=== PATIENT | male | born 1945 | race Caucasian/White ===

== ENCOUNTER → 2016-09-28 | Outpatient (CLI) | payer MEDICARE, BC ==
[2016-09-28 13:25] LABS: INR 2.1 (<1.1); Prothrombin Time 20.5 sec (9.0-12.0)
[2016-09-28 14:56] LABS: Hepatitis C Virus IgG Index 0.06
[2016-09-28 15:35] LABS: Hepatitis C Virus IgG Ab Negative (Negative)
== END | disposition home or self-care (01) ==
LOC: LABWHC1 12:52
PROVIDERS: ATTEND Family Medicine
DX: E29.1 Testicular hypofunction (principal); Z79.01 Long term (current) use of anticoagulants; Z72.9 Problem related to lifestyle, unspecified
CPT/HCPCS: 36415; 84403; 85610; 86803

== ENCOUNTER → 2016-11-17 | Outpatient (CLI) | payer MEDICARE, BC ==
--- NOTE | 2016-11-17 08:35 | US ---
EXAMINATION TYPE: US duplex aorta DATE OF EXAM: 11/17/2016 7:28 AM COMPARISON: NONE CLINICAL HISTORY: Z13.16 encounter for screening for cardiovascular. EXAM MEASUREMENTS: Abdominal Aorta: Proximal: 2.4 x 2.4cm Mid: 1.7 x 1.9cm Distal: obscured by overlying bowel Bifurcation: obscured by overlying bowel Technical limitations, limited examination. No evidence of AAA at this time, as visualized. Distal/bi furcation obscured by overlying bowel content IMPRESSION: WITHIN THE LIMITS OF THIS EXAMINATION, NO AORTIC ANEURYSM IS IDENTIFIED.
== END | disposition home or self-care (01) ==
LOC: RADUSWWP 07:01
PROVIDERS: ATTEND Family Medicine
DX: Z13.6 Encounter for screening for cardiovascular disorders (principal)
CPT/HCPCS: 93979

== ENCOUNTER → 2016-11-23 | Outpatient (CLI) | payer MEDICARE, BC ==
[2016-11-23 12:44] LABS: INR 2.1 (<1.1)
[2016-11-23 22:04] LABS: Hemoglobin A1C 7.5 % (4.2-6.1)
== END ==
LOC: LABWHC1 12:20
PROVIDERS: ATTEND Family Medicine
DX: E11.9 Type 2 diabetes mellitus without complications (principal); E03.9 Hypothyroidism, unspecified; E29.1 Testicular hypofunction; Z51.81 Encounter for therapeutic drug level monitoring; Z79.01 Long term (current) use of anticoagulants
CPT/HCPCS: 36415; 83036; 84403; 84439; 84443; 85610

== ENCOUNTER → 2017-02-19 | Outpatient (CLI) | payer MEDICARE, BC ==
[2017-02-19 14:34] LABS: INR 3.6 (<1.1); Prothrombin Time 34.6 sec (9.0-12.0)
== END | disposition home or self-care (01) ==
LOC: LABWHC1 13:52
PROVIDERS: ATTEND Family Medicine
DX: E78.00 Pure hypercholesterolemia, unspecified (principal); E03.9 Hypothyroidism, unspecified; J45.40 Moderate persistent asthma, uncomplicated; Z79.01 Long term (current) use of anticoagulants
CPT/HCPCS: 36415; 80061; 84439; 84443; 84450; 84460; 85610

== ENCOUNTER → 2017-03-12 | Outpatient (CLI) | payer MEDICARE, BC ==
[2017-03-12 15:26] LABS: INR 1.7 (<1.2); Prothrombin Time 16.1 sec (9.0-12.0)
[2017-03-12 22:05] LABS: Hemoglobin A1C 7.8 % (4.2-6.1)
== END | disposition home or self-care (01) ==
LOC: LABWHC1 14:46
PROVIDERS: ATTEND Family Medicine
DX: E03.9 Hypothyroidism, unspecified (principal); E11.9 Type 2 diabetes mellitus without complications; Z79.01 Long term (current) use of anticoagulants
CPT/HCPCS: 36415; 83036; 84439; 84443; 85610

== ENCOUNTER → 2017-03-21 | Outpatient (CLI) | payer MEDICARE, BC ==
[2017-03-21 13:41] LABS: Non-African American GFR(MDRD) >60 (>60 ml/min/1.73 sqM)
== END ==
LOC: LABWHC1 13:09
PROVIDERS: ATTEND Family Medicine
DX: M54.5 Low back pain (principal)
CPT/HCPCS: 36415; 82565

== ENCOUNTER → 2017-03-22 | Outpatient (CLI) | payer MEDICARE, BC | LOC: RADMRIMAIN 11:30 | PROVIDERS: ATTEND Family Medicine | DX: Z53.9 Procedure and treatment not carried out, unspecified reason (principal) ==

== ENCOUNTER → 2017-04-09 | Outpatient (CLI) | payer MEDICARE, BC ==
[2017-04-09 15:30] LABS: INR 2.1 (<1.2); Prothrombin Time 20.1 sec (9.0-12.0)
== END | disposition home or self-care (01) ==
LOC: LABWHC1 15:05
PROVIDERS: ATTEND Family Medicine
DX: E29.1 Testicular hypofunction (principal)
CPT/HCPCS: 36415; 84153; 84403; 85610

== ENCOUNTER 2017-06-07 16:13 | Inpatient (IN) | payer MEDICARE, BC ==
--- NOTE | 2017-06-07 17:43 | ED ---
Extremity Problem HPI - General Chief complaint: Extremity Problem,Nontraumatic Stated complaint: Cellulitis Time Seen by Provider: 06/07/17 16:52 Source: patient, RN notes reviewed Mode of arrival: wheelchair Limitations: no limitations - History of Present Illness Initial comments: This a 72-year-old male present emergency Department chief complaint right leg cellulitis. Patient states she's had extensive issues with his lower legs and goes a wound center regular basis over the last 7-8 years. Patient states that he was to Look somewhat states symptoms are worsening. Patient states that he has redness from his toes always to his thigh. Patient states it is felt warm no actual fever no chills. Patient states that he always has seen wounds as leg. Patient states that he has wrapped. 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 Patient states that he also has a Meet filter. Patient denies any chest pain or shortness breath. - Related Data Home Medications Medication Instructions Recorded Confirmed Acetaminophen Tab [Tylenol] 650 mg PO Q6H PRN 12/29/13 06/07/17 Albuterol Inhaler [Ventolin 2 puff INHALATION Q4HR PRN 12/29/13 06/07/17 Inhaler] Budesonide/Formoterol Fumarate 2 puff INHALATION BID 12/29/13 06/07/17 [Symbicort 160-4.5 Mcg Inhaler] Diltiazem Cd [Cardizem CD] 180 mg PO DAILY 12/29/13 06/07/17 Furosemide [Lasix] 80 mg PO DAILY 12/29/13 06/07/17 Hydrochlorothiazide [Hydrodiuril] 25 mg PO DAILY 12/29/13 06/07/17 Hydrocodone/Acetaminophen [Vicodin 1 tab PO Q6HR PRN 12/29/13 06/07/17 5-300 mg Tablet] Levothyroxine Sodium [Synthroid] 150 mcg PO DAILY 12/29/13 06/07/17 Loratadine [Claritin] 10 mg PO DAILY PRN 12/29/13 06/07/17 Metolazone [Zaroxolyn] 2.5 mg PO MOFR 12/29/13 06/07/17 Omeprazole [PriLOSEC] 20 mg PO AC-BRKFST 12/29/13 06/07/17 Potassium Chloride [Klor-Con 10] 20 meq PO BID 12/29/13 06/07/17 Spironolactone [Aldactone] 25 mg PO DAILY 12/29/13 06/07/17 Warfarin [Coumadin] 7.5 mg PO DAILY 12/29/13 06/07/17 metFORMIN HCL [Glucophage] 1,000 mg PO BID 12/29/13 06/07/17 Montelukast [Singulair] 10 mg PO HS 12/06/15 06/07/17 Cephalexin [Keflex] 500 mg PO Q6HR 06/04/17 06/07/17 Baclofen 10 mg PO TID PRN 06/07/17 06/07/17 Testosterone Unknown 1 injection IM Q14D 06/07/17 06/07/17 Allergies Allergy/AdvReac Type Severity Reaction Status Date / Time codeine Allergy Unknown Verified 06/07/17 17:36 iodine Allergy Anaphylaxis Verified 06/07/17 17:36 latex Allergy Unknown Verified 06/07/17 17:36 shellfish derived Allergy Anaphylaxis Verified 06/07/17 17:36 Review of Systems ROS Statement: Those systems with pertinent positive or pertinent negative responses have been documented in the HPI. ROS Other: All systems not noted in ROS Statement are negative. Past Medical History Past Medical History: Asthma, Cancer, Diabetes Mellitus, Deep Vein Thrombosis ( DVT), GERD/Reflux, Hyperlipidemia, Hypertension, Osteoarthritis (OA), Pulmonary Embolus (PE), Skin Disorder, Thyroid Disorder Additional Past Medical History / Comment(s): migraines, seasonal allergies, SOB with activity, sinus, hx cellulitis, neuropathy, blood clots, clotting disorder-Factor V- Liden History of Any Multi-Drug Resistant Organisms: MRSA Date of last positivie culture/infection: 2012 MDRO Source:: bilateral legs Past Surgical History: Cholecystectomy, Hernia Repair Additional Past Surgical History / Comment(s): colonoscopy, basal cell carcinoma from scalp, nasal/sinus, meet filter Past Anesthesia/Blood Transfusion Reactions: No Reported Reaction Past Psychological History: No Psychological Hx Reported Smoking Status: Former smoker Past Alcohol Use History: Rare Past Drug Use History: None Reported - Past Family History Mother Family Medical History: Coronary Artery Disease (CAD), Rheumatoid Arthritis (RA) Additional Family Medical History / Comment(s): age 70 heart problems Father Additional Family Medical History / Comment(s): age 72 General Exam Limitations: no limitations General appearance: alert, in no apparent distress Head exam: Present: atraumatic, normocephalic, normal inspection Respiratory exam: Present: normal lung sounds bilaterally. Absent: respiratory distress, wheezes, rales, rhonchi, stridor Cardiovascular Exam: Present: regular rate, normal rhythm, normal heart sounds. Absent: systolic murmur, diastolic murmur, rubs, gallop, clicks Extremities exam: Present: other (There is erythema from just proximal to the knee to the toes pulses are palpable there. 1+, there is moderate swelling of the entire leg on the right the left there is small open wound to the right lower leg anterior surface) Skin exam: Present: warm, dry, intact, normal color. Absent: rash Course Vital Signs 06/07/17 16:35 Temperature 98.3 F Pulse Rate 79 Respiratory 18 Rate Blood Pressure 136/79 O2 Sat by Pulse 97 Oximetry Medical Decision Making - Lab Data Result diagrams: 06/07/17 18:15 06/07/17 18:15 Lab Results 06/07/17 06/07/17 06/07/17 Range/Units 18:15 18:15 18:15 WBC 10.8 H (3.8-10.6) k/uL RBC 5.10 (4.30-5.90) m/uL Hgb 13.6 (13.0-17.5) gm/dL Hct 43.9 (39.0-53.0) % MCV 86.1 (80.0-100.0) fL MCH 26.7 (25.0-35.0) pg MCHC 31.0 (31.0-37.0) g/dL RDW 18.4 H (11.5-15.5) % Plt Count 347 (150-450) k/uL Neutrophils % 82 % Lymphocytes % 8 % Monocytes % 4 % Eosinophils % 3 % Basophils % 1 % Neutrophils # 8.8 H (1.3-7.7) k/uL Lymphocytes # 0.9 L (1.0-4.8) k/uL Monocytes # 0.4 (0-1.0) k/uL Eosinophils # 0.3 (0-0.7) k/uL Basophils # 0.1 (0-0.2) k/uL Anisocytosis Slight Sodium 137 (137-145) mmol/L Potassium 5.1 (3.5-5.1) mmol/L Chloride 99 (98-107) mmol/L Carbon Dioxide 25 (22-30) mmol/L Anion Gap 13 mmol/L BUN 14 (9-20) mg/dL Creatinine 0.90 (0.66-1.25) mg/dL Est GFR (MDRD) Af Amer >60 (>60 ml/min/1.73 sqM) Est GFR (MDRD) Non-Af >60 (>60 ml/min/1.73 sqM) Glucose 137 H (74-99) mg/dL Plasma Lactic Acid Christopher 2.3 H* (0.7-2.0) mmol/L Calcium 9.2 (8.4-10.2) mg/dL Total Bilirubin 0.5 (0.2-1.3) mg/dL AST 19 (17-59) U/L ALT 32 (21-72) U/L Alkaline Phosphatase 106 (38-126) U/L Total Protein 6.9 (6.3-8.2) g/dL Albumin 3.4 L (3.5-5.0) g/dL Disposition Clinical Impression: Cellulitis, Failure of outpatient treatment Disposition: ADMITTED IP TO THIS HOSP Condition: Fair Referrals: Tatyana Mora MD [Primary Care Provider] - 1-2 days
--- NOTE | 2017-06-07 18:18 | US ---
EXAMINATION TYPE: US venous doppler duplex LE RT DATE OF EXAM: 06/07/2017 5:59 PM COMPARISON: 03/16/2014 CLINICAL HISTORY: Pain. Right leg edema SIDE PERFORMED: Right TECHNIQUE: The lower extremity deep venous system is examined utilizing real time linear array sonog luisa with graded compression, doppler sonography and color-flow sonography. VESSELS IMAGED: External Iliac Vein (EIV) Common Femoral Vein Deep Femoral Vein Greater Saphenous Vein * Femoral Vein Popliteal Vein Small Saphenous Vein * Proximal Calf Veins (* superficial vessels) Right leg edema hx of blood clots has green field filter in right leg on blood thinners Factor 5 diso rder Right Leg: Appearance of Chronic DVT vs acute IMPRESSION: Femoral and popliteal veins are irregular with variable wall filling defects consistent w ith chronic deep venous thrombosis. I do not see acute deep venous thrombosis. This appears similar t o old exam.
[2017-06-07 18:25] LABS: Anisocytosis Slight; Basophils # (A) 0.1 k/uL (0-0.2); Basophils % (A) 1 %; CH 28.1; CHCM 32.8; Eosinophils # (A) 0.3 k/uL (0-0.7); Eosinophils % (A) 3 %; HCT 43.9 % (39.0-53.0); HDW 3.03; HGB 13.6 gm/dL (13.0-17.5); Luc # (Auto) 0.24; Luc % (Auto) 2; Lymphocytes # (A) 0.9 k/uL (1.0-4.8); Lymphocytes % (A) 8 %; MCH 26.7 pg (25.0-35.0); MCV 86.1 fL (80.0-100.0); Mean Platelet Volume 7.8; Monocytes # (A) 0.4 k/uL (0-1.0); Monocytes % (A) 4 %; Neutrophils # (A) 8.8 k/uL (1.3-7.7); Neutrophils % (A) 82 %; RDW 18.4 % (11.5-15.5); WBC 10.8 k/uL (3.8-10.6); WBC (Perox) 10.98
[2017-06-07 18:38] LABS: Anion Gap 13 mmol/L; Blood Urea Nitrogen 14 mg/dL (9-20); Carbon Dioxide 25 mmol/L (22-30); Chloride 99 mmol/L (98-107); Glucose 137 mg/dL (74-99); Potassium 5.1 mmol/L (3.5-5.1); Sodium 137 mmol/L (137-145)
[2017-06-07 18:39] LABS: ALT 32 U/L (21-72); AST 19 U/L (17-59); Alkaline Phosphatase 106 U/L (38-126); Calcium 9.2 mg/dL (8.4-10.2); Non-African American GFR(MDRD) >60 (>60 ml/min/1.73 sqM); Total Bilirubin 0.5 mg/dL (0.2-1.3); Total Protein 6.9 g/dL (6.3-8.2)
[2017-06-07] MEDS ORDERED: VANCOMYCIN IV PER PHARMACY 1 EACH MISC MISCELLANE PRN (18:40)
[2017-06-07] MEDS ORDERED: AMPICILLIN-SULBACTAM 3 GM in SODIUM CHLORIDE 0.9% 100 ML IVPB STA (18:40)
[2017-06-07] MEDS ORDERED: VANCOMYCIN 2,000 MG in SODIUM CHLORIDE 0.9% 500 ML IVPB STA (18:48)
[2017-06-07] MEDS ORDERED: HYDROcodone/APAP 5-325MG 1 EACH TAB PO PRN (18:55)
[2017-06-07] MEDS ORDERED: NALOXONE 0.4 MG/ML 1 ML VIAL IV PRN (18:55)
[2017-06-07] MEDS ORDERED: ONDANSETRON 4 MG/2 ML VIAL IVP PRN (18:55)
[2017-06-07 18:57] LABS: INR 1.3 (<1.2); Prothrombin Time 12.9 sec (9.0-12.0)
[2017-06-07 19:06] LABS: Partial Thromboplastin Time 19.6 sec (22.0-30.0)
[2017-06-07 19:54] LABS: Glucose,Whole Blood 117 mg/dL (75-99)
[2017-06-07] MEDS ORDERED: LORATADINE 10 MG TAB PO PRN (19:57)
[2017-06-07] MEDS ORDERED: BACLOFEN 10 MG TAB PO PRN (19:57)
[2017-06-07] MEDS: MONTELUKAST 10 MG TAB PO SCH (20:41)
[2017-06-07] MEDS ORDERED: HYDROCODONE PO PRN (20:57)
[2017-06-07] MEDS ORDERED: ACETAMINOPHEN PO PRN (20:57)
--- NOTE | 2017-06-07 22:04 | HP ---
HISTORY AND PHYSICAL CHIEF COMPLAINTS: Pain and swelling of the right leg and cellulitis. HISTORY OF PRESENT ILLNESS: This 72-year-old gentleman with a past medical history of asthma, history of DVT , history of GERD, hypertension, hyperlipidemia, chronic cellulitis, pulmonary embolism being followed by Dr. Tatyana Mora in the outpatient setting is complaining of significant pain and swelling of the right leg. The patient had wraps around it from wound care by Dr. Ratliff, but apparently the patient is having worsening irritation and burning and the patient has to take wrapping off on the right side and some patient also noting increasing erythema and redness of the right leg and the patient came to [facility] and admitted for further evaluation and treatment. Patient also has a factor V deficiency, apparently. There is no history of any fever, rigors. No headache, loss of consciousness or seizures. PAST MEDICAL: Asthma, DVT, history of hypertension, hyperlipidemia, history of DJD, history of MRSA. MEDICATIONS PRIOR TO ADMISSION: Include home medications are: 1. Testosterone. 2. Hydrocodone 1 tablet every 6 hours p.r.n. 3. Baclofen 10 mg t.i.d. p.r.n. 4. Glucophage 1000 mg p.o. b.i.d. 5. Coumadin 7.5 mg p.o. daily. 6. Aldactone 25 mg p.o. daily. 7. Klor-Con 20 mg p.o. b.i.d. 8. Prilosec 20 mg a.c. breakfast. 9. Singulair 10 mg p.o. q.h.s. 10.Zaroxolyn 2.5 mg Sunday and Sunday. 11.Claritin 10 mg daily p.r.n. 12.Synthroid 150 mcg p.o. daily. 13.HydroDIURIL 25 mcg p.o. daily. 14.Lasix 80 mg p.o. daily. 15.Cardizem CD 180 mg daily. 16.Keflex 500 mg every 6 hours. 17.Symbicort 160/4.5, 2 puffs b.i.d. 18.Albuterol inhaler 2 puffs q.4 p.r.n. 19.Tylenol 650 every 6 hours p.r.n. ALLERGIES: CODEINE, IODINE, LATEX AND SHELLFISH. FAMILY HISTORY: History of coronary artery disease and rheumatoid arthritis in the family. SOCIAL HISTORY: Previous history of smoking. No history of smoking or alcohol intake. REVIEW OF SYSTEMS: ENT: No diminished hearing, diminished vision. CARDIOVASCULAR: No angina, palpitations. RESPIRATORY: No cough, hemoptysis. GI: No nausea. : No dysuria. NERVOUS: No numbness or weakness. ALLERGY/IMMUNOLOGY: No asthma or hay fever. MUSCULOSKELETAL: As mentioned earlier. HEMATOLOGY/ONCOLOGY: No history of anemia. ENDOCRINE: Hypothyroidism and diabetes mellitus. CONSTITUTIONAL: As mentioned earlier. DERMATOLOGY: Negative. RHEUMATOLOGY: Negative. PSYCHIATRY: As mentioned earlier. PHYSICAL EXAM: The patient is alert and oriented x3. Pulse 54, blood pressure 120/96, respiration 18, temperature 98.2, pulse ox 98% room air. HEENT: Conjunctivae normal. Oral mucosa moist. NECK: No jugular venous distention. No lymph node enlargement. CARDIOVASCULAR: S1, S2 muffled. No S3. No S4. RESPIRATORY: Breath sounds diminished in the bases. No rhonchi. No crackles. ABDOMEN: Soft, obese, nontender. No mass palpable. LEGS: Bilateral leg edema and right leg has typical erythema which is radiating up to the thigh, tender and also some discharge in open area in the mid lower leg, also. NERVOUS SYSTEM: Higher functions as mentioned. Moves all 4 limbs. No focal motor deficits. LYMPHATICS: No lymphadenopathy in neck or axillae. SKIN: As mentioned earlier. LABS: WBC 10.8, hemoglobin is 13.6, INR 1.3. Lactic acid 2.3. ASSESSMENT: 1. Acute right leg cellulitis with failure of outpatient treatment. 2. Diabetes type 2. 3. Obesity. 4. Chronic cellulitis of the legs. 5. History of deep venous thrombosis. 6. Coumadin monitoring. 7. Hypertension. 8. Hyperlipidemia. 9. History of pulmonary embolism. 10.History of asthma. RECOMMENDATION AND DISCUSSION: In this 72-year-old gentleman who presented with multiple complex medical issues , will monitor the patient closely. Continue the current management, symptomatic treatment. I would recommend broad-spectrum IV antibiotics, local treatment. Also recommend to obtain the cultures. Resume the home medications. Monitor creatinine closely. The patient also received Keflex in the outpatient setting, so the current presentation might indicate the failure of outpatient treatment and vancomycin because of the past medical history of MRSA. Will consult Vascular Surgery, Infectious Disease and continue to monitor. Continue the rest of the medications. Will also recommend Accu- Cheks a.c. and at bedtime and scale also. Otherwise, prognosis guarded. Discussed with the patient, who understands and agrees. Further recommendations to follow. Discussed with the staff. DVT prophylaxis. A copy of this dictation will be forwarded to Dr. Tatyana Mora, who is the primary physician. Will hold the Aldactone and potassium supplements because of the high normal potassium. They are just repeating labs, also. MMODL / IJN: [id number] / MTDD
[2017-06-07] MEDS: INSULIN LISPRO (humaLOG) 300 UNIT/3 ML VIAL SQ SCH (22:26)
[2017-06-07 23:05] LABS: Hemoglobin A1C 7.2 % (4.2-6.1)
[2017-06-08] MEDS: AMPICILLIN-SULBACTAM 3 GM in SODIUM CHLORIDE 0.9% 100 ML IVPB SCH ×2 (00:11→10:30)
[2017-06-08 05:42] VITALS: BMI 42.2
[2017-06-08] MEDS: LEVOTHYROXINE 75 MCG TAB PO SCH (05:56)
[2017-06-08] MEDS ORDERED: VANCOMYCIN 2,000 MG in SODIUM CHLORIDE 0.9% 500 ML IVPB SCH ×2 (06:00→22:00)
[2017-06-08] MEDS: metFORMIN 500 MG TAB PO SCH ×2 (07:29→17:32)
[2017-06-08] MEDS: METOLAZONE 2.5 MG TAB PO SCH (07:29)
[2017-06-08] MEDS: PANTOPRAZOLE 40 MG TABLET PO SCH (07:29)
[2017-06-08] MEDS: HYDROCHLOROTHIAZIDE 25 MG TAB PO SCH (07:29)
[2017-06-08] MEDS: FUROSEMIDE 80 MG TAB PO SCH (07:29)
[2017-06-08] MEDS: DILTIAZEM CD 180 MG CAP.ER.24H PO SCH (07:30)
[2017-06-08 07:53] LABS: Appearance,Urine Clear (Clear); Bilirubin,Urine Negative (Negative); Glucose,Urine (UA) Negative (Negative); Ketones,Urine Negative (Negative); Leukocyte Esterase,Urine Negative (Negative); Nitrite,Urine Negative (Negative); Protein,Urine Negative (Negative); UA Billing (MACRO vs. MICRO) CHEM; Urobilinogen,Urine <2.0 mg/dL (<2.0)
[2017-06-08 08:12] LABS: INR 1.6 (<1.2); Prothrombin Time 15.1 sec (9.0-12.0)
[2017-06-08 08:15] LABS: Anisocytosis Slight; Basophils # (A) 0.1 k/uL (0-0.2); Basophils % (A) 1 %; CH 27.5; CHCM 31.9; Eosinophils # (A) 0.3 k/uL (0-0.7); Eosinophils % (A) 3 %; HCT 42.2 % (39.0-53.0); HDW 2.99; HGB 12.9 gm/dL (13.0-17.5); Hypochromasia Slight; Luc # (Auto) 0.23; Luc % (Auto) 2; Lymphocytes # (A) 0.9 k/uL (1.0-4.8); Lymphocytes % (A) 9 %; MCH 26.6 pg (25.0-35.0); MCHC 30.7 g/dL (31.0-37.0); MCV 86.9 fL (80.0-100.0); Mean Platelet Volume 7.3; Monocytes # (A) 0.6 k/uL (0-1.0); Monocytes % (A) 6 %; Neutrophils % (A) 79 %; RBC 4.85 m/uL (4.30-5.90); RDW 18.3 % (11.5-15.5); WBC 10.1 k/uL (3.8-10.6); WBC (Perox) 10.17
[2017-06-08 08:30] LABS: Anion Gap 9 mmol/L; Blood Urea Nitrogen 13 mg/dL (9-20); Calcium 8.9 mg/dL (8.4-10.2); Carbon Dioxide 30 mmol/L (22-30); Chloride 101 mmol/L (98-107); Glucose 123 mg/dL (74-99); Non-African American GFR(MDRD) >60 (>60 ml/min/1.73 sqM); Potassium 5.3 mmol/L (3.5-5.1); Sodium 140 mmol/L (137-145)
[2017-06-08] MEDS: INSULIN LISPRO (humaLOG) 300 UNIT/3 ML VIAL SQ SCH ×4 (08:43→22:17)
[2017-06-08] MEDS: ALBUTEROL NEBULIZED 2.5 MG/3 ML INHALATION PRN ×2 (11:50→19:28)
[2017-06-08] MEDS: SYMBICORT 160-4.5 MCG INHALER INHALATION SCH ×2 (11:51→19:28)
[2017-06-08 11:56] LABS: Glucose,Whole Blood 144 mg/dL (75-99)
--- NOTE | 2017-06-08 15:02 | PN ---
PROGRESS NOTE DATE OF SERVICE: 06/08/2017 INTERIM HISTORY: This 72-year-old gentleman who was admitted with pain and swelling of the right leg and cellulitis was started on broad-spectrum IV antibiotics. No chest pain. No palpitations. No fever. The culture has been negative so far. EXAM: Alert, oriented x3. Pulse 77, blood pressure 120/74, respiration 18, temperature 97.9, pulse ox 90% on room air. HEENT: Conjunctivae normal NECK: No jugular venous distention. CARDIOVASCULAR: S1, S2. RESPIRATORY: Breath sounds diminished in the bases. No rhonchi, no crackles. ABDOMEN: Soft. LEGS: Bilateral leg edema. Right leg cellulitis also. NERVOUS SYSTEM: No focal deficits. LABS: WBC 10.2, hemoglobin 12.8, INR 1.6, sodium 140, potassium 5.3. ASSESSMENT: 1. Acute right leg cellulitis with failure of outpatient treatment. 2. Diabetes mellitus type 2. 3. Obesity. 4. Chronic cellulitis of the leg. 5. History of deep venous thrombosis. 6. Coumadin monitoring. 7. Hypertension. 8. Hyperlipidemia. 9. History of pulmonary embolus. 10.History of asthma. RECOMMENDATIONS AND DISCUSSION: In this 72-year-old gentleman who presented with multiple complex medical issues. Will monitor the patient closely. Continue IV antibiotics. Follow the cultures. We will follow the patient closely with Infectious Disease. Guarded prognosis. Further recommendations to follow. MMODL / MEERAN: [id number] /
[2017-06-08] MEDS: ceFAZolin 2 GM in SODIUM CHLORIDE 0.9% 100 ML IVPB SCH ×2 (17:32→23:41)
[2017-06-08 17:57] LABS: Glucose,Whole Blood 123 mg/dL (75-99)
[2017-06-08] MEDS: WARFARIN 7.5 MG TAB PO SCH (18:43)
[2017-06-08 20:22] LABS: Glucose,Whole Blood 138 mg/dL (75-99)
[2017-06-08] MEDS: ACETAMINOPHEN TAB 325 MG TAB PO PRN (22:17)
[2017-06-08] MEDS: MONTELUKAST 10 MG TAB PO SCH (22:17)
[2017-06-09] MEDS: LEVOTHYROXINE 75 MCG TAB PO SCH (05:56)
[2017-06-09] MEDS: SYMBICORT 160-4.5 MCG INHALER INHALATION SCH ×2 (07:21→18:47)
[2017-06-09 07:41] LABS: INR 1.5 (<1.2); Prothrombin Time 14.7 sec (9.0-12.0)
--- NOTE | 2017-06-09 07:42 | CONS ---
CONSULTATION DATE OF SERVICE: 06/08/2017. REASON FOR CONSULTATION: Right lower extremity cellulitis. HISTORY OF PRESENT ILLNESS: The patient is a 72-year-old male with a past medical history significant for chronic venous stasis ulcer to the lower extremity for which the patient is under the care of Dr. Ratliff in the [facility] wound Care Center. The patient did have swelling and redness to the right leg that apparently started last week and then the patient was seen on the Wound Care Center on Sunday where the patient was advised admission to hospital for IV antibiotic therapy. The patient refused. He was started on some oral Keflex. However in the next few days, he continued to have some swelling and more redness of the right leg. The patient did have some dull aching pain 2 to 3/10 no radiation. The patient did have some superficial ulcerations, but no drainage from it. The patient denies any high-grade fever, rigors or chills. Subsequently the patient was evaluated by the ER physician. The patient did have a lower extremity Doppler which did show femoral and popliteal veins compatible with chronic deep venous thrombosis, with no evidence of any acute DVT. Patient did not have any elevated white count. However he did have no fever. The patient was started on vancomycin and Unasyn and admitted to the hospital. infectious disease was consulted for further recommendation regarding antibiotic therapy. REVIEW OF SYSTEMS: Constitutional positive for weakness. No chills. Eyes no complaint. ENT no complaint. Respiratory no complaint., Cardiovascular no complaint. Genitourinary no complaint. Respiratory no complaint. Musculoskeletal no complaint. Integumentary: As per HPI. PSYCHOLOGICAL: No complaint. Endocrine: No complaint. Neurological. No complaint. PAST MEDICAL HISTORY: Significant for chronic venous disease, especially to both lower legs, history of DVT, diabetes mellitus, Gastroesophageal reflux disease, hypertension, hyperlipidemia , osteoarthritis, pulmonary embolism, hypothyroidism, factor 5 Leiden deficiency. History of wound infection. PAST SURGICAL HISTORY: Colonoscopy, cholecystectomy, hernia repair and basal cell carcinoma resection from scalp, [place] filter placement. SOCIAL HISTORY: Remote history of smoking. No drinking or drug use. FAMILY HISTORY: Mother with history of rheumatoid arthritis, coronary disease. ALLERGIES: TO CODEINE, IODINE AND LATEX. MEDICATIONS: The patient is currently on: 1. Tylenol. 2. [place]. 3. Ventolin. 4. Baclofen. 5. Symbicort. 6. Unasyn. 7. Vancomycin. 8. Cardizem. 9. Lasix. 10.Hydrochlorothiazide. 11.Humalog. 12.Synthroid. 13.Claritin. 14.Glucophage. 15.Zaroxolyn. 16.Singulair. 17.Narcan. 18.Zofran. 19.Protonix. 20.Coumadin. EXAMINATION: Blood pressure is 152/67 with a pulse of 85, temperature 99.2. He is 93% on room air. General description is an elderly male lying in bed in no distress. No tachypnea or aspiration muscle for respiration use. HEENT: Shows no pallor or scleral icterus. Oral mucosa membranes dry. Neck trachea central. No thyromegaly. LUNGS: Unlabored breathing. Clear to auscultation anteriorly. No wheeze or crackles. Heart S1, S2 regular rate and rhythm. Abdomen soft, no tenderness. Right leg with swelling and redness which is mostly diffuse. No evidence of any fluctuation, induration or drainage. Some superficial purulent drainage. Neurological patient is awake, alert, oriented times three. Mood and affect normal. LABS: Hemoglobin is 12.8, white count of 10.1, BUN of 13, creatinine 1.05. UA has been negative. Blood culture obtained currently pending. DIAGNOSTIC IMPRESSION AND PLAN: The patient with acute right lower extremity cellulitis. The patient did have diffuse swelling redness and did have some superficial venous stasis ulcer, likely a streptococcal cellulitis failing outpatient oral Keflex therapy. PLAN: 1. Discontinue Unasyn and vancomycin. 2. Cefazolin 2 g q.8 hours. 3. Aquacel Silver to the open area followed by an Zeus wrap from just above to below the knee and monitor the redness. 4. We will follow up on his clinical condition as well as cultures to further adjust medication if needed. Thank you for this consultation. Will follow this patient along with you. MMODL / IJN: [id number] / MARY JO
[2017-06-09 07:51] LABS: Anisocytosis Slight; Basophils # (A) 0.1 k/uL (0-0.2); Basophils % (A) 1 %; CH 26.8; CHCM 31.5; Eosinophils # (A) 0.3 k/uL (0-0.7); Eosinophils % (A) 4 %; HCT 42.8 % (39.0-53.0); HDW 2.93; HGB 13.2 gm/dL (13.0-17.5); Hypochromasia Slight; Luc # (Auto) 0.29; Luc % (Auto) 3; Lymphocytes # (A) 0.9 k/uL (1.0-4.8); Lymphocytes % (A) 9 %; MCH 26.5 pg (25.0-35.0); MCHC 30.9 g/dL (31.0-37.0); MCV 85.7 fL (80.0-100.0); Mean Platelet Volume 6.7; Monocytes # (A) 0.5 k/uL (0-1.0); Monocytes % (A) 5 %; Neutrophils # (A) 7.8 k/uL (1.3-7.7); Neutrophils % (A) 79 %; RBC 4.99 m/uL (4.30-5.90); RDW 16.9 % (11.5-15.5); WBC 9.8 k/uL (3.8-10.6); WBC (Perox) 9.91
[2017-06-09 07:55] LABS: Anion Gap 10 mmol/L; Blood Urea Nitrogen 16 mg/dL (9-20); Carbon Dioxide 31 mmol/L (22-30); Chloride 95 mmol/L (98-107); Glucose 139 mg/dL (74-99); Non-African American GFR(MDRD) >60 (>60 ml/min/1.73 sqM); Potassium 4.2 mmol/L (3.5-5.1); Sodium 136 mmol/L (137-145)
[2017-06-09 08:06] LABS: Glucose,Whole Blood 162 mg/dL (75-99)
[2017-06-09] MEDS: PANTOPRAZOLE 40 MG TABLET PO SCH (09:22)
[2017-06-09] MEDS: FUROSEMIDE 80 MG TAB PO SCH (09:22)
[2017-06-09] MEDS: DILTIAZEM CD 180 MG CAP.ER.24H PO SCH (09:22)
[2017-06-09] MEDS: metFORMIN 500 MG TAB PO SCH ×2 (09:22→17:34)
[2017-06-09] MEDS: ceFAZolin 2 GM in SODIUM CHLORIDE 0.9% 100 ML IVPB SCH ×3 (09:22→23:14)
[2017-06-09] MEDS: HYDROCHLOROTHIAZIDE 25 MG TAB PO SCH (09:23)
[2017-06-09] MEDS: INSULIN LISPRO (humaLOG) 300 UNIT/3 ML VIAL SQ SCH ×4 (09:33→20:54)
[2017-06-09 12:02] LABS: Glucose,Whole Blood 152 mg/dL (75-99)
--- NOTE | 2017-06-09 17:33 | PN ---
PROGRESS NOTE DATE OF SERVICE: 06/09/17 INTERVAL HISTORY: This 72-year-old gentleman admitted with acute cellulitis. The patient is on Kefzol at this time. Cultures are negative so far. No chest pain. No palpitations. No fever. No shortness of breath. PHYSICAL EXAM: Alert and oriented times three. Pulse is 108, blood pressure 159/90, respiration 18, temperature 97.9, pulse ox 92% on room air. HEENT: Conjunctivae normal. Oral mucosa moist. Neck is no jugular venous distention. No carotid bruit. No lymph node enlargement. Cardiovascular systems: S1, S2 muffled. Respiration breath sounds diminished in the bases. No rhonchi, no crackles. ABDOMEN: Soft, nontender. Legs cellulitis present. Central nervous system: No focal deficits. LABS: WBC 9.8, hemoglobin 13.2, INR 1.5. ASSESSMENT: 1. Acute right leg cellulitis with failure of outpatient treatment. 2. Diabetes type 2. 3. Obesity. 4. Chronic cellulitis of the legs. 5. History of deep vein thrombosis. 6. Coumadin monitoring. RECOMMENDATIONS AND DISCUSSION: Recommend to continue current medications. Management and symptomatic treatment. Otherwise, continue with antibiotics. Guarded prognosis. Further recommendations to follow. MMODL / IJN: [id number] /
[2017-06-09] MEDS: WARFARIN 7.5 MG TAB PO SCH (17:34)
[2017-06-09 17:37] LABS: Glucose,Whole Blood 142 mg/dL (75-99)
[2017-06-09 20:33] LABS: Glucose,Whole Blood 125 mg/dL (75-99)
[2017-06-09] MEDS: MONTELUKAST 10 MG TAB PO SCH (21:09)
[2017-06-09] MEDS: ACETAMINOPHEN TAB 325 MG TAB PO PRN (21:23)
--- NOTE | 2017-06-09 22:54 | PN ---
PROGRESS NOTE DATE OF SERVICE: 06/09/2017 REASON FOR FOLLOWUP: Right lower extremity cellulitis. INTERVAL HISTORY: The patient is afebrile. He has been breathing comfortably. The right leg swelling and redness is improved. Denies any chest pain, shortness of breath, cough or abdominal pain or any diarrhea. PHYSICAL EXAMINATION: Blood pressure 159/90 with a pulse of 108, temperature 97.9. He is 92% on room air. GENERAL DESCRIPTION: An elderly male lying in bed in no distress. RESPIRATORY SYSTEM: Unlabored breathing. Clear to auscultation anteriorly. HEART: S1, S2. Regular rate and rhythm. ABDOMEN: Soft. No tenderness. RIGHT LEG: Swelling and redness has improved. LABS: Hemoglobin is 13.2, white count of 9.8. BUN of 16, creatinine 1.10. Blood culture has been negative so far. DIAGNOSTIC IMPRESSION AND PLAN: Patient with right lower extremity cellulitis with diffuse swelling and redness, likely streptococcal disease. The patient will continue on cefazolin 2 g q.8 hours. Recommend an Zeus wrap to keep some of the swelling down and will re-evaluate the patient tomorrow. MMODL / IJN: [id number] /
[2017-06-10] MEDS: LEVOTHYROXINE 75 MCG TAB PO SCH (05:41)
[2017-06-10 07:04] LABS: INR 1.5 (<1.2); Prothrombin Time 14.7 sec (9.0-12.0)
[2017-06-10 07:06] LABS: Anisocytosis Slight; Basophils # (A) 0.1 k/uL (0-0.2); Basophils % (A) 1 %; CH 26.7; CHCM 31.1; Eosinophils # (A) 0.3 k/uL (0-0.7); Eosinophils % (A) 3 %; HCT 45.4 % (39.0-53.0); HDW 2.87; Hypochromasia Moderate; Luc # (Auto) 0.23; Luc % (Auto) 3; Lymphocytes % (A) 11 %; MCH 26.6 pg (25.0-35.0); MCHC 30.8 g/dL (31.0-37.0); MCV 86.3 fL (80.0-100.0); Mean Platelet Volume 6.7; Monocytes # (A) 0.4 k/uL (0-1.0); Monocytes % (A) 5 %; Neutrophils # (A) 7.2 k/uL (1.3-7.7); Neutrophils % (A) 78 %; RBC 5.27 m/uL (4.30-5.90); RDW 16.8 % (11.5-15.5); WBC 9.3 k/uL (3.8-10.6); WBC (Perox) 8.74
[2017-06-10 07:08] LABS: Anion Gap 15 mmol/L; Blood Urea Nitrogen 20 mg/dL (9-20); Calcium 9.2 mg/dL (8.4-10.2); Carbon Dioxide 27 mmol/L (22-30); Chloride 95 mmol/L (98-107); Glucose 149 mg/dL (74-99); Non-African American GFR(MDRD) 60 (>60 ml/min/1.73 sqM); Potassium 4.1 mmol/L (3.5-5.1); Sodium 137 mmol/L (137-145)
[2017-06-10] MEDS: SYMBICORT 160-4.5 MCG INHALER INHALATION SCH ×2 (07:21→20:05)
[2017-06-10] MEDS: INSULIN LISPRO (humaLOG) 300 UNIT/3 ML VIAL SQ SCH ×4 (08:02→21:21)
[2017-06-10 08:03] LABS: Glucose,Whole Blood 144 mg/dL (75-99)
[2017-06-10] MEDS: FUROSEMIDE 80 MG TAB PO SCH (08:03)
[2017-06-10] MEDS: metFORMIN 500 MG TAB PO SCH ×2 (08:03→17:37)
[2017-06-10] MEDS: HYDROCHLOROTHIAZIDE 25 MG TAB PO SCH (08:03)
[2017-06-10] MEDS: DILTIAZEM CD 180 MG CAP.ER.24H PO SCH (08:03)
[2017-06-10] MEDS: PANTOPRAZOLE 40 MG TABLET PO SCH (08:03)
[2017-06-10] MEDS: ceFAZolin 2 GM in SODIUM CHLORIDE 0.9% 100 ML IVPB SCH ×2 (08:10→17:39)
[2017-06-10] MEDS: ACETAMINOPHEN TAB 325 MG TAB PO PRN (10:58)
[2017-06-10] MEDS: ALBUTEROL NEBULIZED 2.5 MG/3 ML INHALATION PRN ×3 (11:33→20:05)
[2017-06-10 12:05] LABS: Glucose,Whole Blood 166 mg/dL (75-99)
[2017-06-10] MEDS: WARFARIN 7.5 MG TAB PO SCH (17:37)
[2017-06-10 17:49] LABS: Glucose,Whole Blood 119 mg/dL (75-99)
--- NOTE | 2017-06-10 17:52 | PN ---
PROGRESS NOTE DATE OF SERVICE: 06/10/2017 This 72-year-old gentleman admitted with acute cellulitis of the right leg is on IV antibiotics. No chest pain. No palpitations. No fever. Patient improved significantly. PHYSICAL EXAM: Alert, oriented, pulse 82, blood pressure 126/72, respiration 18, temperature 98.1, pulse ox 97% on room air. HEENT: Conjunctivae normal. NECK: No jugular venous distention. CARDIOVASCULAR: S1, S2. RESPIRATORY: Breath sounds diminished in the bases. A few scattered rhonchi. No crackles. ABDOMEN: Soft. LEGS: Bilateral leg swelling, right leg cellulitis also present which is improving, slightly tender. No discharge. NERVOUS SYSTEM: No focal deficits. LABS: CBC within normal. INR 1.5. Other labs are noted. ASSESSMENT: 1. Acute right leg cellulitis with failure of outpatient treatment. 2. Diabetes mellitus type 2. 3. Obesity. 4. Chronic cellulitis of the leg. 5. History of deep vein thrombosis. 6. Coumadin monitoring. RECOMMENDATIONS AND DISCUSSION: I recommend to continue current management and symptomatic treatment. Continue with IV antibiotics. Follow the cultures. Guarded prognosis. Further recommendations to follow. MMODL / IJN: [id number] /
[2017-06-10 20:14] LABS: Glucose,Whole Blood 143 mg/dL (75-99)
[2017-06-10] MEDS: MONTELUKAST 10 MG TAB PO SCH (21:20)
--- NOTE | 2017-06-10 22:04 | PN ---
PROGRESS NOTE DATE OF SERVICE: 06/10/2017 REASON FOR FOLLOWUP: Right lower extremity cellulitis. INTERVAL HISTORY: The patient is afebrile, has been breathing comfortably. Denies significant chest pain or shortness of breath. No cough. No abdominal pain. Right leg swelling and redness has improved. EXAMINATION: Blood pressure is 126/72 with a pulse of 82, temperature of 98.7, he is 93% on room air. General description is an elderly male lying in bed in no distress. Respiratory system unlabored breathing. Clear to auscultation, heart S1, S2. Regular rate and rhythm. Abdomen: Soft, no tenderness. The right leg swelling has improved. LABS: Hemoglobin 14, white count 9.3 with a BUN of 20, creatinine 1.20. DIAGNOSTIC IMPRESSION AND PLAN: Patient with acute right lower extremity cellulitis with diffuse swelling and redness likely streptococcal disease responding to cefazolin. PLAN: Plan to continue to finish therapy with p.o. Keflex along with Zeus wrap to keep the swelling down. MMODL / IJN: [id number] /
[2017-06-11] MEDS: ceFAZolin 2 GM in SODIUM CHLORIDE 0.9% 100 ML IVPB SCH ×2 (00:20→08:28)
[2017-06-11] MEDS: ACETAMINOPHEN TAB 325 MG TAB PO PRN (02:20)
[2017-06-11] MEDS: LEVOTHYROXINE 75 MCG TAB PO SCH (05:48)
[2017-06-11 07:38] LABS: Glucose,Whole Blood 132 mg/dL (75-99)
[2017-06-11 08:00] VITALS: BP 138/77; RESP 18; TEMP 97.5
[2017-06-11] MEDS: SYMBICORT 160-4.5 MCG INHALER INHALATION SCH (08:01)
[2017-06-11] MEDS: ALBUTEROL NEBULIZED 2.5 MG/3 ML INHALATION PRN ×2 (08:01→11:33)
[2017-06-11] MEDS: HYDROCHLOROTHIAZIDE 25 MG TAB PO SCH (08:13)
[2017-06-11] MEDS: METOLAZONE 2.5 MG TAB PO SCH (08:13)
[2017-06-11] MEDS: DILTIAZEM CD 180 MG CAP.ER.24H PO SCH (08:13)
[2017-06-11] MEDS: FUROSEMIDE 80 MG TAB PO SCH (08:14)
[2017-06-11] MEDS: metFORMIN 500 MG TAB PO SCH (08:14)
[2017-06-11] MEDS: PANTOPRAZOLE 40 MG TABLET PO SCH (08:14)
[2017-06-11] MEDS: INSULIN LISPRO (humaLOG) 300 UNIT/3 ML VIAL SQ SCH ×2 (08:14→11:41)
[2017-06-11 09:11] LABS: Anisocytosis Slight; Basophils # (A) 0.1 k/uL (0-0.2); Basophils % (A) 1 %; CH 26.7; CHCM 31.2; Eosinophils # (A) 0.3 k/uL (0-0.7); Eosinophils % (A) 3 %; HCT 46.4 % (39.0-53.0); HDW 2.86; HGB 14.5 gm/dL (13.0-17.5); Hypochromasia Slight; Luc # (Auto) 0.29; Luc % (Auto) 3; Lymphocytes # (A) 1.2 k/uL (1.0-4.8); Lymphocytes % (A) 12 %; MCH 26.8 pg (25.0-35.0); MCHC 31.1 g/dL (31.0-37.0); Monocytes # (A) 0.4 k/uL (0-1.0); Monocytes % (A) 5 %; Neutrophils # (A) 7.5 k/uL (1.3-7.7); Neutrophils % (A) 77 %; RDW 16.6 % (11.5-15.5); WBC 9.9 k/uL (3.8-10.6)
[2017-06-11 09:12] LABS: INR 1.7 (<1.2); Prothrombin Time 16.4 sec (9.0-12.0)
[2017-06-11 09:17] LABS: Anion Gap 15 mmol/L; Blood Urea Nitrogen 22 mg/dL (9-20); Calcium 9.4 mg/dL (8.4-10.2); Carbon Dioxide 31 mmol/L (22-30); Chloride 93 mmol/L (98-107); Glucose 151 mg/dL (74-99); Non-African American GFR(MDRD) >60 (>60 ml/min/1.73 sqM); Potassium 4.2 mmol/L (3.5-5.1); Sodium 139 mmol/L (137-145)
--- NOTE | 2017-06-11 10:41 | PN ---
PROGRESS NOTE DATE OF SERVICE: 06/11/2017 REASON FOR FOLLOWUP: Right lower extremity cellulitis. INTERVAL HISTORY: The patient is afebrile, has been breathing comfortably. Denies any chest pain, shortness of breath or cough. No abdominal pain. Right leg swelling and redness has improved. PHYSICAL EXAMINATION: Blood pressure 138/77 with a pulse of 92, temperature 97.5. he is 92% on room air. General description is an elderly male lying in bed, in no distress. RESPIRATORY SYSTEM: Unlabored breathing, clear to auscultation anteriorly. HEART: S1, S2. Regular rate and rhythm. ABDOMEN: Soft, no tenderness. Right leg swelling and redness has improved. LABS: Hemoglobin is 14.5, white count of 9.9 with a BUN of 22, creatinine 1.16. DIAGNOSTIC IMPRESSION AND PLAN: Patient with right lower extremity cellulitis with diffuse swelling, redness likely streptococcal disease. Patient did show overall improvement on cefazolin. He will be switched over to Keflex 500 mg q.6 hours for 10 days. Script has been sent to the pharmacy along with Aquacel Silver dressing. MMODL / IJN: [id number] /
[2017-06-11 11:46] LABS: Glucose,Whole Blood 124 mg/dL (75-99)
[2017-06-11 12:25] VITALS: PULSE 88
--- NOTE | 2017-06-11 14:34 | P.DS ---
Providers Date of admission: 06/07/17 19:07 Expected date of discharge: 06/11/17 Attending physician: Johnny Herndon Consults: 06/07/17 20:51 Consult Physician Routine Consulting Provider: Charisma Silva Consult Reason/Comments: cellulitis Do you want consulting provider notified?: Yes Primary care physician: Tatyana Mora [facility] Course: Final Diagnoses: 1. Right lower extremity cellulitis with suspected streptococcal disease, failed outpatient treatment 2. Diabetes mellitus type 2 3. Obesity. 4.Chronic cellulitis of leg Hospital course this a 72-year-old gentleman admitted with acute cellulitis of the right leg, failed outpatient treatment. Evaluated by infectious disease. Treated with IV antibiotics with significant clinical improvement. Cleared by infectious disease for discharge. Patient is being discharged home in a stable condition with guarded prognosis. The impression and plan of care has been dictated as directed. : I performed a history and examination of this patient, discussed the same with the dictator. I agree with the dictator's note ,documented as a scribe. Any additional findings or plans will be noted. Patient Condition at Discharge: Stable Plan - Discharge Summary New Discharge Prescriptions: New Cephalexin [Keflex] 500 mg PO Q6HR #40 cap Continue Diltiazem Cd [Cardizem CD] 180 mg PO DAILY Warfarin [Coumadin] 7.5 mg PO DAILY Potassium Chloride [Klor-Con 10] 20 meq PO BID Levothyroxine Sodium [Synthroid] 150 mcg PO DAILY Furosemide [Lasix] 80 mg PO DAILY metFORMIN HCL [Glucophage] 1,000 mg PO BID Budesonide/Formoterol Fumarate [Symbicort 160-4.5 Mcg Inhaler] 2 puff INHALATION BID Spironolactone [Aldactone] 25 mg PO DAILY Omeprazole [PriLOSEC] 20 mg PO AC-BRKFST Metolazone [Zaroxolyn] 2.5 mg PO MOFR Albuterol Inhaler [Ventolin Hfa Inhaler] 2 puff INHALATION Q4HR PRN PRN Reason: Shortness Of Breath Loratadine [Claritin] 10 mg PO DAILY PRN PRN Reason: Sinus Symptoms Acetaminophen Tab [Tylenol] 650 mg PO Q6H PRN PRN Reason: Pain Hydrocodone/Acetaminophen [Vicodin 5-300 mg Tablet] 1 tab PO Q6HR PRN PRN Reason: Pain Montelukast [Singulair] 10 mg PO HS Baclofen 10 mg PO TID PRN PRN Reason: Muscle Spasm Testosterone Cypionate [Depo-Testosterone] 100 mg IM Q14D Discontinued Hydrochlorothiazide [Hydrodiuril] 25 mg PO DAILY Cephalexin [Keflex] 500 mg PO Q6HR Discharge Medication List Acetaminophen Tab [Tylenol] 650 mg PO Q6H PRN 12/29/13 [History] Albuterol Inhaler [Ventolin Hfa Inhaler] 2 puff INHALATION Q4HR PRN 12/29/13 [ History] Budesonide/Formoterol Fumarate [Symbicort 160-4.5 Mcg Inhaler] 2 puff INHALATION BID 12/29/13 [History] Diltiazem Cd [Cardizem CD] 180 mg PO DAILY 12/29/13 [History] Furosemide [Lasix] 80 mg PO DAILY 12/29/13 [History] Hydrocodone/Acetaminophen [Vicodin 5-300 mg Tablet] 1 tab PO Q6HR PRN 12/29/13 [ History] Levothyroxine Sodium [Synthroid] 150 mcg PO DAILY 12/29/13 [History] Loratadine [Claritin] 10 mg PO DAILY PRN 12/29/13 [History] Metolazone [Zaroxolyn] 2.5 mg PO MOFR 12/29/13 [History] Omeprazole [PriLOSEC] 20 mg PO AC-BRKFST 12/29/13 [History] Potassium Chloride [Klor-Con 10] 20 meq PO BID 12/29/13 [History] Spironolactone [Aldactone] 25 mg PO DAILY 12/29/13 [History] Warfarin [Coumadin] 7.5 mg PO DAILY 12/29/13 [History] metFORMIN HCL [Glucophage] 1,000 mg PO BID 12/29/13 [History] Montelukast [Singulair] 10 mg PO HS 12/06/15 [History] Baclofen 10 mg PO TID PRN 06/07/17 [History] Testosterone Cypionate [Depo-Testosterone] 100 mg IM Q14D 06/08/17 [History] Cephalexin [Keflex] 500 mg PO Q6HR #40 cap 06/11/17 [Rx] Follow up Appointment(s)/Referral(s): Tatyana Mora MD [Primary Care Provider] - 06/14/17 10:45 am Charisma Silva MD [STAFF PHYSICIAN] - 06/21/17 11:15 am Ambulatory/Diagnostic Orders: Prothrombin Time INR [LAB.AMB] Time Frame: 3 Days, Location: Determined By Patient Patient Instructions/Handouts: Cephalexin (By mouth) Activity/Diet/Wound Care/Special Instructions: wound care & Antibx. as per ID continue with wound care center as prior to admission DIet: consit. Carb, accu cheks achs, maintain log and take to F/u with PCP
== END 2017-06-11 15:16 | disposition home or self-care (01) | DRG 603 ==
LOC: EC 16:13 → 5MS5E 19:07
PROVIDERS: ADMIT Hospitalist; ATTEND Hospitalist
DX: L03.115 Cellulitis of right lower limb (principal); D68.51 Activated protein C resistance; E11.622 Type 2 diabetes mellitus with other skin ulcer; Z68.41 Body mass index [BMI] 40.0-44.9, adult; L97.819 Non-pressure chronic ulcer of other part of right lower leg with unspecified severity; I87.2 Venous insufficiency (chronic) (peripheral); E03.9 Hypothyroidism, unspecified; E66.9 Obesity, unspecified; E78.5 Hyperlipidemia, unspecified; I10 Essential (primary) hypertension; J45.909 Unspecified asthma, uncomplicated; K21.9 Gastro-esophageal reflux disease without esophagitis; Z79.01 Long term (current) use of anticoagulants; Z79.51 Long term (current) use of inhaled steroids; Z79.84 Long term (current) use of oral hypoglycemic drugs; Z79.899 Other long term (current) drug therapy; Z85.828 Personal history of other malignant neoplasm of skin; Z86.14 Personal history of Methicillin resistant Staphylococcus aureus infection; Z86.711 Personal history of pulmonary embolism; Z86.718 Personal history of other venous thrombosis and embolism; Z87.891 Personal history of nicotine dependence; Z88.5 Allergy status to narcotic agent; Z88.8 Allergy status to other drugs, medicaments and biological substances; Z91.040 Latex allergy status; B95.5 Unspecified streptococcus as the cause of diseases classified elsewhere
CPT/HCPCS: 36415; 80048; 80053; 81003; 83036; 83605; 85025; 85610; 85730; 87040; 94640; 99212; 99284

== ENCOUNTER → 2017-06-14 | Outpatient (CLI) | payer MEDICARE, BC ==
[2017-06-14 14:53] LABS: Anisocytosis Slight; CH 27.4; CHCM 31.4; HCT 45.2 % (39.0-53.0); HDW 2.85; HGB 13.9 gm/dL (13.0-17.5); Hypochromasia Slight; MCHC 30.8 g/dL (31.0-37.0); MCV 87.8 fL (80.0-100.0); Mean Platelet Volume 7.3; RBC 5.15 m/uL (4.30-5.90); RDW 17.6 % (11.5-15.5); WBC 11.1 k/uL (3.8-10.6)
[2017-06-14 15:03] LABS: Anion Gap 14 mmol/L; Blood Urea Nitrogen 23 mg/dL (9-20); Calcium 9.8 mg/dL (8.4-10.2); Carbon Dioxide 30 mmol/L (22-30); Chloride 97 mmol/L (98-107); Glucose 193 mg/dL (74-99); Non-African American GFR(MDRD) 60 (>60 ml/min/1.73 sqM); Potassium 4.6 mmol/L (3.5-5.1); Sodium 141 mmol/L (137-145)
== END | disposition home or self-care (01) ==
LOC: LAB 14:14
PROVIDERS: ATTEND Family Medicine
DX: L03.90 Cellulitis, unspecified (principal); Z79.01 Long term (current) use of anticoagulants
CPT/HCPCS: 80048; 84439; 84443; 85027

== ENCOUNTER → 2017-08-13 | Outpatient (CLI) | payer MEDICARE, BC | END | disposition home or self-care (01) | LOC: LABWHC1 14:56 | PROVIDERS: ATTEND Family Medicine | DX: J45.40 Moderate persistent asthma, uncomplicated (principal); E03.9 Hypothyroidism, unspecified; E29.1 Testicular hypofunction | CPT/HCPCS: 84439; 84443; 84403; 36415; G0103 ==

== ENCOUNTER → 2017-09-20 | Outpatient (CLI) | payer MEDICARE, BC ==
[2017-09-20 13:06] LABS: INR 2.3 (<1.2); Prothrombin Time 20.9 sec (9.0-12.0)
[2017-09-20 20:13] LABS: Hemoglobin A1C 7.5 % (4.0-6.0)
--- NOTE | 2017-09-21 15:07 | XR ---
Bilateral feet HISTORY: Feet pain 3 views of the left and right foot are submitted on a total of 6 images and correlated to prior right foot dated 02/09/2014 There are vascular calcifications, correlate for possible history of diabetes. Bone mineralization is reduced. Degenerative change present at the metatarsophalangeal joints of the first digits. There is soft tissue swelling present. No fracture or dislocation. Spurring present at the intertarsal joints . There are plantar calcaneal spurs. IMPRESSION: Correlate for cellulitis and diabetes, cannot exclude abscess.
== END | disposition home or self-care (01) ==
LOC: RADXRMAIN 12:01
PROVIDERS: ATTEND Family Medicine
DX: M79.672 Pain in left foot (principal); M79.671 Pain in right foot; E11.9 Type 2 diabetes mellitus without complications; Z79.01 Long term (current) use of anticoagulants
CPT/HCPCS: 36415; 83036; 85610

== ENCOUNTER 2017-10-04 11:59 | Inpatient (IN) | payer MEDICARE, BC ==
[2017-10-04] MEDS ORDERED: IPRATROPIUM-ALBUTEROL 3 ML NEB INHALATION STA (12:37)
--- NOTE | 2017-10-04 12:39 | ED ---
General Adult HPI - General Chief complaint: Extremity Problem,Nontraumatic Stated complaint: Cellulitis Time Seen by Provider: 10/04/17 12:12 Source: patient Mode of arrival: wheelchair Limitations: physical limitation - History of Present Illness Initial comments: This is a 72-year-old male who presents with a chief complaint of lower extremity cellulitis and a cough which has been worsening over the last 6 days. The patient has failed outpatient treatment for lower extremity cellulitis, and has developed a wound on the right lateral lower leg. He has a history of wounds on his lower extremity which required treatment at a wound care clinic. He was evaluated by his primary care provider earlier today and stated his oxygen saturation was low. He was treated approximately 30 minutes prior to his arrival in the ED with a nebulizer treatment which improved his breathing. He admits to fevers over the last week in addition to his cough. He denies nausea, vomiting, diarrhea, abdominal pain. He does not have a history of congestive heart failure, but has a history of DVT/PE and a Factor V Leiden mutation. The patient is concerned because the right lower leg cellulitis is now extending proximal to the knee and much more edematous than the left leg. - Related Data Home Medications Medication Instructions Recorded Confirmed Acetaminophen Tab [Tylenol] 325 mg PO Q6H PRN 12/29/13 10/04/17 Albuterol Inhaler [Ventolin Hfa 2 puff INHALATION RT-Q4H PRN 12/29/13 10/04/17 Inhaler] Budesonide/Formoterol Fumarate 2 puff INHALATION RT-BID 12/29/13 10/04/17 [Symbicort 160-4.5 Mcg Inhaler] Metolazone [Zaroxolyn] 2.5 mg PO MOFR 12/29/13 10/04/17 Omeprazole [PriLOSEC] 20 mg PO AC-BRKFST 12/29/13 10/04/17 Spironolactone [Aldactone] 25 mg PO DAILY 12/29/13 10/04/17 Montelukast [Singulair] 10 mg PO HS 12/06/15 10/04/17 Baclofen 10 mg PO DAILY PRN 06/07/17 10/04/17 Atorvastatin [Lipitor] 10 mg PO HS 10/04/17 10/04/17 Clotrimazole/Betameth Cream 1 applic TOPICAL BID 10/04/17 10/04/17 [Lotrisone] Cyclobenzaprine [Flexeril] 5 mg PO TID PRN 10/04/17 10/04/17 Diltiazem Cd [Cardizem Cd] 480 mg PO HS 10/04/17 10/04/17 Fluticasone Nasal Magness [Flonase 1 spray EA NOSTRIL DAILY 10/04/17 10/04/17 Nasal Magness] Furosemide [Lasix] 40 mg PO DAILY 10/04/17 10/04/17 HYDROcodone/APAP 5-325MG [[place] 1 tab PO Q6HR PRN 10/04/17 10/04/17 5-325] Hydrochlorothiazide [Hydrodiuril] 25 mg PO DAILY 10/04/17 10/04/17 Hydrocortisone Valerate 1 applic TOPICAL BID 10/04/17 10/04/17 Levothyroxine Sodium 150 mcg PO DAILY 10/04/17 10/04/17 Linagliptin [Tradjenta] 5 mg PO DAILY 10/04/17 10/04/17 Potassium Chloride [Klor-Con 20] 40 meq PO BID 10/04/17 10/04/17 Sulfamethox-Tmp 800-160Mg [Bactrim 1 tab PO BID 10/04/17 10/04/17 DS 800-160 mg] Terbinafine [LamISIL] 250 mg PO DAILY 10/04/17 10/04/17 Warfarin [Coumadin] 2.5 mg PO HS 10/04/17 10/04/17 Warfarin [Coumadin] 5 mg PO HS 10/04/17 10/04/17 metFORMIN HCL 1,000 mg PO AC-BID 10/04/17 10/04/17 Allergies Allergy/AdvReac Type Severity Reaction Status Date / Time iodine Allergy Anaphylaxis Verified 10/04/17 12:29 latex Allergy Unknown Verified 10/04/17 12:29 lisinopril Allergy Unknown Verified 10/04/17 12:29 shellfish derived Allergy Anaphylaxis Verified 10/04/17 12:29 codeine AdvReac Rapid Verified 10/04/17 12:29 Heart Rate Review of Systems ROS Statement: Those systems with pertinent positive or pertinent negative responses have been documented in the HPI. ROS Other: All systems not noted in ROS Statement are negative. Past Medical History Past Medical History: Blood Disorder Additional Past Medical History / Comment(s): migraines, seasonal allergies, SOB with activity, hx cellulitis, neuropathy, clotting disorder-Factor V- Liden History of Any Multi-Drug Resistant Organisms: MRSA Date of last positivie culture/infection: 2012 MDRO Source:: bilateral legs Past Surgical History: Cholecystectomy, Hernia Repair Additional Past Surgical History / Comment(s): colonoscopy, basal cell carcinoma from scalp, nasal/sinus, meet filter Past Anesthesia/Blood Transfusion Reactions: No Reported Reaction Past Psychological History: No Psychological Hx Reported Smoking Status: Former smoker Past Alcohol Use History: Rare Past Drug Use History: None Reported - Past Family History Mother Family Medical History: Coronary Artery Disease (CAD), Rheumatoid Arthritis (RA) Additional Family Medical History / Comment(s): age 70 heart problems Father Family Medical History: No Reported History Additional Family Medical History / Comment(s): age 72 General Exam Limitations: physical limitation General appearance: alert, in no apparent distress Head exam: Present: atraumatic, normocephalic, normal inspection Neck exam: Present: normal inspection. Absent: tenderness, meningismus, lymphadenopathy Respiratory exam: Present: wheezes, rhonchi, other (breathing appears labored) Cardiovascular Exam: Present: regular rate, normal rhythm, normal heart sounds. Absent: systolic murmur, diastolic murmur, rubs, gallop, clicks GI/Abdominal exam: Present: distended Extremities exam: Present: full ROM, tenderness (significant edema with venous stasis changes noted in bilateral lower extremities. Erythema on the right lower extremity extends proxmially above the knee and distally to the toes. There is a circular, yellow-crusted lesion on the lateral right lower extremity that is approximately 10cm in diameter.), pedal edema, calf tenderness, other ( pedal pulses were confimed with doppler. ) Back exam: Present: normal inspection Neurological exam: Present: alert, oriented X3, CN II-XII intact Psychiatric exam: Present: normal affect, normal mood Skin exam: Present: warm, dry, intact, normal color. Absent: rash Course Vital Signs 10/04/17 10/04/17 10/04/17 12:01 13:20 13:28 Temperature 99.4 F Pulse Rate 81 88 76 Respiratory 22 Rate Blood Pressure 134/64 O2 Sat by Pulse 96 Oximetry Medical Decision Making - Lab Data Result diagrams: 10/04/17 13:00 10/04/17 13:00 Lab Results 10/04/17 10/04/17 10/04/17 Range/Units 13:00 13:00 13:00 WBC 12.3 H (3.8-10.6) k/uL RBC 4.97 (4.30-5.90) m/uL Hgb 13.0 (13.0-17.5) gm/dL Hct 41.9 (39.0-53.0) % MCV 84.3 (80.0-100.0) fL MCH 26.2 (25.0-35.0) pg MCHC 31.1 (31.0-37.0) g/dL RDW 17.7 H (11.5-15.5) % Plt Count 314 (150-450) k/uL Neutrophils % 86 % Lymphocytes % 5 % Monocytes % 5 % Eosinophils % 2 % Basophils % 0 % Neutrophils # 10.5 H (1.3-7.7) k/uL Lymphocytes # 0.6 L (1.0-4.8) k/uL Monocytes # 0.6 (0-1.0) k/uL Eosinophils # 0.2 (0-0.7) k/uL Basophils # 0.1 (0-0.2) k/uL Hypochromasia Slight Anisocytosis Slight PT (9.0-12.0) sec INR (<1.2) APTT (22.0-30.0) sec Sodium 137 (137-145) mmol/L Potassium 4.9 (3.5-5.1) mmol/L Chloride 95 L (98-107) mmol/L Carbon Dioxide 28 (22-30) mmol/L Anion Gap 14 mmol/L BUN 17 (9-20) mg/dL Creatinine 1.10 (0.66-1.25) mg/dL Est GFR (MDRD) Af Amer >60 (>60 ml/min/1.73 sqM) Est GFR (MDRD) Non-Af >60 (>60 ml/min/1.73 sqM) Glucose 221 H (74-99) mg/dL Plasma Lactic Acid Christopher 3.5 H* (0.7-2.0) mmol/L Calcium 9.3 (8.4-10.2) mg/dL Total Bilirubin 0.5 (0.2-1.3) mg/dL AST 24 (17-59) U/L ALT 34 (21-72) U/L Alkaline Phosphatase 108 (38-126) U/L Troponin I (0.000-0.034) ng/mL NT-Pro-B Natriuret Pep pg/mL Total Protein 7.0 (6.3-8.2) g/dL Albumin 3.7 (3.5-5.0) g/dL 10/04/17 10/04/17 10/04/17 Range/Units 13:00 13:00 13:00 WBC (3.8-10.6) k/uL RBC (4.30-5.90) m/uL Hgb (13.0-17.5) gm/dL Hct (39.0-53.0) % MCV (80.0-100.0) fL MCH (25.0-35.0) pg MCHC (31.0-37.0) g/dL RDW (11.5-15.5) % Plt Count (150-450) k/uL Neutrophils % % Lymphocytes % % Monocytes % % Eosinophils % % Basophils % % Neutrophils # (1.3-7.7) k/uL Lymphocytes # (1.0-4.8) k/uL Monocytes # (0-1.0) k/uL Eosinophils # (0-0.7) k/uL Basophils # (0-0.2) k/uL Hypochromasia Anisocytosis PT 14.7 H (9.0-12.0) sec INR 1.6 H (<1.2) APTT 29.2 (22.0-30.0) sec Sodium (137-145) mmol/L Potassium (3.5-5.1) mmol/L Chloride (98-107) mmol/L Carbon Dioxide (22-30) mmol/L Anion Gap mmol/L BUN (9-20) mg/dL Creatinine (0.66-1.25) mg/dL Est GFR (MDRD) Af Amer (>60 ml/min/1.73 sqM) Est GFR (MDRD) Non-Af (>60 ml/min/1.73 sqM) Glucose (74-99) mg/dL Plasma Lactic Acid Christopher (0.7-2.0) mmol/L Calcium (8.4-10.2) mg/dL Total Bilirubin (0.2-1.3) mg/dL AST (17-59) U/L ALT (21-72) U/L Alkaline Phosphatase (38-126) U/L Troponin I <0.012 (0.000-0.034) ng/mL NT-Pro-B Natriuret Pep 775 pg/mL Total Protein (6.3-8.2) g/dL Albumin (3.5-5.0) g/dL Disposition Clinical Impression: Cellulitis of right leg, Failure of outpatient treatment, Venous (peripheral) insufficiency, Asthma, URI (upper respiratory infection) Disposition: ADMITTED IP TO THIS HOSP Condition: Fair Referrals: Tatyana Mora MD [Primary Care Provider] - 1-2 days
[2017-10-04 13:28] LABS: Anisocytosis Slight; Basophils # (A) 0.1 k/uL (0-0.2); Basophils % (A) 0 %; Eosinophils # (A) 0.2 k/uL (0-0.7); Eosinophils % (A) 2 %; HCT 41.9 % (39.0-53.0); Hypochromasia Slight; Lymphocytes # (A) 0.6 k/uL (1.0-4.8); Lymphocytes % (A) 5 %; MCH 26.2 pg (25.0-35.0); MCHC 31.1 g/dL (31.0-37.0); MCV 84.3 fL (80.0-100.0); Mean Platelet Volume 6.8; Monocytes # (A) 0.6 k/uL (0-1.0); Monocytes % (A) 5 %; Neutrophils # (A) 10.5 k/uL (1.3-7.7); Neutrophils % (A) 86 %; Platelet Count 314 k/uL (150-450); RBC 4.97 m/uL (4.30-5.90); RDW 17.7 % (11.5-15.5); WBC 12.3 k/uL (3.8-10.6)
[2017-10-04 13:38] LABS: INR 1.6 (<1.2); Partial Thromboplastin Time 29.2 sec (22.0-30.0); Prothrombin Time 14.7 sec (9.0-12.0)
[2017-10-04 13:39] LABS: ALT 34 U/L (21-72); AST 24 U/L (17-59); Albumin 3.7 g/dL (3.5-5.0); Alkaline Phosphatase 108 U/L (38-126); Anion Gap 14 mmol/L; Blood Urea Nitrogen 17 mg/dL (9-20); Calcium 9.3 mg/dL (8.4-10.2); Carbon Dioxide 28 mmol/L (22-30); Chloride 95 mmol/L (98-107); Glucose 221 mg/dL (74-99); Potassium 4.9 mmol/L (3.5-5.1); Sodium 137 mmol/L (137-145); Total Bilirubin 0.5 mg/dL (0.2-1.3)
[2017-10-04] MEDS ORDERED: VANCOMYCIN IV PER PHARMACY 1 EACH MISC MISCELLANE PRN (13:43)
[2017-10-04] MEDS ORDERED: cefTRIAXone IN SWFI 1,000 MG/10 ML SYRINGE IVP STA (13:47)
--- NOTE | 2017-10-04 14:04 | XR ---
EXAMINATION TYPE: XR chest 2V DATE OF EXAM: 10/04/2017 COMPARISON: Chest x-ray June 20, 2016 HISTORY: Productive cough for a few weeks. TECHNIQUE: Frontal and lateral views of the chest are obtained. FINDINGS: Frontal view was repeated due to lower artifact related to shielding. There is chronic par enchymal change with persistent small right pleural effusion or pleural thickening inferolaterally on frontal view less well seen on lateral view. There is persistent patchy bibasilar opacity favoring scarring and/or atelectasis as is not significantly changed from prior. The cardiac silhouette size i s enlarged with atherosclerotic aorta. The osseous structures are demineralized. There is multileve l spurring in the spine. IMPRESSION: Chronic parenchymal changes with chronic basilar opacities favoring scarring and/or atel ectasis. No definitive new suspicious focal infiltrate.
[2017-10-04] MEDS ORDERED: SODIUM CHLORIDE 0.9% 1,000 ML IV ONE ×2 (14:09→14:15)
[2017-10-04] MEDS ORDERED: NALOXONE 0.4 MG/ML 1 ML VIAL IV PRN (14:17)
[2017-10-04] MEDS ORDERED: BACLOFEN 10 MG TAB PO PRN (14:18)
[2017-10-04] MEDS ORDERED: HYDROcodone/APAP 5-325MG 1 EACH TAB PO PRN (14:18)
[2017-10-04] MEDS ORDERED: CYCLOBENZAPRINE 5 MG TAB PO PRN (14:18)
[2017-10-04] MEDS ORDERED: IPRATROPIUM-ALBUTEROL 3 ML NEB INHALATION PRN (14:20)
[2017-10-04] MEDS ORDERED: VANCOMYCIN 2,500 MG in SODIUM CHLORIDE 0.9% 500 ML IVPB ONE (14:30)
[2017-10-04 17:06] LABS: Glucose,Whole Blood 179 mg/dL (75-99)
[2017-10-04] MEDS: metFORMIN 500 MG TAB PO SCH (17:28)
[2017-10-04] MEDS: INSULIN ASPART 100 UNIT/ML 1 ML 10 ML VIAL SQ SCH ×2 (17:29→22:24)
[2017-10-04 19:13] LABS: Appearance,Urine Clear (Clear); Bilirubin,Urine Negative (Negative); Blood,Urine Negative (Negative); Color,Urine Yellow; Glucose,Urine (UA) Negative (Negative); Ketones,Urine Negative (Negative); Leukocyte Esterase,Urine Negative (Negative); Nitrite,Urine Negative (Negative); PH, Urine 5.5 (5.0-8.0); Protein,Urine Trace (Negative); Specific Gravity,Urine 1.011 (1.001-1.035); Urobilinogen,Urine <2.0 mg/dL (<2.0)
--- NOTE | 2017-10-04 19:30 | HP ---
HISTORY AND PHYSICAL CHIEF COMPLAINT: Pain and swelling of the right leg. HISTORY OF PRESENT ILLNESS: This 72-year-old gentleman with a past medical history of hypothyroidism, history ocular migraines, history of history of Factor V Leiden, asthma, cholecystectomy being followed by Dr. Tatyana Mora in the outpatient setting previously had right leg cellulitis with failure of outpatient treatment. The patient was treated with IV antibiotics and patient improved significantly last year. Staph aureus was grown from the culture, which was MSSA. The currently for the last 2 days, the patient is complaining of significant pain and swelling and discharge of the right leg which has increased significantly and minimal discomfort on the left leg, also. The patient came to [facility], where he was admitted for further evaluation and treatment. There is no history of any fever, rigors. No history of headache, loss consciousness or seizures at this time. PAST MEDICAL HISTORY: History of pneumonia, hypothyroidism, ocular migraines, neuropathy, history of factor V Leiden deficiency. MEDICATIONS: Home medications are: 1. Metformin 1000 mg p.o. b.i.d. 2. Coumadin 5 mg q.h.s., 2.5 mg q.h.s. 3. Lamisil 250 mg p.o. daily. 4. Bactrim DS 1 p.o. b.i.d. 5. Aldactone 25 mg p.o. daily. 6. Klor-Con 40 mg p.o. b.i.d. 7. Prilosec 20 mg a.c. breakfast. 8. Singular 10 mg q.h.s. 9. Zaroxolyn 2.5 mg p.o. Sunday, Sunday. 10.Tradjenta 5 mg p.o. daily. 11.Levothyroxine 150 mcg p.o. daily. 12.Hydrocortisone 1 application topically b.i.d. 13.HydroDIURIL 25 mg p.o. daily. 14.[place] 5 mg every 6 hours p.r.n. 15.Lasix 40 mg p.o. daily. 16.Flonase 1 spray daily. 17.Cardizem CD 480 mg p.o. q.h.s. 18.Flexeril 5 mg p.o. t.i.d. p.r.n. 19.Lotrisone 1 application topically b.i.d. 20.Symbicort 160/4.5, 2 puffs b.i.d. 21.Baclofen 10 mg daily p.r.n. 22.Lipitor 10 mg q.h.s. 23.Ventolin HFA 1-2 puffs q.4h p.r.n. 24.Tylenol 325 mg every 6 hours p.r.n. Allergies are IODINE, LATEX, LASIX, LISINOPRIL, SHELLFISH, CODEINE. Family history of CAD, rheumatoid arthritis in the family. SOCIAL HISTORY: Previous history of smoking. No current occasional alcohol intake. REVIEW OF SYSTEMS: ENT: No diminished hearing, diminished vision. CARDIOVASCULAR: No angina, palpitations. RESPIRATORY: As mentioned earlier. GI: No nausea or vomiting. : No dysuria. NERVOUS: No numbness or weakness. ALLERGY/IMMUNOLOGY: No asthma or hay fever. MUSCULOSKELETAL: As mentioned earlier. HEMATOLOGY/ONCOLOGY: No history of anemia. ENDOCRINE: Diabetes mellitus. CONSTITUTIONAL: As mentioned earlier. DERMATOLOGY: As mentioned earlier. RHEUMATOLOGY: Negative. PSYCHIATRY: As mentioned earlier. PHYSICAL EXAMINATION: Alert and oriented x4. Pulse is 89, blood pressure 184/72, respirations 20, temperature 99.1, pulse ox 92% on room air. HEENT: Conjunctivae normal. Oral mucosa moist. NECK: No jugular venous distention. No carotid bruits. No lymph node enlargement. CARDIOVASCULAR: S1, S2 muffled. No S3, S4. RESPIRATORY: Breath sounds diminished in the bases. ABDOMEN: Soft, obese, nontender. No mass palpable. LEGS: Bilateral leg swelling, significantly more on the right side with hyperpigmentation present. Discharge in areas, also. Pulses diminished bilaterally, also. NERVOUS SYSTEM: Higher functions as mentioned earlier. Moves all 4 limbs. No focal motor or sensory deficits. LYMPHATIC: No lymphadenopathy in neck or axillae. SKIN: No ulcer, rash or bleeding. LABS: WBC 12.3, hemoglobin 13. INR is 1.7. Plasma lactic acid 3.5. ASSESSMENT: 1. Bilateral leg cellulitis, right more than the left. 2. Chronic venous stasis and skin hypertrophy. 3. Increased lactic acid, possible sepsis present on admission. 4. Diabetes mellitus type 2. 5. Hypothyroidism. 6. Ocular migraines. 7. Cellulitis. 8. Peripheral neuropathy. 9. Factor V Leiden deficiency. 10.Coumadin monitoring. 12.History of cholecystectomy. 13.Obesity with a body mass index of 42.2. 14.History of deep venous thrombosis. 15.History of pulmonary embolism. 16.History of asthma. 17.Hyperlipidemia. RECOMMENDATION AND DISCUSSION: In this 72-year-old gentleman who presented with multiple complex medical issues , will monitor the patient closely, continue with the current medical management and symptomatic treatment. Otherwise I would recommend broad-spectrum IV antibiotics, infectious disease evaluation. Continue the rest of the medications. Monitor blood sugars closely. Otherwise obtain cultures. The patient is initially on vancomycin. Monitor the PT/INR closely. A dose of ceftriaxone also been given. Continue the rest of medications. A chest x-ray was done in the ER which showed chronic parenchymal changes with chronic bibasilar opacity. We will monitor the patient closely and see orders for further details. Prognosis guarded. Further recommendations. MMODL / IJN: [id number] / MTDD
[2017-10-04] MEDS: POTASSIUM CHLORIDE ER 20 MEQ TAB.ER PO SCH (20:04)
[2017-10-04] MEDS: ATORVASTATIN 10 MG TAB PO SCH (20:05)
[2017-10-04] MEDS: WARFARIN 7.5 MG TAB PO SCH (20:06)
[2017-10-04] MEDS: MONTELUKAST 10 MG TAB PO SCH (20:07)
[2017-10-04] MEDS: DILTIAZEM CD 240 MG CAP.ER.24H PO SCH (20:08)
[2017-10-04] MEDS: SYMBICORT 160-4.5 MCG INHALER INHALATION SCH (20:22)
[2017-10-04] MEDS: ALBUTEROL NEBULIZED 2.5 MG/3 ML INHALATION PRN (20:34)
[2017-10-04] MEDS ORDERED: WARFARIN 5 MG TAB PO SCH (21:00)
[2017-10-04 21:04] LABS: Glucose,Whole Blood 188 mg/dL (75-99)
[2017-10-05 00:58] LABS: Hemoglobin A1C 7.4 % (4.0-6.0)
[2017-10-05] MEDS: ALPRAZolam 0.25 MG TAB PO PRN (03:43)
[2017-10-05 05:41] LABS: Anisocytosis Slight; Basophils # (A) 0.1 k/uL (0-0.2); Basophils % (A) 1 %; Eosinophils # (A) 0.5 k/uL (0-0.7); Eosinophils % (A) 5 %; HCT 39.4 % (39.0-53.0); HGB 12.1 gm/dL (13.0-17.5); Hypochromasia Slight; Lymphocytes # (A) 0.9 k/uL (1.0-4.8); Lymphocytes % (A) 8 %; MCH 26.4 pg (25.0-35.0); MCHC 30.8 g/dL (31.0-37.0); MCV 85.6 fL (80.0-100.0); Mean Platelet Volume 6.9; Monocytes # (A) 0.5 k/uL (0-1.0); Monocytes % (A) 5 %; Neutrophils # (A) 8.8 k/uL (1.3-7.7); Neutrophils % (A) 79 %; Platelet Count 320 k/uL (150-450); RDW 17.5 % (11.5-15.5); WBC 11.2 k/uL (3.8-10.6)
[2017-10-05] MEDS: LEVOTHYROXINE 75 MCG TAB PO SCH (05:49)
[2017-10-05 05:53] LABS: Anion Gap 10 mmol/L; Blood Urea Nitrogen 16 mg/dL (9-20); Calcium 8.8 mg/dL (8.4-10.2); Carbon Dioxide 28 mmol/L (22-30); Chloride 99 mmol/L (98-107); Glucose 142 mg/dL (74-99); Potassium 4.6 mmol/L (3.5-5.1); Sodium 137 mmol/L (137-145)
[2017-10-05] MEDS ORDERED: VANCOMYCIN 2,250 MG in SODIUM CHLORIDE 0.9% 500 ML IVPB SCH (06:00)
[2017-10-05] MEDS: SYMBICORT 160-4.5 MCG INHALER INHALATION SCH ×2 (07:06→19:46)
[2017-10-05 07:44] LABS: Glucose,Whole Blood 134 mg/dL (75-99)
[2017-10-05] MEDS: metFORMIN 500 MG TAB PO SCH ×2 (08:09→18:05)
[2017-10-05] MEDS: SPIRONOLACTONE 25 MG TAB PO SCH (08:09)
[2017-10-05] MEDS: INSULIN ASPART 100 UNIT/ML 1 ML 10 ML VIAL SQ SCH ×4 (08:09→21:37)
[2017-10-05] MEDS: FUROSEMIDE 40 MG TAB PO SCH (08:09)
[2017-10-05] MEDS: TERBINAFINE 250 MG TAB PO SCH (08:09)
[2017-10-05] MEDS: LINAGLIPTIN 5 MG TABLET PO SCH (08:09)
[2017-10-05] MEDS: METOLAZONE 2.5 MG TAB PO SCH (08:09)
[2017-10-05] MEDS: HYDROCHLOROTHIAZIDE 25 MG TAB PO SCH (08:10)
[2017-10-05] MEDS: FLUTICASONE 50MCG/SPRAY NASAL 16GM EA NOSTRIL SCH (08:10)
[2017-10-05] MEDS: POTASSIUM CHLORIDE ER 20 MEQ TAB.ER PO SCH ×2 (08:10→21:20)
[2017-10-05] MEDS: PANTOPRAZOLE 40 MG TABLET PO SCH (08:10)
[2017-10-05] MEDS: ALBUTEROL NEBULIZED 2.5 MG/3 ML INHALATION PRN (11:02)
[2017-10-05 12:41] LABS: Glucose,Whole Blood 202 mg/dL (75-99)
[2017-10-05 14:02] VITALS: BMI 42.2
[2017-10-05] MEDS: IPRATROPIUM-ALBUTEROL 3 ML NEB INHALATION SCH ×2 (16:21→19:46)
[2017-10-05] MEDS: ceFAZolin IN SWFI 2 GM/20 ML SYRINGE IVP SCH ×2 (16:25→23:04)
[2017-10-05 17:01] LABS: Glucose,Whole Blood 155 mg/dL (75-99)
[2017-10-05] MEDS: methylPREDNISolone SOD SUCCI 40 MG/ML 1 ML VIAL IV SCH ×2 (18:05→23:04)
--- NOTE | 2017-10-05 19:25 | CONS ---
CONSULTATION DATE OF SERVICE: 10/05/2017. REASON FOR CONSULTATION: Right leg wound and cellulitis. HISTORY OF PRESENT ILLNESS: The patient is a 72-year-old male with a past medical history significant for venous stasis ulcer for which the patient follows with Dr. Larios in the [facility] at [facility]. The patient did mention that his wound was all healed up and he was discharged from the Wound Care Center. However, over the last 6 days he noticed to have increased swelling in the right leg. There was some open area on the right anterior fabian area that has been draining some clear fluid. No foul smelling though. The patient also complaining of pain in both legs for the same duration of 6 days, more of a dull aching pain 4-5 out of 10 and no radiation. The patient denies any high-grade fever or chills. He did have a low-grade fever on arrival to the ER. The patient did have elevated white count of 12.3. The patient was evaluated by the ER physician. He did have a culture obtained from the right leg, drainage and blood culture has been obtained. The patient was started on vancomycin in the hospital and ID was consulted for further recommendation regarding antibiotic therapy. REVIEW OF SYSTEMS: Constitutionally positive for weakness. Eyes no complaint. ENT no complaint. Respiratory severe shortness of breath. Cardiovascular no complaint. Genitourinary: No complaint. Gastrointestinal: No complaint. Musculoskeletal no complaint. ENT as per HPI. PSYCHOLOGICAL: No complaint. Endocrine no complaint. Neurological no complaint. MEDICAL HISTORY: Significant for chronic venostasis ulcer, previous history of DVT, diabetes mellitus, gastroesophageal reflux disease, hypertension, hyperlipidemia, osteoarthritis, pulmonary embolism, factor 5 Leiden deficiency, recurrent right lower extremity cellulitis, and hypothyroidism. PAST SURGICAL HISTORY: Cholecystectomy, hernia repair with resection , Gordon filter placement and colonoscopy. SOCIAL HISTORY: Remote history of smoking. No drinking or drug use. FAMILY HISTORY: Mother history of coronary artery disease, and rheumatoid arthritis. ALLERGIES: TO CODEINE, IODINE AND LATEX. MEDICATIONS: Include the patient is currently on: Vancomycin pharmacy to dose. He is on Tylenol, [place], DuoNeb, Xanax, Lipitor, baclofen, Symbicort, Flexeril, Cardizem, Flonase , Lasix, hydrochlorothiazide, Synthroid, Tradjenta, Glucophage, Solu-Medrol, Zaroxolyn, Singulair, Narcan, Protonix, K-Dur, Aldactone, Coumadin. EXAMINATION: Blood pressure is 150/70 with a pulse of 76, temperature 97.1. He is 92% on room air. General description is an elderly male up in the bed, up in no distress. No tachypnea or accessory muscles of respiration use. HEENT: Shows no pallor or scleral icterus. Oral mucosa membranes are dry. Neck trachea central. No thyromegaly. Lungs unlabored breathing with clear to auscultation anteriorly. No wheeze or crackles. Heart S1, S2. Regular rate and rhythm. ABDOMEN: Soft, no tenderness. No guarding. Extremities right leg with some superficial ulceration. Did have swelling and redness in both legs, slightly marked in the right leg, slightly warm to touch and some drainage on the dressing, but no purulence was noticed. He did have evidence of athlete's foot. Neurologically, patient is awake, alert, oriented times three. Mood and affect normal. LABS: Hemoglobin is 12.1, white count of 11.2 with a BUN of 16, creatinine 1.20, lactic acid 2.2. Blood culture and wound culture currently pending. DIAGNOSTIC IMPRESSION AND PLAN: Patient with bilateral lower extremity cellulitis, most marked on the right leg with some superficial ulceration, likely venous stasis ulcer. The patient did have a history of a previous DVT and venous stasis ulcers and recurrent cellulitis. The patient also has a component of athlete's foot that may be contributing to the cellulitis, recurrent cellulitis likely streptococcal disease. Clinically doubt MRSA infection. PLAN: 1. Discontinue the vancomycin to decrease risk of nephrotoxicity. 2. We will start the patient on cefazolin 2 g q.8 hours. 3. Nystatin cream in between the toes 2 twice a day. 4. Aquacel dressing to the right leg wound followed by rosa m wrap from just above to just below the knee. 5. We will follow up on the clinical condition and culture to further adjust medication if needed. Thank you for this consultation. We will follow this patient along with you. MMODL / IJN: [id number] / MARY JO
--- NOTE | 2017-10-05 19:40 | P.PN ---
Subjective Progress Note Date: 10/05/17 Progress note being dictated for Dr. Lieberman. Interval history: This a 72-year-old gentleman admitted with bilateral lower extremity cellulitis greater on the right with ulceration and multiple other medical issues. Evaluated by infectious disease, antibiotics adjusted and currently on cefazolin. Wound care as per infectious disease. Cultures pending. Pain improving. Denies chest pain, palpitations or increasing shortness of breath. Afebrile. Creatinine 1.2. Objective - Vital Signs Vital signs: Vital Signs Temp 97.1 F L 10/05/17 15:00 Pulse 80 10/05/17 16:39 Resp 18 10/05/17 15:00 BP 150/70 10/05/17 15:00 Pulse Ox 92 L 10/05/17 15:00 Intake & Output 10/05/17 10/05/17 10/06/17 06:59 18:59 06:59 Intake Total 240 Balance 240 Weight 145.15 kg Intake: Oral 240 Other: # Voids 2 3 # Bowel Movements 0 - Exam PHYSICAL EXAM: VITAL SIGNS: As above GENERAL: Sitting up in bed, no acute distress HEENT: Conjunctivae normal. eyes normal. NECK: No JVD. No thyroid enlargement. No LNs CARDIOVASCULAR: S1, S2 muffled. No murmur RESPIRATION: Breath sounds diminished in the bases. No rhonchi or crackles. No bronchial breathing. ABDOMEN: Soft, nontender . No guarding. no masses palpable. Bowel sounds heard. LEGS: Bilateral lower extremity dressings clean dry and intact PSYCHIATRY: Alert and oriented -3, mood and affect normal. NERVOUS SYSTEM: Cranial N 2-12 grossly normal. Moves all 4 limbs. Diffuse weakness No focal deficits. Lymphatic system. No LN neck axilla or groin. - Labs CBC & Chem 7: 10/05/17 05:17 10/05/17 05:17 Labs: Abnormal Lab Results - Last 24 Hours (Table) 10/04/17 10/04/17 10/04/17 Range/Units 13:00 21:02 22:36 WBC (3.8-10.6) k/uL Hgb (13.0-17.5) gm/dL MCHC (31.0-37.0) g/dL RDW (11.5-15.5) % Neutrophils # (1.3-7.7) k/uL Lymphocytes # (1.0-4.8) k/uL Glucose (74-99) mg/dL POC Glucose (mg/dL) 188 H (75-99) mg/dL Hemoglobin A1c 7.4 H (4.0-6.0) % Plasma Lactic Acid Christopher 3.1 H* (0.7-2.0) mmol/L 10/05/17 10/05/17 10/05/17 Range/Units 05:17 05:17 05:17 WBC 11.2 H (3.8-10.6) k/uL Hgb 12.1 L (13.0-17.5) gm/dL MCHC 30.8 L (31.0-37.0) g/dL RDW 17.5 H (11.5-15.5) % Neutrophils # 8.8 H (1.3-7.7) k/uL Lymphocytes # 0.9 L (1.0-4.8) k/uL Glucose 142 H (74-99) mg/dL POC Glucose (mg/dL) (75-99) mg/dL Hemoglobin A1c (4.0-6.0) % Plasma Lactic Acid Christopher 2.2 H* (0.7-2.0) mmol/L 10/05/17 10/05/17 10/05/17 Range/Units 07:22 12:13 16:59 WBC (3.8-10.6) k/uL Hgb (13.0-17.5) gm/dL MCHC (31.0-37.0) g/dL RDW (11.5-15.5) % Neutrophils # (1.3-7.7) k/uL Lymphocytes # (1.0-4.8) k/uL Glucose (74-99) mg/dL POC Glucose (mg/dL) 134 H 202 H 155 H (75-99) mg/dL Hemoglobin A1c (4.0-6.0) % Plasma Lactic Acid Christopher (0.7-2.0) mmol/L Microbiology - Last 24 Hours (Table) 10/04/17 13:00 Blood Culture - Preliminary Blood No Growth after 24 hours 10/04/17 17:15 Gram Stain - Preliminary Leg - Right Wound Culture - Preliminary 10/04/17 19:08 Urine Culture - Preliminary Urine,Voided Assessment and Plan Assessment: 1. Bilateral leg cellulitis, right greater than left 2. Chronic venous stasis and skin hypertrophy 3. Increased lactic acid, possible sepsis present on admission 4. Diabetes mellitus type 2 5. Hypothyroidism 6. Factor V Leiden deficiency 7. Coumadin monitoring Plan: Continue current medication regime ,monitoring and symptomatic treatment. Antibiotics and wound care as per infectious disease. Follow cultures closely. Close monitoring of renal function with repeat labs ordered for a.m. Further recommendations to follow. The impression and plan of care has been dictated as directed. : I performed a history and examination of this patient, discussed the same with the dictator. I agree with the dictator's note ,documented as a scribe. Any additional findings or plans will be noted.
[2017-10-05 20:57] LABS: Glucose,Whole Blood 213 mg/dL (75-99)
[2017-10-05] MEDS: DILTIAZEM CD 240 MG CAP.ER.24H PO SCH (21:21)
[2017-10-05] MEDS: MONTELUKAST 10 MG TAB PO SCH (21:28)
[2017-10-05] MEDS: ATORVASTATIN 10 MG TAB PO SCH (21:28)
[2017-10-05] MEDS: WARFARIN 7.5 MG TAB PO SCH (21:31)
[2017-10-06] MEDS: methylPREDNISolone SOD SUCCI 40 MG/ML 1 ML VIAL IV SCH ×2 (05:52→12:53)
[2017-10-06] MEDS: LEVOTHYROXINE 75 MCG TAB PO SCH (05:53)
[2017-10-06 07:41] LABS: Glucose,Whole Blood 275 mg/dL (75-99)
[2017-10-06] MEDS: ceFAZolin IN SWFI 2 GM/20 ML SYRINGE IVP SCH ×2 (08:12→16:50)
[2017-10-06] MEDS: INSULIN ASPART 100 UNIT/ML 1 ML 10 ML VIAL SQ SCH ×4 (08:12→21:52)
[2017-10-06] MEDS: TERBINAFINE 250 MG TAB PO SCH (08:13)
[2017-10-06] MEDS: FUROSEMIDE 40 MG TAB PO SCH (08:13)
[2017-10-06] MEDS: FLUTICASONE 50MCG/SPRAY NASAL 16GM EA NOSTRIL SCH (08:13)
[2017-10-06] MEDS: LINAGLIPTIN 5 MG TABLET PO SCH (08:13)
[2017-10-06] MEDS: HYDROCHLOROTHIAZIDE 25 MG TAB PO SCH (08:13)
[2017-10-06] MEDS: metFORMIN 500 MG TAB PO SCH ×2 (08:13→16:50)
[2017-10-06] MEDS: PANTOPRAZOLE 40 MG TABLET PO SCH (08:14)
[2017-10-06] MEDS: SPIRONOLACTONE 25 MG TAB PO SCH (08:14)
[2017-10-06] MEDS: POTASSIUM CHLORIDE ER 20 MEQ TAB.ER PO SCH (08:14)
[2017-10-06] MEDS: SYMBICORT 160-4.5 MCG INHALER INHALATION SCH ×2 (08:27→20:22)
[2017-10-06] MEDS: IPRATROPIUM-ALBUTEROL 3 ML NEB INHALATION SCH ×4 (08:27→20:22)
[2017-10-06 08:52] LABS: Anisocytosis Slight; Basophils % (A) 0 %; Eosinophils % (A) 0 %; HCT 42.8 % (39.0-53.0); Hypochromasia Slight; Lymphocytes # (A) 0.5 k/uL (1.0-4.8); Lymphocytes % (A) 4 %; MCH 25.8 pg (25.0-35.0); MCHC 30.4 g/dL (31.0-37.0); MCV 84.8 fL (80.0-100.0); Mean Platelet Volume 7.2; Monocytes # (A) 0.1 k/uL (0-1.0); Monocytes % (A) 1 %; Neutrophils # (A) 11.8 k/uL (1.3-7.7); Neutrophils % (A) 94 %; Platelet Count 394 k/uL (150-450); RBC 5.05 m/uL (4.30-5.90); RDW 17.5 % (11.5-15.5); WBC 12.5 k/uL (3.8-10.6)
[2017-10-06 09:06] LABS: Anion Gap 15 mmol/L; Blood Urea Nitrogen 18 mg/dL (9-20); Calcium 9.9 mg/dL (8.4-10.2); Carbon Dioxide 27 mmol/L (22-30); Chloride 97 mmol/L (98-107); Glucose 261 mg/dL (74-99); Sodium 139 mmol/L (137-145)
--- NOTE | 2017-10-06 11:11 | CONS ---
DATE OF CONSULTATION: 10/06/2017 This is a 72-year-old gentleman well known to me from the [facility]. History of obesity, history of chronic venous hypertension, history of DVT in the past. Patient has been treated for local wound care in the [facility]. He was healed. Now he has come up with respiratory issues. I was consulted for further evaluation. Patient was seen by the Infectious Disease. PHYSICAL EXAMINATION: His neck is supple. Chest has a few rhonchi in the lung bases. Abdomen is soft. Femorals are 1+. Patient has cellulitis and venostasis of both lower extremities. PLAN: Is continue local wound care. At this point, does not need any surgical intervention. Will follow in the [facility]ound Clinic next Sunday. MMODL / IJN: [id number] / MARY JO
[2017-10-06 12:34] LABS: Glucose,Whole Blood 244 mg/dL (75-99)
[2017-10-06 17:19] LABS: Glucose,Whole Blood 269 mg/dL (75-99)
[2017-10-06 17:44] LABS: INR 1.8 (<1.2); Prothrombin Time 16.4 sec (9.0-12.0)
--- NOTE | 2017-10-06 19:17 | PN ---
PROGRESS NOTE DATE OF SERVICE: 10/06/2017 This 72-year-old gentleman admitted with bilateral leg cellulitis, right more than left is being closely monitored. Patient on broad IV antibiotics. The blood culture showed strep agalactiae group B. EXAM: Alert and oriented times three. Pulse 89, blood pressure 140/75, respiration 22, temperature 97.2, pulse ox 98% on room air. HEENT conjunctivae normal. Neck: No jugular venous distention. Cardiovascular: S1, S2 muffled. Respiratory: Breath sounds diminished in the bases. A few scattered rhonchi. No crackles. Abdomen is soft, nontender. Legs bilateral leg swelling. Right more than the left. Central nervous system: No focal deficits. LAB STUDIES: WBC 12.5. Accu-Cheks noted. ASSESSMENT: 1. Bilateral leg cellulitis, right greater than left. 2. Chronic venous stasis. 3. Skin hypertrophy. 4. Increased lactic acid, possible sepsis present on admission. 5. Diabetes type 2. 6. Hypothyroidism. 7. Factor V Leiden deficiency. 8. Coumadin monitoring. RECOMMENDATIONS AND DISCUSSION: Recommend to continue current medications, symptomatic treatment, management. Continue the antibiotics. Otherwise the patient is on Tradjenta. Hemoglobin A1c 7.4. I will metformin. I would add a small dose of Lantus and continue to monitor. Further recommendations to follow. MMODL / IJN: [id number] / MTDD
[2017-10-06] MEDS: ATORVASTATIN 10 MG TAB PO SCH (20:07)
[2017-10-06] MEDS: DILTIAZEM CD 240 MG CAP.ER.24H PO SCH (20:07)
[2017-10-06] MEDS: MONTELUKAST 10 MG TAB PO SCH (20:07)
[2017-10-06] MEDS: WARFARIN 7.5 MG TAB PO SCH (20:11)
[2017-10-06 21:58] LABS: Glucose,Whole Blood 192 mg/dL (75-99)
[2017-10-06] MEDS: INSULIN DETEMIR 100 UNIT/ML 10 ML VIAL SQ SCH (22:31)
[2017-10-07] MEDS: ceFAZolin IN SWFI 2 GM/20 ML SYRINGE IVP SCH ×3 (00:29→15:51)
[2017-10-07] MEDS: ACETAMINOPHEN TAB 325 MG TAB PO PRN ×2 (04:04→16:03)
[2017-10-07] MEDS: ALPRAZolam 0.25 MG TAB PO PRN ×2 (04:07→16:04)
[2017-10-07] MEDS ORDERED: VANCOMYCIN TROUGH DUE 1 EACH MISC MISCELLANE ONE (05:00)
[2017-10-07] MEDS: LEVOTHYROXINE 75 MCG TAB PO SCH (05:51)
[2017-10-07] MEDS: SYMBICORT 160-4.5 MCG INHALER INHALATION SCH ×2 (07:27→20:27)
[2017-10-07] MEDS: IPRATROPIUM-ALBUTEROL 3 ML NEB INHALATION SCH ×4 (07:27→20:27)
[2017-10-07 07:33] LABS: Glucose,Whole Blood 223 mg/dL (75-99)
[2017-10-07] MEDS: HYDROCHLOROTHIAZIDE 25 MG TAB PO SCH (07:55)
[2017-10-07] MEDS: FUROSEMIDE 40 MG TAB PO SCH (07:55)
[2017-10-07] MEDS: INSULIN ASPART 100 UNIT/ML 1 ML 10 ML VIAL SQ SCH ×4 (07:55→21:37)
[2017-10-07] MEDS: FLUTICASONE 50MCG/SPRAY NASAL 16GM EA NOSTRIL SCH (07:55)
[2017-10-07] MEDS: SPIRONOLACTONE 25 MG TAB PO SCH (07:55)
[2017-10-07] MEDS: PANTOPRAZOLE 40 MG TABLET PO SCH (07:56)
[2017-10-07] MEDS: TERBINAFINE 250 MG TAB PO SCH (07:56)
[2017-10-07] MEDS: LINAGLIPTIN 5 MG TABLET PO SCH (07:56)
[2017-10-07] MEDS: metFORMIN 500 MG TAB PO SCH ×2 (07:56→17:31)
[2017-10-07 09:08] LABS: Prothrombin Time 18.5 sec (9.0-12.0)
[2017-10-07 09:09] LABS: Anisocytosis Slight; Basophils # (A) 0.1 k/uL (0-0.2); Basophils % (A) 0 %; Eosinophils # (A) 0.1 k/uL (0-0.7); Eosinophils % (A) 0 %; HCT 41.5 % (39.0-53.0); HGB 12.4 gm/dL (13.0-17.5); Hypochromasia Slight; Lymphocytes # (A) 0.6 k/uL (1.0-4.8); Lymphocytes % (A) 3 %; MCH 25.1 pg (25.0-35.0); MCHC 29.9 g/dL (31.0-37.0); Monocytes # (A) 0.6 k/uL (0-1.0); Monocytes % (A) 3 %; Neutrophils # (A) 18.6 k/uL (1.3-7.7); Neutrophils % (A) 93 %; Platelet Count 452 k/uL (150-450); RBC 4.94 m/uL (4.30-5.90); RDW 17.4 % (11.5-15.5)
[2017-10-07 09:25] LABS: Anion Gap 14 mmol/L; Blood Urea Nitrogen 29 mg/dL (9-20); Calcium 9.7 mg/dL (8.4-10.2); Carbon Dioxide 26 mmol/L (22-30); Chloride 97 mmol/L (98-107); Glucose 254 mg/dL (74-99); Potassium 5.1 mmol/L (3.5-5.1); Sodium 137 mmol/L (137-145)
[2017-10-07 12:28] LABS: Glucose,Whole Blood 170 mg/dL (75-99)
[2017-10-07 17:06] LABS: Glucose,Whole Blood 176 mg/dL (75-99)
[2017-10-07] MEDS: WARFARIN 7.5 MG TAB PO SCH (20:12)
[2017-10-07] MEDS: DILTIAZEM CD 240 MG CAP.ER.24H PO SCH (20:12)
[2017-10-07] MEDS: ATORVASTATIN 10 MG TAB PO SCH (20:12)
[2017-10-07] MEDS: MONTELUKAST 10 MG TAB PO SCH (20:12)
--- NOTE | 2017-10-07 20:36 | PN ---
PROGRESS NOTE DATE OF SERVICE: 10/07/2017. INTERIM HISTORY: 72-year-old gentleman admitted with bilateral leg cellulitis also had venous stasis. No chest pain. No palpitations. No fever. The culture showed strep agalactiae. No fever. No cough. PHYSICAL EXAM: Alert and oriented times three. Pulse is 80, blood pressure 141/70, respiration 18, temperature 98.6, pulse ox 94% room air. HEENT is conjunctivae normal. Oral mucosa moist. Neck is no jugular venous distention. No carotid bruit. No lymph node enlargement. Cardiovascular System: S1, S2 muffled. Respiration: Breath sounds diminished in the bases. No rhonchi and no crackles. Abdomen: Soft. Legs: Cellulitis and edema. Nervous system: No focal deficits. LABS: WBC 11, hemoglobin is 12.4, and INR is 2. ASSESSMENT: 1. Bilateral leg cellulitis, right greater than left. 2. Increased WBC. 3. Chronic venous status. 4. Skin hypertrophy. 5. Increased lactic acid, possible sepsis present on admission. 6. Diabetes type 2. 7. Hypothyroidism. 8. Factor V Leiden deficiency. 9. Coumadin monitoring. RECOMMENDATIONS AND DISCUSSION: Recommend to continue current medications, management and symptomatic treatment. Otherwise, at this time, recommend to continue antibiotics. Monitor blood sugars closely. Further recommendations to follow. MMODL / IJN: [id number] /
[2017-10-07 21:13] LABS: Glucose,Whole Blood 160 mg/dL (75-99)
[2017-10-07] MEDS: INSULIN DETEMIR 100 UNIT/ML 10 ML VIAL SQ SCH (21:38)
[2017-10-08] MEDS: ceFAZolin IN SWFI 2 GM/20 ML SYRINGE IVP SCH ×4 (00:20→22:56)
[2017-10-08] MEDS: LEVOTHYROXINE 75 MCG TAB PO SCH (06:12)
[2017-10-08] MEDS: ACETAMINOPHEN TAB 325 MG TAB PO PRN (06:15)
[2017-10-08 07:26] LABS: Glucose,Whole Blood 132 mg/dL (75-99)
[2017-10-08] MEDS: INSULIN ASPART 100 UNIT/ML 1 ML 10 ML VIAL SQ SCH ×4 (08:22→21:09)
[2017-10-08] MEDS: PANTOPRAZOLE 40 MG TABLET PO SCH (08:23)
[2017-10-08] MEDS: FLUTICASONE 50MCG/SPRAY NASAL 16GM EA NOSTRIL SCH (08:23)
[2017-10-08] MEDS: METOLAZONE 2.5 MG TAB PO SCH (08:23)
[2017-10-08] MEDS: metFORMIN 500 MG TAB PO SCH ×2 (08:23→16:55)
[2017-10-08] MEDS: SPIRONOLACTONE 25 MG TAB PO SCH (08:24)
[2017-10-08] MEDS: FUROSEMIDE 40 MG TAB PO SCH (08:24)
[2017-10-08] MEDS: HYDROCHLOROTHIAZIDE 25 MG TAB PO SCH (08:24)
[2017-10-08] MEDS: TERBINAFINE 250 MG TAB PO SCH (08:24)
[2017-10-08] MEDS: LINAGLIPTIN 5 MG TABLET PO SCH (08:24)
[2017-10-08 08:25] LABS: Anisocytosis Slight; Basophils # (A) 0.1 k/uL (0-0.2); Basophils % (A) 0 %; Eosinophils # (A) 0.1 k/uL (0-0.7); Eosinophils % (A) 1 %; HCT 40.1 % (39.0-53.0); HGB 12.2 gm/dL (13.0-17.5); Hypochromasia Slight; Lymphocytes # (A) 1.4 k/uL (1.0-4.8); Lymphocytes % (A) 10 %; MCH 25.4 pg (25.0-35.0); MCHC 30.4 g/dL (31.0-37.0); MCV 83.6 fL (80.0-100.0); Mean Platelet Volume 6.7; Monocytes # (A) 0.5 k/uL (0-1.0); Monocytes % (A) 4 %; Neutrophils # (A) 12.2 k/uL (1.3-7.7); Neutrophils % (A) 84 %; Platelet Count 461 k/uL (150-450); RBC 4.79 m/uL (4.30-5.90); RDW 17.3 % (11.5-15.5); WBC 14.5 k/uL (3.8-10.6)
[2017-10-08 08:33] LABS: Anion Gap 11 mmol/L; Blood Urea Nitrogen 35 mg/dL (9-20); Calcium 9.9 mg/dL (8.4-10.2); Carbon Dioxide 33 mmol/L (22-30); Chloride 96 mmol/L (98-107); Glucose 130 mg/dL (74-99); Potassium 5.5 mmol/L (3.5-5.1); Sodium 140 mmol/L (137-145)
[2017-10-08] MEDS: IPRATROPIUM-ALBUTEROL 3 ML NEB INHALATION SCH ×4 (08:36→21:24)
[2017-10-08] MEDS: SYMBICORT 160-4.5 MCG INHALER INHALATION SCH ×2 (08:36→21:24)
[2017-10-08 08:41] LABS: INR 2.3 (<1.2); Prothrombin Time 20.9 sec (9.0-12.0)
[2017-10-08 12:00] LABS: Glucose,Whole Blood 114 mg/dL (75-99)
[2017-10-08 17:31] LABS: Glucose,Whole Blood 149 mg/dL (75-99)
[2017-10-08 20:57] LABS: Glucose,Whole Blood 161 mg/dL (75-99)
[2017-10-08] MEDS: ATORVASTATIN 10 MG TAB PO SCH (21:09)
[2017-10-08] MEDS: INSULIN DETEMIR 100 UNIT/ML 10 ML VIAL SQ SCH (21:09)
[2017-10-08] MEDS: DILTIAZEM CD 240 MG CAP.ER.24H PO SCH (21:09)
[2017-10-08] MEDS: MONTELUKAST 10 MG TAB PO SCH (21:10)
[2017-10-08] MEDS: WARFARIN 7.5 MG TAB PO SCH (21:10)
--- NOTE | 2017-10-08 23:43 | P.PN ---
Subjective Progress Note Date: 10/08/17 Principal diagnosis: Cellulitis 72-year-old male who has a long-standing history of peripheral vascular disease and difficulties with lesions lower extremities. Has been admitted with evidence of Joel lower extremities right greater than left. Feeling somewhat better today. Denies fevers chills or rigors or sweats. Objective - Vital Signs Vital signs: Vital Signs Temp 97.3 F L 10/08/17 23:00 Pulse 90 10/08/17 23:00 Resp 20 10/08/17 23:00 BP 141/80 10/08/17 23:00 Pulse Ox 93 L 10/08/17 23:00 Intake & Output 10/08/17 10/08/17 10/09/17 06:59 18:59 06:59 Other: Voiding Method Toilet Urinal # Voids 1 3 2 - Exam HEENT: Anicteric conjunctiva are pink and moist nasal mucosa grossly intact without significant lesions, there is no thrush. Neck: The neck is supple without significant lymphadenopathy or thyromegaly. Lungs: Good bilateral air entry without significant crackles or wheezing. There is no significant bronchial sounds. There is no egophony or dullness. Heart: Regular rate and rhythm with an audible S1-S2, no S3 no S4. There is no significant murmur click or rub, PMI was nondisplaced. Abdomen: Positive bowel sounds soft and nontender without palpable masses or organomegaly. There was no guarding or rebound. Extremities: The upper extremities have excellent pulses they are symmetric, no significant petechiae or telangiectasia. No splinter hemorrhages were noted. The right lower extremity has evidence of ongoing chronic edema. The erythema and tenderness to the coronary improved. Her leg is still more swollen and erythematous than the left. - Labs CBC & Chem 7: 10/08/17 07:49 10/08/17 07:49 Labs: Abnormal Lab Results - Last 24 Hours (Table) 10/08/17 10/08/17 10/08/17 Range/Units 07:24 07:49 07:49 WBC 14.5 H (3.8-10.6) k/uL Hgb 12.2 L (13.0-17.5) gm/dL MCHC 30.4 L (31.0-37.0) g/dL RDW 17.3 H (11.5-15.5) % Plt Count 461 H (150-450) k/uL Neutrophils # 12.2 H (1.3-7.7) k/uL PT (9.0-12.0) sec INR (<1.2) Potassium 5.5 H (3.5-5.1) mmol/L Chloride 96 L (98-107) mmol/L Carbon Dioxide 33 H (22-30) mmol/L BUN 35 H (9-20) mg/dL Glucose 130 H (74-99) mg/dL POC Glucose (mg/dL) 132 H (75-99) mg/dL 10/08/17 10/08/17 10/08/17 Range/Units 07:49 11:59 17:24 WBC (3.8-10.6) k/uL Hgb (13.0-17.5) gm/dL MCHC (31.0-37.0) g/dL RDW (11.5-15.5) % Plt Count (150-450) k/uL Neutrophils # (1.3-7.7) k/uL PT 20.9 H (9.0-12.0) sec INR 2.3 H (<1.2) Potassium (3.5-5.1) mmol/L Chloride (98-107) mmol/L Carbon Dioxide (22-30) mmol/L BUN (9-20) mg/dL Glucose (74-99) mg/dL POC Glucose (mg/dL) 114 H 149 H (75-99) mg/dL 10/08/17 Range/Units 20:56 WBC (3.8-10.6) k/uL Hgb (13.0-17.5) gm/dL MCHC (31.0-37.0) g/dL RDW (11.5-15.5) % Plt Count (150-450) k/uL Neutrophils # (1.3-7.7) k/uL PT (9.0-12.0) sec INR (<1.2) Potassium (3.5-5.1) mmol/L Chloride (98-107) mmol/L Carbon Dioxide (22-30) mmol/L BUN (9-20) mg/dL Glucose (74-99) mg/dL POC Glucose (mg/dL) 161 H (75-99) mg/dL Microbiology - Last 24 Hours (Table) 10/04/17 13:00 Blood Culture - Preliminary Blood No Growth after 96 hours 10/04/17 17:15 Gram Stain - Final Leg - Right Wound Culture - Final Strep agalactiae - (group b) Laboratory Results WBC 14.5 k/uL (3.8-10.6) H 10/08/17 07:49 RBC 4.79 m/uL (4.30-5.90) 10/08/17 07:49 Hgb 12.2 gm/dL (13.0-17.5) L 10/08/17 07:49 Hct 40.1 % (39.0-53.0) 10/08/17 07:49 MCV 83.6 fL (80.0-100.0) 10/08/17 07:49 MCH 25.4 pg (25.0-35.0) 10/08/17 07:49 MCHC 30.4 g/dL (31.0-37.0) L 10/08/17 07:49 RDW 17.3 % (11.5-15.5) H 10/08/17 07:49 Plt Count 461 k/uL (150-450) H 10/08/17 07:49 Neutrophils % 84 % 10/08/17 07:49 Lymphocytes % 10 % 10/08/17 07:49 Monocytes % 4 % 10/08/17 07:49 Eosinophils % 1 % 10/08/17 07:49 Basophils % 0 % 10/08/17 07:49 Neutrophils # 12.2 k/uL (1.3-7.7) H 10/08/17 07:49 Lymphocytes # 1.4 k/uL (1.0-4.8) 10/08/17 07:49 Monocytes # 0.5 k/uL (0-1.0) 10/08/17 07:49 Eosinophils # 0.1 k/uL (0-0.7) 10/08/17 07:49 Basophils # 0.1 k/uL (0-0.2) 10/08/17 07:49 Hypochromasia Slight 10/08/17 07:49 Anisocytosis Slight 10/08/17 07:49 PT 20.9 sec (9.0-12.0) H 10/08/17 07:49 INR 2.3 (<1.2) H 10/08/17 07:49 APTT 29.2 sec (22.0-30.0) 10/04/17 13:00 Sodium 140 mmol/L (137-145) 10/08/17 07:49 Potassium 5.5 mmol/L (3.5-5.1) H 10/08/17 07:49 Chloride 96 mmol/L (98-107) L 10/08/17 07:49 Carbon Dioxide 33 mmol/L (22-30) H 10/08/17 07:49 Anion Gap 11 mmol/L 10/08/17 07:49 BUN 35 mg/dL (9-20) H 10/08/17 07:49 Creatinine 1.17 mg/dL (0.66-1.25) 10/08/17 07:49 Est GFR (MDRD) Af Amer >60 (>60 ml/min/1.73 sqM) 10/08/17 07:49 Est GFR (MDRD) Non-Af >60 (>60 ml/min/1.73 sqM) 10/08/17 07:49 Glucose 130 mg/dL (74-99) H 10/08/17 07:49 POC Glucose (mg/dL) 161 mg/dL (75-99) H 10/08/17 20:56 POC Glu Job Placement Specialist ID Radha Calderón 10/08/17 20:[address] Glu mg/dL 166 10/04/17 13:00 Hemoglobin A1c 7.4 % (4.0-6.0) H 10/04/17 13:00 Lactic Ac Sepsis Rflx Y 10/05/17 05:54 Plasma Lactic Acid Christopher 1.3 mmol/L (0.7-2.0) 10/05/17 09:33 Calcium 9.9 mg/dL (8.4-10.2) 10/08/17 07:49 Total Bilirubin 0.5 mg/dL (0.2-1.3) 10/04/17 13:00 AST 24 U/L (17-59) 10/04/17 13:00 ALT 34 U/L (21-72) 10/04/17 13:00 Alkaline Phosphatase 108 U/L (38-126) 10/04/17 13:00 Troponin I <0.012 ng/mL (0.000-0.034) 10/04/17 13:00 NT-Pro-B Natriuret Pep 775 pg/mL 10/04/17 13:00 Total Protein 7.0 g/dL (6.3-8.2) 10/04/17 13:00 Albumin 3.7 g/dL (3.5-5.0) 10/04/17 13:00 Urine Color Yellow 10/04/17 19:08 Urine Appearance Clear (Clear) 10/04/17 19:08 Urine pH 5.5 (5.0-8.0) 10/04/17 19:08 Ur Specific [place] 1.011 (1.001-1.035) 10/04/17 19:08 Urine Protein Trace (Negative) H 10/04/17 19:08 Urine Glucose (UA) Negative (Negative) 10/04/17 19:08 Urine Ketones Negative (Negative) 10/04/17 19:08 Urine Blood Negative (Negative) 10/04/17 19:08 Urine Nitrite Negative (Negative) 10/04/17 19:08 Urine Bilirubin Negative (Negative) 10/04/17 19:08 Urine Urobilinogen <2.0 mg/dL (<2.0) 10/04/17 19:08 Ur Leukocyte Esterase Negative (Negative) 10/04/17 19:08 Microbiology 10/04/17 13:00 Blood Blood Culture - Preliminary No Growth after 96 hours 10/04/17 17:15 Leg - Right Gram Stain - Final 10/04/17 17:15 Leg - Right Wound Culture - Final Strep agalactiae - (group b) 10/04/17 19:08 Urine,Voided Urine Culture - Final Assessment and Plan (1) Cellulitis of right leg Current Visit: Yes Status: Acute Code(s): L03.115 - CELLULITIS OF RIGHT LOWER LIMB SNOMED Code(s): 788972572 (2) Failure of outpatient treatment Narrative/Plan: 72-year-old male presents to hospital with worsening cellulitis of the lower extremities. Is now receiving Ancef with some improvement for the isolated group B strep. Is an adequate choice and will continue. Elevation local care continues pain control is not problematic at this time. Needs ongoing enhance glucose control. Current Visit: Yes Status: Acute Code(s): Z78.9 - OTHER SPECIFIED HEALTH STATUS SNOMED Code(s): 323340214
[2017-10-09] MEDS: LEVOTHYROXINE 75 MCG TAB PO SCH (05:57)
--- NOTE | 2017-10-09 06:10 | PN ---
PROGRESS NOTE DATE OF SERVICE: 10/08/2017 REASON FOR FOLLOWUP: Right leg venous stasis ulcer and cellulitis. INTERVAL HISTORY: The patient is afebrile. Has been breathing comfortably. Does complain of significant swelling in the leg. The overall drainage has decreased, no drainage. Denies having any chest pain. Minimal shortness of breath. Did have a cough but not bringing up any sputum and no diarrhea. PHYSICAL EXAMINATION: Blood pressure is 142/83 with a pulse of 93, temperature 97.4. He is 96% on room air. General description is an elderly male up in the bed, in no distress. RESPIRATORY SYSTEM: Unlabored breathing, clear to auscultation. No wheeze. HEART: S1, S2. Regular rate and rhythm. ABDOMEN: Soft, no tenderness. Legs with minimal redness, no drainage on the dressing. LABS: White count down to 14.5 from yesterday of 20,000. BUN of 35, creatinine is 1.17. DIAGNOSTIC IMPRESSION AND PLAN: Patient with bilateral lower extremity venous stasis ulcer with cellulitis. Right leg culture positive with group B strep. The patient's current cefazolin will be continued. Aquacel silver dressing to the leg and Zeus wrap to keep the swelling down with plan to finish therapy with oral antibiotics. Continue supportive care. MMODL / IJN: [id number] /
[2017-10-09 07:30] LABS: Glucose,Whole Blood 141 mg/dL (75-99)
[2017-10-09] MEDS: SYMBICORT 160-4.5 MCG INHALER INHALATION SCH ×2 (07:41→19:57)
[2017-10-09] MEDS: IPRATROPIUM-ALBUTEROL 3 ML NEB INHALATION SCH ×4 (07:41→19:57)
[2017-10-09] MEDS: SPIRONOLACTONE 25 MG TAB PO SCH (08:02)
[2017-10-09] MEDS: INSULIN ASPART 100 UNIT/ML 1 ML 10 ML VIAL SQ SCH ×4 (08:02→22:22)
[2017-10-09] MEDS: metFORMIN 500 MG TAB PO SCH ×2 (08:02→18:14)
[2017-10-09] MEDS: HYDROCHLOROTHIAZIDE 25 MG TAB PO SCH (08:03)
[2017-10-09] MEDS: FLUTICASONE 50MCG/SPRAY NASAL 16GM EA NOSTRIL SCH (08:03)
[2017-10-09] MEDS: PANTOPRAZOLE 40 MG TABLET PO SCH (08:03)
[2017-10-09] MEDS: FUROSEMIDE 40 MG TAB PO SCH (08:03)
[2017-10-09] MEDS: TERBINAFINE 250 MG TAB PO SCH (08:03)
[2017-10-09] MEDS: LINAGLIPTIN 5 MG TABLET PO SCH (08:04)
[2017-10-09] MEDS: ceFAZolin IN SWFI 2 GM/20 ML SYRINGE IVP SCH ×2 (08:37→16:16)
[2017-10-09 09:33] LABS: Anisocytosis Slight; Basophils # (A) 0.1 k/uL (0-0.2); Basophils % (A) 1 %; Eosinophils # (A) 0.3 k/uL (0-0.7); Eosinophils % (A) 3 %; HCT 45.1 % (39.0-53.0); HGB 13.3 gm/dL (13.0-17.5); Hypochromasia Slight; Lymphocytes # (A) 1.1 k/uL (1.0-4.8); Lymphocytes % (A) 9 %; MCH 25.3 pg (25.0-35.0); MCHC 29.6 g/dL (31.0-37.0); MCV 85.4 fL (80.0-100.0); Mean Platelet Volume 6.7; Monocytes # (A) 0.5 k/uL (0-1.0); Monocytes % (A) 4 %; Neutrophils # (A) 9.9 k/uL (1.3-7.7); Neutrophils % (A) 82 %; Platelet Count 449 k/uL (150-450); RBC 5.28 m/uL (4.30-5.90); RDW 17.5 % (11.5-15.5); WBC 12.1 k/uL (3.8-10.6)
[2017-10-09 09:46] LABS: INR 2.5 (<1.2); Prothrombin Time 22.1 sec (9.0-12.0)
[2017-10-09 10:05] LABS: Anion Gap 15 mmol/L; Blood Urea Nitrogen 32 mg/dL (9-20); Calcium 10.1 mg/dL (8.4-10.2); Carbon Dioxide 32 mmol/L (22-30); Chloride 92 mmol/L (98-107); Glucose 187 mg/dL (74-99); Potassium 4.5 mmol/L (3.5-5.1); Sodium 139 mmol/L (137-145)
[2017-10-09 12:16] LABS: Glucose,Whole Blood 146 mg/dL (75-99)
[2017-10-09 17:25] LABS: Glucose,Whole Blood 152 mg/dL (75-99)
--- NOTE | 2017-10-09 18:52 | P.PN ---
Subjective Progress Note Date: 10/08/17 Progress note being dictated for Dr. Lieberman. Interval history: This a 72-year-old gentleman admitted with bilateral lower extremity cellulitis greater on the right with ulceration and multiple other medical issues. Evaluated by infectious disease, antibiotics adjusted and currently on cefazolin. Wound care as per infectious disease. Cultures pending. Pain improving. Denies chest pain, palpitations or increasing shortness of breath. Afebrile. Creatinine 1.2. 10/08/17 maintained on IV antibiotics/wound care as per infectious disease. Ambulating without difficulty. significant improvement, afebrile, improvement in leukocytosis, no drainage from wound. Right leg culture positive for group B strep. Renal function improving. Consuming 100% of breakfast and lunch. Denies nausea vomiting or diarrhea. INR 2.3, potassium 5.5. Denies chest pain , palpitations or increasing shortness of breath. Maintaining O2 sats in the high 90s on room air, currently 96%. Occasional nonproductive cough. Objective - Vital Signs Vital signs: Vital Signs Temp 97.4 F L 10/08/17 15:00 Pulse 93 10/08/17 16:53 Resp 18 10/08/17 16:43 BP 148/83 10/08/17 15:00 Pulse Ox 96 10/08/17 15:00 Intake & Output 10/08/17 10/08/17 10/09/17 06:59 18:59 06:59 Other: Voiding Method Toilet Urinal # Voids 1 3 - Exam PHYSICAL EXAM: VITAL SIGNS: As above GENERAL: Sitting up in chair no acute distress HEENT: Conjunctivae normal. eyes normal. Oral mucosa moist NECK: No JVD. No thyroid enlargement. No LNs CARDIOVASCULAR: S1, S2 muffled. No murmur RESPIRATION: Breath sounds diminished in the bases. No rhonchi or crackles. No wheezing ABDOMEN: Soft, nontender . No guarding. no masses palpable. Bowel sounds heard. LEGS: Bilateral lower extremity Zeus wraps dressings clean dry and intact. Significantly improved with no drainage. PSYCHIATRY: Alert and oriented -3, mood and affect normal. NERVOUS SYSTEM: Cranial N 2-12 grossly normal. Moves all 4 limbs. Diffuse weakness, No focal deficits. Microbiology 10/04/17 13:00 Blood Blood Culture - Preliminary No Growth after 120 hours 10/04/17 17:15 Leg - Right Gram Stain - Final 10/04/17 17:15 Leg - Right Wound Culture - Final Strep agalactiae - (group b) 10/04/17 19:08 Urine,Voided Urine Culture - Final - Labs CBC & Chem 7: 10/09/17 09:05 10/09/17 09:05 Labs: Abnormal Lab Results - Last 24 Hours (Table) 10/07/17 10/08/17 10/08/17 Range/Units 21:03 07:24 07:49 WBC 14.5 H (3.8-10.6) k/uL Hgb 12.2 L (13.0-17.5) gm/dL MCHC 30.4 L (31.0-37.0) g/dL RDW 17.3 H (11.5-15.5) % Plt Count 461 H (150-450) k/uL Neutrophils # 12.2 H (1.3-7.7) k/uL PT (9.0-12.0) sec INR (<1.2) Potassium (3.5-5.1) mmol/L Chloride (98-107) mmol/L Carbon Dioxide (22-30) mmol/L BUN (9-20) mg/dL Glucose (74-99) mg/dL POC Glucose (mg/dL) 160 H 132 H (75-99) mg/dL 10/08/17 10/08/17 10/08/17 Range/Units 07:49 07:49 11:59 WBC (3.8-10.6) k/uL Hgb (13.0-17.5) gm/dL MCHC (31.0-37.0) g/dL RDW (11.5-15.5) % Plt Count (150-450) k/uL Neutrophils # (1.3-7.7) k/uL PT 20.9 H (9.0-12.0) sec INR 2.3 H (<1.2) Potassium 5.5 H (3.5-5.1) mmol/L Chloride 96 L (98-107) mmol/L Carbon Dioxide 33 H (22-30) mmol/L BUN 35 H (9-20) mg/dL Glucose 130 H (74-99) mg/dL POC Glucose (mg/dL) 114 H (75-99) mg/dL 10/08/17 Range/Units 17:24 WBC (3.8-10.6) k/uL Hgb (13.0-17.5) gm/dL MCHC (31.0-37.0) g/dL RDW (11.5-15.5) % Plt Count (150-450) k/uL Neutrophils # (1.3-7.7) k/uL PT (9.0-12.0) sec INR (<1.2) Potassium (3.5-5.1) mmol/L Chloride (98-107) mmol/L Carbon Dioxide (22-30) mmol/L BUN (9-20) mg/dL Glucose (74-99) mg/dL POC Glucose (mg/dL) 149 H (75-99) mg/dL Microbiology - Last 24 Hours (Table) 10/04/17 13:00 Blood Culture - Preliminary Blood No Growth after 96 hours 10/04/17 17:15 Gram Stain - Final Leg - Right Wound Culture - Final Strep agalactiae - (group b) Assessment and Plan Assessment: 1. Bilateral leg cellulitis, right greater than left 2. Chronic venous stasis and skin hypertrophy 3. Increased lactic acid, possible sepsis present on admission 4. Diabetes mellitus type 2 5. Hypothyroidism 6. Factor V Leiden deficiency 7. Coumadin monitoring Plan: Continue current medication regime ,monitoring and symptomatic treatment. Cleared by infectious disease for discharge on oral Keflex. Patient states he is not ready for discharge and appealing his discharge. Low potassium diet, close monitoring of electrolytes with repeat labs ordered for a.m. Maintain IV antibiotics/Wound Care as per ID. Maintain supportive care. The impression and plan of care has been dictated as directed. : I performed a history and examination of this patient, discussed the same with the dictator. I agree with the dictator's note ,documented as a scribe. Any additional findings or plans will be noted.
--- NOTE | 2017-10-09 18:59 | P.PN ---
Subjective Progress Note Date: 10/09/17 Progress note being dictated for Dr. Cates Interval history: This a 72-year-old gentleman admitted with bilateral lower extremity cellulitis greater on the right with ulceration and multiple other medical issues. Evaluated by infectious disease, antibiotics adjusted and currently on cefazolin. Wound care as per infectious disease. Cultures pending. Pain improving. Denies chest pain, palpitations or increasing shortness of breath. Afebrile. Creatinine 1.2. 10/08/17 maintained on IV antibiotics/wound care as per infectious disease. Ambulating without difficulty. significant improvement, afebrile, improvement in leukocytosis, no drainage from wound. Right leg culture positive for group B strep. Renal function improving. Consuming 100% of breakfast and lunch. Denies nausea vomiting or diarrhea. INR 2.3, potassium 5.5. Denies chest pain , palpitations or increasing shortness of breath. Maintaining O2 sats in the high 90s on room air, currently 96%. Occasional nonproductive cough. 10/09/2017 no overnight events. Afebrile. Maintained on antibiotics as per infectious disease. Ambulating, tolerating exertion well. Continues maintaining O2 sats in the 90s on room air. Minimal nonproductive cough. INR 2.5. Potassium within normal limits. Good diet intake, consuming 75-100%. Blood sugars controlled. Objective - Vital Signs Vital signs: Vital Signs Temp 97.9 F 10/09/17 15:00 Pulse 86 10/09/17 15:40 Resp 18 10/09/17 15:00 BP 154/64 10/09/17 15:00 Pulse Ox 94 L 10/09/17 15:00 Intake & Output 10/08/17 10/09/17 10/09/17 18:59 06:59 18:59 Other: Voiding Method Toilet Urinal # Voids 3 2 3 # Bowel Movements 1 - Exam PHYSICAL EXAM: VITAL SIGNS: As above GENERAL: Sitting up in chair, no acute distress, watching TV HEENT: Conjunctivae normal. eyes normal. Oral mucosa moist NECK: No JVD. No thyroid enlargement. No LNs CARDIOVASCULAR: S1, S2 muffled. No murmur RESPIRATION: Breath sounds diminished in the bases. No wheezing, no rhonchi, no crackles ABDOMEN: Soft, nontender . No guarding. no masses palpable. Bowel sounds heard. LEGS: Bilateral lower extremity Zeus wraps dressings clean dry and intact. PSYCHIATRY: Alert and oriented -3, mood and affect normal. NERVOUS SYSTEM: Cranial N 2-12 grossly normal. Moves all 4 limbs. Diffuse weakness, No focal deficits. Microbiology 10/04/17 13:00 Blood Blood Culture - Preliminary No Growth after 120 hours 10/04/17 17:15 Leg - Right Gram Stain - Final 10/04/17 17:15 Leg - Right Wound Culture - Final Strep agalactiae - (group b) 10/04/17 19:08 Urine,Voided Urine Culture - Final - Labs CBC & Chem 7: 10/09/17 09:05 10/09/17 09:05 Labs: Abnormal Lab Results - Last 24 Hours (Table) 10/08/17 10/09/17 10/09/17 Range/Units 20:56 07:19 09:05 WBC 12.1 H (3.8-10.6) k/uL MCHC 29.6 L (31.0-37.0) g/dL RDW 17.5 H (11.5-15.5) % Neutrophils # 9.9 H (1.3-7.7) k/uL PT (9.0-12.0) sec INR (<1.2) Chloride (98-107) mmol/L Carbon Dioxide (22-30) mmol/L BUN (9-20) mg/dL Glucose (74-99) mg/dL POC Glucose (mg/dL) 161 H 141 H (75-99) mg/dL 10/09/17 10/09/17 10/09/17 Range/Units 09:05 09:05 12:15 WBC (3.8-10.6) k/uL MCHC (31.0-37.0) g/dL RDW (11.5-15.5) % Neutrophils # (1.3-7.7) k/uL PT 22.1 H (9.0-12.0) sec INR 2.5 H (<1.2) Chloride 92 L (98-107) mmol/L Carbon Dioxide 32 H (22-30) mmol/L BUN 32 H (9-20) mg/dL Glucose 187 H (74-99) mg/dL POC Glucose (mg/dL) 146 H (75-99) mg/dL 10/09/17 Range/Units 17:21 WBC (3.8-10.6) k/uL MCHC (31.0-37.0) g/dL RDW (11.5-15.5) % Neutrophils # (1.3-7.7) k/uL PT (9.0-12.0) sec INR (<1.2) Chloride (98-107) mmol/L Carbon Dioxide (22-30) mmol/L BUN (9-20) mg/dL Glucose (74-99) mg/dL POC Glucose (mg/dL) 152 H (75-99) mg/dL Microbiology - Last 24 Hours (Table) 10/04/17 13:00 Blood Culture - Preliminary Blood No Growth after 120 hours Assessment and Plan Assessment: 1. Bilateral leg cellulitis, right greater than left with right leg culture positive with group B strep 2. Chronic venous stasis and skin hypertrophy 4. Diabetes mellitus type 2 5. Hypothyroidism 6. Factor V Leiden deficiency 7. Coumadin monitoring Plan: Continue current medication regime ,monitoring and symptomatic treatment. Cleared by infectious disease for discharge on oral Keflex. Increase ambulation as tolerated. Ambulating in hallway every shift. Maintain IV antibiotics/Wound Care as per ID. Maintain supportive care. Discharge planning in progress. The impression and plan of care has been dictated as directed. : I performed a history and examination of this patient, discussed the same with the dictator. I agree with the dictator's note ,documented as a scribe. Any additional findings or plans will be noted.
[2017-10-09 20:57] LABS: Glucose,Whole Blood 195 mg/dL (75-99)
[2017-10-09] MEDS ORDERED: WARFARIN 5 MG TAB PO SCH (21:00)
[2017-10-09] MEDS: INSULIN DETEMIR 100 UNIT/ML 10 ML VIAL SQ SCH (22:22)
[2017-10-09] MEDS: ATORVASTATIN 10 MG TAB PO SCH (22:23)
[2017-10-09] MEDS: MONTELUKAST 10 MG TAB PO SCH (22:23)
[2017-10-09] MEDS: DILTIAZEM CD 240 MG CAP.ER.24H PO SCH (22:23)
[2017-10-09] MEDS: ALPRAZolam 0.25 MG TAB PO PRN (22:26)
[2017-10-10] MEDS: ceFAZolin IN SWFI 2 GM/20 ML SYRINGE IVP SCH ×3 (00:18→16:40)
[2017-10-10] MEDS: LEVOTHYROXINE 75 MCG TAB PO SCH (06:30)
[2017-10-10 07:12] LABS: Glucose,Whole Blood 129 mg/dL (75-99)
[2017-10-10] MEDS: INSULIN ASPART 100 UNIT/ML 1 ML 10 ML VIAL SQ SCH ×3 (07:27→17:57)
[2017-10-10] MEDS: FLUTICASONE 50MCG/SPRAY NASAL 16GM EA NOSTRIL SCH (08:19)
[2017-10-10] MEDS: HYDROCHLOROTHIAZIDE 25 MG TAB PO SCH (08:19)
[2017-10-10] MEDS: TERBINAFINE 250 MG TAB PO SCH (08:19)
[2017-10-10] MEDS: LINAGLIPTIN 5 MG TABLET PO SCH (08:19)
[2017-10-10] MEDS: metFORMIN 500 MG TAB PO SCH ×2 (08:19→17:57)
[2017-10-10] MEDS: FUROSEMIDE 40 MG TAB PO SCH (08:20)
[2017-10-10] MEDS: PANTOPRAZOLE 40 MG TABLET PO SCH (08:20)
[2017-10-10] MEDS: SPIRONOLACTONE 25 MG TAB PO SCH (09:00)
[2017-10-10] MEDS: IPRATROPIUM-ALBUTEROL 3 ML NEB INHALATION SCH ×3 (09:04→17:40)
[2017-10-10] MEDS: SYMBICORT 160-4.5 MCG INHALER INHALATION SCH (09:04)
[2017-10-10 11:46] LABS: Glucose,Whole Blood 144 mg/dL (75-99)
[2017-10-10 16:17] VITALS: BP 161/80; RESP 18; TEMP 96.4
[2017-10-10 16:53] LABS: Glucose,Whole Blood 176 mg/dL (75-99)
[2017-10-10 17:47] LABS: INR 2.2 (<1.2)
[2017-10-10 17:52] VITALS: PULSE 84
--- NOTE | 2017-10-10 19:47 | P.DS ---
Providers Date of admission: 10/04/17 13:48 Expected date of discharge: 10/10/17 Attending physician: Johnny Cates Consults: 10/04/17 17:08 Consult Physician Routine Consulting Provider: Charisma Silva Consult Reason/Comments: cellulitis Do you want consulting provider notified?: Yes 10/05/17 12:37 Consult Physician Routine Consulting Provider: Ishan Ratliff Consult Reason/Comments: right leg wound and cellulitis Do you want consulting provider notified?: Yes Primary care physician: Tatyana Mora [facility] Course: Final Diagnoses: 1. Bilateral leg cellulitis, right greater than left with right leg culture positive with group B strep 2. Chronic venous stasis and skin hypertrophy 4. Diabetes mellitus type 2 5. Hypothyroidism 6. Factor V Leiden deficiency 7. Coumadin monitoring Hospital course:This is a 72-year-old gentleman admitted with bilateral lower extremity cellulitis greater on the right with ulceration and multiple other medical issues. Evaluated by vascular surgery and infectious disease. Maintained on IV antibiotics with wound care as per infectious disease. Right leg culture positive with group B strep. Significant clinical improvement. Patient cleared by all consults for discharge. Patient is being discharged home in a stable condition with guarded prognosis. Microbiology 10/04/17 13:00 Blood Blood Culture - Final No Growth after 144 hours 10/04/17 17:15 Leg - Right Gram Stain - Final 10/04/17 17:15 Leg - Right Wound Culture - Final Strep agalactiae - (group b) 10/04/17 19:08 Urine,Voided Urine Culture - Final PHYSICAL EXAM: VITAL SIGNS: As above GENERAL: A & O X 3, no acute distress.CARDIOVASCULAR: S1, S2 muffled.RESPIRATION: Breath sounds diminished in the bases.ABDOMEN: Soft, nontender . No guarding.Positive Bowel sounds.LEGS: Bilateral lower extremity Zeus wraps dressings clean dry and intact. NERVOUS SYSTEM: No focal deficits. The impression and plan of care has been dictated as directed. : I performed a history and examination of this patient, discussed the same with the dictator. I agree with the dictator's note ,documented as a scribe. Any additional findings or plans will be noted. Time taken: 35 minutes Patient Condition at Discharge: Stable Plan - Discharge Summary Discharge Rx Participant: Yes New Discharge Prescriptions: New Insulin Detemir [Levemir] 20 unit SQ HS #1 syr Cephalexin [Keflex] 500 mg PO TID #30 cap Continue Budesonide/Formoterol Fumarate [Symbicort 160-4.5 Mcg Inhaler] 2 puff INHALATION RT-BID Spironolactone [Aldactone] 25 mg PO DAILY Omeprazole [PriLOSEC] 20 mg PO AC-BRKFST Metolazone [Zaroxolyn] 2.5 mg PO MOFR Albuterol Inhaler [Ventolin Hfa Inhaler] 2 puff INHALATION RT-Q4H PRN PRN Reason: Shortness Of Breath Acetaminophen Tab [Tylenol] 325 mg PO Q6H PRN PRN Reason: Pain Montelukast [Singulair] 10 mg PO HS Baclofen 10 mg PO DAILY PRN PRN Reason: Muscle Spasm Atorvastatin [Lipitor] 10 mg PO HS Cyclobenzaprine [Flexeril] 5 mg PO TID PRN PRN Reason: Muscle Spasm Diltiazem Cd [Cardizem CD] 480 mg PO HS Fluticasone Nasal [place] [Flonase Nasal [place]] 1 spray EA NOSTRIL DAILY Furosemide [Lasix] 40 mg PO DAILY Hydrochlorothiazide [Hydrodiuril] 25 mg PO DAILY HYDROcodone/APAP 5-325MG [[place] 5-325] 1 tab PO Q6HR PRN PRN Reason: Pain Hydrocortisone Valerate 1 applic TOPICAL BID Levothyroxine Sodium 150 mcg PO DAILY Linagliptin [Tradjenta] 5 mg PO DAILY metFORMIN HCL 1,000 mg PO AC-BID Terbinafine [LamISIL] 250 mg PO DAILY Warfarin [Coumadin] 5 mg PO HS Warfarin [Coumadin] 2.5 mg PO HS Discontinued Clotrimazole/Betameth Cream [Lotrisone] 1 applic TOPICAL BID Sulfamethox-Tmp 800-160Mg [Bactrim DS 800-160 mg] 1 tab PO BID Discharge Medication List Acetaminophen Tab [Tylenol] 325 mg PO Q6H PRN 12/29/13 [History] Albuterol Inhaler [Ventolin Hfa Inhaler] 2 puff INHALATION RT-Q4H PRN 12/29/13 [ History] Budesonide/Formoterol Fumarate [Symbicort 160-4.5 Mcg Inhaler] 2 puff INHALATION RT-BID 12/29/13 [History] Metolazone [Zaroxolyn] 2.5 mg PO MOFR 12/29/13 [History] Omeprazole [PriLOSEC] 20 mg PO AC-BRKFST 12/29/13 [History] Spironolactone [Aldactone] 25 mg PO DAILY 12/29/13 [History] Montelukast [Singulair] 10 mg PO HS 12/06/15 [History] Baclofen 10 mg PO DAILY PRN 06/07/17 [History] Atorvastatin [Lipitor] 10 mg PO HS 10/04/17 [History] Cyclobenzaprine [Flexeril] 5 mg PO TID PRN 10/04/17 [History] Diltiazem Cd [Cardizem CD] 480 mg PO HS 10/04/17 [History] Fluticasone Nasal [place] [Flonase Nasal [place]] 1 spray EA NOSTRIL DAILY 10/04/17 [History] Furosemide [Lasix] 40 mg PO DAILY 10/04/17 [History] HYDROcodone/APAP 5-325MG [[place] 5-325] 1 tab PO Q6HR PRN 10/04/17 [History] Hydrochlorothiazide [Hydrodiuril] 25 mg PO DAILY 10/04/17 [History] Hydrocortisone Valerate 1 applic TOPICAL BID 10/04/17 [History] Levothyroxine Sodium 150 mcg PO DAILY 10/04/17 [History] Linagliptin [Tradjenta] 5 mg PO DAILY 10/04/17 [History] Terbinafine [LamISIL] 250 mg PO DAILY 10/04/17 [History] Warfarin [Coumadin] 2.5 mg PO HS 10/04/17 [History] Warfarin [Coumadin] 5 mg PO HS 10/04/17 [History] metFORMIN HCL 1,000 mg PO AC-BID 10/04/17 [History] Insulin Detemir [Levemir] 20 unit SQ HS #1 syr 10/08/17 [Rx] Cephalexin [Keflex] 500 mg PO TID #30 cap 10/09/17 [Rx] Follow up Appointment(s)/Referral(s): Tatyana Mora MD [Primary Care Provider] - 10/16/17 2:15 pm [facility] [NON-STAFF] - 10/15/17 (Wound healing center closed today , please call for appointment.) Ambulatory/Diagnostic Orders: Prothrombin Time INR [LAB.AMB] Time Frame: 10/11/17, Location: Determined By Patient Patient Instructions/Handouts: Cellulitis (DC), Peripheral Vascular Disease (DC ) Activity/Diet/Wound Care/Special Instructions: Cardiac, diabetic diet. Activity as tolerated. Wound care to be done SUN-SUN-SUN
--- NOTE | 2017-10-15 09:25 | CDI ---
Last Revision, July 2017 Documentation Clarification Form Date: 10/15/2017 9:05:00 AM From: FELISHA Richards; Marilyn Erazo, [employer] Admit Date: 10/04/2017 1:48:00 PM Patient Name: Antony De La Cruz Visit Number: [id number] Discharge Date: 10/10/2017 ATTENTION: The Clinical Documentation Specialists (CDI) and [facility] Coding Staff appreciate your assistance in clarifying documentation. Please respond to the clarification below the line at the bottom and electronically sign. The CDI & [facility] Coding staff will review the response and follow-up if needed. Please note: Queries are made part of the Legal Health Record. If you have any questions, please contact the author of this message via ITS. Dr. Johnny Lieberman The patient presented with cellulitis and ulceration of the legs. Wound culture grew group B strep. Vitals on admission BP 184/72, pulse 89, resp 20, temp 99.1, WBC 12.3 and lactic acid 3.5 Sepsis is questioned on admission but this diagnosis is not carried to the DS. In your professional opinion, can you please clarify? Sepsis ruled in Sepsis ruled out Other, please specify Unable to determine If you have a question about this query, please contact Marilyn Erazo [employer] at [phone] between 8am and 5pm. Possible sepsis MTDD
== END 2017-10-10 20:20 | disposition home or self-care (01) | DRG 872 ==
LOC: EC 11:59 → 4MS4W 13:48
PROVIDERS: ADMIT Hospitalist; ATTEND Hospitalist
DX: A41.9 Sepsis, unspecified organism (principal); D68.51 Activated protein C resistance; E11.51 Type 2 diabetes mellitus with diabetic peripheral angiopathy without gangrene; E11.622 Type 2 diabetes mellitus with other skin ulcer; L97.919 Non-pressure chronic ulcer of unspecified part of right lower leg with unspecified severity; L03.115 Cellulitis of right lower limb; L03.116 Cellulitis of left lower limb; L97.929 Non-pressure chronic ulcer of unspecified part of left lower leg with unspecified severity; B35.3 Tinea pedis; E03.9 Hypothyroidism, unspecified; E66.9 Obesity, unspecified; E78.5 Hyperlipidemia, unspecified; G43.109 Migraine with aura, not intractable, without status migrainosus; I10 Essential (primary) hypertension; I87.2 Venous insufficiency (chronic) (peripheral); I87.309 Chronic venous hypertension (idiopathic) without complications of unspecified lower extremity; I87.8 Other specified disorders of veins; J45.909 Unspecified asthma, uncomplicated; K21.9 Gastro-esophageal reflux disease without esophagitis; Z79.01 Long term (current) use of anticoagulants; Z79.51 Long term (current) use of inhaled steroids; Z79.84 Long term (current) use of oral hypoglycemic drugs; Z79.899 Other long term (current) drug therapy; Z82.49 Family history of ischemic heart disease and other diseases of the circulatory system; Z85.828 Personal history of other malignant neoplasm of skin; Z86.711 Personal history of pulmonary embolism; Z86.718 Personal history of other venous thrombosis and embolism; Z87.01 Personal history of pneumonia (recurrent); Z87.891 Personal history of nicotine dependence; Z90.49 Acquired absence of other specified parts of digestive tract; Z91.040 Latex allergy status; B95.1 Streptococcus, group B, as the cause of diseases classified elsewhere
CPT/HCPCS: 36415; 71046; 80048; 80051; 80053; 81003; 83036; 83605; 83880; 84484; 85025; 85610; 85730; 87040; 87070; 87086; 87205; 93005; 94640; 96365; 96366; 96375; 99284

== ENCOUNTER → 2017-10-22 | Outpatient (CLI) | payer MEDICARE, BC ==
[2017-10-22 15:30] LABS: INR 2.1 (<1.2); Prothrombin Time 18.6 sec (9.0-12.0)
== END | disposition home or self-care (01) ==
LOC: LABWHC1 15:02
PROVIDERS: ATTEND Family Medicine
DX: I82.593 Chronic embolism and thrombosis of other specified deep vein of lower extremity, bilateral (principal)
CPT/HCPCS: 36415; 85610

== ENCOUNTER → 2017-12-10 | Outpatient (CLI) | payer MEDICARE, BC ==
[2017-12-10 15:57] LABS: INR 1.7 (<1.2); Prothrombin Time 15.7 sec (9.0-12.0)
== END | disposition home or self-care (01) ==
LOC: LABWHC1 15:20
PROVIDERS: ATTEND Family Medicine
DX: E29.1 Testicular hypofunction (principal); Z51.81 Encounter for therapeutic drug level monitoring; Z79.01 Long term (current) use of anticoagulants
CPT/HCPCS: 36415; 84403; 85610

== ENCOUNTER → 2017-12-25 | Outpatient (CLI) | payer MEDICARE, BC ==
[2017-12-25 17:31] LABS: INR 1.6 (<1.2); Prothrombin Time 14.9 sec (9.0-12.0)
== END | disposition home or self-care (01) ==
LOC: LABWHC1 16:29
PROVIDERS: ATTEND Family Medicine
DX: E29.1 Testicular hypofunction (principal); Z79.01 Long term (current) use of anticoagulants
CPT/HCPCS: 36415; 84403; 85610

== ENCOUNTER → 2018-02-04 | Outpatient (CLI) | payer MEDICARE, BC ==
[2018-02-04 15:37] LABS: INR 2.5 (<1.2); Prothrombin Time 22.7 sec (9.0-12.0)
== END | disposition home or self-care (01) ==
LOC: LABWHC1 15:02
PROVIDERS: ATTEND Family Medicine
DX: E78.00 Pure hypercholesterolemia, unspecified (principal); E11.9 Type 2 diabetes mellitus without complications; E03.9 Hypothyroidism, unspecified; I82.593 Chronic embolism and thrombosis of other specified deep vein of lower extremity, bilateral
CPT/HCPCS: 36415; 80061; 83036; 84443; 85610

== ENCOUNTER → 2018-03-29 | Outpatient (CLI) | payer MEDICARE, BC ==
--- NOTE | 2018-03-29 13:08 | CT ---
EXAMINATION TYPE: CT brain wo con DATE OF EXAM: 03/29/2018 COMPARISON: None HISTORY: Increased frequency of migraines CT DLP: 1162.8 mGycm Automated exposure control for dose reduction was used. TECHNIQUE: CT scan of the head is performed without contrast. FINDINGS: There is no acute intracranial hemorrhage or midline shift identified. No suspicious extr a-axial fluid collection. Atherosclerosis is seen of the intracranial vasculature There is diffuse ve ntricular and sulcal prominence consistent with diffuse age-related cerebral atrophy. There is low-a ttenuation in the periventricular white matter consistent with chronic small vessel ischemic change. The globes are intact and the visualized sinuses are clear other than mild mucosal thickening within the right lateral maxillary sinus. IMPRESSION: 1. No acute intracranial process. 2. Mild burden nonspecific white matter change (most commonly on the basis of chronic microangiopathy although this can be seen in chronic migraines and other etiologies) and age-related cerebral atroph y. MRI could be performed if there is further clinical concern.
== END | disposition home or self-care (01) ==
LOC: RADCTMAIN 12:17
PROVIDERS: ATTEND Family Medicine
DX: G31.9 Degenerative disease of nervous system, unspecified (principal); R90.82 White matter disease, unspecified; G43.109 Migraine with aura, not intractable, without status migrainosus
CPT/HCPCS: 70450

== ENCOUNTER → 2018-04-12 | Outpatient (CLI) | payer MEDICARE, BC ==
[2018-04-12 16:42] LABS: Anisocytosis Slight; Basophils # (A) 0.1 k/uL (0-0.2); Basophils % (A) 1 %; Eosinophils # (A) 0.3 k/uL (0-0.7); Eosinophils % (A) 3 %; HCT 42.8 % (39.0-53.0); HGB 13.4 gm/dL (13.0-17.5); Hypochromasia Slight; Lymphocytes % (A) 10 %; MCH 26.5 pg (25.0-35.0); MCHC 31.2 g/dL (31.0-37.0); MCV 84.8 fL (80.0-100.0); Mean Platelet Volume 6.7; Monocytes # (A) 0.6 k/uL (0-1.0); Monocytes % (A) 6 %; Neutrophils % (A) 78 %; Platelet Count 242 k/uL (150-450); RBC 5.05 m/uL (4.30-5.90); RDW 17.6 % (11.5-15.5); WBC 10.1 k/uL (3.8-10.6)
[2018-04-12 16:57] LABS: INR 2.1 (<1.2); Prothrombin Time 18.8 sec (9.0-12.0)
== END | disposition home or self-care (01) ==
LOC: LABWHC1 15:34
PROVIDERS: ATTEND Family Medicine
DX: E29.1 Testicular hypofunction (principal); Z79.01 Long term (current) use of anticoagulants; R53.83 Other fatigue
CPT/HCPCS: 85025; 85610; 84403; 36415; G0103

== ENCOUNTER → 2018-05-13 | Outpatient (CLI) | payer MEDICARE, BC ==
[2018-05-14 04:24] LABS: Hemoglobin A1C 7.6 % (4.0-6.0)
== END | disposition home or self-care (01) ==
LOC: LABWHC1 15:15
PROVIDERS: ATTEND Family Medicine
DX: E11.9 Type 2 diabetes mellitus without complications (principal)
CPT/HCPCS: 36415; 83036

== ENCOUNTER → 2018-05-30 | Outpatient (CLI) | payer MEDICARE, BC ==
[2018-05-30 13:26] LABS: Anisocytosis Slight; HCT 45.4 % (39.0-53.0); Hypochromasia Moderate; MCH 25.8 pg (25.0-35.0); MCHC 30.8 g/dL (31.0-37.0); MCV 83.6 fL (80.0-100.0); Mean Platelet Volume 7.2; Platelet Count 312 k/uL (150-450); RBC 5.43 m/uL (4.30-5.90); RDW 16.9 % (11.5-15.5); WBC 9.5 k/uL (3.8-10.6)
[2018-05-30 13:43] LABS: Albumin 3.9 g/dL (3.5-5.0); Calcium 9.4 mg/dL (8.4-10.2); Potassium 4.6 mmol/L (3.5-5.1); Total Bilirubin 0.4 mg/dL (0.2-1.3); Total Protein 7.4 g/dL (6.3-8.2)
--- NOTE | 2018-05-30 14:43 | XR ---
EXAMINATION TYPE: XR cervical spine comp DATE OF EXAM: 05/30/2018 COMPARISON: NONE HISTORY: Pain TECHNIQUE: Four views are submitted. FINDINGS: The odontoid is intact. There are no compression deformities. The prevertebral soft tissue structur es are within normal limits. There is multilevel degenerative disc disease and facet arthropathy. Th ere is bilateral foraminal encroachment. Calcification the soft tissue the right neck likely is vascu lar. Alignment documented to the level of C7. IMPRESSION: 1. Multilevel degenerative and hypertrophic changes with multilevel facet arthropathy and foraminal e ncroachment. Follow-up MRI recommended.
== END | disposition home or self-care (01) ==
LOC: LABWHC1 13:07
PROVIDERS: ATTEND Surgery Vascular Surgery
DX: M47.812 Spondylosis without myelopathy or radiculopathy, cervical region (principal); M46.92 Unspecified inflammatory spondylopathy, cervical region; E63.8 Other specified nutritional deficiencies
CPT/HCPCS: 36415; 72050; 80053; 84134; 85027

== ENCOUNTER → 2018-06-24 | Outpatient (CLI) | payer MEDICARE, BC ==
[2018-06-24 15:54] LABS: INR 2.1 (<1.2); Prothrombin Time 19.1 sec (9.0-12.0)
== END | disposition home or self-care (01) ==
LOC: LABWHC1 14:54
PROVIDERS: ATTEND Family Medicine
DX: E29.1 Testicular hypofunction (principal); Z79.01 Long term (current) use of anticoagulants
CPT/HCPCS: 36415; 84403; 85610

== ENCOUNTER → 2018-08-16 | Outpatient (CLI) | payer MEDICARE, BC ==
[2018-08-17 02:53] LABS: Hemoglobin A1C 7.8 % (4.0-6.0)
== END | disposition home or self-care (01) ==
LOC: LABWHC1 13:49
PROVIDERS: ATTEND Family Medicine
DX: E78.00 Pure hypercholesterolemia, unspecified (principal); I10 Essential (primary) hypertension; E11.9 Type 2 diabetes mellitus without complications; Z86.711 Personal history of pulmonary embolism
CPT/HCPCS: 36415; 80061; 83036; 84450; 84460; 85610

== ENCOUNTER → 2018-10-15 | Outpatient (CLI) | payer MEDICARE, BC ==
--- NOTE | 2018-10-16 11:28 | ECHOF ---
Referral Reason:R01.1 Murmur MEASUREMENTS -------- HEIGHT: 182.9 cm WEIGHT: 145.1 kg BP: 169/79 RVIDd: 4.1 cm (< 3.3) IVSd: 1.6 cm (0.6 - 1.1) LVIDd: 5.4 cm (3.9 - 5.3) LVPWd: 1.5 cm (0.6 - 1.1) IVSs: 2.4 cm LVIDs: 3.5 cm LVPWs: 1.9 cm LA Diam: 3.8 cm (2.7 - 3.8) LAESV Index (A-L): 30.26 ml/m Ao Diam: 4.0 cm (2.0 - 3.7) AV Cusp: 1.6 cm (1.5 - 2.6) MV EXCURSION: 13.275 mm (> 18.000) MV EF SLOPE: 66 mm/s (70 - 150) EPSS: 1.8 cm MV E Ronnie: 0.93 m/s MV DecT: 312 ms MV A Ronnie: 1.10 m/s MV E/A Ratio: 0.85 AV maxP.77 mmHg AV meanP.28 mmHg RAP: 5.00 mmHg RVSP: 30.88 mmHg FINDINGS -------- Sinus rhythm. This was a technically adequate study. The left ventricular size is normal. There is moderate concentric left ventricular hypertrophy. O verall left ventricular systolic function is normal with, an EF between 60 - 65 %. The right ventricle is severely enlarged. LA is midly dilated 29-33ml/m2. The right atrium is normal in size. Aortic valve is trileaflet and is moderately thickened. There is moderate aortic stenosis present. Peak/mean gradient across the Aortic Valve is 38.77mmHg / 21.28mmHg. Mild mitral annular calcification present. Mild tricuspid regurgitation present. Right ventricular systolic pressure is normal at < 35 mmHg. The pulmonic valve was not well visualized. The aortic root is dilated measuring 4.0cm. IVC Not well visulized. There is no pericardial effusion. CONCLUSIONS -------- 1. Sinus rhythm. 2. This was a technically adequate study. 3. The left ventricular size is normal. 4. There is moderate concentric left ventricular hypertrophy. 5. Overall left ventricular systolic function is normal with, an EF between 60 - 65 %. 6. The right ventricle is severely enlarged. 7. LA is midly dilated 29-33ml/m2. 8. The right atrium is normal in size. 9. Aortic valve is trileaflet and is moderately thickened. 10. There is moderate aortic stenosis present. 11. Peak/mean gradient across the Aortic Valve is 38.77mmHg / 21.28mmHg. 12. Mild mitral annular calcification present. 13. Mild tricuspid regurgitation present. 14. Right ventricular systolic pressure is normal at < 35 mmHg. 15. The pulmonic valve was not well visualized. 16. The aortic root is dilated measuring 4.0cm. 17. IVC Not well visulized. 18. There is no pericardial effusion. BOX SORTER: Patrica Rodriguez RDCS
== END | disposition home or self-care (01) ==
LOC: RADECHMAIN 16:21
PROVIDERS: ATTEND Family Medicine
DX: I35.0 Nonrheumatic aortic (valve) stenosis (principal); I07.1 Rheumatic tricuspid insufficiency; I05.8 Other rheumatic mitral valve diseases
CPT/HCPCS: 93306

== ENCOUNTER → 2018-11-11 | Outpatient (CLI) | payer MEDICARE, BC ==
[2018-11-11 16:19] LABS: INR 1.3 (<1.2); Prothrombin Time 13.2 sec (9.0-12.0)
[2018-11-12 00:55] LABS: Hemoglobin A1C 8.1 % (4.0-6.0)
== END ==
LOC: LABWHC1 14:47
PROVIDERS: ATTEND Family Medicine
DX: E29.1 Testicular hypofunction (principal); E11.9 Type 2 diabetes mellitus without complications; Z79.01 Long term (current) use of anticoagulants
CPT/HCPCS: 36415; 83036; 84403; 85610

== ENCOUNTER 2018-11-20 16:03 | Inpatient (IN) | payer MEDICARE, BC ==
--- NOTE | 2018-11-20 16:48 | ED ---
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 Patient states that this past Sunday he felt as though he had influenza A states he had a fever and sore throat. Patient states that Sunday he noticed blotching and increased erythema and swelling of the right lower extremity. Patient states he began taking Bactrim every 12 hours for 3 days. He states he has taken a total of 6 pills. He states this seemed to help the fever subsided however the erythema continued to persist. Patient states he has had a previous history of MRSA. Patient denies any chest pain, shortness of breath, dyspnea on exertion. Patient states he has not noted increased drainage from his chronic right leg wound. Patient states his last INR was subtherapeutic due to decreased dosing for recent colonoscopy. Remaining review of systems negative, patient denies any recent back pain, abdominal pain, nausea or vomiting, numbness or tingling, dysuria or hematuria, constipation or diarrhea, headaches or visual changes, or any other complaints. Upon arrival patient appears well, nontoxic. Afebrile without tachycardia. - Related Data Home Medications Medication Instructions Recorded Confirmed Acetaminophen Tab [Tylenol] 325 mg PO Q6H PRN 12/29/13 11/11/18 Albuterol Inhaler [Ventolin Hfa 2 puff INHALATION RT-Q4H PRN 12/29/13 11/11/18 Inhaler] Budesonide/Formoterol Fumarate 2 puff INHALATION RT-BID 12/29/13 11/11/18 [Symbicort 160-4.5 Mcg Inhaler] Metolazone [Zaroxolyn] 2.5 mg PO MOFR 12/29/13 11/11/18 Omeprazole [PriLOSEC] 20 mg PO AC-BRKFST 12/29/13 11/11/18 Spironolactone [Aldactone] 50 mg PO DAILY 12/29/13 11/11/18 Montelukast [Singulair] 10 mg PO HS 12/06/15 11/11/18 Baclofen 10 mg PO DAILY PRN 06/07/17 11/11/18 Atorvastatin [Lipitor] 10 mg PO HS 10/04/17 11/11/18 Cyclobenzaprine [Flexeril] 5 mg PO TID PRN 10/04/17 11/11/18 Diltiazem Cd [Cardizem CD] 480 mg PO HS 10/04/17 11/11/18 Fluticasone Nasal [place] [Flonase 1 spray EA NOSTRIL DAILY 10/04/17 11/11/18 Nasal [place]] Furosemide [Lasix] 40 mg PO DAILY 10/04/17 11/11/18 HYDROcodone/APAP 5-325MG [[place] 1 tab PO Q6HR PRN 10/04/17 11/11/18 5-325] Hydrochlorothiazide [Hydrodiuril] 25 mg PO DAILY 10/04/17 11/11/18 Hydrocortisone Valerate 1 applic TOPICAL BID 10/04/17 11/11/18 Levothyroxine Sodium 150 mcg PO DAILY 10/04/17 11/11/18 Linagliptin [Tradjenta] 5 mg PO DAILY 10/04/17 11/11/18 Warfarin [Coumadin] 2.5 mg PO HS 10/04/17 11/11/18 Warfarin [Coumadin] 5 mg PO HS 10/04/17 11/11/18 metFORMIN HCL 1,000 mg PO AC-BID 10/04/17 11/11/18 Losartan-Hctz 50-12.5 mg [Hyzaar 50 mg PO DAILY 07/01/18 11/11/18 50-12.5] Allergies Allergy/AdvReac Type Severity Reaction Status Date / Time iodine Allergy Anaphylaxis Verified 11/20/18 17:02 latex Allergy Unknown Verified 11/20/18 17:02 lisinopril Allergy Cough Verified 11/20/18 17:02 shellfish derived Allergy Anaphylaxis Verified 11/20/18 17:02 codeine AdvReac Rapid Verified 11/20/18 17:02 Heart Rate Review of Systems ROS Statement: Those systems with pertinent positive or pertinent negative responses have been documented in the HPI. ROS Other: All systems not noted in ROS Statement are negative. Past Medical History Past Medical History: Blood Disorder, Cancer, Pneumonia, Thyroid Disorder Additional Past Medical History / Comment(s): occular migraines, seasonal allergies, SOB with activity, hx cellulitis, neuropathy, clotting disorder- Factor V- Leiden, basal cell skin ca, rfeceived shingles vaccine and hepatits a vaccine. History of Any Multi-Drug Resistant Organisms: MRSA Date of last positivie culture/infection: 2012 MDRO Source:: bilateral legs Past Surgical History: Cholecystectomy, Hernia Repair, Tonsillectomy Additional Past Surgical History / Comment(s): colonoscopy, basal cell carcinoma from scalp, nasal/sinus, meet filter.pilonsial cyst removed, rt index finger sx- removed calcium deposit Past Anesthesia/Blood Transfusion Reactions: No Reported Reaction Past Psychological History: No Psychological Hx Reported Smoking Status: Former smoker Past Alcohol Use History: Rare Past Drug Use History: None Reported - Past Family History Mother Family Medical History: Coronary Artery Disease (CAD), Rheumatoid Arthritis (RA) Additional Family Medical History / Comment(s): age 70 heart problems Father Family Medical History: No Reported History Additional Family Medical History / Comment(s): age 72 General Exam - General Exam Comments Initial Comments: General: The patient is awake and alert, in no distress. Eye: +3 mm pupils are equal, round and reactive to light, extra-ocular movements are intact. No nystagmus. There is normal conjunctiva bilaterally. No signs of icterus. Ears, nose, mouth and throat: There are moist mucous membranes and no oral lesions. Neck: The neck is supple, there is no tenderness or JVD. Cardiovascular: There is a regular rate and rhythm. No murmur, rub or gallop is appreciated. Respiratory: Lungs are clear to auscultation, respirations are non-labored, breath sounds are equal. No wheezes, stridor, rales, or rhonchi. Gastrointestinal: Soft, non-distended, non-tender abdomen without masses or organomegaly noted. There is no rebound or guarding present. No CVA tenderness. Bowel sounds are unremarkable. Musculoskeletal: Normal ROM, no tenderness. Strength 5/5. Sensation intact. DP pulses equal bilaterally 2+. Neurological: A&O x 3. CN II-XII intact, There are no obvious motor or sensory deficits. Coordination appears grossly intact. Speech is normal. Skin: Skin is warm and dry and no rashes or lesions are noted. Right sided lower extremity edema, with erythema extending from foot to mid upper thigh. Warm to palpation. Chronic leg wounds bilaterally, serosanginous drainage. Psychiatric: Cooperative, appropriate mood & affect, normal judgment. Limitations: no limitations Course Vital Signs 11/20/18 11/20/18 16:14 18:48 Temperature 98.7 F Pulse Rate 84 85 Respiratory 16 18 Rate Blood Pressure 129/63 142/87 O2 Sat by Pulse 93 L 95 Oximetry Medical Decision Making - Medical Decision Making 73-year-old male presents today for chief complaint of right lower extremity swelling. Patient states it feels identical to when he had cellulitis in the past. Patient has significant cellulitis greater than 50% of the right lower extremity circumferential. Patient has chronic wound of the right lower extremity lateral aspect. Patient has leukocytosis on laboratory studies as well as elevated lactic acid. Patient's been afebrile with heart rate within normal limits. Does not appear overtly toxic. Patient does have history of MRSA. Patient be started on broad-spectrum antibiotic as well as vancomycin. Given patient's history of deep venous thrombosis with possible subtherapeutic anticoagulation therapy and ultrasound of the right lower external ear was obtained, it was inconclusive for deep venous thrombosis given patient morbid obesity. At this time for swelling most likely due to infection. Patient neurovascularly intact. Denies chest pain shortness of breath. Hyperkalemia noted upon laboratory studies, we will repeat after IV hydration. Increase of c reatinine from baseline concern for risk of acute kidney injury however no acute kidney injury apparent at this time. Patient is agreeable to admission. Denies questions at this time. I discussed the case with him provider Dr. Lake who spoke with Dr Lieberman admitting provider. No further instruction at this time. Patient appears well throughout duration in emergency department upon multiple reevaluations. Transferred to the floor appearing well - Lab Data Result diagrams: 11/20/18 17:22 11/20/18 17:22 Lab Results 11/20/18 11/20/18 11/20/18 Range/Units 17:22 17:22 17:22 WBC 13.8 H (3.8-10.6) k/uL RBC 5.20 (4.30-5.90) m/uL Hgb 13.4 (13.0-17.5) gm/dL Hct 41.8 (39.0-53.0) % MCV 80.5 (80.0-100.0) fL MCH 25.8 (25.0-35.0) pg MCHC 32.1 (31.0-37.0) g/dL RDW 18.8 H (11.5-15.5) % Plt Count 262 (150-450) k/uL Neutrophils % 90 % Lymphocytes % 4 % Monocytes % 3 % Eosinophils % 2 % Basophils % 0 % Neutrophils # 12.5 H (1.3-7.7) k/uL Lymphocytes # 0.5 L (1.0-4.8) k/uL Monocytes # 0.4 (0-1.0) k/uL Eosinophils # 0.2 (0-0.7) k/uL Basophils # 0.0 (0-0.2) k/uL Anisocytosis Slight Microcytosis Slight Sodium 132 L (137-145) mmol/L Potassium 5.7 H (3.5-5.1) mmol/L Chloride 97 L (98-107) mmol/L Carbon Dioxide 23 (22-30) mmol/L Anion Gap 12 mmol/L BUN 41 H (9-20) mg/dL Creatinine 1.82 H (0.66-1.25) mg/dL Est GFR (CKD-EPI)AfAm 42 (>60 ml/min/1.73 sqM) Est GFR (CKD-EPI)NonAf 37 (>60 ml/min/1.73 sqM) Glucose 156 H (74-99) mg/dL Plasma Lactic Acid Christopher 2.8 H* (0.7-2.0) mmol/L Calcium 9.9 (8.4-10.2) mg/dL Total Bilirubin 0.5 (0.2-1.3) mg/dL AST 23 (17-59) U/L ALT 27 (21-72) U/L Alkaline Phosphatase 92 (38-126) U/L Total Protein 7.0 (6.3-8.2) g/dL Albumin 3.6 (3.5-5.0) g/dL Influenza Type A RNA (Not Detectd) Influenza Type B (PCR) (Not Detectd) 11/20/18 Range/Units 17:45 WBC (3.8-10.6) k/uL RBC (4.30-5.90) m/uL Hgb (13.0-17.5) gm/dL Hct (39.0-53.0) % MCV (80.0-100.0) fL MCH (25.0-35.0) pg MCHC (31.0-37.0) g/dL RDW (11.5-15.5) % Plt Count (150-450) k/uL Neutrophils % % Lymphocytes % % Monocytes % % Eosinophils % % Basophils % % Neutrophils # (1.3-7.7) k/uL Lymphocytes # (1.0-4.8) k/uL Monocytes # (0-1.0) k/uL Eosinophils # (0-0.7) k/uL Basophils # (0-0.2) k/uL Anisocytosis Microcytosis Sodium (137-145) mmol/L Potassium (3.5-5.1) mmol/L Chloride (98-107) mmol/L Carbon Dioxide (22-30) mmol/L Anion Gap mmol/L BUN (9-20) mg/dL Creatinine (0.66-1.25) mg/dL Est GFR (CKD-EPI)AfAm (>60 ml/min/1.73 sqM) Est GFR (CKD-EPI)NonAf (>60 ml/min/1.73 sqM) Glucose (74-99) mg/dL Plasma Lactic Acid Christopher (0.7-2.0) mmol/L Calcium (8.4-10.2) mg/dL Total Bilirubin (0.2-1.3) mg/dL AST (17-59) U/L ALT (21-72) U/L Alkaline Phosphatase (38-126) U/L Total Protein (6.3-8.2) g/dL Albumin (3.5-5.0) g/dL Influenza Type A RNA Not Detected (Not Detectd) Influenza Type B (PCR) Not Detected (Not Detectd) Disposition Clinical Impression: Cellulitis of right lower extremity, Hyperkalemia, Elevated lactic acid level, Leukocytosis Disposition: ADMITTED IP TO [facility] Condition: Stable Is patient prescribed a controlled substance at d/c from ED?: No Time of Disposition: 18:13 Decision to Admit Reason: Admit from EC Decision Date: 11/20/18 Decision Time: 18:13
[2018-11-20 17:37] LABS: Anisocytosis Slight; Basophils % (A) 0 %; Eosinophils # (A) 0.2 k/uL (0-0.7); Eosinophils % (A) 2 %; HCT 41.8 % (39.0-53.0); HGB 13.4 gm/dL (13.0-17.5); Lymphocytes # (A) 0.5 k/uL (1.0-4.8); Lymphocytes % (A) 4 %; MCH 25.8 pg (25.0-35.0); MCHC 32.1 g/dL (31.0-37.0); MCV 80.5 fL (80.0-100.0); Mean Platelet Volume 7.4; Microcytosis Slight; Monocytes # (A) 0.4 k/uL (0-1.0); Monocytes % (A) 3 %; Neutrophils # (A) 12.5 k/uL (1.3-7.7); Neutrophils % (A) 90 %; Platelet Count 262 k/uL (150-450); RDW 18.8 % (11.5-15.5); WBC 13.8 k/uL (3.8-10.6)
[2018-11-20 17:43] LABS: Albumin 3.6 g/dL (3.5-5.0); Calcium 9.9 mg/dL (8.4-10.2); Potassium 5.7 mmol/L (3.5-5.1); Total Bilirubin 0.5 mg/dL (0.2-1.3)
[2018-11-20] MEDS ORDERED: SODIUM CHLORIDE 0.9% 1,000 ML IV ONE (17:47)
--- NOTE | 2018-11-20 17:57 | US ---
EXAMINATION TYPE: US venous doppler duplex LE RT DATE OF EXAM: 11/20/2018 5:20 PM COMPARISON: NONE CLINICAL HISTORY: Pain. SIDE PERFORMED: TECHNIQUE: The lower extremity deep venous system is examined utilizing real time linear array sonog luisa with graded compression, doppler sonography and color-flow sonography. VESSELS IMAGED: External Iliac Vein (EIV) Common Femoral Vein Deep Femoral Vein Greater Saphenous Vein * Femoral Vein Popliteal Vein Small Saphenous Vein * Proximal Calf Veins (* superficial vessels) Morbidly obese patient with SEVERE leg swelling and edema. History of venous insufficiency, and DVT. Unable to visualize groin due to large panus. Right Leg: There appears to be some chronic dvt at level of femoral vein, believed to be chronic due to thready flow in vessel and anterior collateral. Unable to visualized groin, unable to see popliteal in compression views see above, unable to visuali ze distal popliteal vein or proximal calf veins. Severely limited study. IMPRESSION: There is evidence of at least chronic deep venous thrombosis in the right leg. We cannot evaluate very well the possibility of acute deep venous thrombosis.
[2018-11-20] MEDS ORDERED: VANCOMYCIN IV PER PHARMACY 1 EACH MISC MISCELLANE PRN (18:03)
[2018-11-20] MEDS ORDERED: NALOXONE 0.4 MG/ML 1 ML VIAL IV PRN (18:09)
[2018-11-20] MEDS ORDERED: VANCOMYCIN 2,000 MG in SODIUM CHLORIDE 0.9% 500 ML 500 ML IVPB ONE (18:30)
[2018-11-20] MEDS: HYDROcodone/APAP 7.5-325MG 1 EACH TAB PO PRN (18:45)
[2018-11-20] MEDS: SODIUM CHLORIDE 0.9% 1,000 ML IV SCH (18:47)
[2018-11-20 18:55] LABS: INR 1.3 (<1.2); Prothrombin Time 13.3 sec (9.0-12.0)
[2018-11-20 18:56] LABS: Partial Thromboplastin Time 29.9 sec (22.0-30.0)
[2018-11-20 18:57] LABS: Appearance,Urine Clear (Clear); Bilirubin,Urine Negative (Negative); Blood,Urine Negative (Negative); Color,Urine Yellow; Glucose,Urine (UA) Negative (Negative); Ketones,Urine Negative (Negative); Leukocyte Esterase,Urine Negative (Negative); Nitrite,Urine Negative (Negative); Protein,Urine Negative (Negative); Specific Gravity,Urine 1.017 (1.001-1.035); Urobilinogen,Urine <2.0 mg/dL (<2.0)
[2018-11-20 20:39] LABS: Glucose,Whole Blood 143 mg/dL (75-99)
[2018-11-20] MEDS ORDERED: CYCLOBENZAPRINE 5 MG TAB PO PRN (21:14)
[2018-11-20] MEDS ORDERED: WARFARIN 5 MG TAB PO SCH (21:30)
[2018-11-20] MEDS: ATORVASTATIN 10 MG TAB PO SCH (22:54)
[2018-11-20] MEDS: MONTELUKAST 10 MG TAB PO SCH (22:54)
[2018-11-20] MEDS: WARFARIN 7.5 MG TAB PO SCH (22:54)
[2018-11-20] MEDS: metFORMIN 500 MG TAB PO SCH (22:54)
[2018-11-20] MEDS: DILTIAZEM CD 240 MG CAP.ER.24H PO SCH (22:54)
[2018-11-21] MEDS: HYDROcodone/APAP 7.5-325MG 1 EACH TAB PO PRN ×3 (03:27→21:36)
[2018-11-21] MEDS: LEVOTHYROXINE 75 MCG TAB PO SCH (05:47)
[2018-11-21 07:00] LABS: Glucose,Whole Blood 147 mg/dL (75-99)
[2018-11-21] MEDS: INSULIN ASPART (NovoLOG) 100 UNIT/ML VIAL SQ SCH ×4 (07:40→21:36)
[2018-11-21] MEDS: metFORMIN 500 MG TAB PO SCH ×2 (07:41→17:05)
[2018-11-21] MEDS: ALBUTEROL NEBULIZED 2.5 MG/3 ML INHALATION PRN ×4 (08:42→21:50)
[2018-11-21] MEDS: SYMBICORT 160-4.5 MCG INHALER INHALATION SCH ×3 (08:43→21:51)
[2018-11-21 09:13] LABS: INR 1.4 (<1.2); Prothrombin Time 13.9 sec (9.0-12.0)
[2018-11-21 11:17] LABS: Glucose,Whole Blood 163 mg/dL (75-99)
[2018-11-21 11:55] VITALS: BMI 42.2
[2018-11-21] MEDS: SODIUM CHLORIDE 0.9% 1,000 ML IV SCH ×2 (12:05→21:37)
[2018-11-21 17:04] LABS: Glucose,Whole Blood 177 mg/dL (75-99)
[2018-11-21] MEDS: WARFARIN 7.5 MG TAB PO SCH (17:07)
[2018-11-21] MEDS ORDERED: VANCOMYCIN 2,000 MG in SODIUM CHLORIDE 0.9% 500 ML 500 ML IVPB SCH (18:00)
[2018-11-21 21:05] LABS: Glucose,Whole Blood 142 mg/dL (75-99)
[2018-11-21] MEDS ORDERED: BACLOFEN 10 MG TAB PO PRN (21:31)
[2018-11-21] MEDS: MONTELUKAST 10 MG TAB PO SCH (21:38)
[2018-11-21] MEDS: ATORVASTATIN 10 MG TAB PO SCH (21:42)
[2018-11-21] MEDS: DILTIAZEM CD 240 MG CAP.ER.24H PO SCH ×2 (21:42→21:59)
[2018-11-21] MEDS: DILTIAZEM ORAL 60 MG TAB PO SCH (21:51)
--- NOTE | 2018-11-21 23:39 | HP ---
HISTORY AND PHYSICAL DATE OF SERVICE: 11/21/2018. CHIEF COMPLAINT: Right leg swelling and erythema. HISTORY OF PRESENT ILLNESS: This 73-year-old gentleman with a past medical history of multiple medical problems including history of pneumonia, history of seasonal allergies, history of cellulitis, history of MRSA, history of cholecystectomy, being followed by Dr. Tatyana Mora in the outpatient is noted to have right leg swelling and erythema. The patient also has some pain also. The patient came to [facility] and was found to have hyperkalemia, hyponatremia, and renal failure. The patient was admitted for evaluation and treatment. There is no history of any fever or rigors. No history of headache, loss of consciousness, or seizures at this time. PAST MEDICAL HISTORY: History of pneumonia, history of ocular malignancy, history of cellulitis, neuropathy, history of factor 5 Leiden deficiency, cholecystectomy. HOME MEDICATIONS: 1. Zaroxolyn 2.5 mg Sunday, Sunday. 2. Metformin 1000 mg p.o. b.i.d. 3. Glucotrol 5 mg daily. 4. Coumadin 5 mg at bedtime. 5. Triamterene 37.5, 25 p.o. daily. 6. Aldactone 50 mg p.o. 7. K-Dur 40 mg p.o. b.i.d. 8. Prilosec 20 mg with breakfast. 9. Singular 10 mg at bedtime. 10.Losartan 50 mg p.o. daily. 11.Tradjenta 5 mg p.o. daily. 12.Levothyroxine 150 mcg p.o. daily. 13.Hydrocortisone 1 application b.i.d. 14.HydroDIURIL 25 mg p.o. daily. 15.[place] 5 mg every 6 hours p.r.n. 16.Lasix 40 mg p.o. daily. 17.Flonase 1 spray daily. 18.Diltiazem 120 mg p.o. t.i.d. 19.Flexeril 5 mg p.o. t.i.d. 20.Lotrimin 1 application b.i.d. 21.Symbicort 4.5 two puffs b.i.d. 22.Baclofen 10 mg daily p.r.n. 23.Lipitor 10 mg p.o. at bedtime. 24.Ventolin 2 puffs every 4 hours p.r.n. 25.Tylenol 325 mg every 6 hours p.r.n. ALLERGIES: IODINE, LATEX, SHELLFISH, CODEINE. FAMILY HISTORY: History of CAD, rheumatoid arthritis. SOCIAL HISTORY: Previous history of smoking. No history of alcohol intake. REVIEW OF SYSTEMS: ENT: No diminished vision or hearing. CARDIOVASCULAR: No angina. RESPIRATORY: No cough. GI: No nausea. : No dysuria. NEUROLOGY: No numbness or weakness. ALLERGY: None. MUSCULOSKELETAL: As mentioned. ENDOCRINE: Diabetes mellitus. CONSTITUTIONAL: As mentioned earlier. PHYSICAL EXAMINATION: Alert and oriented x3. Pulse is 71, blood pressure 123/62, respirations 16, temperature 97 degrees, pulse ox 97% on room air. HEENT: Conjunctivae normal. NECK: No jugular venous distention. No lymph node enlargement. CARDIOVASCULAR: S1 and S2. Breath sounds diminished at the bases. Bilateral scattered rhonchi. No crackles. ABDOMEN: Soft, obese, nontender. LEGS: Right leg swelling and erythema. Cellulitis present. Ulcer also present. NERVOUS SYSTEM: Peripheral neuropathy, otherwise mild diffuse weakness. LYMPHATICS: No lymph node enlargements. JOINTS: No active deformities or arthropathy. SKIN: As mentioned. LAB STUDIES: WBC 13.8, INR 1.3. Sodium 132, potassium 5.5, creatinine 1.8. ASSESSMENT: 1. Acute right leg cellulitis. 2. Increased WBC. 3. Hyponatremia. 4. Hyperkalemia, mild. 5. Possible acute renal failure with acute prerenal renal failure. 6. History of pneumonia. 7. History of seasonal allergies. 8. History of cellulitis. 9. History of peripheral neuropathy. 10.History of factor V Leiden deficiency. 11.History of basal cell carcinoma. 12.History of hypothyroidism. 13.Diabetes mellitus type 2. 14.History of MRSA. 15.History of cholecystectomy. 16.Obesity with body mass index of 42.2. RECOMMENDATIONS: This 73-year-old gentleman presented with multiple complex medical issues. We will monitor the patient closely. Continue the current management. Will initiate broad- spectrum IV antibiotics. Patient started on vancomycin. I would also recommend vancomycin. Will obtain cultures. I would also recommend an infectious disease evaluation. Otherwise, we will resume the home medications and continue to monitor. The patient was also seen by Dr. Ratliff in the Wound Care. We will also consult Dr. Ratliff for continued followup and evaluation. Overall prognosis guarded. See orders for details. Further recommendations to follow. Discussed with the patient who understands. Also obtain Infectious Disease evaluation also. MMODL / IJN: [id number] / MARY JO
[2018-11-22] MEDS: LEVOTHYROXINE 75 MCG TAB PO SCH (06:09)
[2018-11-22 06:53] LABS: Glucose,Whole Blood 195 mg/dL (75-99)
[2018-11-22] MEDS: SYMBICORT 160-4.5 MCG INHALER INHALATION SCH ×2 (08:06→19:47)
[2018-11-22] MEDS: INSULIN ASPART (NovoLOG) 100 UNIT/ML VIAL SQ SCH ×4 (08:10→20:29)
[2018-11-22] MEDS: metFORMIN 500 MG TAB PO SCH ×2 (08:10→17:51)
[2018-11-22] MEDS: PANTOPRAZOLE 40 MG TABLET PO SCH (08:11)
[2018-11-22 08:27] LABS: INR 1.5 (<1.2); Prothrombin Time 15.2 sec (9.0-12.0)
[2018-11-22 08:34] LABS: Calcium 9.3 mg/dL (8.4-10.2); Potassium 5.3 mmol/L (3.5-5.1)
[2018-11-22 08:39] LABS: Anisocytosis Slight; HGB 13.4 gm/dL (13.0-17.5); Hypochromasia Slight; MCH 25.8 pg (25.0-35.0); MCHC 31.2 g/dL (31.0-37.0); MCV 82.7 fL (80.0-100.0); Mean Platelet Volume 7.5; Microcytosis Slight; Platelet Count 277 k/uL (150-450); RDW 18.9 % (11.5-15.5); WBC 11.6 k/uL (3.8-10.6)
[2018-11-22] MEDS ORDERED: TRIAMCINOLONE ACET 0.5% CREAM 15 GM TUBE TOPICAL SCH (09:00)
[2018-11-22 09:09] LABS: Band Neutrophils % 1 %; Lymphocytes # (M) 1.04 k/uL (1.0-4.8); Metamyelocytes # (M) 0.12 k/uL (0); Metamyelocytes % 1 %; Monocytes # (M) 0.58 k/uL (0-1.0); Myelocytes # (M) 0.35 k/uL (0); Myelocytes % 3 %; Neutrophils % (M) 77 %; Nucleated Red Blood Cells 0 /100 WBC (0-0); Total Cells Counted 200
[2018-11-22] MEDS: FLUTICASONE 50MCG/SPRAY NASAL 16GM EA NOSTRIL SCH (09:10)
[2018-11-22] MEDS: DILTIAZEM ORAL 60 MG TAB PO SCH ×3 (09:10→20:28)
[2018-11-22] MEDS: CLOTRIMAZOLE 1% CREAM 15 GM TUBE TOPICAL SCH ×2 (09:51→20:28)
--- NOTE | 2018-11-22 10:53 | CONS ---
CONSULTATION This is a 73-year-old gentleman who is well known to me from the [facility]. He has been coming to see me for chronic venous hypertension and recurrent venostasis ulcer of both lower extremity. The patient had a history of DVT in the past. Patient has history of obesity. The patient came also with history of hyperkalemia, hyponatremia and renal failure. The patient has noticed marked swelling and cellulitis of the right lower extremity with venostasis ulcer of the right lower extremity. PERSONAL HISTORY: Patient is allergic to SILVER PRODUCTS, IODINE, LATEX, SHELLFISH and CODEINE. SOCIAL HISTORY: History of smoking in the past. No history of alcohol use. PHYSICAL EXAMINATION: Patient was seen in his room. NECK: Supple, trachea central. CHEST: Clear to auscultation. ABDOMEN: Soft. Brachial, radial and femoral pulses are present. The patient has marked swelling of the right lower extremity. There is venous stasis ulcer right lower extremity and some cellulitis of the thigh area. The patient had a venous ultrasound which showed there is chronic clot found to the femoral vein. Unable to visualize the femoral vein. IMPRESSION: History of chronic deep venous thrombosis of the right leg. The cardiology teacher could not identify the deep popliteal vein, but patient has a marked cellulitis of the extremity. PLAN: Patient will be getting IV antibiotic using vancomycin and wound culture and we will use steroid cream for the cellulitis. We cannot give the patient Silvadene cream because of his allergy and will use compression wrap. Will follow with you. MMODL / IJN: [id number] /
[2018-11-22] MEDS ORDERED: TRIAMCINOLONE ACET 0.1% OINTMENT 80 GM TUBE TOPICAL SCH (11:00)
[2018-11-22 11:03] LABS: Glucose,Whole Blood 86 mg/dL (75-99)
[2018-11-22] MEDS: SODIUM CHLORIDE 0.9% 1,000 ML IV SCH (11:04)
[2018-11-22] MEDS: TRIAMCINOLONE 0.1% CREAM 80 GM TUBE TOPICAL SCH ×2 (11:23→20:29)
[2018-11-22] MEDS: VANCOMYCIN 2,000 MG in SODIUM CHLORIDE 0.9% 500 ML 500 ML IVPB SCH (11:54)
[2018-11-22] MEDS: HYDROcodone/APAP 7.5-325MG 1 EACH TAB PO PRN ×3 (12:00→23:56)
[2018-11-22 16:57] LABS: Glucose,Whole Blood 152 mg/dL (75-99)
[2018-11-22] MEDS: WARFARIN 7.5 MG TAB PO SCH (17:56)
[2018-11-22 20:09] LABS: Glucose,Whole Blood 134 mg/dL (75-99)
[2018-11-22] MEDS: ATORVASTATIN 10 MG TAB PO SCH (20:28)
[2018-11-22] MEDS: MONTELUKAST 10 MG TAB PO SCH (20:28)
--- NOTE | 2018-11-22 20:29 | PN ---
PROGRESS NOTE DATE OF SERVICE: 11/22/2018 This 73-year-old gentleman who was admitted with acute right leg cellulitis, is on IV antibiotics. Vascular surgery is also following the patient closely. The patient also had chronic nonhealing wound on the right-fabian area. Compression wrap was used because of Silvadene allergy. No chest pain. No palpitations. No fever. EXAM: Alert and oriented x3. Pulse is 79. Blood pressure 150/76, respirations 16, temperature 97.2, pulse ox 94% on room air. HEENT: Conjunctivae normal. NECK: No jugular venous distention. Cardiovascular systems: S1, S2. RESPIRATORY: Breath sounds diminished in the bases. A few scattered rhonchi and crackles. Abdomen is soft, obese, nontender. Legs: Right leg cellulitis. NERVOUS SYSTEM: No focal deficits. LABS: INR 1.5. WBC 11.2, sodium 136, potassium 5.3. ASSESSMENT: 1. Acute right leg cellulitis with ulceration, chronic. 2. Increased WBC. 3. Hyponatremia. 4. Hyperkalemia, mild. 5. Acute renal failure with possible acute prerenal renal failure. Improved. 6. History of pneumonia. 7. History of seasonal allergies. 8. History of cellulitis. 9. History of peripheral neuropathy. 10.Factor V Leiden deficiency. 11.History of basal cell carcinoma. 12.History of hypothyroidism. 13.Diabetes type 2. 14.History of MRSA. 15.History of cholecystectomy. 16.Obesity with body mass index of 42.2. RECOMMENDATIONS AND DISCUSSION: Recommend to continue current medications, monitor and symptomatic treatment. Otherwise, at this time, I recommend closely follow with Infectious Disease and as well as vascular surgery. Guarded prognosis because of multiple complex medical issues. Further recommendations to follow. MMODL / IJN: [id number] /
--- NOTE | 2018-11-22 22:11 | CONS ---
CONSULTATION DATE OF SERVICE: 11/22/2018. REASON FOR CONSULTATION: Right lower extremity cellulitis. HISTORY OF PRESENT ILLNESS: The patient is a 73 -year-old male with a past medical history significant for recurrent right lower extremity DVT with a history of bilateral leg wounds. The patient presenting to the ER at [facility] on 11/20/2018 with chief complaints of right leg swelling and redness and pain that apparently has been going on since Sunday11/18/2018. The patient denies a history of any trauma. The patient has been complaining of dull aching pain to the right leg and intensity of 3 to 4 out of 10 and no radiation. Slight skin breakdown. No significant foul smelling drainage. The patient took Bactrim DS twice a day for 3-4 days. However, the patient did not have any improvement, but did mention that his fever seems to have improve. did have previous history of MRSA infection. The patient was evaluated by the ER physician. On arrival to the ER, the patient was noticed to be afebrile. The patient did have elevated white count of 13.8, creatinine was 1.22. Lower extremity Doppler suggestive of chronic DVT. The patient has been started on vancomycin. Infectious disease was consulted for further recommendation regarding antibiotic therapy. REVIEW OF SYSTEMS: CONSTITUTIONAL: Positive for weakness along with fever. EYES: No complaint. ENT no complaint. Respiratory: Shortness of breath. Cardiovascular: No chest pain. GENITOURINARY: No complaint. Gastrointestinal: No complaint. Musculoskeletal: No complaint. Integumentary: No complaint. Integumentary: As per HPI. Psychological: No complaint. Endocrine no complaint. Neurologic no complaint. PAST MEDICAL HISTORY: Hypothyroidism, pneumonia, DVT, Factor V Leiden deficiency, basal cell carcinoma of the skin, neuropathy, MRSA, infection, . PAST SURGICAL HISTORY: Cholecystectomy, hernia repair, tonsillectomy, colonoscopy, and basal cell carcinoma removed from the scalp. SOCIAL HISTORY: Remote history of smoking. No drinking or drug use. FAMILY HISTORY: Mother with history of coronary artery disease and . ALLERGIES: TO LISINOPRIL, SHELLFISH, CODEINE, IODINE AND LATEX. MEDICATION: Medications include the patient is currently on Tylenol, [place], Lipitor, baclofen, Symbicort, Flexeril, Glucotrol, NovoLog, Synthroid, Glucophage, Narcan, Protonix, vancomycin 2 g every 24 hours. EXAMINATION: Blood pressure is 135/75 with a pulse of 76, temperature 98.3. He is 94% on room air. General description is an elderly male lying in bed in no distress. No tachypnea or accessory muscles of respiration use. HEENT: Shows no pallor or scleral icterus. Oral mucosa membranes are dry. No pharyngeal erythema or thrush. Neck trachea central. No thyromegaly. Lungs unlabored breathing. Clear to auscultation anteriorly. No wheeze or crackles. Heart S1, S2. Regular rate. Abdomen soft, no tenderness. Right leg wound still dressed up by the RN as mentioned. No fluctuation. He did have erythema that is extending all the way to the medial thigh area. SKIN examination: No rashes or mass palpable. Neurological: Patient is awake, alert, oriented times three. Mood and affect normal. LABS: Hemoglobin is 13.4, admission white count was 13.8 with a BUN of 26, creatinine 1.2, potassium 5.3. Urine has been negative. Influenza serology was negative. Doppler was chronic DVT to the right leg. DIAGNOSTIC IMPRESSION AND PLAN: Patient admitted to the hospital with acute right lower extremity cellulitis in this patient who did have diffuse swelling and no redness, seemed to have some responded to the outpatient Bactrim DS therapy with concern for possible MRSA infection in this patient who did have a previous history of MRSA skin with cellulitis. PLAN: 1. Josh the area of redness. 2. Vancomycin pharmacy to dose target of 15 while watching Vanco trough and kidney function closely. 3. Compression dressing. Local wound care . 4. We will follow up on clinical condition and culture to further adjust medication if needed. Thank you for this consultation. We will follow the patient along with you. MMODL / IJN: [id number] /
[2018-11-23] MEDS: SODIUM CHLORIDE 0.9% 1,000 ML IV SCH ×2 (01:28→03:40)
[2018-11-23] MEDS: LEVOTHYROXINE 75 MCG TAB PO SCH (06:13)
[2018-11-23] MEDS: HYDROcodone/APAP 7.5-325MG 1 EACH TAB PO PRN (06:13)
[2018-11-23 06:56] LABS: Glucose,Whole Blood 163 mg/dL (75-99)
[2018-11-23] MEDS: SYMBICORT 160-4.5 MCG INHALER INHALATION SCH ×2 (08:22→20:56)
[2018-11-23] MEDS: metFORMIN 500 MG TAB PO SCH ×2 (08:35→16:57)
[2018-11-23] MEDS: PANTOPRAZOLE 40 MG TABLET PO SCH (08:35)
[2018-11-23] MEDS: INSULIN ASPART (NovoLOG) 100 UNIT/ML VIAL SQ SCH ×4 (08:36→21:59)
[2018-11-23] MEDS: DILTIAZEM ORAL 60 MG TAB PO SCH ×3 (08:36→22:00)
[2018-11-23 10:11] LABS: Anisocytosis Slight; HCT 42.3 % (39.0-53.0); HGB 13.1 gm/dL (13.0-17.5); Hypochromasia Moderate; MCV 83.7 fL (80.0-100.0); Mean Platelet Volume 7.4; Platelet Count 273 k/uL (150-450); RBC 5.06 m/uL (4.30-5.90); RDW 18.7 % (11.5-15.5)
[2018-11-23 10:12] LABS: INR 1.4 (<1.2); Prothrombin Time 13.9 sec (9.0-12.0)
[2018-11-23 10:38] LABS: Band Neutrophils % 3 %; Eosinophils # (M) 0.59 k/uL (0-0.7); Lymphocytes # (M) 0.82 k/uL (1.0-4.8); Metamyelocytes # (M) 0.47 k/uL (0); Metamyelocytes % 4 %; Myelocytes # (M) 0.35 k/uL (0); Myelocytes % 3 %; Neutrophils % (M) 73 %; Nucleated Red Blood Cells 1 /100 WBC (0-0); Total Cells Counted 200; WBC 11.7 k/uL (3.8-10.6)
[2018-11-23 11:10] LABS: Glucose,Whole Blood 131 mg/dL (75-99)
--- NOTE | 2018-11-23 13:00 | PN ---
PROGRESS NOTE Mr. De La Cruz is known to me from the wound clinic. He has been coming to the Wound Clinic on a regular basis. He has been admitted with cellulitis of the right lower extremity with no evidence of DVT. 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 The patient is on IV antibiotic and local wound care. We will continue the present treatment. At this point, no surgical intervention needed. When the patient discharged, I will follow in the wound clinic. MMODL / IJN: [id number] /
[2018-11-23] MEDS: CLOTRIMAZOLE 1% CREAM 15 GM TUBE TOPICAL SCH ×2 (14:11→22:00)
[2018-11-23] MEDS: TRIAMCINOLONE 0.1% CREAM 80 GM TUBE TOPICAL SCH ×2 (14:11→22:00)
[2018-11-23] MEDS: FLUTICASONE 50MCG/SPRAY NASAL 16GM EA NOSTRIL SCH (14:12)
[2018-11-23] MEDS: VANCOMYCIN 2,000 MG in SODIUM CHLORIDE 0.9% 500 ML 500 ML IVPB SCH (15:30)
[2018-11-23] MEDS: WARFARIN 7.5 MG TAB PO SCH (16:58)
[2018-11-23 17:04] LABS: Glucose,Whole Blood 187 mg/dL (75-99)
[2018-11-23 20:07] LABS: Glucose,Whole Blood 200 mg/dL (75-99)
[2018-11-23 21:21] LABS: Calcium 9.6 mg/dL (8.4-10.2); Potassium 5.4 mmol/L (3.5-5.1)
[2018-11-23] MEDS: ATORVASTATIN 10 MG TAB PO SCH (21:59)
[2018-11-23] MEDS: MONTELUKAST 10 MG TAB PO SCH (22:00)
--- NOTE | 2018-11-23 23:27 | PN ---
PROGRESS NOTE DATE OF SERVICE: 11/23/2018 This 73-year-old gentleman who was admitted with acute right leg cellulitis with ulceration which is rather acute on chronic, is being closely monitored. Dr. Ratliff is following the patient closely. The cultures are negative so far. Patient on broad IV antibiotics. Infectious disease is also following the patient closely. EXAM: Alert and oriented times three. Pulse 70. Blood pressure 130/70, respiration 17, temperature 98.9, pulse ox 98% on room air. HEENT: Conjunctivae normal. NECK: No jugular venous distention. CARDIOVASCULAR: S1, S2 muffled. RESPIRATORY: Breath sounds diminished in the bases. No rhonchi. No crackles. Abdomen is soft, nontender. Right leg cellulitis and ulceration present. Nervous system: No focal deficits. On exam, right leg cellulitis, erythema, slightly better. LABORATORY DATA: WBC 11.7. Accu-Cheks noted. Sodium 141, potassium 5.3. ASSESSMENT: 1. Acute right leg cellulitis and ulceration, acute on chronic. 2. Increased WBC. 3. Hypernatremia. 4. Hyperkalemia, mild. 5. Acute renal failure possibly acute prerenal renal failure improved. 6. History of pneumonia. 7. History of seasonal allergies. 8. History of cellulitis. 9. History of peripheral neuropathy. 10.History of factor V Leiden deficiency. 11.History of basal cell carcinoma. 12.History of hypothyroidism. 13.Diabetes mellitus type 2. 14.History of MRSA. 15.History of cholecystectomy. 16.Obesity with body mass index of 42.2. RECOMMENDATIONS AND DISCUSSION: Recommend to continue current medications, continue with monitoring, symptomatic treatment. Otherwise, at this time, I would recommend to continue with current medications. Continue with continued antibiotics. Cultures are pending at this time. The patient is on vancomycin. Guarded prognosis because of multiple complex medical issues. Further recommendations to follow. MMODL / IJN: [id number] /
[2018-11-24] MEDS: LEVOTHYROXINE 75 MCG TAB PO SCH (05:51)
[2018-11-24] MEDS: VANCOMYCIN 2,000 MG in SODIUM CHLORIDE 0.9% 500 ML 500 ML IVPB SCH (05:51)
[2018-11-24] MEDS: SODIUM CHLORIDE 0.9% 1,000 ML IV SCH ×2 (05:52→17:23)
[2018-11-24 07:04] LABS: Glucose,Whole Blood 150 mg/dL (75-99)
[2018-11-24 07:52] LABS: INR 1.5 (<1.2)
[2018-11-24] MEDS: SYMBICORT 160-4.5 MCG INHALER INHALATION SCH ×2 (08:00→19:55)
[2018-11-24 08:15] LABS: Calcium 9.4 mg/dL (8.4-10.2); Potassium 4.4 mmol/L (3.5-5.1)
[2018-11-24 08:27] LABS: Anisocytosis Slight; HGB 13.3 gm/dL (13.0-17.5); Hypochromasia Slight; MCH 25.9 pg (25.0-35.0); MCHC 31.7 g/dL (31.0-37.0); MCV 81.9 fL (80.0-100.0); Mean Platelet Volume 7.7; Microcytosis Slight; Platelet Count 337 k/uL (150-450); RBC 5.13 m/uL (4.30-5.90); RDW 18.9 % (11.5-15.5); WBC 13.7 k/uL (3.8-10.6)
[2018-11-24] MEDS: INSULIN ASPART (NovoLOG) 100 UNIT/ML VIAL SQ SCH ×4 (08:40→22:34)
[2018-11-24 09:07] LABS: Band Neutrophils % 1 %; Eosinophils # (M) 0.82 k/uL (0-0.7); Lymphocytes # (M) 2.06 k/uL (1.0-4.8); Metamyelocytes # (M) 0.55 k/uL (0); Metamyelocytes % 4 %; Monocytes # (M) 0.82 k/uL (0-1.0); Myelocytes # (M) 0.82 k/uL (0); Myelocytes % 6 %; Neutrophils % (M) 63 %; Nucleated Red Blood Cells 0 /100 WBC (0-0); Promyelocytes # (M) 0.14 k/uL (0); Promyelocytes % 1 %; Total Cells Counted 200
[2018-11-24 09:08] LABS: Poikilocytosis (M) Present; Polychromasia Present
[2018-11-24] MEDS: metFORMIN 500 MG TAB PO SCH ×2 (09:33→17:23)
[2018-11-24] MEDS: DILTIAZEM ORAL 60 MG TAB PO SCH ×3 (09:34→22:32)
[2018-11-24] MEDS: PANTOPRAZOLE 40 MG TABLET PO SCH (09:34)
[2018-11-24] MEDS: FLUTICASONE 50MCG/SPRAY NASAL 16GM EA NOSTRIL SCH (09:53)
[2018-11-24] MEDS: CLOTRIMAZOLE 1% CREAM 15 GM TUBE TOPICAL SCH ×2 (09:53→22:18)
[2018-11-24] MEDS: TRIAMCINOLONE 0.1% CREAM 80 GM TUBE TOPICAL SCH ×2 (09:53→22:18)
[2018-11-24 11:25] LABS: Glucose,Whole Blood 150 mg/dL (75-99)
[2018-11-24] MEDS: ceFAZolin IN SWFI 2 GM/20 ML SYRINGE IVP SCH ×2 (12:16→17:20)
[2018-11-24 17:16] LABS: Glucose,Whole Blood 121 mg/dL (75-99)
[2018-11-24] MEDS: WARFARIN 7.5 MG TAB PO SCH (17:23)
[2018-11-24 20:11] LABS: Glucose,Whole Blood 171 mg/dL (75-99)
--- NOTE | 2018-11-24 21:10 | PN ---
PROGRESS NOTE DATE OF SERVICE: 11/24/2018 This 73-year-old gentleman with a past medical history of multiple medical problems, including dizziness and cellulitis. The patient is being closely monitored. Patient on IV antibiotics. Patient also has chronic nonhealing ulcer on the right fabian area also. No chest pain. No palpitations. No fever. EXAM: Alert and oriented x3. The pulse is 78. Blood pressure 141/70, respiration 17, temperature 97.6, pulse ox 94% on room air. HEENT: Conjunctivae normal. NECK: No jugular venous distention. CARDIOVASCULAR: S1, S2 muffled. Respiratory: Breath sounds diminished in the bases. A few scattered rhonchi and cackles. Abdomen is soft, obese, nontender. Legs are no edema, no swelling. CENTRAL NERVOUS SYSTEM: No focal deficits. LABS: WBC 13.2, hemoglobin 7.3. Other labs are noted. ASSESSMENT: 1. Acute right leg cellulitis with ulceration, acute on chronic. 2. Increased WBC. 3. Hypernatremia. 4. Hyperkalemia, mild. 5. Acute renal failure possible acute prerenal renal failure, improved. 6. History of pneumonia. 7. History of seasonal allergies. 8. History of cellulitis. 9. History of peripheral neuropathy. 10.Factor 5 Leiden deficiency. 11.History of basal cell carcinoma. 12.History of hypothyroidism. 13.Diabetes type 2. 14.History of MRSA. 15.History of cholecystectomy. 16.Obesity with body mass index of 42.2. RECOMMENDATIONS AND DISCUSSION: Recommend to continue current medications, management and symptomatic treatment. Continue with broad-spectrum IV antibiotics. Follow the cultures. Closely follow with Infectious Disease and Vascular Surgery. Guarded prognosis. Further recommendations to follow. MMODL / IJN: [id number] /
[2018-11-24] MEDS: ATORVASTATIN 10 MG TAB PO SCH (22:32)
[2018-11-24] MEDS: MONTELUKAST 10 MG TAB PO SCH (22:33)
[2018-11-24] MEDS: ACETAMINOPHEN TAB 325 MG TAB PO PRN (22:33)
[2018-11-24] MEDS ORDERED: VANCOMYCIN TROUGH DUE 1 EACH MISC MISCELLANE ONE (23:00)
[2018-11-25] MEDS: ceFAZolin IN SWFI 2 GM/20 ML SYRINGE IVP SCH ×3 (00:24→17:42)
[2018-11-25] MEDS: VANCOMYCIN 2,000 MG in SODIUM CHLORIDE 0.9% 500 ML 500 ML IVPB SCH ×2 (00:24→17:43)
[2018-11-25] MEDS: SODIUM CHLORIDE 0.9% 1,000 ML IV SCH ×2 (03:33→17:43)
[2018-11-25] MEDS: LEVOTHYROXINE 75 MCG TAB PO SCH (05:52)
[2018-11-25 07:05] LABS: Glucose,Whole Blood 139 mg/dL (75-99)
[2018-11-25] MEDS: metFORMIN 500 MG TAB PO SCH ×2 (08:09→17:42)
[2018-11-25] MEDS: DILTIAZEM ORAL 60 MG TAB PO SCH ×3 (08:09→21:45)
[2018-11-25] MEDS: INSULIN ASPART (NovoLOG) 100 UNIT/ML VIAL SQ SCH ×4 (08:09→21:45)
[2018-11-25] MEDS: CLOTRIMAZOLE 1% CREAM 15 GM TUBE TOPICAL SCH ×2 (08:09→21:41)
[2018-11-25] MEDS: FLUTICASONE 50MCG/SPRAY NASAL 16GM EA NOSTRIL SCH (08:09)
[2018-11-25] MEDS: PANTOPRAZOLE 40 MG TABLET PO SCH (08:09)
[2018-11-25] MEDS: ACETAMINOPHEN TAB 325 MG TAB PO PRN (08:43)
[2018-11-25] MEDS: TRIAMCINOLONE 0.1% CREAM 80 GM TUBE TOPICAL SCH ×2 (08:43→21:41)
--- NOTE | 2018-11-25 09:56 | P.PN ---
Progress Note - Text Progress Note Date: 11/23/18 PROGRESS NOTE DATE OF SERVICE: 11/23/2018. REASON FOR FOLLOW UP: Right lower extremity cellulitis INTERVAL HISTORY: The patient is afebrile. The patient is breathing comfortably. Denies any chest pain. No nausea or vomiting no diarrhea. Right leg swelling redness has slightly decreased from the line that was placed history PHYSICAL EXAMINATION: Blood pressure is 150/90 with a pulse of 65, temperature 98.6, he is 96% on room air GENERAL DESCRIPTION: A elderly male up in the chair in no distress. RESPIRATORY SYSTEM: Unlabored breathing. Decreased breath sounds at the bases. HEART: S1, S2. Regular rate and rhythm. ABDOMEN: Soft, no tenderness. Bilateral leg still has significant swelling right leg redness decreased LABS: Reviewed blood culture so far negative. DIAGNOSTIC IMPRESSION AND PLAN: Patient with right lower extremity cellulitis this patient who did have diffuse swelling and redness And slow clinical response to vancomycin and we will add cefazolin 2 g every 8 and see response continue local wound care per vascular surgery and reevaluate the wound tomorrow
[2018-11-25 10:19] LABS: INR 1.4 (<1.2); Prothrombin Time 14.6 sec (9.0-12.0)
[2018-11-25 10:23] LABS: Anisocytosis Slight; HCT 43.8 % (39.0-53.0); HGB 13.3 gm/dL (13.0-17.5); Hypochromasia Slight; MCH 25.1 pg (25.0-35.0); MCHC 30.3 g/dL (31.0-37.0); MCV 82.8 fL (80.0-100.0); Mean Platelet Volume 6.8; Microcytosis Slight; Platelet Count 434 k/uL (150-450); RBC 5.29 m/uL (4.30-5.90); WBC 12.7 k/uL (3.8-10.6)
[2018-11-25 10:38] LABS: Calcium 9.7 mg/dL (8.4-10.2); Potassium 5.6 mmol/L (3.5-5.1)
[2018-11-25 11:02] LABS: Band Neutrophils % 3 %; Eosinophils # (M) 0.64 k/uL (0-0.7); Metamyelocytes # (M) 0.13 k/uL (0); Metamyelocytes % 1 %; Monocytes # (M) 0.51 k/uL (0-1.0); Myelocytes # (M) 0.76 k/uL (0); Myelocytes % 6 %; Neutrophils % (M) 73 %; Nucleated Red Blood Cells 0 /100 WBC (0-0); Total Cells Counted 200
[2018-11-25 11:03] LABS: Polychromasia Present
[2018-11-25 11:07] LABS: Glucose,Whole Blood 95 mg/dL (75-99)
[2018-11-25] MEDS: SYMBICORT 160-4.5 MCG INHALER INHALATION SCH ×2 (11:48→19:45)
--- NOTE | 2018-11-25 16:51 | PN ---
PROGRESS NOTE DATE OF SERVICE: 11/25/2018 REASON FOR FOLLOWUP: Right lower extremity cellulitis and venostasis ulcer. INTERVAL HISTORY: The patient is currently afebrile, has been breathing comfortably. He has been complaining of some pain to the right posterior knee area and more swelling. the patient denies having any chest pain or shortness of breath or cough. PHYSICAL EXAMINATION: Blood pressure 144/70 with a pulse of 79, temperature 96.8. General description is an elderly male lying in bed in no distress. RESPIRATORY SYSTEM: Unlabored breathing. Clear to auscultation anteriorly. HEART: S1, S2. Regular rate and rhythm. ABDOMEN: Soft. No tenderness. Right leg swelling and redness slightly decreased. Patient did have slough tissue on the wound. No drainage. LABS: BUN of 21, creatinine 1.14, white count of 12.2. DIAGNOSTIC IMPRESSION AND PLAN: Patient with right lower extremity venostasis ulcer with secondary cellulitis. The patient's wound did show more slough tissue; hence would recommend switching over local wound care to the [facility] followed by moist dressing, changing daily, and Zeus wrap to keep the swelling down. Continue with cefazolin and vancomycin, adjusting antibiotic further with clinical response, all on the PICC line at this point. Continue with supportive care. MMODL / IJN: [id number] /
[2018-11-25 17:31] LABS: Glucose,Whole Blood 169 mg/dL (75-99)
[2018-11-25] MEDS: WARFARIN 7.5 MG TAB PO SCH (17:43)
--- NOTE | 2018-11-25 20:48 | PN ---
PROGRESS NOTE DATE OF SERVICE: 11/25/2018 This 73-year-old gentleman who was admitted with acute cellulitis, is being closely monitored. Cultures are negative so far. Infectious Disease following the patient. No chest pain. No palpitations. No fever. EXAM: Alert and oriented times three. Pulse is 79. Blood pressure 144/70, respirations 16, temperature 98.8, pulse ox 94% on room air. HEENT: Conjunctivae normal. NECK: No jugular venous distention. CARDIOVASCULAR: S1, S2 muffled. RESPIRATORY: Breath sounds diminished in the bases. Bilateral scattered rhonchi and crackles. Abdomen is soft, nontender. Legs: Right leg cellulitis. No edema, no swelling. CENTRAL NERVOUS SYSTEM: No focal deficits. LAB STUDIES: WBC 12.7. INR is 1.2. Sodium 140, potassium 5.6. ASSESSMENT: 1. Acute right leg cellulitis with ulceration, acute on chronic. 2. Increased WBC. 3. Hypernatremia. 4. Hyperkalemia, mild. 5. Acute renal failure possibly acute prerenal acute renal failure, improved. 6. History of pneumonia. 7. History of seasonal allergies. 8. History of cellulitis. 9. History of peripheral neuropathy. 10.Factor 5 Leiden deficiency. 11.History of basal cell carcinoma. 12.History of hypothyroidism. 13.History of diabetes type 2. 14.History of MRSA. 15.History of cholecystectomy. 16.Obesity with body mass of 42.2. RECOMMENDATIONS AND DISCUSSION: Recommend to continue current medications, continue to monitor. Symptomatic treatment. Otherwise at this time I would recommend closely monitor. Otherwise continue the antibiotics. Prognosis guarded because of multiple complex medical issues. Further recommendations to follow. MMODL / IJN: [id number] /
[2018-11-25] MEDS: MONTELUKAST 10 MG TAB PO SCH (21:45)
[2018-11-25] MEDS: CEPHALEXIN 500 MG CAP PO SCH (21:45)
[2018-11-25] MEDS: ATORVASTATIN 10 MG TAB PO SCH (21:45)
[2018-11-25 23:10] LABS: Glucose,Whole Blood 128 mg/dL (75-99)
[2018-11-26] MEDS: LEVOTHYROXINE 75 MCG TAB PO SCH (05:41)
[2018-11-26 07:19] LABS: Glucose,Whole Blood 151 mg/dL (75-99)
[2018-11-26] MEDS: SYMBICORT 160-4.5 MCG INHALER INHALATION SCH ×2 (08:00→20:09)
[2018-11-26] MEDS: DILTIAZEM ORAL 60 MG TAB PO SCH ×3 (08:02→22:20)
[2018-11-26] MEDS: metFORMIN 500 MG TAB PO SCH ×2 (08:02→17:41)
[2018-11-26] MEDS: INSULIN ASPART (NovoLOG) 100 UNIT/ML VIAL SQ SCH ×4 (08:02→20:56)
[2018-11-26] MEDS: PANTOPRAZOLE 40 MG TABLET PO SCH (08:02)
[2018-11-26] MEDS: CEPHALEXIN 500 MG CAP PO SCH ×3 (08:02→22:20)
[2018-11-26] MEDS: FLUTICASONE 50MCG/SPRAY NASAL 16GM EA NOSTRIL SCH (08:03)
[2018-11-26] MEDS: TRIAMCINOLONE 0.1% CREAM 80 GM TUBE TOPICAL SCH ×2 (08:03→20:56)
[2018-11-26] MEDS: SODIUM CHLORIDE 0.9% 1,000 ML IV SCH (08:03)
[2018-11-26 11:15] LABS: Glucose,Whole Blood 129 mg/dL (75-99)
[2018-11-26 11:42] LABS: Anion Gap 9 mmol/L; Blood Urea Nitrogen 20 mg/dL (9-20); Calcium 9.5 mg/dL (8.4-10.2); Carbon Dioxide 28 mmol/L (22-30); Chloride 103 mmol/L (98-107); Glucose 117 mg/dL (74-99); Potassium 4.7 mmol/L (3.5-5.1); Sodium 140 mmol/L (137-145)
[2018-11-26 11:55] LABS: INR 1.6 (<1.2); Prothrombin Time 15.9 sec (9.0-12.0)
[2018-11-26] MEDS: CLOTRIMAZOLE 1% CREAM 15 GM TUBE TOPICAL SCH ×2 (11:59→20:55)
[2018-11-26 12:11] LABS: Anisocytosis Slight; Basophils # (A) 0.1 k/uL (0-0.2); Basophils % (A) 1 %; Eosinophils # (A) 0.4 k/uL (0-0.7); Eosinophils % (A) 3 %; HCT 40.1 % (39.0-53.0); HGB 12.5 gm/dL (13.0-17.5); Hypochromasia Slight; Lymphocytes % (A) 8 %; MCH 25.7 pg (25.0-35.0); MCHC 31.2 g/dL (31.0-37.0); MCV 82.2 fL (80.0-100.0); Mean Platelet Volume 6.8; Microcytosis Slight; Monocytes # (A) 0.5 k/uL (0-1.0); Monocytes % (A) 4 %; Neutrophils % (A) 82 %; Platelet Count 414 k/uL (150-450); RBC 4.88 m/uL (4.30-5.90); RDW 19.1 % (11.5-15.5); WBC 12.2 k/uL (3.8-10.6)
[2018-11-26] MEDS: VANCOMYCIN 2,000 MG in SODIUM CHLORIDE 0.9% 500 ML 500 ML IVPB SCH (14:34)
[2018-11-26 17:11] LABS: Glucose,Whole Blood 139 mg/dL (75-99)
--- NOTE | 2018-11-26 17:40 | PN ---
PROGRESS NOTE DATE OF SERVICE: 11/26/2018 REASON FOR FOLLOWUP: Right lower extremity cellulitis. INTERVAL HISTORY: The patient is currently afebrile. He is breathing comfortably. Denies having any chest pain or any cough. The right leg swelling and redness has decreased. The patient has lost his IV and is currently with no IV access. PHYSICAL EXAMINATION: Blood pressure 154/100 with a pulse of 81, temperature 96.9. He is 94% on room air. General description is an elderly male up in the bed in no distress. RESPIRATORY SYSTEM: Unlabored breathing. Clear to auscultation anteriorly. HEART: S1, S2. Regular rate and rhythm. ABDOMEN: Soft. No tenderness. Right leg swelling and redness has decreased. LABS: White count is down to 12,000. Blood culture has been negative. DIAGNOSTIC IMPRESSION AND PLAN: Patient with acute right lower extremity cellulitis, did have venostasis ulcer. The patient seems to have shown overall improvement on cefazolin, currently with no IV access. Antibiotic will be switched over to Keflex 500 mg p.o. q.6 hours for 10 days. Prescription has been sent to the pharmacy. Follow up in the office in one week. All his questions and concerns were answered. MMODL / IJN: [id number] /
[2018-11-26] MEDS: WARFARIN 7.5 MG TAB PO SCH (17:41)
[2018-11-26 20:45] LABS: Glucose,Whole Blood 130 mg/dL (75-99)
[2018-11-26] MEDS: MONTELUKAST 10 MG TAB PO SCH (20:49)
[2018-11-26] MEDS: ATORVASTATIN 10 MG TAB PO SCH (20:49)
--- NOTE | 2018-11-26 22:31 | PN ---
PROGRESS NOTE DATE OF SERVICE: 11/26/2018 This 73-year-old gentleman admitted with right leg cellulitis is improving significantly. Patient still has some erythema of the right leg. The patient had chronic ulceration of the foot also. Dr. Silva has seen the patient and recommended p.o. antibiotic at this time. No chest pain. No palpitations. No fever. On examination, alert and oriented x3. Pulse is 81, blood pressure 150/101, respiration 17, temperature 96.9, pulse ox 94% on room air. HEENT: Conjunctivae normal. NECK: No jugular venous distention. CARDIOVASCULAR SYSTEM: S1, S2 muffled. RESPIRATORY SYSTEM: Breath sounds diminished at the bases. A few scattered rhonchi. No crackles. ABDOMEN: Soft. LEGS: Right leg cellulitis. NERVOUS SYSTEM: No focal deficit. LABS: WBC 12.2, hemoglobin 12.5, sodium 140, potassium 4.7. ASSESSMENT: 1. Acute right leg cellulitis with ulceration, acute on chronic. 2. Increased white count. 3. Hyponatremia. 4. Hyperkalemia, mild. 5. Acute renal failure with possible acute prerenal renal failure, improved. 6. History of pneumonia. 7. History of seasonal allergies. 8. History of cellulitis. 9. History of peripheral neuropathy. 10.History of factor V Leiden deficiency. 11.History of basal cell carcinoma. 12.History of hypothyroidism. 13.History of diabetes mellitus, type 2. 14.History of methicillin-resistant Staphylococcus aeruginosa. 15.History of cholecystectomy. 16.Obesity with body mass index of 42.2. RECOMMENDATIONS AND DISCUSSION: I recommend to continue current management, continue with the monitoring, symptomatic treatment. Otherwise at this time I recommend continuing with the antibiotics. Closely follow with Infectious Disease. Guarded prognosis. Further recommendations to follow. MMODL / IJN: [id number] /
[2018-11-27] MEDS: ACETAMINOPHEN TAB 325 MG TAB PO PRN (03:19)
[2018-11-27] MEDS ORDERED: VANCOMYCIN TROUGH DUE 1 EACH MISC MISCELLANE ONE (05:00)
[2018-11-27] MEDS: LEVOTHYROXINE 75 MCG TAB PO SCH (05:10)
[2018-11-27 05:17] VITALS: BP 131/68; PULSE 78; RESP 20; TEMP 98
[2018-11-27 06:21] LABS: INR 1.8 (<1.2); Prothrombin Time 17.8 sec (9.0-12.0)
[2018-11-27 06:34] LABS: Potassium 5.1 mmol/L (3.5-5.1)
[2018-11-27 06:35] LABS: Calcium 9.5 mg/dL (8.4-10.2)
[2018-11-27 06:47] LABS: Glucose,Whole Blood 136 mg/dL (75-99)
[2018-11-27] MEDS: SYMBICORT 160-4.5 MCG INHALER INHALATION SCH (07:33)
[2018-11-27] MEDS: metFORMIN 500 MG TAB PO SCH (07:55)
[2018-11-27] MEDS: DILTIAZEM ORAL 60 MG TAB PO SCH (07:55)
[2018-11-27] MEDS: INSULIN ASPART (NovoLOG) 100 UNIT/ML VIAL SQ SCH ×2 (07:55→13:07)
[2018-11-27] MEDS: PANTOPRAZOLE 40 MG TABLET PO SCH (07:55)
[2018-11-27] MEDS: CEPHALEXIN 500 MG CAP PO SCH (07:55)
[2018-11-27] MEDS: CLOTRIMAZOLE 1% CREAM 15 GM TUBE TOPICAL SCH (07:56)
[2018-11-27] MEDS: TRIAMCINOLONE 0.1% CREAM 80 GM TUBE TOPICAL SCH (07:56)
[2018-11-27] MEDS: FLUTICASONE 50MCG/SPRAY NASAL 16GM EA NOSTRIL SCH (07:57)
[2018-11-27 11:07] LABS: Glucose,Whole Blood 153 mg/dL (75-99)
--- NOTE | 2018-11-27 14:05 | PN ---
PROGRESS NOTE DATE OF SERVICE: 11/27/2018 REASON FOR FOLLOWUP: Right lower extremity cellulitis. INTERVAL HISTORY: The patient is currently afebrile. Patient has been breathing comfortably. Right leg swelling has much improved. Denies having any chest pain, shortness of breath or cough. No abdominal pain, no diarrhea. PHYSICAL EXAMINATION: Blood pressure 131/68 with a pulse of 78, temperature 98, he is 94% on room air. General description is an elderly male, lying in bed in no distress. RESPIRATORY SYSTEM: Unlabored breathing, clear to auscultation anteriorly. HEART: S1, S2. Regular rate and rhythm. EXTREMITIES: Right leg swelling and redness has improved. LABS: BUN of 20, creatinine 1.6. DIAGNOSTIC IMPRESSION AND PLAN: The patient has acute right lower extremity cellulitis. The patient has shown overall improvement on the cefazolin. Currently on oral Keflex as the patient with no IV access. Recommend to continue the patient on oral Keflex 500 mg p.o. for another 10 days. Careful monitoring of his INR. Continue with Medihoney to the right leg wound followed by an Zeus wrap to keep the swelling down MMODL / IJN: [id number] /
--- NOTE | 2018-11-27 22:31 | DS ---
DISCHARGE SUMMARY DATE OF SERVICE: 11/27/2018. FINAL DIAGNOSES: 1. Acute right leg cellulitis with ulceration, acute on chronic. 2. Increased WBC. 3. Hyponatremia. 4. Hyperkalemia, mild. 5. Acute renal failure possibly acute renal failure, improved. 6. History of pneumonia. 7. History of seasonal allergies. 8. History of cellulitis. 9. History of neuropathy. 10.History of Factor V Leiden deficiency. 12.History of hypothyroidism. 13.History of diabetes type 2. 14.History of MRSA. 15.History of cholecystectomy. 16.Obesity with body mass index of 42.2. DISCHARGE DISPOSITION: The patient is being discharged in stable condition with guarded prognosis: Total time taken 35 minutes. HISTORY OF PRESENT ILLNESS: This 73-year-old gentleman with past medical history of multiple medical problems admitted with acute right leg cellulitis with ulceration, acute on chronic and history of broad-spectrum IV antibiotics. Cultures are negative so far. Dr. Silva saw the patient. Dr. Ratliff also saw the patient. Local treatment was recommended. On exam, vital signs stable. Right leg: Chronic ulcer with some surrounding erythema, cellulitis, much improved. DISCHARGE ADVICE AND MEDICATIONS: 1. Discharge diet is cardiac diet. 2. Activity limited until followup. 3. Follow up with Dr. Tatyana Mora in 2-3 days. 4. Follow up with Dr. Silva as recommended. MEDICATIONS ARE: As follows: 1. Aldactone 50 mg p.o. daily. 2. Baclofen 10 mg daily p.r.n. 3. Coumadin 2.5 mg q.h.s. and 5 mg p.o. q.h.s. 4. Diltiazem 120 mg p.o. t.i.d. 5. Flexeril 5 mg t.i.d. p.r.n. 6. Flonase 1 spray daily. 7. Glucotrol 5 mg p.o. daily. 8. Hydrocortisone b.i.d. 9. HydroDIURIL 25 mg p.o. daily. 10.K-Dur 40 mEq p.o. b.i.d. 11.Lasix 40 mg p.o. daily. 12.Levothyroxine 150 mcg p.o. daily. 13.Lipitor 10 mg p.o. q.h.s. 14.Losartan 50 mg p.o. daily. 15.Lotrimin 1 application b.i.d. 16.Metformin 1000 mg b.i.d. 17.[place] 5 mg q.6h p.r.n. 18.Prilosec 20 mg a.c. breakfast. 19.Singular 10 mg q.h.s. 20.Symbicort 160/4.5 two puffs b.i.d. 21.Tradjenta 5 mg p.o. daily. 22.Triamterene hydrochlorothiazide 1 p.o. daily. 23.Tylenol p.r.n. 24.Ventolin 1-2 puffs q.4h p.r.n. 25.Zaroxolyn 2.5 mg Sunday, Sunday. 26.Keflex 500 mg q.6h for 10 days. Once again, the patient is being discharged in stable condition with guarded prognosis. MMODL / IJN: [id number] / MTDD
== END 2018-11-27 15:01 | disposition home or self-care (01) | DRG 603 ==
LOC: EC 16:03 → 3NMEDONC 18:08
PROVIDERS: ADMIT Hospitalist; ATTEND Hospitalist
DX: L03.115 Cellulitis of right lower limb (principal); L97.819 Non-pressure chronic ulcer of other part of right lower leg with unspecified severity; D68.51 Activated protein C resistance; E87.1 Hypo-osmolality and hyponatremia; I87.333 Chronic venous hypertension (idiopathic) with ulcer and inflammation of bilateral lower extremity; N17.9 Acute kidney failure, unspecified; Z68.41 Body mass index [BMI] 40.0-44.9, adult; L97.519 Non-pressure chronic ulcer of other part of right foot with unspecified severity; Z86.718 Personal history of other venous thrombosis and embolism; Z79.01 Long term (current) use of anticoagulants; E03.9 Hypothyroidism, unspecified; E11.40 Type 2 diabetes mellitus with diabetic neuropathy, unspecified; Z79.84 Long term (current) use of oral hypoglycemic drugs; E66.9 Obesity, unspecified; E87.5 Hyperkalemia; I87.8 Other specified disorders of veins; Z79.51 Long term (current) use of inhaled steroids; Z79.890 Hormone replacement therapy; Z79.899 Other long term (current) drug therapy; Z82.49 Family history of ischemic heart disease and other diseases of the circulatory system; Z85.828 Personal history of other malignant neoplasm of skin; Z86.14 Personal history of Methicillin resistant Staphylococcus aureus infection; Z87.01 Personal history of pneumonia (recurrent); Z87.891 Personal history of nicotine dependence; Z90.49 Acquired absence of other specified parts of digestive tract; Z91.040 Latex allergy status; Z88.8 Allergy status to other drugs, medicaments and biological substances; Z88.5 Allergy status to narcotic agent; Z91.013 Allergy to seafood; Z82.61 Family history of arthritis; Z85.840 Personal history of malignant neoplasm of eye
CPT/HCPCS: 36415; 80048; 80053; 80202; 81003; 83605; 84132; 85025; 85610; 85730; 87040; 87070; 87086; 87502; 94640; 96365; 96366; 96367; 99284

== ENCOUNTER → 2018-12-02 | Outpatient (CLI) | payer MEDICARE, BC ==
[2018-12-02 16:19] LABS: Anisocytosis Slight; Basophils # (A) 0.1 k/uL (0-0.2); Basophils % (A) 1 %; Eosinophils # (A) 0.3 k/uL (0-0.7); Eosinophils % (A) 3 %; HCT 40.6 % (39.0-53.0); HGB 12.8 gm/dL (13.0-17.5); Hypochromasia Slight; Lymphocytes # (A) 0.8 k/uL (1.0-4.8); Lymphocytes % (A) 9 %; MCHC 31.6 g/dL (31.0-37.0); MCV 82.2 fL (80.0-100.0); Mean Platelet Volume 7.2; Microcytosis Slight; Monocytes # (A) 0.5 k/uL (0-1.0); Monocytes % (A) 5 %; Neutrophils # (A) 7.3 k/uL (1.3-7.7); Neutrophils % (A) 81 %; Platelet Count 375 k/uL (150-450); RBC 4.94 m/uL (4.30-5.90)
[2018-12-02 16:32] LABS: INR 1.6 (<1.2); Prothrombin Time 16.1 sec (9.0-12.0)
[2018-12-02 23:14] LABS: Anion Gap 9.3 mmol/L (4.00-12.00); Calcium 9.4 mg/dL (8.7-10.3); Carbon Dioxide 27.7 mmol/L (21.6-31.8)
== END | disposition home or self-care (01) ==
LOC: LABWHC1 14:51
PROVIDERS: ATTEND Hospitalist
DX: L03.90 Cellulitis, unspecified (principal)
CPT/HCPCS: 36415; 80048; 85025; 85610

== ENCOUNTER 2019-01-06 16:26 | Inpatient (IN) | payer MEDICARE, BC ==
[2019-01-06] MEDS ORDERED: HYDROcodone/APAP 5-325MG 1 EACH TAB PO STA (16:50)
[2019-01-06] MEDS ORDERED: VANCOMYCIN IV PER PHARMACY 1 EACH MISC MISCELLANE PRN (16:50)
--- NOTE | 2019-01-06 16:53 | ED ---
General Adult HPI - General Chief complaint: Skin/Abscess/Foreign Body Stated complaint: Leg pain Time Seen by Provider: 01/06/19 16:41 Source: patient Mode of arrival: wheelchair Limitations: no limitations - History of Present Illness Initial comments: 73-year-old male presenting with left lower extremity swelling and erythema that began on Sunday. Patient states he has a history of venous stasis cellulitis and ulcerations. He started taking Bactrim on Sunday but states the swelling and redness has progressed. He admits to a elevated temperature of 100F on Sunday but states she's been afebrile since. He admits to decreased appetite and feeling more tired. Patient states he has a long history of lower extremity cellulitis with wounds. He sees a wound clinic who told him to come to the emergency department today. He admits to a chronic wound on his right lower extremity,which is improved and has not had any purulent drainage. He doesn't a history of factor V [place], and is currently on Coumadin for which he has been compliant. He denies any recent history of DVTs. - Related Data Home Medications Medication Instructions Recorded Confirmed Albuterol Inhaler [Ventolin Hfa 2 puff INHALATION RT-Q4H PRN 12/29/13 01/06/19 Inhaler] Budesonide/Formoterol Fumarate 2 puff INHALATION RT-BID 12/29/13 01/06/19 [Symbicort 160-4.5 Mcg Inhaler] Omeprazole [PriLOSEC] 20 mg PO AC-BRKFST 12/29/13 01/06/19 Atorvastatin [Lipitor] 10 mg PO HS 10/04/17 01/06/19 Warfarin [Coumadin] 2.5 mg PO HS 10/04/17 01/06/19 Warfarin [Coumadin] 5 mg PO HS 10/04/17 01/06/19 metFORMIN HCL 1,000 mg PO AC-BID 10/04/17 01/06/19 Diltiazem HCl 120 mg PO TID 11/21/18 01/06/19 Losartan Potassium 50 mg PO DAILY 11/21/18 01/06/19 Triamterene/Hydrochlorothiazid 1 tab PO DAILY 11/21/18 01/06/19 [Triamterene-Hctz 37.5-25 mg Tb] glipiZIDE XL [Glucotrol XL] 5 mg PO DAILY 11/21/18 01/06/19 Sulfamethox-Tmp 800-160Mg [Bactrim 1 tab PO BID 01/06/19 01/06/19 DS 800-160 mg] tiZANidine [Zanaflex] 4 mg PO TID 01/06/19 01/06/19 Allergies Allergy/AdvReac Type Severity Reaction Status Date / Time iodine Allergy Anaphylaxis Verified 01/06/19 16:48 latex Allergy Unknown Verified 01/06/19 16:48 lisinopril Allergy Cough Verified 01/06/19 16:48 shellfish derived Allergy Anaphylaxis Verified 01/06/19 16:48 codeine AdvReac Rapid Verified 01/06/19 16:48 Heart Rate Review of Systems ROS Statement: Those systems with pertinent positive or pertinent negative responses have been documented in the HPI. Review of Systems Constitutional: Positive fever, chills Eyes: Denies change in vision, Denies pain Ears, nose, mouth, throat: Denies headaches, Denies sore throat Cardiovascular: Denies chest pain. Denies palpitations Respiratory: Denies shortness of breath, Denies cough Gastrointestinal: Denies abdominal pain. Denies nausea, vomiting, diarrhea. Genitourinary: Denies hematuria, Denies infections Musculoskeletal: Denies pain, Denies swelling Integumentary: Positive redness Neurological: Denies headache, focal weakness, focal numbness Psychiatric: Denies anxiety, Denies depression Hematologic/Lymphatic: Denies easy bleeding or bruising ROS Other: All systems not noted in ROS Statement are negative. Past Medical History Past Medical History: Blood Disorder, Cancer, Pneumonia, Thyroid Disorder Additional Past Medical History / Comment(s): occular migraines, seasonal allergies, SOB with activity, hx cellulitis, neuropathy, clotting disorder- Factor V- Leiden, basal cell skin ca(folicular) , received shingles vaccine and hepatits a vaccine, hypothyrodism, Type 2 diabetes, medication controlled History of Any Multi-Drug Resistant Organisms: MRSA Date of last positivie culture/infection: 2012 MDRO Source:: bilateral legs Past Surgical History: Cholecystectomy, Hernia Repair, Tonsillectomy Additional Past Surgical History / Comment(s): colonoscopy, basal cell carcinoma from scalp, nasal/sinus, meet filter.pilonsial cyst removed, rt index finger sx- removed calcium deposit, umbilical hernia Past Anesthesia/Blood Transfusion Reactions: No Reported Reaction Past Psychological History: No Psychological Hx Reported Smoking Status: Former smoker Past Alcohol Use History: Rare Past Drug Use History: None Reported - Past Family History Mother Family Medical History: Coronary Artery Disease (CAD), Rheumatoid Arthritis (RA) Additional Family Medical History / Comment(s): age 70 heart problems- RA. Father Family Medical History: No Reported History Additional Family Medical History / Comment(s): age 72 General Exam - General Exam Comments Initial Comments: General: Awake, alert, No acute Distress HENT: Normocephalic. Atraumatic Eyes: PERRL. EOMI. No scleral icterus. No injected conjunctiva Neck: Full ROM Chest/Lungs: Clear to auscultation bilaterally. No wheezing, rhonchi, or rales Cardiac: Regular rate, rhythm. No murmurs or rubs Abdomen/GI: Soft, nontender, nondistended. No rebound, guarding, or rigidity. Ventral hernia. Soft and reducible Musculoskeletal: Full ROM. BLE edema : No swelling or redness of groin. No crepitus Skin: Warm, dry. Chronic RLE wound with granulation tissue and no purulent drainage or erythema. Erythema and swelling of LLE from midfoot to inferior to knee. No crepitus of either extremity. Neurologic: A/Ox3, no weakness, no sensory deficit, no abnormal gait, no coordination deficit Limitations: no limitations Course Vital Signs 01/06/19 01/06/19 01/06/19 16:33 18:25 20:05 Temperature 98.6 F 98.4 F Pulse Rate 73 75 70 Respiratory 20 16 16 Rate Blood Pressure 130/73 131/75 120/78 O2 Sat by Pulse 97 96 92 L Oximetry 01/06/19 21:08 Temperature 98.4 F Pulse Rate 63 Respiratory 16 Rate Blood Pressure 121/69 O2 Sat by Pulse 95 Oximetry Medical Decision Making - Medical Decision Making 73-year-old male presenting with cellulitis of his left lower extremity. Initi al exam the patient is awake, alert, no acute distress. VSS. Patient does have erythema and swelling on 50% of the left lower extremity. His right lower extremity wound is clean and dry and does not appear infected at this time. Patient's laboratory workup did not show an elevated leukocytosis or an elevated lactate the patient's CRP was 148 and his ESR was 86. His INR was subtherapeutic. His lower extremity doppler was limited secondary to body habitus but was otherwise negative. I spoke with Dr. Cates who is agreeable to admission. Patient was given Vancomycin in the department. - Lab Data Result diagrams: 01/06/19 17:05 01/06/19 17:05 Lab Results 01/06/19 01/06/19 01/06/19 Range/Units 17:05 17:05 17:05 WBC 8.7 (3.8-10.6) k/uL RBC 4.70 (4.30-5.90) m/uL Hgb 12.6 L (13.0-17.5) gm/dL Hct 39.3 (39.0-53.0) % MCV 83.5 (80.0-100.0) fL MCH 26.9 (25.0-35.0) pg MCHC 32.2 (31.0-37.0) g/dL RDW 17.7 H (11.5-15.5) % Plt Count 296 (150-450) k/uL Neutrophils % 81 % Lymphocytes % 6 % Monocytes % 5 % Eosinophils % 5 % Basophils % 1 % Neutrophils # 7.1 (1.3-7.7) k/uL Lymphocytes # 0.5 L (1.0-4.8) k/uL Monocytes # 0.4 (0-1.0) k/uL Eosinophils # 0.4 (0-0.7) k/uL Basophils # 0.1 (0-0.2) k/uL Anisocytosis Slight ESR 86 H (0-15) mm/hr PT (9.0-12.0) sec INR (<1.2) Sodium 136 L (137-145) mmol/L Potassium 4.7 (3.5-5.1) mmol/L Chloride 102 (98-107) mmol/L Carbon Dioxide 26 (22-30) mmol/L Anion Gap 8 mmol/L BUN 20 (9-20) mg/dL Creatinine 1.19 (0.66-1.25) mg/dL Est GFR (CKD-EPI)AfAm 71 (>60 ml/min/1.73 sqM) Est GFR (CKD-EPI)NonAf 61 (>60 ml/min/1.73 sqM) Glucose 103 H (74-99) mg/dL Plasma Lactic Acid Christopher 1.4 (0.7-2.0) mmol/L Calcium 9.2 (8.4-10.2) mg/dL C-Reactive Protein 148.6 H (<10.0) mg/L 01/06/19 Range/Units 17:05 WBC (3.8-10.6) k/uL RBC (4.30-5.90) m/uL Hgb (13.0-17.5) gm/dL Hct (39.0-53.0) % MCV (80.0-100.0) fL MCH (25.0-35.0) pg MCHC (31.0-37.0) g/dL RDW (11.5-15.5) % Plt Count (150-450) k/uL Neutrophils % % Lymphocytes % % Monocytes % % Eosinophils % % Basophils % % Neutrophils # (1.3-7.7) k/uL Lymphocytes # (1.0-4.8) k/uL Monocytes # (0-1.0) k/uL Eosinophils # (0-0.7) k/uL Basophils # (0-0.2) k/uL Anisocytosis ESR (0-15) mm/hr PT 16.3 H (9.0-12.0) sec INR 1.6 H (<1.2) Sodium (137-145) mmol/L Potassium (3.5-5.1) mmol/L Chloride (98-107) mmol/L Carbon Dioxide (22-30) mmol/L Anion Gap mmol/L BUN (9-20) mg/dL Creatinine (0.66-1.25) mg/dL Est GFR (CKD-EPI)AfAm (>60 ml/min/1.73 sqM) Est GFR (CKD-EPI)NonAf (>60 ml/min/1.73 sqM) Glucose (74-99) mg/dL Plasma Lactic Acid Christopher (0.7-2.0) mmol/L Calcium (8.4-10.2) mg/dL C-Reactive Protein (<10.0) mg/L Disposition Clinical Impression: Cellulitis of left lower extremity, Subtherapeutic international normalized ratio (INR), Chronic cutaneous venous stasis ulcer Disposition: ADMITTED IP TO THIS HOSP Condition: Good Decision to Admit Reason: Admit from EC Decision Date: 01/06/19 Decision Time: 19:16
[2019-01-06] MEDS ORDERED: VANCOMYCIN 2,000 MG in SODIUM CHLORIDE 0.9% 500 ML 500 ML IVPB STA (16:54)
[2019-01-06 17:14] LABS: Anisocytosis Slight; Basophils # (A) 0.1 k/uL (0-0.2); Basophils % (A) 1 %; Eosinophils # (A) 0.4 k/uL (0-0.7); Eosinophils % (A) 5 %; HCT 39.3 % (39.0-53.0); HGB 12.6 gm/dL (13.0-17.5); Lymphocytes # (A) 0.5 k/uL (1.0-4.8); Lymphocytes % (A) 6 %; MCH 26.9 pg (25.0-35.0); MCHC 32.2 g/dL (31.0-37.0); MCV 83.5 fL (80.0-100.0); Mean Platelet Volume 6.9; Monocytes # (A) 0.4 k/uL (0-1.0); Monocytes % (A) 5 %; Neutrophils # (A) 7.1 k/uL (1.3-7.7); Neutrophils % (A) 81 %; Platelet Count 296 k/uL (150-450); RDW 17.7 % (11.5-15.5); WBC 8.7 k/uL (3.8-10.6)
[2019-01-06 17:19] LABS: INR 1.6 (<1.2); Prothrombin Time 16.3 sec (9.0-12.0)
[2019-01-06 17:29] LABS: Calcium 9.2 mg/dL (8.4-10.2); Potassium 4.7 mmol/L (3.5-5.1)
[2019-01-06 17:48] LABS: C Reactive Protein 148.6 mg/L (<10.0)
[2019-01-06 17:56] LABS: Erythrocyte Sedimentation Rate 86 mm/hr (0-15)
--- NOTE | 2019-01-06 18:40 | US ---
EXAMINATION TYPE: US venous doppler duplex LE LT DATE OF EXAM: 01/06/2019 6:28 PM COMPARISON: NONE CLINICAL HISTORY: Pain. Left leg pain and swelling x 4 days. Hx DVT bilateral extremities. Pt on coum terri. SIDE PERFORMED: Left TECHNIQUE: The lower extremity deep venous system is examined utilizing real time linear array sonog luisa with graded compression, doppler sonography and color-flow sonography. VESSELS IMAGED: External Iliac Vein (EIV) Common Femoral Vein Deep Femoral Vein Greater Saphenous Vein * Femoral Vein Popliteal Vein Small Saphenous Vein * Proximal Calf Veins (* superficial vessels) *large body habitus. Left Leg: No evidence of DVT in the left lower extremity, although study is limited. Patient unable to tolerate compression in the distal femoral vein. Limited visibility distal femoral vein and poplit eal vein due to body habitus. Color flow visualized in all vessels. Thready flow noted in right commo n femoral vein. IMPRESSION: No evidence of deep venous thrombosis in the left leg.
[2019-01-06] MEDS ORDERED: ACETAMINOPHEN TAB 325 MG TAB PO PRN (19:16)
[2019-01-06] MEDS ORDERED: NALOXONE 0.4 MG/ML 1 ML VIAL IV PRN (19:16)
[2019-01-06] MEDS ORDERED: ONDANSETRON 4 MG/2 ML VIAL IVP PRN (19:16)
[2019-01-06] MEDS ORDERED: ALBUTEROL NEBULIZED 2.5 MG/3 ML INHALATION PRN (19:18)
[2019-01-06] MEDS ORDERED: WARFARIN 2.5 MG TAB PO SCH (21:00)
[2019-01-06] MEDS ORDERED: WARFARIN 5 MG TAB PO SCH (21:00)
[2019-01-06] MEDS ORDERED: WARFARIN 10 MG TAB PO ONE (21:00)
[2019-01-06] MEDS ORDERED: HYDROmorphone 0.5 MG/0.5 ML SYRINGE IVP PRN (21:35)
[2019-01-06 21:45] LABS: Glucose,Whole Blood 107 mg/dL (75-99)
[2019-01-06] MEDS: SYMBICORT 160-4.5 MCG INHALER INHALATION SCH (21:53)
[2019-01-06] MEDS: ATORVASTATIN 10 MG TAB PO SCH (22:13)
[2019-01-06] MEDS: DILTIAZEM ORAL 60 MG TAB PO SCH (22:13)
[2019-01-06] MEDS: tiZANidine 4 MG TAB PO SCH (22:13)
--- NOTE | 2019-01-06 22:43 | HP ---
HISTORY AND PHYSICAL CHIEF COMPLAINTS: Pain and swelling of the left leg. HISTORY OF PRESENT ILLNESS: This 73-year-old gentleman with a past medical history of multiple medical problems including history of chronic cellulitis of bilateral legs, history of pneumonia, history of hypothyroidism, history of ocular migraines, seasonal allergies, cholecystectomy, being followed by Dr. Tatyana Mora in the outpatient setting, was also being at the wound care clinic. The patient also had an ulcer on the right lower leg area which is still draining but apparently for Dr. Ratliff. Currently the patient noted severe pain and swelling and fever, rigors and chills with the redness and swelling of the left leg and the patient given outpatient antibiotics. Because of lack of improvement, the patient came to [facility] and was admitted for further evaluation and treatment. There is no history of headache, loss of consciousness or seizures at this time time. CRP is 148. the AISR is 86. PAST MEDICAL HISTORY: History of pneumonia, history of recurrent cellulitis, history of shortness of breath, history of neuropathy, factor 5 Leiden deficiency, history of MRSA, history of cholecystectomy, history of hernia repair. MEDICATIONS: Prior to admission include home medications are: 1. Zanaflex 4 mg p.o. t.i.d. 2. Metformin 1000 mg p.o. b.i.d. 3. Glucotrol XL 5 mg p.o. 4. Coumadin 5 mg q.h.s., 2.5 mg q.h.s. at bedtime. 5. Triamterene/hydrochlorothiazide 37.5 mg/25 mg p.o. daily. 6. Bactrim DS 1 p.o. b.i.d. 7. Prilosec 20 mg p.o. b.i.d. 8. Losartan 50 mg p.o. daily. 9. Diltiazem 120 mg p.o. 10.Symbicort 160/4.5 two puffs b.i.d. 11.Lipitor 10 mg q.h.s. 12.Ventolin HFA 2 puffs q.4h p.r.n. ALLERGIES: IODINE, LATEX, LISINOPRIL, SHELLFISH AND CODEINE. FAMILY HISTORY: History of CAD, rheumatoid arthritis. SOCIAL HISTORY: Previous history of smoking. No history of current smoking, alcohol intake. REVIEW OF SYSTEMS: ENT: Diminished hearing and diminished vision. CARDIOVASCULAR: No angina or palpitations. RESPIRATORY: As mentioned earlier. GI no nausea or vomiting. no dysuria. NERVOUS SYSTEM: No numbness or weakness. ALLERGY/IMMUNOLOGY: No asthma or hayfever. MUSCULOSKELETAL as mentioned earlier. HEMATOLOGY/ENDOCRINE: No history of anemia. ENDOCRINE: As mentioned earlier. CONSTITUTIONAL: As mentioned earlier. Dermatology: Negative. Rheumatology: Negative. Psychiatry: As mentioned earlier. PHYSICAL EXAM: The patient is alert and oriented times three. Pulse 78, blood pressure 130/77, respirations 20, temperature 98 degrees, pulse ox 94% on room air. HEENT: Conjunctivae normal. Oral mucosa moist. NECK: No jugular venous distention. No carotid bruit. No lymph nodes enlargement. CARDIOVASCULAR: S1-S2 muffled. No S3, no S4. RESPIRATORY: Breath sounds diminished in the bases. A few scattered rhonchi. No crackles. ABDOMEN: Soft, obese, nontender. LEGS: Bilateral leg swelling and erythema and tenderness present, left more than the right. On the right leg, there is an ulcer which is grade 2-3, which is draining which appears to be healing at this time but some tenderness in the toes also present. NERVOUS SYSTEM: Higher functions as mentioned earlier. No focal motor or sensory deficit. LYMPHATICS: No lymph nodes palpable in the neck, axillae or groin. JOINTS: No active deforming arthropathy. LABS: WBC 8.3, hemoglobin 12.6, and other labs are reviewed. Sodium 136 and C- reactive 148.6. ASSESSMENT: 1. Acute cellulitis of the left lower extremity. 2. Right leg ulcer, chronic and nonhealing. 3. Hyponatremia. 4. History of pneumonia. 5. History of hypothyroidism. 6. History of ocular migraine. 7. History of cellulitis. 8. History of peripheral neuropathy. 9. History of factor 5 Leiden deficiency. 10.History of hypothyroidism. 11.Diabetes mellitus type 2. 12.History of Methicillin-resistant Staphylococcus aureus. 13.Obesity with body mass of 41.2. 14.Remote history of nicotine dependence. RECOMMENDATIONS AND DISCUSSION: In this 73-year-old gentleman who presented with multiple complex medical issues, we will monitor the patient closely, continue the current medications, management and symptomatic treatment. I will initiate broad-spectrum IV antibiotics also on Vanco, obtain cultures. Infectious disease evaluation was requested. Continue to monitor PT and INR. Continue the home medications. Guarded prognosis because of multiple complex medical issues. Further recommendations to follow. MMODL / IJN: [id number] / MARY JO
[2019-01-07] MEDS: PIPERACILLIN-TAZOBACTAM 3.375 GM in SODIUM CHLORIDE 0.9% 100 ML IVPB SCH ×3 (00:02→16:13)
[2019-01-07] MEDS: HYDROcodone/APAP 5-325MG 1 EACH TAB PO PRN ×2 (02:20→07:36)
[2019-01-07] MEDS: VANCOMYCIN 2,000 MG in SODIUM CHLORIDE 0.9% 500 ML 500 ML IVPB SCH ×2 (06:18→21:47)
[2019-01-07 07:03] LABS: Glucose,Whole Blood 112 mg/dL (75-99)
[2019-01-07] MEDS: INSULIN ASPART (NovoLOG) 100 UNIT/ML VIAL SQ SCH ×4 (07:07→21:23)
[2019-01-07] MEDS: metFORMIN 500 MG TAB PO SCH ×2 (07:31→16:59)
[2019-01-07] MEDS: PANTOPRAZOLE 40 MG TABLET PO SCH (07:32)
[2019-01-07] MEDS: LOSARTAN 50 MG TAB PO SCH (07:32)
[2019-01-07] MEDS: TRIAMTERENE-HCTZ 37.5-25MG 1 EACH TAB PO SCH (07:33)
[2019-01-07] MEDS: tiZANidine 4 MG TAB PO SCH ×3 (07:33→21:47)
[2019-01-07] MEDS: SYMBICORT 160-4.5 MCG INHALER INHALATION SCH ×2 (07:43→19:10)
[2019-01-07] MEDS: DILTIAZEM ORAL 60 MG TAB PO SCH ×3 (09:36→21:47)
[2019-01-07 10:26] VITALS: BMI 41.1
[2019-01-07 10:27] LABS: INR 1.7 (<1.2); Prothrombin Time 16.9 sec (9.0-12.0)
[2019-01-07 10:29] LABS: Anisocytosis Slight; Basophils # (A) 0.1 k/uL (0-0.2); Basophils % (A) 1 %; Eosinophils # (A) 0.6 k/uL (0-0.7); Eosinophils % (A) 8 %; HCT 41.9 % (39.0-53.0); HGB 12.9 gm/dL (13.0-17.5); Lymphocytes # (A) 0.6 k/uL (1.0-4.8); Lymphocytes % (A) 8 %; MCHC 30.9 g/dL (31.0-37.0); MCV 84.3 fL (80.0-100.0); Mean Platelet Volume 7.1; Monocytes # (A) 0.3 k/uL (0-1.0); Monocytes % (A) 4 %; Neutrophils # (A) 6.2 k/uL (1.3-7.7); Neutrophils % (A) 78 %; Platelet Count 289 k/uL (150-450); RBC 4.97 m/uL (4.30-5.90); RDW 17.9 % (11.5-15.5)
[2019-01-07 10:35] LABS: Calcium 9.2 mg/dL (8.4-10.2)
[2019-01-07 11:38] LABS: Glucose,Whole Blood 106 mg/dL (75-99)
[2019-01-07 16:59] LABS: Glucose,Whole Blood 156 mg/dL (75-99)
[2019-01-07] MEDS ORDERED: WARFARIN 10 MG TAB PO ONE (18:00)
[2019-01-07 20:47] LABS: Glucose,Whole Blood 76 mg/dL (75-99)
[2019-01-07] MEDS: ATORVASTATIN 10 MG TAB PO SCH (21:47)
[2019-01-07 22:37] LABS: Glucose,Whole Blood 130 mg/dL (75-99)
[2019-01-07] MEDS: ceFAZolin IN SWFI 2 GM/20 ML SYRINGE IVP SCH (22:45)
[2019-01-08] MEDS ORDERED: HYDROcodone/APAP 5-325MG 1 EACH TAB ONE (02:25)
[2019-01-08] MEDS: SYMBICORT 160-4.5 MCG INHALER INHALATION SCH ×2 (06:53→21:07)
[2019-01-08 07:03] LABS: Glucose,Whole Blood 129 mg/dL (75-99)
[2019-01-08] MEDS: INSULIN ASPART (NovoLOG) 100 UNIT/ML VIAL SQ SCH ×4 (07:14→21:04)
[2019-01-08] MEDS: LOSARTAN 50 MG TAB PO SCH (07:36)
[2019-01-08] MEDS: PANTOPRAZOLE 40 MG TABLET PO SCH (07:36)
[2019-01-08] MEDS: metFORMIN 500 MG TAB PO SCH ×2 (07:36→17:21)
[2019-01-08] MEDS: tiZANidine 4 MG TAB PO SCH ×3 (07:37→21:04)
[2019-01-08] MEDS: TRIAMTERENE-HCTZ 37.5-25MG 1 EACH TAB PO SCH (07:37)
[2019-01-08] MEDS: DILTIAZEM ORAL 60 MG TAB PO SCH ×3 (07:37→21:04)
--- NOTE | 2019-01-08 08:31 | CONS ---
DATE OF CONSULTATION: 01/07/2019 This is a 73-year-old gentleman who is well known to me from the wound clinic. He came yesterday to wound clinic with cellulitis of the left lower extremity with redness and pain. The patient came to the ER has been admitted. The patient has history of chronic DVT in the right lower extremity and has a chronic venous stasis ulcer right lower extremity. We have been treating with local wound care and compression wrap. MEDICAL HISTORY: The patient's medical history includes history of diabetes, obesity, chronic venous hypertension. PHYSICAL EXAMINATION: On examination, patient was seen in his room. NECK: Supple. Trachea central. CHEST: Clear to auscultation. ABDOMEN: Soft. Femorals are 1+ bilateral. Patient has some cellulitis of the left lower extremity and the patient has venous stasis ulcer right lower extremity. PLAN: We will continue with local wound care using Medihoney gel. The patient has an IV antibiotic, leg elevation. At this point, no role of surgical intervention. The patient needs IV antibiotic. We will follow in the wound clinic next Sunday. MMODL / MEERAN: [id number] / MARY JO
[2019-01-08] MEDS: ceFAZolin IN SWFI 2 GM/20 ML SYRINGE IVP SCH ×3 (08:39→23:37)
[2019-01-08 09:47] LABS: INR 2.1 (<1.2); Prothrombin Time 20.4 sec (9.0-12.0)
[2019-01-08 09:49] LABS: Anisocytosis Slight; Basophils # (A) 0.1 k/uL (0-0.2); Basophils % (A) 1 %; Eosinophils # (A) 0.6 k/uL (0-0.7); Eosinophils % (A) 7 %; HCT 42.4 % (39.0-53.0); HGB 12.7 gm/dL (13.0-17.5); Hypochromasia Slight; Lymphocytes # (A) 0.8 k/uL (1.0-4.8); Lymphocytes % (A) 9 %; MCH 25.4 pg (25.0-35.0); MCHC 29.9 g/dL (31.0-37.0); MCV 85.1 fL (80.0-100.0); Mean Platelet Volume 6.9; Monocytes # (A) 0.4 k/uL (0-1.0); Monocytes % (A) 4 %; Neutrophils # (A) 6.5 k/uL (1.3-7.7); Neutrophils % (A) 77 %; Platelet Count 315 k/uL (150-450); RBC 4.98 m/uL (4.30-5.90); RDW 17.8 % (11.5-15.5); WBC 8.4 k/uL (3.8-10.6)
[2019-01-08 09:58] LABS: Calcium 9.1 mg/dL (8.4-10.2)
[2019-01-08 12:16] LABS: Glucose,Whole Blood 107 mg/dL (75-99)
--- NOTE | 2019-01-08 14:46 | P.CONS ---
History of Present Illness - Reason for Consult Consult date: 01/07/19 Right leg wound and left lower extremity cellulitis Requesting physician: Johnny Lieberman - Chief Complaint Left leg pain swelling and redness 3 days - History of Present Illness Patient is a 73 year old male with a past medical history significant for chronic nonhealing wound to the right anterior leg area with the patient for a couple of months now, patient is not presenting to the [facility] ER with chief complains of left leg pain swelling and redness that apparently started on the weekend and has been there for about 3 days before he presented to the hospital, patient described the pain to be severe almost another grandmother he presented to the hospital increased with hanging it down with associated swelling and redness, patient on presentation to the hospital was evaluated by the ER physician patient did not have any fever or elevated white count patient did have left lower extremity Doppler, that was negative for DVT the patient has been started on vancomycin and Zosyn and infectious disease was consulted for further recommendation regarding antibiotic therapy. Patient currently with no open wounds on the left leg did have more of a diffuse swelling and redness denies having any history of any trauma Review of Systems CONSTITUTIONAL: Positive for weakness. Chills but denies high-grade Fever EYES: No complaint. ENT:No complaint. RESPIRATORY: No complaint. CARDIOVASCULAR: No complaint. GENITOURINARY: No complaint. GASTROINTESTINAL: No complaint. MUSCULOSKELETAL: No complaint. INTEGUMENTARY: As per history of present PSYCHOLOGICAL: No complaint. ENDOCRINE: No complaint. NEUROLOGIC: No complaint. Past Medical History Past Medical History: Blood Disorder, Cancer, Pneumonia, Thyroid Disorder Additional Past Medical History / Comment(s): occular migraines, seasonal allergies, SOB with activity, hx cellulitis, neuropathy, clotting disorder- Factor V- Leiden, basal cell skin ca(folicular) , received shingles vaccine and hepatits a vaccine, hypothyrodism, Type 2 diabetes, medication controlled History of Any Multi-Drug Resistant Organisms: MRSA Year Discovered:: 2012 MDRO Source:: bilateral legs Past Surgical History: Cholecystectomy, Hernia Repair, Tonsillectomy Additional Past Surgical History / Comment(s): colonoscopy, basal cell carcinoma from scalp, nasal/sinus, meet filter.pilonsial cyst removed, rt index finger sx- removed calcium deposit, umbilical hernia Past Anesthesia/Blood Transfusion Reactions: No Reported Reaction Past Psychological History: No Psychological Hx Reported Smoking Status: Former smoker Past Alcohol Use History: Rare Past Drug Use History: None Reported - Past Family History Mother Family Medical History: Coronary Artery Disease (CAD), Rheumatoid Arthritis (RA) Additional Family Medical History / Comment(s): age 70 heart problems- RA. Father Family Medical History: No Reported History Additional Family Medical History / Comment(s): age 72 Medications and Allergies Home Medications Medication Instructions Recorded Confirmed Type Albuterol Inhaler [Ventolin Hfa 2 puff INHALATION RT-Q4H PRN 12/29/13 01/06/19 H istory Inhaler] Budesonide/Formoterol Fumarate 2 puff INHALATION RT-BID 12/29/13 01/06/19 His tory [Symbicort 160-4.5 Mcg Inhaler] Omeprazole [PriLOSEC] 20 mg PO AC-BRKFST 12/29/13 01/06/19 History Atorvastatin [Lipitor] 10 mg PO HS 10/04/17 01/06/19 History Warfarin [Coumadin] 2.5 mg PO HS 10/04/17 01/06/19 History Warfarin [Coumadin] 5 mg PO HS 10/04/17 01/06/19 History metFORMIN HCL 1,000 mg PO AC-BID 10/04/17 01/06/19 History Diltiazem HCl 120 mg PO TID 11/21/18 01/06/19 History Losartan Potassium 50 mg PO DAILY 11/21/18 01/06/19 History Triamterene/Hydrochlorothiazid 1 tab PO DAILY 11/21/18 01/06/19 History [Triamterene-Hctz 37.5-25 mg Tb] glipiZIDE XL [Glucotrol XL] 5 mg PO DAILY 11/21/18 01/06/19 History Sulfamethox-Tmp 800-160Mg [Bactrim 1 tab PO BID 01/06/19 01/06/19 History DS 800-160 mg] tiZANidine [Zanaflex] 4 mg PO TID 01/06/19 01/06/19 History Allergies Allergy/AdvReac Type Severity Reaction Status Date / Time iodine Allergy Anaphylaxis Verified 01/06/19 16:48 latex Allergy Unknown Verified 01/06/19 16:48 lisinopril Allergy Cough Verified 01/06/19 16:48 shellfish derived Allergy Anaphylaxis Verified 01/06/19 16:48 codeine AdvReac Rapid Verified 01/06/19 16:48 Heart Rate Physical Exam Vitals: Vital Signs Temp Pulse Pulse Resp BP BP Pulse Ox 01/07/19 05:00 98.5 F 67 20 107/66 92 L 01/06/19 23:05 20 01/06/19 21:36 98 F 78 20 132/79 95 01/06/19 21:08 98.4 F 63 16 121/69 95 01/06/19 20:05 70 16 120/78 92 L 01/06/19 18:25 98.4 F 75 16 131/75 96 01/06/19 16:33 98.6 F 73 20 130/73 97 Intake and Output 01/06/19 01/07/19 01/07/19 22:59 06:59 14:59 Intake Total 400 100 Balance 400 100 Intake: Oral 400 100 Other: Voiding Method Urinal # Voids 1 1 Weight 141.521 kg 141.521 kg GENERAL DESCRIPTION: Elderly male up in bed, no distress. No tachypnea or accessory muscle of respiration use. HEENT: Shows Pallor , no scleral icterus. Oral mucous membrane is dry. No pharyngeal erythema or thrush NECK: Trachea central, no thyromegaly. LUNGS: Unlabored breathing. Clear to auscultation anteriorly. No wheeze or crackle. HEART: S1, S2, regular rate and rhythm. No loud murmur ABDOMEN: Soft, no tenderness , guarding or rigidity, no organomegaly EXTREMITIES: Right lower extremity with wound with minimal slough tissue no sniffing surrounding swelling or redness Left leg did have diffuse swelling and redness slightly warm to touch no blister no open wound. SKIN: No rash, no masses palpable. NEUROLOGICAL: The patient is awake, alert, oriented x3, mood and affect normal. Results CBC & Chem 7: 01/08/19 09:03 01/08/19 09:03 Labs: Abnormal Lab Results - Last 24 Hours (Table) 01/06/19 01/06/19 01/06/19 Range/Units 17:05 17:05 17:05 Hgb 12.6 L (13.0-17.5) gm/dL MCHC (31.0-37.0) g/dL RDW 17.7 H (11.5-15.5) % Lymphocytes # 0.5 L (1.0-4.8) k/uL ESR 86 H (0-15) mm/hr PT 16.3 H (9.0-12.0) sec INR 1.6 H (<1.2) Sodium 136 L (137-145) mmol/L Glucose 103 H (74-99) mg/dL POC Glucose (mg/dL) (75-99) mg/dL C-Reactive Protein 148.6 H (<10.0) mg/L 01/06/19 01/07/19 01/07/19 Range/Units 21:31 07:00 10:00 Hgb (13.0-17.5) gm/dL MCHC (31.0-37.0) g/dL RDW (11.5-15.5) % Lymphocytes # (1.0-4.8) k/uL ESR (0-15) mm/hr PT 16.9 H (9.0-12.0) sec INR 1.7 H (<1.2) Sodium (137-145) mmol/L Glucose (74-99) mg/dL POC Glucose (mg/dL) 107 H 112 H (75-99) mg/dL C-Reactive Protein (<10.0) mg/L 01/07/19 01/07/19 01/07/19 Range/Units 10:00 10:00 11:37 Hgb 12.9 L (13.0-17.5) gm/dL MCHC 30.9 L (31.0-37.0) g/dL RDW 17.9 H (11.5-15.5) % Lymphocytes # 0.6 L (1.0-4.8) k/uL ESR (0-15) mm/hr PT (9.0-12.0) sec INR (<1.2) Sodium (137-145) mmol/L Glucose 113 H (74-99) mg/dL POC Glucose (mg/dL) 106 H (75-99) mg/dL C-Reactive Protein (<10.0) mg/L Microbiology - Last 24 Hours (Table) 01/06/19 23:35 Urine Culture - Preliminary Urine,Clean Catch 01/06/19 22:40 Gram Stain - Preliminary Leg - Right Wound Culture - Preliminary Assessment and Plan Assessment: 1-patient is a 73 year old male presented to the ER with left leg pain swelling and redness that is been going on for about 3 days, and this patient who did have diffuse swelling and redness and no poor wound on the left leg like ly streptococcal disease in this patient has previously grown MSSA and strep and culture from his right leg which currently does not look infected 2-chronic nonhealing wound to the right leg with some slough tissue but no cellulitis recommend local wound care (1) Cellulitis of left lower extremity Current Visit: Yes Status: Acute Code(s): L03.116 - CELLULITIS OF LEFT LOWER LIMB SNOMED Code(s): 271313270 (2) Chronic cutaneous venous stasis ulcer Current Visit: Yes Status: Acute Code(s): I83.009 - VARICOSE VEINS OF UNSP LOWER EXTREMITY W ULCER OF UNSP SITE; L97.909 - NON-PRS CHRONIC ULC UNSP PRT OF UNSP LOW LEG W UNSP SEVERITY SNOMED Code(s): 88037450 Plan: 1-discontinue the vancomycin and Zosyn 2-start the patient cefazolin 2 g every 8 hours 3-therahoney to the right leg wound to be changed daily. 4-Zeus wrap to the right leg from just above the toe to below the knee We will follow on clinical condition and cultures to further adjust medication if needed Thank you for this consultation will follow this patient along with you Time with Patient: Greater than 30
[2019-01-08 17:16] LABS: Glucose,Whole Blood 136 mg/dL (75-99)
[2019-01-08] MEDS: HYDROcodone/APAP 5-325MG 1 EACH TAB PO PRN (17:44)
[2019-01-08] MEDS ORDERED: WARFARIN 7.5 MG TAB PO ONE (18:00)
[2019-01-08] MEDS: ATORVASTATIN 10 MG TAB PO SCH (21:04)
[2019-01-08 22:03] LABS: Glucose,Whole Blood 131 mg/dL (75-99)
--- NOTE | 2019-01-08 22:23 | PN ---
PROGRESS NOTE DATE OF SERVICE: 01/07/2019 This 73-year-old gentleman was admitted with pain and swelling of the left leg. He is being closely monitored. Patient was started on IV antibiotics. Cultures are pending. No chest pain. No palpitations. No fever. On exam, alert and oriented x3. The pulse is 72, blood pressure 126/68, respirations 16, temperature 97.4, pulse ox 98% on room air. HEENT: Conjunctivae normal. NECK: No jugular venous distention. CARDIOVASCULAR SYSTEM: S1, S2 muffled. RESPIRATORY SYSTEM: Breath sounds diminished at the bases. No rhonchi. No crackles. ABDOMEN: Soft. LEGS: Bilateral left cellulitis, left more than the right. Right ulcer is also present, with some bleeding noted. NERVOUS SYSTEM: No focal deficit. Labs at this time show WBC 8, hemoglobin 12.9. INR is 1.7. Sodium 137, potassium 5. Glucose is 130 at this time. ASSESSMENT: 1. Acute cellulitis of the left lower extremity. 2. Right leg ulcer, chronic and non-healing. 3. Hyponatremia. 4. History of pneumonia. 5. History of hypothyroidism. 6. History of migraines. 7. History of cellulitis. 8. History of peripheral neuropathy. 9. History of factor V Leiden deficiency. 10.Diabetes mellitus, type 2. 11.History of methicillin-resistant Staphylococcus aeruginosa. 12.Obesity with body mass index of 41.2. 13.Remote history of nicotine dependence. RECOMMENDATIONS AND DISCUSSION: I recommend to continue current medications, continue with the monitoring, symptomatic treatment. Otherwise at this time I recommend continuing the current management, continue with symptomatic treatment. Otherwise at this time I would recommend continuing the antibiotics. Guarded prognosis. Further recommendations to follow. MMODL / IJN: [id number] /
--- NOTE | 2019-01-08 22:29 | PN ---
PROGRESS NOTE DATE OF SERVICE: 01/08/2019 This 73-year-old gentleman who was admitted with acute cellulitis, is on IV antibiotics. The patient is slightly better. No chest pain. No palpitations. No fever. EXAM: Alert and oriented times three. Pulse 72. The blood pressure is 109/68, respiration 18, temperature 97.2, pulse ox 94 percent on room air. HEENT: Conjunctivae normal. NECK: No jugular venous distention. CARDIOVASCULAR: S1, S2 muffled. RESPIRATORY: Breath sounds diminished in the bases. A few scattered rhonchi and crackles. ABDOMEN is soft, nontender. LEGS: Bilateral leg cellulitis, left more than the right. CENTRAL NERVOUS SYSTEM: No focal deficits. LABS: WBC 8.2, hemoglobin 12.7, and sodium 136, potassium 5. ASSESSMENT: 1. Acute cellulitis of the left lower extremity. 2. Right leg chronic ulcer, nonhealing. 3. Hyponatremia. 4. History of pneumonia. 5. History of hypothyroidism. 6. History of ocular migraine. 7. History of cellulitis. 8. History of peripheral neuropathy. 9. History of factor 5 Leiden deficiency. 10.History of hypothyroidism. 11.Diabetes type 2. 12.History of MRSA. 13.Obesity with body mass index of 41.2. 14.Remote history of nicotine dependence. RECOMMENDATIONS AND DISCUSSION: Recommend to continue current medications, management and symptomatic treatment. Otherwise, at this time, I recommend continue with broad-spectrum IV antibiotics. DVT prophylaxis. Monitor blood sugars closely. Symptomatic treatment. Guarded prognosis because of multiple complex medical issues. Further recommendations to follow. MMODL / IJN: [id number] /
--- NOTE | 2019-01-08 23:29 | PN ---
PROGRESS NOTE DATE OF SERVICE: 01/08/2019. REASON FOR FOLLOWUP: Left lower extremity cellulitis and right leg wound. INTERVAL HISTORY: The patient is currently afebrile. Patient has been breathing comfortably. The left leg pain and swelling and redness has slightly decreased. Denies any chest pain, shortness of breath, cough, no abdominal pain. No diarrhea. PHYSICAL EXAMINATION: Blood pressure 109/69 with a pulse of 72, temperature 97.4. He is 94% on room air. General description is a elderly male lying in bed in no distress. Respiratory system: Unlabored breathing. Clear to auscultation anteriorly. HEART S1, S2. Regular rate and rhythm. ABDOMEN: Soft, no tenderness. LEGS: Left leg with some swelling, minimal redness, slightly warm to touch. Right leg wounds currently dressed up. LABS: Hemoglobin 12.4, white count of 8.4, BUN of 22, creatinine 1.25. DIAGNOSTIC IMPRESSION AND PLAN: 1. Patient with acute left lower extremity cellulitis to continue with cefazolin. Local care with an Zeus wrap to the leg, . 2. Right leg wound. Continue with Medihoney to be changed daily. MMODL / IJN: [id number] /
[2019-01-09] MEDS: SYMBICORT 160-4.5 MCG INHALER INHALATION SCH ×2 (06:53→19:57)
[2019-01-09 07:07] LABS: Glucose,Whole Blood 113 mg/dL (75-99)
[2019-01-09] MEDS: INSULIN ASPART (NovoLOG) 100 UNIT/ML VIAL SQ SCH ×4 (07:17→20:58)
[2019-01-09] MEDS: LOSARTAN 50 MG TAB PO SCH (07:24)
[2019-01-09] MEDS: PANTOPRAZOLE 40 MG TABLET PO SCH (07:24)
[2019-01-09] MEDS: metFORMIN 500 MG TAB PO SCH ×2 (07:24→17:38)
[2019-01-09] MEDS: TRIAMTERENE-HCTZ 37.5-25MG 1 EACH TAB PO SCH (07:25)
[2019-01-09] MEDS: tiZANidine 4 MG TAB PO SCH ×3 (07:25→21:02)
[2019-01-09] MEDS: DILTIAZEM ORAL 60 MG TAB PO SCH ×3 (07:25→21:02)
[2019-01-09] MEDS: ceFAZolin IN SWFI 2 GM/20 ML SYRINGE IVP SCH ×3 (07:29→23:16)
[2019-01-09 08:30] LABS: INR 2.5 (<1.2); Prothrombin Time 24.3 sec (9.0-12.0)
[2019-01-09 08:38] LABS: Anisocytosis Slight; Basophils # (A) 0.1 k/uL (0-0.2); Basophils % (A) 1 %; Eosinophils # (A) 0.5 k/uL (0-0.7); Eosinophils % (A) 6 %; HCT 43.9 % (39.0-53.0); HGB 13.6 gm/dL (13.0-17.5); Lymphocytes # (A) 0.8 k/uL (1.0-4.8); Lymphocytes % (A) 9 %; MCH 26.2 pg (25.0-35.0); MCHC 30.9 g/dL (31.0-37.0); MCV 84.8 fL (80.0-100.0); Mean Platelet Volume 6.7; Monocytes # (A) 0.4 k/uL (0-1.0); Monocytes % (A) 5 %; Neutrophils # (A) 6.2 k/uL (1.3-7.7); Neutrophils % (A) 76 %; Platelet Count 334 k/uL (150-450); RBC 5.17 m/uL (4.30-5.90); RDW 17.7 % (11.5-15.5); WBC 8.2 k/uL (3.8-10.6)
[2019-01-09 08:44] LABS: Calcium 9.5 mg/dL (8.4-10.2); Potassium 4.5 mmol/L (3.5-5.1)
[2019-01-09 11:27] LABS: Glucose,Whole Blood 87 mg/dL (75-99)
--- NOTE | 2019-01-09 13:43 | PN ---
PROGRESS NOTE DATE OF SERVICE: 01/09/2019 REASON FOR FOLLOWUP: 1. Left lower extremity cellulitis. 2. Right leg wound. INTERVAL HISTORY: The patient is currently afebrile, has been breathing comfortably. Did have some cough. No chest pain. No abdominal pain. Left leg swelling and redness has improved. PHYSICAL EXAMINATION: On examination, blood pressure 115/67 with a pulse of 62, temperature 97.7. He is 95% on room air. General description is an elderly male lying in bed in no distress. RESPIRATORY SYSTEM: Unlabored breathing, clear to auscultation anteriorly. HEART: S1, S2. Regular rate and rhythm. ABDOMEN: Soft. Left leg swelling and redness has decreased. LABS: Hemoglobin is 13.6, white count 8.2, BUN of 21, creatinine 1.05. DIAGNOSTIC IMPRESSION AND PLAN: 1. Patient with acute left lower extremity cellulitis with diffuse swelling, redness likely streptococcal disease. The patient seemed to have shown clinical improvement on IV cefazolin and will transition to Keflex 500 mg for another week along with Zeus wrap compression. Follow up in the office in one week. 2. Right leg wound. Local wound care with Medihoney to be changed daily. MMODL / IJN: [id number] /
--- NOTE | 2019-01-09 14:01 | P.DS ---
Providers Date of admission: 01/08/19 14:40 Attending physician: Yi Cates Consults: 01/06/19 19:53 Consult Physician Routine Consulting Provider: Charisma Silva Consult Reason/Comments: cellulitis Do you want consulting provider notified?: Yes 01/06/19 21:42 Consult Physician Routine Consulting Provider: Ishan Ratliff Consult Reason/Comments: leg ulcer Do you want consulting provider notified?: Yes Primary care physician: Tatyana Mora [place] [facility] Course: 73-year-old male was admitted for cellulitis of the left lower extremity along with nonhealing ulcer in the right lower extremity. Patient had significant improvement in cellulitis with ceftezolin,, patient will be discharged on 9 Keflex for a week as recommended by infectious disease they cleared him for discharge. PHYSICAL EXAMINATION: GENERAL: The patient is alert and oriented x3, not in any acute distress. Obese HEENT: Pupils are round and equally reacting to light. EOMI. No scleral icterus. No conjunctival pallor. Normocephalic, atraumatic. No pharyngeal erythema. No thyromegaly. CARDIOVASCULAR: S1 and S2 present. No murmurs, rubs, or gallops. PULMONARY: Chest is clear to auscultation, no wheezing or crackles. ABDOMEN: Soft, nontender, nondistended, normoactive bowel sounds. No palpable organomegaly. MUSCULOSKELETAL: No joint swelling or deformity. EXTREMITIES: No cyanosis, clubbing, bilateral pedal edema if history chronic and right leg ulcer doesn't appear to be infected left axilla that is improved NEUROLOGICAL: Gross neurological examination did not reveal any focal deficits. SKIN: No rashes. For the chronic medical problems hospitalization course please refer to dictation from Dr. Lieberman from yesterday Patient Condition at Discharge: Good Plan - Discharge Summary New Discharge Prescriptions: New Cephalexin [Keflex] 500 mg PO Q6HR #30 cap Continue Budesonide/Formoterol Fumarate [Symbicort 160-4.5 Mcg Inhaler] 2 puff INHALATION RT-BID Omeprazole [PriLOSEC] 20 mg PO AC-BRKFST Albuterol Inhaler [Ventolin Hfa Inhaler] 2 puff INHALATION RT-Q4H PRN PRN Reason: Shortness Of Breath Atorvastatin [Lipitor] 10 mg PO HS metFORMIN HCL 1,000 mg PO AC-BID Warfarin [Coumadin] 5 mg PO HS Warfarin [Coumadin] 2.5 mg PO HS glipiZIDE XL [Glucotrol XL] 5 mg PO DAILY Triamterene/Hydrochlorothiazid [Triamterene-Hctz 37.5-25 mg Tb] 1 tab PO DAILY Losartan Potassium 50 mg PO DAILY Diltiazem HCl 120 mg PO TID tiZANidine [Zanaflex] 4 mg PO TID Discontinued Sulfamethox-Tmp 800-160Mg [Bactrim DS 800-160 mg] 1 tab PO BID Discharge Medication List Albuterol Inhaler [Ventolin Hfa Inhaler] 2 puff INHALATION RT-Q4H PRN 12/29/13 [History] Budesonide/Formoterol Fumarate [Symbicort 160-4.5 Mcg Inhaler] 2 puff INHALATION RT-BID 12/29/13 [History] Omeprazole [PriLOSEC] 20 mg PO AC-BRKFST 12/29/13 [History] Atorvastatin [Lipitor] 10 mg PO HS 10/04/17 [History] Warfarin [Coumadin] 2.5 mg PO HS 10/04/17 [History] Warfarin [Coumadin] 5 mg PO HS 10/04/17 [History] metFORMIN HCL 1,000 mg PO AC-BID 10/04/17 [History] Diltiazem HCl 120 mg PO TID 11/21/18 [History] Losartan Potassium 50 mg PO DAILY 11/21/18 [History] Triamterene/Hydrochlorothiazid [Triamterene-Hctz 37.5-25 mg Tb] 1 tab PO DAILY 11/21/18 [History] glipiZIDE XL [Glucotrol XL] 5 mg PO DAILY 11/21/18 [History] tiZANidine [Zanaflex] 4 mg PO TID 01/06/19 [History] Cephalexin [Keflex] 500 mg PO Q6HR #30 cap 01/09/19 [Rx] Follow up Appointment(s)/Referral(s): Tatyana Mora MD [Primary Care Provider] - 3 Days Charisma Silva MD [STAFF PHYSICIAN] - 1 Week Discharge Disposition: HOME SELF-CARE
[2019-01-09 17:33] LABS: Glucose,Whole Blood 152 mg/dL (75-99)
[2019-01-09] MEDS ORDERED: WARFARIN 7.5 MG TAB PO ONE (18:00)
[2019-01-09 20:38] LABS: Glucose,Whole Blood 97 mg/dL (75-99)
[2019-01-09] MEDS: ATORVASTATIN 10 MG TAB PO SCH (21:02)
[2019-01-10] MEDS: HYDROcodone/APAP 5-325MG 1 EACH TAB PO PRN (01:20)
[2019-01-10 06:54] LABS: Glucose,Whole Blood 103 mg/dL (75-99)
[2019-01-10] MEDS: PANTOPRAZOLE 40 MG TABLET PO SCH (08:29)
[2019-01-10] MEDS: LOSARTAN 50 MG TAB PO SCH (08:29)
[2019-01-10] MEDS: metFORMIN 500 MG TAB PO SCH ×2 (08:29→17:37)
[2019-01-10] MEDS: INSULIN ASPART (NovoLOG) 100 UNIT/ML VIAL SQ SCH ×4 (08:30→21:56)
[2019-01-10] MEDS: DILTIAZEM ORAL 60 MG TAB PO SCH ×3 (08:30→22:32)
[2019-01-10] MEDS: tiZANidine 4 MG TAB PO SCH ×3 (08:30→22:33)
[2019-01-10] MEDS: TRIAMTERENE-HCTZ 37.5-25MG 1 EACH TAB PO SCH (08:31)
[2019-01-10] MEDS: SYMBICORT 160-4.5 MCG INHALER INHALATION SCH ×2 (08:39→21:04)
[2019-01-10] MEDS: ceFAZolin IN SWFI 2 GM/20 ML SYRINGE IVP SCH (09:07)
[2019-01-10 09:50] LABS: Anisocytosis Slight; Basophils # (A) 0.1 k/uL (0-0.2); Basophils % (A) 1 %; Eosinophils # (A) 0.5 k/uL (0-0.7); Eosinophils % (A) 5 %; HCT 44.6 % (39.0-53.0); HGB 13.7 gm/dL (13.0-17.5); Hypochromasia Slight; Lymphocytes # (A) 0.7 k/uL (1.0-4.8); Lymphocytes % (A) 8 %; MCH 25.9 pg (25.0-35.0); MCHC 30.8 g/dL (31.0-37.0); MCV 84.3 fL (80.0-100.0); Monocytes # (A) 0.4 k/uL (0-1.0); Monocytes % (A) 4 %; Neutrophils # (A) 7.7 k/uL (1.3-7.7); Neutrophils % (A) 80 %; Platelet Count 353 k/uL (150-450); RBC 5.29 m/uL (4.30-5.90); RDW 17.8 % (11.5-15.5); WBC 9.6 k/uL (3.8-10.6)
[2019-01-10 09:57] LABS: Calcium 9.6 mg/dL (8.4-10.2)
[2019-01-10 10:32] LABS: INR 2.5 (<1.2); Prothrombin Time 24.5 sec (9.0-12.0)
--- NOTE | 2019-01-10 10:56 | P.DS ---
Providers Date of admission: 01/08/19 14:40 Attending physician: Yi Cates Consults: 01/06/19 19:53 Consult Physician Routine Consulting Provider: Charisma Silva Consult Reason/Comments: cellulitis Do you want consulting provider notified?: Yes 01/06/19 21:42 Consult Physician Routine Consulting Provider: Ishan Ratliff Consult Reason/Comments: leg ulcer Do you want consulting provider notified?: Yes Primary care physician: Tatyana Mora [facility] Course: patient was admitted for cellulitis and he discharged from yesterday but the he challenges of discharge where he'll get 24 hours as per Medicare regulations. Because he ended up staying in the hospital a half to see and evaluate the patient as outpatient no significant overnight events no significant change compared to yesterday patient will be discharged on Keflex later today. PHYSICAL EXAMINATION: GENERAL: The patient is alert and oriented x3, not in any acute distress. Obese HEENT: Pupils are round and equally reacting to light. EOMI. No scleral icterus. No conjunctival pallor. Normocephalic, atraumatic. No pharyngeal erythema. No thyromegaly. CARDIOVASCULAR: S1 and S2 present. No murmurs, rubs, or gallops. PULMONARY: Chest is clear to auscultation, no wheezing or crackles. ABDOMEN: Soft, nontender, nondistended, normoactive bowel sounds. No palpable organomegaly. MUSCULOSKELETAL: No joint swelling or deformity. EXTREMITIES: No cyanosis, clubbing, bilateral pedal edema if history chronic and right leg ulcer doesn't appear to be infected left axilla that is improved NEUROLOGICAL: Gross neurological examination did not reveal any focal deficits. SKIN: No rashes. please refer to my discharge summary from yesterday for further details Patient Condition at Discharge: Good Plan - Discharge Summary New Discharge Prescriptions: New Cephalexin [Keflex] 500 mg PO Q6HR #30 cap Continue Budesonide/Formoterol Fumarate [Symbicort 160-4.5 Mcg Inhaler] 2 puff INHALATION RT-BID Omeprazole [PriLOSEC] 20 mg PO AC-BRKFST Albuterol Inhaler [Ventolin Hfa Inhaler] 2 puff INHALATION RT-Q4H PRN PRN Reason: Shortness Of Breath Atorvastatin [Lipitor] 10 mg PO HS metFORMIN HCL 1,000 mg PO AC-BID Warfarin [Coumadin] 5 mg PO HS Warfarin [Coumadin] 2.5 mg PO HS glipiZIDE XL [Glucotrol XL] 5 mg PO DAILY Triamterene/Hydrochlorothiazid [Triamterene-Hctz 37.5-25 mg Tb] 1 tab PO DAILY Losartan Potassium 50 mg PO DAILY Diltiazem HCl 120 mg PO TID tiZANidine [Zanaflex] 4 mg PO TID Discontinued Sulfamethox-Tmp 800-160Mg [Bactrim DS 800-160 mg] 1 tab PO BID Discharge Medication List Albuterol Inhaler [Ventolin Hfa Inhaler] 2 puff INHALATION RT-Q4H PRN 12/29/13 [History] Budesonide/Formoterol Fumarate [Symbicort 160-4.5 Mcg Inhaler] 2 puff INHALATION RT-BID 12/29/13 [History] Omeprazole [PriLOSEC] 20 mg PO AC-BRKFST 12/29/13 [History] Atorvastatin [Lipitor] 10 mg PO HS 10/04/17 [History] Warfarin [Coumadin] 2.5 mg PO HS 10/04/17 [History] Warfarin [Coumadin] 5 mg PO HS 10/04/17 [History] metFORMIN HCL 1,000 mg PO AC-BID 10/04/17 [History] Diltiazem HCl 120 mg PO TID 11/21/18 [History] Losartan Potassium 50 mg PO DAILY 11/21/18 [History] Triamterene/Hydrochlorothiazid [Triamterene-Hctz 37.5-25 mg Tb] 1 tab PO DAILY 11/21/18 [History] glipiZIDE XL [Glucotrol XL] 5 mg PO DAILY 11/21/18 [History] tiZANidine [Zanaflex] 4 mg PO TID 01/06/19 [History] Cephalexin [Keflex] 500 mg PO Q6HR #30 cap 01/09/19 [Rx] Follow up Appointment(s)/Referral(s): Tatyana Mora MD [Primary Care Provider] - 3 Days Charisma Silva MD [STAFF PHYSICIAN] - 1 Week Discharge Disposition: HOME SELF-CARE
[2019-01-10 11:25] LABS: Glucose,Whole Blood 97 mg/dL (75-99)
--- NOTE | 2019-01-10 16:12 | PN ---
PROGRESS NOTE DATE OF SERVICE: 01/10/2019 REASON FOR FOLLOWUP: Left lower extremity cellulitis and right leg venostasis ulcer. INTERVAL HISTORY: The patient is currently afebrile. The patient has been breathing comfortably. Overall denies having any chest pain. No shortness of breath or cough. Left leg swelling and pain have improved of the right leg wound area. PHYSICAL EXAMINATION: Blood pressure is 134/72 with a pulse of 70, temperature 97.9. He is 94% on room air. General description is an elderly male up in the bed in no distress. RESPIRATORY SYSTEM: Unlabored breathing. Clear to auscultation anteriorly. HEART: S1, S2. Regular rate and rhythm. ABDOMEN: Soft. No tenderness. Right leg is currently dressed up. No obvious drainage on the dressing. Left leg swelling and redness have slightly decreased. LABS: Hemoglobin is 13.7, white count 9.6 with a BUN of 22, creatinine 1.14. DIAGNOSTIC IMPRESSION AND PLAN: Patient with left lower extremity cellulitis in this patient who has been previously colonized and basic MSSA and strep with a right leg wound. Culture revealed MSSA. Patient with oral improvement on Cefazolin. To finish therapy with a short course of oral Keflex 500 mg t.i.d. for about a week with close outpatient followup. Continue with supportive care. MMODL / IJN: [id number] /
[2019-01-10] MEDS: CEPHALEXIN 500 MG CAP PO SCH ×2 (16:27→22:33)
[2019-01-10 17:05] LABS: Glucose,Whole Blood 123 mg/dL (75-99)
[2019-01-10] MEDS ORDERED: WARFARIN 7.5 MG TAB PO ONE (18:00)
[2019-01-10 20:51] LABS: Glucose,Whole Blood 95 mg/dL (75-99)
[2019-01-10] MEDS: ATORVASTATIN 10 MG TAB PO SCH (22:33)
[2019-01-11 07:07] LABS: Glucose,Whole Blood 135 mg/dL (75-99)
[2019-01-11] MEDS: INSULIN ASPART (NovoLOG) 100 UNIT/ML VIAL SQ SCH ×2 (07:45→12:01)
[2019-01-11] MEDS: metFORMIN 500 MG TAB PO SCH (07:45)
[2019-01-11] MEDS: PANTOPRAZOLE 40 MG TABLET PO SCH (07:45)
[2019-01-11 07:53] VITALS: BP 139/79; PULSE 63; RESP 15; TEMP 98.5
[2019-01-11] MEDS: SYMBICORT 160-4.5 MCG INHALER INHALATION SCH (08:02)
[2019-01-11] MEDS: tiZANidine 4 MG TAB PO SCH (08:31)
[2019-01-11] MEDS: CEPHALEXIN 500 MG CAP PO SCH (08:31)
[2019-01-11] MEDS: TRIAMTERENE-HCTZ 37.5-25MG 1 EACH TAB PO SCH (08:31)
[2019-01-11] MEDS: LOSARTAN 50 MG TAB PO SCH (08:31)
[2019-01-11] MEDS: DILTIAZEM ORAL 60 MG TAB PO SCH (08:32)
[2019-01-11 08:59] LABS: INR 2.4 (<1.2)
[2019-01-11 09:04] LABS: Anisocytosis Slight; Basophils # (A) 0.1 k/uL (0-0.2); Basophils % (A) 1 %; Eosinophils # (A) 0.5 k/uL (0-0.7); Eosinophils % (A) 5 %; HCT 45.3 % (39.0-53.0); HGB 13.9 gm/dL (13.0-17.5); Lymphocytes # (A) 0.8 k/uL (1.0-4.8); Lymphocytes % (A) 8 %; MCH 26.1 pg (25.0-35.0); MCHC 30.7 g/dL (31.0-37.0); Mean Platelet Volume 7.1; Monocytes # (A) 0.4 k/uL (0-1.0); Monocytes % (A) 4 %; Neutrophils # (A) 8.1 k/uL (1.3-7.7); Neutrophils % (A) 82 %; Platelet Count 400 k/uL (150-450); RBC 5.33 m/uL (4.30-5.90); RDW 17.7 % (11.5-15.5); WBC 9.9 k/uL (3.8-10.6)
[2019-01-11 09:21] LABS: Calcium 9.9 mg/dL (8.4-10.2)
[2019-01-11 11:58] LABS: Glucose,Whole Blood 99 mg/dL (75-99)
[2019-01-11] MEDS ORDERED: WARFARIN 7.5 MG TAB PO SCH (18:00)
--- NOTE | 2019-01-11 22:54 | P.DS ---
Providers Date of admission: 01/08/19 14:40 Expected date of discharge: 01/11/19 Attending physician: Yi Cates Consults: 01/06/19 19:53 Consult Physician Routine Consulting Provider: Charisma Silva Consult Reason/Comments: cellulitis Do you want consulting provider notified?: Yes 01/06/19 21:42 Consult Physician Routine Consulting Provider: Ishan Ratliff Consult Reason/Comments: leg ulcer Do you want consulting provider notified?: Yes [facility] Course: Mr. De La Cruz is a 73-year-old male with a past medical history of morbid obesity, thyroid disorder, ocular migraines, basal cell skin cancer, type 2 diabetes mellitus admitted to the hospital for cellulitis of his left lower extremity along with nonhealing ulcer in the right lower extremity. Patient was started on cefazolin, he showed significant improvement and he has been discharged couple of days back on Keflex. But the patient appeared for his discharge and has been staying in the hospital for the last couple of days. Now the patient is sitting comfortably in the bed and states that he is ready to go home today. On examination patient's vital signs temperature 98.5, heart rate 63, respiratory rate 15, blood pressure 1 39 x 79, saturating at 95% on room air. PHYSICAL EXAMINATION: GENERAL: The patient is alert and oriented x3, not in any acute distress. Obese CARDIOVASCULAR: S1 and S2 present. No murmurs, rubs, or gallops. PULMONARY: Chest is clear to auscultation, no wheezing or crackles. ABDOMEN: Soft, nontender, nondistended, normoactive bowel sounds. MUSCULOSKELETAL: No joint swelling or deformity. EXTREMITIES: No cyanosis, clubbing, bilateral pedal edema with chronic right leg ulcer doesn't appear to be infected. Patient states that his redness has improved. NEUROLOGICAL: Gross neurological examination did not reveal any focal deficits. ASSESSMENT Acute cellulitis of the left lower extremity Chronic right leg ulcer nonhealing Hyponatremia resolved Hypothyroidism Ocular migraine Type 2 diabetes mellitus Factor V Leyden deficiency History of MRSA Morbid obesity with BMI of 41.2 PLAN: Patient was discharged from the hospital yesterday. As he appealed his discharge he is still in the hospital. But today he states that he's ready to go home. Patient is advised to complete his antibiotic course and follow-up with his primary care physician in 2-3 days. Patient Condition at Discharge: Good Plan - Discharge Summary New Discharge Prescriptions: New Cephalexin [Keflex] 500 mg PO Q6HR #30 cap Continue Budesonide/Formoterol Fumarate [Symbicort 160-4.5 Mcg Inhaler] 2 puff INHALATION RT-BID Omeprazole [PriLOSEC] 20 mg PO AC-BRKFST Albuterol Inhaler [Ventolin Hfa Inhaler] 2 puff INHALATION RT-Q4H PRN PRN Reason: Shortness Of Breath Atorvastatin [Lipitor] 10 mg PO HS metFORMIN HCL 1,000 mg PO AC-BID Warfarin [Coumadin] 5 mg PO HS Warfarin [Coumadin] 2.5 mg PO HS glipiZIDE XL [Glucotrol XL] 5 mg PO DAILY Triamterene/Hydrochlorothiazid [Triamterene-Hctz 37.5-25 mg Tb] 1 tab PO DAILY Losartan Potassium 50 mg PO DAILY Diltiazem HCl 120 mg PO TID tiZANidine [Zanaflex] 4 mg PO TID Discontinued Sulfamethox-Tmp 800-160Mg [Bactrim DS 800-160 mg] 1 tab PO BID Discharge Medication List Albuterol Inhaler [Ventolin Hfa Inhaler] 2 puff INHALATION RT-Q4H PRN 12/29/13 [History] Budesonide/Formoterol Fumarate [Symbicort 160-4.5 Mcg Inhaler] 2 puff INHALATION RT-BID 12/29/13 [History] Omeprazole [PriLOSEC] 20 mg PO AC-BRKFST 12/29/13 [History] Atorvastatin [Lipitor] 10 mg PO HS 10/04/17 [History] Warfarin [Coumadin] 2.5 mg PO HS 10/04/17 [History] Warfarin [Coumadin] 5 mg PO HS 10/04/17 [History] metFORMIN HCL 1,000 mg PO AC-BID 10/04/17 [History] Diltiazem HCl 120 mg PO TID 11/21/18 [History] Losartan Potassium 50 mg PO DAILY 11/21/18 [History] Triamterene/Hydrochlorothiazid [Triamterene-Hctz 37.5-25 mg Tb] 1 tab PO DAILY 11/21/18 [History] glipiZIDE XL [Glucotrol XL] 5 mg PO DAILY 11/21/18 [History] tiZANidine [Zanaflex] 4 mg PO TID 01/06/19 [History] Cephalexin [Keflex] 500 mg PO Q6HR #30 cap 01/09/19 [Rx] Follow up Appointment(s)/Referral(s): Tatyana Mora MD [Primary Care Provider] - 3 Days Charisma Silva MD [STAFF PHYSICIAN] - 1 Week Patient Instructions/Handouts: Cellulitis (DC) Discharge Disposition: HOME SELF-CARE
--- NOTE | 2019-01-13 14:15 | CDI ---
Documentation Clarification Form Date: 01/13/2019 2:00:12 PM From: FELISHA Richards; Marilyn Erazo Aerob[employer] Teacher Phone: If you have a question about this query, please contact Marilyn rEazo Aerobics Teacher at [phone] between 8am and 5pm. Admit Date: 01/08/2019 2:40:00 PM Patient Name: Antony De La Cruz Visit Number: [id number] Discharge Date: 01/11/2019 1:34:00 PM ATTENTION: The Clinical Documentation Specialists (CDI) and [facility] Coding Staff appreciate your assistance in clarifying documentation. Please respond to the clarification below the line at the bottom and electronically sign. The CDI & [facility] Coding staff will review the response and follow-up if needed. Please note: Queries are made part of the Legal Health Record. If you have any questions, please contact the author of this message via ITS. Dr. Jaqui Herndon The patient presented with bilateral lower leg cellulitis. 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 Clinical Indicators: Leg pain, swelling, redness x 3 days. Lab findings: WBC 8.3. Vital Signs: Temp 98.6, pulse 73, resp 20, BP 130/73 Treatment: Broad-spectrum IV antibiotics. In your professional opinion, can you please clarify? Cellulitis associated with or due to DM. Cellulitis not associated with DM Unable to determine ___ Cellulitis not associated with DM MTDD
== END 2019-01-11 13:34 | disposition home or self-care (01) | DRG 603 ==
LOC: EC 16:26 → 4MS4W 19:16 → OBSVTOIN 01-08 14:40 → 4SSUR 01-09 16:16
PROVIDERS: ADMIT Internal Medicine; ATTEND Internal Medicine
DX: L03.116 Cellulitis of left lower limb (principal); D68.51 Activated protein C resistance; E87.1 Hypo-osmolality and hyponatremia; I82.501 Chronic embolism and thrombosis of unspecified deep veins of right lower extremity; L97.919 Non-pressure chronic ulcer of unspecified part of right lower leg with unspecified severity; Z68.41 Body mass index [BMI] 40.0-44.9, adult; L03.115 Cellulitis of right lower limb; E03.9 Hypothyroidism, unspecified; E66.01 Morbid (severe) obesity due to excess calories; G43.109 Migraine with aura, not intractable, without status migrainosus; I10 Essential (primary) hypertension; I83.019 Varicose veins of right lower extremity with ulcer of unspecified site; Z79.01 Long term (current) use of anticoagulants; Z79.51 Long term (current) use of inhaled steroids; Z79.84 Long term (current) use of oral hypoglycemic drugs; Z79.899 Other long term (current) drug therapy; Z82.49 Family history of ischemic heart disease and other diseases of the circulatory system; Z85.828 Personal history of other malignant neoplasm of skin; Z86.14 Personal history of Methicillin resistant Staphylococcus aureus infection; Z87.01 Personal history of pneumonia (recurrent); Z87.891 Personal history of nicotine dependence; Z90.49 Acquired absence of other specified parts of digestive tract; E11.42 Type 2 diabetes mellitus with diabetic polyneuropathy
CPT/HCPCS: 36415; 80048; 83605; 85025; 85610; 85652; 86140; 87040; 87070; 87077; 87086; 87186; 87205; 94640; 96365; 96366; 99284

== ENCOUNTER → 2019-02-10 | Outpatient (CLI) | payer MEDICARE, BC ==
[2019-02-10 18:14] LABS: Anisocytosis Slight; Basophils # (A) 0.1 k/uL (0-0.2); Basophils % (A) 1 %; Eosinophils # (A) 0.4 k/uL (0-0.7); Eosinophils % (A) 5 %; HCT 43.5 % (39.0-53.0); HGB 13.4 gm/dL (13.0-17.5); Hypochromasia Slight; Lymphocytes # (A) 0.8 k/uL (1.0-4.8); Lymphocytes % (A) 8 %; MCH 26.2 pg (25.0-35.0); MCHC 30.7 g/dL (31.0-37.0); MCV 85.2 fL (80.0-100.0); Mean Platelet Volume 7.1; Monocytes # (A) 0.5 k/uL (0-1.0); Monocytes % (A) 5 %; Neutrophils # (A) 7.6 k/uL (1.3-7.7); Neutrophils % (A) 79 %; Platelet Count 315 k/uL (150-450); RBC 5.11 m/uL (4.30-5.90); WBC 9.6 k/uL (3.8-10.6)
[2019-02-11 00:22] LABS: African American GFR (CKD) 70.1 (60.0-200.0); Albumin 3.9 g/dL (3.80-4.90); Albumin/Globulin Ratio 1.18 (1.60-3.17); Anion Gap 11.2 mmol/L (4.00-12.00); BUN/Creat Ratio 15.83 Ratio (12.00-20.00); Calcium 9.3 mg/dL (8.7-10.3); Carbon Dioxide 24.8 mmol/L (21.6-31.8); Globulin 3.3 g/dL (1.6-3.3); Potassium 4.4 mmol/L (3.5-5.5); Total Bilirubin 0.5 mg/dL (0.3-1.2); Total Protein 7.2 g/dL (6.2-8.2)
== END | disposition home or self-care (01) ==
LOC: LABWHC1 16:49
PROVIDERS: ATTEND Family Medicine
DX: Z12.5 Encounter for screening for malignant neoplasm of prostate (principal); I10 Essential (primary) hypertension; E78.00 Pure hypercholesterolemia, unspecified; E03.9 Hypothyroidism, unspecified; E29.1 Testicular hypofunction; E11.9 Type 2 diabetes mellitus without complications
CPT/HCPCS: 36415; 80053; 83036; 84153; 84403; 84439; 84443; 85025

== ENCOUNTER → 2019-02-25 | Outpatient (CLI) | payer MEDICARE, BC ==
[2019-02-25 19:21] LABS: LDL Cholesterol,Calculated 61.4 mg/dL (0.0-131.0); VLDL Calculation 25.6 mg/dL (5.00-40.00)
== END | disposition home or self-care (01) ==
LOC: LABWHC1 14:58
PROVIDERS: ATTEND Family Medicine
DX: I10 Essential (primary) hypertension (principal); E78.00 Pure hypercholesterolemia, unspecified; E03.9 Hypothyroidism, unspecified; E11.9 Type 2 diabetes mellitus without complications
CPT/HCPCS: 36415; 80061

== ENCOUNTER → 2019-05-05 | Outpatient (CLI) | payer MEDICARE, BC ==
[2019-05-05 16:46] LABS: INR 2.7 (<1.2); Prothrombin Time 26.2 sec (9.0-12.0)
[2019-05-06 00:23] LABS: Hemoglobin A1C 7.1 % (4.0-6.0)
== END | disposition home or self-care (01) ==
LOC: LABWHC1 14:47
PROVIDERS: ATTEND Family Medicine
DX: E11.9 Type 2 diabetes mellitus without complications (principal); Z79.01 Long term (current) use of anticoagulants
CPT/HCPCS: 36415; 83036; 85610

== ENCOUNTER → 2019-06-30 | Outpatient (CLI) | payer MEDICARE, BC ==
[2019-06-30 16:24] LABS: Prothrombin Time 28.7 sec (9.0-12.0)
== END | disposition home or self-care (01) ==
LOC: LABWHC1 15:06
PROVIDERS: ATTEND Family Medicine
DX: M54.5 Low back pain (principal); E03.9 Hypothyroidism, unspecified; Z79.01 Long term (current) use of anticoagulants
CPT/HCPCS: 36415; 84439; 84443; 85610

== ENCOUNTER → 2019-08-12 | Outpatient (CLI) | payer MEDICARE, BC ==
[2019-08-12 14:31] VITALS: BP 146/90; PULSE 78; RESP 20
--- NOTE | 2019-08-13 11:05 | P.PAINCN ---
History of Present Illness - Reason for Consult Consult date: 08/12/19 - History of Present Illness this is 74 years old male 4 years history of severe low back pain with deviation to the right lower extremity, he denies any initiating event and he reported that the pain intensity increases over the last few months, the pain is constant interfering with the quality of life and aggravated with any activity,, had some numbness and tingling sensation in the right lower extremity, he was able to ambulate, and he uses a wheelchair sometime, and he feels some weakness in his lower extremity bilaterally, he denies any fever or night sweats. He denies any change in the bowel movements or urination Past Medical History Past Medical History: Blood Disorder, Cancer, Pneumonia, Thyroid Disorder Additional Past Medical History / Comment(s): occular migraines, seasonal allergies, SOB with activity, hx cellulitis, neuropathy, clotting disorder- Factor V- Leiden, basal cell skin ca(folicular) , received shingles vaccine and hepatits a vaccine, hypothyrodism, Type 2 diabetes, medication controlled History of Any Multi-Drug Resistant Organisms: MRSA Year Discovered:: 2012 MDRO Source:: bilateral legs Past Surgical History: Cholecystectomy, Hernia Repair, Tonsillectomy Additional Past Surgical History / Comment(s): colonoscopy, basal cell carcinoma from scalp, nasal/sinus, meet filter.pilonsial cyst removed, rt index finger sx- removed calcium deposit, umbilical hernia Past Anesthesia/Blood Transfusion Reactions: No Reported Reaction Past Psychological History: No Psychological Hx Reported Additional Psychological History / Comment(s): Patient lives with his , in house. Patietn has stairs at home: 13. Patient has canes, walkers, ect at home for when needed. Doesn't utilize any currently. Smoking Status: Former smoker Past Alcohol Use History: Rare Additional Past Alcohol Use History / Comment(s): Started smoking at age 17(1962) and quit age 30(1974). Couple of bottles of beer a week per patient. Past Drug Use History: None Reported - Past Family History Mother Family Medical History: Coronary Artery Disease (CAD), Rheumatoid Arthritis (RA) Additional Family Medical History / Comment(s): age 70 heart problems- RA. Father Family Medical History: No Reported History Additional Family Medical History / Comment(s): age 72 Medications and Allergies Home Medications Medication Instructions Recorded Confirmed Type Albuterol Inhaler [Ventolin Hfa 2 puff INHALATION RT-Q4H PRN 12/29/13 08/12/19 History Inhaler] Budesonide/Formoterol Fumarate 2 puff INHALATION RT-BID 12/29/13 08/12/19 History [Symbicort 160-4.5 Mcg Inhaler] Omeprazole [PriLOSEC] 20 mg PO AC-BRKFST 12/29/13 08/12/19 History Atorvastatin [Lipitor] 10 mg PO HS 10/04/17 08/12/19 History Warfarin [Coumadin] 2.5 mg PO HS 10/04/17 08/12/19 History Warfarin [Coumadin] 5 mg PO HS 10/04/17 08/12/19 History metFORMIN HCL 1,000 mg PO AC-BID 10/04/17 08/12/19 History Diltiazem HCl 120 mg PO TID 11/21/18 08/12/19 History Losartan Potassium 50 mg PO DAILY 11/21/18 08/12/19 History Triamterene/Hydrochlorothiazid 1 tab PO DAILY 11/21/18 08/12/19 History [Triamterene-Hctz 37.5-25 mg Tb] glipiZIDE XL [Glucotrol XL] 5 mg PO DAILY 11/21/18 08/12/19 History tiZANidine [Zanaflex] 4 mg PO TID 01/06/19 08/12/19 History Cephalexin [Keflex] 500 mg PO Q6HR #30 cap 01/09/19 08/12/19 Rx Allergies Allergy/AdvReac Type Severity Reaction Status Date / Time iodine Allergy Anaphylaxis Verified 08/12/19 14:20 latex Allergy Unknown Verified 08/12/19 14:20 lisinopril Allergy Cough Verified 08/12/19 14:20 shellfish derived Allergy Anaphylaxis Verified 08/12/19 14:20 codeine AdvReac Rapid Verified 08/12/19 14:20 Heart Rate Physical Exam Vitals: Vital Signs Pulse Resp BP Pulse Ox 08/12/19 14:23 78 20 146/90 94 L REVIEW OF ORGAN SYSTEMS: CONSTITUTIONAL: No fevers or chills. No recent weight loss. EYES: denies troubles with vision. HEENT: No difficulties with hearing. No nosebleeds. No difficulty swallowing. RESPIRATORY: Denies any troubles with breathing or dyspnea on exertion. seasonal ALLERGY CARDIOVASCULAR: Denies any chest pain, palpitations, or recent heart attacks. GASTROINTESTINAL: Denies fatty food intolerance. Has change in bowel habits and gas bloat. GENITOURINARY: Denies any blood in urine. Has increased urinary frequency. NEUROLOGICAL: + numbness and tingling along the distal right lower extremitie. No seizure disorders or headaches. MUSCULOSKELETAL: Has back pain.on the right lower extremity pain SKIN:no skin cancer. No rash. PSYCHIATRIC: Denies current depression or suicidal thoughts. ENDOCRINE: diabetes,hypothyroidism HEME/LYMPHATIC: deep venous thrombosis.,factor V Leiden deficiency ALLERGY/IMMUNOLOGY: seasonal ALLERGY BREAST: Denies current breast lumps, pain or nipple discharge. Physical Examinations : Constitutiona : Cooperative , not in acute distress . HEENT : nech : supple , no Lymphadenopathy , normal thyroid size . : eyes no ptosis , no icterus, no photophobia . : ENT normal of hearing , normal oropharynx , no Thrush . Respiratory : Chest clear to auscultations Bilaterally , no wheezing , no Rhonchi . Cardiovascula : regular rate and rhythem , S1 , S2 , no S3 , no S4. Gastrointestina : abdomen soft no tenderness , bowel sounds , no organomegally ,morbidly obese. Genitourinary : Defferred . neurologic : Cranial nerve II to XII intact , no focal neurological deffecit . psychatric : alert , oriented X 3 , appropriate affect , intact judgment and insight . Lymphatic : no Lymphadenopathy . musculoskeltal : Lumber spine moter stegnth lower extremities ,thigh and legs 5/5 Right side , 5/5 Left side deep tendon reflexes : normal Knee Jerk , normal ankle Jerk lumber facet Loading Test= positive Right , negative Left Range of motion of the lumbar spine Flexion 30 degrees, extension 10 degrees strait leg raising test=negative bilaterally Fabere test= negative bilaterally. Results Comments: MRI of the lumbar spine= done at the open MRI= multilevel lumbar degenerative disc disease and multilevel lumbar facet arthropathy Assessment and Plan Plan: assessment and plan=1-lumbar radiculopathy. 2-lumbar spondylosis and lumbar facet arthropathy without myelopathy. 3-history of DVT, and factor V Leiden deficiency, and chronic use of Coumadin. patient will be good candidate to have right-sided diagnostic medial branch block at L2, L3 , L4 ,L5 to target the facet joint at the Right side L3- 4 and L4- 5 and L5-S1 Time with Patient: Greater than 30 PQRS Measure Charge Sheet Measure #130: Documentation of Current Meds in Medical Chart: Patient's medications documented in chart Measure #226: Tobacco Use: Screen & Cessation Intervention: Pt screened for tobacco use AND intervention given Measure #111: Pneumonia Vaccination: Pneumococcal vaccine administered or previously received Measure #47: Advance Care Plan: Advance care planning discussed & documented, pt chose/unable to give Measure #412: Opioid Treatment Agreement: No documentation of signed opioid treatment agreement Measure #408: Opioid Therapy Follow-up Evaluation: Patient had NO f/u eval minimum every 3 months during opioid therapy Measure #317: Preventitive Care & Scrn High Bld Press & F/U: Pre-hypertensive or hypertensive BP documented, pt will f/u with PCP Measure #128: Body Mass Index (BMI) Screening & Follow-up: BMI documented ABOVE normal parameters - f/u documented Measure #131: Pain Assessment & Follow-up: Pain positive & plan documented, Follow-up scheduled Measure #431: Unhealthy Alcohol Use Preventative Care & Scrn: Patient not identified as an unhealthy alcohol user PQRS Narrative: Smoking Status Former smoker Blood Pressure 146/90 Pain Intensity [Lower Back] 5 Scale Used Numeric (1 - 10) Hx Alcohol Use (MH) No Home Medications: Ambulatory Orders Albuterol Inhaler [Ventolin Hfa Inhaler] 2 puff INHALATION RT-Q4H PRN 12/29/13 Budesonide/Formoterol Fumarate [Symbicort 160-4.5 Mcg Inhaler] 2 puff INHALATION RT-BID 12/29/13 Omeprazole [PriLOSEC] 20 mg PO AC-BRKFST 12/29/13 Atorvastatin [Lipitor] 10 mg PO HS 10/04/17 Warfarin [Coumadin] 2.5 mg PO HS 10/04/17 Warfarin [Coumadin] 5 mg PO HS 10/04/17 metFORMIN HCL 1,000 mg PO AC-BID 10/04/17 Diltiazem HCl 120 mg PO TID 11/21/18 Losartan Potassium 50 mg PO DAILY 11/21/18 Triamterene/Hydrochlorothiazid [Triamterene-Hctz 37.5-25 mg Tb] 1 tab PO DAILY 11/21/18 glipiZIDE XL [Glucotrol XL] 5 mg PO DAILY 11/21/18 tiZANidine [Zanaflex] 4 mg PO TID 01/06/19 Cephalexin [Keflex] 500 mg PO Q6HR #30 cap 01/09/19
== END | disposition home or self-care (01) ==
LOC: PNWHC3 13:32
PROVIDERS: ATTEND Specialist
DX: G89.29 Other chronic pain (principal); M51.16 Intervertebral disc disorders with radiculopathy, lumbar region; M47.26 Other spondylosis with radiculopathy, lumbar region; M46.96 Unspecified inflammatory spondylopathy, lumbar region; Z86.718 Personal history of other venous thrombosis and embolism; D68.51 Activated protein C resistance; Z87.891 Personal history of nicotine dependence; Z79.84 Long term (current) use of oral hypoglycemic drugs; Z79.2 Long term (current) use of antibiotics; Z79.01 Long term (current) use of anticoagulants; Z79.899 Other long term (current) drug therapy; Z91.040 Latex allergy status; Z91.013 Allergy to seafood; Z88.5 Allergy status to narcotic agent; Z88.8 Allergy status to other drugs, medicaments and biological substances; Z91.041 Radiographic dye allergy status
CPT/HCPCS: 99211

== ENCOUNTER → 2019-09-15 | Outpatient (CLI) | payer MEDICARE, BC ==
[2019-09-15 18:25] LABS: INR 4.6 (<1.2); Prothrombin Time 45.8 sec (9.0-12.0)
[2019-09-16 01:28] LABS: Chol/HDL Ratio 3.69; LDL Cholesterol,Calculated 71.6 mg/dL (0.0-131.0); VLDL Calculation 33.4 mg/dL (5.00-40.00)
[2019-09-16 02:25] LABS: Hemoglobin A1C 8.7 % (4.0-6.0)
== END | disposition home or self-care (01) ==
LOC: LABWHC1 17:22
PROVIDERS: ATTEND Family Medicine
DX: E11.9 Type 2 diabetes mellitus without complications (principal); E78.00 Pure hypercholesterolemia, unspecified; E03.9 Hypothyroidism, unspecified; Z79.01 Long term (current) use of anticoagulants
CPT/HCPCS: 36415; 80061; 83036; 84439; 84443; 85610

== ENCOUNTER 2019-10-20 17:32 | Inpatient (IN) | payer MEDICARE, BC ==
[2019-10-20] MEDS ORDERED: PIPERACILLIN-TAZOBACTAM 3.375 GM in SODIUM CHLORIDE 0.9% 100 ML IVPB STA (18:07)
[2019-10-20] MEDS ORDERED: VANCOMYCIN IV PER PHARMACY 1 EACH MISC MISCELLANE PRN (18:07)
[2019-10-20] MEDS ORDERED: MORPHINE SULFATE 4 MG/ML SYRINGE IVP STA (18:09)
--- NOTE | 2019-10-20 18:13 | ED ---
General Adult HPI - General Chief complaint: Skin/Abscess/Foreign Body Stated complaint: diabetic wounds Time Seen by Provider: 10/20/19 17:45 Source: patient, RN notes reviewed, old records reviewed Mode of arrival: wheelchair Limitations: no limitations - History of Present Illness Initial comments: Antony is a 74-year-old male with a history of diabetes and multiple morbidities. He presents today for diabetic wounds and bilateral lower extremities. He is sent here after evaluation by Dr. Ratliff. Patient reports no recent antibiotics at this time. Patient states that he does have a history of DVT, on coumadin and The past and has [place] filter. Patient reports is noticed some worsening lower extremity swelling bilaterally for the past few weeks. He denies any recent fever at this time. Patient states that he has been following with his Dr. Ratliff in the wound care clinic for many years regards to lower extremity wounds. - Related Data Home Medications Medication Instructions Recorded Confirmed Albuterol Inhaler [Ventolin Hfa 2 puff INHALATION RT-Q4H PRN 12/29/13 08/12/19 Inhaler] Budesonide/Formoterol Fumarate 2 puff INHALATION RT-BID 12/29/13 08/12/19 [Symbicort 160-4.5 Mcg Inhaler] Omeprazole [PriLOSEC] 20 mg PO AC-BRKFST 12/29/13 08/12/19 Atorvastatin [Lipitor] 10 mg PO HS 10/04/17 08/12/19 Warfarin [Coumadin] 2.5 mg PO HS 10/04/17 08/12/19 Warfarin [Coumadin] 5 mg PO HS 10/04/17 08/12/19 metFORMIN HCL 1,000 mg PO AC-BID 10/04/17 08/12/19 Diltiazem HCl 120 mg PO TID 11/21/18 08/12/19 Losartan Potassium 50 mg PO DAILY 11/21/18 08/12/19 Triamterene/Hydrochlorothiazid 1 tab PO DAILY 11/21/18 08/12/19 [Triamterene-Hctz 37.5-25 mg Tb] glipiZIDE XL [Glucotrol XL] 5 mg PO DAILY 11/21/18 08/12/19 tiZANidine [Zanaflex] 4 mg PO TID 01/06/19 08/12/19 Previous Rx's Medication Instructions Recorded Cephalexin [Keflex] 500 mg PO Q6HR #30 cap 01/09/19 Allergies Allergy/AdvReac Type Severity Reaction Status Date / Time iodine Allergy Anaphylaxis Verified 10/20/19 17:38 latex Allergy Unknown Verified 10/20/19 17:38 lisinopril Allergy Cough Verified 10/20/19 17:38 shellfish derived Allergy Anaphylaxis Verified 10/20/19 17:38 codeine AdvReac Rapid Verified 10/20/19 17:38 Heart Rate Review of Systems ROS Statement: Those systems with pertinent positive or pertinent negative responses have been documented in the HPI. ROS Other: All systems not noted in ROS Statement are negative. Past Medical History Past Medical History: Blood Disorder, Cancer, Pneumonia, Thyroid Disorder Additional Past Medical History / Comment(s): occular migraines, seasonal allergies, SOB with activity, hx cellulitis, neuropathy, clotting disorder- Factor V- Leiden, basal cell skin ca(folicular) , received shingles vaccine and hepatits a vaccine, hypothyrodism, Type 2 diabetes, medication controlled History of Any Multi-Drug Resistant Organisms: MRSA Date of last positivie culture/infection: 2012 MDRO Source:: bilateral legs Past Surgical History: Cholecystectomy, Hernia Repair, Tonsillectomy Additional Past Surgical History / Comment(s): colonoscopy, basal cell carcinoma from scalp, nasal/sinus, meet filter.pilonsial cyst removed, rt index finger sx- removed calcium deposit, umbilical hernia Past Anesthesia/Blood Transfusion Reactions: No Reported Reaction Past Psychological History: No Psychological Hx Reported Smoking Status: Former smoker Past Alcohol Use History: Rare Past Drug Use History: None Reported - Past Family History Mother Family Medical History: Coronary Artery Disease (CAD), Rheumatoid Arthritis (RA) Additional Family Medical History / Comment(s): age 70 heart problems- RA. Father Family Medical History: No Reported History Additional Family Medical History / Comment(s): age 72 General Exam - General Exam Comments Initial Comments: Alert and oriented pleasant 74-year-old male. No significant distress. Limitations: no limitations Head exam: Present: atraumatic, normocephalic, normal inspection Eye exam: Present: normal appearance, PERRL, EOMI. Absent: scleral icterus, conjunctival injection, periorbital swelling ENT exam: Present: normal exam, mucous membranes moist Neck exam: Present: normal inspection. Absent: tenderness, meningismus, lymphadenopathy Respiratory exam: Present: normal lung sounds bilaterally. Absent: respiratory distress, wheezes, rales, rhonchi, stridor Cardiovascular Exam: Present: regular rate, normal rhythm, normal heart sounds, systolic murmur, other (Is a systolic murmur). Absent: diastolic murmur, rubs, gallop, clicks GI/Abdominal exam: Present: soft, normal bowel sounds. Absent: distended, t enderness, guarding, rebound, rigid Extremities exam: Present: normal inspection, full ROM, normal capillary refill, other (Patient has significant bilateral lower extremity swelling and erythema. Multiple open wounds on bilateral ankles and calf.). Absent: tenderness, pedal edema, joint swelling Back exam: Present: normal inspection Neurological exam: Present: alert Psychiatric exam: Present: normal affect, normal mood Skin exam: Present: warm, dry, intact, normal color. Absent: rash Course Vital Signs 10/20/19 17:38 Temperature 98.4 F Pulse Rate 96 Respiratory 18 Rate Blood Pressure 135/80 O2 Sat by Pulse 97 Oximetry Medical Decision Making - Medical Decision Making 74-year-old male sent by Dr. Ratliff for evaluation sign of cellulitis and nonhealing wounds over bilateral lower extremities worsening for a few weeks. Patient is on Coumadin. Patient's INR is 5.4. Patient will be given a dose of vitamin K. Labs are reviewed. Patient's white blood cell count was reviewed and unremarkable. Troponin was negative. Does have a mildly elevated lactic acid of 2.4. She was started on Zosyn, and vancomycin. This initially admitted to the service of hospitalist with consult Dr. Ratliff. - Lab Data Result diagrams: 10/20/19 18:35 10/20/19 18:35 Lab Results 10/20/19 10/20/19 10/20/19 Range/Units 18:35 18:35 18:35 WBC 10.5 (3.8-10.6) k/uL RBC 5.32 (4.30-5.90) m/uL Hgb 13.9 (13.0-17.5) gm/dL Hct 44.1 (39.0-53.0) % MCV 82.9 (80.0-100.0) fL MCH 26.2 (25.0-35.0) pg MCHC 31.6 (31.0-37.0) g/dL RDW 17.4 H (11.5-15.5) % Plt Count 318 (150-450) k/uL Neutrophils % 82 % Lymphocytes % 7 % Monocytes % 5 % Eosinophils % 4 % Basophils % 1 % Neutrophils # 8.5 H (1.3-7.7) k/uL Lymphocytes # 0.8 L (1.0-4.8) k/uL Monocytes # 0.5 (0-1.0) k/uL Eosinophils # 0.4 (0-0.7) k/uL Basophils # 0.1 (0-0.2) k/uL Anisocytosis Slight PT (9.0-12.0) sec INR (<1.2) APTT (22.0-30.0) sec Sodium 139 (137-145) mmol/L Potassium 4.7 (3.5-5.1) mmol/L Chloride 101 (98-107) mmol/L Carbon Dioxide 25 (22-30) mmol/L Anion Gap 13 mmol/L BUN 18 (9-20) mg/dL Creatinine 0.88 (0.66-1.25) mg/dL Est GFR (CKD-EPI)AfAm >90 (>60 ml/min/1.73 sqM) Est GFR (CKD-EPI)NonAf 86 (>60 ml/min/1.73 sqM) Glucose 159 H (74-99) mg/dL Plasma Lactic Acid Christopher 2.2 H* (0.7-2.0) mmol/L Calcium 9.1 (8.4-10.2) mg/dL Total Bilirubin 0.5 (0.2-1.3) mg/dL AST 25 (17-59) U/L ALT 21 (4-49) U/L Alkaline Phosphatase 113 (38-126) U/L Troponin I (0.000-0.034) ng/mL NT-Pro-B Natriuret Pep pg/mL Total Protein 7.7 (6.3-8.2) g/dL Albumin 3.9 (3.5-5.0) g/dL Urine Color Urine Appearance (Clear) Urine pH (5.0-8.0) Ur Specific [place] (1.001-1.035) Urine Protein (Negative) Urine Glucose (UA) (Negative) Urine Ketones (Negative) Urine Blood (Negative) Urine Nitrite (Negative) Urine Bilirubin (Negative) Urine Urobilinogen (<2.0) mg/dL Ur Leukocyte Esterase (Negative) 10/20/19 10/20/19 10/20/19 Range/Units 18:35 18:35 18:35 WBC (3.8-10.6) k/uL RBC (4.30-5.90) m/uL Hgb (13.0-17.5) gm/dL Hct (39.0-53.0) % MCV (80.0-100.0) fL MCH (25.0-35.0) pg MCHC (31.0-37.0) g/dL RDW (11.5-15.5) % Plt Count (150-450) k/uL Neutrophils % % Lymphocytes % % Monocytes % % Eosinophils % % Basophils % % Neutrophils # (1.3-7.7) k/uL Lymphocytes # (1.0-4.8) k/uL Monocytes # (0-1.0) k/uL Eosinophils # (0-0.7) k/uL Basophils # (0-0.2) k/uL Anisocytosis PT 54.7 H (9.0-12.0) sec INR 5.4 H* (<1.2) APTT 40.3 H (22.0-30.0) sec Sodium (137-145) mmol/L Potassium (3.5-5.1) mmol/L Chloride (98-107) mmol/L Carbon Dioxide (22-30) mmol/L Anion Gap mmol/L BUN (9-20) mg/dL Creatinine (0.66-1.25) mg/dL Est GFR (CKD-EPI)AfAm (>60 ml/min/1.73 sqM) Est GFR (CKD-EPI)NonAf (>60 ml/min/1.73 sqM) Glucose (74-99) mg/dL Plasma Lactic Acid Christopher (0.7-2.0) mmol/L Calcium (8.4-10.2) mg/dL Total Bilirubin (0.2-1.3) mg/dL AST (17-59) U/L ALT (4-49) U/L Alkaline Phosphatase (38-126) U/L Troponin I (0.000-0.034) ng/mL NT-Pro-B Natriuret Pep 138 pg/mL Total Protein (6.3-8.2) g/dL Albumin (3.5-5.0) g/dL Urine Color Yellow Urine Appearance Clear (Clear) Urine pH 5.0 (5.0-8.0) Ur Specific [place] 1.024 (1.001-1.035) Urine Protein Negative (Negative) Urine Glucose (UA) Negative (Negative) Urine Ketones Negative (Negative) Urine Blood Negative (Negative) Urine Nitrite Negative (Negative) Urine Bilirubin Negative (Negative) Urine Urobilinogen <2.0 (<2.0) mg/dL Ur Leukocyte Esterase Negative (Negative) 10/20/19 Range/Units 18:35 WBC (3.8-10.6) k/uL RBC (4.30-5.90) m/uL Hgb (13.0-17.5) gm/dL Hct (39.0-53.0) % MCV (80.0-100.0) fL MCH (25.0-35.0) pg MCHC (31.0-37.0) g/dL RDW (11.5-15.5) % Plt Count (150-450) k/uL Neutrophils % % Lymphocytes % % Monocytes % % Eosinophils % % Basophils % % Neutrophils # (1.3-7.7) k/uL Lymphocytes # (1.0-4.8) k/uL Monocytes # (0-1.0) k/uL Eosinophils # (0-0.7) k/uL Basophils # (0-0.2) k/uL Anisocytosis PT (9.0-12.0) sec INR (<1.2) APTT (22.0-30.0) sec Sodium (137-145) mmol/L Potassium (3.5-5.1) mmol/L Chloride (98-107) mmol/L Carbon Dioxide (22-30) mmol/L Anion Gap mmol/L BUN (9-20) mg/dL Creatinine (0.66-1.25) mg/dL Est GFR (CKD-EPI)AfAm (>60 ml/min/1.73 sqM) Est GFR (CKD-EPI)NonAf (>60 ml/min/1.73 sqM) Glucose (74-99) mg/dL Plasma Lactic Acid Christopher (0.7-2.0) mmol/L Calcium (8.4-10.2) mg/dL Total Bilirubin (0.2-1.3) mg/dL AST (17-59) U/L ALT (4-49) U/L Alkaline Phosphatase (38-126) U/L Troponin I <0.012 (0.000-0.034) ng/mL NT-Pro-B Natriuret Pep pg/mL Total Protein (6.3-8.2) g/dL Albumin (3.5-5.0) g/dL Urine Color Urine Appearance (Clear) Urine pH (5.0-8.0) Ur Specific [place] (1.001-1.035) Urine Protein (Negative) Urine Glucose (UA) (Negative) Urine Ketones (Negative) Urine Blood (Negative) Urine Nitrite (Negative) Urine Bilirubin (Negative) Urine Urobilinogen (<2.0) mg/dL Ur Leukocyte Esterase (Negative) 10/20/19 19:46 EKG shows sinus rhythm with first-degree AV block. Nonspecific ST-T wave abnormality. Abnormal EKG. Ventricular rate of 97 bpm. As well as 262 ms. QRS duration is 82 ms. QT QTc is 370/445 ms. - Radiology Data Radiology results: report reviewed Pleural reaction and mild atelectasis of lung base is unchanged compared to last exam. No heart failure seen. X-ray shows extensive vascular calcification. Large ulcerated defect in the right anterior lower tibia with calcification. No fracture seen. No sign of osteomyelitis. Disposition Clinical Impression: Elevated lactic acid level, Chronic cutaneous venous stasis ulcer, Cellulitis of left lower extremity, Supratherapeutic INR Disposition: ADMITTED IP TO THIS HOSP Condition: Stable Additional Instructions: Please use medication as discussed. Please follow up with family doctor if symptoms have not improved over the next two days. Please return to the emergency room if your symptoms increase or worsen or for any other concerns. Is patient prescribed a controlled substance at d/c from ED?: No Referrals: Tatyana Mora MD [Primary Care Provider] - 1-2 days Time of Disposition: 20:26
[2019-10-20] MEDS ORDERED: VANCOMYCIN 2,000 MG in SODIUM CHLORIDE 0.9% 500 ML 500 ML IVPB ONE (18:30)
[2019-10-20 18:54] LABS: Anisocytosis Slight; Basophils # (A) 0.1 k/uL (0-0.2); Basophils % (A) 1 %; Eosinophils # (A) 0.4 k/uL (0-0.7); Eosinophils % (A) 4 %; HCT 44.1 % (39.0-53.0); HGB 13.9 gm/dL (13.0-17.5); Lymphocytes # (A) 0.8 k/uL (1.0-4.8); Lymphocytes % (A) 7 %; MCH 26.2 pg (25.0-35.0); MCHC 31.6 g/dL (31.0-37.0); MCV 82.9 fL (80.0-100.0); Mean Platelet Volume 7.5; Monocytes # (A) 0.5 k/uL (0-1.0); Monocytes % (A) 5 %; Neutrophils # (A) 8.5 k/uL (1.3-7.7); Neutrophils % (A) 82 %; Platelet Count 318 k/uL (150-450); RBC 5.32 m/uL (4.30-5.90); RDW 17.4 % (11.5-15.5); WBC 10.5 k/uL (3.8-10.6)
[2019-10-20 18:59] LABS: Appearance,Urine Clear (Clear); Bilirubin,Urine Negative (Negative); Blood,Urine Negative (Negative); Color,Urine Yellow; Glucose,Urine (UA) Negative (Negative); Ketones,Urine Negative (Negative); Leukocyte Esterase,Urine Negative (Negative); Nitrite,Urine Negative (Negative); Protein,Urine Negative (Negative); Specific Gravity,Urine 1.024 (1.001-1.035); Urobilinogen,Urine <2.0 mg/dL (<2.0)
[2019-10-20 19:02] LABS: ALT 21 U/L (4-49); AST 25 U/L (17-59); African American GFR (CKD) >90 (>60 ml/min/1.73 sqM); Albumin 3.9 g/dL (3.5-5.0); Alkaline Phosphatase 113 U/L (38-126); Anion Gap 13 mmol/L; Blood Urea Nitrogen 18 mg/dL (9-20); Calcium 9.1 mg/dL (8.4-10.2); Carbon Dioxide 25 mmol/L (22-30); Chloride 101 mmol/L (98-107); Glucose 159 mg/dL (74-99); Non-African American GFR(CKD) 86 (>60 ml/min/1.73 sqM); Partial Thromboplastin Time 40.3 sec (22.0-30.0); Potassium 4.7 mmol/L (3.5-5.1); Prothrombin Time 54.7 sec (9.0-12.0); Sodium 139 mmol/L (137-145); Total Bilirubin 0.5 mg/dL (0.2-1.3); Total Protein 7.7 g/dL (6.3-8.2)
[2019-10-20 19:10] LABS: INR 5.4 (<1.2)
[2019-10-20] MEDS ORDERED: SODIUM CHLORIDE 0.9% 1,000 ML IV ONE (19:15)
--- NOTE | 2019-10-20 19:59 | XR ---
EXAMINATION TYPE: XR tibia fibula bilateral DATE OF EXAM: 10/20/2019 COMPARISON: Right tibia and fibula 07/31/2012 HISTORY: Nonhealing wound right tibia TECHNIQUE: 4 views each leg. FINDINGS: There is vascular calcification. I see no fracture nor dislocation. I see no evidence of fo robert bone destruction. There is soft tissue calcification and ulceration defect over the anterior righ t mid and lower tibia. Knee joint spaces are fairly normal. Ankle joint spaces are normal. IMPRESSION: Extensive vascular calcification. Large ulcerated defect over the anterior right lower ti calin with calcification. No fracture seen. No sign of osteomyelitis.
--- NOTE | 2019-10-20 20:04 | XR ---
EXAMINATION TYPE: XR chest 2V DATE OF EXAM: 10/20/2019 COMPARISON: October 04, 2017 HISTORY: Bronchitis TECHNIQUE: 3 views FINDINGS: There is some coarse density at the lung bases with pleural reaction and atelectasis. There is no heart failure. Heart size is normal. IMPRESSION: Pleural reaction and mild atelectasis at the lung bases unchanged compared to last exam. No heart failure seen.
[2019-10-20] MEDS ORDERED: PHYTONADIONE ORAL 5 MG/5 ML ORAL.SYRG PO STA (20:26)
[2019-10-20] MEDS ORDERED: NALOXONE 0.4 MG/ML 1 ML VIAL IV PRN (20:28)
[2019-10-20] MEDS ORDERED: LORazepam 2 MG/ML INJ IV PRN (20:28)
[2019-10-20] MEDS ORDERED: ONDANSETRON 4 MG/2 ML VIAL IVP PRN (20:28)
[2019-10-20] MEDS ORDERED: IBUPROFEN 400 MG TAB PO PRN (20:28)
[2019-10-20] MEDS ORDERED: ACETAMINOPHEN TAB 325 MG TAB PO PRN (20:28)
[2019-10-20] MEDS: SODIUM CHLORIDE 0.9% 1,000 ML IV SCH (20:51)
[2019-10-20] MEDS: DILTIAZEM ORAL 60 MG TAB PO SCH (23:44)
[2019-10-20] MEDS: MONTELUKAST 10 MG TAB PO SCH (23:44)
[2019-10-21] MEDS: MORPHINE SULFATE 4 MG/ML SYRINGE IV PRN ×2 (03:23→21:43)
[2019-10-21] MEDS: PIPERACILLIN-TAZOBACTAM 3.375 GM in SODIUM CHLORIDE 0.9% 100 ML IVPB SCH ×2 (03:26→11:06)
[2019-10-21] MEDS: SODIUM CHLORIDE 0.9% 1,000 ML IV SCH ×3 (05:46→21:47)
[2019-10-21] MEDS: LEVOTHYROXINE 50 MCG TAB PO SCH (06:20)
[2019-10-21 07:11] LABS: Glucose,Whole Blood 118 mg/dL (75-99)
[2019-10-21 07:39] LABS: INR 3.1 (<1.2); Prothrombin Time 29.8 sec (9.0-12.0)
[2019-10-21] MEDS: INSULIN ASPART (NovoLOG) 100 UNIT/ML VIAL SQ SCH ×4 (07:41→21:21)
[2019-10-21] MEDS: DILTIAZEM ORAL 60 MG TAB PO SCH ×3 (08:45→21:21)
[2019-10-21] MEDS: TRIAMTERENE-HCTZ 37.5-25MG 1 EACH TAB PO SCH (08:45)
[2019-10-21] MEDS: LOSARTAN 25 MG TAB PO SCH (08:45)
[2019-10-21] MEDS: SPIRONOLACTONE 25 MG TAB PO SCH (08:46)
[2019-10-21] MEDS: ATORVASTATIN 10 MG TAB PO SCH (08:46)
[2019-10-21] MEDS: glipiZIDE 5 MG TAB PO SCH ×2 (08:46→21:21)
[2019-10-21] MEDS ORDERED: NON FORMULARY DRUG (Omeprazole [Prilosec] 20 MG) PO SCH (09:00)
[2019-10-21] MEDS ORDERED: PANTOPRAZOLE 40 MG/10 ML VIAL IV SCH (09:00)
[2019-10-21] MEDS: ALBUTEROL NEBULIZED 2.5 MG/3 ML INHALATION PRN ×4 (09:00→19:25)
[2019-10-21] MEDS: VANCOMYCIN 2,000 MG in SODIUM CHLORIDE 0.9% 500 ML 500 ML IVPB SCH ×2 (09:24→21:20)
[2019-10-21] MEDS: HYDROmorphone 0.5 MG/0.5 ML SYRINGE IVP PRN (11:08)
[2019-10-21 11:44] VITALS: BMI 43.4
[2019-10-21 11:49] LABS: Glucose,Whole Blood 147 mg/dL (75-99)
--- NOTE | 2019-10-21 11:53 | P.HPIM ---
History of Present Illness 74-year-old pleasant male with morbidly obese with chronic venous stasis and bilateral venous stasis ulcers came in for possible colitis patient is complaining of chills at home although he doesn't have any fever patient is on Coumadin so further brick on Coumadin INR of 45 Coumadin is being held patient is on Coumadin for atrial fibrillation. Patient had history of DVT as well and has a Meet filter along with Coumadin. Wound cultures and blood cultures were obtained patient was started on vancomycin and Zosyn. We'll consult infectious disease. Review of Systems REVIEW OF SYSTEMS: CONSTITUTIONAL: No fever, no malaise, no fatigue. HEENT: No recent visual problems or hearing problems. Denied any sore throat. CARDIOVASCULAR: No chest pain, orthopnea, PND, no palpitations, no syncope. PULMONARY: No shortness of breath, no cough, no hemoptysis. GASTROINTESTINAL: No diarrhea, no nausea, no vomiting, no abdominal pain. NEUROLOGICAL: No headaches, no weakness, no numbness. HEMATOLOGICAL: Denies any bleeding or petechiae. GENITOURINARY: Denies any burning micturition, frequency, or urgency. MUSCULOSKELETAL/RHEUMATOLOGICAL: Denies any joint pain, swelling, or any muscle pain. ENDOCRINE: Denies any polyuria or polydipsia. The rest of the 14-point review of systems is negative. Past Medical History Past Medical History: Asthma, Blood Disorder, Cancer, Diabetes Mellitus, Deep Vein Thrombosis (DVT), Hypertension, Pneumonia, Thyroid Disorder Additional Past Medical History / Comment(s): occular migraines, seasonal allergies, SOB with activity, hx cellulitis, neuropathy, clotting disorder- Factor V- Leiden, basal cell skin ca(folicular) , received shingles vaccine and hepatits a vaccine, hypothyrodism, Type 2 diabetes, medication controlled History of Any Multi-Drug Resistant Organisms: MRSA Date of last positivie culture/infection: 2012 MDRO Source:: bilateral legs Past Surgical History: Cholecystectomy, Hernia Repair, Tonsillectomy Additional Past Surgical History / Comment(s): colonoscopy, basal cell carcinoma from scalp, nasal/sinus, meet filter.pilonsial cyst removed, rt index finger sx- removed calcium deposit, umbilical hernia Past Anesthesia/Blood Transfusion Reactions: No Reported Reaction Past Psychological History: No Psychological Hx Reported Additional Psychological History / Comment(s): Patient lives with his , in house. Patietn has stairs at home: 13. Patient has canes, walkers, ect at home for when needed. Doesn't utilize any currently. Smoking Status: Former smoker Past Alcohol Use History: Rare Additional Past Alcohol Use History / Comment(s): Started smoking at age 17(1962) and quit age 30(1974). Couple of bottles of beer a week per patient. Past Drug Use History: None Reported - Past Family History Mother Family Medical History: Coronary Artery Disease (CAD), Rheumatoid Arthritis (RA) Additional Family Medical History / Comment(s): age 70 heart problems- RA. Father Family Medical History: No Reported History Additional Family Medical History / Comment(s): age 72 Medications and Allergies Home Medications Medication Instructions Recorded Confirmed Type Albuterol Inhaler [Ventolin Hfa 2 puff INHALATION RT-Q4H PRN 12/29/13 10/20/19 History Inhaler] Omeprazole [PriLOSEC] 20 mg PO DAILY 12/29/13 10/20/19 History Atorvastatin [Lipitor] 10 mg PO DAILY 10/04/17 10/20/19 History Diltiazem HCl 120 mg PO TID 11/21/18 10/20/19 History Triamterene/Hydrochlorothiazid 1 tab PO DAILY 11/21/18 10/20/19 History [Triamterene-Hctz 37.5-25 mg Tb] HYDROcodone/APAP 5-325MG [[place] 1 tab PO BID PRN 10/20/19 10/20/19 History 5-325] Levothyroxine Sodium [Synthroid] 200 mcg PO DAILY 10/20/19 10/20/19 History Losartan [Cozaar] 50 mg PO DAILY 10/20/19 10/20/19 History Montelukast Sodium [Singulair] 10 mg PO HS 10/20/19 10/20/19 History Spironolactone 50 mg PO DAILY 10/20/19 10/20/19 History Warfarin Sodium [Coumadin] 7.5 mg PO HS 10/20/19 10/20/19 History glipiZIDE XL [Glucotrol Xl] 10 mg PO DAILY 10/20/19 10/20/19 History Allergies Allergy/AdvReac Type Severity Reaction Status Date / Time iodine Allergy Anaphylaxis Verified 10/20/19 22:02 latex Allergy Unknown Verified 10/20/19 22:02 lisinopril Allergy Cough Verified 10/20/19 22:02 shellfish derived Allergy Anaphylaxis Verified 10/20/19 22:02 codeine AdvReac Rapid Verified 10/20/19 22:02 Heart Rate Physical Exam Vitals: Vital Signs Temp Pulse Pulse Resp BP BP Pulse Ox 10/21/19 10:06 95 18 10/21/19 09:20 98.8 F 95 18 127/82 92 L 10/21/19 09:13 90 10/21/19 09:02 86 93 L 10/21/19 01:15 98.4 F 88 15 134/71 95 10/20/19 22:32 98.9 F 94 15 139/77 95 10/20/19 22:25 88 16 139/82 95 10/20/19 20:34 98.5 F 90 18 146/90 96 10/20/19 17:38 98.4 F 96 18 135/80 97 Intake and Output 10/20/19 10/21/19 10/21/19 22:59 06:59 14:59 Intake Total 450 Output Total 400 300 Balance -400 150 Intake: Intake, IV Titration 300 Amount Sodium Chloride 0.9% 1, 300 000 ml @ 100 mls/hr IV . Q10H [facility] Rx#:[id number] Oral 150 Output: Urine 400 300 Other: Voiding Method Urinal Weight 145.15 kg 145.15 kg PHYSICAL EXAMINATION: GENERAL: The patient is alert and oriented x3, not in any acute distress. Obese HEENT: Pupils are round and equally reacting to light. EOMI. No scleral icterus. No conjunctival pallor. Normocephalic, atraumatic. No pharyngeal erythema. No thyromegaly. CARDIOVASCULAR: S1 and S2 present. No murmurs, rubs, or gallops. PULMONARY: Chest is clear to auscultation, no wheezing or crackles. ABDOMEN: Soft, nontender, nondistended, normoactive bowel sounds. No palpable organomegaly. MUSCULOSKELETAL: No joint swelling or deformity. EXTREMITIES: No cyanosis, clubbing, bilateral pedal edema NEUROLOGICAL: Gross neurological examination did not reveal any focal deficits. SKIN: Bilateral pedal edema at extensive redness and multiple ulcers chronic venous stasis possible cellulitis of both extremities Results CBC & Chem 7: 10/20/19 18:35 10/20/19 18:35 Labs: Abnormal Lab Results - Last 24 Hours (Table) 10/20/19 10/20/19 10/20/19 Range/Units 18:35 18:35 18:35 RDW 17.4 H (11.5-15.5) % Neutrophils # 8.5 H (1.3-7.7) k/uL Lymphocytes # 0.8 L (1.0-4.8) k/uL PT (9.0-12.0) sec INR (<1.2) APTT (22.0-30.0) sec Glucose 159 H (74-99) mg/dL POC Glucose (mg/dL) (75-99) mg/dL Plasma Lactic Acid Christopher 2.2 H* (0.7-2.0) mmol/L 10/20/19 10/21/19 10/21/19 Range/Units 18:35 06:24 07:09 RDW (11.5-15.5) % Neutrophils # (1.3-7.7) k/uL Lymphocytes # (1.0-4.8) k/uL PT 54.7 H 29.8 H (9.0-12.0) sec INR 5.4 H* 3.1 H (<1.2) APTT 40.3 H (22.0-30.0) sec Glucose (74-99) mg/dL POC Glucose (mg/dL) 118 H (75-99) mg/dL Plasma Lactic Acid Christopher (0.7-2.0) mmol/L Microbiology - Last 24 Hours (Table) 10/20/19 18:35 Gram Stain - Preliminary Leg - Right Wound Culture - Preliminary 10/20/19 18:35 Gram Stain - Preliminary Leg - Left Wound Culture - Preliminary Thrombosis Risk Factor Assmnt - Choose All That Apply Any of the Below Risk Factors Present?: Yes Each Factor Represents 1 point: Obesity (BMI >25), Swollen legs (current) Other Risk Factors: Yes Each Risk Factor Represents 2 Points: Age 61-74 years Other congenital or acquired thrombophilia - If yes, enter type in comment: No Thrombosis Risk Factor Assessment Total Risk Factor Score: 4 Thrombosis Risk Factor Assessment Level: Moderate Risk Assessment and Plan Plan: -Possible infected ulcers both extremities patient will be continued on the hospital from antibiotics and infectious disease will evaluate the patient will Continue local wound care and the wound cultures and blood cultures were o btained -Suppository cannot patient received vitamin K. We'll hold off on Coumadin now and the patient is to be in a low-dose of Coumadin takes about 7.5 mg patient will be resumed on probably on 5 mg of Coumadin from tomorrow -Atrial fibrillation presently rate controlled continue with the rate control medications that is still has him. -Hypertension patient was resumed on his home medications including diuretics -Hyperlipidemia -DVT in the past with the IVC filter -Gastric esophageal reflux disease -Type 2 diabetes mellitus patient was resumed on home regimen along with sliding scale will continue to monitor blood sugars
[2019-10-21 16:51] LABS: Glucose,Whole Blood 174 mg/dL (75-99)
[2019-10-21 20:32] LABS: Glucose,Whole Blood 144 mg/dL (75-99)
[2019-10-21] MEDS: CEFEPIME 2 GM in SODIUM CHLORIDE 0.9% 100 ML IVPB SCH (21:20)
[2019-10-21] MEDS: MONTELUKAST 10 MG TAB PO SCH (21:21)
[2019-10-22] MEDS: LEVOTHYROXINE 50 MCG TAB PO SCH (05:37)
[2019-10-22] MEDS: SODIUM CHLORIDE 0.9% 1,000 ML IV SCH ×2 (05:38→22:43)
[2019-10-22 07:19] LABS: Glucose,Whole Blood 105 mg/dL (75-99)
[2019-10-22] MEDS: INSULIN ASPART (NovoLOG) 100 UNIT/ML VIAL SQ SCH ×4 (07:28→20:47)
[2019-10-22] MEDS: ALBUTEROL NEBULIZED 2.5 MG/3 ML INHALATION PRN ×4 (08:27→20:42)
[2019-10-22 08:28] LABS: African American GFR (CKD) >90 (>60 ml/min/1.73 sqM); Anion Gap 8 mmol/L; Blood Urea Nitrogen 17 mg/dL (9-20); Calcium 8.7 mg/dL (8.4-10.2); Carbon Dioxide 26 mmol/L (22-30); Chloride 101 mmol/L (98-107); Glucose 111 mg/dL (74-99); Non-African American GFR(CKD) 80 (>60 ml/min/1.73 sqM); Potassium 4.6 mmol/L (3.5-5.1); Sodium 135 mmol/L (137-145)
[2019-10-22 08:33] LABS: Anisocytosis Slight; HCT 40.6 % (39.0-53.0); HGB 12.8 gm/dL (13.0-17.5); Hypochromasia Slight; MCH 26.6 pg (25.0-35.0); MCHC 31.4 g/dL (31.0-37.0); MCV 84.9 fL (80.0-100.0); Mean Platelet Volume 7.4; Platelet Count 299 k/uL (150-450); RBC 4.79 m/uL (4.30-5.90); RDW 17.2 % (11.5-15.5); WBC 9.1 k/uL (3.8-10.6)
[2019-10-22] MEDS: ATORVASTATIN 10 MG TAB PO SCH (08:46)
[2019-10-22] MEDS: TRIAMTERENE-HCTZ 37.5-25MG 1 EACH TAB PO SCH (08:46)
[2019-10-22] MEDS: DILTIAZEM ORAL 60 MG TAB PO SCH ×3 (08:46→20:29)
[2019-10-22] MEDS: SPIRONOLACTONE 25 MG TAB PO SCH (08:46)
[2019-10-22] MEDS: LOSARTAN 25 MG TAB PO SCH (08:46)
[2019-10-22] MEDS: PANTOPRAZOLE 40 MG TABLET PO SCH (08:46)
[2019-10-22] MEDS: glipiZIDE 5 MG TAB PO SCH ×2 (08:46→20:29)
[2019-10-22 08:48] LABS: INR 1.4 (<1.2)
[2019-10-22] MEDS: VANCOMYCIN 2,000 MG in SODIUM CHLORIDE 0.9% 500 ML 500 ML IVPB SCH ×2 (09:25→20:29)
[2019-10-22] MEDS: CEFEPIME 2 GM in SODIUM CHLORIDE 0.9% 100 ML IVPB SCH ×2 (09:25→20:30)
--- NOTE | 2019-10-22 10:38 | P.CONS ---
History of Present Illness - Reason for Consult Consult date: 10/21/19 bilateral leg wound and cellulitis Requesting physician: Jaqui Herndon - Chief Complaint non healing leg wound and more redness x days - History of Present Illness Patient is a 74-year-old male with a past medical history difficult for chronic nonhealing wound to bilateral lower extremity for which the patient follows with Dr. Ratliff in the wound care center, patient was evaluated in the wound care center yesterday where he was noticed to have worsening cellulitis and the patient has been sent to the ER for admission IV antibiotic therapy patient apparently having more swelling to the leg for last few days and slight more redness to the left leg he did have mild dull aching pain 2-3 out of 10 and no radiation for the last few days , the patient denies high-grade fever however did have some chills on arrival to the ER the patient was afebrile patient white count normal at 10.5 creatinine 0.95 patient was started on vancomycin and Zosyn admitted to hospital infectious was consulted for further recommendation about antibiotic therapy. Review of Systems Positive point has been mentioned HPI rest of the systems are negative Past Medical History Past Medical History: Asthma, Blood Disorder, Cancer, Diabetes Mellitus, Deep Vein Thrombosis (DVT), Hypertension, Pneumonia, Thyroid Disorder Additional Past Medical History / Comment(s): occular migraines, seasonal allergies, SOB with activity, hx cellulitis, neuropathy, clotting disorder- Factor V- Leiden, basal cell skin ca(folicular) , received shingles vaccine and hepatits a vaccine, hypothyrodism, Type 2 diabetes, medication controlled History of Any Multi-Drug Resistant Organisms: MRSA Year Discovered:: 2012 MDRO Source:: bilateral legs Past Surgical History: Cholecystectomy, Hernia Repair, Tonsillectomy Additional Past Surgical History / Comment(s): colonoscopy, basal cell carcinoma from scalp, nasal/sinus, meet filter.pilonsial cyst removed, rt index fing er sx- removed calcium deposit, umbilical hernia Past Anesthesia/Blood Transfusion Reactions: No Reported Reaction Past Psychological History: No Psychological Hx Reported Additional Psychological History / Comment(s): Patient lives with his , in house. Patietn has stairs at home: 13. Patient has canes, walkers, ect at home for when needed. Doesn't utilize any currently. Smoking Status: Former smoker Past Alcohol Use History: Rare Additional Past Alcohol Use History / Comment(s): Started smoking at age 17(1962) and quit age 30(1974). Couple of bottles of beer a week per patient. Past Drug Use History: None Reported - Past Family History Mother Family Medical History: Coronary Artery Disease (CAD), Rheumatoid Arthritis (RA) Additional Family Medical History / Comment(s): age 70 heart problems- RA. Father Family Medical History: No Reported History Additional Family Medical History / Comment(s): age 72 Medications and Allergies Home Medications Medication Instructions Recorded Confirmed Type Albuterol Inhaler [Ventolin Hfa 2 puff INHALATION RT-Q4H PRN 12/29/13 10/20/19 History Inhaler] Omeprazole [PriLOSEC] 20 mg PO DAILY 12/29/13 10/20/19 History Atorvastatin [Lipitor] 10 mg PO DAILY 10/04/17 10/20/19 History Diltiazem HCl 120 mg PO TID 11/21/18 10/20/19 History Triamterene/Hydrochlorothiazid 1 tab PO DAILY 11/21/18 10/20/19 History [Triamterene-Hctz 37.5-25 mg Tb] HYDROcodone/APAP 5-325MG [Hyampom 1 tab PO BID PRN 10/20/19 10/20/19 History 5-325] Levothyroxine Sodium [Synthroid] 200 mcg PO DAILY 10/20/19 10/20/19 History Losartan [Cozaar] 50 mg PO DAILY 10/20/19 10/20/19 History Montelukast Sodium [Singulair] 10 mg PO HS 10/20/19 10/20/19 History Spironolactone 50 mg PO DAILY 10/20/19 10/20/19 History Warfarin Sodium [Coumadin] 7.5 mg PO HS 10/20/19 10/20/19 History glipiZIDE XL [Glucotrol Xl] 10 mg PO DAILY 10/20/19 10/20/19 History Allergies Allergy/AdvReac Type Severity Reaction Status Date / Time iodine Allergy Anaphylaxis Verified 10/20/19 22:02 latex Allergy Unknown Verified 10/20/19 22:02 lisinopril Allergy Cough Verified 10/20/19 22:02 shellfish derived Allergy Anaphylaxis Verified 10/20/19 22:02 codeine AdvReac Rapid Verified 10/20/19 22:02 Heart Rate Physical Exam Vitals: Vital Signs Temp Pulse Pulse Resp BP BP Pulse Ox 10/21/19 10:06 95 18 10/21/19 09:20 98.8 F 95 18 127/82 92 L 10/21/19 09:13 90 10/21/19 09:02 86 93 L 10/21/19 01:15 98.4 F 88 15 134/71 95 10/20/19 22:32 98.9 F 94 15 139/77 95 10/20/19 22:25 88 16 139/82 95 10/20/19 20:34 98.5 F 90 18 146/90 96 10/20/19 17:38 98.4 F 96 18 135/80 97 Intake and Output 10/20/19 10/21/19 10/21/19 22:59 06:59 14:59 Intake Total 450 Output Total 400 300 Balance -400 150 Intake: Intake, IV Titration 300 Amount Sodium Chloride 0.9% 1, 300 000 ml @ 100 mls/hr IV . Q10H [facility] Rx#:[id number] Oral 150 Output: Urine 400 300 Other: Voiding Method Urinal Weight 145.15 kg 145.15 kg GENERAL DESCRIPTION: Elderly male up in the chair, no distress. No tachypnea or accessory muscle of respiration use. HEENT: Shows Pallor , no scleral icterus. Oral mucous membrane is dry. No pharyngeal erythema or thrush NECK: Trachea central, no thyromegaly. LUNGS: Unlabored breathing. Clear to auscultation anteriorly. No wheeze or crackle. HEART: S1, S2, regular rate and rhythm. No loud murmur ABDOMEN: Soft, no tenderness , guarding or rigidity, no organomegaly EXTREMITIES: Chronic swelling both lower extremity and this patient did have a ulceration both leg on the lateral side those looks clean with no slough tissue wound on the right medial leg did have some slough tissue patient did have more swelling and redness to the left leg which is warm to touch. SKIN: No rash, no masses palpable. NEUROLOGICAL: The patient is awake, alert, oriented x3, mood and affect normal. Results CBC & Chem 7: 10/22/19 07:27 10/22/19 07:27 Labs: Abnormal Lab Results - Last 24 Hours (Table) 10/20/19 10/20/1910/20/20 Range/Units 18:35 18:35 18:35 RDW 17.4 H (11.5-15.5) % Neutrophils # 8.5 H (1.3-7.7) k/uL Lymphocytes # 0.8 L (1.0-4.8) k/uL PT (9.0-12.0) sec INR (<1.2) APTT (22.0-30.0) sec Glucose 159 H (74-99) mg/dL POC Glucose (mg/dL) (75-99) mg/dL Plasma Lactic Acid Christopher 2.2 H* (0.7-2.0) mmol/L 10/20/19 10/21/19 10/21/19 Range/Units 18:35 06:24 07:09 RDW (11.5-15.5) % Neutrophils # (1.3-7.7) k/uL Lymphocytes # (1.0-4.8) k/uL PT 54.7 H 29.8 H (9.0-12.0) sec INR 5.4 H* 3.1 H (<1.2) APTT 40.3 H (22.0-30.0) sec Glucose (74-99) mg/dL POC Glucose (mg/dL) 118 H (75-99) mg/dL Plasma Lactic Acid Christopher (0.7-2.0) mmol/L 10/21/19 Range/Units 11:47 RDW (11.5-15.5) % Neutrophils # (1.3-7.7) k/uL Lymphocytes # (1.0-4.8) k/uL PT (9.0-12.0) sec INR (<1.2) APTT (22.0-30.0) sec Glucose (74-99) mg/dL POC Glucose (mg/dL) 147 H (75-99) mg/dL Plasma Lactic Acid Christopher (0.7-2.0) mmol/L Microbiology - Last 24 Hours (Table) 10/20/19 18:35 Gram Stain - Preliminary Leg - Right Wound Culture - Preliminary 10/20/19 18:35 Gram Stain - Preliminary Leg - Left Wound Culture - Preliminary Assessment and Plan Assessment: 1-patient with bilateral lower extremity venous stasis ulcer in this patient currently being admitted to hospital with cellulitis predominantly in the left leg compared to the right leg will need to cover for both gram-positive as well as gram-negative pathogen in view of chronicity of this wounds (1) Cellulitis of left lower extremity Current Visit: Yes Status: Acute Code(s): L03.116 - CELLULITIS OF LEFT LOWER LIMB SNOMED Code(s): 139606289 (2) Chronic cutaneous venous stasis ulcer Current Visit: Yes Status: Acute Code(s): I83.009 - VARICOSE VEINS OF UNSP LOWER EXTREMITY W ULCER OF UNSP SITE; L97.909 - NON-PRS CHRONIC ULC UNSP PRT OF UNSP LOW LEG W UNSP SEVERITY SNOMED Code(s): 41767664 Plan: 1-vancomycin pharmacy to dose target trough of 15 while watching his kidney function and vancomycin trough closely 2-discontinue Zosyn to decrease risk of nephrotoxicity and add cefepime 2 g every 12 to cover for the gram-negative 3-dry Aquacel dressing to the wound with no slough, medahoney to the right medial leg wound with slough tissue dressing to be changed daily We will follow on clinical condition and cultures to further adjust medication if needed Thank you for this consultation will follow this patient along with you Time with Patient: Greater than 30
[2019-10-22 11:44] LABS: Glucose,Whole Blood 116 mg/dL (75-99)
--- NOTE | 2019-10-22 11:54 | P.PN ---
Subjective Patient is admitted for bilateral lower extremity venous stasis ulcers which are probably infected wound cultures are showing gram-negative bacilli and patient is on cefepime and vancomycin infectious disease following the patient. Constitutional: Denied any fatigue denied any fever. Cardio vascular: denied any chest pain, palpitations Gastrointestinal denied any nausea vomiting Pulmonary: Denied any shortness of breath cough Neurologic denied any new focal deficits All inpatient medications were reviewed and appropriate changes in these me dications as dictated in the interval history and assessment and plan. Objective - Vital Signs Vital signs: Vital Signs Temp 98.2 F 10/22/19 08:28 Pulse 79 10/22/19 08:40 Resp 19 10/22/19 08:28 BP 110/61 10/22/19 08:28 Pulse Ox 92 L 10/22/19 08:28 Intake & Output 10/21/19 10/22/19 10/22/19 18:59 06:59 18:59 Intake Total 1000 Output Total 375 450 Balance 625 -450 Weight 145.15 kg Intake: Intake, IV Titration 1000 Amount Piperacillin-Tazobactam 3 100 .375 gm In Sodium Chloride 0.9% 100 ml @ 25 mls/hr IVPB Q8H [facility] Rx#: [id number] Sodium Chloride 0.9% 1, 400 000 ml @ 100 mls/hr IV . Q10H [facility] Rx#:[id number] Vancomycin 2,000 mg In 500 Sodium Chloride 0.9% 500 ml 500 ml @ 167 mls/hr IVPB Q12HR [facility] Rx#: [id number] Output: Urine 375 450 Other: Voiding Method Urinal Urinal # Voids 1 - Exam PHYSICAL EXAMINATION: GENERAL: The patient is alert and oriented x3, not in any acute distress. Obese HEENT: Pupils are round and equally reacting to light. EOMI. No scleral icterus. No conjunctival pallor. Normocephalic, atraumatic. No pharyngeal erythema. No thyromegaly. CARDIOVASCULAR: S1 and S2 present. No murmurs, rubs, or gallops. PULMONARY: Chest is clear to auscultation, no wheezing or crackles. ABDOMEN: Soft, nontender, nondistended, normoactive bowel sounds. No palpable organomegaly. MUSCULOSKELETAL: No joint swelling or deformity. EXTREMITIES: No cyanosis, clubbing, bilateral pedal edema NEUROLOGICAL: Gross neurological examination did not reveal any focal deficits. SKIN: Bilateral pedal edema at extensive redness and multiple ulcers chronic venous stasis possible cellulitis of both extremities - Labs CBC & Chem 7: 10/22/19 07:27 10/22/19 07:27 Labs: Abnormal Lab Results - Last 24 Hours (Table) 10/21/19 10/21/19 10/22/19 Range/Units 16:49 20:30 07:17 Hgb (13.0-17.5) gm/dL RDW (11.5-15.5) % PT (9.0-12.0) sec INR (<1.2) Sodium (137-145) mmol/L Glucose (74-99) mg/dL POC Glucose (mg/dL) 174 H 144 H 105 H (75-99) mg/dL 10/22/19 10/22/19 10/22/19 Range/Units 07:27 07:27 07:27 Hgb 12.8 L (13.0-17.5) gm/dL RDW 17.2 H (11.5-15.5) % PT 14.0 H (9.0-12.0) sec INR 1.4 H (<1.2) Sodium 135 L (137-145) mmol/L Glucose 111 H (74-99) mg/dL POC Glucose (mg/dL) (75-99) mg/dL 10/22/19 Range/Units 11:33 Hgb (13.0-17.5) gm/dL RDW (11.5-15.5) % PT (9.0-12.0) sec INR (<1.2) Sodium (137-145) mmol/L Glucose (74-99) mg/dL POC Glucose (mg/dL) 116 H (75-99) mg/dL Microbiology - Last 24 Hours (Table) 10/20/19 18:35 Blood Culture - Preliminary Blood No Growth after 24 hours 10/20/19 18:35 Gram Stain - Preliminary Leg - Right Wound Culture - Preliminary Gram Neg Bacilli Assessment and Plan Plan: -Possible infected ulcers both extremities patient will be continued on the ho spital from antibiotics and infectious disease will evaluate the patient will Continue local wound care and the wound cultures and blood cultures were obtained which is showing gram-negative bacilli -Supratherapeutic patient received vitamin K. His INR is 1.5 today patient will be started on 5 mg of Coumadin repeat INR tomorrow patient takes on 0.5 mg of Coumadin -Atrial fibrillation presently rate controlled continue with the rate control medications that is still has him. -Hypertension patient was resumed on his home medications including diuretics -Hyperlipidemia -DVT in the past with the IVC filter -Gastric esophageal reflux disease -Type 2 diabetes mellitus patient was resumed on home regimen along with sliding scale will continue to monitor blood sugars
[2019-10-22] MEDS: MORPHINE SULFATE 4 MG/ML SYRINGE IV PRN (13:43)
[2019-10-22 17:04] LABS: Glucose,Whole Blood 135 mg/dL (75-99)
[2019-10-22] MEDS: WARFARIN 5 MG TAB PO SCH (17:40)
[2019-10-22 20:22] LABS: Glucose,Whole Blood 184 mg/dL (75-99)
[2019-10-22] MEDS: MONTELUKAST 10 MG TAB PO SCH (20:29)
--- NOTE | 2019-10-22 21:52 | PN ---
PROGRESS NOTE DATE OF SERVICE: 10/22/2019 REASON FOR FOLLOWUP: Bilateral lower extremity venostasis ulcers and cellulitis. INTERVAL HISTORY: The patient is currently afebrile. The patient has been breathing comfortably. Denies having any chest pain or cough. No nausea, vomiting or any worsening pain to the leg wounds. PHYSICAL EXAMINATION: Blood pressure 110/65 with a pulse of 81, temperature 98.1. He is 92% on room air. General description is an elderly male lying in bed in no distress. RESPIRATORY SYSTEM: Unlabored breathing. Clear to auscultation anteriorly. HEART: S1, S2. Regular rate and rhythm. ABDOMEN: Soft. No tenderness. BILATERAL LEG WOUNDS: Redness slightly decreased. No drainage. LABS: Hemoglobin is 12.3, white count of 9.1. BUN of 17, creatinine 0.95. Wound culture has been Proteus and Staph aureus. DIAGNOSTIC IMPRESSION AND PLAN: Patient with bilateral lower extremity venostasis ulcers and cellulitis, especially left leg. Culture has been Staphylococcus aureus and Proteus. Patient is covered with cefepime and vancomycin; to continue and monitor his clinical course closely. Continue with supportive care. MMODL / IJN: [id number] /
[2019-10-23] MEDS: MORPHINE SULFATE 4 MG/ML SYRINGE IV PRN ×3 (01:09→16:43)
[2019-10-23] MEDS: LEVOTHYROXINE 50 MCG TAB PO SCH (05:28)
[2019-10-23 06:32] LABS: INR 1.4 (<1.2)
[2019-10-23 07:18] LABS: African American GFR (CKD) >90 (>60 ml/min/1.73 sqM); Anion Gap 10 mmol/L; Blood Urea Nitrogen 21 mg/dL (9-20); Calcium 8.9 mg/dL (8.4-10.2); Carbon Dioxide 20 mmol/L (22-30); Chloride 104 mmol/L (98-107); Glucose 168 mg/dL (74-99); Non-African American GFR(CKD) 86 (>60 ml/min/1.73 sqM); Potassium 4.8 mmol/L (3.5-5.1); Sodium 134 mmol/L (137-145)
[2019-10-23 07:20] LABS: Glucose,Whole Blood 130 mg/dL (75-99)
[2019-10-23] MEDS: ALBUTEROL NEBULIZED 2.5 MG/3 ML INHALATION PRN ×3 (07:31→15:53)
[2019-10-23] MEDS: INSULIN ASPART (NovoLOG) 100 UNIT/ML VIAL SQ SCH ×4 (07:40→21:26)
[2019-10-23] MEDS: CEFEPIME 2 GM in SODIUM CHLORIDE 0.9% 100 ML IVPB SCH ×2 (07:55→21:26)
[2019-10-23] MEDS: SPIRONOLACTONE 25 MG TAB PO SCH (07:56)
[2019-10-23] MEDS: LOSARTAN 25 MG TAB PO SCH (07:56)
[2019-10-23] MEDS: ATORVASTATIN 10 MG TAB PO SCH (07:56)
[2019-10-23] MEDS: PANTOPRAZOLE 40 MG TABLET PO SCH (07:56)
[2019-10-23] MEDS: glipiZIDE 5 MG TAB PO SCH ×2 (07:56→21:27)
[2019-10-23] MEDS: TRIAMTERENE-HCTZ 37.5-25MG 1 EACH TAB PO SCH (07:57)
[2019-10-23] MEDS: DILTIAZEM ORAL 60 MG TAB PO SCH ×3 (07:57→21:27)
[2019-10-23] MEDS: SODIUM CHLORIDE 0.9% 1,000 ML IV SCH ×2 (07:57→17:46)
[2019-10-23] MEDS ORDERED: VANCOMYCIN TROUGH DUE 1 EACH MISC MISCELLANE ONE (08:00)
[2019-10-23] MEDS: VANCOMYCIN 2,000 MG in SODIUM CHLORIDE 0.9% 500 ML 500 ML IVPB SCH ×2 (09:22→21:27)
[2019-10-23 11:50] LABS: Glucose,Whole Blood 135 mg/dL (75-99)
--- NOTE | 2019-10-23 12:02 | CDI ---
Documentation Clarification Form Date: 10/23/2019 11:33:23 AM From: Lissa Dudley RN, CCDS Admit Date: 10/22/2019 08:00:00 AM Patient Name: Antony De La Cruz Visit Number: [id number] Discharge Date: ATTENTION: The Clinical Documentation Specialists (CDI) and [facility] Coding Staff appreciate your assistance in clarifying documentation. Please respond to the clarification below the line at the bottom and electronically sign. The CDI & [facility] Coding staff will review the response and follow-up if needed. Please note: Queries are made part of the Legal Health Record. If you have any questions, please contact the author of this message via ITS. Dr. Jaqui Herndon Atrial Fibrillation is documented in the HK&P and progress note on current progress notes and further specificity is needed. History/Risk Factors: DVT, Factor V-Leiden, Cellulitis, Clinical Indicators: 74-year-old male who present on 10/20 for evaluation signs of cellulites and nonhealing wounds of bilateral lower extremities. ED reports history of DVT, on Coumadin and has [place] filter. 10/21 H&P "Atrial fibrillation presently rate controlled continue with the control medication that is still has him". EKG/telemetry: Sinus rhythm with 1st degree AV block, Nonspecific ST abnormality. Rate 87 bpm. Treatment: Coumadin 5 mg PO Daily (Pharmacy dose protocol active) PT/INR 10/22-10/24 In your professional opinion, can you please clarify the type of Atrial Fibrillation, if known? Chronic/Permanent Paroxysmal Persistent Other, please specify Unable to determine (Last Revision: November 2017) Unable to determine MTDD
--- NOTE | 2019-10-23 13:51 | PN ---
PROGRESS NOTE DATE OF SERVICE: 10/23/2019 REASON FOR FOLLOWUP: Bilateral lower extremity wound and cellulitis. INTERVAL HISTORY: The patient is currently afebrile. The patient has been breathing comfortably. The patient denies having any chest pain or cough. No abdominal pain,or any worsening pain to the leg area. PHYSICAL EXAMINATION: Blood pressure 146/73 with a pulse of 78, temperature 98.2. He is 95% on room air. General description is an elderly male lying in bed in no distress. RESPIRATORY SYSTEM: Unlabored breathing, clear to auscultation anteriorly. HEART: S1, S2. Regular rate and rhythm. ABDOMEN: Soft, no tenderness. Bilateral legs are currently wrapped up. There is no drainage on the dressing. LABS: BUN of 21, creatinine 0.87. Wound culture with Proteus sensitivity and Staph aureus is currently pending. DIAGNOSTIC IMPRESSION AND PLAN: Patient with bilateral lower extremity venous stasis ulcer with secondary cellulitis left greater than right. Cultures are not currently completely finalized. The patient to continue with cefepime and vancomycin with discharge antibiotic depending on the clinical response and culture. Local wound care to continue with dry Aquacel silver dressing and Zeus wrap, and monitor his clinical course closely. MMODL / IJN: [id number] /
[2019-10-23] MEDS ORDERED: FUROSEMIDE 10 MG/ML 4 ML VIAL IV STA (14:04)
--- NOTE | 2019-10-23 14:27 | P.PN ---
Subjective Progress Note Date: 10/23/19 Principal diagnosis: Patient is admitted for bilateral lower extremity venous stasis ulcers which are probably infected wound cultures are showing gram-negative bacilli and patient is on cefepime and vancomycin infectious disease following the patient. Constitutional: Denied any fatigue denied any fever. Cardio vascular: denied any chest pain, palpitations Gastrointestinal denied any nausea vomiting Pulmonary: Denied any shortness of breath cough Neurologic denied any new focal deficits All inpatient medications were reviewed and appropriate changes in these medications as dictated in the interval history and assessment and plan. 10/23/2019 Patient is seen and evaluated today in follow-up and currently remains on cefepime and vancomycin as well as wound cultures are showing presumptive staph, proteus penneri, and gram-negative bacilli and awaiting to finalize. Infectious disease is following. Patient has bilateral lower extremity swelling and edema and a dose of IV Lasix will be given today and will start on 40 mg oral Lasix daily tomorrow. To continue with Zeus wraps to bilateral lower extremities to aid in swelling. Patient states that he follows with Dr. Ratliff at the wound clinic and has for almost 12 years. Currently no reports of chest pain or p alpitations. No reports of shortness of breath. Patient is afebrile. Patient denies any nausea or vomiting and has been tolerating diet. Objective - Vital Signs Vital signs: Vital Signs Temp 98.2 F 10/23/19 07:00 Pulse 63 10/23/19 11:41 Resp 16 10/23/19 07:00 BP 146/73 10/23/19 07:00 Pulse Ox 93 L 10/23/19 07:31 Intake & Output 10/22/19 10/23/19 10/23/19 18:59 06:59 18:59 Intake Total 300 Output Total 1000 Balance -1000 300 Intake: Oral 300 Output: Urine 1000 Other: Voiding Method Urinal # Voids 1 - Exam GENERAL: The patient is alert and oriented x3, not in any acute distress. Obese HEENT: Pupils are round and equally reacting to light. EOMI. No scleral icterus. No conjunctival pallor. Normocephalic, atraumatic. No pharyngeal erythema. No thyromegaly. CARDIOVASCULAR: S1 and S2 present. No murmurs, rubs, or gallops. PULMONARY: Chest is clear to auscultation, no wheezing or crackles. ABDOMEN: Soft, obese, nontender, nondistended, normoactive bowel sounds. No palpable organomegaly. MUSCULOSKELETAL: No joint swelling or deformity. EXTREMITIES: No cyanosis, clubbing, bilateral pedal edema, bilateral lower extremity swelling with mild erythema noted. Zeus wraps applied NEUROLOGICAL: Gross neurological examination did not reveal any focal deficits. SKIN: Bilateral pedal edema with extensive redness and multiple ulcers, chronic venous stasis, possible cellulitis of both extremities - Labs CBC & Chem 7: 10/22/19 07:27 10/23/19 05:30 Labs: Abnormal Lab Results - Last 24 Hours (Table) 10/22/19 10/22/19 10/23/19 Range/Units 17:02 20:21 05:30 PT 14.0 H (9.0-12.0) sec INR 1.4 H (<1.2) Sodium (137-145) mmol/L Carbon Dioxide (22-30) mmol/L BUN (9-20) mg/dL Glucose (74-99) mg/dL POC Glucose (mg/dL) 135 H 184 H (75-99) mg/dL 10/23/19 10/23/19 10/23/19 Range/Units 05:30 07:07 11:47 PT (9.0-12.0) sec INR (<1.2) Sodium 134 L (137-145) mmol/L Carbon Dioxide 20 L (22-30) mmol/L BUN 21 H (9-20) mg/dL Glucose 168 H (74-99) mg/dL POC Glucose (mg/dL) 130 H 135 H (75-99) mg/dL Microbiology - Last 24 Hours (Table) 10/20/19 18:35 Blood Culture - Preliminary Blood No Growth after 48 hours 10/20/19 18:35 Gram Stain - Preliminary Leg - Right Wound Culture - Preliminary Proteus penneri Presumptive Staph aureus Gram Neg Bacilli Assessment and Plan Assessment: -Possible infected ulcers of bilateral lower extremities. patient will be continued on IV antibiotics in the form of cefepime and vancomycin. infectious disease following. To continue local wound care. Blood cultures remain negative and wound cultures of the right leg showing proteus penneri, presumptive staph aureus, and gram negative bacilli and awaiting for culture finalization. -Supratherapeutic patient received vitamin K. Current INR is 1.4. Patient will receive 5 mg today will repeat INR in the morning -Atrial fibrillation presently rate controlled. Continue with Cardizem and Coumadin -Hypertension patient was resumed on his home medications including diuretics -Hyperlipidemia -DVT in the past with the IVC filter -Gastroesophageal reflux disease -Type 2 diabetes mellitus patient was resumed on home regimen along with sliding scale will continue to monitor blood sugars
[2019-10-23 16:54] LABS: Glucose,Whole Blood 144 mg/dL (75-99)
[2019-10-23] MEDS: WARFARIN 5 MG TAB PO SCH (17:45)
[2019-10-23 20:35] LABS: Glucose,Whole Blood 167 mg/dL (75-99)
[2019-10-23] MEDS: MONTELUKAST 10 MG TAB PO SCH (21:27)
[2019-10-24] MEDS: LEVOTHYROXINE 50 MCG TAB PO SCH (05:40)
[2019-10-24] MEDS: SODIUM CHLORIDE 0.9% 1,000 ML IV SCH ×2 (05:41→14:29)
[2019-10-24] MEDS: INSULIN ASPART (NovoLOG) 100 UNIT/ML VIAL SQ SCH ×4 (06:53→20:59)
[2019-10-24 06:55] LABS: Glucose,Whole Blood 106 mg/dL (75-99)
[2019-10-24] MEDS: ALBUTEROL NEBULIZED 2.5 MG/3 ML INHALATION PRN ×4 (07:08→20:06)
[2019-10-24 07:25] LABS: Calcium 9.1 mg/dL (8.4-10.2); Potassium 4.7 mmol/L (3.5-5.1)
[2019-10-24 07:28] LABS: INR 1.3 (<1.2); Prothrombin Time 12.6 sec (9.0-12.0)
[2019-10-24] MEDS: CEFEPIME 2 GM in SODIUM CHLORIDE 0.9% 100 ML IVPB SCH ×2 (09:09→20:59)
[2019-10-24] MEDS: VANCOMYCIN 2,000 MG in SODIUM CHLORIDE 0.9% 500 ML 500 ML IVPB SCH (09:10)
[2019-10-24] MEDS: ATORVASTATIN 10 MG TAB PO SCH (09:36)
[2019-10-24] MEDS: PANTOPRAZOLE 40 MG TABLET PO SCH (09:36)
[2019-10-24] MEDS: glipiZIDE 5 MG TAB PO SCH ×2 (09:36→20:58)
[2019-10-24] MEDS: LOSARTAN 25 MG TAB PO SCH (09:36)
[2019-10-24] MEDS: SPIRONOLACTONE 25 MG TAB PO SCH (09:36)
[2019-10-24] MEDS: FUROSEMIDE 40 MG TAB PO SCH (09:36)
[2019-10-24] MEDS: DILTIAZEM ORAL 60 MG TAB PO SCH ×3 (09:36→20:58)
[2019-10-24] MEDS: MORPHINE SULFATE 4 MG/ML SYRINGE IV PRN ×2 (10:21→21:33)
[2019-10-24 11:50] LABS: Glucose,Whole Blood 112 mg/dL (75-99)
--- NOTE | 2019-10-24 13:57 | P.PN ---
Subjective Progress Note Date: 10/24/19 Principal diagnosis: Patient is admitted for bilateral lower extremity venous stasis ulcers which are probably infected wound cultures are showing gram-negative bacilli and patient is on cefepime and vancomycin infectious disease following the patient. Constitutional: Denied any fatigue denied any fever. Cardio vascular: denied any chest pain, palpitations Gastrointestinal denied any nausea vomiting Pulmonary: Denied any shortness of breath cough Neurologic denied any new focal deficits All inpatient medications were reviewed and appropriate changes in these medications as dictated in the interval history and assessment and plan. 10/23/2019 Patient is seen and evaluated today in follow-up and currently remains on cefepime and vancomycin as well as wound cultures are showing presumptive staph, proteus penneri, and gram-negative bacilli and awaiting to finalize. Infectious disease is following. Patient has bilateral lower extremity swelling and edema and a dose of IV Lasix will be given today and will start on 40 mg oral Lasix daily tomorrow. To continue with Zeus wraps to bilateral lower extremities to aid in swelling. Patient states that he follows with Dr. Ratliff at the wound clinic and has for almost 12 years. Currently no reports of chest pain or p alpitations. No reports of shortness of breath. Patient is afebrile. Patient denies any nausea or vomiting and has been tolerating diet. 10/24/2019 Patient is seen in follow-up today and continues to wait for culture finalization. Patient remains on cefepime and vancomycin. Infectious disease is following. No acute overnight issues. Patient continues to have lower extremity bilateral extensive swelling with some redness noted. Swelling slightly improved from yesterday. Patient was placed on Lasix and will continue at this time. Current creatinine is 0.98. Will continue to monitor vital signs and labs closely. Patient is subtherapeutic on his INR at 1.3 as patient takes Coumadin. Patient states he has been up and out of the bed a little today. Encouraged to increase activity as tolerated and not lay in the bed all day. Patient also instructed to elevate lower extremities while at rest and continue with Zeus wraps to help minimize the swelling. Objective - Vital Signs Vital signs: Vital Signs Temp 97.5 F L 10/24/19 07:15 Pulse 74 10/24/19 11:00 Resp 18 10/24/19 07:15 BP 151/84 10/24/19 07:15 Pulse Ox 95 10/24/19 07:15 Intake & Output 10/23/19 10/24/19 10/24/19 18:59 06:59 18:59 Intake Total 300 600 150 Output Total 1000 1200 450 Balance -700 -600 -300 Intake: Intake, IV Titration 600 Amount Cefepime 2 gm In Sodium 100 Chloride 0.9% 100 ml @ 200 mls/hr IVPB Q12HR [facility] Rx#:[id number] Vancomycin 2,000 mg In 500 Sodium Chloride 0.9% 500 ml 500 ml @ 167 mls/hr IVPB Q12HR [facility] Rx#: [id number] Oral 300 150 Output: Urine 1000 1200 450 Other: Voiding Method Urinal # Voids 3 - Exam GENERAL: The patient is alert and oriented x3, not in any acute distress. Obese HEENT: Pupils are round and equally reacting to light. EOMI. No scleral icterus. No conjunctival pallor. Normocephalic, atraumatic. No pharyngeal erythema. No thyromegaly. CARDIOVASCULAR: S1 and S2 present. No murmurs, rubs, or gallops. PULMONARY: Chest is clear to auscultation, no wheezing or crackles. ABDOMEN: Soft, obese, nontender, nondistended, normoactive bowel sounds. No palpable organomegaly. MUSCULOSKELETAL: No joint swelling or deformity. EXTREMITIES: No cyanosis, clubbing, bilateral pedal edema, bilateral lower extremity swelling with mild erythema noted. Zeus wraps applied, swelling has decreased slightly bilateral lower extremities NEUROLOGICAL: Gross neurological examination did not reveal any focal deficits. SKIN: Bilateral pedal edema with extensive redness and multiple ulcers, chronic venous stasis, possible cellulitis of both extremities - Labs CBC & Chem 7: 10/22/19 07:27 10/24/19 06:10 Labs: Abnormal Lab Results - Last 24 Hours (Table) 10/23/19 10/23/19 10/23/19 Range/Units 11:47 16:53 20:34 PT (9.0-12.0) sec INR (<1.2) Sodium (137-145) mmol/L BUN (9-20) mg/dL Glucose (74-99) mg/dL POC Glucose (mg/dL) 135 H 144 H 167 H (75-99) mg/dL 02/28/20 02/28/20 02/28/20 Range/Units 06:10 06:10 06:53 PT 12.6 H (9.0-12.0) sec INR 1.3 H (<1.2) Sodium 135 L (137-145) mmol/L BUN 23 H (9-20) mg/dL Glucose 106 H (74-99) mg/dL POC Glucose (mg/dL) 106 H (75-99) mg/dL Microbiology - Last 24 Hours (Table) 10/20/19 18:35 Blood Culture - Preliminary Blood No Growth after 72 hours 10/20/19 18:35 Gram Stain - Preliminary Leg - Left Wound Culture - Preliminary Presumptive Staph aureus 10/20/19 18:35 Gram Stain - Preliminary Leg - Right Wound Culture - Preliminary Proteus penneri Staphylococcus aureus Gram Neg Bacilli Assessment and Plan Assessment: -Possible infected ulcers of bilateral lower extremities. patient will be continued on IV antibiotics in the form of cefepime and vancomycin. infectious disease following. To continue local wound care. Blood cultures remain negative and wound cultures of the right leg showing proteus penneri, presumptive staph aureus, and gram negative bacilli and awaiting for culture finalization. -Supratherapeutic patient received vitamin K. Current INR is 1.4. Patient will receive 5 mg today will repeat INR in the morning. Patient continues to be subtherapeutic with an INR of 1.3 today. -Atrial fibrillation presently rate controlled. Continue with Cardizem and Coumadin -Hypertension patient was resumed on his home medications including diuretics -Hyperlipidemia -DVT in the past with the IVC filter -Gastroesophageal reflux disease -Type 2 diabetes mellitus patient was resumed on home regimen along with sliding scale will continue to monitor blood sugars
--- NOTE | 2019-10-24 16:00 | PN ---
PROGRESS NOTE DATE OF SERVICE: 10/24/2019 REASON FOR FOLLOWUP: Bilateral lower extremity wounds and cellulitis. INTERVAL HISTORY: The patient is currently afebrile, has been breathing comfortably. Denies having any chest pain or cough. No pain to the legs. No nausea, no vomiting, no abdominal pain or diarrhea. PHYSICAL EXAMINATION: Blood pressure is 119/64 with a pulse of 77, temperature 98.1. He is 95% on room air. General description is an elderly male lying in bed in no distress. RESPIRATORY SYSTEM: Unlabored breathing. Clear to auscultation anteriorly. HEART: S1, S2. Regular rate and rhythm. ABDOMEN: Soft. No tenderness. Left leg redness has improved. The wounds still have some slough tissue, though. LAB: INR is 1.3, BUN of 23, creatinine 0.98. DIAGNOSTIC IMPRESSION AND PLAN: Patient with bilateral lower extremity venostasis ulcers with secondary cellulitis in this patient whose wound culture has been a proteus, methicillin-resistant Staphylococcus aeruginosa. Patient is currently covered with cefepime. We are planning to finish therapy with oral Keflex and Cipro. Local wound care to the left leg wound with Medihoney followed by moist dressing; cover with Zeus wrap to keep the swelling down. Continue with supportive care. MMODL / IJN: [id number] /
[2019-10-24 17:12] LABS: Glucose,Whole Blood 148 mg/dL (75-99)
--- NOTE | 2019-10-24 17:33 | CONS ---
DATE OF CONSULTATION: 10/24/2019 Patient is well known to me from the wound center. We have been following this gentleman for conservative management in the wound center. The patient has a long- standing history of venous hypertension and chronic DVT of both lower extremities. We have been treating this with compression wraps. The patient was seen in the wound clinic and found to have marked swelling of both extremities with some cellulitis noted. We have admitted the patient for local wound care, and the patient has been seen by Infectious Disease for antibiotic. MEDICAL HISTORY: History of COPD, history of diabetes mellitus, history of deep vein thrombosis of both lower extremities, history of hypertension. PHYSICAL EXAMINATION: NECK: Supple. CHEST: Clear. ABDOMEN: Soft. Femorals are 1+. The patient has bilateral venostasis of the lower extremities with cellulitis with some swelling. The patient is on IV antibiotic and local wound care. We will follow with you. If the patient is discharged, we will follow him in the wound clinic. GILBERTL / MEERAN: [id number] / MARY JO
[2019-10-24] MEDS ORDERED: WARFARIN 7.5 MG TAB PO ONE (18:00)
[2019-10-24 20:46] LABS: Glucose,Whole Blood 135 mg/dL (75-99)
[2019-10-24] MEDS: MONTELUKAST 10 MG TAB PO SCH (20:58)
[2019-10-25] MEDS: LEVOTHYROXINE 50 MCG TAB PO SCH (05:25)
[2019-10-25 06:33] LABS: INR 1.3 (<1.2); Prothrombin Time 12.6 sec (9.0-12.0)
[2019-10-25 06:42] LABS: Calcium 9.6 mg/dL (8.4-10.2); Potassium 4.6 mmol/L (3.5-5.1)
[2019-10-25 06:58] LABS: Glucose,Whole Blood 141 mg/dL (75-99)
[2019-10-25] MEDS: INSULIN ASPART (NovoLOG) 100 UNIT/ML VIAL SQ SCH ×4 (07:18→20:30)
[2019-10-25] MEDS: MORPHINE SULFATE 4 MG/ML SYRINGE IV PRN ×3 (07:23→23:31)
[2019-10-25] MEDS: ALBUTEROL NEBULIZED 2.5 MG/3 ML INHALATION PRN ×4 (08:49→19:46)
[2019-10-25] MEDS: SPIRONOLACTONE 25 MG TAB PO SCH (09:08)
[2019-10-25] MEDS: LOSARTAN 25 MG TAB PO SCH (09:08)
[2019-10-25] MEDS: PANTOPRAZOLE 40 MG TABLET PO SCH (09:08)
[2019-10-25] MEDS: FUROSEMIDE 40 MG TAB PO SCH (09:09)
[2019-10-25] MEDS: glipiZIDE 5 MG TAB PO SCH ×2 (09:09→20:30)
[2019-10-25] MEDS: ATORVASTATIN 10 MG TAB PO SCH (09:09)
[2019-10-25] MEDS: DILTIAZEM ORAL 60 MG TAB PO SCH ×3 (09:10→20:30)
[2019-10-25] MEDS: CEFEPIME 2 GM in SODIUM CHLORIDE 0.9% 100 ML IVPB SCH ×2 (09:10→20:29)
[2019-10-25 11:31] LABS: Glucose,Whole Blood 137 mg/dL (75-99)
--- NOTE | 2019-10-25 11:54 | P.DS ---
Providers Date of admission: 10/22/19 08:00 Attending physician: Johnny Lieberman Consults: 10/20/19 20:28 Consult Physician Stat Consulting Provider: Ishan Ratliff Consult Reason/Comments: non healing wound Do you want consulting provider notified?: Yes 10/21/19 11:15 Consult Physician Stat Consulting Provider: Charisma Silva Consult Reason/Comments: BLE Cellulitis Do you want consulting provider notified?: Yes Primary care physician: Tatyana Mora [facility] Course: Patient is admitted for bilateral lower extremity venous stasis ulcers which are probably infected wound cultures are showing gram-negative bacilli and patient is on cefepime and vancomycin infectious disease following the patient. All inpatient medications were reviewed and appropriate changes in these medications as dictated in the interval history and assessment and plan. 10/23/2019 Patient is seen and evaluated today in follow-up and currently remains on cefepime and vancomycin as well as wound cultures are showing presumptive staph, proteus penneri, and gram-negative bacilli and awaiting to finalize. Infectious disease is following. Patient has bilateral lower extremity swelling and edema and a dose of IV Lasix will be given today and will start on 40 mg oral Lasix daily tomorrow. To continue with Zeus wraps to bilateral lower extremities to aid in swelling. Patient states that he follows with Dr. Ratliff at the wound clinic and has for almost 12 years. Currently no reports of chest pain or palpitations. No reports of shortness of breath. Patient is afebrile. Patient denies any nausea or vomiting and has been tolerating diet. 10/24/2019 Patient is seen in follow-up today and continues to wait for culture finalization. Patient remains on cefepime and vancomycin. Infectious disease is following. No acute overnight issues. Patient continues to have lower extremity bilateral extensive swelling with some redness noted. Swelling slightly improved from yesterday. Patient was placed on Lasix and will continue at this time. Current creatinine is 0.98. Will continue to monitor vital signs and labs closely. Patient is subtherapeutic on his INR at 1.3 as patient takes Coumadin. Patient states he has been up and out of the bed a little today. Encouraged to increase activity as tolerated and not lay in the bed all day. Patient also instructed to elevate lower extremities while at rest and continue with Zeus wraps to help minimize the swelling. 10/25/2019 Patient's wound cultures are polymicrobial including gram-negative bacilli, Proteus, staph aureus MSSA patient will be discharged on Keflex and Cipro as recommended by infectious disease patient will need local wound care patient will follow with infectious disease and PCP as an outpatient. Exam GENERAL: The patient is alert and oriented x3, not in any acute distress. Obese HEENT: Pupils are round and equally reacting to light. EOMI. No scleral icterus. No conjunctival pallor. Normocephalic, atraumatic. No pharyngeal erythema. No thyromegaly. CARDIOVASCULAR: S1 and S2 present. No murmurs, rubs, or gallops. PULMONARY: Chest is clear to auscultation, no wheezing or crackles. ABDOMEN: Soft, obese, nontender, nondistended, normoactive bowel sounds. No palpable organomegaly. MUSCULOSKELETAL: No joint swelling or deformity. EXTREMITIES: No cyanosis, clubbing, bilateral pedal edema, bilateral lower extremity swelling with mild erythema noted. Zeus wraps applied, swelling has decreased slightly bilateral lower extremities NEUROLOGICAL: Gross neurological examination did not reveal any focal deficits. SKIN: Bilateral pedal edema with extensive redness and multiple ulcers, chronic venous stasis, possible cellulitis of both extremities Assessment and Plan Assessment: -Possible infected ulcers of bilateral lower extremities. . Blood cultures remain negative and wound cultures of the right leg showing proteus penneri, presumptive staph aureus,patient will be discharged on Cipro and Keflex -Supratherapeutic patient received vitamin K. Current INR is 1.4. patient is still subtherapeutic but expected toimproved patient came in her symptoms that he cannot of around 5 and now patient is going on antibiotics which also include ciprofloxacin because of which I'm cutting down the Coumadin to 5 mg daily. Patient will get his INR checked in 3 days -Atrial fibrillation presently rate controlled. Continue with Cardizem and Coumadin -Hypertension patient was resumed on his home medications including diuretics -Hyperlipidemia -DVT in the past with the IVC filter -Gastroesophageal reflux disease -Type 2 diabetes mellitus patient was resumed on home regimen along with sliding scale will continue to monitor blood sugars Patient Condition at Discharge: Stable Plan - Discharge Summary Discharge Rx Participant: Yes New Discharge Prescriptions: New Furosemide [Lasix] 40 mg PO DAILY #30 tab Ciprofloxacin HCl [Cipro] 500 mg PO Q12H 10 Days #20 tab Cephalexin [Keflex] 500 mg PO Q6HR 3 Days #40 cap Continue Omeprazole [PriLOSEC] 20 mg PO DAILY Albuterol Inhaler [Ventolin Hfa Inhaler] 2 puff INHALATION RT-Q4H PRN PRN Reason: Shortness Of Breath Atorvastatin [Lipitor] 10 mg PO DAILY Diltiazem HCl 120 mg PO TID glipiZIDE XL [Glucotrol XL] 10 mg PO DAILY Spironolactone 50 mg PO DAILY Levothyroxine Sodium [Synthroid] 200 mcg PO DAILY HYDROcodone/APAP 5-325MG [[place] 5-325] 1 tab PO BID PRN PRN Reason: Pain Montelukast Sodium [Singulair] 10 mg PO HS Losartan [Cozaar] 50 mg PO DAILY Warfarin Sodium [Coumadin] 7.5 mg PO HS Discontinued Triamterene/Hydrochlorothiazid [Triamterene-Hctz 37.5-25 mg Tb] 1 tab PO DAILY Discharge Medication List Albuterol Inhaler [Ventolin Hfa Inhaler] 2 puff INHALATION RT-Q4H PRN 12/29/13 [History] Omeprazole [PriLOSEC] 20 mg PO DAILY 12/29/13 [History] Atorvastatin [Lipitor] 10 mg PO DAILY 10/04/17 [History] Diltiazem HCl 120 mg PO TID 11/21/18 [History] HYDROcodone/APAP 5-325MG [[place] 5-325] 1 tab PO BID PRN 10/20/19 [History] Levothyroxine Sodium [Synthroid] 200 mcg PO DAILY 10/20/19 [History] Losartan [Cozaar] 50 mg PO DAILY 10/20/19 [History] Montelukast Sodium [Singulair] 10 mg PO HS 10/20/19 [History] Spironolactone 50 mg PO DAILY 10/20/19 [History] Warfarin Sodium [Coumadin] 7.5 mg PO HS 10/20/19 [History] glipiZIDE XL [Glucotrol XL] 10 mg PO DAILY 10/20/19 [History] Cephalexin [Keflex] 500 mg PO Q6HR 3 Days #40 cap 10/25/19 [Rx] Ciprofloxacin HCl [Cipro] 500 mg PO Q12H 10 Days #20 tab 10/25/19 [Rx] Furosemide [Lasix] 40 mg PO DAILY #30 tab 10/25/19 [Rx] Follow up Appointment(s)/Referral(s): Tatyana Mora MD [Primary Care Provider] - 3 Days Charisma Silva MD [STAFF PHYSICIAN] - 1 Week Activity/Diet/Wound Care/Special Instructions: Please use medication as discussed. Please follow up with family doctor if symptoms have not improved over the next two days. Please return to the emergency room if your symptoms increase or worsen or for any other concerns.
--- NOTE | 2019-10-25 15:40 | PN ---
PROGRESS NOTE DATE OF SERVICE: 10/25/2019 REASON FOR FOLLOWUP: Bilateral lower extremity venous stasis ulcer and cellulitis. INTERVAL HISTORY: The patient is currently afebrile, has been breathing comfortably. Denies having any chest pain or any cough. No nausea, no vomiting. No abdominal pain. Still has significant swelling in the legs, though the redness has improved. PHYSICAL EXAMINATION: Blood pressure 144/60 with a pulse of 66, temperature 98.2. He is 94% on room air. General description is an elderly male up in the chair in no distress. RESPIRATORY SYSTEM: Unlabored breathing, clear to auscultation anteriorly. HEART: S1, S2. Regular rate and rhythm. ABDOMEN: Soft, no tenderness. Legs are current wrapped up. No drainage on the dressing. LABS: Creatinine 0.98. DIAGNOSTIC IMPRESSION AND PLAN: Patient with bilateral lower extremity venous stasis ulcer with secondary cellulitis. Culture with MSSA and Proteus. Patient currently on cefepime with plan for finishing therapy with oral Cipro and Keflex for 10 days. Local care to continue as ordered. Will monitor clinical course closely. MMODL / IJN: [id number] /
[2019-10-25 17:26] LABS: Glucose,Whole Blood 144 mg/dL (75-99)
[2019-10-25] MEDS ORDERED: WARFARIN 7.5 MG TAB PO ONE (18:00)
[2019-10-25 20:11] LABS: Glucose,Whole Blood 186 mg/dL (75-99)
[2019-10-25] MEDS: MONTELUKAST 10 MG TAB PO SCH (20:30)
[2019-10-26 01:48] VITALS: TEMP 98.1
[2019-10-26] MEDS: HYDROmorphone 0.5 MG/0.5 ML SYRINGE IVP PRN (03:45)
[2019-10-26] MEDS: LEVOTHYROXINE 50 MCG TAB PO SCH (05:59)
[2019-10-26 06:17] LABS: INR 1.4 (<1.2); Prothrombin Time 13.6 sec (9.0-12.0)
[2019-10-26 06:30] LABS: Calcium 9.8 mg/dL (8.4-10.2); Potassium 4.6 mmol/L (3.5-5.1)
[2019-10-26] MEDS: ALBUTEROL NEBULIZED 2.5 MG/3 ML INHALATION PRN ×2 (07:09→11:13)
[2019-10-26 07:23] LABS: Glucose,Whole Blood 154 mg/dL (75-99)
[2019-10-26] MEDS: INSULIN ASPART (NovoLOG) 100 UNIT/ML VIAL SQ SCH ×2 (07:38→11:35)
[2019-10-26] MEDS: FUROSEMIDE 40 MG TAB PO SCH (07:53)
[2019-10-26] MEDS: glipiZIDE 5 MG TAB PO SCH (07:53)
[2019-10-26] MEDS: ATORVASTATIN 10 MG TAB PO SCH (07:53)
[2019-10-26] MEDS: LOSARTAN 25 MG TAB PO SCH (07:53)
[2019-10-26] MEDS: SPIRONOLACTONE 25 MG TAB PO SCH (07:53)
[2019-10-26] MEDS: PANTOPRAZOLE 40 MG TABLET PO SCH (07:53)
[2019-10-26 07:54] VITALS: BP 134/62; RESP 17
[2019-10-26] MEDS: DILTIAZEM ORAL 60 MG TAB PO SCH ×2 (07:54→15:15)
[2019-10-26] MEDS: CEFEPIME 2 GM in SODIUM CHLORIDE 0.9% 100 ML IVPB SCH (08:00)
[2019-10-26] MEDS ORDERED: KETOROLAC 30 MG/ML 1 ML VIAL IM STA (09:22)
--- NOTE | 2019-10-26 10:30 | P.DS ---
Providers Date of admission: 10/22/19 08:00 Attending physician: Johnny Lieberman Consults: 10/20/19 20:28 Consult Physician Stat Consulting Provider: Ishan Ratliff Consult Reason/Comments: non healing wound Do you want consulting provider notified?: Yes 10/21/19 11:15 Consult Physician Stat Consulting Provider: Charisma Silva Consult Reason/Comments: BLE Cellulitis Do you want consulting provider notified?: Yes [facility] Course: Patient is admitted for bilateral lower extremity venous stasis ulcers which are probably infected wound cultures are showing gram-negative bacilli and patient is on cefepime and vancomycin infectious disease following the patient. 10/23/2019 Patient is seen and evaluated today in follow-up and currently remains on cefepime and vancomycin as well as wound cultures are showing presumptive staph, proteus penneri, and gram-negative bacilli and awaiting to finalize. Infectious disease is following. Patient has bilateral lower extremity swelling and edema and a dose of IV Lasix will be given today and will start on 40 mg oral Lasix daily tomorrow. To continue with Zeus wraps to bilateral lower extremities to aid in swelling. Patient states that he follows with Dr. Ratliff at the wound clinic and has for almost 12 years. Currently no reports of chest pain or palpitations. No reports of shortness of breath. Patient is afebrile. Patient denies any nausea or vomiting and has been tolerating diet. 10/24/2019 Patient is seen in follow-up today and continues to wait for culture finalization. Patient remains on cefepime and vancomycin. Infectious disease is following. No acute overnight issues. Patient continues to have lower extremity bilateral extensive swelling with some redness noted. Swelling slightly improved from yesterday. Patient was placed on Lasix and will continue at this time. Current creatinine is 0.98. Will continue to monitor vital signs and labs closely. Patient is subtherapeutic on his INR at 1.3 as patient takes Coumadin. Patient states he has been up and out of the bed a little today. Encouraged to increase activity as tolerated and not lay in the bed all day. Patient also instructed to elevate lower extremities while at rest and continue with Zeus wraps to help minimize the swelling. 10/25/2019 Patient's wound cultures are polymicrobial including gram-negative bacilli, P roteus, staph aureus MSSA patient will be discharged on Keflex and Cipro as recommended by infectious disease patient will need local wound care patient will follow with infectious disease and PCP as an outpatient. 10/26/2019 Patient is feeling much better stronger to go home today patient will be discharged today only change in his medications will be Lasix 20 mg as opposed to 40 mg as his creatinine started going up patient related be basic metabolic profile in 3 days Exam GENERAL: The patient is alert and oriented x3, not in any acute distress. Obese HEENT: Pupils are round and equally reacting to light. EOMI. No scleral icterus. No conjunctival pallor. Normocephalic, atraumatic. No pharyngeal erythema. No thyromegaly. CARDIOVASCULAR: S1 and S2 present. No murmurs, rubs, or gallops. PULMONARY: Chest is clear to auscultation, no wheezing or crackles. ABDOMEN: Soft, obese, nontender, nondistended, normoactive bowel sounds. No palpable organomegaly. MUSCULOSKELETAL: No joint swelling or deformity. EXTREMITIES: No cyanosis, clubbing, bilateral pedal edema, bilateral lower extremity swelling with mild erythema noted. Zeus wraps applied, swelling has d ecreased slightly bilateral lower extremities NEUROLOGICAL: Gross neurological examination did not reveal any focal deficits. SKIN: Bilateral pedal edema with extensive redness and multiple ulcers, chronic venous stasis, possible cellulitis of both extremities Assessment and Plan Assessment: -Possible infected ulcers of bilateral lower extremities. . Blood cultures remain negative and wound cultures of the right leg showing proteus penneri, presumptive staph aureus,patient will be discharged on Cipro and Keflex -Supratherapeutic patient received vitamin K. Current INR is 1.4. patient is still subtherapeutic but expected toimproved patient came in her symptoms that he cannot of around 5 and now patient is going on antibiotics which also include ciprofloxacin because of which I'm cutting down the Coumadin to 5 mg daily. Patient will get his INR checked in 3 days -Atrial fibrillation presently rate controlled. Continue with Cardizem and Coum terri -Hypertension patient was resumed on his home medications including diuretics -Hyperlipidemia -DVT in the past with the IVC filter -Gastroesophageal reflux disease -Type 2 diabetes mellitus patient was resumed on home regimen along with sliding scale will continue to monitor blood sugars Patient Condition at Discharge: Stable Plan - Discharge Summary Discharge Rx Participant: Yes New Discharge Prescriptions: New Ciprofloxacin HCl [Cipro] 500 mg PO Q12H 10 Days #20 tab Cephalexin [Keflex] 500 mg PO Q6HR 3 Days #40 cap Warfarin [Coumadin] 5 mg PO ONCE@1800 #30 tab Furosemide [Lasix] 20 mg PO DAILY #30 tab Continue Omeprazole [PriLOSEC] 20 mg PO DAILY Albuterol Inhaler [Ventolin Hfa Inhaler] 2 puff INHALATION RT-Q4H PRN PRN Reason: Shortness Of Breath Atorvastatin [Lipitor] 10 mg PO DAILY Diltiazem HCl 120 mg PO TID glipiZIDE XL [Glucotrol XL] 10 mg PO DAILY Spironolactone 50 mg PO DAILY Levothyroxine Sodium [Synthroid] 200 mcg PO DAILY HYDROcodone/APAP 5-325MG [[place] 5-325] 1 tab PO BID PRN PRN Reason: Pain Montelukast Sodium [Singulair] 10 mg PO HS Losartan [Cozaar] 50 mg PO DAILY Discontinued Triamterene/Hydrochlorothiazid [Triamterene-Hctz 37.5-25 mg Tb] 1 tab PO DAILY Warfarin Sodium [Coumadin] 7.5 mg PO HS Discharge Medication List Albuterol Inhaler [Ventolin Hfa Inhaler] 2 puff INHALATION RT-Q4H PRN 12/29/13 [History] Omeprazole [PriLOSEC] 20 mg PO DAILY 12/29/13 [History] Atorvastatin [Lipitor] 10 mg PO DAILY 10/04/17 [History] Diltiazem HCl 120 mg PO TID 11/21/18 [History] HYDROcodone/APAP 5-325MG [[place] 5-325] 1 tab PO BID PRN 10/20/19 [History] Levothyroxine Sodium [Synthroid] 200 mcg PO DAILY 10/20/19 [History] Losartan [Cozaar] 50 mg PO DAILY 10/20/19 [History] Montelukast Sodium [Singulair] 10 mg PO HS 10/20/19 [History] Spironolactone 50 mg PO DAILY 10/20/19 [History] glipiZIDE XL [Glucotrol XL] 10 mg PO DAILY 10/20/19 [History] Cephalexin [Keflex] 500 mg PO Q6HR 3 Days #40 cap 10/25/19 [Rx] Ciprofloxacin HCl [Cipro] 500 mg PO Q12H 10 Days #20 tab 10/25/19 [Rx] Warfarin [Coumadin] 5 mg PO ONCE@1800 #30 tab 10/25/19 [Rx] Furosemide [Lasix] 20 mg PO DAILY #30 tab 10/26/19 [Rx] Follow up Appointment(s)/Referral(s): Tatyana Mora MD [Primary Care Provider] - 3 Days (Office closed at time of discharge please call SundayOctober 26 to set up a follow up appointment) Charisma Silva MD [STAFF PHYSICIAN] - 1 Week (Office closed at time of discharge please call SundayOctober 26 to set up a follow up appointment) Ambulatory/Diagnostic Orders: Prothrombin Time INR [LAB.AMB] Time Frame: 3 Days, Location: None Selected Activity/Diet/Wound Care/Special Instructions: Please use medication as discussed. Please follow up with family doctor if sympt oms have not improved over the next two days. Please return to the emergency room if your symptoms increase or worsen or for any other concerns. Discharge Disposition: HOME WITH HOME HEALTH SERVICES
[2019-10-26 11:12] LABS: Glucose,Whole Blood 165 mg/dL (75-99)
[2019-10-26 11:23] VITALS: PULSE 70
[2019-10-26] MEDS ORDERED: KETOROLAC 30 MG/ML 1 ML VIAL IVP ONE (14:30)
--- NOTE | 2019-10-26 16:43 | PN ---
PROGRESS NOTE DATE OF SERVICE: 10/26/2019. REASON FOR FOLLOWUP: Bilateral lower extremity venous stasis ulcer and cellulitis. INTERVAL HISTORY: The patient is currently afebrile, has been breathing comfortably, denies any chest pain, or any cough. No nausea, vomiting or abdominal pain, or any worsening pain to the leg wound. PHYSICAL EXAMINATION: Blood pressure 134/62 with a pulse of 82, temperature 98.1. He is 95% on room air. General description is an elderly male up in the chair in no distress. Respiratory system: Unlabored breathing. Clear to auscultation anteriorly. Heart S1, S2 regular rate and rhythm. ABDOMEN: Soft, no tenderness. Legs are currently wrapped up. No obvious drainage on the dressing. LABS: Creatinine is 1.16. INR 1.4. DIAGNOSTIC IMPRESSION AND PLAN: Patient with bilateral lower extremity venous stasis ulcer with cellulitis, left lower extremity. The patient is currently covered with cefepime with plan to finish therapy with oral Cipro and Keflex, careful monitoring of his INR while on antibiotics. Local care to continue as ordered. To [facility] with next week and continue supportive care. MMODL / IJN: [id number] /
[2019-10-26] MEDS ORDERED: WARFARIN 7.5 MG TAB PO ONE (18:00)
--- NOTE | 2019-10-29 09:16 | CDI ---
Documentation Clarification Form Date: 10/29/2019 09:00:12 AM From: Chrystal Daigle Phone: If you have a question about this query, please contact Marilyn Erazo, Revenue Coordinator at [phone] between 8am and 5pm. Admit Date: 10/22/2019 08:00:00 AM Patient Name: Antony De La Cruz Visit Number: [id number] Discharge Date: 10/26/2019 03:53:00 PM ATTENTION: The Clinical Documentation Specialists (CDI) and [facility] Coding Staff appreciate your assistance in clarifying documentation. Please respond to the clarification below the line at the bottom and electronically sign. The CDI & [facility] Coding staff will review the response and follow-up if needed. Please note: Queries are made part of the Legal Health Record. If you have any questions, please contact the author of this message via ITS. Dr. Jaqui Herndon Per ER notes your patient has the documented diagnosis of diabetic wounds bilateral lower extremity. This cause and effect relationship is not carried through the chart. Please clarify if patient's bilateral infected skin ulcers and cellulitis has underlying cause of diabetes. A relationship between diagnoses cannot be assumed unless documented as such by the attending physician. In order to capture the severity of condition; please document the relationship, if any, between these diagnoses. History/Risk Factors: non healing stasis skin ulcers isai legs and cellulitis. Patient with DM type II neuropathy Treatment: Cefepime, Cipro, Keflex Patient on sliding insulin scale for type II DM Please clarify: DM Type II is Underlying cause of bilateral non healing stasis ulcers DM Type II not an underlying cause of non stasis healing ulcers Other explanation of clinical findings (please specify) Unable to determine (no explanation for clinical findings) Unable to determine MTDD
== END 2019-10-26 15:53 | disposition home or self-care (01) | DRG 300 ==
LOC: EC 17:32 → 4SSUR 20:51 → OBSVTOIN 10-22 08:00
PROVIDERS: ADMIT Hospitalist; ATTEND Hospitalist
DX: I83.012 Varicose veins of right lower extremity with ulcer of calf (principal); Z68.41 Body mass index [BMI] 40.0-44.9, adult; L03.115 Cellulitis of right lower limb; L03.116 Cellulitis of left lower limb; L97.811 Non-pressure chronic ulcer of other part of right lower leg limited to breakdown of skin; L97.812 Non-pressure chronic ulcer of other part of right lower leg with fat layer exposed; I87.8 Other specified disorders of veins; E66.01 Morbid (severe) obesity due to excess calories; E78.5 Hyperlipidemia, unspecified; I10 Essential (primary) hypertension; I48.91 Unspecified atrial fibrillation; J44.9 Chronic obstructive pulmonary disease, unspecified; K21.9 Gastro-esophageal reflux disease without esophagitis; B95.61 Methicillin susceptible Staphylococcus aureus infection as the cause of diseases classified elsewhere; B96.4 Proteus (mirabilis) (morganii) as the cause of diseases classified elsewhere; T45.515A Adverse effect of anticoagulants, initial encounter; Z79.01 Long term (current) use of anticoagulants; Z79.51 Long term (current) use of inhaled steroids; Z79.84 Long term (current) use of oral hypoglycemic drugs; Z79.890 Hormone replacement therapy; E03.9 Hypothyroidism, unspecified; Z79.899 Other long term (current) drug therapy; Z82.49 Family history of ischemic heart disease and other diseases of the circulatory system; Z85.828 Personal history of other malignant neoplasm of skin; Z86.718 Personal history of other venous thrombosis and embolism; Z87.891 Personal history of nicotine dependence; Z95.828 Presence of other vascular implants and grafts; Z82.61 Family history of arthritis; Z88.5 Allergy status to narcotic agent; Z88.8 Allergy status to other drugs, medicaments and biological substances; Z91.040 Latex allergy status; Z91.013 Allergy to seafood; E11.40 Type 2 diabetes mellitus with diabetic neuropathy, unspecified; Z87.01 Personal history of pneumonia (recurrent); Z90.49 Acquired absence of other specified parts of digestive tract; R79.1 Abnormal coagulation profile; I83.022 Varicose veins of left lower extremity with ulcer of calf
CPT/HCPCS: 36415; 71046; 80048; 80053; 80202; 81003; 83605; 83880; 84484; 85025; 85027; 85610; 85730; 87040; 87070; 87077; 87186; 87205; 93005; 94640; 94760; 96365; 96366; 96367; 96375; 99285

== ENCOUNTER → 2019-12-15 | Outpatient (CLI) | payer MEDICARE, BC ==
[2019-12-15 15:42] LABS: African American GFR (CKD) 77.3 (60.0-200.0); Albumin 3.7 g/dL (3.80-4.90); Albumin/Globulin Ratio 1.32 (1.60-3.17); Anion Gap 11.5 mmol/L (4.00-12.00); BUN/Creat Ratio 21.82 Ratio (12.00-20.00); Calcium 8.9 mg/dL (8.7-10.3); Carbon Dioxide 27.5 mmol/L (21.6-31.8); Globulin 2.8 g/dL (1.6-3.3); Magnesium 1.6 mg/dL (1.5-2.4); Non-African American GFR(CKD) 66.7 (60.0-200.0); Potassium 4.6 mmol/L (3.5-5.5); Total Bilirubin 0.3 mg/dL (0.2-1.2); Total Protein 6.5 g/dL (6.2-8.2)
== END | disposition home or self-care (01) ==
LOC: LABWHC1 11:40
PROVIDERS: ATTEND Family Medicine
DX: R25.2 Cramp and spasm (principal); R60.9 Edema, unspecified
CPT/HCPCS: 36415; 80053; 83735

== ENCOUNTER 2020-01-06 16:45 | Inpatient (IN) | payer MEDICARE, BC ==
[2020-01-06] MEDS ORDERED: HYDROmorphone 0.5 MG/0.5 ML SYRINGE IVP STA (17:20)
[2020-01-06] MEDS ORDERED: ONDANSETRON 4 MG/2 ML VIAL IVP STA (17:20)
--- NOTE | 2020-01-06 17:36 | ED ---
Skin/Abscess/FB HPI - General Source: patient, RN notes reviewed Mode of arrival: wheelchair Limitations: no limitations <Pernell Cosby - Last Filed: 01/06/20 18:17> <Kamlesh Milner - Last Filed: 01/06/20 19:00> - General Chief complaint: Skin/Abscess/Foreign Body Stated complaint: Cellulitis Time Seen by Provider: 01/06/20 17:09 - History of Present Illness Initial comments: 74-year-old male presents emergency Department chief complaint of worsening right leg cellulitis. Patient states is chronic wound of his lower extremity and sees wound center weekly. Patient states that he was advised by Dr. Ratliff to go to emergency room yesterday for admission. Patient states he felt that he could wait and came today. He states that he's had worsening drainage to the point where he is using diapers on his legs. Patient states that increased redness and discomfort. Patient denies any trauma. Patient had no recent fevers or chills. (Pernell Cosby) - Related Data Home Medications Medication Instructions Recorded Confirmed Albuterol Inhaler (Mhu) [Ventolin 2 puff INHALATION RT-Q4H PRN 12/29/13 10/20/19 Hfa Inhaler (Mhu)] Omeprazole [PriLOSEC] 20 mg PO DAILY 12/29/13 10/20/19 Atorvastatin [Lipitor] 10 mg PO DAILY 10/04/17 10/20/19 Diltiazem HCl 120 mg PO TID 11/21/18 10/20/19 HYDROcodone/APAP 5-325MG [[place] 1 tab PO BID PRN 10/20/19 10/20/19 5-325] Levothyroxine Sodium [Synthroid] 200 mcg PO DAILY 10/20/19 10/20/19 Losartan [Cozaar] 50 mg PO DAILY 10/20/19 10/20/19 Montelukast Sodium [Singulair] 10 mg PO HS 10/20/19 10/20/19 Spironolactone 50 mg PO DAILY 10/20/19 10/20/19 glipiZIDE XL [Glucotrol XL] 10 mg PO DAILY 10/20/19 10/20/19 Previous Rx's Medication Instructions Recorded Cephalexin [Keflex] 500 mg PO Q6HR 3 Days #40 cap 10/25/19 Ciprofloxacin HCl [Cipro] 500 mg PO Q12H 10 Days #20 tab 10/25/19 Warfarin [Coumadin] 5 mg PO ONCE@1800 #30 tab 10/25/19 Furosemide [Lasix] 20 mg PO DAILY #30 tab 10/26/19 Allergies Allergy/AdvReac Type Severity Reaction Status Date / Time iodine Allergy Anaphylaxis Verified 01/06/20 17:02 latex Allergy Unknown Verified 01/06/20 17:02 lisinopril Allergy Cough Verified 01/06/20 17:02 shellfish derived Allergy Anaphylaxis Verified 01/06/20 17:02 codeine AdvReac Rapid Verified 01/06/20 17:02 Heart Rate Review of Systems ROS Other: All systems not noted in ROS Statement are negative. <Pernell Cosby - Last Filed: 01/06/20 18:17> ROS Other: All systems not noted in ROS Statement are negative. <Kamlesh Milner - Last Filed: 01/06/20 19:00> ROS Statement: Those systems with pertinent positive or pertinent negative responses have been documented in the HPI. Past Medical History Past Medical History: Asthma, Blood Disorder, Cancer, Diabetes Mellitus, Deep Vein Thrombosis (DVT), Hypertension, Pneumonia, Thyroid Disorder Additional Past Medical History / Comment(s): occular migraines, seasonal allergies, SOB with activity, hx cellulitis, neuropathy, clotting disorder- Factor V- Leiden, basal cell skin ca(folicular) , received shingles vaccine and hepatits a vaccine, hypothyrodism, Type 2 diabetes, medication controlled History of Any Multi-Drug Resistant Organisms: MRSA Date of last positivie culture/infection: 2012 MDRO Source:: bilateral legs Past Surgical History: Cholecystectomy, Hernia Repair, Tonsillectomy Additional Past Surgical History / Comment(s): colonoscopy, basal cell carcinoma from scalp, nasal/sinus, meet filter.pilonsial cyst removed, rt index finger sx- removed calcium deposit, umbilical hernia Past Anesthesia/Blood Transfusion Reactions: No Reported Reaction Past Psychological History: No Psychological Hx Reported Smoking Status: Former smoker Past Alcohol Use History: Rare Past Drug Use History: None Reported - Past Family History Mother Family Medical History: Coronary Artery Disease (CAD), Rheumatoid Arthritis (RA) Additional Family Medical History / Comment(s): age 70 heart problems- RA. Father Family Medical History: No Reported History Additional Family Medical History / Comment(s): age 72 <Pernell Cosby - Last Filed: 01/06/20 18:17> General Exam Limitations: no limitations General appearance: alert, in no apparent distress Head exam: Present: atraumatic, normocephalic, normal inspection Eye exam: Present: normal appearance, PERRL, EOMI. Absent: scleral icterus, conjunctival injection, periorbital swelling Respiratory exam: Present: normal lung sounds bilaterally. Absent: respiratory distress, wheezes, rales, rhonchi, stridor Cardiovascular Exam: Present: regular rate, normal rhythm, normal heart sounds. Absent: systolic murmur, diastolic murmur, rubs, gallop, clicks Extremities exam: Present: other (Bilateral lower extremity multiple wounds, right leg worse, there are multiple open wounds,, increasing erythema, purulent drainage noted) Neurological exam: Present: alert, oriented X3, CN II-XII intact, reflexes normal. Absent: motor sensory deficit Skin exam: Present: warm, dry, intact, normal color. Absent: rash <Pernell Cosby - Last Filed: 01/06/20 18:17> Course Vital Signs 01/06/20 01/06/20 16:59 18:33 Temperature 98.6 F Pulse Rate 84 82 Respiratory 18 17 Rate Blood Pressure 143/72 139/76 O2 Sat by Pulse 96 97 Oximetry Medical Decision Making - Lab Data Result diagrams: 01/06/20 17:34 01/06/20 17:34 <Pernell Cosby - Last Filed: 01/06/20 18:17> - Lab Data Result diagrams: 01/06/20 17:34 01/06/20 17:34 <Kamlesh Milner - Last Filed: 01/06/20 19:00> - Medical Decision Making 72-year-old male presented for right leg cellulitis. His been worse and outpatient given the fact that he started receiving treatment she was advised to be admitted by his vascular surgeon. Patient's labs, x-rays reviewed no evidence of osteal. (Pernell Cosby) Patient reevaluated and reexamined by myself, Dr. Milner. I do agree with the findings. This includes diagnostic interpretation a treatment plan. Patient has bilateral right greater than left leg cellulitis. Right leg wound with mild odor. Results of reports reviewed. Case discussed with practitioner John, covering for Dr. Porter, who will admit covering for Dr. Tatyana Tavera. (Kamlseh Milner) - Lab Data Lab Results 01/06/20 01/06/20 Range/Units 17:34 17:34 WBC 8.5 (3.8-10.6) k/uL RBC 4.83 (4.30-5.90) m/uL Hgb 13.5 (13.0-17.5) gm/dL Hct 42.4 (39.0-53.0) % MCV 87.7 (80.0-100.0) fL MCH 27.9 (25.0-35.0) pg MCHC 31.8 (31.0-37.0) g/dL RDW 17.0 H (11.5-15.5) % Plt Count 250 (150-450) k/uL Neutrophils % 77 % Lymphocytes % 9 % Monocytes % 5 % Eosinophils % 6 % Basophils % 1 % Neutrophils # 6.6 (1.3-7.7) k/uL Lymphocytes # 0.8 L (1.0-4.8) k/uL Monocytes # 0.4 (0-1.0) k/uL Eosinophils # 0.5 (0-0.7) k/uL Basophils # 0.1 (0-0.2) k/uL Anisocytosis Slight Sodium 135 L (137-145) mmol/L Potassium 4.5 (3.5-5.1) mmol/L Chloride 99 (98-107) mmol/L Carbon Dioxide 30 (22-30) mmol/L Anion Gap 6 mmol/L BUN 17 (9-20) mg/dL Creatinine 0.90 (0.66-1.25) mg/dL Est GFR (CKD-EPI)AfAm >90 (>60 ml/min/1.73 sqM) Est GFR (CKD-EPI)NonAf 85 (>60 ml/min/1.73 sqM) Glucose 228 H (74-99) mg/dL Calcium 8.9 (8.4-10.2) mg/dL Total Bilirubin 0.4 (0.2-1.3) mg/dL AST 19 (17-59) U/L ALT 16 (4-49) U/L Alkaline Phosphatase 89 (38-126) U/L Total Protein 7.0 (6.3-8.2) g/dL Albumin 3.6 (3.5-5.0) g/dL Disposition Time of Disposition: 18:18 <Pernell Cosby - Last Filed: 01/06/20 18:17> <Kamlesh Milner - Last Filed: 01/06/20 19:00> Clinical Impression: Cellulitis of right lower extremity, Diabetic leg ulcer, Failure of outpatient treatment Disposition: ADMITTED IP TO THIS HOSP Condition: Fair Referrals: Tatyana Mora MD [Primary Care Provider] - 1-2 days
[2020-01-06] MEDS ORDERED: VANCOMYCIN IV PER PHARMACY 1 EACH MISC MISCELLANE PRN (17:39)
[2020-01-06] MEDS ORDERED: CEFEPIME 2 GM in SODIUM CHLORIDE 0.9% 100 ML IVPB STA (17:41)
[2020-01-06 18:00] LABS: ALT 16 U/L (4-49); AST 19 U/L (17-59); African American GFR (CKD) >90 (>60 ml/min/1.73 sqM); Albumin 3.6 g/dL (3.5-5.0); Alkaline Phosphatase 89 U/L (38-126); Anion Gap 6 mmol/L; Blood Urea Nitrogen 17 mg/dL (9-20); Calcium 8.9 mg/dL (8.4-10.2); Carbon Dioxide 30 mmol/L (22-30); Chloride 99 mmol/L (98-107); Glucose 228 mg/dL (74-99); Non-African American GFR(CKD) 85 (>60 ml/min/1.73 sqM); Potassium 4.5 mmol/L (3.5-5.1); Sodium 135 mmol/L (137-145); Total Bilirubin 0.4 mg/dL (0.2-1.3)
[2020-01-06] MEDS ORDERED: VANCOMYCIN 2,000 MG in SODIUM CHLORIDE 0.9% 500 ML 500 ML IVPB ONE (18:00)
[2020-01-06 18:02] LABS: Anisocytosis Slight; Basophils # (A) 0.1 k/uL (0-0.2); Basophils % (A) 1 %; Eosinophils # (A) 0.5 k/uL (0-0.7); Eosinophils % (A) 6 %; HCT 42.4 % (39.0-53.0); HGB 13.5 gm/dL (13.0-17.5); Lymphocytes # (A) 0.8 k/uL (1.0-4.8); Lymphocytes % (A) 9 %; MCH 27.9 pg (25.0-35.0); MCHC 31.8 g/dL (31.0-37.0); MCV 87.7 fL (80.0-100.0); Mean Platelet Volume 7.8; Monocytes # (A) 0.4 k/uL (0-1.0); Monocytes % (A) 5 %; Neutrophils # (A) 6.6 k/uL (1.3-7.7); Neutrophils % (A) 77 %; Platelet Count 250 k/uL (150-450); RBC 4.83 m/uL (4.30-5.90); WBC 8.5 k/uL (3.8-10.6)
[2020-01-06] MEDS ORDERED: ACETAMINOPHEN TAB 325 MG TAB PO PRN (18:18)
[2020-01-06] MEDS ORDERED: NALOXONE 0.4 MG/ML 1 ML VIAL IV PRN (18:18)
[2020-01-06] MEDS ORDERED: HYDROcodone/APAP 5-325MG 1 EACH TAB PO PRN (18:18)
[2020-01-06] MEDS ORDERED: ONDANSETRON 4 MG/2 ML VIAL IVP PRN (18:18)
--- NOTE | 2020-01-06 18:26 | XR ---
EXAMINATION TYPE: XR tibia fibula RT DATE OF EXAM: 01/06/2020 CLINICAL HISTORY: pain, non healing wound right lower leg TECHNIQUE: AP and lateral images of the right tibia and fibula are obtained. COMPARISON: None. FINDINGS: There is no acute fracture/dislocation evident. The joint spaces appear within normal bob its. Soft tissue wound lower fabian region. No definite bony destructive process seen however if there is clinical concern for osteomyelitis consider WBC scan. IMPRESSION: Soft tissue wound lower fabian region. No definite bony destructive process seen however if there is cl inical concern for osteomyelitis consider WBC scan ICD 10 NO FRACTURE, INITIAL EVALUATION
[2020-01-06] MEDS ORDERED: WARFARIN 7.5 MG TAB PO SCH (20:15)
[2020-01-06 20:50] LABS: INR 3.1 (<1.2); Prothrombin Time 30.8 sec (9.0-12.0)
[2020-01-06 20:57] LABS: Glucose,Whole Blood 162 mg/dL (75-99)
[2020-01-06] MEDS ORDERED: WARFARIN 1 MG TAB PO ONE (21:15)
[2020-01-06] MEDS: INSULIN ASPART (NovoLOG) 100 UNIT/ML VIAL SQ SCH (22:04)
[2020-01-06] MEDS: DILTIAZEM ORAL 60 MG TAB PO SCH (22:04)
[2020-01-06] MEDS: HYDROmorphone 0.5 MG/0.5 ML SYRINGE IVP PRN (23:34)
[2020-01-07] MEDS: LEVOTHYROXINE 100 MCG TAB PO SCH (05:52)
[2020-01-07] MEDS ORDERED: VANCOMYCIN 2,000 MG in SODIUM CHLORIDE 0.9% 500 ML 500 ML IVPB SCH (06:00)
[2020-01-07 07:01] LABS: Glucose,Whole Blood 171 mg/dL (75-99)
[2020-01-07 07:43] LABS: INR 2.9 (<1.2)
[2020-01-07] MEDS: INSULIN ASPART (NovoLOG) 100 UNIT/ML VIAL SQ SCH ×4 (08:00→22:01)
[2020-01-07] MEDS: HYDROmorphone 0.5 MG/0.5 ML SYRINGE IVP PRN ×3 (08:02→22:02)
[2020-01-07] MEDS: glipiZIDE 5 MG TAB PO SCH ×2 (08:06→22:01)
[2020-01-07] MEDS: DILTIAZEM ORAL 60 MG TAB PO SCH ×3 (08:06→22:01)
[2020-01-07] MEDS: ATORVASTATIN 10 MG TAB PO SCH (08:06)
[2020-01-07] MEDS: FUROSEMIDE 20 MG TAB PO SCH (08:06)
[2020-01-07] MEDS: SPIRONOLACTONE 25 MG TAB PO SCH (08:06)
[2020-01-07] MEDS: LOSARTAN 50 MG TAB PO SCH (08:06)
[2020-01-07] MEDS ORDERED: diphenhydrAMINE 25 MG CAP PO PRN (09:43)
--- NOTE | 2020-01-07 09:44 | P.HPIM ---
History of Present Illness this is a pleasant 74 years old male with past medical history of diabetes mellitus, asthma, hypertension, DVT and pulmonary embolism,on warfarin,hypothyroidism, migraine, clotting disorder with factor V- leiden.patient has chronic stasis dermatitis of the lower extremity and chronic ulcers for years, he states that he gets infected from time to time, for the last week he has yellowish drainage from right lower leg ulcer on the lateral side and left lower leg ulcer on the medial side. No fever. No other complaints. He was to see Dr. Ratliff referred him to the emergency room. No chest pain or dyspnea his right leg is bigger than his left leg, patient states this is a chronic situation that is been 4 years vital signs stable and patient is afebrile.no leukocytosis with WBC 8.5K, INR is 2.9,BMP and liver enzymes were unremarkable. Right leg x-ray showing soft tissue wound with no definitive destructive process by radiologist on admission patient was started on vancomycin Dr. Ratliff has been consulted, Review of Systems CONSTITUTIONAL: No fever, no malaise, no fatigue. HEENT: No recent visual problems or hearing problems. Denied any sore throat. CARDIOVASCULAR: No orthopnea, PND, no palpitations, no syncope. PULMONARY: No shortness of breath, no cough, no hemoptysis. GASTROINTESTINAL: No diarrhea, no nausea, no vomiting, no abdominal pain. Normoactive bowel sounds. NEUROLOGICAL: No headaches, no weakness, no numbness. HEMATOLOGICAL: Denies any bleeding or petechiae. GENITOURINARY: Denies any burning micturition, frequency, or urgency. MUSCULOSKELETAL/RHEUMATOLOGICAL: Denies any joint pain, swelling, or any muscle pain. ENDOCRINE: Denies any polyuria or polydipsia. Past Medical History Past Medical History: Asthma, Blood Disorder, Cancer, Diabetes Mellitus, Deep Vein Thrombosis (DVT), GERD/Reflux, GI Bleed, Hypertension, Osteoarthritis (OA), Pneumonia, Pulmonary Embolus (PE), Thyroid Disorder, Vascular Disorder Additional Past Medical History / Comment(s): occular migraines, seasonal allergies, SOB with activity, hx cellulitis, clotting disorder-Factor V- Leiden, basal cell skin ca(folicular) , received shingles vaccine and hepatits a vaccine, hypothyrodism, Type 2 diabetes, medication controlled, heart murmur, kidney stones, YSABEL History of Any Multi-Drug Resistant Organisms: MRSA Date of last positivie culture/infection: 2012 MDRO Source:: bilateral legs Past Surgical History: Cholecystectomy, Hernia Repair, Tonsillectomy Additional Past Surgical History / Comment(s): colonoscopy, basal cell carcinoma from scalp, nasal/sinus, meet filter.pilonsial cyst removed, rt index finger sx- removed calcium deposit, umbilical hernia x 2 Past Anesthesia/Blood Transfusion Reactions: No Reported Reaction Past Psychological History: No Psychological Hx Reported Additional Psychological History / Comment(s): Patient lives with his , in house. Jacobn has stairs at home: 13. Patient has canes, walkers, ect at home for when needed. Doesn't utilize any currently. Smoking Status: Former smoker Past Alcohol Use History: Rare Additional Past Alcohol Use History / Comment(s): Started smoking at age 17(1962 ) and quit age 30(1974). Couple of bottles of beer a week per patient. Past Drug Use History: None Reported - Past Family History Mother Family Medical History: Coronary Artery Disease (CAD), Rheumatoid Arthritis (RA) Additional Family Medical History / Comment(s): age 70 heart problems- RA. Father Family Medical History: No Reported History Additional Family Medical History / Comment(s): age 72 Medications and Allergies Home Medications Medication Instructions Recorded Confirmed Type Omeprazole [PriLOSEC] 20 mg PO DAILY 12/29/13 01/06/20 History Atorvastatin [Lipitor] 10 mg PO DAILY 10/04/17 01/06/20 History Diltiazem HCl 120 mg PO TID 11/21/18 01/06/20 History HYDROcodone/APAP 5-325MG [[place] 1 tab PO BID PRN 10/20/19 01/06/20 History 5-325] Levothyroxine Sodium [Synthroid] 200 mcg PO DAILY 10/20/19 01/06/20 History Losartan [Cozaar] 50 mg PO DAILY 10/20/19 01/06/20 History Montelukast Sodium [Singulair] 10 mg PO HS 10/20/19 01/06/20 History Spironolactone 50 mg PO DAILY 10/20/19 01/06/20 History glipiZIDE XL [Glucotrol XL] 10 mg PO DAILY 10/20/19 01/06/20 History Furosemide [Lasix] 20 mg PO DAILY #30 tab 10/26/19 01/06/20 Rx Albuterol Sulfate [Ventolin HFA] 2 puff INHALATION RT-Q4H PRN 01/06/20 01/06/20 History Amoxicillin 875 mg PO Q12H 01/06/20 01/06/20 History Cephalexin [Keflex] 500 mg PO Q6H 01/06/20 01/06/20 History Warfarin Sodium [Coumadin] 7.5 mg PO HS 01/06/20 01/06/20 History Allergies Allergy/AdvReac Type Severity Reaction Status Date / Time iodine Allergy Anaphylaxis Verified 01/06/20 21:53 latex Allergy Unknown Verified 01/06/20 21:53 lisinopril Allergy Cough Verified 01/06/20 21:53 shellfish derived Allergy Anaphylaxis Verified 01/06/20 21:53 codeine AdvReac Rapid Verified 01/06/20 21:53 Heart Rate Physical Exam Vitals: Vital Signs Temp Pulse Pulse Resp BP BP Pulse Ox 01/07/20 07:00 98.0 F 73 19 150/78 90 L 01/07/20 03:43 15 01/07/20 01:08 98.1 F 72 15 101/63 93 L 01/06/20 23:34 15 01/06/20 20:30 17 01/06/20 20:29 97.7 F 80 17 162/78 97 01/06/20 18:33 82 17 139/76 97 01/06/20 16:59 98.6 F 84 18 143/72 96 Intake and Output 01/06/20 01/07/20 01/07/20 22:59 06:59 14:59 Output Total 400 400 300 Balance -400 -400 -300 Output: Urine 400 400 300 Other: Voiding Method Urinal Urinal # Voids 1 Weight 145.15 kg GENERAL: The patient is alert and oriented x3, not in any acute distress.obese HEENT: Pupils are round and equally reacting to light. EOMI. No scleral icterus. No conjunctival pallor. Normocephalic, atraumatic. No pharyngeal erythema. No thyromegaly. CARDIOVASCULAR: S1 and S2 present. No murmurs, rubs, or gallops. PULMONARY: Chest is clear to auscultation, no wheezing or crackles. ABDOMEN: Soft, nontender, nondistended, normoactive bowel sounds. No palpable organomegaly. MUSCULOSKELETAL: No joint swelling or deformity. -EXTREMITIES: No cyanosis, clubbing, or pedal edema. right lower leg ulcer on the lateral side and left lower leg ulcer on the medial sideMollie surrounding cellulitis NEUROLOGICAL: Gross neurological examination did not reveal any focal deficits. SKIN: No rashes. No petechiae Results CBC & Chem 7: 01/06/20 17:34 01/06/20 17:34 Labs: Abnormal Lab Results - Last 24 Hours (Table) 01/06/20 01/06/20 01/06/20 Range/Units 17:34 17:34 17:34 RDW 17.0 H (11.5-15.5) % Lymphocytes # 0.8 L (1.0-4.8) k/uL PT 30.8 H (9.0-12.0) sec INR 3.1 H (<1.2) Sodium 135 L (137-145) mmol/L Glucose 228 H (74-99) mg/dL POC Glucose (mg/dL) (75-99) mg/dL 01/06/20 01/07/20 01/07/20 Range/Units 20:49 06:52 06:59 RDW (11.5-15.5) % Lymphocytes # (1.0-4.8) k/uL PT 28.0 H (9.0-12.0) sec INR 2.9 H (<1.2) Sodium (137-145) mmol/L Glucose (74-99) mg/dL POC Glucose (mg/dL) 162 H 171 H (75-99) mg/dL Thrombosis Risk Factor Assmnt - Choose All That Apply Each Factor Represents 1 point: Obesity (BMI >25), Swollen legs (current) Each Risk Factor Represents 2 Points: Age 61-74 years Each Risk Factor Represents 3 Points: Positive Factor V Leiden, History of DVT/PE Thrombosis Risk Factor Assessment Total Risk Factor Score: 10 Thrombosis Risk Factor Assessment Level: High Risk Assessment and Plan Assessment: bilateral leg cellulitis, failed outpatient treatment. Associated with yellow drainage from right lower leg ulcer on the lateral side and left lower leg ulcer on the medial side DVT and pulmonary embolism,on warfarin,clotting disorder with factor V-leiden migraine Hypothyroidism Hypertension Diabetes mellitus asthma previous infection with MRSA obesity with BMI of 43 Plan: this is a pleasant 74 years old male who presents with a right leg cellulitis and leg wound, continue with antibiotic vancomycin monitor renal function closely.follow-up with Dr. Ratliff from surgery.consult infectious disease Labs and medication were reviewed.. Continue same treatment. Continue with s ymptomatic treatment. Resume home medication. Monitor lytes and vitals. DVT and GI prophylaxis. Further recommendations of the clinical course of the patient DVT prophylaxis: on warfarin GI Prophylaxis: Pepcid PT/OT: Pending Prognosis is guarded
[2020-01-07 11:05] LABS: Glucose,Whole Blood 204 mg/dL (75-99)
--- NOTE | 2020-01-07 15:52 | CONS ---
CONSULTATION This is a 74-year-old gentleman who is well known to me from the [facility]. He has a longstanding history of chronic DVT and PE. The patient is on anticoagulation. The patient has been developing recurrent cellulitis and venostasis ulcer right and left lower extremity, more on the right than on the left. The patient was seen last Sunday in the [facility]. There was some redness noted and also some mild drainage from the venostasis ulcer right lower extremity. The patient came in, admitted for IV antibiotic and local wound care. PAST HISTORY: Patient had history of obesity, history of blood disorder, history of pulmonary embolism and DVT. Patient on anticoagulation. PERSONAL HISTORY: Former smoker. PHYSICAL EXAMINATION: Patient was seen in his room. NECK: Supple, trachea central. CHEST: Clear. ABDOMEN: Soft. Femorals are present. Patient has swelling of the right lower extremity with cellulitis, comparing to the left leg. Patient has a venostasis ulcer on the right lower extremity and ulcer on his left lower extremity. We have been treating with compression wrap, leg elevation. Patient is on IV antibiotics. Recommend to have a two pillow elevation and who will be using Silver to the venous stasis ulcer right lower extremity and left lower extremity, which will be continued. Follow with you. MMODL / IJN: [id number] /
[2020-01-07 16:25] LABS: Glucose,Whole Blood 148 mg/dL (75-99)
[2020-01-07] MEDS ORDERED: WARFARIN 7.5 MG TAB PO ONE (18:00)
[2020-01-07 20:36] LABS: Glucose,Whole Blood 182 mg/dL (75-99)
[2020-01-07] MEDS: FAMOTIDINE 20 MG/2 ML VIAL IV SCH (22:01)
[2020-01-07] MEDS: CEFEPIME 2 GM in SODIUM CHLORIDE 0.9% 100 ML IVPB SCH (22:02)
--- NOTE | 2020-01-07 23:57 | P.CONS ---
History of Present Illness - Reason for Consult Consult date: 01/07/20 Bilateral leg cellulitis Requesting physician: Bayron E Sheet - Chief Complaint bilateral leg redness x few days - History of Present Illness Patient is a 74-year-old male with a past medical he significant for chronic venous stasis ulcers to both lower extremity with a previous episode of cellulitis patient to follow with Dr. Brown in the wound care center he was evaluated on Sunday for his lower extremity wound noticed to have significant cellulitis of the lower extremity and worsening of his wound the patient was advised admission the hospital patient did not came for admission that day however presented last evening for admission patient be complaining of increasing swelling and redness of the lower extremity for the last few days please describe the pain to the like to be more of a throbbing to dull aching about 7-8 out of 10 and no radiation patient denies high-grade fever however did have some chills with the symptom the patient was evaluated by the physician on arrival to the ER the patient has been afebrile patient did have a normal white count hester PCR was negative blood culture has been obtained and the patient was started on vancomycin pharmacy dose infectious was consulted for further management of lower extremity cellulitis and antibiotics. Review of Systems Positive point has been mentioned in HPI rest of the systems are negative Past Medical History Past Medical History: Asthma, Blood Disorder, Cancer, Diabetes Mellitus, Deep Vein Thrombosis (DVT), GERD/Reflux, GI Bleed, Hypertension, Osteoarthritis (OA), Pneumonia, Pulmonary Embolus (PE), Thyroid Disorder, Vascular Disorder Additional Past Medical History / Comment(s): occular migraines, seasonal allergies, SOB with activity, hx cellulitis, clotting disorder-Factor V- Leiden, basal cell skin ca(folicular) , received shingles vaccine and hepatits a vaccine, hypothyrodism, Type 2 diabetes, medication controlled, heart murmur, kidney stones, YSABEL History of Any Multi-Drug Resistant Organisms: MRSA Year Discovered:: 2012 MDRO Source:: bilateral legs Past Surgical History: Cholecystectomy, Hernia Repair, Tonsillectomy Additional Past Surgical History / Comment(s): colonoscopy, basal cell carcinoma from scalp, nasal/sinus, meet filter.pilonsial cyst removed, rt index finger sx- removed calcium deposit, umbilical hernia x 2 Past Anesthesia/Blood Transfusion Reactions: No Reported Reaction Past Psychological History: No Psychological Hx Reported Additional Psychological History / Comment(s): Patient lives with his , in house. Ivis has stairs at home: 13. Patient has canes, walkers, ect at home for when needed. Doesn't utilize any currently. Smoking Status: Former smoker Past Alcohol Use History: Rare Additional Past Alcohol Use History / Comment(s): Started smoking at age 17(1962) and quit age 30(1974). Couple of bottles of beer a week per patient. Past Drug Use History: None Reported - Past Family History Mother Family Medical History: Coronary Artery Disease (CAD), Rheumatoid Arthritis (RA) Additional Family Medical History / Comment(s): age 70 heart problems- RA. Father Family Medical History: No Reported History Additional Family Medical History / Comment(s): age 72 Medications and Allergies Home Medications Medication Instructions Recorded Confirmed Type Omeprazole [PriLOSEC] 20 mg PO DAILY 12/29/13 01/06/20 History Atorvastatin [Lipitor] 10 mg PO DAILY 10/04/17 01/06/20 History Diltiazem HCl 120 mg PO TID 11/21/18 01/06/20 History HYDROcodone/APAP 5-325MG [[place] 1 tab PO BID PRN 10/20/19 01/06/20 History 5-325] Levothyroxine Sodium [Synthroid] 200 mcg PO DAILY 10/20/19 01/06/20 History Losartan [Cozaar] 50 mg PO DAILY 10/20/19 01/06/20 History Montelukast Sodium [Singulair] 10 mg PO HS 10/20/19 01/06/20 History Spironolactone 50 mg PO DAILY 10/20/19 01/06/20 History glipiZIDE XL [Glucotrol XL] 10 mg PO DAILY 10/20/19 01/06/20 History Furosemide [Lasix] 20 mg PO DAILY #30 tab 10/26/19 01/06/20 Rx Albuterol Sulfate [Ventolin HFA] 2 puff INHALATION RT-Q4H PRN 01/06/20 01/06/20 History Amoxicillin 875 mg PO Q12H 01/06/20 01/06/20 History Cephalexin [Keflex] 500 mg PO Q6H 01/06/20 01/06/20 History Warfarin Sodium [Coumadin] 7.5 mg PO HS 01/06/20 01/06/20 History Allergies Allergy/AdvReac Type Severity Reaction Status Date / Time iodine Allergy Anaphylaxis Verified 01/06/20 21:53 latex Allergy Unknown Verified 01/06/20 21:53 lisinopril Allergy Cough Verified 01/06/20 21:53 shellfish derived Allergy Anaphylaxis Verified 01/06/20 21:53 codeine AdvReac Rapid Verified 01/06/20 21:53 Heart Rate Physical Exam Vitals: Vital Signs Temp Pulse Pulse Resp BP BP Pulse Ox 01/07/20 15:00 97.8 F 69 19 149/72 93 L 01/07/20 07:00 98.0 F 73 19 150/78 90 L 01/07/20 03:43 15 01/07/20 01:08 98.1 F 72 15 101/63 93 L 01/06/20 23:34 15 01/06/20 20:30 17 01/06/20 20:29 97.7 F 80 17 162/78 97 01/06/20 18:33 82 17 139/76 97 01/06/20 16:59 98.6 F 84 18 143/72 96 Intake and Output 01/07/20 01/07/20 01/07/20 06:59 14:59 22:59 Output Total 400 550 300 Balance -400 -550 -300 Output: Urine 400 550 300 Other: Voiding Method Urinal Urinal # Voids 1 1 GENERAL DESCRIPTION: Elderly male lying in bed, no distress. No tachypnea or accessory muscle of respiration use. HEENT: Shows Pallor , no scleral icterus. Oral mucous membrane is dry. NECK: Trachea central, no thyromegaly. LUNGS: Unlabored breathing. Clear to auscultation anteriorly. No wheeze or crackle. HEART: S1, S2, regular rate and rhythm. ABDOMEN: Soft, no tenderness , guarding or rigidity EXTREMITIES: Bilateral lower extremity with significant venous stasis ulcers no significant slough tissue swelling and redness and some foul-smelling drainage. SKIN: No rash, no masses palpable. NEUROLOGICAL: The patient is awake, alert, oriented x3, mood and affect normal. Results CBC & Chem 7: 01/06/20 17:34 01/06/20 17:34 Labs: Abnormal Lab Results - Last 24 Hours (Table) 01/06/20 01/06/20 01/06/20 Range/Units 17:34 17:34 17:34 RDW 17.0 H (11.5-15.5) % Lymphocytes # 0.8 L (1.0-4.8) k/uL PT 30.8 H (9.0-12.0) sec INR 3.1 H (<1.2) Sodium 135 L (137-145) mmol/L Glucose 228 H (74-99) mg/dL POC Glucose (mg/dL) (75-99) mg/dL 01/06/20 01/07/20 01/07/20 Range/Units 20:49 06:52 06:59 RDW (11.5-15.5) % Lymphocytes # (1.0-4.8) k/uL PT 28.0 H (9.0-12.0) sec INR 2.9 H (<1.2) Sodium (137-145) mmol/L Glucose (74-99) mg/dL POC Glucose (mg/dL) 162 H 171 H (75-99) mg/dL 01/07/20 Range/Units 11:04 RDW (11.5-15.5) % Lymphocytes # (1.0-4.8) k/uL PT (9.0-12.0) sec INR (<1.2) Sodium (137-145) mmol/L Glucose (74-99) mg/dL POC Glucose (mg/dL) 204 H (75-99) mg/dL Assessment and Plan Assessment: patient with bilateral lower extremity venous stasis ulcers with second cellulitis likely from gram-positive skin noe from leg infection not likely but not entirely excluded patient has previously grown Proteus and MSSA and no h istory of MRSA infection (1) Cellulitis of right leg Current Visit: Yes Status: Acute Code(s): L03.115 - CELLULITIS OF RIGHT LOWER LIMB SNOMED Code(s): 213683348 (2) Cellulitis of left lower extremity Current Visit: No Status: Acute Code(s): L03.116 - CELLULITIS OF LEFT LOWER LIMB SNOMED Code(s): 677179007 Plan: 1-discontinue vancomycin 2-we will start with cefepime 2 g every 12 hours 3-local wound care with a dry Aquacel silver Aquacel silver dressing followed by Zeus wrap from just above the toe to below knee to be changed daily We will follow on clinical condition and cultures to further adjust medication if neededThank you for this consultation we will follow the patient along with you Time with Patient: Greater than 30
[2020-01-08] MEDS: LEVOTHYROXINE 100 MCG TAB PO SCH (05:35)
[2020-01-08 06:58] LABS: Glucose,Whole Blood 184 mg/dL (75-99)
[2020-01-08] MEDS: CEFEPIME 2 GM in SODIUM CHLORIDE 0.9% 100 ML IVPB SCH ×2 (08:13→20:45)
[2020-01-08] MEDS: glipiZIDE 5 MG TAB PO SCH ×2 (08:14→20:45)
[2020-01-08] MEDS: LOSARTAN 50 MG TAB PO SCH (08:14)
[2020-01-08] MEDS: FUROSEMIDE 20 MG TAB PO SCH (08:14)
[2020-01-08] MEDS: SPIRONOLACTONE 25 MG TAB PO SCH (08:14)
[2020-01-08] MEDS: FAMOTIDINE 20 MG/2 ML VIAL IV SCH (08:14)
[2020-01-08] MEDS: INSULIN ASPART (NovoLOG) 100 UNIT/ML VIAL SQ SCH ×4 (08:14→20:46)
[2020-01-08] MEDS: ATORVASTATIN 10 MG TAB PO SCH (08:14)
[2020-01-08] MEDS: DILTIAZEM ORAL 60 MG TAB PO SCH ×3 (08:25→20:45)
[2020-01-08 08:32] LABS: Anisocytosis Slight; Basophils # (A) 0.1 k/uL (0-0.2); Basophils % (A) 1 %; Eosinophils # (A) 0.5 k/uL (0-0.7); Eosinophils % (A) 7 %; HCT 45.1 % (39.0-53.0); HGB 13.7 gm/dL (13.0-17.5); Lymphocytes # (A) 0.6 k/uL (1.0-4.8); Lymphocytes % (A) 7 %; MCH 27.3 pg (25.0-35.0); MCHC 30.5 g/dL (31.0-37.0); MCV 89.5 fL (80.0-100.0); Mean Platelet Volume 7.3; Monocytes # (A) 0.4 k/uL (0-1.0); Monocytes % (A) 5 %; Neutrophils # (A) 6.3 k/uL (1.3-7.7); Neutrophils % (A) 78 %; Platelet Count 237 k/uL (150-450); RBC 5.04 m/uL (4.30-5.90); RDW 17.1 % (11.5-15.5); WBC 8.1 k/uL (3.8-10.6)
[2020-01-08 08:38] LABS: INR 2.5 (<1.2); Prothrombin Time 23.9 sec (9.0-12.0)
[2020-01-08 08:50] LABS: African American GFR (CKD) >90 (>60 ml/min/1.73 sqM); Anion Gap 9 mmol/L; Blood Urea Nitrogen 19 mg/dL (9-20); Calcium 9.2 mg/dL (8.4-10.2); Carbon Dioxide 28 mmol/L (22-30); Chloride 99 mmol/L (98-107); Glucose 171 mg/dL (74-99); Non-African American GFR(CKD) 79 (>60 ml/min/1.73 sqM); Potassium 4.5 mmol/L (3.5-5.1); Sodium 136 mmol/L (137-145)
[2020-01-08] MEDS: HYDROmorphone 0.5 MG/0.5 ML SYRINGE IVP PRN ×2 (11:20→17:37)
[2020-01-08 11:31] LABS: Glucose,Whole Blood 171 mg/dL (75-99)
--- NOTE | 2020-01-08 12:41 | P.PN ---
Subjective this is a pleasant 74 years old male with past medical history of diabetes mellitus, asthma, hypertension, DVT and pulmonary embolism,on warfarin,h ypothyroidism, migraine, clotting disorder with factor V-leiden.patient has chronic stasis dermatitis of the lower extremity and chronic ulcers for years, he states that he gets infected from time to time, for the last week he has yellowish drainage from right lower leg ulcer on the lateral side and left lower leg ulcer on the medial side. No fever. No other complaints. He was to see Dr. Ratliff referred him to the emergency room. No chest pain or dyspnea his right leg is bigger than his left leg, patient states this is a chronic situation that is been 4 years vital signs stable and patient is afebrile.no leukocytosis with WBC 8.5K, INR is 2.9,BMP and liver enzymes were unremarkable. Right leg x-ray showing soft tissue wound with no definitive destructive process by radiologist on admission patient was started on vancomycin Dr. Ratliff has been consulted, 01/08/2020 Patient cellulitis of the lower extremity is significantly improving with less discharge. vitals are stable.INR 2.5 which is therapeutic at sodium 135, creatinine normal, sugar is controlled. Infectious disease input is appreciated. Continue with cefepime Possible discharge in 24-48 hours the patient continued to improve Review of Systems CONSTITUTIONAL: No fever, no malaise, no fatigue. HEENT: No recent visual problems or hearing problems. Denied any sore throat. CARDIOVASCULAR: No orthopnea, PND, no palpitations, no syncope. PULMONARY: No shortness of breath, no cough, no hemoptysis. GASTROINTESTINAL: No diarrhea, no nausea, no vomiting, no abdominal pain. Normoactive bowel sounds. NEUROLOGICAL: No headaches, no weakness, no numbness. HEMATOLOGICAL: Denies any bleeding or petechiae. GENITOURINARY: Denies any burning micturition, frequency, or urgency. MUSCULOSKELETAL/RHEUMATOLOGICAL: Denies any joint pain, swelling, or any muscle pain. ENDOCRINE: Denies any polyuria or polydipsia. Active Medications Generic Name Dose Route Start Last Admin Trade Name Freq PRN Reason Stop Dose Admin Acetaminophen 650 mg 01/06/20 18:18 Tylenol Tab PO Q6HR PRN Mild Pain or Fever > 100.5 Hydrocodone Bitart/Acetaminophen 1 each 01/06/20 18:18 [place] 5-325 PO Q4HR PRN Moderate Pain Atorvastatin Calcium 10 mg 01/07/20 09:00 01/08/20 08:14 Lipitor PO 10 mg DAILY NUBIA Administration Diltiazem HCl 120 mg 01/06/20 22:00 01/08/20 08:25 Cardizem Oral PO 120 mg TID NUBIA Administration Diphenhydramine HCl 25 mg 01/07/20 09:43 01/07/20 13:32 Benadryl PO 25 mg TID PRN Administration Itching Famotidine 20 mg 01/08/20 21:00 Pepcid PO Q12HR NUBIA Furosemide 20 mg 01/07/20 09:00 01/08/20 08:14 Lasix PO 20 mg DAILY NUBIA Administration Glipizide 5 mg 01/07/20 09:00 01/08/20 08:14 Glucotrol PO 5 mg BID NUBIA Administration Hydromorphone HCl 0.5 mg 01/06/20 18:18 01/08/20 11:20 Dilaudid IVP 0.5 mg Q3HR PRN Administration Moderate Pain Cefepime HCl 2 gm/ Sodium 100 mls @ 200 mls/hr 01/07/20 21:00 01/08/20 08:13 Chloride IVPB 200 mls/hr Q12HR NUBIA Administration Insulin Aspart 0 unit 01/06/20 21:00 01/08/20 11:35 Novolog SQ 2 unit ACHS NUBIA Administration Protocol Levothyroxine Sodium 200 mcg 01/07/20 06:30 01/08/20 05:35 Synthroid PO 200 mcg DAILY@0630 NUBIA Administration Losartan Potassium 50 mg 01/07/20 09:00 01/08/20 08:14 Cozaar PO 50 mg DAILY NUBIA Administration Miscellaneous Information 0 each 01/06/20 20:25 Coumadin Per Pharmacy MISCELLANE DIRECTED PRN PHARMACY DOSING POLICY Naloxone HCl 0.2 mg 01/06/20 18:18 Narcan IV Q2M PRN Opioid Reversal Ondansetron HCl 4 mg 01/06/20 18:18 Zofran IVP Q8HR PRN Nausea And Vomiting Spironolactone 50 mg 01/07/20 09:00 01/08/20 08:14 Aldactone PO 50 mg DAILY NUBIA Administration Warfarin Sodium 7.5 mg 01/08/20 18:00 Coumadin PO 01/08/20 18:01 ONCE@1800 ONE Objective - Vital Signs Vital signs: Vital Signs Temp 97.9 F 01/08/20 07:00 Pulse 69 01/08/20 07:00 Resp 18 01/08/20 08:33 BP 125/58 01/08/20 07:00 Pulse Ox 94 L 01/08/20 07:00 Intake & Output 01/07/20 01/08/20 01/08/20 18:59 06:59 18:59 Output Total 1100 1850 Balance -1100 -1850 Output: Urine 1100 1850 Other: Voiding Method Urinal Urinal # Voids 1 - Exam GENERAL: The patient is alert and oriented x3, not in any acute distress.obese HEENT: Pupils are round and equally reacting to light. EOMI. No scleral icterus. No conjunctival pallor. Normocephalic, atraumatic. No pharyngeal erythema. No thyromegaly. CARDIOVASCULAR: S1 and S2 present. No murmurs, rubs, or gallops. PULMONARY: Chest is clear to auscultation, no wheezing or crackles. ABDOMEN: Soft, nontender, nondistended, normoactive bowel sounds. No palpable organomegaly. MUSCULOSKELETAL: No joint swelling or deformity. -EXTREMITIES: No cyanosis, clubbing, or pedal edema. right lower leg ulcer on the lateral side and left lower leg ulcer on the medial sideMollie surrounding cellulitis, improving significantly NEUROLOGICAL: Gross neurological examination did not reveal any focal deficits. SKIN: No rashes. No petechiae - Labs CBC & Chem 7: 01/08/20 08:08 01/08/20 08:08 Labs: Abnormal Lab Results - Last 24 Hours (Table) 01/07/20 01/07/20 01/08/20 Range/Units 16:24 20:35 06:56 MCHC (31.0-37.0) g/dL RDW (11.5-15.5) % Lymphocytes # (1.0-4.8) k/uL PT (9.0-12.0) sec INR (<1.2) Sodium (137-145) mmol/L Glucose (74-99) mg/dL POC Glucose (mg/dL) 148 H 182 H 184 H (75-99) mg/dL 01/08/20 01/08/20 01/08/20 Range/Units 08:08 08:08 08:08 MCHC 30.5 L (31.0-37.0) g/dL RDW 17.1 H (11.5-15.5) % Lymphocytes # 0.6 L (1.0-4.8) k/uL PT 23.9 H (9.0-12.0) sec INR 2.5 H (<1.2) Sodium 136 L (137-145) mmol/L Glucose 171 H (74-99) mg/dL POC Glucose (mg/dL) (75-99) mg/dL 01/08/20 Range/Units 11:30 MCHC (31.0-37.0) g/dL RDW (11.5-15.5) % Lymphocytes # (1.0-4.8) k/uL PT (9.0-12.0) sec INR (<1.2) Sodium (137-145) mmol/L Glucose (74-99) mg/dL POC Glucose (mg/dL) 171 H (75-99) mg/dL Microbiology - Last 24 Hours (Table) 01/06/20 17:45 Blood Culture - Preliminary Blood No Growth after 24 hours Assessment and Plan Assessment: bilateral leg cellulitis, failed outpatient treatment. Associated with yellow drainage from right lower leg ulcer on the lateral side and left lower leg ulcer on the medial side DVT and pulmonary embolism,on warfarin,clotting disorder with factor V-leiden migraine Hypothyroidism Hypertension Diabetes mellitus asthma previous infection with MRSA obesity with BMI of 43 Plan: this is a pleasant 74 years old male who presents with a right leg cellulitis and leg wound, continue with antibiotic vancomycin monitor renal function closely.follow-up with Dr. Ratliff from surgery.consult infectious disease Labs and medication were reviewed.. Continue same treatment. Continue with symptomatic treatment. Resume home medication. Monitor lytes and vitals. DVT and GI prophylaxis. Further recommendations of the clinical course of the patient DVT prophylaxis: on warfarin GI Prophylaxis: Pepcid PT/OT: Pending Prognosis is guarded
--- NOTE | 2020-01-08 14:37 | PN ---
PROGRESS NOTE This is a 74-year-old gentleman, well known to me from the wound clinic. The patient has a chronic history of DVT and venous hypertension. The patient has some venous ulcer right lower extremity. He came with swelling and some cellulitis of the right lower extremity. The patient had history of diabetes, obesity, hypertension. On examination, patient has a venous stasis ulcer right lower extremity at the ankle area. We have been treating with Aquacel silver, leg elevation and IV antibiotic. We will continue the same treatment. If discharged from the wound clinic, we will follow up in the wound clinic. MMODL / IJN: [id number] /
[2020-01-08 16:33] LABS: Glucose,Whole Blood 160 mg/dL (75-99)
--- NOTE | 2020-01-08 17:31 | PN ---
PROGRESS NOTE DATE OF SERVICE: 01/08/2020 REASON FOR FOLLOWUP: Bilateral lower extremity venostasis ulcers and cellulitis. INTERVAL HISTORY: The patient is currently afebrile, has been breathing comfortably. Still complaining of pain to the lower extremities, but no worsening. No chest pain, shortness of breath or cough. No abdominal pain or diarrhea. PHYSICAL EXAMINATION: Blood pressure 130/65 with a pulse of 65, temperature 97.4. He is 97% on room air. General description is an elderly male lying in bed in no distress. RESPIRATORY SYSTEM: Unlabored breathing. Clear to auscultation anteriorly. HEART: S1, S2. Regular rate and rhythm. ABDOMEN: Soft. No tenderness. Right leg overall swelling and redness has improved as well as drainage. LABS: Hemoglobin 13.7, white count 8.1, creatinine 0.96. DIAGNOSTIC IMPRESSION AND PLAN: Patient with bilateral lower extremity wounds with secondary cellulitis. The patient seems to have shown clinical response to the cefepime; to continue. Local care to continue with dry Aquacel Silver dressing and monitor clinical course closely. MMODL / IJN: [id number] /
[2020-01-08] MEDS ORDERED: WARFARIN 7.5 MG TAB PO ONE (18:00)
[2020-01-08 20:38] LABS: Glucose,Whole Blood 184 mg/dL (75-99)
[2020-01-08] MEDS: FAMOTIDINE 20 MG TAB PO SCH (20:45)
[2020-01-09] MEDS: HYDROmorphone 0.5 MG/0.5 ML SYRINGE IVP PRN ×2 (01:14→07:52)
[2020-01-09] MEDS ORDERED: VANCOMYCIN TROUGH DUE 1 EACH MISC MISCELLANE ONE (05:00)
[2020-01-09] MEDS: LEVOTHYROXINE 100 MCG TAB PO SCH (05:43)
[2020-01-09 07:02] LABS: Glucose,Whole Blood 172 mg/dL (75-99)
[2020-01-09] MEDS: SPIRONOLACTONE 25 MG TAB PO SCH (07:53)
[2020-01-09] MEDS: CEFEPIME 2 GM in SODIUM CHLORIDE 0.9% 100 ML IVPB SCH ×2 (07:53→20:55)
[2020-01-09] MEDS: INSULIN ASPART (NovoLOG) 100 UNIT/ML VIAL SQ SCH ×4 (07:53→20:56)
[2020-01-09] MEDS: glipiZIDE 5 MG TAB PO SCH ×2 (07:54→20:55)
[2020-01-09] MEDS: FAMOTIDINE 20 MG TAB PO SCH ×2 (07:54→20:55)
[2020-01-09] MEDS: DILTIAZEM ORAL 60 MG TAB PO SCH ×3 (07:54→20:58)
[2020-01-09] MEDS: FUROSEMIDE 20 MG TAB PO SCH (07:54)
[2020-01-09] MEDS: LOSARTAN 50 MG TAB PO SCH (07:54)
[2020-01-09] MEDS: ATORVASTATIN 10 MG TAB PO SCH (07:54)
[2020-01-09 08:28] LABS: INR 2.5 (<1.2); Prothrombin Time 23.9 sec (9.0-12.0)
--- NOTE | 2020-01-09 10:03 | P.PN ---
Subjective this is a pleasant 74 years old male with past medical history of diabetes mellitus, asthma, hypertension, DVT and pulmonary embolism,on warfarin,h ypothyroidism, migraine, clotting disorder with factor V-leiden.patient has chronic stasis dermatitis of the lower extremity and chronic ulcers for years, he states that he gets infected from time to time, for the last week he has yellowish drainage from right lower leg ulcer on the lateral side and left lower leg ulcer on the medial side. No fever. No other complaints. He was to see Dr. Ratliff referred him to the emergency room. No chest pain or dyspnea his right leg is bigger than his left leg, patient states this is a chronic situation that is been 4 years vital signs stable and patient is afebrile.no leukocytosis with WBC 8.5K, INR is 2.9,BMP and liver enzymes were unremarkable. Right leg x-ray showing soft tissue wound with no definitive destructive process by radiologist on admission patient was started on vancomycin Dr. Ratliff has been consulted, 01/08/2020 Patient cellulitis of the lower extremity is significantly improving with less discharge. vitals are stable.INR 2.5 which is therapeutic at sodium 135, creatinine normal, sugar is controlled. Infectious disease input is appreciated. Continue with cefepime Possible discharge in 24-48 hours the patient continued to improve 01/09/2020 Patient still treated for bilateral lower symphysis cellulitis and wounds with gradual improvement. While he is on cefepime. No fever. INR several at 2.5 Discussed the case with physical therapy for possible need for subacute rehab as he is on blood thinner, obese with neck cellulitis Objective - Vital Signs Vital signs: Vital Signs Temp 98.2 F 01/09/20 07:00 Pulse 64 01/09/20 07:58 Resp 17 01/09/20 07:58 BP 132/72 01/09/20 07:00 Pulse Ox 95 01/09/20 07:00 Intake & Output 01/08/20 01/09/20 01/09/20 18:59 06:59 18:59 Intake Total 200 Output Total 200 Balance 200 -200 Intake: Oral 200 Output: Urine 200 Other: Voiding Method Urinal # Voids 1 1 - Exam GENERAL: The patient is alert and oriented x3, not in any acute distress.obese HEENT: Pupils are round and equally reacting to light. EOMI. No scleral icterus. No conjunctival pallor. Normocephalic, atraumatic. No pharyngeal erythema. No thyromegaly. CARDIOVASCULAR: S1 and S2 present. No murmurs, rubs, or gallops. PULMONARY: Chest is clear to auscultation, no wheezing or crackles. ABDOMEN: Soft, nontender, nondistended, normoactive bowel sounds. No palpable organomegaly. MUSCULOSKELETAL: No joint swelling or deformity. -EXTREMITIES: No cyanosis, clubbing, or pedal edema. right lower leg ulcer on the lateral side and left lower leg ulcer on the medial sideMollie surrounding cellulitis, improving significantly NEUROLOGICAL: Gross neurological examination did not reveal any focal deficits. SKIN: No rashes. No petechiae - Labs CBC & Chem 7: 01/08/20 08:08 01/08/20 08:08 Labs: Abnormal Lab Results - Last 24 Hours (Table) 01/08/20 01/08/20 01/08/20 Range/Units 11:30 16:31 20:36 PT (9.0-12.0) sec INR (<1.2) POC Glucose (mg/dL) 171 H 160 H 184 H (75-99) mg/dL 01/09/20 01/09/20 Range/Units 07:00 07:56 PT 23.9 H (9.0-12.0) sec INR 2.5 H (<1.2) POC Glucose (mg/dL) 172 H (75-99) mg/dL Microbiology - Last 24 Hours (Table) 01/06/20 17:45 Blood Culture - Preliminary Blood No Growth after 48 hours Assessment and Plan Assessment: bilateral leg cellulitis, failed outpatient treatment. Associated with yellow drainage from right lower leg ulcer on the lateral side and left lower leg ulcer on the medial side DVT and pulmonary embolism,on warfarin,clotting disorder with factor V-leiden migraine Hypothyroidism Hypertension Diabetes mellitus asthma previous infection with MRSA obesity with BMI of 43 Plan: this is a pleasant 74 years old male who presents with a right leg cellulitis and leg wound, continue with antibiotic vancomycin monitor renal function closely.follow-up with Dr. Ratliff from surgery.consult infectious disease Labs and medication were reviewed.. Continue same treatment. Continue with symptomatic treatment. Resume home medication. Monitor lytes and vitals. DVT and GI prophylaxis. Further recommendations of the clinical course of the patient DVT prophylaxis: on warfarin GI Prophylaxis: Pepcid PT/OT: Pending Prognosis is guarded
[2020-01-09 12:02] LABS: Glucose,Whole Blood 194 mg/dL (75-99)
[2020-01-09 17:13] LABS: Glucose,Whole Blood 154 mg/dL (75-99)
[2020-01-09] MEDS ORDERED: WARFARIN 7.5 MG TAB PO ONE (18:00)
[2020-01-09 20:23] LABS: Glucose,Whole Blood 168 mg/dL (75-99)
--- NOTE | 2020-01-09 22:56 | PN ---
PROGRESS NOTE DATE OF SERVICE: 01/09/2020 REASON FOR FOLLOWUP: Bilateral lower extremity wounds and cellulitis. INTERVAL HISTORY: The patient is currently afebrile. The patient is breathing comfortably. Pain to the leg has slightly decreased in intensity. No chest pain, shortness of breath or cough. No abdominal pain or diarrhea. PHYSICAL EXAMINATION: Blood pressure 112/65 with a pulse of 70, temperature 98.1. He is 95% on room air. General description is an elderly male lying in bed in no distress. RESPIRATORY SYSTEM: Unlabored breathing. Clear to auscultation anteriorly. HEART: S1, S2. Regular rate and rhythm. ABDOMEN: Soft. No tenderness. Legs are currently wrapped up. Swelling persists. Redness slightly decreased. LABS: Blood culture negative. DIAGNOSTIC IMPRESSION AND PLAN: Patient with bilateral lower extremity venostasis ulcers with secondary cellulitis. Patient to continue with cefepime. Local care with dry Aquacel Silver dressing and Zeus wrap. Continue with supportive care. MMODL / IJN: [id number] /
[2020-01-10] MEDS: HYDROmorphone 0.5 MG/0.5 ML SYRINGE IVP PRN ×3 (00:58→09:35)
[2020-01-10] MEDS: LEVOTHYROXINE 100 MCG TAB PO SCH (05:37)
[2020-01-10 06:54] LABS: Glucose,Whole Blood 139 mg/dL (75-99)
[2020-01-10] MEDS: DILTIAZEM ORAL 60 MG TAB PO SCH ×3 (08:00→21:15)
[2020-01-10 08:06] LABS: INR 2.6 (<1.2); Prothrombin Time 25.1 sec (9.0-12.0)
[2020-01-10] MEDS: FAMOTIDINE 20 MG TAB PO SCH ×2 (08:38→21:16)
[2020-01-10] MEDS: SPIRONOLACTONE 25 MG TAB PO SCH (08:38)
[2020-01-10] MEDS: glipiZIDE 5 MG TAB PO SCH ×2 (08:38→21:16)
[2020-01-10] MEDS: INSULIN ASPART (NovoLOG) 100 UNIT/ML VIAL SQ SCH ×4 (08:38→21:16)
[2020-01-10] MEDS: FUROSEMIDE 20 MG TAB PO SCH (08:38)
[2020-01-10] MEDS: LOSARTAN 50 MG TAB PO SCH (08:38)
[2020-01-10] MEDS: ATORVASTATIN 10 MG TAB PO SCH (08:38)
[2020-01-10] MEDS: CEFEPIME 2 GM in SODIUM CHLORIDE 0.9% 100 ML IVPB SCH ×2 (08:39→21:16)
[2020-01-10 11:38] LABS: Glucose,Whole Blood 169 mg/dL (75-99)
--- NOTE | 2020-01-10 11:45 | P.PN ---
Subjective this is a pleasant 74 years old male with past medical history of diabetes mellitus, asthma, hypertension, DVT and pulmonary embolism,on warfarin,h ypothyroidism, migraine, clotting disorder with factor V-leiden.patient has chronic stasis dermatitis of the lower extremity and chronic ulcers for years, he states that he gets infected from time to time, for the last week he has yellowish drainage from right lower leg ulcer on the lateral side and left lower leg ulcer on the medial side. No fever. No other complaints. He was to see Dr. Ratliff referred him to the emergency room. No chest pain or dyspnea his right leg is bigger than his left leg, patient states this is a chronic situation that is been 4 years vital signs stable and patient is afebrile.no leukocytosis with WBC 8.5K, INR is 2.9,BMP and liver enzymes were unremarkable. Right leg x-ray showing soft tissue wound with no definitive destructive process by radiologist on admission patient was started on vancomycin Dr. Ratliff has been consulted, 01/08/2020 Patient cellulitis of the lower extremity is significantly improving with less discharge. vitals are stable.INR 2.5 which is therapeutic at sodium 135, creatinine normal, sugar is controlled. Infectious disease input is appreciated. Continue with cefepime Possible discharge in 24-48 hours the patient continued to improve 01/09/2020 Patient still treated for bilateral lower extremity cellulitis and wounds with gradual improvement. While he is on cefepime. No fever. INR several at 2.5 Discussed the case with physical therapy for possible need for subacute rehab as he is on blood thinner, obese with neck cellulitis 01/10/2020 Patient continued to improve gradually regarding his bilateral leg to celluliti s. Continue with cefepime INR is 2.6 Patient is refusing rehab if needed, also his refusing home health care, patient is counseled Objective - Vital Signs Vital signs: Vital Signs Temp 97.6 F 01/10/20 08:10 Pulse 72 01/10/20 08:10 Resp 16 01/10/20 08:10 BP 128/70 01/10/20 08:10 Pulse Ox 94 L 01/10/20 08:10 Intake & Output 01/09/20 01/10/20 01/10/20 18:59 06:59 18:59 Intake Total 500 Output Total 400 Balance 100 Intake: Intake, IV Titration 100 Amount Cefepime 2 gm In Sodium 100 Chloride 0.9% 100 ml @ 200 mls/hr IVPB Q12HR [facility] Rx#:[id number] Oral 400 Output: Urine 400 Other: Voiding Method Urinal Urinal # Voids 3 1 - Exam GENERAL: The patient is alert and oriented x3, not in any acute distress.obese HEENT: Pupils are round and equally reacting to light. EOMI. No scleral icterus. No conjunctival pallor. Normocephalic, atraumatic. No pharyngeal erythema. No thyromegaly. CARDIOVASCULAR: S1 and S2 present. No murmurs, rubs, or gallops. PULMONARY: Chest is clear to auscultation, no wheezing or crackles. ABDOMEN: Soft, nontender, nondistended, normoactive bowel sounds. No palpable organomegaly. MUSCULOSKELETAL: No joint swelling or deformity. -EXTREMITIES: No cyanosis, clubbing, or pedal edema. right lower leg ulcer on the lateral side and left lower leg ulcer on the medial sideMollie surrounding cellulitis, improving significantly NEUROLOGICAL: Gross neurological examination did not reveal any focal deficits. SKIN: No rashes. No petechiae - Labs CBC & Chem 7: 01/08/20 08:08 01/08/20 08:08 Labs: Abnormal Lab Results - Last 24 Hours (Table) 01/09/20 01/09/20 01/09/20 Range/Units 12:01 17:09 20:21 PT (9.0-12.0) sec INR (<1.2) POC Glucose (mg/dL) 194 H 154 H 168 H (75-99) mg/dL 01/10/20 01/10/20 01/10/20 Range/Units 06:37 06:53 11:36 PT 25.1 H (9.0-12.0) sec INR 2.6 H (<1.2) POC Glucose (mg/dL) 139 H 169 H (75-99) mg/dL Microbiology - Last 24 Hours (Table) 01/06/20 17:45 Blood Culture - Preliminary Blood No Growth after 72 hours Assessment and Plan Assessment: bilateral leg cellulitis, failed outpatient treatment. Associated with yellow drainage from right lower leg ulcer on the lateral side and left lower leg ulcer on the medial side DVT and pulmonary embolism,on warfarin,clotting disorder with factor V-leiden migraine Hypothyroidism Hypertension Diabetes mellitus asthma previous infection with MRSA obesity with BMI of 43 Plan: this is a pleasant 74 years old male who presents with a right leg cellulitis and leg wound, continue with antibiotic vancomycin monitor renal function closely.follow-up with Dr. Ratliff from surgery.consult infectious disease Labs and medication were reviewed.. Continue same treatment. Continue with symptomatic treatment. Resume home medication. Monitor lytes and vitals. DVT and GI prophylaxis. Further recommendations of the clinical course of the patient DVT prophylaxis: on warfarin GI Prophylaxis: Pepcid PT/OT: Pending Prognosis is guarded
--- NOTE | 2020-01-10 16:37 | PN ---
PROGRESS NOTE DATE OF SERVICE: 01/10/2020 REASON FOR FOLLOWUP: Bilateral lower extremity venous stasis ulcer and cellulitis. INTERVAL HISTORY: The patient is currently afebrile. Patient has been breathing comfortably. Denies having any chest pain or shortness of breath or cough. No nausea, vomiting or pain to the lower extremity. PHYSICAL EXAMINATION: Blood pressure 128/78 with a pulse of 72, temp 97.6. He is 94% on room air. General description is an elderly male up in the bed in no distress. Respiratory system: Unlabored breathing, clear to auscultation anteriorly. Heart S1, S2. Regular rate and rhythm. Abdomen soft, no tenderness. Legs are currently wrapped up. Swelling persists. Redness improved. No drainage. DIAGNOSTIC IMPRESSION AND PLAN: Patient with bilateral lower extremity wound with secondary cellulitis. The patient responding cefepime. To continue local care with dry Aquacel dressing and monitor clinical course closely. Continue supportive care. MMODL / IJN: [id number] /
[2020-01-10 17:00] LABS: Glucose,Whole Blood 123 mg/dL (75-99)
[2020-01-10] MEDS ORDERED: WARFARIN 7.5 MG TAB PO ONE (18:00)
[2020-01-10 20:16] LABS: Glucose,Whole Blood 201 mg/dL (75-99)
[2020-01-11] MEDS: HYDROmorphone 0.5 MG/0.5 ML SYRINGE IVP PRN ×3 (01:56→17:12)
[2020-01-11] MEDS: LEVOTHYROXINE 100 MCG TAB PO SCH (05:33)
[2020-01-11 06:53] LABS: Glucose,Whole Blood 117 mg/dL (75-99)
[2020-01-11] MEDS: INSULIN ASPART (NovoLOG) 100 UNIT/ML VIAL SQ SCH ×4 (08:18→20:35)
[2020-01-11] MEDS: SPIRONOLACTONE 25 MG TAB PO SCH (08:33)
[2020-01-11] MEDS: FAMOTIDINE 20 MG TAB PO SCH ×2 (08:33→20:34)
[2020-01-11] MEDS: LOSARTAN 50 MG TAB PO SCH (08:33)
[2020-01-11] MEDS: ATORVASTATIN 10 MG TAB PO SCH (08:33)
[2020-01-11] MEDS: glipiZIDE 5 MG TAB PO SCH ×2 (08:34→20:34)
[2020-01-11] MEDS: FUROSEMIDE 20 MG TAB PO SCH (08:34)
[2020-01-11] MEDS: DILTIAZEM ORAL 60 MG TAB PO SCH ×3 (08:34→20:34)
[2020-01-11] MEDS: CEFEPIME 2 GM in SODIUM CHLORIDE 0.9% 100 ML IVPB SCH ×2 (08:34→20:34)
[2020-01-11 08:39] LABS: INR 2.6 (<1.2); Prothrombin Time 25.5 sec (9.0-12.0)
--- NOTE | 2020-01-11 10:36 | P.PN ---
Subjective this is a pleasant 74 years old male with past medical history of diabetes mellitus, asthma, hypertension, DVT and pulmonary embolism,on warfarin,h ypothyroidism, migraine, clotting disorder with factor V-leiden.patient has chronic stasis dermatitis of the lower extremity and chronic ulcers for years, he states that he gets infected from time to time, for the last week he has yellowish drainage from right lower leg ulcer on the lateral side and left lower leg ulcer on the medial side. No fever. No other complaints. He was to see Dr. Ratliff referred him to the emergency room. No chest pain or dyspnea his right leg is bigger than his left leg, patient states this is a chronic situation that is been 4 years vital signs stable and patient is afebrile.no leukocytosis with WBC 8.5K, INR is 2.9,BMP and liver enzymes were unremarkable. Right leg x-ray showing soft tissue wound with no definitive destructive process by radiologist on admission patient was started on vancomycin Dr. Ratliff has been consulted, 01/08/2020 Patient cellulitis of the lower extremity is significantly improving with less discharge. vitals are stable.INR 2.5 which is therapeutic at sodium 135, creatinine normal, sugar is controlled. Infectious disease input is appreciated. Continue with cefepime Possible discharge in 24-48 hours the patient continued to improve 01/09/2020 Patient still treated for bilateral lower extremity cellulitis and wounds with gradual improvement. While he is on cefepime. No fever. INR several at 2.5 Discussed the case with physical therapy for possible need for subacute rehab as he is on blood thinner, obese with neck cellulitis 01/10/2020 Patient continued to improve gradually regarding his bilateral leg to celluliti s. Continue with cefepime INR is 2.6 Patient is refusing rehab if needed, also his refusing home health care, patient is counseled 01/11/2020 No new complaint, patient is improving while on cefepime INR today is 2.6 Objective - Vital Signs Vital signs: Vital Signs Temp 97.6 F 01/11/20 07:00 Pulse 69 01/11/20 07:00 Resp 18 01/11/20 07:00 BP 129/77 01/11/20 07:00 Pulse Ox 95 01/11/20 07:00 Intake & Output 05/16/20 05/17/20 05/17/20 18:59 06:59 18:59 Output Total 550 1600 Balance -550 -1600 Output: Urine 550 1600 Other: Voiding Method Urinal # Voids 4 - Exam GENERAL: The patient is alert and oriented x3, not in any acute distress.obese HEENT: Pupils are round and equally reacting to light. EOMI. No scleral icterus. No conjunctival pallor. Normocephalic, atraumatic. No pharyngeal erythema. No thyromegaly. CARDIOVASCULAR: S1 and S2 present. No murmurs, rubs, or gallops. PULMONARY: Chest is clear to auscultation, no wheezing or crackles. ABDOMEN: Soft, nontender, nondistended, normoactive bowel sounds. No palpable organomegaly. MUSCULOSKELETAL: No joint swelling or deformity. -EXTREMITIES: No cyanosis, clubbing, or pedal edema. right lower leg ulcer on the lateral side and left lower leg ulcer on the medial sideMollie surrounding cellulitis, improving significantly NEUROLOGICAL: Gross neurological examination did not reveal any focal deficits. SKIN: No rashes. No petechiae - Labs CBC & Chem 7: 01/08/20 08:08 01/08/20 08:08 Labs: Abnormal Lab Results - Last 24 Hours (Table) 01/10/20 01/10/20 01/10/20 Range/Units 11:36 16:57 20:15 PT (9.0-12.0) sec INR (<1.2) POC Glucose (mg/dL) 169 H 123 H 201 H (75-99) mg/dL 01/11/20 01/11/20 Range/Units 06:51 07:27 PT 25.5 H (9.0-12.0) sec INR 2.6 H (<1.2) POC Glucose (mg/dL) 117 H (75-99) mg/dL Microbiology - Last 24 Hours (Table) 01/06/20 17:45 Blood Culture - Preliminary Blood No Growth after 96 hours Assessment and Plan Assessment: bilateral leg cellulitis, failed outpatient treatment. Associated with yellow drainage from right lower leg ulcer on the lateral side and left lower leg ulcer on the medial side DVT and pulmonary embolism,on warfarin,clotting disorder with factor V-leiden migraine Hypothyroidism Hypertension Diabetes mellitus asthma previous infection with MRSA obesity with BMI of 43 Plan: this is a pleasant 74 years old male who presents with a right leg cellulitis and leg wound, continue with antibiotic vancomycin monitor renal function closely.follow-up with Dr. Ratliff from surgery.consult infectious disease Labs and medication were reviewed.. Continue same treatment. Continue with symptomatic treatment. Resume home medication. Monitor lytes and vitals. DVT and GI prophylaxis. Further recommendations of the clinical course of the patient DVT prophylaxis: on warfarin GI Prophylaxis: Pepcid PT/OT: Pending Prognosis is guarded
[2020-01-11 11:47] LABS: Glucose,Whole Blood 156 mg/dL (75-99)
[2020-01-11] MEDS: WARFARIN 7.5 MG TAB PO SCH (17:09)
[2020-01-11 17:16] LABS: Glucose,Whole Blood 129 mg/dL (75-99)
[2020-01-11 20:24] LABS: Glucose,Whole Blood 202 mg/dL (75-99)
[2020-01-12] MEDS: HYDROmorphone 0.5 MG/0.5 ML SYRINGE IVP PRN (00:03)
--- NOTE | 2020-01-12 00:41 | PN ---
PROGRESS NOTE DATE OF SERVICE: 01/11/2020 REASON FOR FOLLOWUP: Bilateral lower extremity venous stasis ulcer and cellulitis. INTERVAL HISTORY: The patient is currently afebrile. Patient is breathing comfortably. Patient denies having any chest pain or cough. No nausea. No vomiting. No abdominal pain. Overall pain and discomfort to the left leg has improved. PHYSICAL EXAMINATION: Blood pressure 134/78 with a pulse of 72, temperature 97.7. He is 94% on room air. General description is an elderly male lying in bed in no distress. RESPIRATORY SYSTEM: Unlabored breathing, clear to auscultation anteriorly. HEART: S1, S2. Regular rate and rhythm. ABDOMEN: Soft, no tenderness. Leg swelling persists, but redness has much improved. healing up. LABS: No new labs have been obtained today. DIAGNOSTIC IMPRESSION AND PLAN: Patient has bilateral lower extremity venous stasis ulcer with secondary cellulitis. Overall clinical improvement on cefepime. Local wound care with dry Aquacel Silver dressing. Finish therapy with oral Keflex and local wound care as ordered. Continue with supportive care. MMODL / IJN: [id number] /
[2020-01-12] MEDS: LEVOTHYROXINE 100 MCG TAB PO SCH (05:38)
[2020-01-12 07:21] LABS: Glucose,Whole Blood 127 mg/dL (75-99)
[2020-01-12] MEDS: INSULIN ASPART (NovoLOG) 100 UNIT/ML VIAL SQ SCH ×4 (07:33→21:43)
[2020-01-12] MEDS: glipiZIDE 5 MG TAB PO SCH ×2 (08:24→21:43)
[2020-01-12] MEDS: FUROSEMIDE 20 MG TAB PO SCH (08:24)
[2020-01-12] MEDS: SPIRONOLACTONE 25 MG TAB PO SCH (08:24)
[2020-01-12] MEDS: FAMOTIDINE 20 MG TAB PO SCH ×2 (08:24→21:42)
[2020-01-12] MEDS: LOSARTAN 50 MG TAB PO SCH (08:24)
[2020-01-12] MEDS: ATORVASTATIN 10 MG TAB PO SCH (08:24)
[2020-01-12] MEDS: DILTIAZEM ORAL 60 MG TAB PO SCH ×3 (08:24→21:43)
[2020-01-12] MEDS: CEFEPIME 2 GM in SODIUM CHLORIDE 0.9% 100 ML IVPB SCH ×2 (08:26→12:26)
[2020-01-12 08:35] LABS: INR 2.6 (<1.2); Prothrombin Time 25.4 sec (9.0-12.0)
[2020-01-12 11:51] LABS: Glucose,Whole Blood 147 mg/dL (75-99)
--- NOTE | 2020-01-12 15:03 | P.PN ---
Subjective this is a pleasant 74 years old male with past medical history of diabetes mellitus, asthma, hypertension, DVT and pulmonary embolism,on warfarin,h ypothyroidism, migraine, clotting disorder with factor V-leiden.patient has chronic stasis dermatitis of the lower extremity and chronic ulcers for years, he states that he gets infected from time to time, for the last week he has yellowish drainage from right lower leg ulcer on the lateral side and left lower leg ulcer on the medial side. No fever. No other complaints. He was to see Dr. Ratliff referred him to the emergency room. No chest pain or dyspnea his right leg is bigger than his left leg, patient states this is a chronic situation that is been 4 years vital signs stable and patient is afebrile.no leukocytosis with WBC 8.5K, INR is 2.9,BMP and liver enzymes were unremarkable. Right leg x-ray showing soft tissue wound with no definitive destructive process by radiologist on admission patient was started on vancomycin Dr. Ratliff has been consulted, 01/08/2020 Patient cellulitis of the lower extremity is significantly improving with less discharge. vitals are stable.INR 2.5 which is therapeutic at sodium 135, creatinine normal, sugar is controlled. Infectious disease input is appreciated. Continue with cefepime Possible discharge in 24-48 hours the patient continued to improve 01/09/2020 Patient still treated for bilateral lower extremity cellulitis and wounds with gradual improvement. While he is on cefepime. No fever. INR several at 2.5 Discussed the case with physical therapy for possible need for subacute rehab as he is on blood thinner, obese with neck cellulitis 01/10/2020 Patient continued to improve gradually regarding his bilateral leg to celluliti s. Continue with cefepime INR is 2.6 Patient is refusing rehab if needed, also his refusing home health care, patient is counseled 01/11/2020 No new complaint, patient is improving while on cefepime INR today is 2.6 01/12/2020 Patient bilateral lower extremity cellulitis is improving on cefepime, Dr. Dennison placed him on Keflex oral antibiotic and we going to monitor him tomorrow INR is 2.6 Patient is refusing to leave the hospital even though he was switched to oral antibiotics Objective - Vital Signs Vital signs: Vital Signs Temp 97.3 F L 01/12/20 14:08 Pulse 70 01/12/20 14:08 Resp 20 01/12/20 14:08 BP 169/75 01/12/20 14:08 Pulse Ox 93 L 01/12/20 14:08 Intake & Output 01/11/20 01/12/20 01/12/20 18:59 06:59 18:59 Intake Total 1080 560 Output Total 600 400 600 Balance 480 -400 -40 Intake: Oral 1080 560 Output: Urine 600 400 600 Other: Voiding Method Urinal Urinal # Voids 1 1 - Exam GENERAL: The patient is alert and oriented x3, not in any acute distress.obese HEENT: Pupils are round and equally reacting to light. EOMI. No scleral icterus. No conjunctival pallor. Normocephalic, atraumatic. No pharyngeal erythema. No thyromegaly. CARDIOVASCULAR: S1 and S2 present. No murmurs, rubs, or gallops. PULMONARY: Chest is clear to auscultation, no wheezing or crackles. ABDOMEN: Soft, nontender, nondistended, normoactive bowel sounds. No palpable organomegaly. MUSCULOSKELETAL: No joint swelling or deformity. -EXTREMITIES: No cyanosis, clubbing, or pedal edema. right lower leg ulcer on the lateral side and left lower leg ulcer on the medial sideMollie surrounding cellulitis, improving significantly NEUROLOGICAL: Gross neurological examination did not reveal any focal deficits. SKIN: No rashes. No petechiae - Labs CBC & Chem 7: 01/08/20 08:08 01/08/20 08:08 Labs: Abnormal Lab Results - Last 24 Hours (Table) 01/11/20 01/11/20 01/12/20 Range/Units 17:13 20:22 07:19 PT (9.0-12.0) sec INR (<1.2) POC Glucose (mg/dL) 129 H 202 H 127 H (75-99) mg/dL 01/12/20 01/12/20 Range/Units 07:58 11:40 PT 25.4 H (9.0-12.0) sec INR 2.6 H (<1.2) POC Glucose (mg/dL) 147 H (75-99) mg/dL Microbiology - Last 24 Hours (Table) 01/06/20 17:45 Blood Culture - Preliminary Blood No Growth after 120 hours Assessment and Plan Assessment: bilateral leg cellulitis, failed outpatient treatment. Associated with yellow drainage from right lower leg ulcer on the lateral side and left lower leg ulcer on the medial side DVT and pulmonary embolism,on warfarin,clotting disorder with factor V-leiden migraine Hypothyroidism Hypertension Diabetes mellitus asthma previous infection with MRSA obesity with BMI of 43 Plan: this is a pleasant 74 years old male who presents with a right leg cellulitis and leg wound, continue with antibiotic vancomycin monitor renal function closely.follow-up with Dr. Ratliff from surgery.consult infectious disease Labs and medication were reviewed.. Continue same treatment. Continue with symptomatic treatment. Resume home medication. Monitor lytes and vitals. DVT and GI prophylaxis. Further recommendations of the clinical course of the p atient DVT prophylaxis: on warfarin GI Prophylaxis: Pepcid PT/OT: Pending Prognosis is guarded
[2020-01-12] MEDS: CEPHALEXIN 500 MG CAP PO SCH ×2 (16:49→21:43)
[2020-01-12 17:02] LABS: Glucose,Whole Blood 134 mg/dL (75-99)
[2020-01-12] MEDS: WARFARIN 7.5 MG TAB PO SCH (17:14)
--- NOTE | 2020-01-12 19:30 | PN ---
PROGRESS NOTE DATE OF SERVICE: 01/12/2020 REASON FOR FOLLOWUP: Bilateral lower extremity venostasis ulcers and cellulitis. INTERVAL HISTORY: The patient is currently afebrile. The patient has been breathing comfortably. Denies having any chest pain or cough. Still has significant swelling in the legs. Overall pain and discomfort have decreased. PHYSICAL EXAMINATION: Blood pressure 169/75 with a pulse of 70, temperature 97.3. He is 93% on room air. General description is an elderly male lying in bed in no distress. RESPIRATORY SYSTEM: Unlabored breathing. Clear to auscultation anteriorly. HEART: S1, S2. Regular rate and rhythm. ABDOMEN: Soft. No tenderness. Legs are currently wrapped up. No obvious drainage on the dressing. DIAGNOSTIC IMPRESSION AND PLAN: Patient with bilateral lower extremity venostasis ulcers with secondary cellulitis in this patient who has no IV access. Antibiotic was switched over to oral Keflex, and if the patient continues to improve, he will finish therapy with oral Keflex along with a dry Aquacel Silver dressing and Zeus wrap to the leg. Continue with supportive care. MMODL / IJN: [id number] /
[2020-01-12 20:45] LABS: Glucose,Whole Blood 146 mg/dL (75-99)
[2020-01-13] MEDS: LEVOTHYROXINE 100 MCG TAB PO SCH (05:45)
[2020-01-13 07:45] LABS: INR 2.6 (<1.2)
[2020-01-13 07:46] LABS: Prothrombin Time 25.7 sec (9.0-12.0)
[2020-01-13 07:59] LABS: Glucose,Whole Blood 131 mg/dL (75-99)
[2020-01-13] MEDS: INSULIN ASPART (NovoLOG) 100 UNIT/ML VIAL SQ SCH ×2 (08:00→12:59)
[2020-01-13] MEDS: FAMOTIDINE 20 MG TAB PO SCH (08:06)
[2020-01-13] MEDS: SPIRONOLACTONE 25 MG TAB PO SCH (08:06)
[2020-01-13] MEDS: LOSARTAN 50 MG TAB PO SCH (08:06)
[2020-01-13] MEDS: FUROSEMIDE 20 MG TAB PO SCH (08:06)
[2020-01-13] MEDS: glipiZIDE 5 MG TAB PO SCH (08:06)
[2020-01-13] MEDS: DILTIAZEM ORAL 60 MG TAB PO SCH (08:06)
[2020-01-13] MEDS: CEPHALEXIN 500 MG CAP PO SCH (08:06)
[2020-01-13] MEDS: ATORVASTATIN 10 MG TAB PO SCH (08:06)
[2020-01-13 08:16] VITALS: BP 163/73; PULSE 88; RESP 20; TEMP 98.1
[2020-01-13 08:22] VITALS: BMI 43.4
[2020-01-13 11:47] LABS: Glucose,Whole Blood 137 mg/dL (75-99)
--- NOTE | 2020-01-13 12:41 | P.DS ---
Providers Date of admission: 01/06/20 18:58 Attending physician: Yi Cates Consults: 01/06/20 18:19 Consult Physician Urgent Consulting Provider: Ishan Ratliff Consult Reason/Comments: chronic wounds Do you want consulting provider notified?: Yes 01/07/20 09:41 Consult Physician Urgent Consulting Provider: Charisma Silva Consult Reason/Comments: bilateral leg cellulitis Do you want consulting provider notified?: Yes Primary care physician: Tatyana Mora [facility] Course: Diagnoses: bilateral leg cellulitis, failed outpatient treatment. Associated with yellow drainage from right lower leg ulcer on the lateral side and left lower leg ulcer on the medial side DVT and pulmonary embolism,on warfarin,clotting disorder with factor V-leiden migraine Hypothyroidism Hypertension Diabetes mellitus asthma previous infection with MRSA obesity with BMI of 43 Hospital course: this is a pleasant 74 years old male with past medical history of diabetes mellitus, asthma, hypertension, DVT and pulmonary embolism on warfarin,hypothyroidism, migraine, clotting disorder with factor V- leiden.patient has chronic stasis dermatitis of the lower extremity and chronic ulcers for years, for the primary or week he has yellowish drainage from right lower leg ulcer on the lateral side and left lower leg ulcer on the medial side. Right leg x-ray showing soft tissue wound with no definitive destructive process by radiologist. Infectious disease service evaluated the patient, patient was started on cefepime and he showed significant interval improvement in his cellulitis and drainage. No other new symptoms Patient was cleared for discharge by infectious disease service. Patient will be discharge on antibiotics as per ID team and patient will be discharged on Keflex for 7 days Problems and management plan were discussed with the patient and he verbalized understanding and acceptance Patient was found stable and can be discharged home however he needs follow-up as an outpatient. Patient was instructed to follow up with PCP within one week Dr. Tatyana mcneal and patient agrees Gen: patient is a AAOx3, no distress CVS: S1-S2, RRR, no murmur Lungs: B/L CTA, no wheezing Abdomen: soft, no distention, no tenderness, positive bowel sounds -EXTREMITIES: No cyanosis, clubbing, or pedal edema. Several ulcers on the anterior lateral surface of the right leg, with surrounding cellulitis, and smal ler ulcers and cellulitis of the left leg. Significantly improved Time spent more than 35 minutes Patient Condition at Discharge: Fair Plan - Discharge Summary Discharge Rx Participant: No New Discharge Prescriptions: New Cephalexin [Keflex] 500 mg PO TID 7 Days #21 cap Continue Omeprazole [PriLOSEC] 20 mg PO DAILY Atorvastatin [Lipitor] 10 mg PO DAILY Diltiazem HCl 120 mg PO TID glipiZIDE XL [Glucotrol XL] 10 mg PO DAILY Spironolactone 50 mg PO DAILY Levothyroxine Sodium [Synthroid] 200 mcg PO DAILY HYDROcodone/APAP 5-325MG [[place] 5-325] 1 tab PO BID PRN PRN Reason: Pain Montelukast Sodium [Singulair] 10 mg PO HS Losartan [Cozaar] 50 mg PO DAILY Furosemide [Lasix] 20 mg PO DAILY #30 tab Warfarin Sodium [Coumadin] 7.5 mg PO HS Cephalexin [Keflex] 500 mg PO Q6H Albuterol Sulfate [Ventolin HFA] 2 puff INHALATION RT-Q4H PRN PRN Reason: Shortness Of Breath Discontinued Amoxicillin 875 mg PO Q12H Discharge Medication List Omeprazole [PriLOSEC] 20 mg PO DAILY 12/29/13 [History] Atorvastatin [Lipitor] 10 mg PO DAILY 10/04/17 [History] Diltiazem HCl 120 mg PO TID 11/21/18 [History] HYDROcodone/APAP 5-325MG [[place] 5-325] 1 tab PO BID PRN 10/20/19 [History] Levothyroxine Sodium [Synthroid] 200 mcg PO DAILY 10/20/19 [History] Losartan [Cozaar] 50 mg PO DAILY 10/20/19 [History] Montelukast Sodium [Singulair] 10 mg PO HS 10/20/19 [History] Spironolactone 50 mg PO DAILY 10/20/19 [History] glipiZIDE XL [Glucotrol XL] 10 mg PO DAILY 10/20/19 [History] Furosemide [Lasix] 20 mg PO DAILY #30 tab 10/26/19 [Rx] Albuterol Sulfate [Ventolin HFA] 2 puff INHALATION RT-Q4H PRN 01/06/20 [History] Cephalexin [Keflex] 500 mg PO Q6H 01/06/20 [History] Warfarin Sodium [Coumadin] 7.5 mg PO HS 05/12/20 [History] Cephalexin [Keflex] 500 mg PO TID 7 Days #21 cap 01/13/20 [Rx] Follow up Appointment(s)/Referral(s): Tatyana Mora MD [Primary Care Provider] - 1-2 days [facility] [NON-STAFF] - 1 Week Activity/Diet/Wound Care/Special Instructions: Heart healthy diet Activities Limited till you see your doctor
--- NOTE | 2020-01-13 14:07 | PN ---
PROGRESS NOTE DATE OF SERVICE: 01/13/2020 REASON FOR FOLLOWUP: Bilateral extremity venostasis ulcer and cellulitis. INTERVAL HISTORY: The patient is currently afebrile. Patient is breathing comfortably. No chest pain, shortness of breath or cough. No abdominal pain or any worsening in the lower leg. Swelling persists. The redness has resolved. No drainage. PHYSICAL EXAMINATION: Blood pressure 133/73 with a pulse of 88, temperature 98.1, he is 92% on room. General description is an elderly male, lying in bed in no distress. RESPIRATORY SYSTEM: Unlabored breathing, clear to auscultation anteriorly. HEART: S1, S2. Regular rate and rhythm. ABDOMEN: Soft, no tenderness. Leg swelling persists, redness resolved. The wounds are drying out. LABS: INR is 2.6. DIAGNOSTIC IMPRESSION AND PLAN: Patient with bilateral lower extremity venostasis ulcer and cellulitis, overall clinical improvement. The patient to finish therapy with oral Keflex. Local care with dry Aquacel Silver dressing and Zeus wrap to keep the swelling down. Continue supportive care. MMODL / IJN: [id number] /
== END 2020-01-13 14:25 | disposition home or self-care (01) | DRG 603 ==
LOC: EC 16:45 → 4SSUR 18:58
PROVIDERS: ADMIT Internal Medicine; ATTEND Internal Medicine
DX: L03.115 Cellulitis of right lower limb (principal); D68.2 Hereditary deficiency of other clotting factors; L97.829 Non-pressure chronic ulcer of other part of left lower leg with unspecified severity; L97.819 Non-pressure chronic ulcer of other part of right lower leg with unspecified severity; Z68.41 Body mass index [BMI] 40.0-44.9, adult; L03.116 Cellulitis of left lower limb; I87.2 Venous insufficiency (chronic) (peripheral); E03.9 Hypothyroidism, unspecified; E66.9 Obesity, unspecified; G43.909 Migraine, unspecified, not intractable, without status migrainosus; I10 Essential (primary) hypertension; J45.909 Unspecified asthma, uncomplicated; K21.9 Gastro-esophageal reflux disease without esophagitis; M19.90 Unspecified osteoarthritis, unspecified site; E11.9 Type 2 diabetes mellitus without complications; Z11.59 Encounter for screening for other viral diseases; Z87.442 Personal history of urinary calculi; Z87.891 Personal history of nicotine dependence; Z86.718 Personal history of other venous thrombosis and embolism; Z86.711 Personal history of pulmonary embolism; Z86.14 Personal history of Methicillin resistant Staphylococcus aureus infection; Z85.828 Personal history of other malignant neoplasm of skin; Z87.01 Personal history of pneumonia (recurrent); Z79.01 Long term (current) use of anticoagulants; Z79.84 Long term (current) use of oral hypoglycemic drugs; Z79.890 Hormone replacement therapy; Z79.899 Other long term (current) drug therapy; Z88.8 Allergy status to other drugs, medicaments and biological substances; Z91.041 Radiographic dye allergy status; Z91.040 Latex allergy status; Z88.5 Allergy status to narcotic agent; Z91.013 Allergy to seafood; Z90.49 Acquired absence of other specified parts of digestive tract; Z82.49 Family history of ischemic heart disease and other diseases of the circulatory system; Z82.61 Family history of arthritis
CPT/HCPCS: 36415; 80048; 80053; 85025; 85610; 87040; 87635; 96365; 96366; 96367; 96375; 99284

== ENCOUNTER → 2020-02-19 | Outpatient (CLI) | payer MEDICARE, BC ==
--- NOTE | 2020-02-19 14:49 | MM ---
Reason for exam: clinical finding. History: Patient history of other cancer. Taking other hormone beginning at age 73. Physical Findings: Nurse Summary: 1.5cm nodule in the right breast at the nipple and a 3cm nodule in the left breast at the nipple (nurse dw). MG 3D Diag Mammo W/Cad ANYI Bilateral CC and MLO view(s) were taken. The breast tissue is heterogeneously dense. This may lower the sensitivity of mammography. There is no discrete abnormality. These results were verbally communicated with the patient and result sheet given to the patient on 02/19/20. ASSESSMENT: Benign, BI-RAD 2 RECOMMENDATION: Clinical management of both breasts. Manage patient on a clinical basis.
--- NOTE | 2020-02-19 14:51 | USB ---
Reason for exam: clinical finding. History: Patient history of other cancer. Taking other hormone beginning at age 73. US Breast Limited BILAT Left limited breast ultrasound including focal area of concern, retroareolar and axilla demonstrates a 2.5cm hypoechoic lesion at the posterior nipple. Right limited breast ultrasound including focal area of concern, retroareolar and axilla demonstrates a 1.4cm hypoechoic lesion at the posterior nipple. These results were verbally communicated with the patient and result sheet given to the patient on 02/19/20. ASSESSMENT: Benign, BI-RAD 2 RECOMMENDATION: Clinical management of both breasts. Manage patient on a clinical basis.
== END | disposition home or self-care (01) ==
LOC: RADMAMWWP 12:50
PROVIDERS: ATTEND Family Medicine
DX: N63.42 Unspecified lump in left breast, subareolar (principal); N64.4 Mastodynia
CPT/HCPCS: 77066; 76642; G0279; 77062

== ENCOUNTER → 2020-03-08 | Outpatient (CLI) | payer MEDICARE, BC ==
[2020-03-08 19:30] LABS: INR 3.03 (0.90-1.11); Prothrombin Time 31.1 sec (9.9-11.9)
== END | disposition home or self-care (01) ==
LOC: LABWHC1 14:18
PROVIDERS: ATTEND Family Medicine
DX: E03.9 Hypothyroidism, unspecified (principal); Z86.711 Personal history of pulmonary embolism
CPT/HCPCS: 36415; 84443; 85610

== ENCOUNTER → 2020-03-10 | Outpatient (CLI) | payer MEDICARE, BC ==
--- NOTE | 2020-03-10 10:34 | CT ---
EXAMINATION TYPE: CT hip RT wo con DATE OF EXAM: 03/10/2020 COMPARISON: None HISTORY: swelling, pain posterior thigh just above knee CT DLP: 1328.1 mGycm Automated exposure control for dose reduction was used. Helical acquisition through the right thigh FINDINGS: There is subcutaneous edema change present within the right lower extremity. Dense vascular calcifica tions present. Femur shows no periosteal reaction to suggest osteomyelitis. There is some calcificati on within the musculature of the proximal right lower extremity which may represent heterotopic bone or dystrophic indication. No focal fluid collection to suggest abscess. Varicosities are present within the subcutaneous fat. F atty replacement of the musculature within the right lower extremity. IMPRESSION: CORRELATE FOR CELLULITIS.
== END | disposition home or self-care (01) ==
LOC: RADCTMAIN 07:44
PROVIDERS: ATTEND Surgery Vascular Surgery
DX: I87.2 Venous insufficiency (chronic) (peripheral) (principal); I87.333 Chronic venous hypertension (idiopathic) with ulcer and inflammation of bilateral lower extremity; E66.01 Morbid (severe) obesity due to excess calories; E13.621 Other specified diabetes mellitus with foot ulcer; L02.415 Cutaneous abscess of right lower limb

== ENCOUNTER 2020-03-16 09:45 | Day surgery (SDC) | payer MEDICARE, BC ==
[2020-03-12 16:27] VITALS: BMI 43.4
[~2020-03-16 09:45] MED LIST: LACTATED RINGERS 1,000 ML IV SCH
[2020-03-16 10:13] VITALS: TEMP 97.5
[2020-03-16 10:14] LABS: Glucose,Whole Blood 152 mg/dL (75-99)
[2020-03-16 10:41] LABS: INR 3.8 (<1.2); Partial Thromboplastin Time 39.9 sec (22.0-30.0); Prothrombin Time 36.9 sec (9.0-12.0)
[2020-03-16] MEDS ORDERED: LIDOCAINE 4% (PF) 5 ML AMP ONE (10:52)
[2020-03-16] MEDS ORDERED: MIDAZOLAM 2 MG/2 ML VIAL ONE (10:52)
[2020-03-16] MEDS ORDERED: IV FLUID CONTINUATION 1,000 ML IV ONE (11:16)
[2020-03-16 11:19] VITALS: BP 122/75; PULSE 72; RESP 16
--- NOTE | 2020-03-16 11:42 | P.PCN ---
Date of Procedure: 03/16/20 Procedure(s) Performed: PREOPERATIVE DIAGNOSIS : Lumbar spondylosis with Facet Arthropathy without myelopathy POSTOPERATIVE DIAGNOSIS: same PROCEDURE: First Diagnostic lumbar medial branch block with fluoroscopy at L2, L3, L4, L5 right side which covers facets L3-4, L4-5 and L5-S1 ANESTHESIA: Local anesthetic; moderate IV sedation with Versed, sedation time 9 minutes Fluoroscopy was used for the procedure and images were saved in the radiology portion of the chart. Surgeon: Zoie Leong MD PROCEDURE INDICATION: Lumbar back pain without radiculopathy, not responsive to conservative management. PROCEDURE DESCRIPTION: the patient was seen and identified in the preop holding area , risks and benefits and possible complications of the procedure and alternatives were discussed with the patient, and the patient agreed to proceed with the procedure and signed the consent . IV was started , vital signs were monitored during the procedure and fluoroscopy was used to maximize the benefit and accuracy of the needle placement, and sedation was given to decrease patient anxiety. Patient was taken to the procedure room and placed in prone position. The lumbar region was prepped using chlorhexidineX-2. Under strict sterile technique using AP fluoroscopy the bilateral sacral ala were identified and using ipsilateral oblique fluoroscopy ,the junction of the transverse process and the superior articulating process of the L3, L4, L5 vertebra which corresponds to the fluoroscopy image of the eye of the Manjit dog for the medial branches were identified. Subsequently, after local infiltration of skin with lidocaine 1% 0.2 mL at each level , a 22-gauge 5 inch Quincke-type needle was placed at the junction of the base of the transverse process and the superior articular process at the appropriate level as well as the sacral ala, and the needle was advanced until the periosteum contacted, needle placement confirmed with AP and oblique fluoroscopy,and after negative aspiration, 0.5 mL of lidocaine 4% was injected at each level and the needle subsequently removed . At the end of the procedure and the needles were removed and a bandage applied after the skin was cleaned. The patient was taken to recovery room in stable condition and monitors in the recovery room for 20-30 minutes and discharged home in stable condition after discharge criteria met and patient will follow up in for repeat procedure in 2 weeks EBL: Minimal COMPLICATION: None. Of note, contrast was not used for the procedure as the patient is ALLERGIC to iodine
--- NOTE | 2020-03-16 16:50 | FL ---
EXAMINATION TYPE: FL guided pain mgmt statistic DATE OF EXAM: 03/16/2020 COMPARISON: NONE HISTORY: Lumbar facet injections TECHNIQUE: Fluoroscopy. FINDINGS: Fluoroscopic guidance was provided during procedure for performing physician in the operat ing room. A total of 6 seconds of fluoroscopic time was utilized during the procedure and 2 spot christine ges was acquired. Please see operative report by performing physician for additional details. IMPRESSION: As Above.
== END 2020-03-16 11:42 | disposition home or self-care (01) ==
LOC: ORPAIN 09:45
PROVIDERS: ATTEND Anesthesiology
DX: M47.816 Spondylosis without myelopathy or radiculopathy, lumbar region (principal); E11.9 Type 2 diabetes mellitus without complications; Z91.040 Latex allergy status; Z88.5 Allergy status to narcotic agent; Z88.8 Allergy status to other drugs, medicaments and biological substances; Z91.041 Radiographic dye allergy status; Z79.01 Long term (current) use of anticoagulants
CPT/HCPCS: 85610; 85730; 64493; 64494; 64495; J2001; J2250

== ENCOUNTER → 2020-04-05 | Outpatient (CLI) | payer MEDICARE, BC ==
[2020-04-05 23:58] LABS: INR 2.36 (0.90-1.11); Prothrombin Time 24.4 sec (9.9-11.9)
[2020-04-06 02:44] LABS: Hemoglobin A1C 8.3 % (4.0-6.0)
== END | disposition home or self-care (01) ==
LOC: LABWHC1 14:33
PROVIDERS: ATTEND Family Medicine
DX: E11.9 Type 2 diabetes mellitus without complications (principal); Z86.711 Personal history of pulmonary embolism
CPT/HCPCS: 36415; 83036; 85610

== ENCOUNTER 2020-04-06 08:56 | Day surgery (SDC) | payer MEDICARE, BC ==
[2020-03-31 15:39] VITALS: BMI 41.9
[2020-04-06 09:12] VITALS: TEMP 97.2
[2020-04-06 09:42] LABS: Glucose,Whole Blood 153 mg/dL (75-99)
[2020-04-06] MEDS ORDERED: fentaNYL (PF) 50 MCG/ML 2 ML AMP ONE (09:44)
[2020-04-06] MEDS ORDERED: MIDAZOLAM 2 MG/2 ML VIAL ONE (09:44)
[2020-04-06] MEDS ORDERED: ROPIVACAINE 5MG/ML 20ML VIAL ONE (09:44)
--- NOTE | 2020-04-06 10:07 | P.PCN ---
Date of Procedure: 04/06/20 Procedure(s) Performed: PREOPERATIVE DIAGNOSIS : 1- Lumbar spondylosis with Facet Arthropathy without myelopathy . 2- Lumber degenerative disc disease POSTOPERATIVE DIAGNOSIS: 1- Lumbar spondylosis with Facet Arthropathy without myelopathy . 2- Lumber degenerative disc disease PROCEDURE: Diagnostic Right L2 ,L3 , L4 , and L5 medial branch block under fluoroscopy guidance(fluoroscopy images available in the radiology Department ) # 2nd ( To target the facet joint between Right L3-4 , L4-5 , and L5-S1 ) ANESTHESIA:, moderate sedation with intravenous Versed 2 mg and Fentanyl 100 mcg. EBL: Minimal COMPLICATION: None. IV FLUIDS: 100 mL of normal saline. PROCEDURE INDICATION: Chronic low back pain secondary to Facet arthropathy unresponsive to conservative treatment. PROCEDURE DESCRIPTION: the patient was seen and identified in the preop holding area , risks and benefits and possible complications of the procedure and alternative were discussed with the patient, and the patient agreed to proceed with the procedure and signed the consent IV was started and vital signs monitored during the procedure and fluoroscopy was used to maximize the benefit and accuracy of the needle placement, and sedation was given to decrease patient anxiety, patient was taken to the procedure room and placed in prone position vital signs monitored in the back prepped with chlorhexidine X3 then under strict sterile technique using a right oblique fluoroscopy ,the junction of the transverse process and the superior articulating process of the right L2 ,L3 , L4 , and L5 vertebra which corresponding to the fluoroscopy image of the eye of the Manjit dog on the block side for the medial branches and subsequently , after local infiltration of skin and subcu tissuies with Ropivacaine 0.5 % , one mL at each level ,then 22-gauge 5 inches long Quincke-type needles , 4 needle was used , each one of them placed at the junction of the base of the transverse process and the superior articular process at the appropriate level, and the needle was advanced until the periosteum contacted, needle placement confirmed with AP oblique and lateral view and after appropriate needle placement confirmed, and after negative aspiration for heme and CSF and there was no paresthesia 2 mL of Ropivacaine 0.5% ,then half mL injected at each level after negative aspiration the needle subsequently removed . At the end of the procedure and the needles removed and a bandage applied after the skin was cleaned the cleaning solution patient taken to recovery room in stable condition and monitors in the recovery room for 20-30 minutes and discharged home in stable condition after discharge criteria met and patient will follow up with the pain clinic in 2-4 weeks
[2020-04-06 10:25] VITALS: BP 106/70; PULSE 79; RESP 20
--- NOTE | 2020-04-06 10:25 | FL ---
Fluoroscopy HISTORY: Pain 42 seconds fluoroscopy time supplied to the referring clinician. 2 intraoperative C-arm images docum ent the procedure. See dictated report from anesthesia.
== END 2020-04-06 10:42 | disposition home or self-care (01) ==
LOC: ORPAIN 08:56
PROVIDERS: ATTEND Specialist
DX: G89.29 Other chronic pain (principal); M47.816 Spondylosis without myelopathy or radiculopathy, lumbar region; M51.36 Other intervertebral disc degeneration, lumbar region; Z91.040 Latex allergy status; Z88.8 Allergy status to other drugs, medicaments and biological substances; Z91.048 Other nonmedicinal substance allergy status
CPT/HCPCS: 64493; 64494; 64495; J2250; J3010; J2795; 99152

== ENCOUNTER → 2020-04-21 | Outpatient (CLI) | payer MEDICARE, BC ==
--- NOTE | 2020-04-21 14:45 | P.PN ---
Subjective Progress Note Date: 04/21/20 This is 74 years old male, with a history of severe and chronic low back pain is diagnosed with lumbar spondylosis and lumbar facet arthropathy, and lumbar radiculopathy, recently we have done diagnostic medial branch block lumbar area the first block was done in 03/16/2020 and his pain before the block was 6/10 dropped to 0/10 after the block and he got pain relief for a few days, and the second diagnostic block done in 04/06/2020 he reported that his pain before the block was 5/10 dropped to 0/10 after the block and he got relief for a few days, the pain is constant and increases with any activity Objective - Exam Physical Examinations : -Constitutiona : Cooperative , not in acute distress . -HEENT : nech : supple , no Lymphadenopathy , normal thyroid size . : eyes : no ptosis , no icterus, no photophobia . - neurologic : Cranial nerve II to XII intact , no focal neurological deffecit . -psychatric : alert , oriented X 3 , appropriate affect , intact judgment and insight . -Lymphatic : no Lymphadenopathy . - musculoskeltal : Lumber spine moter stegnth lower extremities ,thigh and legs 5/5 Right side , 5/5 Left side deep tendon reflexes : normal Knee Jerk , normal ankle Jerk lumber facet Loading Test =positive Right , negative Left Range of motion of the lumbar spine Flexion 30 degrees, extension 10 degrees strait leg raising test = negative bilaterally Fabere test= negative Assessment and Plan Plan: Lumbar spondylosis with lumbar facet arthropathy without myelopathy. Lumbar radiculopathy. Patient had a positive result after diagnostic medial branch block 2 , he had significant improvement of his pain after the block, patient will be good candidate to have RFA of the right-sided medial branch L2, L3 ,L4 ,L5 patella. The facet joint at right-sided L3 4 and L4 5 and L5-S1 Patient has to hold Coumadin for 4 days before the procedure Time with Patient: Less than 30
--- NOTE | 2020-04-21 21:16 | US ---
EXAMINATION TYPE: US scrotum with doppler. Grayscale and color Doppler Duplex imaging performed of t he scrotum. DATE OF EXAM: 04/21/2020 COMPARISON: NONE CLINICAL HISTORY: N50.812 Left testicular pain. shotting left sided pain, no swelling or injury EXAM MEASUREMENTS: TESTICLES: Right Testicle: 3.1 x 2.3 x 2.4 cm Left Testicle: 2.9 x 2.3 x 2.4 cm EPIDIDYMIS HEAD: Right Epididymis: 1.0 cm Left Epididymis: 0.7 cm Doppler performed to assess for testicular vascularity; good bilateral color flow and waveforms are s een. There is no evidence of testicular torsion. Presence of hydroceles: mild inferiorly on the left Presence of varicoceles: no IMPRESSION: 1. Minimal left hydrocele
== END | disposition home or self-care (01) ==
LOC: RADUSWWP 14:48
PROVIDERS: ATTEND Family Medicine
DX: N43.3 Hydrocele, unspecified (principal)
CPT/HCPCS: 76870; 93975; 99211

== ENCOUNTER → 2020-04-21 | Outpatient (CLI) | payer MEDICARE, BC ==
[2020-04-21 14:18] VITALS: BP 128/74; PULSE 75; RESP 16
== END | disposition home or self-care (01) ==
LOC: PNWHC3 13:10
PROVIDERS: ATTEND Specialist
DX: M47.26 Other spondylosis with radiculopathy, lumbar region (principal); M46.96 Unspecified inflammatory spondylopathy, lumbar region
CPT/HCPCS: 99211

== ENCOUNTER → 2020-05-11 | Outpatient (CLI) | payer MEDICARE, BC ==
[2020-05-11 20:03] LABS: Chol/HDL Ratio 3.74; LDL Cholesterol,Calculated 90.2 mg/dL (0.0-131.0); VLDL Calculation 13.8 mg/dL (5.00-40.00)
== END | disposition home or self-care (01) ==
LOC: LABWHC1 13:14
PROVIDERS: ATTEND Family Medicine
DX: E78.00 Pure hypercholesterolemia, unspecified (principal)
CPT/HCPCS: 36415; 80061; 84403

== ENCOUNTER 2020-05-24 15:21 | Inpatient (IN) | payer MEDICARE, BC ==
--- NOTE | 2020-05-24 17:02 | US ---
EXAMINATION TYPE: US venous doppler duplex LE RT DATE OF EXAM: 05/24/2020 4:46 PM COMPARISON: NONE CLINICAL HISTORY: swelling. Redness. On coumadin. Swelling. Hx cellulitis. SIDE PERFORMED: Right TECHNIQUE: The lower extremity deep venous system is examined utilizing real time linear array sonog luisa with graded compression, doppler sonography and color-flow sonography. VESSELS IMAGED: External Iliac Vein (EIV)- limited visualization Common Femoral Vein Deep Femoral Vein Greater Saphenous Vein * Femoral Vein Popliteal Vein Small Saphenous Vein *- not seen Proximal Calf Veins (* superficial vessels) Limited visualization due to patient body habitus and swelling Right Leg: Positive for DVT in proximal femoral vein with internal echoes seen and noncompressible . Duplicate venous system seen. IMPRESSION: There is evidence of acute deep vein thrombosis in the right femoral vein.
--- NOTE | 2020-05-24 18:47 | ED ---
General Adult HPI - General Chief complaint: Extremity Problem,Nontraumatic Stated complaint: cellulitis Time Seen by Provider: 05/24/20 15:28 Source: patient, RN notes reviewed Mode of arrival: wheelchair Limitations: no limitations - History of Present Illness Initial comments: Patient is a pleasant 75-year-old male presenting to the emergency department with Right leg pain. Patient does have history of previous cellulitis several times. Patient did see Dr. Ratliff today who recommended he come to the hospital and have ultrasound done as well as antibiotics for cellulitis. Patient states he is on Coumadin secondary to history of factor V Leiden. No chest pain or dyspnea. No fevers. - Related Data Home Medications Medication Instructions Recorded Confirmed Omeprazole [PriLOSEC] 20 mg PO DAILY 12/29/13 05/24/20 Atorvastatin [Lipitor] 10 mg PO DAILY 10/04/17 05/24/20 Diltiazem HCl 120 mg PO TID 11/21/18 05/24/20 HYDROcodone/APAP 5-325MG [[place] 1 tab PO BID PRN 10/20/19 05/24/20 5-325] Levothyroxine Sodium [Synthroid] 200 mcg PO DAILY 10/20/19 05/24/20 Losartan [Cozaar] 50 mg PO DAILY 10/20/19 05/24/20 Montelukast Sodium [Singulair] 10 mg PO HS 10/20/19 05/24/20 Spironolactone 50 mg PO DAILY 10/20/19 05/24/20 glipiZIDE XL [Glucotrol XL] 20 mg PO DAILY 10/20/19 05/24/20 Albuterol Sulfate [Ventolin HFA] 2 puff INHALATION RT-Q4H PRN 01/06/20 05/24/20 Warfarin Sodium [Coumadin] 7.5 mg PO HS 01/06/20 05/24/20 Budesonide-Formot 160-4.5 Mcg 2 puff INHALATION RT-BID 03/31/20 05/24/20 [Symbicort 160-4.5 Mcg Inhaler] Clotrimazole/Betamethasone Dip 1 applic TOPICAL DIRECTED PRN 03/31/20 05/24/20 [Lotrisone Cream] Testosterone Cypionate 1 ml IM Q30D 03/31/20 05/24/20 [Depo-Testosterone] tiZANidine HCL [Zanaflex] 4 mg PO TID 03/31/20 05/24/20 Furosemide [Lasix] 40 mg PO DAILY 05/24/20 05/24/20 Triamterene-Hctz 37.5-25Mg 1 cap PO DAILY 05/24/20 05/24/20 [Dyazide 37.5-25 Capsule] Allergies Allergy/AdvReac Type Severity Reaction Status Date / Time Iodinated Contrast Media Allergy Anaphylaxis Verified 05/24/20 19:31 iodine Allergy Anaphylaxis Verified 05/24/20 19:31 latex Allergy Unknown Verified 05/24/20 19:31 lisinopril Allergy Cough Verified 05/24/20 19:31 shellfish derived Allergy Anaphylaxis Verified 05/24/20 19:31 codeine AdvReac Rapid Verified 05/24/20 19:31 Heart Rate Review of Systems ROS Statement: Those systems with pertinent positive or pertinent negative responses have been documented in the HPI. ROS Other: All systems not noted in ROS Statement are negative. Constitutional: Denies: fever Eyes: Denies: eye pain ENT: Denies: ear pain Respiratory: Denies: cough, dyspnea Cardiovascular: Denies: chest pain Endocrine: Reports: fatigue Gastrointestinal: Denies: abdominal pain Genitourinary: Denies: dysuria Musculoskeletal: Denies: back pain Skin: Reports: as per HPI, rash Past Medical History Past Medical History: Asthma, Blood Disorder, Cancer, Diabetes Mellitus, Deep Vein Thrombosis (DVT), GERD/Reflux, GI Bleed, Hypertension, Osteoarthritis (OA), Pneumonia, Pulmonary Embolus (PE), Thyroid Disorder, Vascular Disorder Additional Past Medical History / Comment(s): occular migraines, seasonal allergies, SOB with activity, hx cellulitis, clotting disorder-Factor V- Leiden, basal cell skin ca(folicular) , received shingles vaccine and hepatits a vaccine, hypothyrodism, Type 2 diabetes, medication controlled, heart murmur, kidney stones, YSABEL History of Any Multi-Drug Resistant Organisms: MRSA Date of last positivie culture/infection: 2012 MDRO Source:: bilateral legs Past Surgical History: Cholecystectomy, Hernia Repair, Tonsillectomy Additional Past Surgical History / Comment(s): colonoscopy, basal cell carcinoma from scalp, nasal/sinus, meet filter.pilonsial cyst removed, rt index finger sx- removed calcium deposit, umbilical hernia x 2 Past Anesthesia/Blood Transfusion Reactions: No Reported Reaction Past Psychological History: No Psychological Hx Reported Smoking Status: Former smoker - Past Family History Mother Family Medical History: Coronary Artery Disease (CAD), Rheumatoid Arthritis (RA) Additional Family Medical History / Comment(s): age 70 heart problems- RA. Father Family Medical History: No Reported History Additional Family Medical History / Comment(s): age 72 General Exam Limitations: no limitations General appearance: alert, in no apparent distress, obese Head exam: Present: normocephalic Eye exam: Present: normal appearance Neck exam: Present: normal inspection Respiratory exam: Present: normal lung sounds bilaterally Cardiovascular Exam: Present: regular rate, normal rhythm GI/Abdominal exam: Present: soft. Absent: tenderness Extremities exam: Present: other (Bilateral lymphedema. Large patch of erythema right inner thigh as well as erythema of bilateral lower legs, more so on the right.) Neurological exam: Present: alert Psychiatric exam: Present: normal affect, normal mood Skin exam: Present: erythema Course Vital Signs 05/24/20 15:39 Temperature 98.0 F Pulse Rate 67 Respiratory 20 Rate Blood Pressure 144/83 O2 Sat by Pulse 97 Oximetry Medical Decision Making - Medical Decision Making Patient reevaluated and updated. Case was discussed in detail with Dr. Lieberman, who will admit covering for Dr. Tatyana Tavera. He agrees with heparin and also requests hematology consult.Dr. Ratliff will be placed on consult. - Lab Data Result diagrams: 05/24/20 17:59 05/24/20 17:59 Lab Results 05/24/20 05/24/20 05/24/20 Range/Units 17:59 17:59 17:59 WBC 12.7 H (3.8-10.6) k/uL RBC 5.45 (4.30-5.90) m/uL Hgb 14.8 (13.0-17.5) gm/dL Hct 46.6 (39.0-53.0) % MCV 85.5 (80.0-100.0) fL MCH 27.2 (25.0-35.0) pg MCHC 31.8 (31.0-37.0) g/dL RDW 16.7 H (11.5-15.5) % Plt Count 256 (150-450) k/uL Neutrophils % 86 % Lymphocytes % 6 % Monocytes % 4 % Eosinophils % 2 % Basophils % 1 % Neutrophils # 10.9 H (1.3-7.7) k/uL Lymphocytes # 0.8 L (1.0-4.8) k/uL Monocytes # 0.5 (0-1.0) k/uL Eosinophils # 0.3 (0-0.7) k/uL Basophils # 0.1 (0-0.2) k/uL Anisocytosis Slight PT 41.1 H (9.0-12.0) sec INR 4.2 H (<1.2) APTT 39.7 H (22.0-30.0) sec Sodium 134 L (137-145) mmol/L Potassium 4.7 (3.5-5.1) mmol/L Chloride 99 (98-107) mmol/L Carbon Dioxide 28 (22-30) mmol/L Anion Gap 7 mmol/L BUN 23 H (9-20) mg/dL Creatinine 1.02 (0.66-1.25) mg/dL Est GFR (CKD-EPI)AfAm 84 (>60 ml/min/1.73 sqM) Est GFR (CKD-EPI)NonAf 73 (>60 ml/min/1.73 sqM) Glucose 182 H (74-99) mg/dL Plasma Lactic Acid Christopher (0.7-2.0) mmol/L Calcium 9.2 (8.4-10.2) mg/dL Total Bilirubin 0.6 (0.2-1.3) mg/dL AST 24 (17-59) U/L ALT 21 (4-49) U/L Alkaline Phosphatase 114 (38-126) U/L Total Protein 8.1 (6.3-8.2) g/dL Albumin 4.0 (3.5-5.0) g/dL 05/24/20 Range/Units 17:59 WBC (3.8-10.6) k/uL RBC (4.30-5.90) m/uL Hgb (13.0-17.5) gm/dL Hct (39.0-53.0) % MCV (80.0-100.0) fL MCH (25.0-35.0) pg MCHC (31.0-37.0) g/dL RDW (11.5-15.5) % Plt Count (150-450) k/uL Neutrophils % % Lymphocytes % % Monocytes % % Eosinophils % % Basophils % % Neutrophils # (1.3-7.7) k/uL Lymphocytes # (1.0-4.8) k/uL Monocytes # (0-1.0) k/uL Eosinophils # (0-0.7) k/uL Basophils # (0-0.2) k/uL Anisocytosis PT (9.0-12.0) sec INR (<1.2) APTT (22.0-30.0) sec Sodium (137-145) mmol/L Potassium (3.5-5.1) mmol/L Chloride (98-107) mmol/L Carbon Dioxide (22-30) mmol/L Anion Gap mmol/L BUN (9-20) mg/dL Creatinine (0.66-1.25) mg/dL Est GFR (CKD-EPI)AfAm (>60 ml/min/1.73 sqM) Est GFR (CKD-EPI)NonAf (>60 ml/min/1.73 sqM) Glucose (74-99) mg/dL Plasma Lactic Acid Christopher 1.4 (0.7-2.0) mmol/L Calcium (8.4-10.2) mg/dL Total Bilirubin (0.2-1.3) mg/dL AST (17-59) U/L ALT (4-49) U/L Alkaline Phosphatase (38-126) U/L Total Protein (6.3-8.2) g/dL Albumin (3.5-5.0) g/dL - Radiology Data Radiology results: report reviewed (Ultrasound right leg positive for femoral DVT) Disposition Clinical Impression: Cellulitis, Femoral vein, deep venous thrombosis Disposition: ADMITTED IP TO THIS HOSP Is patient prescribed a controlled substance at d/c from ED?: No Referrals: Tatyana Mora MD [Primary Care Provider] - 1-2 days Decision Time: 21:06
[2020-05-24 19:17] LABS: Anisocytosis Slight; Basophils # (A) 0.1 k/uL (0-0.2); Basophils % (A) 1 %; Eosinophils # (A) 0.3 k/uL (0-0.7); Eosinophils % (A) 2 %; HCT 46.6 % (39.0-53.0); HGB 14.8 gm/dL (13.0-17.5); Lymphocytes # (A) 0.8 k/uL (1.0-4.8); Lymphocytes % (A) 6 %; MCH 27.2 pg (25.0-35.0); MCHC 31.8 g/dL (31.0-37.0); MCV 85.5 fL (80.0-100.0); Mean Platelet Volume 7.5; Monocytes # (A) 0.5 k/uL (0-1.0); Monocytes % (A) 4 %; Neutrophils # (A) 10.9 k/uL (1.3-7.7); Neutrophils % (A) 86 %; Platelet Count 256 k/uL (150-450); RBC 5.45 m/uL (4.30-5.90); RDW 16.7 % (11.5-15.5); WBC 12.7 k/uL (3.8-10.6)
[2020-05-24 19:26] LABS: Calcium 9.2 mg/dL (8.4-10.2); Potassium 4.7 mmol/L (3.5-5.1); Total Bilirubin 0.6 mg/dL (0.2-1.3); Total Protein 8.1 g/dL (6.3-8.2)
[2020-05-24 19:30] LABS: INR 4.2 (<1.2); Partial Thromboplastin Time 39.7 sec (22.0-30.0); Prothrombin Time 41.1 sec (9.0-12.0)
[2020-05-24] MEDS ORDERED: NALOXONE 0.4 MG/ML 1 ML VIAL IV PRN (21:08)
--- NOTE | 2020-05-24 22:00 | CONS ---
DATE OF CONSULTATION: 05/24/2020 Antony came to the [facility] today. He has long-standing history of chronic venous stasis ulcer right lower extremity due to deep vein thrombosis in the past. The patient came in today with marked swelling and redness on the medial aspect of the right thigh and also right lower extremity. The patient has some chronic venous ulcer right lower extremity. The patient has been admitted for IV antibiotics and local wound care. MEDICAL HISTORY: History of obesity, diabetes, hypertension, chronic venous hypertension. PHYSICAL EXAMINATION: NECK: Supple. Trachea central. CHEST: Clear. ABDOMEN: Soft. Femoral pulses are present. Patient has marked tenderness and redness of the upper aspect of the thigh on the right side and also patient has a large venous stasis ulcer right lower extremity with mild swelling. PLAN: Patient will be admitted. The patient will have the IV antibiotic and we will do the venous ultrasound, rule out thrombophlebitis. The patient will need Silvadene cream with a Zeus wrap and compression wrap, 2 pillow elevation. We will follow with you. Thank you for this consultation. MMARNOLDOL / MEERAN: [id number] / MTDD
[2020-05-24] MEDS: PANTOPRAZOLE 40 MG/10 ML VIAL IV SCH (22:48)
[2020-05-24] MEDS: HEPARIN SODIUM,PORCINE 5,000 UNIT/ML 1 ML VIAL IV PRN (22:51)
[2020-05-24] MEDS: HEPARIN SOD,PORK IN 0.45% NACL 25,000 UNIT in 0.45% NACL 1 250ML.BAG IV SCH (22:52)
[2020-05-24] MEDS: SODIUM CHLORIDE 0.9% 1,000 ML IV SCH (22:53)
[2020-05-24] MEDS: tiZANidine 4 MG TAB PO SCH (22:53)
[2020-05-24] MEDS: DILTIAZEM ORAL 60 MG TAB PO SCH (22:53)
--- NOTE | 2020-05-25 00:19 | HP ---
HISTORY AND PHYSICAL DATE OF SERVICE: 05/24/2020 CHIEF COMPLAINTS: Right leg pain and infection. HISTORY OF PRESENT ILLNESS: This 75-year-old gentleman with a past history of asthma, history of diabetes, history of DVT, GERD, hypertension, history of DJD, history of pulmonary embolism, hypothyroidism, history of ocular migraines, history of cholecystectomy history of hernia repair, being followed by Dr. Prince and Dr. Ratliff in the outpatient setting, also had significant ulcerations, cellulitis of the both legs also. Dr. Ratliff today saw the patient and there was some erythema of the posterior right leg up to thigh and posterior part also. Ultrasound of the leg was also done which showed evidence of possible DVT in the with the internal echoes seen and noncompressible. The patient's INR is also elevated, probably indicating Coumadin failure and the patient was being admitted for further evaluation and treatment. There is no history of fever, rigors or chills. No history of headache, loss of consciousness, seizures. PAST MEDICAL HISTORY: History of asthma, history of diabetes type 2, history of DVT, GERD, history of hypertension, history of DJD, pulmonary embolism, history of pneumonia. MEDICATIONS: Home medications are reviewed and include: Zanaflex 4 mg p.o. daily. Glucotrol XL 20 mg, Coumadin 7.5 mg, triamterene 1 capsule daily. 1 mL q 30 days. Aldactone 50 mg p.o. daily. Prilosec 20 mg daily, Singulair. Cozaar, Synthroid. Edwards, Lasix, diltiazem, Lotrisone, Symbicort, Lipitor, albuterol and Ventolin. Doses reviewed. ALLERGIES: IODINATED CONTRAST DYE, IODINE, LATEX, LISINOPRIL, SHELLFISH CODEINE. FAMILY HISTORY: History of coronary artery disease and rheumatoid arthritis. SOCIAL HISTORY: History of occasional alcohol. Previous history of smoking. REVIEW OF SYSTEMS: ENT diminished vision. Diminished hearing. CARDIOVASCULAR: No angina or palpitations. RESPIRATORY: As mentioned earlier. GI: As mentioned earlier. no dysuria. NERVOUS SYSTEM: No numbness, weakness. ALLERGY/IMMUNOLOGY: No asthma or hayfever. MUSCULOSKELETAL as mentioned earlier. HEMATOLOGY/ONCOLOGY: No history of anemia. ENDOCRINE: As mentioned earlier. CONSTITUTIONAL: As mentioned earlier. DERMATOLOGY: As mentioned earlier. RHEUMATOLOGY: Negative. PSYCHIATRY: As mentioned earlier. PHYSICAL EXAM: Patient is alert, oriented x3. Pulse is 67, blood pressure 140/83, respiration 20, temperature 98 degrees, pulse ox 97% on room air. HEENT: Conjunctivae normal. NECK: No JVD. CARDIOVASCULAR: S1, S2 muffled. RESPIRATIONS: Breath sounds diminished in the bases. A few scattered rhonchi and crackles. ABDOMEN: Soft, obese, nontender. LEGS: Significant pain and swelling of the right leg with erythema also present. NERVOUS SYSTEM: Higher functions as mentioned. Moves all 4 limbs. No focal motor or sensory deficits. LYMPHATICS: No lymph nodes palpable in the neck, axillae or groin. SKIN: As mentioned earlier. JOINTS: No active deforming arthropathy. LAB STUDIES: WBC 12.7, hemoglobin 14.8. INR is 4.2. Sodium 135. ASSESSMENT: 1. Right leg pain and swelling, possible acute cellulitis. 2. Possible acute right leg deep vein thrombosis with possible Coumadin failure. 3. Elevated PT/INR. 4. Hyponatremia. 5. Increased WBC. 6. History of asthma. 7. History of factor 5 Leiden deficiency. 8. Diabetes type 2. 9. History of deep vein thrombosis. 10.History of gastroesophageal reflux disease. 11.History of gastrointestinal bleed. 12.Hypertension. 13.History of degenerative joint disease. 14.History of pneumonia. 15.History of pulmonary embolus. 16.History of hypothyroidism. 17.History of ocular migraines. 18.History of cellulitis. 19.History of hypothyroidism. 20.Diabetes type 2. 21.History of MRSA. 22.History of cholecystectomy. 23.History of nonhealing ulcer on the right foot. 24.History of basal cell carcinoma of the scalp. 25.Obesity with body mass of 43.8. 26.FULL CODE. RECOMMENDATIONS AND DISCUSSION: In this 75-year-old female who presented with multiple complex medical issues, we will monitor the patient closely. Continue the current medications, management and symptomatic treatment. We will initiate broad-spectrum IV antibiotics. Otherwise, resume the home medications. Consult Dr. Hagan and Dr. Ratliff and as well as Dr. Silva. Resume the home medications. Prognosis extremely guarded because of multiple complex medical conditions. A copy of dictation forwarded to Dr. Prince, who is the primary care physician. MMODL / IJN: [id number] / MARY JO
[2020-05-25] MEDS ORDERED: TEMAZEPAM 15 MG CAP PO PRN (01:00)
[2020-05-25 05:03] LABS: Anisocytosis Slight; Basophils # (A) 0.1 k/uL (0-0.2); Basophils % (A) 1 %; Eosinophils # (A) 0.3 k/uL (0-0.7); Eosinophils % (A) 2 %; HCT 43.8 % (39.0-53.0); HGB 13.9 gm/dL (13.0-17.5); Hypochromasia Slight; Lymphocytes # (A) 0.9 k/uL (1.0-4.8); Lymphocytes % (A) 8 %; MCH 27.3 pg (25.0-35.0); MCHC 31.6 g/dL (31.0-37.0); MCV 86.4 fL (80.0-100.0); Mean Platelet Volume 7.1; Monocytes # (A) 0.5 k/uL (0-1.0); Monocytes % (A) 5 %; Neutrophils # (A) 9.9 k/uL (1.3-7.7); Neutrophils % (A) 84 %; Platelet Count 224 k/uL (150-450); RBC 5.07 m/uL (4.30-5.90); RDW 16.9 % (11.5-15.5); WBC 11.8 k/uL (3.8-10.6)
[2020-05-25 05:26] LABS: INR 4.2 (<1.2); Prothrombin Time 41.4 sec (9.0-12.0)
[2020-05-25 05:31] LABS: Partial Thromboplastin Time >200.0 sec (22.0-30.0)
[2020-05-25] MEDS: SYMBICORT 160-4.5 MCG INHALER INHALATION SCH ×2 (07:56→20:49)
[2020-05-25] MEDS: ALBUTEROL NEBULIZED 2.5 MG/3 ML INHALATION PRN ×2 (07:58→12:00)
[2020-05-25] MEDS ORDERED: CLOTRIMAZOLE/BETAMETH 1-0.05% CREAM 45 GM TUBE TOPICAL PRN (09:00)
[2020-05-25] MEDS: PANTOPRAZOLE 40 MG TABLET PO SCH (10:49)
[2020-05-25] MEDS: DILTIAZEM ORAL 60 MG TAB PO SCH ×3 (10:49→22:17)
[2020-05-25] MEDS: tiZANidine 4 MG TAB PO SCH ×3 (10:50→22:17)
[2020-05-25] MEDS: SPIRONOLACTONE 25 MG TAB PO SCH (10:50)
[2020-05-25] MEDS: TRIAMTERENE-HCTZ 37.5-25MG 1 EACH CAP PO SCH (10:50)
[2020-05-25] MEDS: HYDROcodone/APAP 5-325MG 1 EACH TAB PO PRN (10:52)
[2020-05-25] MEDS: FUROSEMIDE 40 MG TAB PO SCH (10:52)
[2020-05-25] MEDS: ATORVASTATIN 10 MG TAB PO SCH (10:52)
[2020-05-25] MEDS: HEPARIN SOD,PORK IN 0.45% NACL 25,000 UNIT in 0.45% NACL 1 250ML.BAG IV SCH (10:53)
[2020-05-25] MEDS: ALPRAZolam 0.25 MG TAB PO PRN (10:53)
[2020-05-25] MEDS: PANTOPRAZOLE 40 MG/10 ML VIAL IV SCH (10:59)
[2020-05-25] MEDS: LEVOTHYROXINE 100 MCG TAB PO SCH ×2 (11:00→11:17)
[2020-05-25] MEDS: glipiZIDE 5 MG TAB PO SCH ×2 (11:17→22:17)
[2020-05-25] MEDS: LOSARTAN 25 MG TAB PO SCH (11:18)
--- NOTE | 2020-05-25 13:07 | P.CONS ---
History of Present Illness - Reason for Consult Consult date: 05/25/20 Wound care - History of Present Illness This is a 75-year-old patient known to the wound care center who was seen yesterday and was instructed to go to the ER for cellulitis of the right lower extremity. Patient has had multiple wraps to his right lower extremity at this time we are utilizing Silvadene cream. Review of Systems Review Of Systems: Constitutional: No fever, no chills, no night sweats. No weight change. No weakness, fatigue or lethargy. No daytime sleepiness. Integumentary:reports wounds, no lesions. No rash or pruritus. No unusual bruising. No change in hair or nails. Past Medical History Past Medical History: Asthma, Blood Disorder, Cancer, Diabetes Mellitus, Deep Vein Thrombosis (DVT), GERD/Reflux, GI Bleed, Hypertension, Osteoarthritis (OA), Pneumonia, Pulmonary Embolus (PE), Thyroid Disorder, Vascular Disorder Additional Past Medical History / Comment(s): occular migraines, seasonal allergies, SOB with activity, hx cellulitis, clotting disorder-Factor V- Leiden, basal cell skin ca(folicular) , received shingles vaccine and hepatits a vaccine, hypothyrodism, Type 2 diabetes, medication controlled, heart murmur, kidney stones, YSABEL History of Any Multi-Drug Resistant Organisms: MRSA Year Discovered:: 2012 MDRO Source:: bilateral legs Past Surgical History: Cholecystectomy, Hernia Repair, Tonsillectomy Additional Past Surgical History / Comment(s): colonoscopy, basal cell carcinoma from scalp, nasal/sinus, meet filter.pilonsial cyst removed, rt index finger sx- removed calcium deposit, umbilical hernia x 2 Past Anesthesia/Blood Transfusion Reactions: No Reported Reaction Past Psychological History: No Psychological Hx Reported Additional Psychological History / Comment(s): Patient lives with his , in house. Jacobn has stairs at home: 13. Patient has canes, walkers, ect at home for when needed. Doesn't utilize any currently. Smoking Status: Former smoker Past Alcohol Use History: Rare Additional Past Alcohol Use History / Comment(s): Started smoking at age 17(1962) and quit age 30(1974). Couple of bottles of beer a week per patient. Past Drug Use History: None Reported - Past Family History Mother Family Medical History: Coronary Artery Disease (CAD), Rheumatoid Arthritis (RA) Additional Family Medical History / Comment(s): age 70 heart problems- RA. Father Family Medical History: No Reported History Additional Family Medical History / Comment(s): age 72 Medications and Allergies Home Medications Medication Instructions Recorded Confirmed Type Omeprazole [PriLOSEC] 20 mg PO DAILY 12/29/13 05/24/20 History Atorvastatin [Lipitor] 10 mg PO DAILY 10/04/17 05/24/20 History Diltiazem HCl 120 mg PO TID 11/21/18 05/24/20 History HYDROcodone/APAP 5-325MG [[place] 1 tab PO BID PRN 10/20/19 05/24/20 History 5-325] Levothyroxine Sodium [Synthroid] 200 mcg PO DAILY 10/20/19 05/24/20 History Losartan [Cozaar] 50 mg PO DAILY 10/20/19 05/24/20 History Montelukast Sodium [Singulair] 10 mg PO HS 10/20/19 05/24/20 History Spironolactone 50 mg PO DAILY 10/20/19 05/24/20 History glipiZIDE XL [Glucotrol XL] 20 mg PO DAILY 10/20/19 05/24/20 History Albuterol Sulfate [Ventolin HFA] 2 puff INHALATION RT-Q4H PRN 01/06/20 05/24/20 History Warfarin Sodium [Coumadin] 7.5 mg PO HS 01/06/20 05/24/20 History Budesonide-Formot 160-4.5 Mcg 2 puff INHALATION RT-BID 03/31/20 05/24/20 History [Symbicort 160-4.5 Mcg Inhaler] Clotrimazole/Betamethasone Dip 1 applic TOPICAL DIRECTED PRN 03/31/20 05/24/20 History [Lotrisone Cream] Testosterone Cypionate 1 ml IM Q30D 03/31/20 05/24/20 History [Depo-Testosterone] tiZANidine HCL [Zanaflex] 4 mg PO TID 03/31/20 05/24/20 History Furosemide [Lasix] 40 mg PO DAILY 05/24/20 05/24/20 History Triamterene-Hctz 37.5-25Mg 1 cap PO DAILY 05/24/20 05/24/20 History [Dyazide 37.5-25 Capsule] Allergies Allergy/AdvReac Type Severity Reaction Status Date / Time Iodinated Contrast Media Allergy Anaphylaxis Verified 05/24/20 19:31 iodine Allergy Anaphylaxis Verified 05/24/20 19:31 latex Allergy Unknown Verified 05/24/20 19:31 lisinopril Allergy Cough Verified 05/24/20 19:31 shellfish derived Allergy Anaphylaxis Verified 05/24/20 19:31 codeine AdvReac Rapid Verified 05/24/20 19:31 Heart Rate Physical Exam Vitals: Vital Signs Temp Pulse Pulse Resp BP BP Pulse Ox 05/25/20 12:10 76 05/25/20 12:01 72 05/25/20 08:11 73 05/25/20 07:59 69 05/25/20 07:00 98 F 69 72 18 158/85 137/82 96 05/25/20 00:14 98.8 F 82 18 129/83 96 05/24/20 22:57 98.0 F 86 18 133/99 97 05/24/20 15:39 98.0 F 67 20 144/83 97 Intake and Output 05/24/20 05/25/20 05/25/20 22:59 06:59 14:59 Intake Total 025.923 7858.063 Output Total 725 Balance 242.095 9606.063 Intake: Intake, IV Titration 160.178 182.063 Amount Heparin Sod,Pork in 0.45% 160.178 72.063 NaCl 25,000 unit In 0.45 % NaCl 1 250ml.bag @ 15. 84 UNITS/KG/HR 22.992 mls /hr IV .[id number] [facility] Rx#: [id number] Sodium Chloride 0.9% 1, 60 000 ml @ 20 mls/hr IV . Q24H [facility] Rx#:[id number] ceFAZolin 2 gm In Sodium 50 Chloride 0.9% 50 ml @ 100 mls/hr IVPB Q8HR [facility] Rx# :[id number] Oral 1632 Output: Urine 725 Other: Voiding Method Urinal # Voids 1 Weight 145.15 kg 145.15 kg Original cause of wound was Gradually Appeared. The wound is currently classif ied as a Grade 2 wound with etiologies of Diabetic Wound/Ulcer of the Lower Extremity and Venous Leg Ulcer and is located on the Right Lower Leg. The wound measures 6.4cm length x 2.4cm width; 12.064cm^2 area and 3.619cm^3 volume. There is fascia exposed. There is no tunneling or undermining noted. There is a large amount of serous drainage noted. The wound margin is distinct with the outline attached to the wound base. There is medium (34-66%) red granulation within the wound bed. There is a medium (34-66%) amount of necrotic tissue within the wound bed including Adherent Slough. The periwound skin appearance exhibited: Scarring, Dry/Scaly, Maceration, Hemosiderin Staining, Erythema. The periwound skin appearance did not exhibit: Callus, Crepitus, Excoriation, Induration, Rash, Atrophie [place], Cyanosis, Ecchymosis, Mottled, Pallor, Rubor. The surrounding wound skin color is noted with erythema which is circumferential. Periwound temperature was noted as No Abnormality. The periwound has tenderness on palpation. Results CBC & Chem 7: 05/25/20 04:29 05/24/20 17:59 Labs: Abnormal Lab Results - Last 24 Hours (Table) 05/24/20 05/24/20 05/24/20 Range/Units 17:59 17:59 17:59 WBC 12.7 H (3.8-10.6) k/uL RDW 16.7 H (11.5-15.5) % Neutrophils # 10.9 H (1.3-7.7) k/uL Lymphocytes # 0.8 L (1.0-4.8) k/uL PT 41.1 H (9.0-12.0) sec INR 4.2 H (<1.2) APTT 39.7 H (22.0-30.0) sec Sodium 134 L (137-145) mmol/L BUN 23 H (9-20) mg/dL Glucose 182 H (74-99) mg/dL 05/25/20 05/25/20 Range/Units 04:29 04:29 WBC 11.8 H (3.8-10.6) k/uL RDW 16.9 H (11.5-15.5) % Neutrophils # 9.9 H (1.3-7.7) k/uL Lymphocytes # 0.9 L (1.0-4.8) k/uL PT 41.4 H (9.0-12.0) sec INR 4.2 H (<1.2) APTT >200.0 H* (22.0-30.0) sec Sodium (137-145) mmol/L BUN (9-20) mg/dL Glucose (74-99) mg/dL Assessment and Plan Plan: Assessment: 1. Chronic venous hypertension with ulcer and inflammation of bilateral lower extremities 2. Venous insufficiency chronic peripheral 3 morbid obesity 4 diabetes mellitus with skin ulcer 5 cellulitis of the right lower extremity Plan: Apply Silvadene cream dry gauze and rolled gauze and secured paper tape change daily. Patient will continue with his wound care appointments as next appointment is May 31 at 145 Thank you, for the consultation any questions please contact the wound care center DNP note has been reviewed and discussed with Dr. Esquivel and the impression and plan of care has been directed as dictated.
--- NOTE | 2020-05-25 16:02 | P.CONS ---
History of Present Illness - Reason for Consult Consult date: 05/25/20 right lower extremity DVT, suspect acute on chronic Requesting physician: Johnny Lieberman - Chief Complaint cellulitis and pain in the right lower extremity - History of Present Illness Mr. Ponce is a very pleasant 75-year-old male patient we have been asked to see who has a history of bilateral lower extremity DVT as well as PE. He first had blood clot was in his 20s. Patient states he has factor V Leiden deficiency. He claims 5 clots in his right leg. He is been on Coumadin for the same. Over the last 1 week he has had increase in pain, swelling and redness on the back of the right thigh just superior to the popliteal area. On admit Doppler was done showing noncompressible femoral vein. On chart review ultrasound of the right thigh back in 2015 not show a blood clot. there is no other documentation in this medical record regarding DVT. Patient states persistent, progressive symptoms pain and redness over the last week, he denies any history of liver disease he is currently on a heparin drip, no bleeding to report. He denies any bleeding while on anticoagulation for many years. Review of Systems 14 point review of systems is negative except as stated in HPI Past Medical History Past Medical History: Asthma, Blood Disorder, Cancer, Diabetes Mellitus, Deep Vein Thrombosis (DVT), GERD/Reflux, GI Bleed, Hypertension, Osteoarthritis (OA), Pneumonia, Pulmonary Embolus (PE), Thyroid Disorder, Vascular Disorder Additional Past Medical History / Comment(s): occular migraines, seasonal allergies, SOB with activity, hx cellulitis, clotting disorder-Factor V- Leiden, basal cell skin ca(folicular) , received shingles vaccine and hepatits a vaccine, hypothyrodism, Type 2 diabetes, medication controlled, heart murmur, kidney stones, YSABEL History of Any Multi-Drug Resistant Organisms: MRSA Year Discovered:: 2012 MDRO Source:: bilateral legs Past Surgical History: Cholecystectomy, Hernia Repair, Tonsillectomy Additional Past Surgical History / Comment(s): colonoscopy, basal cell carcinoma from scalp, nasal/sinus, meet filter.pilonsial cyst removed, rt index finger sx- removed calcium deposit, umbilical hernia x 2 Past Anesthesia/Blood Transfusion Reactions: No Reported Reaction Past Psychological History: No Psychological Hx Reported Smoking Status: Former smoker - Past Family History Mother Family Medical History: Coronary Artery Disease (CAD), Rheumatoid Arthritis (RA) Additional Family Medical History / Comment(s): age 70 heart problems- RA. Father Family Medical History: No Reported History Additional Family Medical History / Comment(s): age 72 Medications and Allergies Home Medications Medication Instructions Recorded Confirmed Type Omeprazole [PriLOSEC] 20 mg PO DAILY 12/29/13 05/24/20 History Atorvastatin [Lipitor] 10 mg PO DAILY 10/04/17 05/24/20 History Diltiazem HCl 120 mg PO TID 11/21/18 05/24/20 History HYDROcodone/APAP 5-325MG [[place] 1 tab PO BID PRN 10/20/19 05/24/20 History 5-325] Levothyroxine Sodium [Synthroid] 200 mcg PO DAILY 10/20/19 05/24/20 History Losartan [Cozaar] 50 mg PO DAILY 10/20/19 05/24/20 History Montelukast Sodium [Singulair] 10 mg PO HS 10/20/19 05/24/20 History Spironolactone 50 mg PO DAILY 10/20/19 05/24/20 History glipiZIDE XL [Glucotrol XL] 20 mg PO DAILY 10/20/19 05/24/20 History Albuterol Sulfate [Ventolin HFA] 2 puff INHALATION RT-Q4H PRN 01/06/20 05/24/20 History Warfarin Sodium [Coumadin] 7.5 mg PO HS 01/06/20 05/24/20 History Budesonide-Formot 160-4.5 Mcg 2 puff INHALATION RT-BID 03/31/20 05/24/20 History [Symbicort 160-4.5 Mcg Inhaler] Clotrimazole/Betamethasone Dip 1 applic TOPICAL DIRECTED PRN 03/31/20 05/24/20 History [Lotrisone Cream] Testosterone Cypionate 1 ml IM Q30D 03/31/20 05/24/20 History [Depo-Testosterone] tiZANidine HCL [Zanaflex] 4 mg PO TID 03/31/20 05/24/20 History Furosemide [Lasix] 40 mg PO DAILY 05/24/20 05/24/20 History Triamterene-Hctz 37.5-25Mg 1 cap PO DAILY 05/24/20 05/24/20 History [Dyazide 37.5-25 Capsule] Allergies Allergy/AdvReac Type Severity Reaction Status Date / Time Iodinated Contrast Media Allergy Anaphylaxis Verified 05/24/20 19:31 iodine Allergy Anaphylaxis Verified 05/24/20 19:31 latex Allergy Unknown Verified 05/24/20 19:31 lisinopril Allergy Cough Verified 05/24/20 19:31 shellfish derived Allergy Anaphylaxis Verified 05/24/20 19:31 codeine AdvReac Rapid Verified 05/24/20 19:31 Heart Rate Physical Exam Vitals: Vital Signs Temp Pulse Pulse Resp BP BP Pulse Ox 05/25/20 08:11 73 05/25/20 07:59 69 05/25/20 07:00 98 F 69 72 18 158/85 137/82 96 05/25/20 00:14 98.8 F 82 18 129/83 96 05/24/20 22:57 98.0 F 86 18 133/99 97 05/24/20 15:39 98.0 F 67 20 144/83 97 Intake and Output 05/24/20 05/25/20 05/25/20 22:59 06:59 14:59 Intake Total 160.178 308.063 Balance 160.178 308.063 Intake: Intake, IV Titration 160.178 72.063 Amount Heparin Sod,Pork in 0.45% 160.178 72.063 NaCl 25,000 unit In 0.45 % NaCl 1 250ml.bag @ 15. 84 UNITS/KG/HR 22.992 mls /hr IV .[id number] [facility] Rx#: [id number] Oral 236 Other: Weight 145.15 kg - Constitutional General appearance: cooperative, no acute distress, obese - EENT Eyes: anicteric sclerae, EOMI ENT: hearing grossly normal - Neck Neck: no lymphadenopathy - Respiratory Respiratory: bilateral: CTA - Cardiovascular Rhythm: regular Heart sounds: normal: S1, S2 Abnormal Heart Sounds: no systolic murmur, no diastolic murmur, no rub, no S3 Gallop, no S4 Gallop, no click, no other leg Peripheral Edema: right: 2+, left: None - Gastrointestinal General gastrointestinal: no absent bowel sounds, no decreased bowel sounds, no distended, no hepatomegaly, no hyperactive bowel sounds, normal bowel sounds, no organomegaly, no rigid, no scaphoid, soft, no splenomegaly, no tenderness, no umbilical hernia, no ventral hernia - Integumentary posterior aspect of the right thigh is swollen, reddened, indurated skin, no open lesions or drainage - Neurologic Neurologic: CNII-XII intact - Musculoskeletal Musculoskeletal: strength equal bilaterally - Psychiatric Psychiatric: A&O x's 3, appropriate affect, intact judgment & insight Results CBC & Chem 7: 05/25/20 04:29 05/24/20 17:59 Labs: Abnormal Lab Results - Last 24 Hours (Table) 05/24/20 05/24/20 05/24/20 Range/Units 17:59 17:59 17:59 WBC 12.7 H (3.8-10.6) k/uL RDW 16.7 H (11.5-15.5) % Neutrophils # 10.9 H (1.3-7.7) k/uL Lymphocytes # 0.8 L (1.0-4.8) k/uL PT 41.1 H (9.0-12.0) sec INR 4.2 H (<1.2) APTT 39.7 H (22.0-30.0) sec Sodium 134 L (137-145) mmol/L BUN 23 H (9-20) mg/dL Glucose 182 H (74-99) mg/dL 05/25/20 05/25/20 Range/Units 04:29 04:29 WBC 11.8 H (3.8-10.6) k/uL RDW 16.9 H (11.5-15.5) % Neutrophils # 9.9 H (1.3-7.7) k/uL Lymphocytes # 0.9 L (1.0-4.8) k/uL PT 41.4 H (9.0-12.0) sec INR 4.2 H (<1.2) APTT >200.0 H* (22.0-30.0) sec Sodium (137-145) mmol/L BUN (9-20) mg/dL Glucose (74-99) mg/dL Venous US: report reviewed Assessment and Plan (1) Femoral vein, deep venous thrombosis Narrative/Plan: Without any other doppler reports other then in 2014, it cannot be said for certain if current right lower extremity, proximal thigh, represents chronic, acute or an acute on chronic DVT. With all of the uncertainty, recommendation from a Hematology standpoint is for discontinuation of Coumadin due to suspected failure of anticoagulation and for patient to be changed to Eliquis dosing twice a day. Patient denies ever following up with a [employer] in regards to his factor V Leiden deficiency. Recommendation would be for the same. Contact information placed in the chart for patient at his discretion. Current Visit: Yes Status: Chronic Priority: Medium Code(s): I82.419 - ACUTE EMBOLISM AND THROMBOSIS OF UNSPECIFIED FEMORAL VEIN SNOMED Code(s): 253329455 (2) Cellulitis Current Visit: Yes Status: Acute Code(s): L03.90 - CELLULITIS, UNSPECIFIED SNOMED Code(s): 865777934 Plan: Doctor attests: I performed a history and physical examination of this patient, developed impression and plan of care. Discussed with dictator. I agree with dictators note, documented as a scribe.
--- NOTE | 2020-05-25 16:10 | P.GSCN ---
History of Present Illness History of present illness: 75-year-old gentleman, patient came to see me yesterday in the wound clinic with history of cellulitis of the right upper thigh patient has a chronic venous stasis ulcer right lower extremity we've been treating with the compression wrap and Unna boot. 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 I discussed with the ER physician to do the venous ultrasound to check if there is any thrombophlebitis of the great saphenous vein grade and patient will be on Silvadene cream come with compression wrap and IV antibiotic and local wound care. On examination right leg has marked swelling and there is a marked cellulitis involving the medial aspect of the thigh. And also patient has a venous stasis ulcer right lower extremity with swelling of the right lower extremity. Plan is patient is an IV antibiotic, we will use Silvadene cream with compression wrap one pillow elevation if patient is discharged on the weekend we will follow in the wound clinic Past Medical History Past Medical History: Asthma, Blood Disorder, Cancer, Diabetes Mellitus, Deep Vein Thrombosis (DVT), GERD/Reflux, GI Bleed, Hypertension, Osteoarthritis (OA), Pneumonia, Pulmonary Embolus (PE), Thyroid Disorder, Vascular Disorder Additional Past Medical History / Comment(s): occular migraines, seasonal allergies, SOB with activity, hx cellulitis, clotting disorder-Factor V- Leiden, basal cell skin ca(folicular) , received shingles vaccine and hepatits a vaccine, hypothyrodism, Type 2 diabetes, medication controlled, heart murmur, kidney stones, YSABEL History of Any Multi-Drug Resistant Organisms: MRSA Year Discovered:: 2012 MDRO Source:: bilateral legs Past Surgical History: Cholecystectomy, Hernia Repair, Tonsillectomy Additional Past Surgical History / Comment(s): colonoscopy, basal cell carcinoma from scalp, nasal/sinus, meet filter.pilonsial cyst removed, rt index finger sx- removed calcium deposit, umbilical hernia x 2 Past Anesthesia/Blood Transfusion Reactions: No Reported Reaction Past Psychological History: No Psychological Hx Reported Smoking Status: Former smoker - Past Family History Mother Family Medical History: Coronary Artery Disease (CAD), Rheumatoid Arthritis (RA) Additional Family Medical History / Comment(s): age 70 heart problems- RA. Father Family Medical History: No Reported History Additional Family Medical History / Comment(s): age 72 Medications and Allergies Home Medications Medication Instructions Recorded Confirmed Type Omeprazole [PriLOSEC] 20 mg PO DAILY 12/29/13 05/24/20 History Atorvastatin [Lipitor] 10 mg PO DAILY 10/04/17 05/24/20 History Diltiazem HCl 120 mg PO TID 11/21/18 05/24/20 History HYDROcodone/APAP 5-325MG [[place] 1 tab PO BID PRN 10/20/19 05/24/20 History 5-325] Levothyroxine Sodium [Synthroid] 200 mcg PO DAILY 10/20/19 05/24/20 History Losartan [Cozaar] 50 mg PO DAILY 10/20/19 05/24/20 History Montelukast Sodium [Singulair] 10 mg PO HS 10/20/19 05/24/20 History Spironolactone 50 mg PO DAILY 10/20/19 05/24/20 History glipiZIDE XL [Glucotrol XL] 20 mg PO DAILY 10/20/19 05/24/20 History Albuterol Sulfate [Ventolin HFA] 2 puff INHALATION RT-Q4H PRN 01/06/20 05/24/20 History Warfarin Sodium [Coumadin] 7.5 mg PO HS 01/06/20 05/24/20 History Budesonide-Formot 160-4.5 Mcg 2 puff INHALATION RT-BID 03/31/20 05/24/20 History [Symbicort 160-4.5 Mcg Inhaler] Clotrimazole/Betamethasone Dip 1 applic TOPICAL DIRECTED PRN 03/31/20 05/24/20 History [Lotrisone Cream] Testosterone Cypionate 1 ml IM Q30D 03/31/20 05/24/20 History [Depo-Testosterone] tiZANidine HCL [Zanaflex] 4 mg PO TID 03/31/20 05/24/20 History Furosemide [Lasix] 40 mg PO DAILY 05/24/20 05/24/20 History Triamterene-Hctz 37.5-25Mg 1 cap PO DAILY 05/24/20 05/24/20 History [Dyazide 37.5-25 Capsule] Allergies Allergy/AdvReac Type Severity Reaction Status Date / Time Iodinated Contrast Media Allergy Anaphylaxis Verified 05/24/20 19:31 iodine Allergy Anaphylaxis Verified 05/24/20 19:31 latex Allergy Unknown Verified 05/24/20 19:31 lisinopril Allergy Cough Verified 05/24/20 19:31 shellfish derived Allergy Anaphylaxis Verified 05/24/20 19:31 codeine AdvReac Rapid Verified 05/24/20 19:31 Heart Rate Surgical - Exam Vital Signs Temp Pulse Resp BP Pulse Ox 98.0 F 67 20 144/83 97 05/24/20 15:39 05/24/20 15:39 05/24/20 15:39 05/24/20 15:39 05/24/20 15:39 Results - Labs 05/25/20 04:29 05/24/20 17:59 Abnormal Lab Results - Last 24 Hours (Table) 05/24/20 05/24/20 05/24/20 Range/Units 17:59 17:59 17:59 WBC 12.7 H (3.8-10.6) k/uL RDW 16.7 H (11.5-15.5) % Neutrophils # 10.9 H (1.3-7.7) k/uL Lymphocytes # 0.8 L (1.0-4.8) k/uL PT 41.1 H (9.0-12.0) sec INR 4.2 H (<1.2) APTT 39.7 H (22.0-30.0) sec Sodium 134 L (137-145) mmol/L BUN 23 H (9-20) mg/dL Glucose 182 H (74-99) mg/dL 05/25/20 05/25/20 05/25/20 Range/Units 04:29 04:29 12:52 WBC 11.8 H (3.8-10.6) k/uL RDW 16.9 H (11.5-15.5) % Neutrophils # 9.9 H (1.3-7.7) k/uL Lymphocytes # 0.9 L (1.0-4.8) k/uL PT 41.4 H (9.0-12.0) sec INR 4.2 H (<1.2) APTT >200.0 H* 118.0 H* (22.0-30.0) sec Sodium (137-145) mmol/L BUN (9-20) mg/dL Glucose (74-99) mg/dL Diabetes panel 05/24/20 Range/Units 17:59 Sodium 134 L (137-145) mmol/L Potassium 4.7 (3.5-5.1) mmol/L Chloride 99 (98-107) mmol/L Carbon Dioxide 28 (22-30) mmol/L BUN 23 H (9-20) mg/dL Creatinine 1.02 (0.66-1.25) mg/dL Glucose 182 H (74-99) mg/dL Calcium 9.2 (8.4-10.2) mg/dL AST 24 (17-59) U/L ALT 21 (4-49) U/L Alkaline Phosphatase 114 (38-126) U/L Total Protein 8.1 (6.3-8.2) g/dL Albumin 4.0 (3.5-5.0) g/dL Calcium panel 05/24/20 Range/Units 17:59 Calcium 9.2 (8.4-10.2) mg/dL Albumin 4.0 (3.5-5.0) g/dL Pituitary panel 05/24/20 Range/Units 17:59 Sodium 134 L (137-145) mmol/L Potassium 4.7 (3.5-5.1) mmol/L Chloride 99 (98-107) mmol/L Carbon Dioxide 28 (22-30) mmol/L BUN 23 H (9-20) mg/dL Creatinine 1.02 (0.66-1.25) mg/dL Glucose 182 H (74-99) mg/dL Calcium 9.2 (8.4-10.2) mg/dL Adrenal panel 05/24/20 Range/Units 17:59 Sodium 134 L (137-145) mmol/L Potassium 4.7 (3.5-5.1) mmol/L Chloride 99 (98-107) mmol/L Carbon Dioxide 28 (22-30) mmol/L BUN 23 H (9-20) mg/dL Creatinine 1.02 (0.66-1.25) mg/dL Glucose 182 H (74-99) mg/dL Calcium 9.2 (8.4-10.2) mg/dL Total Bilirubin 0.6 (0.2-1.3) mg/dL AST 24 (17-59) U/L ALT 21 (4-49) U/L Alkaline Phosphatase 114 (38-126) U/L Total Protein 8.1 (6.3-8.2) g/dL Albumin 4.0 (3.5-5.0) g/dL
--- NOTE | 2020-05-25 17:02 | PN ---
PROGRESS NOTE DATE OF SERVICE: 05/25/2020 This 75-year-old gentleman was admitted with right leg pain and swelling, DVT, possible acute cellulitis. The patient was anticoagulated with Coumadin. The patient also had an IVC filter placed. Hematology/Oncology has seen the patient and recommended discontinuing Coumadin with suspected failure and changing to Eliquis twice a day. The patient is being closely monitored at this time. Patient was started on heparin, but the PT/INR is prolonged. Dr. Ratliff also saw the patient as well as Wound Care. The cultures are pending at this time. Patient is also on empiric antibiotics. Past medical history reviewed. REVIEW OF SYSTEMS: CARDIOVASCULAR SYSTEM: No angina, palpitations. RESPIRATORY SYSTEM: As mentioned earlier. GI: No nausea, vomiting. : No dysuria or retention. NERVOUS SYSTEM: No numbness, weakness. ALLERGY/IMMUNOLOGY: Asthma. CURRENT MEDICATIONS: Reviewed. They include: [place] 5 mg, Ventolin, Xanax, Lipitor, Lotrisone, Cardizem, Lasix, Glucotrol, heparin, Cozaar, Singulair, Narcan, Protonix, aldactone, Restoril, Zanaflex, Dyazide. Doses are reviewed. PHYSICAL EXAMINATION: Patient is alert, oriented x3. Pulse is 83, blood pressure 130/78, respiration 18, temperature 97.7, pulse ox 94% on room air. HEENT: Conjunctivae normal. NECK: No jugular venous distention. CARDIOVASCULAR SYSTEM: S1, S2 muffled. RESPIRATORY SYSTEM: Breath sounds diminished at the bases. No rhonchi. No crackles. ABDOMEN: Soft, non-tender. LEGS: Significant ulceration, chronic ulceration of the right leg and cellulitis. NERVOUS SYSTEM: No focal deficit. LABS: WBC 11.8, INR is 4.2. ASSESSMENT: 1. Right leg pain and swelling, possible acute cellulitis. 2. Possible acute right leg deep venous thrombosis with possible Coumadin failure. 3. Elevated PT/INR. 4. Hyponatremia. 5. Increased white count. 6. History of asthma. 7. History of factor V Leiden deficiency. 8. Diabetes mellitus, type 2. 9. History of deep vein thrombosis. 10.History of gastroesophageal reflux disease. 11.History of gastrointestinal bleed. 12.Hypertension. 13.History of degenerative joint disease. 14.History of pneumonia. 15.History of pulmonary embolism. 16.History of hypothyroidism. 17.History of ocular migraines. 18.History of cellulitis. 19.History of hypothyroidism. 20.History of diabetes mellitus, type 2. 21.History of methicillin-resistant Staphylococcus aeruginosa. 22.History of cholecystectomy. 23.History of nonhealing ulcer on the right foot. 24.History of basal cell carcinoma of the scalp. 25.Obesity with body mass index of 43.8. 26.FULL CODE. RECOMMENDATIONS AND DISCUSSION: I recommend to continue current medications, continue with the monitoring, symptomatic treatment. Otherwise, Eliqusavanah b.i.d. Consider once the PT/INR is improving. Other than that, we will continue the current medications. IV heparin has been initiated currently. Continue with Kefzol. Hematology/oncology evaluation. Guarded prognosis because of multiple complex medical issues. Further recommendations to follow. MMODL / IJN: [id number] / MTDD
[2020-05-25 20:15] LABS: Glucose,Whole Blood 234 mg/dL (75-99)
[2020-05-25] MEDS: INSULIN ASPART (NovoLOG) 100 UNIT/ML VIAL SQ SCH (22:11)
[2020-05-25] MEDS: MONTELUKAST 10 MG TAB PO SCH (22:12)
[2020-05-25] MEDS: SODIUM CHLORIDE 0.9% 1,000 ML IV SCH (22:13)
--- NOTE | 2020-05-25 23:29 | P.CONS ---
History of Present Illness - Reason for Consult Consult date: 05/25/20 Right lower extremity cellulitis Requesting physician: Johnny Lieberman - Chief Complaint Right leg swelling and redness x few days - History of Present Illness Patient is 75 year male with a past medical history significant for chronic venous stasis ulcer to the lower extremity and secondary cellulitis with multiple admission to the hospital patient did follow up with Dr. Ratliff in the wound care center with the patient was seen yesterday she was noticed to have a marked swelling and redness on the medial aspect of his right thigh and right lower extremity with concern for extensive cellulitis patient was advised admission to the hospital for IV antibiotic therapy, patient mentioning increasing swelling and redness to the right leg on the last few days. Denies having any history of any trauma patient described the pain to the legs with more of a burning and sharp intensity 6-7 out of 10 and no radiation and no drainage, on the Route to the ER the patient was afebrile he did have elevated to 12,000 patient has been started on cefazolin 2 g every 8 hours infectious disease was consulted for further management of antibiotic therapy Review of Systems Positive point has been mentioned in the HPI rest of the systems are negative Past Medical History Past Medical History: Asthma, Blood Disorder, Cancer, Diabetes Mellitus, Deep Vein Thrombosis (DVT), GERD/Reflux, GI Bleed, Hypertension, Osteoarthritis (OA), Pneumonia, Pulmonary Embolus (PE), Thyroid Disorder, Vascular Disorder Additional Past Medical History / Comment(s): occular migraines, seasonal al lergies, SOB with activity, hx cellulitis, clotting disorder-Factor V- Leiden, basal cell skin ca(folicular) , received shingles vaccine and hepatits a vaccine, hypothyrodism, Type 2 diabetes, medication controlled, heart murmur, kidney stones, YSABEL History of Any Multi-Drug Resistant Organisms: MRSA Year Discovered:: 2012 MDRO Source:: bilateral legs Past Surgical History: Cholecystectomy, Hernia Repair, Tonsillectomy Additional Past Surgical History / Comment(s): colonoscopy, basal cell carcinoma from scalp, nasal/sinus, meet filter.pilonsial cyst removed, rt index finger sx- removed calcium deposit, umbilical hernia x 2 Past Anesthesia/Blood Transfusion Reactions: No Reported Reaction Past Psychological History: No Psychological Hx Reported Smoking Status: Former smoker - Past Family History Mother Family Medical History: Coronary Artery Disease (CAD), Rheumatoid Arthritis (RA) Additional Family Medical History / Comment(s): age 70 heart problems- RA. Father Family Medical History: No Reported History Additional Family Medical History / Comment(s): age 72 Medications and Allergies Home Medications Medication Instructions Recorded Confirmed Type Omeprazole [PriLOSEC] 20 mg PO DAILY 12/29/13 05/24/20 History Atorvastatin [Lipitor] 10 mg PO DAILY 10/04/17 05/24/20 History Diltiazem HCl 120 mg PO TID 11/21/18 05/24/20 History HYDROcodone/APAP 5-325MG [[place] 1 tab PO BID PRN 10/20/19 05/24/20 History 5-325] Levothyroxine Sodium [Synthroid] 200 mcg PO DAILY 10/20/19 05/24/20 History Losartan [Cozaar] 50 mg PO DAILY 10/20/19 05/24/20 History Montelukast Sodium [Singulair] 10 mg PO HS 10/20/19 05/24/20 History Spironolactone 50 mg PO DAILY 10/20/19 05/24/20 History glipiZIDE XL [Glucotrol XL] 20 mg PO DAILY 10/20/19 05/24/20 History Albuterol Sulfate [Ventolin HFA] 2 puff INHALATION RT-Q4H PRN 01/06/20 05/24/20 History Warfarin Sodium [Coumadin] 7.5 mg PO HS 01/06/20 05/24/20 History Budesonide-Formot 160-4.5 Mcg 2 puff INHALATION RT-BID 03/31/20 05/24/20 History [Symbicort 160-4.5 Mcg Inhaler] Clotrimazole/Betamethasone Dip 1 applic TOPICAL DIRECTED PRN 03/31/20 05/24/20 History [Lotrisone Cream] Testosterone Cypionate 1 ml IM Q30D 03/31/20 05/24/20 History [Depo-Testosterone] tiZANidine HCL [Zanaflex] 4 mg PO TID 03/31/20 05/24/20 History Furosemide [Lasix] 40 mg PO DAILY 05/24/20 05/24/20 History Triamterene-Hctz 37.5-25Mg 1 cap PO DAILY 05/24/20 05/24/20 History [Dyazide 37.5-25 Capsule] Allergies Allergy/AdvReac Type Severity Reaction Status Date / Time Iodinated Contrast Media Allergy Anaphylaxis Verified 05/24/20 19:31 iodine Allergy Anaphylaxis Verified 05/24/20 19:31 latex Allergy Unknown Verified 05/24/20 19:31 lisinopril Allergy Cough Verified 05/24/20 19:31 shellfish derived Allergy Anaphylaxis Verified 05/24/20 19:31 codeine AdvReac Rapid Verified 05/24/20 19:31 Heart Rate Physical Exam Vitals: Vital Signs Temp Pulse Pulse Resp BP BP Pulse Ox 05/25/20 20:45 97.6 F 59 L 16 161/70 94 L 05/25/20 18:46 97.7 F 67 18 127/82 05/25/20 14:43 97.7 F 83 18 130/78 95 05/25/20 12:10 76 05/25/20 12:01 72 05/25/20 08:11 73 05/25/20 07:59 69 05/25/20 07:00 98 F 69 72 18 158/85 137/82 96 05/25/20 00:14 98.8 F 82 18 129/83 96 Intake and Output 05/25/20 05/25/20 05/26/20 14:59 22:59 06:59 Intake Total 1883.952 76.414 Output Total 725 1050 Balance 1158.952 -973.586 Intake: Intake, IV Titration 251.952 76.414 Amount Heparin Sod,Pork in 0.45% 141.952 76.414 NaCl 25,000 unit In 0.45 % NaCl 1 250ml.bag @ 15. 84 UNITS/KG/HR 22.992 mls /hr IV .[id number] [facility] Rx#: [id number] Sodium Chloride 0.9% 1, 60 000 ml @ 20 mls/hr IV . Q24H [facility] Rx#:[id number] ceFAZolin 2 gm In Sodium 50 Chloride 0.9% 50 ml @ 100 mls/hr IVPB Q8HR [facility] Rx# :[id number] Oral 1632 Output: Urine 725 1050 Other: Voiding Method Urinal Urinal # Voids 1 1 Weight 145.15 kg GENERAL DESCRIPTION: An elderly male lying in bed, no distress. No tachypnea or accessory muscle of respiration use. HEENT: Shows Pallor , no scleral icterus. Oral mucous membrane is dry. No pharyngeal erythema or thrush NECK: Trachea central, no thyromegaly. LUNGS: Unlabored breathing. Clear to auscultation anteriorly. No wheeze or crackle. HEART: S1, S2, regular rate and rhythm. No loud murmur ABDOMEN: Soft, no tenderness , guarding or rigidity, no organomegaly EXTREMITIES: Bilateral lower extremity swelling more marked on the right leg swelling and redness of the right medial thigh. SKIN: No rash, no masses palpable. NEUROLOGICAL: The patient is awake, alert, oriented x3, mood and affect normal. Results CBC & Chem 7: 05/25/20 04:29 05/24/20 17:59 Labs: Abnormal Lab Results - Last 24 Hours (Table) 05/25/20 05/25/20 05/25/20 Range/Units 04:29 04:29 12:52 WBC 11.8 H (3.8-10.6) k/uL RDW 16.9 H (11.5-15.5) % Neutrophils # 9.9 H (1.3-7.7) k/uL Lymphocytes # 0.9 L (1.0-4.8) k/uL PT 41.4 H (9.0-12.0) sec INR 4.2 H (<1.2) APTT >200.0 H* 118.0 H* (22.0-30.0) sec POC Glucose (mg/dL) (75-99) mg/dL 05/25/20 05/25/20 Range/Units 20:14 20:26 WBC (3.8-10.6) k/uL RDW (11.5-15.5) % Neutrophils # (1.3-7.7) k/uL Lymphocytes # (1.0-4.8) k/uL PT (9.0-12.0) sec INR (<1.2) APTT 91.5 H (22.0-30.0) sec POC Glucose (mg/dL) 234 H (75-99) mg/dL Microbiology - Last 24 Hours (Table) 05/24/20 17:59 Blood Culture - Preliminary Blood No Growth after 24 hours Assessment and Plan Assessment: 1- patient with acute right lower extremity cellulitis in this patient who did have diffuse swelling redness of the right lower extremity with a history of venous stasis ulcer previous cellulitis likely streptococcal disease (1) Cellulitis of right leg Current Visit: No Status: Acute Code(s): L03.115 - CELLULITIS OF RIGHT LOWER LIMB SNOMED Code(s): 785667098 Plan: 1- cefazolin 2 g every 8 hours We will follow on clinical condition and cultures to further adjust medication if needed Thank you for this consultation will follow this patient with you Time with Patient: Greater than 30
[2020-05-26 05:38] LABS: Anisocytosis Slight; Basophils # (A) 0.1 k/uL (0-0.2); Basophils % (A) 1 %; Eosinophils # (A) 0.4 k/uL (0-0.7); Eosinophils % (A) 3 %; HGB 13.8 gm/dL (13.0-17.5); Lymphocytes # (A) 0.9 k/uL (1.0-4.8); Lymphocytes % (A) 8 %; MCH 27.7 pg (25.0-35.0); MCHC 32.1 g/dL (31.0-37.0); MCV 86.3 fL (80.0-100.0); Mean Platelet Volume 8.3; Monocytes # (A) 0.6 k/uL (0-1.0); Monocytes % (A) 5 %; Neutrophils # (A) 9.5 k/uL (1.3-7.7); Neutrophils % (A) 82 %; RBC 4.99 m/uL (4.30-5.90); RDW 16.7 % (11.5-15.5); WBC 11.6 k/uL (3.8-10.6)
[2020-05-26 05:47] LABS: Platelet Count 760 k/uL (150-450)
[2020-05-26 05:48] LABS: INR 2.9 (<1.2); Partial Thromboplastin Time 38.4 sec (22.0-30.0); Prothrombin Time 28.1 sec (9.0-12.0)
[2020-05-26] MEDS: HEPARIN SODIUM,PORCINE 5,000 UNIT/ML 1 ML VIAL IV PRN ×2 (06:01→15:41)
[2020-05-26] MEDS: LEVOTHYROXINE 100 MCG TAB PO SCH (06:01)
[2020-05-26] MEDS: HEPARIN SOD,PORK IN 0.45% NACL 25,000 UNIT in 0.45% NACL 1 250ML.BAG IV SCH ×3 (07:17→18:06)
[2020-05-26 07:19] LABS: Glucose,Whole Blood 196 mg/dL (75-99)
[2020-05-26] MEDS: SYMBICORT 160-4.5 MCG INHALER INHALATION SCH ×2 (07:23→21:11)
[2020-05-26] MEDS: INSULIN ASPART (NovoLOG) 100 UNIT/ML VIAL SQ SCH ×4 (08:30→21:00)
[2020-05-26] MEDS: PANTOPRAZOLE 40 MG TABLET PO SCH (08:32)
[2020-05-26] MEDS: SPIRONOLACTONE 25 MG TAB PO SCH (08:32)
[2020-05-26] MEDS: FUROSEMIDE 40 MG TAB PO SCH (08:32)
[2020-05-26] MEDS: LOSARTAN 25 MG TAB PO SCH (08:33)
[2020-05-26] MEDS: DILTIAZEM ORAL 60 MG TAB PO SCH ×3 (08:33→20:48)
[2020-05-26] MEDS: glipiZIDE 5 MG TAB PO SCH ×2 (08:33→20:48)
[2020-05-26] MEDS: ATORVASTATIN 10 MG TAB PO SCH (08:33)
[2020-05-26] MEDS: TRIAMTERENE-HCTZ 37.5-25MG 1 EACH CAP PO SCH (08:35)
[2020-05-26] MEDS: tiZANidine 4 MG TAB PO SCH ×3 (08:35→20:48)
[2020-05-26] MEDS ORDERED: PHYTONADIONE 5 MG in SODIUM CHLORIDE 0.9% 50 ML IVPB STA (09:23)
[2020-05-26] MEDS: HYDROcodone/APAP 5-325MG 1 EACH TAB PO PRN (11:24)
[2020-05-26 11:45] LABS: Glucose,Whole Blood 209 mg/dL (75-99)
[2020-05-26 15:45] LABS: Hemoglobin A1C 8.9 % (4.0-6.0)
--- NOTE | 2020-05-26 17:27 | PN ---
PROGRESS NOTE DATE OF SERVICE: 05/26/2020 This 75-year-old gentleman admitted with acute DVT of the right leg as well as cellulitis is on antibiotics. The patient also is on IV heparin. Transition to Eliquis is being planned at this time. Patient is also given vitamin K because the PT/INR is elevated. No chest pain. No palpitations. No fever. PHYSICAL EXAMINATION: Alert and oriented x3. Pulse 60, blood pressure 129/70, respiration 20, temperature 97.6, pulse ox 95% on room air. HEENT: Conjunctivae normal. NECK: No jugular venous distention. CARDIOVASCULAR SYSTEM: S1, S2 muffled. RESPIRATORY SYSTEM: Breath sounds diminished at the bases. A few scattered rhonchi. ABDOMEN: Soft, non-tender. LEGS: Right leg cellulitis and edema and swelling present. NERVOUS SYSTEM: No focal deficit. LABS: Labs at this time show WBC 11.6, hemoglobin 13.8. Accu-Cheks noted. INR 2.9. ASSESSMENT: 1. Right leg pain and swelling with possible acute cellulitis. 2. Acute right leg deep venous thrombosis; possibly Coumadin failure. 3. Elevated PT/INR. 4. On heparin drip. 5. Hyponatremia. 6. Increased white count. 7. History of asthma. 8. History of factor V Leiden deficiency. 9. History of IVC filter. 10.Diabetes mellitus, type 2. 11.History of deep vein thrombosis. 12.History of gastroesophageal reflux disease. 13.History of gastrointestinal bleed. 14.Hypertension. 15.History of degenerative joint disease. 16.History of pneumonia. 17.History of pulmonary embolism. 18.History of hypothyroidism. 19.History of ocular migraine. 20.History of cellulitis. 21.History of hypothyroidism. 22.History of diabetes mellitus, type 2. 23.History of methicillin-resistant Staphylococcus aeruginosa. 24.History of cholecystectomy. 25.History of nonhealing ulcer on the right foot. 26.History of basal cell carcinoma of the scalp. 27.Obesity with body mass index of 43.8. 28.FULL CODE. RECOMMENDATIONS AND DISCUSSION: I recommend to continue current medications, continue with the monitoring, symptomatic treatment. Continue with vitamin K. Continue the antibiotics. Repeat labs. Closely monitor. Guarded prognosis because of multiple complex medical issues. Further recommendations to follow. MMODL / IJN: [id number] /
[2020-05-26 17:33] LABS: Glucose,Whole Blood 231 mg/dL (75-99)
[2020-05-26 20:33] LABS: Glucose,Whole Blood 128 mg/dL (75-99)
[2020-05-26] MEDS: MONTELUKAST 10 MG TAB PO SCH (20:48)
[2020-05-26] MEDS ORDERED: HEPARIN SODIUM,PORCINE 5,000 UNIT/ML 1 ML VIAL IV PRN (23:28)
[2020-05-27] MEDS: SODIUM CHLORIDE 0.9% 1,000 ML IV SCH ×2 (00:47→20:05)
--- NOTE | 2020-05-27 03:31 | PN ---
PROGRESS NOTE DATE OF SERVICE: 05/26/2020 REASON FOR FOLLOWUP: Right lower extremity cellulitis. INTERVAL HISTORY: The patient is currently afebrile. The patient is breathing comfortably. Right medial thigh swelling has slightly decreased. The patient denies having any chest pain or shortness of breath or cough. No diarrhea. PHYSICAL EXAMINATION: Blood pressure 130/72 with a pulse of 61, temperature is 97.7. He is 95% on room air. General description is an elderly male up in the chair in no distress. RESPIRATORY SYSTEM: Unlabored breathing, decreased intense breath sounds. No wheeze. HEART: S1, S2. Regular rate and rhythm. ABDOMEN: Soft. No tenderness. Right mid thigh swelling has decreased. LABS: Blood culture negative so far. DIAGNOSTIC IMPRESSION AND PLAN: Patient with right medial thigh cellulitis in this patient who did have a history of chronic venous stasis ulcer with secondary cellulitis. Patient responded to cefazolin, to continue and will monitor clinical course closely. MMODL / IJN: [id number] /
[2020-05-27] MEDS: HEPARIN SOD,PORK IN 0.45% NACL 25,000 UNIT in 0.45% NACL 1 250ML.BAG IV SCH ×2 (05:19→16:31)
[2020-05-27] MEDS: LEVOTHYROXINE 100 MCG TAB PO SCH (06:02)
[2020-05-27 06:17] LABS: Anisocytosis Slight; Basophils # (A) 0.1 k/uL (0-0.2); Basophils % (A) 1 %; Eosinophils # (A) 0.4 k/uL (0-0.7); Eosinophils % (A) 4 %; HCT 46.4 % (39.0-53.0); HGB 14.3 gm/dL (13.0-17.5); Lymphocytes % (A) 9 %; MCH 26.7 pg (25.0-35.0); MCHC 30.8 g/dL (31.0-37.0); MCV 86.6 fL (80.0-100.0); Mean Platelet Volume 7.7; Monocytes # (A) 0.6 k/uL (0-1.0); Monocytes % (A) 5 %; Neutrophils # (A) 9.4 k/uL (1.3-7.7); Neutrophils % (A) 81 %; Platelet Count 261 k/uL (150-450); RBC 5.36 m/uL (4.30-5.90); RDW 16.6 % (11.5-15.5); WBC 11.7 k/uL (3.8-10.6)
[2020-05-27 06:31] LABS: INR 1.3 (<1.2); Partial Thromboplastin Time 65.1 sec (22.0-30.0); Prothrombin Time 12.9 sec (9.0-12.0)
[2020-05-27 07:04] LABS: Glucose,Whole Blood 185 mg/dL (75-99)
[2020-05-27] MEDS: SYMBICORT 160-4.5 MCG INHALER INHALATION SCH ×2 (07:38→20:14)
[2020-05-27] MEDS: INSULIN ASPART (NovoLOG) 100 UNIT/ML VIAL SQ SCH ×4 (10:02→20:49)
[2020-05-27] MEDS: DILTIAZEM ORAL 60 MG TAB PO SCH ×3 (10:03→20:04)
[2020-05-27] MEDS: TRIAMTERENE-HCTZ 37.5-25MG 1 EACH CAP PO SCH (10:05)
[2020-05-27] MEDS: tiZANidine 4 MG TAB PO SCH ×3 (10:05→20:04)
[2020-05-27] MEDS: glipiZIDE 5 MG TAB PO SCH ×2 (10:05→20:06)
[2020-05-27] MEDS: SPIRONOLACTONE 25 MG TAB PO SCH (10:06)
[2020-05-27] MEDS: FUROSEMIDE 40 MG TAB PO SCH (10:08)
[2020-05-27] MEDS: LOSARTAN 25 MG TAB PO SCH (10:08)
[2020-05-27] MEDS: ATORVASTATIN 10 MG TAB PO SCH (10:08)
[2020-05-27] MEDS: PANTOPRAZOLE 40 MG TABLET PO SCH (10:09)
[2020-05-27] MEDS: HYDROcodone/APAP 5-325MG 1 EACH TAB PO PRN (10:09)
[2020-05-27 11:31] LABS: Glucose,Whole Blood 140 mg/dL (75-99)
[2020-05-27] MEDS: APIXABAN 5 MG TAB PO SCH (15:45)
[2020-05-27 16:53] LABS: Glucose,Whole Blood 206 mg/dL (75-99)
--- NOTE | 2020-05-27 19:24 | PN ---
PROGRESS NOTE DATE OF SERVICE: 05/27/2020 This 75-year-old gentleman admitted with DVT of the right leg as well as cellulitis, was on antibiotics. Coumadin failure suspected. Patient has IVC filter. Patient is on IV heparin. PT/INR is elevated. Patient given vitamin K. INR is 1.3 at this time. No chest pain. No palpitations. Hematology/Oncology is recommending Eliquis. PHYSICAL EXAMINATION: Alert and oriented x3 pulse 74, blood pressure 124/71, respiratory rate 16. Temperature 98.2, pulse ox 94% on room air. HEENT: Conjunctivae normal. NECK: No JVD. CARDIOVASCULAR: S1, S2 muffled. RESPIRATIONS: Breath sounds diminished in the bases. A few scattered rhonchi and crackles. ABDOMEN: Soft, obese. LEGS: Left leg cellulitis. NERVOUS SYSTEM: No focal deficits. LABS: WBC 11.2, hemoglobin 14.3. ASSESSMENT: 1. Right leg pain as well as cellulitis with possible acute cellulitis and swelling. 2. Acute right leg deep vein thrombosis, possibly Coumadin failure. 3. Elevated PT and INR, improved. 4. On heparin drip. 5. Planning on Eliquis. 6. Hyponatremia. 7. Increased WBC. 8. History of asthma. 9. History of factor 5 Leiden deficiency. 10.History of IVC filter. 11.Diabetes mellitus type 2. 12.History of deep vein thrombosis. 13.History of gastroesophageal reflux disease. 14.History of gastrointestinal bleed. 15.Hypertension. 16.History of degenerative joint disease. 17.History of pneumonia. 18.History of pulmonary embolism. 19.History of hypothyroidism. 20.History of ocular migraines. 21.History of cellulitis. 22.History of hypothyroidism. 23.History of diabetes type 2. 24.History of MRSA. 25.History of cholecystectomy. 26.Nonhealing ulcer on the right foot. 27.History of basal cell carcinoma of the scalp. 28.Obesity with body mass index 43.6. 29.FULL CODE. RECOMMENDATIONS AND DISCUSSION: I recommend to continue current medications, management and symptomatic treatment. Recommend to stop the IV heparin. Initiate Eliquis 10 mg p.o. b.i.d. followed by 5 mg p.o. b.i.d. as recommended by Hematology/Oncology. INR 1.3. Otherwise continue the antibiotics and the rest of medications. Guarded prognosis because of multiple complex medical issues. Further recommendations to follow. MMODL / IJN: [id number] /
[2020-05-27] MEDS: MONTELUKAST 10 MG TAB PO SCH (20:05)
[2020-05-27 20:06] LABS: Glucose,Whole Blood 138 mg/dL (75-99)
[2020-05-28] MEDS: HYDROcodone/APAP 5-325MG 1 EACH TAB PO PRN (03:50)
--- NOTE | 2020-05-28 05:01 | PN ---
PROGRESS NOTE DATE OF SERVICE: 05/27/2020 REASON FOR FOLLOWUP: Right lower extremity cellulitis. INTERVAL HISTORY: The patient is currently afebrile. Patient is breathing comfortably. The patient denies having any chest pain or shortness of breath or cough. No nausea, no vomiting. No abdominal pain. Overall swelling and redness of right leg has decreased. PHYSICAL EXAMINATION: Blood pressure 134/65, pulse of 56, temperature 98.1. He is 93% on room air. General description is an elderly male up in the bed in no distress. RESPIRATORY SYSTEM: Unlabored breathing, decreased intense breath sounds. No wheeze. HEART: S1, S2. Regular rate and rhythm. ABDOMEN: Soft, no tenderness. Right leg swelling has improved. LABS: Hemoglobin 14.3, white count 11.7. DIAGNOSTIC IMPRESSION AND PLAN: Patient with acute right lower extremity cellulitis. The patient seemed to have shown clinical response to the cefazolin 2 grams q.8 to continue while inpatient. Finish therapy with oral antibiotic on discharge. Continue with supportive care. MMODL / IJN: [id number] /
[2020-05-28] MEDS: LEVOTHYROXINE 100 MCG TAB PO SCH (06:22)
[2020-05-28 07:18] LABS: Glucose,Whole Blood 180 mg/dL (75-99)
[2020-05-28] MEDS: SYMBICORT 160-4.5 MCG INHALER INHALATION SCH ×2 (07:34→19:29)
[2020-05-28] MEDS: INSULIN ASPART (NovoLOG) 100 UNIT/ML VIAL SQ SCH ×4 (08:24→21:29)
[2020-05-28] MEDS: APIXABAN 5 MG TAB PO SCH ×2 (08:25→21:28)
[2020-05-28] MEDS: DILTIAZEM ORAL 60 MG TAB PO SCH ×3 (08:25→21:51)
[2020-05-28] MEDS: SPIRONOLACTONE 25 MG TAB PO SCH (08:25)
[2020-05-28] MEDS: LOSARTAN 25 MG TAB PO SCH (08:25)
[2020-05-28] MEDS: FUROSEMIDE 40 MG TAB PO SCH (08:26)
[2020-05-28] MEDS: ATORVASTATIN 10 MG TAB PO SCH (08:26)
[2020-05-28] MEDS: glipiZIDE 5 MG TAB PO SCH ×2 (08:26→21:28)
[2020-05-28] MEDS: PANTOPRAZOLE 40 MG TABLET PO SCH (08:26)
[2020-05-28] MEDS: tiZANidine 4 MG TAB PO SCH ×3 (08:26→21:52)
[2020-05-28] MEDS: TRIAMTERENE-HCTZ 37.5-25MG 1 EACH CAP PO SCH (08:30)
[2020-05-28 11:20] LABS: Glucose,Whole Blood 190 mg/dL (75-99)
[2020-05-28 16:48] LABS: Glucose,Whole Blood 183 mg/dL (75-99)
--- NOTE | 2020-05-28 18:08 | PN ---
PROGRESS NOTE DATE OF SERVICE: 05/28/2020 This 75-year-old gentleman who was admitted with right leg venous cellulitis is being closely monitored. The patient has right leg DVT. The antibiotics switched out Eliquis at this time. The patient is ready for discharge today but apparently patient is protesting. No chest pain. No palpitations. No fever. PHYSICAL EXAMINATION: Alert and oriented x2. Pulse is 75, blood pressure 150/70, respiration 20, temperature 98 degrees, pulse ox 94% on room air. HEENT: Conjunctivae normal. NECK: No JVD. RESPIRATORY SYSTEM: Breath sounds diminished at the bases. No rhonchi. No crackles. ABDOMEN: Soft, obese, nontender. LEGS: Right leg cellulitis. NERVOUS SYSTEM: No focal deficits. LAB STUDIES: WBC 11.7, INR 1.3. Other labs are noted. ASSESSMENT: 1. Right leg pain as well as acute cellulitis and swelling on the right leg. 2. Acute right leg deep vein thrombosis, possible Coumadin failure. 3. Elevated PT, INR, improved. 4. On heparin drip. 5. Planning on Eliquis on discharge. 6. Hyponatremia. 7. Increased WBC. 8. History of asthma. 9. History of factor 5 Leiden deficiency. 10.History IVC filter. 11.Diabetes type 2. 12.History of deep vein thrombosis. 13.History of gastroesophageal reflux disease. 14.History of gastrointestinal bleed. 15.Hypertension. 16.History of degenerative joint disease. 17.History of pneumonia. 18.History of pulmonary embolism. 19.History of hypothyroidism. 20.History of ocular migraine. 21.History of cellulitis. 22.History of hypothyroidism. 23.History of diabetes type 2. 24.History of MRSA. 25.History of cholecystectomy. 26.Nonhealing ulcer of the right foot. 27.History of basal cell carcinoma of the scalp. 28.Obesity with body mass index of 43.6. 29.FULL CODE. RECOMMENDATIONS AND DISCUSSION: Recommend to continue current medications, monitor and symptomatic treatment. Otherwise, at this time, I would recommend continue antibiotics, initiate Eliquis 10 mg p.o. b.i.d. Closely follow with multiple consultants. Further recommendations to follow. Follow with Case Management. MMODL / IJN: [id number] / MARY JO
--- NOTE | 2020-05-28 19:06 | P.PN ---
Subjective Progress Note Date: 05/28/20 Principal diagnosis: DVT/Cellulitis No acute complaints today Objective - Vital Signs Vital signs: Vital Signs Temp 98 F 05/28/20 12:09 Pulse 75 05/28/20 12:09 Resp 20 05/28/20 12:09 BP 151/76 05/28/20 12:09 Pulse Ox 94 L 05/28/20 12:09 Intake & Output 05/27/20 05/28/20 05/28/20 18:59 06:59 18:59 Intake Total 50 230 Output Total 1000 Balance 50 -770 Weight 141.5 kg Intake: Intake, IV Titration 50 230 Amount Sodium Chloride 0.9% 1, 180 000 ml @ 20 mls/hr IV . Q24H [facility] Rx#:[id number] ceFAZolin 2 gm In Sodium 50 50 Chloride 0.9% 50 ml @ 100 mls/hr IVPB Q8HR [facility] Rx# :[id number] Output: Urine 1000 Other: Voiding Method Urinal Urinal Urinal # Voids 2 1 # Bowel Movements 1 0 - Exam - Constitutional General appearance: cooperative, no acute distress, obese - EENT Eyes: anicteric sclerae, EOMI ENT: hearing grossly normal - Neck Neck: no lymphadenopathy - Respiratory Respiratory: bilateral: CTA - Cardiovascular Rhythm: regular Heart sounds: normal: S1, S2 Abnormal Heart Sounds: no systolic murmur, no diastolic murmur, no rub, no S3 Gallop, no S4 Gallop, no click, no other leg Peripheral Edema: right: 2+, left: None - Gastrointestinal General gastrointestinal: no absent bowel sounds, no decreased bowel sounds, no distended, no hepatomegaly, no hyperactive bowel sounds, normal bowel sounds, no organomegaly, no rigid, no scaphoid, soft, no splenomegaly, no tenderness, no umbilical hernia, no ventral hernia - Integumentary posterior aspect of the right thigh is swollen, reddened, indurated skin, no open lesions or drainage - Neurologic Neurologic: CNII-XII intact - Musculoskeletal Musculoskeletal: strength equal bilaterally - Psychiatric Psychiatric: A&O x's 3, appropriate affect, intact judgment & insight - Labs CBC & Chem 7: 05/27/20 05:18 05/24/20 17:59 Labs: Abnormal Lab Results - Last 24 Hours (Table) 05/27/20 05/27/20 05/28/20 Range/Units 16:51 20:05 07:17 POC Glucose (mg/dL) 206 H 138 H 180 H (75-99) mg/dL 05/28/20 Range/Units 11:18 POC Glucose (mg/dL) 190 H (75-99) mg/dL Microbiology - Last 24 Hours (Table) 05/24/20 17:59 Blood Culture - Preliminary Blood No Growth after 72 hours Assessment and Plan Plan: Assessment and Plan: Femoral vein, deep venous thrombosis Without any other doppler reports other then in 2014, it cannot be said for certain if current right lower extremity, proximal thigh, represents chronic, acute or an acute on chronic DVT. With all of the uncertainty, recommendation f rom a Hematology standpoint is for discontinuation of Coumadin due to suspected failure of anticoagulation and for patient to be changed to - Continue on Eliquis dosing twice a day at discharge Cellulitis - Per ID Current Visit: Yes Status: Acute Code(s): L03.90 - CELLULITIS, UNSPECIFIED SNOMED Code(s): 765545230 Doctor attests: I performed a history and physical examination of this patient, developed impression and plan of care. Discussed with dictator. I agree with dictators note, documented as a scribe.
[2020-05-28] MEDS: ALBUTEROL NEBULIZED 2.5 MG/3 ML INHALATION PRN (19:31)
[2020-05-28 19:46] LABS: Glucose,Whole Blood 176 mg/dL (75-99)
[2020-05-28] MEDS: MONTELUKAST 10 MG TAB PO SCH (21:28)
[2020-05-28] MEDS: ALPRAZolam 0.25 MG TAB PO PRN (21:29)
--- NOTE | 2020-05-28 21:35 | PN ---
PROGRESS NOTE DATE OF SERVICE: 05/28/2020 REASON FOR FOLLOWUP: Right lower extremity cellulitis. INTERVAL HISTORY: The patient is currently afebrile. He is breathing comfortably. Denies having any chest pain or shortness of breath or cough. No nausea. No abdominal pain. Overall swelling and redness to the right medial neck has decreased. PHYSICAL EXAMINATION: Blood pressure 151/76, pulse 95, temperature of 98. He is 94% on room air. General description: The patient is an elderly male lying in bed in no distress. Respiratory system: Unlabored breathing, clear to auscultation anteriorly. Heart S1, S2. Regular rate and rhythm. Abdomen soft, no tenderness. Right has improved. LABS: No new labs have been obtained today. DIAGNOSTIC IMPRESSION AND PLAN: Patient with acute right medial thigh leg cellulitis. The patient seemed to have shown overall clinical improvement on IV cefazolin to continue to finish therapy with oral Keflex and continue supportive care. MMODL / IJN: [id number] /
[2020-05-28] MEDS: SODIUM CHLORIDE 0.9% 1,000 ML IV SCH (23:15)
[2020-05-29] MEDS: LEVOTHYROXINE 100 MCG TAB PO SCH (05:20)
[2020-05-29 07:23] LABS: Glucose,Whole Blood 163 mg/dL (75-99)
[2020-05-29] MEDS: ALBUTEROL NEBULIZED 2.5 MG/3 ML INHALATION PRN ×3 (07:31→19:56)
[2020-05-29] MEDS: SYMBICORT 160-4.5 MCG INHALER INHALATION SCH ×2 (07:32→19:58)
[2020-05-29] MEDS: tiZANidine 4 MG TAB PO SCH ×3 (08:05→20:36)
[2020-05-29] MEDS: DILTIAZEM ORAL 60 MG TAB PO SCH ×3 (08:05→20:36)
[2020-05-29] MEDS: APIXABAN 5 MG TAB PO SCH ×2 (08:05→20:36)
[2020-05-29] MEDS: INSULIN ASPART (NovoLOG) 100 UNIT/ML VIAL SQ SCH ×4 (08:05→20:37)
[2020-05-29] MEDS: ATORVASTATIN 10 MG TAB PO SCH (08:05)
[2020-05-29] MEDS: TRIAMTERENE-HCTZ 37.5-25MG 1 EACH CAP PO SCH (08:06)
[2020-05-29] MEDS: glipiZIDE 5 MG TAB PO SCH ×2 (08:06→20:36)
[2020-05-29] MEDS: FUROSEMIDE 40 MG TAB PO SCH (08:06)
[2020-05-29] MEDS: LOSARTAN 25 MG TAB PO SCH (08:06)
[2020-05-29] MEDS: PANTOPRAZOLE 40 MG TABLET PO SCH (08:06)
[2020-05-29] MEDS: SPIRONOLACTONE 25 MG TAB PO SCH (08:06)
[2020-05-29 12:01] LABS: Glucose,Whole Blood 213 mg/dL (75-99)
[2020-05-29 17:16] LABS: Glucose,Whole Blood 146 mg/dL (75-99)
--- NOTE | 2020-05-29 17:37 | PN ---
PROGRESS NOTE DATE OF SERVICE: 05/29/2020 This 75-year-old gentleman with acute cellulitis and multiple medical problems, being closely monitored. No chest pain. No palpitations. No fever. PHYSICAL EXAMINATION: Alert and oriented x3. Pulse is 68, blood pressure 147/80, respiration 18, temperature 97.2, pulse ox 94% on room air. HEENT: Conjunctivae normal. NECK: No JVD. CARDIOVASCULAR: S1, S2 muffled. LUNGS: Diminished breath sounds at the bases. No rhonchi, no crackles. ABDOMEN: Soft, nontender. LEGS: No swelling. NERVOUS SYSTEM: No focal deficits. LABS: WBC 11.5, glucose 138. ASSESSMENT: 1. Right leg pain as well as acute cellulitis with swelling of the right leg. 2. Acute right leg deep vein thrombosis, possibly Coumadin failure. 3. Elevated PT/INR, improved. 4. On heparin drip. 5. Eliquis on discharge. 6. Hyponatremia. 7. Increased WBC. 8. History of asthma. 9. History of factor 5 Leiden deficiency. 10.History of IVC filter. 11.History of deep vein thrombosis. 12.History of gastroesophageal reflux disease. 13.History of gastrointestinal bleed. 14.Hypertension. 15.Degenerative joint disease. 16.History of pneumonia. 17.History of pulmonary embolism. 18.History of hypothyroidism. 19.History of ocular migraine. 20.History of cellulitis. 21.History of hypothyroidism. 22.History of diabetes type 2. 23.History of MRSA. 24.History of cholecystectomy. 25.Nonhealing ulcer on the right foot. 26.History of basal cell carcinoma of the scalp. 27.Obesity with body mass index of 43.6. 28.FULL CODE. RECOMMENDATIONS AND DISCUSSION: I recommend to continue current medications, continue to monitor, symptomatic treatment. Continue antibiotics. Continue with Eliquis. Guarded prognosis because of multiple complex medical issues. Further recommendations to follow. MMODL / IJN: [id number] /
[2020-05-29 19:56] LABS: Glucose,Whole Blood 201 mg/dL (75-99)
[2020-05-29] MEDS: MONTELUKAST 10 MG TAB PO SCH (20:36)
[2020-05-29] MEDS: SODIUM CHLORIDE 0.9% 1,000 ML IV SCH (20:38)
--- NOTE | 2020-05-29 23:43 | PN ---
PROGRESS NOTE DATE OF SERVICE: 05/29/2020 REASON FOR FOLLOWUP: Right lower extremity cellulitis. INTERVAL HISTORY: Patient is currently afebrile. The patient is breathing comfortably. The patient denies having any chest pain. Some shortness of breath. No nausea. No vomiting. No abdominal pain. Right leg swelling and redness has improved. PHYSICAL EXAMINATION: Blood pressure 116/66, pulse of 74. Temperature is 97.6. He is 96% on room air. General description is an elderly male lying in bed in no distress. Respiratory system: Unlabored breathing, clear to auscultation anteriorly. Heart S1, S2. Regular rate and rhythm. Right leg swelling has decreased. LABS: No new labs have been obtained today. DIAGNOSTIC IMPRESSION AND PLAN: Patient with acute right lower extremity cellulitis in this patient who did have diffuse swelling and redness. Patient clinically responded to Zosyn to continue with oral Keflex. Continue supportive care. MMODL / IJN: [id number] /
[2020-05-30] MEDS: LEVOTHYROXINE 100 MCG TAB PO SCH (06:05)
[2020-05-30 07:12] LABS: Glucose,Whole Blood 171 mg/dL (75-99)
[2020-05-30] MEDS: SYMBICORT 160-4.5 MCG INHALER INHALATION SCH ×2 (07:33→20:09)
[2020-05-30] MEDS: ALBUTEROL NEBULIZED 2.5 MG/3 ML INHALATION PRN ×3 (07:33→20:10)
[2020-05-30] MEDS: INSULIN ASPART (NovoLOG) 100 UNIT/ML VIAL SQ SCH ×4 (08:20→21:42)
[2020-05-30] MEDS: ATORVASTATIN 10 MG TAB PO SCH (08:20)
[2020-05-30] MEDS: APIXABAN 5 MG TAB PO SCH ×2 (08:20→21:42)
[2020-05-30] MEDS: DILTIAZEM ORAL 60 MG TAB PO SCH ×3 (08:21→21:42)
[2020-05-30] MEDS: FUROSEMIDE 40 MG TAB PO SCH (08:21)
[2020-05-30] MEDS: glipiZIDE 5 MG TAB PO SCH ×2 (08:21→21:42)
[2020-05-30] MEDS: SPIRONOLACTONE 25 MG TAB PO SCH (08:22)
[2020-05-30] MEDS: tiZANidine 4 MG TAB PO SCH ×2 (08:22→16:09)
[2020-05-30] MEDS: PANTOPRAZOLE 40 MG TABLET PO SCH (08:22)
[2020-05-30] MEDS: LOSARTAN 25 MG TAB PO SCH (08:22)
[2020-05-30] MEDS: TRIAMTERENE-HCTZ 37.5-25MG 1 EACH CAP PO SCH (08:22)
[2020-05-30 11:33] LABS: Glucose,Whole Blood 170 mg/dL (75-99)
--- NOTE | 2020-05-30 15:54 | PN ---
PROGRESS NOTE DATE OF SERVICE: 05/30/2020 This 75-year-old gentleman who was admitted with right leg pain and cellulitis and also DVT. The patient has been transitioned to Eliquis from Coumadin. No chest pain. No palpitations. No fever. PHYSICAL EXAMINATION: GENERAL: Patient is alert and oriented times three. VITAL SIGNS: Pulse 75, blood pressure 130/72, respirations 15, temperature 98 degrees, pulse ox 94% on room air HEENT: Conjunctivae normal. NECK: No jugular venous distention. RESPIRATORY: Breath sounds diminished at the bases. A few scattered rhonchi and crackles. HEART: S1 and S2, muffled. ABDOMEN: Soft, no tenderness. EXTREMITIES: No edema, no swelling. NERVOUS: No focal deficits. LABS: Glucose 170. WBC 11.7. ASSESSMENT: 1. Right leg pain as well as acute cellulitis with swelling of the right leg. 2. Acute right leg deep venous thrombosis, possibly Coumadin failure. Switched over to Eliquis at this time. 3. Elevated PT, INR, improved. 4. Status post IV heparin drip and monitor. 5. Hyponatremia. 6. Increased WBC. 7. History of asthma. 8. History of factor 5 Leiden deficiency. 9. History of IVC filter. 10.History of deep vein thrombosis. 11.Gastroesophageal reflux disease. 12.History of gastrointestinal bleed. 13.Hypertension. 14.Degenerative joint disease. 15.History of pneumonia. 16.History of pulmonary embolism. 17.History of hypothyroidism. 18.History of focal migraine. 19.History of cellulitis. 20.History of hypothyroidism. 21.History of diabetes mellitus type 2. 22.History of Methicillin resistant Staphylococcus aureus. 23.History of cholecystectomy. 24.Nonhealing ulcer on the right foot. 25.History of basal cell carcinoma of the scalp. 26.Obesity with body mass index of 43.6. 27.FULL CODE. RECOMMENDATIONS AND DISCUSSION: Recommend to continue current medications, continue symptomatic treatment. Otherwise at this time continue the cellulitis. I would also recommend repeat labs in the morning. Further recommendations to follow. MMODL / IJN: [id number] /
[2020-05-30 15:56] LABS: ALT 18 U/L (4-49); AST 34 U/L (17-59); African American GFR (CKD) 67 (>60 ml/min/1.73 sqM); Albumin 3.8 g/dL (3.5-5.0); Albumin/Globulin Ratio 1.1; Alkaline Phosphatase 92 U/L (38-126); Anion Gap 10 mmol/L; Blood Urea Nitrogen 31 mg/dL (9-20); Calcium 9.1 mg/dL (8.4-10.2); Carbon Dioxide 25 mmol/L (22-30); Chloride 100 mmol/L (98-107); Globulin 3.6 g/dL; Glucose 125 mg/dL (74-99); Non-African American GFR(CKD) 58 (>60 ml/min/1.73 sqM); Potassium 4.7 mmol/L (3.5-5.1); Sodium 135 mmol/L (137-145); Total Bilirubin 0.5 mg/dL (0.2-1.3); Total Protein 7.4 g/dL (6.3-8.2)
[2020-05-30] MEDS ORDERED: tiZANidine 4 MG TAB PO PRN (16:13)
[2020-05-30 17:29] LABS: Glucose,Whole Blood 230 mg/dL (75-99)
[2020-05-30 20:02] LABS: Glucose,Whole Blood 145 mg/dL (75-99)
[2020-05-30 21:22] VITALS: RESP 16
[2020-05-30] MEDS: MONTELUKAST 10 MG TAB PO SCH (21:42)
[2020-05-30] MEDS: SODIUM CHLORIDE 0.9% 1,000 ML IV SCH (21:43)
[2020-05-31 04:49] VITALS: BP 150/80; TEMP 98.1
[2020-05-31 05:04] LABS: Anisocytosis Slight; Basophils # (A) 0.1 k/uL (0-0.2); Basophils % (A) 1 %; Eosinophils # (A) 0.4 k/uL (0-0.7); Eosinophils % (A) 3 %; HCT 46.8 % (39.0-53.0); HGB 14.9 gm/dL (13.0-17.5); Hypochromasia Slight; Lymphocytes # (A) 0.9 k/uL (1.0-4.8); Lymphocytes % (A) 8 %; MCH 27.6 pg (25.0-35.0); MCHC 31.8 g/dL (31.0-37.0); MCV 86.9 fL (80.0-100.0); Mean Platelet Volume 7.2; Monocytes # (A) 0.4 k/uL (0-1.0); Monocytes % (A) 3 %; Neutrophils # (A) 9.8 k/uL (1.3-7.7); Neutrophils % (A) 84 %; Platelet Count 289 k/uL (150-450); RBC 5.38 m/uL (4.30-5.90); RDW 16.7 % (11.5-15.5); WBC 11.7 k/uL (3.8-10.6)
[2020-05-31] MEDS: LEVOTHYROXINE 100 MCG TAB PO SCH (05:28)
--- NOTE | 2020-05-31 06:57 | PN ---
PROGRESS NOTE DATE OF SERVICE: 05/30/2020 REASON FOR FOLLOWUP: Right lower extremity cellulitis. INTERVAL HISTORY: The patient is currently afebrile. The patient is breathing comfortably. The patient denies having any chest pain or shortness of breath or cough. Overall right leg swelling and redness has decreased. PHYSICAL EXAMINATION: Blood pressure is 137/77, pulse of 63, temperature is 97.7. General description is an elderly male up in the bed in no distress. RESPIRATORY SYSTEM: Unlabored breathing, clear to auscultation. HEART: S1, S2. Regular rate and rhythm. ABDOMEN: Soft, no tenderness. LABS: BUN of 21, creatinine 1.23. Liver enzymes are normal. Blood culture negative. DIAGNOSTIC IMPRESSION AND PLAN: Patient with acute right lower extremity cellulitis in this patient who did show overall clinical improvement on IV cefazolin. Finish therapy with oral Keflex. Continue with supportive care. MMODL / IJN: [id number] /
[2020-05-31 07:17] LABS: Glucose,Whole Blood 139 mg/dL (75-99)
[2020-05-31] MEDS: APIXABAN 5 MG TAB PO SCH (08:27)
[2020-05-31] MEDS: ATORVASTATIN 10 MG TAB PO SCH (08:27)
[2020-05-31] MEDS: DILTIAZEM ORAL 60 MG TAB PO SCH (08:27)
[2020-05-31] MEDS: LOSARTAN 25 MG TAB PO SCH (08:28)
[2020-05-31] MEDS: FUROSEMIDE 40 MG TAB PO SCH (08:28)
[2020-05-31] MEDS: glipiZIDE 5 MG TAB PO SCH (08:28)
[2020-05-31] MEDS: TRIAMTERENE-HCTZ 37.5-25MG 1 EACH CAP PO SCH (08:28)
[2020-05-31] MEDS: SPIRONOLACTONE 25 MG TAB PO SCH (08:28)
[2020-05-31] MEDS: PANTOPRAZOLE 40 MG TABLET PO SCH (08:28)
[2020-05-31] MEDS: INSULIN ASPART (NovoLOG) 100 UNIT/ML VIAL SQ SCH (08:29)
[2020-05-31] MEDS: ALBUTEROL NEBULIZED 2.5 MG/3 ML INHALATION PRN ×2 (09:02→12:20)
[2020-05-31] MEDS: SYMBICORT 160-4.5 MCG INHALER INHALATION SCH (09:02)
[2020-05-31 12:23] VITALS: PULSE 72
[2020-05-31 13:34] VITALS: BMI 42.2
--- NOTE | 2020-05-31 15:17 | P.PN ---
Progress Note - Text 75-year-old gentleman patient is from wound clinic he came with cellulitis and DVT of the leg patient is on anticoagulation cellulitis is improving patient is going home today we'll follow in the wound clinic on Sunday
--- NOTE | 2020-05-31 16:51 | PN ---
PROGRESS NOTE DATE OF SERVICE: 05/31/2020 REASON FOR FOLLOWUP: Right lower extremity cellulitis. INTERVAL HISTORY: The patient is currently afebrile. The patient is breathing comfortably. Denies having any chest pain or shortness of breath or cough. No nausea, no vomiting, no abdominal pain or worsening pain to the right lower extremity. PHYSICAL EXAMINATION: Blood pressure is 150/80 with a pulse of 57, temperature 98.1. He is 94% on room air. General description is an elderly male up in the bed in no distress. RESPIRATORY SYSTEM: Unlabored breathing. Clear to auscultation anteriorly. HEART: S1, S2. Regular rate and rhythm. ABDOMEN: Soft. No tenderness. Right medial thigh area swelling and redness have almost resolved. DIAGNOSTIC IMPRESSION AND PLAN: Patient with right lower extremity cellulitis right mid thigh area with overall improvement on cefazolin. Finish therapy with a short course of oral Keflex. Continue supportive care. Prescription sent to the pharmacy. MMODL / IJN: [id number] /
--- NOTE | 2020-06-01 02:45 | DS ---
DISCHARGE SUMMARY DATE OF SERVICE: 05/31/2020 FINAL DIAGNOSES: 1. Right leg pain as well as acute cellulitis and swelling of the right leg. 2. Acute right leg deep venous thrombosis with possible Coumadin failure, switched over to Eliquis at this time. 3. Elevated PT, INR, improved. 4. Status post IV heparin drip and monitor. 5. Hyponatremia. 6. Increased WBC. 7. History of asthma. 8. History of Factor V Leiden deficiency. 9. History of IVC filter. 10.History of deep vein thrombosis. 11.History of gastroesophageal reflux disease. 12.History of gastrointestinal bleed. 13.Hypertension. 14.History of degenerative joint disease. 15.History of pneumonia. 16.History of pulmonary embolism. 17.History of hypothyroidism. 18.History of ocular migraine. 19.History of cellulitis. 20.History of hypothyroidism. 21.History of diabetes mellitus type 2. 22.History of MRSA. 23.History of cholecystectomy. 24.Nonhealing ulcer on the right foot. 25.History of basal cell carcinoma of the scalp. 26.Obesity with body mass index of 43.6. 27.FULL CODE. DISCHARGE DISPOSITION: The patient will be discharged in stable condition with guarded prognosis. Total time taken 35 minutes. HISTORY OF PRESENT ILLNESS: This 75-year-old gentleman with a past medical history of multiple medical problems admitted with features of right leg cellulitis as well as possible DVT. The patient was treated symptomatically. Coumadin failure considered and Eliquis was initiated by Hematology/Oncology. Antibiotics were recommended by Dr. Silva. The patient improved significantly. Patient is followed by Dr. Tatyana Mora in the out patient setting. On exam, vitals are stable. CARDIOVASCULAR: S1, S2 muffled. ABDOMEN: Soft. NERVOUS SYSTEM: No focal deficits. Patient will be discharged in stable condition with guarded prognosis. Further plans to follow up with Dr. Ratliff in the outpatient setting as well as primary physician. DISCHARGE ADVICE AND MEDICATIONS: 1. Diet is cardiac. 2. Activity limited until followup. 3. Follow up with Dr. Tatyana Mora in 2-3 days. 4. Follow up with Dr. Hagan as recommended. 5. Follow up with Dr. Ratliff as recommended. Medications will be as follows: 1. Cozaar 50 mg p.o. daily. 2. Testosterone q.30 days. 3. Cardizem 120 mg t.i.d. 4. Dyazide 1 p.o. daily. 5. Glucotrol XL 20 mg daily. 6. Lasix 40 mg daily. 7. Lipitor 10 mg daily. 8. Clotrimazole as before. 9. [place] 5 mg b.i.d. p.r.n. 10.Prilosec 20 mg p.o. daily. 11.Singulair 10 mg at bedtime. 12.Aldactone 50 mg daily. 13.Symbicort 160/4.5 two puffs b.i.d. 14.Synthroid 200 mcg p.o. daily. 15.Ventolin p.r.n. 16.Zanaflex 4 mg p.o. t.i.d. 17.Eliquis 10 mg p.o. b.i.d. followed by 5 mg p.o. b.i.d. per Hematology/Oncology. 18.Keflex 500 mg q.8 for 7 days. 19.Silver sulfadiazine topical application. Follow up with Dr. Ratliff and Dr. Silva as recommended. MMODL / IJN: [id number] /
[2020-06-03] MEDS ORDERED: APIXABAN 5 MG TAB PO SCH (21:00)
== END 2020-05-31 15:40 | disposition home or self-care (01) | DRG 300 ==
LOC: EC 15:21 → 5NMEDONC 21:11 → 4SSUR 21:42 → 6NMEDSUR 05-25 17:49
PROVIDERS: ADMIT Hospitalist; ATTEND Hospitalist
DX: I82.411 Acute embolism and thrombosis of right femoral vein (principal); E87.1 Hypo-osmolality and hyponatremia; Z68.41 Body mass index [BMI] 40.0-44.9, adult; D68.51 Activated protein C resistance; L03.115 Cellulitis of right lower limb; I87.333 Chronic venous hypertension (idiopathic) with ulcer and inflammation of bilateral lower extremity; E03.9 Hypothyroidism, unspecified; E66.01 Morbid (severe) obesity due to excess calories; I10 Essential (primary) hypertension; M19.90 Unspecified osteoarthritis, unspecified site; K21.9 Gastro-esophageal reflux disease without esophagitis; J45.909 Unspecified asthma, uncomplicated; G43.109 Migraine with aura, not intractable, without status migrainosus; E11.51 Type 2 diabetes mellitus with diabetic peripheral angiopathy without gangrene; L97.519 Non-pressure chronic ulcer of other part of right foot with unspecified severity; E11.621 Type 2 diabetes mellitus with foot ulcer; Z79.899 Other long term (current) drug therapy; Z87.19 Personal history of other diseases of the digestive system; Z79.890 Hormone replacement therapy; Z79.84 Long term (current) use of oral hypoglycemic drugs; Z79.51 Long term (current) use of inhaled steroids; Z79.01 Long term (current) use of anticoagulants; Z88.8 Allergy status to other drugs, medicaments and biological substances; Z91.041 Radiographic dye allergy status; Z88.5 Allergy status to narcotic agent; Z91.013 Allergy to seafood; Z86.14 Personal history of Methicillin resistant Staphylococcus aureus infection; Z86.711 Personal history of pulmonary embolism; Z87.442 Personal history of urinary calculi; Z87.891 Personal history of nicotine dependence; Z90.49 Acquired absence of other specified parts of digestive tract; Z90.89 Acquired absence of other organs; Z98.890 Other specified postprocedural states; Z95.828 Presence of other vascular implants and grafts; Z87.01 Personal history of pneumonia (recurrent); Z82.49 Family history of ischemic heart disease and other diseases of the circulatory system; Z82.61 Family history of arthritis; Z91.040 Latex allergy status; Z86.718 Personal history of other venous thrombosis and embolism; Z85.828 Personal history of other malignant neoplasm of skin
CPT/HCPCS: 36415; 80053; 83036; 83605; 85025; 85610; 85730; 87040; 94640; 96361; 96365; 96366; 96375; 99285

== ENCOUNTER → 2020-06-29 | Outpatient (CLI) | payer MEDICARE, BC ==
--- NOTE | 2020-06-29 15:57 | US ---
LOWER EXTREMITY VENOUS INSUFFICIENCY DATE: 06/29/2020 CLINICAL HISTORY: I87.333 CHR VENOUS HYPERTENSION. SIDE PERFORMED: Right FINDINGS: 1) Color flow is present and patency is documented in the following vessels. EIV Common Femoral Vein Deep Femoral Vein Femoral Vein Popliteal Vein Proximal Calf Veins Greater Saph Vein 2) There is venous reflux noted at the following venous levels: Right EIV,CFV, FV and popliteal vein. Pathology Laboratory Aides Teacher notes: Morbidly obese patient. Technically difficult, limited study. There does appear to be thready flow in noncompressible portions of the femoral vein indicative of ch ronic DVT. There could be a duplicate system vs tributary branches. Nonspecific subcutaneous edema within the popliteal fossa. IMPRESSION: 1. Thready flow and incomplete compressibility within portions of the right femoral vein suggesting c hronic DVT. No occlusive/acute DVT identified from the groin to the upper calf. 2. Right lower extremity venous reflux within the external iliac vein, common femoral vein, femoral v ein, and popliteal vein. 3. Some subcutaneous edematous change within the popliteal fossa. This may be arising from a Fitzgerald's cyst.
== END | disposition home or self-care (01) ==
LOC: RADUSWWP 13:58
PROVIDERS: ATTEND Surgery Vascular Surgery
DX: I87.1 Compression of vein (principal); I87.2 Venous insufficiency (chronic) (peripheral); R60.0 Localized edema

== ENCOUNTER → 2020-08-30 | Outpatient (CLI) | payer MEDICARE, BC ==
[2020-08-31 04:06] LABS: African American GFR (CKD) 69.1 (60.0-200.0); Albumin 4.1 g/dL (3.80-4.90); Albumin/Globulin Ratio 1.58 (1.60-3.17); BUN/Creat Ratio 20.83 Ratio (12.00-20.00); Calcium 9.1 mg/dL (8.7-10.3); Globulin 2.6 g/dL (1.6-3.3); Non-African American GFR(CKD) 59.6 (60.0-200.0); Potassium 5.1 mmol/L (3.5-5.5); Total Bilirubin 0.3 mg/dL (0.3-1.2); Total Protein 6.7 g/dL (6.2-8.2)
== END | disposition home or self-care (01) ==
LOC: LABWHC1 16:04
PROVIDERS: ATTEND Family Medicine
DX: E11.9 Type 2 diabetes mellitus without complications (principal); E29.1 Testicular hypofunction; I35.0 Nonrheumatic aortic (valve) stenosis; M54.5 Low back pain
CPT/HCPCS: 36415; 80053; 83036

== ENCOUNTER → 2020-11-08 | Outpatient (CLI) | payer MEDICARE, BC ==
[2020-11-09 02:15] LABS: Chol/HDL Ratio 4.21
== END | disposition home or self-care (01) ==
LOC: LABWHC1 14:44
PROVIDERS: ATTEND Family Medicine
DX: E29.1 Testicular hypofunction (principal)
CPT/HCPCS: 36415; 80061; 84403

== ENCOUNTER → 2020-12-20 | Outpatient (CLI) | payer MEDICARE, BC ==
[2020-12-21 01:32] LABS: Hemoglobin A1C 7.9 % (4.0-6.0)
== END | disposition home or self-care (01) ==
LOC: LABWHC1 15:27
PROVIDERS: ATTEND Family Medicine
DX: E11.9 Type 2 diabetes mellitus without complications (principal)
CPT/HCPCS: 36415; 83036

== ENCOUNTER → 2020-12-29 | Outpatient (CLI) | payer MEDICARE, BC ==
--- NOTE | 2020-12-29 13:44 | P.PAINPG ---
Subjective Progress Note Date: 12/29/20 This is 74 years old male, with a history of severe and chronic low back pain is diagnosed with lumbar spondylosis and lumbar facet arthropathy, and lumbar radiculopathy, recently we have done diagnostic medial branch block lumbar area the first block was done in 03/16/2020 and his pain before the block was 6/10 dropped to 0/10 after the block and he got pain relief for a few days, and the second diagnostic block done in 04/06/2020 he reported that his pain before the block was 5/10 dropped to 0/10 after the block and he got relief for a few days, the pain is constant and increases with any activity. Plan was to schedule him for R L3-4, 4-5, and 5-1 RFA. We have not seen him since his last follow up visit. Do not schedule radiofrequency ablation given the tendon. He did receive 80% relief from the medial branch blocks and would like to proceed with the ablation. He also endorses left-sided back pain but would like to proceed with the right-sided first before we consider the left. Objective - Exam Physical Examinations : -Constitutiona : Cooperative , not in acute distress . -HEENT : nech : supple , no Lymphadenopathy , normal thyroid size . : eyes : no ptosis , no icterus, no photophobia . - neurologic : Cranial nerve II to XII intact , no focal neurological deffecit . -psychatric : alert , oriented X 3 , appropriate affect , intact judgment and insight . -Lymphatic : no Lymphadenopathy . - musculoskeltal : Lumber spine moter stegnth lower extremities ,thigh and legs 5/5 Right side , 5/5 Left side deep tendon reflexes : normal Knee Jerk , normal ankle Jerk lumber facet Loading Test =positive Right , negative Left Range of motion of the lumbar spine Flexion 30 degrees, extension 10 degrees strait leg raising test = negative bilaterally Fabere test= negative Assessment and Plan Plan: Lumbar spondylosis with lumbar facet arthropathy without myelopathy. Lumbar radiculopathy. Patient had a positive result after diagnostic medial branch block 2 , he had significant improvement of his pain after the block, patient will be good candidate to have RFA of the right-sided medial branch L2, L3 ,L4 ,L5 The facet joint at right-sided L3 4 and L4 5 and L5-S1 Patient has to hold Coumadin for 3 days before the procedure I have spent 25 minutes on patient care today. The time was used to review the medical records including relevant urine studies and prescription history, review of the available imaging, evaluation and examination of the patient, coordination of care with medical staff and if applicable referring physicians, as well as creation of the medical record. PQRS Measure Charge Sheet PQRS Narrative: Smoking Status Former smoker Hx Alcohol Use (MH) No Home Medications: Ambulatory Orders Omeprazole [PriLOSEC] 20 mg PO DAILY 12/29/13 Atorvastatin [Lipitor] 10 mg PO DAILY 10/04/17 Diltiazem HCl 120 mg PO TID 11/21/18 HYDROcodone/APAP 5-325MG [[place]udd 5-325] 1 tab PO BID PRN 10/20/19 Levothyroxine Sodium [Synthroid] 200 mcg PO DAILY 10/20/19 Losartan [Cozaar] 50 mg PO DAILY 10/20/19 Montelukast Sodium [Singulair] 10 mg PO HS 10/20/19 Spironolactone 50 mg PO DAILY 10/20/19 glipiZIDE XL [Glucotrol XL] 20 mg PO DAILY 10/20/19 Albuterol Sulfate [Ventolin HFA] 2 puff INHALATION RT-Q4H PRN 01/06/20 Budesonide-Formot 160-4.5 Mcg [Symbicort 160-4.5 Mcg Inhaler] 2 puff INHALATION RT-BID 03/31/20 Clotrimazole/Betamethasone Dip [Lotrisone Cream] 1 applic TOPICAL DIRECTED PRN 03/31/20 Testosterone Cypionate [Depo-Testosterone] 1 ml IM DIRECTED 03/31/20 tiZANidine HCL [Zanaflex] 4 mg PO TID 03/31/20 Furosemide [Lasix] 40 mg PO DAILY 05/24/20 Triamterene-Hctz 37.5-25Mg [Dyazide 37.5-25 Capsule] 1 cap PO DAILY 05/24/20 Apixaban [Eliquis] 5 mg PO BID tab 05/28/20 SILVER sulfADIAZINE CREAM [Silvadene Cream] 1 applic TOPICAL DAILY PRN 12/28/20 Controlled Substance Measures - Controlled Substance Measures Is patient prescribed a controlled substance at discharge?: No
[2020-12-29 14:05] VITALS: BP 146/81; PULSE 87; RESP 16; TEMP 97.9
== END ==
LOC: PNWHC3 13:24
PROVIDERS: ATTEND Anesthesiology
DX: M47.816 Spondylosis without myelopathy or radiculopathy, lumbar region (principal); M54.16 Radiculopathy, lumbar region; Z87.891 Personal history of nicotine dependence
CPT/HCPCS: 99211

== ENCOUNTER → 2021-01-25 | Outpatient (CLI) | payer MEDICARE, BC ==
[2021-01-25 21:40] LABS: Basophils # (A) 0.09 X 10*3/uL (0.00-0.10); Eosinophils # (A) 0.28 X 10*3/uL (0.04-0.35); HCT 41.6 % (39.6-50.0); HGB 12.9 g/dL (13.0-17.0); Lymphocytes # (A) 0.88 X 10*3/uL (0.90-5.00); Lymphocytes % (A) 9.4 %; MCH 27.7 pg (27.0-32.0); MCV 89.3 fL (80.0-97.0); Mean Platelet Volume 10.1 fL (9.5-12.2); Monocytes # (A) 0.69 X 10*3/uL (0.20-1.00); Monocytes % (A) 7.4 %; Neutrophils # (A) 7.23 X 10*3/uL (1.80-7.70); Neutrophils % (A) 77.1 %; Platelet Count 295 X 10*3/uL (140-440); RBC 4.66 X 10*6/uL (4.40-5.60); WBC 9.37 X 10*3/uL (4.50-10.00)
== END | disposition home or self-care (01) ==
LOC: LABWHC1 15:16
PROVIDERS: ATTEND Nurse Practitioner Family
DX: I87.2 Venous insufficiency (chronic) (peripheral) (principal); I87.333 Chronic venous hypertension (idiopathic) with ulcer and inflammation of bilateral lower extremity; E13.621 Other specified diabetes mellitus with foot ulcer; L03.115 Cellulitis of right lower limb; E66.01 Morbid (severe) obesity due to excess calories
CPT/HCPCS: 36415; 85025

== ENCOUNTER → 2021-02-11 | Day surgery (SDC) | payer MEDICARE, BC ==
[2021-02-10 09:25] VITALS: BMI 43.4
[~2021-02-11] MED LIST changes: +IV FLUID CONTINUATION 1,000 ML IV ONE; +LIDOCAINE 1% (10MG/ML) FOR IV START INTRADERMA ONE; +MIDAZOLAM 2 MG/2 ML VIAL ONE; +ROPIVACAINE 5MG/ML 20ML VIAL ONE; +fentaNYL (PF) 50 MCG/ML 2 ML AMP ONE; +methylPREDNISolone ACETATE 40 MG/ML 1 ML VIAL ONE
[2021-02-11 10:25] LABS: Glucose,Whole Blood 117 mg/dL (75-99)
[2021-02-11 10:27] VITALS: TEMP 97
--- NOTE | 2021-02-11 11:02 | P.PCN ---
Date of Procedure: 02/11/21 Procedure(s) Performed: PREOPERATIVE DIAGNOSIS: 1-Lumbar Spondylosis with Facet Arthropathy without myelopathy. 2- Lumber degenerative disc disease. POSTOPERATIVE DIAGNOSIS: 1- Lumbar Spondylosis with Facet Arthropathy without myelopathy. 2- Lumber degenerative disc disease. PROCEDURES : Right Radiofrequency thermocoagulation, L2 ,L3 , L4 , and L5 medial branch, with fluoroscopic guidance (fluoroscopy images available in the radiology department) ( to denervate the facet joint at Right L3-4 , L4-5 ,and L5-S1 levels ). ANESTHESIA: monitored anesthesia care as per anesthesia department . EBL: Minimal PROCEDURE INDICATION: The patient with low back pain secondary to lumbar facet arthropathy who had more than 50% relief of her pain with previous diagnostic lumbar medial branch block with bupivacaine. PROCEDURE DESCRIPTION / TECHNIQUE: The patient was seen and identified in the preoperative area. Risks, benefits, complications, including but not limited to risk of infection ,bleeding , allergic reactions to the medications and no complete pain releife , and alternatives were discussed with the patient, the patient agreed to proceed with the procedure and signed the consent. IV was started. Vital signs remained stable throughout the procedure. Patient was taken to the OR and time out was completed. The patient was placed in the prone position on the procedure table. The lumber area was prepped and draped in the usual sterile fashion. . Vital signs were closely monitored during the procedure .IV sedation was used during the procedure to decrease patients anxiety. Using AP and then oblique fluoroscopy, the ``eye of the Manjit dog corresponding to the connection between the superior and transverse articular processes of right L2 ,L3, L4, and L5 were identified, marked, and localized with 1% lidocaine. Subsequently, a 18 [id number] radiofrequency cannula with a 10-mm active tip was advanced guided by fluoroscopy to each of the``eyes of the Manjit dog at right L2 ,L3, L4, and L5. Each site then underwent sensory testing at 50 Hz and 0 to 1 volt and motor testing at 2.5 Hz and 0 to 3 volt with local stimulation, but no radicular symptoms down the legs. Thereafter each sites underwent radiofrequency thermocoagulation at 80 degrees celsius for 90 seconds after injecting 0.5 ml of PF Ropivacaine 1ml, then after the thermocoagulation done , 1 ml of the block solution containing Depo-Medrol 40 mg and 4 ml of Ropivacaine 0.5% was injected at the right L2 ,L3 , L4 , and L5 , levels after negative aspiration of CSF and blood and with no paresthesias. Cannulas were retracted while injecting lidocaine 1% until the needle is out. At the end of the procedure, the skin was cleansed and bandages were applied. COMPLICATIONS: No acute complications. DISPOSITION / PLANS: The patient was placed in a supine position and transferred to the recovery area in a stable condition for observation and was discharged from the recovery room after meeting discharge criteria. Home discharge instructions given to the patient by the staff. The patient was reexamined prior to discharge. The patient will schedule a follow up in the clinic in 2-4 weeks.
--- NOTE | 2021-02-11 11:12 | FL ---
EXAMINATION TYPE: FL guided pain mgmt statistic DATE OF EXAM: 02/11/2021 HISTORY: Fluoroscopy time 22 seconds of fluoroscopy provided. IMPRESSION: 1. Fluoroscopy time.
[2021-02-11 11:53] VITALS: RESP 18
[2021-02-11 12:03] VITALS: BP 138/75
[2021-02-11 13:20] VITALS: PULSE 89
== END ==
LOC: ORPAIN 09:58
PROVIDERS: ATTEND Specialist
DX: M47.816 Spondylosis without myelopathy or radiculopathy, lumbar region (principal); M51.36 Other intervertebral disc degeneration, lumbar region; I25.10 Atherosclerotic heart disease of native coronary artery without angina pectoris; I10 Essential (primary) hypertension; E78.5 Hyperlipidemia, unspecified; E07.9 Disorder of thyroid, unspecified; E11.9 Type 2 diabetes mellitus without complications; J44.9 Chronic obstructive pulmonary disease, unspecified; K21.9 Gastro-esophageal reflux disease without esophagitis; Z86.718 Personal history of other venous thrombosis and embolism; Z86.711 Personal history of pulmonary embolism; Z79.84 Long term (current) use of oral hypoglycemic drugs; Z79.890 Hormone replacement therapy; Z79.891 Long term (current) use of opiate analgesic; Z79.51 Long term (current) use of inhaled steroids; Z79.899 Other long term (current) drug therapy; Z88.8 Allergy status to other drugs, medicaments and biological substances; Z91.041 Radiographic dye allergy status; Z91.040 Latex allergy status; Z79.01 Long term (current) use of anticoagulants
CPT/HCPCS: 64635; 64636 ×2; J2250; J1030; J3010; J2795

== ENCOUNTER → 2021-03-07 | Outpatient (CLI) | payer MEDICARE, BC ==
[2021-03-07 13:41] VITALS: BP 139/80; PULSE 95; RESP 16; TEMP 97.6
--- NOTE | 2021-03-07 13:52 | P.PN ---
Subjective Progress Note Date: 03/07/21 This is follow up visit for this 75 years old male, with a history of severe and chronic low back pain is diagnosed with lumbar spondylosis and lumbar facet arthropathy, and lumbar radiculopathy, recently we have done RFA RIGHT medial branch block lumbar area he reported that the pain on the right side improved significantly, and he is complaining of low back pain only on the left side which he never had before, the pain is constant and increases with any activity, denies any motor or sensory deficits, he denies any change in bowel movements or urination Physical Examinations : -Constitutiona : Cooperative , not in acute distress . -HEENT : nech : supple , no Lymphadenopathy , normal thyroid size . : eyes : no ptosis , no icterus, no photophobia . - neurologic : Cranial nerve II to XII intact , no focal neurological deffecit . -psychatric : alert , oriented X 3 , appropriate affect , intact judgment and insight . -Lymphatic : no Lymphadenopathy . - musculoskeltal : Lumber spine moter stegnth lower extremities ,thigh and legs 5/5 Right side , 5/5 Left side deep tendon reflexes : normal Knee Jerk , normal ankle Jerk lumber facet Loading Test =negative Right , positive Left Range of motion of the lumbar spine Flexion 30 degrees, extension 10 degrees strait leg raising test = negative bilaterally Fabere test= negative MRI of the lumbar spine= multilevel lumbar degenerative disc disease multilevel lumbar facet arthropathy Assessment and Plan Lumbar spondylosis with lumbar facet arthropathy without myelopathy. Lumbar radiculopathy. Status post RFA of the medial branch right side, currently patient complaining of severe low back pain on the left side , for this reason patient will be good candidate to half diagnostic medial branch block left side at L3, L4, L5 x2 possible RFA Patient can continue use ELEQUIS for the diagnostic medial branch block with small gauge needle but he has to hold ELEQUIS foe 3 day before and the RFA - PQRS measures = - Patient's medications are documented in the chart. -Tobacco use is negative and counseling.Given. -Patient's has not received pneumococcal vaccine. -Advanced care planning discussed, patient not eligible. -Opiate contract not signed. -Pain positive and follow-up visit/procedure is scheduled. -Patient's blood pressure measured [ 139/80 ] , and documented in the record ,and patient will follow up with the primary care. -Patient's weight was measured and body mass index [ ] above the,normal limits and counseling was done. and patient instructed to follow-up with the primary care physician. -Patient was not identified as an unhealthy alcohol user Objective - Vital Signs Vital signs: Vital Signs Temp 97.6 F 03/07/21 13:39 Pulse 95 03/07/21 13:39 Resp 16 03/07/21 13:39 BP 139/80 03/07/21 13:39 Pulse Ox 99 03/07/21 13:39 Intake & Output 03/06/21 03/07/21 03/07/21 18:59 06:59 18:59 Weight 145.15 kg
== END ==
LOC: PNWHC3 13:26
PROVIDERS: ATTEND Specialist
DX: M47.26 Other spondylosis with radiculopathy, lumbar region (principal); Z98.890 Other specified postprocedural states; Z91.041 Radiographic dye allergy status; Z91.040 Latex allergy status; Z88.5 Allergy status to narcotic agent; Z88.8 Allergy status to other drugs, medicaments and biological substances; Z91.013 Allergy to seafood; Z87.891 Personal history of nicotine dependence
CPT/HCPCS: 99211

== ENCOUNTER → 2021-03-22 | Outpatient (CLI) | payer MEDICARE, BC ==
--- NOTE | 2021-03-23 09:02 | CT ---
Daily. There is EXAMINATION TYPE: CT lower extremity RT w con DATE OF EXAM: 03/22/2021 COMPARISON: 03/10/2020 HISTORY: right upper anterior leg mass CT DLP: 1610 mGycm Automated exposure control for dose reduction was used. CONTRAST: Performed with IV Contrast, patient injected with 100 mL of Isovue 300. Contrast enhanced CT of the r ight lower extremity was performed from the right hip through the right knee. Bone and soft tissue wi ndow settings are submitted. FINDINGS: There are multiple enlarged lymph nodes right inguinal region extending to the right anterior thigh m easuring up to 3.1 cm in greatest dimension. Total number of enlarged lymph nodes is estimated at milo roximately 8. No additional soft tissue masses seen. No intramuscular mass is noted. Degenerative jose nges right hip joint space. There is subcutaneous edema of the mid thigh extending caudally through t he region of the knee which may reflect underlying cellulitis versus fluid retention. There is no len dence for fracture or dislocation. No intraosseous lesion seen. IMPRESSION: 1. Adenopathy about the right inguinal region extending to the anterior right thigh the site of clini robert concern. 2. Subcutaneous stranding may reflect edema and/or cellulitis.
== END | disposition home or self-care (01) ==
LOC: RADCTMAIN 16:17
PROVIDERS: ATTEND Family Medicine
DX: R22.41 Localized swelling, mass and lump, right lower limb (principal)
CPT/HCPCS: 82565; 84520; 73701; 36415; Q9967

== ENCOUNTER → 2021-03-28 | Outpatient (CLI) | payer MEDICARE, BC ==
[2021-03-28 23:52] LABS: Basophils # (A) 0.08 X 10*3/uL (0.00-0.10); Basophils % (A) 0.7 %; Eosinophils # (A) 0.41 X 10*3/uL (0.04-0.35); Eosinophils % (A) 3.8 %; HGB 13.9 g/dL (13.0-17.0); Lymphocytes # (A) 0.91 X 10*3/uL (0.90-5.00); Lymphocytes % (A) 8.4 %; MCH 27.6 pg (27.0-32.0); MCHC 30.9 g/dL (32.0-37.0); MCV 89.3 fL (80.0-97.0); Mean Platelet Volume 10.5 fL (9.5-12.2); Monocytes # (A) 0.71 X 10*3/uL (0.20-1.00); Monocytes % (A) 6.6 %; Neutrophils # (A) 8.39 X 10*3/uL (1.80-7.70); Neutrophils % (A) 77.9 %; Platelet Count 231 X 10*3/uL (140-440); RBC 5.04 X 10*6/uL (4.40-5.60); RDW 17.1 % (11.5-14.5); WBC 10.78 X 10*3/uL (4.50-10.00)
[2021-03-29 00:52] LABS: Hemoglobin A1C 7.8 % (4.0-6.0)
[2021-03-29 04:35] LABS: African American GFR (CKD) 69.1 (60.0-200.0); Albumin 3.8 g/dL (3.80-4.90); Albumin/Globulin Ratio 1.23 (1.60-3.17); Anion Gap 12.8 mmol/L (4.00-12.00); Carbon Dioxide 24.2 mmol/L (21.6-31.8); Globulin 3.1 g/dL (1.6-3.3); Non-African American GFR(CKD) 59.6 (60.0-200.0); Potassium 4.5 mmol/L (3.5-5.5); Total Bilirubin 0.4 mg/dL (0.2-1.2); Total Protein 6.9 g/dL (6.2-8.2)
== END | disposition home or self-care (01) ==
LOC: LABWHC1 15:08
PROVIDERS: ATTEND Family Medicine
DX: E03.9 Hypothyroidism, unspecified (principal); E11.9 Type 2 diabetes mellitus without complications; E29.1 Testicular hypofunction; I10 Essential (primary) hypertension; J45.40 Moderate persistent asthma, uncomplicated; Z86.711 Personal history of pulmonary embolism
CPT/HCPCS: 36415; 80053; 83036; 84403; 84439; 84443; 85025

== ENCOUNTER 2021-05-06 09:29 | Day surgery (SDC) | payer MEDICARE, BC ==
[2021-05-03 15:02] VITALS: BMI 44.7
[~2021-05-06 09:29] MED LIST changes: -IV FLUID CONTINUATION 1,000 ML IV ONE; -LIDOCAINE 1% (10MG/ML) FOR IV START INTRADERMA ONE; -MIDAZOLAM 2 MG/2 ML VIAL ONE; -ROPIVACAINE 5MG/ML 20ML VIAL ONE; -fentaNYL (PF) 50 MCG/ML 2 ML AMP ONE; -methylPREDNISolone ACETATE 40 MG/ML 1 ML VIAL ONE
[2021-05-06 10:05] VITALS: TEMP 97.9
[2021-05-06 10:05] LABS: Glucose,Whole Blood 160 mg/dL (75-99)
[2021-05-06] MEDS ORDERED: methylPREDNISolone ACETATE 40 MG/ML 1 ML VIAL ONE (10:07)
[2021-05-06] MEDS ORDERED: fentaNYL (PF) 50 MCG/ML 2 ML AMP ONE (10:07)
[2021-05-06] MEDS ORDERED: MIDAZOLAM 2 MG/2 ML VIAL ONE (10:07)
[2021-05-06] MEDS ORDERED: ROPIVACAINE 5MG/ML 20ML VIAL ONE (10:07)
--- NOTE | 2021-05-06 10:25 | P.PCN ---
Date of Procedure: 05/06/21 Procedure(s) Performed: PREOPERATIVE DIAGNOSIS : 1- Lumbar spondylosis with Facet Arthropathy without myelopathy . 2- Lumber degenerative disc disease POSTOPERATIVE DIAGNOSIS: 1- Lumbar spondylosis with Facet Arthropathy without myelopathy . 2- Lumber degenerative disc disease PROCEDURE: Diagnostic left ,L3 , L4 , and L5 medial branch block under fluoroscopy guidance(fluoroscopy images available in the radiology Department ) # 2nd ( To target the facet joint between left L4-5 , and L5-S1 )# 1st . ANESTHESIA: Monitored anesthesia care ,as per anesthesia department. EBL: Minimal COMPLICATION: None. IV FLUIDS: 100 mL of normal saline. PROCEDURE INDICATION: Chronic low back pain secondary to Facet arthropathy unresponsive to conservative treatment. PROCEDURE DESCRIPTION: the patient was seen and identified in the preop holding area , risks and benefits and possible complications of the procedure and alternative were discussed with the patient, and the patient agreed to proceed with the procedure and signed the consent IV was started and vital signs monitored during the procedure and fluoroscopy was used to maximize the benefit and accuracy of the needle placement, and sedation was given to decrease patient anxiety, patient was taken to the procedure room and placed in prone position vital signs monitored in the back prepped with chlorhexidine X3 then under strict sterile technique using a right oblique fluoroscopy ,the junction of the transverse process and the superior articulating process of the left ,L3 , L4 , and L5 vertebra which corresponding to the fluoroscopy image of the eye of the Manjit dog on the block side for the medial branches and subsequently , after local infiltration of skin and subcu tissuies with Ropivacaine 0.5 % , one mL at each level ,then 22-gauge 5 inches long Quincke-type needles , 3 needle was used , each one of them placed at the junction of the base of the transverse process and the superior articular process at the appropriate level, and the needle was advanced until the periosteum contacted, needle placement confirmed with AP oblique and lateral view and after appropriate needle placement confirmed, and after negative aspiration for heme and CSF and there was no paresthesia 1.5 mL of Ropivacaine 0.5% mixed with depo-medrol 40 mg , ,then half mL injected at each level after negative aspiration the needle subsequently removed . At the end of the procedure and the needles removed and a bandage applied after the skin was cleaned the cleaning solution patient taken to recovery room in stable condition and monitors in the recovery room for 20-30 minutes and discharged home in stable condition after discharge criteria met and patient will follow up with the pain clinic in 2-4 weeks
[2021-05-06] MEDS ORDERED: IV FLUID CONTINUATION 900 ML IV ONE (10:26)
[2021-05-06 10:29] VITALS: RESP 16
--- NOTE | 2021-05-06 10:32 | FL ---
EXAMINATION TYPE: FL guided pain mgmt statistic DATE OF EXAM: 05/06/2021 HISTORY: Fluoroscopy time 16 seconds of fluoroscopy provided. IMPRESSION: 1. Fluoroscopy time.
[2021-05-06 10:41] VITALS: BP 129/76; PULSE 78
== END 2021-05-06 11:11 ==
LOC: ORPAIN 09:29
PROVIDERS: ATTEND Specialist
DX: M47.816 Spondylosis without myelopathy or radiculopathy, lumbar region (principal); M51.36 Other intervertebral disc degeneration, lumbar region
CPT/HCPCS: 64493; 64494; J2250; J1030; J3010; J2795

== ENCOUNTER → 2021-05-17 | Outpatient (CLI) | payer MEDICARE, BC ==
[2021-05-17 21:33] LABS: Chol/HDL Ratio 3.34; LDL Cholesterol,Calculated 63.2 mg/dL (0.0-131.0); VLDL Calculation 18.8 mg/dL (5.00-40.00)
== END | disposition home or self-care (01) ==
LOC: LABWHC1 14:11
PROVIDERS: ATTEND Family Medicine
DX: E03.9 Hypothyroidism, unspecified (principal); E78.00 Pure hypercholesterolemia, unspecified
CPT/HCPCS: 36415; 80061; 84443

== ENCOUNTER 2021-06-09 10:39 | Day surgery (SDC) | payer MEDICARE, BC ==
[2021-06-08 08:58] VITALS: BMI 43.4
[~2021-06-09 10:39] MED LIST changes: +ALPRAZolam 0.25 MG TAB PO PRN; +ALPRAZolam 0.5 MG TAB PO PRN; +ASPIRIN 325 MG TAB PO STA; +ATORVASTATIN 80 MG TAB PO STA; +HEPARIN SODIUM,PORCINE 10,000 UNIT in SODIUM CHLORIDE 0.9% 1,000 ML IRRIGATION PRN; +HEPARIN SODIUM,PORCINE 2,500 UNIT in SODIUM CHLORIDE 0.9% 250 ML IRRIGATION PRN; -LACTATED RINGERS 1,000 ML IV SCH; +NITROGLYCERIN SL TABS 0.4 MG TAB SUBLINGUAL PRN
[2021-06-09 11:15] LABS: Glucose,Whole Blood 335 mg/dL (75-99)
[2021-06-09] MEDS: SODIUM CHLORIDE 0.9% 1,000 ML in EMPTY BAG 1 BAG IV SCH ×3 (11:16→20:28)
[2021-06-09] MEDS: INSULIN ASPART (NovoLOG) 100 UNIT/ML VIAL SQ SCH ×3 (11:21→20:28)
[2021-06-09] MEDS ORDERED: fentaNYL (PF) 50 MCG/ML 2 ML AMP ONE (11:40)
[2021-06-09 11:50] LABS: Basophils % (A) 0 %; Eosinophils % (A) 1 %; HCT 45.7 % (39.0-53.0); HGB 14.8 gm/dL (13.0-17.5); Lymphocytes # (A) 0.7 k/uL (1.0-4.8); Lymphocytes % (A) 4 %; MCH 28.9 pg (25.0-35.0); MCHC 32.4 g/dL (31.0-37.0); Monocytes # (A) 0.4 k/uL (0-1.0); Monocytes % (A) 2 %; Neutrophils # (A) 17.3 k/uL (1.3-7.7); Neutrophils % (A) 93 %; Platelet Count 290 k/uL (150-450); RBC 5.14 m/uL (4.30-5.90); RDW 15.6 % (11.5-15.5); WBC 18.6 k/uL (3.8-10.6)
[2021-06-09] MEDS: BENZOCAINE SPRAY 1 CAN MUCOUS MEM ONE ×2 (11:50→12:00)
[2021-06-09 11:51] LABS: Eosinophils # (A) 0.1 k/uL (0-0.7)
[2021-06-09] MEDS ORDERED: MIDAZOLAM 2 MG/2 ML VIAL IVP ONE (12:00)
[2021-06-09] MEDS ORDERED: IV FLUID CONTINUATION 1,000 ML IV ONE (12:00)
[2021-06-09] MEDS: MIDAZOLAM 2 MG/2 ML VIAL IVP ONE ×2 (12:02→12:32)
[2021-06-09 12:09] LABS: Calcium 9.6 mg/dL (8.4-10.2)
[2021-06-09 12:19] LABS: Potassium 5.2 mmol/L (3.5-5.1)
[2021-06-09] MEDS ORDERED: LIDOCAINE 1% INJ 10MG/ML (20 ML MDV) SQ ONE (12:32)
[2021-06-09] MEDS ORDERED: fentaNYL (PF) 50 MCG/ML 2 ML AMP IVP ONE (12:32)
--- NOTE | 2021-06-09 12:41 | ECHOT ---
TRANSESOPHAGEAL ECHOCARDIOGRAM DATE OF SERVICE: June 09, 2021. PERFORMING PHYSICIAN: Benjamin Goldberg MD. PROCEDURE PERFORMED: Transesophageal echocardiogram. INDICATION: Aortic stenosis. COMPLICATION: None. LEVEL OF SEDATION: Moderate with sedation length of 15 minutes. PROCEDURE DESCRIPTION: After obtaining an informed consent, the patient was brought to the transesophageal echocardiogram suite. A pulse oximetry and heart rate monitors were attached the patient. Subsequently, the transesophageal echocardiogram probe was advanced through the bite guard to the mid esophageal where 2D echocardiogram images as well as color Doppler, pulse Doppler, continuous-wave Doppler performed. The procedure was completed without any complication. FINDINGS: The left ventricular dimension and systolic function appeared to be within normal limits. The ejection fraction appeared to be in the range of 55-60 percent. There was concentric LVH. Right ventricle appeared to be of normal size and function. The left atrium appeared to be dilated. The aortic valve appeared to be mildly thickened with mitral annular calcifications. There was mild to moderate MR seen. Evidence of a trileaflet aortic valve with restriction of the right coronary cusp and evidence of moderate aortic stenosis with a mean gradient of 25 and peak of 50 mmHg. The pulmonic valve and tricuspid valve appeared to be within normal limits. CONCLUSION: 1. Normal left ventricular dimension and systolic function. 2. Normal right ventricular dimension and systolic function. 3. Moderate biatrial enlargement. 4. Trileaflet aortic valve with evidence of moderate aortic stenosis with a mean gradient of 25 mm and peak of 50 mmHg. 5. Thickened mitral valve leaflets with mild to moderate MR. 6. Mild to moderate tricuspid regurgitation. 7. No evidence of pericardial effusion. MMODL / IJN: [id number] /
[2021-06-09] MEDS ORDERED: IOPAMIDOL-370 125ML BTL INJ ONE (12:45)
[2021-06-09] MEDS ORDERED: RX INFO: IV CONTRAST WAS GIVEN 1 EACH MISC MISCELLANE PRN (12:49)
[2021-06-09] MEDS ORDERED: SODIUM CHLORIDE 0.9% 1,000 ML IV SCH (13:00)
[2021-06-09 15:08] VITALS: PULSE 86; TEMP 98
--- NOTE | 2021-06-09 16:11 | CC ---
CARDIAC CATHETERIZATION REPORT DATE OF SERVICE: 06/09/2021 PERFORMING PHYSICIAN: Benjamin Goldberg M.D. PROCEDURE PERFORMED: 1. Selective right and left coronary angiogram. 2. Right common femoral artery angiogram. INDICATION: Aortic stenosis. COMPLICATIONS: None. LEVEL OF SEDATION: Moderate, with sedation length of 14 minutes. APPROACH: Right common femoral artery. PROCEDURE DESCRIPTION: After obtaining informed consent, the patient was brought to the cardiac manager labor delivery. The right common femoral artery was cannulated using micropuncture technique under ultrasound guidance. The micropuncture wire passed easily. Then I placed a 6-Maltese sheath at the right common femoral artery. Selective right and left coronary angiogram was performed using JR4 and JL4 catheters. The procedure was completed without any complication. SELECTIVE CORONARY ANGIOGRAM: 1. The RCA is a large-caliber vessel. It is a nondominant vessel and appeared to be angiographically normal. 2. The left main is angiographically normal. It bifurcates into LCX and LAD. 3. The LCX is a large-caliber vessel. It is a nondominant vessel and appeared to be angiographically normal. It gives rise to first and second obtuse marginal branches. Both appeared to be angiographically normal. 4. The LAD is a large-caliber vessel. The LAD proximally appeared to be normal. It gives rise to a large diagonal branch which seems to be angiographically normal. The mid LAD has a lesion that appeared to be in the range of 20% to 30% by the bifurcation of second diagonal branch, which had an ostial lesion that appeared to be in the range of 50%. The LAD distally appeared to be angiographically normal. 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 POSTPROCEDURE MANAGEMENT: Medical treatment and follow up with the patient. MMODL / IJN: [id number] /
[2021-06-09 17:24] VITALS: BP 158/78; RESP 16
[2021-06-09 17:34] LABS: Glucose,Whole Blood 309 mg/dL (75-99)
[2021-06-09 20:10] LABS: Glucose,Whole Blood 205 mg/dL (75-99)
== END 2021-06-09 20:45 | disposition home or self-care (01) ==
LOC: CATHCVL 10:39 → 6NMEDSUR 12:44 → CATHCVL 20:45
PROVIDERS: ATTEND Internal Medicine Interventional Cardiology
DX: I35.0 Nonrheumatic aortic (valve) stenosis (principal); Z20.822 Contact with and (suspected) exposure to COVID-19
CPT/HCPCS: 93312; 93320; 93325; 93454; 76937; 80048; 85025; 87635; C1894; C1769 ×2; J2250; J2001; J3010; Q9967

== ENCOUNTER 2021-06-17 09:58 | Day surgery (SDC) | payer MEDICARE, BC ==
[2021-06-17] MEDS ORDERED: LACTATED RINGERS 1,000 ML IV SCH (10:11)
[2021-06-17 10:29] VITALS: RESP 16; TEMP 97.5
[2021-06-17 10:51] LABS: Glucose,Whole Blood 157 mg/dL (75-99)
[2021-06-17] MEDS ORDERED: MIDAZOLAM 2 MG/2 ML VIAL ONE (10:53)
[2021-06-17] MEDS ORDERED: fentaNYL (PF) 50 MCG/ML 2 ML AMP ONE (10:53)
[2021-06-17] MEDS ORDERED: ROPIVACAINE 5MG/ML 20ML VIAL ONE (10:55)
[2021-06-17] MEDS ORDERED: TRIAMCINOLONE ACETONIDE 40 MG/ML 1 ML VIAL ONE (10:55)
--- NOTE | 2021-06-17 11:08 | P.PCN ---
Date of Procedure: 06/17/21 Procedure(s) Performed: PREOPERATIVE DIAGNOSIS : 1- Lumbar spondylosis with Facet Arthropathy without myelopathy . 2- Lumber degenerative disc disease POSTOPERATIVE DIAGNOSIS: 1- Lumbar spondylosis with Facet Arthropathy without myelopathy . 2- Lumber degenerative disc disease PROCEDURE: Diagnostic left ,L3 , L4 , and L5 medial branch block under fluoroscopy guidance(fluoroscopy images available in the radiology Department ) # 2nd ( To target the facet joint between left L4-5 , and L5-S1 )# 2nd . ANESTHESIA: Monitored anesthesia care ,as per anesthesia department. EBL: Minimal COMPLICATION: None. IV FLUIDS: 100 mL of normal saline. PROCEDURE INDICATION: Chronic low back pain secondary to Facet arthropathy unresponsive to conservative treatment. PROCEDURE DESCRIPTION: the patient was seen and identified in the preop holding area , risks and benefits and possible complications of the procedure and alternative were discussed with the patient, and the patient agreed to proceed with the procedure and signed the consent IV was started and vital signs monitored during the procedure and fluoroscopy was used to maximize the benefit and accuracy of the needle placement, and sedation was given to decrease patient anxiety, patient was taken to the procedure room and placed in prone position vital signs monitored in the back prepped with chlorhexidine X3 then under strict sterile technique using a right oblique fluoroscopy ,the junction of the transverse process and the superior articulating process of the left ,L3 , L4 , and L5 vertebra which corresponding to the fluoroscopy image of the eye of the Manjit dog on the block side for the medial branches and subsequently , after local infiltration of skin and subcu tissuies with Ropivacaine 0.5 % , one mL at each level ,then 22-gauge 5 inches long Quincke-type needles , 3 needle was used , each one of them placed at the junction of the base of the transverse process and the superior articular process at the appropriate level, and the needle was advanced until the periosteum contacted, needle placement confirmed with AP oblique and lateral view and after appropriate needle placement confirmed, and after negative aspiration for heme and CSF and there was no paresthesia 1.5 mL of Ropivacaine 0.5% mixed with Kenalog 40 mg , ,then half mL injected at each level after negative aspiration the needle subsequently removed . At the end of the procedure and the needles removed and a bandage applied after the skin was cleaned the cleaning solution patient taken to recovery room in stable condition and monitors in the recovery room for 20-30 minutes and discharged home in stable condition after discharge criteria met and patient will follow up with the pain clinic in 2-4 weeks
[2021-06-17] MEDS ORDERED: IV FLUID CONTINUATION 800 ML IV ONE (11:20)
[2021-06-17 11:28] VITALS: BP 107/65; PULSE 62
--- NOTE | 2021-06-17 11:30 | FL ---
EXAMINATION TYPE: FL guided pain mgmt statistic DATE OF EXAM: 06/17/2021 HISTORY: Fluoroscopy time 8 seconds of fluoroscopy provided. IMPRESSION: 1. Fluoroscopy time.
== END 2021-06-17 11:48 | disposition home or self-care (01) ==
LOC: ORPAIN 09:58
PROVIDERS: ATTEND Specialist
DX: M47.816 Spondylosis without myelopathy or radiculopathy, lumbar region (principal); M51.36 Other intervertebral disc degeneration, lumbar region; I25.10 Atherosclerotic heart disease of native coronary artery without angina pectoris; Z79.01 Long term (current) use of anticoagulants; Z91.041 Radiographic dye allergy status; Z88.8 Allergy status to other drugs, medicaments and biological substances; Z91.040 Latex allergy status; Z88.5 Allergy status to narcotic agent; Z91.013 Allergy to seafood; E07.9 Disorder of thyroid, unspecified; E11.9 Type 2 diabetes mellitus without complications; G43.B0 Ophthalmoplegic migraine, not intractable; K21.9 Gastro-esophageal reflux disease without esophagitis; Z79.899 Other long term (current) drug therapy; Z79.84 Long term (current) use of oral hypoglycemic drugs
CPT/HCPCS: 64493; 64494; J2250; J3301; J3010; J2795

== ENCOUNTER → 2021-07-06 | Outpatient (CLI) | payer MEDICARE, BC ==
--- NOTE | 2021-07-06 14:41 | P.PN ---
Subjective Progress Note Date: 07/06/21 Antony is a 76-year-old male presented to clinic today for follow-up evaluation. Confirmatory left lumbar medial branch block at L4 5 and L5-S1. Reports greater than 90% relief for 2 weeks after the confirmatory procedure. We'll complete his daily activities without interference from pain. Over his low back pain has returned. It's worse with excessive standing and walking. Better with rest and [id number] Tylenol. He denies any bowel or bladder dysfunction, saddle anesthesia, and any other red flag symptoms. He had no other questions or concerns at this time. Objective - Exam Physical Examinations : -Constitutiona : Cooperative , not in acute distress . -HEENT : nech : supple , no Lymphadenopathy , normal thyroid size . : eyes : no ptosis , no icterus, no photophobia . - neurologic : Cranial nerve II to XII intact , no focal neurological deffecit . -psychatric : alert , oriented X 3 , appropriate affect , intact judgment and insight . -Lymphatic : no Lymphadenopathy . - musculoskeltal : Lumber spine moter stegnth lower extremities ,thigh and legs 5/5 Right side , 5/5 Left side deep tendon reflexes : normal Knee Jerk , normal ankle Jerk lumber facet Loading Test =positive Right , positive Left Range of motion of the lumbar spine Flexion 30 degrees, extension 10 degrees strait leg raising test = positive at 20 degree Assessment and Plan Assessment: Assessment and plan Assessment: Lumbar spondylosis with lumbar facet arthropathy without myelopathy. Lumbar radiculopathy. Status post RFA of the medial branch right side Plan: Patient had greater than 90% relief with his diagnostic and confirmatory medial branch block of the left side at L4 5 and L5-S1. Schedule for left-sided lumbar radiofrequency ablation at L4 5 and L5-S1. has to hold [employer] for 3 day before the RFA Dr. Shaver was available by phone for consultation during his visit. I have spent 24 minutes on patient care today. The time was used to review the medical records including relevant urine studies and Prescription history (MAPs), review of the available imaging, evaluation and examination of the patient, coordination of care with the medical staff and if applicable referring physicians, as well as creation of the medical record. - PQRS measures = - Patient's medications are documented in the chart. -Tobacco use is negative -Patient's has received pneumococcal vaccine. -Advanced care planning discussed, patient not eligible. -Opiate contract signed. -Pain positive and follow-up visit/procedure is scheduled. -Patient's blood pressure measured 116/78 , and documented in the record ,and patient will follow up with the primary care. -Patient was not identified as an unhealthy alcohol user Time with Patient: Less than 30
[2021-07-06 14:42] VITALS: BP 116/78; PULSE 86; RESP 18; TEMP 98.5
== END ==
LOC: PNWHC3 14:06
PROVIDERS: ATTEND Student in an Organized Health Care Education/Training Program
DX: M47.26 Other spondylosis with radiculopathy, lumbar region (principal); Z91.040 Latex allergy status; Z88.8 Allergy status to other drugs, medicaments and biological substances; Z88.5 Allergy status to narcotic agent; Z91.041 Radiographic dye allergy status; Z91.013 Allergy to seafood; Z87.891 Personal history of nicotine dependence
CPT/HCPCS: 99211

== ENCOUNTER → 2021-09-26 | Outpatient (CLI) | payer MEDICARE, BC ==
[2021-09-26 22:40] LABS: Basophils # (A) 0.08 X 10*3/uL (0.00-0.10); Basophils % (A) 0.6 %; Eosinophils # (A) 0.34 X 10*3/uL (0.04-0.35); Eosinophils % (A) 2.7 %; HCT 41.2 % (39.6-50.0); HGB 12.5 g/dL (13.0-17.0); Lymphocytes % (A) 3.9 %; MCH 27.6 pg (27.0-32.0); MCHC 30.3 g/dL (32.0-37.0); MCV 90.9 fL (80.0-97.0); Mean Platelet Volume 9.7 fL (9.5-12.2); Monocytes # (A) 0.54 X 10*3/uL (0.20-1.00); Monocytes % (A) 4.3 %; Neutrophils # (A) 11.02 X 10*3/uL (1.80-7.70); Neutrophils % (A) 86.8 %; Platelet Count 327 X 10*3/uL (140-440); RBC 4.53 X 10*6/uL (4.40-5.60); RDW 16.3 % (11.5-14.5); WBC 12.69 X 10*3/uL (4.50-10.00)
[2021-09-26 23:15] LABS: African American GFR (CKD) 54.1 (60.0-200.0); Albumin 3.5 g/dL (3.8-4.9); Albumin/Globulin Ratio 0.9 (1.60-3.17); Anion Gap 11.6 mmol/L (10.00-18.00); BUN/Creat Ratio 11.64 Ratio (12.00-20.00); Calcium 9.1 mg/dL (8.7-10.3); Carbon Dioxide 23.2 mmol/L (20.0-27.5); Globulin 3.9 g/dL (1.6-3.3); Non-African American GFR(CKD) 46.7 (60.0-200.0); Potassium 4.9 mmol/L (3.5-5.5); Total Bilirubin 0.2 mg/dL (0.30-1.20); Total Protein 7.3 g/dL (6.2-8.2)
== END | disposition home or self-care (01) ==
LOC: LABWHC1 15:49
PROVIDERS: ATTEND Family Medicine
DX: E11.9 Type 2 diabetes mellitus without complications (principal); E29.1 Testicular hypofunction
CPT/HCPCS: 36415; 80053; 83036; 84403; 85025

== ENCOUNTER 2021-11-04 09:59 | Day surgery (SDC) | payer MEDICARE, BC ==
[2021-11-04] MEDS ORDERED: LACTATED RINGERS 1,000 ML IV SCH (10:17)
[2021-11-04] MEDS ORDERED: LIDOCAINE 1% (10MG/ML) FOR IV START INTRADERMA PRN (10:17)
[2021-11-04 10:27] LABS: Glucose,Whole Blood 110 mg/dL (75-99)
[2021-11-04] MEDS ORDERED: LACTATED RINGERS 1,000 ML IV ONE (10:35)
[2021-11-04 10:39] VITALS: RESP 16; TEMP 98.2
[2021-11-04] MEDS ORDERED: MIDAZOLAM 2 MG/2 ML VIAL ONE (10:55)
[2021-11-04] MEDS ORDERED: fentaNYL (PF) 50 MCG/ML 2 ML AMP ONE (10:55)
[2021-11-04] MEDS ORDERED: ROPIVACAINE 5MG/ML 20ML VIAL ONE (10:55)
[2021-11-04] MEDS ORDERED: methylPREDNISolone ACETATE 40 MG/ML 1 ML VIAL ONE (10:55)
--- NOTE | 2021-11-04 11:30 | P.PCN ---
Date of Procedure: 11/04/21 Procedure(s) Performed: PREOPERATIVE DIAGNOSIS: 1-Lumbar Spondylosis with Facet Arthropathy without myelopathy. 2- Lumber degenerative disc disease. POSTOPERATIVE DIAGNOSIS: 1- Lumbar Spondylosis with Facet Arthropathy without myelopathy. 2- Lumber degenerative disc disease. PROCEDURES : Bilateral Radiofrequency thermocoagulation, L3 , L4 , and L5 medial branch, with fluoroscopic guidance (fluoroscopy images available in the radiology department) ( to denervate the facet joint at Bilateral L4-5 ,and L5-S1 levels ). ANESTHESIA: Monitored anesthesia care as per anesthesia department. EBL: Minimal PROCEDURE INDICATION: The patient with low back pain secondary to lumbar facet arthropathy who had more than 50% relief of her pain with previous diagnostic lumbar medial branch block with bupivacaine. PROCEDURE DESCRIPTION / TECHNIQUE: The patient was seen and identified in the preoperative area. Risks, benefits, complications, including but not limited to risk of infection ,bleeding , allergic reactions to the medications and no complete pain releife , and alternatives were discussed with the patient, the patient agreed to proceed with the procedure and signed the consent. IV was started. Vital signs remained stable throughout the procedure. Patient was taken to the OR and time out was completed. The patient was placed in the prone position on the procedure table. The lumber area was prepped and draped in the usual sterile fashion. . Vital signs were closely monitored during the procedure .IV sedation was used during the procedure to decrease patients anxiety. Using AP and then oblique fluoroscopy, the ``eye of the Manjit dog med esponding to the connection between the superior and transverse articular processes of right L3, L4, and L5 were identified, marked, and localized with 1% lidocaine. Subsequently, a 18 guage 150-mm radiofrequency cannula with a 10-mm active tip was advanced guided by fluoroscopy to each of the``eyes of the Manjit dog at right L3, L4, and L5. Each site then underwent sensory testing at 50 Hz and 0 to 1 volt and motor testing at 2.5 Hz and 0 to 3 volt with local stimulation, but no radicular symptoms down the legs. Thereafter each sites underwent radiofrequency thermocoagulation at 80 degrees celsius for 90 seconds after injecting 0.5 ml of PF Ropivacaine 1ml, then after the thermocoagulation done , 1 ml of the block solution containing Depo-Medrol 20 mg and 3 ml of Ropivacaine 0.5% was injected at the right L3 , L4 , and L5 , levels after negative aspiration of CSF and blood and with no paresthesias. Cannulas were retracted while injecting lidocaine 1% until the needle is out. The same procedure was repeated at the level of Left L3, L4, and L5 levels. At the end of the procedure, the skin was cleansed and bandages were applied. COMPLICATIONS: No acute complications. DISPOSITION / PLANS: The patient was placed in a supine position and transferred to the recovery area in a stable condition for observation and was discharged from the recovery room after meeting discharge criteria. Home discharge instructions given to the patient by the staff. The patient was reexamined prior to discharge. The patient will schedule a follow up in the clinic in 2-4 weeks.
[2021-11-04] MEDS ORDERED: IV FLUID CONTINUATION 1,000 ML IV ONE (11:33)
[2021-11-04 12:17] VITALS: BP 148/89; PULSE 85
--- NOTE | 2021-11-04 13:50 | FL ---
Fluoroscopy HISTORY: Pain 38 seconds fluoroscopy time supplied to the referring clinician. 7 intraoperative C-arm images docum ent the procedure. See dictated report from anesthesia.
== END 2021-11-04 12:21 | disposition home or self-care (01) ==
LOC: ORPAIN 09:59
PROVIDERS: ATTEND Specialist
DX: M47.816 Spondylosis without myelopathy or radiculopathy, lumbar region (principal); M51.36 Other intervertebral disc degeneration, lumbar region; Z79.01 Long term (current) use of anticoagulants; I25.10 Atherosclerotic heart disease of native coronary artery without angina pectoris; I10 Essential (primary) hypertension; E78.5 Hyperlipidemia, unspecified; E07.9 Disorder of thyroid, unspecified; E11.9 Type 2 diabetes mellitus without complications; Z79.84 Long term (current) use of oral hypoglycemic drugs; Z79.890 Hormone replacement therapy; Z79.899 Other long term (current) drug therapy; Z91.040 Latex allergy status; Z91.013 Allergy to seafood; Z88.8 Allergy status to other drugs, medicaments and biological substances; Z91.048 Other nonmedicinal substance allergy status
CPT/HCPCS: 64635; 64636; J2250; J1030; J3010; J2795

== ENCOUNTER → 2021-11-07 | Outpatient (CLI) | payer MEDICARE, BC ==
[2021-11-08 01:20] LABS: Chol/HDL Ratio 3.04 Ratio; LDL Cholesterol,Calculated 59.3 mg/dL (0.0-131.0)
[2021-11-08 01:58] LABS: Eosinophils # (A) 0.25 X 10*3/uL (0.04-0.35); Eosinophils % (A) 2.4 %; HCT 46.8 % (39.6-50.0); HGB 14.2 g/dL (13.0-17.0); Immature Grans, Automated 1.1 %; Lymphocytes # (A) 0.89 X 10*3/uL (0.90-5.00); Lymphocytes % (A) 8.5 %; MCH 27.4 pg (27.0-32.0); MCHC 30.3 g/dL (32.0-37.0); MCV 90.3 fL (80.0-97.0); Monocytes # (A) 0.76 X 10*3/uL (0.20-1.00); Monocytes % (A) 7.3 %; NRBC Per 100 WBC 0 /100 WBCS (0.0-0.0); Neutrophils # (A) 8.34 X 10*3/uL (1.80-7.70); Neutrophils % (A) 79.7 %; Platelet Count 261 X 10*3/uL (140-440); RBC 5.18 X 10*6/uL (4.40-5.60); RDW 17.2 % (11.5-14.5); WBC 10.46 X 10*3/uL (4.50-10.00)
== END | disposition home or self-care (01) ==
LOC: LABWHC1 14:42
PROVIDERS: ATTEND Family Medicine
DX: E03.9 Hypothyroidism, unspecified (principal); E78.00 Pure hypercholesterolemia, unspecified; D72.829 Elevated white blood cell count, unspecified
CPT/HCPCS: 36415; 80061; 84443; 85025

== ENCOUNTER → 2021-12-08 | Outpatient (CLI) | payer MEDICARE, BC ==
[2021-12-08 14:05] VITALS: BP 119/66; PULSE 79; RESP 18; TEMP 98.7
--- NOTE | 2021-12-08 14:08 | P.PN ---
Subjective Progress Note Date: 12/08/21 Principal diagnosis: A 76 yr old wheelchair bound male with a history of severe and chronic low back pain secondary to lumbar degenerative disc diseases and lumbar spondylosis with facet arthropathy presents today for evaluation status post bilateral RFA L3-5. Patient states he experienced 60% pain relief status post procedure. Pain level is currently at 4 out of 10 in intensity, dull, achy in the lower aspects of his lumbar spine were at least the tailbone but escalates as high as 6 out of 10 in intensity when standing for 10 minutes or walking 10 feet. Denies radiation of pain. Pain is alleviated with medications, physical therapy and chiropractic treatments which were ordered but cannot attend as there unaffordable per his insurance, sitting, laying supine and rest. Interventional pain procedures completed include a lateral RFA L3-5 Patient is currently on [place], Flexeril, Tylenol. Patient denies any side effects of the medication(s), denies excessive drowsiness or sleepiness, denies suicidal ideation and reports that the current pain medication is helping to control the pain and improve activities of daily living. Patient denies any motor or sensory deficits. Patient denies any fever or night sweats, denies any change in the bowel movements or urination. Physical Examination: -Constitutional: Cooperative. Not in acute distress . -HEENT: Neck is supple. No lymphadenopathy. No thyromegaly. Normal thyroid size. Eyes: No ptosis , no icterus, no photophobia. ENT: No auditory deficits. Normal oropharynx. No Thrush. - Respiratory: Chest clear to auscultations bilaterally. No wheezing. No rhonchi. - Cardiovascular: Regular rate and rhythm. S1 / S2 , no S3 , no S4. - Gastrointestinal: Abdomen soft no tenderness. Bowel sounds positive in all four quadrants. No organomegaly. - Genitourinary: Deferred. - Neurologic: Cranial nerve II to XII intact. No focal neurological deficits. - Psychatric: Alert & oriented x 3. Matching mood & appropriate affect. Judgment and insight intact. - Lymphatic: No Lymphadenopathy. - Musculoskeletal: Cervical spine: Muscle bulk/ tone/ strength in the bilateral upper extremities normal. Facet loading test cervical area positive. Lumbar spine: Motor bulk/ tone/ strength lower extremities , thigh and legs : 5/5 Deep tendon reflexes : Normal Knee Jerk. Normal Ankle Jerk . Vertebral body tenderness to palpation over L3, L4, L5 Lumbar Facet Loading Test positive Straight Leg Raise: positive at 30 degrees right side/ left side Gaenslen's Test positive Sacral spine : Severe tenderness over the Sacroiliac joint: right side / left side Range of motion: Flexion of the lumbar spine <60 degrees Range of motion: Extension of the lumbar spine <20 degrees Gaenslen's Test positive Sasha test: positive right side / left side Assessment and plan: Chronic low back pain secondary to lumbar degenerative disc disease , lumbar spondylosis with facet arthropathy without myelopathy Pt obtained sufficient pain relief s/p procedure. Discussed prognoses. Will follow up with his orthopedic surgeon if pain is not manageable or if develops weakness, stiffness or limited ROM. Will return to our office on an as- needed basis. All patient questions answered MAPS reviewed and it was appropriate. I have spent 31 minutes on patient care today. Dr Shaver was available by phone for the evaluation of this patient. The time was used to review the medical records including relevant urine studies and Prescription history (MAPs), review of the available imaging, evaluation and examination of the patient, coordination of care with the medical staff and if applicable referring physicians, as well as creation of the medical record Objective - Vital Signs Vital signs: Vital Signs Temp 98.7 F 12/08/21 13:54 Pulse 79 12/08/21 13:54 Resp 18 12/08/21 13:54 BP 119/66 12/08/21 13:54 Pulse Ox 95 12/08/21 13:54 PQRS Measure Charge Sheet Mode of Arrival: Wheelchair - Pain Location Back Non-Pharmacological Interventions: Heat, Home Exercise, Ice, Physical Therapy, Sitting, Stretching Pharmacological Interventions: Block, PRN Medication PQRS Narrative: Smoking Status Former smoker Blood Pressure 119/66 Pain Intensity [Back] 4 Scale Used Numeric (1 - 10) Hx Alcohol Use (MH) No Home Medications: Ambulatory Orders Omeprazole [PriLOSEC] 20 mg PO HS 12/29/13 Atorvastatin [Lipitor] 10 mg PO PC-LUNCH 10/04/17 Diltiazem HCl 120 mg PO BID 11/21/18 HYDROcodone/APAP 5-325MG [[place] 5-325] 1 tab PO BID PRN 10/20/19 Levothyroxine Sodium [Synthroid] 200 mcg PO DAILY 10/20/19 Losartan [Cozaar] 50 mg PO HS 10/20/19 Montelukast Sodium [Singulair] 10 mg PO HS 10/20/19 Spironolactone 50 mg PO DAILY 10/20/19 glipiZIDE XL [Glucotrol XL] 20 mg PO HS 10/20/19 Albuterol Sulfate [Ventolin HFA] 2 puff INHALATION RT-Q4H PRN 01/06/20 Budesonide-Formot 160-4.5 Mcg [Symbicort 160-4.5 Mcg Inhaler] 2 puff INHALATION BID 03/31/20 Clotrimazole/Betamethasone Dip [Lotrisone Cream] 1 applic TOPICAL DIRECTED PRN 03/31/20 Testosterone Cypionate [Depo-Testosterone] 1 ml IM Q14D 03/31/20 tiZANidine HCL [Zanaflex] 4 mg PO DAILY PRN 03/31/20 Furosemide [Lasix] 40 mg PO DAILY 05/24/20 Triamterene-Hctz 37.5-25Mg [Dyazide 37.5-25 Capsule] 1 cap PO DAILY 05/24/20 SILVER sulfADIAZINE CREAM [Silvadene Cream] 1 applic TOPICAL DAILY PRN 12/28/20 Rivaroxaban [Xarelto] 15 mg PO 1600 05/03/21 metFORMIN HCL [Glucophage] 500 mg PO BID 07/04/21
== END ==
LOC: PNWHC3 13:22
PROVIDERS: ATTEND Specialist
DX: M51.36 Other intervertebral disc degeneration, lumbar region (principal); M47.816 Spondylosis without myelopathy or radiculopathy, lumbar region; G89.29 Other chronic pain; Z99.3 Dependence on wheelchair; Z87.891 Personal history of nicotine dependence; Z91.041 Radiographic dye allergy status; Z91.040 Latex allergy status; Z88.8 Allergy status to other drugs, medicaments and biological substances; Z91.013 Allergy to seafood; Z88.5 Allergy status to narcotic agent
CPT/HCPCS: 99211

== ENCOUNTER → 2022-01-02 | Outpatient (CLI) | payer MEDICARE, BC | END | disposition home or self-care (01) | LOC: LABWHC1 14:36 | PROVIDERS: ATTEND Family Medicine | DX: E11.9 Type 2 diabetes mellitus without complications (principal) | CPT/HCPCS: 36415; 83036 ==

== ENCOUNTER → 2022-01-16 | Outpatient (CLI) | payer MEDICARE, BC ==
--- NOTE | 2022-01-16 16:58 | XR ---
Right foot HISTORY: Right foot pain 2 views of the right foot Correlation prior exam September 20, 2017 Bone mineralization, joint spaces and alignment show similar appearance. There are dense vascular robert cifications noted in the soft tissues as on prior. Soft tissue swelling is similar to prior. There is a plantar calcaneal spur present. IMPRESSION: Correlate for cellulitis, soft tissue infection diabetes but difficult to exclude abscess .
== END | disposition home or self-care (01) ==
LOC: RADXRMAIN 16:09
PROVIDERS: ATTEND Family Medicine
DX: M79.89 Other specified soft tissue disorders (principal); E11.9 Type 2 diabetes mellitus without complications

== ENCOUNTER 2022-05-11 17:55 | Inpatient (IN) | payer MEDICARE, BC ==
--- NOTE | 2022-05-12 00:36 | ED ---
General Adult HPI - General Chief complaint: Nausea/Vomiting/Diarrhea Stated complaint: Diarrhea,loss of appetite Time Seen by Provider: 05/11/22 21:40 Source: patient, RN notes reviewed, old records reviewed Mode of arrival: ambulatory Limitations: no limitations - History of Present Illness Initial comments: 76-year-old male presenting with weakness, diarrhea and poor appetite. No vomiting. No fever. No chest pain. No abdominal pain. Patient's symptoms have been present for the past 3 weeks. He has been trying Imodium and Pepto- Bismol without improvement in the diarrhea. He has at least one episode daily. - Related Data Home Medications Medication Instructions Recorded Confirmed Omeprazole [PriLOSEC] 20 mg PO HS 12/29/13 11/04/21 Atorvastatin [Lipitor] 10 mg PO PC-LUNCH 10/04/17 11/04/21 dilTIAZem HCL [Diltiazem HCl] 120 mg PO BID 11/21/18 11/04/21 HYDROcodone/APAP 5-325MG [[employer] 1 tab PO BID PRN 10/20/19 11/04/21 5-325] Levothyroxine Sodium [Synthroid] 200 mcg PO DAILY 10/20/19 11/04/21 Losartan [Cozaar] 50 mg PO HS 10/20/19 11/04/21 Montelukast Sodium [Singulair] 10 mg PO HS 10/20/19 11/04/21 Spironolactone 50 mg PO DAILY 10/20/19 11/04/21 glipiZIDE XL [Glucotrol XL] 20 mg PO HS 10/20/19 11/04/21 Albuterol Sulfate [Ventolin HFA] 2 puff INHALATION RT-Q4H PRN 01/06/20 11/04/21 Budesonide-Formot 160-4.5 Mcg 2 puff INHALATION BID 03/31/20 11/04/21 [Symbicort 160-4.5 Mcg Inhaler] Clotrimazole/Betamethasone Dip 1 applic TOPICAL DIRECTED PRN 03/31/20 2 [Lotrisone Cream] Testosterone Cypionate 1 ml IM Q14D 03/31/20 11/04/21 [Depo-Testosterone] tiZANidine HCL [Zanaflex] 4 mg PO DAILY PRN 03/31/20 11/04/21 Furosemide [Lasix] 40 mg PO DAILY 05/24/20 11/04/21 Triamterene-Hctz 37.5-25Mg 1 cap PO DAILY 05/24/20 11/04/21 [Dyazide 37.5-25 Capsule] SILVER sulfADIAZINE CREAM 1 applic TOPICAL DAILY PRN 12/28/20 11/04/21 [Silvadene Cream] Rivaroxaban [Xarelto] 15 mg PO 1600 05/03/21 11/04/21 metFORMIN HCL [Glucophage] 500 mg PO BID 07/04/21 11/04/21 Allergies Allergy/AdvReac Type Severity Reaction Status Date / Time Iodinated Contrast Media Allergy Anaphylaxis Verified 05/11/22 18:51 iodine Allergy Anaphylaxis Verified 05/11/22 18:51 latex Allergy Unknown Verified 05/11/22 18:51 lisinopril Allergy Cough Verified 05/11/22 18:51 shellfish derived Allergy Anaphylaxis Verified 05/11/22 18:51 shrimp Allergy Anaphylaxis Verified 05/11/22 18:51 codeine AdvReac Rapid Verified 05/11/22 18:51 Heart Rate Review of Systems ROS Statement: Those systems with pertinent positive or pertinent negative responses have been documented in the HPI. ROS Other: All systems not noted in ROS Statement are negative. Past Medical History Past Medical History: Asthma, Blood Disorder, Cancer, Diabetes Mellitus, Deep Vein Thrombosis (DVT), GERD/Reflux, GI Bleed, Hyperlipidemia, Hypertension, Osteoarthritis (OA), Pneumonia, Pulmonary Embolus (PE), Thyroid Disorder Additional Past Medical History / Comment(s): occular migraines, SOB with acti vity, hx cellulitis x 5, clotting disorder-Factor V- Leiden, basal cell skin ca(folicular), heart murmur, kidney stones, edema rt leg, History of Any Multi-Drug Resistant Organisms: None Reported, MRSA Date of last positivie culture/infection: 2012 MDRO Source:: bilateral legs Past Surgical History: Cholecystectomy, Hernia Repair, Tonsillectomy Additional Past Surgical History / Comment(s): 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 Father Family Medical History: No Reported History Additional Family Medical History / Comment(s): age 72. General Exam Limitations: no limitations General appearance: alert, in no apparent distress Head exam: Present: atraumatic, normocephalic Eye exam: Present: normal appearance, PERRL ENT exam: Present: mucous membranes moist Neck exam: Present: normal inspection. Absent: tenderness, meningismus Respiratory exam: Present: normal lung sounds bilaterally. Absent: respiratory distress, wheezes Cardiovascular Exam: Present: regular rate, normal rhythm GI/Abdominal exam: Present: soft, distended. Absent: tenderness, guarding, rebound Extremities exam: Present: normal capillary refill, pedal edema Neurological exam: Present: alert, oriented X3, CN II-XII intact. Absent: motor sensory deficit Psychiatric exam: Present: normal affect, normal mood Skin exam: Present: warm, dry, intact. Absent: cyanosis, diaphoretic Course Vital Signs 05/11/22 05/12/22 18:46 02:13 Temperature 97.8 F Pulse Rate 104 H 101 H Respiratory 22 18 Rate Blood Pressure 114/64 121/76 O2 Sat by Pulse 95 Oximetry EKG Findings - EKG Comments: EKG Findings:: sinus tachycardia with prolonged KS interval, first-degree AV block rate of 103 QRS duration 89, QTC 372, no ST segment elevation. Medical Decision Making - Medical Decision Making 76-year-old male withDiarrhea for the past 3 weeks. Stool sample pending. Pt has YSABEL, hyperk and dehydration. Pt admiited for IV hydration. - Lab Data Result diagrams: 05/12/22 00:55 05/12/22 00:55 Lab Results 05/12/22 05/12/22 Range/Units 00:55 00:55 WBC 15.6 H (3.8-10.6) k/uL RBC 4.92 (4.30-5.90) m/uL Hgb 13.9 (13.0-17.5) gm/dL Hct 45.0 (39.0-53.0) % MCV 91.4 (80.0-100.0) fL MCH 28.3 (25.0-35.0) pg MCHC 31.0 (31.0-37.0) g/dL RDW 16.9 H (11.5-15.5) % Plt Count 266 (150-450) k/uL MPV 7.5 Neutrophils % 88 % Lymphocytes % 4 % Monocytes % 4 % Eosinophils % 2 % Basophils % 1 % Neutrophils # 13.6 H (1.3-7.7) k/uL Lymphocytes # 0.7 L (1.0-4.8) k/uL Monocytes # 0.7 (0-1.0) k/uL Eosinophils # 0.3 (0-0.7) k/uL Basophils # 0.1 (0-0.2) k/uL Anisocytosis Slight Sodium 136 L (137-145) mmol/L Potassium 6.3 H* (3.5-5.1) mmol/L Chloride 107 (98-107) mmol/L Carbon Dioxide 14 L (22-30) mmol/L Anion Gap 15 mmol/L BUN 82 H (9-20) mg/dL Creatinine 2.27 H (0.66-1.25) mg/dL Est GFR (CKD-EPI)AfAm 32 (>60 ml/min/1.73 sqM) Est GFR (CKD-EPI)NonAf 27 (>60 ml/min/1.73 sqM) Glucose 107 H (74-99) mg/dL Calcium 9.3 (8.4-10.2) mg/dL Total Bilirubin 0.6 (0.2-1.3) mg/dL AST 17 (17-59) U/L ALT 14 (4-49) U/L Alkaline Phosphatase 148 H (38-126) U/L Total Protein 7.5 (6.3-8.2) g/dL Albumin 3.8 (3.5-5.0) g/dL Disposition Clinical Impression: Dehydration, YSABEL (acute kidney injury), Hyperkalemia Disposition: ADMITTED IP TO THIS HOSP Condition: Stable Is patient prescribed a controlled substance at d/c from ED?: No Referrals: Tatyana Mora MD [Primary Care Provider] - 1-2 days Time of Disposition: 03:05
[2022-05-12 01:13] LABS: Anisocytosis Slight; Basophils # (A) 0.1 k/uL (0-0.2); Basophils % (A) 1 %; Eosinophils # (A) 0.3 k/uL (0-0.7); Eosinophils % (A) 2 %; HGB 13.9 gm/dL (13.0-17.5); Lymphocytes # (A) 0.7 k/uL (1.0-4.8); Lymphocytes % (A) 4 %; MCH 28.3 pg (25.0-35.0); MCV 91.4 fL (80.0-100.0); Mean Platelet Volume 7.5; Monocytes # (A) 0.7 k/uL (0-1.0); Monocytes % (A) 4 %; Neutrophils # (A) 13.6 k/uL (1.3-7.7); Neutrophils % (A) 88 %; Platelet Count 266 k/uL (150-450); RBC 4.92 m/uL (4.30-5.90); RDW 16.9 % (11.5-15.5); WBC 15.6 k/uL (3.8-10.6)
[2022-05-12 01:31] LABS: Albumin 3.8 g/dL (3.5-5.0); Calcium 9.3 mg/dL (8.4-10.2); Total Bilirubin 0.6 mg/dL (0.2-1.3); Total Protein 7.5 g/dL (6.3-8.2)
[2022-05-12 01:42] LABS: Potassium 6.3 mmol/L (3.5-5.1)
[2022-05-12] MEDS ORDERED: SODIUM CHLORIDE 0.9% 500 ML 500 ML IV ONE (01:48)
[2022-05-12] MEDS ORDERED: CALCIUM GLUCONATE IN NACL 1 GM in SALINE 1 100ML.BAG IVPB ONE ×2 (02:00→15:41)
[2022-05-12] MEDS: SODIUM CHLORIDE 0.9% 1,000 ML IV SCH ×2 (02:09→16:06)
[2022-05-12] MEDS ORDERED: NALOXONE 0.4 MG/ML 1 ML VIAL IV PRN (03:00)
[2022-05-12 08:08] LABS: Appearance,Urine Clear (Clear); Bilirubin,Urine Negative (Negative); Blood,Urine Negative (Negative); Color,Urine Yellow; Glucose,Urine (UA) Negative (Negative); Ketones,Urine Negative (Negative); Leukocyte Esterase,Urine Negative (Negative); Nitrite,Urine Negative (Negative); Protein,Urine Trace (Negative); Specific Gravity,Urine 1.015 (1.001-1.035); Urobilinogen,Urine <2.0 mg/dL (<2.0)
[2022-05-12 14:28] LABS: Potassium 5.9 mmol/L (3.5-5.1)
[2022-05-12] MEDS: ATORVASTATIN 10 MG TAB PO SCH (15:00)
[2022-05-12] MEDS ORDERED: DEXTROSE 50% SYRINGE 50 ML IVP ONE (15:41)
[2022-05-12] MEDS ORDERED: SODIUM POLYSTYRENE SULFONATE 15 GM/60 ML BOTTLE PO ONE (15:41)
[2022-05-12] MEDS ORDERED: ALBUTEROL NEB (CONC) 2.5 MG/0.5 ML INHALATION ONE (15:41)
[2022-05-12] MEDS ORDERED: INSULIN REGULAR 100 UNIT/ML VIAL (IV) IV ONE (15:41)
[2022-05-12] MEDS: RIVAROXABAN 20 MG TAB PO SCH (16:03)
[2022-05-12] MEDS ORDERED: DEXTROSE 50% SYRINGE 50 ML IVP PRN ×2 (16:25)
[2022-05-12 17:19] LABS: Glucose,Whole Blood 51 mg/dL (70-110)
[2022-05-12] MEDS: ACETAMINOPHEN TAB 325 MG TAB PO PRN (17:38)
[2022-05-12 17:41] LABS: Glucose,Whole Blood 94 mg/dL (70-110)
[2022-05-12 18:05] LABS: African American GFR (CKD) 43 (>60 ml/min/1.73 sqM); Anion Gap 13 mmol/L; Blood Urea Nitrogen 71 mg/dL (9-20); Calcium 9.3 mg/dL (8.4-10.2); Carbon Dioxide 14 mmol/L (22-30); Chloride 110 mmol/L (98-107); Glucose 92 mg/dL (74-99); Magnesium 1.7 mg/dL (1.6-2.3); Non-African American GFR(CKD) 37 (>60 ml/min/1.73 sqM); Potassium 5.4 mmol/L (3.5-5.1); Sodium 137 mmol/L (137-145)
[2022-05-12] MEDS: INSULIN ASPART (NovoLOG) 100 UNIT/ML VIAL SQ SCH ×2 (18:20→21:31)
[2022-05-12] MEDS ORDERED: SODIUM ZIRCONIUM CYCLOSILICATE 10 GM PACKET PO ONE (18:25)
[2022-05-12] MEDS: DEXTROSE 5% IN WATER 1,000 ML with SODIUM BICARB (1 MEQ/ML) 150 ML IV SCH (18:35)
--- NOTE | 2022-05-12 20:21 | US ---
EXAMINATION TYPE: US kidneys/renal and bladder DATE OF EXAM: 05/12/2022 COMPARISON: NONE CLINICAL HISTORY: mau. EXAM MEASUREMENTS: Right Kidney: 11.3 x 4.9 x 5.9 cm Left Kidney: 12.8 x 5.1 x 5.7 cm Morbidly obese patient with large panus, unable to well move for examiner. Technically difficult limi emma scan. Right Kidney: No hydronephrosis or masses seen Left Kidney: cyst mid measuring 1.6 x 1.4 x 2.4cm, measures large Bladder: due to patients large panus and position, bladder not scanned IMPRESSION: Left renal cortical cyst. No evidence of solid renal mass or obstruction.
[2022-05-12 21:31] LABS: Glucose,Whole Blood 122 mg/dL (70-110)
[2022-05-12] MEDS: PANTOPRAZOLE 40 MG TABLET PO SCH (21:31)
[2022-05-12] MEDS: MONTELUKAST 10 MG TAB PO SCH (21:31)
[2022-05-13] MEDS: ACETAMINOPHEN TAB 325 MG TAB PO PRN ×2 (01:18→22:37)
[2022-05-13] MEDS: tiZANidine 4 MG TAB PO PRN ×2 (03:46→23:48)
[2022-05-13] MEDS: LEVOTHYROXINE 100 MCG TAB PO SCH (05:26)
[2022-05-13 07:00] LABS: Glucose,Whole Blood 174 mg/dL (70-110)
[2022-05-13] MEDS: INSULIN ASPART (NovoLOG) 100 UNIT/ML VIAL SQ SCH ×4 (08:46→22:31)
[2022-05-13] MEDS: DILTIAZEM CD 240 MG CAP.ER.24H PO SCH (08:47)
[2022-05-13] MEDS: PIOGLITAZONE 15 MG TAB PO SCH (08:47)
--- NOTE | 2022-05-13 09:37 | P.NPCON ---
History of Present Illness - Reason for Consult acute renal failure - History of Present Illness reason for consultation: Acute kidney injury History of present illness: Patient is a 76-year-old male seen in renal consultation for acute kidney injury. Patient's baseline creatinine from May 2021 was near 1. This admission and was elevated at 2.27 and was 1.77 as of yesterday. patient presented to the hospital due to generalized weakness and poor intake. He also admits to diarrhea for about the last 3 weeks. patient does have long-standing history of diabetes. Denies history of coronary artery disease. Patient was taking angiotensin receptor holly, triamterene as well as Aldactone outpati ent. Potassium was 6.3 on admission which was medically treated and was down to 5.4 as of yesterday evening. he is also been quite acidotic this admission bicarb level of 14 yesterday and was started on bicarb drip. Morning labs are pending. Denies use of nonsteroidals. Denies vomiting. Currently receiving IV fluids. Denies family history of renal disease. No fever or chills. blood pressure stable. Vital signs are stable. General: awake. No acute distress. HEENT: Head exam is unremarkable. LUNGS: Breath sounds decreased. HEART: Rate and Rhythm are regular. ABDOMEN: soft, obese. EXTREMITITES: No edema. Past Medical History Past Medical History: Asthma, Blood Disorder, Cancer, Diabetes Mellitus, Deep Vein Thrombosis (DVT), GERD/Reflux, GI Bleed, Hyperlipidemia, Hypertension, Osteoarthritis (OA), Pneumonia, Pulmonary Embolus (PE), Thyroid Disorder Additional Past Medical History / Comment(s): occular migraines, SOB with activity, hx cellulitis x 5, clotting disorder-Factor V- Leiden, basal cell skin ca(folicular), heart murmur, kidney stones, edema rt leg, History of Any Multi-Drug Resistant Organisms: None Reported, MRSA Date of last positivie culture/infection: 2012 MDRO Source:: bilateral legs Past Surgical History: Cholecystectomy, Hernia Repair, Tonsillectomy Additional Past Surgical History / Comment(s): 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 Smoking Status: Former smoker Past Alcohol Use History: Occasional Additional Past Alcohol Use History / Comment(s): Started smoking at age 17(1962) and quit age 30(1975). Past Drug Use History: None Reported - Past Family History Mother Family Medical History: No Reported History Additional Family Medical History / Comment(s): . Father Family Medical History: No Reported History Additional Family Medical History / Comment(s): age 72. Medications and Allergies Home Medications Medication Instructions Recorded Confirmed Type Omeprazole [PriLOSEC] 20 mg PO HS 12/29/13 05/12/22 History Atorvastatin [Lipitor] 10 mg PO PC-LUNCH 10/04/17 05/12/22 History Levothyroxine Sodium [Synthroid] 200 mcg PO DAILY 10/20/19 05/12/22 History Montelukast Sodium [Singulair] 10 mg PO HS 10/20/19 05/12/22 History Spironolactone 50 mg PO DAILY 10/20/19 05/12/22 History Albuterol Sulfate [Ventolin HFA] 2 puff INHALATION RT-Q4H PRN 01/06/20 05/12/22 History Testosterone Cypionate 200 mg IM Q14D 03/31/20 05/12/22 History [Depo-Testosterone] tiZANidine HCL [Zanaflex] 4 mg PO TID PRN 03/31/20 05/12/22 History Triamterene-Hctz 37.5-25Mg 1 cap PO DAILY 05/24/20 05/12/22 History [Dyazide 37.5-25 Capsule] Rivaroxaban [Xarelto] 20 mg PO DAILY@1600 05/03/21 05/12/22 History Losartan [Cozaar] 50 mg PO HS 05/12/22 05/12/22 History Pioglitazone [Actos] 15 mg PO DAILY 05/12/22 05/12/22 History dilTIAZem HCL [dilTIAZem [id number] 240 mg PO DAILY 05/12/22 05/12/22 History ER (CD)] Allergies Allergy/AdvReac Type Severity Reaction Status Date / Time Iodinated Contrast Media Allergy Anaphylaxis Verified 05/12/22 07:10 iodine Allergy Anaphylaxis Verified 05/12/22 07:10 latex Allergy see comment Verified 05/12/22 07:10 shellfish derived Allergy Anaphylaxis Verified 05/12/22 07:10 shrimp Allergy Anaphylaxis Verified 05/12/22 07:10 tuna oil Allergy Unknown Verified 05/12/22 07:10 codeine AdvReac Rapid Verified 05/12/22 07:10 Heart Rate lisinopril AdvReac Cough Verified 05/12/22 07:10 Physical Exam Vitals: Vital Signs Temp Pulse Pulse Resp BP BP Pulse Ox 05/13/22 08:00 98.3 F 60 18 120/70 97 05/13/22 02:05 97.7 F 72 15 118/73 99 05/12/22 16:50 97.9 F 86 18 114/68 96 05/12/22 15:01 98.0 F 98 18 113/79 99 05/12/22 13:27 96 18 05/12/22 12:24 86 18 149/80 98 05/12/22 10:00 81 18 115/95 95 Intake and Output 05/12/22 05/13/22 05/13/22 22:59 06:59 14:59 Output Total 500 Balance -500 Output: Urine 500 Other: Voiding Method Urinal # Voids 1 3 # Bowel Movements 1 Weight 151.953 kg Results - Lab Results Most recent lab results Calcium 9.3 mg/dL (8.4-10.2) 05/12/22 17:33 Magnesium 1.7 mg/dL (1.6-2.3) 05/12/22 17:33 05/12/22 00:55 05/12/22 17:33 Assessment and Plan Plan: assessment: 1. Acute kidney injury mostly prerenal secondary to hypovolemia from poor intake, diarrhea and further worsened with the use of diuretics and and she doesn't receptor holly. creatinine was 2.27 on admission and was 1.77 yesterday. creatinine in May 2021 was near 1. no hydronephrosis noted on kidney ultrasound. UA fairly benign. 2. Metabolic acidosis secondary to acute kidney injury and GI losses. 3. Hyperkalemia secondary to acute kidney injury, acidosis, triamterene, Aldactone and losartan. Improved with medical management. 4. Diabetes mellitus. plan: Maintain bicarb drip. continue to hold diuretics and Cozaar. continue to monitor renal function and urine output. Avoid nephrotoxins. Follow-up morning labs. Thank you for the consultation. I will continue to follow the patient with you during his hospital stay.
[2022-05-13 11:11] LABS: Glucose,Whole Blood 164 mg/dL (70-110)
[2022-05-13 11:42] LABS: Basophils # (A) 0.09 X 10*3/uL (0.00-0.10); Basophils % (A) 0.8 %; Eosinophils # (A) 0.28 X 10*3/uL (0.04-0.35); Eosinophils % (A) 2.6 %; HCT 36.3 % (39.6-50.0); HGB 11.4 g/dL (13.0-17.0); Immature Grans, Automated 4.1 %; Lymphocytes # (A) 0.76 X 10*3/uL (0.90-5.00); MCH 28.6 pg (27.0-32.0); MCHC 31.4 g/dL (32.0-37.0); Mean Platelet Volume 9.9 fL (9.5-12.2); Monocytes # (A) 0.68 X 10*3/uL (0.20-1.00); Monocytes % (A) 6.2 %; NRBC Per 100 WBC 0 /100 WBCS (0.0-0.0); Neutrophils # (A) 8.67 X 10*3/uL (1.80-7.70); Neutrophils % (A) 79.3 %; Platelet Count 212 X 10*3/uL (140-440); RBC 3.99 X 10*6/uL (4.40-5.60); RDW 18.3 % (11.5-14.5); WBC 10.93 X 10*3/uL (4.50-10.00)
[2022-05-13 11:53] LABS: Anion Gap 11.2 mmol/L (10.00-18.00); BUN/Creat Ratio 33.33 Ratio (12.00-20.00); Calcium 8.4 mg/dL (8.7-10.3); Carbon Dioxide 20.8 mmol/L (20.0-27.5); Magnesium 1.7 mg/dL (1.5-2.4); Non-African American GFR(CKD) 36.3 (60.0-200.0); Potassium 4.7 mmol/L (3.5-5.5)
[2022-05-13] MEDS: ATORVASTATIN 10 MG TAB PO SCH (12:35)
--- NOTE | 2022-05-13 16:53 | P.HPIM ---
History of Present Illness Chief Complaint: Nausea/vomiting/diarrhea 76-year-old male presenting with weakness, diarrhea and poor appetite. No vo miting. No fever. No chest pain. No abdominal pain. Patient's symptoms have been present for the past 3 weeks. He has been trying Imodium and Pepto-Bismol without improvement in the diarrhea. He has at least one episode daily. Laboratory completed in ED reveals a decrease of 15.6, hemoglobin 13.9 and platelet count of 266, sodium 136, potassium 6.3, BUN/creatinine of 82/2.27 and blood glucose of 107 EKG Findings:: sinus tachycardia with prolonged MS interval, first-degree AV block rate of 103 QRS duration 89, QTC 372, no ST segment elevation Review of Systems REVIEW OF SYSTEMS: CONSTITUTIONAL: No fever, no malaise, no fatigue. HEENT: No recent visual problems or hearing problems. Denied any sore throat. CARDIOVASCULAR: No chest pain, orthopnea, PND, no palpitations, no syncope. PULMONARY: No shortness of breath, no cough, no hemoptysis. GASTROINTESTINAL: No diarrhea, no nausea, no vomiting, no abdominal pain. NEUROLOGICAL: No headaches, no weakness, no numbness. HEMATOLOGICAL: Denies any bleeding or petechiae. GENITOURINARY: Denies any burning micturition, frequency, or urgency. MUSCULOSKELETAL/RHEUMATOLOGICAL: Denies any joint pain, swelling, or any muscle pain. ENDOCRINE: Denies any polyuria or polydipsia. The rest of the 14-point review of systems is negative. Past Medical History Past Medical History: Asthma, Blood Disorder, Cancer, Diabetes Mellitus, Deep Vein Thrombosis (DVT), GERD/Reflux, GI Bleed, Hyperlipidemia, Hypertension, Osteoarthritis (OA), Pneumonia, Pulmonary Embolus (PE), Thyroid Disorder Additional Past Medical History / Comment(s): occular migraines, SOB with activity, hx cellulitis x 5, clotting disorder-Factor V- Leiden, basal cell skin ca(folicular), heart murmur, kidney stones, edema rt leg, History of Any Multi-Drug Resistant Organisms: None Reported, MRSA Date of last positivie culture/infection: 2012 MDRO Source:: bilateral legs Past Surgical History: Cholecystectomy, Hernia Repair, Tonsillectomy Additional Past Surgical History / Comment(s): 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 Father Family Medical History: No Reported History Additional Family Medical History / Comment(s): age 72. Medications and Allergies Home Medications Medication Instructions Recorded Confirmed Type Omeprazole [PriLOSEC] 20 mg PO HS 12/29/13 05/12/22 History Atorvastatin [Lipitor] 10 mg PO PC-LUNCH 10/04/17 05/12/22 History Levothyroxine Sodium [Synthroid] 200 mcg PO DAILY 10/20/19 05/12/22 History Montelukast Sodium [Singulair] 10 mg PO HS 10/20/19 05/12/22 History Spironolactone 50 mg PO DAILY 10/20/19 05/12/22 History Albuterol Sulfate [Ventolin HFA] 2 puff INHALATION RT-Q4H PRN 01/06/20 05/12/22 History Testosterone Cypionate 200 mg IM Q14D 03/31/20 05/12/22 History [Depo-Testosterone] tiZANidine HCL [Zanaflex] 4 mg PO TID PRN 03/31/20 05/12/22 History Triamterene-Hctz 37.5-25Mg 1 cap PO DAILY 05/24/20 05/12/22 History [Dyazide 37.5-25 Capsule] Rivaroxaban [Xarelto] 20 mg PO DAILY@1600 05/03/21 05/12/22 History Losartan [Cozaar] 50 mg PO HS 05/12/22 05/12/22 History Pioglitazone [Actos] 15 mg PO DAILY 05/12/22 05/12/22 History dilTIAZem HCL [dilTIAZem [id number] 240 mg PO DAILY 05/12/22 05/12/22 History ER (CD)] Allergies Allergy/AdvReac Type Severity Reaction Status Date / Time Iodinated Contrast Media Allergy Anaphylaxis Verified 05/12/22 07:10 iodine Allergy Anaphylaxis Verified 05/12/22 07:10 latex Allergy see comment Verified 05/12/22 07:10 shellfish derived Allergy Anaphylaxis Verified 05/12/22 07:10 shrimp Allergy Anaphylaxis Verified 05/12/22 07:10 tuna oil Allergy Unknown Verified 05/12/22 07:10 codeine AdvReac Rapid Verified 05/12/22 07:10 Heart Rate lisinopril AdvReac Cough Verified 05/12/22 07:10 Physical Exam Vitals: Vital Signs Temp Pulse Resp BP Pulse Ox 05/12/22 10:00 81 18 115/95 95 05/12/22 07:52 99 18 120/74 05/12/22 06:00 92 18 101/57 95 05/12/22 02:13 101 H 18 121/76 05/11/22 18:46 97.8 F 104 H 22 114/64 95 Intake and Output 05/11/22 05/12/22 05/12/22 22:59 06:59 14:59 Other: Weight 151.953 kg General appearance: alert, in no apparent distress Head exam: Present: atraumatic, normocephalic Eye exam: Present: normal appearance, PERRL ENT exam: Present: mucous membranes moist Neck exam: Present: normal inspection. Absent: tenderness, meningismus Respiratory exam: Present: normal lung sounds bilaterally. Absent: respiratory distress, wheezes Cardiovascular Exam: Present: regular rate, normal rhythm GI/Abdominal exam: Present: soft, distended. Absent: tenderness, guarding, rebound Extremities exam: Present: normal capillary refill, pedal edema Neurological exam: Present: alert, oriented X3, CN II-XII intact. Absent: motor sensory deficit Psychiatric exam: Present: normal affect, normal mood Skin exam: Present: warm, dry, intact. Absent: cyanosis, diaphoretic Results CBC & Chem 7: 05/13/22 06:32 05/13/22 06:32 Labs: Abnormal Lab Results - Last 24 Hours (Table) 05/12/22 05/12/22 05/12/22 Range/Units 00:55 00:55 07:45 WBC 15.6 H (3.8-10.6) k/uL RDW 16.9 H (11.5-15.5) % Neutrophils # 13.6 H (1.3-7.7) k/uL Lymphocytes # 0.7 L (1.0-4.8) k/uL Sodium 136 L (137-145) mmol/L Potassium 6.3 H* (3.5-5.1) mmol/L Carbon Dioxide 14 L (22-30) mmol/L BUN 82 H (9-20) mg/dL Creatinine 2.27 H (0.66-1.25) mg/dL Glucose 107 H (74-99) mg/dL Alkaline Phosphatase 148 H (38-126) U/L Urine Protein Trace H (Negative) Assessment and Plan Assessment: 1. Acute renal injury; likely prerenal related to hypovolemia resulting from poor oral intake, vomiting, diarrhea; patient has been using diuretics also - Creatinine was found to be 2.27 in ED; baseline creatinine is at 1 - Renal ultrasound is completed and does not reveal any hydronephrosis - We will continue with IV fluid hydration; monitor strict DMITRIY's, daily weights, and electrolytes; avoid nephrotoxins and hypotension; continue to hold diuretics and Cozaar - Consult nephrology for further recommendations 2. Metabolic acidosis; multifactorial; related to acute renal failure and GI loss - Patient has been placed on bicarbonate infusion; we will monitor closely and make adjustments accordingly 3. Critical hyperkalemia; potassium at 6.3 in ED; potassium is down to 5.9 after aggressive treatment in ED; we will repeat D50 and IV insulin; calcium gluconate - Monitor electrolytes closely 4. Leukocytosis; no signs of infection; likely reactive; 's workup if white blood count continues to trend up 5. Hypothyroidism; Synthroid to 200 MCG daily 6. Diabetes mellitus type 2; patient remains on Actos 15 mg daily 7. Hyperlipidemia; Lipitor 10 mg daily 8. Hypertension; controlled on Cardizem 240 mg daily; Cozaar remains on hold due to renal failure; continue to hold Aldactone and Dyazide 9. Asthma; not in exacerbation; Singulair 10 mg daily; albuterol inhaler 2 puffs 4 times a day when necessary 10. History of DVT/PE; continue with home dose of Xarelto DVT prophylaxis; SCDs/Xarelto CODE STATUS; full code
--- NOTE | 2022-05-13 16:55 | P.PN ---
Subjective Progress Note Date: 05/13/22 76-year-old male presenting with weakness, diarrhea and poor appetite. No vomiting. No fever. No chest pain. No abdominal pain. Patient's symptoms have been present for the past 3 weeks. He has been trying Imodium and Pepto- Bismol without improvement in the diarrhea. He has at least one episode daily. Laboratory completed in ED reveals a decrease of 15.6, hemoglobin 13.9 and platelet count of 266, sodium 136, potassium 6.3, BUN/creatinine of 82/2.27 and blood glucose of 107 EKG Findings:: sinus tachycardia with prolonged MO interval, first-degree AV block rate of 103 QRS duration 89, QTC 372, no ST segment elevation Objective - Vital Signs Vital signs: Vital Signs Temp 98.3 F 05/13/22 08:00 Pulse 60 05/13/22 08:00 Resp 18 05/13/22 08:00 BP 120/70 05/13/22 08:00 Pulse Ox 97 05/13/22 08:00 FiO2 Intake & Output 05/12/22 05/13/22 05/13/22 18:59 06:59 18:59 Output Total 500 Balance -500 Weight 151.953 kg Output: Urine 500 Other: Voiding Method Urinal # Voids 1 3 # Bowel Movements 1 1 - Exam General appearance: alert, in no apparent distress Head exam: Present: atraumatic, normocephalic Eye exam: Present: normal appearance, PERRL ENT exam: Present: mucous membranes moist Neck exam: Present: normal inspection. Absent: tenderness, meningismus Respiratory exam: Present: normal lung sounds bilaterally. Absent: respiratory distress, wheezes Cardiovascular Exam: Present: regular rate, normal rhythm GI/Abdominal exam: Present: soft, distended. Absent: tenderness, guarding, r ebound Extremities exam: Present: normal capillary refill, pedal edema Neurological exam: Present: alert, oriented X3, CN II-XII intact. Absent: motor sensory deficit Psychiatric exam: Present: normal affect, normal mood Skin exam: Present: warm, dry, intact. Absent: cyanosis, diaphoretic - Labs CBC & Chem 7: 05/13/22 06:32 05/13/22 06:32 Labs: Abnormal Lab Results - Last 24 Hours (Table) 05/12/22 05/12/22 05/12/22 Range/Units 00:55 14:15 17:17 Potassium 5.9 H (3.5-5.1) mmol/L Chloride (98-107) mmol/L Carbon Dioxide (22-30) mmol/L BUN 75 H (9-20) mg/dL Creatinine 1.95 H (0.66-1.25) mg/dL POC Glucose (mg/dL) 51 L (70-110) mg/dL Hemoglobin A1c 6.6 H (0.0-6.0) % 05/12/22 05/12/22 05/13/22 Range/Units 17:33 21:29 06:59 Potassium 5.4 H (3.5-5.1) mmol/L Chloride 110 H (98-107) mmol/L Carbon Dioxide 14 L (22-30) mmol/L BUN 71 H (9-20) mg/dL Creatinine 1.77 H (0.66-1.25) mg/dL POC Glucose (mg/dL) 122 H 174 H (70-110) mg/dL Hemoglobin A1c (0.0-6.0) % Assessment and Plan Assessment: 1. Acute renal injury; likely prerenal related to hypovolemia resulting from poor oral intake, vomiting, diarrhea; patient has been using diuretics also - Creatinine was found to be 2.27 in ED; baseline creatinine is at 1 - Renal ultrasound is completed and does not reveal any hydronephrosis - We will continue with IV fluid hydration; monitor strict DMITRIY's, daily weights, and electrolytes; avoid nephrotoxins and hypotension; continue to hold diuretics and Cozaar - Consult nephrology for further recommendations 2. Metabolic acidosis; multifactorial; related to acute renal failure and GI loss - Patient has been placed on bicarbonate infusion; we will monitor closely and make adjustments accordingly 3. Critical hyperkalemia; potassium at 6.3 in ED; potassium is down to 5.9 after aggressive treatment in ED; we will repeat D50 and IV insulin; calcium gluconate - Monitor electrolytes closely 4. Leukocytosis; no signs of infection; likely reactive; 's workup if white blood count continues to trend up 5. Hypothyroidism; Synthroid to 200 MCG daily 6. Diabetes mellitus type 2; patient remains on Actos 15 mg daily 7. Hyperlipidemia; Lipitor 10 mg daily 8. Hypertension; controlled on Cardizem 240 mg daily; Cozaar remains on hold due to renal failure; continue to hold Aldactone and Dyazide 9. Asthma; not in exacerbation; Singulair 10 mg daily; albuterol inhaler 2 puffs 4 times a day when necessary 10. History of DVT/PE; continue with home dose of Xarelto DVT prophylaxis; SCDs/Xarelto CODE STATUS; full code
[2022-05-13 17:04] LABS: Glucose,Whole Blood 155 mg/dL (70-110)
[2022-05-13] MEDS: RIVAROXABAN 20 MG TAB PO SCH (17:12)
[2022-05-13] MEDS: DEXTROSE 5% IN WATER 1,000 ML with SODIUM BICARB (1 MEQ/ML) 150 ML IV SCH ×2 (17:12→17:15)
[2022-05-13 20:36] LABS: Glucose,Whole Blood 152 mg/dL (70-110)
[2022-05-13] MEDS: MONTELUKAST 10 MG TAB PO SCH (22:31)
[2022-05-13] MEDS: PANTOPRAZOLE 40 MG TABLET PO SCH (22:31)
--- NOTE | 2022-05-14 02:49 | XR ---
EXAMINATION TYPE: XR shoulder limited RT DATE OF EXAM: 05/14/2022 COMPARISON: NONE HISTORY: Pain. Fall TECHNIQUE: 2 view FINDINGS: There is no evidence of shoulder joint fracture nor dislocation. There is minor spurring at the AC joint. Scapula appears intact. IMPRESSION: No fracture seen.
[2022-05-14 07:19] LABS: Glucose,Whole Blood 142 mg/dL (70-110)
[2022-05-14] MEDS: INSULIN ASPART (NovoLOG) 100 UNIT/ML VIAL SQ SCH ×4 (07:33→21:49)
[2022-05-14] MEDS: PIOGLITAZONE 15 MG TAB PO SCH (07:37)
[2022-05-14] MEDS: LEVOTHYROXINE 100 MCG TAB PO SCH (07:37)
[2022-05-14] MEDS: DILTIAZEM CD 240 MG CAP.ER.24H PO SCH (07:37)
[2022-05-14 09:22] LABS: Basophils # (A) 0.08 X 10*3/uL (0.00-0.10); Basophils % (A) 0.7 %; Eosinophils % (A) 3.4 %; HCT 32.9 % (39.6-50.0); HGB 10.8 g/dL (13.0-17.0); Immature Grans, Automated 2.6 %; Lymphocytes # (A) 0.85 X 10*3/uL (0.90-5.00); Lymphocytes % (A) 7.3 %; MCHC 32.8 g/dL (32.0-37.0); MCV 88.4 fL (80.0-97.0); Monocytes # (A) 0.73 X 10*3/uL (0.20-1.00); Monocytes % (A) 6.2 %; NRBC Per 100 WBC 0 /100 WBCS (0.0-0.0); Neutrophils # (A) 9.35 X 10*3/uL (1.80-7.70); Neutrophils % (A) 79.8 %; Platelet Count 234 X 10*3/uL (140-440); RBC 3.72 X 10*6/uL (4.40-5.60); RDW 18.1 % (11.5-14.5); WBC 11.72 X 10*3/uL (4.50-10.00)
[2022-05-14 09:42] LABS: African American GFR (CKD) 43.5 (60.0-200.0); Anion Gap 12.1 mmol/L (10.00-18.00); BUN/Creat Ratio 30.06 Ratio (12.00-20.00); Blood Urea Nitrogen 52.6 mg/dL (9.0-27.0); Calcium 8.1 mg/dL (8.7-10.3); Carbon Dioxide 21.6 mmol/L (20.0-27.5); Magnesium 1.7 mg/dL (1.5-2.4); Non-African American GFR(CKD) 37.5 (60.0-200.0); Potassium 3.9 mmol/L (3.5-5.5)
--- NOTE | 2022-05-14 10:25 | P.CNOR ---
History of Present Illness - [facility] Consult date: 05/14/22 Requesting physician: Nj Montalvo Consult reason: other (Right shoulder pain) History of present illness: History of Presenting Illness Patient is a pleasant 76yo male that had presented to the emergency room for weakness, diarrhea and poor appetite. Our services were consulted for right shoulder pain. Patient states while he was in the ER he was repositioning himself in a wheelchair and he felt a pop in his right shoulder. No falls or trauma noted. Patient does have limited ROM during assessment of right shoulder. Denies numbness or tingling to his right upper extremities. Review of Systems Pertinent positives and negatives as discussed in HPI, a complete review of systems was performed and all other systems are negative. Physical Examination General: The patient is awake and alert, in no acute distress Skin: Skin is warm and dry with no obvious rashes or lesions. Eye: Pupils are equal, round and reactive to light, extra-ocular movements are intact; there is normal conjunctiva bilaterally. Neck: The neck is supple, there is no tenderness and ROM intact. Cardiovascular: There is a regular rate and rhythm. No murmur, rub or gallop is appreciated. Respiratory: Lungs are clear to auscultation, respirations are non-labored, breath sounds are equal. Gastrointestinal: Soft, non-distended, non-tender abdomen. Musculoskeletal: ROM of right shoulder limited secondary to pain and stiffness. Shoulder abduction 5/5, elbow flexors 5/5, wrist dorsiflexors 5/5. finger abductor 5/5, antique dealer 5/5, hip flexor 5/5, knee flexor 5/5, ankle dorsiflexor 5/5, ankle plantarflexion 5/5 and extensor hallucis 5/5. Neurological: CN 2-12 intact. There are no obvious motor or sensory deficits. Movement and coordination equal and intact. Sensory exam to light touch intact C5-T1 and intact from L2-S1. Reflexes 2/4 in bilateral upper and lower ext remities. Negative Hoffmans, babinski, and clonus signs. Psychiatric: Cooperative, appropriate mood & affect, normal judgment. Assessment and Plan Right shoulder pain/possible rotator cuff tear Right AC joint arthritis Pain management per medical No surgical intervention is necessary at this time. Patient may follow up in office as an outpatient when discharged. Our services will be signing off, please contact for any further questions or concerns. I reviewed and discussed this case with my attending Dr. Montalvo, whom has reviewed this chart and films and is in agreement with assessment and plan of care as outlined above. I have personally seen and examined the patient, performed the documentation and the assessment and plan as written. Number of minutes spent on the visit: 20m. Past Medical History Past Medical History: Asthma, Blood Disorder, Cancer, Diabetes Mellitus, Deep Vein Thrombosis (DVT), GERD/Reflux, GI Bleed, Hyperlipidemia, Hypertension, Osteoarthritis (OA), Pneumonia, Pulmonary Embolus (PE), Thyroid Disorder Additional Past Medical History / Comment(s): occular migraines, SOB with activity, hx cellulitis x 5, clotting disorder-Factor V- Leiden, basal cell skin ca(folicular), heart murmur, kidney stones, edema rt leg, History of Any Multi-Drug Resistant Organisms: None Reported, MRSA Year Discovered:: 2012 MDRO Source:: bilateral legs Past Surgical History: Cholecystectomy, Hernia Repair, Tonsillectomy Additional Past Surgical History / Comment(s): 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 Father Family Medical History: No Reported History Additional Family Medical History / Comment(s): age 72. Medications and Allergies Home Medications Medication Instructions Recorded Confirmed Type Omeprazole [PriLOSEC] 20 mg PO HS 12/29/13 05/12/22 History Atorvastatin [Lipitor] 10 mg PO PC-LUNCH 10/04/17 05/12/22 History Levothyroxine Sodium [Synthroid] 200 mcg PO DAILY 10/20/19 05/12/22 History Montelukast Sodium [Singulair] 10 mg PO HS 10/20/19 05/12/22 History Spironolactone 50 mg PO DAILY 10/20/19 05/12/22 History Albuterol Sulfate [Ventolin HFA] 2 puff INHALATION RT-Q4H PRN 01/06/20 05/12/22 History Testosterone Cypionate 200 mg IM Q14D 03/31/20 05/12/22 History [Depo-Testosterone] tiZANidine HCL [Zanaflex] 4 mg PO TID PRN 03/31/20 05/12/22 History Triamterene-Hctz 37.5-25Mg 1 cap PO DAILY 05/24/20 05/12/22 History [Dyazide 37.5-25 Capsule] Rivaroxaban [Xarelto] 20 mg PO DAILY@1600 05/03/21 05/12/22 History Losartan [Cozaar] 50 mg PO HS 05/12/22 05/12/22 History Pioglitazone [Actos] 15 mg PO DAILY 05/12/22 05/12/22 History dilTIAZem HCL [dilTIAZem [id number] 240 mg PO DAILY 05/12/22 05/12/22 History ER (CD)] Allergies Allergy/AdvReac Type Severity Reaction Status Date / Time Iodinated Contrast Media Allergy Anaphylaxis Verified 05/12/22 07:10 iodine Allergy Anaphylaxis Verified 05/12/22 07:10 latex Allergy see comment Verified 05/12/22 07:10 shellfish derived Allergy Anaphylaxis Verified 05/12/22 07:10 shrimp Allergy Anaphylaxis Verified 05/12/22 07:10 tuna oil Allergy Unknown Verified 05/12/22 07:10 codeine AdvReac Rapid Verified 05/12/22 07:10 Heart Rate lisinopril AdvReac Cough Verified 05/12/22 07:10 Physical Examination Osteopathic Statement: *. No significant issues noted on an osteopathic structural exam other than those noted in the History and Physical/Consult. Results - Labs Labs: Abnormal Lab Results - Last 24 Hours (Table) 05/13/22 05/13/22 05/13/22 Range/Units 06:32 06:32 11:09 WBC 10.93 H (4.50-10.00) X 10*3/uL RBC 3.99 L (4.40-5.60) X 10*6/uL Hgb 11.4 L (13.0-17.0) g/dL Hct 36.3 L (39.6-50.0) % MCHC 31.4 L (32.0-37.0) g/dL RDW 18.3 H (11.5-14.5) % Immature Gran # 0.45 H (0.00-0.04) X 10*3/uL Neutrophils # 8.67 H (1.80-7.70) X 10*3/uL Lymphocytes # 0.76 L (0.90-5.00) X 10*3/uL Eosinophils # (0.04-0.35) X 10*3/uL BUN 60.0 H (9.0-27.0) mg/dL Creatinine 1.8 H (0.6-1.5) mg/dL Est GFR (CKD-EPI)AfAm 42.0 L (60.0-200.0) Est GFR (CKD-EPI)NonAf 36.3 L (60.0-200.0) BUN/Creatinine Ratio 33.33 H (12.00-20.00) Ratio Glucose 180 H (70-110) mg/dL POC Glucose (mg/dL) 164 H (70-110) mg/dL Calcium 8.4 L (8.7-10.3) mg/dL 05/13/22 05/13/22 05/14/22 Range/Units 16:57 20:34 04:29 WBC (4.50-10.00) X 10*3/uL RBC (4.40-5.60) X 10*6/uL Hgb (13.0-17.0) g/dL Hct (39.6-50.0) % MCHC (32.0-37.0) g/dL RDW (11.5-14.5) % Immature Gran # (0.00-0.04) X 10*3/uL Neutrophils # (1.80-7.70) X 10*3/uL Lymphocytes # (0.90-5.00) X 10*3/uL Eosinophils # (0.04-0.35) X 10*3/uL BUN 52.6 H (9.0-27.0) mg/dL Creatinine 1.8 H (0.6-1.5) mg/dL Est GFR (CKD-EPI)AfAm 43.5 L (60.0-200.0) Est GFR (CKD-EPI)NonAf 37.5 L (60.0-200.0) BUN/Creatinine Ratio 30.06 H (12.00-20.00) Ratio Glucose 169 H (70-110) mg/dL POC Glucose (mg/dL) 155 H 152 H (70-110) mg/dL Calcium 8.1 L (8.7-10.3) mg/dL 05/14/22 05/14/22 Range/Units 04:29 07:17 WBC 11.72 H (4.50-10.00) X 10*3/uL RBC 3.72 L (4.40-5.60) X 10*6/uL Hgb 10.8 L (13.0-17.0) g/dL Hct 32.9 L (39.6-50.0) % MCHC (32.0-37.0) g/dL RDW 18.1 H (11.5-14.5) % Immature Gran # 0.31 H (0.00-0.04) X 10*3/uL Neutrophils # 9.35 H (1.80-7.70) X 10*3/uL Lymphocytes # 0.85 L (0.90-5.00) X 10*3/uL Eosinophils # 0.40 H (0.04-0.35) X 10*3/uL BUN (9.0-27.0) mg/dL Creatinine (0.6-1.5) mg/dL Est GFR (CKD-EPI)AfAm (60.0-200.0) Est GFR (CKD-EPI)NonAf (60.0-200.0) BUN/Creatinine Ratio (12.00-20.00) Ratio Glucose (70-110) mg/dL POC Glucose (mg/dL) 142 H (70-110) mg/dL Calcium (8.7-10.3) mg/dL H & H 05/12/22 05/13/22 05/14/22 Range/Units 00:55 06:32 04:29 Hgb 13.9 11.4 L 10.8 L (13.0-17.5) gm/dL Hct 45.0 36.3 L 32.9 L (39.0-53.0) % Result Diagrams: 05/14/22 04:29 05/14/22 04:29
[2022-05-14] MEDS ORDERED: MAGNESIUM SULFATE-D5W PMX 1 GM in DEXTROSE/WATER 1 100ML.BAG IVPB ONE (10:34)
--- NOTE | 2022-05-14 10:35 | P.PN ---
Subjective patient is seen in follow-up for acute kidney injury. Renal for stable with creatinine at 1.8 today. admits to good urine output. No vomiting. Does have loose bowel movements. no vomiting. Blood pressure stable. Vital signs are stable. General: awake. No acute distress. HEENT: Head exam is unremarkable. LUNGS: Breath sounds decreased. HEART: Rate and Rhythm are regular. ABDOMEN: soft, obese. EXTREMITITES: No edema. Objective - Vital Signs Vital signs: Vital Signs Temp 97.6 F 05/14/22 07:38 Pulse 81 05/14/22 07:38 Resp 20 05/14/22 07:38 BP 117/72 05/14/22 07:38 Pulse Ox 95 05/14/22 07:38 FiO2 Intake & Output 05/13/22 05/14/22 05/14/22 18:59 06:59 18:59 Output Total 300 Balance -300 Output: Urine 300 Other: # Voids 3 # Bowel Movements 3 - Labs CBC & Chem 7: 05/14/22 04:29 05/14/22 04:29 Labs: Abnormal Lab Results - Last 24 Hours (Table) 05/13/22 05/13/22 05/13/22 Range/Units 06:32 06:32 11:09 WBC 10.93 H (4.50-10.00) X 10*3/uL RBC 3.99 L (4.40-5.60) X 10*6/uL Hgb 11.4 L (13.0-17.0) g/dL Hct 36.3 L (39.6-50.0) % MCHC 31.4 L (32.0-37.0) g/dL RDW 18.3 H (11.5-14.5) % Immature Gran # 0.45 H (0.00-0.04) X 10*3/uL Neutrophils # 8.67 H (1.80-7.70) X 10*3/uL Lymphocytes # 0.76 L (0.90-5.00) X 10*3/uL Eosinophils # (0.04-0.35) X 10*3/uL BUN 60.0 H (9.0-27.0) mg/dL Creatinine 1.8 H (0.6-1.5) mg/dL Est GFR (CKD-EPI)AfAm 42.0 L (60.0-200.0) Est GFR (CKD-EPI)NonAf 36.3 L (60.0-200.0) BUN/Creatinine Ratio 33.33 H (12.00-20.00) Ratio Glucose 180 H (70-110) mg/dL POC Glucose (mg/dL) 164 H (70-110) mg/dL Calcium 8.4 L (8.7-10.3) mg/dL 05/13/22 05/13/22 05/14/22 Range/Units 16:57 20:34 04:29 WBC (4.50-10.00) X 10*3/uL RBC (4.40-5.60) X 10*6/uL Hgb (13.0-17.0) g/dL Hct (39.6-50.0) % MCHC (32.0-37.0) g/dL RDW (11.5-14.5) % Immature Gran # (0.00-0.04) X 10*3/uL Neutrophils # (1.80-7.70) X 10*3/uL Lymphocytes # (0.90-5.00) X 10*3/uL Eosinophils # (0.04-0.35) X 10*3/uL BUN 52.6 H (9.0-27.0) mg/dL Creatinine 1.8 H (0.6-1.5) mg/dL Est GFR (CKD-EPI)AfAm 43.5 L (60.0-200.0) Est GFR (CKD-EPI)NonAf 37.5 L (60.0-200.0) BUN/Creatinine Ratio 30.06 H (12.00-20.00) Ratio Glucose 169 H (70-110) mg/dL POC Glucose (mg/dL) 155 H 152 H (70-110) mg/dL Calcium 8.1 L (8.7-10.3) mg/dL 05/14/22 05/14/22 Range/Units 04:29 07:17 WBC 11.72 H (4.50-10.00) X 10*3/uL RBC 3.72 L (4.40-5.60) X 10*6/uL Hgb 10.8 L (13.0-17.0) g/dL Hct 32.9 L (39.6-50.0) % MCHC (32.0-37.0) g/dL RDW 18.1 H (11.5-14.5) % Immature Gran # 0.31 H (0.00-0.04) X 10*3/uL Neutrophils # 9.35 H (1.80-7.70) X 10*3/uL Lymphocytes # 0.85 L (0.90-5.00) X 10*3/uL Eosinophils # 0.40 H (0.04-0.35) X 10*3/uL BUN (9.0-27.0) mg/dL Creatinine (0.6-1.5) mg/dL Est GFR (CKD-EPI)AfAm (60.0-200.0) Est GFR (CKD-EPI)NonAf (60.0-200.0) BUN/Creatinine Ratio (12.00-20.00) Ratio Glucose (70-110) mg/dL POC Glucose (mg/dL) 142 H (70-110) mg/dL Calcium (8.7-10.3) mg/dL Assessment and Plan Plan: assessment: 1. Acute kidney injury mostly prerenal secondary to hypovolemia from poor intake, diarrhea and further worsened with the use of diuretics and andangiotensin receptor holly. creatinine was 2.27 on admission and is stable at 1.8 today. creatinine in May 2021 was near 1. no hydronephrosis noted on kidney ultrasound. UA fairly benign. 2. Metabolic acidosis secondary to acute kidney injury and GI losses. improved with bicarbonate drip. 3. Hyperkalemia secondary to acute kidney injury, acidosis, triamterene, Aldactone and losartan. Improved with medical management. 4. Diabetes mellitus. plan: Hep-Lock IV fluids. encourage oral intake. continue to hold diuretics and Cozaar. continue to monitor renal function and urine output. Avoid nephrotoxins. add oral bicarbonate. repeat labs in the morning.
[2022-05-14 11:19] LABS: Glucose,Whole Blood 194 mg/dL (70-110)
[2022-05-14] MEDS: DEXTROSE 5% IN WATER 1,000 ML with SODIUM BICARB (1 MEQ/ML) 150 ML IV SCH (11:23)
[2022-05-14] MEDS: SODIUM BICARBONATE TAB 650 MG TAB PO SCH ×2 (12:02→21:50)
[2022-05-14] MEDS: ATORVASTATIN 10 MG TAB PO SCH (12:03)
[2022-05-14 16:30] LABS: Glucose,Whole Blood 135 mg/dL (70-110)
[2022-05-14] MEDS: RIVAROXABAN 20 MG TAB PO SCH (17:12)
--- NOTE | 2022-05-14 17:40 | P.PN ---
Subjective Progress Note Date: 05/14/22 Principal diagnosis: Acute kidney injury mostly prerenal secondary to hypovolemia Metabolic acidosis Critical hyperkalemia secondary to AK I Bilateral lower extremity cellulitis/infected wounds 76-year-old male presenting with weakness, diarrhea and poor appetite. No vomiting. No fever. No chest pain. No abdominal pain. Patient's symptoms have been present for the past 3 weeks. He has been trying Imodium and Pepto- Bismol without improvement in the diarrhea. He has at least one episode daily. Laboratory completed in ED reveals a decrease of 15.6, hemoglobin 13.9 and platelet count of 266, sodium 136, potassium 6.3, BUN/creatinine of 82/2.27 and blood glucose of 107 EKG Findings:: sinus tachycardia with prolonged WA interval, first-degree AV block rate of 103 QRS duration 89, QTC 372, no ST segment elevation 05/14/2022 Patient is seen and evaluated sitting up in bedside chair; discussed with nursing staff; reports increased pain and redness both lower extremities; patient has dressing on both lower extremity wounds which getting frequently saturated with foul-smelling discharge Vital signs are reviewed and remained stable Lab review shows B UN/creatinine of 52/1.8; nephrology on board; recommending to Hep-Lock IV fluids and encourage increased oral fluid intake; diuretics and C ozaar remain on hold; monitor renal function closely; patient has been placed on oral bicarbonate -- Plan to start patient on IV Zosyn for cellulitis lower extremity and infected wounds; ID is consulted for further recommendations -- Patient continues to complain of numerous diarrheal episodes; C. diff is negative; we will consult general surgery, Dr. Chavez, for further evaluation Objective - Vital Signs Vital signs: Vital Signs Temp 97.6 F 05/14/22 07:38 Pulse 81 05/14/22 07:38 Resp 20 05/14/22 07:38 BP 117/72 05/14/22 07:38 Pulse Ox 95 05/14/22 07:38 FiO2 Intake & Output 05/13/22 05/14/22 05/14/22 18:59 06:59 18:59 Output Total 300 450 Balance -300 -450 Output: Urine 300 450 Other: # Voids 3 # Bowel Movements 3 - Exam General appearance: alert, in no apparent distress Head exam: Present: atraumatic, normocephalic Eye exam: Present: normal appearance, PERRL ENT exam: Present: mucous membranes moist Neck exam: Present: normal inspection. Absent: tenderness, meningismus Respiratory exam: Present: normal lung sounds bilaterally. Absent: respiratory distress, wheezes Cardiovascular Exam: Present: regular rate, normal rhythm GI/Abdominal exam: Present: soft, distended. Absent: tenderness, guarding, rebound Extremities exam: Present: normal capillary refill, pedal edema Neurological exam: Present: alert, oriented X3, CN II-XII intact. Absent: motor sensory deficit Psychiatric exam: Present: normal affect, normal mood Skin exam: Present: warm, dry, intact. Absent: cyanosis, diaphoretic - Labs CBC & Chem 7: 05/14/22 04:29 05/14/22 04:29 Labs: Abnormal Lab Results - Last 24 Hours (Table) 05/13/22 05/13/22 05/14/22 Range/Units 16:57 20:34 04:29 WBC (4.50-10.00) X 10*3/uL RBC (4.40-5.60) X 10*6/uL Hgb (13.0-17.0) g/dL Hct (39.6-50.0) % RDW (11.5-14.5) % Immature Gran # (0.00-0.04) X 10*3/uL Neutrophils # (1.80-7.70) X 10*3/uL Lymphocytes # (0.90-5.00) X 10*3/uL Eosinophils # (0.04-0.35) X 10*3/uL BUN 52.6 H (9.0-27.0) mg/dL Creatinine 1.8 H (0.6-1.5) mg/dL Est GFR (CKD-EPI)AfAm 43.5 L (60.0-200.0) Est GFR (CKD-EPI)NonAf 37.5 L (60.0-200.0) BUN/Creatinine Ratio 30.06 H (12.00-20.00) Ratio Glucose 169 H (70-110) mg/dL POC Glucose (mg/dL) 155 H 152 H (70-110) mg/dL Calcium 8.1 L (8.7-10.3) mg/dL 05/14/22 05/14/22 05/14/22 Range/Units 04:29 07:17 11:14 WBC 11.72 H (4.50-10.00) X 10*3/uL RBC 3.72 L (4.40-5.60) X 10*6/uL Hgb 10.8 L (13.0-17.0) g/dL Hct 32.9 L (39.6-50.0) % RDW 18.1 H (11.5-14.5) % Immature Gran # 0.31 H (0.00-0.04) X 10*3/uL Neutrophils # 9.35 H (1.80-7.70) X 10*3/uL Lymphocytes # 0.85 L (0.90-5.00) X 10*3/uL Eosinophils # 0.40 H (0.04-0.35) X 10*3/uL BUN (9.0-27.0) mg/dL Creatinine (0.6-1.5) mg/dL Est GFR (CKD-EPI)AfAm (60.0-200.0) Est GFR (CKD-EPI)NonAf (60.0-200.0) BUN/Creatinine Ratio (12.00-20.00) Ratio Glucose (70-110) mg/dL POC Glucose (mg/dL) 142 H 194 H (70-110) mg/dL Calcium (8.7-10.3) mg/dL Assessment and Plan Assessment: 1. Acute renal injury; likely prerenal related to hypovolemia resulting from poor oral intake, vomiting, diarrhea; patient has been using diuretics also - Creatinine was found to be 2.27 in ED; baseline creatinine is at 1 - Renal ultrasound is completed and does not reveal any hydronephrosis - We will continue with IV fluid hydration; monitor strict DMITRIY's, daily weights, and electrolytes; avoid nephrotoxins and hypotension; continue to hold diuretics and Cozaar - Consult nephrology for further recommendations 2. Metabolic acidosis; multifactorial; related to acute renal failure and GI loss - Patient has been placed on bicarbonate infusion; we will monitor closely and make adjustments accordingly 3. Critical hyperkalemia; potassium at 6.3 in ED; potassium is down to 5.9 after aggressive treatment in ED; we will repeat D50 and IV insulin; calcium gluconate - Monitor electrolytes closely 4. Leukocytosis; no signs of infection; likely reactive; 's workup if white blood count continues to trend up 5. Hypothyroidism; Synthroid to 200 MCG daily 6. Diabetes mellitus type 2; patient remains on Actos 15 mg daily 7. Hyperlipidemia; Lipitor 10 mg daily 8. Hypertension; controlled on Cardizem 240 mg daily; Cozaar remains on hold due to renal failure; continue to hold Aldactone and Dyazide 9. Asthma; not in exacerbation; Singulair 10 mg daily; albuterol inhaler 2 puffs 4 times a day when necessary 10. History of DVT/PE; continue with home dose of Xarelto DVT prophylaxis; SCDs/Xarelto CODE STATUS; full code
[2022-05-14] MEDS ORDERED: PIPERACILLIN-TAZOBACTAM 3.375 GM in SODIUM CHLORIDE 0.9% 100 ML IVPB SCH (17:45)
[2022-05-14 21:16] LABS: Glucose,Whole Blood 161 mg/dL (70-110)
[2022-05-14] MEDS: MONTELUKAST 10 MG TAB PO SCH (21:49)
[2022-05-14] MEDS: PANTOPRAZOLE 40 MG TABLET PO SCH (21:50)
--- NOTE | 2022-05-14 22:36 | P.CONS ---
History of Present Illness - Reason for Consult Consult date: 05/14/22 - History of Present Illness Patient is a 76-year-old male with a past medical history sniffing and for bilateral lower extremity venous stasis ulcer and secondary cellulitis in this patient presented to the hospital 2 days ago on 05/12/2022 for evaluation of weakness diarrhea and decreased appetite patient symptom has been going on for more than a week before presentation the hospital patient denies any vomiting or abdominal pain patient on presentation to the hospital was afebrile and no fever has been recorded subsequently patient did have a white count of 15.6 with a left shift BUN and creatinine has been elevated levels observed normal urine was negative COVID testing was negative patient did have a bilateral lower extremity wound and cellulitis patient right lower extremity patient is currently on Zosyn infectious disease was consulted for further management of antibiotic therapy, patient is complaining of diarrhea with a few loose stools per day he denies any blood or mucus in the stool, the patient has [address] which was negative stool cultures were not done Past Medical History Past Medical History: Asthma, Blood Disorder, Cancer, Diabetes Mellitus, Deep Vein Thrombosis (DVT), GERD/Reflux, GI Bleed, Hyperlipidemia, Hypertension, Osteoarthritis (OA), Pneumonia, Pulmonary Embolus (PE), Thyroid Disorder Additional Past Medical History / Comment(s): occular migraines, SOB with activity, hx cellulitis x 5, clotting disorder-Factor V- Leiden, basal cell skin ca(folicular), heart murmur, kidney stones, edema rt leg, History of Any Multi-Drug Resistant Organisms: None Reported, MRSA Year Discovered:: 2012 MDRO Source:: bilateral legs Past Surgical History: Cholecystectomy, Hernia Repair, Tonsillectomy Additional Past Surgical History / Comment(s): 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 Father Family Medical History: No Reported History Additional Family Medical History / Comment(s): age 72. Medications and Allergies Home Medications Medication Instructions Recorded Confirmed Type Omeprazole [PriLOSEC] 20 mg PO HS 12/29/13 05/12/22 History Atorvastatin [Lipitor] 10 mg PO PC-LUNCH 10/04/17 05/12/22 History Levothyroxine Sodium [Synthroid] 200 mcg PO DAILY 10/20/19 05/12/22 History Montelukast Sodium [Singulair] 10 mg PO HS 10/20/19 05/12/22 History Spironolactone 50 mg PO DAILY 10/20/19 05/12/22 History Albuterol Sulfate [Ventolin HFA] 2 puff INHALATION RT-Q4H PRN 01/06/20 05/12/22 History Testosterone Cypionate 200 mg IM Q14D 03/31/20 05/12/22 History [Depo-Testosterone] tiZANidine HCL [Zanaflex] 4 mg PO TID PRN 03/31/20 05/12/22 History Triamterene-Hctz 37.5-25Mg 1 cap PO DAILY 05/24/20 05/12/22 History [Dyazide 37.5-25 Capsule] Rivaroxaban [Xarelto] 20 mg PO DAILY@1600 05/03/21 05/12/22 History Losartan [Cozaar] 50 mg PO HS 05/12/22 05/12/22 History Pioglitazone [Actos] 15 mg PO DAILY 05/12/22 05/12/22 History dilTIAZem HCL [dilTIAZem [id number] 240 mg PO DAILY 05/12/22 05/12/22 History ER (CD)] Allergies Allergy/AdvReac Type Severity Reaction Status Date / Time Iodinated Contrast Media Allergy Anaphylaxis Verified 05/12/22 07:10 iodine Allergy Anaphylaxis Verified 05/12/22 07:10 latex Allergy see comment Verified 05/12/22 07:10 shellfish derived Allergy Anaphylaxis Verified 05/12/22 07:10 shrimp Allergy Anaphylaxis Verified 05/12/22 07:10 tuna oil Allergy Unknown Verified 05/12/22 07:10 codeine AdvReac Rapid Verified 05/12/22 07:10 Heart Rate lisinopril AdvReac Cough Verified 05/12/22 07:10 Physical Exam Vitals: Vital Signs Temp Pulse Resp BP Pulse Ox 05/14/22 07:38 97.6 F 81 20 117/72 95 05/14/22 01:11 98.5 F 82 18 102/59 95 05/13/22 20:00 91 05/13/22 19:53 97.8 F 91 18 123/59 95 Intake and Output 05/14/22 05/14/22 05/14/22 06:59 14:59 22:59 Output Total 300 450 Balance -300 -450 Output: Urine 300 450 Results CBC & Chem 7: 05/14/22 04:29 05/14/22 04:29 Labs: Abnormal Lab Results - Last 24 Hours (Table) 05/13/22 05/13/22 05/14/22 Range/Units 16:57 20:34 04:29 WBC (4.50-10.00) X 10*3/uL RBC (4.40-5.60) X 10*6/uL Hgb (13.0-17.0) g/dL Hct (39.6-50.0) % RDW (11.5-14.5) % Immature Gran # (0.00-0.04) X 10*3/uL Neutrophils # (1.80-7.70) X 10*3/uL Lymphocytes # (0.90-5.00) X 10*3/uL Eosinophils # (0.04-0.35) X 10*3/uL BUN 52.6 H (9.0-27.0) mg/dL Creatinine 1.8 H (0.6-1.5) mg/dL Est GFR (CKD-EPI)AfAm 43.5 L (60.0-200.0) Est GFR (CKD-EPI)NonAf 37.5 L (60.0-200.0) BUN/Creatinine Ratio 30.06 H (12.00-20.00) Ratio Glucose 169 H (70-110) mg/dL POC Glucose (mg/dL) 155 H 152 H (70-110) mg/dL Calcium 8.1 L (8.7-10.3) mg/dL 05/14/22 05/14/22 05/14/22 Range/Units 04:29 07:17 11:14 WBC 11.72 H (4.50-10.00) X 10*3/uL RBC 3.72 L (4.40-5.60) X 10*6/uL Hgb 10.8 L (13.0-17.0) g/dL Hct 32.9 L (39.6-50.0) % RDW 18.1 H (11.5-14.5) % Immature Gran # 0.31 H (0.00-0.04) X 10*3/uL Neutrophils # 9.35 H (1.80-7.70) X 10*3/uL Lymphocytes # 0.85 L (0.90-5.00) X 10*3/uL Eosinophils # 0.40 H (0.04-0.35) X 10*3/uL BUN (9.0-27.0) mg/dL Creatinine (0.6-1.5) mg/dL Est GFR (CKD-EPI)AfAm (60.0-200.0) Est GFR (CKD-EPI)NonAf (60.0-200.0) BUN/Creatinine Ratio (12.00-20.00) Ratio Glucose (70-110) mg/dL POC Glucose (mg/dL) 142 H 194 H (70-110) mg/dL Calcium (8.7-10.3) mg/dL Assessment and Plan Plan: 1patient with bilateral lower extremity ulcers and cellulitis especially in the right leg with a cellulitis more likely from gram-positive skin as well as l livanely gram-negative infection 2-patient presenting with diarrhea and abdominal pain stroboscopy was negative we will obtain stool culture 3discontinue Zosyn 4start the patient on Unasyn We will follow on clinical condition and cultures to further adjust medication if needed Thank you for this consultation will follow this patient along with you Time with Patient: Greater than 30
[2022-05-15] MEDS: AMPICILLIN-SULBACTAM 3 GM in SODIUM CHLORIDE 0.9% 100 ML IVPB SCH ×4 (00:19→17:40)
[2022-05-15] MEDS: LEVOTHYROXINE 100 MCG TAB PO SCH (06:08)
[2022-05-15 07:14] LABS: Glucose,Whole Blood 142 mg/dL (70-110)
[2022-05-15] MEDS: INSULIN ASPART (NovoLOG) 100 UNIT/ML VIAL SQ SCH ×4 (07:30→22:34)
[2022-05-15] MEDS: SODIUM BICARBONATE TAB 650 MG TAB PO SCH ×2 (08:18→22:34)
[2022-05-15] MEDS: PIOGLITAZONE 15 MG TAB PO SCH (08:18)
[2022-05-15] MEDS: DILTIAZEM CD 240 MG CAP.ER.24H PO SCH (08:18)
[2022-05-15 09:26] LABS: Albumin 3.6 g/dL (3.8-4.9); Albumin/Globulin Ratio 0.97 (1.60-3.17); Anion Gap 15.3 mmol/L (10.00-18.00); BUN/Creat Ratio 25.82 Ratio (12.00-20.00); Blood Urea Nitrogen 43.9 mg/dL (9.0-27.0); C Reactive Protein 3.7 mg/dL (0.00-0.80); Calcium 8.8 mg/dL (8.7-10.3); Carbon Dioxide 20.7 mmol/L (20.0-27.5); Globulin 3.7 g/dL (1.6-3.3); Magnesium 1.8 mg/dL (1.5-2.4); Non-African American GFR(CKD) 38.9 (60.0-200.0); Potassium 4.4 mmol/L (3.5-5.5); Total Bilirubin 0.3 mg/dL (0.30-1.20); Total Protein 7.3 g/dL (6.2-8.2)
[2022-05-15 09:34] LABS: Basophils % (A) 0.8 %; Eosinophils % (A) 3.4 %; HCT 38.9 % (39.6-50.0); HGB 12.5 g/dL (13.0-17.0); Immature Grans, Automated 2.5 %; Lymphocytes # (A) 0.83 X 10*3/uL (0.90-5.00); MCH 28.7 pg (27.0-32.0); MCHC 32.1 g/dL (32.0-37.0); MCV 89.2 fL (80.0-97.0); Mean Platelet Volume 9.9 fL (9.5-12.2); Monocytes # (A) 0.63 X 10*3/uL (0.20-1.00); Monocytes % (A) 5.3 %; NRBC Per 100 WBC 0 /100 WBCS (0.0-0.0); Neutrophils # (A) 9.58 X 10*3/uL (1.80-7.70); Platelet Count 268 X 10*3/uL (140-440); RBC 4.36 X 10*6/uL (4.40-5.60); WBC 11.84 X 10*3/uL (4.50-10.00)
--- NOTE | 2022-05-15 11:28 | P.GSCN ---
History of Present Illness Consult date: 05/15/22 Reason for Consult: Diarrhea History of present illness: 76-year-old male known to our service. The patient has had 2 colonoscopies in the past by our service. He is not aware of how long ago these colonoscopies were. Apparently the last one was performed at [facility]. My office is trying to find those results currently. Presents with 3 week history of loose stools, decreased appetite, weight loss. Patient says he will have anywhere from 1-3 loose stools per day. Nonbloody. Mild lower abdominal discomfort at times. Last bowel movement here in the hospital was yesterday and it was more formed he says. C. diff was negative on arrival. White blood cell count was elevated. It is improved but remains mildly elevated. Stool cultures are pending. He had an ultrasound of the kidneys. Otherwise no abdominal im aging. He is afebrile. Review of Systems The patient denies any acute changes in vision or hearing, no dysphagia or odynophagia, no chest pain or shortness of breath, no dysuria or hematuria, no headache, no runny nose, no rectal bleeding or melena Past Medical History Past Medical History: Asthma, Blood Disorder, Cancer, Diabetes Mellitus, Deep Vein Thrombosis (DVT), GERD/Reflux, GI Bleed, Hyperlipidemia, Hypertension, Osteoarthritis (OA), Pneumonia, Pulmonary Embolus (PE), Thyroid Disorder Additional Past Medical History / Comment(s): occular migraines, SOB with activity, hx cellulitis x 5, clotting disorder-Factor V- Leiden, basal cell skin ca(folicular), heart murmur, kidney stones, edema rt leg, History of Any Multi-Drug Resistant Organisms: None Reported, MRSA Year Discovered:: 2012 MDRO Source:: bilateral legs Past Surgical History: Cholecystectomy, Hernia Repair, Tonsillectomy Additional Past Surgical History / Comment(s): 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 Father Family Medical History: No Reported History Additional Family Medical History / Comment(s): age 72. Medications and Allergies Home Medications Medication Instructions Recorded Confirmed Type Omeprazole [PriLOSEC] 20 mg PO HS 12/29/13 05/12/22 History Atorvastatin [Lipitor] 10 mg PO PC-LUNCH 10/04/17 05/12/22 History Levothyroxine Sodium [Synthroid] 200 mcg PO DAILY 10/20/19 05/12/22 History Montelukast Sodium [Singulair] 10 mg PO HS 10/20/19 05/12/22 History Spironolactone 50 mg PO DAILY 10/20/19 05/12/22 History Albuterol Sulfate [Ventolin HFA] 2 puff INHALATION RT-Q4H PRN 01/06/20 05/12/22 History Testosterone Cypionate 200 mg IM Q14D 03/31/20 05/12/22 History [Depo-Testosterone] tiZANidine HCL [Zanaflex] 4 mg PO TID PRN 03/31/20 05/12/22 History Triamterene-Hctz 37.5-25Mg 1 cap PO DAILY 05/24/20 05/12/22 History [Dyazide 37.5-25 Capsule] Rivaroxaban [Xarelto] 20 mg PO DAILY@1600 05/03/21 05/12/22 History Losartan [Cozaar] 50 mg PO HS 05/12/22 05/12/22 History Pioglitazone [Actos] 15 mg PO DAILY 05/12/22 05/12/22 History dilTIAZem HCL [dilTIAZem [id number] 240 mg PO DAILY 05/12/22 05/12/22 History ER (CD)] Allergies Allergy/AdvReac Type Severity Reaction Status Date / Time Iodinated Contrast Media Allergy Anaphylaxis Verified 05/12/22 07:10 iodine Allergy Anaphylaxis Verified 05/12/22 07:10 latex Allergy see comment Verified 05/12/22 07:10 shellfish derived Allergy Anaphylaxis Verified 05/12/22 07:10 shrimp Allergy Anaphylaxis Verified 05/12/22 07:10 tuna oil Allergy Unknown Verified 05/12/22 07:10 codeine AdvReac Rapid Verified 05/12/22 07:10 Heart Rate lisinopril AdvReac Cough Verified 05/12/22 07:10 Surgical - Exam Vital Signs Temp Pulse Resp BP Pulse Ox 97.8 F 104 H 22 114/64 95 05/11/22 18:46 05/11/22 18:46 05/11/22 18:46 05/11/22 18:46 05/11/22 18:46 Physical exam: General: Well-developed, well-nourished HEENT: Normocephalic, sclerae nonicteric Abdomen: Obese, no significant tenderness on exam, mildly distended Extremities: Bilateral lower extremity edema with venous stasis ulcers Neuro: Alert and oriented Results - Labs 05/15/22 04:45 05/15/22 04:45 Abnormal Lab Results - Last 24 Hours (Table) 05/14/22 05/14/22 05/15/22 Range/Units 16:28 21:15 04:45 WBC (4.50-10.00) X 10*3/uL RBC (4.40-5.60) X 10*6/uL Hgb (13.0-17.0) g/dL Hct (39.6-50.0) % RDW (11.5-14.5) % Immature Gran # (0.00-0.04) X 10*3/uL Neutrophils # (1.80-7.70) X 10*3/uL Lymphocytes # (0.90-5.00) X 10*3/uL Eosinophils # (0.04-0.35) X 10*3/uL BUN (9.0-27.0) mg/dL Creatinine (0.6-1.5) mg/dL Est GFR (CKD-EPI)AfAm (60.0-200.0) Est GFR (CKD-EPI)NonAf (60.0-200.0) BUN/Creatinine Ratio (12.00-20.00) Ratio Glucose (70-110) mg/dL POC Glucose (mg/dL) 135 H 161 H (70-110) mg/dL Hemoglobin A1c 6.7 H (0.0-6.0) % C-Reactive Protein (0.00-0.80) mg/dL Albumin (3.8-4.9) g/dL Globulin (1.6-3.3) g/dL Albumin/Globulin Ratio (1.60-3.17) g/dL TSH (0.350-5.500) uIU/mL 05/15/22 05/15/22 05/15/22 Range/Units 04:45 04:45 07:13 WBC 11.84 H (4.50-10.00) X 10*3/uL RBC 4.36 L (4.40-5.60) X 10*6/uL Hgb 12.5 L (13.0-17.0) g/dL Hct 38.9 L (39.6-50.0) % RDW 18.0 H (11.5-14.5) % Immature Gran # 0.30 H (0.00-0.04) X 10*3/uL Neutrophils # 9.58 H (1.80-7.70) X 10*3/uL Lymphocytes # 0.83 L (0.90-5.00) X 10*3/uL Eosinophils # 0.40 H (0.04-0.35) X 10*3/uL BUN 43.9 H (9.0-27.0) mg/dL Creatinine 1.7 H (0.6-1.5) mg/dL Est GFR (CKD-EPI)AfAm 45.0 L (60.0-200.0) Est GFR (CKD-EPI)NonAf 38.9 L (60.0-200.0) BUN/Creatinine Ratio 25.82 H (12.00-20.00) Ratio Glucose 171 H (70-110) mg/dL POC Glucose (mg/dL) 142 H (70-110) mg/dL Hemoglobin A1c (0.0-6.0) % C-Reactive Protein 3.70 H (0.00-0.80) mg/dL Albumin 3.6 L (3.8-4.9) g/dL Globulin 3.7 H (1.6-3.3) g/dL Albumin/Globulin Ratio 0.97 L (1.60-3.17) g/dL TSH 15.400 H (0.350-5.500) uIU/mL Diabetes panel 05/15/22 05/15/22 Range/Units 04:45 04:45 Sodium 135 (135-145) mmol/L Potassium 4.4 (3.5-5.5) mmol/L Chloride 99 (96-109) mmol/L Carbon Dioxide 20.7 (20.0-27.5) mmol/L BUN 43.9 H (9.0-27.0) mg/dL Creatinine 1.7 H (0.6-1.5) mg/dL Glucose 171 H (70-110) mg/dL Hemoglobin A1c 6.7 H (0.0-6.0) % Calcium 8.8 (8.7-10.3) mg/dL AST 18 (14-35) U/L ALT 12 (10-49) U/L Alkaline Phosphatase 119 (41-126) U/L Total Protein 7.3 (6.2-8.2) g/dL Albumin 3.6 L (3.8-4.9) g/dL Thyroid panel 05/15/22 Range/Units 04:45 TSH 15.400 H (0.350-5.500) uIU/mL Calcium panel 05/15/22 Range/Units 04:45 Calcium 8.8 (8.7-10.3) mg/dL Albumin 3.6 L (3.8-4.9) g/dL Pituitary panel 05/15/22 Range/Units 04:45 Sodium 135 (135-145) mmol/L Potassium 4.4 (3.5-5.5) mmol/L Chloride 99 (96-109) mmol/L Carbon Dioxide 20.7 (20.0-27.5) mmol/L BUN 43.9 H (9.0-27.0) mg/dL Creatinine 1.7 H (0.6-1.5) mg/dL Glucose 171 H (70-110) mg/dL Calcium 8.8 (8.7-10.3) mg/dL TSH 15.400 H (0.350-5.500) uIU/mL Adrenal panel 05/15/22 Range/Units 04:45 Sodium 135 (135-145) mmol/L Potassium 4.4 (3.5-5.5) mmol/L Chloride 99 (96-109) mmol/L Carbon Dioxide 20.7 (20.0-27.5) mmol/L BUN 43.9 H (9.0-27.0) mg/dL Creatinine 1.7 H (0.6-1.5) mg/dL Glucose 171 H (70-110) mg/dL Calcium 8.8 (8.7-10.3) mg/dL Total Bilirubin 0.30 (0.30-1.20) mg/dL AST 18 (14-35) U/L ALT 12 (10-49) U/L Alkaline Phosphatase 119 (41-126) U/L Total Protein 7.3 (6.2-8.2) g/dL Albumin 3.6 L (3.8-4.9) g/dL Assessment and Plan (1) Diarrhea Narrative/Plan: 76-year-old male with diarrhea. Patient also has associated anorexia and weight loss. Etiology unclear at this time. We'll order abdominal x-rays to begin with. Will review my most recent colonoscopy report. Await stool cultures. Will follow. Current Visit: Yes Status: Acute Code(s): R19.7 - DIARRHEA, UNSPECIFIED SNOMED Code(s): 98444384
[2022-05-15 11:50] LABS: Glucose,Whole Blood 157 mg/dL (70-110)
--- NOTE | 2022-05-15 12:25 | P.PN ---
Subjective patient is seen in follow-up for acute kidney injury. Renal for stable with creatinine at 1.7 today. admits to good urine output. No vomiting. Does have loose bowel movements. no vomiting. Blood pressure stable. Objective - Vital Signs Vital signs: Vital Signs Temp 98.4 F 05/15/22 08:00 Pulse 85 05/15/22 08:00 Resp 18 05/15/22 08:00 BP 112/67 05/15/22 08:00 Pulse Ox 95 05/15/22 08:00 FiO2 Intake & Output 05/14/22 05/15/22 05/15/22 18:59 06:59 18:59 Output Total 450 300 Balance -450 -300 Output: Urine 450 300 Other: Voiding Method Urinal - Exam Patient is awake, comfortable, not in any acute distress Examination of the heart S1 and S2 Examination of the lungs bilateral breath sounds are heard Abdomen is soft nontender Examination lower extremity shows no significant edema - Labs CBC & Chem 7: 05/15/22 04:45 05/15/22 04:45 Labs: Abnormal Lab Results - Last 24 Hours (Table) 05/14/22 05/14/22 05/15/22 Range/Units 16:28 21:15 04:45 WBC (4.50-10.00) X 10*3/uL RBC (4.40-5.60) X 10*6/uL Hgb (13.0-17.0) g/dL Hct (39.6-50.0) % RDW (11.5-14.5) % Immature Gran # (0.00-0.04) X 10*3/uL Neutrophils # (1.80-7.70) X 10*3/uL Lymphocytes # (0.90-5.00) X 10*3/uL Eosinophils # (0.04-0.35) X 10*3/uL BUN (9.0-27.0) mg/dL Creatinine (0.6-1.5) mg/dL Est GFR (CKD-EPI)AfAm (60.0-200.0) Est GFR (CKD-EPI)NonAf (60.0-200.0) BUN/Creatinine Ratio (12.00-20.00) Ratio Glucose (70-110) mg/dL POC Glucose (mg/dL) 135 H 161 H (70-110) mg/dL Hemoglobin A1c 6.7 H (0.0-6.0) % C-Reactive Protein (0.00-0.80) mg/dL Albumin (3.8-4.9) g/dL Globulin (1.6-3.3) g/dL Albumin/Globulin Ratio (1.60-3.17) g/dL TSH (0.350-5.500) uIU/mL 05/15/22 05/15/22 05/15/22 Range/Units 04:45 04:45 07:13 WBC 11.84 H (4.50-10.00) X 10*3/uL RBC 4.36 L (4.40-5.60) X 10*6/uL Hgb 12.5 L (13.0-17.0) g/dL Hct 38.9 L (39.6-50.0) % RDW 18.0 H (11.5-14.5) % Immature Gran # 0.30 H (0.00-0.04) X 10*3/uL Neutrophils # 9.58 H (1.80-7.70) X 10*3/uL Lymphocytes # 0.83 L (0.90-5.00) X 10*3/uL Eosinophils # 0.40 H (0.04-0.35) X 10*3/uL BUN 43.9 H (9.0-27.0) mg/dL Creatinine 1.7 H (0.6-1.5) mg/dL Est GFR (CKD-EPI)AfAm 45.0 L (60.0-200.0) Est GFR (CKD-EPI)NonAf 38.9 L (60.0-200.0) BUN/Creatinine Ratio 25.82 H (12.00-20.00) Ratio Glucose 171 H (70-110) mg/dL POC Glucose (mg/dL) 142 H (70-110) mg/dL Hemoglobin A1c (0.0-6.0) % C-Reactive Protein 3.70 H (0.00-0.80) mg/dL Albumin 3.6 L (3.8-4.9) g/dL Globulin 3.7 H (1.6-3.3) g/dL Albumin/Globulin Ratio 0.97 L (1.60-3.17) g/dL TSH 15.400 H (0.350-5.500) uIU/mL 05/15/22 Range/Units 11:48 WBC (4.50-10.00) X 10*3/uL RBC (4.40-5.60) X 10*6/uL Hgb (13.0-17.0) g/dL Hct (39.6-50.0) % RDW (11.5-14.5) % Immature Gran # (0.00-0.04) X 10*3/uL Neutrophils # (1.80-7.70) X 10*3/uL Lymphocytes # (0.90-5.00) X 10*3/uL Eosinophils # (0.04-0.35) X 10*3/uL BUN (9.0-27.0) mg/dL Creatinine (0.6-1.5) mg/dL Est GFR (CKD-EPI)AfAm (60.0-200.0) Est GFR (CKD-EPI)NonAf (60.0-200.0) BUN/Creatinine Ratio (12.00-20.00) Ratio Glucose (70-110) mg/dL POC Glucose (mg/dL) 157 H (70-110) mg/dL Hemoglobin A1c (0.0-6.0) % C-Reactive Protein (0.00-0.80) mg/dL Albumin (3.8-4.9) g/dL Globulin (1.6-3.3) g/dL Albumin/Globulin Ratio (1.60-3.17) g/dL TSH (0.350-5.500) uIU/mL Assessment and Plan Assessment: 1. Acute kidney injury mostly prerenal secondary to hypovolemia from poor intake, diarrhea and further worsened with the use of diuretics and andangiotensin receptor holly. creatinine was 2.27 on admission and is stable at 1.7 today. creatinine in May 2021 was near 1. no hydronephrosis noted on kidney ultrasound. UA fairly benign. 2. Metabolic acidosis secondary to acute kidney injury and GI losses. improved with bicarbonate drip. 3. Hyperkalemia secondary to acute kidney injury, acidosis, triamterene, Aldactone and losartan. Improved with medical management. 4. Diabetes mellitus. 5. CK D NKF stage III a bit baseline creatinine about 1.2-1.5 mg/dL. Etiology is nephrosclerosis. UA shows trace protein Plan: Continue to hold angiotensin receptor blockers Encourage increased oral intake Continue oral sodium bicarb Repeat labs in a.m.
--- NOTE | 2022-05-15 13:38 | P.PN ---
Subjective 76-year-old male presenting with weakness, diarrhea and poor appetite. No vomiting. No fever. No chest pain. No abdominal pain. Patient's symptoms have been present for the past 3 weeks. He has been trying Imodium and Pepto- Bismol without improvement in the diarrhea. He has at least one episode daily. Laboratory completed in ED reveals a decrease of 15.6, hemoglobin 13.9 and platelet count of 266, sodium 136, potassium 6.3, BUN/creatinine of 82/2.27 and blood glucose of 107 EKG Findings:: sinus tachycardia with prolonged NE interval, first-degree AV block rate of 103 QRS duration 89, QTC 372, no ST segment elevation 05/14/2022 Patient is seen and evaluated sitting up in bedside chair; discussed with nursing staff; reports increased pain and redness both lower extremities; patient has dressing on both lower extremity wounds which getting frequently saturated with foul-smelling discharge Vital signs are reviewed and remained stable Lab review shows B UN/creatinine of 52/1.8; nephrology on board; recommending to Hep-Lock IV fluids and encourage increased oral fluid intake; diuretics and Cozaar remain on hold; monitor renal function closely; patient has been placed on oral bicarbonate -- Plan to start patient on IV Zosyn for cellulitis lower extremity and infected wounds; ID is consulted for further recommendations -- Patient continues to complain of numerous diarrheal episodes; C. diff is negative; we will consult general surgery, Dr. Chavez, for further evaluation 05/15/2022 This is a pleasant 76 years old male who presents originally because of ongoing diarrhea for about 3 weeks. Since admission his diarrhea was stopped and he did not have a bowel movement over the last 2 days. He has some nausea vomiting but currently he is able to tolerate diet about 50- 100%. He ate about half of his breakfast meal. Also patient is complaining of from some hemorrhoids. Now he has evidence of cellulitis of right leg Objective - Vital Signs Vital signs: Vital Signs Temp 98.4 F 05/15/22 08:00 Pulse 85 05/15/22 08:00 Resp 18 05/15/22 08:00 BP 112/67 05/15/22 08:00 Pulse Ox 95 05/15/22 08:00 FiO2 Intake & Output 05/14/22 05/15/22 05/15/22 18:59 06:59 18:59 Output Total 450 300 Balance -450 -300 Output: Urine 450 300 Other: Voiding Method Urinal - Exam GENERAL: The patient is alert and oriented x3, not in any acute distress. Well developed, well nourished. HEENT: Pupils are round and equally reacting to light. EOMI. No scleral icterus. No conjunctival pallor. Normocephalic, atraumatic. No pharyngeal erythema. No thyromegaly. CARDIOVASCULAR: S1 and S2 present. No murmurs, rubs, or gallops. PULMONARY: Chest is clear to auscultation, no wheezing or crackles. ABDOMEN: Soft, nontender, nondistended, normoactive bowel sounds. No palpable organomegaly. MUSCULOSKELETAL: No joint swelling or deformity. -EXTREMITIES: No cyanosis, clubbing, or pedal edema. Right leg cellulitis NEUROLOGICAL: Gross neurological examination did not reveal any focal deficits. SKIN: No rashes. no petechiae. - Labs CBC & Chem 7: 05/15/22 04:45 05/15/22 04:45 Labs: Abnormal Lab Results - Last 24 Hours (Table) 05/14/22 05/14/22 05/14/22 Range/Units 11:14 16:28 21:15 WBC (4.50-10.00) X 10*3/uL RBC (4.40-5.60) X 10*6/uL Hgb (13.0-17.0) g/dL Hct (39.6-50.0) % RDW (11.5-14.5) % Immature Gran # (0.00-0.04) X 10*3/uL Neutrophils # (1.80-7.70) X 10*3/uL Lymphocytes # (0.90-5.00) X 10*3/uL Eosinophils # (0.04-0.35) X 10*3/uL BUN (9.0-27.0) mg/dL Creatinine (0.6-1.5) mg/dL Est GFR (CKD-EPI)AfAm (60.0-200.0) Est GFR (CKD-EPI)NonAf (60.0-200.0) BUN/Creatinine Ratio (12.00-20.00) Ratio Glucose (70-110) mg/dL POC Glucose (mg/dL) 194 H 135 H 161 H (70-110) mg/dL Hemoglobin A1c (0.0-6.0) % C-Reactive Protein (0.00-0.80) mg/dL Albumin (3.8-4.9) g/dL Globulin (1.6-3.3) g/dL Albumin/Globulin Ratio (1.60-3.17) g/dL TSH (0.350-5.500) uIU/mL 05/15/22 05/15/22 05/15/22 Range/Units 04:45 04:45 04:45 WBC 11.84 H (4.50-10.00) X 10*3/uL RBC 4.36 L (4.40-5.60) X 10*6/uL Hgb 12.5 L (13.0-17.0) g/dL Hct 38.9 L (39.6-50.0) % RDW 18.0 H (11.5-14.5) % Immature Gran # 0.30 H (0.00-0.04) X 10*3/uL Neutrophils # 9.58 H (1.80-7.70) X 10*3/uL Lymphocytes # 0.83 L (0.90-5.00) X 10*3/uL Eosinophils # 0.40 H (0.04-0.35) X 10*3/uL BUN 43.9 H (9.0-27.0) mg/dL Creatinine 1.7 H (0.6-1.5) mg/dL Est GFR (CKD-EPI)AfAm 45.0 L (60.0-200.0) Est GFR (CKD-EPI)NonAf 38.9 L (60.0-200.0) BUN/Creatinine Ratio 25.82 H (12.00-20.00) Ratio Glucose 171 H (70-110) mg/dL POC Glucose (mg/dL) (70-110) mg/dL Hemoglobin A1c 6.7 H (0.0-6.0) % C-Reactive Protein 3.70 H (0.00-0.80) mg/dL Albumin 3.6 L (3.8-4.9) g/dL Globulin 3.7 H (1.6-3.3) g/dL Albumin/Globulin Ratio 0.97 L (1.60-3.17) g/dL TSH 15.400 H (0.350-5.500) uIU/mL 05/15/22 Range/Units 07:13 WBC (4.50-10.00) X 10*3/uL RBC (4.40-5.60) X 10*6/uL Hgb (13.0-17.0) g/dL Hct (39.6-50.0) % RDW (11.5-14.5) % Immature Gran # (0.00-0.04) X 10*3/uL Neutrophils # (1.80-7.70) X 10*3/uL Lymphocytes # (0.90-5.00) X 10*3/uL Eosinophils # (0.04-0.35) X 10*3/uL BUN (9.0-27.0) mg/dL Creatinine (0.6-1.5) mg/dL Est GFR (CKD-EPI)AfAm (60.0-200.0) Est GFR (CKD-EPI)NonAf (60.0-200.0) BUN/Creatinine Ratio (12.00-20.00) Ratio Glucose (70-110) mg/dL POC Glucose (mg/dL) 142 H (70-110) mg/dL Hemoglobin A1c (0.0-6.0) % C-Reactive Protein (0.00-0.80) mg/dL Albumin (3.8-4.9) g/dL Globulin (1.6-3.3) g/dL Albumin/Globulin Ratio (1.60-3.17) g/dL TSH (0.350-5.500) uIU/mL Assessment and Plan Assessment: Right leg cellulitis Acute kidney injury on chronic kidney disease, improving Chronic kidney disease stage II-III Chronic leukocytosis Gastroenteritis, most likely reactive, improving. 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 Continue same treatment. Continue with symptomatic treatment. Resume home medication. Monitor lytes and vitals. DVT and GI prophylaxis. Further recommendations as per clinical course of the patie nt DVT prophylaxis: Xarelto GI Prophylaxis: Ppi PT/OT: Pending Prognosis is guarded
[2022-05-15 17:13] LABS: Glucose,Whole Blood 149 mg/dL (70-110)
[2022-05-15] MEDS: ATORVASTATIN 10 MG TAB PO SCH (17:16)
[2022-05-15] MEDS: RIVAROXABAN 20 MG TAB PO SCH (17:16)
[2022-05-15 20:43] LABS: Glucose,Whole Blood 136 mg/dL (70-110)
[2022-05-15] MEDS: MONTELUKAST 10 MG TAB PO SCH (22:34)
[2022-05-15] MEDS: PANTOPRAZOLE 40 MG TABLET PO SCH (22:34)
[2022-05-16] MEDS: AMPICILLIN-SULBACTAM 3 GM in SODIUM CHLORIDE 0.9% 100 ML IVPB SCH ×5 (00:27→23:55)
[2022-05-16] MEDS: LEVOTHYROXINE 100 MCG TAB PO SCH (06:02)
[2022-05-16 07:30] LABS: Glucose,Whole Blood 143 mg/dL (70-110)
[2022-05-16] MEDS: INSULIN ASPART (NovoLOG) 100 UNIT/ML VIAL SQ SCH ×4 (07:40→21:29)
[2022-05-16] MEDS: PIOGLITAZONE 15 MG TAB PO SCH (09:21)
[2022-05-16] MEDS: DILTIAZEM CD 240 MG CAP.ER.24H PO SCH (09:21)
[2022-05-16] MEDS: SODIUM BICARBONATE TAB 650 MG TAB PO SCH ×2 (09:21→21:32)
--- NOTE | 2022-05-16 09:45 | CDI ---
Documentation Clarification Form Date: 05/16/2022 From: Lissa Dudley RN, CCDS Admit Date: 05/12/2022 03:00:00 AM Patient Name: Antony De La Cruz Visit Number: [id number] Discharge Date: ATTENTION: The Clinical Documentation Specialists (CDI) and [facility] Coding Staff appreciate your assistance in clarifying documentation. Please respond to the clarification below the line at the bottom and electronically sign. The CDI & [facility] Coding staff will review the response and follow-up if needed. Please note: Queries are made part of the Legal Health Record. If you have any questions, please contact the author of this message via ITS. Dr. Bayron Lemons Cellulitis is documented in the progress notes starting on 05/14/22. Additional clarification regarding the type of cellulitis is requested. History/risk factors: Diabetes Mellitus, Venous leg ulcers, DVT, Hypertension, PE, Factor V-Leiden, Skin Ca Clinical Indicators: 76 year-old male with history of diabetes mellitus and bilateral venous lower extremity leg ulcers has developed cellulitis bilateral lower extremity, right leg greater than left. 05/12 Labs: WBC 15.6 05/12 Vital signs: (07:28) 117/72 81 20 97.l6 95 % RA Treatment: Zosyn 3.375 GM IVPB Q 8 HRS 05/14-05/15 Unasyn 3 GM IVPB Q6 HRS 05/15 Dressing change to bilateral lower extremity per protocol Please clarify the type of cellulitis, if known: [ ] Cellulitis due to diabetes [ ] Cellulitis due to venous stasis ulcers and diabetes [ ] Other, please specify: [ ] Unable to determine (Template Last Revised: October 2020) Unable to determine MTDD
[2022-05-16 11:55] LABS: Glucose,Whole Blood 175 mg/dL (70-110)
--- NOTE | 2022-05-16 12:23 | P.PN ---
Subjective patient is seen in follow-up for acute kidney injury. Renal for stable with creatinine at 1.7 from yesterday. Admits to good urine output. No vomiting. Does have loose bowel movements. no vomiting. Blood pressure stable. 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 Acute kidney injury mostly prerenal secondary to hypovolemia from poor intake, diarrhea and further worsened with the use of diuretics and andangiotensin receptor holly. creatinine was 2.27 on admission and is stable at 1.7 today. creatinine in May 2021 was near 1.0 No hydronephrosis noted on kidney ultrasound. UA fairly benign. 2. Metabolic acidosis secondary to acute kidney injury and GI losses. improved with bicarbonate drip. 3. Hyperkalemia secondary to acute kidney injury, acidosis, triamterene, Aldactone and losartan. Improved with medical management. 4. Diabetes mellitus. 5. CK D NKF stage III a bit baseline creatinine about 1.2-1.5 mg/dL. Etiology is nephrosclerosis. UA shows trace protein Plan: Continue to hold angiotensin receptor blockers Encourage increased oral intake Continue oral sodium bicarb Follow-up as outpatient for CK D
[2022-05-16] MEDS: ATORVASTATIN 10 MG TAB PO SCH (13:54)
--- NOTE | 2022-05-16 14:25 | P.PN ---
Subjective Progress Note Date: 05/16/22 CHIEF COMPLAINT: Diarrhea HISTORY OF PRESENT ILLNESS: Patient lying in bed comfortably. He reports that the diarrhea has resolved. He is tolerating diet. He reports that he has not had diarrhea in 2 days. He does have a 3 week history of loose stools decreased appetite and weight loss. C. diff is negative. They have been unable to collect stool culture. Afebrile. Last WBC is 11.84 PHYSICAL EXAM: VITAL SIGNS: Reviewed. GENERAL: Well-developed in no acute distress. HEENT: No sclera icterus. Extraocular movements grossly intact. Moist buccal mucosa. Head is atraumatic, normocephalic. ABDOMEN: Soft. Nondistended. Nontender. NEUROLOGIC: Alert and oriented. Cranial nerves II through XII grossly intact. ASSESSMENT: 1. Diarrhea with anorexia and weight loss. Etiology unclear PLAN: -Continue regular diet -Try to collect stool culture if any further episodes of diarrhea -Continue supportive care -Further recommendations forthcoming per surgeon Physician Instructional Support Specialist note has been reviewed by physician. Signing provider agrees with the documented findings, assessment, and plan of care. I have personally seen and examined the patient, reviewed the [facility] /PAs history, exam and MDM and agree with the assessment and plan as written. Based on total visit time, I have performed more than 50% of the visit. As above: Patient feels better today. No further diarrhea. Previous co lonoscopy shows no evidence of colitis or significant abnormalities however we were unable to evaluate the proximal colon. He never had a barium enema performed. We'll order CT abdomen and pelvis to evaluate for any right-sided colon pathology and to evaluate the patient's complaints of bloating and anorexia. Objective - Vital Signs Vital signs: Vital Signs Temp 98 F 05/16/22 08:00 Pulse 77 05/16/22 08:00 Resp 16 05/16/22 08:00 BP 108/67 05/16/22 08:00 Pulse Ox 95 05/16/22 08:00 FiO2 Intake & Output 05/15/22 05/16/22 05/16/22 18:59 06:59 18:59 Intake Total 200 Output Total 500 Balance 200 -500 Intake: Intake, IV Titration 200 Amount Ampicillin-Sulbactam 3 gm 200 In Sodium Chloride 0.9% 100 ml @ 200 mls/hr IVPB Q6HR [facility] Rx#:[id number] Output: Urine 500 Other: Voiding Method Urinal # Voids 3 - Labs CBC & Chem 7: 05/15/22 04:45 05/15/22 04:45 Labs: Abnormal Lab Results - Last 24 Hours (Table) 05/15/22 05/15/22 05/16/22 Range/Units 17:09 20:17 07:27 POC Glucose (mg/dL) 149 H 136 H 143 H (70-110) mg/dL 05/16/22 Range/Units 11:54 POC Glucose (mg/dL) 175 H (70-110) mg/dL
[2022-05-16] MEDS ORDERED: BARIUM SULFATE 450 ML ORAL.SUSP BOTTLE PO PRN (14:40)
[2022-05-16] MEDS: RIVAROXABAN 20 MG TAB PO SCH (15:46)
[2022-05-16 17:13] LABS: Glucose,Whole Blood 204 mg/dL (70-110)
[2022-05-16] MEDS ORDERED: SENNOSIDES 8.6 MG TAB PO PRN (18:48)
--- NOTE | 2022-05-16 18:52 | P.PN ---
Subjective 76-year-old male presenting with weakness, diarrhea and poor appetite. No vomiting. No fever. No chest pain. No abdominal pain. Patient's symptoms have been present for the past 3 weeks. He has been trying Imodium and Pepto- Bismol without improvement in the diarrhea. He has at least one episode daily. Laboratory completed in ED reveals a decrease of 15.6, hemoglobin 13.9 and platelet count of 266, sodium 136, potassium 6.3, BUN/creatinine of 82/2.27 and blood glucose of 107 EKG Findings:: sinus tachycardia with prolonged MN interval, first-degree AV block rate of 103 QRS duration 89, QTC 372, no ST segment elevation 05/14/2022 Patient is seen and evaluated sitting up in bedside chair; discussed with nursing staff; reports increased pain and redness both lower extremities; patient has dressing on both lower extremity wounds which getting frequently saturated with foul-smelling discharge Vital signs are reviewed and remained stable Lab review shows B UN/creatinine of 52/1.8; nephrology on board; recommending to Hep-Lock IV fluids and encourage increased oral fluid intake; diuretics and Cozaar remain on hold; monitor renal function closely; patient has been placed on oral bicarbonate -- Plan to start patient on IV Zosyn for cellulitis lower extremity and infected wounds; ID is consulted for further recommendations -- Patient continues to complain of numerous diarrheal episodes; C. diff is negative; we will consult general surgery, Dr. Chavez, for further evaluation 05/15/2022 This is a pleasant 76 years old male who presents originally because of ongoing diarrhea for about 3 weeks. Since admission his diarrhea was stopped and he did not have a bowel movement over the last 2 days. He has some nausea vomiting but currently he is able to tolerate diet about 50- 100%. He ate about half of his breakfast meal. Also patient is complaining of from some hemorrhoids. Now he has evidence of cellulitis of right leg 05/16/2022 Patient acute kidney injury is improving, creatinine from yesterday 1.7, check labs tomorrow. Patient gastroenteritis this has resolved, no vomiting, no pain, now she is complaining of from constipation since admission, she was asked me to give her stool softeners, patient was started on Colace and senna. Surgery team on the case, follow-up computed tomography scan of the abdomen and pelvis. Continue with Unasyn for bilateral leg cellulitis, more on the right leg PT/OT: Home health care Objective - Vital Signs Vital signs: Vital Signs Temp 98 F 05/16/22 08:00 Pulse 77 05/16/22 08:00 Resp 16 05/16/22 08:00 BP 108/67 05/16/22 08:00 Pulse Ox 95 05/16/22 08:00 FiO2 Intake & Output 05/15/22 05/16/22 05/16/22 18:59 06:59 18:59 Intake Total 200 Output Total 500 Balance 200 -500 Intake: Intake, IV Titration 200 Amount Ampicillin-Sulbactam 3 gm 200 In Sodium Chloride 0.9% 100 ml @ 200 mls/hr IVPB Q6HR [facility] Rx#:[id number] Output: Urine 500 Other: Voiding Method Urinal # Voids 3 - Exam GENERAL: The patient is alert and oriented x3, not in any acute distress. Well developed, well nourished. HEENT: Pupils are round and equally reacting to light. EOMI. No scleral icterus. No conjunctival pallor. Normocephalic, atraumatic. No pharyngeal erythema. No thyromegaly. CARDIOVASCULAR: S1 and S2 present. No murmurs, rubs, or gallops. PULMONARY: Chest is clear to auscultation, no wheezing or crackles. ABDOMEN: Soft, nontender, nondistended, normoactive bowel sounds. No palpable organomegaly. MUSCULOSKELETAL: No joint swelling or deformity. -EXTREMITIES: No cyanosis, clubbing, or pedal edema. Right leg cellulitis NEUROLOGICAL: Gross neurological examination did not reveal any focal deficits. SKIN: No rashes. no petechiae. - Labs CBC & Chem 7: 05/15/22 04:45 05/15/22 04:45 Labs: Abnormal Lab Results - Last 24 Hours (Table) 05/15/22 05/15/22 05/15/22 Range/Units 11:48 17:09 20:17 POC Glucose (mg/dL) 157 H 149 H 136 H (70-110) mg/dL 05/16/22 Range/Units 07:27 POC Glucose (mg/dL) 143 H (70-110) mg/dL Assessment and Plan Assessment: Right leg cellulitis Acute kidney injury on chronic kidney disease, improving Chronic kidney disease stage II-III Chronic leukocytosis Gastroenteritis, most likely reactive, improving. 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 Continue same treatment. Continue with symptomatic treatment. Resume home medication. Monitor lytes and vitals. DVT and GI prophylaxis. Further recommendations as per clinical course of the patient DVT prophylaxis: Xarelto GI Prophylaxis: Ppi PT/OT: Pending Prognosis is guarded
[2022-05-16] MEDS: DOCUSATE 100 MG CAP PO SCH (18:55)
--- NOTE | 2022-05-16 21:20 | CT ---
EXAMINATION TYPE: CT abdomen pelvis wo con CT DLP: 1924 mGycm, Automated exposure control for dose reduction was used. DATE OF EXAM: 05/16/2022 8:34 PM COMPARISON: CT abdomen pelvis most recent from the 2011. CLINICAL INDICATION:Male, 76 years old with history of Abdominal pain; TECHNIQUE: Axial CT of the abdomen and pelvis. Sagittal and coronal reformats were created on a [email or web address] workstation. Contrast used: None Oral contrast used: with Oral Contrast FINDINGS: LOWER CHEST: Aortic valve calcification along with coronary artery atherosclerosis. Gynecomastia garza ges are seen bilaterally. ABDOMEN LIVER: Unremarkable GALLBLADDER AND BILE DUCTS: The gallbladder is surgically absent. PANCREAS: Lipomatous hypertrophy changes SPLEEN: Small splenule is present. ADRENAL GLANDS: Unremarkable. KIDNEYS AND URETERS: No evidence of hydronephrosis or renal calculus. The ureters are unremarkable. PELVIS BLADDER: Unremarkable REPRODUCTIVE: Unremarkable. ABDOMEN & PELVIS STOMACH AND BOWEL: No evidence of bowel obstruction. PERITONEUM: No evidence of pneumoperitoneum or free fluid. VASCULATURE: No evidence of aortic aneurysm. IVC filter in place. Serpiginous left periaortic vascula r structures along with hilar vascular structures along the superficial soft tissues both anterior to the right and posterior left back. Findings were seen back in 2013. MUSCULOSKELETAL: No acute osseous abnormalities, multilevel disc degeneration changes throughout the spine. Multilevel disc bulging and facet joint arthropathy. LYMPH NODES: Scattered lymph nodes which are enlarged left external iliac measuring up to 11 mm in sh ort axis . Additional bilateral inguinal lymph nodes which appear enlarged but also adjacent to some dilated vessels. Findings similar back to iron 2012. SOFT TISSUE/ABDOMINAL WALL: Left fat-containing umbilical hernia. IMPRESSION: 1. No evidence for acute intra-abdominal process. 2. Redemonstration from 2013 of dilated tortuous vessels within the retroperitoneum and along the colón perficial vessels of the abdomen and back. With scattered prominent borderline enlarged lymph nodes l ymph nodes. Given the tortuosity of the vessels consideration for some degree occlusion of the inferi or vena cava which contains IVC filters should be considered which would be chronic given findings a mixture 2012.
[2022-05-16 21:21] LABS: Glucose,Whole Blood 142 mg/dL (70-110)
[2022-05-16] MEDS: MONTELUKAST 10 MG TAB PO SCH (21:32)
[2022-05-16] MEDS: PANTOPRAZOLE 40 MG TABLET PO SCH (21:32)
[2022-05-16] MEDS: ACETAMINOPHEN TAB 325 MG TAB PO PRN (23:54)
[2022-05-17] MEDS: LEVOTHYROXINE 100 MCG TAB PO SCH (05:42)
[2022-05-17] MEDS: AMPICILLIN-SULBACTAM 3 GM in SODIUM CHLORIDE 0.9% 100 ML IVPB SCH ×3 (05:42→17:35)
[2022-05-17 07:06] LABS: Glucose,Whole Blood 132 mg/dL (70-110)
[2022-05-17] MEDS: INSULIN ASPART (NovoLOG) 100 UNIT/ML VIAL SQ SCH ×4 (07:25→21:40)
[2022-05-17] MEDS: SODIUM BICARBONATE TAB 650 MG TAB PO SCH ×2 (09:25→21:40)
[2022-05-17] MEDS: DOCUSATE 100 MG CAP PO SCH ×2 (09:25→21:40)
[2022-05-17] MEDS: DILTIAZEM CD 240 MG CAP.ER.24H PO SCH (09:25)
[2022-05-17] MEDS: PIOGLITAZONE 15 MG TAB PO SCH (09:26)
[2022-05-17 10:29] LABS: Basophils # (A) 0.07 X 10*3/uL (0.00-0.10); Basophils % (A) 0.7 %; Eosinophils # (A) 0.48 X 10*3/uL (0.04-0.35); Eosinophils % (A) 4.8 %; HCT 33.6 % (39.6-50.0); HGB 10.7 g/dL (13.0-17.0); Lymphocytes # (A) 0.79 X 10*3/uL (0.90-5.00); MCH 28.5 pg (27.0-32.0); MCHC 31.8 g/dL (32.0-37.0); MCV 89.4 fL (80.0-97.0); Mean Platelet Volume 9.6 fL (9.5-12.2); Monocytes # (A) 0.72 X 10*3/uL (0.20-1.00); Monocytes % (A) 7.3 %; NRBC Per 100 WBC 0 /100 WBCS (0.0-0.0); Neutrophils # (A) 7.65 X 10*3/uL (1.80-7.70); Neutrophils % (A) 77.2 %; Platelet Count 234 X 10*3/uL (140-440); RBC 3.76 X 10*6/uL (4.40-5.60); WBC 9.91 X 10*3/uL (4.50-10.00)
--- NOTE | 2022-05-17 10:44 | P.GSCN ---
History of Present Illness Consult date: 05/17/22 Reason for Consult: Possible occlusion of IVC filter Requesting physician: Bayron E Sheet History of present illness: This is a 76-year-old pleasant male who presented to the emergency department on 05/12/2022 with complaints of diarrhea for 3 week duration. Patient denied any nausea or vomiting at that time. But was having diarrhea nonbloody 1-3 times a day. Patient was admitted with metabolic acidosis, acute kidney injury and hyperkalemia. All which are improving. He has been seen by general surgery for diarrhea and abdominal cramping. Last colonoscopy was 11/04/2018 and according to surgery spelled P were unable to advance beyond the transverse colon due to tortuosity. Patient continues to have some lower abdominal discomfort, diarrhea has improved. He underwent a CT of the abdomen and pelvis with oral contrast yesterday that showed no evidence of acute intra-abdominal process, but there was redemonstration from 2012 of dilated tortuous vessels within the retroperitoneum and along the superficial vessels of the abdomen and back. Scattered prominent borderline enlarged lymph nodes. 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 Vascular surgery was consulted for possible occluded IVC filter. 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 He states since his 20s he had a history of blood clots. He had been on Coumadin initially and had recurrent DVTs. He states that he had a [place] filter placed in 2001 or 2004 due to recurrent DVTs on Coumadin. He has since then been on Eliquis and now on Xarelto. He denies any history of GI bleed, he states that he had a history of ulcer in his 20s. Again at this time he is not having any acute abdominal pain, states he has some mild discomfort in his lower abdomen. He denies any shortness of breath, chest pain, fevers, chills, nausea or vomiting. Review of Systems A 14 point review systems was completed all pertinent positives and negatives as stated in the HPI. Past Medical History Past Medical History: Asthma, Blood Disorder, Cancer, Diabetes Mellitus, Deep Vein Thrombosis (DVT), GERD/Reflux, GI Bleed, Hyperlipidemia, Hypertension, Osteoarthritis (OA), Pneumonia, Pulmonary Embolus (PE), Thyroid Disorder Additional Past Medical History / Comment(s): occular migraines, SOB with activity, hx cellulitis x 5, clotting disorder-Factor V- Leiden, basal cell skin ca(folicular), heart murmur, kidney stones, edema rt leg, History of Any Multi-Drug Resistant Organisms: None Reported, MRSA Year Discovered:: 2012 MDRO Source:: bilateral legs Past Surgical History: Cholecystectomy, Hernia Repair, Tonsillectomy Additional Past Surgical History / Comment(s): 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 Father Family Medical History: No Reported History Additional Family Medical History / Comment(s): age 72. Medications and Allergies Home Medications Medication Instructions Recorded Confirmed Type Omeprazole [PriLOSEC] 20 mg PO HS 12/29/13 05/12/22 History Atorvastatin [Lipitor] 10 mg PO PC-LUNCH 10/04/17 05/12/22 History Levothyroxine Sodium [Synthroid] 200 mcg PO DAILY 10/20/19 05/12/22 History Montelukast Sodium [Singulair] 10 mg PO HS 10/20/19 05/12/22 History Spironolactone 50 mg PO DAILY 10/20/19 05/12/22 History Albuterol Sulfate [Ventolin HFA] 2 puff INHALATION RT-Q4H PRN 01/06/20 05/12/22 History Testosterone Cypionate 200 mg IM Q14D 03/31/20 05/12/22 History [Depo-Testosterone] tiZANidine HCL [Zanaflex] 4 mg PO TID PRN 03/31/20 05/12/22 History Triamterene-Hctz 37.5-25Mg 1 cap PO DAILY 05/24/20 05/12/22 History [Dyazide 37.5-25 Capsule] Rivaroxaban [Xarelto] 20 mg PO DAILY@1600 05/03/21 05/12/22 History Losartan [Cozaar] 50 mg PO HS 05/12/22 05/12/22 History Pioglitazone [Actos] 15 mg PO DAILY 05/12/22 05/12/22 History dilTIAZem HCL [dilTIAZem JGP31Pe 240 mg PO DAILY 05/12/22 05/12/22 History ER (CD)] Allergies Allergy/AdvReac Type Severity Reaction Status Date / Time Iodinated Contrast Media Allergy Anaphylaxis Verified 05/12/22 07:10 iodine Allergy Anaphylaxis Verified 05/12/22 07:10 latex Allergy see comment Verified 05/12/22 07:10 shellfish derived Allergy Anaphylaxis Verified 05/12/22 07:10 shrimp Allergy Anaphylaxis Verified 05/12/22 07:10 tuna oil Allergy Unknown Verified 05/12/22 07:10 codeine AdvReac Rapid Verified 05/12/22 07:10 Heart Rate lisinopril AdvReac Cough Verified 05/12/22 07:10 Surgical - Exam Vital Signs Temp Pulse Resp BP Pulse Ox 97.8 F 104 H 22 114/64 95 05/11/22 18:46 05/11/22 18:46 05/11/22 18:46 05/11/22 18:46 05/11/22 18:46 General appearance: The patient is alert, oriented, appears in no acute distress. Morbidly obese. HET: Head is normocephalic and atraumatic. Neck: Supple. Heart: S1 S2. Regular rate and rhythm. Lungs: Clear to auscultation bilaterally. Abdomen: Soft, morbidly obese, nontender, nondistended. Extremities: Bilateral lower extremity edema. Neurological: Alert and oriented. Results - Labs 05/17/22 06:25 05/17/22 06:25 Abnormal Lab Results - Last 24 Hours (Table) 05/16/22 05/16/22 05/16/22 Range/Units 11:54 17:12 21:18 POC Glucose (mg/dL) 175 H 204 H 142 H (70-110) mg/dL 05/17/22 Range/Units 07:05 POC Glucose (mg/dL) 132 H (70-110) mg/dL - Imaging CT scan - abdomen: report reviewed, image reviewed Assessment and Plan Assessment: 1. 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 History of multiple DVT/pulmonary embolism with filter placement sometime between 1546-1780 on Xarelto 3. Factor V Leiden clotting disorder 4. Diarrhea, improving 5. Morbid obesity Plan: 1. Continue Xarelto 2. Continue medical management 3. Appears all chronic, unlikely causing any of the patient's symptoms. No indication for any vascular surgical intervention. 4. Elevate lower extremities, apply compression stockings. Thank you for this consultation. The impression and plan of care has been dictated as directed. I performed a history and examination of this patient, discussed the same with the dictator. I agree with the dictator's note ,documented as a scribe. Any additional findings or plans will be noted.
[2022-05-17 10:57] LABS: African American GFR (CKD) 44.1 (60.0-200.0); BUN/Creat Ratio 24.8 Ratio (12.00-20.00); Blood Urea Nitrogen 42.9 mg/dL (9.0-27.0); Calcium 8.1 mg/dL (8.7-10.3); Carbon Dioxide 24.7 mmol/L (20.0-27.5); Magnesium 1.8 mg/dL (1.5-2.4); Non-African American GFR(CKD) 38.1 (60.0-200.0); Potassium 3.8 mmol/L (3.5-5.5)
--- NOTE | 2022-05-17 11:08 | P.PN ---
Subjective Progress Note Date: 05/17/22 Principal diagnosis: Diarrhea Patient doing better today. Still having mild lower abdominal discomfort. He did have a semi-formed bowel movement yesterday. Apparently stool was obtained for culture but per the patient the specimen was lost. He did have his CAT scan abdomen and pelvis which shows no evidence of bowel obstruction or inflammatory changes involving the small or large bowel. Patient does have possible chronic occlusion of his IVC at his previous ulcer site. Patient says his appetite is still somewhat poor. Objective - Vital Signs Vital signs: Vital Signs Temp 98.6 F 05/17/22 08:00 Pulse 75 05/17/22 08:00 Resp 17 05/17/22 08:00 BP 94/41 05/17/22 08:00 Pulse Ox 94 L 05/17/22 08:00 FiO2 Intake & Output 05/16/22 05/17/22 05/17/22 18:59 06:59 18:59 Intake Total 100 Output Total 700 Balance 100 -700 Intake: Intake, IV Titration 100 Amount Ampicillin-Sulbactam 3 gm 100 In Sodium Chloride 0.9% 100 ml @ 200 mls/hr IVPB Q6HR [facility] Rx#:[id number] Output: Urine 700 Other: Voiding Method Toilet Toilet Urinal # Voids 2 - Exam Abdomen: Soft, distended, no appreciable tenderness - Labs CBC & Chem 7: 05/17/22 06:25 05/17/22 06:25 Labs: Abnormal Lab Results - Last 24 Hours (Table) 05/16/22 05/16/22 05/16/22 Range/Units 11:54 17:12 21:18 RBC (4.40-5.60) X 10*6/uL Hgb (13.0-17.0) g/dL Hct (39.6-50.0) % MCHC (32.0-37.0) g/dL RDW (11.5-14.5) % Immature Gran # (0.00-0.04) X 10*3/uL Lymphocytes # (0.90-5.00) X 10*3/uL Eosinophils # (0.04-0.35) X 10*3/uL BUN (9.0-27.0) mg/dL Creatinine (0.6-1.5) mg/dL Est GFR (CKD-EPI)AfAm (60.0-200.0) Est GFR (CKD-EPI)NonAf (60.0-200.0) BUN/Creatinine Ratio (12.00-20.00) Ratio Glucose (70-110) mg/dL POC Glucose (mg/dL) 175 H 204 H 142 H (70-110) mg/dL Calcium (8.7-10.3) mg/dL 05/17/22 05/17/22 05/17/22 Range/Units 06:25 06:25 07:05 RBC 3.76 L (4.40-5.60) X 10*6/uL Hgb 10.7 L (13.0-17.0) g/dL Hct 33.6 L (39.6-50.0) % MCHC 31.8 L (32.0-37.0) g/dL RDW 18.0 H (11.5-14.5) % Immature Gran # 0.20 H (0.00-0.04) X 10*3/uL Lymphocytes # 0.79 L (0.90-5.00) X 10*3/uL Eosinophils # 0.48 H (0.04-0.35) X 10*3/uL BUN 42.9 H (9.0-27.0) mg/dL Creatinine 1.7 H (0.6-1.5) mg/dL Est GFR (CKD-EPI)AfAm 44.1 L (60.0-200.0) Est GFR (CKD-EPI)NonAf 38.1 L (60.0-200.0) BUN/Creatinine Ratio 24.80 H (12.00-20.00) Ratio Glucose 137 H (70-110) mg/dL POC Glucose (mg/dL) 132 H (70-110) mg/dL Calcium 8.1 L (8.7-10.3) mg/dL Assessment and Plan (1) Diarrhea Narrative/Plan: 76-year-old male presenting with diarrhea and anorexia. Clinically patient seems improved as it pertains to his GI complaints. Patient on his last colonoscopy has a long tortuous colon and we were unable to reach the cecum. The patient had a CAT scan of the abdomen and pelvis to evaluate the bowel and no definite abnormalities are noted. Continue regular diet. Continue to monitor bowel function. No plans for endoscopy at this time. Patient can follow-up in the outpatient setting discuss further GI workup. We'll sign off at this point. Please reconsult if needed. Current Visit: Yes Status: Acute Code(s): R19.7 - DIARRHEA, UNSPECIFIED SNOMED Code(s): 86277216
[2022-05-17 11:17] LABS: Glucose,Whole Blood 159 mg/dL (70-110)
--- NOTE | 2022-05-17 11:26 | P.PN ---
Subjective 76-year-old male presenting with weakness, diarrhea and poor appetite. No vomiting. No fever. No chest pain. No abdominal pain. Patient's symptoms have been present for the past 3 weeks. He has been trying Imodium and Pepto- Bismol without improvement in the diarrhea. He has at least one episode daily. Laboratory completed in ED reveals a decrease of 15.6, hemoglobin 13.9 and platelet count of 266, sodium 136, potassium 6.3, BUN/creatinine of 82/2.27 and blood glucose of 107 EKG Findings:: sinus tachycardia with prolonged [place] interval, first-degree AV block rate of 103 QRS duration 89, QTC 372, no ST segment elevation 05/14/2022 Patient is seen and evaluated sitting up in bedside chair; discussed with nursing staff; reports increased pain and redness both lower extremities; patient has dressing on both lower extremity wounds which getting frequently saturated with foul-smelling discharge Vital signs are reviewed and remained stable Lab review shows B UN/creatinine of 52/1.8; nephrology on board; recommending to Hep-Lock IV fluids and encourage increased oral fluid intake; diuretics and Cozaar remain on hold; monitor renal function closely; patient has been placed on oral bicarbonate -- Plan to start patient on IV Zosyn for cellulitis lower extremity and infected wounds; ID is consulted for further recommendations -- Patient continues to complain of numerous diarrheal episodes; C. diff is negative; we will consult general surgery, Dr. Chavez, for further evaluation 05/15/2022 This is a pleasant 76 years old male who presents originally because of ongoing diarrhea for about 3 weeks. Since admission his diarrhea was stopped and he did not have a bowel movement over the last 2 days. He has some nausea vomiting but currently he is able to tolerate diet about 50- 100%. He ate about half of his breakfast meal. Also patient is complaining of from some hemorrhoids. Now he has evidence of cellulitis of right leg 05/16/2022 Patient acute kidney injury is improving, creatinine from yesterday 1.7, check labs tomorrow. Patient gastroenteritis this has resolved, no vomiting, no pain, now she is complaining of from constipation since admission, she was asked me to give her stool softeners, patient was started on Colace and senna. Surgery team on the case, follow-up computed tomography scan of the abdomen and pelvis. Continue with Unasyn for bilateral leg cellulitis, more on the right leg PT/OT: Home health care 05/17/2012 Patient looks clinically improving and getting more stable., He still on IV antibiotics for his bilateral cellulitis which looks stable, his leukocytosis is improved today 9.9. His acute kidney injury is stable and creatinine 1.7 at baseline. Nephrology team of the case. Surgical team signed off the case. CT of the abdomen on pelvis showing no acute abnormality. He has tortuosity of the blood vessels with suspected occlusion of the IVC filter. This looks Suresh problem but because of concern regarding compliance with posterior surgery team to evaluate him today. Patient looks improving and possible discharge in 24-48 hours Objective - Vital Signs Vital signs: Vital Signs Temp 98.6 F 05/17/22 08:00 Pulse 75 05/17/22 08:00 Resp 17 05/17/22 08:00 BP 94/41 05/17/22 08:00 Pulse Ox 94 L 05/17/22 08:00 FiO2 Intake & Output 05/16/22 05/17/22 05/17/22 18:59 06:59 18:59 Intake Total 100 Output Total 700 Balance 100 -700 Intake: Intake, IV Titration 100 Amount Ampicillin-Sulbactam 3 gm 100 In Sodium Chloride 0.9% 100 ml @ 200 mls/hr IVPB Q6HR [facility] Rx#:[id number] Output: Urine 700 Other: Voiding Method Toilet Toilet Urinal # Voids 2 - Exam GENERAL: The patient is alert and oriented x3, not in any acute distress. Well developed, well nourished. HEENT: Pupils are round and equally reacting to light. EOMI. No scleral icterus. No conjunctival pallor. Normocephalic, atraumatic. No pharyngeal erythema. No thyromegaly. CARDIOVASCULAR: S1 and S2 present. No murmurs, rubs, or gallops. PULMONARY: Chest is clear to auscultation, no wheezing or crackles. ABDOMEN: Soft, nontender, nondistended, normoactive bowel sounds. No palpable o rganomegaly. MUSCULOSKELETAL: No joint swelling or deformity. -EXTREMITIES: No cyanosis, clubbing, or pedal edema. Right leg cellulitis NEUROLOGICAL: Gross neurological examination did not reveal any focal deficits. SKIN: No rashes. no petechiae. - Labs CBC & Chem 7: 05/17/22 06:25 05/17/22 06:25 Labs: Abnormal Lab Results - Last 24 Hours (Table) 05/16/22 05/16/22 05/16/22 Range/Units 11:54 17:12 21:18 RBC (4.40-5.60) X 10*6/uL Hgb (13.0-17.0) g/dL Hct (39.6-50.0) % MCHC (32.0-37.0) g/dL RDW (11.5-14.5) % Immature Gran # (0.00-0.04) X 10*3/uL Lymphocytes # (0.90-5.00) X 10*3/uL Eosinophils # (0.04-0.35) X 10*3/uL BUN (9.0-27.0) mg/dL Creatinine (0.6-1.5) mg/dL Est GFR (CKD-EPI)AfAm (60.0-200.0) Est GFR (CKD-EPI)NonAf (60.0-200.0) BUN/Creatinine Ratio (12.00-20.00) Ratio Glucose (70-110) mg/dL POC Glucose (mg/dL) 175 H 204 H 142 H (70-110) mg/dL Calcium (8.7-10.3) mg/dL 05/17/22 05/17/22 05/17/22 Range/Units 06:25 06:25 07:05 RBC 3.76 L (4.40-5.60) X 10*6/uL Hgb 10.7 L (13.0-17.0) g/dL Hct 33.6 L (39.6-50.0) % MCHC 31.8 L (32.0-37.0) g/dL RDW 18.0 H (11.5-14.5) % Immature Gran # 0.20 H (0.00-0.04) X 10*3/uL Lymphocytes # 0.79 L (0.90-5.00) X 10*3/uL Eosinophils # 0.48 H (0.04-0.35) X 10*3/uL BUN 42.9 H (9.0-27.0) mg/dL Creatinine 1.7 H (0.6-1.5) mg/dL Est GFR (CKD-EPI)AfAm 44.1 L (60.0-200.0) Est GFR (CKD-EPI)NonAf 38.1 L (60.0-200.0) BUN/Creatinine Ratio 24.80 H (12.00-20.00) Ratio Glucose 137 H (70-110) mg/dL POC Glucose (mg/dL) 132 H (70-110) mg/dL Calcium 8.1 L (8.7-10.3) mg/dL 05/17/22 Range/Units 11:16 RBC (4.40-5.60) X 10*6/uL Hgb (13.0-17.0) g/dL Hct (39.6-50.0) % MCHC (32.0-37.0) g/dL RDW (11.5-14.5) % Immature Gran # (0.00-0.04) X 10*3/uL Lymphocytes # (0.90-5.00) X 10*3/uL Eosinophils # (0.04-0.35) X 10*3/uL BUN (9.0-27.0) mg/dL Creatinine (0.6-1.5) mg/dL Est GFR (CKD-EPI)AfAm (60.0-200.0) Est GFR (CKD-EPI)NonAf (60.0-200.0) BUN/Creatinine Ratio (12.00-20.00) Ratio Glucose (70-110) mg/dL POC Glucose (mg/dL) 159 H (70-110) mg/dL Calcium (8.7-10.3) mg/dL Assessment and Plan Assessment: Right leg cellulitis Acute kidney injury on chronic kidney disease, improving chronic IVC filter occlusion, chronic Chronic kidney disease stage II-III Chronic leukocytosis Gastroenteritis, most likely reactive, improving. 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 Continue same treatment. Continue with symptomatic treatment. Resume home medication. Monitor lytes and vitals. DVT and GI prophylaxis. Further recommendations as per clinical course of the patient DVT prophylaxis: Xarelto GI Prophylaxis: Ppi PT/OT: Pending Prognosis is guarded
[2022-05-17] MEDS: ATORVASTATIN 10 MG TAB PO SCH (12:58)
[2022-05-17] MEDS: RIVAROXABAN 20 MG TAB PO SCH (16:02)
[2022-05-17 17:20] LABS: Glucose,Whole Blood 138 mg/dL (70-110)
--- NOTE | 2022-05-17 17:30 | P.PN ---
Subjective patient is seen in follow-up for acute kidney injury. Renal function is stable with creatinine at 1.7 . Admits to good urine output. No vomiting. Does have loose bowel movements. no vomiting. Significant edema of lower extremities persists Objective - Vital Signs Vital signs: Vital Signs Temp 97.9 F 05/17/22 14:00 Pulse 67 05/17/22 14:00 Resp 16 05/17/22 14:00 BP 136/68 05/17/22 14:00 Pulse Ox 97 05/17/22 14:00 FiO2 Intake & Output 05/16/22 05/17/22 05/17/22 18:59 06:59 18:59 Intake Total 100 Output Total 700 Balance 100 -700 Intake: Intake, IV Titration 100 Amount Ampicillin-Sulbactam 3 gm 100 In Sodium Chloride 0.9% 100 ml @ 200 mls/hr IVPB Q6HR [facility] Rx#:[id number] Output: Urine 700 Other: Voiding Method Toilet Toilet Urinal # Voids 2 - Exam Patient is awake, comfortable, not in any acute distress Alert oriented 3 Lungs are clear CVS S 1 and S2 [place] MAN exam grossly intact Examination lower extremity shows significant edema bilaterally, right worse than left. - Labs CBC & Chem 7: 05/17/22 06:25 05/17/22 06:25 Labs: Abnormal Lab Results - Last 24 Hours (Table) 05/16/22 05/17/22 05/17/22 Range/Units 21:18 06:25 06:25 RBC 3.76 L (4.40-5.60) X 10*6/uL Hgb 10.7 L (13.0-17.0) g/dL Hct 33.6 L (39.6-50.0) % MCHC 31.8 L (32.0-37.0) g/dL RDW 18.0 H (11.5-14.5) % Immature Gran # 0.20 H (0.00-0.04) X 10*3/uL Lymphocytes # 0.79 L (0.90-5.00) X 10*3/uL Eosinophils # 0.48 H (0.04-0.35) X 10*3/uL BUN 42.9 H (9.0-27.0) mg/dL Creatinine 1.7 H (0.6-1.5) mg/dL Est GFR (CKD-EPI)AfAm 44.1 L (60.0-200.0) Est GFR (CKD-EPI)NonAf 38.1 L (60.0-200.0) BUN/Creatinine Ratio 24.80 H (12.00-20.00) Ratio Glucose 137 H (70-110) mg/dL POC Glucose (mg/dL) 142 H (70-110) mg/dL Calcium 8.1 L (8.7-10.3) mg/dL 05/17/22 05/17/22 05/17/22 Range/Units 07:05 11:16 17:19 RBC (4.40-5.60) X 10*6/uL Hgb (13.0-17.0) g/dL Hct (39.6-50.0) % MCHC (32.0-37.0) g/dL RDW (11.5-14.5) % Immature Gran # (0.00-0.04) X 10*3/uL Lymphocytes # (0.90-5.00) X 10*3/uL Eosinophils # (0.04-0.35) X 10*3/uL BUN (9.0-27.0) mg/dL Creatinine (0.6-1.5) mg/dL Est GFR (CKD-EPI)AfAm (60.0-200.0) Est GFR (CKD-EPI)NonAf (60.0-200.0) BUN/Creatinine Ratio (12.00-20.00) Ratio Glucose (70-110) mg/dL POC Glucose (mg/dL) 132 H 159 H 138 H (70-110) mg/dL Calcium (8.7-10.3) mg/dL Assessment and Plan Assessment: 1. Acute kidney injury mostly prerenal secondary to hypovolemia from poor intake, diarrhea and further worsened with the use of diuretics and andangiotensin receptor holly. creatinine was 2.27 on admission and is stable at 1.7 today. creatinine in May 2021 was near 1.0 No hydronephrosis noted on kidney ultrasound. UA fairly benign. 2. Metabolic acidosis secondary to acute kidney injury and GI losses. improved with bicarbonate drip. 3. Hyperkalemia secondary to acute kidney injury, acidosis, triamterene, Aldactone and losartan. Improved with medical management. 4. Diabetes mellitus. 5. CK D NKF stage III a with baseline creatinine about 1.2-1.5 mg/dL. Etiology is nephrosclerosis. UA shows trace protein 6. Volume overoad Plan: Continue to hold angiotensin receptor blockers Encourage increased oral intake Continue oral sodium bicarb Add lasix Follow-up as outpatient for CK D
[2022-05-17 20:09] LABS: Glucose,Whole Blood 175 mg/dL (70-110)
[2022-05-17] MEDS: MONTELUKAST 10 MG TAB PO SCH (21:40)
[2022-05-17] MEDS: PANTOPRAZOLE 40 MG TABLET PO SCH (21:40)
[2022-05-17] MEDS: ACETAMINOPHEN TAB 325 MG TAB PO PRN (21:40)
[2022-05-18] MEDS: AMPICILLIN-SULBACTAM 3 GM in SODIUM CHLORIDE 0.9% 100 ML IVPB SCH ×4 (00:09→17:40)
[2022-05-18] MEDS: LEVOTHYROXINE 100 MCG TAB PO SCH (06:02)
[2022-05-18 06:59] LABS: Glucose,Whole Blood 149 mg/dL (70-110)
[2022-05-18] MEDS: INSULIN ASPART (NovoLOG) 100 UNIT/ML VIAL SQ SCH ×4 (08:00→20:35)
[2022-05-18] MEDS: DILTIAZEM CD 240 MG CAP.ER.24H PO SCH (10:34)
[2022-05-18] MEDS: SODIUM BICARBONATE TAB 650 MG TAB PO SCH ×2 (10:35→21:44)
[2022-05-18] MEDS: FUROSEMIDE 40 MG TAB PO SCH ×2 (10:35→15:51)
[2022-05-18] MEDS: DOCUSATE 100 MG CAP PO SCH (10:35)
[2022-05-18 11:19] LABS: Glucose,Whole Blood 165 mg/dL (70-110)
[2022-05-18] MEDS: PIOGLITAZONE 15 MG TAB PO SCH (12:00)
--- NOTE | 2022-05-18 12:42 | P.PN ---
Subjective patient is seen in follow-up for acute kidney injury. Renal function is stable with creatinine at 1.7 . Admits to good urine output. No vomiting. Does have loose bowel movements. no vomiting. Significant edema of lower extremities persists Started on oral Lasix Objective - Vital Signs Vital signs: Vital Signs Temp 98.3 F 05/18/22 08:00 Pulse 65 05/18/22 08:00 Resp 16 05/18/22 08:00 BP 135/69 05/18/22 08:00 Pulse Ox 94 L 05/18/22 08:00 FiO2 Intake & Output 05/17/22 05/18/22 05/18/22 18:59 06:59 18:59 Intake Total 460 Output Total 700 500 Balance -700 -40 Intake: Intake, IV Titration 100 Amount Ampicillin-Sulbactam 3 gm 100 In Sodium Chloride 0.9% 100 ml @ 200 mls/hr IVPB Q6HR [facility] Rx#:[id number] Oral 360 Output: Urine 700 500 Other: Voiding Method Toilet Toilet # Voids 3 1 # Bowel Movements 1 - Exam Patient is awake, comfortable, not in any acute distress Alert oriented 3 Lungs are clear CVS S 1 and S2 [employer] exam grossly intact Examination lower extremity shows significant edema bilaterally, right worse than left. - Labs CBC & Chem 7: 05/17/22 06:25 05/17/22 06:25 Labs: Abnormal Lab Results - Last 24 Hours (Table) 05/17/22 05/17/22 05/18/22 Range/Units 17:19 20:08 06:58 POC Glucose (mg/dL) 138 H 175 H 149 H (70-110) mg/dL 05/18/22 Range/Units 11:18 POC Glucose (mg/dL) 165 H (70-110) mg/dL Microbiology - Last 24 Hours (Table) 05/17/22 18:30 Stool Culture - Preliminary Stool Assessment and Plan Assessment: 1. Acute kidney injury mostly prerenal secondary to hypovolemia from poor intake, diarrhea and further worsened with the use of diuretics and andangiotensin receptor holly. creatinine was 2.27 on admission and is stable at 1.7 today. creatinine in May 2021 was near 1.0 No hydronephrosis noted on kidney ultrasound. UA fairly benign. 2. Metabolic acidosis secondary to acute kidney injury and GI losses. improved with bicarbonate drip. 3. Hyperkalemia secondary to acute kidney injury, acidosis, triamterene, Aldactone and losartan. Improved with medical management. 4. Diabetes mellitus. 5. CKD NKF stage III a with baseline creatinine about 1.2-1.5 mg/dL. Etiology is nephrosclerosis. UA shows trace protein 6. Volume overoad Plan: Continue to hold angiotensin receptor blockers Encourage increased oral intake Continue oral sodium bicarb Continue Lasix Follow-up as outpatient for CK D
[2022-05-18] MEDS: ATORVASTATIN 10 MG TAB PO SCH (13:23)
[2022-05-18 14:12] VITALS: BMI 45.4
[2022-05-18] MEDS: RIVAROXABAN 20 MG TAB PO SCH (15:51)
[2022-05-18] MEDS ORDERED: DOCUSATE 100 MG CAP PO PRN (16:21)
--- NOTE | 2022-05-18 16:27 | P.PN ---
Subjective 76-year-old male presenting with weakness, diarrhea and poor appetite. No vomiting. No fever. No chest pain. No abdominal pain. Patient's symptoms have been present for the past 3 weeks. He has been trying Imodium and Pepto- Bismol without improvement in the diarrhea. He has at least one episode daily. Laboratory completed in ED reveals a decrease of 15.6, hemoglobin 13.9 and platelet count of 266, sodium 136, potassium 6.3, BUN/creatinine of 82/2.27 and blood glucose of 107 EKG Findings:: sinus tachycardia with prolonged WA interval, first-degree AV block rate of 103 QRS duration 89, QTC 372, no ST segment elevation 05/14/2022 Patient is seen and evaluated sitting up in bedside chair; discussed with nursing staff; reports increased pain and redness both lower extremities; patient has dressing on both lower extremity wounds which getting frequently saturated with foul-smelling discharge Vital signs are reviewed and remained stable Lab review shows B UN/creatinine of 52/1.8; nephrology on board; recommending to Hep-Lock IV fluids and encourage increased oral fluid intake; diuretics and Cozaar remain on hold; monitor renal function closely; patient has been placed on oral bicarbonate -- Plan to start patient on IV Zosyn for cellulitis lower extremity and infected wounds; ID is consulted for further recommendations -- Patient continues to complain of numerous diarrheal episodes; C. diff is negative; we will consult general surgery, Dr. Chavez, for further evaluation 05/15/2022 This is a pleasant 76 years old male who presents originally because of ongoing diarrhea for about 3 weeks. Since admission his diarrhea was stopped and he did not have a bowel movement over the last 2 days. He has some nausea vomiting but currently he is able to tolerate diet about 50- 100%. He ate about half of his breakfast meal. Also patient is complaining of from some hemorrhoids. Now he has evidence of cellulitis of right leg 05/16/2022 Patient acute kidney injury is improving, creatinine from yesterday 1.7, check labs tomorrow. Patient gastroenteritis this has resolved, no vomiting, no pain, now she is complaining of from constipation since admission, she was asked me to give her stool softeners, patient was started on Colace and senna. Surgery team on the case, follow-up computed tomography scan of the abdomen and pelvis. Continue with Unasyn for bilateral leg cellulitis, more on the right leg PT/OT: Home health care 05/17/2012 Patient looks clinically improving and getting more stable., He still on IV antibiotics for his bilateral cellulitis which looks stable, his leukocytosis is improved today 9.9. His acute kidney injury is stable and creatinine 1.7 at baseline. Nephrology team of the case. Surgical team signed off the case. CT of the abdomen on pelvis showing no acute abnormality. He has tortuosity of the blood vessels with suspected occlusion of the IVC filter. This looks Suresh problem but because of concern regarding compliance with posterior surgery team to evaluate him today. Patient looks improving and possible discharge in 24-48 hours 05/18/2012 Patient is clinically doing better, he is awake and alert, he looks comfortable. He denies any chest pain or dyspnea. No new symptoms, He had frequent bowel movements. He is advised not to take Colace or senna as they are when necessary and he agrees. Patient remains on Unasyn Stool culture has been sent and is pending. Other than that leukocytosis improved but no labs from today. We are going to repeat labs in the morning. Patient still have significant ulcer of his right leg but no significant surrounding cellulitis, size of the ulcer is about 3 x 5" and there is a smaller one just below it. And have unhealthy base. No purulent discharge. Objective - Vital Signs Vital signs: Vital Signs Temp 97.1 F L 05/18/22 14:00 Pulse 86 05/18/22 14:00 Resp 20 05/18/22 14:00 BP 112/65 05/18/22 14:00 Pulse Ox 95 05/18/22 14:00 FiO2 Intake & Output 05/17/22 05/18/22 05/18/22 18:59 06:59 18:59 Intake Total 460 Output Total 700 500 900 Balance -700 -40 -900 Weight 151.953 kg Intake: Intake, IV Titration 100 Amount Ampicillin-Sulbactam 3 gm 100 In Sodium Chloride 0.9% 100 ml @ 200 mls/hr IVPB Q6HR [facility] Rx#:[id number] Oral 360 Output: Urine 700 500 900 Other: Voiding Method Toilet Toilet # Voids 3 1 # Bowel Movements 1 - Exam GENERAL: The patient is alert and oriented x3, not in any acute distress. Well developed, well nourished. HEENT: Pupils are round and equally reacting to light. EOMI. No scleral icterus. No conjunctival pallor. Normocephalic, atraumatic. No pharyngeal erythema. No thyromegaly. CARDIOVASCULAR: S1 and S2 present. No murmurs, rubs, or gallops. PULMONARY: Chest is clear to auscultation, no wheezing or crackles. ABDOMEN: Soft, nontender, nondistended, normoactive bowel sounds. No palpable organomegaly. MUSCULOSKELETAL: No joint swelling or deformity. -EXTREMITIES: No cyanosis, clubbing, or pedal edema. Right leg : ulcer of his right leg but no significant surrounding cellulitis, size of the ulcer is about 3 x 5" and there is a smaller one just below it. And have unhealthy base. No purulent discharge. NEUROLOGICAL: Gross neurological examination did not reveal any focal deficits. SKIN: No rashes. no petechiae. - Labs CBC & Chem 7: 05/17/22 06:25 05/17/22 06:25 Labs: Abnormal Lab Results - Last 24 Hours (Table) 05/17/22 05/17/22 05/18/22 Range/Units 17:19 20:08 06:58 POC Glucose (mg/dL) 138 H 175 H 149 H (70-110) mg/dL 05/18/22 Range/Units 11:18 POC Glucose (mg/dL) 165 H (70-110) mg/dL Microbiology - Last 24 Hours (Table) 05/17/22 18:30 Stool Culture - Preliminary Stool Assessment and Plan Assessment: Right leg cellulitis Acute kidney injury on chronic kidney disease, improving chronic IVC filter occlusion, chronic Chronic kidney disease stage II-III Chronic leukocytosis Gastroenteritis, most likely reactive, improving. 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 Continue same treatment. Continue with symptomatic treatment. Resume home medication. Monitor lytes and vitals. DVT and GI prophylaxis. Further recommendations as per clinical course of the patient DVT prophylaxis: Xarelto GI Prophylaxis: Ppi PT/OT: Pending Prognosis is guarded
[2022-05-18 16:33] LABS: Glucose,Whole Blood 185 mg/dL (70-110)
--- NOTE | 2022-05-18 17:11 | P.PN ---
Subjective Progress Note Date: 05/15/22 Principal diagnosis: Bilateral lower extremity cellulitis and diarrhea Patient is a 76-year male with a past medical history significant for bilateral extremity venous stasis ulcer and cellulitis presented to hospital with weakness and diarrhea also noticed to have bilateral lower extremity cellulitis and some venous stasis ulcer. On today's evaluation that is 05/15/2022, the patient is afebrile the patient is currently breathing comfortably patient denies having any chest pain or shortness of the cough but denies any abdominal pain and no further diarrhea Objective - Vital Signs Vital signs: Vital Signs Temp 98.4 F 05/15/22 08:00 Pulse 85 05/15/22 08:00 Resp 18 05/15/22 08:00 BP 112/67 05/15/22 08:00 Pulse Ox 95 05/15/22 08:00 FiO2 Intake & Output 05/14/22 05/15/22 05/15/22 18:59 06:59 18:59 Output Total 450 300 Balance -450 -300 Output: Urine 450 300 Other: Voiding Method Urinal - Exam GENERAL DESCRIPTION elderly male lying in bed, no distress. No tachypnea or accessory muscle of respiration use. LUNGS: Unlabored breathing. Decreased breath sound at the base HEART: S1, S2, regular rate and rhythm. No loud murmur ABDOMEN: Soft, no tenderness , guarding or rigidity, no organomegaly EXTREMITIES: Bilateral lower extremity currently dressed no drainage on the dressing. - Labs CBC & Chem 7: 05/17/22 06:25 05/17/22 06:25 Labs: Abnormal Lab Results - Last 24 Hours (Table) 05/14/22 05/14/22 05/15/22 Range/Units 16:28 21:15 04:45 WBC (4.50-10.00) X 10*3/uL RBC (4.40-5.60) X 10*6/uL Hgb (13.0-17.0) g/dL Hct (39.6-50.0) % RDW (11.5-14.5) % Immature Gran # (0.00-0.04) X 10*3/uL Neutrophils # (1.80-7.70) X 10*3/uL Lymphocytes # (0.90-5.00) X 10*3/uL Eosinophils # (0.04-0.35) X 10*3/uL BUN (9.0-27.0) mg/dL Creatinine (0.6-1.5) mg/dL Est GFR (CKD-EPI)AfAm (60.0-200.0) Est GFR (CKD-EPI)NonAf (60.0-200.0) BUN/Creatinine Ratio (12.00-20.00) Ratio Glucose (70-110) mg/dL POC Glucose (mg/dL) 135 H 161 H (70-110) mg/dL Hemoglobin A1c 6.7 H (0.0-6.0) % C-Reactive Protein (0.00-0.80) mg/dL Albumin (3.8-4.9) g/dL Globulin (1.6-3.3) g/dL Albumin/Globulin Ratio (1.60-3.17) g/dL TSH (0.350-5.500) uIU/mL 05/15/22 05/15/22 05/15/22 Range/Units 04:45 04:45 07:13 WBC 11.84 H (4.50-10.00) X 10*3/uL RBC 4.36 L (4.40-5.60) X 10*6/uL Hgb 12.5 L (13.0-17.0) g/dL Hct 38.9 L (39.6-50.0) % RDW 18.0 H (11.5-14.5) % Immature Gran # 0.30 H (0.00-0.04) X 10*3/uL Neutrophils # 9.58 H (1.80-7.70) X 10*3/uL Lymphocytes # 0.83 L (0.90-5.00) X 10*3/uL Eosinophils # 0.40 H (0.04-0.35) X 10*3/uL BUN 43.9 H (9.0-27.0) mg/dL Creatinine 1.7 H (0.6-1.5) mg/dL Est GFR (CKD-EPI)AfAm 45.0 L (60.0-200.0) Est GFR (CKD-EPI)NonAf 38.9 L (60.0-200.0) BUN/Creatinine Ratio 25.82 H (12.00-20.00) Ratio Glucose 171 H (70-110) mg/dL POC Glucose (mg/dL) 142 H (70-110) mg/dL Hemoglobin A1c (0.0-6.0) % C-Reactive Protein 3.70 H (0.00-0.80) mg/dL Albumin 3.6 L (3.8-4.9) g/dL Globulin 3.7 H (1.6-3.3) g/dL Albumin/Globulin Ratio 0.97 L (1.60-3.17) g/dL TSH 15.400 H (0.350-5.500) uIU/mL 05/15/22 Range/Units 11:48 WBC (4.50-10.00) X 10*3/uL RBC (4.40-5.60) X 10*6/uL Hgb (13.0-17.0) g/dL Hct (39.6-50.0) % RDW (11.5-14.5) % Immature Gran # (0.00-0.04) X 10*3/uL Neutrophils # (1.80-7.70) X 10*3/uL Lymphocytes # (0.90-5.00) X 10*3/uL Eosinophils # (0.04-0.35) X 10*3/uL BUN (9.0-27.0) mg/dL Creatinine (0.6-1.5) mg/dL Est GFR (CKD-EPI)AfAm (60.0-200.0) Est GFR (CKD-EPI)NonAf (60.0-200.0) BUN/Creatinine Ratio (12.00-20.00) Ratio Glucose (70-110) mg/dL POC Glucose (mg/dL) 157 H (70-110) mg/dL Hemoglobin A1c (0.0-6.0) % C-Reactive Protein (0.00-0.80) mg/dL Albumin (3.8-4.9) g/dL Globulin (1.6-3.3) g/dL Albumin/Globulin Ratio (1.60-3.17) g/dL TSH (0.350-5.500) uIU/mL Assessment and Plan (1) Cellulitis of left lower extremity Current Visit: No Status: Acute Code(s): L03.116 - CELLULITIS OF LEFT LOWER LIMB SNOMED Code(s): 420433706 (2) Cellulitis of right leg Current Visit: No Status: Acute Code(s): L03.115 - CELLULITIS OF RIGHT LOWER LIMB SNOMED Code(s): 988463309 Plan: 1patient with bilateral lower extremity ulcers and cellulitis especially in the right leg with a cellulitis more likely from gram-positive skin as well as likely gram-negative infection 2-patient presenting with diarrhea and abdominal pain , The patient abdominal symptom has resolved and culture has been negative. 3for his lower extremity cellulitis continue local wound care as ordered and IV Unasyn Time with Patient: Less than 30
--- NOTE | 2022-05-18 17:12 | P.PN ---
Subjective Progress Note Date: 05/16/22 Principal diagnosis: Bilateral lower extremity cellulitis and diarrhea Patient is a 76-year male with a past medical history significant for bilateral extremity venous stasis ulcer and cellulitis presented to hospital with weakness and diarrhea also noticed to have bilateral lower extremity cellulitis and some venous stasis ulcer. On today's evaluation that is 05/16/2022, Patient remains to be afebrile, the patient is breathing comfortably on room air patient denies having any chest pain or shortness of breath or cough no abdominal pain and no further diarrhea Objective - Vital Signs Vital signs: Vital Signs Temp 98 F 05/16/22 08:00 Pulse 77 05/16/22 08:00 Resp 16 05/16/22 08:00 BP 108/67 05/16/22 08:00 Pulse Ox 95 05/16/22 08:00 FiO2 Intake & Output 05/15/22 05/16/22 05/16/22 18:59 06:59 18:59 Intake Total 200 Output Total 500 Balance 200 -500 Intake: Intake, IV Titration 200 Amount Ampicillin-Sulbactam 3 gm 200 In Sodium Chloride 0.9% 100 ml @ 200 mls/hr IVPB Q6HR [facility] Rx#:[id number] Output: Urine 500 Other: Voiding Method Urinal # Voids 3 - Exam GENERAL DESCRIPTION elderly male lying in bed, no distress. No tachypnea or acce ssory muscle of respiration use. LUNGS: Unlabored breathing. Decreased breath sound at the base HEART: S1, S2, regular rate and rhythm. No loud murmur ABDOMEN: Soft, no tenderness , guarding or rigidity, no organomegaly EXTREMITIES: Bilateral lower extremity currently dressed no drainage on the d ressing. - Labs CBC & Chem 7: 05/17/22 06:25 05/17/22 06:25 Labs: Abnormal Lab Results - Last 24 Hours (Table) 05/15/22 05/15/22 05/16/22 Range/Units 17:09 20:17 07:27 POC Glucose (mg/dL) 149 H 136 H 143 H (70-110) mg/dL 05/16/22 Range/Units 11:54 POC Glucose (mg/dL) 175 H (70-110) mg/dL Assessment and Plan (1) Cellulitis of left lower extremity Current Visit: No Status: Acute Code(s): L03.116 - CELLULITIS OF LEFT LOWER LIMB SNOMED Code(s): 014279041 (2) Cellulitis of right leg Current Visit: No Status: Acute Code(s): L03.115 - CELLULITIS OF RIGHT LOWER LIMB SNOMED Code(s): 974348008 Plan: 1patient with bilateral lower extremity venous stasis ulcer and cellulitis right greater than the left patient to continue with Unasyn local wound care with Aquacel silver dressing and Zeus wrap for compression Time with Patient: Less than 30
--- NOTE | 2022-05-18 17:13 | P.PN ---
Subjective Progress Note Date: 05/17/22 Principal diagnosis: Bilateral lower extremity cellulitis and diarrhea Patient is a 76-year male with a past medical history significant for bilateral extremity venous stasis ulcer and cellulitis presented to hospital with weakness and diarrhea also noticed to have bilateral lower extremity cellulitis and some venous stasis ulcer. On today's evaluation that is 05/17/2022, The patient denies having any fever or any chills, the patient is breathing comfortably on room air denies any chest pain shortness of breath or cough no abdominal pain or any worsening pain to bi lateral lower extremity Objective - Vital Signs Vital signs: Vital Signs Temp 98.6 F 05/17/22 08:00 Pulse 75 05/17/22 08:00 Resp 17 05/17/22 08:00 BP 94/41 05/17/22 08:00 Pulse Ox 94 L 05/17/22 08:00 FiO2 Intake & Output 05/16/22 05/17/22 05/17/22 18:59 06:59 18:59 Intake Total 100 Output Total 700 Balance 100 -700 Intake: Intake, IV Titration 100 Amount Ampicillin-Sulbactam 3 gm 100 In Sodium Chloride 0.9% 100 ml @ 200 mls/hr IVPB Q6HR [facility] Rx#:[id number] Output: Urine 700 Other: Voiding Method Toilet Toilet Urinal # Voids 2 - Exam GENERAL DESCRIPTION elderly male lying in bed, no distress. No tachypnea or accessory muscle of respiration use. LUNGS: Unlabored breathing. Decreased breath sound at the base HEART: S1, S2, regular rate and rhythm. No loud murmur ABDOMEN: Soft, no tenderness , guarding or rigidity, no organomegaly EXTREMITIES: Bilateral lower extremity currently dressed no drainage on the dressing. - Labs CBC & Chem 7: 05/17/22 06:25 05/17/22 06:25 Labs: Abnormal Lab Results - Last 24 Hours (Table) 05/16/22 05/16/22 05/17/22 Range/Units 17:12 21:18 06:25 RBC 3.76 L (4.40-5.60) X 10*6/uL Hgb 10.7 L (13.0-17.0) g/dL Hct 33.6 L (39.6-50.0) % MCHC 31.8 L (32.0-37.0) g/dL RDW 18.0 H (11.5-14.5) % Immature Gran # 0.20 H (0.00-0.04) X 10*3/uL Lymphocytes # 0.79 L (0.90-5.00) X 10*3/uL Eosinophils # 0.48 H (0.04-0.35) X 10*3/uL BUN (9.0-27.0) mg/dL Creatinine (0.6-1.5) mg/dL Est GFR (CKD-EPI)AfAm (60.0-200.0) Est GFR (CKD-EPI)NonAf (60.0-200.0) BUN/Creatinine Ratio (12.00-20.00) Ratio Glucose (70-110) mg/dL POC Glucose (mg/dL) 204 H 142 H (70-110) mg/dL Calcium (8.7-10.3) mg/dL 05/17/22 05/17/22 05/17/22 Range/Units 06:25 07:05 11:16 RBC (4.40-5.60) X 10*6/uL Hgb (13.0-17.0) g/dL Hct (39.6-50.0) % MCHC (32.0-37.0) g/dL RDW (11.5-14.5) % Immature Gran # (0.00-0.04) X 10*3/uL Lymphocytes # (0.90-5.00) X 10*3/uL Eosinophils # (0.04-0.35) X 10*3/uL BUN 42.9 H (9.0-27.0) mg/dL Creatinine 1.7 H (0.6-1.5) mg/dL Est GFR (CKD-EPI)AfAm 44.1 L (60.0-200.0) Est GFR (CKD-EPI)NonAf 38.1 L (60.0-200.0) BUN/Creatinine Ratio 24.80 H (12.00-20.00) Ratio Glucose 137 H (70-110) mg/dL POC Glucose (mg/dL) 132 H 159 H (70-110) mg/dL Calcium 8.1 L (8.7-10.3) mg/dL Assessment and Plan (1) Cellulitis of left lower extremity Current Visit: No Status: Acute Code(s): L03.116 - CELLULITIS OF LEFT LOWER LIMB SNOMED Code(s): 333588997 (2) Cellulitis of right leg Current Visit: No Status: Acute Code(s): L03.115 - CELLULITIS OF RIGHT LOWER LIMB SNOMED Code(s): 950293782 Plan: 1patient with bilateral lower extremity venous stasis ulcer and cellulitis right greater than the left , Patient seem to have shown some clinical improvement continue with Unasyn and local wound care as ordered Time with Patient: Less than 30
--- NOTE | 2022-05-18 17:15 | P.PN ---
Subjective Progress Note Date: 05/18/22 Principal diagnosis: Bilateral lower extremity cellulitis and diarrhea Patient is a 76-year male with a past medical history significant for bilateral extremity venous stasis ulcer and cellulitis presented to hospital with weakness and diarrhea also noticed to have bilateral lower extremity cellulitis and some venous stasis ulcer. On today's evaluation that is 05/18/2022, The patient remains to be afebrile, the patient is breathing comfortably on room air the patient denies having any chest pain or shortness of breath or cough no abdominal pain no diarrhea denies pain to the lower extremity however still have significant wheezing per the nursing staff which is in the dressing earlier Objective - Vital Signs Vital signs: Vital Signs Temp 98.3 F 05/18/22 08:00 Pulse 65 05/18/22 12:49 Resp 16 05/18/22 08:00 BP 135/69 05/18/22 08:00 Pulse Ox 94 L 05/18/22 08:00 FiO2 Intake & Output 05/17/22 05/18/22 05/18/22 18:59 06:59 18:59 Intake Total 460 Output Total 700 500 Balance -700 -40 Intake: Intake, IV Titration 100 Amount Ampicillin-Sulbactam 3 gm 100 In Sodium Chloride 0.9% 100 ml @ 200 mls/hr IVPB Q6HR [facility] Rx#:[id number] Oral 360 Output: Urine 700 500 Other: Voiding Method Toilet Toilet # Voids 3 1 # Bowel Movements 1 - Exam GENERAL DESCRIPTION elderly male lying in bed, no distress. No tachypnea or accessory muscle of respiration use. LUNGS: Unlabored breathing. Decreased breath sound at the base HEART: S1, S2, regular rate and rhythm. No loud murmur ABDOMEN: Soft, no tenderness , guarding or rigidity, no organomegaly EXTREMITIES: Bilateral lower extremity currently dressed no drainage on the dressing. - Labs CBC & Chem 7: 05/17/22 06:25 05/17/22 06:25 Labs: Abnormal Lab Results - Last 24 Hours (Table) 05/17/22 05/17/22 05/18/22 Range/Units 17:19 20:08 06:58 POC Glucose (mg/dL) 138 H 175 H 149 H (70-110) mg/dL 05/18/22 Range/Units 11:18 POC Glucose (mg/dL) 165 H (70-110) mg/dL Microbiology - Last 24 Hours (Table) 05/17/22 18:30 Stool Culture - Preliminary Stool Assessment and Plan (1) Cellulitis of left lower extremity Current Visit: No Status: Acute Code(s): L03.116 - CELLULITIS OF LEFT LOWER LIMB SNOMED Code(s): 753220613 (2) Cellulitis of right leg Current Visit: No Status: Acute Code(s): L03.115 - CELLULITIS OF RIGHT LOWER LIMB SNOMED Code(s): 958225573 Plan: 1patient with bilateral lower extremity venous stasis ulcer and cellulitis right greater than the left 2-The patient has shown clinical improvement the patient is afebrile and the patient white count has normalized continue local wound care as ordered continue with Unasyn with the plan to finish therapy with oral Augmentin Time with Patient: Less than 30
[2022-05-18] MEDS ORDERED: TRIAMCINOLONE ACET 0.1% OINTMENT 15 GM TUBE TOPICAL PRN (18:19)
[2022-05-18 20:33] LABS: Glucose,Whole Blood 149 mg/dL (70-110)
[2022-05-18] MEDS: diphenhydrAMINE 25 MG CAP PO PRN (21:44)
[2022-05-18] MEDS: PANTOPRAZOLE 40 MG TABLET PO SCH (21:44)
[2022-05-18] MEDS: MONTELUKAST 10 MG TAB PO SCH (21:44)
[2022-05-19] MEDS: AMPICILLIN-SULBACTAM 3 GM in SODIUM CHLORIDE 0.9% 100 ML IVPB SCH ×3 (01:32→11:43)
[2022-05-19] MEDS: LEVOTHYROXINE 100 MCG TAB PO SCH (05:36)
[2022-05-19 07:29] LABS: Glucose,Whole Blood 151 mg/dL (70-110)
[2022-05-19] MEDS: INSULIN ASPART (NovoLOG) 100 UNIT/ML VIAL SQ SCH ×4 (08:06→21:25)
[2022-05-19] MEDS: PIOGLITAZONE 15 MG TAB PO SCH (08:06)
[2022-05-19] MEDS: SODIUM BICARBONATE TAB 650 MG TAB PO SCH ×2 (08:06→19:57)
[2022-05-19] MEDS: diphenhydrAMINE 25 MG CAP PO PRN (08:06)
[2022-05-19] MEDS: FUROSEMIDE 40 MG TAB PO SCH ×2 (08:06→12:05)
[2022-05-19] MEDS: DILTIAZEM CD 240 MG CAP.ER.24H PO SCH (08:06)
[2022-05-19] MEDS ORDERED: methylPREDNISolone SOD SUCCI 125 MG/2 ML VIAL IV STA (10:39)
[2022-05-19 10:51] LABS: Basophils # (A) 0.05 X 10*3/uL (0.00-0.10); Basophils % (A) 0.6 %; Eosinophils # (A) 0.52 X 10*3/uL (0.04-0.35); Eosinophils % (A) 5.8 %; HCT 33.4 % (39.6-50.0); HGB 10.7 g/dL (13.0-17.0); Immature Grans, Automated 1.5 %; Lymphocytes # (A) 0.84 X 10*3/uL (0.90-5.00); Lymphocytes % (A) 9.4 %; MCH 28.9 pg (27.0-32.0); MCV 90.3 fL (80.0-97.0); Mean Platelet Volume 9.7 fL (9.5-12.2); Monocytes # (A) 0.66 X 10*3/uL (0.20-1.00); Monocytes % (A) 7.4 %; NRBC Per 100 WBC 0 /100 WBCS (0.0-0.0); Neutrophils # (A) 6.75 X 10*3/uL (1.80-7.70); Neutrophils % (A) 75.3 %; Platelet Count 221 X 10*3/uL (140-440); RDW 17.8 % (11.5-14.5); WBC 8.95 X 10*3/uL (4.50-10.00)
[2022-05-19 11:08] LABS: African American GFR (CKD) 48.5 (60.0-200.0); Anion Gap 10.2 mmol/L (10.00-18.00); BUN/Creat Ratio 21.31 Ratio (12.00-20.00); Blood Urea Nitrogen 34.1 mg/dL (9.0-27.0); Calcium 8.2 mg/dL (8.7-10.3); Carbon Dioxide 27.8 mmol/L (20.0-27.5); Magnesium 1.8 mg/dL (1.5-2.4); Non-African American GFR(CKD) 41.8 (60.0-200.0); Potassium 4.7 mmol/L (3.5-5.5)
[2022-05-19 11:15] LABS: Glucose,Whole Blood 144 mg/dL (70-110)
--- NOTE | 2022-05-19 12:07 | P.PN ---
Subjective patient is seen in follow-up for acute kidney injury. Renal function is stable with creatinine at 1.7 . Admits to good urine output. No vomiting. Does have loose bowel movements. no vomiting. Significant edema of lower extremities persists Started on oral Lasix 2 days ago. Patient is complaining of rash which is presumed to be secondary to Lasix as there was no other new medications started. Patient denies any sulfa ALLERGIES. Objective - Vital Signs Vital signs: Vital Signs Temp 98.1 F 05/19/22 07:57 Pulse 80 05/19/22 07:57 Resp 18 05/19/22 07:57 BP 118/75 05/19/22 07:57 Pulse Ox 97 05/19/22 07:57 FiO2 Intake & Output 05/18/22 05/19/22 05/19/22 18:59 06:59 18:59 Intake Total 100 Output Total 900 1500 300 Balance -900 -1500 -200 Weight 151.953 kg Intake: Intake, IV Titration 100 Amount Ampicillin-Sulbactam 3 gm 100 In Sodium Chloride 0.9% 100 ml @ 200 mls/hr IVPB Q6HR [facility] Rx#:[id number] Output: Urine 900 1500 300 Other: Voiding Method Toilet Toilet # Voids 1 - Exam Patient is awake, comfortable, not in any acute distress Alert oriented 3 Lungs are clear CVS S 1 and S2 [employer] exam grossly intact Rash, maculopapular noted in the upper extremities and trunk Examination lower extremity shows significant edema bilaterally, right worse than left. - Labs CBC & Chem 7: 05/19/22 05:31 05/19/22 05:31 Labs: Abnormal Lab Results - Last 24 Hours (Table) 05/18/22 05/18/22 05/19/22 Range/Units 16:31 20:31 05:31 RBC 3.70 L (4.40-5.60) X 10*6/uL Hgb 10.7 L (13.0-17.0) g/dL Hct 33.4 L (39.6-50.0) % RDW 17.8 H (11.5-14.5) % Immature Gran # 0.13 H (0.00-0.04) X 10*3/uL Lymphocytes # 0.84 L (0.90-5.00) X 10*3/uL Eosinophils # 0.52 H (0.04-0.35) X 10*3/uL Carbon Dioxide (20.0-27.5) mmol/L BUN (9.0-27.0) mg/dL Creatinine (0.6-1.5) mg/dL Est GFR (CKD-EPI)AfAm (60.0-200.0) Est GFR (CKD-EPI)NonAf (60.0-200.0) BUN/Creatinine Ratio (12.00-20.00) Ratio Glucose (70-110) mg/dL POC Glucose (mg/dL) 185 H 149 H (70-110) mg/dL Calcium (8.7-10.3) mg/dL 05/19/22 05/19/22 05/19/22 Range/Units 05:31 07:28 11:13 RBC (4.40-5.60) X 10*6/uL Hgb (13.0-17.0) g/dL Hct (39.6-50.0) % RDW (11.5-14.5) % Immature Gran # (0.00-0.04) X 10*3/uL Lymphocytes # (0.90-5.00) X 10*3/uL Eosinophils # (0.04-0.35) X 10*3/uL Carbon Dioxide 27.8 H (20.0-27.5) mmol/L BUN 34.1 H (9.0-27.0) mg/dL Creatinine 1.6 H (0.6-1.5) mg/dL Est GFR (CKD-EPI)AfAm 48.5 L (60.0-200.0) Est GFR (CKD-EPI)NonAf 41.8 L (60.0-200.0) BUN/Creatinine Ratio 21.31 H (12.00-20.00) Ratio Glucose 148 H (70-110) mg/dL POC Glucose (mg/dL) 151 H 144 H (70-110) mg/dL Calcium 8.2 L (8.7-10.3) mg/dL Assessment and Plan Assessment: 1. Acute kidney injury mostly prerenal secondary to hypovolemia from poor intake, diarrhea and further worsened with the use of diuretics and andangiotensin receptor holly. creatinine was 2.27 on admission and is stable at 1.7 today. creatinine in May 2021 was near 1.0 No hydronephrosis noted on kidney ultrasound. UA fairly benign. 2. Metabolic acidosis secondary to acute kidney injury and GI losses. improved with bicarbonate drip. 3. Hyperkalemia secondary to acute kidney injury, acidosis, triamterene, Aldactone and losartan. Improved with medical management. 4. Diabetes mellitus. 5. CKD NKF stage III a with baseline creatinine about 1.2-1.5 mg/dL. Etiology is nephrosclerosis. UA shows trace protein 6. Volume overoad 7. Rash possibly related to Lasix. Plan: May hold Lasix for now. If there is improvement in rash and patient is actually ALLERGIC to Lasix and he may have underlying sulfa ALLERGY and will need etha crynic acid as a diuretic. Follow-up for CK D as outpatient in 1-2 weeks if discharged today.
[2022-05-19] MEDS: ATORVASTATIN 10 MG TAB PO SCH (13:07)
[2022-05-19] MEDS: RIVAROXABAN 20 MG TAB PO SCH (15:30)
[2022-05-19] MEDS: CEPHALEXIN 500 MG CAP PO SCH ×2 (15:30→19:57)
[2022-05-19 16:56] LABS: Glucose,Whole Blood 251 mg/dL (70-110)
--- NOTE | 2022-05-19 19:06 | P.PN ---
Subjective 76-year-old male presenting with weakness, diarrhea and poor appetite. No vomiting. No fever. No chest pain. No abdominal pain. Patient's symptoms have been present for the past 3 weeks. He has been trying Imodium and Pepto- Bismol without improvement in the diarrhea. He has at least one episode daily. Laboratory completed in ED reveals a decrease of 15.6, hemoglobin 13.9 and platelet count of 266, sodium 136, potassium 6.3, BUN/creatinine of 82/2.27 and blood glucose of 107 EKG Findings:: sinus tachycardia with prolonged OH interval, first-degree AV block rate of 103 QRS duration 89, QTC 372, no ST segment elevation 05/14/2022 Patient is seen and evaluated sitting up in bedside chair; discussed with nursing staff; reports increased pain and redness both lower extremities; patient has dressing on both lower extremity wounds which getting frequently saturated with foul-smelling discharge Vital signs are reviewed and remained stable Lab review shows B UN/creatinine of 52/1.8; nephrology on board; recommending to Hep-Lock IV fluids and encourage increased oral fluid intake; diuretics and Cozaar remain on hold; monitor renal function closely; patient has been placed on oral bicarbonate -- Plan to start patient on IV Zosyn for cellulitis lower extremity and infected wounds; ID is consulted for further recommendations -- Patient continues to complain of numerous diarrheal episodes; C. diff is negative; we will consult general surgery, Dr. Chavez, for further evaluation 05/15/2022 This is a pleasant 76 years old male who presents originally because of ongoing diarrhea for about 3 weeks. Since admission his diarrhea was stopped and he did not have a bowel movement over the last 2 days. He has some nausea vomiting but currently he is able to tolerate diet about 50- 100%. He ate about half of his breakfast meal. Also patient is complaining of from some hemorrhoids. Now he has evidence of cellulitis of right leg 05/16/2022 Patient acute kidney injury is improving, creatinine from yesterday 1.7, check labs tomorrow. Patient gastroenteritis this has resolved, no vomiting, no pain, now she is complaining of from constipation since admission, she was asked me to give her stool softeners, patient was started on Colace and senna. Surgery team on the case, follow-up computed tomography scan of the abdomen and pelvis. Continue with Unasyn for bilateral leg cellulitis, more on the right leg PT/OT: Home health care 05/17/2012 Patient looks clinically improving and getting more stable., He still on IV antibiotics for his bilateral cellulitis which looks stable, his leukocytosis is improved today 9.9. His acute kidney injury is stable and creatinine 1.7 at baseline. Nephrology team of the case. Surgical team signed off the case. CT of the abdomen on pelvis showing no acute abnormality. He has tortuosity of the blood vessels with suspected occlusion of the IVC filter. This looks Suresh problem but because of concern regarding compliance with posterior surgery team to evaluate him today. Patient looks improving and possible discharge in 24-48 hours 05/18/2012 Patient is clinically doing better, he is awake and alert, he looks comfortable. He denies any chest pain or dyspnea. No new symptoms, He had frequent bowel movements. He is advised not to take Colace or senna as they are when necessary and he agrees. Patient remains on Unasyn Stool culture has been sent and is pending. Other than that leukocytosis improved but no labs from today. We are going to repeat labs in the morning. Patient still have significant ulcer of his right leg but no significant surrounding cellulitis, size of the ulcer is about 3 x 5" and there is a smaller one just below it. And have unhealthy base. No purulent discharge. 05/19/2022 Patient infection is improving and he is having bilateral leg edema. Patient was doing well on Unasyn. Yesterday it was started on IV Lasix. Today he developed transient both upper extremities and abdomen. Suspected due to the Lasix. Although patient states that he took Lasix long time ago. Also there is possibility could be from antibiotic but less likely. It was changed to Keflex anyway and we are going to monitor the patient for another 24 hours for any further rash or worsening. Patient has no mild swelling, no dyspnea or wheezing. No hypertension. And he received a one-time dose of IV Solu-Medrol 60 mg. Patient instructed to avoid Lasix. Possible discharge in 24-48 hours. Patient refuses to go to rehab per staff. Patient will be discharged home with home health care. Objective - Vital Signs Vital signs: Vital Signs Temp 98.5 F 05/19/22 14:00 Pulse 61 05/19/22 14:00 Resp 16 05/19/22 14:00 BP 124/76 05/19/22 14:00 Pulse Ox 97 05/19/22 14:00 FiO2 Intake & Output 05/19/22 05/19/22 05/20/22 06:59 18:59 06:59 Intake Total 100 Output Total 1500 300 Balance -1500 -200 Intake: Intake, IV Titration 100 Amount Ampicillin-Sulbactam 3 gm 100 In Sodium Chloride 0.9% 100 ml @ 200 mls/hr IVPB Q6HR [facility] Rx#:[id number] Output: Urine 1500 300 Other: Voiding Method Toilet - Exam GENERAL: The patient is alert and oriented x3, not in any acute distress. Well developed, well nourished. HEENT: Pupils are round and equally reacting to light. EOMI. No scleral icterus. No conjunctival pallor. Normocephalic, atraumatic. No pharyngeal erythema. No thyromegaly. CARDIOVASCULAR: S1 and S2 present. No murmurs, rubs, or gallops. PULMONARY: Chest is clear to auscultation, no wheezing or crackles. ABDOMEN: Soft, nontender, nondistended, normoactive bowel sounds. No palpable organomegaly. MUSCULOSKELETAL: No joint swelling or deformity. -EXTREMITIES: No cyanosis, clubbing, or pedal edema. Right leg : ulcer of his right leg but no significant surrounding cellulitis, size of the ulcer is about 3 x 5" and there is a smaller one just below it. And have unhealthy base. No purulent discharge. NEUROLOGICAL: Gross neurological examination did not reveal any focal deficits. SKIN: No rashes. no petechiae. - Labs CBC & Chem 7: 05/19/22 05:31 05/19/22 05:31 Labs: Abnormal Lab Results - Last 24 Hours (Table) 05/18/22 05/19/22 05/19/22 Range/Units 20:31 05:31 05:31 RBC 3.70 L (4.40-5.60) X 10*6/uL Hgb 10.7 L (13.0-17.0) g/dL Hct 33.4 L (39.6-50.0) % RDW 17.8 H (11.5-14.5) % Immature Gran # 0.13 H (0.00-0.04) X 10*3/uL Lymphocytes # 0.84 L (0.90-5.00) X 10*3/uL Eosinophils # 0.52 H (0.04-0.35) X 10*3/uL Carbon Dioxide 27.8 H (20.0-27.5) mmol/L BUN 34.1 H (9.0-27.0) mg/dL Creatinine 1.6 H (0.6-1.5) mg/dL Est GFR (CKD-EPI)AfAm 48.5 L (60.0-200.0) Est GFR (CKD-EPI)NonAf 41.8 L (60.0-200.0) BUN/Creatinine Ratio 21.31 H (12.00-20.00) Ratio Glucose 148 H (70-110) mg/dL POC Glucose (mg/dL) 149 H (70-110) mg/dL Calcium 8.2 L (8.7-10.3) mg/dL 05/19/22 05/19/22 05/19/22 Range/Units 07:28 11:13 16:54 RBC (4.40-5.60) X 10*6/uL Hgb (13.0-17.0) g/dL Hct (39.6-50.0) % RDW (11.5-14.5) % Immature Gran # (0.00-0.04) X 10*3/uL Lymphocytes # (0.90-5.00) X 10*3/uL Eosinophils # (0.04-0.35) X 10*3/uL Carbon Dioxide (20.0-27.5) mmol/L BUN (9.0-27.0) mg/dL Creatinine (0.6-1.5) mg/dL Est GFR (CKD-EPI)AfAm (60.0-200.0) Est GFR (CKD-EPI)NonAf (60.0-200.0) BUN/Creatinine Ratio (12.00-20.00) Ratio Glucose (70-110) mg/dL POC Glucose (mg/dL) 151 H 144 H 251 H (70-110) mg/dL Calcium (8.7-10.3) mg/dL Assessment and Plan Assessment: Right leg cellulitis Acute kidney injury on chronic kidney disease, improving ALLERGIC reaction, suspected due to Lasix with developing upper extremity symmetrical rash 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 Continue same treatment. Continue with symptomatic treatment. Resume home medication. Monitor lytes and vitals. DVT and GI prophylaxis. Further recommendations as per clinical course of the patient DVT prophylaxis: Xarelto GI Prophylaxis: Ppi PT/OT: Pending Prognosis is guarded
[2022-05-19] MEDS: MONTELUKAST 10 MG TAB PO SCH (19:57)
[2022-05-19] MEDS: PANTOPRAZOLE 40 MG TABLET PO SCH (19:57)
[2022-05-19 20:44] LABS: Glucose,Whole Blood 273 mg/dL (70-110)
[2022-05-20] MEDS: LEVOTHYROXINE 100 MCG TAB PO SCH (06:05)
[2022-05-20 07:12] LABS: Glucose,Whole Blood 229 mg/dL (70-110)
[2022-05-20] MEDS: FUROSEMIDE 40 MG TAB PO SCH (07:25)
[2022-05-20] MEDS: SODIUM BICARBONATE TAB 650 MG TAB PO SCH (08:25)
[2022-05-20] MEDS: INSULIN ASPART (NovoLOG) 100 UNIT/ML VIAL SQ SCH ×4 (08:25→21:42)
[2022-05-20] MEDS: CEPHALEXIN 500 MG CAP PO SCH ×3 (08:25→21:43)
[2022-05-20] MEDS: DILTIAZEM CD 240 MG CAP.ER.24H PO SCH (08:25)
[2022-05-20] MEDS: PIOGLITAZONE 15 MG TAB PO SCH (08:25)
--- NOTE | 2022-05-20 11:28 | P.PN ---
Subjective patient is seen in follow-up for acute kidney injury. Renal for stable. Admits to good urine output. No vomiting or diarrhea. Oral intake is good. Vital signs are stable. General: awake. No acute distress. HEENT: Head exam is unremarkable. LUNGS: Breath sounds decreased. HEART: Rate and Rhythm are regular. ABDOMEN: soft, obese. EXTREMITITES: Lower extremities wrapped. No drainage. 1+ edema. Objective - Vital Signs Vital signs: Vital Signs Temp 98.6 F 05/20/22 08:00 Pulse 81 05/20/22 08:00 Resp 16 05/20/22 08:00 BP 117/61 05/20/22 08:00 Pulse Ox 94 L 05/20/22 08:00 FiO2 Intake & Output 05/19/22 05/20/22 05/20/22 18:59 06:59 18:59 Intake Total 100 Output Total 300 Balance -200 Intake: Intake, IV Titration 100 Amount Ampicillin-Sulbactam 3 gm 100 In Sodium Chloride 0.9% 100 ml @ 200 mls/hr IVPB Q6HR [facility] Rx#:[id number] Output: Urine 300 Other: Voiding Method Toilet Toilet # Voids 2 - Labs CBC & Chem 7: 05/19/22 05:31 05/19/22 05:31 Labs: Abnormal Lab Results - Last 24 Hours (Table) 05/19/22 05/19/22 05/20/22 Range/Units 16:54 20:43 07:11 POC Glucose (mg/dL) 251 H 273 H 229 H (70-110) mg/dL Microbiology - Last 24 Hours (Table) 05/17/22 18:30 Stool Culture - Preliminary Stool Assessment and Plan Plan: assessment: 1. Acute kidney injury mostly prerenal secondary to hypovolemia from poor intake, diarrhea and further worsened with the use of diuretics and an dangiotensin receptor holly. creatinine was 2.27 on admission and is now stable near 1.6-1.7. creatinine in May 2021 was near 1. no hydronephrosis noted on kidney ultrasound. UA fairly benign. 2. Metabolic acidosis secondary to acute kidney injury and GI losses. Status post bicarbonate drip. Now on oral bicarbonate. 3. Hyperkalemia secondary to acute kidney injury, acidosis, triamterene, Aldactone and losartan. Improved with medical management. Resolved. 4. Diabetes mellitus. 5. Lower extremity edema. Improved with diuresis. plan: Encourage oral intake. Continue to hold diuretics and Cozaar. Continue to monitor renal function and urine output. Avoid nephrotoxins. Stop oral bicarb. Advised to follow up outpatient in 1 week post discharge.
[2022-05-20 12:11] LABS: Glucose,Whole Blood 261 mg/dL (70-110)
[2022-05-20] MEDS: ATORVASTATIN 10 MG TAB PO SCH (12:56)
--- NOTE | 2022-05-20 13:51 | P.PN ---
Subjective Progress Note Date: 05/19/22 Principal diagnosis: Bilateral lower extremity cellulitis and diarrhea Patient is a 76-year male with a past medical history significant for bilateral extremity venous stasis ulcer and cellulitis presented to hospital with weakness and diarrhea also noticed to have bilateral lower extremity cellulitis and some venous stasis ulcer. On today's evaluation that is 05/19/2022, The patient continues to be afebrile, the patient is breathing comfortably on room air the patient denies having any chest pain or shortness of breath or cough no abdominal pain no diarrhea, the p atient denies pain to the lower extremity , drainage has decreased patient has developed itchy rash to the upper extremity Objective - Vital Signs Vital signs: Vital Signs Temp 98.1 F 05/19/22 07:57 Pulse 80 05/19/22 07:57 Resp 18 05/19/22 07:57 BP 118/75 05/19/22 07:57 Pulse Ox 97 05/19/22 07:57 FiO2 Intake & Output 05/18/22 05/19/22 05/19/22 18:59 06:59 18:59 Intake Total 100 Output Total 900 1500 300 Balance -900 -1500 -200 Weight 151.953 kg Intake: Intake, IV Titration 100 Amount Ampicillin-Sulbactam 3 gm 100 In Sodium Chloride 0.9% 100 ml @ 200 mls/hr IVPB Q6HR [facility] Rx#:[id number] Output: Urine 900 1500 300 Other: Voiding Method Toilet Toilet # Voids 1 - Exam GENERAL DESCRIPTION elderly male lying in bed, no distress. No tachypnea or accessory muscle of respiration use. LUNGS: Unlabored breathing. Decreased breath sound at the base HEART: S1, S2, regular rate and rhythm. No loud murmur ABDOMEN: Soft, no tenderness , guarding or rigidity, no organomegaly EXTREMITIES: Bilateral lower extremity currently dressed no drainage on the dressing. - Labs CBC & Chem 7: 05/19/22 05:31 05/19/22 05:31 Labs: Abnormal Lab Results - Last 24 Hours (Table) 05/18/22 05/18/22 05/19/22 Range/Units 16:31 20:31 05:31 RBC 3.70 L (4.40-5.60) X 10*6/uL Hgb 10.7 L (13.0-17.0) g/dL Hct 33.4 L (39.6-50.0) % RDW 17.8 H (11.5-14.5) % Immature Gran # 0.13 H (0.00-0.04) X 10*3/uL Lymphocytes # 0.84 L (0.90-5.00) X 10*3/uL Eosinophils # 0.52 H (0.04-0.35) X 10*3/uL Carbon Dioxide (20.0-27.5) mmol/L BUN (9.0-27.0) mg/dL Creatinine (0.6-1.5) mg/dL Est GFR (CKD-EPI)AfAm (60.0-200.0) Est GFR (CKD-EPI)NonAf (60.0-200.0) BUN/Creatinine Ratio (12.00-20.00) Ratio Glucose (70-110) mg/dL POC Glucose (mg/dL) 185 H 149 H (70-110) mg/dL Calcium (8.7-10.3) mg/dL 05/19/22 05/19/22 05/19/22 Range/Units 05:31 07:28 11:13 RBC (4.40-5.60) X 10*6/uL Hgb (13.0-17.0) g/dL Hct (39.6-50.0) % RDW (11.5-14.5) % Immature Gran # (0.00-0.04) X 10*3/uL Lymphocytes # (0.90-5.00) X 10*3/uL Eosinophils # (0.04-0.35) X 10*3/uL Carbon Dioxide 27.8 H (20.0-27.5) mmol/L BUN 34.1 H (9.0-27.0) mg/dL Creatinine 1.6 H (0.6-1.5) mg/dL Est GFR (CKD-EPI)AfAm 48.5 L (60.0-200.0) Est GFR (CKD-EPI)NonAf 41.8 L (60.0-200.0) BUN/Creatinine Ratio 21.31 H (12.00-20.00) Ratio Glucose 148 H (70-110) mg/dL POC Glucose (mg/dL) 151 H 144 H (70-110) mg/dL Calcium 8.2 L (8.7-10.3) mg/dL Assessment and Plan (1) Cellulitis of left lower extremity Current Visit: No Status: Acute Code(s): L03.116 - CELLULITIS OF LEFT LOWER LIMB SNOMED Code(s): 278550978 (2) Cellulitis of right leg Current Visit: No Status: Acute Code(s): L03.115 - CELLULITIS OF RIGHT LOWER LIMB SNOMED Code(s): 875502535 Plan: 1patient with bilateral lower extremity venous stasis ulcer and cellulitis right greater than the left 2-The patient has shown clinical improvement the patient is afebrile and the patient white count has normalized, the patient seemed to have developed a rash possibly related to Unasyn we will discontinue Unasyn and start the patient on Keflex 3local wound care with Aquacel silver dressing and Zeus wrap changed every 48 hour Time with Patient: Less than 30
--- NOTE | 2022-05-20 13:52 | P.PN ---
Subjective Progress Note Date: 05/20/22 Principal diagnosis: Bilateral lower extremity cellulitis and diarrhea Patient is a 76-year male with a past medical history significant for bilateral extremity venous stasis ulcer and cellulitis presented to hospital with weakness and diarrhea also noticed to have bilateral lower extremity cellulitis and some venous stasis ulcer. On today's evaluation that is 05/20/2022, The patient remains to be afebrile, the patient is breathing comfortably on room air the patient denies having any chest pain or shortness of breath or cough no abdominal pain no diarrhea, the patient denies pain to the lower extremity , , patient rash to the upper extremity has decreased in intensity Objective - Vital Signs Vital signs: Vital Signs Temp 98.6 F 05/20/22 08:00 Pulse 81 05/20/22 08:00 Resp 16 05/20/22 08:00 BP 117/61 05/20/22 08:00 Pulse Ox 94 L 05/20/22 08:00 FiO2 Intake & Output 05/19/22 05/20/22 05/20/22 18:59 06:59 18:59 Intake Total 100 Output Total 300 Balance -200 Intake: Intake, IV Titration 100 Amount Ampicillin-Sulbactam 3 gm 100 In Sodium Chloride 0.9% 100 ml @ 200 mls/hr IVPB Q6HR [facility] Rx#:[id number] Output: Urine 300 Other: Voiding Method Toilet Toilet # Voids 2 - Exam GENERAL DESCRIPTION elderly male lying in bed, no distress. No tachypnea or accessory muscle of respiration use. LUNGS: Unlabored breathing. Decreased breath sound at the base HEART: S1, S2, regular rate and rhythm. No loud murmur ABDOMEN: Soft, no tenderness , guarding or rigidity, no organomegaly EXTREMITIES: Bilateral lower extremity wound with no slough tissue surrounding redness has improved no drainage - Labs CBC & Chem 7: 05/19/22 05:31 05/19/22 05:31 Labs: Abnormal Lab Results - Last 24 Hours (Table) 05/19/22 05/19/22 05/20/22 Range/Units 16:54 20:43 07:11 POC Glucose (mg/dL) 251 H 273 H 229 H (70-110) mg/dL 05/20/22 Range/Units 12:09 POC Glucose (mg/dL) 261 H (70-110) mg/dL Microbiology - Last 24 Hours (Table) 05/17/22 18:30 Stool Culture - Preliminary Stool Assessment and Plan (1) Cellulitis of left lower extremity Current Visit: No Status: Acute Code(s): L03.116 - CELLULITIS OF LEFT LOWER LIMB SNOMED Code(s): 300275874 (2) Cellulitis of right leg Current Visit: No Status: Acute Code(s): L03.115 - CELLULITIS OF RIGHT LOWER LIMB SNOMED Code(s): 454470803 Plan: 1patient with bilateral lower extremity venous stasis ulcer and cellulitis right greater than the left 2- local wound care with Aquacel silver dressing and Zeus wrap changed every 48 hour 3-patient to continue with oral Keflex to finish a 7-10 day course of therapy for underlying cellulitis Time with Patient: Less than 30
--- NOTE | 2022-05-20 14:58 | P.PN ---
Subjective 76-year-old male presenting with weakness, diarrhea and poor appetite. No vomiting. No fever. No chest pain. No abdominal pain. Patient's symptoms have been present for the past 3 weeks. He has been trying Imodium and Pepto- Bismol without improvement in the diarrhea. He has at least one episode daily. Laboratory completed in ED reveals a decrease of 15.6, hemoglobin 13.9 and platelet count of 266, sodium 136, potassium 6.3, BUN/creatinine of 82/2.27 and blood glucose of 107 EKG Findings:: sinus tachycardia with prolonged OK interval, first-degree AV block rate of 103 QRS duration 89, QTC 372, no ST segment elevation 05/14/2022 Patient is seen and evaluated sitting up in bedside chair; discussed with nursing staff; reports increased pain and redness both lower extremities; patient has dressing on both lower extremity wounds which getting frequently saturated with foul-smelling discharge Vital signs are reviewed and remained stable Lab review shows B UN/creatinine of 52/1.8; nephrology on board; recommending to Hep-Lock IV fluids and encourage increased oral fluid intake; diuretics and Cozaar remain on hold; monitor renal function closely; patient has been placed on oral bicarbonate -- Plan to start patient on IV Zosyn for cellulitis lower extremity and infected wounds; ID is consulted for further recommendations -- Patient continues to complain of numerous diarrheal episodes; C. diff is negative; we will consult general surgery, Dr. Chavez, for further evaluation 05/15/2022 This is a pleasant 76 years old male who presents originally because of ongoing diarrhea for about 3 weeks. Since admission his diarrhea was stopped and he did not have a bowel movement over the last 2 days. He has some nausea vomiting but currently he is able to tolerate diet about 50- 100%. He ate about half of his breakfast meal. Also patient is complaining of from some hemorrhoids. Now he has evidence of cellulitis of right leg 05/16/2022 Patient acute kidney injury is improving, creatinine from yesterday 1.7, check labs tomorrow. Patient gastroenteritis this has resolved, no vomiting, no pain, now she is complaining of from constipation since admission, she was asked me to give her stool softeners, patient was started on Colace and senna. Surgery team on the case, follow-up computed tomography scan of the abdomen and pelvis. Continue with Unasyn for bilateral leg cellulitis, more on the right leg PT/OT: Home health care 05/17/2012 Patient looks clinically improving and getting more stable., He still on IV antibiotics for his bilateral cellulitis which looks stable, his leukocytosis is improved today 9.9. His acute kidney injury is stable and creatinine 1.7 at baseline. Nephrology team of the case. Surgical team signed off the case. CT of the abdomen on pelvis showing no acute abnormality. He has tortuosity of the blood vessels with suspected occlusion of the IVC filter. This looks Suresh problem but because of concern regarding compliance with posterior surgery team to evaluate him today. Patient looks improving and possible discharge in 24-48 hours 05/18/2012 Patient is clinically doing better, he is awake and alert, he looks comfortable. He denies any chest pain or dyspnea. No new symptoms, He had frequent bowel movements. He is advised not to take Colace or senna as they are when necessary and he agrees. Patient remains on Unasyn Stool culture has been sent and is pending. Other than that leukocytosis improved but no labs from today. We are going to repeat labs in the morning. Patient still have significant ulcer of his right leg but no significant surrounding cellulitis, size of the ulcer is about 3 x 5" and there is a smaller one just below it. And have unhealthy base. No purulent discharge. 05/19/2022 Patient infection is improving and he is having bilateral leg edema. Patient was doing well on Unasyn. Yesterday it was started on IV Lasix. Today he developed transient both upper extremities and abdomen. Suspected due to the Lasix. Although patient states that he took Lasix long time ago. Also there is possibility could be from antibiotic but less likely. It was changed to Keflex anyway and we are going to monitor the patient for another 24 hours for any further rash or worsening. Patient has no mild swelling, no dyspnea or wheezing. No hypertension. And he received a one-time dose of IV Solu-Medrol 60 mg. Patient instructed to avoid Lasix. Possible discharge in 24-48 hours. Patient refuses to go to rehab per staff. Patient will be discharged home with home health care. 05/20/2022 Patient denies any chest pain or dyspnea or any other complaints. He still have some rash in his upper extremity and abdomen although is improving, Patient has another dose of Lasix last night which is a stopped now. Also he is on Keflex now rather than Unasyn We need to monitor rash for another 24 hours as it is not completely resolved Patient himself does not feel ready to be discharged today Objective - Vital Signs Vital signs: Vital Signs Temp 98.6 F 05/20/22 08:00 Pulse 81 05/20/22 08:00 Resp 16 05/20/22 08:00 BP 117/61 05/20/22 08:00 Pulse Ox 94 L 05/20/22 08:00 FiO2 Intake & Output 05/19/22 05/20/22 05/20/22 18:59 06:59 18:59 Intake Total 100 Output Total 300 Balance -200 Intake: Intake, IV Titration 100 Amount Ampicillin-Sulbactam 3 gm 100 In Sodium Chloride 0.9% 100 ml @ 200 mls/hr IVPB Q6HR [facility] Rx#:[id number] Output: Urine 300 Other: Voiding Method Toilet Toilet # Voids 2 - Exam GENERAL: The patient is alert and oriented x3, not in any acute distress. Well developed, well nourished. HEENT: Pupils are round and equally reacting to light. EOMI. No scleral icterus. No conjunctival pallor. Normocephalic, atraumatic. No pharyngeal erythema. No thyromegaly. CARDIOVASCULAR: S1 and S2 present. No murmurs, rubs, or gallops. PULMONARY: Chest is clear to auscultation, no wheezing or crackles. ABDOMEN: Soft, nontender, nondistended, normoactive bowel sounds. No palpable organomegaly. MUSCULOSKELETAL: No joint swelling or deformity. -EXTREMITIES: No cyanosis, clubbing, or pedal edema. Right leg : ulcer of his right leg but no significant surrounding cellulitis, size of the ulcer is about 3 x 5" and there is a smaller one just below it. And have unhealthy base. No purulent discharge. NEUROLOGICAL: Gross neurological examination did not reveal any focal deficits. SKIN: No rashes. no petechiae. - Labs CBC & Chem 7: 05/19/22 05:31 05/19/22 05:31 Labs: Abnormal Lab Results - Last 24 Hours (Table) 05/19/22 05/19/22 05/19/22 Range/Units 05:31 05:31 11:13 RBC 3.70 L (4.40-5.60) X 10*6/uL Hgb 10.7 L (13.0-17.0) g/dL Hct 33.4 L (39.6-50.0) % RDW 17.8 H (11.5-14.5) % Immature Gran # 0.13 H (0.00-0.04) X 10*3/uL Lymphocytes # 0.84 L (0.90-5.00) X 10*3/uL Eosinophils # 0.52 H (0.04-0.35) X 10*3/uL Carbon Dioxide 27.8 H (20.0-27.5) mmol/L BUN 34.1 H (9.0-27.0) mg/dL Creatinine 1.6 H (0.6-1.5) mg/dL Est GFR (CKD-EPI)AfAm 48.5 L (60.0-200.0) Est GFR (CKD-EPI)NonAf 41.8 L (60.0-200.0) BUN/Creatinine Ratio 21.31 H (12.00-20.00) Ratio Glucose 148 H (70-110) mg/dL POC Glucose (mg/dL) 144 H (70-110) mg/dL Calcium 8.2 L (8.7-10.3) mg/dL 05/19/22 05/19/22 05/20/22 Range/Units 16:54 20:43 07:11 RBC (4.40-5.60) X 10*6/uL Hgb (13.0-17.0) g/dL Hct (39.6-50.0) % RDW (11.5-14.5) % Immature Gran # (0.00-0.04) X 10*3/uL Lymphocytes # (0.90-5.00) X 10*3/uL Eosinophils # (0.04-0.35) X 10*3/uL Carbon Dioxide (20.0-27.5) mmol/L BUN (9.0-27.0) mg/dL Creatinine (0.6-1.5) mg/dL Est GFR (CKD-EPI)AfAm (60.0-200.0) Est GFR (CKD-EPI)NonAf (60.0-200.0) BUN/Creatinine Ratio (12.00-20.00) Ratio Glucose (70-110) mg/dL POC Glucose (mg/dL) 251 H 273 H 229 H (70-110) mg/dL Calcium (8.7-10.3) mg/dL Microbiology - Last 24 Hours (Table) 05/17/22 18:30 Stool Culture - Preliminary Stool Assessment and Plan Assessment: Right leg cellulitis Acute kidney injury on chronic kidney disease, improving ALLERGIC reaction, suspected due to Lasix with developing upper extremity symmetrical rash 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 Continue same treatment. Continue with symptomatic treatment. Resume home medication. Monitor lytes and vitals. DVT and GI prophylaxis. Further recommendations as per clinical course of the patient DVT prophylaxis: Xarelto GI Prophylaxis: Ppi PT/OT: Pending Prognosis is guarded
[2022-05-20 16:56] LABS: Glucose,Whole Blood 202 mg/dL (70-110)
[2022-05-20] MEDS: RIVAROXABAN 20 MG TAB PO SCH (17:44)
[2022-05-20 20:19] LABS: Glucose,Whole Blood 181 mg/dL (70-110)
[2022-05-20] MEDS: MONTELUKAST 10 MG TAB PO SCH (21:43)
[2022-05-20] MEDS: PANTOPRAZOLE 40 MG TABLET PO SCH (21:43)
[2022-05-21] MEDS: LEVOTHYROXINE 100 MCG TAB PO SCH (06:11)
[2022-05-21] MEDS: INSULIN ASPART (NovoLOG) 100 UNIT/ML VIAL SQ SCH ×4 (07:24→20:27)
[2022-05-21 07:26] LABS: Glucose,Whole Blood 148 mg/dL (70-110)
[2022-05-21] MEDS: CEPHALEXIN 500 MG CAP PO SCH ×3 (09:00→20:28)
[2022-05-21] MEDS: DILTIAZEM CD 240 MG CAP.ER.24H PO SCH (09:00)
[2022-05-21] MEDS: PIOGLITAZONE 15 MG TAB PO SCH (09:00)
--- NOTE | 2022-05-21 10:26 | P.PN ---
Subjective patient is seen in follow-up for acute kidney injury. Renal function stable. Admits to good urine output. No vomiting or diarrhea. Oral intake is good. Hemodynamically stable. No active complaints. Being discharged today. Vital signs are stable. General: awake. No acute distress. HEENT: Head exam is unremarkable. LUNGS: Breath sounds decreased. HEART: Rate and Rhythm are regular. ABDOMEN: soft, obese. EXTREMITITES: Lower extremities wrapped. No drainage. 1+ edema. Objective - Vital Signs Vital signs: Vital Signs Temp 98.0 F 05/21/22 08:00 Pulse 63 05/21/22 08:00 Resp 20 05/21/22 08:00 BP 116/73 05/21/22 08:00 Pulse Ox 95 05/21/22 08:00 FiO2 Intake & Output 05/20/22 05/21/22 05/21/22 18:59 06:59 18:59 Output Total 350 800 Balance -350 -800 Output: Urine 350 800 Other: Voiding Method Toilet Toilet - Labs CBC & Chem 7: 05/19/22 05:31 05/19/22 05:31 Labs: Abnormal Lab Results - Last 24 Hours (Table) 05/20/22 05/20/22 05/20/22 Range/Units 12:09 16:54 20:18 POC Glucose (mg/dL) 261 H 202 H 181 H (70-110) mg/dL 05/21/22 Range/Units 07:22 POC Glucose (mg/dL) 148 H (70-110) mg/dL Microbiology - Last 24 Hours (Table) 05/17/22 18:30 Stool Culture - Final Stool Assessment and Plan Plan: assessment: 1. Acute kidney injury mostly prerenal secondary to hypovolemia from poor intake, diarrhea and further worsened with the use of diuretics and andangiotensin receptor holly. creatinine was 2.27 on admission and is now stable near 1.6-1.7. creatinine in May 2021 was near 1. no hydronephrosis noted on kidney ultrasound. UA fairly benign. 2. Metabolic acidosis secondary to acute kidney injury and GI losses. Status post bicarbonate drip. Now on oral bicarbonate. 3. Hyperkalemia secondary to acute kidney injury, acidosis, triamterene, Aldactone and losartan. Improved with medical management. Resolved. 4. Diabetes mellitus. 5. Lower extremity edema. Improved with diuresis. plan: Encourage oral intake. Continue to monitor renal function and urine output. Avoid nephrotoxins. Add ethacrynic acid 25 mg once daily. There is concern of ALLERGY from Lasix. Advised to follow up outpatient in 1 week post discharge. Repeat BMP and magnesium level 2-3 days postdischarge. Case discussed with primary team.
[2022-05-21 12:26] LABS: Glucose,Whole Blood 155 mg/dL (70-110)
[2022-05-21] MEDS: ATORVASTATIN 10 MG TAB PO SCH (12:56)
[2022-05-21 17:03] LABS: Glucose,Whole Blood 199 mg/dL (70-110)
[2022-05-21] MEDS: RIVAROXABAN 20 MG TAB PO SCH (17:04)
--- NOTE | 2022-05-21 17:49 | P.PN ---
Subjective Progress Note Date: 05/21/22 Principal diagnosis: Bilateral lower extremity cellulitis and diarrhea Patient is a 76-year male with a past medical history significant for bilateral extremity venous stasis ulcer and cellulitis presented to hospital with weakness and diarrhea also noticed to have bilateral lower extremity cellulitis and some venous stasis ulcer. On today's evaluation that is 05/21/2022, The patient continues to be afebrile, the patient is breathing comfortably on room air the patient denies having any chest pain or shortness of breath or cough, the patient denies abdominal pain no diarrhea, the patient denies pain to the lower extremity , , patient rash to the upper extremity has decreased in intensity Objective - Vital Signs Vital signs: Vital Signs Temp 98.0 F 05/21/22 08:00 Pulse 63 05/21/22 08:00 Resp 20 05/21/22 08:00 BP 116/73 05/21/22 08:00 Pulse Ox 95 05/21/22 08:00 FiO2 Intake & Output 05/20/22 05/21/22 05/21/22 18:59 06:59 18:59 Output Total 350 800 Balance -350 -800 Output: Urine 350 800 Other: Voiding Method Toilet Toilet - Exam GENERAL DESCRIPTION elderly male lying in bed, no distress. No tachypnea or accessory muscle of respiration use. LUNGS: Unlabored breathing. Decreased breath sound at the base HEART: S1, S2, regular rate and rhythm. No loud murmur ABDOMEN: Soft, no tenderness , guarding or rigidity, no organomegaly EXTREMITIES: Bilateral lower extremity wound with no slough tissue surrounding redness has improved no drainage - Labs CBC & Chem 7: 05/19/22 05:31 05/19/22 05:31 Labs: Abnormal Lab Results - Last 24 Hours (Table) 05/20/22 05/21/22 05/21/22 Range/Units 20:18 07:22 12:24 POC Glucose (mg/dL) 181 H 148 H 155 H (70-110) mg/dL 05/21/22 Range/Units 17:01 POC Glucose (mg/dL) 199 H (70-110) mg/dL Microbiology - Last 24 Hours (Table) 05/17/22 18:30 Stool Culture - Final Stool Assessment and Plan (1) Cellulitis of left lower extremity Current Visit: No Status: Acute Code(s): L03.116 - CELLULITIS OF LEFT LOWER LIMB SNOMED Code(s): 440426215 (2) Cellulitis of right leg Current Visit: No Status: Acute Code(s): L03.115 - CELLULITIS OF RIGHT LOWER LIMB SNOMED Code(s): 355735387 Plan: 1patient with bilateral lower extremity venous stasis ulcer and cellulitis right greater than the left 2- local wound care with Aquacel silver dressing and Zeus wrap changed every 48 hour 3-patient seemed her clinical improvement and will continue with oral Keflex to finish a 7- day course of therapy on discharge Time with Patient: Less than 30
[2022-05-21 19:44] LABS: Glucose,Whole Blood 205 mg/dL (70-110)
[2022-05-21] MEDS: PANTOPRAZOLE 40 MG TABLET PO SCH (20:28)
[2022-05-21] MEDS: MONTELUKAST 10 MG TAB PO SCH (20:28)
--- NOTE | 2022-05-21 21:28 | P.PN ---
Subjective 76-year-old male presenting with weakness, diarrhea and poor appetite. No vomiting. No fever. No chest pain. No abdominal pain. Patient's symptoms have been present for the past 3 weeks. He has been trying Imodium and Pepto- Bismol without improvement in the diarrhea. He has at least one episode daily. Laboratory completed in ED reveals a decrease of 15.6, hemoglobin 13.9 and platelet count of 266, sodium 136, potassium 6.3, BUN/creatinine of 82/2.27 and blood glucose of 107 EKG Findings:: sinus tachycardia with prolonged CT interval, first-degree AV block rate of 103 QRS duration 89, QTC 372, no ST segment elevation 05/14/2022 Patient is seen and evaluated sitting up in bedside chair; discussed with nursing staff; reports increased pain and redness both lower extremities; patient has dressing on both lower extremity wounds which getting frequently saturated with foul-smelling discharge Vital signs are reviewed and remained stable Lab review shows B UN/creatinine of 52/1.8; nephrology on board; recommending to Hep-Lock IV fluids and encourage increased oral fluid intake; diuretics and Cozaar remain on hold; monitor renal function closely; patient has been placed on oral bicarbonate -- Plan to start patient on IV Zosyn for cellulitis lower extremity and infected wounds; ID is consulted for further recommendations -- Patient continues to complain of numerous diarrheal episodes; C. diff is negative; we will consult general surgery, Dr. Chavez, for further evaluation 05/15/2022 This is a pleasant 76 years old male who presents originally because of ongoing diarrhea for about 3 weeks. Since admission his diarrhea was stopped and he did not have a bowel movement over the last 2 days. He has some nausea vomiting but currently he is able to tolerate diet about 50- 100%. He ate about half of his breakfast meal. Also patient is complaining of from some hemorrhoids. Now he has evidence of cellulitis of right leg 05/16/2022 Patient acute kidney injury is improving, creatinine from yesterday 1.7, check labs tomorrow. Patient gastroenteritis this has resolved, no vomiting, no pain, now she is complaining of from constipation since admission, she was asked me to give her stool softeners, patient was started on Colace and senna. Surgery team on the case, follow-up computed tomography scan of the abdomen and pelvis. Continue with Unasyn for bilateral leg cellulitis, more on the right leg PT/OT: Home health care 05/17/2012 Patient looks clinically improving and getting more stable., He still on IV antibiotics for his bilateral cellulitis which looks stable, his leukocytosis is improved today 9.9. His acute kidney injury is stable and creatinine 1.7 at baseline. Nephrology team of the case. Surgical team signed off the case. CT of the abdomen on pelvis showing no acute abnormality. He has tortuosity of the blood vessels with suspected occlusion of the IVC filter. This looks Suresh problem but because of concern regarding compliance with posterior surgery team to evaluate him today. Patient looks improving and possible discharge in 24-48 hours 05/18/2012 Patient is clinically doing better, he is awake and alert, he looks comfortable. He denies any chest pain or dyspnea. No new symptoms, He had frequent bowel movements. He is advised not to take Colace or senna as they are when necessary and he agrees. Patient remains on Unasyn Stool culture has been sent and is pending. Other than that leukocytosis improved but no labs from today. We are going to repeat labs in the morning. Patient still have significant ulcer of his right leg but no significant surrounding cellulitis, size of the ulcer is about 3 x 5" and there is a smaller one just below it. And have unhealthy base. No purulent discharge. 05/19/2022 Patient infection is improving and he is having bilateral leg edema. Patient was doing well on Unasyn. Yesterday it was started on IV Lasix. Today he developed transient both upper extremities and abdomen. Suspected due to the Lasix. Although patient states that he took Lasix long time ago. Also there is possibility could be from antibiotic but less likely. It was changed to Keflex anyway and we are going to monitor the patient for another 24 hours for any further rash or worsening. Patient has no mild swelling, no dyspnea or wheezing. No hypertension. And he received a one-time dose of IV Solu-Medrol 60 mg. Patient instructed to avoid Lasix. Possible discharge in 24-48 hours. Patient refuses to go to rehab per staff. Patient will be discharged home with home health care. 05/20/2022 Patient denies any chest pain or dyspnea or any other complaints. He still have some rash in his upper extremity and abdomen although is improving, Patient has another dose of Lasix last night which is a stopped now. Also he is on Keflex now rather than Unasyn We need to monitor rash for another 24 hours as it is not completely resolved Patient himself does not feel ready to be discharged today 05/21/2022 Patient is clinically improving, his acute kidney injury is improved and his numbers are stable now. He still have bilateral leg swelling and is a clinic as it is suggested by nephrology team, not available in the hospital but prescription for outpatient as provided for the patient. Patient denies any other symptoms no chest pain or dyspnea or abdominal complaints. No vomiting or diarrhea. Patient also on antibiotics and tolerated Keflex well with recommendation to continue for 7 days upon discharge. His rash is completely resolved Patient is medically stable and therefore discharge However there was a concern about his discharge plan. When bedside nurse asked him FOR DISCHARGE HE TOLD HER I DON'T HAVE THE PLAN. HD patient's request interest in the hospital but at the same time he refused to go to rehab. Stating that his does not want him to go to rehab, and patient told the nurse that he plans to drive his car back to his home, while air air he needed the help of the nurse to move his feet off the bed although he can walk by himself for short distance Therefore we'll hold his discharge tonight and we'll reevaluate in the morning. Objective - Vital Signs Vital signs: Vital Signs Temp 98.1 F 05/21/22 19:23 Pulse 67 05/21/22 19:23 Resp 17 05/21/22 19:23 BP 134/76 05/21/22 19:23 Pulse Ox 98 05/21/22 19:23 FiO2 Intake & Output 05/21/22 05/21/22 05/22/22 06:59 18:59 06:59 Output Total 800 Balance -800 Output: Urine 800 Other: Voiding Method Toilet # Voids 5 - Exam GENERAL: The patient is alert and oriented x3, not in any acute distress. Well developed, well nourished. HEENT: Pupils are round and equally reacting to light. EOMI. No scleral icterus. No conjunctival pallor. Normocephalic, atraumatic. No pharyngeal erythema. No thyromegaly. CARDIOVASCULAR: S1 and S2 present. No murmurs, rubs, or gallops. PULMONARY: Chest is clear to auscultation, no wheezing or crackles. ABDOMEN: Soft, nontender, nondistended, normoactive bowel sounds. No palpable organomegaly. MUSCULOSKELETAL: No joint swelling or deformity. -EXTREMITIES: No cyanosis, clubbing, or pedal edema. Right leg : ulcer of his right leg but no significant surrounding cellulitis, size of the ulcer is about 3 x 5" and there is a smaller one just below it. And have unhealthy base. No purulent discharge. NEUROLOGICAL: Gross neurological examination did not reveal any focal deficits. SKIN: No rashes. no petechiae. 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 The patient for discharge Surgery team consult signed off Hold discharge today for safety regarding his transport and discharge planning , and consult social director Labs and medication were reviewed.. Continue same treatment. Continue with symptomatic treatment. Resume home medication. Monitor lytes and vitals. DVT and GI prophylaxis. Further recommendations as per clinical course of the patient DVT prophylaxis: Xarelto GI Prophylaxis: Ppi
[2022-05-22] MEDS: LEVOTHYROXINE 100 MCG TAB PO SCH (05:06)
[2022-05-22 07:05] LABS: Glucose,Whole Blood 173 mg/dL (70-110)
[2022-05-22] MEDS: DILTIAZEM CD 240 MG CAP.ER.24H PO SCH (07:56)
[2022-05-22] MEDS: CEPHALEXIN 500 MG CAP PO SCH ×3 (07:56→21:41)
[2022-05-22] MEDS: INSULIN ASPART (NovoLOG) 100 UNIT/ML VIAL SQ SCH ×4 (07:56→21:41)
[2022-05-22] MEDS: PIOGLITAZONE 15 MG TAB PO SCH (07:57)
--- NOTE | 2022-05-22 10:01 | P.PN ---
Subjective patient is seen in follow-up for acute kidney injury. Renal function stable. Creatinine 1.6 dated 05/19/2022. Admits to good urine output. No vomiting or diarrhea. Oral intake is good. Hemodynamically stable. No active complaints. Being discharged today. Vital signs are stable. General: awake. No acute distress. HEENT: Head exam is unremarkable. LUNGS: Breath sounds decreased. HEART: Rate and Rhythm are regular. ABDOMEN: soft, obese. EXTREMITITES: Lower extremities wrapped. No drainage. 1+ edema. Objective - Vital Signs Vital signs: Vital Signs Temp 97.9 F 05/22/22 08:00 Pulse 78 05/22/22 08:00 Resp 17 05/22/22 08:00 BP 110/69 05/22/22 08:00 Pulse Ox 94 L 05/22/22 08:00 FiO2 Intake & Output 05/21/22 05/22/22 05/22/22 18:59 06:59 18:59 Other: Voiding Method Toilet Urinal # Voids 5 2 - Labs CBC & Chem 7: 05/19/22 05:31 05/19/22 05:31 Labs: Abnormal Lab Results - Last 24 Hours (Table) 05/21/22 05/21/22 05/21/22 Range/Units 12:24 17:01 19:43 POC Glucose (mg/dL) 155 H 199 H 205 H (70-110) mg/dL 05/22/22 Range/Units 07:03 POC Glucose (mg/dL) 173 H (70-110) mg/dL Microbiology - Last 24 Hours (Table) 05/17/22 18:30 Stool Culture - Final Stool Assessment and Plan Plan: assessment: 1. Acute kidney injury mostly prerenal secondary to hypovolemia from poor intake, diarrhea and further worsened with the use of diuretics and andangiotensin receptor holly. creatinine was 2.27 on admission and is now stable near 1.6-1.7. creatinine in May 2021 was near 1. no hydronephrosis noted on kidney ultrasound. UA fairly benign. 2. Metabolic acidosis secondary to acute kidney injury and GI losses. Status post bicarbonate drip. Improved. 3. Hyperkalemia secondary to acute kidney injury, acidosis, triamterene, Aldactone and losartan. Improved with medical management. Resolved. 4. Diabetes mellitus. 5. Lower extremity edema. Improved with diuresis. plan: Encourage oral intake. Continue to monitor renal function and urine output. Avoid nephrotoxins. Maintain ethacrynic acid 25 mg once daily upon discharge. There is concern of ALLERGY from Lasix. Advised to follow up outpatient in 1 week post discharge. Repeat BMP and magnesium level 2-3 days postdischarge. Case discussed with primary team.
[2022-05-22 11:46] LABS: Glucose,Whole Blood 187 mg/dL (70-110)
[2022-05-22] MEDS: ATORVASTATIN 10 MG TAB PO SCH (12:33)
[2022-05-22 16:42] LABS: Glucose,Whole Blood 161 mg/dL (70-110)
[2022-05-22] MEDS: RIVAROXABAN 20 MG TAB PO SCH (17:29)
[2022-05-22 20:49] LABS: Glucose,Whole Blood 186 mg/dL (70-110)
[2022-05-22] MEDS: PANTOPRAZOLE 40 MG TABLET PO SCH (21:41)
[2022-05-22] MEDS: MONTELUKAST 10 MG TAB PO SCH (21:41)
[2022-05-23 03:53] VITALS: RESP 16
[2022-05-23] MEDS: LEVOTHYROXINE 100 MCG TAB PO SCH (06:31)
[2022-05-23 07:18] LABS: Glucose,Whole Blood 160 mg/dL (70-110)
[2022-05-23 08:32] VITALS: BP 121/77; PULSE 75; TEMP 98.1
[2022-05-23] MEDS: CEPHALEXIN 500 MG CAP PO SCH ×2 (08:50→14:46)
[2022-05-23] MEDS: INSULIN ASPART (NovoLOG) 100 UNIT/ML VIAL SQ SCH ×2 (08:50→11:31)
[2022-05-23] MEDS: PIOGLITAZONE 15 MG TAB PO SCH (08:50)
[2022-05-23] MEDS: DILTIAZEM CD 240 MG CAP.ER.24H PO SCH (08:50)
--- NOTE | 2022-05-23 09:43 | P.PN ---
Subjective Progress Note Date: 05/22/22 76-year-old male presenting with weakness, diarrhea and poor appetite. No vomiting. No fever. No chest pain. No abdominal pain. Patient's symptoms have been present for the past 3 weeks. He has been trying Imodium and Pepto- Bismol without improvement in the diarrhea. He has at least one episode daily. Laboratory completed in ED reveals a decrease of 15.6, hemoglobin 13.9 and platelet count of 266, sodium 136, potassium 6.3, BUN/creatinine of 82/2.27 and blood glucose of 107 EKG Findings:: sinus tachycardia with prolonged NM interval, first-degree AV block rate of 103 QRS duration 89, QTC 372, no ST segment elevation 05/14/2022 Patient is seen and evaluated sitting up in bedside chair; discussed with nursing staff; reports increased pain and redness both lower extremities; patient has dressing on both lower extremity wounds which getting frequently saturated with foul-smelling discharge Vital signs are reviewed and remained stable Lab review shows B UN/creatinine of 52/1.8; nephrology on board; recommending to Hep-Lock IV fluids and encourage increased oral fluid intake; diuretics and Cozaar remain on hold; monitor renal function closely; patient has been placed on oral bicarbonate -- Plan to start patient on IV Zosyn for cellulitis lower extremity and infected wounds; ID is consulted for further recommendations -- Patient continues to complain of numerous diarrheal episodes; C. diff is negative; we will consult general surgery, Dr. Chavez, for further evaluation 05/15/2022 This is a pleasant 76 years old male who presents originally because of ongoing diarrhea for about 3 weeks. Since admission his diarrhea was stopped and he did not have a bowel movement over the last 2 days. He has some nausea vomiting but currently he is able to tolerate diet about 50- 100%. He ate about half of his breakfast meal. Also patient is complaining of from some hemorrhoids. Now he has evidence of cellulitis of right leg 05/16/2022 Patient acute kidney injury is improving, creatinine from yesterday 1.7, check labs tomorrow. Patient gastroenteritis this has resolved, no vomiting, no pain, now she is complaining of from constipation since admission, she was asked me to give her stool softeners, patient was started on Colace and senna. Surgery team on the case, follow-up computed tomography scan of the abdomen and pelvis. Continue with Unasyn for bilateral leg cellulitis, more on the right leg PT/OT: Home health care 05/17/2012 Patient looks clinically improving and getting more stable., He still on IV antibiotics for his bilateral cellulitis which looks stable, his leukocytosis is improved today 9.9. His acute kidney injury is stable and creatinine 1.7 at baseline. Nephrology team of the case. Surgical team signed off the case. CT of the abdomen on pelvis showing no acute abnormality. He has tortuosity of the blood vessels with suspected occlusion of the IVC filter. This looks Suresh problem but because of concern regarding compliance with posterior surgery team to evaluate him today. Patient looks improving and possible discharge in 24-48 hours 05/18/2012 Patient is clinically doing better, he is awake and alert, he looks comfortable. He denies any chest pain or dyspnea. No new symptoms, He had frequent bowel movements. He is advised not to take Colace or senna as they are when necessary and he agrees. Patient remains on Unasyn Stool culture has been sent and is pending. Other than that leukocytosis improved but no labs from today. We are going to repeat labs in the morning. Patient still have significant ulcer of his right leg but no significant surrounding cellulitis, size of the ulcer is about 3 x 5" and there is a smaller one just below it. And have unhealthy base. No purulent discharge. 05/19/2022 Patient infection is improving and he is having bilateral leg edema. Patient was doing well on Unasyn. Yesterday it was started on IV Lasix. Today he developed transient both upper extremities and abdomen. Suspected due to the Lasix. Although patient states that he took Lasix long time ago. Also there is possibility could be from antibiotic but less likely. It was changed to Keflex anyway and we are going to monitor the patient for another 24 hours for any further rash or worsening. Patient has no mild swelling, no dyspnea or wheezing. No hypertension. And he received a one-time dose of IV Solu-Medrol 60 mg. Patient instructed to avoid Lasix. Possible discharge in 24-48 hours. Patient refuses to go to rehab per staff. Patient will be discharged home with home health care. 05/20/2022 Patient denies any chest pain or dyspnea or any other complaints. He still have some rash in his upper extremity and abdomen although is improving, Patient has another dose of Lasix last night which is a stopped now. Also he is on Keflex now rather than Unasyn We need to monitor rash for another 24 hours as it is not completely resolved Patient himself does not feel ready to be discharged today 05/21/2022 Patient is clinically improving, his acute kidney injury is improved and his numbers are stable now. He still have bilateral leg swelling and is a clinic as it is suggested by nephrology team, not available in the hospital but prescription for outpatient as provided for the patient. Patient denies any other symptoms no chest pain or dyspnea or abdominal complaints. No vomiting or diarrhea. Patient also on antibiotics and tolerated Keflex well with recommendation to continue for 7 days upon discharge. His rash is completely resolved Patient is medically stable and therefore discharge However there was a concern about his discharge plan. When bedside nurse asked him FOR DISCHARGE HE TOLD HER I DON'T HAVE THE PLAN. HD patient's request interest in the hospital but at the same time he refused to go to rehab. Stating that his does not want him to go to rehab, and patient told the nurse that he plans to drive his car back to his home, while air air he needed the help of the nurse to move his feet off the bed although he can walk by himself for short distance Therefore we'll hold his discharge tonight and we'll reevaluate in the morning. 05/22/2022 Patient is currently sitting on the side of the bed. Awake alert and oriented 3. He having bilateral lower extremity swelling and rosa m wrapped. Next and no complaints of abdominal pain. No nausea vomiting or abdominal pain or diarrhea. Renal function has been stable and follow-up repeat labs tomorrow. Patient refuses to go to rehab. PTOT is on board. Patient is on antibiotics in the form of Keflex for right lower extremity cellulitis. Patient is on anticoagulation with xarelto. Current medications reviewed. Objective - Vital Signs Vital signs: Vital Signs Temp 98.5 F 05/22/22 20:00 Pulse 82 05/22/22 20:00 Resp 17 05/22/22 20:00 BP 136/79 05/22/22 20:00 Pulse Ox 98 05/22/22 20:00 FiO2 Intake & Output 05/22/22 05/22/22 05/23/22 06:59 18:59 06:59 Output Total 400 Balance -400 Output: Urine 400 Other: Voiding Method Toilet Urinal # Voids 2 3 - Exam - Exam GENERAL: The patient is alert and oriented x3, not in any acute distress. Well developed, well nourished. HEENT: Pupils are round and equally reacting to light. EOMI. No scleral icterus. No conjunctival pallor. Normocephalic, atraumatic. No pharyngeal erythema. No thyromegaly. CARDIOVASCULAR: S1 and S2 present. No murmurs, rubs, or gallops. PULMONARY: Chest is clear to auscultation, no wheezing or crackles. ABDOMEN: Soft, nontender, nondistended, normoactive bowel sounds. No palpable organomegaly. MUSCULOSKELETAL: No joint swelling or deformity. -EXTREMITIES: No cyanosis, clubbing, or pedal edema. Right leg : ulcer of his right leg but no significant surrounding cellulitis, size of the ulcer is about 3 x 5" and there is a smaller one just below it. And have unhealthy base. No purulent discharge. NEUROLOGICAL: Gross neurological examination did not reveal any focal deficits. SKIN: No rashes. no petechiae. - Labs CBC & Chem 7: 05/19/22 05:31 05/19/22 05:31 Labs: Abnormal Lab Results - Last 24 Hours (Table) 05/22/22 05/22/22 05/22/22 Range/Units 07:03 11:44 16:40 POC Glucose (mg/dL) 173 H 187 H 161 H (70-110) mg/dL 05/22/22 Range/Units 20:47 POC Glucose (mg/dL) 186 H (70-110) mg/dL Microbiology - Last 24 Hours (Table) 05/17/22 18:30 Stool Culture - Final Stool Assessment and Plan Assessment: Right leg cellulitis Acute kidney injury on chronic kidney disease, improving Hyperkalemia due to acute kidney injury resolved. metabolic acidosis secondary to acute kidney injury and GI losses.Status post bicarb drip. 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 Surgery team consult signed off Hold discharge today for safety regarding his transport and discharge planning , and consult nephrology social worker Labs and medication were reviewed. Continue with symptomatic treatment. Resume home medication. Monitor lytes and vitals. DVT and GI prophylaxis. DVT prophylaxis: Xarelto GI Prophylaxis: Ppi Possible discharge to rehab versus home with home PT. Patient refused to go to rehab. Time with Patient: Greater than 30
--- NOTE | 2022-05-23 10:15 | P.PN ---
Subjective patient is seen in follow-up for acute kidney injury. Renal function stable. Creatinine 1.6 dated 05/19/2022. Admits to good urine output. No vomiting or diarrhea. Oral intake is good. Hemodynamically stable. No active complaints. Await discharge. Vital signs are stable. General: awake. No acute distress. HEENT: Head exam is unremarkable. LUNGS: Breath sounds decreased. HEART: Rate and Rhythm are regular. ABDOMEN: soft, obese. EXTREMITITES: Lower extremities wrapped. No drainage. 1+ edema. Objective - Vital Signs Vital signs: Vital Signs Temp 98.1 F 05/23/22 08:00 Pulse 75 05/23/22 08:00 Resp 16 05/23/22 08:00 BP 121/77 05/23/22 08:00 Pulse Ox 96 05/23/22 08:00 FiO2 Intake & Output 05/22/22 05/23/22 05/23/22 18:59 06:59 18:59 Output Total 400 Balance -400 Output: Urine 400 Other: Voiding Method Toilet Urinal # Voids 3 1 - Labs CBC & Chem 7: 05/19/22 05:31 05/19/22 05:31 Labs: Abnormal Lab Results - Last 24 Hours (Table) 05/22/22 05/22/22 05/22/22 Range/Units 11:44 16:40 20:47 POC Glucose (mg/dL) 187 H 161 H 186 H (70-110) mg/dL 05/23/22 Range/Units 07:16 POC Glucose (mg/dL) 160 H (70-110) mg/dL Microbiology - Last 24 Hours (Table) 05/17/22 18:30 Stool Culture - Final Stool Assessment and Plan Plan: assessment: 1. Acute kidney injury mostly prerenal secondary to hypovolemia from poor intake, diarrhea and further worsened with the use of diuretics and andangiotensin receptor holly. creatinine was 2.27 on admission and is now stable near 1.6-1.7. creatinine in May 2021 was near 1. no hydronephrosis noted on kidney ultrasound. UA fairly benign. 2. Metabolic acidosis secondary to acute kidney injury and GI losses. Status post bicarbonate drip. Improved. 3. Hyperkalemia secondary to acute kidney injury, acidosis, triamterene, Aldactone and losartan. Improved with medical management. Resolved. 4. Diabetes mellitus. 5. Lower extremity edema. Improved with diuresis. plan: Encourage oral intake. Continue to monitor renal function and urine output. Avoid nephrotoxins. To start ethacrynic acid 25 mg once daily upon discharge. There is concern of ALLERGY from Lasix. Advised to follow up outpatient in 1 week post discharge. Repeat BMP and magnesium level 2-3 days postdischarge. Case discussed with primary team. Morning labs pending.
[2022-05-23 11:20] LABS: Anisocytosis Slight; Basophils # (A) 0.1 k/uL (0-0.2); Basophils % (A) 1 %; Eosinophils # (A) 0.5 k/uL (0-0.7); Eosinophils % (A) 5 %; HCT 39.4 % (39.0-53.0); HGB 12.4 gm/dL (13.0-17.5); Hypochromasia Slight; Lymphocytes # (A) 0.8 k/uL (1.0-4.8); Lymphocytes % (A) 9 %; MCH 28.9 pg (25.0-35.0); MCHC 31.4 g/dL (31.0-37.0); MCV 92.3 fL (80.0-100.0); Mean Platelet Volume 8.6; Monocytes # (A) 0.4 k/uL (0-1.0); Monocytes % (A) 5 %; Neutrophils # (A) 7.3 k/uL (1.3-7.7); Neutrophils % (A) 79 %; Platelet Count 235 k/uL (150-450); RBC 4.27 m/uL (4.30-5.90); RDW 16.3 % (11.5-15.5); WBC 9.3 k/uL (3.8-10.6)
[2022-05-23 11:28] LABS: Glucose,Whole Blood 138 mg/dL (70-110)
[2022-05-23 11:35] LABS: African American GFR (CKD) 80 (>60 ml/min/1.73 sqM); Anion Gap 10 mmol/L; Blood Urea Nitrogen 27 mg/dL (9-20); Calcium 8.5 mg/dL (8.4-10.2); Carbon Dioxide 27 mmol/L (22-30); Chloride 101 mmol/L (98-107); Glucose 143 mg/dL (74-99); Magnesium 1.5 mg/dL (1.6-2.3); Non-African American GFR(CKD) 69 (>60 ml/min/1.73 sqM); Potassium 4.2 mmol/L (3.5-5.1); Sodium 138 mmol/L (137-145)
[2022-05-23] MEDS: MAGNESIUM SULFATE-D5W PMX 1 GM in DEXTROSE/WATER 1 100ML.BAG IVPB SCH ×2 (12:35→14:56)
[2022-05-23] MEDS: ATORVASTATIN 10 MG TAB PO SCH (14:46)
[2022-05-23] MEDS: RIVAROXABAN 20 MG TAB PO SCH (14:47)
--- NOTE | 2022-05-24 11:38 | CDI ---
Documentation Clarification Form Date: 05/24/2022 11:06:00 AM From: Chrystal Daigle Admit Date: 05/12/2022 03:00:00 AM Patient Name: Antony De La Cruz Visit Number: [id number] Discharge Date: 05/23/2022 04:50:00 PM ATTENTION: The Clinical Documentation Specialists (CDI) and [facility] Coding Staff appreciate your assistance in clarifying documentation. Please respond to the clarification below the line at the bottom and electronically sign. The CDI & [facility] Coding staff will review the response and follow-up if needed. Please note: Queries are made part of the Legal Health Record. If you have any questions, please contact the author of this message via ITS. Dr. Mckenna Go Per DCS and PN's 05/16 - 05/22 there is documentation of Chronic IVC filter occlusion. Please clarify the etiology of the occlusion. Thrombosis, embolism, plaque. Additional information is needed. History/Risk Factors: Cellulitis and venous stasis ulcers of bilateral legs, Patient with Activated protein C resistance and personal histor of DVT's and PE's on Xeralto Clinical Indicators: chronic IVC filter occlustion Tortuosity of blood vessels Treatment: Elevate Lower extremities and use compression stockings Can you please clarify etiology of chronic occlusion of IVC filter [ x ] chronic thrombosis, embolism [ ] Plaque [ ] Other, please specify [ ] Unable to determine MTDD
--- NOTE | 2022-05-30 23:47 | P.PN ---
Subjective Progress Note Date: 05/22/22 Principal diagnosis: Bilateral lower extremity cellulitis and diarrhea Patient is a 76-year male with a past medical history significant for bilateral extremity venous stasis ulcer and cellulitis presented to hospital with weakness and diarrhea also noticed to have bilateral lower extremity cellulitis and some venous stasis ulcer. On today's evaluation that is 05/22/2022 the patient remains to be afebrile the patient is breathing comfortably room air no chest pain shortness of breath or cough no abdominal pain and no diarrhea overall pain discomfort to the leg has decreased in intensity Objective - Vital Signs Vital signs: Vital Signs Temp 97.9 F 05/22/22 08:00 Pulse 78 05/22/22 08:00 Resp 17 05/22/22 08:00 BP 110/69 05/22/22 08:00 Pulse Ox 94 L 05/22/22 08:00 FiO2 Intake & Output 05/21/22 05/22/22 05/22/22 18:59 06:59 18:59 Other: Voiding Method Toilet Urinal # Voids 5 2 - Exam GENERAL DESCRIPTION elderly male lying in bed, no distress. No tachypnea or accessory muscle of respiration use. LUNGS: Unlabored breathing. Decreased breath sound at the base HEART: S1, S2, regular rate and rhythm. No loud murmur ABDOMEN: Soft, no tenderness , guarding or rigidity, no organomegaly EXTREMITIES: Bilateral lower extremity wound with no slough tissue surrounding redness has improved no drainage - Labs CBC & Chem 7: 05/23/22 10:31 05/23/22 10:31 Labs: Abnormal Lab Results - Last 24 Hours (Table) 05/21/22 05/21/22 05/22/22 Range/Units 17:01 19:43 07:03 POC Glucose (mg/dL) 199 H 205 H 173 H (70-110) mg/dL 05/22/22 Range/Units 11:44 POC Glucose (mg/dL) 187 H (70-110) mg/dL Microbiology - Last 24 Hours (Table) 05/17/22 18:30 Stool Culture - Final Stool Assessment and Plan (1) Cellulitis of left lower extremity Status: Acute Code(s): L03.116 - CELLULITIS OF LEFT LOWER LIMB SNOMED Code(s): 983618884 (2) Cellulitis of right leg Status: Acute Code(s): L03.115 - CELLULITIS OF RIGHT LOWER LIMB SNOMED Code(s): 734158361 Plan: 1patient with bilateral lower extremity venous stasis ulcer and cellulitis right greater than the left 2- local wound care with Aquacel silver dressing and Zeus wrap changed every 48 hour 3-Patient is slowly clinical improvement patient to continue with oral Keflex to finish course of therapy Time with Patient: Less than 30
--- NOTE | 2022-05-30 23:48 | P.PN ---
Subjective Progress Note Date: 05/23/22 Principal diagnosis: Bilateral lower extremity cellulitis and diarrhea Patient is a 76-year male with a past medical history significant for bilateral extremity venous stasis ulcer and cellulitis presented to hospital with weakness and diarrhea also noticed to have bilateral lower extremity cellulitis and some venous stasis ulcer. On today's evaluation that is 05/23/2022 the patient denies having any fever or any chills, the patient is breathing comfortably on room air no chest pain shortness with or cough no abdominal pain overall pain discomfort to the leg has decreased in intensity Objective - Vital Signs Vital signs: Vital Signs Temp 98.1 F 05/23/22 08:00 Pulse 75 05/23/22 08:00 Resp 16 05/23/22 08:00 BP 121/77 05/23/22 08:00 Pulse Ox 96 05/23/22 08:00 FiO2 Intake & Output 05/22/22 05/23/22 05/23/22 18:59 06:59 18:59 Output Total 400 Balance -400 Output: Urine 400 Other: Voiding Method Toilet Urinal # Voids 3 1 - Exam GENERAL DESCRIPTION elderly male lying in bed, no distress. No tachypnea or accessory muscle of respiration use. LUNGS: Unlabored breathing. Decreased breath sound at the base HEART: S1, S2, regular rate and rhythm. No loud murmur ABDOMEN: Soft, no tenderness , guarding or rigidity, no organomegaly EXTREMITIES: Bilateral lower extremity wound with no slough tissue surrounding redness has improved no drainage - Labs CBC & Chem 7: 05/23/22 10:31 05/23/22 10:31 Labs: Abnormal Lab Results - Last 24 Hours (Table) 05/22/22 05/22/22 05/23/22 Range/Units 16:40 20:47 07:16 RBC (4.30-5.90) m/uL Hgb (13.0-17.5) gm/dL RDW (11.5-15.5) % Lymphocytes # (1.0-4.8) k/uL BUN (9-20) mg/dL Glucose (74-99) mg/dL POC Glucose (mg/dL) 161 H 186 H 160 H (70-110) mg/dL Magnesium (1.6-2.3) mg/dL 05/23/22 05/23/22 05/23/22 Range/Units 10:31 10:31 11:26 RBC 4.27 L (4.30-5.90) m/uL Hgb 12.4 L (13.0-17.5) gm/dL RDW 16.3 H (11.5-15.5) % Lymphocytes # 0.8 L (1.0-4.8) k/uL BUN 27 H (9-20) mg/dL Glucose 143 H (74-99) mg/dL POC Glucose (mg/dL) 138 H (70-110) mg/dL Magnesium 1.5 L (1.6-2.3) mg/dL Assessment and Plan (1) Cellulitis of left lower extremity Status: Acute Code(s): L03.116 - CELLULITIS OF LEFT LOWER LIMB SNOMED Code(s): 813222351 (2) Cellulitis of right leg Status: Acute Code(s): L03.115 - CELLULITIS OF RIGHT LOWER LIMB SNOMED Code(s): 992316424 Plan: 1patient with bilateral lower extremity venous stasis ulcer and cellulitis right greater than the left 2- local wound care with Aquacel silver dressing and Zeus wrap changed every 48 hour 3-Patient seem to have shown clinical improvement currently on oral Keflex to continue for about a week to finish course therapy and local wound care as ordered and close outpatient follow-up Time with Patient: Greater than 30
--- NOTE | 2022-05-31 13:16 | CDI ---
Documentation Clarification Form Date: 05/31/2022 12:41:00 PM From: Chrystal Daigle Admit Date: 05/12/2022 03:00:00 AM Patient Name: Antony De La Cruz Visit Number: [id number] Discharge Date: 05/23/2022 04:50:00 PM ATTENTION: The Clinical Documentation Specialists (CDI) and [facility] Coding Staff appreciate your assistance in clarifying documentation. Please respond to the clarification below the line at the bottom and electronically sign. The CDI & [facility] Coding staff will review the response and follow-up if needed. Please note: Queries are made part of the Legal Health Record. If you have any questions, please contact the author of this message via ITS. Dr. Mckenna oG Patient with chronic IVC filter occlusion, per query response, due to chronic thrombosis and embolism. Please clarify if there is a relationship between the chronic thrombosis and the IVC filter or is the occlusion of the IVC filter not due to the presence of the IVC filter. History/Risk Factors: Chronic occlusion of IVC filter. Clinical Indicators: Treatment: Please clarify the relationship, if any, which is clinically appropriate for this patient: [ x ] Chronic embolism and thrombosis of IVC filter due to presence of IVC filter [ ] Chronic embolism and thrombosis of IVC filter not duo presence of IVC filter [ ] Other explanation of clinical findings (please specify) [ ] Unable to determine (no explanation for clinical findings) MTDD
--- NOTE | 2022-05-31 15:07 | P.DS ---
Providers Date of admission: 05/12/22 03:00 Expected date of discharge: 05/23/22 Attending physician: Alfa Washburn MD Consults: 05/12/22 13:13 Consult Physician Routine Consulting Provider: Melvin Townsend Consult Reason/Comments: mau Do you want consulting provider notified?: Yes 05/14/22 06:47 Consult Physician Routine Consulting Provider: Silvano Dee Consult Reason/Comments: right shoulder pain Do you want consulting provider notified?: Yes 05/14/22 14:28 Consult Physician Urgent Consulting Provider: Charisma Silva Consult Reason/Comments: Cellulitis Do you want consulting provider notified?: Yes Primary care physician: [facility] Course: Right leg cellulitis Acute kidney injury on chronic kidney disease, improving Hyperkalemia due to acute kidney injury resolved. metabolic acidosis secondary to acute kidney injury and GI losses.Status post bicarb drip. 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 No vomiting. No fever. No chest pain. No abdominal pain. Patient's symptoms have been present for the past 3 weeks. He has been trying Imodium and Pepto- Bismol without improvement in the diarrhea. He has at least one episode daily. Laboratory completed in ED reveals a decrease of 15.6, hemoglobin 13.9 and platelet count of 266, sodium 136, potassium 6.3, BUN/creatinine of 82/2.27 and blood glucose of 107 EKG Findings:: sinus tachycardia with prolonged NJ interval, first-degree AV block rate of 103 QRS duration 89, QTC 372, no ST segment elevation 05/14/2022 Patient is seen and evaluated sitting up in bedside chair; discussed with nursing staff; reports increased pain and redness both lower extremities; patient has dressing on both lower extremity wounds which getting frequently saturated with foul-smelling discharge Vital signs are reviewed and remained stable Lab review shows B UN/creatinine of 52/1.8; nephrology on board; recommending to Hep-Lock IV fluids and encourage increased oral fluid intake; diuretics and Cozaar remain on hold; monitor renal function closely; patient has been placed on oral bicarbonate -- Plan to start patient on IV Zosyn for cellulitis lower extremity and infected wounds; ID is consulted for further recommendations -- Patient continues to complain of numerous diarrheal episodes; C. diff is negative; we will consult general surgery, Dr. Chavez, for further evaluation 05/15/2022 This is a pleasant 76 years old male who presents originally because of ongoing diarrhea for about 3 weeks. Since admission his diarrhea was stopped and he did not have a bowel movement over the last 2 days. He has some nausea vomiting but currently he is able to tolerate diet about 50- 100%. He ate about half of his breakfast meal. Also patient is complaining of from some hemorrhoids. Now he has evidence of cellulitis of right leg 05/16/2022 Patient acute kidney injury is improving, creatinine from yesterday 1.7, check labs tomorrow. Patient gastroenteritis this has resolved, no vomiting, no pain, now she is complaining of from constipation since admission, she was asked me to give her stool softeners, patient was started on Colace and senna. Surgery team on the case, follow-up computed tomography scan of the abdomen and pelvis. Continue with Unasyn for bilateral leg cellulitis, more on the right leg PT/OT: Home health care 05/17/2012 Patient looks clinically improving and getting more stable., He still on IV antibiotics for his bilateral cellulitis which looks stable, his leukocytosis is improved today 9.9. His acute kidney injury is stable and creatinine 1.7 at baseline. Nephrology team of the case. Surgical team signed off the case. CT of the abdomen on pelvis showing no acute abnormality. He has tortuosity of the blood vessels with suspected occlusion of the IVC filter. This looks Suresh problem but because of concern regarding compliance with posterior surgery team to evaluate him today. Patient looks improving and possible discharge in 24-48 hours 05/18/2012 Patient is clinically doing better, he is awake and alert, he looks comfortable. He denies any chest pain or dyspnea. No new symptoms, He had frequent bowel movements. He is advised not to take Colace or senna as they are when necessary and he agrees. Patient remains on Unasyn Stool culture has been sent and is pending. Other than that leukocytosis improved but no labs from today. We are going to repeat labs in the morning. Patient still have significant ulcer of his right leg but no significant surrounding cellulitis, size of the ulcer is about 3 x 5" and there is a smaller one just below it. And have unhealthy base. No purulent discharge. 05/19/2022 Patient infection is improving and he is having bilateral leg edema. Patient was doing well on Unasyn. Yesterday it was started on IV Lasix. Today he developed transient both upper extremities and abdomen. Suspected due to the Lasix. Although patient states that he took Lasix long time ago. Also there is possibility could be from antibiotic but less likely. It was changed to Keflex anyway and we are going to monitor the patient for another 24 hours for any further rash or worsening. Patient has no mild swelling, no dyspnea or wheezing. No hypertension. And he received a one-time dose of IV Solu-Medrol 60 mg. Patient instructed to avoid Lasix. Possible discharge in 24-48 hours. Patient refuses to go to rehab per staff. Patient will be discharged home with home health care. 05/20/2022 Patient denies any chest pain or dyspnea or any other complaints. He still have some rash in his upper extremity and abdomen although is improving, Patient has another dose of Lasix last night which is a stopped now. Also he is on Keflex now rather than Unasyn We need to monitor rash for another 24 hours as it is not completely resolved Patient himself does not feel ready to be discharged today 05/21/2022 Patient is clinically improving, his acute kidney injury is improved and his numbers are stable now. He still have bilateral leg swelling and is a clinic as it is suggested by nephrology team, not available in the hospital but prescription for outpatient as provided for the patient. Patient denies any other symptoms no chest pain or dyspnea or abdominal complaints. No vomiting or diarrhea. Patient also on antibiotics and tolerated Keflex well with recommendation to continue for 7 days upon discharge. His rash is completely resolved Patient is medically stable and therefore discharge However there was a concern about his discharge plan. When bedside nurse asked him FOR DISCHARGE HE TOLD HER I DON'T HAVE THE PLAN. HD patient's request interest in the hospital but at the same time he refused to go to rehab. Stating that his does not want him to go to rehab, and patient told the nurse that he plans to drive his car back to his home, while air air he needed the help of the nurse to move his feet off the bed although he can walk by himself for short distance Therefore we'll hold his discharge tonight and we'll reevaluate in the morning. 05/22/2022 Patient is currently sitting on the side of the bed. Awake alert and oriented 3. He having bilateral lower extremity swelling and rosa m wrapped. Next and no complaints of abdominal pain. No nausea vomiting or abdominal pain or diarrhea. Renal function has been stable and follow-up repeat labs tomorrow. Patient refuses to go to rehab. PTOT is on board. Patient is on antibiotics in the form of Keflex for right lower extremity cellulitis. Patient is on anticoagulation with xarelto. 05/23/2022 Patient is resting in bed. Awake alert oriented x3. No complaints of chest pain or shortness of breath. Denies any dysuria or hematuria. No cough or sputum production. Abdominal pain and discomfort did improve. Right leg pain is also improving swelling did improve. Continue IV antibiotics and will be changed to Keflex for a week to finish antibiotic course. Patient has been afebrile. Cleared from ID standpoint No headache or dizziness lightheadedness. Laboratory data showed WBC 9.3 hemoglobin 12.4 and platelets 235 Sodium 138 potassium 4.2 chloride 101 bicarb is 27 BUN 27 creatinine 1.06 and medication 1.5 which is being replaced. - Exam GENERAL: The patient is alert and oriented x3, not in any acute distress. Well developed, well nourished. HEENT: Pupils are round and equally reacting to light. EOMI. No scleral icterus. No conjunctival pallor. Normocephalic, atraumatic. No pharyngeal erythema. No thyromegaly. CARDIOVASCULAR: S1 and S2 present. No murmurs, rubs, or gallops. PULMONARY: Chest is clear to auscultation, no wheezing or crackles. ABDOMEN: Soft, nontender, nondistended, normoactive bowel sounds. No palpable organomegaly. MUSCULOSKELETAL: No joint swelling or deformity. -EXTREMITIES: No cyanosis, clubbing, or pedal edema. Right leg : ulcer of his right leg but no significant surrounding cellulitis, No purulent discharge. NEUROLOGICAL: Gross neurological examination did not reveal any focal deficits. SKIN: No rashes. no petechiae. Patient Condition at Discharge: Stable Plan - Discharge Summary Discharge Rx Participant: No New Discharge Prescriptions: New Ethacrynic Acid 25 mg PO DAILY #30 tablet Cephalexin [Keflex] 500 mg PO TID 5 Days #15 cap Continue Omeprazole [PriLOSEC] 20 mg PO HS Atorvastatin [Lipitor] 10 mg PO PC-LUNCH Levothyroxine Sodium [Synthroid] 200 mcg PO DAILY Montelukast Sodium [Singulair] 10 mg PO HS Albuterol Sulfate [Ventolin HFA] 2 puff INHALATION RT-Q4H PRN PRN Reason: Shortness Of Breath tiZANidine HCL [Zanaflex] 4 mg PO TID PRN PRN Reason: Muscle Spasm Rivaroxaban [Xarelto] 20 mg PO DAILY@1600 Pioglitazone [Actos] 15 mg PO DAILY dilTIAZem HCL [dilTIAZem [id number] ER (CD)] 240 mg PO DAILY Discontinued Spironolactone 50 mg PO DAILY Testosterone Cypionate [Depo-Testosterone] 200 mg IM Q14D Triamterene-Hctz 37.5-25Mg [Dyazide 37.5-25 Capsule] 1 cap PO DAILY Losartan [Cozaar] 50 mg PO HS Discharge Medication List Omeprazole [PriLOSEC] 20 mg PO HS 12/29/13 [History] Atorvastatin [Lipitor] 10 mg PO PC-LUNCH 10/04/17 [History] Levothyroxine Sodium [Synthroid] 200 mcg PO DAILY 10/20/19 [History] Montelukast Sodium [Singulair] 10 mg PO HS 10/20/19 [History] Albuterol Sulfate [Ventolin HFA] 2 puff INHALATION RT-Q4H PRN 01/06/20 [History] tiZANidine HCL [Zanaflex] 4 mg PO TID PRN 03/31/20 [History] Rivaroxaban [Xarelto] 20 mg PO DAILY@1600 05/03/21 [History] Pioglitazone [Actos] 15 mg PO DAILY 05/12/22 [History] dilTIAZem HCL [dilTIAZem [id number] ER (CD)] 240 mg PO DAILY 05/12/22 [History] Ethacrynic Acid 25 mg PO DAILY #30 tablet 05/21/22 [Rx] Cephalexin [Keflex] 500 mg PO TID 5 Days #15 cap 05/23/22 [Rx] Follow up Appointment(s)/Referral(s): Brennon Mora MD [Medical Doctor] - 05/24/22 2:40 pm Nj Montalvo DO [Doctor of Osteopathic Medicine] - 05/29/22 2:10 pm Tatyana Mora MD [Primary Care Provider] - 05/24/22 12:30 pm () Melvin Townsend DO [STAFF PHYSICIAN] - 1 Week (office will call with appointment time) Charisma Silva MD [STAFF PHYSICIAN] - 06/05/22 2:30 pm () Patient Instructions/Handouts: Acute Kidney Injury (DC), Heart Healthy Diet (DC), Fluid Restriction (DC), Chronic Wounds (DC) Activity/Diet/Wound Care/Special Instructions: heart healthy diet ,we recommend fluid restriction about 1200 ml per day activity is restricted till you see your doctor Wound care change bandages every 48 hours last changed on May 23. right leg dry silver dressing covered with ABD, curlex and rosa m wrap. left leg curlex and rosa m wrap. Discharge Disposition: HOME SELF-CARE
== END 2022-05-23 16:50 | disposition home or self-care (01) | DRG 682 ==
LOC: EC 17:55 → 4SSUR 05-12 03:00
PROVIDERS: ADMIT Internal Medicine; ATTEND Internal Medicine
DX: N17.9 Acute kidney failure, unspecified (principal); I82.221 Chronic embolism and thrombosis of inferior vena cava; D68.51 Activated protein C resistance; T82.818A Embolism due to vascular prosthetic devices, implants and grafts, initial encounter; L03.115 Cellulitis of right lower limb; L03.116 Cellulitis of left lower limb; Z68.41 Body mass index [BMI] 40.0-44.9, adult; E87.2 Acidosis; I83.209 Varicose veins of unspecified lower extremity with both ulcer of unspecified site and inflammation; Z16.24 Resistance to multiple antibiotics; L97.919 Non-pressure chronic ulcer of unspecified part of right lower leg with unspecified severity; L97.929 Non-pressure chronic ulcer of unspecified part of left lower leg with unspecified severity; N18.30 Chronic kidney disease, stage 3 unspecified; T50.1X5A Adverse effect of loop [high-ceiling] diuretics, initial encounter; M19.011 Primary osteoarthritis, right shoulder; Z20.822 Contact with and (suspected) exposure to COVID-19; E03.9 Hypothyroidism, unspecified; E11.22 Type 2 diabetes mellitus with diabetic chronic kidney disease; E66.01 Morbid (severe) obesity due to excess calories; E78.5 Hyperlipidemia, unspecified; E86.0 Dehydration; E86.1 Hypovolemia; E87.5 Hyperkalemia; I12.9 Hypertensive chronic kidney disease with stage 1 through stage 4 chronic kidney disease, or unspecified chronic kidney disease; I44.0 Atrioventricular block, first degree; I86.8 Varicose veins of other specified sites; J45.909 Unspecified asthma, uncomplicated; K52.9 Noninfective gastroenteritis and colitis, unspecified; K59.00 Constipation, unspecified; R01.1 Cardiac murmur, unspecified; M19.90 Unspecified osteoarthritis, unspecified site; K64.9 Unspecified hemorrhoids; K21.9 Gastro-esophageal reflux disease without esophagitis; R63.0 Anorexia; G43.909 Migraine, unspecified, not intractable, without status migrainosus; Z87.01 Personal history of pneumonia (recurrent); Z79.01 Long term (current) use of anticoagulants; Z79.51 Long term (current) use of inhaled steroids; Z79.84 Long term (current) use of oral hypoglycemic drugs; Z79.890 Hormone replacement therapy; Z79.899 Other long term (current) drug therapy; Z85.828 Personal history of other malignant neoplasm of skin; Z86.711 Personal history of pulmonary embolism; Z86.718 Personal history of other venous thrombosis and embolism; Z87.442 Personal history of urinary calculi; Z87.891 Personal history of nicotine dependence; Z88.5 Allergy status to narcotic agent; Z88.8 Allergy status to other drugs, medicaments and biological substances; Z91.041 Radiographic dye allergy status; Z91.040 Latex allergy status; Z86.14 Personal history of Methicillin resistant Staphylococcus aureus infection; Z87.11 Personal history of peptic ulcer disease
CPT/HCPCS: 36415; 74176; 76770; 80048; 80053; 81003; 82565; 83036; 83735; 84132; 84439; 84443; 84520; 85025; 86140; 87045; 87046; 87324; 93005; 96360; 96361; 99285

== ENCOUNTER → 2022-06-01 | Outpatient (CLI) | payer MEDICARE, BC ==
--- NOTE | 2022-06-01 14:23 | XR ---
EXAMINATION TYPE: XR ribs LT DATE OF EXAM: 06/01/2022 COMPARISON: NONE HISTORY: Pain TECHNIQUE: 4 views submitted FINDINGS: There is left lower lobe consolidation and small effusion. There is deformities involving t he anterolateral left fifth sixth and seventh ribs. Hypertrophic and degenerative changes spine. Athe rosclerotic change aorta. Hypertrophic arthropathy AC joint correlate for impingement. IMPRESSION: 1. Mildly displaced fractures involving the anterolateral left fifth, sixth and seventh ribs. Left lo wer lobe atelectasis or infiltrate and small effusion.
== END | disposition home or self-care (01) ==
LOC: RADXRMAIN 13:12
PROVIDERS: ATTEND Family Medicine
DX: S22.42XA Multiple fractures of ribs, left side, initial encounter for closed fracture (principal); J90 Pleural effusion, not elsewhere classified

== ENCOUNTER → 2022-06-12 | Outpatient (CLI) | payer MEDICARE, BC ==
[2022-06-12 23:19] LABS: Chol/HDL Ratio 2.92 Ratio; LDL Cholesterol,Calculated 61.7 mg/dL (0.0-131.0); VLDL Calculation 13.86 mg/dL (5.00-40.00)
== END | disposition home or self-care (01) ==
LOC: LABWHC1 14:39
PROVIDERS: ATTEND Family Medicine
DX: E78.00 Pure hypercholesterolemia, unspecified (principal)
CPT/HCPCS: 36415; 80061

== ENCOUNTER 2022-06-28 18:43 | Inpatient (IN) | payer MEDICARE, BC ==
--- NOTE | 2022-06-28 22:17 | ED ---
General Adult HPI - General Chief complaint: Extremity Problem,Nontraumatic Stated complaint: cellulitis Time Seen by Provider: 06/28/22 20:50 Source: patient, RN notes reviewed, old records reviewed Mode of arrival: wheelchair Limitations: no limitations - History of Present Illness Initial comments: 77-year-old male presents to the emergency room with complaints of bilateral lower extremity pain and swelling with right lower leg nonhealing ulcer. P atient states it is cellulitis as he has had it before. He did start some leftover Keflex but states he knows he needs IV antibiotics. Denies any fevers. No nausea vomiting or diarrhea. No chest pain or difficulty breathing. States that he is not compliant with his Aldactone but did recently start taking it again. -: days(s) (4) Location: left, right, lower extremity Severity scale (1-10): 6 Quality: constant Consistency: constant Improves with: none Worsens with: movement, other (touch) Associated Symptoms: denies other symptoms Treatments Prior to Arrival: other (keflex) - Related Data Home Medications Medication Instructions Recorded Confirmed Omeprazole [PriLOSEC] 20 mg PO HS 12/29/13 05/12/22 Atorvastatin [Lipitor] 10 mg PO PC-LUNCH 10/04/17 05/12/22 Levothyroxine Sodium [Synthroid] 200 mcg PO DAILY 10/20/19 05/12/22 Montelukast Sodium [Singulair] 10 mg PO HS 10/20/19 05/12/22 Albuterol Sulfate [Ventolin HFA] 2 puff INHALATION RT-Q4H PRN 01/06/20 05/12/22 tiZANidine HCL [Zanaflex] 4 mg PO TID PRN 03/31/20 05/12/22 Rivaroxaban [Xarelto] 20 mg PO DAILY@1600 05/03/21 05/12/22 Pioglitazone [Actos] 15 mg PO DAILY 05/12/22 05/12/22 dilTIAZem HCL [dilTIAZem [id number] 240 mg PO DAILY 05/12/22 05/12/22 ER (CD)] Previous Rx's Medication Instructions Recorded Ethacrynic Acid 25 mg PO DAILY #30 tablet 05/21/22 Cephalexin [Keflex] 500 mg PO TID 5 Days #15 cap 05/23/22 Allergies Allergy/AdvReac Type Severity Reaction Status Date / Time Iodinated Contrast Media Allergy Anaphylaxis Verified 06/28/22 19:02 iodine Allergy Anaphylaxis Verified 06/28/22 19:02 latex Allergy see comment Verified 06/28/22 19:02 shellfish derived Allergy Anaphylaxis Verified 06/28/22 19:02 shrimp Allergy Anaphylaxis Verified 06/28/22 19:02 tuna oil Allergy Unknown Verified 06/28/22 19:02 codeine AdvReac Rapid Verified 06/28/22 19:02 Heart Rate lisinopril AdvReac Cough Verified 06/28/22 19:02 Review of Systems ROS Statement: Those systems with pertinent positive or pertinent negative responses have been documented in the HPI. ROS Other: All systems not noted in ROS Statement are negative. Past Medical History Past Medical History: Asthma, Blood Disorder, Cancer, Diabetes Mellitus, Deep Vein Thrombosis (DVT), GERD/Reflux, GI Bleed, Hyperlipidemia, Hypertension, Osteoarthritis (OA), Pneumonia, Pulmonary Embolus (PE), Thyroid Disorder Additional Past Medical History / Comment(s): occular migraines, SOB with activity, hx cellulitis x 5, clotting disorder-Factor V- Leiden, basal cell skin ca(folicular), heart murmur, kidney stones, edema rt leg, History of Any Multi-Drug Resistant Organisms: None Reported, MRSA Date of last positivie culture/infection: 2012 MDRO Source:: bilateral legs Past Surgical History: Cholecystectomy, Hernia Repair, Tonsillectomy Additional Past Surgical History / Comment(s): 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 Father Family Medical History: No Reported History Additional Family Medical History / Comment(s): age 72. General Exam Limitations: no limitations General appearance: alert, in no apparent distress Eye exam: Absent: scleral icterus, conjunctival injection, periorbital swelling Respiratory exam: Absent: respiratory distress, accessory muscle use Cardiovascular Exam: Present: regular rate GI/Abdominal exam: Present: soft Extremities exam: Present: tenderness, pedal edema, calf tenderness (left ) Right Knee exam: Present: swelling Lower Leg exam: Present: tenderness (ulcer approx 12cm x 8cm anterior malodo wei), swelling Ankle exam: Present: swelling Foot/Toe exam: Present: swelling Neurovascular tendon exam: Absent: abnormal cap refill, extremity cold to touch, pallor, foot drop Left Upper Leg exam: Present: tenderness, swelling, erythema (inner to groin) Knee exam: Present: tenderness, swelling, erythema Lower Leg exam: Present: tenderness, swelling, erythema Ankle exam: Present: swelling Foot/Toe exam: Present: swelling Neurovascular tendon exam: Absent: abnormal cap refill, extremity cold to touch, pallor, foot drop Neurological exam: Present: alert, oriented X3 Psychiatric exam: Present: normal affect, normal mood Skin exam: Present: warm, dry. Absent: cyanosis, diaphoretic Course Vital Signs 06/28/22 18:59 Temperature 98.6 F Pulse Rate 96 Respiratory 18 Rate Blood Pressure 105/61 O2 Sat by Pulse 97 Oximetry Medical Decision Making - Medical Decision Making Patient presents with recurrence of his lower extremity cellulitis since Sunday. Treated inpatient in April with Unasyn with some improvement. Patient was taking Keflex that he had leftover at home without relief. Denies fevers, n/v/d. Extensive left leg errythema extending from foot to left inner groin. Chronic right lower leg ulcer malodorous and weeping. White blood cell count 15. Blood cultures were drawn and patient was started on antibiotics. According to medical records in April Unasyn showed improvement. Patient was also started on vancomycin. Due to increased swelling and tenderness of the left leg ultrasound performed, negative for DVT. Patient also states he has not been taking his diuretics as prescribed. He will be admitted to the hospital for IV antibiotics. Patient is agreeable to this plan of care. Vital signs are stable. Case discussed with Dr. Yu. - Lab Data Result diagrams: 06/28/22 22:17 06/28/22 22:17 Lab Results 06/28/22 06/28/22 Range/Units 22:17 22:17 WBC 15.0 H (3.8-10.6) k/uL RBC 4.14 L (4.30-5.90) m/uL Hgb 12.3 L (13.0-17.5) gm/dL Hct 37.4 L (39.0-53.0) % MCV 90.3 (80.0-100.0) fL MCH 29.7 (25.0-35.0) pg MCHC 32.9 (31.0-37.0) g/dL RDW 15.4 (11.5-15.5) % Plt Count 306 (150-450) k/uL MPV 7.9 Neutrophils % 90 % Lymphocytes % 4 % Monocytes % 3 % Eosinophils % 1 % Basophils % 0 % Neutrophils # 13.5 H (1.3-7.7) k/uL Lymphocytes # 0.6 L (1.0-4.8) k/uL Monocytes # 0.4 (0-1.0) k/uL Eosinophils # 0.2 (0-0.7) k/uL Basophils # 0.1 (0-0.2) k/uL Hypochromasia Slight Sodium 132 L (137-145) mmol/L Potassium 4.8 (3.5-5.1) mmol/L Chloride 96 L (98-107) mmol/L Carbon Dioxide 22 (22-30) mmol/L Anion Gap 14 mmol/L BUN 39 H (9-20) mg/dL Creatinine 1.68 H (0.66-1.25) mg/dL Est GFR (CKD-EPI)AfAm 45 (>60 ml/min/1.73 sqM) Est GFR (CKD-EPI)NonAf 39 (>60 ml/min/1.73 sqM) Glucose 139 H (74-99) mg/dL Calcium 8.3 L (8.4-10.2) mg/dL Total Bilirubin 1.2 (0.2-1.3) mg/dL AST 31 (17-59) U/L ALT 18 (4-49) U/L Alkaline Phosphatase 139 H (38-126) U/L Total Protein 6.9 (6.3-8.2) g/dL Albumin 3.3 L (3.5-5.0) g/dL Disposition Clinical Impression: Cellulitis of left leg, Ulcer of right lower leg Disposition: ADMITTED IP TO THIS [facility] Referrals: Tatyana Mora MD [Primary Care Provider] - 1-2 days Decision Date: 06/28/22 Decision Time: 22:33
[2022-06-28] MEDS ORDERED: AMPICILLIN-SULBACTAM 3 GM in SODIUM CHLORIDE 0.9% 100 ML IVPB STA (22:24)
[2022-06-28] MEDS ORDERED: fentaNYL (PF) 50 MCG/ML 2 ML AMP IVP PRN (22:25)
[2022-06-28 22:40] LABS: Basophils # (A) 0.1 k/uL (0-0.2); Basophils % (A) 0 %; Eosinophils # (A) 0.2 k/uL (0-0.7); Eosinophils % (A) 1 %; HCT 37.4 % (39.0-53.0); HGB 12.3 gm/dL (13.0-17.5); Hypochromasia Slight; Lymphocytes # (A) 0.6 k/uL (1.0-4.8); Lymphocytes % (A) 4 %; MCH 29.7 pg (25.0-35.0); MCHC 32.9 g/dL (31.0-37.0); MCV 90.3 fL (80.0-100.0); Mean Platelet Volume 7.9; Monocytes # (A) 0.4 k/uL (0-1.0); Monocytes % (A) 3 %; Neutrophils # (A) 13.5 k/uL (1.3-7.7); Neutrophils % (A) 90 %; Platelet Count 306 k/uL (150-450); RBC 4.14 m/uL (4.30-5.90); RDW 15.4 % (11.5-15.5)
[2022-06-28] MEDS ORDERED: VANCOMYCIN IV PER PHARMACY 1 EACH MISC MISCELLANE PRN (22:50)
[2022-06-28 22:56] LABS: Albumin 3.3 g/dL (3.5-5.0); Calcium 8.3 mg/dL (8.4-10.2); Potassium 4.8 mmol/L (3.5-5.1); Total Bilirubin 1.2 mg/dL (0.2-1.3); Total Protein 6.9 g/dL (6.3-8.2)
[2022-06-28] MEDS ORDERED: VANCOMYCIN 2,000 MG in SODIUM CHLORIDE 0.9% 500 ML 500 ML IVPB ONE (23:00)
--- NOTE | 2022-06-28 23:34 | US ---
EXAMINATION TYPE: US venous doppler duplex LE LT DATE OF EXAM: 06/28/2022 11:12 PM COMPARISON: NONE CLINICAL HISTORY: pain swelling. Redness and swelling in both legs. Hx of cellulitis. Pt has hx of DV T in right leg, takes blood thinners. SIDE PERFORMED: Left TECHNIQUE: The lower extremity deep venous system is examined utilizing real time linear array sonog luisa with graded compression, doppler sonography and color-flow sonography. VESSELS IMAGED: Common Femoral Vein Deep Femoral Vein Greater Saphenous Vein * Femoral Vein Popliteal Vein Small Saphenous Vein * Proximal Calf Veins (* superficial vessels) Left Leg: No evidence of DVT IMPRESSION: No evidence of deep vein thrombosis in the left leg.
[2022-06-28] MEDS ORDERED: NALOXONE 0.4 MG/ML 1 ML VIAL IV PRN (23:59)
[2022-06-28] MEDS: SODIUM CHLORIDE 0.9% 1,000 ML IV SCH (23:59)
[2022-06-29] MEDS ORDERED: DEXTROSE 50% SYRINGE 50 ML IVP PRN ×2 (10:01)
[2022-06-29] MEDS ORDERED: ACETAMINOPHEN TAB 325 MG TAB PO PRN (10:03)
[2022-06-29] MEDS ORDERED: FAMOTIDINE 20 MG/2 ML VIAL IV SCH (10:15)
[2022-06-29 12:15] LABS: Glucose,Whole Blood 167 mg/dL (70-110)
[2022-06-29] MEDS: INSULIN ASPART (NovoLOG) 100 UNIT/ML VIAL SQ SCH ×3 (12:24→22:48)
[2022-06-29] MEDS: ATORVASTATIN 10 MG TAB PO SCH (13:32)
[2022-06-29] MEDS: FAMOTIDINE 20 MG/2 ML VIAL IV SCH (13:34)
--- NOTE | 2022-06-29 13:44 | P.HPIM ---
History of Present Illness H&P Date: 06/29/22 This is a 77 year old male who follows with Dr. Tatyana Mora, past medical history includes diabetes, DVT, PE, GI bleed, hypertension, hyperlipidemia, thyroid disorder, factor v leiden clotting disorder, heart murmur. 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 He presents with concern for increased lower extremity edema that has been worse over the past couple of days. He was concerned about cellulitis and came to the hospital for antibiotics. He does follow with Dr Ratliff at wound center outpatient for a chronic wound to the left lower leg and also he has wound with drainage right lower leg. He began taking an old antibiotic prescription at home. He was recently admitted to this facility 05/12/22 to 05/23/22 for acute kidney injury during that admission he was treated for right leg cellulitis and acute kidney injury he was treated and discharged home on oral keflex. He had staphylococcus aureus, proteus penneri, and alcaligen faeca lis on his previous wound culture. 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 He denies fever or chills. Denies shortness of breath. Patient presents with sodium level of 132 and creatinine is increased up to 1.68. Has some leukocytosis 15.0. He is admitted for lower extremity cellulitis and Dr. Silva has been placed on consultation. Patient received a dose of IV unasyn and started on empiric antibiotic coverage with IV vancomycin. Patient is receiving IV fluids at 130 cc per hour and blood pressure remains on the lower side 88 systolic. Venous doppler of left leg negative for DVT. There is question of possible allergic reaction to lasix his previous hospital admission. REVIEW OF SYSTEMS: CONSTITUTIONAL: No fever, no malaise, no fatigue. HEENT: No recent visual problems or hearing problems. Denied any sore throat. CARDIOVASCULAR: No chest pain, orthopnea, PND, no palpitations, no syncope. PULMONARY: No shortness of breath, no cough, no hemoptysis. GASTROINTESTINAL: No diarrhea, no nausea, no vomiting, no abdominal pain. NEUROLOGICAL: No headaches, no weakness, no numbness. HEMATOLOGICAL: Denies any bleeding or petechiae. GENITOURINARY: Denies any burning micturition, frequency, or urgency. MUSCULOSKELETAL/RHEUMATOLOGICAL: Reports lower extremity pain worse on the left. Reports peripheral edema. ENDOCRINE: Denies any polyuria or polydipsia. The rest of the 14-point review of systems is negative. PHYSICAL EXAMINATION: GENERAL: The patient is alert and oriented x3, not in any acute distress. Well developed, well nourished. Obese. HEENT: Pupils are round and equally reacting to light. EOMI. No scleral icterus. No conjunctival pallor. Normocephalic, atraumatic. No pharyngeal erythema. No thyromegaly. CARDIOVASCULAR: S1 and S2 present. No murmurs, rubs, or gallops. PULMONARY: Chest is clear to auscultation, no wheezing or crackles. ABDOMEN: Soft, nontender, nondistended, normoactive bowel sounds. No palpable organomegaly. Round and distended. Prominent blood vessels noted on the right lower abdomen. MUSCULOSKELETAL: No joint swelling or deformity. EXTREMITIES: No cyanosis, clubbing, or pedal edema. NEUROLOGICAL: Gross neurological examination did not reveal any focal deficits. SKIN: Patient has bilateral lower extremity chronic skin changes. There is erythma lower extremity on the left extending up to the groin. He has wound to outer aspect of right lower extremity with slough. He also reports wound to left lower leg, currently with kerlex dressing in place. Assessment and Plan Lower extremity cellulitis, present on admission, left greater than right secondary most likely to chronic diabetic ulcers, infectious disease has been consulted for further management. Hyponatremia hypovolemic Acute kidney injury most likely prerenal, recommend to hold off ARB and patient is being hydrated with IV fluids. 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 Hypothyroidism Diabetes Mellitus Hypertension currently hypotensive Chronic lower extremity lymphedema Hyperlipidemia History of asthma not in acute exacerbation History Factor 5 Leiden Deficiency Occasional alcohol use Gastroesophageal Reflux Disease Osteoarthritis Morbid Obesity GI prophylaxis DVT prophylaxis Full code Plan Continue IV fluids Hold losartan at this time Blood cultures pending Continue IV vancomycin, infectious disease has been placed on consultation Continue on oral anticoagulation Continue local wound care per Dr. Silva recommendations The impression and plan of care has been dictated by Nurse Linda Pr actitioner as directed. Dr. Darryn MD I have performed a history and physical examination and medical decision making of this patient, discussed the same with the dictator, and agree with the dictat ors assessment and plan as written, documented as a scribe. Based on total visit time, I have performed more than 50% of this visit. Past Medical History Past Medical History: Asthma, Blood Disorder, Cancer, Diabetes Mellitus, Deep Vein Thrombosis (DVT), GERD/Reflux, GI Bleed, Hyperlipidemia, Hypertension, Osteoarthritis (OA), Pneumonia, Pulmonary Embolus (PE), Thyroid Disorder Additional Past Medical History / Comment(s): occular migraines, SOB with activity, hx cellulitis x 5, clotting disorder-Factor V- Leiden, basal cell skin ca(folicular), heart murmur, kidney stones, edema rt leg, History of Any Multi-Drug Resistant Organisms: None Reported, MRSA Date of last positivie culture/infection: 2012 MDRO Source:: bilateral legs Past Surgical History: Cholecystectomy, Hernia Repair, Tonsillectomy Additional Past Surgical History / Comment(s): 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 Smoking Status: Former smoker Past Alcohol Use History: Occasional Additional Past Alcohol Use History / Comment(s): Started smoking at age 17(1962 ) and quit age 30(1975). Past Drug Use History: None Reported - Past Family History Mother Family Medical History: No Reported History Additional Family Medical History / Comment(s): . Father Family Medical History: No Reported History Additional Family Medical History / Comment(s): age 72. Medications and Allergies Home Medications Medication Instructions Recorded Confirmed Type Omeprazole [PriLOSEC] 20 mg PO HS 12/29/13 06/29/22 History Atorvastatin [Lipitor] 10 mg PO PC-LUNCH 10/04/17 06/29/22 History Levothyroxine Sodium [Synthroid] 200 mcg PO DAILY 10/20/19 06/29/22 History Montelukast Sodium [Singulair] 10 mg PO HS 10/20/19 06/29/22 History Albuterol Sulfate [Ventolin HFA] 2 puff INHALATION RT-Q4H PRN 01/06/20 06/29/22 History tiZANidine HCL [Zanaflex] 4 mg PO TID PRN 03/31/20 06/29/22 History Rivaroxaban [Xarelto] 20 mg PO DAILY@1600 05/03/21 06/29/22 History Pioglitazone [Actos] 15 mg PO DAILY 05/12/22 06/29/22 History dilTIAZem HCL [dilTIAZem [id number] 240 mg PO DAILY 05/12/22 06/29/22 History ER (CD)] Losartan [Cozaar] 50 mg PO DAILY 06/29/22 06/29/22 History Allergies Allergy/AdvReac Type Severity Reaction Status Date / Time Iodinated Contrast Media Allergy Anaphylaxis Verified 06/29/22 10:46 iodine Allergy Anaphylaxis Verified 06/29/22 10:46 latex Allergy see comment Verified 06/29/22 10:46 shellfish derived Allergy Anaphylaxis Verified 06/29/22 10:46 shrimp Allergy Anaphylaxis Verified 06/29/22 10:46 tuna oil Allergy Unknown Verified 06/29/22 10:46 codeine AdvReac Rapid Verified 06/29/22 10:46 Heart Rate lisinopril AdvReac Cough Verified 06/29/22 10:46 Physical Exam Vitals: Vital Signs Temp Pulse Pulse Resp BP BP BP 06/29/22 08:25 88/53 06/29/22 07:39 99.2 F 104 H 18 85/53 06/29/22 01:22 104 H 17 06/29/22 01:14 99.2 F 104 H 17 129/54 06/28/22 18:59 98.6 F 96 18 105/61 Pulse Ox 06/29/22 08:25 06/29/22 07:39 95 06/29/22 01:22 06/29/22 01:14 97 06/28/22 18:59 97 Intake and Output 06/28/22 06/29/22 06/29/22 22:59 06:59 14:59 Intake Total 118 Output Total 0 525 Balance 0 -407 Intake: Oral 118 Output: Urine 0 525 Other: Weight 140.614 kg 140.614 kg Results CBC & Chem 7: 06/28/22 22:17 06/28/22 22:17 Labs: Abnormal Lab Results - Last 24 Hours (Table) 06/28/22 06/28/22 Range/Units 22:17 22:17 WBC 15.0 H (3.8-10.6) k/uL RBC 4.14 L (4.30-5.90) m/uL Hgb 12.3 L (13.0-17.5) gm/dL Hct 37.4 L (39.0-53.0) % Neutrophils # 13.5 H (1.3-7.7) k/uL Lymphocytes # 0.6 L (1.0-4.8) k/uL Sodium 132 L (137-145) mmol/L Chloride 96 L (98-107) mmol/L BUN 39 H (9-20) mg/dL Creatinine 1.68 H (0.66-1.25) mg/dL Glucose 139 H (74-99) mg/dL Calcium 8.3 L (8.4-10.2) mg/dL Alkaline Phosphatase 139 H (38-126) U/L Albumin 3.3 L (3.5-5.0) g/dL Thrombosis Risk Factor Assmnt - Choose All That Apply Any of the Below Risk Factors Present?: Yes Each Factor Represents 1 point: Obesity (BMI >25) Each Risk Factor Represents 3 Points: Age 75 years or older Other congenital or acquired thrombophilia - If yes, enter type in comment: No Thrombosis Risk Factor Assessment Total Risk Factor Score: 4 Thrombosis Risk Factor Assessment Level: Moderate Risk Assessment and Plan Time with Patient: Less than 30
[2022-06-29] MEDS: RIVAROXABAN 20 MG TAB PO SCH (15:28)
[2022-06-29] MEDS: tiZANidine 4 MG TAB PO PRN (15:33)
[2022-06-29] MEDS: ALBUTEROL HFA INHALER INHALATION PRN ×2 (16:10→20:26)
[2022-06-29 17:09] LABS: Glucose,Whole Blood 176 mg/dL (70-110)
[2022-06-29] MEDS: SODIUM CHLORIDE 0.9% 1,000 ML IV SCH ×2 (19:39→20:12)
[2022-06-29] MEDS: MONTELUKAST 10 MG TAB PO SCH (20:12)
[2022-06-29] MEDS: VANCOMYCIN 2,500 MG in SODIUM CHLORIDE 0.9% 500 ML 500 ML IVPB SCH (20:12)
[2022-06-29 21:33] LABS: Glucose,Whole Blood 167 mg/dL (70-110)
[2022-06-30] MEDS ORDERED: VANCOMYCIN 2,000 MG in SODIUM CHLORIDE 0.9% 500 ML 500 ML IVPB SCH ×2
[2022-06-30] MEDS: SODIUM CHLORIDE 0.9% 1,000 ML IV SCH ×3 (00:38→18:51)
[2022-06-30] MEDS: tiZANidine 4 MG TAB PO PRN ×2 (04:37→16:24)
[2022-06-30] MEDS: LEVOTHYROXINE 100 MCG TAB PO SCH (05:59)
[2022-06-30 06:13] LABS: African American GFR (CKD) 73 (>60 ml/min/1.73 sqM); Anion Gap 7 mmol/L; Blood Urea Nitrogen 25 mg/dL (9-20); Calcium 7.5 mg/dL (8.4-10.2); Carbon Dioxide 24 mmol/L (22-30); Chloride 106 mmol/L (98-107); Glucose 167 mg/dL (74-99); Non-African American GFR(CKD) 63 (>60 ml/min/1.73 sqM); Potassium 3.8 mmol/L (3.5-5.1); Sodium 137 mmol/L (137-145)
[2022-06-30 06:14] LABS: Glucose,Whole Blood 195 mg/dL (70-110)
[2022-06-30] MEDS: INSULIN ASPART (NovoLOG) 100 UNIT/ML VIAL SQ SCH ×4 (06:16→20:50)
[2022-06-30] MEDS: ALBUTEROL HFA INHALER INHALATION PRN ×4 (08:17→21:00)
[2022-06-30 09:12] LABS: Basophils # (A) 0.06 X 10*3/uL (0.00-0.10); Basophils % (A) 0.7 %; Eosinophils # (A) 0.51 X 10*3/uL (0.04-0.35); HCT 31.6 % (39.6-50.0); HGB 9.8 g/dL (13.0-17.0); Immature Grans, Automated 2.1 %; Lymphocytes # (A) 0.71 X 10*3/uL (0.90-5.00); Lymphocytes % (A) 8.3 %; MCH 28.2 pg (27.0-32.0); MCV 91.1 fL (80.0-97.0); Mean Platelet Volume 9.4 fL (9.5-12.2); Monocytes # (A) 0.57 X 10*3/uL (0.20-1.00); Monocytes % (A) 6.7 %; NRBC Per 100 WBC 0 /100 WBCS (0.0-0.0); Neutrophils # (A) 6.48 X 10*3/uL (1.80-7.70); Neutrophils % (A) 76.2 %; Platelet Count 279 X 10*3/uL (140-440); RBC 3.47 X 10*6/uL (4.40-5.60); RDW 16.4 % (11.5-14.5); WBC 8.51 X 10*3/uL (4.50-10.00)
[2022-06-30] MEDS: FAMOTIDINE 20 MG/2 ML VIAL IV SCH (09:50)
[2022-06-30] MEDS: PIOGLITAZONE 15 MG TAB PO SCH (10:04)
--- NOTE | 2022-06-30 10:17 | P.CONS ---
History of Present Illness - Reason for Consult Consult date: 06/29/22 - History of Present Illness Patient is a 77-year-old male with a past medical history significant for bilateral lower extremity venous stasis ulcer and history of recurrent cellulitis patient is presenting to [facility] ER last night for evaluation of increasing pain swelling and drainage from bilateral lower extremity and this patient symptom has been going on for few days before presentation to the hospital patient mention he did have some leftover oral Keflex that he use however did not have any improvement patient been complaining of some dull aching pain especially to the right lower extremity wound area intensity is 5-6 out of 10 and no radiation did have mild drainage is foul- smelling with the symptom the patient was evaluated by the ER physician on arrival to the ER the patient was afebrile and no fever has been recorded subsequently patient did have white count of 15,000 with a left shift creatinine is 1.14 her liver enzymes are normal patient did have a blood cultures obtained which are currently pending patient did have a venous Doppler study that was negative for DVT patient was started on vancomycin and admitted to hospital infectious disease was consulted for further management of antibiotic therapy Past Medical History Past Medical History: Asthma, Blood Disorder, Cancer, Diabetes Mellitus, Deep Vein Thrombosis (DVT), GERD/Reflux, GI Bleed, Hyperlipidemia, Hypertension, Osteoarthritis (OA), Pneumonia, Pulmonary Embolus (PE), Thyroid Disorder Additional Past Medical History / Comment(s): occular migraines, SOB with activity, hx cellulitis x 5, clotting disorder-Factor V- Leiden, basal cell skin ca(folicular), heart murmur, kidney stones, edema rt leg, History of Any Multi-Drug Resistant Organisms: None Reported, MRSA Year Discovered:: 2012 MDRO Source:: bilateral legs Past Surgical History: Cholecystectomy, Hernia Repair, Tonsillectomy Additional Past Surgical History / Comment(s): 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 Smoking Status: Former smoker Past Alcohol Use History: Occasional Additional Past Alcohol Use History / Comment(s): Started smoking at age 17(1962) and quit age 30(1974). Past Drug Use History: None Reported - Past Family History Mother Family Medical History: No Reported History Additional Family Medical History / Comment(s): . Father Family Medical History: No Reported History Additional Family Medical History / Comment(s): age 72. Medications and Allergies Home Medications Medication Instructions Recorded Confirmed Type Omeprazole [PriLOSEC] 20 mg PO HS 12/29/13 06/29/22 History Atorvastatin [Lipitor] 10 mg PO PC-LUNCH 10/04/17 06/29/22 History Levothyroxine Sodium [Synthroid] 200 mcg PO DAILY 10/20/19 06/29/22 History Montelukast Sodium [Singulair] 10 mg PO HS 10/20/19 06/29/22 History Albuterol Sulfate [Ventolin HFA] 2 puff INHALATION RT-Q4H PRN 01/06/20 06/29/22 History tiZANidine HCL [Zanaflex] 4 mg PO TID PRN 03/31/20 06/29/22 History Rivaroxaban [Xarelto] 20 mg PO DAILY@1600 05/03/21 06/29/22 History Pioglitazone [Actos] 15 mg PO DAILY 05/12/22 06/29/22 History dilTIAZem HCL [dilTIAZem [id number] 240 mg PO DAILY 05/12/22 06/29/22 History ER (CD)] Losartan [Cozaar] 50 mg PO DAILY 06/29/22 06/29/22 History Allergies Allergy/AdvReac Type Severity Reaction Status Date / Time Iodinated Contrast Media Allergy Anaphylaxis Verified 06/29/22 10:46 iodine Allergy Anaphylaxis Verified 06/29/22 10:46 latex Allergy see comment Verified 06/29/22 10:46 shellfish derived Allergy Anaphylaxis Verified 06/29/22 10:46 shrimp Allergy Anaphylaxis Verified 06/29/22 10:46 tuna oil Allergy Unknown Verified 06/29/22 10:46 codeine AdvReac Rapid Verified 06/29/22 10:46 Heart Rate lisinopril AdvReac Cough Verified 06/29/22 10:46 Physical Exam Vitals: Vital Signs Temp Pulse Pulse Resp BP BP BP 06/29/22 08:25 88/53 06/29/22 07:39 99.2 F 104 H 18 85/53 06/29/22 01:22 104 H 17 11/03/22 01:14 99.2 F 104 H 17 129/54 06/28/22 18:59 98.6 F 96 18 105/61 Pulse Ox 06/29/22 08:25 06/29/22 07:39 95 06/29/22 01:22 06/29/22 01:14 97 06/28/22 18:59 97 Intake and Output 06/28/22 06/29/22 06/29/22 22:59 06:59 14:59 Intake Total 118 Output Total 0 525 Balance 0 -407 Intake: Oral 118 Output: Urine 0 525 Other: Weight 140.614 kg 140.614 kg Results CBC & Chem 7: 06/30/22 05:24 06/30/22 05:24 Labs: Abnormal Lab Results - Last 24 Hours (Table) 06/28/22 06/28/22 Range/Units 22:17 22:17 WBC 15.0 H (3.8-10.6) k/uL RBC 4.14 L (4.30-5.90) m/uL Hgb 12.3 L (13.0-17.5) gm/dL Hct 37.4 L (39.0-53.0) % Neutrophils # 13.5 H (1.3-7.7) k/uL Lymphocytes # 0.6 L (1.0-4.8) k/uL Sodium 132 L (137-145) mmol/L Chloride 96 L (98-107) mmol/L BUN 39 H (9-20) mg/dL Creatinine 1.68 H (0.66-1.25) mg/dL Glucose 139 H (74-99) mg/dL Calcium 8.3 L (8.4-10.2) mg/dL Alkaline Phosphatase 139 H (38-126) U/L Albumin 3.3 L (3.5-5.0) g/dL Assessment and Plan Plan: 1patient with bilateral lower extremity venous stasis ulcer and cellulitis right greater than the left in this patient did have evidence of slough tissue especially to the right lower extremity with some surrounding redness we need to cover for the gram-positive skin noe patient seem to have failed outpatient oral Keflex therapy. 2local wound care to the left lower extremity with a dry Aquacel silver dressing and Zeus wrap. 3local wound care to the right lower extremity wound with the Medihoney followed by moist dressing change daily. 4patient to continue with vancomycin pharmacy to dose while watching his kidney function closely. We will follow on clinical condition and cultures to further adjust medication if needed Thank you for this consultation will follow this patient along with you Time with Patient: Greater than 30
[2022-06-30 12:27] LABS: Glucose,Whole Blood 130 mg/dL (70-110)
[2022-06-30] MEDS: ATORVASTATIN 10 MG TAB PO SCH (13:33)
--- NOTE | 2022-06-30 15:20 | P.PN ---
Subjective Progress Note Date: 06/30/22 This is a 77 year old male who follows with Dr. Tatyana Mora, past medical history includes diabetes, DVT, PE, GI bleed, hypertension, hyperlipidemia, thyroid disorder, factor v leiden clotting disorder, heart murmur. 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 He presents with concern for increased lower extremity edema that has been worse over the past couple of days. He was concerned about cellulitis and came to the hospital for antibiotics. He does follow with Dr Ratliff at wound center outpatient for a chronic wound to the left lower leg and also he has wound with drainage right lower leg. He began taking an old antibiotic prescription at home. He was recently admitted to this facility 05/12/22 to 05/23/22 for acute kidney injury during that admission he was treated for right leg cellulitis and acute kidney injury he was treated and discharged home on oral keflex. He had staphylococcus aureus, proteus penneri, and alcaligen faecalis on his previous wound culture. 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 He denies fever or chills. Denies shortness of breath. Patient presents with sodium level of 132 and creatinine is increased up to 1.68. Has some leukocytosis 15.0. He is admitted for lower extremity cellulitis and Dr. Silva has been placed on consultation. Patient received a dose of IV unasyn and started on empiric antibiotic coverage with IV vancomycin. Patient is receiving IV fluids at 130 cc per hour and blood pressure remains on the lower side 88 systolic. Venous doppler of left leg negative for DVT. There is question of possible allergic reaction to lasix his previous hospital admission. 06/30/22 Patient is evaluated today sitting up in chair. No acute events overnight. He continues to report pain about 6-7/10 to his left lower extremity and tender to touch. He continues on IV vancomycin. Local wound care being done. Blood cultures are pending. Blood pressure has improved to 139/55 and IV fluids have been decreased. Labs Today showing white count of 8.51, hgb 9.8, sodium 137, potassium 3.8, BUN 25, creatinine 1.14. Blood glucose in the 130s, calcium 7.5. Remains afebrile. Review of Systems Constitutional: Denied any fatigue denied any fever. Cardio vascular: denied any chest pain, palpitations Gastrointestinal: denied any nausea, vomiting, diarrhea Pulmonary: Denied any shortness of breath, denies cough Neurologic denied any new focal deficits All inpatient medications were reviewed and appropriate changes in these medications as dictated in the interval history and assessment and plan. PHYSICAL EXAMINATION: GENERAL: The patient is alert and oriented x3, not in any acute distress. Well developed, well nourished. Obese. HEENT: Pupils are round and equally reacting to light. EOMI. No scleral icterus. No conjunctival pallor. Normocephalic, atraumatic. No pharyngeal erythema. No thyromegaly. CARDIOVASCULAR: S1 and S2 present. No murmurs, rubs, or gallops. PULMONARY: Chest is clear to auscultation, no wheezing or crackles. ABDOMEN: Soft, nontender, nondistended, normoactive bowel sounds. No palpable organomegaly. Round and distended. Prominent blood vessels noted on the right lo wer abdomen. MUSCULOSKELETAL: No joint swelling or deformity. EXTREMITIES: No cyanosis, clubbing, or pedal edema. NEUROLOGICAL: Gross neurological examination did not reveal any focal deficits. SKIN: Patient has bilateral lower extremity chronic skin changes. There is erythma lower extremity on the left extending up to the groin. He has wound to outer aspect of right lower extremity with slough. He also reports wound to left lower leg. Bilateral venous stasis ulcer. Assessment and Plan Lower extremity cellulitis secondary to bilateral lower extremity venous stasis ulcer, present on admission Hyponatremia hypovolemic Acute kidney injury most likely prerenal, recommend to hold off ARB and patient is being hydrated with IV fluids. 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 Hypothyroidism Diabetes Mellitus Hypertension currently hypotensive Chronic lower extremity lymphedema Hyperlipidemia History of asthma not in acute exacerbation History Factor 5 Leiden Deficiency Occasional alcohol use Gastroesophageal Reflux Disease Osteoarthritis Morbid Obesity GI prophylaxis DVT prophylaxis Full code Plan Decrease IV fluids Hold losartan at this time Blood cultures pending Continue IV vancomycin, infectious disease following Continue local wound care The impression and plan of care has been dictated by Radhika Posadas, Nurse Practitioner as directed. Dr. Darryn MD I have performed a history and physical examination and medical decision making of this patient, discussed the same with the dictator, and agree with the dictators assessment and plan as written, documented as a scribe. Based on total visit time, I have performed more than 50% of this visit. Objective - Vital Signs Vital signs: Vital Signs Temp 97.7 F 06/30/22 13:27 Pulse 92 06/30/22 13:27 Resp 19 06/30/22 13:27 BP 139/55 06/30/22 13:27 Pulse Ox 97 06/30/22 13:27 FiO2 Intake & Output 06/29/22 06/30/22 06/30/22 18:59 06:59 18:59 Intake Total 118 600 Output Total 925 1240 225 Balance -807 -1240 375 Intake: Oral 118 600 Output: Urine 925 1240 225 Other: Voiding Method Urinal Urinal # Voids 1 - Labs CBC & Chem 7: 06/30/22 05:24 06/30/22 05:24 Labs: Abnormal Lab Results - Last 24 Hours (Table) 06/28/22 06/29/22 06/29/22 Range/Units 22:17 17:08 21:31 RBC (4.40-5.60) X 10*6/uL Hgb (13.0-17.0) g/dL Hct (39.6-50.0) % MCHC (32.0-37.0) g/dL RDW (11.5-14.5) % MPV (9.5-12.2) fL Immature Gran # (0.00-0.04) X 10*3/uL Lymphocytes # (0.90-5.00) X 10*3/uL Eosinophils # (0.04-0.35) X 10*3/uL BUN (9-20) mg/dL Glucose (74-99) mg/dL POC Glucose (mg/dL) 176 H 167 H (70-110) mg/dL Hemoglobin A1c 6.5 H (0.0-6.0) % Calcium (8.4-10.2) mg/dL 06/30/22 06/30/22 06/30/22 Range/Units 05:24 05:24 06:02 RBC 3.47 L (4.40-5.60) X 10*6/uL Hgb 9.8 L (13.0-17.0) g/dL Hct 31.6 L (39.6-50.0) % MCHC 31.0 L (32.0-37.0) g/dL RDW 16.4 H (11.5-14.5) % MPV 9.4 L (9.5-12.2) fL Immature Gran # 0.18 H (0.00-0.04) X 10*3/uL Lymphocytes # 0.71 L (0.90-5.00) X 10*3/uL Eosinophils # 0.51 H (0.04-0.35) X 10*3/uL BUN 25 H (9-20) mg/dL Glucose 167 H (74-99) mg/dL POC Glucose (mg/dL) 195 H (70-110) mg/dL Hemoglobin A1c (0.0-6.0) % Calcium 7.5 L (8.4-10.2) mg/dL 06/30/22 Range/Units 12:23 RBC (4.40-5.60) X 10*6/uL Hgb (13.0-17.0) g/dL Hct (39.6-50.0) % MCHC (32.0-37.0) g/dL RDW (11.5-14.5) % MPV (9.5-12.2) fL Immature Gran # (0.00-0.04) X 10*3/uL Lymphocytes # (0.90-5.00) X 10*3/uL Eosinophils # (0.04-0.35) X 10*3/uL BUN (9-20) mg/dL Glucose (74-99) mg/dL POC Glucose (mg/dL) 130 H (70-110) mg/dL Hemoglobin A1c (0.0-6.0) % Calcium (8.4-10.2) mg/dL Microbiology - Last 24 Hours (Table) 06/28/22 23:45 Blood Culture - Preliminary Blood No Growth after 24 hours 06/28/22 23:30 Blood Culture - Preliminary Blood No Growth after 24 hours Assessment and Plan Time with Patient: Less than 30
[2022-06-30] MEDS: RIVAROXABAN 20 MG TAB PO SCH (16:24)
[2022-06-30 17:24] LABS: Glucose,Whole Blood 190 mg/dL (70-110)
[2022-06-30 20:23] LABS: Glucose,Whole Blood 196 mg/dL (70-110)
[2022-06-30] MEDS: VANCOMYCIN 2,500 MG in SODIUM CHLORIDE 0.9% 500 ML 500 ML IVPB SCH (20:49)
[2022-06-30] MEDS: MONTELUKAST 10 MG TAB PO SCH (20:50)
[2022-07-01] MEDS: tiZANidine 4 MG TAB PO PRN ×2 (00:16→20:47)
[2022-07-01] MEDS: LEVOTHYROXINE 100 MCG TAB PO SCH (10:49)
[2022-07-01] MEDS: FAMOTIDINE 20 MG TAB PO SCH (10:49)
[2022-07-01] MEDS: PIOGLITAZONE 15 MG TAB PO SCH (10:49)
[2022-07-01] MEDS: SODIUM CHLORIDE 0.9% 1,000 ML IV SCH ×2 (10:49→20:45)
[2022-07-01] MEDS: INSULIN ASPART (NovoLOG) 100 UNIT/ML VIAL SQ SCH ×4 (10:49→20:45)
[2022-07-01 11:37] LABS: Glucose,Whole Blood 165 mg/dL (70-110)
[2022-07-01 11:37] LABS: Glucose,Whole Blood 208 mg/dL (70-110)
[2022-07-01 12:35] LABS: Glucose,Whole Blood 164 mg/dL (70-110)
[2022-07-01] MEDS: ATORVASTATIN 10 MG TAB PO SCH (14:12)
[2022-07-01 16:30] LABS: Glucose,Whole Blood 168 mg/dL (70-110)
[2022-07-01] MEDS: CEFEPIME 2 GM in SODIUM CHLORIDE 0.9% 100 ML IVPB SCH (17:11)
[2022-07-01] MEDS: RIVAROXABAN 20 MG TAB PO SCH (17:12)
[2022-07-01] MEDS: ALBUTEROL HFA INHALER INHALATION PRN (19:10)
[2022-07-01 20:13] LABS: Glucose,Whole Blood 174 mg/dL (70-110)
[2022-07-01] MEDS: VANCOMYCIN 2,500 MG in SODIUM CHLORIDE 0.9% 500 ML 500 ML IVPB SCH (20:45)
[2022-07-01] MEDS: MONTELUKAST 10 MG TAB PO SCH (20:46)
--- NOTE | 2022-07-02 00:26 | P.PN ---
Subjective Progress Note Date: 06/30/22 Principal diagnosis: Bilateral lower extremity ulcer and cellulitis Patient is a 77-year-old male with a past medical history significant for bilateral lower extremity venous stasis ulcer and history of recurrent cellulitis presented to hospital with another episode of cellulitis. On today's evaluation that is 06/30/2022, the patient denies having any fever or any chills the patient is breathing comfortably denies any chest pain or shortness of breath or cough, lower extremity pain and swelling has been about the same and denies any worsening drainage Objective - Vital Signs Vital signs: Vital Signs Temp 97.7 F 06/30/22 13:27 Pulse 92 06/30/22 13:27 Resp 19 06/30/22 13:27 BP 139/55 06/30/22 13:27 Pulse Ox 97 06/30/22 13:27 FiO2 Intake & Output 06/29/22 06/30/22 06/30/22 18:59 06:59 18:59 Intake Total 118 600 Output Total 925 1240 225 Balance -807 -1240 375 Intake: Oral 118 600 Output: Urine 925 1240 225 Other: Voiding Method Urinal Urinal # Voids 1 - Exam GENERAL DESCRIPTION: An elderly male lying in bed in no distress RESPIRATORY SYSTEM: Unlabored breathing , decreased breath sounds at bases HEART: S1 S2 regular rate and rhythm , ABDOMEN: Soft , no tenderness EXTREMITIES: Bilateral lower extremity and currently wrapped no drainage on the dressing - Labs CBC & Chem 7: 06/30/22 05:24 06/30/22 05:24 Labs: Abnormal Lab Results - Last 24 Hours (Table) 06/29/22 06/29/22 06/30/22 Range/Units 17:08 21:31 05:24 RBC (4.40-5.60) X 10*6/uL Hgb (13.0-17.0) g/dL Hct (39.6-50.0) % MCHC (32.0-37.0) g/dL RDW (11.5-14.5) % MPV (9.5-12.2) fL Immature Gran # (0.00-0.04) X 10*3/uL Lymphocytes # (0.90-5.00) X 10*3/uL Eosinophils # (0.04-0.35) X 10*3/uL BUN 25 H (9-20) mg/dL Glucose 167 H (74-99) mg/dL POC Glucose (mg/dL) 176 H 167 H (70-110) mg/dL Calcium 7.5 L (8.4-10.2) mg/dL 06/30/22 06/30/22 06/30/22 Range/Units 05:24 06:02 12:23 RBC 3.47 L (4.40-5.60) X 10*6/uL Hgb 9.8 L (13.0-17.0) g/dL Hct 31.6 L (39.6-50.0) % MCHC 31.0 L (32.0-37.0) g/dL RDW 16.4 H (11.5-14.5) % MPV 9.4 L (9.5-12.2) fL Immature Gran # 0.18 H (0.00-0.04) X 10*3/uL Lymphocytes # 0.71 L (0.90-5.00) X 10*3/uL Eosinophils # 0.51 H (0.04-0.35) X 10*3/uL BUN (9-20) mg/dL Glucose (74-99) mg/dL POC Glucose (mg/dL) 195 H 130 H (70-110) mg/dL Calcium (8.4-10.2) mg/dL Microbiology - Last 24 Hours (Table) 06/28/22 23:45 Blood Culture - Preliminary Blood No Growth after 24 hours 06/28/22 23:30 Blood Culture - Preliminary Blood No Growth after 24 hours Assessment and Plan (1) Cellulitis of left lower extremity Current Visit: Yes Status: Acute Code(s): L03.116 - CELLULITIS OF LEFT LOWER LIMB SNOMED Code(s): 971178468 (2) Cellulitis of right leg Current Visit: No Status: Acute Code(s): L03.115 - CELLULITIS OF RIGHT LOWER LIMB SNOMED Code(s): 278864071 Plan: 1patient with bilateral lower extremity venous stasis ulcer and cellulitis right greater than the left in this patient did have evidence of slough tissue especially to the right lower extremity with some surrounding redness we need to cover for the gram-positive skin noe patient seem to have failed outpatient oral Keflex therapy. 2local wound care to the left lower extremity with a dry Aquacel silver dressing and Zeus wrap. 3local wound care to the right lower extremity wound with the Medihoney followed by moist dressing change daily. 4patient to continue with vancomycin pharmacy to dose and monitor his clinical course closely Time with Patient: Less than 30
--- NOTE | 2022-07-02 00:29 | P.PN ---
Subjective Progress Note Date: 07/01/22 Principal diagnosis: Bilateral lower extremity ulcer and cellulitis Patient is a 77-year-old male with a past medical history significant for bilateral lower extremity venous stasis ulcer and history of recurrent cellulitis presented to hospital with another episode of cellulitis. On today's evaluation that is 07/01/2022, the patient remains to be febrile the patient is breathing comfortably on room air denies any chest pain or shortness of breath or cough, patient has been complaining of more pain and redness to the left lower extremity Objective - Vital Signs Vital signs: Vital Signs Temp 97.9 F 07/01/22 14:18 Pulse 78 07/01/22 14:18 Resp 20 07/01/22 14:18 BP 142/81 07/01/22 14:18 Pulse Ox 97 07/01/22 14:18 FiO2 Intake & Output 06/30/22 07/01/22 07/01/22 18:59 06:59 18:59 Intake Total 718 360 Output Total 725 Balance -7 360 Intake: Oral 718 360 Output: Urine 725 Other: Voiding Method Urinal Urinal # Voids 1 1 # Bowel Movements 1 - Exam GENERAL DESCRIPTION: An elderly male lying in bed in no distress RESPIRATORY SYSTEM: Unlabored breathing , decreased breath sounds at bases HEART: S1 S2 regular rate and rhythm , ABDOMEN: Soft , no tenderness EXTREMITIES: Bilateral lower extremity and currently wrapped, patient noticed to have more redness to the left leg - Labs CBC & Chem 7: 06/30/22 05:24 06/30/22 05:24 Labs: Abnormal Lab Results - Last 24 Hours (Table) 06/30/22 06/30/22 07/01/22 Range/Units 17:23 20:22 06:59 POC Glucose (mg/dL) 190 H 196 H 165 H (70-110) mg/dL 07/01/22 07/01/22 Range/Units 07:27 12:32 POC Glucose (mg/dL) 208 H 164 H (70-110) mg/dL Microbiology - Last 24 Hours (Table) 06/28/22 23:45 Blood Culture - Preliminary Blood No Growth after 48 hours 06/28/22 23:30 Blood Culture - Preliminary Blood No Growth after 48 hours Assessment and Plan (1) Cellulitis of left lower extremity Current Visit: Yes Status: Acute Code(s): L03.116 - CELLULITIS OF LEFT LOWER LIMB SNOMED Code(s): 335650304 (2) Cellulitis of right leg Current Visit: No Status: Acute Code(s): L03.115 - CELLULITIS OF RIGHT LOWER LIMB SNOMED Code(s): 323585352 Plan: 1patient with bilateral lower extremity venous stasis ulcer and cellulitis right greater than the left in this patient did have evidence of slough tissue especially to the right lower extremity with some surrounding redness we need to cover for the gram-positive skin noe patient seem to have failed outpatient oral Keflex therapy. 2local wound care to the left lower extremity with a dry Aquacel silver dressing and Zeus wrap. 3local wound care to the right lower extremity wound with the Medihoney followed by moist dressing change daily. 4patient to continue with vancomycin , however we will add cefepime in view of slight worsening of cellulitis to the left lower extremity to cover for gram- negative Time with Patient: Less than 30
[2022-07-02] MEDS: CEFEPIME 2 GM in SODIUM CHLORIDE 0.9% 100 ML IVPB SCH ×4 (00:34→17:04)
[2022-07-02] MEDS: LEVOTHYROXINE 100 MCG TAB PO SCH (05:52)
[2022-07-02] MEDS: HYDROcodone/APAP 5-325MG 1 EACH TAB PO PRN ×2 (06:17→21:42)
[2022-07-02] MEDS: INSULIN ASPART (NovoLOG) 100 UNIT/ML VIAL SQ SCH ×4 (06:20→21:41)
[2022-07-02 06:22] LABS: Glucose,Whole Blood 137 mg/dL (70-110)
[2022-07-02 07:38] LABS: African American GFR (CKD) >90 (>60 ml/min/1.73 sqM); Anion Gap 9 mmol/L; Blood Urea Nitrogen 13 mg/dL (9-20); Calcium 8.2 mg/dL (8.4-10.2); Carbon Dioxide 24 mmol/L (22-30); Chloride 105 mmol/L (98-107); Glucose 144 mg/dL (74-99); Non-African American GFR(CKD) 85 (>60 ml/min/1.73 sqM); Potassium 4.2 mmol/L (3.5-5.1); Sodium 138 mmol/L (137-145)
[2022-07-02] MEDS: FAMOTIDINE 20 MG TAB PO SCH (08:51)
[2022-07-02] MEDS: PIOGLITAZONE 15 MG TAB PO SCH (08:51)
[2022-07-02 11:22] LABS: Basophils # (A) 0.06 X 10*3/uL (0.00-0.10); Basophils % (A) 0.6 %; Eosinophils % (A) 5.7 %; HCT 35.6 % (39.6-50.0); HGB 11.2 g/dL (13.0-17.0); Immature Grans, Automated 4.7 %; Lymphocytes # (A) 0.75 X 10*3/uL (0.90-5.00); Lymphocytes % (A) 7.1 %; MCH 28.4 pg (27.0-32.0); MCHC 31.5 g/dL (32.0-37.0); MCV 90.1 fL (80.0-97.0); Mean Platelet Volume 9.2 fL (9.5-12.2); Monocytes # (A) 0.56 X 10*3/uL (0.20-1.00); Monocytes % (A) 5.3 %; NRBC Per 100 WBC 0 /100 WBCS (0.0-0.0); Neutrophils # (A) 8.04 X 10*3/uL (1.80-7.70); Neutrophils % (A) 76.6 %; Platelet Count 360 X 10*3/uL (140-440); RBC 3.95 X 10*6/uL (4.40-5.60); RDW 16.6 % (11.5-14.5)
[2022-07-02 12:06] LABS: Glucose,Whole Blood 168 mg/dL (70-110)
[2022-07-02] MEDS: ATORVASTATIN 10 MG TAB PO SCH (14:28)
[2022-07-02] MEDS: VANCOMYCIN 2,000 MG in SODIUM CHLORIDE 0.9% 500 ML 500 ML IVPB SCH (14:29)
[2022-07-02] MEDS: SODIUM CHLORIDE 0.9% 1,000 ML IV SCH ×2 (14:29→21:43)
[2022-07-02] MEDS: RIVAROXABAN 20 MG TAB PO SCH (15:59)
[2022-07-02 17:10] LABS: Glucose,Whole Blood 140 mg/dL (70-110)
[2022-07-02 20:15] LABS: Glucose,Whole Blood 155 mg/dL (70-110)
[2022-07-02] MEDS: MONTELUKAST 10 MG TAB PO SCH (21:42)
--- NOTE | 2022-07-02 22:38 | P.PN ---
Subjective Progress Note Date: 07/01/22 This is a 77 year old male who follows with Dr. Tatyana Mora, past medical history includes diabetes, DVT, PE, GI bleed, hypertension, hyperlipidemia, thyroid disorder, factor v leiden clotting disorder, heart murmur. 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 He presents with concern for increased lower extremity edema that has been worse over the past couple of days. He was concerned about cellulitis and came to the hospital for antibiotics. He does follow with Dr Ratliff at wound center outpatient for a chronic wound to the left lower leg and also he has wound with drainage right lower leg. He began taking an old antibiotic prescription at home. He was recently admitted to this facility 05/12/22 to 05/23/22 for acute kidney injury during that admission he was treated for right leg cellulitis and acute kidney injury he was treated and discharged home on oral keflex. He had staphylococcus aureus, proteus penneri, and alcaligen faecalis on his previous wound culture. 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 He denies fever or chills. Denies shortness of breath. Patient presents with sodium level of 132 and creatinine is increased up to 1.68. Has some leukocytosis 15.0. He is admitted for lower extremity cellulitis and Dr. Silva has been placed on consultation. Patient received a dose of IV unasyn and started on empiric antibiotic coverage with IV vancomycin. Patient is receiving IV fluids at 130 cc per hour and blood pressure remains on the lower side 88 systolic. Venous doppler of left leg negative for DVT. There is question of possible allergic reaction to lasix his previous hospital admission. 06/30/22 Patient is evaluated today sitting up in chair. No acute events overnight. He continues to report pain about 6-7/10 to his left lower extremity and tender to touch. He continues on IV vancomycin. Local wound care being done. Blood cultures are pending. Blood pressure has improved to 139/55 and IV fluids have been decreased. Labs Today showing white count of 8.51, hgb 9.8, sodium 137, potassium 3.8, BUN 25, creatinine 1.14. Blood glucose in the 130s, calcium 7.5. Remains afebrile. 07/01/2022 Patient is currently lying in bed. Awake alert and oriented x3. Still complains of left lower extremity pain and swelling and redness. No fever no chills. No cough or sputum production. No nausea vomiting abdominal pain or diarrhea. Continues on antibiotics in the form of IV vancomycin. Blood sugars controlled. Current medications reviewed. Review of Systems Constitutional: Denied any fatigue denied any fever. Cardio vascular: denied any chest pain, palpitations Gastrointestinal: denied any nausea, vomiting, diarrhea Pulmonary: Denied any shortness of breath, denies cough Neurologic denied any new focal deficits All inpatient medications were reviewed and appropriate changes in these medications as dictated in the interval history and assessment and plan. PHYSICAL EXAMINATION: GENERAL: The patient is alert and oriented x3, not in any acute distress. Well developed, well nourished. Obese. HEENT: Pupils are round and equally reacting to light. EOMI. No scleral icterus. No conjunctival pallor. Normocephalic, atraumatic. No pharyngeal erythema. No thyromegaly. CARDIOVASCULAR: S1 and S2 present. No murmurs, rubs, or gallops. PULMONARY: Chest is clear to auscultation, no wheezing or crackles. ABDOMEN: Soft, nontender, nondistended, normoactive bowel sounds. No palpable organomegaly. Round and distended. Prominent blood vessels noted on the right lower abdomen. MUSCULOSKELETAL: No joint swelling or deformity. EXTREMITIES: No cyanosis, clubbing, or pedal edema. NEUROLOGICAL: Gross neurological examination did not reveal any focal deficits. SKIN: Patient has bilateral lower extremity chronic skin changes. There is erythma lower extremity on the left extending up to the groin. He has wound to outer aspect of right lower extremity with slough. He also reports wound to left lower leg. Bilateral venous stasis ulcer. Assessment and Plan Lower extremity cellulitis secondary to bilateral lower extremity venous stasis ulcer, present on admission Hyponatremia hypovolemic. Improved. Acute kidney injury most likely prerenal, recommend to hold off ARB and patient is being hydrated with IV fluids. 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 Hypothyroidism Diabetes Mellitus Hypertension currently hypotensive Chronic lower extremity lymphedema Hyperlipidemia History of asthma not in acute exacerbation History Factor 5 Leiden Deficiency Occasional alcohol use Gastroesophageal Reflux Disease Osteoarthritis Morbid Obesity GI prophylaxis DVT prophylaxis Full code Plan Decrease IV fluids Hold losartan at this time Blood cultures no growth sofar Continue IV vancomycin, infectious disease following Continue local wound care Objective - Vital Signs Vital signs: Vital Signs Temp 97.9 F 07/01/22 14:18 Pulse 78 07/01/22 14:18 Resp 20 07/01/22 14:18 BP 142/81 07/01/22 14:18 Pulse Ox 97 07/01/22 14:18 FiO2 Intake & Output 07/01/22 07/01/22 07/02/22 06:59 18:59 05:59 Intake Total 480 Balance 480 Intake: Oral 480 Other: Voiding Method Urinal Urinal # Voids 1 - Labs CBC & Chem 7: 07/02/22 06:57 07/02/22 06:57 Labs: Abnormal Lab Results - Last 24 Hours (Table) 06/30/22 07/01/22 07/01/22 Range/Units 20:22 06:59 07:27 POC Glucose (mg/dL) 196 H 165 H 208 H (70-110) mg/dL 07/01/22 07/01/22 Range/Units 12:32 16:28 POC Glucose (mg/dL) 164 H 168 H (70-110) mg/dL Microbiology - Last 24 Hours (Table) 06/28/22 23:45 Blood Culture - Preliminary Blood No Growth after 48 hours 06/28/22 23:30 Blood Culture - Preliminary Blood No Growth after 48 hours
--- NOTE | 2022-07-02 22:39 | P.PN ---
Subjective Progress Note Date: 07/02/22 This is a 77 year old male who follows with Dr. Tatyana Mora, past medical history includes diabetes, DVT, PE, GI bleed, hypertension, hyperlipidemia, thyroid disorder, factor v leiden clotting disorder, heart murmur. 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 He presents with concern for increased lower extremity edema that has been worse over the past couple of days. He was concerned about cellulitis and came to the hospital for antibiotics. He does follow with Dr Ratliff at wound center outpatient for a chronic wound to the left lower leg and also he has wound with drainage right lower leg. He began taking an old antibiotic prescription at home. He was recently admitted to this facility 05/12/22 to 05/23/22 for acute kidney injury during that admission he was treated for right leg cellulitis and acute kidney injury he was treated and discharged home on oral keflex. He had staphylococcus aureus, proteus penneri, and alcaligen faecalis on his previous wound culture. 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 He denies fever or chills. Denies shortness of breath. Patient presents with sodium level of 132 and creatinine is increased up to 1.68. Has some leukocytosis 15.0. He is admitted for lower extremity cellulitis and Dr. Silva has been placed on consultation. Patient received a dose of IV unasyn and started on empiric antibiotic coverage with IV vancomycin. Patient is receiving IV fluids at 130 cc per hour and blood pressure remains on the lower side 88 systolic. Venous doppler of left leg negative for DVT. There is question of possible allergic reaction to lasix his previous hospital admission. 06/30/22 Patient is evaluated today sitting up in chair. No acute events overnight. He continues to report pain about 6-7/10 to his left lower extremity and tender to touch. He continues on IV vancomycin. Local wound care being done. Blood cultures are pending. Blood pressure has improved to 139/55 and IV fluids have been decreased. Labs Today showing white count of 8.51, hgb 9.8, sodium 137, potassium 3.8, BUN 25, creatinine 1.14. Blood glucose in the 130s, calcium 7.5. Remains afebrile. 07/01/2022 Patient is currently lying in bed. Awake alert and oriented x3. Still complains of left lower extremity pain and swelling and redness. No fever no chills. No cough or sputum production. No nausea vomiting abdominal pain or diarrhea. Continues on antibiotics in the form of IV vancomycin. Blood sugars controlled. 07/02/2022 Patient is resting well. Pain is controlled with Cornell 5. Patient has been afebrile. Hemodynamically stable and is currently on room air saturating at 96%. No headache or dizziness or lightheadedness. No cough or sputum production. No chest pain or shortness of breath. Still having left lower extremity redness and swelling and pain., Mainly in the thigh region. Continued on wound care. Laboratory data showed WBC 10.4 hemoglobin 11.1 platelets 360 Sodium 138 potassium 4.2 chloride 105 bicarb is 24 BUN 13 and creatinine 0.87 and calcium 8.2 Current medications reviewed. Review of Systems Constitutional: Denied any fatigue denied any fever. Cardio vascular: denied any chest pain, palpitations Gastrointestinal: denied any nausea, vomiting, diarrhea Pulmonary: Denied any shortness of breath, denies cough Neurologic denied any new focal deficits All inpatient medications were reviewed and appropriate changes in these medications as dictated in the interval history and assessment and plan. PHYSICAL EXAMINATION: GENERAL: The patient is alert and oriented x3, not in any acute distress. Well developed, well nourished. Obese. HEENT: Pupils are round and equally reacting to light. EOMI. No scleral icterus. No conjunctival pallor. Normocephalic, atraumatic. No pharyngeal erythema. No thyromegaly. CARDIOVASCULAR: S1 and S2 present. No murmurs, rubs, or gallops. PULMONARY: Chest is clear to auscultation, no wheezing or crackles. ABDOMEN: Soft, nontender, nondistended, normoactive bowel sounds. No palpable organomegaly. Round and distended. Prominent blood vessels noted on the right lower abdomen. MUSCULOSKELETAL: No joint swelling or deformity. EXTREMITIES: No cyanosis, clubbing, or pedal edema. NEUROLOGICAL: Gross neurological examination did not reveal any focal deficits. SKIN: Patient has bilateral lower extremity chronic skin changes. There is e rythma lower extremity on the left extending up to the groin. He has wound to outer aspect of right lower extremity with slough. He also reports wound to left lower leg. Bilateral venous stasis ulcer. Assessment and Plan Lower extremity cellulitis secondary to bilateral lower extremity venous stasis ulcer, present on admission Hyponatremia hypovolemic. Improved. Acute kidney injury most likely prerenal, recommend to hold off ARB and patient is being hydrated with IV fluids. 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 Hypothyroidism Diabetes Mellitus Hypertension currently hypotensive Chronic lower extremity lymphedema Hyperlipidemia History of asthma not in acute exacerbation History Factor 5 Leiden Deficiency Occasional alcohol use Gastroesophageal Reflux Disease Osteoarthritis Morbid Obesity GI prophylaxis DVT prophylaxis Full code Plan Decrease IV fluids Hold losartan at this time Blood cultures no growth sofar Continue IV vancomycin, infectious disease following Continue local wound care Objective - Vital Signs Vital signs: Vital Signs Temp 98.3 F 07/02/22 14:00 Pulse 89 07/02/22 14:00 Resp 18 07/02/22 14:00 BP 134/75 07/02/22 14:00 Pulse Ox 96 07/02/22 14:00 FiO2 Intake & Output 07/01/22 07/02/22 07/02/22 19:59 06:59 18:59 Intake Total Output Total 375 Balance -375 Intake: Oral Output: Urine 375 Other: Voiding Method Urinal # Voids - Labs CBC & Chem 7: 07/02/22 06:57 07/02/22 06:57 Labs: Abnormal Lab Results - Last 24 Hours (Table) 07/01/22 07/02/22 07/02/22 Range/Units 20:12 06:20 06:57 WBC (4.50-10.00) X 10*3/uL RBC (4.40-5.60) X 10*6/uL Hgb (13.0-17.0) g/dL Hct (39.6-50.0) % MCHC (32.0-37.0) g/dL RDW (11.5-14.5) % MPV (9.5-12.2) fL Immature Gran # (0.00-0.04) X 10*3/uL Neutrophils # (1.80-7.70) X 10*3/uL Lymphocytes # (0.90-5.00) X 10*3/uL Eosinophils # (0.04-0.35) X 10*3/uL Glucose 144 H (74-99) mg/dL POC Glucose (mg/dL) 174 H 137 H (70-110) mg/dL Calcium 8.2 L (8.4-10.2) mg/dL 07/02/22 07/02/22 07/02/22 Range/Units 06:57 12:05 17:07 WBC 10.50 H (4.50-10.00) X 10*3/uL RBC 3.95 L (4.40-5.60) X 10*6/uL Hgb 11.2 L (13.0-17.0) g/dL Hct 35.6 L (39.6-50.0) % MCHC 31.5 L (32.0-37.0) g/dL RDW 16.6 H (11.5-14.5) % MPV 9.2 L (9.5-12.2) fL Immature Gran # 0.49 H (0.00-0.04) X 10*3/uL Neutrophils # 8.04 H (1.80-7.70) X 10*3/uL Lymphocytes # 0.75 L (0.90-5.00) X 10*3/uL Eosinophils # 0.60 H (0.04-0.35) X 10*3/uL Glucose (74-99) mg/dL POC Glucose (mg/dL) 168 H 140 H (70-110) mg/dL Calcium (8.4-10.2) mg/dL Microbiology - Last 24 Hours (Table) 06/28/22 23:45 Blood Culture - Preliminary Blood No Growth after 72 hours 06/28/22 23:30 Blood Culture - Preliminary Blood No Growth after 72 hours
[2022-07-03] MEDS ORDERED: VANCOMYCIN TROUGH DUE 1 EACH MISC MISCELLANE ONE (03:00)
[2022-07-03 03:50] LABS: African American GFR (CKD) 82 (>60 ml/min/1.73 sqM); Anion Gap 5 mmol/L; Blood Urea Nitrogen 15 mg/dL (9-20); Calcium 8.1 mg/dL (8.4-10.2); Carbon Dioxide 24 mmol/L (22-30); Chloride 109 mmol/L (98-107); Glucose 192 mg/dL (74-99); Non-African American GFR(CKD) 71 (>60 ml/min/1.73 sqM); Potassium 4.2 mmol/L (3.5-5.1); Sodium 138 mmol/L (137-145)
[2022-07-03 03:54] LABS: Basophils # (A) 0.1 k/uL (0-0.2); Basophils % (A) 1 %; Eosinophils # (A) 0.8 k/uL (0-0.7); Eosinophils % (A) 7 %; HCT 36.2 % (39.0-53.0); HGB 11.2 gm/dL (13.0-17.5); Hypochromasia Moderate; Lymphocytes # (A) 0.8 k/uL (1.0-4.8); Lymphocytes % (A) 8 %; MCH 28.8 pg (25.0-35.0); Mean Platelet Volume 8.3; Monocytes # (A) 0.4 k/uL (0-1.0); Monocytes % (A) 4 %; Neutrophils # (A) 8.1 k/uL (1.3-7.7); Neutrophils % (A) 79 %; Platelet Count 380 k/uL (150-450); RBC 3.89 m/uL (4.30-5.90); RDW 15.9 % (11.5-15.5); WBC 10.2 k/uL (3.8-10.6)
[2022-07-03] MEDS: VANCOMYCIN 2,000 MG in SODIUM CHLORIDE 0.9% 500 ML 500 ML IVPB SCH ×2 (04:02→20:52)
[2022-07-03] MEDS: HYDROcodone/APAP 5-325MG 1 EACH TAB PO PRN ×2 (04:10→10:47)
[2022-07-03 06:34] LABS: Glucose,Whole Blood 151 mg/dL (70-110)
[2022-07-03] MEDS: LEVOTHYROXINE 100 MCG TAB PO SCH (06:34)
[2022-07-03] MEDS: INSULIN ASPART (NovoLOG) 100 UNIT/ML VIAL SQ SCH ×4 (06:34→20:51)
[2022-07-03] MEDS: CEFEPIME 2 GM in SODIUM CHLORIDE 0.9% 100 ML IVPB SCH ×2 (07:59→15:35)
[2022-07-03] MEDS: PIOGLITAZONE 15 MG TAB PO SCH (07:59)
[2022-07-03] MEDS: FAMOTIDINE 20 MG TAB PO SCH (07:59)
[2022-07-03] MEDS: SYMBICORT 160-4.5 MCG INHALER INHALATION SCH ×2 (09:40→20:35)
[2022-07-03 12:12] LABS: Glucose,Whole Blood 161 mg/dL (70-110)
[2022-07-03] MEDS: ATORVASTATIN 10 MG TAB PO SCH (13:06)
[2022-07-03] MEDS: SODIUM CHLORIDE 0.9% 1,000 ML IV SCH (13:06)
[2022-07-03] MEDS: RIVAROXABAN 20 MG TAB PO SCH (15:35)
[2022-07-03 17:53] LABS: Glucose,Whole Blood 130 mg/dL (70-110)
[2022-07-03 20:37] LABS: Glucose,Whole Blood 193 mg/dL (70-110)
[2022-07-03] MEDS: MONTELUKAST 10 MG TAB PO SCH (20:51)
--- NOTE | 2022-07-03 23:09 | P.PN ---
Subjective Progress Note Date: 07/02/22 Principal diagnosis: Bilateral lower extremity ulcer and cellulitis Patient is a 77-year-old male with a past medical history significant for bilateral lower extremity venous stasis ulcer and history of recurrent cellulitis presented to hospital with another episode of cellulitis. On today's evaluation that is 07/02/2022, the patient continues to be febrile the patient is breathing comfortably on room air, the patient denies any chest pain or shortness of breath or cough, patient pain and redness to the left lower extremity has slightly decreased Objective - Vital Signs Vital signs: Vital Signs Temp 98.3 F 07/02/22 08:00 Pulse 88 07/02/22 08:00 Resp 18 07/02/22 08:00 BP 132/70 07/02/22 08:00 Pulse Ox 93 L 07/02/22 08:00 FiO2 Intake & Output 07/01/22 07/02/22 07/02/22 19:59 06:59 18:59 Intake Total Balance Intake: Oral Other: Voiding Method Urinal # Voids - Exam GENERAL DESCRIPTION: An elderly male lying in bed in no distress RESPIRATORY SYSTEM: Unlabored breathing , decreased breath sounds at bases HEART: S1 S2 regular rate and rhythm , ABDOMEN: Soft , no tenderness EXTREMITIES: Bilateral lower extremity and currently wrapped, patient noticed to have more redness to the left leg - Labs CBC & Chem 7: 07/03/22 02:48 07/03/22 02:48 Labs: Abnormal Lab Results - Last 24 Hours (Table) 07/01/22 07/02/22 07/02/22 Range/Units 20:12 06:20 06:57 WBC (4.50-10.00) X 10*3/uL RBC (4.40-5.60) X 10*6/uL Hgb (13.0-17.0) g/dL Hct (39.6-50.0) % MCHC (32.0-37.0) g/dL RDW (11.5-14.5) % MPV (9.5-12.2) fL Immature Gran # (0.00-0.04) X 10*3/uL Neutrophils # (1.80-7.70) X 10*3/uL Lymphocytes # (0.90-5.00) X 10*3/uL Eosinophils # (0.04-0.35) X 10*3/uL Glucose 144 H (74-99) mg/dL POC Glucose (mg/dL) 174 H 137 H (70-110) mg/dL Calcium 8.2 L (8.4-10.2) mg/dL 07/02/22 07/02/22 Range/Units 06:57 12:05 WBC 10.50 H (4.50-10.00) X 10*3/uL RBC 3.95 L (4.40-5.60) X 10*6/uL Hgb 11.2 L (13.0-17.0) g/dL Hct 35.6 L (39.6-50.0) % MCHC 31.5 L (32.0-37.0) g/dL RDW 16.6 H (11.5-14.5) % MPV 9.2 L (9.5-12.2) fL Immature Gran # 0.49 H (0.00-0.04) X 10*3/uL Neutrophils # 8.04 H (1.80-7.70) X 10*3/uL Lymphocytes # 0.75 L (0.90-5.00) X 10*3/uL Eosinophils # 0.60 H (0.04-0.35) X 10*3/uL Glucose (74-99) mg/dL POC Glucose (mg/dL) 168 H (70-110) mg/dL Calcium (8.4-10.2) mg/dL Microbiology - Last 24 Hours (Table) 06/28/22 23:45 Blood Culture - Preliminary Blood No Growth after 72 hours 06/28/22 23:30 Blood Culture - Preliminary Blood No Growth after 72 hours Assessment and Plan (1) Cellulitis of left lower extremity Current Visit: Yes Status: Acute Code(s): L03.116 - CELLULITIS OF LEFT LOWER LIMB SNOMED Code(s): 133898631 (2) Cellulitis of right leg Current Visit: No Status: Acute Code(s): L03.115 - CELLULITIS OF RIGHT LOWER LIMB SNOMED Code(s): 263305238 Plan: 1patient with bilateral lower extremity venous stasis ulcer and cellulitis right greater than the left in this patient did have evidence of slough tissue especially to the right lower extremity with some surrounding redness we need to cover for the gram-positive skin noe patient seem to have failed outpatient oral Keflex therapy. 2local wound care to the left lower extremity with a dry Aquacel silver dressing and Zeus wrap. 3local wound care to the right lower extremity wound with the Medihoney followed by moist dressing change daily. 4patient has shown some clinical improvement and will continue with vancomycin and cefepime, monitor clinical course closely
--- NOTE | 2022-07-03 23:10 | P.PN ---
Subjective Progress Note Date: 07/03/22 Principal diagnosis: Bilateral lower extremity ulcer and cellulitis Patient is a 77-year-old male with a past medical history significant for bilateral lower extremity venous stasis ulcer and history of recurrent cellulitis presented to hospital with another episode of cellulitis. On today's evaluation that is 07/03/2022, the patient remains to be febrile the patient is breathing comfortably on room air, the patient denies any chest pain or shortness of breath or cough, patient pain and redness to the left lower extremity has slightly decreased in intensity currently with no open wound or any drainage and no new symptoms Objective - Vital Signs Vital signs: Vital Signs Temp 97.8 F 07/03/22 14:00 Pulse 85 07/03/22 14:00 Resp 18 07/03/22 14:00 BP 158/93 07/03/22 14:00 Pulse Ox 98 07/03/22 14:00 FiO2 Intake & Output 07/02/22 07/03/22 07/03/22 18:59 06:59 18:59 Intake Total 240 300 Output Total 375 Balance -135 300 Intake: Oral 240 300 Output: Urine 375 Other: Voiding Method Urinal Urinal # Voids 1 # Bowel Movements 1 - Exam GENERAL DESCRIPTION: An elderly male lying in bed in no distress RESPIRATORY SYSTEM: Unlabored breathing , decreased breath sounds at bases HEART: S1 S2 regular rate and rhythm , ABDOMEN: Soft , no tenderness EXTREMITIES: Bilateral lower extremity and currently wrapped, patient noticed to have more redness to the left leg - Labs CBC & Chem 7: 07/03/22 02:48 07/03/22 02:48 Labs: Abnormal Lab Results - Last 24 Hours (Table) 07/02/22 07/02/22 07/03/22 Range/Units 17:07 20:14 02:48 RBC 3.89 L (4.30-5.90) m/uL Hgb 11.2 L (13.0-17.5) gm/dL Hct 36.2 L (39.0-53.0) % RDW 15.9 H (11.5-15.5) % Neutrophils # 8.1 H (1.3-7.7) k/uL Lymphocytes # 0.8 L (1.0-4.8) k/uL Eosinophils # 0.8 H (0-0.7) k/uL Chloride (98-107) mmol/L Glucose (74-99) mg/dL POC Glucose (mg/dL) 140 H 155 H (70-110) mg/dL Calcium (8.4-10.2) mg/dL 07/03/22 07/03/22 07/03/22 Range/Units 02:48 06:32 12:01 RBC (4.30-5.90) m/uL Hgb (13.0-17.5) gm/dL Hct (39.0-53.0) % RDW (11.5-15.5) % Neutrophils # (1.3-7.7) k/uL Lymphocytes # (1.0-4.8) k/uL Eosinophils # (0-0.7) k/uL Chloride 109 H (98-107) mmol/L Glucose 192 H (74-99) mg/dL POC Glucose (mg/dL) 151 H 161 H (70-110) mg/dL Calcium 8.1 L (8.4-10.2) mg/dL Microbiology - Last 24 Hours (Table) 06/28/22 23:30 Blood Culture - Preliminary Blood No Growth after 96 hours 06/28/22 23:45 Blood Culture - Preliminary Blood No Growth after 96 hours Assessment and Plan (1) Cellulitis of left lower extremity Current Visit: Yes Status: Acute Code(s): L03.116 - CELLULITIS OF LEFT LOWER LIMB SNOMED Code(s): 526197993 (2) Cellulitis of right leg Current Visit: No Status: Acute Code(s): L03.115 - CELLULITIS OF RIGHT LOWER LIMB SNOMED Code(s): 352767043 Plan: 1patient with bilateral lower extremity venous stasis ulcer and cellulitis right greater than the left in this patient did have evidence of slough tissue especially to the right lower extremity with some surrounding redness we need to cover for the gram-positive skin noe patient seem to have failed outpatient oral Keflex therapy. 2local wound care to the left lower extremity with a dry Aquacel silver dressing and Zeus wrap. 3local wound care to the right lower extremity wound with the Medihoney followed by moist dressing change daily. 4patient did have slow clinical improvement patient to continue with vancomycin and cefepime for another 24-48 hour before transitioning to oral antibiotic Time with Patient: Less than 30
[2022-07-04] MEDS: HYDROcodone/APAP 5-325MG 1 EACH TAB PO PRN ×3 (00:23→22:04)
[2022-07-04] MEDS: CEFEPIME 2 GM in SODIUM CHLORIDE 0.9% 100 ML IVPB SCH ×4 (01:05→23:59)
[2022-07-04] MEDS: SODIUM CHLORIDE 0.9% 1,000 ML IV SCH ×2 (01:08→13:57)
[2022-07-04 06:24] LABS: African American GFR (CKD) >90 (>60 ml/min/1.73 sqM); Non-African American GFR(CKD) 85 (>60 ml/min/1.73 sqM)
--- NOTE | 2022-07-04 06:25 | P.PN ---
Subjective Progress Note Date: 07/03/22 This is a 77 year old male who follows with Dr. Tatyana Mora, past medical history includes diabetes, DVT, PE, GI bleed, hypertension, hyperlipidemia, thyroid disorder, factor v leiden clotting disorder, heart murmur. 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 He presents with concern for increased lower extremity edema that has been worse over the past couple of days. He was concerned about cellulitis and came to the hospital for antibiotics. He does follow with Dr Ratliff at wound center outpatient for a chronic wound to the left lower leg and also he has wound with drainage right lower leg. He began taking an old antibiotic prescription at home. He was recently admitted to this facility 05/12/22 to 05/23/22 for acute kidney injury during that admission he was treated for right leg cellulitis and acute kidney injury he was treated and discharged home on oral keflex. He had staphylococcus aureus, proteus penneri, and alcaligen faecalis on his previous wound culture. 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 He denies fever or chills. Denies shortness of breath. Patient presents with sodium level of 132 and creatinine is increased up to 1.68. Has some leukocytosis 15.0. He is admitted for lower extremity cellulitis and Dr. Silva has been placed on consultation. Patient received a dose of IV unasyn and started on empiric antibiotic coverage with IV vancomycin. Patient is receiving IV fluids at 130 cc per hour and blood pressure remains on the lower side 88 systolic. Venous doppler of left leg negative for DVT. There is question of possible allergic reaction to lasix his previous hospital admission. 06/30/22 Patient is evaluated today sitting up in chair. No acute events overnight. He continues to report pain about 6-7/10 to his left lower extremity and tender to touch. He continues on IV vancomycin. Local wound care being done. Blood cultures are pending. Blood pressure has improved to 139/55 and IV fluids have been decreased. Labs Today showing white count of 8.51, hgb 9.8, sodium 137, potassium 3.8, BUN 25, creatinine 1.14. Blood glucose in the 130s, calcium 7.5. Remains afebrile. 07/01/2022 Patient is currently lying in bed. Awake alert and oriented x3. Still complains of left lower extremity pain and swelling and redness. No fever no chills. No cough or sputum production. No nausea vomiting abdominal pain or diarrhea. Continues on antibiotics in the form of IV vancomycin. Blood sugars controlled. 07/02/2022 Patient is resting well. Pain is controlled with Sabina 5. Patient has been afebrile. Hemodynamically stable and is currently on room air saturating at 96%. No headache or dizziness or lightheadedness. No cough or sputum production. No chest pain or shortness of breath. Still having left lower extremity redness and swelling and pain., Mainly in the thigh region. Continued on wound care. Laboratory data showed WBC 10.4 hemoglobin 11.1 platelets 360 Sodium 138 potassium 4.2 chloride 105 bicarb is 24 BUN 13 and creatinine 0.87 and calcium 8.2 07/03/2022 Patient is seen and evaluated in follow-up this morning currently maintained on IV antibiotics with infectious disease following closely. Patient is continued with local wound care and awaiting infectious disease recommendations. Patient is continued on IV cefepime along with vancomycin. Patient will need ECF once discharged and social work following working on possible [employer]. Patient is afebrile denies chest pain or shortness of breath. Patient denies nausea or vomiting and is tolerating diet. Current medications reviewed. Review of Systems Constitutional: Denied any fatigue denied any fever. Cardio vascular: denied any chest pain, palpitations Gastrointestinal: denied any nausea, vomiting, diarrhea Pulmonary: Denied any shortness of breath, denies cough Neurologic denied any new focal deficits, reports weakness PHYSICAL EXAMINATION: GENERAL: The patient is alert and oriented x3, not in any acute distress. Well developed, well nourished. Obese. HEENT: Pupils are round and equally reacting to light. EOMI. No scleral icterus. No conjunctival pallor. Normocephalic, atraumatic. No pharyngeal erythema. No thyromegaly. CARDIOVASCULAR: S1 and S2 present. No murmurs, rubs, or gallops. PULMONARY: Chest is clear to auscultation, no wheezing or crackles. ABDOMEN: Soft, nontender, nondistended, normoactive bowel sounds. No palpable organomegaly. Round and distended. Prominent blood vessels noted on the right lower abdomen. MUSCULOSKELETAL: No joint swelling or deformity. EXTREMITIES: No cyanosis, clubbing, or pedal edema. NEUROLOGICAL: Gross neurological examination did not reveal any focal deficits. SKIN: Patient has bilateral lower extremity chronic skin changes. There is erythma lower extremity on the left extending up to the groin. He has wound to outer aspect of right lower extremity with slough. He also reports wound to left lower leg. Bilateral venous stasis ulcer. Assessment: Lower extremity cellulitis secondary to bilateral lower extremity venous stasis ulcer, present on admission Hyponatremia hypovolemic. Improved. Acute kidney injury most likely prerenal, recommend to hold off ARB and patient is being hydrated with IV fluids. 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 Recommending another 24-48 hours of IV abx before possible oral abx for discharge. Will discuss with ID about discharge planning. Encouraged increased activity as tolerated Case management/social work following and working on ECF. Continue PT/OT daily Encourage oral intake Frequent position changes Blood cultures remain negative Due to multiple complex medical issued, prognosis is guarded. The impression and plan of care has been dictated by Mary Sanderson, Nurse Practitioner as directed. Dr. Darryn MD I have performed a history and examination and MDM of this patient, discussed the same with the dictator, and agree with the dictator's assessment and plan as written ,documented as a scribe. Based on total visit time, I have performed more than 50% of the visit. Objective - Vital Signs Vital signs: Vital Signs Temp 98.0 F 07/03/22 06:15 Pulse 81 07/03/22 06:15 Resp 17 07/03/22 06:15 BP 119/70 07/03/22 06:15 Pulse Ox 92 L 07/03/22 06:15 FiO2 Intake & Output 07/02/22 07/03/22 07/03/22 18:59 06:59 18:59 Intake Total 240 300 Output Total 375 Balance -135 300 Intake: Oral 240 300 Output: Urine 375 Other: Voiding Method Urinal Urinal # Voids 1 # Bowel Movements 1 - Labs CBC & Chem 7: 07/03/22 02:48 07/03/22 02:48 Labs: Abnormal Lab Results - Last 24 Hours (Table) 07/02/22 07/02/22 07/02/22 Range/Units 06:57 12:05 17:07 WBC 10.50 H (4.50-10.00) X 10*3/uL RBC 3.95 L (4.40-5.60) X 10*6/uL Hgb 11.2 L (13.0-17.0) g/dL Hct 35.6 L (39.6-50.0) % MCHC 31.5 L (32.0-37.0) g/dL RDW 16.6 H (11.5-14.5) % MPV 9.2 L (9.5-12.2) fL Immature Gran # 0.49 H (0.00-0.04) X 10*3/uL Neutrophils # 8.04 H (1.80-7.70) X 10*3/uL Lymphocytes # 0.75 L (0.90-5.00) X 10*3/uL Eosinophils # 0.60 H (0.04-0.35) X 10*3/uL Chloride (98-107) mmol/L Glucose (74-99) mg/dL POC Glucose (mg/dL) 168 H 140 H (70-110) mg/dL Calcium (8.4-10.2) mg/dL 07/02/22 07/03/22 07/03/22 Range/Units 20:14 02:48 02:48 WBC (4.50-10.00) X 10*3/uL RBC 3.89 L (4.40-5.60) X 10*6/uL Hgb 11.2 L (13.0-17.0) g/dL Hct 36.2 L (39.6-50.0) % MCHC (32.0-37.0) g/dL RDW 15.9 H (11.5-14.5) % MPV (9.5-12.2) fL Immature Gran # (0.00-0.04) X 10*3/uL Neutrophils # 8.1 H (1.80-7.70) X 10*3/uL Lymphocytes # 0.8 L (0.90-5.00) X 10*3/uL Eosinophils # 0.8 H (0.04-0.35) X 10*3/uL Chloride 109 H (98-107) mmol/L Glucose 192 H (74-99) mg/dL POC Glucose (mg/dL) 155 H (70-110) mg/dL Calcium 8.1 L (8.4-10.2) mg/dL 07/03/22 Range/Units 06:32 WBC (4.50-10.00) X 10*3/uL RBC (4.40-5.60) X 10*6/uL Hgb (13.0-17.0) g/dL Hct (39.6-50.0) % MCHC (32.0-37.0) g/dL RDW (11.5-14.5) % MPV (9.5-12.2) fL Immature Gran # (0.00-0.04) X 10*3/uL Neutrophils # (1.80-7.70) X 10*3/uL Lymphocytes # (0.90-5.00) X 10*3/uL Eosinophils # (0.04-0.35) X 10*3/uL Chloride (98-107) mmol/L Glucose (74-99) mg/dL POC Glucose (mg/dL) 151 H (70-110) mg/dL Calcium (8.4-10.2) mg/dL Microbiology - Last 24 Hours (Table) 06/28/22 23:30 Blood Culture - Preliminary Blood No Growth after 96 hours 06/28/22 23:45 Blood Culture - Preliminary Blood No Growth after 96 hours
[2022-07-04 06:26] LABS: Glucose,Whole Blood 145 mg/dL (70-110)
[2022-07-04] MEDS: INSULIN ASPART (NovoLOG) 100 UNIT/ML VIAL SQ SCH ×4 (06:27→22:47)
[2022-07-04] MEDS: LEVOTHYROXINE 100 MCG TAB PO SCH (06:31)
[2022-07-04] MEDS: SYMBICORT 160-4.5 MCG INHALER INHALATION SCH ×2 (08:22→21:06)
[2022-07-04] MEDS: FAMOTIDINE 20 MG TAB PO SCH (08:51)
[2022-07-04] MEDS: PIOGLITAZONE 15 MG TAB PO SCH (08:51)
[2022-07-04 11:51] LABS: Glucose,Whole Blood 151 mg/dL (70-110)
[2022-07-04] MEDS: VANCOMYCIN 2,000 MG in SODIUM CHLORIDE 0.9% 500 ML 500 ML IVPB SCH (13:23)
--- NOTE | 2022-07-04 14:18 | CDI ---
Documentation Clarification Form Date: 07/04/2022 02:08:07 PM From: Destiny Villalobos CCS, CCDS Admit Date: 06/28/2022 11:57:00 PM Patient Name: Antony De La Cruz Visit Number: [id number] Discharge Date: ATTENTION: The Clinical Documentation Specialists (CDI) and [facility] Coding Staff appreciate your assistance in clarifying documentation. Please respond to the clarification below the line at the bottom and electronically sign. The CDI & [facility] Coding staff will review the response and follow-up if needed. Please note: Queries are made part of the Legal Health Record. If you have any questions, please contact the author of this message via ITS. Dr. Yi Cates: CKD Stage II - III is documented in the 06/29 H/P and in the subsequent Attending Progress Notes 06/30 - 07/03. Additional clarification regarding the stage of CKD is requested. History/Risk Factors per the 06/29 H/P: DM, DVT, PE, GI Bleed, Hypertension, Hyperlipidemia, Hypothyroid, Factor V Leiden Clotting Disorder, Heart Murmur, MRSA. Clinical Indicators: Presented to the ED on 06/28 with Cellulitis of the left leg and nonhealing ulcer of the right lower leg. Admit with Cellulitis "left leg", Ulcer of Right lower leg. LAB: 06/28 BUN: 39. 114: 25. 6: 13. 07/03: 15. 06/28 Creatinine: 1.68. 06/30: 1.14. 07/02: 0.87. 07/03: 1.03. 07/04: 0.87. 06/28 GFR: 39. 11/4: 63. 6: 85. 07/03: 71. 07/04: 85. Historical GFR: 10/09/2017: 58. Treatment 06/28: Blood culture, IV Ampicillin 100 mls @ 200 mls/hr x1, IV Fentanyl 100 mcg q4H/prn, IV Vancomycin 500 mls @ 167 mls/hr x1, IV Na Chl 1,000 mls @ 75 mls/hr q13H. Nephrology is not consulted. Please clarify the specific stage of the CKD, if known: [ ] CKD Stage 2 (GFR 60-89) [ ] CKD Stage 3 (GFR 30-59) [ ] CKD Stage 3a (GFR 45-59) [ ] CKD Stage 3b (GFR 30-44) [ ] Other, please specify [ ] Unable to determine (Template Last revised: September 2020) 07/10 Query response is documented in the 07/07 Discharge Summary, Dr. Cates: CKD stage II. (CDS: ALEX CAMARGO
[2022-07-04] MEDS: RIVAROXABAN 20 MG TAB PO SCH (17:10)
[2022-07-04 17:30] LABS: Glucose,Whole Blood 172 mg/dL (70-110)
[2022-07-04 19:41] LABS: Glucose,Whole Blood 182 mg/dL (70-110)
[2022-07-04 22:11] LABS: Glucose,Whole Blood 153 mg/dL (70-110)
[2022-07-04] MEDS: MONTELUKAST 10 MG TAB PO SCH (22:46)
--- NOTE | 2022-07-04 23:57 | P.PN ---
Subjective Progress Note Date: 07/04/22 Principal diagnosis: Bilateral lower extremity ulcer and cellulitis Patient is a 77-year-old male with a past medical history significant for bilateral lower extremity venous stasis ulcer and history of recurrent cellulitis presented to hospital with another episode of cellulitis. On today's evaluation that is 07/04/2022, the patient continues to be febrile the patient is breathing comfortably on room air, the patient denies chest pain or shortness of breath or cough, patient pain and redness to the left lower extremity has minimally decreased in intensity , patient denies any worsening drainage from his lower extremity wound and no diarrhea Objective - Vital Signs Vital signs: Vital Signs Temp 98.3 F 07/04/22 08:00 Pulse 73 07/04/22 08:00 Resp 20 07/04/22 08:00 BP 149/76 07/04/22 08:00 Pulse Ox 95 07/04/22 08:00 FiO2 Intake & Output 07/03/22 07/04/22 07/04/22 18:59 06:59 18:59 Intake Total 540 Output Total 700 300 Balance 540 -700 -300 Intake: Oral 540 Output: Urine 700 300 Other: Voiding Method Urinal Urinal Urinal # Voids 2 - Exam GENERAL DESCRIPTION: An elderly male lying in bed in no distress RESPIRATORY SYSTEM: Unlabored breathing , decreased breath sounds at bases HEART: S1 S2 regular rate and rhythm , ABDOMEN: Soft , no tenderness EXTREMITIES: Bilateral lower extremity and currently wrapped, patient noticed to have more redness to the left leg - Labs CBC & Chem 7: 07/03/22 02:48 07/04/22 05:39 Labs: Abnormal Lab Results - Last 24 Hours (Table) 07/03/22 07/03/22 07/04/22 Range/Units 17:46 20:36 06:24 POC Glucose (mg/dL) 130 H 193 H 145 H (70-110) mg/dL 07/04/22 Range/Units 11:50 POC Glucose (mg/dL) 151 H (70-110) mg/dL Microbiology - Last 24 Hours (Table) 06/28/22 23:30 Blood Culture - Preliminary Blood No Growth after 120 hours 06/28/22 23:45 Blood Culture - Preliminary Blood No Growth after 120 hours Assessment and Plan (1) Cellulitis of left lower extremity Current Visit: Yes Status: Acute Code(s): L03.116 - CELLULITIS OF LEFT LOWER LIMB SNOMED Code(s): 734607466 (2) Cellulitis of right leg Current Visit: No Status: Acute Code(s): L03.115 - CELLULITIS OF RIGHT LOWER LIMB SNOMED Code(s): 259665583 Plan: 1patient with bilateral lower extremity venous stasis ulcer and cellulitis right greater than the left in this patient did have evidence of slough tissue especially to the right lower extremity with some surrounding redness we need to cover for the gram-positive skin noe patient seem to have failed outpatient oral Keflex therapy. 2local wound care to the left lower extremity with a dry Aquacel silver dressing and Zeus wrap. 3local wound care to the right lower extremity wound with the Medihoney followed by moist dressing change daily. 4patient still has significant cellulitis patient due to the left medial thigh and leg, we will discontinue vancomycin and daptomycin and see clinical response continue cefepime as well this was discussed with the admitting team Time with Patient: Less than 30
[2022-07-05] MEDS: HYDROcodone/APAP 5-325MG 1 EACH TAB PO PRN ×2 (04:18→14:12)
[2022-07-05] MEDS: LEVOTHYROXINE 100 MCG TAB PO SCH (05:33)
[2022-07-05] MEDS: SODIUM CHLORIDE 0.9% 1,000 ML IV SCH ×2 (05:35→16:41)
[2022-07-05 06:09] LABS: Glucose,Whole Blood 136 mg/dL (70-110)
--- NOTE | 2022-07-05 06:38 | P.PN ---
Subjective Progress Note Date: 07/04/22 This is a 77 year old male who follows with Dr. Tatyana Mora, past medical history includes diabetes, DVT, PE, GI bleed, hypertension, hyperlipidemia, thyroid disorder, factor v leiden clotting disorder, heart murmur. 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 He presents with concern for increased lower extremity edema that has been worse over the past couple of days. He was concerned about cellulitis and came to the hospital for antibiotics. He does follow with Dr Ratliff at wound center outpatient for a chronic wound to the left lower leg and also he has wound with drainage right lower leg. He began taking an old antibiotic prescription at home. He was recently admitted to this facility 05/12/22 to 05/23/22 for acute kidney injury during that admission he was treated for right leg cellulitis and acute kidney injury he was treated and discharged home on oral keflex. He had staphylococcus aureus, proteus penneri, and alcaligen faecalis on his previous wound culture. 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 He denies fever or chills. Denies shortness of breath. Patient presents with sodium level of 132 and creatinine is increased up to 1.68. Has some leukocytosis 15.0. He is admitted for lower extremity cellulitis and Dr. Silva has been placed on consultation. Patient received a dose of IV unasyn and started on empiric antibiotic coverage with IV vancomycin. Patient is receiving IV fluids at 130 cc per hour and blood pressure remains on the lower side 88 systolic. Venous doppler of left leg negative for DVT. There is question of possible allergic reaction to lasix his previous hospital admission. 06/30/22 Patient is evaluated today sitting up in chair. No acute events overnight. He continues to report pain about 6-7/10 to his left lower extremity and tender to touch. He continues on IV vancomycin. Local wound care being done. Blood cultures are pending. Blood pressure has improved to 139/55 and IV fluids have been decreased. Labs Today showing white count of 8.51, hgb 9.8, sodium 137, potassium 3.8, BUN 25, creatinine 1.14. Blood glucose in the 130s, calcium 7.5. Remains afebrile. 07/01/2022 Patient is currently lying in bed. Awake alert and oriented x3. Still complains of left lower extremity pain and swelling and redness. No fever no chills. No cough or sputum production. No nausea vomiting abdominal pain or diarrhea. Continues on antibiotics in the form of IV vancomycin. Blood sugars controlled. 07/02/2022 Patient is resting well. Pain is controlled with [place] 5. Patient has been afebrile. Hemodynamically stable and is currently on room air saturating at 96%. No headache or dizziness or lightheadedness. No cough or sputum production. No chest pain or shortness of breath. Still having left lower extremity redness and swelling and pain., Mainly in the thigh region. Continued on wound care. Laboratory data showed WBC 10.4 hemoglobin 11.1 platelets 360 Sodium 138 potassium 4.2 chloride 105 bicarb is 24 BUN 13 and creatinine 0.87 and calcium 8.2 07/03/2022 Patient is seen and evaluated in follow-up this morning currently maintained on IV antibiotics with infectious disease following closely. Patient is continued with local wound care and awaiting infectious disease recommendations. Patient is continued on IV cefepime along with vancomycin. Patient will need ECF once discharged and social work following working on possible [facility]. Patient is afebrile denies chest pain or shortness of breath. Patient denies nausea or vomiting and is tolerating diet. 07/04/2022 Patient is seen and evaluated in follow-up continued on IV antibiotics with infectious disease following. Will be continued on at least 24-48 more hours of IV antibiotics and will reevaluate if requiring IV antibiotics or oral on discharge. Patient with significant wounds and redness recommend to continue with local wound care and frequent position changes. Encouraged increased activity as tolerated. Social work following and arranging ECF once stable and discharged. Afebrile with no reports of chest pain or shortness of breath. Current medications reviewed. Review of Systems Constitutional: Denied any fatigue denied any fever. Cardio vascular: denied any chest pain, palpitations Gastrointestinal: denied any nausea, vomiting, diarrhea Pulmonary: Denied any shortness of breath, denies cough Neurologic denied any new focal deficits, reports weakness PHYSICAL EXAMINATION: GENERAL: The patient is alert and oriented x3, not in any acute distress. Well developed, well nourished. Obese. HEENT: Pupils are round and equally reacting to light. EOMI. No scleral icterus. No conjunctival pallor. Normocephalic, atraumatic. No pharyngeal erythema. No thyromegaly. CARDIOVASCULAR: S1 and S2 present. No murmurs, rubs, or gallops. PULMONARY: Chest is clear to auscultation, no wheezing or crackles. ABDOMEN: Soft, non-tender, non-distended, normoactive bowel sounds. No palpable organomegaly. obese. Prominent blood vessels noted on the right lower abdomen. MUSCULOSKELETAL: No joint swelling or deformity. EXTREMITIES: No cyanosis, clubbing, or pedal edema. NEUROLOGICAL: Gross neurological examination did not reveal any focal deficits. SKIN: Patient has bilateral lower extremity chronic skin changes. There is erythma lower extremity on the left extending up to the groin. He has wound to outer aspect of right lower extremity with slough. He also reports wound to left lower leg. Bilateral venous stasis ulcer. Assessment: Lower extremity cellulitis secondary to bilateral lower extremity venous stasis ulcer, present on admission Hyponatremia hypovolemic. Improved. Acute kidney injury most likely prerenal, recommend to hold off ARB and patient is being hydrated with IV fluids. 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 Vanco discontinued. ID following closely. Recommending continuing IV abx before final abx recommendations are made for discharge. Will discuss with ID about discharge planning.Lower extremities with extensive redness noted Encouraged increased activity as tolerated Case management/social work following and working on ECF. Continue PT/OT daily Encourage oral intake Frequent position changes Due to multiple complex medical issued, prognosis is guarded. The impression and plan of care has been dictated by Nurse Johnathan Prac titioner as directed. Dr. Darryn MD I have performed a history and examination and MDM of this patient, discussed the same with the dictator, and agree with the dictator's assessment and plan as written ,documented as a scribe. Based on total visit time, I have performed more than 50% of the visit. Objective - Vital Signs Vital signs: Vital Signs Temp 98.2 F 07/04/22 14:34 Pulse 92 07/04/22 14:34 Resp 18 07/04/22 14:34 BP 115/80 07/04/22 14:34 Pulse Ox 97 07/04/22 14:34 FiO2 Intake & Output 07/03/22 07/04/22 07/04/22 18:59 06:59 18:59 Intake Total 540 Output Total 700 300 Balance 540 -700 -300 Intake: Oral 540 Output: Urine 700 300 Other: Voiding Method Urinal Urinal Urinal # Voids 2 - Labs CBC & Chem 7: 07/03/22 02:48 07/04/22 05:39 Labs: Abnormal Lab Results - Last 24 Hours (Table) 07/03/22 07/03/22 07/04/22 Range/Units 17:46 20:36 06:24 POC Glucose (mg/dL) 130 H 193 H 145 H (70-110) mg/dL 07/04/22 Range/Units 11:50 POC Glucose (mg/dL) 151 H (70-110) mg/dL Microbiology - Last 24 Hours (Table) 06/28/22 23:30 Blood Culture - Preliminary Blood No Growth after 120 hours 06/28/22 23:45 Blood Culture - Preliminary Blood No Growth after 120 hours
[2022-07-05] MEDS: INSULIN ASPART (NovoLOG) 100 UNIT/ML VIAL SQ SCH ×4 (07:38→22:06)
[2022-07-05] MEDS: CEFEPIME 2 GM in SODIUM CHLORIDE 0.9% 100 ML IVPB SCH ×2 (07:52→14:42)
[2022-07-05] MEDS: FAMOTIDINE 20 MG TAB PO SCH (07:53)
[2022-07-05] MEDS: PIOGLITAZONE 15 MG TAB PO SCH (07:53)
[2022-07-05 11:15] LABS: Glucose,Whole Blood 138 mg/dL (70-110)
[2022-07-05] MEDS: SYMBICORT 160-4.5 MCG INHALER INHALATION SCH ×2 (11:17→19:44)
[2022-07-05 11:30] LABS: Basophils # (A) 0.06 X 10*3/uL (0.00-0.10); Basophils % (A) 0.6 %; Eosinophils # (A) 0.47 X 10*3/uL (0.04-0.35); Eosinophils % (A) 4.9 %; HCT 33.2 % (39.6-50.0); HGB 10.2 g/dL (13.0-17.0); Immature Grans, Automated 3.1 %; Lymphocytes # (A) 0.49 X 10*3/uL (0.90-5.00); Lymphocytes % (A) 5.1 %; MCH 28.7 pg (27.0-32.0); MCHC 30.7 g/dL (32.0-37.0); MCV 93.3 fL (80.0-97.0); Mean Platelet Volume 9.4 fL (9.5-12.2); Monocytes # (A) 0.49 X 10*3/uL (0.20-1.00); Monocytes % (A) 5.1 %; NRBC Per 100 WBC 0 /100 WBCS (0.0-0.0); Neutrophils # (A) 7.81 X 10*3/uL (1.80-7.70); Neutrophils % (A) 81.2 %; Platelet Count 401 X 10*3/uL (140-440); RBC 3.56 X 10*6/uL (4.40-5.60); RDW 16.8 % (11.5-14.5); WBC 9.62 X 10*3/uL (4.50-10.00)
[2022-07-05 11:31] LABS: African American GFR (CKD) 75.7 (60.0-200.0); Albumin 2.6 g/dL (3.8-4.9); Albumin/Globulin Ratio 0.93 (1.60-3.17); Anion Gap 9.6 mmol/L (10.00-18.00); BUN/Creat Ratio 11.18 Ratio (12.00-20.00); Blood Urea Nitrogen 12.3 mg/dL (9.0-27.0); Calcium 8.2 mg/dL (8.7-10.3); Carbon Dioxide 23.4 mmol/L (20.0-27.5); Globulin 2.8 g/dL (1.6-3.3); Non-African American GFR(CKD) 65.3 (60.0-200.0); Potassium 4.4 mmol/L (3.5-5.5); Total Bilirubin 0.2 mg/dL (0.30-1.20); Total Protein 5.4 g/dL (6.2-8.2)
[2022-07-05] MEDS: RIVAROXABAN 20 MG TAB PO SCH (14:12)
[2022-07-05 14:17] VITALS: BMI 42.0
[2022-07-05 16:32] LABS: Glucose,Whole Blood 150 mg/dL (70-110)
[2022-07-05 21:19] LABS: Glucose,Whole Blood 163 mg/dL (70-110)
[2022-07-05] MEDS: MONTELUKAST 10 MG TAB PO SCH (22:06)
[2022-07-06] MEDS: CEFEPIME 2 GM in SODIUM CHLORIDE 0.9% 100 ML IVPB SCH ×4 (01:00→23:39)
[2022-07-06] MEDS: HYDROcodone/APAP 5-325MG 1 EACH TAB PO PRN ×2 (03:13→21:02)
[2022-07-06] MEDS: LEVOTHYROXINE 100 MCG TAB PO SCH (06:09)
[2022-07-06 06:12] LABS: Glucose,Whole Blood 129 mg/dL (70-110)
--- NOTE | 2022-07-06 06:36 | P.PN ---
Subjective Progress Note Date: 07/05/22 This is a 77 year old male who follows with Dr. Tatyana Mora, past medical history includes diabetes, DVT, PE, GI bleed, hypertension, hyperlipidemia, thyroid disorder, factor v leiden clotting disorder, heart murmur. 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 He presents with concern for increased lower extremity edema that has been worse over the past couple of days. He was concerned about cellulitis and came to the hospital for antibiotics. He does follow with Dr Ratliff at wound center outpatient for a chronic wound to the left lower leg and also he has wound with drainage right lower leg. He began taking an old antibiotic prescription at home. He was recently admitted to this facility 05/12/22 to 05/23/22 for acute kidney injury during that admission he was treated for right leg cellulitis and acute kidney injury he was treated and discharged home on oral keflex. He had staphylococcus aureus, proteus penneri, and alcaligen faecalis on his previous wound culture. 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 He denies fever or chills. Denies shortness of breath. Patient presents with sodium level of 132 and creatinine is increased up to 1.68. Has some leukocytosis 15.0. He is admitted for lower extremity cellulitis and Dr. Silva has been placed on consultation. Patient received a dose of IV unasyn and started on empiric antibiotic coverage with IV vancomycin. Patient is receiving IV fluids at 130 cc per hour and blood pressure remains on the lower side 88 systolic. Venous doppler of left leg negative for DVT. There is question of possible allergic reaction to lasix his previous hospital admission. 06/30/22 Patient is evaluated today sitting up in chair. No acute events overnight. He continues to report pain about 6-7/10 to his left lower extremity and tender to touch. He continues on IV vancomycin. Local wound care being done. Blood cultures are pending. Blood pressure has improved to 139/55 and IV fluids have been decreased. Labs Today showing white count of 8.51, hgb 9.8, sodium 137, potassium 3.8, BUN 25, creatinine 1.14. Blood glucose in the 130s, calcium 7.5. Remains afebrile. 07/01/2022 Patient is currently lying in bed. Awake alert and oriented x3. Still complains of left lower extremity pain and swelling and redness. No fever no chills. No cough or sputum production. No nausea vomiting abdominal pain or diarrhea. Continues on antibiotics in the form of IV vancomycin. Blood sugars controlled. 07/02/2022 Patient is resting well. Pain is controlled with [place] 5. Patient has been afebrile. Hemodynamically stable and is currently on room air saturating at 96%. No headache or dizziness or lightheadedness. No cough or sputum production. No chest pain or shortness of breath. Still having left lower extremity redness and swelling and pain., Mainly in the thigh region. Continued on wound care. Laboratory data showed WBC 10.4 hemoglobin 11.1 platelets 360 Sodium 138 potassium 4.2 chloride 105 bicarb is 24 BUN 13 and creatinine 0.87 and calcium 8.2 07/03/2022 Patient is seen and evaluated in follow-up this morning currently maintained on IV antibiotics with infectious disease following closely. Patient is continued with local wound care and awaiting infectious disease recommendations. Patient is continued on IV cefepime along with vancomycin. Patient will need ECF once discharged and social work following working on [facility]. Patient is afebrile denies chest pain or shortness of breath. Patient denies nausea or vomiting and is tolerating diet. 07/04/2022 Patient is seen and evaluated in follow-up continued on IV antibiotics with infectious disease following. Will be continued on at least 24-48 more hours of IV antibiotics and will reevaluate if requiring IV antibiotics or oral on discharge. Patient with significant wounds and redness recommend to continue with local wound care and frequent position changes. Encouraged increased activity as tolerated. Social work following and arranging ECF once stable and discharged. Afebrile with no reports of chest pain or shortness of breath. 07/05/2022 Patient is seen in follow up this am and currently sitting up in the chair with bilateral lower extremities wrapped although legs are dependent and swollen. Swelling is significant and more so on the left. Erythema noted at the bend of the left leg with patient reported pain and continued weakness. Patient is reporting having difficulty getting up due to the swelling of the legs that is causing pain and immobility. ID following and continued on daptomycin and cefepime. Awaiting clinical response before deciding if IV abx are needed on discharge. Unfortunately no cultures were taken. Patient is afebrile and denies chest pain or shortness of breath. Tolerating diet Current medications reviewed. Review of Systems Constitutional: Denied any fatigue denied any fever. Cardio vascular: denied any chest pain, palpitations Gastrointestinal: denied any nausea, vomiting, diarrhea Pulmonary: Denied any shortness of breath, denies cough Neurologic denied any new focal deficits, reports weakness and lower extremity pain PHYSICAL EXAMINATION: GENERAL: The patient is alert and oriented x3, not in any acute distress. Well developed, well nourished. Obese. HEENT: Pupils are round and equally reacting to light. EOMI. No scleral icterus. No conjunctival pallor. Normocephalic, atraumatic. No pharyngeal erythema. No thyromegaly. CARDIOVASCULAR: S1 and S2 present. No murmurs, rubs, or gallops. PULMONARY: Chest is clear to auscultation, no wheezing or crackles. ABDOMEN: Soft, non-tender, non-distended, normoactive bowel sounds. No palpable organomegaly. obese. MUSCULOSKELETAL: No joint swelling or deformity. EXTREMITIES: No cyanosis, clubbing, or pedal edema. NEUROLOGICAL: Gross neurological examination did not reveal any focal deficits. SKIN: Patient has bilateral lower extremity chronic skin changes. There is erythma lower extremity on the left extending up to the groin with some improvement. He has wound to outer aspect of right lower extremity with slough. He also reports wound to left lower leg. Bilateral venous stasis ulcer. Assessment: Lower extremity cellulitis secondary to bilateral lower extremity venous stasis ulcer, present on admission Hyponatremia hypovolemic. Improved. Acute kidney injury most likely prerenal, recommend to hold off ARB and patient is being hydrated with IV fluids. 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 ID following closely. Recommending continuing IV abx before final abx recommendations are made for discharge as there were no cultures done. Significant swelling and redness of the left persists. Will discuss with ID about discharge planning. Encouraged increased activity as tolerated Case management/social work following and working on ECF. Continue PT/OT daily Encourage oral intake Frequent position changes Due to multiple complex medical issued, prognosis is guarded. The impression and plan of care has been dictated by Mary Sanderson, Nurse Practitioner as directed. Dr. Darryn MD I have performed a history and examination and MDM of this patient, discussed th e same with the dictator, and agree with the dictator's assessment and plan as written ,documented as a scribe. Based on total visit time, I have performed more than 50% of the visit. Objective - Vital Signs Vital signs: Vital Signs Temp 98.7 F 07/06/22 01:49 Pulse 89 07/06/22 01:49 Resp 18 07/06/22 01:49 BP 151/86 07/06/22 01:49 Pulse Ox 94 L 07/06/22 01:49 FiO2 Intake & Output 07/05/22 07/05/22 07/06/22 06:59 18:59 06:59 Intake Total 825 Output Total 600 800 700 Balance -600 -800 125 Weight 140.614 kg Intake: IV 825 Sodium Chloride 0.9% 1, 825 000 ml @ 75 mls/hr IV . [id number] NUBIA Rx#:[id number] Output: Urine 600 800 700 Other: Voiding Method Urinal Urinal - Labs CBC & Chem 7: 07/05/22 06:05 07/05/22 06:05 Labs: Abnormal Lab Results - Last 24 Hours (Table) 07/05/22 07/05/22 07/05/22 Range/Units 06:05 06:05 11:13 RBC 3.56 L (4.40-5.60) X 10*6/uL Hgb 10.2 L (13.0-17.0) g/dL Hct 33.2 L (39.6-50.0) % MCHC 30.7 L (32.0-37.0) g/dL RDW 16.8 H (11.5-14.5) % MPV 9.4 L (9.5-12.2) fL Immature Gran # 0.30 H (0.00-0.04) X 10*3/uL Neutrophils # 7.81 H (1.80-7.70) X 10*3/uL Lymphocytes # 0.49 L (0.90-5.00) X 10*3/uL Eosinophils # 0.47 H (0.04-0.35) X 10*3/uL Anion Gap 9.60 L (10.00-18.00) mmol/L BUN/Creatinine Ratio 11.18 L (12.00-20.00) Ratio Glucose 140 H (70-110) mg/dL POC Glucose (mg/dL) 138 H (70-110) mg/dL Calcium 8.2 L (8.7-10.3) mg/dL Total Bilirubin 0.20 L (0.30-1.20) mg/dL C-Reactive Protein 4.00 H (0.00-0.80) mg/dL Total Protein 5.4 L (6.2-8.2) g/dL Albumin 2.6 L (3.8-4.9) g/dL Albumin/Globulin Ratio 0.93 L (1.60-3.17) g/dL 07/05/22 07/05/22 07/06/22 Range/Units 16:30 21:18 06:11 RBC (4.40-5.60) X 10*6/uL Hgb (13.0-17.0) g/dL Hct (39.6-50.0) % MCHC (32.0-37.0) g/dL RDW (11.5-14.5) % MPV (9.5-12.2) fL Immature Gran # (0.00-0.04) X 10*3/uL Neutrophils # (1.80-7.70) X 10*3/uL Lymphocytes # (0.90-5.00) X 10*3/uL Eosinophils # (0.04-0.35) X 10*3/uL Anion Gap (10.00-18.00) mmol/L BUN/Creatinine Ratio (12.00-20.00) Ratio Glucose (70-110) mg/dL POC Glucose (mg/dL) 150 H 163 H 129 H (70-110) mg/dL Calcium (8.7-10.3) mg/dL Total Bilirubin (0.30-1.20) mg/dL C-Reactive Protein (0.00-0.80) mg/dL Total Protein (6.2-8.2) g/dL Albumin (3.8-4.9) g/dL Albumin/Globulin Ratio (1.60-3.17) g/dL Microbiology - Last 24 Hours (Table) 06/28/22 23:45 Blood Culture - Final Blood No Growth after 144 hours 06/28/22 23:30 Blood Culture - Final Blood No Growth after 144 hours
[2022-07-06] MEDS: INSULIN ASPART (NovoLOG) 100 UNIT/ML VIAL SQ SCH ×4 (06:46→21:01)
[2022-07-06] MEDS: PIOGLITAZONE 15 MG TAB PO SCH (08:28)
[2022-07-06] MEDS: FAMOTIDINE 20 MG TAB PO SCH (08:28)
[2022-07-06] MEDS: SYMBICORT 160-4.5 MCG INHALER INHALATION SCH ×2 (08:33→20:16)
[2022-07-06] MEDS: SODIUM CHLORIDE 0.9% 1,000 ML IV SCH ×2 (09:28→22:17)
[2022-07-06 11:52] LABS: Glucose,Whole Blood 127 mg/dL (70-110)
[2022-07-06] MEDS: LOSARTAN 50 MG TAB PO SCH (15:26)
[2022-07-06] MEDS: DILTIAZEM CD 240 MG CAP.ER.24H PO SCH (15:26)
[2022-07-06] MEDS: RIVAROXABAN 20 MG TAB PO SCH (16:23)
[2022-07-06] MEDS: tiZANidine 4 MG TAB PO PRN (16:26)
[2022-07-06 16:48] LABS: Glucose,Whole Blood 135 mg/dL (70-110)
--- NOTE | 2022-07-06 18:34 | P.PN ---
Subjective Progress Note Date: 07/06/22 This is a 77 year old male who follows with Dr. Tatyana Mora, past medical history includes diabetes, DVT, PE, GI bleed, hypertension, hyperlipidemia, thyroid disorder, factor v leiden clotting disorder, heart murmur. 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 He presents with concern for increased lower extremity edema that has been worse over the past couple of days. He was concerned about cellulitis and came to the hospital for antibiotics. He does follow with Dr Ratliff at wound center outpatient for a chronic wound to the left lower leg and also he has wound with drainage right lower leg. He began taking an old antibiotic prescription at home. He was recently admitted to this facility 05/12/22 to 05/23/22 for acute kidney injury during that admission he was treated for right leg cellulitis and acute kidney injury he was treated and discharged home on oral keflex. He had staphylococcus aureus, proteus penneri, and alcaligen faecalis on his previous wound culture. 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 He denies fever or chills. Denies shortness of breath. Patient presents with sodium level of 132 and creatinine is increased up to 1.68. Has some leukocytosis 15.0. He is admitted for lower extremity cellulitis and Dr. Silva has been placed on consultation. Patient received a dose of IV unasyn and started on empiric antibiotic coverage with IV vancomycin. Patient is receiving IV fluids at 130 cc per hour and blood pressure remains on the lower side 88 systolic. Venous doppler of left leg negative for DVT. There is question of possible allergic reaction to lasix his previous hospital admission. 06/30/22 Patient is evaluated today sitting up in chair. No acute events overnight. He continues to report pain about 6-7/10 to his left lower extremity and tender to touch. He continues on IV vancomycin. Local wound care being done. Blood cultures are pending. Blood pressure has improved to 139/55 and IV fluids have been decreased. Labs Today showing white count of 8.51, hgb 9.8, sodium 137, potassium 3.8, BUN 25, creatinine 1.14. Blood glucose in the 130s, calcium 7.5. Remains afebrile. 07/01/2022 Patient is currently lying in bed. Awake alert and oriented x3. Still complains of left lower extremity pain and swelling and redness. No fever no chills. No cough or sputum production. No nausea vomiting abdominal pain or diarrhea. Continues on antibiotics in the form of IV vancomycin. Blood sugars controlled. 07/02/2022 Patient is resting well. Pain is controlled with [place] 5. Patient has been afebrile. Hemodynamically stable and is currently on room air saturating at 96%. No headache or dizziness or lightheadedness. No cough or sputum production. No chest pain or shortness of breath. Still having left lower extremity redness and swelling and pain., Mainly in the thigh region. Continued on wound care. Laboratory data showed WBC 10.4 hemoglobin 11.1 platelets 360 Sodium 138 potassium 4.2 chloride 105 bicarb is 24 BUN 13 and creatinine 0.87 and calcium 8.2 07/03/2022 Patient is seen and evaluated in follow-up this morning currently maintained on IV antibiotics with infectious disease following closely. Patient is continued with local wound care and awaiting infectious disease recommendations. Patient is continued on IV cefepime along with vancomycin. Patient will need ECF once discharged and social work following working on [employer] music. Patient is afebrile denies chest pain or shortness of breath. Patient denies nausea or vomiting and is tolerating diet. 07/04/2022 Patient is seen and evaluated in follow-up continued on IV antibiotics with infectious disease following. Will be continued on at least 24-48 more hours of IV antibiotics and will reevaluate if requiring IV antibiotics or oral on discharge. Patient with significant wounds and redness recommend to continue with local wound care and frequent position changes. Encouraged increased activity as tolerated. Social work following and arranging ECF once stable and discharged. Afebrile with no reports of chest pain or shortness of breath. 07/05/2022 Patient is seen in follow up this am and currently sitting up in the chair with bilateral lower extremities wrapped although legs are dependent and swollen. Swelling is significant and more so on the left. Erythema noted at the bend of the left leg with patient reported pain and continued weakness. Patient is reporting having difficulty getting up due to the swelling of the legs that is causing pain and immobility. ID following and continued on daptomycin and cefepime. Awaiting clinical response before deciding if IV abx are needed on discharge. Unfortunately no cultures were taken. Patient is afebrile and denies chest pain or shortness of breath. Tolerating diet 07/06/2022 Patient is seen in follow-up this morning with continued IV antibiotics and is to receive a PICC line to continue with Daptomycin. Patient to continue local wound care and elevate lower extremities. Patient blood pressure elevated and will resume blood pressure medications. Afebrile and denies chest pain or shortness of breath. Current medications reviewed. Review of Systems Constitutional: Denied any fatigue denied any fever. Cardio vascular: denied any chest pain, palpitations Gastrointestinal: denied any nausea, vomiting, diarrhea Pulmonary: Denied any shortness of breath, denies cough Neurologic denied any new focal deficits, reports weakness and lower extremity pain PHYSICAL EXAMINATION: GENERAL: The patient is alert and oriented x3, not in any acute distress. Well developed, well nourished. Obese. HEENT: Pupils are round and equally reacting to light. EOMI. No scleral icterus. No conjunctival pallor. Normocephalic, atraumatic. No pharyngeal erythema. No thyromegaly. CARDIOVASCULAR: S1 and S2 present. No murmurs, rubs, or gallops. PULMONARY: Chest is clear to auscultation, no wheezing or crackles. ABDOMEN: Soft, non-tender, non-distended, normoactive bowel sounds. No palpable organomegaly. obese. MUSCULOSKELETAL: No joint swelling or deformity. EXTREMITIES: No cyanosis, clubbing, or pedal edema. NEUROLOGICAL: Gross neurological examination did not reveal any focal deficits. SKIN: Patient has bilateral lower extremity chronic skin changes. There is erythma lower extremity on the left extending up to the groin with some im provement. He has wound to outer aspect of right lower extremity with slough. He also reports wound to left lower leg. Bilateral venous stasis ulcer. Assessment: Lower extremity cellulitis secondary to bilateral lower extremity venous stasis ulcer, present on admission Hyponatremia hypovolemic. Improved. Acute kidney injury most likely prerenal, improving Chronic kidney disease stage II Chronic IVC Filter occlusion Chronic leukocytosis History of PE/DVT maintained on xarelto at home Hypothyroidism Diabetes Mellitus Hypertension Chronic lower extremity lymphedema Hyperlipidemia History of asthma not in acute exacerbation History Factor 5 Leiden Deficiency Occasional alcohol use Gastroesophageal Reflux Disease Osteoarthritis Morbid Obesity GI prophylaxis DVT prophylaxis Full code Plan Recommend to continue with local wound care as well as IV abx in the form of cefepime and daptomycin. ID following closely. Recommending continuing IV abx in the outpatient setting in the form of daptomycin. Plan is for PIcc line placement. Significant swelling and redness of the left persists. Slightly improved. Encouraged increased activity as tolerated Case management/social work following and will be going to [facility]. Continue PT/OT daily Encourage oral intake Frequent position changes, and continuing to elevate lower extremities while at rest Due to multiple complex medical issued, prognosis is guarded. Possible discharge in 24 hours. The impression and plan of care has been dictated by Mary Sanderson, Nurse Practitioner as directed. Dr. Darryn MD I have performed a history and examination and MDM of this patient, discussed the same with the dictator, and agree with the dictator's assessment and plan a s written ,documented as a scribe. Based on total visit time, I have performed more than 50% of the visit. Objective - Vital Signs Vital signs: Vital Signs Temp 97.9 F 07/06/22 08:00 Pulse 87 07/06/22 08:00 Resp 18 07/06/22 08:00 BP 180/75 07/06/22 08:00 Pulse Ox 96 07/06/22 08:00 FiO2 Intake & Output 07/05/22 07/06/22 07/06/22 18:59 06:59 18:59 Intake Total 825 Output Total 800 700 Balance -800 125 Weight 140.614 kg Intake: IV 825 Sodium Chloride 0.9% 1, 825 000 ml @ 75 mls/hr IV . [id number] [facility] Rx#:[id number] Output: Urine 800 700 Other: Voiding Method Urinal Toilet - Labs CBC & Chem 7: 07/05/22 06:05 07/05/22 06:05 Labs: Abnormal Lab Results - Last 24 Hours (Table) 07/05/22 07/05/22 07/05/22 Range/Units 06:05 06:05 11:13 RBC 3.56 L (4.40-5.60) X 10*6/uL Hgb 10.2 L (13.0-17.0) g/dL Hct 33.2 L (39.6-50.0) % MCHC 30.7 L (32.0-37.0) g/dL RDW 16.8 H (11.5-14.5) % MPV 9.4 L (9.5-12.2) fL Immature Gran # 0.30 H (0.00-0.04) X 10*3/uL Neutrophils # 7.81 H (1.80-7.70) X 10*3/uL Lymphocytes # 0.49 L (0.90-5.00) X 10*3/uL Eosinophils # 0.47 H (0.04-0.35) X 10*3/uL Anion Gap 9.60 L (10.00-18.00) mmol/L BUN/Creatinine Ratio 11.18 L (12.00-20.00) Ratio Glucose 140 H (70-110) mg/dL POC Glucose (mg/dL) 138 H (70-110) mg/dL Calcium 8.2 L (8.7-10.3) mg/dL Total Bilirubin 0.20 L (0.30-1.20) mg/dL C-Reactive Protein 4.00 H (0.00-0.80) mg/dL Total Protein 5.4 L (6.2-8.2) g/dL Albumin 2.6 L (3.8-4.9) g/dL Albumin/Globulin Ratio 0.93 L (1.60-3.17) g/dL 07/05/22 07/05/22 07/06/22 Range/Units 16:30 21:18 06:11 RBC (4.40-5.60) X 10*6/uL Hgb (13.0-17.0) g/dL Hct (39.6-50.0) % MCHC (32.0-37.0) g/dL RDW (11.5-14.5) % MPV (9.5-12.2) fL Immature Gran # (0.00-0.04) X 10*3/uL Neutrophils # (1.80-7.70) X 10*3/uL Lymphocytes # (0.90-5.00) X 10*3/uL Eosinophils # (0.04-0.35) X 10*3/uL Anion Gap (10.00-18.00) mmol/L BUN/Creatinine Ratio (12.00-20.00) Ratio Glucose (70-110) mg/dL POC Glucose (mg/dL) 150 H 163 H 129 H (70-110) mg/dL Calcium (8.7-10.3) mg/dL Total Bilirubin (0.30-1.20) mg/dL C-Reactive Protein (0.00-0.80) mg/dL Total Protein (6.2-8.2) g/dL Albumin (3.8-4.9) g/dL Albumin/Globulin Ratio (1.60-3.17) g/dL
[2022-07-06 20:49] LABS: Glucose,Whole Blood 141 mg/dL (70-110)
[2022-07-06] MEDS: MONTELUKAST 10 MG TAB PO SCH (21:02)
[2022-07-07] MEDS: HYDROcodone/APAP 5-325MG 1 EACH TAB PO PRN ×2 (03:09→14:04)
[2022-07-07] MEDS: tiZANidine 4 MG TAB PO PRN (03:09)
[2022-07-07 06:15] LABS: Glucose,Whole Blood 142 mg/dL (70-110)
[2022-07-07] MEDS: LEVOTHYROXINE 100 MCG TAB PO SCH (06:36)
[2022-07-07] MEDS: INSULIN ASPART (NovoLOG) 100 UNIT/ML VIAL SQ SCH ×3 (06:37→16:51)
[2022-07-07] MEDS: CEFEPIME 2 GM in SODIUM CHLORIDE 0.9% 100 ML IVPB SCH ×2 (08:52→17:28)
[2022-07-07] MEDS: FAMOTIDINE 20 MG TAB PO SCH (08:53)
[2022-07-07] MEDS: PIOGLITAZONE 15 MG TAB PO SCH (08:53)
[2022-07-07] MEDS: DILTIAZEM CD 240 MG CAP.ER.24H PO SCH (08:53)
[2022-07-07] MEDS: LOSARTAN 50 MG TAB PO SCH (08:53)
[2022-07-07] MEDS: SYMBICORT 160-4.5 MCG INHALER INHALATION SCH (08:55)
--- NOTE | 2022-07-07 09:46 | P.PN ---
Subjective Progress Note Date: 07/05/22 Principal diagnosis: Bilateral lower extremity ulcer and cellulitis Patient is a 77-year-old male with a past medical history significant for bilateral lower extremity venous stasis ulcer and history of recurrent cellulitis presented to hospital with another episode of cellulitis. On today's evaluation that is 07/05/2022, the patient remains to be afebrile the patient is breathing comfortably on room air, the patient denies chest pain or shortness of breath or cough, patient pain and redness to the left lower extremity has slightly decreased in intensity Objective - Vital Signs Vital signs: Vital Signs Temp 98.3 F 07/05/22 08:00 Pulse 91 07/05/22 08:00 Resp 18 07/05/22 08:00 BP 151/84 07/05/22 08:00 Pulse Ox 93 L 07/05/22 08:00 FiO2 Intake & Output 07/04/22 07/05/22 07/05/22 18:59 06:59 18:59 Output Total 300 600 Balance -300 -600 Output: Urine 300 600 Other: Voiding Method Urinal Urinal - Exam GENERAL DESCRIPTION: An elderly male lying in bed in no distress RESPIRATORY SYSTEM: Unlabored breathing , decreased breath sounds at bases HEART: S1 S2 regular rate and rhythm , ABDOMEN: Soft , no tenderness EXTREMITIES: Bilateral lower extremity and currently wrapped, patient noticed to have more redness to the left leg - Labs CBC & Chem 7: 07/05/22 06:05 07/05/22 06:05 Labs: Abnormal Lab Results - Last 24 Hours (Table) 07/04/22 07/04/22 07/04/22 Range/Units 17:29 19:40 22:10 RBC (4.40-5.60) X 10*6/uL Hgb (13.0-17.0) g/dL Hct (39.6-50.0) % MCHC (32.0-37.0) g/dL RDW (11.5-14.5) % MPV (9.5-12.2) fL Immature Gran # (0.00-0.04) X 10*3/uL Neutrophils # (1.80-7.70) X 10*3/uL Lymphocytes # (0.90-5.00) X 10*3/uL Eosinophils # (0.04-0.35) X 10*3/uL Anion Gap (10.00-18.00) mmol/L BUN/Creatinine Ratio (12.00-20.00) Ratio Glucose (70-110) mg/dL POC Glucose (mg/dL) 172 H 182 H 153 H (70-110) mg/dL Calcium (8.7-10.3) mg/dL Total Bilirubin (0.30-1.20) mg/dL C-Reactive Protein (0.00-0.80) mg/dL Total Protein (6.2-8.2) g/dL Albumin (3.8-4.9) g/dL Albumin/Globulin Ratio (1.60-3.17) g/dL 07/05/22 07/05/22 07/05/22 Range/Units 06:05 06:05 06:08 RBC 3.56 L (4.40-5.60) X 10*6/uL Hgb 10.2 L (13.0-17.0) g/dL Hct 33.2 L (39.6-50.0) % MCHC 30.7 L (32.0-37.0) g/dL RDW 16.8 H (11.5-14.5) % MPV 9.4 L (9.5-12.2) fL Immature Gran # 0.30 H (0.00-0.04) X 10*3/uL Neutrophils # 7.81 H (1.80-7.70) X 10*3/uL Lymphocytes # 0.49 L (0.90-5.00) X 10*3/uL Eosinophils # 0.47 H (0.04-0.35) X 10*3/uL Anion Gap 9.60 L (10.00-18.00) mmol/L BUN/Creatinine Ratio 11.18 L (12.00-20.00) Ratio Glucose 140 H (70-110) mg/dL POC Glucose (mg/dL) 136 H (70-110) mg/dL Calcium 8.2 L (8.7-10.3) mg/dL Total Bilirubin 0.20 L (0.30-1.20) mg/dL C-Reactive Protein 4.00 H (0.00-0.80) mg/dL Total Protein 5.4 L (6.2-8.2) g/dL Albumin 2.6 L (3.8-4.9) g/dL Albumin/Globulin Ratio 0.93 L (1.60-3.17) g/dL 07/05/22 Range/Units 11:13 RBC (4.40-5.60) X 10*6/uL Hgb (13.0-17.0) g/dL Hct (39.6-50.0) % MCHC (32.0-37.0) g/dL RDW (11.5-14.5) % MPV (9.5-12.2) fL Immature Gran # (0.00-0.04) X 10*3/uL Neutrophils # (1.80-7.70) X 10*3/uL Lymphocytes # (0.90-5.00) X 10*3/uL Eosinophils # (0.04-0.35) X 10*3/uL Anion Gap (10.00-18.00) mmol/L BUN/Creatinine Ratio (12.00-20.00) Ratio Glucose (70-110) mg/dL POC Glucose (mg/dL) 138 H (70-110) mg/dL Calcium (8.7-10.3) mg/dL Total Bilirubin (0.30-1.20) mg/dL C-Reactive Protein (0.00-0.80) mg/dL Total Protein (6.2-8.2) g/dL Albumin (3.8-4.9) g/dL Albumin/Globulin Ratio (1.60-3.17) g/dL Microbiology - Last 24 Hours (Table) 06/28/22 23:45 Blood Culture - Final Blood No Growth after 144 hours 06/28/22 23:30 Blood Culture - Final Blood No Growth after 144 hours Assessment and Plan (1) Cellulitis of left lower extremity Current Visit: Yes Status: Acute Code(s): L03.116 - CELLULITIS OF LEFT LOWER LIMB SNOMED Code(s): 739102388 (2) Cellulitis of right leg Current Visit: No Status: Acute Code(s): L03.115 - CELLULITIS OF RIGHT LOWER LIMB SNOMED Code(s): 766318282 Plan: 1patient with bilateral lower extremity venous stasis ulcer and cellulitis right greater than the left in this patient did have evidence of slough tissue especially to the right lower extremity with some surrounding redness we need to cover for the gram-positive skin noe patient seem to have failed outpatient oral Keflex therapy. 2local wound care to the left lower extremity with a dry Aquacel silver dressing and Zeus wrap. 3local wound care to the right lower extremity wound with the Medihoney f ollowed by moist dressing change daily. 4patient did have some improvement to the left leg cellulitis with addition of the daptomycin which will be continued Time with Patient: Less than 30
--- NOTE | 2022-07-07 09:47 | P.PN ---
Subjective Progress Note Date: 07/06/22 Principal diagnosis: Bilateral lower extremity ulcer and cellulitis Patient is a 77-year-old male with a past medical history significant for bilateral lower extremity venous stasis ulcer and history of recurrent cellulitis presented to hospital with another episode of cellulitis. On today's evaluation that is 07/06/2022, the patient continues to be afebrile the patient is breathing comfortably on room air, the patient denies chest pain or shortness of breath or cough, patient pain and redness to the left lower extremity has slightly decreased and denies any worsening or foul-smelling drainage no diarrhea Objective - Vital Signs Vital signs: Vital Signs Temp 97.9 F 07/06/22 08:00 Pulse 87 07/06/22 08:00 Resp 18 07/06/22 08:00 BP 180/75 07/06/22 08:00 Pulse Ox 96 07/06/22 08:00 FiO2 Intake & Output 07/05/22 07/06/22 07/06/22 18:59 06:59 18:59 Intake Total 825 Output Total 800 700 Balance -800 125 Weight 140.614 kg Intake: IV 825 Sodium Chloride 0.9% 1, 825 000 ml @ 75 mls/hr IV . [id number] [facility] Rx#:[id number] Output: Urine 800 700 Other: Voiding Method Urinal Toilet - Exam GENERAL DESCRIPTION: An elderly male lying in bed in no distress RESPIRATORY SYSTEM: Unlabored breathing , decreased breath sounds at bases HEART: S1 S2 regular rate and rhythm , ABDOMEN: Soft , no tenderness EXTREMITIES: Bilateral lower extremity wounds with the no slough tissue, did have some slough tissue to the left knee wound, patient left thigh redness has decreased - Labs CBC & Chem 7: 07/05/22 06:05 07/05/22 06:05 Labs: Abnormal Lab Results - Last 24 Hours (Table) 07/05/22 07/05/22 07/06/22 Range/Units 16:30 21:18 06:11 POC Glucose (mg/dL) 150 H 163 H 129 H (70-110) mg/dL 07/06/22 Range/Units 11:50 POC Glucose (mg/dL) 127 H (70-110) mg/dL Assessment and Plan (1) Cellulitis of left lower extremity Current Visit: Yes Status: Acute Code(s): L03.116 - CELLULITIS OF LEFT LOWER LIMB SNOMED Code(s): 856634914 (2) Cellulitis of right leg Current Visit: No Status: Acute Code(s): L03.115 - CELLULITIS OF RIGHT LOWER LIMB SNOMED Code(s): 766633653 Plan: 1patient with bilateral lower extremity venous stasis ulcer and cellulitis right greater than the left in this patient did have evidence of slough tissue especially to the right lower extremity with some surrounding redness we need to cover for the gram-positive skin noe patient seem to have failed outpatient oral Keflex therapy. 2local wound care to the left lower extremity with a dry Aquacel silver dressi ng and Zeus wrap. 3local wound care to the right lower extremity wound with Aquacel silver dressing followed by Zeus wrap, apply Medihoney followed by moist dressing to the left knee wound 4patient did have some improvement to the left leg cellulitis with addition of the daptomycin which will be continued, we will obtain a PICC line and continue with IV daptomycin on discharge 10 days Time with Patient: Less than 30
[2022-07-07] MEDS ORDERED: guaiFENesin 600 MG TABLET.ER PO SCH (10:15)
[2022-07-07] MEDS ORDERED: IPRATROPIUM-ALBUTEROL 3 ML NEB INHALATION PRN (10:15)
[2022-07-07] MEDS: SODIUM CHLORIDE 0.9% 1,000 ML IV SCH (10:34)
--- NOTE | 2022-07-07 10:45 | XR ---
EXAMINATION TYPE: XR chest 1V portable DATE OF EXAM: 07/07/2022 10:36 AM COMPARISON: Chest radiographs from TECHNIQUE: XR chest 1V portable 06/01/2022.. CLINICAL INDICATION:Male, 77 years old with history of cough, short of breath; FINDINGS: Lungs/Pleura: Evidence of pneumothorax. Chronic interstitial lung changes with blunting of the costop hrenic angles. Pulmonary vascularity: Mild pulmonary vascular congestion suggested. Heart/mediastinum: Cardiomediastinal silhouette is enlarged and stable. Musculoskeletal: No acute osseous pathology. IMPRESSION: Interstitial lung changes which have increased from prior on 10/20/2019 correlate for atypical pneumon ia. Correlate with serum BNP for a component of volume overload.
[2022-07-07 11:20] LABS: Glucose,Whole Blood 144 mg/dL (70-110)
[2022-07-07] MEDS: IPRATROPIUM-ALBUTEROL 3 ML NEB INHALATION SCH ×2 (12:03→12:04)
[2022-07-07] MEDS: ALBUTEROL HFA INHALER INHALATION PRN (12:22)
[2022-07-07] MEDS ORDERED: FUROSEMIDE 10 MG/ML 4 ML VIAL IV STA (12:36)
--- NOTE | 2022-07-07 12:58 | P.DS ---
Providers Date of admission: 06/28/22 23:57 Expected date of discharge: 07/07/22 Attending physician: Bayron Lemons MD Consults: 06/28/22 23:59 Consult Physician Routine Consulting Provider: Charisma Silva Consult Reason/Comments: cellulitis Do you want consulting provider notified?: Yes, Notify in am Primary care physician: Tatyana Mora Hospital Course: Final diagnosis Lower extremity cellulitis secondary to bilateral lower extremity venous stasis ulcer, present on admission Hyponatremia hypovolemic. Improved. 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 Patient will follow-up with Dr. Craft at the [facility] in the outpatient setting upon discharge. Patient will follow-up with Dr. Tatyana baez outpatient once discharged from rehab. Patient is to continue with daptomycin via PICC line for the next 10 days and close outpatient follow-up with Dr. Silva at his wound care center as scheduled. Total time taken is greater than 35 minutes. Hospital course This is a 77-year-old male who was recently admitted with chronic wounds that appeared more red with cellulitis with failure of outpatient treatment. Patient was taking some old medications from home with no improvement actually worsening and was admitted for infectious disease consultation. Patient continued with significant swelling of the lower extremities and antibiotic treatment and was switched recently to daptomycin showing improvement clinically and will receive a PICC line and continue with outpatient daptomycin for the next 10 days to complete the course. Strongly recommend follow-up at Dr. Silva's wound care center this week which was discussed with the patient. Patient also with some elevated kidney functions on admission although improved will resume low-dose Lasix as patient continues with swelling. Patient with a dry cough that occasionally producing some phlegm but just started a day ago and inhalers were resumed recommend continue with the albuterol 4 times daily and as needed along with Symbicort twice daily. Patient is maintained on Xarelto and will continue. Patient also incidentally found to be COVID-19 positive today when testing for discharge to [facility]. Patient is 98% on room air denies shortness of breath discontinues with a persistent cough. Will continue with vitamin and zinc supplements and also have added Mucinex along with as needed Robitussin for the cough. Recommend to continue monitoring Accu-Cheks before meals and at bedtime and treat with sliding scale. Currently no reports of chest pain, shortness of breath, or palpitations. Patient is afebrile. No reports of nausea or vomiting and patient is tolerating diet. Patient will be going to [facility] on the [place] today. Guarded prognosis. Physical exam: Gen: This is a 77-year-old male awake, alert and oriented 3, well-developed, well-nourished, obese HEENT: Head is atraumatic, normocephalic. Pupils equal, round. Sclerae is anicteric. NECK: Supple. No JVD. No lymphadenopathy. No thyromegaly. LUNGS: Diminished breath sounds bilaterally with some scattered rhonchi. No wheezing or crackles appreciated on exam. No intercostal retractions. HEART: S1, S2 are muffled. No murmur. ABDOMEN: Soft. Obese. Bowel sounds are present. No masses. No tenderness. EXTREMITIES: Bilateral pedal edema. No calf tenderness. Patient has bilateral lower extremity chronic skin changes. There is erythma lower extremity on the left extending up to the groin with some improvement. He has wound to outer aspect of right lower extremity with slough. He also reports wound to left lower leg. Bilateral venous stasis ulcer. NEUROLOGICAL: Patient is awake, alert and oriented x3. Cranial nerves 2 through 12 are grossly intact. diffusely weak Please refer to medication reconciliation sheet for a list of medications. The impression and plan of care has been dictated by Mary Sanderson, Nurse Practitioner as directed. Dr. Darryn MD I have performed a history and examination and MDM of this patient, discussed the same with the dictator, and agree with the dictator's assessment and plan as written ,documented as a scribe. Based on total visit time, I have performed more than 50% of the visit. Patient Condition at Discharge: Fair Plan - Discharge Summary Discharge Rx Participant: No New Discharge Prescriptions: New guaiFENesin [Mucinex] 600 mg PO Q12HR tab HYDROcodone/APAP 5-325MG [Shelley 5-325] 1 each PO Q6HR PRN #6 tab PRN Reason: Moderate to severe Pain INSULIN ASPART (NovoLOG) [NovoLOG (formulary)] 0 unit SQ ACHS each guaiFENesin SYRUP 100MG/5ML [Robitussin] 0 mg PO Q6H 10 Days #120 ml Acetaminophen Tab [Tylenol] 650 mg PO Q6HR PRN tab PRN Reason: Fever and/ or Mild Pain Ascorbic Acid [Vitamin C] 1,000 mg PO DAILY 30 Days #30 tablet Cholecalciferol (Vitamin D3) [Vitamin D3 (125 MCG = 5,000 IU)] 125 mcg PO DAILY 30 Days #30 cap Zinc Sulfate 220 mg PO DAILY 14 Days #14 capsule DAPTOmycin [Cubicin Rf] 500 mg IV Q24H #10 each Famotidine [Pepcid] 20 mg PO DAILY tab Budesonide-Formot 160-4.5 Mcg [Symbicort 160-4.5 Mcg Inhaler] 2 puff INHALATION RT-BID each Furosemide [Lasix] 40 mg PO DAILY 30 Days #30 tablet Continue Atorvastatin [Lipitor] 10 mg PO PC-LUNCH Levothyroxine Sodium [Synthroid] 200 mcg PO DAILY Montelukast Sodium [Singulair] 10 mg PO HS tiZANidine HCL [Zanaflex] 4 mg PO TID PRN PRN Reason: Muscle Spasm Losartan [Cozaar] 50 mg PO DAILY Rivaroxaban [Xarelto] 20 mg PO DAILY@1600 Pioglitazone [Actos] 15 mg PO DAILY dilTIAZem HCL [dilTIAZem [id number] ER (CD)] 240 mg PO DAILY Changed Albuterol Sulfate [Ventolin HFA] 2 puff INHALATION RT-Q4H #0 Discontinued Omeprazole [PriLOSEC] 20 mg PO HS Discharge Medication List Atorvastatin [Lipitor] 10 mg PO PC-LUNCH 10/04/17 [History] Levothyroxine Sodium [Synthroid] 200 mcg PO DAILY 10/20/19 [History] Montelukast Sodium [Singulair] 10 mg PO HS 10/20/19 [History] tiZANidine HCL [Zanaflex] 4 mg PO TID PRN 03/31/20 [History] Rivaroxaban [Xarelto] 20 mg PO DAILY@1600 05/03/21 [History] Pioglitazone [Actos] 15 mg PO DAILY 05/12/22 [History] dilTIAZem HCL [dilTIAZem [id number] ER (CD)] 240 mg PO DAILY 05/12/22 [History] Losartan [Cozaar] 50 mg PO DAILY 06/29/22 [History] DAPTOmycin [Cubicin Rf] 500 mg IV Q24H #10 each 07/06/22 [Rx] Acetaminophen Tab [Tylenol] 650 mg PO Q6HR PRN tab 07/07/22 [Rx] Albuterol Sulfate [Ventolin HFA] 2 puff INHALATION RT-Q4H #0 07/07/22 [Rx] Ascorbic Acid [Vitamin C] 1,000 mg PO DAILY 30 Days #30 tablet 07/07/22 [Rx] Budesonide-Formot 160-4.5 Mcg [Symbicort 160-4.5 Mcg Inhaler] 2 puff INHALATION RT-BID each 07/07/22 [Rx] Cholecalciferol (Vitamin D3) [Vitamin D3 (125 MCG = 5,000 IU)] 125 mcg PO DAILY 30 Days #30 cap 07/07/22 [Rx] Famotidine [Pepcid] 20 mg PO DAILY tab 07/07/22 [Rx] Furosemide [Lasix] 40 mg PO DAILY 30 Days #30 tablet 07/07/22 [Rx] HYDROcodone/APAP 5-325MG [Shelley 5-325] 1 each PO Q6HR PRN #6 tab 07/07/22 [Rx] INSULIN ASPART (NovoLOG) [NovoLOG (formulary)] 0 unit SQ ACHS each 07/07/22 [Rx] Zinc Sulfate 220 mg PO DAILY 14 Days #14 capsule 07/07/22 [Rx] guaiFENesin SYRUP 100MG/5ML [Robitussin] 0 mg PO Q6H 10 Days #120 ml 07/07/22 [Rx] guaiFENesin [Mucinex] 600 mg PO Q12HR tab 07/07/22 [Rx] Follow up Appointment(s)/Referral(s): Tatyana Mora MD [Primary Care Provider] - 1-2 days Brea Tavarez, [NON-STAFF] - As Needed Charisma Silva MD [STAFF PHYSICIAN] - 1 Week ([phone] call office to make an appointment) Ambulatory/Diagnostic Orders: Basic Metabolic Panel [LAB.AMB] Time Frame: 3 Days, Location: None Selected Activity/Diet/Wound Care/Special Instructions: Patient is going to [facility] on the [facility] [employer] as tolerated Continue local wound care Aquacel silver dressing to bilateral lower extremity wound change every 48 hour Medihoney to the left knee wound change daily To need to elevate lower extremities while at rest Patient has received a PICC line and will be receiving daptomycin daily for the next 10 days to complete the course Follow-up with Dr. Silva in the wound care clinic Follow-up with primary care provider on discharge Recommend repeat labs of BMP in 2-3 days Continue with albuterol and Symbicort inhaler Continue to monitor Accu-Cheks before meals and at bedtime and continue with sliding scale NovoLog sliding scale 0-150 equals 0 units 151-200 equals 2 units 201-250 equals 4 units 251-300 equals 6 units 301-350 equals 8 units 351-400 equals 10 units Please notify provider if blood sugar is 400 or above Follow-up with Dr. Silva in the wound care center 1 week, call [phone] to make an appointment Discharge Disposition: TRANSFER TO SNF/ECF
[2022-07-07] MEDS ORDERED: LIDOCAINE 1% INJ 10MG/ML (30 ML VIAL-PF) SQ ONE (13:15)
--- NOTE | 2022-07-07 13:40 | XR ---
EXAMINATION TYPE: XR chest 1V confirm line [facility] DATE OF EXAM: 07/07/2022 COMPARISON: 07/07/2010 HISTORY: PICC line placement TECHNIQUE: Single frontal view of the chest is obtained. FINDINGS: Bilateral infiltrate and pleural effusion. Underlying COPD and chronic interstitial lung d isease. Arthropathy of the shoulders. PICC line seen with tip overlying the SVC. Hypertrophic arthrop athy of the vertebral column. The lung bases not entirely included in the exam. IMPRESSION: 1. PICC line in good position. 2. Bilateral infiltrate and small effusion. 3. COPD
--- NOTE | 2022-07-07 14:08 | IR ---
PICC LINE PLACEMENT: HISTORY: Infection requiring long-term antibiotic therapy PROCEDURE: Ultrasound guidance of PICC line placement. PLAY BACK OPERATOR: COMPLICATIONS: None ANESTHESIA: 1. 1% Lidocaine locally. FINDINGS/TECHNIQUE: The procedure was explained to the patient. The risks, complications, benefits and alternatives were discussed and any questions were answered. Informed consent was obtained. The patient was placed supine on the fluoroscopic table and prepped and draped in the usual sterile fash ion. Utilizing a 21 gauge needle and sonographic guidance, access in the left basilic vein was achi eved and there is placement of a 0.018 guidewire. The vein is patent. A 5-F. sheath was placed over the guidewire. The guidewire and dilator were removed and a 5-F. Double lumen PICC line was placed through the sheath with the chest x-ray confirming the tip at the level of the SVC. The sheath was r emoved, the catheter was flushed and sutured into position. The patient was stable throughout the pr ocedure and remained stable upon discharge from the Department of Radiology. The vein puncture was patent under ultrasound. A brar scale image was obtained to document patency of the vein punctured. All elements of the maximal barrier technique were utilized. IMPRESSION: 1. Successful PICC line placement under ultrasound performed bedside.
[2022-07-07 15:46] VITALS: BP 138/75; PULSE 86; RESP 17; TEMP 98.7
[2022-07-07 16:28] LABS: Glucose,Whole Blood 233 mg/dL (70-110)
[2022-07-07] MEDS: RIVAROXABAN 20 MG TAB PO SCH (16:51)
== END 2022-07-07 17:47 | DRG 637 ==
LOC: EC 18:43 → 6NMEDSUR 23:57 → 4SSUR 07-05 02:07
PROVIDERS: ADMIT Internal Medicine; ATTEND Internal Medicine
PROC: 02HV33Z Insertion of Infusion Device into Superior Vena Cava, Percutaneous Approach (ICD-10-PCS; principal; 2022-07-07 07:30)
DX: E11.628 Type 2 diabetes mellitus with other skin complications (principal); U07.1 COVID-19; L97.929 Non-pressure chronic ulcer of unspecified part of left lower leg with unspecified severity; T82.868A Thrombosis due to vascular prosthetic devices, implants and grafts, initial encounter; E87.1 Hypo-osmolality and hyponatremia; L03.115 Cellulitis of right lower limb; D68.51 Activated protein C resistance; L03.116 Cellulitis of left lower limb; L97.919 Non-pressure chronic ulcer of unspecified part of right lower leg with unspecified severity; Z68.41 Body mass index [BMI] 40.0-44.9, adult; I12.9 Hypertensive chronic kidney disease with stage 1 through stage 4 chronic kidney disease, or unspecified chronic kidney disease; E03.9 Hypothyroidism, unspecified; E66.01 Morbid (severe) obesity due to excess calories; J45.909 Unspecified asthma, uncomplicated; N17.9 Acute kidney failure, unspecified; I83.019 Varicose veins of right lower extremity with ulcer of unspecified site; I83.029 Varicose veins of left lower extremity with ulcer of unspecified site; I95.9 Hypotension, unspecified; I89.0 Lymphedema, not elsewhere classified; T50.2X6A Underdosing of carbonic-anhydrase inhibitors, benzothiadiazides and other diuretics, initial encounter; N18.2 Chronic kidney disease, stage 2 (mild); M79.89 Other specified soft tissue disorders; M21.379 Foot drop, unspecified foot; E86.1 Hypovolemia; E78.5 Hyperlipidemia, unspecified; K21.9 Gastro-esophageal reflux disease without esophagitis; E11.69 Type 2 diabetes mellitus with other specified complication; M19.90 Unspecified osteoarthritis, unspecified site; Y71.1 Therapeutic (nonsurgical) and rehabilitative cardiovascular devices associated with adverse incidents; E11.22 Type 2 diabetes mellitus with diabetic chronic kidney disease; E11.622 Type 2 diabetes mellitus with other skin ulcer; Z28.310 Unvaccinated for COVID-19; Z86.711 Personal history of pulmonary embolism; Z86.718 Personal history of other venous thrombosis and embolism; Z79.899 Other long term (current) drug therapy; Z79.890 Hormone replacement therapy; Z79.84 Long term (current) use of oral hypoglycemic drugs; Z79.01 Long term (current) use of anticoagulants; Z91.040 Latex allergy status; Z91.013 Allergy to seafood; Z88.5 Allergy status to narcotic agent; Z88.8 Allergy status to other drugs, medicaments and biological substances; Z91.041 Radiographic dye allergy status; Z87.891 Personal history of nicotine dependence; Z91.14 Patient's other noncompliance with medication regimen; Z86.14 Personal history of Methicillin resistant Staphylococcus aureus infection
CPT/HCPCS: 36415; 36573; 71045; 80048; 80053; 80202; 82565; 83036; 83605; 85025; 86140; 87040; 87635; 94640; 96360; 96361; 99284

== ENCOUNTER → 2022-08-07 | Outpatient (CLI) | payer MEDICARE, BC ==
[2022-08-07 22:54] LABS: ALT 15 U/L (10-49); AST 19 U/L (14-35); African American GFR (CKD) 75.7 (60.0-200.0); Albumin 3.8 g/dL (3.8-4.9); Albumin/Globulin Ratio 0.95 (1.60-3.17); Alkaline Phosphatase 132 U/L (41-126); BUN/Creat Ratio 17.45 Ratio (12.00-20.00); Blood Urea Nitrogen 19.2 mg/dL (9.0-27.0); Calcium 9.5 mg/dL (8.7-10.3); Carbon Dioxide 28.8 mmol/L (20.0-27.5); Chloride 97 mmol/L (96-109); Glucose 119 mg/dL (70-110); Non-African American GFR(CKD) 65.3 (60.0-200.0); Sodium 138 mmol/L (135-145); Total Protein 7.8 g/dL (6.2-8.2)
== END | disposition home or self-care (01) ==
LOC: LABWHC1 15:21
PROVIDERS: ATTEND Family Medicine
DX: E03.9 Hypothyroidism, unspecified (principal); E29.1 Testicular hypofunction
CPT/HCPCS: 36415; 80053; 84403; 84443

== ENCOUNTER → 2022-11-27 | Outpatient (CLI) | payer MEDICARE, BC ==
[2022-11-28 05:59] LABS: Chol/HDL Ratio 3.14 Ratio; LDL Cholesterol,Calculated 71.7 mg/dL (0.0-131.0)
[2022-11-28 06:00] LABS: ALT 14 U/L (10-49); AST 24 U/L (14-35); African American GFR (CKD) 75.7 (60.0-200.0); Albumin 3.6 g/dL (3.8-4.9); Albumin/Globulin Ratio 1.13 (1.60-3.17); Alkaline Phosphatase 123 U/L (41-126); BUN/Creat Ratio 12.36 Ratio (12.00-20.00); Blood Urea Nitrogen 13.6 mg/dL (9.0-27.0); Calcium 9.1 mg/dL (8.7-10.3); Carbon Dioxide 27.4 mmol/L (20.0-27.5); Chloride 102 mmol/L (96-109); Globulin 3.2 g/dL (1.6-3.3); Glucose 82 mg/dL (70-110); Non-African American GFR(CKD) 65.3 (60.0-200.0); Potassium 4.7 mmol/L (3.5-5.5); Sodium 139 mmol/L (135-145); Total Protein 6.8 g/dL (6.2-8.2)
== END | disposition home or self-care (01) ==
LOC: LABWHC1 15:04
PROVIDERS: ATTEND Family Medicine
DX: I10 Essential (primary) hypertension (principal); E11.9 Type 2 diabetes mellitus without complications; E78.00 Pure hypercholesterolemia, unspecified
CPT/HCPCS: 36415; 80053; 80061; 83036

== ENCOUNTER 2023-03-25 14:06 | Inpatient (IN) | payer MEDICARE, BC ==
[2023-03-25 15:11] LABS: ALT 18 U/L (4-49); AST 27 U/L (17-59); African American GFR (CKD) 38 (>60 ml/min/1.73 sqM); Alkaline Phosphatase 116 U/L (38-126); Anion Gap 11 mmol/L; Blood Urea Nitrogen 40 mg/dL (9-20); Calcium 8.2 mg/dL (8.4-10.2); Carbon Dioxide 21 mmol/L (22-30); Chloride 99 mmol/L (98-107); Non-African American GFR(CKD) 33 (>60 ml/min/1.73 sqM); Potassium 4.8 mmol/L (3.5-5.1); Sodium 131 mmol/L (137-145); Total Protein 6.6 g/dL (6.3-8.2)
[2023-03-25 15:22] LABS: Basophils % (A) 0 %; Eosinophils # (A) 0.1 k/uL (0-0.7); Eosinophils % (A) 1 %; HCT 37.4 % (39.0-53.0); HGB 12.2 gm/dL (13.0-17.5); Lymphocytes # (A) 0.4 k/uL (1.0-4.8); Lymphocytes % (A) 3 %; MCHC 32.5 g/dL (31.0-37.0); MCV 85.9 fL (80.0-100.0); Mean Platelet Volume 8.5; Monocytes # (A) 0.3 k/uL (0-1.0); Monocytes % (A) 3 %; Neutrophils # (A) 10.2 k/uL (1.3-7.7); Neutrophils % (A) 92 %; Platelet Count 207 k/uL (150-450); RBC 4.36 m/uL (4.30-5.90); RDW 15.9 % (11.5-15.5); WBC 11.1 k/uL (3.8-10.6)
[2023-03-25 15:29] LABS: Glucose 31 mg/dL (74-99)
[2023-03-25 15:33] LABS: Glucose,Whole Blood 34 mg/dL (70-110)
[2023-03-25] MEDS: DEXTROSE 50% SYRINGE 50 ML IVP STA ×2 (15:35→18:56)
[2023-03-25] MEDS ORDERED: NALOXONE 0.4 MG/ML 1 ML VIAL IV PRN (16:10)
[2023-03-25] MEDS ORDERED: ONDANSETRON 4 MG/2 ML VIAL IVP PRN (16:10)
--- NOTE | 2023-03-25 16:10 | ED ---
Extremity Problem HPI - General Chief complaint: Extremity Problem,Nontraumatic Stated complaint: Cellulitis in R Leg Time Seen by Provider: 03/25/23 14:22 Source: patient, EMS, RN notes reviewed Mode of arrival: EMS Limitations: physical limitation - History of Present Illness Initial comments: This a 77-year-old male presents emergency from via EMS chief complaint right leg infection. This is a recurrent issue for this patient he has chronic deformity issues with his right leg he is followed by wound center and PCP. Patient states she's had increased redness discomfort and drainage. Patient states he's had cellulitis in the past very consistent and has been hospitalized several times. He reports fevers and chills. Patient offers no associated symptoms. - Related Data Home Medications Medication Instructions Recorded Confirmed Atorvastatin [Lipitor] 10 mg PO PC-LUNCH 10/04/17 06/29/22 Levothyroxine Sodium [Synthroid] 200 mcg PO DAILY 10/20/19 06/29/22 Montelukast Sodium [Singulair] 10 mg PO HS 10/20/19 06/29/22 tiZANidine HCL [Zanaflex] 4 mg PO TID PRN 03/31/20 06/29/22 Rivaroxaban [Xarelto] 20 mg PO DAILY@1600 05/03/21 06/29/22 Pioglitazone [Actos] 15 mg PO DAILY 05/12/22 06/29/22 dilTIAZem HCL [dilTIAZem [id number] 240 mg PO DAILY 05/12/22 06/29/22 ER (CD)] Losartan [Cozaar] 50 mg PO DAILY 06/29/22 06/29/22 Previous Rx's Medication Instructions Recorded DAPTOmycin [Cubicin Rf] 500 mg IV Q24H #10 each 07/06/22 Acetaminophen Tab [Tylenol] 650 mg PO Q6HR PRN tab 07/07/22 Albuterol Sulfate [Ventolin HFA] 2 puff INHALATION RT-Q4H #0 07/07/22 Ascorbic Acid [Vitamin C] 1,000 mg PO DAILY 30 Days #30 07/07/22 tablet Budesonide-Formot 160-4.5 Mcg 2 puff INHALATION RT-BID each 07/07/22 [Symbicort 160-4.5 Mcg Inhaler] Cholecalciferol (Vitamin D3) 125 mcg PO DAILY 30 Days #30 cap 07/07/22 [Vitamin D3 (125 MCG = 5,000 IU)] Famotidine [Pepcid] 20 mg PO DAILY tab 07/07/22 Furosemide [Lasix] 40 mg PO DAILY 30 Days #30 tablet 07/07/22 HYDROcodone/APAP 5-325MG [[place] 1 each PO Q6HR PRN #6 tab 07/07/22 5-325] INSULIN ASPART (NovoLOG) [NovoLOG 0 unit SQ ACHS each 07/07/22 (formulary)] Zinc Sulfate 220 mg PO DAILY 14 Days #14 capsule 07/07/22 guaiFENesin SYRUP 100MG/5ML 0 mg PO Q6H 10 Days #120 ml 07/07/22 [Robitussin] guaiFENesin [Mucinex] 600 mg PO Q12HR tab 07/07/22 Allergies Allergy/AdvReac Type Severity Reaction Status Date / Time Iodinated Contrast Media Allergy Anaphylaxis Verified 06/29/22 10:46 iodine Allergy Anaphylaxis Verified 06/29/22 10:46 latex Allergy see comment Verified 06/29/22 10:46 shellfish derived Allergy Anaphylaxis Verified 06/29/22 10:46 shrimp Allergy Anaphylaxis Verified 06/29/22 10:46 tuna oil Allergy Unknown Verified 06/29/22 10:46 codeine AdvReac Rapid Verified 06/29/22 10:46 Heart Rate lisinopril AdvReac Cough Verified 06/29/22 10:46 Review of Systems ROS Statement: Those systems with pertinent positive or pertinent negative responses have been documented in the HPI. ROS Other: All systems not noted in ROS Statement are negative. Past Medical History Past Medical History: Asthma, Blood Disorder, Cancer, Diabetes Mellitus, Deep Vein Thrombosis (DVT), GERD/Reflux, GI Bleed, Hyperlipidemia, Hypertension, Osteoarthritis (OA), Pneumonia, Pulmonary Embolus (PE), Thyroid Disorder Additional Past Medical History / Comment(s): occular migraines, SOB with activity, hx cellulitis x 5, clotting disorder-Factor V- Leiden, basal cell skin ca(folicular), heart murmur, kidney stones, edema rt leg, History of Any Multi-Drug Resistant Organisms: None Reported, MRSA Date of last positivie culture/infection: 2012 MDRO Source:: bilateral legs Past Surgical History: Cholecystectomy, Hernia Repair, Tonsillectomy Additional Past Surgical History / Comment(s): 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 Father Family Medical History: No Reported History Additional Family Medical History / Comment(s): age 72. General Exam Limitations: no limitations, physical limitation General appearance: alert, in no apparent distress Head exam: Present: atraumatic, normocephalic, normal inspection Eye exam: Present: normal appearance, PERRL, EOMI. Absent: scleral icterus, conjunctival injection, periorbital swelling Neck exam: Present: normal inspection, full ROM. Absent: tenderness, meningismus, lymphadenopathy Respiratory exam: Present: normal lung sounds bilaterally. Absent: respiratory distress, wheezes, rales, rhonchi, stridor Cardiovascular Exam: Present: regular rate, normal rhythm, normal heart sounds. Absent: systolic murmur, diastolic murmur, rubs, gallop, clicks Extremities exam: Present: other (Chronic deformity right leg, enlargement with erythema, follow-up odor and purulent drainage) Course Vital Signs 03/25/23 14:12 Temperature 98.6 F Pulse Rate 115 H Respiratory 18 Rate Blood Pressure 102/56 O2 Sat by Pulse 95 Oximetry Procedures - [place] Protocol (Time Out) Nurse: Ariana Augustine Medical Decision Making - Medical Decision Making Was pt. sent in by a medical professional or institution (, PA, [employer], urgent care, hospital, or senior living...) When possible be specific @ -No Did you speak to anyone other than the patient for history (EMS, parent, family, police, friend...)? What history was obtained from this source @ -No Did you review nursing and triage notes (agree or disagree)? Why? @ -I reviewed and agree with nursing and triage notes Were old charts reviewed (outside hosp., previous admission, EMS record, old EKG, old radiological studies, urgent care reports/EKG's, senior living records)? Report findings @ -Reviewed prior laboratory studies Differential Diagnosis (chest pain, altered mental status, abdominal pain women, abdominal pain men, vaginal bleeding, weakness, fever, dyspnea, syncope, headache, dizziness, GI bleed, back pain, seizure, CVA, palpatations, mental health, musculoskeletal)? @ -Cellulitis, diabetic ulceration EKG interpreted by me (3pts min.). @ -None X-rays interpreted by me (1pt min.). @ -None done CT interpreted by me (1pt min.). @ -None done U/S interpreted by me (1pt. min.). @ -None done What testing was considered but not performed or refused? (CT, X-rays, U/S, labs)? Why? @ -None What meds were considered but not given or refused? Why? @ -None Did you discuss the management of the patient with other professionals (professionals i.e. , PA, [employer], lab, RT, psych nurse, geriatric social work professor, route aide, teacher, marketing and communications officer, disease case manager)? Give summary @ -[Dr. Lieberman for admission right leg cellulitis Was smoking cessation discussed for >3mins.? @ -No Was critical care preformed (if so, how long)? @ -No Were there social determinants of health that impacted care today? How? (Homelessness, low income, unemployed, alcoholism, drug addiction, transp ortation, low edu. Level, literacy, decrease access to med. care, fci, rehab)? @ -No Was there de-escalation of care discussed even if they declined (Discuss DNR or withdrawal of care, Hospice)? DNR status @ -No What co-morbidities impacted this encounter? (DM, HTN, Smoking, COPD, CAD, Cancer, CVA, ARF, Chemo, Hep., AIDS, mental health diagnosis, sleep apnea, morbid obesity)? @ -Diabetes Was patient admitted / discharged? Hospital course, mention meds given and route, prescriptions, significant lab abnormalities, going to OR and other pertinent info. @ -Admitted for right leg cellulitis case discussed Dr. Lieberman will have ID consultation. Undiagnosed new problem with uncertain prognosis? @ -No Drug Therapy requiring intensive monitoring for toxicity (Heparin, Nitro, Insulin, Cardizem)? @ -No Were any procedures done? @ -No Diagnosis/symptom? @ -Right leg cellulitis, hypoglycemia Acute, or Chronic, or Acute on Chronic? @ -Acute Uncomplicated (without systemic symptoms) or Complicated (systemic symptoms)? @ -complicated Side effects of treatment? @ -No Exacerbation, Progression, or Severe Exacerbation? @ -No Poses a threat to life or bodily function? How? (Chest pain, USA, PR, pneumonia, PE, COPD, DKA, ARF, appy, cholecystitis, CVA, Diverticulitis, Homicidal, Suicidal, threat to staff... and all critical care pts) @ -No - Lab Data Result diagrams: 03/25/23 14:41 03/25/23 14:41 Lab Results 03/25/23 03/25/23 03/25/23 Range/Units 14:41 14:41 14:41 WBC 11.1 H (3.8-10.6) k/uL RBC 4.36 (4.30-5.90) m/uL Hgb 12.2 L (13.0-17.5) gm/dL Hct 37.4 L (39.0-53.0) % MCV 85.9 (80.0-100.0) fL MCH 28.0 (25.0-35.0) pg MCHC 32.5 (31.0-37.0) g/dL RDW 15.9 H (11.5-15.5) % Plt Count 207 (150-450) k/uL MPV 8.5 Neutrophils % 92 % Lymphocytes % 3 % Monocytes % 3 % Eosinophils % 1 % Basophils % 0 % Neutrophils # 10.2 H (1.3-7.7) k/uL Lymphocytes # 0.4 L (1.0-4.8) k/uL Monocytes # 0.3 (0-1.0) k/uL Eosinophils # 0.1 (0-0.7) k/uL Basophils # 0.0 (0-0.2) k/uL Manual Slide Review Performed Sodium 131 L (137-145) mmol/L Potassium 4.8 (3.5-5.1) mmol/L Chloride 99 (98-107) mmol/L Carbon Dioxide 21 L (22-30) mmol/L Anion Gap 11 mmol/L BUN 40 H (9-20) mg/dL Creatinine 1.93 H (0.66-1.25) mg/dL Est GFR (CKD-EPI)AfAm 38 (>60 ml/min/1.73 sqM) Est GFR (CKD-EPI)NonAf 33 (>60 ml/min/1.73 sqM) Glucose 31 L* (74-99) mg/dL POC Glucose (mg/dL) (70-110) mg/dL POC Glu Paper Reeler ID Plasma Lactic Acid Christopher 2.8 H* (0.7-2.0) mmol/L Calcium 8.2 L (8.4-10.2) mg/dL Total Bilirubin 1.0 (0.2-1.3) mg/dL AST 27 (17-59) U/L ALT 18 (4-49) U/L Alkaline Phosphatase 116 (38-126) U/L Total Protein 6.6 (6.3-8.2) g/dL Albumin 3.0 L (3.5-5.0) g/dL 03/25/23 Range/Units 15:32 WBC (3.8-10.6) k/uL RBC (4.30-5.90) m/uL Hgb (13.0-17.5) gm/dL Hct (39.0-53.0) % MCV (80.0-100.0) fL MCH (25.0-35.0) pg MCHC (31.0-37.0) g/dL RDW (11.5-15.5) % Plt Count (150-450) k/uL MPV Neutrophils % % Lymphocytes % % Monocytes % % Eosinophils % % Basophils % % Neutrophils # (1.3-7.7) k/uL Lymphocytes # (1.0-4.8) k/uL Monocytes # (0-1.0) k/uL Eosinophils # (0-0.7) k/uL Basophils # (0-0.2) k/uL Manual Slide Review Sodium (137-145) mmol/L Potassium (3.5-5.1) mmol/L Chloride (98-107) mmol/L Carbon Dioxide (22-30) mmol/L Anion Gap mmol/L BUN (9-20) mg/dL Creatinine (0.66-1.25) mg/dL Est GFR (CKD-EPI)AfAm (>60 ml/min/1.73 sqM) Est GFR (CKD-EPI)NonAf (>60 ml/min/1.73 sqM) Glucose (74-99) mg/dL POC Glucose (mg/dL) 34 L (70-110) mg/dL POC Glu Paper Reeler ID Raul Rocha Plasma Lactic Acid Christopher (0.7-2.0) mmol/L Calcium (8.4-10.2) mg/dL Total Bilirubin (0.2-1.3) mg/dL AST (17-59) U/L ALT (4-49) U/L Alkaline Phosphatase (38-126) U/L Total Protein (6.3-8.2) g/dL Albumin (3.5-5.0) g/dL Disposition Clinical Impression: Cellulitis of right leg, Hypoglycemia, YSABEL (acute kidney injury) Disposition: ADMITTED IP TO THIS HOSP Condition: Fair Referrals: Tatyana Mora MD [Primary Care Provider] - 1-2 days Time of Disposition: 16:10
[2023-03-25 16:18] LABS: Glucose,Whole Blood 86 mg/dL (70-110)
[2023-03-25] MEDS: PIPERACILLIN-TAZOBACTAM 3.375 GM in SODIUM CHLORIDE 0.9% 100 ML IVPB SCH (16:26)
[2023-03-25] MEDS: HYDROcodone/APAP 5-325MG 1 EACH TAB PO PRN ×2 (16:27→23:37)
[2023-03-25 18:54] LABS: Glucose,Whole Blood 44 mg/dL (70-110)
[2023-03-25 19:13] LABS: Glucose,Whole Blood 56 mg/dL (70-110)
[2023-03-25] MEDS ORDERED: DEXTROSE 5%-0.9% NACL 1,000 ML IV SCH (19:30)
[2023-03-25 19:31] LABS: Glucose,Whole Blood 62 mg/dL (70-110)
[2023-03-25 19:49] LABS: Glucose,Whole Blood 67 mg/dL (70-110)
--- NOTE | 2023-03-25 21:45 | HP ---
HISTORY AND PHYSICAL CHIEF COMPLAINT: Bilateral leg cellulitis. HISTORY OF PRESENT ILLNESS: This is a 77-year-old gentleman with a past medical history of recurrent cellulitis as well as DVT, is complaining of bilateral leg cellulitis for the last several days, mainly on the left more than the right and the patient has some foul-smelling also. The patient is followed by Dr. Tatyana Mora in the outpatient setting. PAST MEDICAL HISTORY: Reviewed include asthma, diabetes, and DVT. Rest of the history and rest of the chart is also reviewed. HOME MEDICATIONS: Reviewed include Zanaflex, dose and rest of medications reviewed. ALLERGIES: Reviewed include iodine. Rest of the allergies are noted. FAMILY HISTORY: No history of heart disease or strokes in the family. SOCIAL HISTORY: Previous history of smoking. REVIEW OF SYSTEMS: Fourteen-point review is negative except as mentioned earlier. PHYSICAL EXAMINATION: VITAL SIGNS: Pulse is 115, blood pressure 102/53, respirations 18. HEENT: Conjunctivae normal. NECK: No JVD. CARDIOVASCULAR: S1, S2. RESPIRATIONS: Breath sounds diminished at the bases. A few scattered rhonchi. ABDOMEN: Soft, nontender. LEGS: Bilateral leg cellulitis, oozing, erythema, redness, and foul smelling present. NERVOUS SYSTEM: No focal deficit. SKIN: No ulcer, rash, or bleeding. JOINTS: No active deforming arthropathy. LABORATORY DATA: Reviewed. ASSESSMENT: 1. Acute bilateral leg cellulitis with failure of outpatient treatment. 2. Diabetes mellitus, type 2. 3. History of deep venous thrombosis. 4. Hypertension. 5. Hyperlipidemia. 6. History of pulmonary embolism. 7. Multiple medical issues. RECOMMENDATIONS: This is a 77-year-old gentleman presented with multiple complex medical issues, we will monitor the patient closely. I would recommend cultures, empiric antibiotics. Infectious Disease evaluation, Vascular evaluation. Previous cultures showed MSSA and polymicrobial noe. See orders for further details. Further recommendations to follow. MMODL / IJN: [id number] /
[2023-03-25 22:09] LABS: Glucose,Whole Blood 42 mg/dL (70-110)
[2023-03-25 22:09] LABS: Glucose,Whole Blood 39 mg/dL (70-110)
[2023-03-25 22:18] LABS: Glucose,Whole Blood 37 mg/dL (70-110)
[2023-03-25 22:18] LABS: Glucose,Whole Blood 36 mg/dL (70-110)
[2023-03-25 22:30] LABS: Glucose,Whole Blood 54 mg/dL (70-110)
[2023-03-25] MEDS: DEXTROSE 50% SYRINGE 50 ML IVP PRN ×2 (22:38→23:56)
[2023-03-25 22:47] LABS: Glucose,Whole Blood 55 mg/dL (70-110)
[2023-03-25 23:04] LABS: Glucose,Whole Blood 58 mg/dL (70-110)
[2023-03-25] MEDS ORDERED: DEXTROSE 10% IN WATER 500 ML in EMPTY BAG 1 BAG IV SCH (23:30)
[2023-03-25 23:32] LABS: Glucose,Whole Blood 42 mg/dL (70-110)
[2023-03-25] MEDS: INSULIN ASPART (NovoLOG) 100 UNIT/ML VIAL SQ SCH (23:40)
[2023-03-25 23:51] LABS: Glucose,Whole Blood 43 mg/dL (70-110)
[2023-03-26 00:17] LABS: Glucose,Whole Blood 85 mg/dL (70-110)
[2023-03-26 00:39] LABS: Glucose,Whole Blood 69 mg/dL (70-110)
[2023-03-26] MEDS: PIPERACILLIN-TAZOBACTAM 3.375 GM in SODIUM CHLORIDE 0.9% 100 ML IVPB SCH ×3 (00:42→16:33)
[2023-03-26 01:09] LABS: Glucose,Whole Blood 75 mg/dL (70-110)
[2023-03-26 01:49] LABS: Glucose,Whole Blood 41 mg/dL (70-110)
[2023-03-26] MEDS: DEXTROSE 50% SYRINGE 50 ML IVP PRN ×10 (02:00→11:18)
[2023-03-26 02:14] LABS: Glucose,Whole Blood 90 mg/dL (70-110)
[2023-03-26 02:54] LABS: Glucose,Whole Blood 53 mg/dL (70-110)
[2023-03-26 03:25] LABS: Glucose,Whole Blood 102 mg/dL (70-110)
[2023-03-26 03:57] LABS: Glucose,Whole Blood 53 mg/dL (70-110)
[2023-03-26] MEDS ORDERED: SODIUM CHLORIDE 0.9% 500 ML 500 ML IV ONE (04:09)
[2023-03-26 04:32] LABS: Glucose,Whole Blood 73 mg/dL (70-110)
[2023-03-26 04:45] LABS: Glucose,Whole Blood 56 mg/dL (70-110)
[2023-03-26 05:08] LABS: Glucose,Whole Blood 40 mg/dL (70-110)
[2023-03-26] MEDS: INSULIN ASPART (NovoLOG) 100 UNIT/ML VIAL SQ SCH ×5 (05:16→23:57)
[2023-03-26 05:32] LABS: Glucose,Whole Blood 100 mg/dL (70-110)
[2023-03-26 05:38] LABS: Basophils # (A) 0.1 k/uL (0-0.2); Basophils % (A) 1 %; Eosinophils # (A) 0.1 k/uL (0-0.7); Eosinophils % (A) 1 %; HCT 34.6 % (39.0-53.0); HGB 11.6 gm/dL (13.0-17.5); Lymphocytes # (A) 0.4 k/uL (1.0-4.8); Lymphocytes % (A) 4 %; MCH 28.7 pg (25.0-35.0); MCHC 33.5 g/dL (31.0-37.0); MCV 85.7 fL (80.0-100.0); Mean Platelet Volume 8.3; Monocytes # (A) 0.2 k/uL (0-1.0); Monocytes % (A) 3 %; Neutrophils # (A) 8.3 k/uL (1.3-7.7); Neutrophils % (A) 91 %; Platelet Count 159 k/uL (150-450); RBC 4.04 m/uL (4.30-5.90); RDW 15.9 % (11.5-15.5); WBC 9.2 k/uL (3.8-10.6)
[2023-03-26 05:47] LABS: African American GFR (CKD) 50 (>60 ml/min/1.73 sqM); Anion Gap 7 mmol/L; Blood Urea Nitrogen 41 mg/dL (9-20); Calcium 7.5 mg/dL (8.4-10.2); Carbon Dioxide 22 mmol/L (22-30); Chloride 99 mmol/L (98-107); Magnesium 1.4 mg/dL (1.6-2.3); Non-African American GFR(CKD) 44 (>60 ml/min/1.73 sqM); Potassium 4.5 mmol/L (3.5-5.1); Sodium 128 mmol/L (137-145)
[2023-03-26 06:00] LABS: Glucose 35 mg/dL (74-99)
[2023-03-26 06:11] LABS: Glucose,Whole Blood 64 mg/dL (70-110)
[2023-03-26 06:28] LABS: Glucose,Whole Blood 73 mg/dL (70-110)
[2023-03-26] MEDS: DEXTROSE 10% IN WATER 500 ML in EMPTY BAG 1 BAG IV SCH ×2 (06:43→15:02)
[2023-03-26 07:06] LABS: Glucose,Whole Blood 45 mg/dL (70-110)
[2023-03-26] MEDS: LEVOTHYROXINE 100 MCG TAB PO SCH (07:08)
[2023-03-26 07:24] LABS: Glucose,Whole Blood 82 mg/dL (70-110)
--- NOTE | 2023-03-26 07:58 | P.CNPUL ---
History of Present Illness Consult date: 03/26/23 Requesting physician: Libia Sy Reason for consult: other (ICU management) Chief complaint: Right lower extremity swelling and redness History of present illness: I am seeing this patient in new consultation today 03/26/2023 for persistent and refractory hypoglycemia. Patient is a 77-year-old male with past medical history significant for diabetes mellitus type 2, hypothyroidism, factor V Leyden mutation, right lower extremity DVT, pulmonary embolism, recurrent lower extremity cellulitis, hypertension, hyperlipidemia, severe persistent asthma, GERD. His primary care provider is Dr. Tatyana Mora. Patient came to the emergency room yesterday afternoon complaining of increased redness and swelling of bilateral legs, but his right lower extremity is worse. He says that he has noticed increased redness and drainage over the last 2 weeks. This has been accompanied with fevers and generalized malaise. The patient was admitted to the hospital on IV antibiotics in the form of Zosyn. While on the general medical floor, the patient was found to be profoundly hypoglycemic. This was refractory to multiple administrations of D50W. In fact, it looks like he's had over 8 amps of D50W over the last 12 hours. He has been started on a D10W infusion at 100 ML's per hour. Patient is currently sitting up in bed, on room air, in no acute distress. He is asymptomatic even when hypoglycemic. He has not received any long-acting insulin, metformin, or sulfonylureas while in the hospital. He normally takes metformin and Glipizide at home, but has not had a dose this admission. He has NovoLog sliding scale insulin ordered, but has not received any because of his hypoglycemia. Denies any liver disease, active cancer, alcoholism. Most recent CBC is unremarkable. BMP shows sodium 128, potassium 4.5, chloride 99, serum bicarb 22, BUN 41, creatinine 1.54, glucose 35. LFTs on arrival were nonelevated. Patient is hemodynamically stable, but warrants close monitoring and intensive care unit. Review of Systems REVIEW OF SYSTEMS: CONSTITUTIONAL: Denies any recent significant weight loss or weight gain. EYES: Denies change in vision. EARS, NOSE, MOUTH, THROAT: Denies headaches, denies sore throat. CARDIOVASCULAR: Denies chest pain, palpitations or syncopal episodes. RESPIRATORY: Denies shortness of breath, cough, congestion or hemoptysis. GASTROINTESTINAL: Denies change in appetite, abdominal pain, nausea and vomiting, or diarrhea GENITOURINARY: Denies hematuria, denies infections. MUSKULOSKELETAL: Right lower extremity is chronically grossly enlarged INTEGUMENTARY: Admits bilateral lower extremity swelling greater so on the right with erythema and drainage NEUROLOGICAL: Denies recent memory loss, no recent seizure activity. PSYCHIATRIC: Denies anxiety, denies depression. HEMATOLOGIC/LYMPHATIC: Denies anemia, denies enlarged lymph node Past Medical History Past Medical History: Asthma, Blood Disorder, Cancer, Diabetes Mellitus, Deep Vein Thrombosis (DVT), GERD/Reflux, GI Bleed, Hyperlipidemia, Hypertension, Osteoarthritis (OA), Pneumonia, Pulmonary Embolus (PE), Thyroid Disorder Additional Past Medical History / Comment(s): occular migraines, SOB with activity, hx cellulitis x 5, clotting disorder-Factor V- Leiden, basal cell skin ca(folicular), heart murmur, kidney stones, edema rt leg, History of Any Multi-Drug Resistant Organisms: None Reported, MRSA Date of last positivie culture/infection: 2012 MDRO Source:: bilateral legs Past Surgical History: Cholecystectomy, Hernia Repair, Tonsillectomy Additional Past Surgical History / Comment(s): 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 Smoking Status: Former smoker Past Alcohol Use History: Occasional Additional Past Alcohol Use History / Comment(s): Started smoking at age 17(1962) and quit age 30(1974). Past Drug Use History: None Reported - Past Family History Mother Family Medical History: No Reported History Additional Family Medical History / Comment(s): . Father Family Medical History: No Reported History Additional Family Medical History / Comment(s): age 72. Medications and Allergies Home Medications Medication Instructions Recorded Confirmed Type Atorvastatin [Lipitor] 10 mg PO DAILY 10/04/17 03/25/23 History Levothyroxine Sodium [Synthroid] 200 mcg PO DAILY 10/20/19 03/25/23 History Montelukast Sodium [Singulair] 10 mg PO HS 10/20/19 03/25/23 History tiZANidine HCL [Zanaflex] 4 mg PO TID PRN 03/31/20 03/25/23 History Rivaroxaban [Xarelto] 20 mg PO DAILY 05/03/21 03/25/23 History Pioglitazone [Actos] 15 mg PO DAILY 05/12/22 03/25/23 History dilTIAZem HCL [dilTIAZem [id number] 240 mg PO DAILY 05/12/22 03/25/23 History ER (CD)] Albuterol Sulfate [Ventolin HFA] 2 puff INHALATION RT-Q4H #0 07/07/22 03/25/23 Rx Furosemide [Lasix] 40 mg PO DAILY 30 Days #30 tablet 07/07/22 03/25/23 Rx HYDROcodone/APAP 5-325MG [[place] 1 tab PO BID PRN 03/25/23 03/25/23 History 5-325] Omeprazole [PriLOSEC] 20 mg PO DAILY 03/25/23 03/25/23 History Testosterone Cypionate 200 mg IM Q14D 03/25/23 03/25/23 History [Depo-Testosterone] glipiZIDE XL [Glucotrol Xl] 20 mg PO DAILY 03/25/23 03/25/23 History metFORMIN HCL [Glucophage] 500 mg PO BID 03/25/23 03/25/23 History Fluticasone/Vilanterol [Breo 1 puff INHALATION RT-DAILY 03/26/23 03/26/23 History Ellipta 100-25 Mcg Inhaler] Allergies Allergy/AdvReac Type Severity Reaction Status Date / Time Iodinated Contrast Media Allergy Anaphylaxis Verified 03/25/23 19:33 iodine Allergy Anaphylaxis Verified 03/25/23 19:33 latex Allergy recent Verified 03/25/23 19:33 testing revealed allergen, no reported reactions yet shellfish derived Allergy Anaphylaxis Verified 03/25/23 19:33 shrimp Allergy Anaphylaxis Verified 03/25/23 19:33 tuna oil Allergy Unknown Verified 03/25/23 19:33 codeine AdvReac Rapid Verified 03/25/23 19:33 Heart Rate lisinopril AdvReac Cough Verified 03/25/23 19:33 Physical Exam Vitals: Vital Signs Temp Pulse Pulse Resp BP BP Pulse Ox 03/26/23 07:00 74 24 116/48 94 L 03/26/23 06:30 81 28 H 95/63 94 L 03/26/23 06:00 83 27 H 82/41 94 L 03/26/23 05:30 86 23 100/51 94 L 03/26/23 05:00 84 25 H 125/36 98 03/26/23 04:30 87 30 H 124/71 96 03/26/23 04:23 93 31 H 115/71 03/26/23 02:00 99.0 F 78 18 95 03/25/23 20:23 98.7 F 90 18 93/53 97 03/25/23 19:10 98.7 F 87 18 101/63 94 L 03/25/23 14:12 98.6 F 115 H 18 102/56 95 Intake and Output 03/25/23 03/26/23 03/26/23 22:59 06:59 14:59 Intake Total 400 Output Total 540 Balance -140 Intake: IV 400 Dextrose 10% in Water 500 300 ml In Empty Bag 1 bag @ 100 mls/hr IV .Q5H [facility] Rx #:[id number] Piperacillin-Tazobactam 3 100 .375 gm In Sodium Chloride 0.9% 100 ml @ 25 mls/hr IVPB Q8HR [facility] Rx# :[id number] Output: Urine 540 Other: # Voids 1 Weight 97.069 kg GENERAL EXAM: Alert, 77-year-old white male , comfortable in no apparent distress. HEAD: Normocephalic and atraumatic EYES: Normal reaction of pupils, equal size. NOSE: Clear with pink turbinates. THROAT: No erythema or exudates. NECK: No masses, no JVD. CHEST: No chest wall deformity. LUNGS: Equal air entry with bibasilar inspiratory crackles. No wheezes, rhonchi, focal dullness. On room air. No conversational dyspnea or accessory muscle use.. CVS: S1 and S2 normal with no audible murmur, regular rhythm. No extra heart sounds ABDOMEN: Obese abdomen, No hepatosplenomegaly, active bowel sounds, no guarding or rigidity. SPINE: No scoliosis or deformity SKIN: Bilateral lower extremity erythema with purulent drainage. CENTRAL NERVOUS SYSTEM: No focal deficits, tone is normal in all 4 extremities. EXTREMITIES: Right lower extremity is grossly enlarged and erythemic. Left lower extremity is also edematous, with purulent drainage, and wrapped in Kerlix. Peripheral pulses are intact. Results - Laboratory Findings CBC and BMP: 03/26/23 04:26 03/26/23 04:26 Abnormal lab findings: Abnormal Labs 03/25/23 03/25/23 03/25/23 14:41 14:41 14:41 WBC 11.1 H RBC Hgb 12.2 L Hct 37.4 L RDW 15.9 H Neutrophils # 10.2 H Lymphocytes # 0.4 L Sodium 131 L Carbon Dioxide 21 L BUN 40 H Creatinine 1.93 H Glucose 31 L* POC Glucose (mg/dL) Plasma Lactic Acid Christopher 2.8 H* Calcium 8.2 L Magnesium Albumin 3.0 L 03/25/23 03/25/23 03/25/23 15:32 17:42 18:53 WBC RBC Hgb Hct RDW Neutrophils # Lymphocytes # Sodium Carbon Dioxide BUN Creatinine Glucose POC Glucose (mg/dL) 34 L 44 L Plasma Lactic Acid Christopher 2.1 H* Calcium Magnesium Albumin 03/25/23 03/25/23 03/25/23 19:12 19:29 19:48 WBC RBC Hgb Hct RDW Neutrophils # Lymphocytes # Sodium Carbon Dioxide BUN Creatinine Glucose POC Glucose (mg/dL) 56 L 62 L 67 L Plasma Lactic Acid Christopher Calcium Magnesium Albumin 03/25/23 03/25/23 03/25/23 20:17 21:58 21:59 WBC RBC Hgb Hct RDW Neutrophils # Lymphocytes # Sodium Carbon Dioxide BUN Creatinine Glucose POC Glucose (mg/dL) 39 L 42 L Plasma Lactic Acid Christopher 2.4 H* Calcium Magnesium Albumin 03/25/23 03/25/23 03/25/23 22:15 22:17 22:30 WBC RBC Hgb Hct RDW Neutrophils # Lymphocytes # Sodium Carbon Dioxide BUN Creatinine Glucose POC Glucose (mg/dL) 36 L 37 L 54 L Plasma Lactic Acid Christopher Calcium Magnesium Albumin 03/25/23 03/25/23 03/25/23 22:45 23:03 23:30 WBC RBC Hgb Hct RDW Neutrophils # Lymphocytes # Sodium Carbon Dioxide BUN Creatinine Glucose POC Glucose (mg/dL) 55 L 58 L 42 L Plasma Lactic Acid Christopher Calcium Magnesium Albumin 03/25/23 03/26/23 03/26/23 23:49 00:38 01:48 WBC RBC Hgb Hct RDW Neutrophils # Lymphocytes # Sodium Carbon Dioxide BUN Creatinine Glucose POC Glucose (mg/dL) 43 L 69 L 41 L Plasma Lactic Acid Christopher Calcium Magnesium Albumin 03/26/23 03/26/23 03/26/23 02:52 03:56 04:26 WBC RBC 4.04 L Hgb 11.6 L Hct 34.6 L RDW 15.9 H Neutrophils # 8.3 H Lymphocytes # 0.4 L Sodium Carbon Dioxide BUN Creatinine Glucose POC Glucose (mg/dL) 53 L 53 L Plasma Lactic Acid Christopher Calcium Magnesium Albumin 03/26/23 03/26/23 03/26/23 04:26 04:43 05:06 WBC RBC Hgb Hct RDW Neutrophils # Lymphocytes # Sodium 128 L Carbon Dioxide BUN 41 H Creatinine 1.54 H Glucose 35 L* POC Glucose (mg/dL) 56 L 40 L Plasma Lactic Acid Christopher Calcium 7.5 L Magnesium 1.4 L Albumin 03/26/23 03/26/23 05:59 07:01 WBC RBC Hgb Hct RDW Neutrophils # Lymphocytes # Sodium Carbon Dioxide BUN Creatinine Glucose POC Glucose (mg/dL) 64 L 45 L Plasma Lactic Acid Chirstopher Calcium Magnesium Albumin Assessment and Plan Assessment: Hypoglycemia refractory to glucose replacement, patient has received a total of 8 ampules of D50W so far, and D10W at 100 ml/hr was started. Patient does take metformin and a sulfonylurea on outpatient basis. No other etiology identified. Bilateral lower extremity cellulitis Right lower extremity lymphedema History of right lower extremity DVT and pulmonary embolism anticoagulated on Xarelto History of factor V Leyden mutation Acute kidney injury, improving Mild hyponatremia Diabetes mellitus type 2, [id number], normally managed with metformin on an outpatient basis Essential hypertension Hyperlipidemia Severe persistent asthma, stable Plan: Patient will be transferred to intensive care unit for closer glucose control Continue D10W at 100 ML's per hour, supplement with when necessary D50W amps IVP. May need insertion of central line and D50W infusion Hold anti-hyperglycemics Check TSH and cortisol levels LFTs are non-elevated Continue home Symbicort inhaler with when necessary Ventolin inhaler Antibiotics per infectious disease We will continue to follow, and make recommendations while in the ICU I have personally seen and examined the patient, performed the documentation and the assessment and plan as written. Number of minutes spent on the visit:20 Joint evaluation that was done along with the nurse practitioner. Continue D10W at 100 ML's per hour Monitor the blood sugar No need for pressors Continue IV Zosyn Obtain Doppler of the right lower extremity Hold anti-hyperglycemics Check TSH and cortisol levels, levels are adequate at this point in time LFTs are non-elevated Continue home Symbicort inhaler with when necessary Ventolin inhaler Antibiotics per infectious disease We will continue to follow, and make recommendations while in the ICU Evaluation was done in more than 30 minutes. Time with Patient: Greater than 30
[2023-03-26 08:03] LABS: Glucose,Whole Blood 39 mg/dL (70-110)
[2023-03-26 08:18] LABS: Glucose,Whole Blood 81 mg/dL (70-110)
[2023-03-26 08:34] LABS: Glucose,Whole Blood 74 mg/dL (70-110)
[2023-03-26 08:54] LABS: Glucose,Whole Blood 49 mg/dL (70-110)
[2023-03-26] MEDS: SYMBICORT 80-4.5 MCG INHALER INHALATION SCH ×2 (08:57→20:29)
[2023-03-26] MEDS: ALBUTEROL NEBULIZED 2.5 MG/3 ML INHALATION SCH ×4 (08:59→20:28)
[2023-03-26 09:24] LABS: Glucose,Whole Blood 70 mg/dL (70-110)
[2023-03-26 09:44] LABS: Glucose,Whole Blood 48 mg/dL (70-110)
[2023-03-26 10:03] LABS: Glucose,Whole Blood 88 mg/dL (70-110)
[2023-03-26 10:15] LABS: T4, Free (Free Thyroxine) 1.38 ng/dL (0.78-2.19)
[2023-03-26] MEDS ORDERED: LIDOCAINE 1% INJ 10MG/ML (5 ML VIAL-PF) SQ ONE (10:35)
[2023-03-26] MEDS: RIVAROXABAN 20 MG TAB PO SCH (10:38)
[2023-03-26] MEDS: ATORVASTATIN 10 MG TAB PO SCH (10:38)
[2023-03-26 10:54] LABS: Glucose,Whole Blood 73 mg/dL (70-110)
--- NOTE | 2023-03-26 10:55 | XR ---
EXAMINATION TYPE: XR chest 1V DATE OF EXAM: 03/26/2023 COMPARISON: 07/07/2022 HISTORY: PICC line TECHNIQUE: Single frontal view of the chest is obtained. FINDINGS: Right-sided consolidation pleural effusion noted. There is extreme patient rotation PICC l ine overlying the SVC. No sinus tracts. AC joint arthropathy and underlying COPD. Left lower lobe con solidation. Left costophrenic angle. IMPRESSION: 1. PICC line appears in good position in use. 2. Bilateral consolidation /pleural effusion. Stable.
--- NOTE | 2023-03-26 11:14 | P.PN ---
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 Patient is admitted with worsening right leg swelling for the last 2 weeks as he explains to me with mild pain or discomfort in the area.. Also patient presents because of hypoglycemia. Patient was taken several of diabetes medications including metformin, Actos and glipizide 20 mg daily which patient was taken every day however he says that he had low appetite over the last 10 days and he was not eating well. Patient currently complaining of from 3-4/10 pain in his right leg. Patient can walk at home using a cane as he explains to me. Patient is fully awake and oriented and denies any other complaints. No chest pain or dyspnea. No new GI or urinary complaints. No headache dizziness weakness or numbness Patient says that he was taking testosterone at home to prevent him from falling down and other male characters Objective - Vital Signs Vital signs: Vital Signs Temp 99.0 F 03/26/23 02:00 Pulse 74 03/26/23 07:00 Resp 24 03/26/23 07:00 BP 116/48 03/26/23 07:00 Pulse Ox 94 L 03/26/23 07:00 FiO2 Intake & Output 03/25/23 03/26/23 03/26/23 18:59 06:59 18:59 Intake Total 400 200 Output Total 540 Balance -140 200 Weight 97.069 kg 97.069 kg Intake: IV 400 200 Dextrose 10% in Water 500 300 200 ml In Empty Bag 1 bag @ 100 mls/hr IV .Q5H [facility] Rx #:[id number] Piperacillin-Tazobactam 3 100 .375 gm In Sodium Chloride 0.9% 100 ml @ 25 mls/hr IVPB Q8HR [facility] Rx# :[id number] Output: Urine 540 Other: Voiding Method Urinal # Voids 1 - Exam GENERAL: The patient is alert and oriented x3, not in any acute distress. Well developed, well nourished. HEENT: Pupils are round and equally reacting to light. EOMI. No scleral icterus. No conjunctival pallor. Normocephalic, atraumatic. No pharyngeal erythema. No thyromegaly. CARDIOVASCULAR: S1 and S2 present. No murmurs, rubs, or gallops. PULMONARY: Chest is clear to auscultation, no wheezing , no crackles. ABDOMEN: Soft, nontender, nondistended, normoactive bowel sounds. No palpable organomegaly. MUSCULOSKELETAL: No joint swelling or deformity. -EXTREMITIES: No cyanosis, clubbing, or pedal edema. Right leg significantly swollen compared to the left leg NEUROLOGICAL: Gross neurological examination did not reveal any focal deficits. SKIN: No rashes. no petechiae. - Labs CBC & Chem 7: 03/26/23 04:26 03/26/23 04:26 Labs: Abnormal Lab Results - Last 24 Hours (Table) 03/25/23 03/25/23 03/25/23 Range/Units 14:41 14:41 14:41 WBC 11.1 H (3.8-10.6) k/uL RBC (4.30-5.90) m/uL Hgb 12.2 L (13.0-17.5) gm/dL Hct 37.4 L (39.0-53.0) % RDW 15.9 H (11.5-15.5) % Neutrophils # 10.2 H (1.3-7.7) k/uL Lymphocytes # 0.4 L (1.0-4.8) k/uL Sodium 131 L (137-145) mmol/L Carbon Dioxide 21 L (22-30) mmol/L BUN 40 H (9-20) mg/dL Creatinine 1.93 H (0.66-1.25) mg/dL Glucose 31 L* (74-99) mg/dL POC Glucose (mg/dL) (70-110) mg/dL Plasma Lactic Acid Christopher 2.8 H* (0.7-2.0) mmol/L Calcium 8.2 L (8.4-10.2) mg/dL Magnesium (1.6-2.3) mg/dL Albumin 3.0 L (3.5-5.0) g/dL TSH (0.465-4.680) mIU/L 03/25/23 03/25/23 03/25/23 Range/Units 15:32 17:42 18:53 WBC (3.8-10.6) k/uL RBC (4.30-5.90) m/uL Hgb (13.0-17.5) gm/dL Hct (39.0-53.0) % RDW (11.5-15.5) % Neutrophils # (1.3-7.7) k/uL Lymphocytes # (1.0-4.8) k/uL Sodium (137-145) mmol/L Carbon Dioxide (22-30) mmol/L BUN (9-20) mg/dL Creatinine (0.66-1.25) mg/dL Glucose (74-99) mg/dL POC Glucose (mg/dL) 34 L 44 L (70-110) mg/dL Plasma Lactic Acid Christopher 2.1 H* (0.7-2.0) mmol/L Calcium (8.4-10.2) mg/dL Magnesium (1.6-2.3) mg/dL Albumin (3.5-5.0) g/dL TSH (0.465-4.680) mIU/L 03/25/23 03/25/23 03/25/23 Range/Units 19:12 19:29 19:48 WBC (3.8-10.6) k/uL RBC (4.30-5.90) m/uL Hgb (13.0-17.5) gm/dL Hct (39.0-53.0) % RDW (11.5-15.5) % Neutrophils # (1.3-7.7) k/uL Lymphocytes # (1.0-4.8) k/uL Sodium (137-145) mmol/L Carbon Dioxide (22-30) mmol/L BUN (9-20) mg/dL Creatinine (0.66-1.25) mg/dL Glucose (74-99) mg/dL POC Glucose (mg/dL) 56 L 62 L 67 L (70-110) mg/dL Plasma Lactic Acid Christopher (0.7-2.0) mmol/L Calcium (8.4-10.2) mg/dL Magnesium (1.6-2.3) mg/dL Albumin (3.5-5.0) g/dL TSH (0.465-4.680) mIU/L 03/25/23 03/25/23 03/25/23 Range/Units 20:17 21:58 21:59 WBC (3.8-10.6) k/uL RBC (4.30-5.90) m/uL Hgb (13.0-17.5) gm/dL Hct (39.0-53.0) % RDW (11.5-15.5) % Neutrophils # (1.3-7.7) k/uL Lymphocytes # (1.0-4.8) k/uL Sodium (137-145) mmol/L Carbon Dioxide (22-30) mmol/L BUN (9-20) mg/dL Creatinine (0.66-1.25) mg/dL Glucose (74-99) mg/dL POC Glucose (mg/dL) 39 L 42 L (70-110) mg/dL Plasma Lactic Acid Christopher 2.4 H* (0.7-2.0) mmol/L Calcium (8.4-10.2) mg/dL Magnesium (1.6-2.3) mg/dL Albumin (3.5-5.0) g/dL TSH (0.465-4.680) mIU/L 03/25/23 03/25/23 03/25/23 Range/Units 22:15 22:17 22:30 WBC (3.8-10.6) k/uL RBC (4.30-5.90) m/uL Hgb (13.0-17.5) gm/dL Hct (39.0-53.0) % RDW (11.5-15.5) % Neutrophils # (1.3-7.7) k/uL Lymphocytes # (1.0-4.8) k/uL Sodium (137-145) mmol/L Carbon Dioxide (22-30) mmol/L BUN (9-20) mg/dL Creatinine (0.66-1.25) mg/dL Glucose (74-99) mg/dL POC Glucose (mg/dL) 36 L 37 L 54 L (70-110) mg/dL Plasma Lactic Acid Christopher (0.7-2.0) mmol/L Calcium (8.4-10.2) mg/dL Magnesium (1.6-2.3) mg/dL Albumin (3.5-5.0) g/dL TSH (0.465-4.680) mIU/L 03/25/23 03/25/23 03/25/23 Range/Units 22:45 23:03 23:30 WBC (3.8-10.6) k/uL RBC (4.30-5.90) m/uL Hgb (13.0-17.5) gm/dL Hct (39.0-53.0) % RDW (11.5-15.5) % Neutrophils # (1.3-7.7) k/uL Lymphocytes # (1.0-4.8) k/uL Sodium (137-145) mmol/L Carbon Dioxide (22-30) mmol/L BUN (9-20) mg/dL Creatinine (0.66-1.25) mg/dL Glucose (74-99) mg/dL POC Glucose (mg/dL) 55 L 58 L 42 L (70-110) mg/dL Plasma Lactic Acid Christopher (0.7-2.0) mmol/L Calcium (8.4-10.2) mg/dL Magnesium (1.6-2.3) mg/dL Albumin (3.5-5.0) g/dL TSH (0.465-4.680) mIU/L 03/25/23 03/26/23 03/26/23 Range/Units 23:49 00:38 01:48 WBC (3.8-10.6) k/uL RBC (4.30-5.90) m/uL Hgb (13.0-17.5) gm/dL Hct (39.0-53.0) % RDW (11.5-15.5) % Neutrophils # (1.3-7.7) k/uL Lymphocytes # (1.0-4.8) k/uL Sodium (137-145) mmol/L Carbon Dioxide (22-30) mmol/L BUN (9-20) mg/dL Creatinine (0.66-1.25) mg/dL Glucose (74-99) mg/dL POC Glucose (mg/dL) 43 L 69 L 41 L (70-110) mg/dL Plasma Lactic Acid Christopher (0.7-2.0) mmol/L Calcium (8.4-10.2) mg/dL Magnesium (1.6-2.3) mg/dL Albumin (3.5-5.0) g/dL TSH (0.465-4.680) mIU/L 0703/26/23 03/26/23 Range/Units 02:52 03:56 04:26 WBC (3.8-10.6) k/uL RBC 4.04 L (4.30-5.90) m/uL Hgb 11.6 L (13.0-17.5) gm/dL Hct 34.6 L (39.0-53.0) % RDW 15.9 H (11.5-15.5) % Neutrophils # 8.3 H (1.3-7.7) k/uL Lymphocytes # 0.4 L (1.0-4.8) k/uL Sodium (137-145) mmol/L Carbon Dioxide (22-30) mmol/L BUN (9-20) mg/dL Creatinine (0.66-1.25) mg/dL Glucose (74-99) mg/dL POC Glucose (mg/dL) 53 L 53 L (70-110) mg/dL Plasma Lactic Acid Christopher (0.7-2.0) mmol/L Calcium (8.4-10.2) mg/dL Magnesium (1.6-2.3) mg/dL Albumin (3.5-5.0) g/dL TSH (0.465-4.680) mIU/L 03/26/23 03/26/23 03/26/23 Range/Units 04:26 04:26 04:43 WBC (3.8-10.6) k/uL RBC (4.30-5.90) m/uL Hgb (13.0-17.5) gm/dL Hct (39.0-53.0) % RDW (11.5-15.5) % Neutrophils # (1.3-7.7) k/uL Lymphocytes # (1.0-4.8) k/uL Sodium 128 L (137-145) mmol/L Carbon Dioxide (22-30) mmol/L BUN 41 H (9-20) mg/dL Creatinine 1.54 H (0.66-1.25) mg/dL Glucose 35 L* (74-99) mg/dL POC Glucose (mg/dL) 56 L (70-110) mg/dL Plasma Lactic Acid Christopher (0.7-2.0) mmol/L Calcium 7.5 L (8.4-10.2) mg/dL Magnesium 1.4 L (1.6-2.3) mg/dL Albumin (3.5-5.0) g/dL TSH 4.970 H (0.465-4.680) mIU/L 03/26/23 03/26/23 03/26/23 Range/Units 05:06 05:59 07:01 WBC (3.8-10.6) k/uL RBC (4.30-5.90) m/uL Hgb (13.0-17.5) gm/dL Hct (39.0-53.0) % RDW (11.5-15.5) % Neutrophils # (1.3-7.7) k/uL Lymphocytes # (1.0-4.8) k/uL Sodium (137-145) mmol/L Carbon Dioxide (22-30) mmol/L BUN (9-20) mg/dL Creatinine (0.66-1.25) mg/dL Glucose (74-99) mg/dL POC Glucose (mg/dL) 40 L 64 L 45 L (70-110) mg/dL Plasma Lactic Acid Christopher (0.7-2.0) mmol/L Calcium (8.4-10.2) mg/dL Magnesium (1.6-2.3) mg/dL Albumin (3.5-5.0) g/dL TSH (0.465-4.680) mIU/L 03/26/23 03/26/23 03/26/23 Range/Units 08:02 08:52 09:43 WBC (3.8-10.6) k/uL RBC (4.30-5.90) m/uL Hgb (13.0-17.5) gm/dL Hct (39.0-53.0) % RDW (11.5-15.5) % Neutrophils # (1.3-7.7) k/uL Lymphocytes # (1.0-4.8) k/uL Sodium (137-145) mmol/L Carbon Dioxide (22-30) mmol/L BUN (9-20) mg/dL Creatinine (0.66-1.25) mg/dL Glucose (74-99) mg/dL POC Glucose (mg/dL) 39 L 49 L 48 L (70-110) mg/dL Plasma Lactic Acid Christopher (0.7-2.0) mmol/L Calcium (8.4-10.2) mg/dL Magnesium (1.6-2.3) mg/dL Albumin (3.5-5.0) g/dL TSH (0.465-4.680) mIU/L Microbiology - Last 24 Hours (Table) 03/25/23 17:41 Gram Stain - Preliminary Ankle - Left Assessment and Plan Assessment: Acute right leg cellulitis patient confirmed to me he was taken his blood thinner at home for his DVT in both legs about 4-5 years ago. With possible right lower extremity enlargement Diabetes mellitus, with hypoglycemia, present on admission decreased appetite secondary to above Hypertension Hyperlipidemia History of osteoarthritis Hypothyroidism History of DVT/PE on blood thinner at home Plan: Continue with the D10 infusion and monitor glucose. Patient encouraged to eat Continue with antibiotic, currently on Zosyn. Infectious disease consult Pulmonary/critical care team consult Extensive discussion and instructions provided for the patient regarding monitor his sugar and monitoring the input and the level as well. Patient verbalized understanding and acceptance Labs and medication were reviewed.. Continue same treatment. Continue with symptomatic treatment. Resume home medication. Monitor lytes and vitals. DVT and GI prophylaxis. Further recommendations depends on the clinical course of the patient DVT prophylaxis: Xarelto GI prophylaxis: Pepcid PT/OT: Pending Prognosis is guarded
[2023-03-26 11:17] LABS: Glucose,Whole Blood 67 mg/dL (70-110)
[2023-03-26 11:33] LABS: Glucose,Whole Blood 115 mg/dL (70-110)
--- NOTE | 2023-03-26 11:50 | P.PN ---
Subjective Progress Note Date: 03/26/23 I am seeing this patient in new consultation today 03/26/2023 for persistent and refractory hypoglycemia. Patient is a 77-year-old male with past medical history significant for diabetes mellitus type 2, hypothyroidism, factor V Leyden mutation, right lower extremity DVT, pulmonary embolism, recurrent lower extremity cellulitis, hypertension, hyperlipidemia, severe persistent asthma, GERD. His primary care provider is Dr. Tatyana Mora. Patient came to the emergency room yesterday afternoon complaining of increased redness and swelling of bilateral legs, but his right lower extremity is worse. He says that he has noticed increased redness and drainage over the last 2 weeks. This has been accompanied with fevers and generalized malaise. The patient was admitted to the hospital on IV antibiotics in the form of Zosyn. While on the general medical floor, the patient was found to be profoundly hypoglycemic. This was refractory to multiple administrations of D50W. In fact, it looks like he's had over 8 amps of D50W over the last 12 hours. He has been started on a D10W infusion at 100 ML's per hour. Patient is currently sitting up in bed, on room air, in no acute distress. He is asymptomatic even when hypoglycemic. He has not received any long-acting insulin, metformin, or sulfonylureas while in the hospital. He normally takes metformin and Glipizide at home, but has not had a dose this admission. He has NovoLog sliding scale insulin ordered, but has not received any because of his hypoglycemia. Denies any liver disease, active cancer, alcoholism. Most recent CBC is unremarkable. BMP shows sodium 128, potassium 4.5, chloride 99, serum bicarb 22, BUN 41, creatinine 1.54, glucose 35. LFTs on arrival were nonelevated. Patient is hemodynamically stable, but warrants close monitoring and intensive care unit. 03/26/2023, the patient is being seen for a follow-up. He is awake and is communicating. He has chronic lymphedema in the right lower extremity with wound and cellulitis. The wound has been debrided and the surface is quite ulcerated and erythematous with some serous material draining from the wound surface. There is also extensive edema in the right lower extremity along with erythema. He remains on anticoagulation with that also. He has been diabetic and the patient was taking oral hypoglycemic medication. The patient developed severe hypoglycemia and for that reason he was hospitalized and brought into the intensive care unit and currently is on D10 which is running at 100 mL an hour. Most recent blood sugar is at 115. He is hemodynamically stable. He is on IV Zosyn. He is afebrile. Most recent BP is 93/66 and the patient has not re quired any pressors. Producing adequate amount of urine output. His white cell cause of 9.2 with a hemoglobin 11.7 and a platelet count of 159. Sodium level is at 128 and the potassium levels at 4.5, BUN is at 45 with a creatinine of 1.5. Noted the patient was hospitalized with an acute kidney injury and the creatinine was as high as 1.9 and the renal function continues to improve. Serum cortisol level is at 22. Lactic acid level was as high as 2.8 and dropped down to 1.9. Cultures have been sent and the results are still pending for now. Objective - Vital Signs Vital signs: Vital Signs Temp 99.3 F 03/26/23 08:00 Pulse 94 03/26/23 10:30 Resp 18 03/26/23 10:30 BP 109/53 03/26/23 10:30 Pulse Ox 93 L 03/26/23 10:30 FiO2 Intake & Output 03/25/23 03/26/23 03/26/23 18:59 06:59 18:59 Intake Total 400 400 Output Total 540 Balance -140 400 Weight 97.069 kg 97.069 kg Intake: IV 400 400 Dextrose 10% in Water 500 300 400 ml In Empty Bag 1 bag @ 100 mls/hr IV .Q5H [facility] Rx #:[id number] Piperacillin-Tazobactam 3 100 .375 gm In Sodium Chloride 0.9% 100 ml @ 25 mls/hr IVPB Q8HR [facility] Rx# :[id number] Output: Urine 540 Other: Voiding Method Urinal # Voids 1 1 - Exam GENERAL EXAM: Alert, 77-year-old white male , comfortable in no apparent distress. HEAD: Normocephalic and atraumatic EYES: Normal reaction of pupils, equal size. NOSE: Clear with pink turbinates. THROAT: No erythema or exudates. NECK: No masses, no JVD. CHEST: No chest wall deformity. LUNGS: Equal air entry with bibasilar inspiratory crackles. No wheezes, rhonchi, focal dullness. On room air. No conversational dyspnea or accessory muscle use.. CVS: S1 and S2 normal with no audible murmur, regular rhythm. No extra heart sounds ABDOMEN: Obese abdomen, No hepatosplenomegaly, active bowel sounds, no guarding or rigidity. SPINE: No scoliosis or deformity SKIN: Bilateral lower extremity erythema with purulent drainage. CENTRAL NERVOUS SYSTEM: No focal deficits, tone is normal in all 4 extremities. EXTREMITIES: Right lower extremity is grossly enlarged and erythemic. Left lower extremity is also edematous, with purulent drainage, and wrapped in Kerlix. Peripheral pulses are intact. - Labs CBC & Chem 7: 03/26/23 04:26 03/26/23 04:26 Labs: Abnormal Lab Results - Last 24 Hours (Table) 03/25/23 03/25/23 03/25/23 Range/Units 14:41 14:41 14:41 WBC 11.1 H (3.8-10.6) k/uL RBC (4.30-5.90) m/uL Hgb 12.2 L (13.0-17.5) gm/dL Hct 37.4 L (39.0-53.0) % RDW 15.9 H (11.5-15.5) % Neutrophils # 10.2 H (1.3-7.7) k/uL Lymphocytes # 0.4 L (1.0-4.8) k/uL Sodium 131 L (137-145) mmol/L Carbon Dioxide 21 L (22-30) mmol/L BUN 40 H (9-20) mg/dL Creatinine 1.93 H (0.66-1.25) mg/dL Glucose 31 L* (74-99) mg/dL POC Glucose (mg/dL) (70-110) mg/dL Plasma Lactic Acid Christopher 2.8 H* (0.7-2.0) mmol/L Calcium 8.2 L (8.4-10.2) mg/dL Magnesium (1.6-2.3) mg/dL Albumin 3.0 L (3.5-5.0) g/dL TSH (0.465-4.680) mIU/L 03/25/23 03/25/23 03/25/23 Range/Units 15:32 17:42 18:53 WBC (3.8-10.6) k/uL RBC (4.30-5.90) m/uL Hgb (13.0-17.5) gm/dL Hct (39.0-53.0) % RDW (11.5-15.5) % Neutrophils # (1.3-7.7) k/uL Lymphocytes # (1.0-4.8) k/uL Sodium (137-145) mmol/L Carbon Dioxide (22-30) mmol/L BUN (9-20) mg/dL Creatinine (0.66-1.25) mg/dL Glucose (74-99) mg/dL POC Glucose (mg/dL) 34 L 44 L (70-110) mg/dL Plasma Lactic Acid Christopher 2.1 H* (0.7-2.0) mmol/L Calcium (8.4-10.2) mg/dL Magnesium (1.6-2.3) mg/dL Albumin (3.5-5.0) g/dL TSH (0.465-4.680) mIU/L 03/25/23 03/25/23 03/25/23 Range/Units 19:12 19:29 19:48 WBC (3.8-10.6) k/uL RBC (4.30-5.90) m/uL Hgb (13.0-17.5) gm/dL Hct (39.0-53.0) % RDW (11.5-15.5) % Neutrophils # (1.3-7.7) k/uL Lymphocytes # (1.0-4.8) k/uL Sodium (137-145) mmol/L Carbon Dioxide (22-30) mmol/L BUN (9-20) mg/dL Creatinine (0.66-1.25) mg/dL Glucose (74-99) mg/dL POC Glucose (mg/dL) 56 L 62 L 67 L (70-110) mg/dL Plasma Lactic Acid Christopher (0.7-2.0) mmol/L Calcium (8.4-10.2) mg/dL Magnesium (1.6-2.3) mg/dL Albumin (3.5-5.0) g/dL TSH (0.465-4.680) mIU/L 07/03/25/23 03/25/23 Range/Units 20:17 21:58 21:59 WBC (3.8-10.6) k/uL RBC (4.30-5.90) m/uL Hgb (13.0-17.5) gm/dL Hct (39.0-53.0) % RDW (11.5-15.5) % Neutrophils # (1.3-7.7) k/uL Lymphocytes # (1.0-4.8) k/uL Sodium (137-145) mmol/L Carbon Dioxide (22-30) mmol/L BUN (9-20) mg/dL Creatinine (0.66-1.25) mg/dL Glucose (74-99) mg/dL POC Glucose (mg/dL) 39 L 42 L (70-110) mg/dL Plasma Lactic Acid Christopher 2.4 H* (0.7-2.0) mmol/L Calcium (8.4-10.2) mg/dL Magnesium (1.6-2.3) mg/dL Albumin (3.5-5.0) g/dL TSH (0.465-4.680) mIU/L 03/25/23 03/25/23 03/25/23 Range/Units 22:15 22:17 22:30 WBC (3.8-10.6) k/uL RBC (4.30-5.90) m/uL Hgb (13.0-17.5) gm/dL Hct (39.0-53.0) % RDW (11.5-15.5) % Neutrophils # (1.3-7.7) k/uL Lymphocytes # (1.0-4.8) k/uL Sodium (137-145) mmol/L Carbon Dioxide (22-30) mmol/L BUN (9-20) mg/dL Creatinine (0.66-1.25) mg/dL Glucose (74-99) mg/dL POC Glucose (mg/dL) 36 L 37 L 54 L (70-110) mg/dL Plasma Lactic Acid Christopher (0.7-2.0) mmol/L Calcium (8.4-10.2) mg/dL Magnesium (1.6-2.3) mg/dL Albumin (3.5-5.0) g/dL TSH (0.465-4.680) mIU/L 03/25/23 03/25/23 03/25/23 Range/Units 22:45 23:03 23:30 WBC (3.8-10.6) k/uL RBC (4.30-5.90) m/uL Hgb (13.0-17.5) gm/dL Hct (39.0-53.0) % RDW (11.5-15.5) % Neutrophils # (1.3-7.7) k/uL Lymphocytes # (1.0-4.8) k/uL Sodium (137-145) mmol/L Carbon Dioxide (22-30) mmol/L BUN (9-20) mg/dL Creatinine (0.66-1.25) mg/dL Glucose (74-99) mg/dL POC Glucose (mg/dL) 55 L 58 L 42 L (70-110) mg/dL Plasma Lactic Acid Christopher (0.7-2.0) mmol/L Calcium (8.4-10.2) mg/dL Magnesium (1.6-2.3) mg/dL Albumin (3.5-5.0) g/dL TSH (0.465-4.680) mIU/L 03/25/23 03/26/23 03/26/23 Range/Units 23:49 00:38 01:48 WBC (3.8-10.6) k/uL RBC (4.30-5.90) m/uL Hgb (13.0-17.5) gm/dL Hct (39.0-53.0) % RDW (11.5-15.5) % Neutrophils # (1.3-7.7) k/uL Lymphocytes # (1.0-4.8) k/uL Sodium (137-145) mmol/L Carbon Dioxide (22-30) mmol/L BUN (9-20) mg/dL Creatinine (0.66-1.25) mg/dL Glucose (74-99) mg/dL POC Glucose (mg/dL) 43 L 69 L 41 L (70-110) mg/dL Plasma Lactic Acid Christopher (0.7-2.0) mmol/L Calcium (8.4-10.2) mg/dL Magnesium (1.6-2.3) mg/dL Albumin (3.5-5.0) g/dL TSH (0.465-4.680) mIU/L 03/26/23 03/26/23 03/26/23 Range/Units 02:52 03:56 04:26 WBC (3.8-10.6) k/uL RBC 4.04 L (4.30-5.90) m/uL Hgb 11.6 L (13.0-17.5) gm/dL Hct 34.6 L (39.0-53.0) % RDW 15.9 H (11.5-15.5) % Neutrophils # 8.3 H (1.3-7.7) k/uL Lymphocytes # 0.4 L (1.0-4.8) k/uL Sodium (137-145) mmol/L Carbon Dioxide (22-30) mmol/L BUN (9-20) mg/dL Creatinine (0.66-1.25) mg/dL Glucose (74-99) mg/dL POC Glucose (mg/dL) 53 L 53 L (70-110) mg/dL Plasma Lactic Acid Christopher (0.7-2.0) mmol/L Calcium (8.4-10.2) mg/dL Magnesium (1.6-2.3) mg/dL Albumin (3.5-5.0) g/dL TSH (0.465-4.680) mIU/L 03/26/23 03/26/23 03/26/23 Range/Units 04:26 04:26 04:43 WBC (3.8-10.6) k/uL RBC (4.30-5.90) m/uL Hgb (13.0-17.5) gm/dL Hct (39.0-53.0) % RDW (11.5-15.5) % Neutrophils # (1.3-7.7) k/uL Lymphocytes # (1.0-4.8) k/uL Sodium 128 L (137-145) mmol/L Carbon Dioxide (22-30) mmol/L BUN 41 H (9-20) mg/dL Creatinine 1.54 H (0.66-1.25) mg/dL Glucose 35 L* (74-99) mg/dL POC Glucose (mg/dL) 56 L (70-110) mg/dL Plasma Lactic Acid Christopher (0.7-2.0) mmol/L Calcium 7.5 L (8.4-10.2) mg/dL Magnesium 1.4 L (1.6-2.3) mg/dL Albumin (3.5-5.0) g/dL TSH 4.970 H (0.465-4.680) mIU/L 03/26/23 03/26/23 03/26/23 Range/Units 05:06 05:59 07:01 WBC (3.8-10.6) k/uL RBC (4.30-5.90) m/uL Hgb (13.0-17.5) gm/dL Hct (39.0-53.0) % RDW (11.5-15.5) % Neutrophils # (1.3-7.7) k/uL Lymphocytes # (1.0-4.8) k/uL Sodium (137-145) mmol/L Carbon Dioxide (22-30) mmol/L BUN (9-20) mg/dL Creatinine (0.66-1.25) mg/dL Glucose (74-99) mg/dL POC Glucose (mg/dL) 40 L 64 L 45 L (70-110) mg/dL Plasma Lactic Acid Christopher (0.7-2.0) mmol/L Calcium (8.4-10.2) mg/dL Magnesium (1.6-2.3) mg/dL Albumin (3.5-5.0) g/dL TSH (0.465-4.680) mIU/L 03/26/23 03/26/23 03/26/23 Range/Units 08:02 08:52 09:43 WBC (3.8-10.6) k/uL RBC (4.30-5.90) m/uL Hgb (13.0-17.5) gm/dL Hct (39.0-53.0) % RDW (11.5-15.5) % Neutrophils # (1.3-7.7) k/uL Lymphocytes # (1.0-4.8) k/uL Sodium (137-145) mmol/L Carbon Dioxide (22-30) mmol/L BUN (9-20) mg/dL Creatinine (0.66-1.25) mg/dL Glucose (74-99) mg/dL POC Glucose (mg/dL) 39 L 49 L 48 L (70-110) mg/dL Plasma Lactic Acid Christopher (0.7-2.0) mmol/L Calcium (8.4-10.2) mg/dL Magnesium (1.6-2.3) mg/dL Albumin (3.5-5.0) g/dL TSH (0.465-4.680) mIU/L 03/26/23 03/26/23 Range/Units 11:16 11:32 WBC (3.8-10.6) k/uL RBC (4.30-5.90) m/uL Hgb (13.0-17.5) gm/dL Hct (39.0-53.0) % RDW (11.5-15.5) % Neutrophils # (1.3-7.7) k/uL Lymphocytes # (1.0-4.8) k/uL Sodium (137-145) mmol/L Carbon Dioxide (22-30) mmol/L BUN (9-20) mg/dL Creatinine (0.66-1.25) mg/dL Glucose (74-99) mg/dL POC Glucose (mg/dL) 67 L 115 H (70-110) mg/dL Plasma Lactic Acid Christopher (0.7-2.0) mmol/L Calcium (8.4-10.2) mg/dL Magnesium (1.6-2.3) mg/dL Albumin (3.5-5.0) g/dL TSH (0.465-4.680) mIU/L Microbiology - Last 24 Hours (Table) 03/25/23 17:41 Gram Stain - Preliminary Ankle - Left Assessment and Plan Plan: Hypoglycemia refractory to glucose replacement, patient has received a total of 10 ampules of D50W so far, and D10W at 100 ml/hr was started. Patient does take metformin and a sulfonylurea on outpatient basis. No other etiology identified. Blood sugars been maintained above 100 and the patient is being monitored closely here in the intensive care unit. Bilateral lower extremity cellulitis, worse in the right lower extremity and the patient has a superficial wound that has been debrided and there is a wound covering the anterior aspect of the right lower extremity was erythematous and draining minimally, nonpurulent material. 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 History of right lower extremity DVT and pulmonary embolism anticoagulated on Xarelto History of factor V Leyden mutation Acute kidney injury, improving Mild hyponatremia Diabetes mellitus type 2, [id number], normally managed with metformin on an outpatient basis Essential hypertension Hyperlipidemia Severe persistent asthma, stable Plan: Continue D10W at 100 ML's per hour Monitor the blood sugar No need for pressors Continue IV Zosyn Obtain Doppler of the right lower extremity Hold anti-hyperglycemics Check TSH and cortisol levels, levels are adequate at this point in time LFTs are non-elevated Continue home Symbicort inhaler with when necessary Ventolin inhaler Antibiotics per infectious disease We will continue to follow, and make recommendations while in the ICU
--- NOTE | 2023-03-26 12:07 | IR ---
PICC LINE PLACEMENT: HISTORY: Infection requiring long-term antibiotic therapy PROCEDURE: Ultrasound guidance of PICC line placement. SEWER [employer]OR: COMPLICATIONS: None ANESTHESIA: 1. 1% Lidocaine locally. FINDINGS/TECHNIQUE: The procedure was explained to the patient. The risks, complications, benefits and alternatives were discussed and any questions were answered. Informed consent was obtained. The patient was placed supine on the fluoroscopic table and prepped and draped in the usual sterile fash ion. Utilizing a 21 gauge needle and sonographic guidance, access in the left basilic vein was achi eved and there is placement of a 0.018 guidewire. The vein is patent. A 5-F. sheath was placed over the guidewire. The guidewire and dilator were removed and a 5-F. Double lumen PICC line was placed through the sheath with the chest x-ray confirming the tip at the level of the SVC. The sheath was r emoved, the catheter was flushed and sutured into position. The patient was stable throughout the pr ocedure and remained stable upon discharge from the Department of Radiology. The vein puncture was patent under ultrasound. A brar scale image was obtained to document patency of the vein punctured. All elements of the maximal barrier technique were utilized. IMPRESSION: 1. Successful PICC line placement under ultrasound performed bedside within the ICU.
[2023-03-26 12:20] LABS: Glucose,Whole Blood 96 mg/dL (70-110)
[2023-03-26 12:40] LABS: Glucose,Whole Blood 104 mg/dL (70-110)
--- NOTE | 2023-03-26 12:47 | P.NPCON ---
History of Present Illness - Reason for Consult acute renal failure - History of Present Illness Patient is a 77 year-old male with previous history of type 2 diabetes factor V Leyden mutation, history of right leg DVT and PE who is admitted to the hospital with history of increasing redness and swelling both legs but worse on the right leg. Patient states that he has had drainage from both legs. Patient did admit to fever and increased weakness. Blood sugar has been significantly low aging between 35-40. Patient remains on D10 at 100 ML per hour. He is trying to eat and increase his oral intake. On oral hypoglycemic agents are on hold. Serum creatinine was 1.9 on initial admission and it is down to 1.5. Blood pressures have been low with systolic at 82 mmHg this morning. Patient has been voiding. Maintained on antibiotics for lower extremity cellulitis. Previous creatinine 1.1 on 11/27/2022 Review of Systems As per HPI Past Medical History Past Medical History: Asthma, Blood Disorder, Cancer, Diabetes Mellitus, Deep Vein Thrombosis (DVT), GERD/Reflux, GI Bleed, Hyperlipidemia, Hypertension, Osteoarthritis (OA), Pneumonia, Pulmonary Embolus (PE), Thyroid Disorder Additional Past Medical History / Comment(s): occular migraines, SOB with activity, hx cellulitis x 5, clotting disorder-Factor V- Leiden, basal cell skin ca(folicular), heart murmur, kidney stones, edema rt leg, History of Any Multi-Drug Resistant Organisms: None Reported, MRSA Date of last positivie culture/infection: 2012 MDRO Source:: bilateral legs Past Surgical History: Cholecystectomy, Hernia Repair, Tonsillectomy Additional Past Surgical History / Comment(s): 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 Smoking Status: Former smoker Past Alcohol Use History: Occasional Additional Past Alcohol Use History / Comment(s): Started smoking at age 17(1962) and quit age 30(1974). Past Drug Use History: None Reported - Past Family History Mother Family Medical History: No Reported History Additional Family Medical History / Comment(s): . Father Family Medical History: No Reported History Additional Family Medical History / Comment(s): age 72. Medications and Allergies Home Medications Medication Instructions Recorded Confirmed Type Atorvastatin [Lipitor] 10 mg PO DAILY 10/04/17 03/25/23 History Levothyroxine Sodium [Synthroid] 200 mcg PO DAILY 10/20/19 03/25/23 History Montelukast Sodium [Singulair] 10 mg PO HS 10/20/19 03/25/23 History tiZANidine HCL [Zanaflex] 4 mg PO TID PRN 03/31/20 03/25/23 History Rivaroxaban [Xarelto] 20 mg PO DAILY 05/03/21 03/25/23 History Pioglitazone [Actos] 15 mg PO DAILY 05/12/22 03/25/23 History dilTIAZem HCL [dilTIAZem RGE50Sa 240 mg PO DAILY 05/12/22 03/25/23 History ER (CD)] Albuterol Sulfate [Ventolin HFA] 2 puff INHALATION RT-Q4H #0 07/07/22 03/25/23 Rx Furosemide [Lasix] 40 mg PO DAILY 30 Days #30 tablet 07/07/22 03/25/23 Rx HYDROcodone/APAP 5-325MG [[place] 1 tab PO BID PRN 03/25/23 03/25/23 History 5-325] Omeprazole [PriLOSEC] 20 mg PO DAILY 03/25/23 03/25/23 History Testosterone Cypionate 200 mg IM Q14D 03/25/23 03/25/23 History [Depo-Testosterone] glipiZIDE XL [Glucotrol Xl] 20 mg PO DAILY 03/25/23 03/25/23 History metFORMIN HCL [Glucophage] 500 mg PO BID 03/25/23 03/25/23 History Allergies Allergy/AdvReac Type Severity Reaction Status Date / Time Iodinated Contrast Media Allergy Anaphylaxis Verified 03/25/23 19:33 iodine Allergy Anaphylaxis Verified 03/25/23 19:33 latex Allergy recent Verified 03/25/23 19:33 testing revealed allergen, no reported reactions yet shellfish derived Allergy Anaphylaxis Verified 03/25/23 19:33 shrimp Allergy Anaphylaxis Verified 03/25/23 19:33 tuna oil Allergy Unknown Verified 03/25/23 19:33 codeine AdvReac Rapid Verified 03/25/23 19:33 Heart Rate lisinopril AdvReac Cough Verified 03/25/23 19:33 Physical Exam Vitals: Vital Signs Temp Pulse Pulse Resp BP BP Pulse Ox 03/26/23 10:30 94 18 109/53 93 L 03/26/23 10:00 93 25 H 94 L 03/26/23 09:30 84 95 03/26/23 09:00 95 117/71 95 03/26/23 08:30 70 23 99/64 95 03/26/23 08:00 99.3 F 84 25 H 90/58 93 L 03/26/23 07:30 79 29 H 123/57 97 03/26/23 07:00 74 24 116/48 94 L 03/26/23 06:30 81 28 H 95/63 94 L 03/26/23 06:00 83 27 H 82/41 94 L 03/26/23 05:30 86 23 100/51 94 L 03/26/23 05:00 84 25 H 125/36 98 03/26/23 04:30 87 30 H 124/71 96 03/26/23 04:23 93 31 H 115/71 03/26/23 02:00 99.0 F 78 18 95 03/25/23 20:23 98.7 F 90 18 93/53 97 03/25/23 19:10 98.7 F 87 18 101/63 94 L 03/25/23 14:12 98.6 F 115 H 18 102/56 95 Intake and Output 03/25/23 03/26/23 03/26/23 22:59 06:59 14:59 Intake Total 400 400 Output Total 540 Balance -140 400 Intake: IV 400 400 Dextrose 10% in Water 500 300 400 ml In Empty Bag 1 bag @ 100 mls/hr IV .Q5H [facility] Rx #:[id number] Piperacillin-Tazobactam 3 100 .375 gm In Sodium Chloride 0.9% 100 ml @ 25 mls/hr IVPB Q8HR [facility] Rx# :[id number] Output: Urine 540 Other: Voiding Method Urinal # Voids 1 1 Weight 97.069 kg Patient is awake, comfortable, in no acute distress Examination of the heart S1 and S2 Examination of the lungs bilateral breath sounds are heard Abdomen is soft obese nontender Examination lower extremity shows chronic skin changes bilaterally with erythema noted in the right lower extremity. Left leg is currently wrapped. Anus exam grossly intact Results - Lab Results Most recent lab results Calcium 7.5 mg/dL (8.4-10.2) L 03/26/23 04:26 Magnesium 1.4 mg/dL (1.6-2.3) L 03/26/23 04:26 03/26/23 04:26 03/26/23 04:26 Assessment and Plan Assessment: 1. Acute kidney injury ATN currently nonoliguric secondary to hypotension and underlying infection. Currently maintained on IV fluids and improving. 2. Hyponatremia secondary to hypotonic fluid 3. Persistent hypoglycemia slowly improving. All hypoglycemic agents are on hold. 4. Bilateral lower extremity cellulitis, maintained on antibiotics 5. Right lower extremity DVT, chronic with history of PE maintained on xarelto Plan: Continue IV hydration Add saline to dextrose since sodium has dropped Continue antibiotics Repeat labs in a.m. Okay to proceed with PICC line in either arm Thank you for the consultation. We will continue to follow the patient with you during his hospitalization
[2023-03-26 13:01] LABS: Glucose,Whole Blood 82 mg/dL (70-110)
[2023-03-26 13:20] LABS: Glucose,Whole Blood 87 mg/dL (70-110)
[2023-03-26 13:33] LABS: Glucose,Whole Blood 93 mg/dL (70-110)
[2023-03-26 13:56] LABS: Glucose,Whole Blood 89 mg/dL (70-110)
[2023-03-26] MEDS ORDERED: DEXTROSE 10% IN WATER 1,000 ML with SODIUM CHLORIDE 4MEQ/ML VIAL 153.8 MEQ IV SCH (14:00)
[2023-03-26 15:04] LABS: Glucose,Whole Blood 93 mg/dL (70-110)
--- NOTE | 2023-03-26 15:40 | US ---
EXAMINATION TYPE: US venous doppler duplex LE RT DATE OF EXAM: 03/26/2023 3:02 PM COMPARISON: NONE CLINICAL INDICATION: Male, 77 years old with history of r/o DVT, previous hx. DVT in right leg; On bl ood thinners. SIDE PERFORMED: Right TECHNIQUE: The lower extremity deep venous system is examined utilizing real time linear array sonog luisa with graded compression, doppler sonography and color-flow sonography. VESSELS IMAGED: Common Femoral Vein Deep Femoral Vein Greater Saphenous Vein *- Not visualized Femoral Vein Popliteal Vein- Not visualized Small Saphenous Vein *- Not visualized Proximal Calf Veins (* superficial vessels) Extremely limited exam due to patient body habitus, edema and patient unable to tolerate probe pre ssure Right Leg: Possible POSITIVE for DVT from CFV to mid femoral vein. Popliteal veins not visualized d ue to edema and patient unable to tolerate the probe. IMPRESSION: Exam is positive for DVT right common femoral vein to mid superficial femoral vein. Repor t called to patient's nurse 3:36 PM 03/26/2023
[2023-03-26 15:48] LABS: Glucose,Whole Blood 81 mg/dL (70-110)
[2023-03-26 16:22] LABS: Glucose,Whole Blood 86 mg/dL (70-110)
[2023-03-26] MEDS ORDERED: Magnesium Replacement Protocol 1 EACH MISC MISCELLANE PRN (17:01)
[2023-03-26 17:45] LABS: Glucose,Whole Blood 91 mg/dL (70-110)
[2023-03-26] MEDS: MAGNESIUM SULFATE-D5W PMX 1 GM in DEXTROSE/WATER 1 100ML.BAG IVPB SCH ×2 (18:00→19:08)
[2023-03-26] MEDS: ACETAMINOPHEN TAB 325 MG TAB PO PRN (18:09)
[2023-03-26 18:59] LABS: Glucose,Whole Blood 152 mg/dL (70-110)
[2023-03-26] MEDS: tiZANidine 4 MG TAB PO PRN (19:08)
[2023-03-26] MEDS ORDERED: MIDODRINE 5 MG TAB PO ONE (19:45)
[2023-03-26 19:53] LABS: Glucose,Whole Blood 155 mg/dL (70-110)
[2023-03-26 20:38] LABS: Glucose,Whole Blood 171 mg/dL (70-110)
[2023-03-26] MEDS: FAMOTIDINE 20 MG/2 ML VIAL IV SCH (21:00)
[2023-03-26] MEDS: NOREPINEPHRINE 8 MG in SODIUM CHLORIDE 0.9% 250 ML IV SCH (21:13)
[2023-03-26 21:34] LABS: Glucose,Whole Blood 199 mg/dL (70-110)
--- NOTE | 2023-03-26 21:58 | P.CONS ---
History of Present Illness - Reason for Consult Consult date: 03/26/23 Cellulitis Requesting physician: Johnny Lieberman - Chief Complaint Swelling redness and pain to the right lower extremity x few days - History of Present Illness Patient is a 77-year-old male with a past medical history negative for hypertension hyperlipidemia diabetes mellitus PE patient also have a lower extremity venous stasis ulcer and history of recurrent cellulitis patient presenting to the hospital concerning for right leg infection patient noticed to have increasing redness to discomfort and drainage to the right lower extremity that has been getting worse for the last few days. Denies any history of any trauma patient has been complaining of discomfort right lower extremity more of a dull aching pain 6-7 out of 10 no radiation did have associated swelling or redness and a foul-smelling drainage on presentation to the hospital he was afebrile did have a low-grade fever of 99.8 F this afternoon patient was not tachycardic and mildly hypertensive and hypoxic patient also noted to be hypoglycemic with a blood sugar of 34 admission and the patient has been admitted to the ICU he did have vital of 11.1 with a left shift BUN and creatinine has been mildly elevated lactic acid was elevated 2.4-2.8 liver exams are normal left lower extremity wound culture obtained currently pending chest x-ray with bilateral effusion patient was started on vancomycin infectious disease was consulted for further management of antibiotic therapy Review of Systems Positive point and negatives has been mentioned in the HPI, complete review of systems was performed and all other systems are negative Past Medical History Past Medical History: Asthma, Blood Disorder, Cancer, Diabetes Mellitus, Deep Vein Thrombosis (DVT), GERD/Reflux, GI Bleed, Hyperlipidemia, Hypertension, Osteoarthritis (OA), Pneumonia, Pulmonary Embolus (PE), Thyroid Disorder Additional Past Medical History / Comment(s): occular migraines, SOB with activity, hx cellulitis x 5, clotting disorder-Factor V- Leiden, basal cell skin ca(folicular), heart murmur, kidney stones, edema rt leg, History of Any Multi-Drug Resistant Organisms: None Reported, MRSA Year Discovered:: 2012 MDRO Source:: bilateral legs Past Surgical History: Cholecystectomy, Hernia Repair, Tonsillectomy Additional Past Surgical History / Comment(s): 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 Smoking Status: Former smoker Past Alcohol Use History: Occasional Additional Past Alcohol Use History / Comment(s): Started smoking at age 17(1962) and quit age 30(1974). Past Drug Use History: None Reported - Past Family History Mother Family Medical History: No Reported History Additional Family Medical History / Comment(s): . Father Family Medical History: No Reported History Additional Family Medical History / Comment(s): age 72. Medications and Allergies Home Medications Medication Instructions Recorded Confirmed Type Atorvastatin [Lipitor] 10 mg PO DAILY 10/04/17 03/25/23 History Levothyroxine Sodium [Synthroid] 200 mcg PO DAILY 10/20/19 03/25/23 History Montelukast Sodium [Singulair] 10 mg PO HS 10/20/19 03/25/23 History tiZANidine HCL [Zanaflex] 4 mg PO TID PRN 03/31/20 03/25/23 History Rivaroxaban [Xarelto] 20 mg PO DAILY 05/03/21 03/25/23 History Pioglitazone [Actos] 15 mg PO DAILY 05/12/22 03/25/23 History Albuterol Sulfate [Ventolin HFA] 2 puff INHALATION RT-Q4H #0 07/07/22 03/25/23 Rx Furosemide [Lasix] 40 mg PO DAILY 30 Days #30 tablet 07/07/22 03/25/23 Rx Omeprazole [PriLOSEC] 20 mg PO DAILY 03/25/23 03/25/23 History Testosterone Cypionate 200 mg IM Q14D 03/25/23 03/25/23 History [Depo-Testosterone] glipiZIDE XL [Glucotrol XL] 20 mg PO DAILY 03/25/23 03/25/23 History metFORMIN HCL [Glucophage] 500 mg PO BID 03/25/23 03/25/23 History Fluticasone/Vilanterol [Breo 1 puff INHALATION RT-DAILY 03/26/23 03/26/23 History Ellipta 100-25 Mcg Inhaler] Cefepime [Maxipime] 2 gm IVPB Q8H #120 each 04/09/23 Rx Cholestyramine (with Sugar) 4 gm PO BID@1000,1800 #14 packet 04/09/23 Rx [Questran Packet] HYDROcodone/APAP 5-325MG [[place] 1 tab PO Q6HR PRN #12 04/09/23 03/25/23 Rx 5-325] Midodrine [ProAmatine] 10 mg PO AC-TID #30 tab 04/09/23 Rx Nystatin 100,000 Unit/gm Powd 1 applic TOPICAL TID #1 each 04/09/23 Rx [Mycostatin Powder] Vancomycin HCl in 5 % Dextrose 2 gm IV Q12HR #84 each 04/09/23 Rx [Vancomycin 1 Gram/250 ml-D5w] metroNIDAZOLE [Flagyl] 500 mg PO TID #120 tab 04/09/23 Rx Allergies Allergy/AdvReac Type Severity Reaction Status Date / Time Iodinated Contrast Media Allergy Anaphylaxis Verified 03/25/23 19:33 iodine Allergy Anaphylaxis Verified 03/25/23 19:33 latex Allergy recent Verified 03/25/23 19:33 testing revealed allergen, no reported reactions yet shellfish derived Allergy Anaphylaxis Verified 03/25/23 19:33 shrimp Allergy Anaphylaxis Verified 03/25/23 19:33 tuna oil Allergy Unknown Verified 03/25/23 19:33 codeine AdvReac Rapid Verified 03/25/23 19:33 Heart Rate lisinopril AdvReac Cough Verified 03/25/23 19:33 Physical Exam Vitals: Vital Signs Temp Pulse Pulse Resp BP BP Pulse Ox 03/26/23 07:00 74 24 116/48 94 L 03/26/23 06:30 81 28 H 95/63 94 L 03/26/23 06:00 83 27 H 82/41 94 L 03/26/23 05:30 86 23 100/51 94 L 03/26/23 05:00 84 25 H 125/36 98 03/26/23 04:30 87 30 H 124/71 96 03/26/23 04:23 93 31 H 115/71 03/26/23 02:00 99.0 F 78 18 95 03/25/23 20:23 98.7 F 90 18 93/53 97 03/25/23 19:10 98.7 F 87 18 101/63 94 L 03/25/23 14:12 98.6 F 115 H 18 102/56 95 Intake and Output 07/03/26/23 03/26/23 22:59 06:59 14:59 Intake Total 400 200 Output Total 540 Balance -140 200 Intake: IV 400 200 Dextrose 10% in Water 500 300 200 ml In Empty Bag 1 bag @ 100 mls/hr IV .Q5H [facility] Rx #:[id number] Piperacillin-Tazobactam 3 100 .375 gm In Sodium Chloride 0.9% 100 ml @ 25 mls/hr IVPB Q8HR [facility] Rx# :[id number] Output: Urine 540 Other: Voiding Method Urinal # Voids 1 Weight 97.069 kg GENERAL DESCRIPTION: Elderly male lying in bed, no distress. No tachypnea or accessory muscle of respiration use. HEENT: Shows Pallor , no scleral icterus. Oral mucous membrane is dry. No pharyngeal erythema or thrush NECK: Trachea central, no thyromegaly. LUNGS: Unlabored breathing. Clear to auscultation anteriorly. No wheeze or crackle. HEART: S1, S2, regular rate and rhythm. No loud murmur ABDOMEN: Soft, no tenderness , guarding or rigidity, no organomegaly EXTREMITIES: Right lower extremity with diffuse swelling and redness did have some superficial ulceration with minimal slough tissue no foul-smelling drainage. SKIN: No rash, no masses palpable. NEUROLOGICAL: The patient is awake, alert, oriented x3, mood and affect normal. Results CBC & Chem 7: 04/09/23 04:49 04/09/23 04:49 Labs: Abnormal Lab Results - Last 24 Hours (Table) 03/25/23 03/25/23 03/25/23 Range/Units 14:41 14:41 14:41 WBC 11.1 H (3.8-10.6) k/uL RBC (4.30-5.90) m/uL Hgb 12.2 L (13.0-17.5) gm/dL Hct 37.4 L (39.0-53.0) % RDW 15.9 H (11.5-15.5) % Neutrophils # 10.2 H (1.3-7.7) k/uL Lymphocytes # 0.4 L (1.0-4.8) k/uL Sodium 131 L (137-145) mmol/L Carbon Dioxide 21 L (22-30) mmol/L BUN 40 H (9-20) mg/dL Creatinine 1.93 H (0.66-1.25) mg/dL Glucose 31 L* (74-99) mg/dL POC Glucose (mg/dL) (70-110) mg/dL Plasma Lactic Acid Christopher 2.8 H* (0.7-2.0) mmol/L Calcium 8.2 L (8.4-10.2) mg/dL Magnesium (1.6-2.3) mg/dL Albumin 3.0 L (3.5-5.0) g/dL TSH (0.465-4.680) mIU/L 03/25/23 03/25/23 03/25/23 Range/Units 15:32 17:42 18:53 WBC (3.8-10.6) k/uL RBC (4.30-5.90) m/uL Hgb (13.0-17.5) gm/dL Hct (39.0-53.0) % RDW (11.5-15.5) % Neutrophils # (1.3-7.7) k/uL Lymphocytes # (1.0-4.8) k/uL Sodium (137-145) mmol/L Carbon Dioxide (22-30) mmol/L BUN (9-20) mg/dL Creatinine (0.66-1.25) mg/dL Glucose (74-99) mg/dL POC Glucose (mg/dL) 34 L 44 L (70-110) mg/dL Plasma Lactic Acid Christopher 2.1 H* (0.7-2.0) mmol/L Calcium (8.4-10.2) mg/dL Magnesium (1.6-2.3) mg/dL Albumin (3.5-5.0) g/dL TSH (0.465-4.680) mIU/L 03/25/23 03/25/23 03/25/23 Range/Units 19:12 19:29 19:48 WBC (3.8-10.6) k/uL RBC (4.30-5.90) m/uL Hgb (13.0-17.5) gm/dL Hct (39.0-53.0) % RDW (11.5-15.5) % Neutrophils # (1.3-7.7) k/uL Lymphocytes # (1.0-4.8) k/uL Sodium (137-145) mmol/L Carbon Dioxide (22-30) mmol/L BUN (9-20) mg/dL Creatinine (0.66-1.25) mg/dL Glucose (74-99) mg/dL POC Glucose (mg/dL) 56 L 62 L 67 L (70-110) mg/dL Plasma Lactic Acid Christopher (0.7-2.0) mmol/L Calcium (8.4-10.2) mg/dL Magnesium (1.6-2.3) mg/dL Albumin (3.5-5.0) g/dL TSH (0.465-4.680) mIU/L 03/25/23 03/25/23 03/25/23 Range/Units 20:17 21:58 21:59 WBC (3.8-10.6) k/uL RBC (4.30-5.90) m/uL Hgb (13.0-17.5) gm/dL Hct (39.0-53.0) % RDW (11.5-15.5) % Neutrophils # (1.3-7.7) k/uL Lymphocytes # (1.0-4.8) k/uL Sodium (137-145) mmol/L Carbon Dioxide (22-30) mmol/L BUN (9-20) mg/dL Creatinine (0.66-1.25) mg/dL Glucose (74-99) mg/dL POC Glucose (mg/dL) 39 L 42 L (70-110) mg/dL Plasma Lactic Acid Christopher 2.4 H* (0.7-2.0) mmol/L Calcium (8.4-10.2) mg/dL Magnesium (1.6-2.3) mg/dL Albumin (3.5-5.0) g/dL TSH (0.465-4.680) mIU/L 03/25/23 03/25/23 03/25/23 Range/Units 22:15 22:17 22:30 WBC (3.8-10.6) k/uL RBC (4.30-5.90) m/uL Hgb (13.0-17.5) gm/dL Hct (39.0-53.0) % RDW (11.5-15.5) % Neutrophils # (1.3-7.7) k/uL Lymphocytes # (1.0-4.8) k/uL Sodium (137-145) mmol/L Carbon Dioxide (22-30) mmol/L BUN (9-20) mg/dL Creatinine (0.66-1.25) mg/dL Glucose (74-99) mg/dL POC Glucose (mg/dL) 36 L 37 L 54 L (70-110) mg/dL Plasma Lactic Acid Christopher (0.7-2.0) mmol/L Calcium (8.4-10.2) mg/dL Magnesium (1.6-2.3) mg/dL Albumin (3.5-5.0) g/dL TSH (0.465-4.680) mIU/L 03/25/23 03/25/23 03/25/23 Range/Units 22:45 23:03 23:30 WBC (3.8-10.6) k/uL RBC (4.30-5.90) m/uL Hgb (13.0-17.5) gm/dL Hct (39.0-53.0) % RDW (11.5-15.5) % Neutrophils # (1.3-7.7) k/uL Lymphocytes # (1.0-4.8) k/uL Sodium (137-145) mmol/L Carbon Dioxide (22-30) mmol/L BUN (9-20) mg/dL Creatinine (0.66-1.25) mg/dL Glucose (74-99) mg/dL POC Glucose (mg/dL) 55 L 58 L 42 L (70-110) mg/dL Plasma Lactic Acid Christopher (0.7-2.0) mmol/L Calcium (8.4-10.2) mg/dL Magnesium (1.6-2.3) mg/dL Albumin (3.5-5.0) g/dL TSH (0.465-4.680) mIU/L 03/25/23 03/26/23 03/26/23 Range/Units 23:49 00:38 01:48 WBC (3.8-10.6) k/uL RBC (4.30-5.90) m/uL Hgb (13.0-17.5) gm/dL Hct (39.0-53.0) % RDW (11.5-15.5) % Neutrophils # (1.3-7.7) k/uL Lymphocytes # (1.0-4.8) k/uL Sodium (137-145) mmol/L Carbon Dioxide (22-30) mmol/L BUN (9-20) mg/dL Creatinine (0.66-1.25) mg/dL Glucose (74-99) mg/dL POC Glucose (mg/dL) 43 L 69 L 41 L (70-110) mg/dL Plasma Lactic Acid Christopher (0.7-2.0) mmol/L Calcium (8.4-10.2) mg/dL Magnesium (1.6-2.3) mg/dL Albumin (3.5-5.0) g/dL TSH (0.465-4.680) mIU/L 03/26/23 03/26/23 03/26/23 Range/Units 02:52 03:56 04:26 WBC (3.8-10.6) k/uL RBC 4.04 L (4.30-5.90) m/uL Hgb 11.6 L (13.0-17.5) gm/dL Hct 34.6 L (39.0-53.0) % RDW 15.9 H (11.5-15.5) % Neutrophils # 8.3 H (1.3-7.7) k/uL Lymphocytes # 0.4 L (1.0-4.8) k/uL Sodium (137-145) mmol/L Carbon Dioxide (22-30) mmol/L BUN (9-20) mg/dL Creatinine (0.66-1.25) mg/dL Glucose (74-99) mg/dL POC Glucose (mg/dL) 53 L 53 L (70-110) mg/dL Plasma Lactic Acid Christopher (0.7-2.0) mmol/L Calcium (8.4-10.2) mg/dL Magnesium (1.6-2.3) mg/dL Albumin (3.5-5.0) g/dL TSH (0.465-4.680) mIU/L 03/26/23 03/26/23 03/26/23 Range/Units 04:26 04:26 04:43 WBC (3.8-10.6) k/uL RBC (4.30-5.90) m/uL Hgb (13.0-17.5) gm/dL Hct (39.0-53.0) % RDW (11.5-15.5) % Neutrophils # (1.3-7.7) k/uL Lymphocytes # (1.0-4.8) k/uL Sodium 128 L (137-145) mmol/L Carbon Dioxide (22-30) mmol/L BUN 41 H (9-20) mg/dL Creatinine 1.54 H (0.66-1.25) mg/dL Glucose 35 L* (74-99) mg/dL POC Glucose (mg/dL) 56 L (70-110) mg/dL Plasma Lactic Acid Christopher (0.7-2.0) mmol/L Calcium 7.5 L (8.4-10.2) mg/dL Magnesium 1.4 L (1.6-2.3) mg/dL Albumin (3.5-5.0) g/dL TSH 4.970 H (0.465-4.680) mIU/L 03/26/23 03/26/23 03/26/23 Range/Units 05:06 05:59 07:01 WBC (3.8-10.6) k/uL RBC (4.30-5.90) m/uL Hgb (13.0-17.5) gm/dL Hct (39.0-53.0) % RDW (11.5-15.5) % Neutrophils # (1.3-7.7) k/uL Lymphocytes # (1.0-4.8) k/uL Sodium (137-145) mmol/L Carbon Dioxide (22-30) mmol/L BUN (9-20) mg/dL Creatinine (0.66-1.25) mg/dL Glucose (74-99) mg/dL POC Glucose (mg/dL) 40 L 64 L 45 L (70-110) mg/dL Plasma Lactic Acid Christopher (0.7-2.0) mmol/L Calcium (8.4-10.2) mg/dL Magnesium (1.6-2.3) mg/dL Albumin (3.5-5.0) g/dL TSH (0.465-4.680) mIU/L 03/26/23 03/26/23 03/26/23 Range/Units 08:02 08:52 09:43 WBC (3.8-10.6) k/uL RBC (4.30-5.90) m/uL Hgb (13.0-17.5) gm/dL Hct (39.0-53.0) % RDW (11.5-15.5) % Neutrophils # (1.3-7.7) k/uL Lymphocytes # (1.0-4.8) k/uL Sodium (137-145) mmol/L Carbon Dioxide (22-30) mmol/L BUN (9-20) mg/dL Creatinine (0.66-1.25) mg/dL Glucose (74-99) mg/dL POC Glucose (mg/dL) 39 L 49 L 48 L (70-110) mg/dL Plasma Lactic Acid Christopher (0.7-2.0) mmol/L Calcium (8.4-10.2) mg/dL Magnesium (1.6-2.3) mg/dL Albumin (3.5-5.0) g/dL TSH (0.465-4.680) mIU/L Assessment and Plan (1) Cellulitis of right leg Status: Acute Code(s): L03.115 - CELLULITIS OF RIGHT LOWER LIMB SNOMED Code(s): 263073985 (2) Chronic cutaneous venous stasis ulcer Status: Acute Code(s): I83.009 - VARICOSE VEINS OF UNSP LOWER EXTREMITY W ULCER OF UNSP SITE; L97.909 - NON-PRS CHRONIC ULC UNSP PRT OF UNSP LOW LEG W UNSP SEVERITY SNOMED Code(s): 34133582 Plan: 1patient was in the hospital with increasing pain swelling redness of the right lower extremity in this patient who do have a history of venous stasis ulcer to right lower extremity and concerning for cellulitis likely from gram-positive skin noe 2-mild renal insufficiency high risk of nephrotoxicity 3vancomycin pharmacy to dose with a target trough of 15 while watching kidney function and Vanco trough closely.. 4local wound care with Aquacel silver dressing and mild compression dressing. We will follow on clinical condition and cultures to further adjust medication if needed Thank you for this consultation we will follow the patient along with you Dictation was produced using dragon dictation software. please excuse any grammatical, word or spelling errors. Time with Patient: Greater than 30
[2023-03-26 22:50] LABS: Glucose,Whole Blood 199 mg/dL (70-110)
[2023-03-26 23:15] LABS: Glucose,Whole Blood 253 mg/dL (70-110)
[2023-03-26] MEDS: MONTELUKAST 10 MG TAB PO SCH (23:58)
[2023-03-27 00:13] LABS: Glucose,Whole Blood 205 mg/dL (70-110)
[2023-03-27] MEDS: PIPERACILLIN-TAZOBACTAM 3.375 GM in SODIUM CHLORIDE 0.9% 100 ML IVPB SCH ×3 (00:33→16:44)
[2023-03-27] MEDS: DEXTROSE 5%-0.9% NACL 1,000 ML IV SCH ×2 (00:33→16:45)
[2023-03-27] MEDS: ALBUTEROL NEBULIZED 2.5 MG/3 ML INHALATION SCH ×7 (00:39→23:51)
[2023-03-27] MEDS: INSULIN ASPART (NovoLOG) 100 UNIT/ML VIAL SQ SCH ×5 (02:21→20:10)
[2023-03-27 04:04] LABS: Glucose,Whole Blood 243 mg/dL (70-110)
[2023-03-27 05:42] LABS: Basophils % (A) 0 %; Eosinophils # (A) 0.1 k/uL (0-0.7); Eosinophils % (A) 1 %; HCT 34.7 % (39.0-53.0); HGB 11.3 gm/dL (13.0-17.5); Hypochromasia Slight; Lymphocytes # (A) 0.5 k/uL (1.0-4.8); Lymphocytes % (A) 4 %; MCH 28.2 pg (25.0-35.0); MCHC 32.5 g/dL (31.0-37.0); MCV 86.6 fL (80.0-100.0); Mean Platelet Volume 8.3; Monocytes # (A) 0.5 k/uL (0-1.0); Monocytes % (A) 4 %; Neutrophils # (A) 11.3 k/uL (1.3-7.7); Neutrophils % (A) 89 %; Platelet Count 199 k/uL (150-450); RBC 4.01 m/uL (4.30-5.90); RDW 15.9 % (11.5-15.5); WBC 12.6 k/uL (3.8-10.6)
[2023-03-27 05:53] LABS: African American GFR (CKD) 57 (>60 ml/min/1.73 sqM); Anion Gap 8 mmol/L; Blood Urea Nitrogen 33 mg/dL (9-20); Calcium 7.1 mg/dL (8.4-10.2); Carbon Dioxide 16 mmol/L (22-30); Chloride 104 mmol/L (98-107); Glucose 204 mg/dL (74-99); Magnesium 1.8 mg/dL (1.6-2.3); Non-African American GFR(CKD) 49 (>60 ml/min/1.73 sqM); Sodium 128 mmol/L (137-145)
[2023-03-27 05:55] LABS: Potassium 4.3 mmol/L (3.5-5.1)
[2023-03-27] MEDS ORDERED: MAGNESIUM SULFATE-D5W PMX 1 GM in DEXTROSE/WATER 1 100ML.BAG IVPB ONE (05:58)
[2023-03-27] MEDS: LEVOTHYROXINE 100 MCG TAB PO SCH (06:31)
[2023-03-27] MEDS: HYDROcodone/APAP 5-325MG 1 EACH TAB PO PRN ×2 (06:31→14:43)
[2023-03-27 06:50] LABS: Glucose,Whole Blood 230 mg/dL (70-110)
[2023-03-27] MEDS: MIDODRINE 5 MG TAB PO SCH ×3 (06:53→17:44)
[2023-03-27] MEDS ORDERED: CALCIUM GLUCONATE IN NACL 1 GM in SALINE 1 100ML.BAG IVPB ONE (08:04)
[2023-03-27] MEDS: FAMOTIDINE 20 MG/2 ML VIAL IV SCH ×2 (08:12→20:10)
[2023-03-27] MEDS: RIVAROXABAN 20 MG TAB PO SCH (08:13)
[2023-03-27] MEDS: ATORVASTATIN 10 MG TAB PO SCH (08:13)
[2023-03-27] MEDS: SYMBICORT 80-4.5 MCG INHALER INHALATION SCH ×2 (08:28→20:24)
[2023-03-27] MEDS ORDERED: PIOGLITAZONE 15 MG TAB PO SCH (09:00)
--- NOTE | 2023-03-27 09:44 | P.PN ---
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 Patient is admitted with worsening right leg swelling for the last 2 weeks as he explains to me with mild pain or discomfort in the area.. Also patient presents because of hypoglycemia. Patient was taken several of diabetes medications including metformin, Actos and glipizide 20 mg daily which patient was taken every day however he says that he had low appetite over the last 10 days and he was not eating well. Patient currently complaining of from 3-4/10 pain in his right leg. Patient can walk at home using a cane as he explains to me. Patient is fully awake and oriented and denies any other complaints. No chest pain or dyspnea. No new GI or urinary complaints. No headache dizziness weakness or numbness Patient says that he was taking testosterone at home to prevent him from falling down and other male characters 04/15/2023 Patient clinically looks the same, direct but answers questions appropriately. He denies any specific pain or discomfort. He was admitted with right leg cellulitis and currently is with Zeus wrap and he had loose bowel movement 1: No abdominal pain. His blood pressure on the low side requiring midodrine 10 mg and to make her on Levophed. Thank you again at 0.06 g per KG per minute. Also he is getting normal saline at 50 mL/h. Sugars start picking up today more than 200 therefore was started and Actos. This followed now is D5 normal saline at 50 mL/h. He is on Xarelto Uriostegui history of DVT/PE. Also he is on Zosyn Review of systems CONSTITUTIONAL: No fever, no malaise, no fatigue. HEENT: No recent visual problems or hearing problems. Denied any sore throat. CARDIOVASCULAR: No orthopnea, PND, no palpitations, no syncope. PULMONARY: No shortness of breath, no cough, no hemoptysis. GASTROINTESTINAL: No diarrhea, no nausea, no vomiting, no abdominal pain. Normoactive bowel sounds. Active Medications Generic Name Dose Route Start Last Admin Trade Name Freq PRN Reason Stop Dose Admin Acetaminophen 650 mg 03/25/23 16:10 03/26/23 18:09 Acetaminophen Tab 325 Mg Tab PO 650 mg Q6HR PRN Administration Mild Pain or Fever > 100.5 Hydrocodone Bitart/Acetaminophen 1 each 03/26/23 06:49 03/27/23 06:31 Hydrocodone/Apap 5-325mg 1 Each Tab PO 1 each BID PRN Administration Pain Albuterol Sulfate 2.5 mg 03/26/23 08:00 03/27/23 08:28 Albuterol Nebulized 2.5 Mg/3 Ml INHALATION Not Given RT-Q4H NUBIA Atorvastatin Calcium 10 mg 03/26/23 09:00 03/27/23 08:13 Atorvastatin 10 Mg Tab PO 10 mg DAILY NUBIA Administration Budesonide/Formoterol Fumarate 2 puff 03/26/23 08:00 03/27/23 08:28 Symbicort 80-4.5 Mcg Inhaler INHALATION Not Given RT-BID NUBIA Dextrose/Water 25 ml 03/25/23 19:20 03/26/23 11:18 Dextrose 50% Syringe 50 Ml IVP 25 ml PER PROTOCOL PRN Administration Hypoglycemia Protocol Dextrose/Water 50 ml 03/25/23 19:20 03/26/23 09:54 Dextrose 50% Syringe 50 Ml IVP 50 ml PER PROTOCOL PRN Administration Hypoglycemia Protocol Famotidine 20 mg 03/26/23 21:00 03/27/23 08:12 Famotidine 20 Mg/2 Ml Vial IV 20 mg Q12HR NUBIA Administration Piperacillin Sod/Tazobactam 100 mls @ 25 mls/hr 03/25/23 16:15 03/27/23 00:33 Sod 3.375 gm/ Sodium Chloride IVPB 25 mls/hr Q8HR NUBIA Administration Protocol Norepinephrine Bitartrate 8 mg 258 mls @ 5.635 mls/hr 03/26/23 21:15 03/27/23 09:34 / Sodium Chloride IV 0.04 mcg/kg/min .Q24H NUBIA 7.513 mls/hr Titration Protocol 0.03 MCG/KG/MIN Dextrose/Sodium Chloride 1,000 mls @ 50 mls/hr 03/26/23 22:30 03/27/23 00:33 Dextrose 5%-Ns Iv Soln IV 50 mls/hr .Q20H NUBIA Administration Insulin Aspart 0 unit 03/25/23 21:00 03/27/23 06:52 Insulin Aspart (Novolog) 100 Unit/Ml Vial SQ 4 unit [id number] NUBIA Administration Protocol Levothyroxine Sodium 200 mcg 03/26/23 07:00 03/27/23 06:31 Levothyroxine 100 Mcg Tab PO 200 mcg 0630 NUBIA Administration Midodrine 10 mg 03/27/23 07:30 03/27/23 06:53 Midodrine 5 Mg Tab PO 10 mg AC-TID NUBIA Administration Miscellaneous Information 1 each 03/26/23 17:01 Magnesium Replacement Protocol 1 Each Misc MISCELLANE DAILY PRN Per Protocol Protocol Montelukast Sodium 10 mg 03/26/23 21:00 03/26/23 23:58 Montelukast 10 Mg Tab PO Not Given HS NUBIA Naloxone HCl 0.2 mg 03/25/23 16:10 Naloxone 0.4 Mg/Ml 1 Ml Vial IV Q2M PRN Opioid Reversal Ondansetron HCl 4 mg 03/25/23 16:10 Ondansetron 4 Mg/2 Ml Vial IVP Q8HR PRN Nausea And Vomiting Pioglitazone HCl 15 mg 03/27/23 09:00 Pioglitazone 15 Mg Tab PO DAILY NUBIA Rivaroxaban 20 mg 03/26/23 09:00 03/27/23 08:13 Rivaroxaban 20 Mg Tab PO 20 mg DAILY NUBIA Administration Protocol Tizanidine HCl 4 mg 03/26/23 18:24 03/26/23 19:08 Tizanidine 4 Mg Tab PO 4 mg TID PRN Administration Muscle Spasm Objective - Vital Signs Vital signs: Vital Signs Temp 99.3 F 03/27/23 08:00 Pulse 81 03/27/23 09:15 Resp 20 03/27/23 09:00 BP 104/61 03/27/23 09:15 Pulse Ox 92 L 03/27/23 09:15 FiO2 Intake & Output 03/26/23 03/27/23 03/27/23 18:59 06:59 18:59 Intake Total 1300 1161.851 379.865 Output Total 930 575 400 Balance 370 586.851 -20.135 Weight 135.4 kg Intake: IV 1300 1050 350 Calcium Gluconate in NaCl 100 1 gm In Saline 1 100ml. bag @ 100 mls/hr IVPB ONCE ONE Rx#:[id number] Dextrose 10% in Water 1, 100 400 000 ml @ 100 mls/hr IV . [id number] NUBIA with Sodium Chloride 4Meq/ml Vial 153 .8 meq Rx#:[id number] Dextrose 10% in Water 500 1100 ml In Empty Bag 1 bag @ 100 mls/hr IV .Q5H [facility] Rx #:[id number] Dextrose 5%-0.9% NaCl 1, 450 150 000 ml @ 50 mls/hr IV . Q20H [facility] Rx#:[id number] Magnesium Sulfate-D5w Pmx 100 100 100 1 gm In Dextrose/Water 1 100ml.bag @ 100 mls/hr IVPB Q1H [facility] Rx#: [id number] Piperacillin-Tazobactam 3 100 .375 gm In Sodium Chloride 0.9% 100 ml @ 25 mls/hr IVPB Q8HR [facility] Rx# :[id number] Intake, IV Titration 111.851 29.865 Amount Norepinephrine 8 mg In 111.851 29.865 Sodium Chloride 0.9% 250 ml @ 0.03 MCG/KG/MIN 5. 635 mls/hr IV .Q24H [facility] Rx#:[id number] Output: Urine 800 575 400 Post Void Residual 130 Other: Voiding Method Urinal Urinal Urinal # Voids 1 0 1 # Bowel Movements 1 1 - Exam GENERAL: The patient is alert and oriented x3, not in any acute distress. Well developed, well nourished. HEENT: Pupils are round and equally reacting to light. EOMI. No scleral icterus. No conjunctival pallor. Normocephalic, atraumatic. No pharyngeal erythema. No thyromegaly. CARDIOVASCULAR: S1 and S2 present. No murmurs, rubs, or gallops. PULMONARY: Chest is clear to auscultation, no wheezing , no crackles. ABDOMEN: Soft, nontender, nondistended, normoactive bowel sounds. No palpable organomegaly. MUSCULOSKELETAL: No joint swelling or deformity. -EXTREMITIES: No cyanosis, clubbing, or pedal edema. Right leg significantly swollen compared to the left leg NEUROLOGICAL: Gross neurological examination did not reveal any focal deficits. SKIN: No rashes. no petechiae. - Labs CBC & Chem 7: 03/27/23 05:28 03/27/23 05:28 Labs: Abnormal Lab Results - Last 24 Hours (Table) 03/26/23 03/26/23 03/26/23 Range/Units 09:43 11:16 11:32 WBC (3.8-10.6) k/uL RBC (4.30-5.90) m/uL Hgb (13.0-17.5) gm/dL Hct (39.0-53.0) % RDW (11.5-15.5) % Neutrophils # (1.3-7.7) k/uL Lymphocytes # (1.0-4.8) k/uL Sodium (137-145) mmol/L Carbon Dioxide (22-30) mmol/L BUN (9-20) mg/dL Creatinine (0.66-1.25) mg/dL Glucose (74-99) mg/dL POC Glucose (mg/dL) 48 L 67 L 115 H (70-110) mg/dL Calcium (8.4-10.2) mg/dL Ionized Calcium Kwame (4.5-5.3) mg/dL 03/26/23 03/26/23 03/26/23 Range/Units 18:58 19:51 20:36 WBC (3.8-10.6) k/uL RBC (4.30-5.90) m/uL Hgb (13.0-17.5) gm/dL Hct (39.0-53.0) % RDW (11.5-15.5) % Neutrophils # (1.3-7.7) k/uL Lymphocytes # (1.0-4.8) k/uL Sodium (137-145) mmol/L Carbon Dioxide (22-30) mmol/L BUN (9-20) mg/dL Creatinine (0.66-1.25) mg/dL Glucose (74-99) mg/dL POC Glucose (mg/dL) 152 H 155 H 171 H (70-110) mg/dL Calcium (8.4-10.2) mg/dL Ionized Calcium Kwame (4.5-5.3) mg/dL 03/26/23 03/26/23 03/26/23 Range/Units 21:33 22:49 23:14 WBC (3.8-10.6) k/uL RBC (4.30-5.90) m/uL Hgb (13.0-17.5) gm/dL Hct (39.0-53.0) % RDW (11.5-15.5) % Neutrophils # (1.3-7.7) k/uL Lymphocytes # (1.0-4.8) k/uL Sodium (137-145) mmol/L Carbon Dioxide (22-30) mmol/L BUN (9-20) mg/dL Creatinine (0.66-1.25) mg/dL Glucose (74-99) mg/dL POC Glucose (mg/dL) 199 H 199 H 253 H (70-110) mg/dL Calcium (8.4-10.2) mg/dL Ionized Calcium Kwame (4.5-5.3) mg/dL 03/27/23 03/27/23 03/27/23 Range/Units 00:11 04:02 05:28 WBC 12.6 H (3.8-10.6) k/uL RBC 4.01 L (4.30-5.90) m/uL Hgb 11.3 L (13.0-17.5) gm/dL Hct 34.7 L (39.0-53.0) % RDW 15.9 H (11.5-15.5) % Neutrophils # 11.3 H (1.3-7.7) k/uL Lymphocytes # 0.5 L (1.0-4.8) k/uL Sodium (137-145) mmol/L Carbon Dioxide (22-30) mmol/L BUN (9-20) mg/dL Creatinine (0.66-1.25) mg/dL Glucose (74-99) mg/dL POC Glucose (mg/dL) 205 H 243 H (70-110) mg/dL Calcium (8.4-10.2) mg/dL Ionized Calcium Kwame (4.5-5.3) mg/dL 03/27/23 03/27/23 03/27/23 Range/Units 05:28 06:48 07:33 WBC (3.8-10.6) k/uL RBC (4.30-5.90) m/uL Hgb (13.0-17.5) gm/dL Hct (39.0-53.0) % RDW (11.5-15.5) % Neutrophils # (1.3-7.7) k/uL Lymphocytes # (1.0-4.8) k/uL Sodium 128 L (137-145) mmol/L Carbon Dioxide 16 L (22-30) mmol/L BUN 33 H (9-20) mg/dL Creatinine 1.39 H (0.66-1.25) mg/dL Glucose 204 H (74-99) mg/dL POC Glucose (mg/dL) 230 H (70-110) mg/dL Calcium 7.1 L (8.4-10.2) mg/dL Ionized Calcium Kwame 4.3 L (4.5-5.3) mg/dL Microbiology - Last 24 Hours (Table) 03/25/23 14:30 Blood Culture - Preliminary Blood 03/25/23 14:45 Blood Culture - Preliminary Blood 03/25/23 17:41 Gram Stain - Preliminary Ankle - Left Assessment and Plan Assessment: Acute right leg cellulitis patient confirmed to me he was taken his blood t robbieer at home for his DVT in both legs about 4-5 years ago. With possible right lower extremity enlargement Hypotension requiring pressors most likely related to septic shock Diabetes mellitus, with hypoglycemia, present on admission decreased appetite secondary to above Hypertension Hyperlipidemia History of osteoarthritis Hypothyroidism History of DVT/PE on blood thinner at home Plan: Continue with the D5 0.9 infusion and monitor glucose. Patient encouraged to eat Continue with antibiotic, currently on Zosyn. Infectious disease consult Pulmonary/critical care team consult Extensive discussion and instructions provided for the patient regarding monitor his sugar and monitoring the input and the level as well. Patient verbalized understanding and acceptance Labs and medication were reviewed.. Continue same treatment. Continue with symptomatic treatment. Resume home medication. Monitor lytes and vitals. DVT and GI prophylaxis. Further recommendations depends on the clinical course of the patient DVT prophylaxis: Xarelto GI prophylaxis: Pepcid PT/OT: Pending Prognosis is guarded
--- NOTE | 2023-03-27 09:49 | P.PN ---
Subjective Progress Note Date: 03/27/23 I am seeing this patient in new consultation today 03/26/2023 for persistent and refractory hypoglycemia. Patient is a 77-year-old male with past medical history significant for diabetes mellitus type 2, hypothyroidism, factor V Leyden mutation, right lower extremity DVT, pulmonary embolism, recurrent lower extremity cellulitis, hypertension, hyperlipidemia, severe persistent asthma, GERD. His primary care provider is Dr. Tatyana Mora. Patient came to the emergency room yesterday afternoon complaining of increased redness and swelling of bilateral legs, but his right lower extremity is worse. He says that he has noticed increased redness and drainage over the last 2 weeks. This has been accompanied with fevers and generalized malaise. The patient was admitted to the hospital on IV antibiotics in the form of Zosyn. While on the general medical floor, the patient was found to be profoundly hypoglycemic. This was refractory to multiple administrations of D50W. In fact, it looks like he's had over 8 amps of D50W over the last 12 hours. He has been started on a D10W infusion at 100 ML's per hour. Patient is currently sitting up in bed, on room air, in no acute distress. He is asymptomatic even when hypoglycemic. He has not received any long-acting insulin, metformin, or sulfonylureas while in the hospital. He normally takes metformin and Glipizide at home, but has not had a dose this admission. He has NovoLog sliding scale insulin ordered, but has not received any because of his hypoglycemia. Denies any liver disease, active cancer, alcoholism. Most recent CBC is unremarkable. BMP shows sodium 128, potassium 4.5, chloride 99, serum bicarb 22, BUN 41, creatinine 1.54, glucose 35. LFTs on arrival were nonelevated. Patient is hemodynamically stable, but warrants close monitoring and intensive care unit. 03/26/2023, the patient is being seen for a follow-up. He is awake and is communicating. He has chronic lymphedema in the right lower extremity with wound and cellulitis. The wound has been debrided and the surface is quite ulcerated and erythematous with some serous material draining from the wound surface. There is also extensive edema in the right lower extremity along with erythema. He remains on anticoagulation with that also. He has been diabetic and the patient was taking oral hypoglycemic medication. The patient developed severe hypoglycemia and for that reason he was hospitalized and brought into the intensive care unit and currently is on D10 which is running at 100 mL an hour. Most recent blood sugar is at 115. He is hemodynamically stable. He is on IV Zosyn. He is afebrile. Most recent BP is 93/66 and the patient has not re quired any pressors. Producing adequate amount of urine output. His white cell cause of 9.2 with a hemoglobin 11.7 and a platelet count of 159. Sodium level is at 128 and the potassium levels at 4.5, BUN is at 45 with a creatinine of 1.5. Noted the patient was hospitalized with an acute kidney injury and the creatinine was as high as 1.9 and the renal function continues to improve. Serum cortisol level is at 22. Lactic acid level was as high as 2.8 and dropped down to 1.9. Cultures have been sent and the results are still pending for now. 03/27/2023, the patient is sitting up on a chair and is calm and comfortable. Noted overnight, the patient became progressively more hypotensive. He was started on norepinephrine and currently the norepinephrine is O- dose of 0.04 mcg/kg/m. He was also started on midodrine. He is producing adequate amount of urine output. Creatinine is improving and current labs show a BUN of 33 with a creatinine of 1.39. Sodium is at 128 as the patient was receiving D5 water regarding progressive hypoglycemia. The WBC was a 12.6 with a hemoglobin of 11.3 and a platelet count of 199. The most recent blood sugars at 199. The repeat Accu-Cheks have shown adequate blood sugar control and based on that, the patient was taken off the D10 and she was switched to D5 which is running at 50 mL an hour. He is also tolerating his diet. No altered mentation. No chest pain. No shortness of breath. He is on room air oxygen. Cultures are still negative. Opticell applied to his right lower extremity in the legs are wrapped for now. Objective - Vital Signs Vital signs: Vital Signs Temp 99.3 F 03/27/23 08:00 Pulse 81 03/27/23 09:15 Resp 20 03/27/23 09:00 BP 104/61 03/27/23 09:15 Pulse Ox 92 L 03/27/23 09:15 FiO2 Intake & Output 03/26/23 03/27/23 03/27/23 18:59 06:59 18:59 Intake Total 1300 1161.851 379.865 Output Total 930 575 750 Balance 370 586.851 -370.135 Weight 135.4 kg Intake: IV 1300 1050 350 Calcium Gluconate in NaCl 100 1 gm In Saline 1 100ml. bag @ 100 mls/hr IVPB ONCE ONE Rx#:[id number] Dextrose 10% in Water 1, 100 400 000 ml @ 100 mls/hr IV . [id number] NUBIA with Sodium Chloride 4Meq/ml Vial 153 .8 meq Rx#:[id number] Dextrose 10% in Water 500 1100 ml In Empty Bag 1 bag @ 100 mls/hr IV .Q5H N[facility] Rx #:[id number] Dextrose 5%-0.9% NaCl 1, 450 150 000 ml @ 50 mls/hr IV . Q20H N[facility] Rx#:[id number] Magnesium Sulfate-D5w Pmx 100 100 100 1 gm In Dextrose/Water 1 100ml.bag @ 100 mls/hr IVPB Q1H N[facility] Rx#: [id number] Piperacillin-Tazobactam 3 100 .375 gm In Sodium Chloride 0.9% 100 ml @ 25 mls/hr IVPB Q8HR [facility] Rx# :[id number] Intake, IV Titration 111.851 29.865 Amount Norepinephrine 8 mg In 111.851 29.865 Sodium Chloride 0.9% 250 ml @ 0.03 MCG/KG/MIN 5. 635 mls/hr IV .Q24H N[facility] Rx#:[id number] Output: Urine 800 575 750 Post Void Residual 130 Other: Voiding Method Urinal Urinal Urinal # Voids 1 0 # Bowel Movements 1 1 - Exam GENERAL EXAM: Alert, 77-year-old white male , comfortable in no apparent distress. HEAD: Normocephalic and atraumatic EYES: Normal reaction of pupils, equal size. NOSE: Clear with pink turbinates. THROAT: No erythema or exudates. NECK: No masses, no JVD. CHEST: No chest wall deformity. LUNGS: Equal air entry with bibasilar inspiratory crackles. No wheezes, rhonchi, focal dullness. On room air. No conversational dyspnea or accessory muscle use.. CVS: S1 and S2 normal with no audible murmur, regular rhythm. No extra heart sounds ABDOMEN: Obese abdomen, No hepatosplenomegaly, active bowel sounds, no guarding or rigidity. SPINE: No scoliosis or deformity SKIN: Bilateral lower extremity erythema with purulent drainage. CENTRAL NERVOUS SYSTEM: No focal deficits, tone is normal in all 4 extremities. EXTREMITIES: Right lower extremity is grossly enlarged and erythemic. Left lower extremity is also edematous, with purulent drainage, and wrapped in Kerlix. Peripheral pulses are intact. - Labs CBC & Chem 7: 03/27/23 05:28 03/27/23 05:28 Labs: Abnormal Lab Results - Last 24 Hours (Table) 03/26/23 03/26/23 03/26/23 Range/Units 09:43 11:16 11:32 WBC (3.8-10.6) k/uL RBC (4.30-5.90) m/uL Hgb (13.0-17.5) gm/dL Hct (39.0-53.0) % RDW (11.5-15.5) % Neutrophils # (1.3-7.7) k/uL Lymphocytes # (1.0-4.8) k/uL Sodium (137-145) mmol/L Carbon Dioxide (22-30) mmol/L BUN (9-20) mg/dL Creatinine (0.66-1.25) mg/dL Glucose (74-99) mg/dL POC Glucose (mg/dL) 48 L 67 L 115 H (70-110) mg/dL Calcium (8.4-10.2) mg/dL Ionized Calcium Kwame (4.5-5.3) mg/dL 03/26/23 03/26/23 03/26/23 Range/Units 18:58 19:51 20:36 WBC (3.8-10.6) k/uL RBC (4.30-5.90) m/uL Hgb (13.0-17.5) gm/dL Hct (39.0-53.0) % RDW (11.5-15.5) % Neutrophils # (1.3-7.7) k/uL Lymphocytes # (1.0-4.8) k/uL Sodium (137-145) mmol/L Carbon Dioxide (22-30) mmol/L BUN (9-20) mg/dL Creatinine (0.66-1.25) mg/dL Glucose (74-99) mg/dL POC Glucose (mg/dL) 152 H 155 H 171 H (70-110) mg/dL Calcium (8.4-10.2) mg/dL Ionized Calcium Kwame (4.5-5.3) mg/dL 03/26/23 03/26/23 03/26/23 Range/Units 21:33 22:49 23:14 WBC (3.8-10.6) k/uL RBC (4.30-5.90) m/uL Hgb (13.0-17.5) gm/dL Hct (39.0-53.0) % RDW (11.5-15.5) % Neutrophils # (1.3-7.7) k/uL Lymphocytes # (1.0-4.8) k/uL Sodium (137-145) mmol/L Carbon Dioxide (22-30) mmol/L BUN (9-20) mg/dL Creatinine (0.66-1.25) mg/dL Glucose (74-99) mg/dL POC Glucose (mg/dL) 199 H 199 H 253 H (70-110) mg/dL Calcium (8.4-10.2) mg/dL Ionized Calcium Kwame (4.5-5.3) mg/dL 03/27/23 03/27/23 03/27/23 Range/Units 00:11 04:02 05:28 WBC 12.6 H (3.8-10.6) k/uL RBC 4.01 L (4.30-5.90) m/uL Hgb 11.3 L (13.0-17.5) gm/dL Hct 34.7 L (39.0-53.0) % RDW 15.9 H (11.5-15.5) % Neutrophils # 11.3 H (1.3-7.7) k/uL Lymphocytes # 0.5 L (1.0-4.8) k/uL Sodium (137-145) mmol/L Carbon Dioxide (22-30) mmol/L BUN (9-20) mg/dL Creatinine (0.66-1.25) mg/dL Glucose (74-99) mg/dL POC Glucose (mg/dL) 205 H 243 H (70-110) mg/dL Calcium (8.4-10.2) mg/dL Ionized Calcium Kwame (4.5-5.3) mg/dL 03/27/23 03/27/23 03/27/23 Range/Units 05:28 06:48 07:33 WBC (3.8-10.6) k/uL RBC (4.30-5.90) m/uL Hgb (13.0-17.5) gm/dL Hct (39.0-53.0) % RDW (11.5-15.5) % Neutrophils # (1.3-7.7) k/uL Lymphocytes # (1.0-4.8) k/uL Sodium 128 L (137-145) mmol/L Carbon Dioxide 16 L (22-30) mmol/L BUN 33 H (9-20) mg/dL Creatinine 1.39 H (0.66-1.25) mg/dL Glucose 204 H (74-99) mg/dL POC Glucose (mg/dL) 230 H (70-110) mg/dL Calcium 7.1 L (8.4-10.2) mg/dL Ionized Calcium Kwame 4.3 L (4.5-5.3) mg/dL Microbiology - Last 24 Hours (Table) 03/25/23 14:30 Blood Culture - Preliminary Blood 03/25/23 14:45 Blood Culture - Preliminary Blood 03/25/23 17:41 Gram Stain - Preliminary Ankle - Left Assessment and Plan Assessment: Hypoglycemia refractory to glucose replacement, patient has received a total of 8 ampules of D50W so far, and D10W at 100 ml/hr was started. Patient does take metformin and a sulfonylurea on outpatient basis. No other etiology identified. Bilateral lower extremity cellulitis Right lower extremity lymphedema History of right lower extremity DVT and pulmonary embolism anticoagulated on Xarelto History of factor V Leyden mutation Acute kidney injury, improving Mild hyponatremia Diabetes mellitus type 2, [id number], normally managed with metformin on an outpatient basis Essential hypertension Hyperlipidemia Severe persistent asthma, stable Plan: Patient will be transferred to intensive care unit for closer glucose control Continue D10W at 100 ML's per hour, supplement with when necessary D50W amps IVP. May need insertion of central line and D50W infusion Hold anti-hyperglycemics Check TSH and cortisol levels LFTs are non-elevated Continue home Symbicort inhaler with when necessary Ventolin inhaler Antibiotics per infectious disease We will continue to follow, and make recommendations while in the ICU I have personally seen and examined the patient, performed the documentation and the assessment and plan as written. Number of minutes spent on the visit:20 Joint evaluation that was done along with the nurse practitioner. Continue D10W at 100 ML's per hour Monitor the blood sugar No need for pressors Continue IV Zosyn Obtain Doppler of the right lower extremity Hold anti-hyperglycemics Check TSH and cortisol levels, levels are adequate at this point in time LFTs are non-elevated Continue home Symbicort inhaler with when necessary Ventolin inhaler Antibiotics per infectious disease We will continue to follow, and make recommendations while in the ICU Evaluation was done in more than 30 minutes. Plan: Hypoglycemia refractory to glucose replacement, the patient was initially treated with D10, switched to D5 and current blood sugars at adequate and the patient is tolerating diet off hypoglycemic medication Bilateral lower extremity cellulitis, worse in the right lower extremity and the patient has a superficial wound that has been debrided and there is a wound covering the anterior aspect of the right lower extremity was erythematous and draining minimally, nonpurulent material. 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 He'll be kept in the intensive care unit as long as the patient is still pressor dependent. We'll wean off the pressors and will monitor.
--- NOTE | 2023-03-27 10:49 | CONS ---
CONSULTATION CHIEF COMPLAINT: Cardiac arrhythmia. HISTORY OF PRESENT ILLNESS: This is a 77-year-old gentleman with history of diabetes, factor 5 Leiden mutation, history of DVT, recurrent pulmonary embolism, lower extremity cellulitis, hypertension, dyslipidemia, asthma, GERD, presented to hospital complaining of redness and swelling involving both lower extremities. He was admitted with a diagnosis of cellulitis and is currently receiving antibiotics. The patient was on the floor and developed profound for which he was transferred and admitted to ICU. I have been consulted because of bradycardia. The patient is in sinus rhythm with PACs, junctional escape rhythm, and episodes of Wenckebach phenomenon. There is no evidence of high-grade AV block. There is no evidence of symptomatic bradycardia. The patient was on Cardizem CD prior to coming in, but this is currently on hold. He is also hypotensive, currently on Levophed for the same. His potassium is not particularly elevated. Creatinine is around 1.5. The patient has a history of valvular heart disease and I will obtain a 2D echo to follow the aortic stenosis. Continue to watch him on telemetry and if he develops any episodes of high-grade AV block, consider a pacemaker. He is on Xarelto for anticoagulation. PAST MEDICAL HISTORY: Significant for recurrent DVT and pulmonary embolism, recurrent episodes of cellulitis, diabetes, and dyslipidemia. CURRENT MEDICATIONS: Include: 1. Glucophage. 2. Glucotrol. 3. Cardizem CD. 4. Xarelto. 5. Actos. 6. Prilosec. 7. Singulair. 8. Synthroid. 9. [place]. 10.Lasix. 11.Lipitor. 12.Ventolin. ALLERGIES: There are multiple allergies. They are charted and I reviewed them. FAMILY HISTORY: Negative for premature coronary artery disease. SOCIAL HISTORY: Negative for smoking, EtOH abuse, or drug abuse. REVIEW OF SYSTEMS: A 14 out of 14 review of systems has been performed. Pertinents are as documented. PHYSICAL EXAMINATION: GENERAL: On exam, comfortable at rest. VITAL SIGNS: Stable. NECK: There is no jugular venous distention. Carotid upstroke is normal. There is no bruit. CHEST: Diminished air entry at the bases. HEART: First and second heart sounds. A grade 4/6 ejection systolic murmur in the aortic area. ABDOMEN: Soft. EXTREMITIES: Exam of extremities reveals bilateral pitting edema. LABORATORY DATA: Labs show a hemoglobin of 11.3, platelet count is 199, potassium is 4.3, BUN is 33, creatinine is 1.3. EKG shows sinus rhythm with PACs, junctional escape beats. Rhythm strips show episodes of Wenckebach phenomenon. There is no evidence of high-grade AV block. ASSESSMENT: Asymptomatic bradycardia. PLAN: Stop the Cardizem. I will obtain a 2D echo. Continue to watch him on telemetry. Further recommendations to follow. MMODL / MEERAN: [id number] /
[2023-03-27 11:09] LABS: Glucose,Whole Blood 198 mg/dL (70-110)
[2023-03-27] MEDS ORDERED: SODIUM CHLORIDE TAB 1 GM TAB PO STA (12:00)
--- NOTE | 2023-03-27 12:00 | P.PN ---
Subjective Patient is seen for follow-up for acute kidney injury. Renal function has been in the hypoglycemic for which he was maintained on D10. Blood sugars have improved and D10 is now discontinued. Serum creatinine down to 1.39 today. Urine output at 1.3 to's for 24 hours. Levo fed being weaned off. Objective - Vital Signs Vital signs: Vital Signs Temp 99.3 F 03/27/23 08:00 Pulse 68 03/27/23 11:41 Resp 20 03/27/23 11:00 BP 110/60 03/27/23 11:00 Pulse Ox 95 03/27/23 11:00 FiO2 Intake & Output 03/26/23 03/27/23 03/27/23 18:59 06:59 18:59 Intake Total 1300 1161.851 448.192 Output Total 691 094 5826 Balance 370 586.851 -651.808 Weight 135.4 kg Intake: IV 1300 1050 410 0.9 60 Calcium Gluconate in NaCl 100 1 gm In Saline 1 100ml. bag @ 100 mls/hr IVPB ONCE ONE Rx#:[id number] Dextrose 10% in Water 1, 100 400 000 ml @ 100 mls/hr IV . [id number] NUBIA with Sodium Chloride 4Meq/ml Vial 153 .8 meq Rx#:[id number] Dextrose 10% in Water 500 1100 ml In Empty Bag 1 bag @ 100 mls/hr IV .Q5H NUBIA Rx #:[id number] Dextrose 5%-0.9% NaCl 1, 450 150 000 ml @ 50 mls/hr IV . Q20H NUBIA Rx#:[id number] Magnesium Sulfate-D5w Pmx 100 100 100 1 gm In Dextrose/Water 1 100ml.bag @ 100 mls/hr IVPB Q1H N[facility] Rx#: [id number] Piperacillin-Tazobactam 3 100 .375 gm In Sodium Chloride 0.9% 100 ml @ 25 mls/hr IVPB Q8HR [facility] Rx# :[id number] Intake, IV Titration 111.851 38.192 Amount Norepinephrine 8 mg In 111.851 38.192 Sodium Chloride 0.9% 250 ml @ 0.03 MCG/KG/MIN 5. 635 mls/hr IV .Q24H NUBIA Rx#:[id number] Output: Urine 443 410 8093 Post Void Residual 130 Other: Voiding Method Urinal Urinal Urinal # Voids 1 0 # Bowel Movements 1 1 - Exam Patient is awake, comfortable, in no acute distress Examination of the heart S1 and S2 Examination of the lungs bilateral breath sounds are heard Abdomen is soft obese nontender Examination lower extremity shows chronic skin changes bilaterally with erythema noted in the right lower extremity. Both legs are wrapped [employer] exam grossly intact - Labs CBC & Chem 7: 03/27/23 05:28 03/27/23 05:28 Labs: Abnormal Lab Results - Last 24 Hours (Table) 03/26/23 03/26/23 03/26/23 Range/Units 18:58 19:51 20:36 WBC (3.8-10.6) k/uL RBC (4.30-5.90) m/uL Hgb (13.0-17.5) gm/dL Hct (39.0-53.0) % RDW (11.5-15.5) % Neutrophils # (1.3-7.7) k/uL Lymphocytes # (1.0-4.8) k/uL Sodium (137-145) mmol/L Carbon Dioxide (22-30) mmol/L BUN (9-20) mg/dL Creatinine (0.66-1.25) mg/dL Glucose (74-99) mg/dL POC Glucose (mg/dL) 152 H 155 H 171 H (70-110) mg/dL Calcium (8.4-10.2) mg/dL Ionized Calcium Kwame (4.5-5.3) mg/dL 03/26/23 03/26/23 03/26/23 Range/Units 21:33 22:49 23:14 WBC (3.8-10.6) k/uL RBC (4.30-5.90) m/uL Hgb (13.0-17.5) gm/dL Hct (39.0-53.0) % RDW (11.5-15.5) % Neutrophils # (1.3-7.7) k/uL Lymphocytes # (1.0-4.8) k/uL Sodium (137-145) mmol/L Carbon Dioxide (22-30) mmol/L BUN (9-20) mg/dL Creatinine (0.66-1.25) mg/dL Glucose (74-99) mg/dL POC Glucose (mg/dL) 199 H 199 H 253 H (70-110) mg/dL Calcium (8.4-10.2) mg/dL Ionized Calcium Kwame (4.5-5.3) mg/dL 03/27/23 03/27/23 03/27/23 Range/Units 00:11 04:02 05:28 WBC 12.6 H (3.8-10.6) k/uL RBC 4.01 L (4.30-5.90) m/uL Hgb 11.3 L (13.0-17.5) gm/dL Hct 34.7 L (39.0-53.0) % RDW 15.9 H (11.5-15.5) % Neutrophils # 11.3 H (1.3-7.7) k/uL Lymphocytes # 0.5 L (1.0-4.8) k/uL Sodium (137-145) mmol/L Carbon Dioxide (22-30) mmol/L BUN (9-20) mg/dL Creatinine (0.66-1.25) mg/dL Glucose (74-99) mg/dL POC Glucose (mg/dL) 205 H 243 H (70-110) mg/dL Calcium (8.4-10.2) mg/dL Ionized Calcium Kwame (4.5-5.3) mg/dL 03/27/23 03/27/23 03/27/23 Range/Units 05:28 06:48 07:33 WBC (3.8-10.6) k/uL RBC (4.30-5.90) m/uL Hgb (13.0-17.5) gm/dL Hct (39.0-53.0) % RDW (11.5-15.5) % Neutrophils # (1.3-7.7) k/uL Lymphocytes # (1.0-4.8) k/uL Sodium 128 L (137-145) mmol/L Carbon Dioxide 16 L (22-30) mmol/L BUN 33 H (9-20) mg/dL Creatinine 1.39 H (0.66-1.25) mg/dL Glucose 204 H (74-99) mg/dL POC Glucose (mg/dL) 230 H (70-110) mg/dL Calcium 7.1 L (8.4-10.2) mg/dL Ionized Calcium Kwame 4.3 L (4.5-5.3) mg/dL 03/27/23 Range/Units 11:07 WBC (3.8-10.6) k/uL RBC (4.30-5.90) m/uL Hgb (13.0-17.5) gm/dL Hct (39.0-53.0) % RDW (11.5-15.5) % Neutrophils # (1.3-7.7) k/uL Lymphocytes # (1.0-4.8) k/uL Sodium (137-145) mmol/L Carbon Dioxide (22-30) mmol/L BUN (9-20) mg/dL Creatinine (0.66-1.25) mg/dL Glucose (74-99) mg/dL POC Glucose (mg/dL) 198 H (70-110) mg/dL Calcium (8.4-10.2) mg/dL Ionized Calcium Kwame (4.5-5.3) mg/dL Microbiology - Last 24 Hours (Table) 03/25/23 14:30 Blood Culture - Preliminary Blood 03/25/23 14:45 Blood Culture - Preliminary Blood 03/25/23 17:41 Gram Stain - Preliminary Ankle - Left Assessment and Plan Assessment: 1. Acute kidney injury ATN nonoliguric secondary to hypotension and underlying infection. Improving. Status post IV fluids 2. Hyponatremia secondary to hypotonic fluid 3. Persistent hypoglycemia, improved, status post D10.. 4. Bilateral lower extremity cellulitis, maintained on antibiotics 5. Right lower extremity DVT, chronic with history of PE maintained on xarelto Plan: Continue off of IV fluid was Sodium chloride tabs by mouth 1 Repeat labs in a.m.
--- NOTE | 2023-03-27 13:09 | CA ---
Transthoracic Echo Report Name: Antony De La Cruz Age: 77 Gender: M : 1945 Exam Date: 03/27/2023 10:03 Exam Location: [facility] Ht (in): 75 Wt (lb): 298 Ordering Physician: Nany Juan Attending/Referring Phys: [id number], Yess[employer] Operator Patrica Rodriguez RDCS Procedure CPT: Indications: LVF Cardiac Hx: PACEMAKER Technical Quality: Fair Contrast 1: Total Dose (mL): Contrast 2: Total Dose (mL): MEASUREMENTS (Male / Female) Normal Values 2D ECHO LV Diastolic Diameter PLAX 6.1 cm 4.2 - 5.9 / 3.9 - 5.3 cm LV Systolic Diameter PLAX 4.7 cm IVS Diastolic Thickness 1.2 cm 0.6 - 1.0 / 0.6 - 0.9 cm LVPW Diastolic Thickness 1.3 cm 0.6 - 1.0 / 0.6 - 0.9 cm LV Relative Wall Thickness 0.4 RV Internal Dim ED PLAX 3.5 cm LA Systolic Diameter LX 4.5 cm 3.0 - 4.0 / 2.7 - 3.8 cm LV Diastolic Volume MOD 4C 110.8 cm??? LV Systolic Volume MOD 4C 59.7 cm??? LV Ejection Fraction MOD 4C 46.1 % LV Cardiac Index MOD 4C 1220.7 cm???/min???m??? LV Diastolic Length 4C 8.3 cm LV Systolic Length 4C 7.2 cm LV Diastolic Volume MOD 2C 118.8 cm??? LV Systolic Volume MOD 2C 74.7 cm??? LV Ejection Fraction MOD 2C 37.1 % LV Cardiac Index MOD 2C 1052.9 cm???/min???m??? LV Diastolic Length 2C 8.8 cm LV Systolic Length 2C 7.7 cm LA Volume 93.6 cm??? 18 - 58 / 22 - 52 cm??? M-MODE Aortic Root Diameter MM 3.5 cm DOPPLER AV Peak Velocity 440.9 cm/s AV Peak Gradient 77.8 mmHg AV Mean Velocity 305.7 cm/s AV Mean Gradient 42.5 mmHg AV Velocity Time Integral 99.3 cm AI Peak Velocity 339.5 cm/s AI Peak Gradient 46.1 mmHg AI Pressure Half Time 486.4 ms MV Peak Velocity 178.0 cm/s MV Peak Gradient 12.7 mmHg MV Mean Velocity 78.9 cm/s MV Mean Gradient 3.1 mmHg MV Velocity Time Integral 48.4 cm MV Area PHT 3.4 cm??? MV Deceleration Time 238.5 ms TR Peak Velocity 306.1 cm/s TR Peak Gradient 37.5 mmHg Right Ventricular Systolic Press 41.0 mmHg PV Peak Velocity 299.4 cm/s PV Peak Gradient 35.9 mmHg FINDINGS Left Ventricle Left ventricular ejection fraction is estimated at 40-45%. Mildly increased septal wall thickness. Mildly increased left ventricular diastolic diameter. Right Ventricle Mild right ventricular dilatation. Mild pulmonary hypertension. Right Atrium Normal right atrial size. Left Atrium Mildly increased left atrial diameter. Severely increased left atrial volume. Mildly increased left atrial area. Mitral Valve Mitral valve thickened. Mild mitral annular calcification. Trace to mild mitral regurgitation. Aortic Valve Severe aortic valve sclerosis. Severe aortic stenosis with a peak velocity of 4.4 m/s, peak gradient 78 mmHg, mean gradient 43 mmHg. Mild aortic regurgitation. Tricuspid Valve Structurally normal tricuspid valve. Mild tricuspid regurgitation. Pulmonic Valve Valvular pulmonic stenosis with max pressure gradient of 35 mm/Hg Pericardium Normal pericardium. No pericardial effusion. Aorta Normal size aortic root . Descending AO moderatly enlarged 41 mm CONCLUSIONS Left ventricular ejection fraction 40-45% Mild increased left ventricular wall thickness Mild to moderately dilated left atrium Severe aortic stenosis Mild aortic regurgitation Previewed by: Dr. Drew Waddell DO (Electronically Signed) Final Date: 27 March 2023 13:07
--- NOTE | 2023-03-27 14:42 | P.PN ---
Subjective Progress Note Date: 03/27/23 Principal diagnosis: Right lower extremity wound and cellulitis Patient is a 77-year-old male with a past medical history negative for hypertension hyperlipidemia diabetes mellitus PE patient also have a lower extremity venous stasis ulcer and history of recurrent cellulitis patient presenting to the hospital concerning for right leg infection patient noticed to have increasing redness to discomfort and drainage to the right lower extremity, admitted to the ICU because of hypoglycemia On today's evaluation that is 03/27/2023, the patient is afebrile patient is br eathing comfortably on room air denies any chest pain shortness of breath or cough no abdominal pain or any worsening pain to the right lower extremity Patient did have white count of 12.6, the patient creatinine is 1.39 blood and local cultures currently pending Objective - Vital Signs Vital signs: Vital Signs Temp 98.4 F 03/27/23 12:00 Pulse 84 03/27/23 12:45 Resp 7 L 03/27/23 12:45 BP 98/62 03/27/23 12:45 Pulse Ox 95 03/27/23 12:45 FiO2 Intake & Output 03/26/23 03/27/23 03/27/23 18:59 06:59 18:59 Intake Total 1300 1161.851 448.348 Output Total 581 313 7716 Balance 370 586.851 -651.652 Weight 135.4 kg Intake: IV 1300 1050 410 0.9 60 Calcium Gluconate in NaCl 100 1 gm In Saline 1 100ml. bag @ 100 mls/hr IVPB ONCE ONE Rx#:[id number] Dextrose 10% in Water 1, 100 400 000 ml @ 100 mls/hr IV . [id number] [facility] with Sodium Chloride 4Meq/ml Vial 153 .8 meq Rx#:[id number] Dextrose 10% in Water 500 1100 ml In Empty Bag 1 bag @ 100 mls/hr IV .Q5H [facility] Rx #:[id number] Dextrose 5%-0.9% NaCl 1, 450 150 000 ml @ 50 mls/hr IV . Q20H [facility] Rx#:[id number] Magnesium Sulfate-D5w Pmx 100 100 100 1 gm In Dextrose/Water 1 100ml.bag @ 100 mls/hr IVPB Q1H [facility] Rx#: [id number] Piperacillin-Tazobactam 3 100 .375 gm In Sodium Chloride 0.9% 100 ml @ 25 mls/hr IVPB Q8HR [facility] Rx# :[id number] Intake, IV Titration 111.851 38.348 Amount Norepinephrine 8 mg In 111.851 38.348 Sodium Chloride 0.9% 250 ml @ 0.03 MCG/KG/MIN 5. 635 mls/hr IV .Q24H [facility] Rx#:[id number] Output: Urine 115 272 9786 Post Void Residual 130 Other: Voiding Method Urinal Urinal Urinal # Voids 1 0 # Bowel Movements 1 1 - Exam GENERAL DESCRIPTION: An elderly male lying in bed in no distress RESPIRATORY SYSTEM: Unlabored breathing , decreased breath sounds at bases HEART: S1 S2 regular rate and rhythm , ABDOMEN: Soft , no tenderness EXTREMITIES: Right lower extremity wound and currently dressed no drainage on the dressing - Labs CBC & Chem 7: 03/27/23 05:28 03/27/23 05:28 Labs: Abnormal Lab Results - Last 24 Hours (Table) 03/26/23 03/26/23 03/26/23 Range/Units 18:58 19:51 20:36 WBC (3.8-10.6) k/uL RBC (4.30-5.90) m/uL Hgb (13.0-17.5) gm/dL Hct (39.0-53.0) % RDW (11.5-15.5) % Neutrophils # (1.3-7.7) k/uL Lymphocytes # (1.0-4.8) k/uL Sodium (137-145) mmol/L Carbon Dioxide (22-30) mmol/L BUN (9-20) mg/dL Creatinine (0.66-1.25) mg/dL Glucose (74-99) mg/dL POC Glucose (mg/dL) 152 H 155 H 171 H (70-110) mg/dL Calcium (8.4-10.2) mg/dL Ionized Calcium Kwame (4.5-5.3) mg/dL 03/26/23 03/26/23 03/26/23 Range/Units 21:33 22:49 23:14 WBC (3.8-10.6) k/uL RBC (4.30-5.90) m/uL Hgb (13.0-17.5) gm/dL Hct (39.0-53.0) % RDW (11.5-15.5) % Neutrophils # (1.3-7.7) k/uL Lymphocytes # (1.0-4.8) k/uL Sodium (137-145) mmol/L Carbon Dioxide (22-30) mmol/L BUN (9-20) mg/dL Creatinine (0.66-1.25) mg/dL Glucose (74-99) mg/dL POC Glucose (mg/dL) 199 H 199 H 253 H (70-110) mg/dL Calcium (8.4-10.2) mg/dL Ionized Calcium Kwame (4.5-5.3) mg/dL 03/27/23 03/27/23 03/27/23 Range/Units 00:11 04:02 05:28 WBC 12.6 H (3.8-10.6) k/uL RBC 4.01 L (4.30-5.90) m/uL Hgb 11.3 L (13.0-17.5) gm/dL Hct 34.7 L (39.0-53.0) % RDW 15.9 H (11.5-15.5) % Neutrophils # 11.3 H (1.3-7.7) k/uL Lymphocytes # 0.5 L (1.0-4.8) k/uL Sodium (137-145) mmol/L Carbon Dioxide (22-30) mmol/L BUN (9-20) mg/dL Creatinine (0.66-1.25) mg/dL Glucose (74-99) mg/dL POC Glucose (mg/dL) 205 H 243 H (70-110) mg/dL Calcium (8.4-10.2) mg/dL Ionized Calcium Kwame (4.5-5.3) mg/dL 03/27/23 03/27/23 03/27/23 Range/Units 05:28 06:48 07:33 WBC (3.8-10.6) k/uL RBC (4.30-5.90) m/uL Hgb (13.0-17.5) gm/dL Hct (39.0-53.0) % RDW (11.5-15.5) % Neutrophils # (1.3-7.7) k/uL Lymphocytes # (1.0-4.8) k/uL Sodium 128 L (137-145) mmol/L Carbon Dioxide 16 L (22-30) mmol/L BUN 33 H (9-20) mg/dL Creatinine 1.39 H (0.66-1.25) mg/dL Glucose 204 H (74-99) mg/dL POC Glucose (mg/dL) 230 H (70-110) mg/dL Calcium 7.1 L (8.4-10.2) mg/dL Ionized Calcium Kwame 4.3 L (4.5-5.3) mg/dL 03/27/23 Range/Units 11:07 WBC (3.8-10.6) k/uL RBC (4.30-5.90) m/uL Hgb (13.0-17.5) gm/dL Hct (39.0-53.0) % RDW (11.5-15.5) % Neutrophils # (1.3-7.7) k/uL Lymphocytes # (1.0-4.8) k/uL Sodium (137-145) mmol/L Carbon Dioxide (22-30) mmol/L BUN (9-20) mg/dL Creatinine (0.66-1.25) mg/dL Glucose (74-99) mg/dL POC Glucose (mg/dL) 198 H (70-110) mg/dL Calcium (8.4-10.2) mg/dL Ionized Calcium Kwame (4.5-5.3) mg/dL Microbiology - Last 24 Hours (Table) 03/25/23 14:30 Blood Culture - Preliminary Blood 03/25/23 14:45 Blood Culture - Preliminary Blood 03/25/23 17:41 Gram Stain - Preliminary Ankle - Left Assessment and Plan (1) Cellulitis of right leg Current Visit: Yes Status: Acute Code(s): L03.115 - CELLULITIS OF RIGHT LOWER LIMB SNOMED Code(s): 535003582 (2) Chronic cutaneous venous stasis ulcer Current Visit: No Status: Acute Code(s): I83.009 - VARICOSE VEINS OF UNSP LOWER EXTREMITY W ULCER OF UNSP SITE; L97.909 - NON-PRS CHRONIC ULC UNSP PRT OF UNSP LOW LEG W UNSP SEVERITY SNOMED Code(s): 60064098 Plan: 1patient was in the hospital with increasing pain swelling redness of the right lower extremity in this patient who do have a history of venous stasis ulcer to right lower extremity and concerning for cellulitis likely from gram-positive skin noe 2Patient to continue withvancomycin pharmacy to dose with a target trough of 15 while watching kidney function and Vanco trough closely while waiting for the cultures to finalize 3local wound care with Aquacel silver dressing and mild compression dressing. Dictation was produced using [employer] dictation software. please excuse any grammatical, word or spelling errors. Time with Patient: Less than 30
[2023-03-27 16:06] LABS: Glucose,Whole Blood 187 mg/dL (70-110)
[2023-03-27] MEDS: tiZANidine 4 MG TAB PO PRN (16:44)
[2023-03-27 20:08] LABS: Glucose,Whole Blood 188 mg/dL (70-110)
[2023-03-27] MEDS: MONTELUKAST 10 MG TAB PO SCH (20:09)
[2023-03-27] MEDS: NOREPINEPHRINE 8 MG in SODIUM CHLORIDE 0.9% 250 ML IV SCH (21:24)
[2023-03-28] MEDS: PIPERACILLIN-TAZOBACTAM 3.375 GM in SODIUM CHLORIDE 0.9% 100 ML IVPB SCH ×4 (01:05→23:43)
[2023-03-28 02:03] LABS: Glucose,Whole Blood 195 mg/dL (70-110)
[2023-03-28] MEDS: INSULIN ASPART (NovoLOG) 100 UNIT/ML VIAL SQ SCH ×5 (02:08→20:22)
[2023-03-28] MEDS: HYDROcodone/APAP 5-325MG 1 EACH TAB PO PRN ×3 (03:19→20:31)
[2023-03-28 04:44] LABS: Anisocytosis Slight; Basophils % (A) 0 %; Eosinophils # (A) 0.3 k/uL (0-0.7); Eosinophils % (A) 2 %; HCT 32.8 % (39.0-53.0); HGB 10.3 gm/dL (13.0-17.5); Hypochromasia Slight; Lymphocytes # (A) 0.6 k/uL (1.0-4.8); Lymphocytes % (A) 5 %; MCH 27.1 pg (25.0-35.0); MCHC 31.5 g/dL (31.0-37.0); MCV 86.1 fL (80.0-100.0); Mean Platelet Volume 8.3; Monocytes # (A) 0.9 k/uL (0-1.0); Monocytes % (A) 8 %; Neutrophils # (A) 8.9 k/uL (1.3-7.7); Neutrophils % (A) 83 %; Platelet Count 188 k/uL (150-450); RBC 3.81 m/uL (4.30-5.90); WBC 10.8 k/uL (3.8-10.6)
[2023-03-28] MEDS: ALBUTEROL NEBULIZED 2.5 MG/3 ML INHALATION SCH ×6 (04:48→19:56)
[2023-03-28 04:54] LABS: African American GFR (CKD) 56 (>60 ml/min/1.73 sqM); Anion Gap 5 mmol/L; Blood Urea Nitrogen 31 mg/dL (9-20); Calcium 7.3 mg/dL (8.4-10.2); Carbon Dioxide 21 mmol/L (22-30); Chloride 104 mmol/L (98-107); Glucose 130 mg/dL (74-99); Magnesium 2.1 mg/dL (1.6-2.3); Non-African American GFR(CKD) 49 (>60 ml/min/1.73 sqM); Potassium 3.8 mmol/L (3.5-5.1); Sodium 130 mmol/L (137-145)
[2023-03-28] MEDS ORDERED: POTASSIUM CHLORIDE ER 20 MEQ TAB.ER PO SCH (06:00)
[2023-03-28] MEDS: LEVOTHYROXINE 100 MCG TAB PO SCH (06:16)
[2023-03-28] MEDS: MIDODRINE 5 MG TAB PO SCH ×3 (06:16→17:21)
[2023-03-28 06:24] LABS: Glucose,Whole Blood 152 mg/dL (70-110)
[2023-03-28] MEDS: SYMBICORT 80-4.5 MCG INHALER INHALATION SCH ×2 (08:23→19:56)
[2023-03-28] MEDS: RIVAROXABAN 20 MG TAB PO SCH (08:55)
[2023-03-28] MEDS: FAMOTIDINE 20 MG/2 ML VIAL IV SCH ×2 (08:55→20:32)
[2023-03-28] MEDS: ATORVASTATIN 10 MG TAB PO SCH (08:55)
--- NOTE | 2023-03-28 10:38 | P.PN ---
Subjective Progress Note Date: 03/28/23 I am seeing this patient in new consultation today 03/26/2023 for persistent and refractory hypoglycemia. Patient is a 77-year-old male with past medical history significant for diabetes mellitus type 2, hypothyroidism, factor V Leyden mutation, right lower extremity DVT, pulmonary embolism, recurrent lower extremity cellulitis, hypertension, hyperlipidemia, severe persistent asthma, GERD. His primary care provider is Dr. Tatyana Mora. Patient came to the emergency room yesterday afternoon complaining of increased redness and swelling of bilateral legs, but his right lower extremity is worse. He says that he has noticed increased redness and drainage over the last 2 weeks. This has been accompanied with fevers and generalized malaise. The patient was admitted to the hospital on IV antibiotics in the form of Zosyn. While on the general medical floor, the patient was found to be profoundly hypoglycemic. This was refractory to multiple administrations of D50W. In fact, it looks like he's had over 8 amps of D50W over the last 12 hours. He has been started on a D10W infusion at 100 ML's per hour. Patient is currently sitting up in bed, on room air, in no acute distress. He is asymptomatic even when hypoglycemic. He has not received any long-acting insulin, metformin, or sulfonylureas while in the hospital. He normally takes metformin and Glipizide at home, but has not had a dose this admission. He has NovoLog sliding scale insulin ordered, but has not received any because of his hypoglycemia. Denies any liver disease, active cancer, alcoholism. Most recent CBC is unremarkable. BMP shows sodium 128, potassium 4.5, chloride 99, serum bicarb 22, BUN 41, creatinine 1.54, glucose 35. LFTs on arrival were nonelevated. Patient is hemodynamically stable, but warrants close monitoring and intensive care unit. 03/26/2023, the patient is being seen for a follow-up. He is awake and is communicating. He has chronic lymphedema in the right lower extremity with wound and cellulitis. The wound has been debrided and the surface is quite ulcerated and erythematous with some serous material draining from the wound surface. There is also extensive edema in the right lower extremity along with erythema. He remains on anticoagulation with that also. He has been diabetic and the patient was taking oral hypoglycemic medication. The patient developed severe hypoglycemia and for that reason he was hospitalized and brought into the intensive care unit and currently is on D10 which is running at 100 mL an hour. Most recent blood sugar is at 115. He is hemodynamically stable. He is on IV Zosyn. He is afebrile. Most recent BP is 93/66 and the patient has not re quired any pressors. Producing adequate amount of urine output. His white cell cause of 9.2 with a hemoglobin 11.7 and a platelet count of 159. Sodium level is at 128 and the potassium levels at 4.5, BUN is at 45 with a creatinine of 1.5. Noted the patient was hospitalized with an acute kidney injury and the creatinine was as high as 1.9 and the renal function continues to improve. Serum cortisol level is at 22. Lactic acid level was as high as 2.8 and dropped down to 1.9. Cultures have been sent and the results are still pending for now. 03/27/2023, the patient is sitting up on a chair and is calm and comfortable. Noted overnight, the patient became progressively more hypotensive. He was started on norepinephrine and currently the norepinephrine is O- dose of 0.04 mcg/kg/m. He was also started on midodrine. He is producing adequate amount of urine output. Creatinine is improving and current labs show a BUN of 33 with a creatinine of 1.39. Sodium is at 128 as the patient was receiving D5 water regarding progressive hypoglycemia. The WBC was a 12.6 with a hemoglobin of 11.3 and a platelet count of 199. The most recent blood sugars at 199. The repeat Accu-Cheks have shown adequate blood sugar control and based on that, the patient was taken off the D10 and she was switched to D5 which is running at 50 mL an hour. He is also tolerating his diet. No altered mentation. No chest pain. No shortness of breath. He is on room air oxygen. Cultures are still negative. Opticell applied to his right lower extremity in the legs are wrapped for now. 03/28/2023, the patient is still requiring low-dose of norepinephrine for blood pressure control and norepinephrine is running at 0.03 mcg/kg/m. He has borderline hypotensive secondary to sepsis and cellulitis of the right lower extremity. The patient in the being covered with IV Zosyn. Cultures from the wound came back positive for enterococcus group D, staph aureus and gram- negative bacillus. The patient also had many normal skin noe. The patient's white cell count is down to 10.8 with a hemoglobin of 10.3 and a platelet count of 188. His BUN is at 31 with a creatinine of 1.4 which is improved and the sodium level is at 1:30. His blood sugars are maintained above 100 and the patient is currently off D5 infusion. The blood cultures have been negative thus far after 48 hours growth. Echocardiogram was completed yesterday and it showed a left ventricular ejection fraction of 40-45% which was mildly impaired and there was mild septal wall thickening and the patient was also identified to have severe aortic stenosis with a gradient of 78 mmHg peak and mean gradient of 43. Is also mild aortic regurgitation. Objective - Vital Signs Vital signs: Vital Signs Temp 98.4 F 03/28/23 04:00 Pulse 77 03/28/23 09:00 Resp 23 03/28/23 09:00 BP 113/67 03/28/23 09:00 Pulse Ox 92 L 03/28/23 09:00 FiO2 Intake & Output 03/27/23 03/28/23 03/28/23 18:59 06:59 18:59 Intake Total 568.348 267.577 Output Total 1300 550 350 Balance -731.652 -282.423 -350 Weight 138.2 kg Intake: IV 530 260 0.9 180 260 Calcium Gluconate in NaCl 100 1 gm In Saline 1 100ml. bag @ 100 mls/hr IVPB ONCE ONE Rx#:[id number] Dextrose 5%-0.9% NaCl 1, 150 000 ml @ 50 mls/hr IV . Q20H [facility] Rx#:[id number] Magnesium Sulfate-D5w Pmx 100 1 gm In Dextrose/Water 1 100ml.bag @ 100 mls/hr IVPB Q1H [facility] Rx#: [id number] Intake, IV Titration 38.348 7.577 Amount Norepinephrine 8 mg In 38.348 7.577 Sodium Chloride 0.9% 250 ml @ 0.03 MCG/KG/MIN 5. 635 mls/hr IV .Q24H [facility] Rx#:[id number] Output: Urine 1300 550 350 Other: Voiding Method Urinal Urinal Urinal # Voids 0 # Bowel Movements 1 - Exam GENERAL EXAM: Alert, 77-year-old white male , comfortable in no apparent distress. HEAD: Normocephalic and atraumatic EYES: Normal reaction of pupils, equal size. NOSE: Clear with pink turbinates. THROAT: No erythema or exudates. NECK: No masses, no JVD. CHEST: No chest wall deformity. LUNGS: Equal air entry with bibasilar inspiratory crackles. No wheezes, rhonchi, focal dullness. On room air. No conversational dyspnea or accessory muscle use.. CVS: S1 and S2 normal with systolic ejection murmur grade 3/6 audible murmur, regular rhythm. No extra heart sounds ABDOMEN: Obese abdomen, No hepatosplenomegaly, active bowel sounds, no guarding or rigidity. SPINE: No scoliosis or deformity SKIN: Bilateral lower extremity erythema with purulent drainage. CENTRAL NERVOUS SYSTEM: No focal deficits, tone is normal in all 4 extremities. EXTREMITIES: Right lower extremity is grossly enlarged and erythemic. Left lower extremity is also edematous, with opticell silver and the erythema is improved considerably and wrapped in Kerlix. Peripheral pulses are intact. - Labs CBC & Chem 7: 03/28/23 04:28 03/28/23 04:28 Labs: Abnormal Lab Results - Last 24 Hours (Table) 03/27/23 03/27/23 03/27/23 Range/Units 11:07 16:04 20:06 WBC (3.8-10.6) k/uL RBC (4.30-5.90) m/uL Hgb (13.0-17.5) gm/dL Hct (39.0-53.0) % RDW (11.5-15.5) % Neutrophils # (1.3-7.7) k/uL Lymphocytes # (1.0-4.8) k/uL Sodium (137-145) mmol/L Carbon Dioxide (22-30) mmol/L BUN (9-20) mg/dL Creatinine (0.66-1.25) mg/dL Glucose (74-99) mg/dL POC Glucose (mg/dL) 198 H 187 H 188 H (70-110) mg/dL Calcium (8.4-10.2) mg/dL 03/28/23 03/28/23 03/28/23 Range/Units 02:02 04:28 04:28 WBC 10.8 H (3.8-10.6) k/uL RBC 3.81 L (4.30-5.90) m/uL Hgb 10.3 L (13.0-17.5) gm/dL Hct 32.8 L (39.0-53.0) % RDW 16.0 H (11.5-15.5) % Neutrophils # 8.9 H (1.3-7.7) k/uL Lymphocytes # 0.6 L (1.0-4.8) k/uL Sodium 130 L (137-145) mmol/L Carbon Dioxide 21 L (22-30) mmol/L BUN 31 H (9-20) mg/dL Creatinine 1.41 H (0.66-1.25) mg/dL Glucose 130 H (74-99) mg/dL POC Glucose (mg/dL) 195 H (70-110) mg/dL Calcium 7.3 L (8.4-10.2) mg/dL 03/28/23 Range/Units 06:22 WBC (3.8-10.6) k/uL RBC (4.30-5.90) m/uL Hgb (13.0-17.5) gm/dL Hct (39.0-53.0) % RDW (11.5-15.5) % Neutrophils # (1.3-7.7) k/uL Lymphocytes # (1.0-4.8) k/uL Sodium (137-145) mmol/L Carbon Dioxide (22-30) mmol/L BUN (9-20) mg/dL Creatinine (0.66-1.25) mg/dL Glucose (74-99) mg/dL POC Glucose (mg/dL) 152 H (70-110) mg/dL Calcium (8.4-10.2) mg/dL Microbiology - Last 24 Hours (Table) 03/25/23 14:30 Blood Culture - Preliminary Blood 03/25/23 14:45 Blood Culture - Preliminary Blood 03/25/23 17:41 Gram Stain - Final Ankle - Left Wound Culture - Final Assessment and Plan Assessment: Hypoglycemia refractory to glucose replacement, patient has received a total of 8 ampules of D50W so far, and D10W at 100 ml/hr was started. Patient does take metformin and a sulfonylurea on outpatient basis. No other etiology identified. Bilateral lower extremity cellulitis Right lower extremity lymphedema History of right lower extremity DVT and pulmonary embolism anticoagulated on Xarelto History of factor V Leyden mutation Acute kidney injury, improving Mild hyponatremia Diabetes mellitus type 2, [id number], normally managed with metformin on an outpatient basis Essential hypertension Hyperlipidemia Severe persistent asthma, stable Plan: Patient will be transferred to intensive care unit for closer glucose control Continue D10W at 100 ML's per hour, supplement with when necessary D50W amps IVP. May need insertion of central line and D50W infusion Hold anti-hyperglycemics Check TSH and cortisol levels LFTs are non-elevated Continue home Symbicort inhaler with when necessary Ventolin inhaler Antibiotics per infectious disease We will continue to follow, and make recommendations while in the ICU I have personally seen and examined the patient, performed the documentation and the assessment and plan as written. Number of minutes spent on the visit:20 Joint evaluation that was done along with the nurse practitioner. Continue D10W at 100 ML's per hour Monitor the blood sugar No need for pressors Continue IV Zosyn Obtain Doppler of the right lower extremity Hold anti-hyperglycemics Check TSH and cortisol levels, levels are adequate at this point in time LFTs are non-elevated Continue home Symbicort inhaler with when necessary Ventolin inhaler Antibiotics per infectious disease We will continue to follow, and make recommendations while in the ICU Evaluation was done in more than 30 minutes. Plan: Hypoglycemia refractory to glucose replacement, improved and the patient is currently off oral hypoglycemic medication and the patient is also off the D5 infusion. He'll be offered insulin sliding scale coverage only at this point in time. Bilateral lower extremity cellulitis, worse in the right lower extremity and the patient has a superficial wound that has been debrided and there is a wound covering the anterior aspect of the right lower extremity was erythematous and draining minimally, nonpurulent material. Cultures are polymicrobial including enterococcus group D and gram-negative and the patient is currently on IV Zosyn. 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 He'll be kept in the intensive care unit as long as the patient is still pressor dependent. We'll wean off the pressors and will monitor.
--- NOTE | 2023-03-28 11:03 | P.PN ---
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 Patient is admitted with worsening right leg swelling for the last 2 weeks as he explains to me with mild pain or discomfort in the area.. Also patient presents because of hypoglycemia. Patient was taken several of diabetes medications including metformin, Actos and glipizide 20 mg daily which patient was taken every day however he says that he had low appetite over the last 10 days and he was not eating well. Patient currently complaining of from 3-4/10 pain in his right leg. Patient can walk at home using a cane as he explains to me. Patient is fully awake and oriented and denies any other complaints. No chest pain or dyspnea. No new GI or urinary complaints. No headache dizziness weakness or numbness Patient says that he was taking testosterone at home to prevent him from falling down and other male characters 04/15/2023 Patient clinically looks the same, direct but answers questions appropriately. He denies any specific pain or discomfort. He was admitted with right leg cellulitis and currently is with Zeus wrap and he had loose bowel movement 1: No abdominal pain. His blood pressure on the low side requiring midodrine 10 mg and to make her on Levophed. Thank you again at 0.06 g per KG per minute. Also he is getting normal saline at 50 mL/h. Sugars start picking up today more than 200 therefore was started and Actos. This followed now is D5 normal saline at 50 mL/h. He is on Xarelto Uriostegui history of DVT/PE. 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 Patient currently on Zosyn without edema the case. History of heart were small dose of pressors of Levophed improvement from 0.06 down to 0.03. Also he is on midodrine 10 mg 3 times a day. He is awake alert and comfortable, no new complaint compared to yesterday for the patient's site. Remains on blood thinners Xarelto for his history of right lower extremity DVT and PE. [employer] has been consulted for bradycardia and echocardiogram showing severe aortic stenosis.Echocardiogram showed ejection fraction of 40-45% He is off IV fluids. Insulin controlled on insulin sliding scale. Glipizide, metformin and Actos on hold. Also Cardizem is on hold. Review of systems CONSTITUTIONAL: No fever, no malaise, no fatigue. HEENT: No recent visual problems or hearing problems. Denied any sore throat. CARDIOVASCULAR: No orthopnea, PND, no palpitations, no syncope. PULMONARY: No shortness of breath, no cough, no hemoptysis. GASTROINTESTINAL: No diarrhea, no nausea, no vomiting, no abdominal pain. Normoactive bowel sounds. Active Medications Generic Name Dose Route Start Last Admin Trade Name Freq PRN Reason Stop Dose Admin Acetaminophen 650 mg 03/25/23 16:10 03/26/23 18:09 Acetaminophen Tab 325 Mg Tab PO 650 mg Q6HR PRN Administration Mild Pain or Fever > 100.5 Hydrocodone Bitart/Acetaminophen 1 each 03/26/23 06:49 03/28/23 09:00 Hydrocodone/Apap 5-325mg 1 Each Tab PO 1 each BID PRN Administration Pain Albuterol Sulfate 2.5 mg 03/26/23 08:00 03/28/23 08:23 Albuterol Nebulized 2.5 Mg/3 Ml INHALATION 2.5 mg RT-Q4H NUBIA Administration Atorvastatin Calcium 10 mg 03/26/23 09:00 03/28/23 08:55 Atorvastatin 10 Mg Tab PO 10 mg DAILY NUBIA Administration Budesonide/Formoterol Fumarate 2 puff 03/26/23 08:00 03/28/23 08:23 Symbicort 80-4.5 Mcg Inhaler INHALATION 2 puff RT-BID NUBIA Administration Dextrose/Water 25 ml 03/25/23 19:20 03/26/23 11:18 Dextrose 50% Syringe 50 Ml IVP 25 ml PER PROTOCOL PRN Administration Hypoglycemia Protocol Dextrose/Water 50 ml 03/25/23 19:20 03/26/23 09:54 Dextrose 50% Syringe 50 Ml IVP 50 ml PER PROTOCOL PRN Administration Hypoglycemia Protocol Famotidine 20 mg 03/26/23 21:00 03/28/23 08:55 Famotidine 20 Mg/2 Ml Vial IV 20 mg Q12HR NUBIA Administration Piperacillin Sod/Tazobactam 100 mls @ 25 mls/hr 03/25/23 16:15 03/28/23 08:54 Sod 3.375 gm/ Sodium Chloride IVPB 25 mls/hr Q8HR NUBIA Administration Protocol Norepinephrine Bitartrate 8 mg 258 mls @ 5.635 mls/hr 03/26/23 21:15 03/27/23 23:51 / Sodium Chloride IV 0.03 mcg/kg/min .Q24H NUBIA 5.635 mls/hr Titration Protocol 0.03 MCG/KG/MIN Insulin Aspart 0 unit 03/25/23 21:00 03/28/23 06:25 Insulin Aspart (Novolog) 100 Unit/Ml Vial SQ 2 unit [id number] NUBIA Administration Protocol Levothyroxine Sodium 200 mcg 03/26/23 07:00 03/28/23 06:16 Levothyroxine 100 Mcg Tab PO 200 mcg 0630 NUBIA Administration Midodrine 10 mg 03/27/23 07:30 03/28/23 06:16 Midodrine 5 Mg Tab PO 10 mg AC-TID NUBIA Administration Miscellaneous Information 1 each 03/26/23 17:01 Magnesium Replacement Protocol 1 Each Misc MISCELLANE DAILY PRN Per Protocol Protocol Montelukast Sodium 10 mg 03/26/23 21:00 03/27/23 20:09 Montelukast 10 Mg Tab PO 10 mg HS NUBIA Administration Naloxone HCl 0.2 mg 03/25/23 16:10 Naloxone 0.4 Mg/Ml 1 Ml Vial IV Q2M PRN Opioid Reversal Ondansetron HCl 4 mg 03/25/23 16:10 Ondansetron 4 Mg/2 Ml Vial IVP Q8HR PRN Nausea And Vomiting Rivaroxaban 20 mg 03/26/23 09:00 03/28/23 08:55 Rivaroxaban 20 Mg Tab PO 20 mg DAILY NUBIA Administration Protocol Tizanidine HCl 4 mg 03/26/23 18:24 03/27/23 16:44 Tizanidine 4 Mg Tab PO 4 mg TID PRN Administration Muscle Spasm Objective - Vital Signs Vital signs: Vital Signs Temp 98.4 F 03/28/23 04:00 Pulse 77 03/28/23 09:00 Resp 23 03/28/23 09:00 BP 113/67 03/28/23 09:00 Pulse Ox 92 L 03/28/23 09:00 FiO2 Intake & Output 03/27/23 03/28/23 03/28/23 18:59 06:59 18:59 Intake Total 568.348 267.577 Output Total 1300 550 350 Balance -731.652 -282.423 -350 Weight 138.2 kg Intake: IV 530 260 0.9 180 260 Calcium Gluconate in NaCl 100 1 gm In Saline 1 100ml. bag @ 100 mls/hr IVPB ONCE ONE Rx#:[id number] Dextrose 5%-0.9% NaCl 1, 150 000 ml @ 50 mls/hr IV . Q20H [facility] Rx#:[id number] Magnesium Sulfate-D5w Pmx 100 1 gm In Dextrose/Water 1 100ml.bag @ 100 mls/hr IVPB Q1H [facility] Rx#: [id number] Intake, IV Titration 38.348 7.577 Amount Norepinephrine 8 mg In 38.348 7.577 Sodium Chloride 0.9% 250 ml @ 0.03 MCG/KG/MIN 5. 635 mls/hr IV .Q24H [facility] Rx#:[id number] Output: Urine 1300 550 350 Other: Voiding Method Urinal Urinal Urinal # Voids 0 # Bowel Movements 1 - Exam GENERAL: The patient is alert and oriented x3, not in any acute distress. Well developed, well nourished. HEENT: Pupils are round and equally reacting to light. EOMI. No scleral icterus. No conjunctival pallor. Normocephalic, atraumatic. No pharyngeal erythema. No thyromegaly. CARDIOVASCULAR: S1 and S2 present. No murmurs, rubs, or gallops. PULMONARY: Chest is clear to auscultation, no wheezing , no crackles. ABDOMEN: Soft, nontender, nondistended, normoactive bowel sounds. No palpable organomegaly. MUSCULOSKELETAL: No joint swelling or deformity. -EXTREMITIES: No cyanosis, clubbing, or pedal edema. Right leg significantly swollen compared to the left leg NEUROLOGICAL: Gross neurological examination did not reveal any focal deficits. SKIN: No rashes. no petechiae. - Labs CBC & Chem 7: 03/28/23 04:28 03/28/23 04:28 Labs: Abnormal Lab Results - Last 24 Hours (Table) 03/27/23 03/27/23 03/27/23 Range/Units 11:07 16:04 20:06 WBC (3.8-10.6) k/uL RBC (4.30-5.90) m/uL Hgb (13.0-17.5) gm/dL Hct (39.0-53.0) % RDW (11.5-15.5) % Neutrophils # (1.3-7.7) k/uL Lymphocytes # (1.0-4.8) k/uL Sodium (137-145) mmol/L Carbon Dioxide (22-30) mmol/L BUN (9-20) mg/dL Creatinine (0.66-1.25) mg/dL Glucose (74-99) mg/dL POC Glucose (mg/dL) 198 H 187 H 188 H (70-110) mg/dL Calcium (8.4-10.2) mg/dL 03/28/23 03/28/23 03/28/23 Range/Units 02:02 04:28 04:28 WBC 10.8 H (3.8-10.6) k/uL RBC 3.81 L (4.30-5.90) m/uL Hgb 10.3 L (13.0-17.5) gm/dL Hct 32.8 L (39.0-53.0) % RDW 16.0 H (11.5-15.5) % Neutrophils # 8.9 H (1.3-7.7) k/uL Lymphocytes # 0.6 L (1.0-4.8) k/uL Sodium 130 L (137-145) mmol/L Carbon Dioxide 21 L (22-30) mmol/L BUN 31 H (9-20) mg/dL Creatinine 1.41 H (0.66-1.25) mg/dL Glucose 130 H (74-99) mg/dL POC Glucose (mg/dL) 195 H (70-110) mg/dL Calcium 7.3 L (8.4-10.2) mg/dL 03/28/23 Range/Units 06:22 WBC (3.8-10.6) k/uL RBC (4.30-5.90) m/uL Hgb (13.0-17.5) gm/dL Hct (39.0-53.0) % RDW (11.5-15.5) % Neutrophils # (1.3-7.7) k/uL Lymphocytes # (1.0-4.8) k/uL Sodium (137-145) mmol/L Carbon Dioxide (22-30) mmol/L BUN (9-20) mg/dL Creatinine (0.66-1.25) mg/dL Glucose (74-99) mg/dL POC Glucose (mg/dL) 152 H (70-110) mg/dL Calcium (8.4-10.2) mg/dL Microbiology - Last 24 Hours (Table) 03/25/23 14:30 Blood Culture - Preliminary Blood 03/25/23 14:45 Blood Culture - Preliminary Blood 03/25/23 17:41 Gram Stain - Final Ankle - Left Wound Culture - Final Assessment and Plan Assessment: Acute right leg cellulitis patient confirmed to me he was taken his blood thinner at home for his DVT in both legs about 4-5 years ago. With possible right lower extremity enlargement Hypotension requiring pressors most likely related to septic shock Cardiomyopathy with ejection fraction 40-45% Severe aortic stenosis Diabetes mellitus, with hypoglycemia, present on admission decreased appetite secondary to above Hypertension Hyperlipidemia History of osteoarthritis Hypothyroidism History of DVT/PE on blood thinner at home Plan: Continue off IV fluid.. Patient encouraged to eat Continue with antibiotic, currently on Zosyn. Infectious disease consult Pulmonary/critical care team consult cardiology team for the evaluation of the severe aortic stenosis and the bradycardia Continue with insulin sliding scale Continue with the process per critical care team Labs and medication were reviewed.. Continue same treatment. Continue with symptomatic treatment. Resume home medication. Monitor lytes and vitals. DVT and GI prophylaxis. Further recommendations depends on the clinical course of the patient DVT prophylaxis: Xarelto GI prophylaxis: Pepcid PT/OT: Pending Prognosis is guarded
[2023-03-28 11:36] LABS: Glucose,Whole Blood 146 mg/dL (70-110)
--- NOTE | 2023-03-28 12:13 | P.PN ---
Subjective Patient is seen for follow-up for acute kidney injury. Renal function has improved. Serum creatinine staying at about 1.3-1.4 mg/dL down from peak creatinine of 1.9 on admission. Urine output at 1.8L for 24 hours. Levo fed being weaned off. Off of IV fluids Objective - Vital Signs Vital signs: Vital Signs Temp 99.0 F 03/28/23 11:00 Pulse 69 03/28/23 11:00 Resp 25 H 03/28/23 11:00 BP 126/75 03/28/23 11:00 Pulse Ox 95 03/28/23 11:00 FiO2 Intake & Output 03/27/23 03/28/23 03/28/23 18:59 06:59 18:59 Intake Total 568.348 267.577 Output Total 1300 550 350 Balance -731.652 -282.423 -350 Weight 138.2 kg Intake: IV 530 260 0.9 180 260 Calcium Gluconate in NaCl 100 1 gm In Saline 1 100ml. bag @ 100 mls/hr IVPB ONCE ONE Rx#:[id number] Dextrose 5%-0.9% NaCl 1, 150 000 ml @ 50 mls/hr IV . Q20H [facility] Rx#:[id number] Magnesium Sulfate-D5w Pmx 100 1 gm In Dextrose/Water 1 100ml.bag @ 100 mls/hr IVPB Q1H [facility] Rx#: [id number] Intake, IV Titration 38.348 7.577 Amount Norepinephrine 8 mg In 38.348 7.577 Sodium Chloride 0.9% 250 ml @ 0.03 MCG/KG/MIN 5. 635 mls/hr IV .Q24H [facility] Rx#:[id number] Output: Urine 1300 550 350 Other: Voiding Method Urinal Urinal Urinal # Voids 0 # Bowel Movements 1 - Exam Patient is awake, comfortable, in no acute distress Examination of the heart S1 and S2 Examination of the lungs bilateral breath sounds are heard Abdomen is soft obese nontender Examination lower extremity shows chronic skin changes bilaterally with erythema noted in the right lower extremity. [employer] exam grossly intact - Labs CBC & Chem 7: 03/28/23 04:28 03/28/23 04:28 Labs: Abnormal Lab Results - Last 24 Hours (Table) 03/27/23 03/27/23 03/28/23 Range/Units 16:04 20:06 02:02 WBC (3.8-10.6) k/uL RBC (4.30-5.90) m/uL Hgb (13.0-17.5) gm/dL Hct (39.0-53.0) % RDW (11.5-15.5) % Neutrophils # (1.3-7.7) k/uL Lymphocytes # (1.0-4.8) k/uL Sodium (137-145) mmol/L Carbon Dioxide (22-30) mmol/L BUN (9-20) mg/dL Creatinine (0.66-1.25) mg/dL Glucose (74-99) mg/dL POC Glucose (mg/dL) 187 H 188 H 195 H (70-110) mg/dL Calcium (8.4-10.2) mg/dL 03/28/23 03/28/23 03/28/23 Range/Units 04:28 04:28 06:22 WBC 10.8 H (3.8-10.6) k/uL RBC 3.81 L (4.30-5.90) m/uL Hgb 10.3 L (13.0-17.5) gm/dL Hct 32.8 L (39.0-53.0) % RDW 16.0 H (11.5-15.5) % Neutrophils # 8.9 H (1.3-7.7) k/uL Lymphocytes # 0.6 L (1.0-4.8) k/uL Sodium 130 L (137-145) mmol/L Carbon Dioxide 21 L (22-30) mmol/L BUN 31 H (9-20) mg/dL Creatinine 1.41 H (0.66-1.25) mg/dL Glucose 130 H (74-99) mg/dL POC Glucose (mg/dL) 152 H (70-110) mg/dL Calcium 7.3 L (8.4-10.2) mg/dL 03/28/23 Range/Units 11:34 WBC (3.8-10.6) k/uL RBC (4.30-5.90) m/uL Hgb (13.0-17.5) gm/dL Hct (39.0-53.0) % RDW (11.5-15.5) % Neutrophils # (1.3-7.7) k/uL Lymphocytes # (1.0-4.8) k/uL Sodium (137-145) mmol/L Carbon Dioxide (22-30) mmol/L BUN (9-20) mg/dL Creatinine (0.66-1.25) mg/dL Glucose (74-99) mg/dL POC Glucose (mg/dL) 146 H (70-110) mg/dL Calcium (8.4-10.2) mg/dL Microbiology - Last 24 Hours (Table) 03/25/23 14:30 Blood Culture - Preliminary Blood 03/25/23 14:45 Blood Culture - Preliminary Blood 03/25/23 17:41 Gram Stain - Final Ankle - Left Wound Culture - Final Assessment and Plan Assessment: 1. Acute kidney injury ATN nonoliguric secondary to hypotension and underlying infection. Improving. Status post IV fluids 2. Hyponatremia secondary to hypotonic fluid 3. Persistent hypoglycemia, improved, status post D10.. 4. Bilateral lower extremity cellulitis, maintained on antibiotics 5. Right lower extremity DVT, chronic with history of PE maintained on xarelto Plan: Continue off of IV fluid Continue antibiotics Repeat labs in a.m.
[2023-03-28] MEDS: ACETAMINOPHEN TAB 325 MG TAB PO PRN (13:36)
[2023-03-28] MEDS: tiZANidine 4 MG TAB PO PRN ×2 (14:24→20:31)
[2023-03-28 17:12] LABS: Glucose,Whole Blood 174 mg/dL (70-110)
[2023-03-28 20:15] LABS: Glucose,Whole Blood 134 mg/dL (70-110)
[2023-03-28] MEDS: MONTELUKAST 10 MG TAB PO SCH (20:31)
[2023-03-28] MEDS ORDERED: ALBUTEROL NEBULIZED 2.5 MG/3 ML INHALATION PRN (21:01)
--- NOTE | 2023-03-28 21:55 | CONS ---
CONSULTATION HISTORY OF PRESENT ILLNESS: This is a 77-year-old gentleman, well known to us from the wound clinic. He has a longstanding history of DVT of right lower extremity with bilateral lymphedema, more on the right than on the left. The patient has been coming to the wound clinic on a regular basis. The patient has a chronic DVT with lymphedema involving the right lower extremity. The patient uses lymphedema pump twice a day, and he comes to the wound clinic as he has a venous ulcer on the right ankle, we have been treating with local wound care with compression wrap. The patient has been admitted with history of hypoglycemia and also history of cellulitis and persistent asthma. The patient was seen in the intensive care unit. The patient is on oxygen. His chest has a few rhonchi at the lung bases. Abdomen is soft and nontender. Femorals are 1+. The patient has a chronic DVT for a long period of time with lymphedema involving the right lower extremity and a venous ulcer at the right ankle, we have been treating with compression wrap and leg elevation, and he has been using a lymphedema pump. PLAN: Continue with compression wrap to right lower extremity. We will follow with you. MMODL / IJN: [id number] /
--- NOTE | 2023-03-28 22:07 | PN ---
PROGRESS NOTE SUBJECTIVE: Antony is a 77-year-old gentleman that is admitted to hospital with cellulitis and hypotension. I was consulted because of bradyarrhythmia. The patient this morning appears comfortable at rest. Remains on Levophed for hypotension. Remains in sinus rhythm with PACs, episodes of junctional rhythm and PVCs but no episodes of significant bradycardia that required intervention or should be causing hypotension. He is on Xarelto for anticoagulation. OBJECTIVE: GENERAL: On exam, comfortable at rest. VITAL SIGNS: Stable. CHEST: Reveals good air entry bilaterally. HEART: Reveals first and second heart sounds. No gallop. He has an ejection systolic murmur in the aortic area. ABDOMEN: Soft. EXTREMITIES: Exam of extremities reveals bilateral cellulitis. ASSESSMENT: 1. Symptomatic bradycardia of unclear clinical significance. 2. Aortic stenosis. 3. Bilateral cellulitis with hypotension. PLAN: We will continue with watchful waiting at this time. MMODL / IJN: [id number] /
[2023-03-28] MEDS: NOREPINEPHRINE 8 MG in SODIUM CHLORIDE 0.9% 250 ML IV SCH (22:38)
[2023-03-29 04:49] LABS: Anisocytosis Slight; HGB 10.6 gm/dL (13.0-17.5); MCH 28.4 pg (25.0-35.0); MCHC 33.2 g/dL (31.0-37.0); MCV 85.3 fL (80.0-100.0); Mean Platelet Volume 8.5; Platelet Count 228 k/uL (150-450); RBC 3.75 m/uL (4.30-5.90); RDW 16.1 % (11.5-15.5); WBC 10.6 k/uL (3.8-10.6)
[2023-03-29 04:58] LABS: African American GFR (CKD) 66 (>60 ml/min/1.73 sqM); Anion Gap 8 mmol/L; Blood Urea Nitrogen 27 mg/dL (9-20); Calcium 7.7 mg/dL (8.4-10.2); Carbon Dioxide 20 mmol/L (22-30); Chloride 103 mmol/L (98-107); Glucose 151 mg/dL (74-99); Non-African American GFR(CKD) 57 (>60 ml/min/1.73 sqM); Potassium 4.3 mmol/L (3.5-5.1); Sodium 131 mmol/L (137-145)
[2023-03-29] MEDS: INSULIN ASPART (NovoLOG) 100 UNIT/ML VIAL SQ SCH ×5 (05:38→20:35)
[2023-03-29 06:08] LABS: Glucose,Whole Blood 155 mg/dL (70-110)
[2023-03-29] MEDS: MIDODRINE 5 MG TAB PO SCH ×3 (06:12→17:28)
[2023-03-29] MEDS: HYDROcodone/APAP 5-325MG 1 EACH TAB PO PRN ×2 (06:12→15:43)
[2023-03-29] MEDS: LEVOTHYROXINE 100 MCG TAB PO SCH (06:12)
[2023-03-29 06:57] LABS: Glucose,Whole Blood 151 mg/dL (70-110)
[2023-03-29] MEDS: ALBUTEROL NEBULIZED 2.5 MG/3 ML INHALATION SCH ×4 (08:05→22:13)
[2023-03-29] MEDS: PIPERACILLIN-TAZOBACTAM 3.375 GM in SODIUM CHLORIDE 0.9% 100 ML IVPB SCH (08:46)
[2023-03-29] MEDS: tiZANidine 4 MG TAB PO PRN (08:47)
[2023-03-29] MEDS: ATORVASTATIN 10 MG TAB PO SCH (08:47)
[2023-03-29] MEDS: FAMOTIDINE 20 MG/2 ML VIAL IV SCH ×2 (08:47→20:34)
[2023-03-29] MEDS: RIVAROXABAN 20 MG TAB PO SCH (08:47)
--- NOTE | 2023-03-29 10:35 | P.PN ---
Subjective Progress Note Date: 03/29/23 I am seeing this patient in new consultation today 03/26/2023 for persistent and refractory hypoglycemia. Patient is a 77-year-old male with past medical history significant for diabetes mellitus type 2, hypothyroidism, factor V Leyden mutation, right lower extremity DVT, pulmonary embolism, recurrent lower extremity cellulitis, hypertension, hyperlipidemia, severe persistent asthma, GERD. His primary care provider is Dr. Tatyana Mora. Patient came to the emergency room yesterday afternoon complaining of increased redness and swelling of bilateral legs, but his right lower extremity is worse. He says that he has noticed increased redness and drainage over the last 2 weeks. This has been accompanied with fevers and generalized malaise. The patient was admitted to the hospital on IV antibiotics in the form of Zosyn. While on the general medical floor, the patient was found to be profoundly hypoglycemic. This was refractory to multiple administrations of D50W. In fact, it looks like he's had over 8 amps of D50W over the last 12 hours. He has been started on a D10W infusion at 100 ML's per hour. Patient is currently sitting up in bed, on room air, in no acute distress. He is asymptomatic even when hypoglycemic. He has not received any long-acting insulin, metformin, or sulfonylureas while in the hospital. He normally takes metformin and Glipizide at home, but has not had a dose this admission. He has NovoLog sliding scale insulin ordered, but has not received any because of his hypoglycemia. Denies any liver disease, active cancer, alcoholism. Most recent CBC is unremarkable. BMP shows sodium 128, potassium 4.5, chloride 99, serum bicarb 22, BUN 41, creatinine 1.54, glucose 35. LFTs on arrival were nonelevated. Patient is hemodynamically stable, but warrants close monitoring and intensive care unit. 03/26/2023, the patient is being seen for a follow-up. He is awake and is communicating. He has chronic lymphedema in the right lower extremity with wound and cellulitis. The wound has been debrided and the surface is quite ulcerated and erythematous with some serous material draining from the wound surface. There is also extensive edema in the right lower extremity along with erythema. He remains on anticoagulation with that also. He has been diabetic and the patient was taking oral hypoglycemic medication. The patient developed severe hypoglycemia and for that reason he was hospitalized and brought into the intensive care unit and currently is on D10 which is running at 100 mL an hour. Most recent blood sugar is at 115. He is hemodynamically stable. He is on IV Zosyn. He is afebrile. Most recent BP is 93/66 and the patient has not re quired any pressors. Producing adequate amount of urine output. His white cell cause of 9.2 with a hemoglobin 11.7 and a platelet count of 159. Sodium level is at 128 and the potassium levels at 4.5, BUN is at 45 with a creatinine of 1.5. Noted the patient was hospitalized with an acute kidney injury and the creatinine was as high as 1.9 and the renal function continues to improve. Serum cortisol level is at 22. Lactic acid level was as high as 2.8 and dropped down to 1.9. Cultures have been sent and the results are still pending for now. 03/27/2023, the patient is sitting up on a chair and is calm and comfortable. Noted overnight, the patient became progressively more hypotensive. He was started on norepinephrine and currently the norepinephrine is O- dose of 0.04 mcg/kg/m. He was also started on midodrine. He is producing adequate amount of urine output. Creatinine is improving and current labs show a BUN of 33 with a creatinine of 1.39. Sodium is at 128 as the patient was receiving D5 water regarding progressive hypoglycemia. The WBC was a 12.6 with a hemoglobin of 11.3 and a platelet count of 199. The most recent blood sugars at 199. The repeat Accu-Cheks have shown adequate blood sugar control and based on that, the patient was taken off the D10 and she was switched to D5 which is running at 50 mL an hour. He is also tolerating his diet. No altered mentation. No chest pain. No shortness of breath. He is on room air oxygen. Cultures are still negative. Opticell applied to his right lower extremity in the legs are wrapped for now. 03/28/2023, the patient is still requiring low-dose of norepinephrine for blood pressure control and norepinephrine is running at 0.03 mcg/kg/m. He has borderline hypotensive secondary to sepsis and cellulitis of the right lower extremity. The patient in the being covered with IV Zosyn. Cultures from the wound came back positive for enterococcus group D, staph aureus and gram- negative bacillus. The patient also had many normal skin noe. The patient's white cell count is down to 10.8 with a hemoglobin of 10.3 and a platelet count of 188. His BUN is at 31 with a creatinine of 1.4 which is improved and the sodium level is at 1:30. His blood sugars are maintained above 100 and the patient is currently off D5 infusion. The blood cultures have been negative thus far after 48 hours growth. Echocardiogram was completed yesterday and it showed a left ventricular ejection fraction of 40-45% which was mildly impaired and there was mild septal wall thickening and the patient was also identified to have severe aortic stenosis with a gradient of 78 mmHg peak and mean gradient of 43. Is also mild aortic regurgitation. 03/29/2023, the patient is off pressors and his been of present since 11 AM yest erday. He is hemodynamically stable and is maintaining his own blood pressure. Cellulitis is improving in his right lower extremity. The patient's has no specific complaints. The LAD oxygen. Creatinine is down to 1.2. Rest of the blood work on this patient shows a WBC count of 10 with a hemoglobin of 10.6 and a platelet count of 228. Sodium level is at the 131. The patient had no further episodes of hypoglycemia. Blood sugars under adequate control. He is on a slight scale insulin coverage. I separate note, he was found to have severe aortic stenosis on his echocardiogram. Cardiology is on the case for now. As mentioned, the cellulitis of the right lower oximetry is also improvi ng. We're doing wound care. 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 No interventions were recommended this point in time. The patient has a chronic venous ulcer which is being treated Objective - Vital Signs Vital signs: Vital Signs Temp 99.6 F 03/29/23 08:00 Pulse 96 03/29/23 09:00 Resp 28 H 03/29/23 09:00 BP 112/60 03/29/23 09:00 Pulse Ox 99 03/29/23 08:30 FiO2 Intake & Output 03/28/23 03/29/23 03/29/23 18:59 06:59 18:59 Intake Total 68.465 320 280 Output Total 550 850 100 Balance -481.535 -530 180 Weight 137.2 kg Intake: IV 320 60 0.9 220 60 Piperacillin-Tazobactam 3 100 .375 gm In Sodium Chloride 0.9% 100 ml @ 25 mls/hr IVPB Q8HR [facility] Rx# :[id number] Intake, IV Titration 68.465 100 Amount Norepinephrine 8 mg In 68.465 Sodium Chloride 0.9% 250 ml @ 0.03 MCG/KG/MIN 5. 635 mls/hr IV .Q24H [facility] Rx#:[id number] Piperacillin-Tazobactam 3 100 .375 gm In Sodium Chloride 0.9% 100 ml @ 25 mls/hr IVPB Q8HR [facility] Rx# :[id number] Oral 120 Output: Urine 550 850 100 Other: Voiding Method Urinal Urinal Urinal # Voids 1 - Exam GENERAL EXAM: Alert, 77-year-old white male , comfortable in no apparent distress. HEAD: Normocephalic and atraumatic EYES: Normal reaction of pupils, equal size. NOSE: Clear with pink turbinates. THROAT: No erythema or exudates. NECK: No masses, no JVD. CHEST: No chest wall deformity. LUNGS: Equal air entry with bibasilar inspiratory crackles. No wheezes, rhonchi, focal dullness. On room air. No conversational dyspnea or accessory muscle use.. CVS: S1 and S2 normal with systolic ejection murmur grade 3/6 audible murmur, regular rhythm. No extra heart sounds ABDOMEN: Obese abdomen, No hepatosplenomegaly, active bowel sounds, no guarding or rigidity. SPINE: No scoliosis or deformity SKIN: Bilateral lower extremity erythema with purulent drainage. CENTRAL NERVOUS SYSTEM: No focal deficits, tone is normal in all 4 extremities. EXTREMITIES: Right lower extremity is grossly enlarged and erythemic. Left lower extremity is also edematous, with opticell silver and the erythema is improved considerably and wrapped in Kerlix. Peripheral pulses are intact. - Labs CBC & Chem 7: 03/29/23 04:22 03/29/23 04:22 Labs: Abnormal Lab Results - Last 24 Hours (Table) 03/28/23 03/28/23 03/28/23 Range/Units 11:34 17:10 20:13 RBC (4.30-5.90) m/uL Hgb (13.0-17.5) gm/dL Hct (39.0-53.0) % RDW (11.5-15.5) % Sodium (137-145) mmol/L Carbon Dioxide (22-30) mmol/L BUN (9-20) mg/dL Glucose (74-99) mg/dL POC Glucose (mg/dL) 146 H 174 H 134 H (70-110) mg/dL Calcium (8.4-10.2) mg/dL 03/29/23 03/29/23 03/29/23 Range/Units 04:22 04:22 06:06 RBC 3.75 L (4.30-5.90) m/uL Hgb 10.6 L (13.0-17.5) gm/dL Hct 32.0 L (39.0-53.0) % RDW 16.1 H (11.5-15.5) % Sodium 131 L (137-145) mmol/L Carbon Dioxide 20 L (22-30) mmol/L BUN 27 H (9-20) mg/dL Glucose 151 H (74-99) mg/dL POC Glucose (mg/dL) 155 H (70-110) mg/dL Calcium 7.7 L (8.4-10.2) mg/dL 03/29/23 Range/Units 06:56 RBC (4.30-5.90) m/uL Hgb (13.0-17.5) gm/dL Hct (39.0-53.0) % RDW (11.5-15.5) % Sodium (137-145) mmol/L Carbon Dioxide (22-30) mmol/L BUN (9-20) mg/dL Glucose (74-99) mg/dL POC Glucose (mg/dL) 151 H (70-110) mg/dL Calcium (8.4-10.2) mg/dL Microbiology - Last 24 Hours (Table) 03/25/23 14:30 Blood Culture - Preliminary Blood 03/25/23 14:45 Blood Culture - Preliminary Blood Assessment and Plan Plan: Hypoglycemia refractory to glucose replacement, improved and the patient is currently off oral hypoglycemic medication and the patient is also off the D5 infusion. He'll be offered insulin sliding scale coverage only at this point in time. No further episodes of hypoglycemia Bilateral lower extremity cellulitis, worse in the right lower extremity and the patient has a superficial wound that has been debrided and there is a wound covering the anterior aspect of the right lower extremity was erythematous and draining minimally, nonpurulent material. Cultures are polymicrobial including enterococcus group D and gram-negative and the patient is currently on IV Zosyn. The wound is improving clinically Hypotension, likely secondary to underlying sepsis, recovered and the patient is currently off pressors 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, vascular surgery regarding the patient. No intervention. We'll use lymphedema pump. We'll take care of a wound and the patient is currently on IV antibiotics. Severe aortic stenosis with a peak gradient of 78 and mean gradient of 43 mmHg History of right lower extremity DVT and pulmonary embolism anticoagulated on Xarelto, repeat ultrasound shows a chronic clot in the right lower extremity involving the common femoral vein extending to mid femoral vein. History of factor V Leyden mutation Acute kidney injury, improving, creatinine is down to 1.2 Mild hyponatremia, improving Diabetes mellitus type 2, [id number], normally managed with metformin on an outpatient basis Essential hypertension Hyperlipidemia Severe persistent asthma, stable Plan: Continue sliding scale insulin coverage only and avoid oral hypoglycemic medications for now Monitor the blood sugar The patient is currently off pressors Continue IV Zosyn Obtain Doppler of the right lower extremity and this and showed a chronic DVT in the right lower extremity, vascular surgery has been consulted, no further interventions needed Check TSH and cortisol levels, levels are adequate at this point in time Continue home Symbicort inhaler with when necessary Ventolin inhaler Antibiotics per infectious disease Erythematous cellulitis of the right lower extremity is improving, he has an opticell Silver applied to the right lower extremity wound Transfer out of the intensive care unit to a medical surgical floor
--- NOTE | 2023-03-29 11:13 | PN ---
PROGRESS NOTE SUBJECTIVE: This is a 77-year-old gentleman, who is admitted to hospital with cellulitis and I have been consulted because of bradycardia. The patient remains in sinus rhythm with episodes of junctional rhythm and first-degree AV block, but did not have any episodes of high-grade AV block and did not develop symptomatic bradycardia. He is hypotensive, currently on midodrine and Levophed. The patient is also on Xarelto because of history of DVT. OBJECTIVE: GENERAL: Comfortable at rest. VITAL SIGNS: Afebrile, heart rate is 90 beats per minute, blood pressure is 112/60, respiratory rate is 24, O2 saturation is 99% on room air. CHEST: Reveals diminished air entry at the bases. HEART: Reveals first and second heart sounds. No gallop. He has an ejection systolic murmur in the aortic area. ABDOMEN: Soft. EXTREMITIES: Reveals bilateral edema with cellulitis. LABORATORY DATA: Show a hemoglobin of 10.6, platelet count is 228. Potassium is 4.3, creatinine is 1.2. ASSESSMENT: 1. Asymptomatic bradycardia. 2. Cellulitis. 3. History of deep venous thrombosis. 4. Hypotension. PLAN: The patient will continue current medications. MMODL / IJN: [id number] /
[2023-03-29] MEDS: SYMBICORT 80-4.5 MCG INHALER INHALATION SCH ×2 (11:42→22:13)
[2023-03-29 12:00] LABS: Glucose,Whole Blood 166 mg/dL (70-110)
--- NOTE | 2023-03-29 12:53 | P.PN ---
Subjective Patient is seen for follow-up for acute kidney injury. Renal function has improved. Serum creatinine staying at 1.2 down from peak creatinine of 1.9 on admission. Urine output at 1.4L for 24 hours. Levo fed is off. Off of IV fluids Sitting on a bedside chair. No significant complaints today. Objective - Vital Signs Vital signs: Vital Signs Temp 99.7 F H 03/29/23 12:00 Pulse 81 03/29/23 12:00 Resp 28 H 03/29/23 12:00 BP 100/60 03/29/23 12:00 Pulse Ox 99 03/29/23 12:00 FiO2 Intake & Output 03/28/23 03/29/23 03/29/23 18:59 06:59 18:59 Intake Total 68.465 320 500 Output Total 550 850 100 Balance -481.535 -530 400 Weight 137.2 kg Intake: IV 320 60 0.9 220 60 Piperacillin-Tazobactam 3 100 .375 gm In Sodium Chloride 0.9% 100 ml @ 25 mls/hr IVPB Q8HR [facility] Rx# :[id number] Intake, IV Titration 68.465 320 Amount Norepinephrine 8 mg In 68.465 Sodium Chloride 0.9% 250 ml @ 0.03 MCG/KG/MIN 5. 635 mls/hr IV .Q24H [facility] Rx#:[id number] Piperacillin-Tazobactam 3 320 .375 gm In Sodium Chloride 0.9% 100 ml @ 25 mls/hr IVPB Q8HR [facility] Rx# :[id number] Oral 120 Output: Urine 550 850 100 Other: Voiding Method Urinal Urinal Urinal # Voids 1 - Exam Patient is awake, comfortable, in no acute distress Examination of the heart S1 and S2 Examination of the lungs bilateral breath sounds are heard Abdomen is soft obese nontender Examination lower extremity shows chronic skin changes bilaterally with erythema noted in the right lower extremity. Both legs are wrapped. HEAD INSPECTOR exam grossly intact - Labs CBC & Chem 7: 03/29/23 04:22 03/29/23 04:22 Labs: Abnormal Lab Results - Last 24 Hours (Table) 03/28/23 03/28/23 03/29/23 Range/Units 17:10 20:13 04:22 RBC 3.75 L (4.30-5.90) m/uL Hgb 10.6 L (13.0-17.5) gm/dL Hct 32.0 L (39.0-53.0) % RDW 16.1 H (11.5-15.5) % Sodium (137-145) mmol/L Carbon Dioxide (22-30) mmol/L BUN (9-20) mg/dL Glucose (74-99) mg/dL POC Glucose (mg/dL) 174 H 134 H (70-110) mg/dL Calcium (8.4-10.2) mg/dL 03/29/23 03/29/23 03/29/23 Range/Units 04:22 06:06 06:56 RBC (4.30-5.90) m/uL Hgb (13.0-17.5) gm/dL Hct (39.0-53.0) % RDW (11.5-15.5) % Sodium 131 L (137-145) mmol/L Carbon Dioxide 20 L (22-30) mmol/L BUN 27 H (9-20) mg/dL Glucose 151 H (74-99) mg/dL POC Glucose (mg/dL) 155 H 151 H (70-110) mg/dL Calcium 7.7 L (8.4-10.2) mg/dL 03/29/23 Range/Units 11:59 RBC (4.30-5.90) m/uL Hgb (13.0-17.5) gm/dL Hct (39.0-53.0) % RDW (11.5-15.5) % Sodium (137-145) mmol/L Carbon Dioxide (22-30) mmol/L BUN (9-20) mg/dL Glucose (74-99) mg/dL POC Glucose (mg/dL) 166 H (70-110) mg/dL Calcium (8.4-10.2) mg/dL Microbiology - Last 24 Hours (Table) 03/25/23 14:30 Blood Culture - Preliminary Blood 03/25/23 14:45 Blood Culture - Preliminary Blood Assessment and Plan Assessment: 1. Acute kidney injury ATN nonoliguric secondary to hypotension and underlying infection. Improving. Status post IV fluids 2. Hyponatremia secondary to hypotonic fluid, improved 3. Persistent hypoglycemia, improved, status post D10.. 4. Bilateral lower extremity cellulitis, maintained on antibiotics 5. Right lower extremity DVT, chronic with history of PE maintained on xarelto Plan: Continue off of IV fluid Continue antibiotics Repeat labs in a.m.
--- NOTE | 2023-03-29 13:09 | P.PN ---
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 Patient is admitted with worsening right leg swelling for the last 2 weeks as he explains to me with mild pain or discomfort in the area.. Also patient presents because of hypoglycemia. Patient was taken several of diabetes medications including metformin, Actos and glipizide 20 mg daily which patient was taken every day however he says that he had low appetite over the last 10 days and he was not eating well. Patient currently complaining of from 3-4/10 pain in his right leg. Patient can walk at home using a cane as he explains to me. Patient is fully awake and oriented and denies any other complaints. No chest pain or dyspnea. No new GI or urinary complaints. No headache dizziness w eakness or numbness Patient says that he was taking testosterone at home to prevent him from falling down and other male characters 04/15/2023 Patient clinically looks the same, direct but answers questions appropriately. He denies any specific pain or discomfort. He was admitted with right leg cellulitis and currently is with Zeus wrap and he had loose bowel movement 1: No abdominal pain. His blood pressure on the low side requiring midodrine 10 mg and to make her on Levophed. Thank you again at 0.06 g per KG per minute. Also he is getting normal saline at 50 mL/h. Sugars start picking up today more than 200 therefore was started and Actos. This followed now is D5 normal saline at 50 mL/h. He is on Xarelto Uriostegui history of DVT/PE. 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 Patient currently on Zosyn without edema the case. History of heart were small dose of pressors of Levophed improvement from 0.06 down to 0.03. Also he is on midodrine 10 mg 3 times a day. He is awake alert and comfortable, no new complaint compared to yesterday for the patient's site. Remains on blood thinners Xarelto for his history of right lower extremity DVT and PE. Bingo Worker has been consulted for bradycardia and echocardiogram showing severe aortic stenosis.Echocardiogram showed ejection fraction of 40-45% He is off IV fluids. Insulin controlled on insulin sliding scale. Glipizide, metformin and Actos on hold. Also Cardizem is on hold. 03/29: Patient seen and evaluated bedside. Patient is alert and oriented 3. Right proximity cellulitis. Patient was treated with IV antibiotics on Zosyn. Noted to have episode of fever infectious disease following Objective - Vital Signs Vital signs: Vital Signs Temp 99.7 F H 03/29/23 12:00 Pulse 81 03/29/23 12:00 Resp 28 H 03/29/23 12:00 BP 100/60 03/29/23 12:00 Pulse Ox 99 03/29/23 12:00 FiO2 Intake & Output 03/28/23 03/29/23 03/29/23 18:59 06:59 18:59 Intake Total 68.465 320 500 Output Total 550 850 100 Balance -481.535 -530 400 Weight 137.2 kg Intake: IV 320 60 0.9 220 60 Piperacillin-Tazobactam 3 100 .375 gm In Sodium Chloride 0.9% 100 ml @ 25 mls/hr IVPB Q8HR [facility] Rx# :[id number] Intake, IV Titration 68.465 320 Amount Norepinephrine 8 mg In 68.465 Sodium Chloride 0.9% 250 ml @ 0.03 MCG/KG/MIN 5. 635 mls/hr IV .Q24H [facility] Rx#:[id number] Piperacillin-Tazobactam 3 320 .375 gm In Sodium Chloride 0.9% 100 ml @ 25 mls/hr IVPB Q8HR [facility] Rx# :[id number] Oral 120 Output: Urine 550 850 100 Other: Voiding Method Urinal Urinal Urinal # Voids 1 - Exam PHYSICAL EXAMINATION: GENERAL: The patient is alert and oriented x3, not in any acute distress. Ill appearance HEENT: Pupils are round and equally reacting to light. EOMI. No scleral icterus. No conjunctival pallor. Normocephalic, atraumatic. No pharyngeal erythema. No thyromegaly. CARDIOVASCULAR: S1 and S2 present. No murmurs, rubs, or gallops. PULMONARY: Chest is clear to auscultation, no wheezing or crackles. ABDOMEN: Soft, nontender, nondistended, normoactive bowel sounds. No palpable organomegaly. MUSCULOSKELETAL: No joint swelling or deformity. EXTREMITIES: No cyanosis, clubbing, or pedal edema. NEUROLOGICAL: Gross neurological examination did not reveal any focal deficits. SKIN: Stasis dermatitis bilateral lower denied lotion to erythema swelling noted - Labs CBC & Chem 7: 03/29/23 04:22 03/29/23 04:22 Labs: Abnormal Lab Results - Last 24 Hours (Table) 03/28/23 03/28/23 03/29/23 Range/Units 17:10 20:13 04:22 RBC 3.75 L (4.30-5.90) m/uL Hgb 10.6 L (13.0-17.5) gm/dL Hct 32.0 L (39.0-53.0) % RDW 16.1 H (11.5-15.5) % Sodium (137-145) mmol/L Carbon Dioxide (22-30) mmol/L BUN (9-20) mg/dL Glucose (74-99) mg/dL POC Glucose (mg/dL) 174 H 134 H (70-110) mg/dL Calcium (8.4-10.2) mg/dL 03/29/23 03/29/23 03/29/23 Range/Units 04:22 06:06 06:56 RBC (4.30-5.90) m/uL Hgb (13.0-17.5) gm/dL Hct (39.0-53.0) % RDW (11.5-15.5) % Sodium 131 L (137-145) mmol/L Carbon Dioxide 20 L (22-30) mmol/L BUN 27 H (9-20) mg/dL Glucose 151 H (74-99) mg/dL POC Glucose (mg/dL) 155 H 151 H (70-110) mg/dL Calcium 7.7 L (8.4-10.2) mg/dL 03/29/23 Range/Units 11:59 RBC (4.30-5.90) m/uL Hgb (13.0-17.5) gm/dL Hct (39.0-53.0) % RDW (11.5-15.5) % Sodium (137-145) mmol/L Carbon Dioxide (22-30) mmol/L BUN (9-20) mg/dL Glucose (74-99) mg/dL POC Glucose (mg/dL) 166 H (70-110) mg/dL Calcium (8.4-10.2) mg/dL Microbiology - Last 24 Hours (Table) 03/25/23 14:30 Blood Culture - Preliminary Blood 03/25/23 14:45 Blood Culture - Preliminary Blood Assessment and Plan Assessment: Acute right leg cellulitis Septic shock Resolved Cardiomyopathy with ejection fraction 40-45% Severe aortic stenosis Diabetes mellitus, with hypoglycemia, present on admission decreased appetite secondary to above Hypertension Hyperlipidemia History of osteoarthritis Hypothyroidism History of DVT/PE on blood thinner at home Plan: In regard to light proximally cellulitis continue patient on Zosyn, infectious disease on consult, IV fluids discontinued encourage oral intake In regards to history of aortic stenosis patient seen by cardiology, episode of bradycardia continue to monitor Patient seen by critical care team while in ICU as well In regards to history of pulmonary malaise and continue patient on Neurontin Continue with blood pressure support with Midodrin In regards to diabetes mellitus continue patient on Accu-Cheks before meals and at bedtime continue sliding insulin DVT prophylaxis: Xarelto GI prophylaxis: Pepcid Prognosis is guarded
[2023-03-29] MEDS ORDERED: BENZOCAINE/MENTHOL LOZENG 1 EACH LOZENGE MUCOUS MEM PRN (15:48)
[2023-03-29 16:58] LABS: Glucose,Whole Blood 169 mg/dL (70-110)
[2023-03-29 20:24] LABS: Glucose,Whole Blood 155 mg/dL (70-110)
[2023-03-29] MEDS: ACETAMINOPHEN TAB 325 MG TAB PO PRN (20:35)
[2023-03-29] MEDS: MONTELUKAST 10 MG TAB PO SCH (20:35)
[2023-03-30 02:06] LABS: Glucose,Whole Blood 145 mg/dL (70-110)
[2023-03-30] MEDS: INSULIN ASPART (NovoLOG) 100 UNIT/ML VIAL SQ SCH ×5 (02:11→22:10)
[2023-03-30 06:06] LABS: Glucose,Whole Blood 123 mg/dL (70-110)
[2023-03-30] MEDS: LEVOTHYROXINE 100 MCG TAB PO SCH (06:44)
[2023-03-30] MEDS: MIDODRINE 5 MG TAB PO SCH ×3 (06:44→17:50)
[2023-03-30] MEDS: HYDROcodone/APAP 5-325MG 1 EACH TAB PO PRN ×2 (06:46→18:51)
[2023-03-30] MEDS: ALBUTEROL NEBULIZED 2.5 MG/3 ML INHALATION SCH ×4 (07:24→20:46)
[2023-03-30] MEDS: SYMBICORT 80-4.5 MCG INHALER INHALATION SCH ×2 (07:24→20:46)
[2023-03-30 07:50] LABS: Anisocytosis Slight; HCT 33.1 % (39.0-53.0); HGB 10.9 gm/dL (13.0-17.5); Hypochromasia Slight; MCH 28.1 pg (25.0-35.0); MCHC 32.8 g/dL (31.0-37.0); MCV 85.6 fL (80.0-100.0); Mean Platelet Volume 8.2; Platelet Count 305 k/uL (150-450); RBC 3.87 m/uL (4.30-5.90); RDW 16.1 % (11.5-15.5); WBC 18.8 k/uL (3.8-10.6)
[2023-03-30 08:01] LABS: African American GFR (CKD) 62 (>60 ml/min/1.73 sqM); Anion Gap 8 mmol/L; Blood Urea Nitrogen 27 mg/dL (9-20); Calcium 7.7 mg/dL (8.4-10.2); Carbon Dioxide 21 mmol/L (22-30); Chloride 103 mmol/L (98-107); Glucose 118 mg/dL (74-99); Non-African American GFR(CKD) 54 (>60 ml/min/1.73 sqM); Potassium 4.2 mmol/L (3.5-5.1); Sodium 132 mmol/L (137-145)
[2023-03-30] MEDS: ATORVASTATIN 10 MG TAB PO SCH (10:00)
[2023-03-30] MEDS: ACETAMINOPHEN TAB 325 MG TAB PO PRN (10:00)
[2023-03-30] MEDS: RIVAROXABAN 20 MG TAB PO SCH (10:00)
[2023-03-30] MEDS: FAMOTIDINE 20 MG/2 ML VIAL IV SCH ×2 (10:00→22:19)
[2023-03-30] MEDS: tiZANidine 4 MG TAB PO PRN (10:02)
--- NOTE | 2023-03-30 11:00 | P.PN ---
Subjective HISTORY OF PRESENT ILLNESS: This is a 77-year-old male who follows in the office with Dr. West. Patient is admitted to the hospital secondary to right lower extremity cellulitis. Patient examined this morning at the bedside. Patient denies chest pain or pressure. He denies shortness of breath. Telemetry reveals sinus mechanism. Vital signs are stable. PHYSICAL EXAM: VITAL SIGNS: Reviewed. GENERAL: Well-developed in no acute distress. NECK: Supple. No JVD or thyromegaly LUNGS: Respirations even and unlabored. Lungs essentially clear to auscultation bilaterally. HEART: Regular rate and rhythm. S1 and S2 heard. Systolic murmur noted EXTREMITIES: Normal range of motion. No clubbing or cyanosis. Peripheral pulses intact. Right lower extremity swelling and erythema noted. ASSESSMENT: Right lower extremity cellulitis Episodes of junctional rhythm and first-degree AV block History of DVT Hypotension, resolved PLAN: Continue current cardiac medications Patient is stable from a cardiac standpoint with no further inpatient recommendations We will sign off. Please reconsult if needed. Nurse practitioner note has been reviewed by physician. Signing provider agrees with the documented findings, assessment, and plan of care. Objective - Vital Signs Vital signs: Vital Signs Temp 99.9 F H 03/30/23 06:48 Pulse 97 03/30/23 06:48 Resp 19 03/30/23 06:48 BP 105/65 03/30/23 06:48 Pulse Ox 94 L 03/30/23 06:48 FiO2 Intake & Output 03/29/23 03/30/23 03/30/23 18:59 06:59 18:59 Intake Total 800 Output Total 300 250 Balance 500 -250 Intake: IV 120 0.9 120 Intake, IV Titration 320 Amount Piperacillin-Tazobactam 3 320 .375 gm In Sodium Chloride 0.9% 100 ml @ 25 mls/hr IVPB Q8HR [facility] Rx# :[id number] Oral 360 Output: Urine 300 250 Other: Voiding Method Urinal Urinal # Voids 1 2 # Bowel Movements 1 - Labs CBC & Chem 7: 03/30/23 06:56 03/30/23 06:56 Labs: Abnormal Lab Results - Last 24 Hours (Table) 03/29/23 03/29/23 03/29/23 Range/Units 11:59 16:56 20:23 WBC (3.8-10.6) k/uL RBC (4.30-5.90) m/uL Hgb (13.0-17.5) gm/dL Hct (39.0-53.0) % RDW (11.5-15.5) % Sodium (137-145) mmol/L Carbon Dioxide (22-30) mmol/L BUN (9-20) mg/dL Creatinine (0.66-1.25) mg/dL Glucose (74-99) mg/dL POC Glucose (mg/dL) 166 H 169 H 155 H (70-110) mg/dL Calcium (8.4-10.2) mg/dL 03/30/23 03/30/23 03/30/23 Range/Units 02:05 06:05 06:56 WBC 18.8 H (3.8-10.6) k/uL RBC 3.87 L (4.30-5.90) m/uL Hgb 10.9 L (13.0-17.5) gm/dL Hct 33.1 L (39.0-53.0) % RDW 16.1 H (11.5-15.5) % Sodium (137-145) mmol/L Carbon Dioxide (22-30) mmol/L BUN (9-20) mg/dL Creatinine (0.66-1.25) mg/dL Glucose (74-99) mg/dL POC Glucose (mg/dL) 145 H 123 H (70-110) mg/dL Calcium (8.4-10.2) mg/dL 03/30/23 Range/Units 06:56 WBC (3.8-10.6) k/uL RBC (4.30-5.90) m/uL Hgb (13.0-17.5) gm/dL Hct (39.0-53.0) % RDW (11.5-15.5) % Sodium 132 L (137-145) mmol/L Carbon Dioxide 21 L (22-30) mmol/L BUN 27 H (9-20) mg/dL Creatinine 1.30 H (0.66-1.25) mg/dL Glucose 118 H (74-99) mg/dL POC Glucose (mg/dL) (70-110) mg/dL Calcium 7.7 L (8.4-10.2) mg/dL
[2023-03-30 11:14] LABS: Glucose,Whole Blood 222 mg/dL (70-110)
[2023-03-30 13:33] VITALS: BMI 37.8
--- NOTE | 2023-03-30 13:54 | P.PN ---
Subjective Progress Note Date: 03/30/23 I am seeing this patient in new consultation today 03/26/2023 for persistent and refractory hypoglycemia. Patient is a 77-year-old male with past medical history significant for diabetes mellitus type 2, hypothyroidism, factor V Leyden mutation, right lower extremity DVT, pulmonary embolism, recurrent lower extremity cellulitis, hypertension, hyperlipidemia, severe persistent asthma, GERD. His primary care provider is Dr. Tatyana Mora. Patient came to the emergency room yesterday afternoon complaining of increased redness and swelling of bilateral legs, but his right lower extremity is worse. He says that he has noticed increased redness and drainage over the last 2 weeks. This has been accompanied with fevers and generalized malaise. The patient was admitted to the hospital on IV antibiotics in the form of Zosyn. While on the general medical floor, the patient was found to be profoundly hypoglycemic. This was refractory to multiple administrations of D50W. In fact, it looks like he's had over 8 amps of D50W over the last 12 hours. He has been started on a D10W infusion at 100 ML's per hour. Patient is currently sitting up in bed, on room air, in no acute distress. He is asymptomatic even when hypoglycemic. He has not received any long-acting insulin, metformin, or sulfonylureas while in the hospital. He normally takes metformin and Glipizide at home, but has not had a dose this admission. He has NovoLog sliding scale insulin ordered, but has not received any because of his hypoglycemia. Denies any liver disease, active cancer, alcoholism. Most recent CBC is unremarkable. BMP shows sodium 128, potassium 4.5, chloride 99, serum bicarb 22, BUN 41, creatinine 1.54, glucose 35. LFTs on arrival were nonelevated. Patient is hemodynamically stable, but warrants close monitoring and intensive care unit. 03/26/2023, the patient is being seen for a follow-up. He is awake and is communicating. He has chronic lymphedema in the right lower extremity with wound and cellulitis. The wound has been debrided and the surface is quite ulcerated and erythematous with some serous material draining from the wound surface. There is also extensive edema in the right lower extremity along with erythema. He remains on anticoagulation with that also. He has been diabetic and the patient was taking oral hypoglycemic medication. The patient developed severe hypoglycemia and for that reason he was hospitalized and brought into the intensive care unit and currently is on D10 which is running at 100 mL an hour. Most recent blood sugar is at 115. He is hemodynamically stable. He is on IV Zosyn. He is afebrile. Most recent BP is 93/66 and the patient has not re quired any pressors. Producing adequate amount of urine output. His white cell cause of 9.2 with a hemoglobin 11.7 and a platelet count of 159. Sodium level is at 128 and the potassium levels at 4.5, BUN is at 45 with a creatinine of 1.5. Noted the patient was hospitalized with an acute kidney injury and the creatinine was as high as 1.9 and the renal function continues to improve. Serum cortisol level is at 22. Lactic acid level was as high as 2.8 and dropped down to 1.9. Cultures have been sent and the results are still pending for now. 03/27/2023, the patient is sitting up on a chair and is calm and comfortable. Noted overnight, the patient became progressively more hypotensive. He was started on norepinephrine and currently the norepinephrine is O- dose of 0.04 mcg/kg/m. He was also started on midodrine. He is producing adequate amount of urine output. Creatinine is improving and current labs show a BUN of 33 with a creatinine of 1.39. Sodium is at 128 as the patient was receiving D5 water regarding progressive hypoglycemia. The WBC was a 12.6 with a hemoglobin of 11.3 and a platelet count of 199. The most recent blood sugars at 199. The repeat Accu-Cheks have shown adequate blood sugar control and based on that, the patient was taken off the D10 and she was switched to D5 which is running at 50 mL an hour. He is also tolerating his diet. No altered mentation. No chest pain. No shortness of breath. He is on room air oxygen. Cultures are still negative. Opticell applied to his right lower extremity in the legs are wrapped for now. 03/28/2023, the patient is still requiring low-dose of norepinephrine for blood pressure control and norepinephrine is running at 0.03 mcg/kg/m. He has borderline hypotensive secondary to sepsis and cellulitis of the right lower extremity. The patient in the being covered with IV Zosyn. Cultures from the wound came back positive for enterococcus group D, staph aureus and gram- negative bacillus. The patient also had many normal skin noe. The patient's white cell count is down to 10.8 with a hemoglobin of 10.3 and a platelet count of 188. His BUN is at 31 with a creatinine of 1.4 which is improved and the sodium level is at 1:30. His blood sugars are maintained above 100 and the patient is currently off D5 infusion. The blood cultures have been negative thus far after 48 hours growth. Echocardiogram was completed yesterday and it showed a left ventricular ejection fraction of 40-45% which was mildly impaired and there was mild septal wall thickening and the patient was also identified to have severe aortic stenosis with a gradient of 78 mmHg peak and mean gradient of 43. Is also mild aortic regurgitation. 03/29/2023, the patient is off pressors and his been of present since 11 AM yest erday. He is hemodynamically stable and is maintaining his own blood pressure. Cellulitis is improving in his right lower extremity. The patient's has no specific complaints. The LAD oxygen. Creatinine is down to 1.2. Rest of the blood work on this patient shows a WBC count of 10 with a hemoglobin of 10.6 and a platelet count of 228. Sodium level is at the 131. The patient had no further episodes of hypoglycemia. Blood sugars under adequate control. He is on a slight scale insulin coverage. I separate note, he was found to have severe aortic stenosis on his echocardiogram. Cardiology is on the case for now. As mentioned, the cellulitis of the right lower oximetry is also improvi ng. We're doing wound care. 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 No interventions were recommended this point in time. The patient has a chronic venous ulcer which is being treated On 03/30/2023, the patient is being seen for a follow-up. He was moved out of the intensive care unit yesterday. He is having diarrhea and stool was checked for C. diff. The patient has been switched to IV cefazolin. The patient has no new complaints otherwise for now. No respiratory difficulties. The white cell count of 18.8 with a hemoglobin of 10.9. BUN is at 27 with a creatinine of 1.3 and a sodium levels of 132. No shortness of breath. No chest pain. Vitals are stable and the patient is currently on room air oxygen. Objective - Vital Signs Vital signs: Vital Signs Temp 99.9 F H 03/30/23 06:48 Pulse 70 03/30/23 11:28 Resp 19 03/30/23 06:48 BP 105/65 03/30/23 06:48 Pulse Ox 94 L 03/30/23 06:48 FiO2 Intake & Output 03/29/23 03/30/23 03/30/23 18:59 06:59 18:59 Intake Total 800 Output Total 300 250 Balance 500 -250 Intake: IV 120 0.9 120 Intake, IV Titration 320 Amount Piperacillin-Tazobactam 3 320 .375 gm In Sodium Chloride 0.9% 100 ml @ 25 mls/hr IVPB Q8HR [facility] Rx# :[id number] Oral 360 Output: Urine 300 250 Other: Voiding Method Urinal Urinal # Voids 1 2 # Bowel Movements 1 - Exam GENERAL EXAM: Alert, 77-year-old white male , comfortable in no apparent distress. HEAD: Normocephalic and atraumatic EYES: Normal reaction of pupils, equal size. NOSE: Clear with pink turbinates. THROAT: No erythema or exudates. NECK: No masses, no JVD. CHEST: No chest wall deformity. LUNGS: Equal air entry with bibasilar inspiratory crackles. No wheezes, rhonchi, focal dullness. On room air. No conversational dyspnea or accessory muscle use.. CVS: S1 and S2 normal with systolic ejection murmur grade 3/6 audible murmur, regular rhythm. No extra heart sounds ABDOMEN: Obese abdomen, No hepatosplenomegaly, active bowel sounds, no guarding or rigidity. SPINE: No scoliosis or deformity SKIN: Bilateral lower extremity erythema with purulent drainage. CENTRAL NERVOUS SYSTEM: No focal deficits, tone is normal in all 4 extremities. EXTREMITIES: Right lower extremity is grossly enlarged and erythemic. Left lower extremity is also edematous, with opticell silver and the erythema is improved considerably and wrapped in Kerlix. Peripheral pulses are intact. - Labs CBC & Chem 7: 03/30/23 06:56 03/30/23 06:56 Labs: Abnormal Lab Results - Last 24 Hours (Table) 03/29/23 03/29/23 03/29/23 Range/Units 11:59 16:56 20:23 WBC (3.8-10.6) k/uL RBC (4.30-5.90) m/uL Hgb (13.0-17.5) gm/dL Hct (39.0-53.0) % RDW (11.5-15.5) % Sodium (137-145) mmol/L Carbon Dioxide (22-30) mmol/L BUN (9-20) mg/dL Creatinine (0.66-1.25) mg/dL Glucose (74-99) mg/dL POC Glucose (mg/dL) 166 H 169 H 155 H (70-110) mg/dL Calcium (8.4-10.2) mg/dL 03/30/23 03/30/23 03/30/23 Range/Units 02:05 06:05 06:56 WBC 18.8 H (3.8-10.6) k/uL RBC 3.87 L (4.30-5.90) m/uL Hgb 10.9 L (13.0-17.5) gm/dL Hct 33.1 L (39.0-53.0) % RDW 16.1 H (11.5-15.5) % Sodium (137-145) mmol/L Carbon Dioxide (22-30) mmol/L BUN (9-20) mg/dL Creatinine (0.66-1.25) mg/dL Glucose (74-99) mg/dL POC Glucose (mg/dL) 145 H 123 H (70-110) mg/dL Calcium (8.4-10.2) mg/dL 03/30/23 03/30/23 Range/Units 06:56 11:13 WBC (3.8-10.6) k/uL RBC (4.30-5.90) m/uL Hgb (13.0-17.5) gm/dL Hct (39.0-53.0) % RDW (11.5-15.5) % Sodium 132 L (137-145) mmol/L Carbon Dioxide 21 L (22-30) mmol/L BUN 27 H (9-20) mg/dL Creatinine 1.30 H (0.66-1.25) mg/dL Glucose 118 H (74-99) mg/dL POC Glucose (mg/dL) 222 H (70-110) mg/dL Calcium 7.7 L (8.4-10.2) mg/dL Assessment and Plan Plan: Diabetes mellitus and the patient was having episodes Hypoglycemia refractory to glucose replacement, improved and the patient is currently off oral hypoglycemic medication and the patient is also off the D5 infusion. He'll be offered insulin sliding scale coverage only at this point in time. No further episodes of hypoglycemia Bilateral lower extremity cellulitis, worse in the right lower extremity and the patient has a superficial wound that has been debrided and there is a wound covering the anterior aspect of the right lower extremity was erythematous and draining minimally, nonpurulent material. Cultures are polymicrobial including enterococcus group D and gram-negative and the patient is currently on IV cefazolin Diarrhea on that investigation, rule out C. diff colitis Hypotension, likely secondary to underlying sepsis, recovered and the patient is currently off pressors, the patient moved out of the intensive care unit 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, vascular surgery regarding the patient. No intervention. We 'll use lymphedema pump. We'll take care of a wound and the patient is currently on IV antibiotics. Severe aortic stenosis with a peak gradient of 78 and mean gradient of 43 mmHg History of right lower extremity DVT and pulmonary embolism anticoagulated on Xarelto, repeat ultrasound shows a chronic clot in the right lower extremity involving the common femoral vein extending to mid femoral vein. History of factor V Leyden mutation Acute kidney injury, improving, creatinine is down to 1.2 Mild hyponatremia, improving Diabetes mellitus type 2, [id number], normally managed with metformin on an outpatient basis Essential hypertension Hyperlipidemia Severe persistent asthma, stable Plan: Continue IV cefazolin Monitor diarrhea checked for C. diff Continue sliding scale insulin coverage only and avoid oral hypoglycemic medications for now Monitor the blood sugar The patient was transferred out of the intensive care unit and the patient is currently on a medical floor Obtain Doppler of the right lower extremity and this and showed a chronic DVT in the right lower extremity, vascular surgery has been consulted, no further interventions needed Check TSH and cortisol levels, levels are adequate at this point in time Continue home Symbicort inhaler with when necessary Ventolin inhaler Antibiotics per infectious disease Erythematous cellulitis of the right lower extremity is improving, he has an opticell Silver applied to the right lower extremity wound
--- NOTE | 2023-03-30 15:12 | P.PN ---
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 Patient is admitted with worsening right leg swelling for the last 2 weeks as he explains to me with mild pain or discomfort in the area.. Also patient presents because of hypoglycemia. Patient was taken several of diabetes medications including metformin, Actos and glipizide 20 mg daily which patient was taken every day however he says that he had low appetite over the last 10 days and he was not eating well. Patient currently complaining of from 3-4/10 pain in his right leg. Patient can walk at home using a cane as he explains to me. Patient is fully awake and oriented and denies any other complaints. No chest pain or dyspnea. No new GI or urinary complaints. No headache dizziness w eakness or numbness Patient says that he was taking testosterone at home to prevent him from falling down and other male characters 04/15/2023 Patient clinically looks the same, direct but answers questions appropriately. He denies any specific pain or discomfort. He was admitted with right leg cellulitis and currently is with Zeus wrap and he had loose bowel movement 1: No abdominal pain. His blood pressure on the low side requiring midodrine 10 mg and to make her on Levophed. Thank you again at 0.06 g per KG per minute. Also he is getting normal saline at 50 mL/h. Sugars start picking up today more than 200 therefore was started and Actos. This followed now is D5 normal saline at 50 mL/h. He is on Xarelto Uriostegui history of DVT/PE. 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 Patient currently on Zosyn without edema the case. History of heart were small dose of pressors of Levophed improvement from 0.06 down to 0.03. Also he is on midodrine 10 mg 3 times a day. He is awake alert and comfortable, no new complaint compared to yesterday for the patient's site. Remains on blood thinners Xarelto for his history of right lower extremity DVT and PE. Bonding Machine Operator has been consulted for bradycardia and echocardiogram showing severe aortic stenosis.Echocardiogram showed ejection fraction of 40-45% He is off IV fluids. Insulin controlled on insulin sliding scale. Glipizide, metformin and Actos on hold. Also Cardizem is on hold. 03/29: Patient seen and evaluated bedside. Patient is alert and oriented 3. Right proximity cellulitis. Patient was treated with IV antibiotics on Zosyn. Noted to have episode of fever infectious disease following 03/30: Patient seen and evaluated bedside. Patient noted to have episode of fever and elevated W BC count overnight. We'll get CT right lower extremity to rule out abscess. Patient complained of diarrhea however stool was negative for C. diff checked while in ICU Objective - Vital Signs Vital signs: Vital Signs Temp 98.2 F 03/30/23 13:26 Pulse 69 03/30/23 13:26 Resp 18 03/30/23 13:26 BP 110/69 03/30/23 13:26 Pulse Ox 93 L 03/30/23 13:26 FiO2 Intake & Output 03/29/23 03/30/23 03/30/23 18:59 06:59 18:59 Intake Total 800 Output Total 300 250 Balance 500 -250 Weight 137.2 kg Intake: IV 120 0.9 120 Intake, IV Titration 320 Amount Piperacillin-Tazobactam 3 320 .375 gm In Sodium Chloride 0.9% 100 ml @ 25 mls/hr IVPB Q8HR [facility] Rx# :[id number] Oral 360 Output: Urine 300 250 Other: Voiding Method Urinal Urinal # Voids 1 2 # Bowel Movements 1 - Exam PHYSICAL EXAMINATION: GENERAL: The patient is alert and oriented x3, not in any acute distress. Ill appearance HEENT: Pupils are round and equally reacting to light. EOMI. No scleral icterus. No conjunctival pallor. Normocephalic, atraumatic. No pharyngeal erythema. No thyromegaly. CARDIOVASCULAR: S1 and S2 present. No murmurs, rubs, or gallops. PULMONARY: Chest is clear to auscultation, no wheezing or crackles. ABDOMEN: Soft, nontender, nondistended, normoactive bowel sounds. No palpable organomegaly. MUSCULOSKELETAL: No joint swelling or deformity. EXTREMITIES: No cyanosis, clubbing, or pedal edema. NEUROLOGICAL: Gross neurological examination did not reveal any focal deficits. SKIN: Stasis dermatitis bilateral lower extremity, right loeg to swollen and - Labs CBC & Chem 7: 03/30/23 06:56 03/30/23 06:56 Labs: Abnormal Lab Results - Last 24 Hours (Table) 03/29/23 03/29/23 03/30/23 Range/Units 16:56 20:23 02:05 WBC (3.8-10.6) k/uL RBC (4.30-5.90) m/uL Hgb (13.0-17.5) gm/dL Hct (39.0-53.0) % RDW (11.5-15.5) % Sodium (137-145) mmol/L Carbon Dioxide (22-30) mmol/L BUN (9-20) mg/dL Creatinine (0.66-1.25) mg/dL Glucose (74-99) mg/dL POC Glucose (mg/dL) 169 H 155 H 145 H (70-110) mg/dL Calcium (8.4-10.2) mg/dL 03/30/23 03/30/23 03/30/23 Range/Units 06:05 06:56 06:56 WBC 18.8 H (3.8-10.6) k/uL RBC 3.87 L (4.30-5.90) m/uL Hgb 10.9 L (13.0-17.5) gm/dL Hct 33.1 L (39.0-53.0) % RDW 16.1 H (11.5-15.5) % Sodium 132 L (137-145) mmol/L Carbon Dioxide 21 L (22-30) mmol/L BUN 27 H (9-20) mg/dL Creatinine 1.30 H (0.66-1.25) mg/dL Glucose 118 H (74-99) mg/dL POC Glucose (mg/dL) 123 H (70-110) mg/dL Calcium 7.7 L (8.4-10.2) mg/dL 03/30/23 Range/Units 11:13 WBC (3.8-10.6) k/uL RBC (4.30-5.90) m/uL Hgb (13.0-17.5) gm/dL Hct (39.0-53.0) % RDW (11.5-15.5) % Sodium (137-145) mmol/L Carbon Dioxide (22-30) mmol/L BUN (9-20) mg/dL Creatinine (0.66-1.25) mg/dL Glucose (74-99) mg/dL POC Glucose (mg/dL) 222 H (70-110) mg/dL Calcium (8.4-10.2) mg/dL Assessment and Plan Assessment: Acute right leg cellulitis Septic shock Resolved Cardiomyopathy with ejection fraction 40-45% Severe aortic stenosis Diabetes mellitus, with hypoglycemia, present on admission decreased appetite secondary to above Hypertension Hyperlipidemia History of osteoarthritis Hypothyroidism History of DVT/PE on blood thinner at home Plan: In regard to RLE cellulitis > patient was on IV Zosyn transition to cefazolin by infectious disease, CT right lower extremity ordered In regards to sepsis, patient was in intensive care unit resuscitated and transferred to general medical floor. / noted to have fever repeat blood cultures ordered In regards to history of aortic stenosis patient seen by cardiology, episode of bradycardia continue to monitor In regards to history of pulmonary embolism, continue Xarelto Continue with blood pressure support with Midodrin In regards to diabetes mellitus continue patient on Accu-Cheks before meals and at bedtime continue sliding insulin DVT prophylaxis: Xarelto GI prophylaxis: Pepcid Prognosis is guarded
[2023-03-30 16:50] LABS: Glucose,Whole Blood 161 mg/dL (70-110)
[2023-03-30] MEDS: CHOLESTYRAMINE (WITH SUGAR) 4 GM PACKET PO SCH (18:14)
[2023-03-30 20:27] LABS: Glucose,Whole Blood 141 mg/dL (70-110)
[2023-03-30] MEDS: MONTELUKAST 10 MG TAB PO SCH (22:20)
--- NOTE | 2023-03-31 00:10 | P.PN ---
Subjective Patient is seen for follow-up for acute kidney injury. Renal function has improved. Serum creatinine staying at 1.3 down from peak creatinine of 1.9 on admission. Off of pressors. Off of IV fluids Sitting on a bedside chair. No significant complaints today. Objective - Vital Signs Vital signs: Vital Signs Temp 99.3 F 03/30/23 18:43 Pulse 80 03/30/23 20:59 Resp 17 03/30/23 18:43 BP 128/83 03/30/23 18:43 Pulse Ox 91 L 03/30/23 18:43 FiO2 Intake & Output 03/30/23 03/30/23 03/31/23 06:59 18:59 06:59 Output Total 250 Balance -250 Weight 137.2 kg Output: Urine 250 Other: Voiding Method Urinal # Voids 2 3 - Exam Patient is awake, comfortable, in no acute distress Examination of the heart S1 and S2 Examination of the lungs bilateral breath sounds are heard Abdomen is soft obese nontender Examination lower extremity shows chronic skin changes bilaterally with erythema noted in the right lower extremity. Both legs are wrapped. SIEVE MAKER exam grossly intact - Labs CBC & Chem 7: 03/30/23 06:56 03/30/23 06:56 Labs: Abnormal Lab Results - Last 24 Hours (Table) 03/30/23 03/30/23 03/30/23 Range/Units 02:05 06:05 06:56 WBC 18.8 H (3.8-10.6) k/uL RBC 3.87 L (4.30-5.90) m/uL Hgb 10.9 L (13.0-17.5) gm/dL Hct 33.1 L (39.0-53.0) % RDW 16.1 H (11.5-15.5) % Sodium (137-145) mmol/L Carbon Dioxide (22-30) mmol/L BUN (9-20) mg/dL Creatinine (0.66-1.25) mg/dL Glucose (74-99) mg/dL POC Glucose (mg/dL) 145 H 123 H (70-110) mg/dL Calcium (8.4-10.2) mg/dL 03/30/23 03/30/23 03/30/23 Range/Units 06:56 11:13 16:48 WBC (3.8-10.6) k/uL RBC (4.30-5.90) m/uL Hgb (13.0-17.5) gm/dL Hct (39.0-53.0) % RDW (11.5-15.5) % Sodium 132 L (137-145) mmol/L Carbon Dioxide 21 L (22-30) mmol/L BUN 27 H (9-20) mg/dL Creatinine 1.30 H (0.66-1.25) mg/dL Glucose 118 H (74-99) mg/dL POC Glucose (mg/dL) 222 H 161 H (70-110) mg/dL Calcium 7.7 L (8.4-10.2) mg/dL 03/30/23 Range/Units 20:26 WBC (3.8-10.6) k/uL RBC (4.30-5.90) m/uL Hgb (13.0-17.5) gm/dL Hct (39.0-53.0) % RDW (11.5-15.5) % Sodium (137-145) mmol/L Carbon Dioxide (22-30) mmol/L BUN (9-20) mg/dL Creatinine (0.66-1.25) mg/dL Glucose (74-99) mg/dL POC Glucose (mg/dL) 141 H (70-110) mg/dL Calcium (8.4-10.2) mg/dL Assessment and Plan Assessment: 1. Acute kidney injury ATN nonoliguric secondary to hypotension and underlying infection. Improving. Status post IV fluids 2. Hyponatremia secondary to hypotonic fluid, improved 3. Persistent hypoglycemia, improved, status post D10.. 4. Bilateral lower extremity cellulitis, maintained on antibiotics 5. Right lower extremity DVT, chronic with history of PE maintained on xarelto Plan: Continue off of IV fluid Continue antibiotics Repeat labs in a.m.
[2023-03-31] MEDS: ACETAMINOPHEN TAB 325 MG TAB PO PRN (00:25)
[2023-03-31] MEDS: tiZANidine 4 MG TAB PO PRN (01:10)
[2023-03-31 01:55] LABS: Glucose,Whole Blood 125 mg/dL (70-110)
[2023-03-31] MEDS: INSULIN ASPART (NovoLOG) 100 UNIT/ML VIAL SQ SCH ×5 (02:32→22:49)
[2023-03-31] MEDS: LEVOTHYROXINE 100 MCG TAB PO SCH (05:51)
[2023-03-31 05:54] LABS: Glucose,Whole Blood 130 mg/dL (70-110)
[2023-03-31] MEDS: MIDODRINE 5 MG TAB PO SCH ×3 (06:44→17:29)
[2023-03-31 06:57] LABS: Anisocytosis Slight; HCT 34.4 % (39.0-53.0); HGB 11.3 gm/dL (13.0-17.5); MCH 27.8 pg (25.0-35.0); MCV 84.2 fL (80.0-100.0); Mean Platelet Volume 8.7; RBC 4.08 m/uL (4.30-5.90); RDW 16.2 % (11.5-15.5); WBC 26.8 k/uL (3.8-10.6)
[2023-03-31] MEDS: ALBUTEROL NEBULIZED 2.5 MG/3 ML INHALATION SCH ×4 (07:28→21:37)
[2023-03-31] MEDS: SYMBICORT 80-4.5 MCG INHALER INHALATION SCH ×2 (07:29→21:37)
[2023-03-31 07:40] LABS: Platelet Count 335 k/uL (150-450)
[2023-03-31 07:43] LABS: African American GFR (CKD) 82 (>60 ml/min/1.73 sqM); Anion Gap 9 mmol/L; Blood Urea Nitrogen 27 mg/dL (9-20); Calcium 7.6 mg/dL (8.4-10.2); Carbon Dioxide 19 mmol/L (22-30); Chloride 104 mmol/L (98-107); Glucose 112 mg/dL (74-99); Non-African American GFR(CKD) 71 (>60 ml/min/1.73 sqM); Potassium 4.5 mmol/L (3.5-5.1); Sodium 132 mmol/L (137-145)
[2023-03-31] MEDS: RIVAROXABAN 20 MG TAB PO SCH (09:01)
[2023-03-31] MEDS: ATORVASTATIN 10 MG TAB PO SCH (09:01)
[2023-03-31] MEDS: FAMOTIDINE 20 MG/2 ML VIAL IV SCH ×2 (11:10→20:53)
[2023-03-31] MEDS: PIPERACILLIN-TAZOBACTAM 3.375 GM in SODIUM CHLORIDE 0.9% 100 ML IVPB SCH ×2 (11:10→17:38)
[2023-03-31] MEDS: CHOLESTYRAMINE (WITH SUGAR) 4 GM PACKET PO SCH ×2 (11:11→17:29)
[2023-03-31] MEDS: HYDROcodone/APAP 5-325MG 1 EACH TAB PO PRN (11:15)
[2023-03-31] MEDS: HYDROmorphone 0.5 MG/0.5 ML SYRINGE IVP PRN ×3 (11:42→23:11)
[2023-03-31 12:00] LABS: Glucose,Whole Blood 168 mg/dL (70-110)
[2023-03-31] MEDS ORDERED: LIDOCAINE 1% INJ 10MG/ML (20 ML MDV) ONE (13:40)
--- NOTE | 2023-03-31 14:10 | P.PN ---
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 Patient is admitted with worsening right leg swelling for the last 2 weeks as he explains to me with mild pain or discomfort in the area.. Also patient presents because of hypoglycemia. Patient was taken several of diabetes medications including metformin, Actos and glipizide 20 mg daily which patient was taken every day however he says that he had low appetite over the last 10 days and he was not eating well. Patient currently complaining of from 3-4/10 pain in his right leg. Patient can walk at home using a cane as he explains to me. Patient is fully awake and oriented and denies any other complaints. No chest pain or dyspnea. No new GI or urinary complaints. No headache dizziness w eakness or numbness Patient says that he was taking testosterone at home to prevent him from falling down and other male characters 04/15/2023 Patient clinically looks the same, direct but answers questions appropriately. He denies any specific pain or discomfort. He was admitted with right leg cellulitis and currently is with Zeus wrap and he had loose bowel movement 1: No abdominal pain. His blood pressure on the low side requiring midodrine 10 mg and to make her on Levophed. Thank you again at 0.06 g per KG per minute. Also he is getting normal saline at 50 mL/h. Sugars start picking up today more than 200 therefore was started and Actos. This followed now is D5 normal saline at 50 mL/h. He is on Xarelto Uriostegui history of DVT/PE. 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 Patient currently on Zosyn without edema the case. History of heart were small dose of pressors of Levophed improvement from 0.06 down to 0.03. Also he is on midodrine 10 mg 3 times a day. He is awake alert and comfortable, no new complaint compared to yesterday for the patient's site. Remains on blood thinners Xarelto for his history of right lower extremity DVT and PE. Compensation Director has been consulted for bradycardia and echocardiogram showing severe aortic stenosis.Echocardiogram showed ejection fraction of 40-45% He is off IV fluids. Insulin controlled on insulin sliding scale. Glipizide, metformin and Actos on hold. Also Cardizem is on hold. 03/29: Patient seen and evaluated bedside. Patient is alert and oriented 3. Right proximity cellulitis. Patient was treated with IV antibiotics on Zosyn. Noted to have episode of fever infectious disease following 03/30: Patient seen and evaluated bedside. Patient noted to have episode of fever and elevated W BC count overnight. We'll get CT right lower extremity to rule out abscess. Patient complained of diarrhea however stool was negative for C. diff checked while in ICU 03/31: Patient seen and evaluated bedside. Patient does complain of right lower extremity pain. Right foot exam does raise suspicion for abscess. CT right l ower extremity completed antibiotic escalated to Zosyn and doxycycline. General surgery consulted. Xarelto discontinued in anticipation of incision and drainage Objective - Vital Signs Vital signs: Vital Signs Temp 98.5 F 03/31/23 07:21 Pulse 80 03/31/23 07:38 Resp 18 03/31/23 07:21 BP 146/62 03/31/23 07:21 Pulse Ox 96 03/31/23 07:21 FiO2 Intake & Output 03/30/23 03/31/23 03/31/23 18:59 06:59 18:59 Output Total 250 200 Balance -250 -200 Weight 137.2 kg Output: Urine 250 200 Other: Voiding Method Urinal # Voids 3 2 - Exam PHYSICAL EXAMINATION: GENERAL: The patient is alert and oriented x3, not in any acute distress. Ill appearance HEENT: Pupils are round and equally reacting to light. EOMI. No scleral icterus. No conjunctival pallor. Normocephalic, atraumatic. No pharyngeal erythema. No thyromegaly. CARDIOVASCULAR: S1 and S2 present. No murmurs, rubs, or gallops. PULMONARY: Chest is clear to auscultation, no wheezing or crackles. ABDOMEN: Soft, nontender, nondistended, normoactive bowel sounds. No palpable organomegaly. MUSCULOSKELETAL: No joint swelling or deformity. EXTREMITIES: No cyanosis, clubbing, or pedal edema. NEUROLOGICAL: Gross neurological examination did not reveal any focal deficits. SKIN: Stasis dermatitis bilateral lower extremity, right leg swollen, dorsal part of right foot swollen, bruised, hematoma noted - Labs CBC & Chem 7: 03/31/23 06:34 03/31/23 06:34 Labs: Abnormal Lab Results - Last 24 Hours (Table) 03/30/23 03/30/23 03/31/23 Range/Units 16:48 20:26 01:52 WBC (3.8-10.6) k/uL RBC (4.30-5.90) m/uL Hgb (13.0-17.5) gm/dL Hct (39.0-53.0) % RDW (11.5-15.5) % Sodium (137-145) mmol/L Carbon Dioxide (22-30) mmol/L BUN (9-20) mg/dL Glucose (74-99) mg/dL POC Glucose (mg/dL) 161 H 141 H 125 H (70-110) mg/dL Calcium (8.4-10.2) mg/dL 03/31/23 03/31/23 03/31/23 Range/Units 05:52 06:34 06:34 WBC 26.8 H (3.8-10.6) k/uL RBC 4.08 L (4.30-5.90) m/uL Hgb 11.3 L (13.0-17.5) gm/dL Hct 34.4 L (39.0-53.0) % RDW 16.2 H (11.5-15.5) % Sodium 132 L (137-145) mmol/L Carbon Dioxide 19 L (22-30) mmol/L BUN 27 H (9-20) mg/dL Glucose 112 H (74-99) mg/dL POC Glucose (mg/dL) 130 H (70-110) mg/dL Calcium 7.6 L (8.4-10.2) mg/dL 03/31/23 Range/Units 11:49 WBC (3.8-10.6) k/uL RBC (4.30-5.90) m/uL Hgb (13.0-17.5) gm/dL Hct (39.0-53.0) % RDW (11.5-15.5) % Sodium (137-145) mmol/L Carbon Dioxide (22-30) mmol/L BUN (9-20) mg/dL Glucose (74-99) mg/dL POC Glucose (mg/dL) 168 H (70-110) mg/dL Calcium (8.4-10.2) mg/dL Microbiology - Last 24 Hours (Table) 03/25/23 14:30 Blood Culture - Final Blood 03/25/23 14:45 Blood Culture - Final Blood Assessment and Plan Assessment: Acute right leg cellulitis, with abscess Septic shock Resolved Cardiomyopathy with ejection fraction 40-45% Severe aortic stenosis Diabetes mellitus, with hypoglycemia, present on admission decreased appetite secondary to above Hypertension Hyperlipidemia History of osteoarthritis Hypothyroidism History of DVT/PE on Xarelto prior to this admission Plan: In regard to RLE cellulitis > patient transition back to IV Zosyn, CT right lower extremity ordered, general surgery consulted, continue IV doxycycline In regards to sepsis, patient was in intensive care unit resuscitated and transferred to general medical floor. 03/30 noted to have fever repeat blood cultures ordered In regards to history of aortic stenosis patient seen by cardiology, episode of bradycardia continue to monitor In regards to history of pulmonary embolism, Discontinued Xarelto 03/31 >> in anticipation of surgical intervention Continue with blood pressure support with Midodrine In regards to diabetes mellitus continue patient on Accu-Cheks before meals and at bedtime continue sliding insulin DVT prophylaxis: Xarelto placed on hold GI prophylaxis: Pepcid
--- NOTE | 2023-03-31 14:29 | P.PCN ---
Description of Procedure: Preop diagnoses right foot some skin necrosis with some fluctuation could be hematoma could be abscess measurement is 2 x 2 CM Postoperative diagnoses is skin necrosis, fat necrosis measurement is 3 x 2 x 1 cm Procedure patient has skin necrosis with some fluctuation patient also history of lymphedema 1% lidocaine was infiltrated first foot foot was prepped and draped applied sterile manner using knife we did elect incision was made deepened through skin and the fact we noticed there was a skin necrosis and also fat necrosis which was removed there were some drainage also noted we took the deep culture sent for Deep culture fascia was intact wound was irrigated with saline Aquacel silver placed a pressure dressing applied patient are to the procedure well plan is we will change her dressing on Sunday one pillow elevation patient is an IV antibiotic under care of infectious disease
[2023-03-31] MEDS: DOXYCYCLINE 100 MG in SODIUM CHLORIDE 0.9% 100 ML IVPB SCH ×2 (14:39→20:53)
--- NOTE | 2023-03-31 16:21 | P.PN ---
Subjective Progress Note Date: 03/31/23 I am seeing this patient in new consultation today 03/26/2023 for persistent and refractory hypoglycemia. Patient is a 77-year-old male with past medical history significant for diabetes mellitus type 2, hypothyroidism, factor V Leyden mutation, right lower extremity DVT, pulmonary embolism, recurrent lower extremity cellulitis, hypertension, hyperlipidemia, severe persistent asthma, GERD. His primary care provider is Dr. Tatyana Mora. Patient came to the emergency room yesterday afternoon complaining of increased redness and swelling of bilateral legs, but his right lower extremity is worse. He says that he has noticed increased redness and drainage over the last 2 weeks. This has been accompanied with fevers and generalized malaise. The patient was admitted to the hospital on IV antibiotics in the form of Zosyn. While on the general medical floor, the patient was found to be profoundly hypoglycemic. This was refractory to multiple administrations of D50W. In fact, it looks like he's had over 8 amps of D50W over the last 12 hours. He has been started on a D10W infusion at 100 ML's per hour. Patient is currently sitting up in bed, on room air, in no acute distress. He is asymptomatic even when hypoglycemic. He has not received any long-acting insulin, metformin, or sulfonylureas while in the hospital. He normally takes metformin and Glipizide at home, but has not had a dose this admission. He has NovoLog sliding scale insulin ordered, but has not received any because of his hypoglycemia. Denies any liver disease, active cancer, alcoholism. Most recent CBC is unremarkable. BMP shows sodium 128, potassium 4.5, chloride 99, serum bicarb 22, BUN 41, creatinine 1.54, glucose 35. LFTs on arrival were nonelevated. Patient is hemodynamically stable, but warrants close monitoring and intensive care unit. 03/26/2023, the patient is being seen for a follow-up. He is awake and is communicating. He has chronic lymphedema in the right lower extremity with wound and cellulitis. The wound has been debrided and the surface is quite ulcerated and erythematous with some serous material draining from the wound surface. There is also extensive edema in the right lower extremity along with erythema. He remains on anticoagulation with that also. He has been diabetic and the patient was taking oral hypoglycemic medication. The patient developed severe hypoglycemia and for that reason he was hospitalized and brought into the intensive care unit and currently is on D10 which is running at 100 mL an hour. Most recent blood sugar is at 115. He is hemodynamically stable. He is on IV Zosyn. He is afebrile. Most recent BP is 93/66 and the patient has not re quired any pressors. Producing adequate amount of urine output. His white cell cause of 9.2 with a hemoglobin 11.7 and a platelet count of 159. Sodium level is at 128 and the potassium levels at 4.5, BUN is at 45 with a creatinine of 1.5. Noted the patient was hospitalized with an acute kidney injury and the creatinine was as high as 1.9 and the renal function continues to improve. Serum cortisol level is at 22. Lactic acid level was as high as 2.8 and dropped down to 1.9. Cultures have been sent and the results are still pending for now. 03/27/2023, the patient is sitting up on a chair and is calm and comfortable. Noted overnight, the patient became progressively more hypotensive. He was started on norepinephrine and currently the norepinephrine is O- dose of 0.04 mcg/kg/m. He was also started on midodrine. He is producing adequate amount of urine output. Creatinine is improving and current labs show a BUN of 33 with a creatinine of 1.39. Sodium is at 128 as the patient was receiving D5 water regarding progressive hypoglycemia. The WBC was a 12.6 with a hemoglobin of 11.3 and a platelet count of 199. The most recent blood sugars at 199. The repeat Accu-Cheks have shown adequate blood sugar control and based on that, the patient was taken off the D10 and she was switched to D5 which is running at 50 mL an hour. He is also tolerating his diet. No altered mentation. No chest pain. No shortness of breath. He is on room air oxygen. Cultures are still negative. Opticell applied to his right lower extremity in the legs are wrapped for now. 03/28/2023, the patient is still requiring low-dose of norepinephrine for blood pressure control and norepinephrine is running at 0.03 mcg/kg/m. He has borderline hypotensive secondary to sepsis and cellulitis of the right lower extremity. The patient in the being covered with IV Zosyn. Cultures from the wound came back positive for enterococcus group D, staph aureus and gram- negative bacillus. The patient also had many normal skin noe. The patient's white cell count is down to 10.8 with a hemoglobin of 10.3 and a platelet count of 188. His BUN is at 31 with a creatinine of 1.4 which is improved and the sodium level is at 1:30. His blood sugars are maintained above 100 and the patient is currently off D5 infusion. The blood cultures have been negative thus far after 48 hours growth. Echocardiogram was completed yesterday and it showed a left ventricular ejection fraction of 40-45% which was mildly impaired and there was mild septal wall thickening and the patient was also identified to have severe aortic stenosis with a gradient of 78 mmHg peak and mean gradient of 43. Is also mild aortic regurgitation. 03/29/2023, the patient is off pressors and his been of present since 11 AM yest erday. He is hemodynamically stable and is maintaining his own blood pressure. Cellulitis is improving in his right lower extremity. The patient's has no specific complaints. The LAD oxygen. Creatinine is down to 1.2. Rest of the blood work on this patient shows a WBC count of 10 with a hemoglobin of 10.6 and a platelet count of 228. Sodium level is at the 131. The patient had no further episodes of hypoglycemia. Blood sugars under adequate control. He is on a slight scale insulin coverage. I separate note, he was found to have severe aortic stenosis on his echocardiogram. Cardiology is on the case for now. As mentioned, the cellulitis of the right lower oximetry is also improvi ng. We're doing wound care. 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 No interventions were recommended this point in time. The patient has a chronic venous ulcer which is being treated On 03/30/2023, the patient is being seen for a follow-up. He was moved out of the intensive care unit yesterday. He is having diarrhea and stool was checked for C. diff. The patient has been switched to IV cefazolin. The patient has no new complaints otherwise for now. No respiratory difficulties. The white cell count of 18.8 with a hemoglobin of 10.9. BUN is at 27 with a creatinine of 1.3 and a sodium levels of 132. No shortness of breath. No chest pain. Vitals are stable and the patient is currently on room air oxygen. On today's evaluation of 03/31/2023, the patient remains on the medical floor. The patient was transferred out of the intensive care unit. He has severe aortic stenosis the also was hypotensive due to sepsis and cellulitis and he also had a skin wound/necrosis and his right lower extremity. The patient was seen by vascular surgery and the patient underwent debridement. Deep tissue culture was also taken. The patient's white cell count normalized and is up to 26 and the patient was placed back on IV Zosyn. Hemoglobin stable at 11.3. BUN is at 27 with a creatinine of 1 and a sodium level is at 132. No episodes of hypoglycemia this point in time. The patient is onthe coverage and oral hypoglycemic medications has been held. On a separate note, the patient was also having diarrhea. Stool for C. diff has been negative. Objective - Vital Signs Vital signs: Vital Signs Temp 98.5 F 03/31/23 07:21 Pulse 80 03/31/23 07:38 Resp 18 03/31/23 07:21 BP 146/62 03/31/23 07:21 Pulse Ox 96 03/31/23 07:21 FiO2 Intake & Output 03/30/23 03/31/23 03/31/23 18:59 06:59 18:59 Output Total 250 200 Balance -250 -200 Weight 137.2 kg Output: Urine 250 200 Other: Voiding Method Urinal # Voids 3 2 - Exam GENERAL EXAM: Alert, 77-year-old white male , comfortable in no apparent distress. HEAD: Normocephalic and atraumatic EYES: Normal reaction of pupils, equal size. NOSE: Clear with pink turbinates. THROAT: No erythema or exudates. NECK: No masses, no JVD. CHEST: No chest wall deformity. LUNGS: Equal air entry with bibasilar inspiratory crackles. No wheezes, rhonchi, focal dullness. On room air. No conversational dyspnea or accessory muscle use.. CVS: S1 and S2 normal with systolic ejection murmur grade 3/6 audible murmur, regular rhythm. No extra heart sounds ABDOMEN: Obese abdomen, No hepatosplenomegaly, active bowel sounds, no guarding or rigidity. SPINE: No scoliosis or deformity SKIN: Bilateral lower extremity erythema with purulent drainage. CENTRAL NERVOUS SYSTEM: No focal deficits, tone is normal in all 4 extremities. EXTREMITIES: Right lower extremity is grossly enlarged and erythemic. Left lower extremity is also edematous, with opticell silver and the erythema is improved considerably and wrapped in Kerlix. Peripheral pulses are intact. - Labs CBC & Chem 7: 03/31/23 06:34 03/31/23 06:34 Labs: Abnormal Lab Results - Last 24 Hours (Table) 03/30/23 03/30/23 03/30/23 Range/Units 11:13 16:48 20:26 WBC (3.8-10.6) k/uL RBC (4.30-5.90) m/uL Hgb (13.0-17.5) gm/dL Hct (39.0-53.0) % RDW (11.5-15.5) % Sodium (137-145) mmol/L Carbon Dioxide (22-30) mmol/L BUN (9-20) mg/dL Glucose (74-99) mg/dL POC Glucose (mg/dL) 222 H 161 H 141 H (70-110) mg/dL Calcium (8.4-10.2) mg/dL 03/31/23 03/31/23 03/31/23 Range/Units 01:52 05:52 06:34 WBC 26.8 H (3.8-10.6) k/uL RBC 4.08 L (4.30-5.90) m/uL Hgb 11.3 L (13.0-17.5) gm/dL Hct 34.4 L (39.0-53.0) % RDW 16.2 H (11.5-15.5) % Sodium (137-145) mmol/L Carbon Dioxide (22-30) mmol/L BUN (9-20) mg/dL Glucose (74-99) mg/dL POC Glucose (mg/dL) 125 H 130 H (70-110) mg/dL Calcium (8.4-10.2) mg/dL 03/31/23 Range/Units 06:34 WBC (3.8-10.6) k/uL RBC (4.30-5.90) m/uL Hgb (13.0-17.5) gm/dL Hct (39.0-53.0) % RDW (11.5-15.5) % Sodium 132 L (137-145) mmol/L Carbon Dioxide 19 L (22-30) mmol/L BUN 27 H (9-20) mg/dL Glucose 112 H (74-99) mg/dL POC Glucose (mg/dL) (70-110) mg/dL Calcium 7.6 L (8.4-10.2) mg/dL Microbiology - Last 24 Hours (Table) 03/25/23 14:30 Blood Culture - Final Blood 03/25/23 14:45 Blood Culture - Final Blood Assessment and Plan Plan: Diabetes mellitus and the patient was having episodes Hypoglycemia refractory to glucose replacement, improved and the patient is currently off oral hypoglycemic medication and the patient is also off the D5 infusion. He'll be offered insulin sliding scale coverage only at this point in time. No further episodes of hypoglycemia Bilateral lower extremity cellulitis, worse in the right lower extremity and the patient has a superficial wound that has been debrided and there is a wound covering the anterior aspect of the right lower extremity was erythematous and draining minimally, nonpurulent material. Cultures are polymicrobial including enterococcus group D and gram-negative and the patient is currently on IV cefazolin. Based on that recently rise in the white cell count, the patient was switched back to IV Zosyn. Acute leukocytosis Diarrhea , stool for C. diff toxin has been negative Hypotension, likely secondary to underlying sepsis, recovered and the patient is currently off pressors, the patient moved out of the intensive care unit 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, vascular surgery regarding the patient. No intervention. We'll use lymphedema pump. We'll take care of a wound and the patient is currently on IV antibiotics. Severe aortic stenosis with a peak gradient of 78 and mean gradient of 43 mmHg History of right lower extremity DVT and pulmonary embolism anticoagulated on Xarelto, repeat ultrasound shows a chronic clot in the right lower extremity involving the common femoral vein extending to mid femoral vein. History of factor V Leyden mutation Acute kidney injury, improved Mild hyponatremia, improving Diabetes mellitus type 2, [id number], normally managed with metformin on an outpatient basis Essential hypertension Hyperlipidemia Severe persistent asthma, stable Plan: Continue IV IV Zosyn The lower extremity wound has been debrided and deep tissue cultures were taken Stool for C. 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
[2023-03-31 16:49] LABS: Glucose,Whole Blood 184 mg/dL (70-110)
[2023-03-31] MEDS: MONTELUKAST 10 MG TAB PO SCH (20:53)
[2023-03-31 21:06] LABS: Glucose,Whole Blood 146 mg/dL (70-110)
--- NOTE | 2023-03-31 22:29 | CT ---
EXAMINATION TYPE: CT lower extremity RT wo con DATE OF EXAM: 03/31/2023 COMPARISON: CT abdomen pelvis 05/16/2022 HISTORY: 77-year-old male cellulitis, rule out abscess, right leg pain TECHNIQUE: Contiguous axial scanning of the right lower extremity without IV contrast. Coronal and sa gittal reconstructions performed. CT DLP: 1780.2 mGycm Automated exposure control for dose reduction was used. FINDINGS: There is marked generalized anasarca change. Some presacral edema is also present. Prostatomegaly at 5.0 cm wide. Mild degenerative change of the right hip. Right external iliac chain lymphadenopathy measuring up to 5.2 x 2.9 cm. Upper right femoral chain ly mphadenopathy measuring up to 3.9 cm. These changes have increased compared to 05/16/2022. Severe generalized soft tissue swelling throughout the lower extremity down into the foot. More confl uent areas of edema especially along the superficial fascia in some areas. No edema seen along the deeper fascial planes. No soft tissue air is identified. Assessment for abscess is limited by the lack of IV contrast. No obvious abnormal fluid collection is identified. Skin irregularity throughout the calf could represent superficial ulcerations are changes relating to the severe edema. Soft tissue calcifications in the subcutaneous adipose layer especially mid to dis kristen leg may reflect chronic venous stasis changes or chronic cellulitis. No underlying periostitis or osteolysis. IMPRESSION: SEVERE GENERALIZED SUBCUTANEOUS SOFT TISSUE SWELLING THROUGHOUT THE RIGHT LOWER EXTREMITY DOWN INTO T HE FOOT. CORRELATE FOR GENERALIZED SEVERE SOFT TISSUE EDEMA AND/OR CELLULITIS. ABNORMAL UPPER FEMORAL CHAIN AND RIGHT EXTERNAL ILIAC LYMPHADENOPATHY MEASURING UP TO 5.2 CM, ENLARGING FROM 05/16/2022. COR RELATE WITH PHYSICAL EXAM FINDINGS. NODES MAY BE REACTIVE. IF SUSPICIOUS CLINICAL FEATURES, TISSUE SA MPLING CAN BE CONSIDERED.
[2023-04-01 01:48] LABS: Glucose,Whole Blood 153 mg/dL (70-110)
[2023-04-01] MEDS: INSULIN ASPART (NovoLOG) 100 UNIT/ML VIAL SQ SCH ×5 (02:16→22:05)
[2023-04-01] MEDS: PIPERACILLIN-TAZOBACTAM 3.375 GM in SODIUM CHLORIDE 0.9% 100 ML IVPB SCH ×3 (02:16→18:01)
[2023-04-01] MEDS: HYDROcodone/APAP 5-325MG 1 EACH TAB PO PRN ×2 (04:59→22:05)
[2023-04-01 06:02] LABS: Glucose,Whole Blood 157 mg/dL (70-110)
[2023-04-01] MEDS: LEVOTHYROXINE 100 MCG TAB PO SCH (06:49)
[2023-04-01] MEDS: ALBUTEROL NEBULIZED 2.5 MG/3 ML INHALATION SCH ×4 (07:43→21:02)
[2023-04-01] MEDS: MIDODRINE 5 MG TAB PO SCH ×3 (07:52→18:01)
[2023-04-01] MEDS: SYMBICORT 80-4.5 MCG INHALER INHALATION SCH ×2 (07:52→21:02)
[2023-04-01] MEDS: DOXYCYCLINE 100 MG in SODIUM CHLORIDE 0.9% 100 ML IVPB SCH (07:54)
[2023-04-01] MEDS: ATORVASTATIN 10 MG TAB PO SCH (07:56)
[2023-04-01 08:59] LABS: HCT 31.3 % (39.6-50.0); HGB 10.1 d/dL (13.0-17.0); MCH 26.3 pg (27.0-32.0); MCHC 32.3 d/dL (32.0-37.0); MCV 81.5 FL (80.0-97.0); Mean Platelet Volume 9.6 FL (9.5-12.2); NRBC Per 100 WBC 0.02 X 10*3/uL (0.00-0.01); Platelet Count 417 X 10*3/uL (140-440); RBC 3.84 X 10*6/uL (4.40-5.60); RDW 16.8 % (11.5-14.5); WBC 26.32 X 10*3/uL (4.50-10.00)
[2023-04-01 09:12] LABS: BUN/Creat Ratio 19.73 Ratio (12.00-20.00); Blood Urea Nitrogen 21.7 mg/dL (9.0-27.0); Carbon Dioxide 20.4 mmol/L (21.6-31.8); Chloride 102 mmol/L (96-109); Creatine Kinase 40 U/L (35-257); Glucose 134 mg/dL (70-110); Potassium 4.1 mmol/L (3.5-5.5); Sodium 134 mmol/L (135-145)
[2023-04-01] MEDS: FAMOTIDINE 20 MG/2 ML VIAL IV SCH ×2 (10:08→22:05)
[2023-04-01] MEDS: CHOLESTYRAMINE (WITH SUGAR) 4 GM PACKET PO SCH ×2 (10:34→18:02)
[2023-04-01] MEDS: ENOXAPARIN 100 MG/ML SYRINGE SQ SCH ×2 (10:34→22:04)
--- NOTE | 2023-04-01 11:31 | P.PN ---
Subjective Progress Note Date: 04/01/23 I am seeing this patient in new consultation today 03/26/2023 for persistent and refractory hypoglycemia. Patient is a 77-year-old male with past medical history significant for diabetes mellitus type 2, hypothyroidism, factor V Leyden mutation, right lower extremity DVT, pulmonary embolism, recurrent lower extremity cellulitis, hypertension, hyperlipidemia, severe persistent asthma, GERD. His primary care provider is Dr. Tatyana Mora. Patient came to the emergency room yesterday afternoon complaining of increased redness and swelling of bilateral legs, but his right lower extremity is worse. He says that he has noticed increased redness and drainage over the last 2 weeks. This has been accompanied with fevers and generalized malaise. The patient was admitted to the hospital on IV antibiotics in the form of Zosyn. While on the general medical floor, the patient was found to be profoundly hypoglycemic. This was refractory to multiple administrations of D50W. In fact, it looks like he's had over 8 amps of D50W over the last 12 hours. He has been started on a D10W infusion at 100 ML's per hour. Patient is currently sitting up in bed, on room air, in no acute distress. He is asymptomatic even when hypoglycemic. He has not received any long-acting insulin, metformin, or sulfonylureas while in the hospital. He normally takes metformin and Glipizide at home, but has not had a dose this admission. He has NovoLog sliding scale insulin ordered, but has not received any because of his hypoglycemia. Denies any liver disease, active cancer, alcoholism. Most recent CBC is unremarkable. BMP shows sodium 128, potassium 4.5, chloride 99, serum bicarb 22, BUN 41, creatinine 1.54, glucose 35. LFTs on arrival were nonelevated. Patient is hemodynamically stable, but warrants close monitoring and intensive care unit. 03/26/2023, the patient is being seen for a follow-up. He is awake and is communicating. He has chronic lymphedema in the right lower extremity with wound and cellulitis. The wound has been debrided and the surface is quite ulcerated and erythematous with some serous material draining from the wound surface. There is also extensive edema in the right lower extremity along with erythema. He remains on anticoagulation with that also. He has been diabetic and the patient was taking oral hypoglycemic medication. The patient developed severe hypoglycemia and for that reason he was hospitalized and brought into the intensive care unit and currently is on D10 which is running at 100 mL an hour. Most recent blood sugar is at 115. He is hemodynamically stable. He is on IV Zosyn. He is afebrile. Most recent BP is 93/66 and the patient has not re quired any pressors. Producing adequate amount of urine output. His white cell cause of 9.2 with a hemoglobin 11.7 and a platelet count of 159. Sodium level is at 128 and the potassium levels at 4.5, BUN is at 45 with a creatinine of 1.5. Noted the patient was hospitalized with an acute kidney injury and the creatinine was as high as 1.9 and the renal function continues to improve. Serum cortisol level is at 22. Lactic acid level was as high as 2.8 and dropped down to 1.9. Cultures have been sent and the results are still pending for now. 03/27/2023, the patient is sitting up on a chair and is calm and comfortable. Noted overnight, the patient became progressively more hypotensive. He was started on norepinephrine and currently the norepinephrine is O- dose of 0.04 mcg/kg/m. He was also started on midodrine. He is producing adequate amount of urine output. Creatinine is improving and current labs show a BUN of 33 with a creatinine of 1.39. Sodium is at 128 as the patient was receiving D5 water regarding progressive hypoglycemia. The WBC was a 12.6 with a hemoglobin of 11.3 and a platelet count of 199. The most recent blood sugars at 199. The repeat Accu-Cheks have shown adequate blood sugar control and based on that, the patient was taken off the D10 and she was switched to D5 which is running at 50 mL an hour. He is also tolerating his diet. No altered mentation. No chest pain. No shortness of breath. He is on room air oxygen. Cultures are still negative. Opticell applied to his right lower extremity in the legs are wrapped for now. 03/28/2023, the patient is still requiring low-dose of norepinephrine for blood pressure control and norepinephrine is running at 0.03 mcg/kg/m. He has borderline hypotensive secondary to sepsis and cellulitis of the right lower extremity. The patient in the being covered with IV Zosyn. Cultures from the wound came back positive for enterococcus group D, staph aureus and gram- negative bacillus. The patient also had many normal skin noe. The patient's white cell count is down to 10.8 with a hemoglobin of 10.3 and a platelet count of 188. His BUN is at 31 with a creatinine of 1.4 which is improved and the sodium level is at 1:30. His blood sugars are maintained above 100 and the patient is currently off D5 infusion. The blood cultures have been negative thus far after 48 hours growth. Echocardiogram was completed yesterday and it showed a left ventricular ejection fraction of 40-45% which was mildly impaired and there was mild septal wall thickening and the patient was also identified to have severe aortic stenosis with a gradient of 78 mmHg peak and mean gradient of 43. Is also mild aortic regurgitation. 03/29/2023, the patient is off pressors and his been of present since 11 AM yest erday. He is hemodynamically stable and is maintaining his own blood pressure. Cellulitis is improving in his right lower extremity. The patient's has no specific complaints. The LAD oxygen. Creatinine is down to 1.2. Rest of the blood work on this patient shows a WBC count of 10 with a hemoglobin of 10.6 and a platelet count of 228. Sodium level is at the 131. The patient had no further episodes of hypoglycemia. Blood sugars under adequate control. He is on a slight scale insulin coverage. I separate note, he was found to have severe aortic stenosis on his echocardiogram. Cardiology is on the case for now. As mentioned, the cellulitis of the right lower oximetry is also improvi ng. We're doing wound care. 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 No interventions were recommended this point in time. The patient has a chronic venous ulcer which is being treated On 03/30/2023, the patient is being seen for a follow-up. He was moved out of the intensive care unit yesterday. He is having diarrhea and stool was checked for C. diff. The patient has been switched to IV cefazolin. The patient has no new complaints otherwise for now. No respiratory difficulties. The white cell count of 18.8 with a hemoglobin of 10.9. BUN is at 27 with a creatinine of 1.3 and a sodium levels of 132. No shortness of breath. No chest pain. Vitals are stable and the patient is currently on room air oxygen. On today's evaluation of 03/31/2023, the patient remains on the medical floor. The patient was transferred out of the intensive care unit. He has severe aortic stenosis the also was hypotensive due to sepsis and cellulitis and he also had a skin wound/necrosis and his right lower extremity. The patient was seen by vascular surgery and the patient underwent debridement. Deep tissue culture was also taken. The patient's white cell count normalized and is up to 26 and the patient was placed back on IV Zosyn. Hemoglobin stable at 11.3. BUN is at 27 with a creatinine of 1 and a sodium level is at 132. No episodes of hypoglycemia this point in time. The patient is onthe coverage and oral hypoglycemic medications has been held. On a separate note, the patient was also having diarrhea. Stool for C. diff has been negative. On 04/01/2023, the patient is resting comfortably in bed. No new complaints. S urgical debridement of the right lower extremity wound has been done. The white cell count remains elevated at 26. He was having diarrhea and this is gradually improving. The patient's stool for C. diff has been negative and the patient remains on IV Zosyn. No other significant events overnight. Hemoglobin stable at 10.1. BUN is at 21 with a creatinine of 1.1 and his sodium level is at 134. Objective - Vital Signs Vital signs: Vital Signs Temp 98.2 F 04/01/23 07:34 Pulse 72 04/01/23 07:54 Resp 18 04/01/23 07:34 BP 136/64 04/01/23 07:34 Pulse Ox 91 L 04/01/23 07:34 FiO2 Intake & Output 03/31/23 04/01/23 04/01/23 18:59 06:59 18:59 Other: Voiding Method Urinal Urinal # Voids 2 1 # Bowel Movements 1 - Exam GENERAL EXAM: Alert, 77-year-old white male , comfortable in no apparent distress. HEAD: Normocephalic and atraumatic EYES: Normal reaction of pupils, equal size. NOSE: Clear with pink turbinates. THROAT: No erythema or exudates. NECK: No masses, no JVD. CHEST: No chest wall deformity. LUNGS: Equal air entry with bibasilar inspiratory crackles. No wheezes, rhonchi, focal dullness. On room air. No conversational dyspnea or accessory muscle use.. CVS: S1 and S2 normal with systolic ejection murmur grade 3/6 audible murmur, regular rhythm. No extra heart sounds ABDOMEN: Obese abdomen, No hepatosplenomegaly, active bowel sounds, no guarding or rigidity. SPINE: No scoliosis or deformity SKIN: Bilateral lower extremity erythema with purulent drainage. CENTRAL NERVOUS SYSTEM: No focal deficits, tone is normal in all 4 extremities. EXTREMITIES: Right lower extremity is grossly enlarged and erythemic. Left lo wer extremity is also edematous, with opticell silver and the erythema is improved considerably and wrapped in Kerlix. Peripheral pulses are intact. - Labs CBC & Chem 7: 04/01/23 04:26 04/01/23 04:26 Labs: Abnormal Lab Results - Last 24 Hours (Table) 03/31/23 03/31/23 03/31/23 Range/Units 11:49 13:42 16:47 WBC (4.50-10.00) X 10*3/uL RBC (4.40-5.60) X 10*6/uL Hgb (13.0-17.0) d/dL Hct (39.6-50.0) % MCH (27.0-32.0) pg RDW (11.5-14.5) % NRBC/100 WBC Diff (0.00-0.01) X 10*3/uL Sodium (135-145) mmol/L Carbon Dioxide (21.6-31.8) mmol/L Glucose (70-110) mg/dL POC Glucose (mg/dL) 168 H 184 H (70-110) mg/dL Calcium (8.7-10.3) mg/dL C-Reactive Protein 24.2 H (<1.0) mg/dL 03/31/23 04/01/23 04/01/23 Range/Units 20:55 01:46 04:26 WBC 26.32 H (4.50-10.00) X 10*3/uL RBC 3.84 L (4.40-5.60) X 10*6/uL Hgb 10.1 L (13.0-17.0) d/dL Hct 31.3 L (39.6-50.0) % MCH 26.3 L (27.0-32.0) pg RDW 16.8 H (11.5-14.5) % NRBC/100 WBC Diff 0.02 H (0.00-0.01) X 10*3/uL Sodium (135-145) mmol/L Carbon Dioxide (21.6-31.8) mmol/L Glucose (70-110) mg/dL POC Glucose (mg/dL) 146 H 153 H (70-110) mg/dL Calcium (8.7-10.3) mg/dL C-Reactive Protein (<1.0) mg/dL 04/01/23 04/01/23 Range/Units 04:26 06:01 WBC (4.50-10.00) X 10*3/uL RBC (4.40-5.60) X 10*6/uL Hgb (13.0-17.0) d/dL Hct (39.6-50.0) % MCH (27.0-32.0) pg RDW (11.5-14.5) % NRBC/100 WBC Diff (0.00-0.01) X 10*3/uL Sodium 134 L (135-145) mmol/L Carbon Dioxide 20.4 L (21.6-31.8) mmol/L Glucose 134 H (70-110) mg/dL POC Glucose (mg/dL) 157 H (70-110) mg/dL Calcium 8.0 L (8.7-10.3) mg/dL C-Reactive Protein 19.50 H (<1.0) mg/dL Microbiology - Last 24 Hours (Table) 03/30/23 09:56 Blood Culture - Preliminary Blood Assessment and Plan Plan: Diabetes mellitus and the patient was having episodes Hypoglycemia refractory to glucose replacement, improved and the patient is currently off oral hypoglycemic medication and the patient is also off the D5 infusion. He'll be offered insulin sliding scale coverage only at this point in time. No further episodes of hypoglycemia Bilateral lower extremity cellulitis, worse in the right lower extremity and the patient has a superficial wound that has been debrided and there is a wound cove ring the anterior aspect of the right lower extremity was erythematous and draining minimally, nonpurulent material. Cultures are polymicrobial including enterococcus group D and gram-negative and the patient is currently on IV cefazolin. Based on that recently rise in the white cell count, the patient was switched back to IV Zosyn. Acute leukocytosis Diarrhea , stool for C. diff toxin has been negative Hypotension, likely secondary to underlying sepsis, recovered and the patient is currently off pressors, the patient moved out of the intensive care unit 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, vascular surgery regarding the patient. No intervention. We'll use lymphedema pump. We'll take care of a wound and the patient is curren tly on IV antibiotics. Severe aortic stenosis with a peak gradient of 78 and mean gradient of 43 mmHg History of right lower extremity DVT and pulmonary embolism anticoagulated on Xarelto, repeat ultrasound shows a chronic clot in the right lower extremity involving the common femoral vein extending to mid femoral vein. History of factor V Leyden mutation Acute kidney injury, improved Mild hyponatremia, improving Diabetes mellitus type 2, [id number], normally managed with metformin on an outpatient basis Essential hypertension Hyperlipidemia Severe persistent asthma, stable Plan: Continue same treatment and monitor the white cell count Awaiting culture results from the wound obtained surgically Continue IV IV Zosyn Monitor diarrhea Stool for C. 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
[2023-04-01 11:40] LABS: Glucose,Whole Blood 152 mg/dL (70-110)
--- NOTE | 2023-04-01 11:57 | P.PN ---
Subjective Patient is seen for follow-up for acute kidney injury. Renal function has improved. Serum creatinine staying at 1.0 down from peak creatinine of 1.9 on admission. Off of pressors. Off of IV fluids. Transferred out of ICU Sitting on a bedside chair. Complaining of pain in the right leg Objective - Vital Signs Vital signs: Vital Signs Temp 98.2 F 04/01/23 07:34 Pulse 76 04/01/23 11:27 Resp 18 04/01/23 07:34 BP 136/64 04/01/23 07:34 Pulse Ox 91 L 04/01/23 07:34 FiO2 Intake & Output 03/31/23 04/01/23 04/01/23 18:59 06:59 18:59 Other: Voiding Method Urinal Urinal Urinal # Voids 2 1 # Bowel Movements 1 - Exam Patient is awake, comfortable, in no acute distress Examination of the heart S1 and S2 Examination of the lungs bilateral breath sounds are heard Abdomen is soft obese nontender Examination lower extremity shows chronic skin changes bilaterally with erythema noted in the right lower extremity. Both legs are wrapped. [employer] exam grossly intact - Labs CBC & Chem 7: 04/01/23 04:26 04/01/23 04:26 Labs: Abnormal Lab Results - Last 24 Hours (Table) 03/31/23 03/31/23 03/31/23 Range/Units 11:49 13:42 16:47 WBC (4.50-10.00) X 10*3/uL RBC (4.40-5.60) X 10*6/uL Hgb (13.0-17.0) d/dL Hct (39.6-50.0) % MCH (27.0-32.0) pg RDW (11.5-14.5) % NRBC/100 WBC Diff (0.00-0.01) X 10*3/uL Sodium (135-145) mmol/L Carbon Dioxide (21.6-31.8) mmol/L Glucose (70-110) mg/dL POC Glucose (mg/dL) 168 H 184 H (70-110) mg/dL Calcium (8.7-10.3) mg/dL C-Reactive Protein 24.2 H (<1.0) mg/dL 03/31/23 04/01/23 04/01/23 Range/Units 20:55 01:46 04:26 WBC 26.32 H (4.50-10.00) X 10*3/uL RBC 3.84 L (4.40-5.60) X 10*6/uL Hgb 10.1 L (13.0-17.0) d/dL Hct 31.3 L (39.6-50.0) % MCH 26.3 L (27.0-32.0) pg RDW 16.8 H (11.5-14.5) % NRBC/100 WBC Diff 0.02 H (0.00-0.01) X 10*3/uL Sodium (135-145) mmol/L Carbon Dioxide (21.6-31.8) mmol/L Glucose (70-110) mg/dL POC Glucose (mg/dL) 146 H 153 H (70-110) mg/dL Calcium (8.7-10.3) mg/dL C-Reactive Protein (<1.0) mg/dL 04/01/23 04/01/23 04/01/23 Range/Units 04:26 06:01 11:37 WBC (4.50-10.00) X 10*3/uL RBC (4.40-5.60) X 10*6/uL Hgb (13.0-17.0) d/dL Hct (39.6-50.0) % MCH (27.0-32.0) pg RDW (11.5-14.5) % NRBC/100 WBC Diff (0.00-0.01) X 10*3/uL Sodium 134 L (135-145) mmol/L Carbon Dioxide 20.4 L (21.6-31.8) mmol/L Glucose 134 H (70-110) mg/dL POC Glucose (mg/dL) 157 H 152 H (70-110) mg/dL Calcium 8.0 L (8.7-10.3) mg/dL C-Reactive Protein 19.50 H (<1.0) mg/dL Microbiology - Last 24 Hours (Table) 03/30/23 09:56 Blood Culture - Preliminary Blood Assessment and Plan Assessment: 1. Acute kidney injury ATN nonoliguric secondary to hypotension and underlying infection. Improving. Status post IV fluids 2. Hyponatremia secondary to hypotonic fluid, improved 3. Persistent hypoglycemia, improved, status post D10.. 4. Bilateral lower extremity cellulitis, worse on the right leg, maintained on antibiotics 5. Right lower extremity DVT, chronic with history of PE maintained on xarelto Plan: Continue off of IV fluid Continue antibiotics Repeat labs in a.m.
--- NOTE | 2023-04-01 12:00 | P.PN ---
Subjective Patient is seen for follow-up for acute kidney injury. Renal function has improved. Serum creatinine staying at 1.0-1.1 down from peak creatinine of 1.9 on admission. Off of pressors. Off of IV fluids. Transferred out of ICU Sitting on a bedside chair. Right leg pain somewhat improved. Diarrhea also improved. Objective - Vital Signs Vital signs: Vital Signs Temp 98.2 F 04/01/23 07:34 Pulse 76 04/01/23 11:27 Resp 18 04/01/23 07:34 BP 136/64 04/01/23 07:34 Pulse Ox 91 L 04/01/23 07:34 FiO2 Intake & Output 03/31/23 04/01/23 04/01/23 18:59 06:59 18:59 Other: Voiding Method Urinal Urinal Urinal # Voids 2 1 # Bowel Movements 1 - Exam Patient is awake, comfortable, in no acute distress Examination of the heart S1 and S2 Examination of the lungs bilateral breath sounds are heard Abdomen is soft obese nontender Examination lower extremity shows chronic skin changes bilaterally with erythema noted in the right lower extremity. Both legs are wrapped. [employer] exam grossly intact - Labs CBC & Chem 7: 04/01/23 04:26 04/01/23 04:26 Labs: Abnormal Lab Results - Last 24 Hours (Table) 03/31/23 03/31/23 03/31/23 Range/Units 11:49 13:42 16:47 WBC (4.50-10.00) X 10*3/uL RBC (4.40-5.60) X 10*6/uL Hgb (13.0-17.0) d/dL Hct (39.6-50.0) % MCH (27.0-32.0) pg RDW (11.5-14.5) % NRBC/100 WBC Diff (0.00-0.01) X 10*3/uL Sodium (135-145) mmol/L Carbon Dioxide (21.6-31.8) mmol/L Glucose (70-110) mg/dL POC Glucose (mg/dL) 168 H 184 H (70-110) mg/dL Calcium (8.7-10.3) mg/dL C-Reactive Protein 24.2 H (<1.0) mg/dL 03/31/23 04/01/23 04/01/23 Range/Units 20:55 01:46 04:26 WBC 26.32 H (4.50-10.00) X 10*3/uL RBC 3.84 L (4.40-5.60) X 10*6/uL Hgb 10.1 L (13.0-17.0) d/dL Hct 31.3 L (39.6-50.0) % MCH 26.3 L (27.0-32.0) pg RDW 16.8 H (11.5-14.5) % NRBC/100 WBC Diff 0.02 H (0.00-0.01) X 10*3/uL Sodium (135-145) mmol/L Carbon Dioxide (21.6-31.8) mmol/L Glucose (70-110) mg/dL POC Glucose (mg/dL) 146 H 153 H (70-110) mg/dL Calcium (8.7-10.3) mg/dL C-Reactive Protein (<1.0) mg/dL 04/01/23 04/01/23 04/01/23 Range/Units 04:26 06:01 11:37 WBC (4.50-10.00) X 10*3/uL RBC (4.40-5.60) X 10*6/uL Hgb (13.0-17.0) d/dL Hct (39.6-50.0) % MCH (27.0-32.0) pg RDW (11.5-14.5) % NRBC/100 WBC Diff (0.00-0.01) X 10*3/uL Sodium 134 L (135-145) mmol/L Carbon Dioxide 20.4 L (21.6-31.8) mmol/L Glucose 134 H (70-110) mg/dL POC Glucose (mg/dL) 157 H 152 H (70-110) mg/dL Calcium 8.0 L (8.7-10.3) mg/dL C-Reactive Protein 19.50 H (<1.0) mg/dL Microbiology - Last 24 Hours (Table) 03/30/23 09:56 Blood Culture - Preliminary Blood Assessment and Plan Assessment: 1. Acute kidney injury ATN nonoliguric secondary to hypotension and underlying infection. Improving. Status post IV fluids 2. Hyponatremia secondary to hypotonic fluid, improved 3. Persistent hypoglycemia, improved, status post D10.. 4. Bilateral lower extremity cellulitis, worse on the right leg, maintained on antibiotics 5. Right lower extremity DVT, chronic with history of PE maintained on xarelto Plan: Continue off of IV fluid Continue antibiotics Repeat labs in a.m. Add parameters to midodrine as blood pressure has now improved.
[2023-04-01] MEDS ORDERED: FUROSEMIDE 10 MG/ML 4 ML VIAL IV STA (12:59)
--- NOTE | 2023-04-01 13:19 | P.PN ---
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 Patient is admitted with worsening right leg swelling for the last 2 weeks as he explains to me with mild pain or discomfort in the area.. Also patient presents because of hypoglycemia. Patient was taken several of diabetes medications including metformin, Actos and glipizide 20 mg daily which patient was taken every day however he says that he had low appetite over the last 10 days and he was not eating well. Patient currently complaining of from 3-4/10 pain in his right leg. Patient can walk at home using a cane as he explains to me. Patient is fully awake and oriented and denies any other complaints. No chest pain or dyspnea. No new GI or urinary complaints. No headache dizziness w eakness or numbness Patient says that he was taking testosterone at home to prevent him from falling down and other male characters 04/15/2023 Patient clinically looks the same, direct but answers questions appropriately. He denies any specific pain or discomfort. He was admitted with right leg cellulitis and currently is with Zeus wrap and he had loose bowel movement 1: No abdominal pain. His blood pressure on the low side requiring midodrine 10 mg and to make her on Levophed. Thank you again at 0.06 g per KG per minute. Also he is getting normal saline at 50 mL/h. Sugars start picking up today more than 200 therefore was started and Actos. This followed now is D5 normal saline at 50 mL/h. He is on Xarelto Uriostegui history of DVT/PE. 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 Patient currently on Zosyn without edema the case. History of heart were small dose of pressors of Levophed improvement from 0.06 down to 0.03. Also he is on midodrine 10 mg 3 times a day. He is awake alert and comfortable, no new complaint compared to yesterday for the patient's site. Remains on blood thinners Xarelto for his history of right lower extremity DVT and PE. Manufacturing Supervisor has been consulted for bradycardia and echocardiogram showing severe aortic stenosis.Echocardiogram showed ejection fraction of 40-45% He is off IV fluids. Insulin controlled on insulin sliding scale. Glipizide, metformin and Actos on hold. Also Cardizem is on hold. 03/29: Patient seen and evaluated bedside. Patient is alert and oriented 3. Right proximity cellulitis. Patient was treated with IV antibiotics on Zosyn. Noted to have episode of fever infectious disease following 03/30: Patient seen and evaluated bedside. Patient noted to have episode of fever and elevated W BC count overnight. We'll get CT right lower extremity to rule out abscess. Patient complained of diarrhea however stool was negative for C. diff checked while in ICU 03/31: Patient seen and evaluated bedside. Patient does complain of right lower extremity pain. Right foot exam does raise suspicion for abscess. CT right l ower extremity completed antibiotic escalated to Zosyn and doxycycline. General surgery consulted. Xarelto discontinued in anticipation of incision and drainage 04/01 : Patient seen and evaluated at bedside, patient was seen by vascular surgery yesterday and had incision and drainage of left foot,. General surgery consult was canceled. Antibiotics broadened on Zosyn and Doxy to be continued will follow up on recommendations from infectious disease. says his pain is better controlled after procedure yesterday. Xarelto continues to remain on hold however patient started on therapeutic dose of Lovenox in case he needs more intervention Objective - Vital Signs Vital signs: Vital Signs Temp 98.2 F 04/01/23 07:34 Pulse 87 04/01/23 13:10 Resp 18 04/01/23 07:34 BP 106/58 04/01/23 13:10 Pulse Ox 91 L 04/01/23 07:34 FiO2 Intake & Output 03/31/23 04/01/23 04/01/23 18:59 06:59 18:59 Other: Voiding Method Urinal Urinal Urinal # Voids 2 1 # Bowel Movements 1 - Exam PHYSICAL EXAMINATION: GENERAL: The patient is alert and oriented x3, not in any acute distress. Ill appearance HEENT: Pupils are round and equally reacting to light. EOMI. No scleral icterus. No conjunctival pallor. Normocephalic, atraumatic. No pharyngeal erythema. No thyromegaly. CARDIOVASCULAR: S1 and S2 present. No murmurs, rubs, or gallops. PULMONARY: Chest is clear to auscultation, no wheezing or crackles. ABDOMEN: Soft, nontender, nondistended, normoactive bowel sounds. No palpable organomegaly. MUSCULOSKELETAL: No joint swelling or deformity. EXTREMITIES: No cyanosis, clubbing, or pedal edema. NEUROLOGICAL: Gross neurological examination did not reveal any focal deficits. SKIN: Stasis dermatitis bilateral lower extremity, right leg swollen, dorsal part of right foot swollen, bruised, hematoma noted on 03/31, status post I& D by vascular surgery - Labs CBC & Chem 7: 04/01/23 04:26 04/01/23 04:26 Labs: Abnormal Lab Results - Last 24 Hours (Table) 03/31/23 03/31/23 03/31/23 Range/Units 13:42 16:47 20:55 WBC (4.50-10.00) X 10*3/uL RBC (4.40-5.60) X 10*6/uL Hgb (13.0-17.0) d/dL Hct (39.6-50.0) % MCH (27.0-32.0) pg RDW (11.5-14.5) % NRBC/100 WBC Diff (0.00-0.01) X 10*3/uL Sodium (135-145) mmol/L Carbon Dioxide (21.6-31.8) mmol/L Glucose (70-110) mg/dL POC Glucose (mg/dL) 184 H 146 H (70-110) mg/dL Calcium (8.7-10.3) mg/dL C-Reactive Protein 24.2 H (<1.0) mg/dL 04/01/23 04/01/23 04/01/23 Range/Units 01:46 04:26 04:26 WBC 26.32 H (4.50-10.00) X 10*3/uL RBC 3.84 L (4.40-5.60) X 10*6/uL Hgb 10.1 L (13.0-17.0) d/dL Hct 31.3 L (39.6-50.0) % MCH 26.3 L (27.0-32.0) pg RDW 16.8 H (11.5-14.5) % NRBC/100 WBC Diff 0.02 H (0.00-0.01) X 10*3/uL Sodium 134 L (135-145) mmol/L Carbon Dioxide 20.4 L (21.6-31.8) mmol/L Glucose 134 H (70-110) mg/dL POC Glucose (mg/dL) 153 H (70-110) mg/dL Calcium 8.0 L (8.7-10.3) mg/dL C-Reactive Protein 19.50 H (<1.0) mg/dL 04/01/23 04/01/23 Range/Units 06:01 11:37 WBC (4.50-10.00) X 10*3/uL RBC (4.40-5.60) X 10*6/uL Hgb (13.0-17.0) d/dL Hct (39.6-50.0) % MCH (27.0-32.0) pg RDW (11.5-14.5) % NRBC/100 WBC Diff (0.00-0.01) X 10*3/uL Sodium (135-145) mmol/L Carbon Dioxide (21.6-31.8) mmol/L Glucose (70-110) mg/dL POC Glucose (mg/dL) 157 H 152 H (70-110) mg/dL Calcium (8.7-10.3) mg/dL C-Reactive Protein (<1.0) mg/dL Microbiology - Last 24 Hours (Table) 03/30/23 09:56 Blood Culture - Preliminary Blood Assessment and Plan Assessment: Acute right leg cellulitis, with abscess Septic shock Resolved Cardiomyopathy with ejection fraction 40-45% Severe aortic stenosis Diabetes mellitus, with hypoglycemia, present on admission decreased appetite secondary to above Hypertension Hyperlipidemia History of osteoarthritis Hypothyroidism History of DVT/PE on Xarelto prior to this admission Plan: In regard to RLE cellulitis > patient transition back to IV Zosyn , initiated doxycycline 03/31 CT right lower extremity negative for necrotizing fasciitis does show diffuse edema, vascular surgery did I&D on 03/31 e In regards to sepsis, patient was in intensive care unit resuscitated and transferred to general medical floor. 03/30 noted to have fever repeat blood cultures no growth In regards to history of aortic stenosis patient seen by cardiology, episode of bradycardia continue to monitor In regards to history of pulmonary embolism, Discontinued Xarelto 03/31 >> in anticipation of surgical intervention, and she rated Lovenox 8/6 therapeutic dose Continue with blood pressure support with Midodrine In regards to diabetes mellitus continue patient on Accu-Cheks before meals and at bedtime continue sliding insulin DVT prophylaxis: Xarelto placed on hold, on Lovenox therapeutic dose GI prophylaxis: Pepcid
[2023-04-01 16:18] LABS: Glucose,Whole Blood 165 mg/dL (70-110)
--- NOTE | 2023-04-01 17:37 | P.PN ---
Subjective Progress Note Date: 03/28/23 Principal diagnosis: Right lower extremity wound and cellulitis Patient is a 77-year-old male with a past medical history negative for hypertension hyperlipidemia diabetes mellitus PE patient also have a lower extremity venous stasis ulcer and history of recurrent cellulitis patient presenting to the hospital concerning for right leg infection patient noticed to have increasing redness to discomfort and drainage to the right lower extremity, admitted to the ICU because of hypoglycemia On today's evaluation that is 03/28/2023, the patient remains to be afebrile pa tient is breathing comfortably on room air, the patient denies any chest pain shortness of breath or cough no abdominal pain or any worsening pain to the right lower extremity Patient did have white count of 10.8, the patient creatinine is 1.41, blood and local cultures currently pending Objective - Vital Signs Vital signs: Vital Signs Temp 99.0 F 03/28/23 11:00 Pulse 69 03/28/23 11:00 Resp 25 H 03/28/23 11:00 BP 126/75 03/28/23 11:00 Pulse Ox 95 03/28/23 11:00 FiO2 Intake & Output 03/27/23 03/28/23 03/28/23 18:59 06:59 18:59 Intake Total 568.348 267.577 Output Total 1300 550 350 Balance -731.652 -282.423 -350 Weight 138.2 kg Intake: IV 530 260 0.9 180 260 Calcium Gluconate in NaCl 100 1 gm In Saline 1 100ml. bag @ 100 mls/hr IVPB ONCE ONE Rx#:[id number] Dextrose 5%-0.9% NaCl 1, 150 000 ml @ 50 mls/hr IV . Q20H [facility] Rx#:[id number] Magnesium Sulfate-D5w Pmx 100 1 gm In Dextrose/Water 1 100ml.bag @ 100 mls/hr IVPB Q1H [facility] Rx#: [id number] Intake, IV Titration 38.348 7.577 Amount Norepinephrine 8 mg In 38.348 7.577 Sodium Chloride 0.9% 250 ml @ 0.03 MCG/KG/MIN 5. 635 mls/hr IV .Q24H [facility] Rx#:[id number] Output: Urine 1300 550 350 Other: Voiding Method Urinal Urinal Urinal # Voids 0 # Bowel Movements 1 - Exam GENERAL DESCRIPTION: An elderly male lying in bed in no distress RESPIRATORY SYSTEM: Unlabored breathing , decreased breath sounds at bases HEART: S1 S2 regular rate and rhythm , ABDOMEN: Soft , no tenderness EXTREMITIES: Right lower extremity wound and currently dressed no drainage on the dressing - Labs CBC & Chem 7: 04/01/23 04:26 04/01/23 04:26 Labs: Abnormal Lab Results - Last 24 Hours (Table) 03/27/23 03/27/23 03/28/23 Range/Units 16:04 20:06 02:02 WBC (3.8-10.6) k/uL RBC (4.30-5.90) m/uL Hgb (13.0-17.5) gm/dL Hct (39.0-53.0) % RDW (11.5-15.5) % Neutrophils # (1.3-7.7) k/uL Lymphocytes # (1.0-4.8) k/uL Sodium (137-145) mmol/L Carbon Dioxide (22-30) mmol/L BUN (9-20) mg/dL Creatinine (0.66-1.25) mg/dL Glucose (74-99) mg/dL POC Glucose (mg/dL) 187 H 188 H 195 H (70-110) mg/dL Calcium (8.4-10.2) mg/dL 03/28/23 03/28/23 03/28/23 Range/Units 04:28 04:28 06:22 WBC 10.8 H (3.8-10.6) k/uL RBC 3.81 L (4.30-5.90) m/uL Hgb 10.3 L (13.0-17.5) gm/dL Hct 32.8 L (39.0-53.0) % RDW 16.0 H (11.5-15.5) % Neutrophils # 8.9 H (1.3-7.7) k/uL Lymphocytes # 0.6 L (1.0-4.8) k/uL Sodium 130 L (137-145) mmol/L Carbon Dioxide 21 L (22-30) mmol/L BUN 31 H (9-20) mg/dL Creatinine 1.41 H (0.66-1.25) mg/dL Glucose 130 H (74-99) mg/dL POC Glucose (mg/dL) 152 H (70-110) mg/dL Calcium 7.3 L (8.4-10.2) mg/dL 03/28/23 Range/Units 11:34 WBC (3.8-10.6) k/uL RBC (4.30-5.90) m/uL Hgb (13.0-17.5) gm/dL Hct (39.0-53.0) % RDW (11.5-15.5) % Neutrophils # (1.3-7.7) k/uL Lymphocytes # (1.0-4.8) k/uL Sodium (137-145) mmol/L Carbon Dioxide (22-30) mmol/L BUN (9-20) mg/dL Creatinine (0.66-1.25) mg/dL Glucose (74-99) mg/dL POC Glucose (mg/dL) 146 H (70-110) mg/dL Calcium (8.4-10.2) mg/dL Microbiology - Last 24 Hours (Table) 03/25/23 14:30 Blood Culture - Preliminary Blood 03/25/23 14:45 Blood Culture - Preliminary Blood 03/25/23 17:41 Gram Stain - Final Ankle - Left Wound Culture - Final Assessment and Plan (1) Cellulitis of right leg Current Visit: Yes Status: Acute Code(s): L03.115 - CELLULITIS OF RIGHT LOWER LIMB SNOMED Code(s): 343944575 (2) Chronic cutaneous venous stasis ulcer Current Visit: No Status: Acute Code(s): I83.009 - VARICOSE VEINS OF UNSP LOWER EXTREMITY W ULCER OF UNSP SITE; L97.909 - NON-PRS CHRONIC ULC UNSP PRT OF UNSP LOW LEG W UNSP SEVERITY SNOMED Code(s): 67759119 Plan: 1patient was in the hospital with increasing pain swelling redness of the right lower extremity in this patient who do have a history of venous stasis ulcer to right lower extremity and concerning for cellulitis likely from gram-positive skin noe 2Patient seemed to have some clinical improvement and local cultures are currently pending, patient to continue withvancomycin pharmacy to dose with a target trough of 15 while watching kidney function and Vanco trough closely while waiting for the cultures to finalize 3local wound care with Aquacel silver dressing and mild compression dressing. Dictation was produced using [employer] software. please excuse any grammatical, word or spelling errors. Time with Patient: Less than 30
--- NOTE | 2023-04-01 17:40 | P.PN ---
Subjective Progress Note Date: 03/29/23 Principal diagnosis: Right lower extremity wound and cellulitis Patient is a 77-year-old male with a past medical history negative for hypertension hyperlipidemia diabetes mellitus PE patient also have a lower extremity venous stasis ulcer and history of recurrent cellulitis patient presenting to the hospital concerning for right leg infection patient noticed to have increasing redness to discomfort and drainage to the right lower extremity, admitted to the ICU because of hypoglycemia On today's evaluation that is 03/29/2023, the patient continues to be afebrile patient is breathing comfortably on room air, the patient denies any chest pain shortness of breath or cough , the patient denies having any abdominal pain or any worsening pain to the right lower extremity Patient did have white count of 10.6, the patient creatinine is 1.24, blood and local cultures are so far negative Objective - Vital Signs Vital signs: Vital Signs Temp 99.7 F H 03/29/23 12:00 Pulse 81 03/29/23 12:00 Resp 28 H 03/29/23 12:00 BP 100/60 03/29/23 12:00 Pulse Ox 99 03/29/23 12:00 FiO2 Intake & Output 03/28/23 03/29/23 03/29/23 18:59 06:59 18:59 Intake Total 68.465 320 500 Output Total 550 850 100 Balance -481.535 -530 400 Weight 137.2 kg Intake: IV 320 60 0.9 220 60 Piperacillin-Tazobactam 3 100 .375 gm In Sodium Chloride 0.9% 100 ml @ 25 mls/hr IVPB Q8HR [facility] Rx# :[id number] Intake, IV Titration 68.465 320 Amount Norepinephrine 8 mg In 68.465 Sodium Chloride 0.9% 250 ml @ 0.03 MCG/KG/MIN 5. 635 mls/hr IV .Q24H [facility] Rx#:[id number] Piperacillin-Tazobactam 3 320 .375 gm In Sodium Chloride 0.9% 100 ml @ 25 mls/hr IVPB Q8HR [facility] Rx# :[id number] Oral 120 Output: Urine 550 850 100 Other: Voiding Method Urinal Urinal Urinal # Voids 1 - Exam GENERAL DESCRIPTION: An elderly male lying in bed in no distress RESPIRATORY SYSTEM: Unlabored breathing , decreased breath sounds at bases HEART: S1 S2 regular rate and rhythm , ABDOMEN: Soft , no tenderness EXTREMITIES: Right lower extremity wound and currently dressed no drainage on the dressing - Labs CBC & Chem 7: 04/01/23 04:26 04/01/23 04:26 Labs: Abnormal Lab Results - Last 24 Hours (Table) 03/28/23 03/28/23 03/29/23 Range/Units 17:10 20:13 04:22 RBC 3.75 L (4.30-5.90) m/uL Hgb 10.6 L (13.0-17.5) gm/dL Hct 32.0 L (39.0-53.0) % RDW 16.1 H (11.5-15.5) % Sodium (137-145) mmol/L Carbon Dioxide (22-30) mmol/L BUN (9-20) mg/dL Glucose (74-99) mg/dL POC Glucose (mg/dL) 174 H 134 H (70-110) mg/dL Calcium (8.4-10.2) mg/dL 03/29/23 03/29/23 03/29/23 Range/Units 04:22 06:06 06:56 RBC (4.30-5.90) m/uL Hgb (13.0-17.5) gm/dL Hct (39.0-53.0) % RDW (11.5-15.5) % Sodium 131 L (137-145) mmol/L Carbon Dioxide 20 L (22-30) mmol/L BUN 27 H (9-20) mg/dL Glucose 151 H (74-99) mg/dL POC Glucose (mg/dL) 155 H 151 H (70-110) mg/dL Calcium 7.7 L (8.4-10.2) mg/dL 03/29/23 Range/Units 11:59 RBC (4.30-5.90) m/uL Hgb (13.0-17.5) gm/dL Hct (39.0-53.0) % RDW (11.5-15.5) % Sodium (137-145) mmol/L Carbon Dioxide (22-30) mmol/L BUN (9-20) mg/dL Glucose (74-99) mg/dL POC Glucose (mg/dL) 166 H (70-110) mg/dL Calcium (8.4-10.2) mg/dL Microbiology - Last 24 Hours (Table) 03/25/23 14:30 Blood Culture - Preliminary Blood 03/25/23 14:45 Blood Culture - Preliminary Blood Assessment and Plan (1) Cellulitis of right leg Current Visit: Yes Status: Acute Code(s): L03.115 - CELLULITIS OF RIGHT LOWER LIMB SNOMED Code(s): 380297629 (2) Chronic cutaneous venous stasis ulcer Current Visit: No Status: Acute Code(s): I83.009 - VARICOSE VEINS OF UNSP LOWER EXTREMITY W ULCER OF UNSP SITE; L97.909 - NON-PRS CHRONIC ULC UNSP PRT OF UNSP LOW LEG W UNSP SEVERITY SNOMED Code(s): 44006533 Plan: 1patient was in the hospital with increasing pain swelling redness of the right lower extremity in this patient who do have a history of venous stasis ulcer to right lower extremity and concerning for cellulitis likely from gram-positive skin noe 2local wound care with Aquacel silver dressing and mild compression dressing. 3-Patient seemed to have some clinical improvement , culture have been negative for any resistant pathogen we will discontinue Zosyn and start the patient on cefazolin and monitor clinical course closely Dictation was produced using [employer] dictation software. please excuse any gramm atical, word or spelling errors. Time with Patient: Less than 30
--- NOTE | 2023-04-01 17:42 | P.PN ---
Subjective Progress Note Date: 03/30/23 Principal diagnosis: Right lower extremity wound and cellulitis Patient is a 77-year-old male with a past medical history negative for hypertension hyperlipidemia diabetes mellitus PE patient also have a lower extremity venous stasis ulcer and history of recurrent cellulitis patient presenting to the hospital concerning for right leg infection patient noticed to have increasing redness to discomfort and drainage to the right lower extremity, admitted to the ICU because of hypoglycemia On today's evaluation that is 03/30/2023, the patient remains to be afebrile pa tient is breathing comfortably on room air, the patient denies any chest pain shortness of breath or cough , the patient denies nausea no vomiting no abdominal pain, patient did complain of some diarrhea, denies anypain to the right lower extremity Patient did have white count is up to 18.8 today, the patient creatinine is 1.30, blood and local cultures are so far negative, patient stool for C. diff negative on 03/28/2023 Objective - Vital Signs Vital signs: Vital Signs Temp 98.2 F 03/30/23 13:26 Pulse 69 03/30/23 13:26 Resp 18 03/30/23 13:26 BP 110/69 03/30/23 13:26 Pulse Ox 93 L 03/30/23 13:26 FiO2 Intake & Output 03/29/23 03/30/23 03/30/23 18:59 06:59 18:59 Intake Total 800 Output Total 300 250 Balance 500 -250 Weight 137.2 kg Intake: IV 120 0.9 120 Intake, IV Titration 320 Amount Piperacillin-Tazobactam 3 320 .375 gm In Sodium Chloride 0.9% 100 ml @ 25 mls/hr IVPB Q8HR [facility] Rx# :[id number] Oral 360 Output: Urine 300 250 Other: Voiding Method Urinal Urinal # Voids 1 2 # Bowel Movements 1 - Exam GENERAL DESCRIPTION: An elderly male lying in bed in no distress RESPIRATORY SYSTEM: Unlabored breathing , decreased breath sounds at bases HEART: S1 S2 regular rate and rhythm , ABDOMEN: Soft , no tenderness EXTREMITIES: Right lower extremity wound and currently dressed no drainage on the dressing - Labs CBC & Chem 7: 04/01/23 04:26 04/01/23 04:26 Labs: Abnormal Lab Results - Last 24 Hours (Table) 03/29/23 03/29/23 03/30/23 Range/Units 16:56 20:23 02:05 WBC (3.8-10.6) k/uL RBC (4.30-5.90) m/uL Hgb (13.0-17.5) gm/dL Hct (39.0-53.0) % RDW (11.5-15.5) % Sodium (137-145) mmol/L Carbon Dioxide (22-30) mmol/L BUN (9-20) mg/dL Creatinine (0.66-1.25) mg/dL Glucose (74-99) mg/dL POC Glucose (mg/dL) 169 H 155 H 145 H (70-110) mg/dL Calcium (8.4-10.2) mg/dL 03/30/23 03/30/23 03/30/23 Range/Units 06:05 06:56 06:56 WBC 18.8 H (3.8-10.6) k/uL RBC 3.87 L (4.30-5.90) m/uL Hgb 10.9 L (13.0-17.5) gm/dL Hct 33.1 L (39.0-53.0) % RDW 16.1 H (11.5-15.5) % Sodium 132 L (137-145) mmol/L Carbon Dioxide 21 L (22-30) mmol/L BUN 27 H (9-20) mg/dL Creatinine 1.30 H (0.66-1.25) mg/dL Glucose 118 H (74-99) mg/dL POC Glucose (mg/dL) 123 H (70-110) mg/dL Calcium 7.7 L (8.4-10.2) mg/dL 03/30/23 Range/Units 11:13 WBC (3.8-10.6) k/uL RBC (4.30-5.90) m/uL Hgb (13.0-17.5) gm/dL Hct (39.0-53.0) % RDW (11.5-15.5) % Sodium (137-145) mmol/L Carbon Dioxide (22-30) mmol/L BUN (9-20) mg/dL Creatinine (0.66-1.25) mg/dL Glucose (74-99) mg/dL POC Glucose (mg/dL) 222 H (70-110) mg/dL Calcium (8.4-10.2) mg/dL Assessment and Plan (1) Cellulitis of right leg Current Visit: Yes Status: Acute Code(s): L03.115 - CELLULITIS OF RIGHT LOWER LIMB SNOMED Code(s): 614478591 (2) Chronic cutaneous venous stasis ulcer Current Visit: No Status: Acute Code(s): I83.009 - VARICOSE VEINS OF UNSP LOWER EXTREMITY W ULCER OF UNSP SITE; L97.909 - NON-PRS CHRONIC ULC UNSP PRT OF UNSP LOW LEG W UNSP SEVERITY SNOMED Code(s): 45421141 Plan: 1patient was in the hospital with increasing pain swelling redness of the right lower extremity in this patient who do have a history of venous stasis ulcer to right lower extremity and concerning for cellulitis likely from gram-positive skin noe 2local wound care with Aquacel silver dressing and mild compression dressing. 3-Patient seemed to have some clinical improvement , culture have been negative for any resistant pathogen, however the patient did have worsening of the white count to be monitored closely, we will continue the patient on cefazolin 4-diarrhea stool for C. diff negative Questran has been added for symptomatic relief Dictation was produced using [employer] dictation software. please excuse any grammatical, word or spelling errors. Time with Patient: Less than 30
--- NOTE | 2023-04-01 17:45 | P.PN ---
Subjective Progress Note Date: 03/31/23 Principal diagnosis: Right lower extremity wound and cellulitis Patient is a 77-year-old male with a past medical history negative for hypertension hyperlipidemia diabetes mellitus PE patient also have a lower extremity venous stasis ulcer and history of recurrent cellulitis patient presenting to the hospital concerning for right leg infection patient noticed to have increasing redness to discomfort and drainage to the right lower extremity, admitted to the ICU because of hypoglycemia On today's evaluation that is 03/31/2023, the patient denies any fever or any c hills, the patient is breathing comfortably on room air patient was noticed to have more swelling and some drainage from the dorsum aspect of the right foot, also complaining of pain to the right foot but no purulent drainage has been reported Patient did have white count is up to 26.8, the patient creatinine is 1.03, blood and local cultures are so far negative, patient stool for C. diff negative on 03/28/2023, repeat culture has been obtained today Objective - Vital Signs Vital signs: Vital Signs Temp 98.5 F 03/31/23 07:21 Pulse 80 03/31/23 07:38 Resp 18 03/31/23 07:21 BP 146/62 03/31/23 07:21 Pulse Ox 96 03/31/23 07:21 FiO2 Intake & Output 03/30/23 03/31/23 03/31/23 18:59 06:59 18:59 Output Total 250 200 Balance -250 -200 Weight 137.2 kg Output: Urine 250 200 Other: Voiding Method Urinal # Voids 3 2 - Exam GENERAL DESCRIPTION: An elderly male lying in bed in no distress RESPIRATORY SYSTEM: Unlabored breathing , decreased breath sounds at bases HEART: S1 S2 regular rate and rhythm , ABDOMEN: Soft , no tenderness EXTREMITIES: Right foot dorsum did have a skin necrosis and possible hematoma deep culture were obtained - Labs CBC & Chem 7: 04/01/23 04:26 04/01/23 04:26 Labs: Abnormal Lab Results - Last 24 Hours (Table) 03/30/23 03/30/23 03/31/23 Range/Units 16:48 20:26 01:52 WBC (3.8-10.6) k/uL RBC (4.30-5.90) m/uL Hgb (13.0-17.5) gm/dL Hct (39.0-53.0) % RDW (11.5-15.5) % Sodium (137-145) mmol/L Carbon Dioxide (22-30) mmol/L BUN (9-20) mg/dL Glucose (74-99) mg/dL POC Glucose (mg/dL) 161 H 141 H 125 H (70-110) mg/dL Calcium (8.4-10.2) mg/dL 03/31/23 03/31/23 03/31/23 Range/Units 05:52 06:34 06:34 WBC 26.8 H (3.8-10.6) k/uL RBC 4.08 L (4.30-5.90) m/uL Hgb 11.3 L (13.0-17.5) gm/dL Hct 34.4 L (39.0-53.0) % RDW 16.2 H (11.5-15.5) % Sodium 132 L (137-145) mmol/L Carbon Dioxide 19 L (22-30) mmol/L BUN 27 H (9-20) mg/dL Glucose 112 H (74-99) mg/dL POC Glucose (mg/dL) 130 H (70-110) mg/dL Calcium 7.6 L (8.4-10.2) mg/dL Microbiology - Last 24 Hours (Table) 03/25/23 14:30 Blood Culture - Final Blood 03/25/23 14:45 Blood Culture - Final Blood Assessment and Plan (1) Cellulitis of right leg Current Visit: Yes Status: Acute Code(s): L03.115 - CELLULITIS OF RIGHT LOWER LIMB SNOMED Code(s): 664261515 (2) Chronic cutaneous venous stasis ulcer Current Visit: No Status: Acute Code(s): I83.009 - VARICOSE VEINS OF UNSP LOWER EXTREMITY W ULCER OF UNSP SITE; L97.909 - NON-PRS CHRONIC ULC UNSP PRT OF UNSP LOW LEG W UNSP SEVERITY SNOMED Code(s): 29549156 Plan: 1patient was in the hospital with increasing pain swelling redness of the right lower extremity in this patient who do have a history of venous stasis ulcer to right lower extremity and concerning for cellulitis likely from gram-positive skin noe 2local wound care with Aquacel silver dressing and mild compression dressing. 3-Patient noticed to have swelling and skin necrosis on the dorsum aspect of the right foot due to a total pain patient been evaluated by vascular surgery for possible debridement and deep cultures antibiotic has been switched over to Zo syn and doxycycline and will be adjusted further on the basis of culture Dictation was produced using [employer]ation software. please excuse any grammatical, word or spelling errors. Time with Patient: Less than 30
--- NOTE | 2023-04-01 17:47 | P.PN ---
Subjective Progress Note Date: 04/01/23 Principal diagnosis: Right lower extremity wound and cellulitis Patient is a 77-year-old male with a past medical history negative for hypertension hyperlipidemia diabetes mellitus PE patient also have a lower extremity venous stasis ulcer and history of recurrent cellulitis patient presenting to the hospital concerning for right leg infection patient noticed to have increasing redness to discomfort and drainage to the right lower extremity, admitted to the ICU because of hypoglycemia On today's evaluation that is 04/01/2023, the patient remains to be afebrile, t he patient is breathing comfortably on room air patient denies any chest pain shortness of breath or cough no abdominal pain no worsening diarrhea, pain to the right foot is currently controlled Patient did have white count is slightly down to 26.32, the patient creatinine is 1.1, repeat blood cultures currently pending local cultures obtained 03/31/2023 currently pending stool for C. diff negative on 03/28/2023 Objective - Vital Signs Vital signs: Vital Signs Temp 98.2 F 04/01/23 07:34 Pulse 72 04/01/23 15:00 Resp 18 04/01/23 07:34 BP 106/58 04/01/23 13:10 Pulse Ox 91 L 04/01/23 07:34 FiO2 Intake & Output 03/31/23 04/01/23 04/01/23 18:59 06:59 18:59 Output Total 620 Balance -620 Output: Urine 620 Other: Voiding Method Urinal Urinal Urinal # Voids 2 1 # Bowel Movements 1 - Exam GENERAL DESCRIPTION: An elderly male lying in bed in no distress RESPIRATORY SYSTEM: Unlabored breathing , decreased breath sounds at bases HEART: S1 S2 regular rate and rhythm , ABDOMEN: Soft , no tenderness EXTREMITIES: Right foot dorsum wound is currently dressed with minimal blood stained drainage on the dressing - Labs CBC & Chem 7: 04/01/23 04:26 04/01/23 04:26 Labs: Abnormal Lab Results - Last 24 Hours (Table) 03/31/23 03/31/23 04/01/23 Range/Units 16:47 20:55 01:46 WBC (4.50-10.00) X 10*3/uL RBC (4.40-5.60) X 10*6/uL Hgb (13.0-17.0) d/dL Hct (39.6-50.0) % MCH (27.0-32.0) pg RDW (11.5-14.5) % NRBC/100 WBC Diff (0.00-0.01) X 10*3/uL Sodium (135-145) mmol/L Carbon Dioxide (21.6-31.8) mmol/L Glucose (70-110) mg/dL POC Glucose (mg/dL) 184 H 146 H 153 H (70-110) mg/dL Calcium (8.7-10.3) mg/dL C-Reactive Protein (0.00-0.80) mg/dL 04/01/23 04/01/23 04/01/23 Range/Units 04:26 04:26 06:01 WBC 26.32 H (4.50-10.00) X 10*3/uL RBC 3.84 L (4.40-5.60) X 10*6/uL Hgb 10.1 L (13.0-17.0) d/dL Hct 31.3 L (39.6-50.0) % MCH 26.3 L (27.0-32.0) pg RDW 16.8 H (11.5-14.5) % NRBC/100 WBC Diff 0.02 H (0.00-0.01) X 10*3/uL Sodium 134 L (135-145) mmol/L Carbon Dioxide 20.4 L (21.6-31.8) mmol/L Glucose 134 H (70-110) mg/dL POC Glucose (mg/dL) 157 H (70-110) mg/dL Calcium 8.0 L (8.7-10.3) mg/dL C-Reactive Protein 19.50 H (0.00-0.80) mg/dL 04/01/23 Range/Units 11:37 WBC (4.50-10.00) X 10*3/uL RBC (4.40-5.60) X 10*6/uL Hgb (13.0-17.0) d/dL Hct (39.6-50.0) % MCH (27.0-32.0) pg RDW (11.5-14.5) % NRBC/100 WBC Diff (0.00-0.01) X 10*3/uL Sodium (135-145) mmol/L Carbon Dioxide (21.6-31.8) mmol/L Glucose (70-110) mg/dL POC Glucose (mg/dL) 152 H (70-110) mg/dL Calcium (8.7-10.3) mg/dL C-Reactive Protein (0.00-0.80) mg/dL Microbiology - Last 24 Hours (Table) 03/31/23 12:24 Gram Stain - Preliminary Foot - Right 03/30/23 09:56 Blood Culture - Preliminary Blood Assessment and Plan (1) Cellulitis of right leg Current Visit: Yes Status: Acute Code(s): L03.115 - CELLULITIS OF RIGHT LOWER LIMB SNOMED Code(s): 702764454 (2) Chronic cutaneous venous stasis ulcer Current Visit: No Status: Acute Code(s): I83.009 - VARICOSE VEINS OF UNSP LOWER EXTREMITY W ULCER OF UNSP SITE; L97.909 - NON-PRS CHRONIC ULC UNSP PRT OF UNSP LOW LEG W UNSP SEVERITY SNOMED Code(s): 14335124 Plan: 1patient was in the hospital with increasing pain swelling redness of the right lower extremity in this patient who do have a history of venous stasis ulcer to right lower extremity and concerning for cellulitis likely from gram-positive skin noe 2local wound care with Aquacel silver dressing and mild compression dressing. 3-Patient noticed to have swelling and skin necrosis on the dorsum aspect of the right foot, has been evaluated Vascular surgery status post debridement and deep cultures 4-continue the patient on Zosyn however discontinued doxycycline and start the patient on daptomycin while waiting for the culture finalized as the patient still have elevated white count Dictation was produced using [employer] dictation software. please excuse any grammatical, word or spelling errors. Time with Patient: Less than 30
[2023-04-01 20:28] LABS: Glucose,Whole Blood 164 mg/dL (70-110)
[2023-04-01] MEDS: MONTELUKAST 10 MG TAB PO SCH (22:04)
[2023-04-02] MEDS: HYDROmorphone 0.5 MG/0.5 ML SYRINGE IVP PRN ×3 (00:54→09:42)
[2023-04-02 02:00] LABS: Glucose,Whole Blood 156 mg/dL (70-110)
[2023-04-02] MEDS: INSULIN ASPART (NovoLOG) 100 UNIT/ML VIAL SQ SCH ×5 (02:19→20:56)
[2023-04-02] MEDS: PIPERACILLIN-TAZOBACTAM 3.375 GM in SODIUM CHLORIDE 0.9% 100 ML IVPB SCH ×3 (02:20→17:57)
[2023-04-02] MEDS: LEVOTHYROXINE 100 MCG TAB PO SCH (05:35)
[2023-04-02 05:59] LABS: Glucose,Whole Blood 122 mg/dL (70-110)
[2023-04-02] MEDS: MIDODRINE 5 MG TAB PO SCH ×3 (06:43→17:19)
[2023-04-02 08:45] LABS: HCT 34.2 % (39.6-50.0); HGB 10.9 d/dL (13.0-17.0); MCH 26.3 pg (27.0-32.0); MCHC 31.9 d/dL (32.0-37.0); MCV 82.4 FL (80.0-97.0); NRBC Per 100 WBC 0 X 10*3/uL (0.00-0.01); Platelet Count 451 X 10*3/uL (140-440); RBC 4.15 X 10*6/uL (4.40-5.60); WBC 24.42 X 10*3/uL (4.50-10.00)
[2023-04-02] MEDS: ALBUTEROL NEBULIZED 2.5 MG/3 ML INHALATION SCH ×4 (09:07→21:20)
[2023-04-02] MEDS: SYMBICORT 80-4.5 MCG INHALER INHALATION SCH ×2 (09:07→21:20)
[2023-04-02] MEDS: ENOXAPARIN 100 MG/ML SYRINGE SQ SCH ×2 (09:08→20:57)
[2023-04-02] MEDS: CHOLESTYRAMINE (WITH SUGAR) 4 GM PACKET PO SCH ×2 (09:08→17:57)
[2023-04-02 09:33] LABS: BUN/Creat Ratio 16.75 Ratio (12.00-20.00); Blood Urea Nitrogen 20.1 mg/dL (9.0-27.0); Calcium 8.2 mg/dL (8.7-10.3); Chloride 102 mmol/L (96-109); Glucose 116 mg/dL (70-110); Potassium 4.2 mmol/L (3.5-5.5); Sodium 136 mmol/L (135-145)
--- NOTE | 2023-04-02 10:10 | P.PN ---
Subjective Patient is seen in follow-up for acute kidney injury. Sitting up in chair. Oral intake is fair. No vomiting or diarrhea. Renal function fairly stable. Admits to good urine output. Vital signs are stable. General: No acute distress. HEENT: Head exam is unremarkable. LUNGS: No audible rhonchi or wheezes. HEART: Rate and Rhythm are regular. ABDOMEN: Nontender, obese. EXTREMITITES: Erythema noted. 1+ edema. No drainage. Right lower extremity wrapped. Objective - Vital Signs Vital signs: Vital Signs Temp 97.7 F 04/02/23 07:36 Pulse 78 04/02/23 09:20 Resp 18 04/02/23 07:36 BP 116/66 04/02/23 07:36 Pulse Ox 94 L 04/02/23 07:36 FiO2 Intake & Output 04/01/23 04/02/23 04/02/23 18:59 06:59 18:59 Intake Total 800 Output Total 620 Balance 180 Intake: Oral 800 Output: Urine 620 Other: Voiding Method Urinal Urinal # Voids 1 # Bowel Movements 1 - Labs CBC & Chem 7: 04/02/23 05:20 04/02/23 05:20 Labs: Abnormal Lab Results - Last 24 Hours (Table) 04/01/23 04/01/23 04/01/23 Range/Units 11:37 16:16 20:24 WBC (4.50-10.00) X 10*3/uL RBC (4.40-5.60) X 10*6/uL Hgb (13.0-17.0) d/dL Hct (39.6-50.0) % MCH (27.0-32.0) pg MCHC (32.0-37.0) d/dL RDW (11.5-14.5) % Plt Count (140-440) X 10*3/uL Carbon Dioxide (21.6-31.8) mmol/L Anion Gap (4.00-12.00) mmol/L Glucose (70-110) mg/dL POC Glucose (mg/dL) 152 H 165 H 164 H (70-110) mg/dL Calcium (8.7-10.3) mg/dL C-Reactive Protein (0.00-0.80) mg/dL 04/02/23 04/02/23 04/02/23 Range/Units 01:58 05:20 05:20 WBC 24.42 H (4.50-10.00) X 10*3/uL RBC 4.15 L (4.40-5.60) X 10*6/uL Hgb 10.9 L (13.0-17.0) d/dL Hct 34.2 L (39.6-50.0) % MCH 26.3 L (27.0-32.0) pg MCHC 31.9 L (32.0-37.0) d/dL RDW 17.0 H (11.5-14.5) % Plt Count 451 H (140-440) X 10*3/uL Carbon Dioxide 19.0 L (21.6-31.8) mmol/L Anion Gap 15.00 H (4.00-12.00) mmol/L Glucose 116 H (70-110) mg/dL POC Glucose (mg/dL) 156 H (70-110) mg/dL Calcium 8.2 L (8.7-10.3) mg/dL C-Reactive Protein 17.90 H (0.00-0.80) mg/dL 04/02/23 Range/Units 05:57 WBC (4.50-10.00) X 10*3/uL RBC (4.40-5.60) X 10*6/uL Hgb (13.0-17.0) d/dL Hct (39.6-50.0) % MCH (27.0-32.0) pg MCHC (32.0-37.0) d/dL RDW (11.5-14.5) % Plt Count (140-440) X 10*3/uL Carbon Dioxide (21.6-31.8) mmol/L Anion Gap (4.00-12.00) mmol/L Glucose (70-110) mg/dL POC Glucose (mg/dL) 122 H (70-110) mg/dL Calcium (8.7-10.3) mg/dL C-Reactive Protein (0.00-0.80) mg/dL Microbiology - Last 24 Hours (Table) 03/31/23 12:24 Gram Stain - Preliminary Foot - Right Wound Culture - Preliminary Gram Neg Bacilli 03/30/23 09:56 Blood Culture - Preliminary Blood Assessment and Plan Plan: Assessment: 1. Acute kidney injury secondary to ATN secondary to hypotension and infection. Improved. Creatinine stable at 1.2. 2. Lower extremity cellulitis on antibiotics. Wound culture positive for gram- negative bacilli. 3. Right lower extremity DVT with history of PE on anticoagulation. 4. Diabetes mellitus. 5. Edema. Status post IV Lasix 04/01/2023. Plan: Encourage oral intake. Avoid nephrotoxins. Continue to monitor renal function and urine output. Plan to resume oral Lasix starting tomorrow.
[2023-04-02] MEDS: FAMOTIDINE 20 MG/2 ML VIAL IV SCH ×2 (10:55→20:55)
[2023-04-02 12:12] LABS: Glucose,Whole Blood 143 mg/dL (70-110)
--- NOTE | 2023-04-02 12:59 | P.PN ---
Progress Note - Text 77-year-old gentleman history of 4 lymphedema of the right lower extremity with marked swelling history of chronic DVT right lower ex extremity has been coming to the wound clinic for long period of time he is on lymphedema pump which he uses twice a day. Patient developed some necrosis of the skin on the dorsal aspect of the right foot we did the debridement and a he's is on X a silver rope and also patient has a cellulitis with ulcer on the medial aspect of the right lower extremity we've been using X a silver patient has extensive lymphedema and swelling of the right lower extremity which is chronic. Patient also has acute kidney injury and history of diabetes we have changed the dressing today dressing should be changed every 48 hours prognosis is guarded
--- NOTE | 2023-04-02 13:59 | P.PN ---
Subjective Progress Note Date: 04/02/23 I am seeing this patient in new consultation today 03/26/2023 for persistent and refractory hypoglycemia. Patient is a 77-year-old male with past medical history significant for diabetes mellitus type 2, hypothyroidism, factor V Leyden mutation, right lower extremity DVT, pulmonary embolism, recurrent lower extremity cellulitis, hypertension, hyperlipidemia, severe persistent asthma, GERD. His primary care provider is Dr. Tatyana Mora. Patient came to the emergency room yesterday afternoon complaining of increased redness and swelling of bilateral legs, but his right lower extremity is worse. He says that he has noticed increased redness and drainage over the last 2 weeks. This has been accompanied with fevers and generalized malaise. The patient was admitted to the hospital on IV antibiotics in the form of Zosyn. While on the general medical floor, the patient was found to be profoundly hypoglycemic. This was refractory to multiple administrations of D50W. In fact, it looks like he's had over 8 amps of D50W over the last 12 hours. He has been started on a D10W infusion at 100 ML's per hour. Patient is currently sitting up in bed, on room air, in no acute distress. He is asymptomatic even when hypoglycemic. He has not received any long-acting insulin, metformin, or sulfonylureas while in the hospital. He normally takes metformin and Glipizide at home, but has not had a dose this admission. He has NovoLog sliding scale insulin ordered, but has not received any because of his hypoglycemia. Denies any liver disease, active cancer, alcoholism. Most recent CBC is unremarkable. BMP shows sodium 128, potassium 4.5, chloride 99, serum bicarb 22, BUN 41, creatinine 1.54, glucose 35. LFTs on arrival were nonelevated. Patient is hemodynamically stable, but warrants close monitoring and intensive care unit. 03/26/2023, the patient is being seen for a follow-up. He is awake and is communicating. He has chronic lymphedema in the right lower extremity with wound and cellulitis. The wound has been debrided and the surface is quite ulcerated and erythematous with some serous material draining from the wound surface. There is also extensive edema in the right lower extremity along with erythema. He remains on anticoagulation with that also. He has been diabetic and the patient was taking oral hypoglycemic medication. The patient developed severe hypoglycemia and for that reason he was hospitalized and brought into the intensive care unit and currently is on D10 which is running at 100 mL an hour. Most recent blood sugar is at 115. He is hemodynamically stable. He is on IV Zosyn. He is afebrile. Most recent BP is 93/66 and the patient has not req uired any pressors. Producing adequate amount of urine output. His white cell cause of 9.2 with a hemoglobin 11.7 and a platelet count of 159. Sodium level is at 128 and the potassium levels at 4.5, BUN is at 45 with a creatinine of 1.5. Noted the patient was hospitalized with an acute kidney injury and the creatinine was as high as 1.9 and the renal function continues to improve. Serum cortisol level is at 22. Lactic acid level was as high as 2.8 and dropped down to 1.9. Cultures have been sent and the results are still pending for now. 03/27/2023, the patient is sitting up on a chair and is calm and comfortable. Noted overnight, the patient became progressively more hypotensive. He was started on norepinephrine and currently the norepinephrine is O- dose of 0.04 mcg/kg/m. He was also started on midodrine. He is producing adequate amount of urine output. Creatinine is improving and current labs show a BUN of 33 with a creatinine of 1.39. Sodium is at 128 as the patient was receiving D5 water regarding progressive hypoglycemia. The WBC was a 12.6 with a hemoglobin of 1 1.3 and a platelet count of 199. The most recent blood sugars at 199. The repeat Accu-Cheks have shown adequate blood sugar control and based on that, the patient was taken off the D10 and she was switched to D5 which is running at 50 mL an hour. He is also tolerating his diet. No altered mentation. No chest pain. No shortness of breath. He is on room air oxygen. Cultures are still negative. Opticell applied to his right lower extremity in the legs are wrapped for now. 03/28/2023, the patient is still requiring low-dose of norepinephrine for blood pressure control and norepinephrine is running at 0.03 mcg/kg/m. He has borderline hypotensive secondary to sepsis and cellulitis of the right lower extremity. The patient in the being covered with IV Zosyn. Cultures from the wound came back positive for enterococcus group D, staph aureus and gram- negative bacillus. The patient also had many normal skin noe. The patient's white cell count is down to 10.8 with a hemoglobin of 10.3 and a platelet count of 188. His BUN is at 31 with a creatinine of 1.4 which is improved and the sodium level is at 1:30. His blood sugars are maintained above 100 and the patient is currently off D5 infusion. The blood cultures have been negative thus far after 48 hours growth. Echocardiogram was completed yesterday and it showed a left ventricular ejection fraction of 40-45% which was mildly impaired and there was mild septal wall thickening and the patient was also identified to have severe aortic stenosis with a gradient of 78 mmHg peak and mean gradient of 43. Is also mild aortic regurgitation. 03/29/2023, the patient is off pressors and his been of present since 11 AM yesterday. He is hemodynamically stable and is maintaining his own blood pressure. Cellulitis is improving in his right lower extremity. The patient's has no specific complaints. The LAD oxygen. Creatinine is down to 1.2. Rest of the blood work on this patient shows a WBC count of 10 with a hemoglobin of 10.6 and a platelet count of 228. Sodium level is at the 131. The patient had no further episodes of hypoglycemia. Blood sugars under adequate control. He is on a slight scale insulin coverage. I separate note, he was found to have severe aortic stenosis on his echocardiogram. Cardiology is on the case for now. As mentioned, the cellulitis of the right lower oximetry is also improvin g. We're doing wound care. 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 No interventions were recommended this point in time. The patient has a chronic venous ulcer which is being treated On 03/30/2023, the patient is being seen for a follow-up. He was moved out of the intensive care unit yesterday. He is having diarrhea and stool was checked for C. diff. The patient has been switched to IV cefazolin. The patient has no new complaints otherwise for now. No respiratory difficulties. The white cell count of 18.8 with a hemoglobin of 10.9. BUN is at 27 with a creatinine of 1.3 and a sodium levels of 132. No shortness of breath. No chest pain. Vitals are stable and the patient is currently on room air oxygen. On today's evaluation of 03/31/2023, the patient remains on the medical floor. The patient was transferred out of the intensive care unit. He has severe aortic stenosis the also was hypotensive due to sepsis and cellulitis and he also had a skin wound/necrosis and his right lower extremity. The patient was seen by vascular surgery and the patient underwent debridement. Deep tissue culture was also taken. The patient's white cell count normalized and is up to 26 and the patient was placed back on IV Zosyn. Hemoglobin stable at 11.3. BUN is at 27 with a creatinine of 1 and a sodium level is at 132. No episodes of hypoglycemia this point in time. The patient is onthe coverage and oral hypoglycemic medications has been held. On a separate note, the patient was also having diarrhea. Stool for C. diff has been negative. On 04/01/2023, the patient is resting comfortably in bed. No new complaints. Surgical debridement of the right lower extremity wound has been done. The white cell count remains elevated at 26. He was having diarrhea and this is gradually improving. The patient's stool for C. diff has been negative and the patient remains on IV Zosyn. No other significant events overnight. Hemoglobin stable at 10.1. BUN is at 21 with a creatinine of 1.1 and his sodium level is at 134. The patient is seen today 04/02/2023 in follow-up on the regular medical floor. He is currently resting comfortably in bed. Awake and alert in no acute distress. He is maintaining O2 saturations in the 90s on room air. His right lower extremity wound is positive for gram-negative bacilli. He is currently on Zosyn and daptomycin. Remains on Lovenox. White count 24.4. Hemoglobin 10.9. Late Mason for 51. Sodium 136. Potassium 4.2. Bicarb 19. BUN 20. Creatinine 1.2. Glucose 116. He is continued on Ventolin, Symbicort, Singulair. Dressing to the right lower extremity remains dry and intact. Objective - Vital Signs Vital signs: Vital Signs Temp 97.7 F 04/02/23 07:36 Pulse 106 H 04/02/23 12:09 Resp 18 04/02/23 07:36 BP 117/73 04/02/23 12:09 Pulse Ox 94 L 04/02/23 07:36 FiO2 Intake & Output 04/01/23 04/02/23 04/02/23 18:59 06:59 18:59 Intake Total 800 Output Total 620 Balance 180 Intake: Oral 800 Output: Urine 620 Other: Voiding Method Urinal Urinal Urinal # Voids 1 # Bowel Movements 1 - Exam GENERAL EXAM: Alert, 77-year-old male, on room air, fairly comfortable in no apparent distress. HEAD: Normocephalic and atraumatic EYES: Normal reaction of pupils, equal size. NOSE: Clear with pink turbinates. THROAT: No erythema or exudates. NECK: No masses, no JVD. CHEST: No chest wall deformity. LUNGS: Equal air entry with bibasilar inspiratory crackles. No wheezes, rhonchi, focal dullness. CVS: S1 and S2 normal with systolic ejection murmur grade 3/6 audible murmur, regular rhythm. No extra heart sounds ABDOMEN: Obese abdomen, No hepatosplenomegaly, active bowel sounds, no guarding or rigidity. SPINE: No scoliosis or deformity SKIN: Bilateral lower extremity erythema with purulent drainage. CENTRAL NERVOUS SYSTEM: No focal deficits, tone is normal in all 4 extremities. EXTREMITIES: Right lower extremity is grossly enlarged and erythemic. Left lower extremity is also edematous, with opticell silver and the erythema is improved considerably and wrapped in Kerlix. Peripheral pulses are intact. - Labs CBC & Chem 7: 04/02/23 05:20 04/02/23 05:20 Labs: Abnormal Lab Results - Last 24 Hours (Table) 04/01/23 04/01/23 04/02/23 Range/Units 16:16 20:24 01:58 WBC (4.50-10.00) X 10*3/uL RBC (4.40-5.60) X 10*6/uL Hgb (13.0-17.0) d/dL Hct (39.6-50.0) % MCH (27.0-32.0) pg MCHC (32.0-37.0) d/dL RDW (11.5-14.5) % Plt Count (140-440) X 10*3/uL Carbon Dioxide (21.6-31.8) mmol/L Anion Gap (4.00-12.00) mmol/L Glucose (70-110) mg/dL POC Glucose (mg/dL) 165 H 164 H 156 H (70-110) mg/dL Calcium (8.7-10.3) mg/dL C-Reactive Protein (0.00-0.80) mg/dL 04/02/23 04/02/23 04/02/23 Range/Units 05:20 05:20 05:57 WBC 24.42 H (4.50-10.00) X 10*3/uL RBC 4.15 L (4.40-5.60) X 10*6/uL Hgb 10.9 L (13.0-17.0) d/dL Hct 34.2 L (39.6-50.0) % MCH 26.3 L (27.0-32.0) pg MCHC 31.9 L (32.0-37.0) d/dL RDW 17.0 H (11.5-14.5) % Plt Count 451 H (140-440) X 10*3/uL Carbon Dioxide 19.0 L (21.6-31.8) mmol/L Anion Gap 15.00 H (4.00-12.00) mmol/L Glucose 116 H (70-110) mg/dL POC Glucose (mg/dL) 122 H (70-110) mg/dL Calcium 8.2 L (8.7-10.3) mg/dL C-Reactive Protein 17.90 H (0.00-0.80) mg/dL 04/02/23 Range/Units 12:11 WBC (4.50-10.00) X 10*3/uL RBC (4.40-5.60) X 10*6/uL Hgb (13.0-17.0) d/dL Hct (39.6-50.0) % MCH (27.0-32.0) pg MCHC (32.0-37.0) d/dL RDW (11.5-14.5) % Plt Count (140-440) X 10*3/uL Carbon Dioxide (21.6-31.8) mmol/L Anion Gap (4.00-12.00) mmol/L Glucose (70-110) mg/dL POC Glucose (mg/dL) 143 H (70-110) mg/dL Calcium (8.7-10.3) mg/dL C-Reactive Protein (0.00-0.80) mg/dL Microbiology - Last 24 Hours (Table) 03/31/23 12:24 Gram Stain - Preliminary Foot - Right Wound Culture - Preliminary Gram Neg Bacilli 03/30/23 09:56 Blood Culture - Preliminary Blood Assessment and Plan Assessment: Diabetes mellitus with episodes Hypoglycemia refractory to glucose replacement, improved and the patient is currently off oral hypoglycemic medication and the patient is also off the D5 infusion. He'll be offered insulin sliding scale coverage only at this point in time. No further episodes of hypoglycemia Bilateral lower extremity cellulitis, worse in the right lower extremity and the patient has a superficial wound that has been debrided and there is a wound covering the anterior aspect of the right lower extremity was erythematous and draining minimally, nonpurulent material. Cultures are polymicrobial including enterococcus group D and gram-negative based on that recently rise in the white cell count, the patient was switched to IV Zosyn and daptomycin. Acute leukocytosis Diarrhea , stool for C. 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 Severe aortic stenosis with a peak gradient of 78 and mean gradient of 43 mmHg History of right lower extremity DVT and pulmonary embolism anticoagulated on Xarelto, repeat ultrasound shows a chronic clot in the right lower extremity involving the common femoral vein extending to mid femoral vein. History of factor V Leyden mutation Acute kidney injury, improved Mild hyponatremia, improving Diabetes mellitus type 2, [id number], normally managed with metformin on an outpatient basis Essential hypertension Hyperlipidemia Severe persistent asthma, stable Plan: The patient was seen and evaluated Labs and medications reviewed Stable and on room air Remains on daptomycin and Zosyn Continued on therapeutic Lovenox for now Resume Xarelto after no further procedures per vascular surgery We will continue to follow I have personally seen and examined the patient, performed the documentation and the assessment and plan as written. Number of minutes spent on the visit: 10.
[2023-04-02] MEDS: HYDROcodone/APAP 10-325MG 1 EACH TAB PO PRN ×2 (14:07→21:04)
--- NOTE | 2023-04-02 15:49 | P.PN ---
Subjective Progress Note Date: 04/02/23 77 years old male with multiple medical problems as below, he has history of DVT/PE on a blood thinner, currently on xarelto, diabetes mellitus, hypertension, hyperlipidemia, osteoarthritis, hyperthyroidism. Patient is admitted with worsening right leg swelling for the last 2 weeks as he explains to me with mild pain or discomfort in the area.. Also patient presents because of hypoglycemia. Patient was taken several of diabetes medications including metformin, Actos and glipizide 20 mg daily which patient was taken every day however he says that he had low appetite over the last 10 days and he was not eating well. Patient currently complaining of from 3-4/10 pain in his right leg. Patient can walk at home using a cane as he explains to me. Patient is fully awake and oriented and denies any other complaints. No chest pain or dyspnea. No new GI or urinary complaints. No headache dizziness we akness or numbness Patient says that he was taking testosterone at home to prevent him from falling down and other male characters 04/15/2023 Patient clinically looks the same, direct but answers questions appropriately. He denies any specific pain or discomfort. He was admitted with right leg cellulitis and currently is with Zeus wrap and he had loose bowel movement 1: No abdominal pain. His blood pressure on the low side requiring midodrine 10 mg and to make her on Levophed. Thank you again at 0.06 g per KG per minute. Also he is getting normal saline at 50 mL/h. Sugars start picking up today more than 200 therefore was started and Actos. This followed now is D5 normal saline at 50 mL/h. He is on Xarelto Uriostegui history of DVT/PE. 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 Patient currently on Zosyn without edema the case. History of heart were small dose of pressors of Levophed improvement from 0.06 down to 0.03. Also he is on midodrine 10 mg 3 times a day. He is awake alert and comfortable, no new complaint compared to yesterday for the patient's site. Remains on blood thinners Xarelto for his history of right lower extremity DVT and PE. Credit Card Control Clerk has been consulted for bradycardia and echocardiogram showing severe aortic stenosis.Echocardiogram showed ejection fraction of 40-45% He is off IV fluids. Insulin controlled on insulin sliding scale. Glipizide, metformin and Actos on hold. Also Cardizem is on hold. 03/29: Patient seen and evaluated bedside. Patient is alert and oriented 3. Right proximity cellulitis. Patient was treated with IV antibiotics on Zosyn. Noted to have episode of fever infectious disease following 03/30: Patient seen and evaluated bedside. Patient noted to have episode of fever and elevated W BC count overnight. We'll get CT right lower extremity to rule out abscess. Patient complained of diarrhea however stool was negative for C. diff checked while in ICU 03/31: Patient seen and evaluated bedside. Patient does complain of right lower extremity pain. Right foot exam does raise suspicion for abscess. CT right lo wer extremity completed antibiotic escalated to Zosyn and doxycycline. General surgery consulted. Xarelto discontinued in anticipation of incision and drainage 04/01 : Patient seen and evaluated at bedside, patient was seen by vascular surgery yesterday and had incision and drainage of left foot,. General surgery consult was canceled. Antibiotics broadened on Zosyn and Doxy to be continued will follow up on recommendations from infectious disease. says his pain is better controlled after procedure yesterday. Xarelto continues to remain on hold however patient started on therapeutic dose of Lovenox in case he needs more intervention 04/02. Patient seen and examined. Still complaining of pain in right lower extremity, bandage in place, dressing was changed by vascular this morning REVIEW OF SYSTEMS: CONSTITUTIONAL: No fever, no malaise,. CARDIOVASCULAR: No chest pain, no palpitations, no syncope. PULMONARY: No shortness of breath, no cough, GASTROINTESTINAL: No diarrhea, no nausea, no vomiting, no abdominal pain. NEUROLOGICAL: No headaches, no weakness, PHYSICAL EXAMINATION: GENERAL: The patient is alert and oriented x3, not in any acute distress. Well developed, well nourished. HEENT: Pupils are round and equally reacting to light. EOMI. No scleral icterus. No conjunctival pallor. Normocephalic, atraumatic. No pharyngeal erythema. No thyromegaly. CARDIOVASCULAR: S1 and S2 present. No murmurs, rubs, or gallops. PULMONARY: Chest is clear to auscultation, no wheezing or crackles. ABDOMEN: Soft, nontender, nondistended, normoactive bowel sounds. No palpable organomegaly. MUSCULOSKELETAL: Right lower extremity bandage seen NEUROLOGICAL: Gross neurological examination did not reveal any focal deficits. SKIN: No rashes. Assessment and plan Acute right leg cellulitis, with abscess Septic shock Resolved Cardiomyopathy with ejection fraction 40-45% Severe aortic stenosis Diabetes mellitus, with hypoglycemia, present on admission decreased appetite secondary to above Hypertension Hyperlipidemia History of osteoarthritis Hypothyroidism History of DVT/PE on Xarelto prior to this admission Plan: In regard to RLE cellulitis > patient transition back to IV Zosyn , initiated doxycycline 03/31 CT right lower extremity negative for necrotizing fasciitis does show diffuse edema, vascular surgery did I&D on 03/31 . Continue wound care. Discussed with patient in detail regarding his poor wound healing, discussed with him palliative care option, patient wants to think about it In regards to sepsis, patient was in intensive care unit resuscitated and transferred to general medical floor. 03/30 noted to have fever repeat blood cultures no growth In regards to history of aortic stenosis patient seen by cardiology, episode of bradycardia continue to monitor In regards to history of pulmonary embolism, Discontinued Xarelto 03/31 >> in anticipation of surgical intervention, currently on Lovenox 04/01 therapeutic dose Continue with blood pressure support with Midodrine In regards to diabetes mellitus continue patient on Accu-Cheks before meals and at bedtime continue sliding insulin DVT prophylaxis: Xarelto placed on hold, on Lovenox therapeutic dose GI prophylaxis: Pepcid Labs and medication were reviewed.. Continue same treatment. Continue with symptomatic treatment. Resume home medication. Monitor labs and vitals. DVT and GI prophylaxis. Further recommendations as per clinical course of the patient Dictation was produced using [employer] dictation software. please excuse any grammatical, word or spelling errors. Objective - Vital Signs Vital signs: Vital Signs Temp 97.7 F 04/02/23 07:36 Pulse 78 04/02/23 09:20 Resp 18 04/02/23 07:36 BP 116/66 04/02/23 07:36 Pulse Ox 94 L 04/02/23 07:36 FiO2 Intake & Output 04/01/23 04/02/23 04/02/23 18:59 06:59 18:59 Intake Total 800 Output Total 620 Balance 180 Intake: Oral 800 Output: Urine 620 Other: Voiding Method Urinal Urinal Urinal # Voids 1 # Bowel Movements 1 - Labs CBC & Chem 7: 04/02/23 05:20 04/02/23 05:20 Labs: Abnormal Lab Results - Last 24 Hours (Table) 04/01/23 04/01/23 04/02/23 Range/Units 16:16 20:24 01:58 WBC (4.50-10.00) X 10*3/uL RBC (4.40-5.60) X 10*6/uL Hgb (13.0-17.0) d/dL Hct (39.6-50.0) % MCH (27.0-32.0) pg MCHC (32.0-37.0) d/dL RDW (11.5-14.5) % Plt Count (140-440) X 10*3/uL Carbon Dioxide (21.6-31.8) mmol/L Anion Gap (4.00-12.00) mmol/L Glucose (70-110) mg/dL POC Glucose (mg/dL) 165 H 164 H 156 H (70-110) mg/dL Calcium (8.7-10.3) mg/dL C-Reactive Protein (0.00-0.80) mg/dL 04/02/23 04/02/23 04/02/23 Range/Units 05:20 05:20 05:57 WBC 24.42 H (4.50-10.00) X 10*3/uL RBC 4.15 L (4.40-5.60) X 10*6/uL Hgb 10.9 L (13.0-17.0) d/dL Hct 34.2 L (39.6-50.0) % MCH 26.3 L (27.0-32.0) pg MCHC 31.9 L (32.0-37.0) d/dL RDW 17.0 H (11.5-14.5) % Plt Count 451 H (140-440) X 10*3/uL Carbon Dioxide 19.0 L (21.6-31.8) mmol/L Anion Gap 15.00 H (4.00-12.00) mmol/L Glucose 116 H (70-110) mg/dL POC Glucose (mg/dL) 122 H (70-110) mg/dL Calcium 8.2 L (8.7-10.3) mg/dL C-Reactive Protein 17.90 H (0.00-0.80) mg/dL Microbiology - Last 24 Hours (Table) 03/31/23 12:24 Gram Stain - Preliminary Foot - Right Wound Culture - Preliminary Gram Neg Bacilli 03/30/23 09:56 Blood Culture - Preliminary Blood
[2023-04-02 16:44] LABS: Glucose,Whole Blood 223 mg/dL (70-110)
[2023-04-02 20:42] LABS: Glucose,Whole Blood 227 mg/dL (70-110)
[2023-04-02] MEDS: MONTELUKAST 10 MG TAB PO SCH (20:56)
[2023-04-03 01:57] LABS: Glucose,Whole Blood 136 mg/dL (70-110)
[2023-04-03] MEDS: INSULIN ASPART (NovoLOG) 100 UNIT/ML VIAL SQ SCH ×5 (02:06→21:45)
[2023-04-03] MEDS: HYDROcodone/APAP 10-325MG 1 EACH TAB PO PRN ×4 (02:13→19:55)
[2023-04-03] MEDS: PIPERACILLIN-TAZOBACTAM 3.375 GM in SODIUM CHLORIDE 0.9% 100 ML IVPB SCH ×3 (02:13→17:33)
[2023-04-03 05:29] LABS: Glucose,Whole Blood 142 mg/dL (70-110)
[2023-04-03] MEDS: MIDODRINE 5 MG TAB PO SCH ×3 (08:37→16:59)
[2023-04-03] MEDS: ENOXAPARIN 100 MG/ML SYRINGE SQ SCH ×2 (08:40→19:54)
[2023-04-03] MEDS: CHOLESTYRAMINE (WITH SUGAR) 4 GM PACKET PO SCH ×2 (08:40→17:23)
[2023-04-03] MEDS: LEVOTHYROXINE 100 MCG TAB PO SCH (08:41)
[2023-04-03] MEDS: FAMOTIDINE 20 MG/2 ML VIAL IV SCH ×2 (08:41→19:54)
[2023-04-03] MEDS: ALBUTEROL NEBULIZED 2.5 MG/3 ML INHALATION SCH ×4 (09:01→20:35)
[2023-04-03] MEDS: SYMBICORT 80-4.5 MCG INHALER INHALATION SCH ×2 (09:04→20:35)
[2023-04-03 11:08] LABS: Blood Urea Nitrogen 17.6 mg/dL (9.0-27.0); Calcium 7.8 mg/dL (8.7-10.3); Carbon Dioxide 20.8 mmol/L (21.6-31.8); Chloride 104 mmol/L (96-109); Glucose 122 mg/dL (70-110); Potassium 4.1 mmol/L (3.5-5.5); Sodium 136 mmol/L (135-145)
[2023-04-03 11:18] LABS: Glucose,Whole Blood 185 mg/dL (70-110)
--- NOTE | 2023-04-03 12:00 | P.PN ---
Subjective Patient is seen in follow-up for acute kidney injury. Sitting up in chair. Oral intake is fair. No vomiting or diarrhea. Renal function stable. Admits to good urine output. No active complaints. Vital signs are stable. General: No acute distress. HEENT: Head exam is unremarkable. LUNGS: No audible rhonchi or wheezes. HEART: Rate and Rhythm are regular. ABDOMEN: Nontender, obese. EXTREMITITES: Erythema noted. 1+ edema. No drainage. Right lower extremity wrapped. Objective - Vital Signs Vital signs: Vital Signs Temp 98.3 F 04/03/23 06:40 Pulse 80 04/03/23 09:19 Resp 17 04/03/23 06:40 BP 137/71 04/03/23 06:40 Pulse Ox 95 04/03/23 06:40 FiO2 Intake & Output 04/02/23 04/03/23 04/03/23 18:59 06:59 18:59 Output Total 500 400 Balance -500 -400 Output: Urine 500 400 Other: Voiding Method Urinal Bedside Commode # Bowel Movements 1 - Labs CBC & Chem 7: 04/02/23 05:20 04/03/23 05:07 Labs: Abnormal Lab Results - Last 24 Hours (Table) 04/02/23 04/02/23 04/02/23 Range/Units 12:11 16:43 20:40 Carbon Dioxide (21.6-31.8) mmol/L Glucose (70-110) mg/dL POC Glucose (mg/dL) 143 H 223 H 227 H (70-110) mg/dL Calcium (8.7-10.3) mg/dL 04/03/23 04/03/23 04/03/23 Range/Units 01:51 05:07 05:26 Carbon Dioxide 20.8 L (21.6-31.8) mmol/L Glucose 122 H (70-110) mg/dL POC Glucose (mg/dL) 136 H 142 H (70-110) mg/dL Calcium 7.8 L (8.7-10.3) mg/dL 04/03/23 Range/Units 11:16 Carbon Dioxide (21.6-31.8) mmol/L Glucose (70-110) mg/dL POC Glucose (mg/dL) 185 H (70-110) mg/dL Calcium (8.7-10.3) mg/dL Microbiology - Last 24 Hours (Table) 03/31/23 15:00 Gram Stain - Preliminary Foot - Right Tissue Culture - Preliminary Gram Neg Bacilli 03/31/23 12:24 Anaerobic Culture - Preliminary Foot - Right 03/31/23 12:24 Gram Stain - Final Foot - Right Wound Culture - Final Gram Neg Aiden Non-Beef Splitter 03/30/23 09:56 Blood Culture - Preliminary Blood Assessment and Plan Plan: Assessment: 1. Acute kidney injury secondary to ATN secondary to hypotension and infection. Improved. Creatinine stable at 1.1 today. 2. Lower extremity cellulitis on antibiotics. Wound culture positive for gram- negative bacilli. 3. Right lower extremity DVT with history of PE on anticoagulation. 4. Diabetes mellitus. 5. Edema. Status post IV Lasix 04/01/2023. Plan: Encourage oral intake. Avoid nephrotoxins. Continue to monitor renal function and urine output. Add oral Lasix 20 mg once daily.
--- NOTE | 2023-04-03 12:17 | P.PN ---
Subjective Progress Note Date: 04/03/23 I am seeing this patient in new consultation today 03/26/2023 for persistent and refractory hypoglycemia. Patient is a 77-year-old male with past medical history significant for diabetes mellitus type 2, hypothyroidism, factor V Leyden mutation, right lower extremity DVT, pulmonary embolism, recurrent lower extremity cellulitis, hypertension, hyperlipidemia, severe persistent asthma, GERD. His primary care provider is Dr. Tatyana Mora. Patient came to the emergency room yesterday afternoon complaining of increased redness and swelling of bilateral legs, but his right lower extremity is worse. He says that he has noticed increased redness and drainage over the last 2 weeks. This has been accompanied with fevers and generalized malaise. The patient was admitted to the hospital on IV antibiotics in the form of Zosyn. While on the general medical floor, the patient was found to be profoundly hypoglycemic. This was refractory to multiple administrations of D50W. In fact, it looks like he's had over 8 amps of D50W over the last 12 hours. He has been started on a D10W infusion at 100 ML's per hour. Patient is currently sitting up in bed, on room air, in no acute distress. He is asymptomatic even when hypoglycemic. He has not received any long-acting insulin, metformin, or sulfonylureas while in the hospital. He normally takes metformin and Glipizide at home, but has not had a dose this admission. He has NovoLog sliding scale insulin ordered, but has not received any because of his hypoglycemia. Denies any liver disease, active cancer, alcoholism. Most recent CBC is unremarkable. BMP shows sodium 128, potassium 4.5, chloride 99, serum bicarb 22, BUN 41, creatinine 1.54, glucose 35. LFTs on arrival were nonelevated. Patient is hemodynamically stable, but warrants close monitoring and intensive care unit. 03/26/2023, the patient is being seen for a follow-up. He is awake and is communicating. He has chronic lymphedema in the right lower extremity with wound and cellulitis. The wound has been debrided and the surface is quite ulcerated and erythematous with some serous material draining from the wound surface. There is also extensive edema in the right lower extremity along with erythema. He remains on anticoagulation with that also. He has been diabetic and the patient was taking oral hypoglycemic medication. The patient developed severe hypoglycemia and for that reason he was hospitalized and brought into the intensive care unit and currently is on D10 which is running at 100 mL an hour. Most recent blood sugar is at 115. He is hemodynamically stable. He is on IV Zosyn. He is afebrile. Most recent BP is 93/66 and the patient has not req uired any pressors. Producing adequate amount of urine output. His white cell cause of 9.2 with a hemoglobin 11.7 and a platelet count of 159. Sodium level is at 128 and the potassium levels at 4.5, BUN is at 45 with a creatinine of 1.5. Noted the patient was hospitalized with an acute kidney injury and the creatinine was as high as 1.9 and the renal function continues to improve. Serum cortisol level is at 22. Lactic acid level was as high as 2.8 and dropped down to 1.9. Cultures have been sent and the results are still pending for now. 03/27/2023, the patient is sitting up on a chair and is calm and comfortable. Noted overnight, the patient became progressively more hypotensive. He was started on norepinephrine and currently the norepinephrine is O- dose of 0.04 mcg/kg/m. He was also started on midodrine. He is producing adequate amount of urine output. Creatinine is improving and current labs show a BUN of 33 with a creatinine of 1.39. Sodium is at 128 as the patient was receiving D5 water regarding progressive hypoglycemia. The WBC was a 12.6 with a hemoglobin of 1 1.3 and a platelet count of 199. The most recent blood sugars at 199. The repeat Accu-Cheks have shown adequate blood sugar control and based on that, the patient was taken off the D10 and she was switched to D5 which is running at 50 mL an hour. He is also tolerating his diet. No altered mentation. No chest pain. No shortness of breath. He is on room air oxygen. Cultures are still negative. Opticell applied to his right lower extremity in the legs are wrapped for now. 03/28/2023, the patient is still requiring low-dose of norepinephrine for blood pressure control and norepinephrine is running at 0.03 mcg/kg/m. He has borderline hypotensive secondary to sepsis and cellulitis of the right lower extremity. The patient in the being covered with IV Zosyn. Cultures from the wound came back positive for enterococcus group D, staph aureus and gram- negative bacillus. The patient also had many normal skin noe. The patient's white cell count is down to 10.8 with a hemoglobin of 10.3 and a platelet count of 188. His BUN is at 31 with a creatinine of 1.4 which is improved and the sodium level is at 1:30. His blood sugars are maintained above 100 and the patient is currently off D5 infusion. The blood cultures have been negative thus far after 48 hours growth. Echocardiogram was completed yesterday and it showed a left ventricular ejection fraction of 40-45% which was mildly impaired and there was mild septal wall thickening and the patient was also identified to have severe aortic stenosis with a gradient of 78 mmHg peak and mean gradient of 43. Is also mild aortic regurgitation. 03/29/2023, the patient is off pressors and his been of present since 11 AM yesterday. He is hemodynamically stable and is maintaining his own blood pressure. Cellulitis is improving in his right lower extremity. The patient's has no specific complaints. The LAD oxygen. Creatinine is down to 1.2. Rest of the blood work on this patient shows a WBC count of 10 with a hemoglobin of 10.6 and a platelet count of 228. Sodium level is at the 131. The patient had no further episodes of hypoglycemia. Blood sugars under adequate control. He is on a slight scale insulin coverage. I separate note, he was found to have severe aortic stenosis on his echocardiogram. Cardiology is on the case for now. As mentioned, the cellulitis of the right lower oximetry is also improvin g. We're doing wound care. 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 No interventions were recommended this point in time. The patient has a chronic venous ulcer which is being treated On 03/30/2023, the patient is being seen for a follow-up. He was moved out of the intensive care unit yesterday. He is having diarrhea and stool was checked for C. diff. The patient has been switched to IV cefazolin. The patient has no new complaints otherwise for now. No respiratory difficulties. The white cell count of 18.8 with a hemoglobin of 10.9. BUN is at 27 with a creatinine of 1.3 and a sodium levels of 132. No shortness of breath. No chest pain. Vitals are stable and the patient is currently on room air oxygen. On today's evaluation of 03/31/2023, the patient remains on the medical floor. The patient was transferred out of the intensive care unit. He has severe aortic stenosis the also was hypotensive due to sepsis and cellulitis and he also had a skin wound/necrosis and his right lower extremity. The patient was seen by vascular surgery and the patient underwent debridement. Deep tissue culture was also taken. The patient's white cell count normalized and is up to 26 and the patient was placed back on IV Zosyn. Hemoglobin stable at 11.3. BUN is at 27 with a creatinine of 1 and a sodium level is at 132. No episodes of hypoglycemia this point in time. The patient is onthe coverage and oral hypoglycemic medications has been held. On a separate note, the patient was also having diarrhea. Stool for C. diff has been negative. On 04/01/2023, the patient is resting comfortably in bed. No new complaints. Surgical debridement of the right lower extremity wound has been done. The white cell count remains elevated at 26. He was having diarrhea and this is gradually improving. The patient's stool for C. diff has been negative and the patient remains on IV Zosyn. No other significant events overnight. Hemoglobin stable at 10.1. BUN is at 21 with a creatinine of 1.1 and his sodium level is at 134. The patient is seen today 04/02/2023 in follow-up on the regular medical floor. He is currently resting comfortably in bed. Awake and alert in no acute distress. He is maintaining O2 saturations in the 90s on room air. His right lower extremity wound is positive for gram-negative bacilli. He is currently on Zosyn and daptomycin. Remains on Lovenox. White count 24.4. Hemoglobin 10.9. Late Mason for 51. Sodium 136. Potassium 4.2. Bicarb 19. BUN 20. Creatinine 1.2. Glucose 116. He is continued on Ventolin, Symbicort, Singulair. Dressing to the right lower extremity remains dry and intact. The patient is seen today 04/03/2023 in follow-up on the regular medical floor. He is currently awake and alert in no acute distress. Sitting up in bed. Feeling better today compared to yesterday. Maintaining good O2 saturations in the 90s on room air. He remains afebrile. Hemodynamically stable. Right foot wound is positive for gram-negative bacilli. Sodium 136. Potassium 4.1. Bicarb 20. BUN 17. Creatinine 1.1. Glucose 122. He is continued on Symbicort and albuterol. Remains on Lovenox while Xarelto on hold. Continued on oral diuretics. Antibiotics in the form of daptomycin and Zosyn. ID services are on the case. Objective - Vital Signs Vital signs: Vital Signs Temp 98.3 F 04/03/23 06:40 Pulse 76 04/03/23 12:03 Resp 17 04/03/23 06:40 BP 137/71 04/03/23 06:40 Pulse Ox 95 04/03/23 06:40 FiO2 Intake & Output 04/02/23 04/03/23 04/03/23 18:59 06:59 18:59 Output Total 500 400 Balance -500 -400 Output: Urine 500 400 Other: Voiding Method Urinal Bedside Commode # Bowel Movements 1 - Exam GENERAL EXAM: Alert, 77-year-old male, on room air, comfortable in no apparent distress. HEAD: Normocephalic and atraumatic EYES: Normal reaction of pupils, equal size. NOSE: Clear with pink turbinates. THROAT: No erythema or exudates. NECK: No masses, no JVD. CHEST: No chest wall deformity. LUNGS: Equal air entry with bibasilar inspiratory crackles. No wheezes, rhonchi, focal dullness. CVS: S1 and S2 normal with systolic ejection murmur grade 3/6 audible murmur, regular rhythm. No extra heart sounds ABDOMEN: Obese abdomen, No hepatosplenomegaly, active bowel sounds, no guarding or rigidity. SPINE: No scoliosis or deformity SKIN: Bilateral lower extremity erythema with purulent drainage. CENTRAL NERVOUS SYSTEM: No focal deficits, tone is normal in all 4 extremities. EXTREMITIES: Right lower extremity is grossly enlarged and erythemic. Left lower extremity is also edematous, with opticell silver and the erythema is improved considerably and wrapped in Kerlix. Peripheral pulses are intact. - Labs CBC & Chem 7: 04/02/23 05:20 04/03/23 05:07 Labs: Abnormal Lab Results - Last 24 Hours (Table) 04/02/23 04/02/23 04/03/23 Range/Units 16:43 20:40 01:51 Carbon Dioxide (21.6-31.8) mmol/L Glucose (70-110) mg/dL POC Glucose (mg/dL) 223 H 227 H 136 H (70-110) mg/dL Calcium (8.7-10.3) mg/dL 04/03/23 04/03/23 04/03/23 Range/Units 05:07 05:26 11:16 Carbon Dioxide 20.8 L (21.6-31.8) mmol/L Glucose 122 H (70-110) mg/dL POC Glucose (mg/dL) 142 H 185 H (70-110) mg/dL Calcium 7.8 L (8.7-10.3) mg/dL Microbiology - Last 24 Hours (Table) 03/31/23 15:00 Gram Stain - Preliminary Foot - Right Tissue Culture - Preliminary Gram Neg Bacilli 03/31/23 12:24 Anaerobic Culture - Preliminary Foot - Right 03/31/23 12:24 Gram Stain - Final Foot - Right Wound Culture - Final Gram Neg Aiden Non-Pediatrician Managing Partner 03/30/23 09:56 Blood Culture - Preliminary Blood Assessment and Plan Assessment: Diabetes mellitus with episodes Hypoglycemia refractory to glucose replacement, improved and the patient is currently off oral hypoglycemic medication and the patient is also off the D5 infusion. He'll be offered insulin sliding scale coverage only at this point in time. No further episodes of hypoglycemia. Current glucose 122. Bilateral lower extremity cellulitis, worse in the right lower extremity and the patient has a superficial wound that has been debrided and there is a wound covering the anterior aspect of the right lower extremity was erythematous and draining minimally, nonpurulent material. Cultures are polymicrobial including enterococcus group D and gram-negative based on that recently rise in the white cell count, the patient was switched to IV Zosyn and daptomycin. Acute leukocytosis Diarrhea , stool for C. 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 Severe aortic stenosis with a peak gradient of 78 and mean gradient of 43 mmHg History of right lower extremity DVT and pulmonary embolism anticoagulated on Xarelto, repeat ultrasound shows a chronic clot in the right lower extremity involving the common femoral vein extending to mid femoral vein. History of factor V Leyden mutation Acute kidney injury, improved Mild hyponatremia, improving Diabetes mellitus type 2, [id number], normally managed with metformin on an outpatient basis Essential hypertension Hyperlipidemia Severe persistent asthma, stable Plan: The patient was seen and evaluated Labs and medications reviewed Remains on daptomycin and Zosyn Resume Xarelto after no further procedures per vascular surgery We will continue to follow I have personally seen and examined the patient, performed the documentation and the assessment and plan as written. Number of minutes spent on the visit: 10.
[2023-04-03] MEDS: FUROSEMIDE 20 MG TAB PO SCH (12:56)
--- NOTE | 2023-04-03 14:06 | P.PN ---
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 Patient is admitted with worsening right leg swelling for the last 2 weeks as he explains to me with mild pain or discomfort in the area.. Also patient presents because of hypoglycemia. Patient was taken several of diabetes medications including metformin, Actos and glipizide 20 mg daily which patient was taken every day however he says that he had low appetite over the last 10 days and he was not eating well. Patient currently complaining of from 3-4/10 pain in his right leg. Patient can walk at home using a cane as he explains to me. Patient is fully awake and oriented and denies any other complaints. No chest pain or dyspnea. No new GI or urinary complaints. No headache dizziness we akness or numbness Patient says that he was taking testosterone at home to prevent him from falling down and other male characters 04/15/2023 Patient clinically looks the same, direct but answers questions appropriately. He denies any specific pain or discomfort. He was admitted with right leg cellulitis and currently is with Zeus wrap and he had loose bowel movement 1: No abdominal pain. His blood pressure on the low side requiring midodrine 10 mg and to make her on Levophed. Thank you again at 0.06 g per KG per minute. Also he is getting normal saline at 50 mL/h. Sugars start picking up today more than 200 therefore was started and Actos. This followed now is D5 normal saline at 50 mL/h. He is on Xarelto Uriostegui history of DVT/PE. 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 Patient currently on Zosyn without edema the case. History of heart were small dose of pressors of Levophed improvement from 0.06 down to 0.03. Also he is on midodrine 10 mg 3 times a day. He is awake alert and comfortable, no new complaint compared to yesterday for the patient's site. Remains on blood thinners Xarelto for his history of right lower extremity DVT and PE. 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 Insulin controlled on insulin sliding scale. Glipizide, metformin and Actos on hold. Also Cardizem is on hold. 03/29: Patient seen and evaluated bedside. Patient is alert and oriented 3. Right proximity cellulitis. Patient was treated with IV antibiotics on Zosyn. Noted to have episode of fever infectious disease following 03/30: Patient seen and evaluated bedside. Patient noted to have episode of fever and elevated W BC count overnight. We'll get CT right lower extremity to rule out abscess. Patient complained of diarrhea however stool was negative for C. diff checked while in ICU 03/31: Patient seen and evaluated bedside. Patient does complain of right lower extremity pain. Right foot exam does raise suspicion for abscess. CT right lo wer extremity completed antibiotic escalated to Zosyn and doxycycline. General surgery consulted. Xarelto discontinued in anticipation of incision and drainage 04/01 : Patient seen and evaluated at bedside, patient was seen by vascular surgery yesterday and had incision and drainage of left foot,. General surgery consult was canceled. Antibiotics broadened on Zosyn and Doxy to be continued will follow up on recommendations from infectious disease. says his pain is better controlled after procedure yesterday. Xarelto continues to remain on hold however patient started on therapeutic dose of Lovenox in case he needs more intervention 04/02. Patient seen and examined. Still complaining of pain in right lower extremity, bandage in place, dressing was changed by vascular this morning 04/03. Patient seen and examined. No acute issues overnight. Still has pain in right lower extremity. REVIEW OF SYSTEMS: CONSTITUTIONAL: No fever, no malaise,. CARDIOVASCULAR: No chest pain, no palpitations, no syncope. PULMONARY: No shortness of breath, no cough, GASTROINTESTINAL: No diarrhea, no abdominal pain. NEUROLOGICAL: No headaches, no weakness, PHYSICAL EXAMINATION: GENERAL: The patient is alert and oriented x3, not in any acute distress. Well developed, well nourished. HEENT: Pupils are round and equally reacting to light. EOMI. No scleral icterus. No conjunctival pallor. Normocephalic, atraumatic. No pharyngeal erythema. No thyromegaly. CARDIOVASCULAR: S1 and S2 present. No murmurs, rubs, or gallops. PULMONARY: Chest is clear to auscultation, no wheezing or crackles. ABDOMEN: Soft, nontender, nondistended, normoactive bowel sounds. No palpable organomegaly. MUSCULOSKELETAL: Right lower extremity bandage seen, lymphedema of lower extremi ties bilaterally NEUROLOGICAL: Gross neurological examination did not reveal any focal deficits. SKIN: No rashes. Assessment and plan Acute right leg cellulitis, with abscess Septic shock Resolved Cardiomyopathy with ejection fraction 40-45% Severe aortic stenosis Diabetes mellitus, with hypoglycemia, present on admission decreased appetite secondary to above Hypertension Hyperlipidemia History of osteoarthritis Hypothyroidism History of DVT/PE on Xarelto prior to this admission Plan: In regard to RLE cellulitis > CT right lower extremity negative for necrotizing fasciitis does show diffuse edema, vascular surgery did I&D on 03/31 . Continue wound care. Discussed with patient in detail regarding his poor wound healing, discussed with him palliative care option, patient wants to think about it. Currently on IV Zosyn and daptomycin, ID following In regards to sepsis, patient was in intensive care unit resuscitated and transf erred to general medical floor. 03/30 noted to have fever repeat blood cultures no growth In regards to history of aortic stenosis patient seen by cardiology, episode of bradycardia continue to monitor In regards to history of pulmonary embolism, Discontinued Xarelto 03/31 >> in anticipation of surgical intervention, currently on Lovenox 8/6 therapeutic dose Continue with blood pressure support with Midodrine In regards to diabetes mellitus continue patient on Accu-Cheks before meals and at bedtime continue sliding insulin DVT prophylaxis: Xarelto placed on hold, on Lovenox therapeutic dose GI prophylaxis: Pepcid Labs and medication were reviewed.. Continue same treatment. Continue with symptomatic treatment. Resume home medication. Monitor labs and vitals. DVT and GI prophylaxis. Further recommendations as per clinical course of the patient Dictation was produced using [employer] dictation software. please excuse any grammatical, word or spelling errors. Objective - Vital Signs Vital signs: Vital Signs Temp 98.3 F 04/03/23 06:40 Pulse 80 04/03/23 09:19 Resp 17 04/03/23 06:40 BP 137/71 04/03/23 06:40 Pulse Ox 95 04/03/23 06:40 FiO2 Intake & Output 04/02/23 04/03/23 04/03/23 18:59 06:59 18:59 Output Total 500 400 Balance -500 -400 Output: Urine 500 400 Other: Voiding Method Urinal Bedside Commode # Bowel Movements 1 - Labs CBC & Chem 7: 04/02/23 05:20 04/03/23 05:07 Labs: Abnormal Lab Results - Last 24 Hours (Table) 04/02/23 04/02/23 04/02/23 Range/Units 12:11 16:43 20:40 POC Glucose (mg/dL) 143 H 223 H 227 H (70-110) mg/dL 04/03/23 04/03/23 Range/Units 01:51 05:26 POC Glucose (mg/dL) 136 H 142 H (70-110) mg/dL Microbiology - Last 24 Hours (Table) 03/31/23 15:00 Gram Stain - Preliminary Foot - Right Tissue Culture - Preliminary Gram Neg Bacilli 03/31/23 12:24 Anaerobic Culture - Preliminary Foot - Right 03/31/23 12:24 Gram Stain - Final Foot - Right Wound Culture - Final Gram Neg Aiden Non-Salesperson Wigs 03/30/23 09:56 Blood Culture - Preliminary Blood
[2023-04-03 16:12] LABS: Glucose,Whole Blood 187 mg/dL (70-110)
[2023-04-03] MEDS: NYSTATIN 100,000 UNIT/GM POWD 15 GM TOPICAL SCH ×2 (17:01→21:47)
--- NOTE | 2023-04-03 17:15 | P.PN ---
Subjective Progress Note Date: 04/02/23 Principal diagnosis: Right lower extremity wound and cellulitis Patient is a 77-year-old male with a past medical history negative for hypertension hyperlipidemia diabetes mellitus PE patient also have a lower extremity venous stasis ulcer and history of recurrent cellulitis patient presenting to the hospital concerning for right leg infection patient noticed to have increasing redness to discomfort and drainage to the right lower extremity, admitted to the ICU because of hypoglycemia On today's evaluation that is 04/02/2023, the patient continues to be afebrile, the patient is breathing comfortably on room air , the patient denies any chest pain shortness of breath or cough, the patient denies abdominal pain no worsening diarrhea, pain to the right foot has decreased in intensity Patient did have white count is slightly down to 24.2, the patient creatinine is 1.2, repeat blood cultures currently pending local cultures obtained 03/31/2023 currently pending stool for C. diff negative on 03/28/2023 Objective - Vital Signs Vital signs: Vital Signs Temp 97.7 F 04/02/23 07:36 Pulse 106 H 04/02/23 12:09 Resp 18 04/02/23 07:36 BP 117/73 04/02/23 12:09 Pulse Ox 94 L 04/02/23 07:36 FiO2 Intake & Output 04/01/23 04/02/23 04/02/23 18:59 06:59 18:59 Intake Total 800 Output Total 620 Balance 180 Intake: Oral 800 Output: Urine 620 Other: Voiding Method Urinal Urinal Urinal # Voids 1 # Bowel Movements 1 - Exam GENERAL DESCRIPTION: An elderly male lying in bed in no distress RESPIRATORY SYSTEM: Unlabored breathing , decreased breath sounds at bases HEART: S1 S2 regular rate and rhythm , ABDOMEN: Soft , no tenderness EXTREMITIES: Right foot dorsum wound is currently dressed with minimal blood stained drainage on the dressing - Labs CBC & Chem 7: 04/02/23 05:20 04/03/23 05:07 Labs: Abnormal Lab Results - Last 24 Hours (Table) 04/01/23 04/01/23 04/02/23 Range/Units 16:16 20:24 01:58 WBC (4.50-10.00) X 10*3/uL RBC (4.40-5.60) X 10*6/uL Hgb (13.0-17.0) d/dL Hct (39.6-50.0) % MCH (27.0-32.0) pg MCHC (32.0-37.0) d/dL RDW (11.5-14.5) % Plt Count (140-440) X 10*3/uL Carbon Dioxide (21.6-31.8) mmol/L Anion Gap (4.00-12.00) mmol/L Glucose (70-110) mg/dL POC Glucose (mg/dL) 165 H 164 H 156 H (70-110) mg/dL Calcium (8.7-10.3) mg/dL C-Reactive Protein (0.00-0.80) mg/dL 04/02/23 04/02/23 04/02/23 Range/Units 05:20 05:20 05:57 WBC 24.42 H (4.50-10.00) X 10*3/uL RBC 4.15 L (4.40-5.60) X 10*6/uL Hgb 10.9 L (13.0-17.0) d/dL Hct 34.2 L (39.6-50.0) % MCH 26.3 L (27.0-32.0) pg MCHC 31.9 L (32.0-37.0) d/dL RDW 17.0 H (11.5-14.5) % Plt Count 451 H (140-440) X 10*3/uL Carbon Dioxide 19.0 L (21.6-31.8) mmol/L Anion Gap 15.00 H (4.00-12.00) mmol/L Glucose 116 H (70-110) mg/dL POC Glucose (mg/dL) 122 H (70-110) mg/dL Calcium 8.2 L (8.7-10.3) mg/dL C-Reactive Protein 17.90 H (0.00-0.80) mg/dL 04/02/23 Range/Units 12:11 WBC (4.50-10.00) X 10*3/uL RBC (4.40-5.60) X 10*6/uL Hgb (13.0-17.0) d/dL Hct (39.6-50.0) % MCH (27.0-32.0) pg MCHC (32.0-37.0) d/dL RDW (11.5-14.5) % Plt Count (140-440) X 10*3/uL Carbon Dioxide (21.6-31.8) mmol/L Anion Gap (4.00-12.00) mmol/L Glucose (70-110) mg/dL POC Glucose (mg/dL) 143 H (70-110) mg/dL Calcium (8.7-10.3) mg/dL C-Reactive Protein (0.00-0.80) mg/dL Microbiology - Last 24 Hours (Table) 03/31/23 12:24 Gram Stain - Preliminary Foot - Right Wound Culture - Preliminary Gram Neg Bacilli 03/30/23 09:56 Blood Culture - Preliminary Blood Assessment and Plan (1) Cellulitis of right leg Current Visit: Yes Status: Acute Code(s): L03.115 - CELLULITIS OF RIGHT LOWER LIMB SNOMED Code(s): 271245715 (2) Chronic cutaneous venous stasis ulcer Current Visit: No Status: Acute Code(s): I83.009 - VARICOSE VEINS OF UNSP LOWER EXTREMITY W ULCER OF UNSP SITE; L97.909 - NON-PRS CHRONIC ULC UNSP PRT OF UNSP LOW LEG W UNSP SEVERITY SNOMED Code(s): 19341181 Plan: 1patient was in the hospital with increasing pain swelling redness of the right lower extremity in this patient who do have a history of venous stasis ulcer to right lower extremity and concerning for cellulitis likely from gram-positive skin noe 2local wound care with Aquacel silver dressing and mild compression dressing. 3-Patient noticed to have swelling and skin necrosis on the dorsum aspect of the right foot, has been evaluated Vascular surgery status post debridement and deep cultures which are currently pending 4-continue the patient on Zosyn and daptomycin while waiting for the culture finalized , monitor clinical course closely Dictation was produced using [employer] dictation software. please excuse any grammatical, word or spelling errors. Time with Patient: Less than 30
--- NOTE | 2023-04-03 17:17 | P.PN ---
Subjective Progress Note Date: 04/03/23 Principal diagnosis: Right lower extremity wound and cellulitis Patient is a 77-year-old male with a past medical history negative for hypertension hyperlipidemia diabetes mellitus PE patient also have a lower extremity venous stasis ulcer and history of recurrent cellulitis patient presenting to the hospital concerning for right leg infection patient noticed to have increasing redness to discomfort and drainage to the right lower extremity, admitted to the ICU because of hypoglycemia On today's evaluation that is 04/03/2023, the patient remains to be afebrile, t he patient is breathing comfortably on room air , the patient denies any chest pain shortness of breath or cough, the patient denies abdominal pain no worsening diarrhea, pain to the right foot has decreased in intensity, no new symptoms Patient did have white count is slightly down to 24.2 as of yesterday no CBC was done today, the patient creatinine is 1.1, repeat blood cultures currently pendi ng local cultures obtained 03/31/2023 currently growing gram-negative bacilli Objective - Vital Signs Vital signs: Vital Signs Temp 98.3 F 04/03/23 06:40 Pulse 89 04/03/23 12:56 Resp 17 04/03/23 06:40 BP 129/75 04/03/23 12:56 Pulse Ox 95 04/03/23 06:40 FiO2 Intake & Output 04/02/23 04/03/23 04/03/23 18:59 06:59 18:59 Output Total 500 400 Balance -500 -400 Output: Urine 500 400 Other: Voiding Method Urinal Bedside Commode # Bowel Movements 1 - Exam GENERAL DESCRIPTION: An elderly male lying in bed in no distress RESPIRATORY SYSTEM: Unlabored breathing , decreased breath sounds at bases HEART: S1 S2 regular rate and rhythm , ABDOMEN: Soft , no tenderness EXTREMITIES: Right foot dorsum wound is currently dressed with minimal blood stained drainage on the dressing - Labs CBC & Chem 7: 04/02/23 05:20 04/03/23 05:07 Labs: Abnormal Lab Results - Last 24 Hours (Table) 04/02/23 04/02/23 04/03/23 Range/Units 16:43 20:40 01:51 Carbon Dioxide (21.6-31.8) mmol/L Glucose (70-110) mg/dL POC Glucose (mg/dL) 223 H 227 H 136 H (70-110) mg/dL Calcium (8.7-10.3) mg/dL 04/03/23 04/03/23 04/03/23 Range/Units 05:07 05:26 11:16 Carbon Dioxide 20.8 L (21.6-31.8) mmol/L Glucose 122 H (70-110) mg/dL POC Glucose (mg/dL) 142 H 185 H (70-110) mg/dL Calcium 7.8 L (8.7-10.3) mg/dL Microbiology - Last 24 Hours (Table) 03/31/23 15:00 Gram Stain - Preliminary Foot - Right Tissue Culture - Preliminary Gram Neg Bacilli 03/31/23 12:24 Anaerobic Culture - Preliminary Foot - Right 03/31/23 12:24 Gram Stain - Final Foot - Right Wound Culture - Final Gram Neg Aiden Non-Retail Loss Prevention Officer 03/30/23 09:56 Blood Culture - Preliminary Blood Assessment and Plan (1) Cellulitis of right leg Current Visit: Yes Status: Acute Code(s): L03.115 - CELLULITIS OF RIGHT LOWER LIMB SNOMED Code(s): 604662841 (2) Chronic cutaneous venous stasis ulcer Current Visit: No Status: Acute Code(s): I83.009 - VARICOSE VEINS OF UNSP LOWER EXTREMITY W ULCER OF UNSP SITE; L97.909 - NON-PRS CHRONIC ULC UNSP PRT OF UNSP LOW LEG W UNSP SEVERITY SNOMED Code(s): 16095410 Plan: 1patient was in the hospital with increasing pain swelling redness of the right lower extremity in this patient who do have a history of venous stasis ulcer to right lower extremity and concerning for cellulitis likely from gram-positive skin noe 2local wound care with Aquacel silver dressing and mild compression dressing. 3-Patient noticed to have swelling and skin necrosis on the dorsum aspect of the right foot, has been evaluated Vascular surgery status post debridement and deep cultures which are currently growing gram-negative bacilli 4-With local cultures predominantly growing gram-negative bacilli. Continue with the Zosyn however discontinue daptomycin Dictation was produced using [employer] dictation software. please excuse any grammatical, word or spelling errors. Time with Patient: Less than 30
[2023-04-03] MEDS: MONTELUKAST 10 MG TAB PO SCH (19:54)
[2023-04-03 20:08] LABS: Glucose,Whole Blood 186 mg/dL (70-110)
[2023-04-04 01:50] LABS: Glucose,Whole Blood 165 mg/dL (70-110)
[2023-04-04] MEDS: PIPERACILLIN-TAZOBACTAM 3.375 GM in SODIUM CHLORIDE 0.9% 100 ML IVPB SCH ×3 (02:40→17:26)
[2023-04-04] MEDS: INSULIN ASPART (NovoLOG) 100 UNIT/ML VIAL SQ SCH ×5 (02:42→21:16)
[2023-04-04] MEDS: HYDROcodone/APAP 10-325MG 1 EACH TAB PO PRN ×4 (05:42→23:19)
[2023-04-04] MEDS: LEVOTHYROXINE 100 MCG TAB PO SCH (05:42)
[2023-04-04 05:54] LABS: Glucose,Whole Blood 131 mg/dL (70-110)
[2023-04-04] MEDS: ALBUTEROL NEBULIZED 2.5 MG/3 ML INHALATION SCH ×4 (08:17→20:57)
[2023-04-04] MEDS: SYMBICORT 80-4.5 MCG INHALER INHALATION SCH ×2 (08:17→20:57)
[2023-04-04 09:31] LABS: Basophils # (A) 0.05 X 10*3/uL (0.00-0.10); Basophils % (A) 0.3 %; Eosinophils # (A) 0.19 X 10*3/uL (0.04-0.35); Eosinophils % (A) 1.1 %; HCT 30.6 % (39.6-50.0); HGB 9.7 d/dL (13.0-17.0); Lymphocytes # (A) 0.77 X 10*3/uL (0.90-5.00); Lymphocytes % (A) 4.3 %; MCH 26.3 pg (27.0-32.0); MCHC 31.7 d/dL (32.0-37.0); MCV 82.9 FL (80.0-97.0); Monocytes # (A) 0.72 X 10*3/uL (0.20-1.00); NRBC Per 100 WBC 0 X 10*3/uL (0.00-0.01); Neutrophils # (A) 15.95 X 10*3/uL (1.80-7.70); Neutrophils % (A) 88.5 %; Platelet Count 409 X 10*3/uL (140-440); RBC 3.69 X 10*6/uL (4.40-5.60); RDW 17.2 % (11.5-14.5); WBC 18.01 X 10*3/uL (4.50-10.00)
[2023-04-04] MEDS: FAMOTIDINE 20 MG/2 ML VIAL IV SCH ×2 (09:49→21:15)
[2023-04-04] MEDS: MIDODRINE 5 MG TAB PO SCH ×3 (09:49→17:21)
[2023-04-04] MEDS: ENOXAPARIN 100 MG/ML SYRINGE SQ SCH (09:49)
[2023-04-04] MEDS: FUROSEMIDE 20 MG TAB PO SCH (09:49)
[2023-04-04] MEDS: CHOLESTYRAMINE (WITH SUGAR) 4 GM PACKET PO SCH ×2 (09:50→17:25)
[2023-04-04] MEDS: NYSTATIN 100,000 UNIT/GM POWD 15 GM TOPICAL SCH ×3 (09:50→23:20)
--- NOTE | 2023-04-04 10:54 | P.PN ---
Subjective Progress Note Date: 04/04/23 I am seeing this patient in new consultation today 03/26/2023 for persistent and refractory hypoglycemia. Patient is a 77-year-old male with past medical history significant for diabetes mellitus type 2, hypothyroidism, factor V Leyden mutation, right lower extremity DVT, pulmonary embolism, recurrent lower extremity cellulitis, hypertension, hyperlipidemia, severe persistent asthma, GERD. His primary care provider is Dr. Tatyana Mora. Patient came to the emergency room yesterday afternoon complaining of increased redness and swelling of bilateral legs, but his right lower extremity is worse. He says that he has noticed increased redness and drainage over the last 2 weeks. This has been accompanied with fevers and generalized malaise. The patient was admitted to the hospital on IV antibiotics in the form of Zosyn. While on the general medical floor, the patient was found to be profoundly hypoglycemic. This was refractory to multiple administrations of D50W. In fact, it looks like he's had over 8 amps of D50W over the last 12 hours. He has been started on a D10W infusion at 100 ML's per hour. Patient is currently sitting up in bed, on room air, in no acute distress. He is asymptomatic even when hypoglycemic. He has not received any long-acting insulin, metformin, or sulfonylureas while in the hospital. He normally takes metformin and Glipizide at home, but has not had a dose this admission. He has NovoLog sliding scale insulin ordered, but has not received any because of his hypoglycemia. Denies any liver disease, active cancer, alcoholism. Most recent CBC is unremarkable. BMP shows sodium 128, potassium 4.5, chloride 99, serum bicarb 22, BUN 41, creatinine 1.54, glucose 35. LFTs on arrival were nonelevated. Patient is hemodynamically stable, but warrants close monitoring and intensive care unit. 03/26/2023, the patient is being seen for a follow-up. He is awake and is communicating. He has chronic lymphedema in the right lower extremity with wound and cellulitis. The wound has been debrided and the surface is quite ulcerated and erythematous with some serous material draining from the wound surface. There is also extensive edema in the right lower extremity along with erythema. He remains on anticoagulation with that also. He has been diabetic and the patient was taking oral hypoglycemic medication. The patient developed severe hypoglycemia and for that reason he was hospitalized and brought into the intensive care unit and currently is on D10 which is running at 100 mL an hour. Most recent blood sugar is at 115. He is hemodynamically stable. He is on IV Zosyn. He is afebrile. Most recent BP is 93/66 and the patient has not req uired any pressors. Producing adequate amount of urine output. His white cell cause of 9.2 with a hemoglobin 11.7 and a platelet count of 159. Sodium level is at 128 and the potassium levels at 4.5, BUN is at 45 with a creatinine of 1.5. Noted the patient was hospitalized with an acute kidney injury and the creatinine was as high as 1.9 and the renal function continues to improve. Serum cortisol level is at 22. Lactic acid level was as high as 2.8 and dropped down to 1.9. Cultures have been sent and the results are still pending for now. 03/27/2023, the patient is sitting up on a chair and is calm and comfortable. Noted overnight, the patient became progressively more hypotensive. He was started on norepinephrine and currently the norepinephrine is O- dose of 0.04 mcg/kg/m. He was also started on midodrine. He is producing adequate amount of urine output. Creatinine is improving and current labs show a BUN of 33 with a creatinine of 1.39. Sodium is at 128 as the patient was receiving D5 water regarding progressive hypoglycemia. The WBC was a 12.6 with a hemoglobin of 1 1.3 and a platelet count of 199. The most recent blood sugars at 199. The repeat Accu-Cheks have shown adequate blood sugar control and based on that, the patient was taken off the D10 and she was switched to D5 which is running at 50 mL an hour. He is also tolerating his diet. No altered mentation. No chest pain. No shortness of breath. He is on room air oxygen. Cultures are still negative. Opticell applied to his right lower extremity in the legs are wrapped for now. 03/28/2023, the patient is still requiring low-dose of norepinephrine for blood pressure control and norepinephrine is running at 0.03 mcg/kg/m. He has borderline hypotensive secondary to sepsis and cellulitis of the right lower extremity. The patient in the being covered with IV Zosyn. Cultures from the wound came back positive for enterococcus group D, staph aureus and gram- negative bacillus. The patient also had many normal skin noe. The patient's white cell count is down to 10.8 with a hemoglobin of 10.3 and a platelet count of 188. His BUN is at 31 with a creatinine of 1.4 which is improved and the sodium level is at 1:30. His blood sugars are maintained above 100 and the patient is currently off D5 infusion. The blood cultures have been negative thus far after 48 hours growth. Echocardiogram was completed yesterday and it showed a left ventricular ejection fraction of 40-45% which was mildly impaired and there was mild septal wall thickening and the patient was also identified to have severe aortic stenosis with a gradient of 78 mmHg peak and mean gradient of 43. Is also mild aortic regurgitation. 03/29/2023, the patient is off pressors and his been of present since 11 AM yesterday. He is hemodynamically stable and is maintaining his own blood pressure. Cellulitis is improving in his right lower extremity. The patient's has no specific complaints. The LAD oxygen. Creatinine is down to 1.2. Rest of the blood work on this patient shows a WBC count of 10 with a hemoglobin of 10.6 and a platelet count of 228. Sodium level is at the 131. The patient had no further episodes of hypoglycemia. Blood sugars under adequate control. He is on a slight scale insulin coverage. I separate note, he was found to have severe aortic stenosis on his echocardiogram. Cardiology is on the case for now. As mentioned, the cellulitis of the right lower oximetry is also improvin g. We're doing wound care. 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 No interventions were recommended this point in time. The patient has a chronic venous ulcer which is being treated On 03/30/2023, the patient is being seen for a follow-up. He was moved out of the intensive care unit yesterday. He is having diarrhea and stool was checked for C. diff. The patient has been switched to IV cefazolin. The patient has no new complaints otherwise for now. No respiratory difficulties. The white cell count of 18.8 with a hemoglobin of 10.9. BUN is at 27 with a creatinine of 1.3 and a sodium levels of 132. No shortness of breath. No chest pain. Vitals are stable and the patient is currently on room air oxygen. On today's evaluation of 03/31/2023, the patient remains on the medical floor. The patient was transferred out of the intensive care unit. He has severe aortic stenosis the also was hypotensive due to sepsis and cellulitis and he also had a skin wound/necrosis and his right lower extremity. The patient was seen by vascular surgery and the patient underwent debridement. Deep tissue culture was also taken. The patient's white cell count normalized and is up to 26 and the patient was placed back on IV Zosyn. Hemoglobin stable at 11.3. BUN is at 27 with a creatinine of 1 and a sodium level is at 132. No episodes of hypoglycemia this point in time. The patient is onthe coverage and oral hypoglycemic medications has been held. On a separate note, the patient was also having diarrhea. Stool for C. diff has been negative. On 04/01/2023, the patient is resting comfortably in bed. No new complaints. Surgical debridement of the right lower extremity wound has been done. The white cell count remains elevated at 26. He was having diarrhea and this is gradually improving. The patient's stool for C. diff has been negative and the patient remains on IV Zosyn. No other significant events overnight. Hemoglobin stable at 10.1. BUN is at 21 with a creatinine of 1.1 and his sodium level is at 134. The patient is seen today 04/02/2023 in follow-up on the regular medical floor. He is currently resting comfortably in bed. Awake and alert in no acute distress. He is maintaining O2 saturations in the 90s on room air. His right lower extremity wound is positive for gram-negative bacilli. He is currently on Zosyn and daptomycin. Remains on Lovenox. White count 24.4. Hemoglobin 10.9. Late Mason for 51. Sodium 136. Potassium 4.2. Bicarb 19. BUN 20. Creatinine 1.2. Glucose 116. He is continued on Ventolin, Symbicort, Singulair. Dressing to the right lower extremity remains dry and intact. The patient is seen today 04/03/2023 in follow-up on the regular medical floor. He is currently awake and alert in no acute distress. Sitting up in bed. Feeling better today compared to yesterday. Maintaining good O2 saturations in the 90s on room air. He remains afebrile. Hemodynamically stable. Right foot wound is positive for gram-negative bacilli. Sodium 136. Potassium 4.1. Bicarb 20. BUN 17. Creatinine 1.1. Glucose 122. He is continued on Symbicort and albuterol. Remains on Lovenox while Xarelto on hold. Continued on oral diuretics. Antibiotics in the form of daptomycin and Zosyn. ID services are on the case. The patient is seen today 04/04/2023 in follow-up on the regular medical floor. He is currently sitting up in a chair. Awake and alert in no acute distress. Maintaining O2 saturations in the 90s on room air. White count 18.0. Hemoglobin 9.7. Platelets 409. Right foot wound cultures are positive for gram-negative bacilli, presumptive MRSA. He is currently on Zosyn. Daptomycin was discontinued per ID services. Continue on Symbicort, albuterol, Singulair. Lovenox while off Xarelto. Objective - Vital Signs Vital signs: Vital Signs Temp 98.8 F 04/04/23 07:00 Pulse 84 04/04/23 08:29 Resp 18 04/04/23 07:00 BP 118/69 04/04/23 07:00 Pulse Ox 94 L 04/04/23 07:00 FiO2 Intake & Output 04/03/23 04/04/23 04/04/23 18:59 06:59 18:59 Output Total 800 500 Balance -800 -500 Output: Urine 800 500 Other: Voiding Method Urinal - Exam GENERAL EXAM: Alert, pleasant, oriented 77-year-old male, on room air, and up in a chair, comfortable in no apparent distress. HEAD: Normocephalic and atraumatic EYES: Normal reaction of pupils, equal size. NOSE: Clear with pink turbinates. THROAT: No erythema or exudates. NECK: No masses, no JVD. CHEST: No chest wall deformity. LUNGS: Equal air entry with bibasilar inspiratory crackles. No wheezes, rhonchi, focal dullness. CVS: S1 and S2 normal with systolic ejection murmur grade 3/6 audible murmur, regular rhythm. No extra heart sounds ABDOMEN: Obese abdomen, No hepatosplenomegaly, active bowel sounds, no guarding or rigidity. SPINE: No scoliosis or deformity SKIN: Bilateral lower extremity erythema with purulent drainage. CENTRAL NERVOUS SYSTEM: No focal deficits, tone is normal in all 4 extremities. EXTREMITIES: Right lower extremity is grossly enlarged and erythemic. Left lower extremity is also edematous, with opticell silver and the erythema is improved considerably and wrapped in Kerlix. Peripheral pulses are intact. - Labs CBC & Chem 7: 04/04/23 05:06 04/03/23 05:07 Labs: Abnormal Lab Results - Last 24 Hours (Table) 04/03/23 04/03/23 04/03/23 Range/Units 05:07 11:16 16:10 WBC (4.50-10.00) X 10*3/uL RBC (4.40-5.60) X 10*6/uL Hgb (13.0-17.0) d/dL Hct (39.6-50.0) % MCH (27.0-32.0) pg MCHC (32.0-37.0) d/dL RDW (11.5-14.5) % Neutrophils # (1.80-7.70) X 10*3/uL Lymphocytes # (0.90-5.00) X 10*3/uL Carbon Dioxide 20.8 L (21.6-31.8) mmol/L Glucose 122 H (70-110) mg/dL POC Glucose (mg/dL) 185 H 187 H (70-110) mg/dL Calcium 7.8 L (8.7-10.3) mg/dL 04/03/23 04/04/23 04/04/23 Range/Units 20:07 01:48 05:06 WBC 18.01 H (4.50-10.00) X 10*3/uL RBC 3.69 L (4.40-5.60) X 10*6/uL Hgb 9.7 L (13.0-17.0) d/dL Hct 30.6 L (39.6-50.0) % MCH 26.3 L (27.0-32.0) pg MCHC 31.7 L (32.0-37.0) d/dL RDW 17.2 H (11.5-14.5) % Neutrophils # 15.95 H (1.80-7.70) X 10*3/uL Lymphocytes # 0.77 L (0.90-5.00) X 10*3/uL Carbon Dioxide (21.6-31.8) mmol/L Glucose (70-110) mg/dL POC Glucose (mg/dL) 186 H 165 H (70-110) mg/dL Calcium (8.7-10.3) mg/dL 04/04/23 Range/Units 05:46 WBC (4.50-10.00) X 10*3/uL RBC (4.40-5.60) X 10*6/uL Hgb (13.0-17.0) d/dL Hct (39.6-50.0) % MCH (27.0-32.0) pg MCHC (32.0-37.0) d/dL RDW (11.5-14.5) % Neutrophils # (1.80-7.70) X 10*3/uL Lymphocytes # (0.90-5.00) X 10*3/uL Carbon Dioxide (21.6-31.8) mmol/L Glucose (70-110) mg/dL POC Glucose (mg/dL) 131 H (70-110) mg/dL Calcium (8.7-10.3) mg/dL Microbiology - Last 24 Hours (Table) 03/31/23 15:00 Gram Stain - Preliminary Foot - Right Tissue Culture - Preliminary Gram Neg Bacilli Presumptive MRSA Coagulase Negative Staph Assessment and Plan Assessment: Diabetes mellitus with episodes Hypoglycemia refractory to glucose replacement, improved and the patient is currently off oral hypoglycemic medication and the patient is also off the D5 infusion. He'll be offered insulin sliding scale coverage only at this point in time. No further episodes of hypoglycemia. Current glucose 131. Bilateral lower extremity cellulitis, worse in the right lower extremity and the patient has a superficial wound that has been debrided and there is a wound covering the anterior aspect of the right lower extremity was erythematous and draining minimally, nonpurulent material. Cultures are polymicrobial including gram-negative bacilli, presumptive MRSA, coagulase negative staph, currently on Zosyn . Acute leukocytosis Diarrhea , stool for C. 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 Severe aortic stenosis with a peak gradient of 78 and mean gradient of 43 mmHg History of right lower extremity DVT and pulmonary embolism anticoagulated on Xarelto, repeat ultrasound shows a chronic clot in the right lower extremity involving the common femoral vein extending to mid femoral vein. History of factor V Leyden mutation Acute kidney injury, improved Mild hyponatremia, improving Diabetes mellitus type 2, [id number], normally managed with metformin on an outpatient basis Essential hypertension Hyperlipidemia Severe persistent asthma, stable Plan: The patient was seen and evaluated Labs and medications reviewed Remains on Zosyn per ID service Resume Xarelto after no further procedures per vascular surgery Stable and on room air Plan is for [place] after discharge We will continue to follow I have personally seen and examined the patient, performed the documentation and the assessment and plan as written. Number of minutes spent on the visit: 10.
[2023-04-04 11:01] LABS: ALT 14 U/L (10-49); AST 21 U/L (14-35); Albumin 2.5 d/dL (3.8-4.9); Albumin/Globulin Ratio 0.78 Ratio (1.60-3.17); Alkaline Phosphatase 212 U/L (41-126); Blood Urea Nitrogen 14.5 mg/dL (9.0-27.0); Carbon Dioxide 20.9 mmol/L (21.6-31.8); Chloride 104 mmol/L (96-109); Globulin 3.2 d/dL (1.6-3.3); Glucose 131 mg/dL (70-110); Potassium 4.4 mmol/L (3.5-5.5); Sodium 136 mmol/L (135-145); Total Bilirubin 0.6 mg/dL (0.3-1.2); Total Protein 5.7 d/dL (6.2-8.2)
[2023-04-04 11:14] LABS: Glucose,Whole Blood 198 mg/dL (70-110)
--- NOTE | 2023-04-04 12:33 | P.PN ---
Subjective Progress Note Date: 04/04/23 77 years old male with multiple medical problems as below, he has history of DVT/PE on a blood thinner, currently on xarelto, diabetes mellitus, hypertension, hyperlipidemia, osteoarthritis, hyperthyroidism. Patient is admitted with worsening right leg swelling for the last 2 weeks as he explains to me with mild pain or discomfort in the area.. Also patient presents because of hypoglycemia. Patient was taken several of diabetes medications including metformin, Actos and glipizide 20 mg daily which patient was taken every day however he says that he had low appetite over the last 10 days and he was not eating well. Patient currently complaining of from 3-4/10 pain in his right leg. Patient can walk at home using a cane as he explains to me. Patient is fully awake and oriented and denies any other complaints. No chest pain or dyspnea. No new GI or urinary complaints. No headache dizziness we akness or numbness Patient says that he was taking testosterone at home to prevent him from falling down and other male characters 04/15/2023 Patient clinically looks the same, direct but answers questions appropriately. He denies any specific pain or discomfort. He was admitted with right leg cellulitis and currently is with Zeus wrap and he had loose bowel movement 1: No abdominal pain. His blood pressure on the low side requiring midodrine 10 mg and to make her on Levophed. Thank you again at 0.06 g per KG per minute. Also he is getting normal saline at 50 mL/h. Sugars start picking up today more than 200 therefore was started and Actos. This followed now is D5 normal saline at 50 mL/h. He is on Xarelto Uriostegui history of DVT/PE. 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 Patient currently on Zosyn without edema the case. History of heart were small dose of pressors of Levophed improvement from 0.06 down to 0.03. Also he is on midodrine 10 mg 3 times a day. He is awake alert and comfortable, no new complaint compared to yesterday for the patient's site. Remains on blood thinners Xarelto for his history of right lower extremity DVT and PE. Psychiatric Clinician has been consulted for bradycardia and echocardiogram showing severe aortic stenosis.Echocardiogram showed ejection fraction of 40-45% He is off IV fluids. Insulin controlled on insulin sliding scale. Glipizide, metformin and Actos on hold. Also Cardizem is on hold. 03/29: Patient seen and evaluated bedside. Patient is alert and oriented 3. Right proximity cellulitis. Patient was treated with IV antibiotics on Zosyn. Noted to have episode of fever infectious disease following 03/30: Patient seen and evaluated bedside. Patient noted to have episode of fever and elevated W BC count overnight. We'll get CT right lower extremity to rule out abscess. Patient complained of diarrhea however stool was negative for C. diff checked while in ICU 03/31: Patient seen and evaluated bedside. Patient does complain of right lower extremity pain. Right foot exam does raise suspicion for abscess. CT right lo wer extremity completed antibiotic escalated to Zosyn and doxycycline. General surgery consulted. Xarelto discontinued in anticipation of incision and drainage 04/01 : Patient seen and evaluated at bedside, patient was seen by vascular surgery yesterday and had incision and drainage of left foot,. General surgery consult was canceled. Antibiotics broadened on Zosyn and Doxy to be continued will follow up on recommendations from infectious disease. says his pain is better controlled after procedure yesterday. Xarelto continues to remain on hold however patient started on therapeutic dose of Lovenox in case he needs more intervention 04/02. Patient seen and examined. Still complaining of pain in right lower extremity, bandage in place, dressing was changed by vascular this morning 04/03. Patient seen and examined. No acute issues overnight. Still has pain in right lower extremity. 04/04. Patient seen and examined. Complaining of scrotal swelling. Still has swelling and pain in his right lower extremity REVIEW OF SYSTEMS: CONSTITUTIONAL: No fever, no malaise,. CARDIOVASCULAR: No chest pain, no palpitations, no syncope. PULMONARY: No shortness of breath, no cough, GASTROINTESTINAL: No diarrhea, no abdominal pain. NEUROLOGICAL: No headaches, no weakness, PHYSICAL EXAMINATION: GENERAL: The patient is alert and oriented x3, not in any acute distress. Well developed, well nourished. HEENT: Pupils are round and equally reacting to light. EOMI. No scleral icterus. No conjunctival pallor. Normocephalic, atraumatic. No pharyngeal erythema. No thyromegaly. CARDIOVASCULAR: S1 and S2 present. No murmurs, rubs, or gallops. PULMONARY: Chest is clear to auscultation, no wheezing or crackles. ABDOMEN: Soft, nontender, nondistended, normoactive bowel sounds. No palpable organomegaly. MUSCULOSKELETAL: Right lower extremity bandage seen, lymphedema of lower extremities bilaterally. Scrotal swelling noticeable NEUROLOGICAL: Gross neurological examination did not reveal any focal deficits. SKIN: No rashes. Assessment and plan Acute right leg cellulitis, with abscess Septic shock Resolved Cardiomyopathy with ejection fraction 40-45% Severe aortic stenosis Diabetes mellitus, with hypoglycemia, present on admission decreased appetite secondary to above Hypertension Hyperlipidemia History of osteoarthritis Hypothyroidism History of DVT/PE on Xarelto prior to this admission Plan: In regard to RLE cellulitis > CT right lower extremity negative for necrotizing fasciitis does show diffuse edema, vascular surgery did I&D on 03/31 . Continue wound care. Continue IV Zosyn, vascular surgery and ID following In regards to sepsis, sepsis resolved. 03/30 noted to have fever repeat blood cultures no growth In regards to history of aortic stenosis patient seen by cardiology, episode of bradycardia continue to monitor In regards to history of pulmonary embolism, DC Lovenox, switch to Xarelto Continue with blood pressure support with Midodrine In regards to diabetes mellitus continue patient on Accu-Cheks before meals and at bedtime continue sliding insulin DVT prophylaxis: Xarelto GI prophylaxis: Pepcid Labs and medication were reviewed.. Continue same treatment. Continue with symptomatic treatment. Resume home medication. Monitor labs and vitals. DVT and GI prophylaxis. Further recommendations as per clinical course of the patient Dictation was produced using [employer] dictation software. please excuse any grammatical, word or spelling errors. Objective - Vital Signs Vital signs: Vital Signs Temp 98.8 F 04/04/23 07:00 Pulse 79 04/04/23 12:01 Resp 18 04/04/23 07:00 BP 118/69 04/04/23 07:00 Pulse Ox 94 L 04/04/23 07:00 FiO2 Intake & Output 04/03/23 04/04/23 04/04/23 18:59 06:59 18:59 Output Total 800 500 Balance -800 -500 Output: Urine 800 500 Other: Voiding Method Urinal - Labs CBC & Chem 7: 04/04/23 05:06 04/04/23 05:06 Labs: Abnormal Lab Results - Last 24 Hours (Table) 04/03/23 04/03/23 04/04/23 Range/Units 16:10 20:07 01:48 WBC (4.50-10.00) X 10*3/uL RBC (4.40-5.60) X 10*6/uL Hgb (13.0-17.0) d/dL Hct (39.6-50.0) % MCH (27.0-32.0) pg MCHC (32.0-37.0) d/dL RDW (11.5-14.5) % Neutrophils # (1.80-7.70) X 10*3/uL Lymphocytes # (0.90-5.00) X 10*3/uL Carbon Dioxide (21.6-31.8) mmol/L Glucose (70-110) mg/dL POC Glucose (mg/dL) 187 H 186 H 165 H (70-110) mg/dL Calcium (8.7-10.3) mg/dL Alkaline Phosphatase (41-126) U/L Total Protein (6.2-8.2) d/dL Albumin (3.8-4.9) d/dL Albumin/Globulin Ratio (1.60-3.17) Ratio 04/04/23 04/04/23 04/04/23 Range/Units 05:06 05:06 05:46 WBC 18.01 H (4.50-10.00) X 10*3/uL RBC 3.69 L (4.40-5.60) X 10*6/uL Hgb 9.7 L (13.0-17.0) d/dL Hct 30.6 L (39.6-50.0) % MCH 26.3 L (27.0-32.0) pg MCHC 31.7 L (32.0-37.0) d/dL RDW 17.2 H (11.5-14.5) % Neutrophils # 15.95 H (1.80-7.70) X 10*3/uL Lymphocytes # 0.77 L (0.90-5.00) X 10*3/uL Carbon Dioxide 20.9 L (21.6-31.8) mmol/L Glucose 131 H (70-110) mg/dL POC Glucose (mg/dL) 131 H (70-110) mg/dL Calcium 8.0 L (8.7-10.3) mg/dL Alkaline Phosphatase 212 H (41-126) U/L Total Protein 5.7 L (6.2-8.2) d/dL Albumin 2.5 L (3.8-4.9) d/dL Albumin/Globulin Ratio 0.78 L (1.60-3.17) Ratio 04/04/23 Range/Units 11:13 WBC (4.50-10.00) X 10*3/uL RBC (4.40-5.60) X 10*6/uL Hgb (13.0-17.0) d/dL Hct (39.6-50.0) % MCH (27.0-32.0) pg MCHC (32.0-37.0) d/dL RDW (11.5-14.5) % Neutrophils # (1.80-7.70) X 10*3/uL Lymphocytes # (0.90-5.00) X 10*3/uL Carbon Dioxide (21.6-31.8) mmol/L Glucose (70-110) mg/dL POC Glucose (mg/dL) 198 H (70-110) mg/dL Calcium (8.7-10.3) mg/dL Alkaline Phosphatase (41-126) U/L Total Protein (6.2-8.2) d/dL Albumin (3.8-4.9) d/dL Albumin/Globulin Ratio (1.60-3.17) Ratio Microbiology - Last 24 Hours (Table) 03/31/23 15:00 Gram Stain - Preliminary Foot - Right Tissue Culture - Preliminary Gram Neg Bacilli Presumptive MRSA Coagulase Negative Staph
--- NOTE | 2023-04-04 12:40 | P.PN ---
Subjective Patient is seen in follow-up for acute kidney injury. Sitting up in chair. Oral intake is fair. No vomiting or diarrhea. Renal function stable. Admits to good urine output. No active complaints. Vital signs are stable. General: No acute distress. HEENT: Head exam is unremarkable. LUNGS: No audible rhonchi or wheezes. HEART: Rate and Rhythm are regular. ABDOMEN: Nontender, obese. EXTREMITITES: Erythema noted. 1+ edema. No drainage. Right lower extremity wrapped. Scrotal edema noted. Objective - Vital Signs Vital signs: Vital Signs Temp 98.8 F 04/04/23 07:00 Pulse 79 04/04/23 12:01 Resp 18 04/04/23 07:00 BP 118/69 04/04/23 07:00 Pulse Ox 94 L 04/04/23 07:00 FiO2 Intake & Output 04/03/23 04/04/23 04/04/23 18:59 06:59 18:59 Output Total 800 500 Balance -800 -500 Output: Urine 800 500 Other: Voiding Method Urinal - Labs CBC & Chem 7: 04/04/23 05:06 04/04/23 05:06 Labs: Abnormal Lab Results - Last 24 Hours (Table) 04/03/23 04/03/23 04/04/23 Range/Units 16:10 20:07 01:48 WBC (4.50-10.00) X 10*3/uL RBC (4.40-5.60) X 10*6/uL Hgb (13.0-17.0) d/dL Hct (39.6-50.0) % MCH (27.0-32.0) pg MCHC (32.0-37.0) d/dL RDW (11.5-14.5) % Neutrophils # (1.80-7.70) X 10*3/uL Lymphocytes # (0.90-5.00) X 10*3/uL Carbon Dioxide (21.6-31.8) mmol/L Glucose (70-110) mg/dL POC Glucose (mg/dL) 187 H 186 H 165 H (70-110) mg/dL Calcium (8.7-10.3) mg/dL Alkaline Phosphatase (41-126) U/L Total Protein (6.2-8.2) d/dL Albumin (3.8-4.9) d/dL Albumin/Globulin Ratio (1.60-3.17) Ratio 04/04/23 04/04/23 04/04/23 Range/Units 05:06 05:06 05:46 WBC 18.01 H (4.50-10.00) X 10*3/uL RBC 3.69 L (4.40-5.60) X 10*6/uL Hgb 9.7 L (13.0-17.0) d/dL Hct 30.6 L (39.6-50.0) % MCH 26.3 L (27.0-32.0) pg MCHC 31.7 L (32.0-37.0) d/dL RDW 17.2 H (11.5-14.5) % Neutrophils # 15.95 H (1.80-7.70) X 10*3/uL Lymphocytes # 0.77 L (0.90-5.00) X 10*3/uL Carbon Dioxide 20.9 L (21.6-31.8) mmol/L Glucose 131 H (70-110) mg/dL POC Glucose (mg/dL) 131 H (70-110) mg/dL Calcium 8.0 L (8.7-10.3) mg/dL Alkaline Phosphatase 212 H (41-126) U/L Total Protein 5.7 L (6.2-8.2) d/dL Albumin 2.5 L (3.8-4.9) d/dL Albumin/Globulin Ratio 0.78 L (1.60-3.17) Ratio 04/04/23 Range/Units 11:13 WBC (4.50-10.00) X 10*3/uL RBC (4.40-5.60) X 10*6/uL Hgb (13.0-17.0) d/dL Hct (39.6-50.0) % MCH (27.0-32.0) pg MCHC (32.0-37.0) d/dL RDW (11.5-14.5) % Neutrophils # (1.80-7.70) X 10*3/uL Lymphocytes # (0.90-5.00) X 10*3/uL Carbon Dioxide (21.6-31.8) mmol/L Glucose (70-110) mg/dL POC Glucose (mg/dL) 198 H (70-110) mg/dL Calcium (8.7-10.3) mg/dL Alkaline Phosphatase (41-126) U/L Total Protein (6.2-8.2) d/dL Albumin (3.8-4.9) d/dL Albumin/Globulin Ratio (1.60-3.17) Ratio Microbiology - Last 24 Hours (Table) 03/31/23 15:00 Gram Stain - Preliminary Foot - Right Tissue Culture - Preliminary Gram Neg Bacilli Presumptive MRSA Coagulase Negative Staph Assessment and Plan Plan: Assessment: 1. Acute kidney injury secondary to ATN secondary to hypotension and infection. Improved. Creatinine stable at 1.0 today. 2. Lower extremity cellulitis on antibiotics. Wound culture positive for gram- negative bacilli. 3. Right lower extremity DVT with history of PE on anticoagulation. 4. Diabetes mellitus. 5. Edema. Status post IV Lasix 04/01/2023. Plan: Encourage oral intake. Avoid nephrotoxins. Continue to monitor renal function and urine output. Change Lasix to 20 mg IV BID.
[2023-04-04] MEDS: FUROSEMIDE 10 MG/ML 2 ML VIAL IV SCH ×2 (13:57→21:15)
[2023-04-04 16:20] LABS: Glucose,Whole Blood 141 mg/dL (70-110)
[2023-04-04] MEDS: RIVAROXABAN 20 MG TAB PO SCH (17:21)
[2023-04-04 20:24] LABS: Glucose,Whole Blood 188 mg/dL (70-110)
[2023-04-04] MEDS: MONTELUKAST 10 MG TAB PO SCH (21:16)
[2023-04-05] MEDS: PIPERACILLIN-TAZOBACTAM 3.375 GM in SODIUM CHLORIDE 0.9% 100 ML IVPB SCH ×3 (01:57→17:25)
[2023-04-05 02:27] LABS: Glucose,Whole Blood 147 mg/dL (70-110)
[2023-04-05] MEDS: INSULIN ASPART (NovoLOG) 100 UNIT/ML VIAL SQ SCH ×5 (02:52→21:07)
[2023-04-05 06:07] LABS: Glucose,Whole Blood 130 mg/dL (70-110)
[2023-04-05] MEDS: LEVOTHYROXINE 100 MCG TAB PO SCH (07:06)
[2023-04-05] MEDS: MIDODRINE 5 MG TAB PO SCH ×3 (07:06→17:21)
[2023-04-05] MEDS: FAMOTIDINE 20 MG/2 ML VIAL IV SCH ×2 (08:07→19:46)
[2023-04-05] MEDS: CHOLESTYRAMINE (WITH SUGAR) 4 GM PACKET PO SCH ×2 (08:07→17:25)
[2023-04-05] MEDS: FUROSEMIDE 10 MG/ML 2 ML VIAL IV SCH ×2 (08:07→19:45)
[2023-04-05] MEDS: NYSTATIN 100,000 UNIT/GM POWD 15 GM TOPICAL SCH ×3 (08:07→19:47)
[2023-04-05] MEDS: SYMBICORT 80-4.5 MCG INHALER INHALATION SCH ×2 (09:00→21:27)
[2023-04-05] MEDS: ALBUTEROL NEBULIZED 2.5 MG/3 ML INHALATION SCH ×4 (09:00→21:27)
[2023-04-05 11:03] LABS: BUN/Creat Ratio 12.27 Ratio (12.00-20.00); Blood Urea Nitrogen 13.5 mg/dL (9.0-27.0); Calcium 7.9 mg/dL (8.7-10.3); Carbon Dioxide 22.6 mmol/L (21.6-31.8); Chloride 105 mmol/L (96-109); Glucose 125 mg/dL (70-110); Magnesium 1.9 mg/dL (1.5-2.4); Potassium 4.2 mmol/L (3.5-5.5); Sodium 137 mmol/L (135-145)
[2023-04-05 11:05] LABS: Glucose,Whole Blood 154 mg/dL (70-110)
[2023-04-05] MEDS: HYDROcodone/APAP 10-325MG 1 EACH TAB PO PRN ×3 (12:04→22:35)
--- NOTE | 2023-04-05 12:08 | P.PN ---
Subjective Patient is seen in follow-up for acute kidney injury. Working with physical therapy. Oral intake is fair. No vomiting or diarrhea. Renal function stable. Admits to good urine output. No active complaints. Vital signs are stable. General: No acute distress. HEENT: Head exam is unremarkable. LUNGS: No audible rhonchi or wheezes. HEART: Rate and Rhythm are regular. ABDOMEN: Nontender, obese. EXTREMITITES: Erythema noted. 1+ edema. No drainage. Right lower extremity wrapped. Scrotal edema noted. Objective - Vital Signs Vital signs: Vital Signs Temp 98.5 F 04/05/23 07:03 Pulse 76 04/05/23 12:00 Resp 16 04/05/23 07:03 BP 121/61 04/05/23 07:03 Pulse Ox 97 04/05/23 07:03 FiO2 Intake & Output 04/04/23 04/05/23 04/05/23 18:59 06:59 18:59 Output Total 944 066 7226 Balance -700 -200 -1010 Output: Urine 296 585 3259 Other: # Voids 1 2 - Labs CBC & Chem 7: 04/04/23 05:06 04/05/23 06:27 Labs: Abnormal Lab Results - Last 24 Hours (Table) 04/04/23 04/04/23 04/05/23 Range/Units 16:19 20:20 02:25 Glucose (70-110) mg/dL POC Glucose (mg/dL) 141 H 188 H 147 H (70-110) mg/dL Calcium (8.7-10.3) mg/dL 04/05/23 04/05/23 04/05/23 Range/Units 06:01 06:27 11:04 Glucose 125 H (70-110) mg/dL POC Glucose (mg/dL) 130 H 154 H (70-110) mg/dL Calcium 7.9 L (8.7-10.3) mg/dL Microbiology - Last 24 Hours (Table) 03/31/23 15:00 Gram Stain - Preliminary Foot - Right Tissue Culture - Preliminary Gram Neg Bacilli Methicillin resist S. aureus Coagulase Negative Staph 03/31/23 12:24 Anaerobic Culture - Final Foot - Right 03/30/23 09:56 Blood Culture - Final Blood Assessment and Plan Plan: Assessment: 1. Acute kidney injury secondary to ATN secondary to hypotension and infection. Improved. Creatinine stable at 1.1 today. 2. Lower extremity cellulitis on antibiotics. Wound culture positive for gram- negative bacilli. 3. Right lower extremity DVT with history of PE on anticoagulation. 4. Diabetes mellitus. 5. Edema. On Lasix. Plan: Encourage oral intake. Avoid nephrotoxins. Continue to monitor renal function and urine output. Maintain IV Lasix.
--- NOTE | 2023-04-05 13:15 | P.PN ---
Subjective Progress Note Date: 04/05/23 I am seeing this patient in new consultation today 03/26/2023 for persistent and refractory hypoglycemia. Patient is a 77-year-old male with past medical history significant for diabetes mellitus type 2, hypothyroidism, factor V Leyden mutation, right lower extremity DVT, pulmonary embolism, recurrent lower extremity cellulitis, hypertension, hyperlipidemia, severe persistent asthma, GERD. His primary care provider is Dr. Tatyana Mora. Patient came to the emergency room yesterday afternoon complaining of increased redness and swelling of bilateral legs, but his right lower extremity is worse. He says that he has noticed increased redness and drainage over the last 2 weeks. This has been accompanied with fevers and generalized malaise. The patient was admitted to the hospital on IV antibiotics in the form of Zosyn. While on the general medical floor, the patient was found to be profoundly hypoglycemic. This was refractory to multiple administrations of D50W. In fact, it looks like he's had over 8 amps of D50W over the last 12 hours. He has been started on a D10W infusion at 100 ML's per hour. Patient is currently sitting up in bed, on room air, in no acute distress. He is asymptomatic even when hypoglycemic. He has not received any long-acting insulin, metformin, or sulfonylureas while in the hospital. He normally takes metformin and Glipizide at home, but has not had a dose this admission. He has NovoLog sliding scale insulin ordered, but has not received any because of his hypoglycemia. Denies any liver disease, active cancer, alcoholism. Most recent CBC is unremarkable. BMP shows sodium 128, potassium 4.5, chloride 99, serum bicarb 22, BUN 41, creatinine 1.54, glucose 35. LFTs on arrival were nonelevated. Patient is hemodynamically stable, but warrants close monitoring and intensive care unit. 03/26/2023, the patient is being seen for a follow-up. He is awake and is communicating. He has chronic lymphedema in the right lower extremity with wound and cellulitis. The wound has been debrided and the surface is quite ulcerated and erythematous with some serous material draining from the wound surface. There is also extensive edema in the right lower extremity along with erythema. He remains on anticoagulation with that also. He has been diabetic and the patient was taking oral hypoglycemic medication. The patient developed severe hypoglycemia and for that reason he was hospitalized and brought into the intensive care unit and currently is on D10 which is running at 100 mL an hour. Most recent blood sugar is at 115. He is hemodynamically stable. He is on IV Zosyn. He is afebrile. Most recent BP is 93/66 and the patient has not req uired any pressors. Producing adequate amount of urine output. His white cell cause of 9.2 with a hemoglobin 11.7 and a platelet count of 159. Sodium level is at 128 and the potassium levels at 4.5, BUN is at 45 with a creatinine of 1.5. Noted the patient was hospitalized with an acute kidney injury and the creatinine was as high as 1.9 and the renal function continues to improve. Serum cortisol level is at 22. Lactic acid level was as high as 2.8 and dropped down to 1.9. Cultures have been sent and the results are still pending for now. 03/27/2023, the patient is sitting up on a chair and is calm and comfortable. Noted overnight, the patient became progressively more hypotensive. He was started on norepinephrine and currently the norepinephrine is O- dose of 0.04 mcg/kg/m. He was also started on midodrine. He is producing adequate amount of urine output. Creatinine is improving and current labs show a BUN of 33 with a creatinine of 1.39. Sodium is at 128 as the patient was receiving D5 water regarding progressive hypoglycemia. The WBC was a 12.6 with a hemoglobin of 1 1.3 and a platelet count of 199. The most recent blood sugars at 199. The repeat Accu-Cheks have shown adequate blood sugar control and based on that, the patient was taken off the D10 and she was switched to D5 which is running at 50 mL an hour. He is also tolerating his diet. No altered mentation. No chest pain. No shortness of breath. He is on room air oxygen. Cultures are still negative. Opticell applied to his right lower extremity in the legs are wrapped for now. 03/28/2023, the patient is still requiring low-dose of norepinephrine for blood pressure control and norepinephrine is running at 0.03 mcg/kg/m. He has borderline hypotensive secondary to sepsis and cellulitis of the right lower extremity. The patient in the being covered with IV Zosyn. Cultures from the wound came back positive for enterococcus group D, staph aureus and gram- negative bacillus. The patient also had many normal skin noe. The patient's white cell count is down to 10.8 with a hemoglobin of 10.3 and a platelet count of 188. His BUN is at 31 with a creatinine of 1.4 which is improved and the sodium level is at 1:30. His blood sugars are maintained above 100 and the patient is currently off D5 infusion. The blood cultures have been negative thus far after 48 hours growth. Echocardiogram was completed yesterday and it showed a left ventricular ejection fraction of 40-45% which was mildly impaired and there was mild septal wall thickening and the patient was also identified to have severe aortic stenosis with a gradient of 78 mmHg peak and mean gradient of 43. Is also mild aortic regurgitation. 03/29/2023, the patient is off pressors and his been of present since 11 AM yesterday. He is hemodynamically stable and is maintaining his own blood pressure. Cellulitis is improving in his right lower extremity. The patient's has no specific complaints. The LAD oxygen. Creatinine is down to 1.2. Rest of the blood work on this patient shows a WBC count of 10 with a hemoglobin of 10.6 and a platelet count of 228. Sodium level is at the 131. The patient had no further episodes of hypoglycemia. Blood sugars under adequate control. He is on a slight scale insulin coverage. I separate note, he was found to have severe aortic stenosis on his echocardiogram. Cardiology is on the case for now. As mentioned, the cellulitis of the right lower oximetry is also improvin g. We're doing wound care. 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 No interventions were recommended this point in time. The patient has a chronic venous ulcer which is being treated On 03/30/2023, the patient is being seen for a follow-up. He was moved out of the intensive care unit yesterday. He is having diarrhea and stool was checked for C. diff. The patient has been switched to IV cefazolin. The patient has no new complaints otherwise for now. No respiratory difficulties. The white cell count of 18.8 with a hemoglobin of 10.9. BUN is at 27 with a creatinine of 1.3 and a sodium levels of 132. No shortness of breath. No chest pain. Vitals are stable and the patient is currently on room air oxygen. On today's evaluation of 03/31/2023, the patient remains on the medical floor. The patient was transferred out of the intensive care unit. He has severe aortic stenosis the also was hypotensive due to sepsis and cellulitis and he also had a skin wound/necrosis and his right lower extremity. The patient was seen by vascular surgery and the patient underwent debridement. Deep tissue culture was also taken. The patient's white cell count normalized and is up to 26 and the patient was placed back on IV Zosyn. Hemoglobin stable at 11.3. BUN is at 27 with a creatinine of 1 and a sodium level is at 132. No episodes of hypoglycemia this point in time. The patient is onthe coverage and oral hypoglycemic medications has been held. On a separate note, the patient was also having diarrhea. Stool for C. diff has been negative. On 04/01/2023, the patient is resting comfortably in bed. No new complaints. Surgical debridement of the right lower extremity wound has been done. The white cell count remains elevated at 26. He was having diarrhea and this is gradually improving. The patient's stool for C. diff has been negative and the patient remains on IV Zosyn. No other significant events overnight. Hemoglobin stable at 10.1. BUN is at 21 with a creatinine of 1.1 and his sodium level is at 134. The patient is seen today 04/02/2023 in follow-up on the regular medical floor. He is currently resting comfortably in bed. Awake and alert in no acute distress. He is maintaining O2 saturations in the 90s on room air. His right lower extremity wound is positive for gram-negative bacilli. He is currently on Zosyn and daptomycin. Remains on Lovenox. White count 24.4. Hemoglobin 10.9. Late Mason for 51. Sodium 136. Potassium 4.2. Bicarb 19. BUN 20. Creatinine 1.2. Glucose 116. He is continued on Ventolin, Symbicort, Singulair. Dressing to the right lower extremity remains dry and intact. The patient is seen today 04/03/2023 in follow-up on the regular medical floor. He is currently awake and alert in no acute distress. Sitting up in bed. Feeling better today compared to yesterday. Maintaining good O2 saturations in the 90s on room air. He remains afebrile. Hemodynamically stable. Right foot wound is positive for gram-negative bacilli. Sodium 136. Potassium 4.1. Bicarb 20. BUN 17. Creatinine 1.1. Glucose 122. He is continued on Symbicort and albuterol. Remains on Lovenox while Xarelto on hold. Continued on oral diuretics. Antibiotics in the form of daptomycin and Zosyn. ID services are on the case. The patient is seen today 04/04/2023 in follow-up on the regular medical floor. He is currently sitting up in a chair. Awake and alert in no acute distress. Maintaining O2 saturations in the 90s on room air. White count 18.0. Hemoglobin 9.7. Platelets 409. Right foot wound cultures are positive for gram-negative bacilli, presumptive MRSA. He is currently on Zosyn. Daptomycin was discontinued per ID services. Continue on Symbicort, albuterol, Singulair. Lovenox while off Xarelto. The patient is seen today 04/05/2023 in follow-up on the regular medical floor. He is currently resting comfortably in bed. Awake and alert in no acute distress. He did receive a left upper extremity PICC line. He is continued on daptomycin and Zosyn. Right foot cultures are positive for MRSA and gram- negative bacilli. Sodium 137. Potassium 4.2. Bicarb 23. BUN 14. Creatinine 1.1. Continue on Symbicort, albuterol, Singulair. Lovenox discontinued. Resumed Xarelto. Objective - Vital Signs Vital signs: Vital Signs Temp 98.5 F 04/05/23 07:03 Pulse 80 04/05/23 12:12 Resp 16 04/05/23 07:03 BP 121/61 04/05/23 07:03 Pulse Ox 97 04/05/23 07:03 FiO2 Intake & Output 04/04/23 04/05/23 04/05/23 18:59 06:59 18:59 Output Total 333 864 1669 Balance -700 -200 -1010 Output: Urine [phone] Other: # Voids 1 2 - Exam GENERAL EXAM: Alert, 77-year-old male, on room air, comfortable in no apparent distress. HEAD: Normocephalic and atraumatic EYES: Normal reaction of pupils, equal size. NOSE: Clear with pink turbinates. THROAT: No erythema or exudates. NECK: No masses, no JVD. CHEST: No chest wall deformity. LUNGS: Equal air entry with bibasilar inspiratory crackles. No wheezes, rhonchi, focal dullness. CVS: S1 and S2 normal with systolic ejection murmur grade 3/6 audible murmur, regular rhythm. No extra heart sounds ABDOMEN: Obese abdomen, No hepatosplenomegaly, active bowel sounds, no guarding or rigidity. SPINE: No scoliosis or deformity SKIN: Bilateral lower extremity erythema with purulent drainage. CENTRAL NERVOUS SYSTEM: No focal deficits, tone is normal in all 4 extremities. EXTREMITIES: Right lower extremity is grossly enlarged and erythemic. Left lower extremity is also edematous, with opticell silver and the erythema is improved considerably and wrapped in Kerlix. Peripheral pulses are intact. - Labs CBC & Chem 7: 04/04/23 05:06 04/05/23 06:27 Labs: Abnormal Lab Results - Last 24 Hours (Table) 04/04/23 04/04/23 04/05/23 Range/Units 16:19 20:20 02:25 Glucose (70-110) mg/dL POC Glucose (mg/dL) 141 H 188 H 147 H (70-110) mg/dL Calcium (8.7-10.3) mg/dL 04/05/23 04/05/23 04/05/23 Range/Units 06:01 06:27 11:04 Glucose 125 H (70-110) mg/dL POC Glucose (mg/dL) 130 H 154 H (70-110) mg/dL Calcium 7.9 L (8.7-10.3) mg/dL Microbiology - Last 24 Hours (Table) 03/31/23 15:00 Gram Stain - Preliminary Foot - Right Tissue Culture - Preliminary Gram Neg Bacilli Methicillin resist S. aureus Coagulase Negative Staph 03/31/23 12:24 Anaerobic Culture - Final Foot - Right 03/30/23 09:56 Blood Culture - Final Blood Assessment and Plan Assessment: Diabetes mellitus with episodes Hypoglycemia refractory to glucose replacement, improved and the patient is currently off oral hypoglycemic medication and the patient is also off the D5 infusion. He'll be offered insulin sliding scale coverage only at this point in time. No further episodes of hypoglycemia. Current glucose 154. Bilateral lower extremity cellulitis, worse in the right lower extremity and the patient has a superficial wound that has been debrided and there is a wound covering the anterior aspect of the right lower extremity was erythematous and draining minimally, nonpurulent material. Cultures are polymicrobial including gram-negative bacilli, presumptive MRSA, coagulase negative staph, currently on Zosyn . Acute leukocytosis Diarrhea , stool for C. 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 Severe aortic stenosis with a peak gradient of 78 and mean gradient of 43 mmHg History of right lower extremity DVT and pulmonary embolism anticoagulated on Xarelto, repeat ultrasound shows a chronic clot in the right lower extremity involving the common femoral vein extending to mid femoral vein. History of factor V Leyden mutation Acute kidney injury, improved Mild hyponatremia, improving Diabetes mellitus type 2, [id number], normally managed with metformin on an outpatient basis Essential hypertension Hyperlipidemia Severe persistent asthma, stable Plan: The patient was seen and evaluated Labs and medications reviewed Claim placed Remains on daptomycin and Zosyn per ID service Resumed Xarelto Stable and on room air Plan is for [facility] after discharge I have personally seen and examined the patient, performed the documentation and the assessment and plan as written. Number of minutes spent on the visit: 10.
--- NOTE | 2023-04-05 13:58 | P.PN ---
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 Patient is admitted with worsening right leg swelling for the last 2 weeks as he explains to me with mild pain or discomfort in the area.. Also patient presents because of hypoglycemia. Patient was taken several of diabetes medications including metformin, Actos and glipizide 20 mg daily which patient was taken every day however he says that he had low appetite over the last 10 days and he was not eating well. Patient currently complaining of from 3-4/10 pain in his right leg. Patient can walk at home using a cane as he explains to me. Patient is fully awake and oriented and denies any other complaints. No chest pain or dyspnea. No new GI or urinary complaints. No headache dizziness we akness or numbness Patient says that he was taking testosterone at home to prevent him from falling down and other male characters 04/15/2023 Patient clinically looks the same, direct but answers questions appropriately. He denies any specific pain or discomfort. He was admitted with right leg cellulitis and currently is with Zeus wrap and he had loose bowel movement 1: No abdominal pain. His blood pressure on the low side requiring midodrine 10 mg and to make her on Levophed. Thank you again at 0.06 g per KG per minute. Also he is getting normal saline at 50 mL/h. Sugars start picking up today more than 200 therefore was started and Actos. This followed now is D5 normal saline at 50 mL/h. He is on Xarelto Uriostegui history of DVT/PE. 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 Patient currently on Zosyn without edema the case. History of heart were small dose of pressors of Levophed improvement from 0.06 down to 0.03. Also he is on midodrine 10 mg 3 times a day. He is awake alert and comfortable, no new complaint compared to yesterday for the patient's site. Remains on blood thinners Xarelto for his history of right lower extremity DVT and PE. Child Watch Attendant has been consulted for bradycardia and echocardiogram showing severe aortic stenosis.Echocardiogram showed ejection fraction of 40-45% He is off IV fluids. Insulin controlled on insulin sliding scale. Glipizide, metformin and Actos on hold. Also Cardizem is on hold. 03/29: Patient seen and evaluated bedside. Patient is alert and oriented 3. Right proximity cellulitis. Patient was treated with IV antibiotics on Zosyn. Noted to have episode of fever infectious disease following 03/30: Patient seen and evaluated bedside. Patient noted to have episode of fever and elevated W BC count overnight. We'll get CT right lower extremity to rule out abscess. Patient complained of diarrhea however stool was negative for C. diff checked while in ICU 03/31: Patient seen and evaluated bedside. Patient does complain of right lower extremity pain. Right foot exam does raise suspicion for abscess. CT right lo wer extremity completed antibiotic escalated to Zosyn and doxycycline. General surgery consulted. Xarelto discontinued in anticipation of incision and drainage 04/01 : Patient seen and evaluated at bedside, patient was seen by vascular surgery yesterday and had incision and drainage of left foot,. General surgery consult was canceled. Antibiotics broadened on Zosyn and Doxy to be continued will follow up on recommendations from infectious disease. says his pain is better controlled after procedure yesterday. Xarelto continues to remain on hold however patient started on therapeutic dose of Lovenox in case he needs more intervention 04/02. Patient seen and examined. Still complaining of pain in right lower extremity, bandage in place, dressing was changed by vascular this morning 04/03. Patient seen and examined. No acute issues overnight. Still has pain in right lower extremity. 04/04. Patient seen and examined. Complaining of scrotal swelling. Still has swelling and pain in his right lower extremity 04/05. Patient seen and examined. Scrotal edema has improved. REVIEW OF SYSTEMS: CONSTITUTIONAL: No fever, no malaise,. CARDIOVASCULAR: No chest pain, no palpitations, no syncope. PULMONARY: No shortness of breath, no cough, GASTROINTESTINAL: No diarrhea, no abdominal pain. NEUROLOGICAL: No headaches, no weakness, PHYSICAL EXAMINATION: GENERAL: The patient is alert and oriented x3, not in any acute distress. Well developed, well nourished. HEENT: Pupils are round and equally reacting to light. EOMI. No scleral icterus. No conjunctival pallor. Normocephalic, atraumatic. No pharyngeal erythema. No thyromegaly. CARDIOVASCULAR: S1 and S2 present. No murmurs, rubs, or gallops. PULMONARY: Chest is clear to auscultation, no wheezing or crackles. ABDOMEN: Soft, nontender, nondistended, normoactive bowel sounds. No palpable organomegaly. MUSCULOSKELETAL: Right lower extremity bandage seen, lymphedema of lower extremities bilaterally. Scrotal swelling noticeable NEUROLOGICAL: Gross neurological examination did not reveal any focal deficits. SKIN: No rashes. Assessment and plan Acute right leg cellulitis, with abscess Septic shock Resolved Cardiomyopathy with ejection fraction 40-45% Severe aortic stenosis Diabetes mellitus, with hypoglycemia, present on admission decreased appetite secondary to above Hypertension Hyperlipidemia History of osteoarthritis Hypothyroidism History of DVT/PE on Xarelto prior to this admission Plan: In regard to RLE cellulitis > CT right lower extremity negative for necrotizing fasciitis does show diffuse edema, vascular surgery did I&D on 03/31 . Continue wound care. Continue IV Zosyn and daptomycin, vascular surgery and ID following In regards to sepsis, sepsis resolved. 03/30 noted to have fever repeat blood cultures no growth In regards to history of aortic stenosis patient seen by cardiology, episode of bradycardia continue to monitor In regards to history of pulmonary embolism, continue Xarelto Continue with blood pressure support with Midodrine In regards to diabetes mellitus continue patient on Accu-Cheks before meals and at bedtime continue sliding insulin DVT prophylaxis: Xarelto GI prophylaxis: Pepcid Labs and medication were reviewed.. Continue same treatment. Continue with s ymptomatic treatment. Resume home medication. Monitor labs and vitals. DVT and GI prophylaxis. Further recommendations as per clinical course of the patient Dictation was produced using [email or web address] dictation software. please excuse any grammatical, word or spelling errors. Objective - Vital Signs Vital signs: Vital Signs Temp 98.5 F 04/05/23 07:03 Pulse 80 04/05/23 12:12 Resp 16 04/05/23 07:03 BP 121/61 04/05/23 07:03 Pulse Ox 97 04/05/23 07:03 FiO2 Intake & Output 04/04/23 04/05/23 04/05/23 18:59 06:59 18:59 Output Total 899 885 6720 Balance -700 -200 -1010 Output: Urine 086 644 2841 Other: # Voids 1 2 - Labs CBC & Chem 7: 04/04/23 05:06 04/05/23 06:27 Labs: Abnormal Lab Results - Last 24 Hours (Table) 04/04/23 04/04/23 04/05/23 Range/Units 16:19 20:20 02:25 Glucose (70-110) mg/dL POC Glucose (mg/dL) 141 H 188 H 147 H (70-110) mg/dL Calcium (8.7-10.3) mg/dL 04/05/23 04/05/23 04/05/23 Range/Units 06:01 06:27 11:04 Glucose 125 H (70-110) mg/dL POC Glucose (mg/dL) 130 H 154 H (70-110) mg/dL Calcium 7.9 L (8.7-10.3) mg/dL Microbiology - Last 24 Hours (Table) 03/31/23 15:00 Gram Stain - Preliminary Foot - Right Tissue Culture - Preliminary Gram Neg Bacilli Methicillin resist S. aureus Coagulase Negative Staph 03/31/23 12:24 Anaerobic Culture - Final Foot - Right 03/30/23 09:56 Blood Culture - Final Blood
--- NOTE | 2023-04-05 15:54 | P.PN ---
Subjective Progress Note Date: 04/04/23 Principal diagnosis: Right lower extremity wound and cellulitis Patient is a 77-year-old male with a past medical history negative for hypertension hyperlipidemia diabetes mellitus PE patient also have a lower extremity venous stasis ulcer and history of recurrent cellulitis patient presenting to the hospital concerning for right leg infection patient noticed to have increasing redness to discomfort and drainage to the right lower extremity, admitted to the ICU because of hypoglycemia On today's evaluation that is 04/04/2023, the patient continues to be afebrile, the patient is breathing comfortably on room air , the patient denies any chest pain shortness of breath or cough, the patient denies abdominal pain no worsening diarrhea, the patient is still complaining of pain to the right foot however has decreased in intensity, Patient did have white count is down to 18.01, creatinine is 1.0, local culture now growing MRSA in addition to the gram-negative Objective - Vital Signs Vital signs: Vital Signs Temp 98.8 F 04/04/23 07:00 Pulse 79 04/04/23 12:01 Resp 18 04/04/23 07:00 BP 118/69 04/04/23 07:00 Pulse Ox 94 L 04/04/23 07:00 FiO2 Intake & Output 04/03/23 04/04/23 04/04/23 18:59 06:59 18:59 Output Total 800 500 Balance -800 -500 Output: Urine 800 500 Other: Voiding Method Urinal - Exam GENERAL DESCRIPTION: An elderly male lying in bed in no distress RESPIRATORY SYSTEM: Unlabored breathing , decreased breath sounds at bases HEART: S1 S2 regular rate and rhythm , ABDOMEN: Soft , no tenderness EXTREMITIES: Right foot dorsum wound is currently dressed with minimal blood stained drainage on the dressing - Labs CBC & Chem 7: 04/04/23 05:06 04/05/23 06:27 Labs: Abnormal Lab Results - Last 24 Hours (Table) 04/03/23 04/03/23 04/04/23 Range/Units 16:10 20:07 01:48 WBC (4.50-10.00) X 10*3/uL RBC (4.40-5.60) X 10*6/uL Hgb (13.0-17.0) d/dL Hct (39.6-50.0) % MCH (27.0-32.0) pg MCHC (32.0-37.0) d/dL RDW (11.5-14.5) % Neutrophils # (1.80-7.70) X 10*3/uL Lymphocytes # (0.90-5.00) X 10*3/uL Carbon Dioxide (21.6-31.8) mmol/L Glucose (70-110) mg/dL POC Glucose (mg/dL) 187 H 186 H 165 H (70-110) mg/dL Calcium (8.7-10.3) mg/dL Alkaline Phosphatase (41-126) U/L Total Protein (6.2-8.2) d/dL Albumin (3.8-4.9) d/dL Albumin/Globulin Ratio (1.60-3.17) Ratio 04/04/23 04/04/23 04/04/23 Range/Units 05:06 05:06 05:46 WBC 18.01 H (4.50-10.00) X 10*3/uL RBC 3.69 L (4.40-5.60) X 10*6/uL Hgb 9.7 L (13.0-17.0) d/dL Hct 30.6 L (39.6-50.0) % MCH 26.3 L (27.0-32.0) pg MCHC 31.7 L (32.0-37.0) d/dL RDW 17.2 H (11.5-14.5) % Neutrophils # 15.95 H (1.80-7.70) X 10*3/uL Lymphocytes # 0.77 L (0.90-5.00) X 10*3/uL Carbon Dioxide 20.9 L (21.6-31.8) mmol/L Glucose 131 H (70-110) mg/dL POC Glucose (mg/dL) 131 H (70-110) mg/dL Calcium 8.0 L (8.7-10.3) mg/dL Alkaline Phosphatase 212 H (41-126) U/L Total Protein 5.7 L (6.2-8.2) d/dL Albumin 2.5 L (3.8-4.9) d/dL Albumin/Globulin Ratio 0.78 L (1.60-3.17) Ratio 04/04/23 Range/Units 11:13 WBC (4.50-10.00) X 10*3/uL RBC (4.40-5.60) X 10*6/uL Hgb (13.0-17.0) d/dL Hct (39.6-50.0) % MCH (27.0-32.0) pg MCHC (32.0-37.0) d/dL RDW (11.5-14.5) % Neutrophils # (1.80-7.70) X 10*3/uL Lymphocytes # (0.90-5.00) X 10*3/uL Carbon Dioxide (21.6-31.8) mmol/L Glucose (70-110) mg/dL POC Glucose (mg/dL) 198 H (70-110) mg/dL Calcium (8.7-10.3) mg/dL Alkaline Phosphatase (41-126) U/L Total Protein (6.2-8.2) d/dL Albumin (3.8-4.9) d/dL Albumin/Globulin Ratio (1.60-3.17) Ratio Microbiology - Last 24 Hours (Table) 03/31/23 15:00 Gram Stain - Preliminary Foot - Right Tissue Culture - Preliminary Gram Neg Bacilli Presumptive MRSA Coagulase Negative Staph Assessment and Plan (1) Cellulitis of right leg Current Visit: Yes Status: Acute Code(s): L03.115 - CELLULITIS OF RIGHT LOWER LIMB SNOMED Code(s): 897948836 (2) Chronic cutaneous venous stasis ulcer Current Visit: No Status: Acute Code(s): I83.009 - VARICOSE VEINS OF UNSP LOWER EXTREMITY W ULCER OF UNSP SITE; L97.909 - NON-PRS CHRONIC ULC UNSP PRT OF UNSP LOW LEG W UNSP SEVERITY SNOMED Code(s): 75898937 Plan: 1patient was in the hospital with increasing pain swelling redness of the right lower extremity in this patient who do have a history of venous stasis ulcer to right lower extremity and concerning for cellulitis likely from gram-positive skin noe 2local wound care with Aquacel silver dressing and mild compression dressing. 3-Patient noticed to have swelling and skin necrosis on the dorsum aspect of the right foot, has been evaluated Vascular surgery status post debridement and deep cultures which are currently growing gram-negative bacilli 4-With local cultures predominantly growing gram-negative bacilli as well as MRSA. Patient to Continue with the Zosyn and will restart daptomycin Dictation was produced using [email or web address] dictation software. please excuse any grammatical, word or spelling errors. Time with Patient: Less than 30
--- NOTE | 2023-04-05 15:56 | P.PN ---
Subjective Progress Note Date: 04/05/23 Principal diagnosis: Right lower extremity wound and cellulitis Patient is a 77-year-old male with a past medical history negative for hypertension hyperlipidemia diabetes mellitus PE patient also have a lower extremity venous stasis ulcer and history of recurrent cellulitis patient presenting to the hospital concerning for right leg infection patient noticed to have increasing redness to discomfort and drainage to the right lower extremity, admitted to the ICU because of hypoglycemia On today's evaluation that is 04/05/2023, the patient denies any fever or any c hills, the patient is breathing comfortably on room air , the patient denies any chest pain shortness of breath or cough, the patient denies abdominal pain no worsening diarrhea, the patient pain to the right foot and leg has decreased in intensity, patient denies any new symptoms Patient did have white count is down to 18.01, creatinine is 1.0 as of yesterday no CBC was done today, local culture now growing MRSA in addition to the gram- negative Objective - Vital Signs Vital signs: Vital Signs Temp 98.5 F 04/05/23 07:03 Pulse 80 04/05/23 12:12 Resp 16 04/05/23 07:03 BP 121/61 04/05/23 07:03 Pulse Ox 97 04/05/23 07:03 FiO2 Intake & Output 04/04/23 04/05/23 04/05/23 18:59 06:59 18:59 Output Total 900 485 7511 Balance -700 -200 -1010 Output: Urine 494 940 0190 Other: # Voids 1 2 - Exam GENERAL DESCRIPTION: An elderly male lying in bed in no distress RESPIRATORY SYSTEM: Unlabored breathing , decreased breath sounds at bases HEART: S1 S2 regular rate and rhythm , ABDOMEN: Soft , no tenderness EXTREMITIES: Right foot dorsum wound is currently dressed with minimal blood stained drainage on the dressing - Labs CBC & Chem 7: 04/04/23 05:06 04/05/23 06:27 Labs: Abnormal Lab Results - Last 24 Hours (Table) 04/04/23 04/04/23 04/05/23 Range/Units 16:19 20:20 02:25 Glucose (70-110) mg/dL POC Glucose (mg/dL) 141 H 188 H 147 H (70-110) mg/dL Calcium (8.7-10.3) mg/dL 08/06/1804/05/23 04/05/23 Range/Units 06:01 06:27 11:04 Glucose 125 H (70-110) mg/dL POC Glucose (mg/dL) 130 H 154 H (70-110) mg/dL Calcium 7.9 L (8.7-10.3) mg/dL Microbiology - Last 24 Hours (Table) 03/31/23 15:00 Gram Stain - Preliminary Foot - Right Tissue Culture - Preliminary Gram Neg Bacilli Methicillin resist S. aureus Coagulase Negative Staph 03/31/23 12:24 Anaerobic Culture - Final Foot - Right 03/30/23 09:56 Blood Culture - Final Blood Assessment and Plan (1) Cellulitis of right leg Current Visit: Yes Status: Acute Code(s): L03.115 - CELLULITIS OF RIGHT LOWER LIMB SNOMED Code(s): 194324617 (2) Chronic cutaneous venous stasis ulcer Current Visit: No Status: Acute Code(s): I83.009 - VARICOSE VEINS OF UNSP LOWER EXTREMITY W ULCER OF UNSP SITE; L97.909 - NON-PRS CHRONIC ULC UNSP PRT OF UNSP LOW LEG W UNSP SEVERITY SNOMED Code(s): 21571519 Plan: 1patient was in the hospital with increasing pain swelling redness of the right lower extremity in this patient who do have a history of venous stasis ulcer to right lower extremity and concerning for cellulitis likely from gram-positive skin noe 2local wound care with Aquacel silver dressing and mild compression dressing. 3-Patient noticed to have swelling and skin necrosis on the dorsum aspect of the right foot, has been evaluated Vascular surgery status post debridement and deep cultures which are currently growing gram-negative bacilli 4-With local cultures predominantly growing gram-negative bacilli as well as MRSA. 5- Patient to Continue with the Zosyn and daptomycin , patient discharge ant ibiotics on the basis of the final cultures patient already has a PICC line and [facility] and plan is for IV antibiotic on discharge this was discussed with the admitting team as well as the case finisher Dictation was produced using [employer] dictation software. please excuse any gramm atical, word or spelling errors. Time with Patient: Less than 30
[2023-04-05 16:55] LABS: Glucose,Whole Blood 180 mg/dL (70-110)
[2023-04-05] MEDS: RIVAROXABAN 20 MG TAB PO SCH (17:25)
[2023-04-05] MEDS: HYDROmorphone 0.5 MG/0.5 ML SYRINGE IVP PRN ×2 (19:46→23:47)
[2023-04-05] MEDS: MONTELUKAST 10 MG TAB PO SCH (19:47)
[2023-04-05 20:53] LABS: Glucose,Whole Blood 114 mg/dL (70-110)
[2023-04-06] MEDS: PIPERACILLIN-TAZOBACTAM 3.375 GM in SODIUM CHLORIDE 0.9% 100 ML IVPB SCH ×3 (02:08→17:21)
[2023-04-06 02:37] LABS: Glucose,Whole Blood 128 mg/dL (70-110)
[2023-04-06] MEDS: INSULIN ASPART (NovoLOG) 100 UNIT/ML VIAL SQ SCH ×5 (02:39→21:09)
[2023-04-06] MEDS: HYDROmorphone 0.5 MG/0.5 ML SYRINGE IVP PRN (02:47)
[2023-04-06 05:56] LABS: Glucose,Whole Blood 115 mg/dL (70-110)
[2023-04-06] MEDS: LEVOTHYROXINE 100 MCG TAB PO SCH (06:09)
[2023-04-06] MEDS: HYDROcodone/APAP 10-325MG 1 EACH TAB PO PRN ×3 (06:09→21:14)
[2023-04-06] MEDS: FAMOTIDINE 20 MG/2 ML VIAL IV SCH ×2 (08:02→21:09)
[2023-04-06] MEDS: MIDODRINE 5 MG TAB PO SCH ×3 (08:02→17:21)
[2023-04-06] MEDS: FUROSEMIDE 10 MG/ML 2 ML VIAL IV SCH ×2 (08:03→21:08)
[2023-04-06] MEDS: NYSTATIN 100,000 UNIT/GM POWD 15 GM TOPICAL SCH ×3 (08:03→21:10)
[2023-04-06] MEDS: SYMBICORT 80-4.5 MCG INHALER INHALATION SCH ×2 (08:38→20:26)
[2023-04-06] MEDS: ALBUTEROL NEBULIZED 2.5 MG/3 ML INHALATION SCH ×4 (08:38→20:26)
[2023-04-06] MEDS: CHOLESTYRAMINE (WITH SUGAR) 4 GM PACKET PO SCH ×2 (10:13→17:21)
[2023-04-06 11:17] LABS: Glucose,Whole Blood 201 mg/dL (70-110)
--- NOTE | 2023-04-06 11:28 | P.PN ---
Subjective Patient is seen in follow-up for acute kidney injury. Oral intake is fair. No vomiting or diarrhea. Renal function stable. Admits to good urine output. No active complaints. Vital signs are stable. General: No acute distress. HEENT: Head exam is unremarkable. LUNGS: No audible rhonchi or wheezes. HEART: Rate and Rhythm are regular. ABDOMEN: Nontender, obese. EXTREMITITES: Erythema noted. 1+ edema. No drainage. Right lower extremity wr apped. Scrotal edema noted. Objective - Vital Signs Vital signs: Vital Signs Temp 98.3 F 04/06/23 06:58 Pulse 80 04/06/23 08:52 Resp 18 04/06/23 11:05 BP 111/67 04/06/23 06:58 Pulse Ox 94 L 04/06/23 06:58 FiO2 Intake & Output 04/05/23 04/06/23 04/06/23 18:59 06:59 18:59 Intake Total 180 Output Total 1610 850 Balance -1610 -850 180 Intake: Oral 180 Output: Urine 1610 850 Other: Voiding Method Urinal Urinal # Voids 3 - Labs CBC & Chem 7: 04/04/23 05:06 04/05/23 06:27 Labs: Abnormal Lab Results - Last 24 Hours (Table) 04/05/23 04/05/23 04/06/23 Range/Units 16:53 20:51 02:36 POC Glucose (mg/dL) 180 H 114 H 128 H (70-110) mg/dL 04/06/23 04/06/23 Range/Units 05:54 11:16 POC Glucose (mg/dL) 115 H 201 H (70-110) mg/dL Microbiology - Last 24 Hours (Table) 03/31/23 15:00 Anaerobic Culture - Preliminary Foot - Right 03/31/23 15:00 Gram Stain - Preliminary Foot - Right Tissue Culture - Preliminary Gram Neg Bacilli Methicillin resist S. aureus Coagulase Negative Staph Assessment and Plan Plan: Assessment: 1. Acute kidney injury secondary to ATN secondary to hypotension and infection. Improved. Creatinine stable at 1.1 yesterday. 2. Lower extremity cellulitis on antibiotics. Wound culture positive for gram- negative bacilli. 3. Right lower extremity DVT with history of PE on anticoagulation. 4. Diabetes mellitus. 5. Edema. On Lasix. Plan: Encourage oral intake. Avoid nephrotoxins. Continue to monitor renal function and urine output. Maintain IV Lasix.
--- NOTE | 2023-04-06 14:13 | P.PN ---
Progress Note - Text 77-year-old gentleman history of lymphedema bilateral Esccaleb has a venous ulcer lateral aspect of the right lower leg and dorsum aspect of the foot patient has history of for chronic DVT patient has been using lymphedema pump at home today we've changed the dressing and the right lower extremity wound is granulating with X a silver and also we placed 2 Aquacel rope to the dorsal aspect of the foot wound mild drainage noted patient has a lymphedema pump in his room I advised him to use daily continue with local wound care dressing shoe which change every 48 hours using X a silver
--- NOTE | 2023-04-06 14:51 | P.PN ---
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 Patient is admitted with worsening right leg swelling for the last 2 weeks as he explains to me with mild pain or discomfort in the area.. Also patient presents because of hypoglycemia. Patient was taken several of diabetes medications including metformin, Actos and glipizide 20 mg daily which patient was taken every day however he says that he had low appetite over the last 10 days and he was not eating well. Patient currently complaining of from 3-4/10 pain in his right leg. Patient can walk at home using a cane as he explains to me. Patient is fully awake and oriented and denies any other complaints. No chest pain or dyspnea. No new GI or urinary complaints. No headache dizziness we akness or numbness Patient says that he was taking testosterone at home to prevent him from falling down and other male characters 04/15/2023 Patient clinically looks the same, direct but answers questions appropriately. He denies any specific pain or discomfort. He was admitted with right leg cellulitis and currently is with Zeus wrap and he had loose bowel movement 1: No abdominal pain. His blood pressure on the low side requiring midodrine 10 mg and to make her on Levophed. Thank you again at 0.06 g per KG per minute. Also he is getting normal saline at 50 mL/h. Sugars start picking up today more than 200 therefore was started and Actos. This followed now is D5 normal saline at 50 mL/h. He is on Xarelto Uriostegui history of DVT/PE. 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 Patient currently on Zosyn without edema the case. History of heart were small dose of pressors of Levophed improvement from 0.06 down to 0.03. Also he is on midodrine 10 mg 3 times a day. He is awake alert and comfortable, no new complaint compared to yesterday for the patient's site. Remains on blood thinners Xarelto for his history of right lower extremity DVT and PE. Grey Roll Worker has been consulted for bradycardia and echocardiogram showing severe aortic stenosis.Echocardiogram showed ejection fraction of 40-45% He is off IV fluids. Insulin controlled on insulin sliding scale. Glipizide, metformin and Actos on hold. Also Cardizem is on hold. 03/29: Patient seen and evaluated bedside. Patient is alert and oriented 3. Right proximity cellulitis. Patient was treated with IV antibiotics on Zosyn. Noted to have episode of fever infectious disease following 03/30: Patient seen and evaluated bedside. Patient noted to have episode of fever and elevated W BC count overnight. We'll get CT right lower extremity to rule out abscess. Patient complained of diarrhea however stool was negative for C. diff checked while in ICU 03/31: Patient seen and evaluated bedside. Patient does complain of right lower extremity pain. Right foot exam does raise suspicion for abscess. CT right lo wer extremity completed antibiotic escalated to Zosyn and doxycycline. General surgery consulted. Xarelto discontinued in anticipation of incision and drainage 04/01 : Patient seen and evaluated at bedside, patient was seen by vascular surgery yesterday and had incision and drainage of left foot,. General surgery consult was canceled. Antibiotics broadened on Zosyn and Doxy to be continued will follow up on recommendations from infectious disease. says his pain is better controlled after procedure yesterday. Xarelto continues to remain on hold however patient started on therapeutic dose of Lovenox in case he needs more intervention 04/02. Patient seen and examined. Still complaining of pain in right lower extremity, bandage in place, dressing was changed by vascular this morning 04/03. Patient seen and examined. No acute issues overnight. Still has pain in right lower extremity. 04/04. Patient seen and examined. Complaining of scrotal swelling. Still has swelling and pain in his right lower extremity 04/05. Patient seen and examined. Scrotal edema has improved. 04/06. Patient seen and examined. Continues to be afebrile. REVIEW OF SYSTEMS: CONSTITUTIONAL: No fever, no malaise,. CARDIOVASCULAR: No chest pain, no palpitations, no syncope. PULMONARY: No shortness of breath, no cough, GASTROINTESTINAL: No diarrhea, no abdominal pain. NEUROLOGICAL: No headaches, no weakness, PHYSICAL EXAMINATION: GENERAL: The patient is alert and oriented x3, not in any acute distress. Well developed, well nourished. HEENT: Pupils are round and equally reacting to light. EOMI. No scleral icterus. No conjunctival pallor. Normocephalic, atraumatic. No pharyngeal erythema. No thyromegaly. CARDIOVASCULAR: S1 and S2 present. No murmurs, rubs, or gallops. PULMONARY: Chest is clear to auscultation, no wheezing or crackles. ABDOMEN: Soft, nontender, nondistended, normoactive bowel sounds. No palpable organomegaly. MUSCULOSKELETAL: Right lower extremity bandage seen, lymphedema of lower extremities bilaterally. Scrotal swelling noticeable NEUROLOGICAL: Gross neurological examination did not reveal any focal deficits. SKIN: No rashes. Assessment and plan Acute right leg cellulitis, with abscess Septic shock Resolved Cardiomyopathy with ejection fraction 40-45% Severe aortic stenosis Diabetes mellitus, with hypoglycemia, present on admission decreased appetite secondary to above Hypertension Hyperlipidemia History of osteoarthritis Hypothyroidism History of DVT/PE on Xarelto prior to this admission Plan: In regard to RLE cellulitis > CT right lower extremity negative for necrotizing fasciitis does show diffuse edema, vascular surgery did I&D on 03/31 . Continue wound care. Continue IV Zosyn and daptomycin, vascular surgery and ID following In regards to sepsis, sepsis resolved. 03/30 noted to have fever repeat blood cultures no growth In regards to history of aortic stenosis patient seen by cardiology, continue current medical treatment In regards to history of pulmonary embolism, continue Xarelto Continue with blood pressure support with Midodrine In regards to diabetes mellitus continue patient on Accu-Cheks before meals and at bedtime continue sliding insulin DVT prophylaxis: Xarelto GI prophylaxis: Pepcid Labs and medication were reviewed.. Continue same treatment. Continue with symptomatic treatment. Resume home medication. Monitor labs and vitals. DVT and GI prophylaxis. Further recommendations as per clinical course of the patient Dictation was produced using [employer] dictation software. please excuse any grammatical, word or spelling errors. Objective - Vital Signs Vital signs: Vital Signs Temp 98.3 F 04/06/23 06:58 Pulse 80 04/06/23 11:55 Resp 18 04/06/23 11:05 BP 111/67 04/06/23 06:58 Pulse Ox 94 L 04/06/23 06:58 FiO2 Intake & Output 04/05/23 04/06/23 04/06/23 18:59 06:59 18:59 Intake Total 430 Output Total 1610 850 Balance -1610 -850 430 Intake: Oral 430 Output: Urine 1610 850 Other: Voiding Method Urinal Urinal # Voids 3 - Labs CBC & Chem 7: 04/04/23 05:06 04/05/23 06:27 Labs: Abnormal Lab Results - Last 24 Hours (Table) 04/05/23 04/05/23 04/06/23 Range/Units 16:53 20:51 02:36 POC Glucose (mg/dL) 180 H 114 H 128 H (70-110) mg/dL 04/06/23 04/06/23 Range/Units 05:54 11:16 POC Glucose (mg/dL) 115 H 201 H (70-110) mg/dL Microbiology - Last 24 Hours (Table) 03/31/23 15:00 Anaerobic Culture - Preliminary Foot - Right
[2023-04-06 16:19] LABS: Glucose,Whole Blood 207 mg/dL (70-110)
[2023-04-06] MEDS: RIVAROXABAN 20 MG TAB PO SCH (17:21)
[2023-04-06 20:31] LABS: Glucose,Whole Blood 162 mg/dL (70-110)
[2023-04-06] MEDS: MONTELUKAST 10 MG TAB PO SCH (21:09)
[2023-04-07] MEDS: PIPERACILLIN-TAZOBACTAM 3.375 GM in SODIUM CHLORIDE 0.9% 100 ML IVPB SCH ×2 (01:30→09:32)
[2023-04-07] MEDS: INSULIN ASPART (NovoLOG) 100 UNIT/ML VIAL SQ SCH ×5 (02:56→21:03)
[2023-04-07 02:57] LABS: Glucose,Whole Blood 133 mg/dL (70-110)
[2023-04-07 06:05] LABS: Glucose,Whole Blood 130 mg/dL (70-110)
[2023-04-07] MEDS: MIDODRINE 5 MG TAB PO SCH ×3 (06:29→16:52)
[2023-04-07] MEDS: LEVOTHYROXINE 100 MCG TAB PO SCH (06:29)
[2023-04-07 08:17] LABS: ALT 18 U/L (4-49); AST 24 U/L (17-59); African American GFR (CKD) >90 (>60 ml/min/1.73 sqM); Albumin 2.3 g/dL (3.5-5.0); Albumin/Globulin Ratio 0.7; Alkaline Phosphatase 216 U/L (38-126); Anion Gap 5 mmol/L; Blood Urea Nitrogen 11 mg/dL (9-20); Calcium 7.6 mg/dL (8.4-10.2); Carbon Dioxide 26 mmol/L (22-30); Chloride 105 mmol/L (98-107); Globulin 3.2 g/dL; Glucose 129 mg/dL (74-99); Magnesium 1.7 mg/dL (1.6-2.3); Non-African American GFR(CKD) 80 (>60 ml/min/1.73 sqM); Sodium 136 mmol/L (137-145); Total Bilirubin 0.6 mg/dL (0.2-1.3); Total Protein 5.5 g/dL (6.3-8.2)
[2023-04-07 08:26] LABS: Anisocytosis Slight; Basophils % (A) 0 %; Eosinophils # (A) 0.4 k/uL (0-0.7); Eosinophils % (A) 3 %; HCT 32.9 % (39.0-53.0); HGB 10.4 gm/dL (13.0-17.5); Hypochromasia Slight; Lymphocytes # (A) 0.6 k/uL (1.0-4.8); Lymphocytes % (A) 4 %; MCH 27.2 pg (25.0-35.0); MCHC 31.7 g/dL (31.0-37.0); MCV 85.7 fL (80.0-100.0); Mean Platelet Volume 7.9; Monocytes # (A) 0.6 k/uL (0-1.0); Monocytes % (A) 5 %; Neutrophils # (A) 11.4 k/uL (1.3-7.7); Neutrophils % (A) 88 %; Platelet Count 517 k/uL (150-450); RBC 3.84 m/uL (4.30-5.90); WBC 13.1 k/uL (3.8-10.6)
[2023-04-07 08:36] LABS: Potassium 4.2 mmol/L (3.5-5.1)
[2023-04-07] MEDS: ALBUTEROL NEBULIZED 2.5 MG/3 ML INHALATION SCH ×4 (09:07→20:44)
[2023-04-07] MEDS: SYMBICORT 80-4.5 MCG INHALER INHALATION SCH ×2 (09:07→20:44)
[2023-04-07] MEDS: HYDROcodone/APAP 10-325MG 1 EACH TAB PO PRN (09:30)
[2023-04-07] MEDS: CHOLESTYRAMINE (WITH SUGAR) 4 GM PACKET PO SCH ×2 (09:31→16:52)
[2023-04-07] MEDS: FAMOTIDINE 20 MG/2 ML VIAL IV SCH ×2 (09:31→21:02)
[2023-04-07] MEDS: FUROSEMIDE 10 MG/ML 2 ML VIAL IV SCH ×2 (09:31→21:02)
[2023-04-07] MEDS: NYSTATIN 100,000 UNIT/GM POWD 15 GM TOPICAL SCH ×2 (09:32→17:04)
[2023-04-07 11:12] LABS: Glucose,Whole Blood 265 mg/dL (70-110)
[2023-04-07] MEDS: diphenhydrAMINE 25 MG CAP PO PRN (12:35)
--- NOTE | 2023-04-07 13:02 | P.PN ---
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 Patient is admitted with worsening right leg swelling for the last 2 weeks as he explains to me with mild pain or discomfort in the area.. Also patient presents because of hypoglycemia. Patient was taken several of diabetes medications including metformin, Actos and glipizide 20 mg daily which patient was taken every day however he says that he had low appetite over the last 10 days and he was not eating well. Patient currently complaining of from 3-4/10 pain in his right leg. Patient can walk at home using a cane as he explains to me. Patient is fully awake and oriented and denies any other complaints. No chest pain or dyspnea. No new GI or urinary complaints. No headache dizziness we akness or numbness Patient says that he was taking testosterone at home to prevent him from falling down and other male characters 04/15/2023 Patient clinically looks the same, direct but answers questions appropriately. He denies any specific pain or discomfort. He was admitted with right leg cellulitis and currently is with Zeus wrap and he had loose bowel movement 1: No abdominal pain. His blood pressure on the low side requiring midodrine 10 mg and to make her on Levophed. Thank you again at 0.06 g per KG per minute. Also he is getting normal saline at 50 mL/h. Sugars start picking up today more than 200 therefore was started and Actos. This followed now is D5 normal saline at 50 mL/h. He is on Xarelto Uriostegui history of DVT/PE. 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 Patient currently on Zosyn without edema the case. History of heart were small dose of pressors of Levophed improvement from 0.06 down to 0.03. Also he is on midodrine 10 mg 3 times a day. He is awake alert and comfortable, no new complaint compared to yesterday for the patient's site. Remains on blood thinners Xarelto for his history of right lower extremity DVT and PE. Jewel Hole Gauger has been consulted for bradycardia and echocardiogram showing severe aortic stenosis.Echocardiogram showed ejection fraction of 40-45% He is off IV fluids. Insulin controlled on insulin sliding scale. Glipizide, metformin and Actos on hold. Also Cardizem is on hold. 03/29: Patient seen and evaluated bedside. Patient is alert and oriented 3. Right proximity cellulitis. Patient was treated with IV antibiotics on Zosyn. Noted to have episode of fever infectious disease following 03/30: Patient seen and evaluated bedside. Patient noted to have episode of fever and elevated W BC count overnight. We'll get CT right lower extremity to rule out abscess. Patient complained of diarrhea however stool was negative for C. diff checked while in ICU 03/31: Patient seen and evaluated bedside. Patient does complain of right lower extremity pain. Right foot exam does raise suspicion for abscess. CT right lo wer extremity completed antibiotic escalated to Zosyn and doxycycline. General surgery consulted. Xarelto discontinued in anticipation of incision and drainage 04/01 : Patient seen and evaluated at bedside, patient was seen by vascular surgery yesterday and had incision and drainage of left foot,. General surgery consult was canceled. Antibiotics broadened on Zosyn and Doxy to be continued will follow up on recommendations from infectious disease. says his pain is better controlled after procedure yesterday. Xarelto continues to remain on hold however patient started on therapeutic dose of Lovenox in case he needs more intervention 04/02. Patient seen and examined. Still complaining of pain in right lower extremity, bandage in place, dressing was changed by vascular this morning 04/03. Patient seen and examined. No acute issues overnight. Still has pain in right lower extremity. 04/04. Patient seen and examined. Complaining of scrotal swelling. Still has swelling and pain in his right lower extremity 04/05. Patient seen and examined. Scrotal edema has improved. 04/06. Patient seen and examined. Continues to be afebrile. 04/07. Patient seen and examined. Patient sitting upright in the chair. Complaining of some rash over left side of chest. We will continue to monitor. REVIEW OF SYSTEMS: CONSTITUTIONAL: No fever, no malaise,. CARDIOVASCULAR: No chest pain, no palpitations, no syncope. PULMONARY: No shortness of breath, no cough, GASTROINTESTINAL: No diarrhea, no abdominal pain. NEUROLOGICAL: No headaches, no weakness, PHYSICAL EXAMINATION: GENERAL: The patient is alert and oriented x3, not in any acute distress. Well developed, well nourished. HEENT: Pupils are round and equally reacting to light. EOMI. No scleral icterus. No conjunctival pallor. Normocephalic, atraumatic. No pharyngeal erythema. No thyromegaly. CARDIOVASCULAR: S1 and S2 present. No murmurs, rubs, or gallops. PULMONARY: Chest is clear to auscultation, no wheezing or crackles. ABDOMEN: Soft, nontender, nondistended, normoactive bowel sounds. No palpable organomegaly. MUSCULOSKELETAL: Right lower extremity bandage seen, lymphedema of lower e xtremities bilaterally. Scrotal swelling noticeable NEUROLOGICAL: Gross neurological examination did not reveal any focal deficits. SKIN: No rashes. Assessment and plan Acute right leg cellulitis, with abscess Septic shock Resolved Cardiomyopathy with ejection fraction 40-45% Severe aortic stenosis Diabetes mellitus, with hypoglycemia, present on admission decreased appetite secondary to above Hypertension Hyperlipidemia History of osteoarthritis Hypothyroidism History of DVT/PE on Xarelto prior to this admission Plan: In regard to RLE cellulitis > CT right lower extremity negative for necrotizing fasciitis does show diffuse edema, vascular surgery did I&D on 03/31 . Continue wound care. Continue daptomycin, vascular surgery and ID following. Final plan of antibiotics per ID recommendations In regards to sepsis, sepsis resolved. In regards to history of aortic stenosis patient seen by cardiology, continue current medical treatment In regards to history of pulmonary embolism, continue Xarelto Continue with blood pressure support with Midodrine In regards to diabetes mellitus continue patient on Accu-Cheks before meals and at bedtime continue sliding insulin DVT prophylaxis: Xarelto GI prophylaxis: Pepcid Labs and medication were reviewed.. Continue same treatment. Continue with symptomatic treatment. Resume home medication. Monitor labs and vitals. DVT and GI prophylaxis. Further recommendations as per clinical course of the patient Dictation was produced using [email or web address] dictation software. please excuse any grammatical, word or spelling errors. Objective - Vital Signs Vital signs: Vital Signs Temp 98.6 F 04/07/23 06:49 Pulse 80 04/07/23 12:30 Resp 18 04/07/23 08:00 BP 129/72 04/07/23 06:49 Pulse Ox 95 04/07/23 06:49 FiO2 Intake & Output 04/06/23 04/07/23 04/07/23 18:59 06:59 18:59 Intake Total 730 300 Output Total 950 Balance 730 -950 300 Intake: Oral 730 300 Output: Urine 950 Other: Voiding Method Urinal Urinal # Voids 250 5 - Labs CBC & Chem 7: 04/07/23 07:12 04/07/23 07:12 Labs: Abnormal Lab Results - Last 24 Hours (Table) 04/06/23 04/06/23 04/07/23 Range/Units 16:18 20:30 02:54 WBC (3.8-10.6) k/uL RBC (4.30-5.90) m/uL Hgb (13.0-17.5) gm/dL Hct (39.0-53.0) % RDW (11.5-15.5) % Plt Count (150-450) k/uL Neutrophils # (1.3-7.7) k/uL Lymphocytes # (1.0-4.8) k/uL Sodium (137-145) mmol/L Glucose (74-99) mg/dL POC Glucose (mg/dL) 207 H 162 H 133 H (70-110) mg/dL Calcium (8.4-10.2) mg/dL Alkaline Phosphatase (38-126) U/L Total Protein (6.3-8.2) g/dL Albumin (3.5-5.0) g/dL 04/07/23 04/07/23 04/07/23 Range/Units 06:04 07:12 07:12 WBC 13.1 H (3.8-10.6) k/uL RBC 3.84 L (4.30-5.90) m/uL Hgb 10.4 L (13.0-17.5) gm/dL Hct 32.9 L (39.0-53.0) % RDW 17.0 H (11.5-15.5) % Plt Count 517 H (150-450) k/uL Neutrophils # 11.4 H (1.3-7.7) k/uL Lymphocytes # 0.6 L (1.0-4.8) k/uL Sodium 136 L (137-145) mmol/L Glucose 129 H (74-99) mg/dL POC Glucose (mg/dL) 130 H (70-110) mg/dL Calcium 7.6 L (8.4-10.2) mg/dL Alkaline Phosphatase 216 H (38-126) U/L Total Protein 5.5 L (6.3-8.2) g/dL Albumin 2.3 L (3.5-5.0) g/dL 04/07/23 Range/Units 11:10 WBC (3.8-10.6) k/uL RBC (4.30-5.90) m/uL Hgb (13.0-17.5) gm/dL Hct (39.0-53.0) % RDW (11.5-15.5) % Plt Count (150-450) k/uL Neutrophils # (1.3-7.7) k/uL Lymphocytes # (1.0-4.8) k/uL Sodium (137-145) mmol/L Glucose (74-99) mg/dL POC Glucose (mg/dL) 265 H (70-110) mg/dL Calcium (8.4-10.2) mg/dL Alkaline Phosphatase (38-126) U/L Total Protein (6.3-8.2) g/dL Albumin (3.5-5.0) g/dL Microbiology - Last 24 Hours (Table) 03/31/23 15:00 Gram Stain - Final Foot - Right Tissue Culture - Final Pseudomonas diminuta Methicillin resist S. aureus Coagulase Negative Staph 03/31/23 15:00 Anaerobic Culture - Final Foot - Right
--- NOTE | 2023-04-07 13:27 | P.PN ---
Subjective Patient is seen in follow-up for acute kidney injury. Oral intake is fair. No vomiting or diarrhea. Renal function stable. Admits to good urine output. No active complaints. Objective - Vital Signs Vital signs: Vital Signs Temp 98.6 F 04/07/23 06:49 Pulse 80 04/07/23 12:30 Resp 18 04/07/23 08:00 BP 129/72 04/07/23 06:49 Pulse Ox 95 04/07/23 06:49 FiO2 Intake & Output 04/06/23 04/07/23 04/07/23 18:59 06:59 18:59 Intake Total 730 300 Output Total 950 Balance 730 -950 300 Intake: Oral 730 300 Output: Urine 950 Other: Voiding Method Urinal Urinal # Voids 250 5 - Exam Patient is awake, comfortable, in no acute distress Examination of the heart S1 and S2 Examination of the lungs bilateral breath sounds are heard Abdomen is soft obese nontender Examination lower extremity shows chronic skin changes bilaterally with erythema noted in the right lower extremity. His edema has improved. Both legs are wrapped. [employer] exam grossly intact - Labs CBC & Chem 7: 04/07/23 07:12 04/07/23 07:12 Labs: Abnormal Lab Results - Last 24 Hours (Table) 04/06/23 04/06/23 04/07/23 Range/Units 16:18 20:30 02:54 WBC (3.8-10.6) k/uL RBC (4.30-5.90) m/uL Hgb (13.0-17.5) gm/dL Hct (39.0-53.0) % RDW (11.5-15.5) % Plt Count (150-450) k/uL Neutrophils # (1.3-7.7) k/uL Lymphocytes # (1.0-4.8) k/uL Sodium (137-145) mmol/L Glucose (74-99) mg/dL POC Glucose (mg/dL) 207 H 162 H 133 H (70-110) mg/dL Calcium (8.4-10.2) mg/dL Alkaline Phosphatase (38-126) U/L Total Protein (6.3-8.2) g/dL Albumin (3.5-5.0) g/dL 04/07/23 04/07/23 04/07/23 Range/Units 06:04 07:12 07:12 WBC 13.1 H (3.8-10.6) k/uL RBC 3.84 L (4.30-5.90) m/uL Hgb 10.4 L (13.0-17.5) gm/dL Hct 32.9 L (39.0-53.0) % RDW 17.0 H (11.5-15.5) % Plt Count 517 H (150-450) k/uL Neutrophils # 11.4 H (1.3-7.7) k/uL Lymphocytes # 0.6 L (1.0-4.8) k/uL Sodium 136 L (137-145) mmol/L Glucose 129 H (74-99) mg/dL POC Glucose (mg/dL) 130 H (70-110) mg/dL Calcium 7.6 L (8.4-10.2) mg/dL Alkaline Phosphatase 216 H (38-126) U/L Total Protein 5.5 L (6.3-8.2) g/dL Albumin 2.3 L (3.5-5.0) g/dL 04/07/23 Range/Units 11:10 WBC (3.8-10.6) k/uL RBC (4.30-5.90) m/uL Hgb (13.0-17.5) gm/dL Hct (39.0-53.0) % RDW (11.5-15.5) % Plt Count (150-450) k/uL Neutrophils # (1.3-7.7) k/uL Lymphocytes # (1.0-4.8) k/uL Sodium (137-145) mmol/L Glucose (74-99) mg/dL POC Glucose (mg/dL) 265 H (70-110) mg/dL Calcium (8.4-10.2) mg/dL Alkaline Phosphatase (38-126) U/L Total Protein (6.3-8.2) g/dL Albumin (3.5-5.0) g/dL Microbiology - Last 24 Hours (Table) 03/31/23 15:00 Gram Stain - Final Foot - Right Tissue Culture - Final Pseudomonas diminuta Methicillin resist S. aureus Coagulase Negative Staph 03/31/23 15:00 Anaerobic Culture - Final Foot - Right Assessment and Plan Assessment: 1. Acute kidney injury ATN nonoliguric secondary to hypotension and underlying infection. Improving. Status post IV fluids 2. Hyponatremia secondary to hypotonic fluid, improved 3. Persistent hypoglycemia, improved, status post D10.. 4. Bilateral lower extremity cellulitis, worse on the right leg, maintained on antibiotics. Wound culture positive for gram-negative bacilli 5. Right lower extremity DVT, chronic with history of PE maintained on xarelto 6. Bilateral lower extremity edema, currently maintained on IV Lasix. Check UA Plan: Continue with current dose of Lasix Continue antibiotics as per ID Check UA
[2023-04-07 16:42] LABS: Glucose,Whole Blood 184 mg/dL (70-110)
[2023-04-07] MEDS: RIVAROXABAN 20 MG TAB PO SCH (17:05)
[2023-04-07 20:57] LABS: Glucose,Whole Blood 204 mg/dL (70-110)
[2023-04-07] MEDS: MONTELUKAST 10 MG TAB PO SCH (21:03)
[2023-04-08] MEDS: NYSTATIN 100,000 UNIT/GM POWD 15 GM TOPICAL SCH ×3 (01:01→16:55)
[2023-04-08] MEDS: HYDROcodone/APAP 10-325MG 1 EACH TAB PO PRN ×2 (01:16→12:56)
[2023-04-08 02:21] LABS: Glucose,Whole Blood 155 mg/dL (70-110)
[2023-04-08] MEDS: INSULIN ASPART (NovoLOG) 100 UNIT/ML VIAL SQ SCH ×5 (02:23→21:05)
[2023-04-08 05:43] LABS: Glucose,Whole Blood 158 mg/dL (70-110)
[2023-04-08] MEDS: LEVOTHYROXINE 100 MCG TAB PO SCH (07:00)
[2023-04-08] MEDS: MIDODRINE 5 MG TAB PO SCH ×4 (07:01→16:54)
[2023-04-08] MEDS: SYMBICORT 80-4.5 MCG INHALER INHALATION SCH ×2 (07:29→20:21)
[2023-04-08] MEDS: ALBUTEROL NEBULIZED 2.5 MG/3 ML INHALATION SCH ×4 (07:29→20:12)
[2023-04-08] MEDS: CHOLESTYRAMINE (WITH SUGAR) 4 GM PACKET PO SCH ×2 (09:57→16:43)
[2023-04-08] MEDS: FUROSEMIDE 10 MG/ML 2 ML VIAL IV SCH ×2 (10:04→21:04)
[2023-04-08] MEDS: FAMOTIDINE 20 MG/2 ML VIAL IV SCH ×2 (10:04→21:04)
[2023-04-08] MEDS: diphenhydrAMINE 25 MG CAP PO PRN (10:04)
--- NOTE | 2023-04-08 10:12 | P.PN ---
Subjective Progress Note Date: 04/06/23 Principal diagnosis: Right lower extremity wound and cellulitis Patient is a 77-year-old male with a past medical history negative for hypertension hyperlipidemia diabetes mellitus PE patient also have a lower extremity venous stasis ulcer and history of recurrent cellulitis patient presenting to the hospital concerning for right leg infection patient noticed to have increasing redness to discomfort and drainage to the right lower extremity, admitted to the ICU because of hypoglycemia On today's evaluation that is 04/06/2023 the patient remains to be afebrile, pat ient is breathing comfortably on room air patient denies having any chest pain or shortness with a cough no nausea vomiting abdominal pain or diarrhea pain to the right foot is currently controlled. No CBC or BMP was done today right foot cultures currently showing MRSA and gram-negative with ID sensitivities pending Objective - Vital Signs Vital signs: Vital Signs Temp 98.3 F 04/06/23 06:58 Pulse 80 04/06/23 11:55 Resp 18 04/06/23 11:05 BP 111/67 04/06/23 06:58 Pulse Ox 94 L 04/06/23 06:58 FiO2 Intake & Output 04/05/23 04/06/23 04/06/23 18:59 06:59 18:59 Intake Total 180 Output Total 1610 850 Balance -1610 -850 180 Intake: Oral 180 Output: Urine 1610 850 Other: Voiding Method Urinal Urinal # Voids 3 - Exam GENERAL DESCRIPTION: An elderly male lying in bed in no distress RESPIRATORY SYSTEM: Unlabored breathing , decreased breath sounds at bases HEART: S1 S2 regular rate and rhythm , ABDOMEN: Soft , no tenderness EXTREMITIES: Right foot dorsum wound is currently dressed with minimal blood stained drainage on the dressing - Labs CBC & Chem 7: 04/07/23 07:12 04/07/23 07:12 Labs: Abnormal Lab Results - Last 24 Hours (Table) 04/05/23 04/05/23 04/06/23 Range/Units 16:53 20:51 02:36 POC Glucose (mg/dL) 180 H 114 H 128 H (70-110) mg/dL 04/06/23 04/06/23 Range/Units 05:54 11:16 POC Glucose (mg/dL) 115 H 201 H (70-110) mg/dL Microbiology - Last 24 Hours (Table) 03/31/23 15:00 Anaerobic Culture - Preliminary Foot - Right 03/31/23 15:00 Gram Stain - Preliminary Foot - Right Tissue Culture - Preliminary Gram Neg Bacilli Methicillin resist S. aureus Coagulase Negative Staph Assessment and Plan (1) Cellulitis of right leg Current Visit: Yes Status: Acute Code(s): L03.115 - CELLULITIS OF RIGHT LOWER LIMB SNOMED Code(s): 532772457 (2) Chronic cutaneous venous stasis ulcer Current Visit: No Status: Acute Code(s): I83.009 - VARICOSE VEINS OF UNSP LOWER EXTREMITY W ULCER OF UNSP SITE; L97.909 - NON-PRS CHRONIC ULC UNSP PRT OF UNSP LOW LEG W UNSP SEVERITY SNOMED Code(s): 52150377 Plan: 1patient was in the hospital with increasing pain swelling redness of the right lower extremity in this patient who do have a history of venous stasis ulcer to right lower extremity and concerning for cellulitis likely from gram-positive skin noe 2local wound care with Aquacel silver dressing and mild compression dressing. 3-Patient noticed to have swelling and skin necrosis on the dorsum aspect of the right foot, has been evaluated Vascular surgery status post debridement and deep cultures which are currently growing gram-negative bacilli 4-With local cultures predominantly growing gram-negative bacilli as well as MRSA. , ID and sensitivities on the gram-negative is still pending. 5the patient will continue on Zosyn and daptomycin discharged biotic on the basis of ID and sensitivity of the gram-negative continue local wound care per surgery Dictation was produced using [employer] dictation software. please excuse any grammatical, word or spelling errors. Time with Patient: Less than 30
--- NOTE | 2023-04-08 10:14 | P.PN ---
Subjective Progress Note Date: 04/07/23 Principal diagnosis: Right lower extremity wound and cellulitis Patient is a 77-year-old male with a past medical history negative for hypertension hyperlipidemia diabetes mellitus PE patient also have a lower extremity venous stasis ulcer and history of recurrent cellulitis patient presenting to the hospital concerning for right leg infection patient noticed to have increasing redness to discomfort and drainage to the right lower extremity, admitted to the ICU because of hypoglycemia On today's evaluation that is 04/07/2023 the patient remains to be afebrile saud ent is breathing comfortably on room air denies any chest pain shortness of breath or cough no nausea vomiting pain to the right foot is currently controlled and denies having any diarrhea. The patient white count is down to 13.1 hemoglobin 0.93, local culture positive for MRSA and gram-negative which has been finalized as Pseudomonas diminuta. Objective - Vital Signs Vital signs: Vital Signs Temp 98.3 F 04/07/23 13:31 Pulse 80 04/07/23 15:45 Resp 18 04/07/23 13:31 BP 139/58 04/07/23 13:31 Pulse Ox 96 04/07/23 13:31 FiO2 Intake & Output 04/06/23 04/07/23 04/07/23 18:59 06:59 18:59 Intake Total 730 300 Output Total 950 Balance 730 -950 300 Intake: Oral 730 300 Output: Urine 950 Other: Voiding Method Urinal Urinal # Voids 250 5 - Exam GENERAL DESCRIPTION: An elderly male lying in bed in no distress RESPIRATORY SYSTEM: Unlabored breathing , decreased breath sounds at bases HEART: S1 S2 regular rate and rhythm , ABDOMEN: Soft , no tenderness EXTREMITIES: Right foot dorsum wound is currently dressed with minimal blood stained drainage on the dressing - Labs CBC & Chem 7: 04/07/23 07:12 04/07/23 07:12 Labs: Abnormal Lab Results - Last 24 Hours (Table) 04/06/23 04/06/23 04/07/23 Range/Units 16:18 20:30 02:54 WBC (3.8-10.6) k/uL RBC (4.30-5.90) m/uL Hgb (13.0-17.5) gm/dL Hct (39.0-53.0) % RDW (11.5-15.5) % Plt Count (150-450) k/uL Neutrophils # (1.3-7.7) k/uL Lymphocytes # (1.0-4.8) k/uL Sodium (137-145) mmol/L Glucose (74-99) mg/dL POC Glucose (mg/dL) 207 H 162 H 133 H (70-110) mg/dL Calcium (8.4-10.2) mg/dL Alkaline Phosphatase (38-126) U/L Total Protein (6.3-8.2) g/dL Albumin (3.5-5.0) g/dL 04/07/23 04/07/23 04/07/23 Range/Units 06:04 07:12 07:12 WBC 13.1 H (3.8-10.6) k/uL RBC 3.84 L (4.30-5.90) m/uL Hgb 10.4 L (13.0-17.5) gm/dL Hct 32.9 L (39.0-53.0) % RDW 17.0 H (11.5-15.5) % Plt Count 517 H (150-450) k/uL Neutrophils # 11.4 H (1.3-7.7) k/uL Lymphocytes # 0.6 L (1.0-4.8) k/uL Sodium 136 L (137-145) mmol/L Glucose 129 H (74-99) mg/dL POC Glucose (mg/dL) 130 H (70-110) mg/dL Calcium 7.6 L (8.4-10.2) mg/dL Alkaline Phosphatase 216 H (38-126) U/L Total Protein 5.5 L (6.3-8.2) g/dL Albumin 2.3 L (3.5-5.0) g/dL 04/07/23 Range/Units 11:10 WBC (3.8-10.6) k/uL RBC (4.30-5.90) m/uL Hgb (13.0-17.5) gm/dL Hct (39.0-53.0) % RDW (11.5-15.5) % Plt Count (150-450) k/uL Neutrophils # (1.3-7.7) k/uL Lymphocytes # (1.0-4.8) k/uL Sodium (137-145) mmol/L Glucose (74-99) mg/dL POC Glucose (mg/dL) 265 H (70-110) mg/dL Calcium (8.4-10.2) mg/dL Alkaline Phosphatase (38-126) U/L Total Protein (6.3-8.2) g/dL Albumin (3.5-5.0) g/dL Microbiology - Last 24 Hours (Table) 03/31/23 15:00 Gram Stain - Final Foot - Right Tissue Culture - Final Pseudomonas diminuta Methicillin resist S. aureus Coagulase Negative Staph 03/31/23 15:00 Anaerobic Culture - Final Foot - Right Assessment and Plan (1) Cellulitis of right leg Current Visit: Yes Status: Acute Code(s): L03.115 - CELLULITIS OF RIGHT LOWER LIMB SNOMED Code(s): 466018599 (2) Chronic cutaneous venous stasis ulcer Current Visit: No Status: Acute Code(s): I83.009 - VARICOSE VEINS OF UNSP LOWER EXTREMITY W ULCER OF UNSP SITE; L97.909 - NON-PRS CHRONIC ULC UNSP PRT OF UNSP LOW LEG W UNSP SEVERITY SNOMED Code(s): 61117618 Plan: 1patient was in the hospital with increasing pain swelling redness of the right lower extremity in this patient who do have a history of venous stasis ulcer to right lower extremity and concerning for cellulitis likely from gram-positive skin noe 2local wound care with Aquacel silver dressing and mild compression dressing. 3-Patient noticed to have swelling and skin necrosis on the dorsum aspect of the right foot, has been evaluated Vascular surgery status post debridement and deep cultures which are currently growing gram-negative bacilli 4-With local cultures predominantly growing Pseudomonas diminuta well as MRSA. 5patient is currently being treated the daptomycin and Zosyn to continue however the patient will be switched over to vancomycin and cefepime on discharge for 2 weeks as long as okay to use vancomycin per nephrology on discharge Dictation was produced using [employer] dictation software. please excuse any grammatical, word or spelling errors. Time with Patient: Less than 30
[2023-04-08 10:24] LABS: Appearance,Urine Clear (Clear); Bacteria,Urine Rare /hpf; Bilirubin,Urine Negative (Negative); Blood,Urine Negative (Negative); Color,Urine Yellow; Glucose,Urine (UA) Negative (Negative); Ketones,Urine Negative (Negative); Leukocyte Esterase,Urine Small (Negative); Mucus,Urine Rare /hpf; Nitrite,Urine Negative (Negative); PH, Urine 5.5 (5.0-8.0); Protein,Urine Negative (Negative); RBC,Urine 2 /hpf (0-5); Specific Gravity,Urine 1.015 (1.001-1.035); Squamous Epithelial Cell,Urine 1 /hpf (0-4); Urobilinogen,Urine <2.0 mg/dL (<2.0); WBC,Urine 2 /hpf (0-5)
[2023-04-08 10:40] LABS: Anisocytosis Slight; HGB 10.7 gm/dL (13.0-17.5); Hypochromasia Slight; MCH 27.2 pg (25.0-35.0); MCHC 31.6 g/dL (31.0-37.0); Mean Platelet Volume 7.7; Platelet Count 484 k/uL (150-450); RBC 3.95 m/uL (4.30-5.90); RDW 16.9 % (11.5-15.5); WBC 13.2 k/uL (3.8-10.6)
[2023-04-08 10:43] LABS: ALT 21 U/L (4-49); AST 34 U/L (17-59); African American GFR (CKD) 86 (>60 ml/min/1.73 sqM); Albumin 2.4 g/dL (3.5-5.0); Albumin/Globulin Ratio 0.7; Alkaline Phosphatase 236 U/L (38-126); Anion Gap 7 mmol/L; Blood Urea Nitrogen 12 mg/dL (9-20); Calcium 7.8 mg/dL (8.4-10.2); Carbon Dioxide 26 mmol/L (22-30); Chloride 103 mmol/L (98-107); Globulin 3.4 g/dL; Glucose 153 mg/dL (74-99); Non-African American GFR(CKD) 74 (>60 ml/min/1.73 sqM); Potassium 4.2 mmol/L (3.5-5.1); Sodium 136 mmol/L (137-145); Total Bilirubin 0.6 mg/dL (0.2-1.3); Total Protein 5.8 g/dL (6.3-8.2)
[2023-04-08 11:45] LABS: Glucose,Whole Blood 166 mg/dL (70-110)
--- NOTE | 2023-04-08 11:55 | P.PN ---
Subjective Patient is seen in follow-up for acute kidney injury. Oral intake is fair. No vomiting or diarrhea. Renal function stable. Admits to good urine output. Complaining of rash with itching on the trunk and arms Objective - Vital Signs Vital signs: Vital Signs Temp 98.2 F 04/08/23 07:48 Pulse 88 04/08/23 11:26 Resp 18 04/08/23 11:08 BP 118/78 04/08/23 07:48 Pulse Ox 95 04/08/23 07:48 FiO2 Intake & Output 04/07/23 04/08/23 04/08/23 18:59 06:59 18:59 Intake Total 300 Output Total 450 300 Balance -150 -300 Intake: Oral 300 Output: Urine 450 300 Other: Voiding Method Urinal Urinal # Voids 1 - Exam Patient is awake, comfortable, in no acute distress Examination of the heart S1 and S2 Examination of the lungs bilateral breath sounds are heard Abdomen is soft obese nontender maculopapular rash noted on the upper chest Examination lower extremity shows chronic skin changes bilaterally with erythema noted in the right lower extremity. His edema has improved. Both legs are wrapped. 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 - Labs CBC & Chem 7: 04/08/23 09:24 04/08/23 09:24 Labs: Abnormal Lab Results - Last 24 Hours (Table) 04/07/23 04/07/23 04/08/23 Range/Units 16:40 20:56 02:19 WBC (3.8-10.6) k/uL RBC (4.30-5.90) m/uL Hgb (13.0-17.5) gm/dL Hct (39.0-53.0) % RDW (11.5-15.5) % Plt Count (150-450) k/uL Sodium (137-145) mmol/L Glucose (74-99) mg/dL POC Glucose (mg/dL) 184 H 204 H 155 H (70-110) mg/dL Calcium (8.4-10.2) mg/dL Alkaline Phosphatase (38-126) U/L Total Protein (6.3-8.2) g/dL Albumin (3.5-5.0) g/dL Ur Leukocyte Esterase (Negative) Urine Bacteria (None) /hpf Urine Mucus (None) /hpf 04/08/23 04/08/23 04/08/23 Range/Units 05:41 07:51 09:24 WBC 13.2 H (3.8-10.6) k/uL RBC 3.95 L (4.30-5.90) m/uL Hgb 10.7 L (13.0-17.5) gm/dL Hct 34.0 L (39.0-53.0) % RDW 16.9 H (11.5-15.5) % Plt Count 484 H (150-450) k/uL Sodium (137-145) mmol/L Glucose (74-99) mg/dL POC Glucose (mg/dL) 158 H (70-110) mg/dL Calcium (8.4-10.2) mg/dL Alkaline Phosphatase (38-126) U/L Total Protein (6.3-8.2) g/dL Albumin (3.5-5.0) g/dL Ur Leukocyte Esterase Small H (Negative) Urine Bacteria Rare H (None) /hpf Urine Mucus Rare H (None) /hpf 04/08/23 04/08/23 Range/Units 09:24 11:43 WBC (3.8-10.6) k/uL RBC (4.30-5.90) m/uL Hgb (13.0-17.5) gm/dL Hct (39.0-53.0) % RDW (11.5-15.5) % Plt Count (150-450) k/uL Sodium 136 L (137-145) mmol/L Glucose 153 H (74-99) mg/dL POC Glucose (mg/dL) 166 H (70-110) mg/dL Calcium 7.8 L (8.4-10.2) mg/dL Alkaline Phosphatase 236 H (38-126) U/L Total Protein 5.8 L (6.3-8.2) g/dL Albumin 2.4 L (3.5-5.0) g/dL Ur Leukocyte Esterase (Negative) Urine Bacteria (None) /hpf Urine Mucus (None) /hpf Microbiology - Last 24 Hours (Table) 03/31/23 15:00 Gram Stain - Final Foot - Right Tissue Culture - Final Pseudomonas diminuta Methicillin resist S. aureus Coagulase Negative Staph Assessment and Plan Assessment: 1. Acute kidney injury ATN nonoliguric secondary to hypotension and underlying infection. Improving. Status post IV fluids 2. Hyponatremia secondary to hypotonic fluid, improved 3. Persistent hypoglycemia, improved, status post D10.. 4. Bilateral lower extremity cellulitis, worse on the right leg, maintained on antibiotics. Wound culture positive for gram-negative bacilli 5. Right lower extremity DVT, chronic with history of PE maintained on xarelto 6. Bilateral lower extremity edema, currently maintained on IV Lasix. UA shows no evidence of proteinuria 7. Rash appears to be ALLERGIC. Maintained on Benadryl Plan: Continue with current dose of Lasix Continue antibiotics as per ID Decrease midodrine
--- NOTE | 2023-04-08 13:04 | P.PN ---
Subjective Progress Note Date: 04/08/23 77 years old male with multiple medical problems as below, he has history of DVT/PE on a blood thinner, currently on xarelto, diabetes mellitus, hypertension, hyperlipidemia, osteoarthritis, hyperthyroidism. Patient is admitted with worsening right leg swelling for the last 2 weeks as he explains to me with mild pain or discomfort in the area.. Also patient presents because of hypoglycemia. Patient was taken several of diabetes medications including metformin, Actos and glipizide 20 mg daily which patient was taken every day however he says that he had low appetite over the last 10 days and he was not eating well. Patient currently complaining of from 3-4/10 pain in his right leg. Patient can walk at home using a cane as he explains to me. Patient is fully awake and oriented and denies any other complaints. No chest pain or dyspnea. No new GI or urinary complaints. No headache dizziness we akness or numbness Patient says that he was taking testosterone at home to prevent him from falling down and other male characters 04/15/2023 Patient clinically looks the same, direct but answers questions appropriately. He denies any specific pain or discomfort. He was admitted with right leg cellulitis and currently is with Zeus wrap and he had loose bowel movement 1: No abdominal pain. His blood pressure on the low side requiring midodrine 10 mg and to make her on Levophed. Thank you again at 0.06 g per KG per minute. Also he is getting normal saline at 50 mL/h. Sugars start picking up today more than 200 therefore was started and Actos. This followed now is D5 normal saline at 50 mL/h. He is on Xarelto Uriostegui history of DVT/PE. 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 Patient currently on Zosyn without edema the case. History of heart were small dose of pressors of Levophed improvement from 0.06 down to 0.03. Also he is on midodrine 10 mg 3 times a day. He is awake alert and comfortable, no new complaint compared to yesterday for the patient's site. Remains on blood thinners Xarelto for his history of right lower extremity DVT and PE. Proposal Manager Writer has been consulted for bradycardia and echocardiogram showing severe aortic stenosis.Echocardiogram showed ejection fraction of 40-45% He is off IV fluids. Insulin controlled on insulin sliding scale. Glipizide, metformin and Actos on hold. Also Cardizem is on hold. 03/29: Patient seen and evaluated bedside. Patient is alert and oriented 3. Right proximity cellulitis. Patient was treated with IV antibiotics on Zosyn. Noted to have episode of fever infectious disease following 03/30: Patient seen and evaluated bedside. Patient noted to have episode of fever and elevated W BC count overnight. We'll get CT right lower extremity to rule out abscess. Patient complained of diarrhea however stool was negative for C. diff checked while in ICU 03/31: Patient seen and evaluated bedside. Patient does complain of right lower extremity pain. Right foot exam does raise suspicion for abscess. CT right lo wer extremity completed antibiotic escalated to Zosyn and doxycycline. General surgery consulted. Xarelto discontinued in anticipation of incision and drainage 04/01 : Patient seen and evaluated at bedside, patient was seen by vascular surgery yesterday and had incision and drainage of left foot,. General surgery consult was canceled. Antibiotics broadened on Zosyn and Doxy to be continued will follow up on recommendations from infectious disease. says his pain is better controlled after procedure yesterday. Xarelto continues to remain on hold however patient started on therapeutic dose of Lovenox in case he needs more intervention 04/02. Patient seen and examined. Still complaining of pain in right lower extremity, bandage in place, dressing was changed by vascular this morning 04/03. Patient seen and examined. No acute issues overnight. Still has pain in right lower extremity. 04/04. Patient seen and examined. Complaining of scrotal swelling. Still has swelling and pain in his right lower extremity 04/05. Patient seen and examined. Scrotal edema has improved. 04/06. Patient seen and examined. Continues to be afebrile. 04/07. Patient seen and examined. Patient sitting upright in the chair. Complaining of some rash over left side of chest. We will continue to monitor. 04/08. Patient seen and examined. Rash has improved REVIEW OF SYSTEMS: CONSTITUTIONAL: No fever, no malaise,. CARDIOVASCULAR: No chest pain, no palpitations, no syncope. PULMONARY: No shortness of breath, no cough, GASTROINTESTINAL: No diarrhea, no abdominal pain. NEUROLOGICAL: No headaches, no weakness, PHYSICAL EXAMINATION: GENERAL: The patient is alert and oriented x3, not in any acute distress. Well developed, well nourished. HEENT: Pupils are round and equally reacting to light. EOMI. No scleral icterus. No conjunctival pallor. Normocephalic, atraumatic. No pharyngeal erythema. No thyromegaly. CARDIOVASCULAR: S1 and S2 present. No murmurs, rubs, or gallops. PULMONARY: Chest is clear to auscultation, no wheezing or crackles. ABDOMEN: Soft, nontender, nondistended, normoactive bowel sounds. No palpable organomegaly. MUSCULOSKELETAL: Right lower extremity bandage seen, lymphedema of lower extremities bilaterally. Scrotal swelling noticeable NEUROLOGICAL: Gross neurological examination did not reveal any focal deficits. SKIN: No rashes. Assessment and plan Acute right leg cellulitis, with abscess Septic shock Resolved Cardiomyopathy with ejection fraction 40-45% Severe aortic stenosis Diabetes mellitus, with hypoglycemia, present on admission decreased appetite secondary to above Hypertension Hyperlipidemia History of osteoarthritis Hypothyroidism History of DVT/PE on Xarelto prior to this admission Plan: In regard to RLE cellulitis > CT right lower extremity negative for necrotizing fasciitis does show diffuse edema, vascular surgery did I&D on 03/31 . Continue wound care. Continue daptomycin, vascular surgery and ID following. Final plan of antibiotics per ID recommendations In regards to sepsis, sepsis resolved. In regards to history of aortic stenosis patient seen by cardiology, continue current medical treatment In regards to history of pulmonary embolism, continue Xarelto Continue with blood pressure support with Midodrine In regards to diabetes mellitus continue patient on Accu-Cheks before meals and at bedtime continue sliding insulin DVT prophylaxis: Xarelto GI prophylaxis: Pepcid Labs and medication were reviewed.. Continue same treatment. Continue with symptomatic treatment. Resume home medication. Monitor labs and vitals. DVT and GI prophylaxis. Further recommendations as per clinical course of the pat ient Dictation was produced using [employer] dictation software. please excuse any grammatical, word or spelling errors. Objective - Vital Signs Vital signs: Vital Signs Temp 98.2 F 04/08/23 07:48 Pulse 83 04/08/23 07:48 Resp 18 04/08/23 07:48 BP 118/78 04/08/23 07:48 Pulse Ox 95 04/08/23 07:48 FiO2 Intake & Output 04/07/23 04/08/23 04/08/23 18:59 06:59 18:59 Intake Total 300 Output Total 450 300 Balance -150 -300 Intake: Oral 300 Output: Urine 450 300 Other: Voiding Method Urinal # Voids 1 - Labs CBC & Chem 7: 04/08/23 09:24 04/08/23 09:24 Labs: Abnormal Lab Results - Last 24 Hours (Table) 04/07/23 04/07/23 04/07/23 Range/Units 11:10 16:40 20:56 POC Glucose (mg/dL) 265 H 184 H 204 H (70-110) mg/dL Ur Leukocyte Esterase (Negative) Urine Bacteria (None) /hpf Urine Mucus (None) /hpf 04/08/23 04/08/23 04/08/23 Range/Units 02:19 05:41 07:51 POC Glucose (mg/dL) 155 H 158 H (70-110) mg/dL Ur Leukocyte Esterase Small H (Negative) Urine Bacteria Rare H (None) /hpf Urine Mucus Rare H (None) /hpf Microbiology - Last 24 Hours (Table) 03/31/23 15:00 Gram Stain - Final Foot - Right Tissue Culture - Final Pseudomonas diminuta Methicillin resist S. aureus Coagulase Negative Staph
--- NOTE | 2023-04-08 16:38 | P.PN ---
Subjective Progress Note Date: 04/08/23 Principal diagnosis: Right lower extremity wound and cellulitis Patient is a 77-year-old male with a past medical history negative for hypertension hyperlipidemia diabetes mellitus PE patient also have a lower extremity venous stasis ulcer and history of recurrent cellulitis patient presenting to the hospital concerning for right leg infection patient noticed to have increasing redness to discomfort and drainage to the right lower extremity, admitted to the ICU because of hypoglycemia On today's evaluation that is 04/08/2023 the patient continues to be afebrile, t he patient is breathing comfortably on room air, the patient denies any chest pain shortness of breath or cough no nausea vomiting pain to the right foot is currently controlled and denies having any diarrhea. The patient white count is 13.2 today creatinine is 0.99, local culture positive for MRSA and Pseudomonas diminuta. Objective - Vital Signs Vital signs: Vital Signs Temp 98.1 F 04/08/23 14:43 Pulse 88 04/08/23 16:11 Resp 19 04/08/23 14:43 BP 118/72 04/08/23 14:43 Pulse Ox 95 04/08/23 14:43 FiO2 Intake & Output 04/07/23 04/08/23 04/08/23 18:59 06:59 18:59 Intake Total 300 200 Output Total 450 300 400 Balance -150 -300 -200 Intake: Oral 300 200 Output: Urine 450 300 400 Other: Voiding Method Urinal Urinal # Voids 1 - Exam GENERAL DESCRIPTION: An elderly male lying in bed in no distress RESPIRATORY SYSTEM: Unlabored breathing , decreased breath sounds at bases HEART: S1 S2 regular rate and rhythm , ABDOMEN: Soft , no tenderness EXTREMITIES: Right foot dorsum wound is deep with a bone palpable at the base of the wound and did have significant slough tissue surrounding redness has improved - Labs CBC & Chem 7: 04/08/23 09:24 04/08/23 09:24 Labs: Abnormal Lab Results - Last 24 Hours (Table) 04/07/23 04/07/23 04/08/23 Range/Units 16:40 20:56 02:19 WBC (3.8-10.6) k/uL RBC (4.30-5.90) m/uL Hgb (13.0-17.5) gm/dL Hct (39.0-53.0) % RDW (11.5-15.5) % Plt Count (150-450) k/uL Sodium (137-145) mmol/L Glucose (74-99) mg/dL POC Glucose (mg/dL) 184 H 204 H 155 H (70-110) mg/dL Calcium (8.4-10.2) mg/dL Alkaline Phosphatase (38-126) U/L Total Protein (6.3-8.2) g/dL Albumin (3.5-5.0) g/dL Ur Leukocyte Esterase (Negative) Urine Bacteria (None) /hpf Urine Mucus (None) /hpf 04/08/23 04/08/23 04/08/23 Range/Units 05:41 07:51 09:24 WBC 13.2 H (3.8-10.6) k/uL RBC 3.95 L (4.30-5.90) m/uL Hgb 10.7 L (13.0-17.5) gm/dL Hct 34.0 L (39.0-53.0) % RDW 16.9 H (11.5-15.5) % Plt Count 484 H (150-450) k/uL Sodium (137-145) mmol/L Glucose (74-99) mg/dL POC Glucose (mg/dL) 158 H (70-110) mg/dL Calcium (8.4-10.2) mg/dL Alkaline Phosphatase (38-126) U/L Total Protein (6.3-8.2) g/dL Albumin (3.5-5.0) g/dL Ur Leukocyte Esterase Small H (Negative) Urine Bacteria Rare H (None) /hpf Urine Mucus Rare H (None) /hpf 04/08/23 04/08/23 Range/Units 09:24 11:43 WBC (3.8-10.6) k/uL RBC (4.30-5.90) m/uL Hgb (13.0-17.5) gm/dL Hct (39.0-53.0) % RDW (11.5-15.5) % Plt Count (150-450) k/uL Sodium 136 L (137-145) mmol/L Glucose 153 H (74-99) mg/dL POC Glucose (mg/dL) 166 H (70-110) mg/dL Calcium 7.8 L (8.4-10.2) mg/dL Alkaline Phosphatase 236 H (38-126) U/L Total Protein 5.8 L (6.3-8.2) g/dL Albumin 2.4 L (3.5-5.0) g/dL Ur Leukocyte Esterase (Negative) Urine Bacteria (None) /hpf Urine Mucus (None) /hpf Assessment and Plan (1) Cellulitis of right leg Current Visit: Yes Status: Acute Code(s): L03.115 - CELLULITIS OF RIGHT LOWER LIMB SNOMED Code(s): 907463617 (2) Chronic cutaneous venous stasis ulcer Current Visit: No Status: Acute Code(s): I83.009 - VARICOSE VEINS OF UNSP LOWER EXTREMITY W ULCER OF UNSP SITE; L97.909 - NON-PRS CHRONIC ULC UNSP PRT OF UNSP LOW LEG W UNSP SEVERITY SNOMED Code(s): 21785044 Plan: 1patient was in the hospital with increasing pain swelling redness of the right lower extremity in this patient who do have a history of venous stasis ulcer to right lower extremity and concerning for cellulitis likely from gram-positive skin noe 2local wound care with Aquacel silver dressing and mild compression dressing. 3-Patient noticed to have swelling and skin necrosis on the dorsum aspect of the right foot, has been evaluated Vascular surgery status post debridement and deep cultures which are currently growing gram-negative bacilli 4-With local cultures predominantly growing Pseudomonas diminuta well as MRSA. 5patient to continue with daptomycin and Zosyn , patient can be switched over to vancomycin and cefepime on discharge for 5 weeks as there is concern for possible deep infection such as Osteomyelitis as long as okay to use vancomycin per nephrology on discharge, local wound care will be switched over to medahoney followed by moist dressing changes daily discussed with the nursing staff Dictation was produced using [employer] dictation software. please excuse any grammatical, word or spelling errors. Time with Patient: Less than 30
[2023-04-08 16:40] LABS: Glucose,Whole Blood 187 mg/dL (70-110)
[2023-04-08] MEDS: RIVAROXABAN 20 MG TAB PO SCH (16:55)
[2023-04-08 20:42] LABS: Glucose,Whole Blood 164 mg/dL (70-110)
[2023-04-08] MEDS: MONTELUKAST 10 MG TAB PO SCH (21:05)
[2023-04-09] MEDS: HYDROcodone/APAP 10-325MG 1 EACH TAB PO PRN ×2 (01:51→11:46)
[2023-04-09 01:58] LABS: Glucose,Whole Blood 161 mg/dL (70-110)
[2023-04-09] MEDS: INSULIN ASPART (NovoLOG) 100 UNIT/ML VIAL SQ SCH ×3 (02:00→12:04)
[2023-04-09 05:40] LABS: Glucose,Whole Blood 135 mg/dL (70-110)
[2023-04-09] MEDS: LEVOTHYROXINE 100 MCG TAB PO SCH (06:28)
[2023-04-09] MEDS: MIDODRINE 5 MG TAB PO SCH ×2 (06:28→12:04)
[2023-04-09] MEDS: NYSTATIN 100,000 UNIT/GM POWD 15 GM TOPICAL SCH ×2 (06:29→09:31)
[2023-04-09 08:23] LABS: Basophils # (A) 0.06 X 10*3/uL (0.00-0.10); Basophils % (A) 0.5 %; Eosinophils % (A) 3.4 %; HCT 31.5 % (39.6-50.0); HGB 10.3 d/dL (13.0-17.0); Lymphocytes # (A) 0.87 X 10*3/uL (0.90-5.00); Lymphocytes % (A) 7.3 %; MCH 27.3 pg (27.0-32.0); MCHC 32.7 d/dL (32.0-37.0); MCV 83.6 FL (80.0-97.0); Mean Platelet Volume 9.5 FL (9.5-12.2); Monocytes # (A) 0.57 X 10*3/uL (0.20-1.00); Monocytes % (A) 4.8 %; NRBC Per 100 WBC 0 X 10*3/uL (0.00-0.01); Neutrophils # (A) 9.85 X 10*3/uL (1.80-7.70); Platelet Count 458 X 10*3/uL (140-440); RBC 3.77 X 10*6/uL (4.40-5.60); RDW 17.5 % (11.5-14.5); WBC 11.87 X 10*3/uL (4.50-10.00)
[2023-04-09 09:10] LABS: ALT 25 U/L (10-49); AST 33 U/L (14-35); Albumin 2.5 d/dL (3.8-4.9); Albumin/Globulin Ratio 0.78 Ratio (1.60-3.17); Alkaline Phosphatase 228 U/L (41-126); Blood Urea Nitrogen 10.5 mg/dL (9.0-27.0); Calcium 8.1 mg/dL (8.7-10.3); Carbon Dioxide 26.2 mmol/L (21.6-31.8); Chloride 103 mmol/L (96-109); Globulin 3.2 d/dL (1.6-3.3); Glucose 129 mg/dL (70-110); Potassium 4.4 mmol/L (3.5-5.5); Sodium 139 mmol/L (135-145); Total Bilirubin 0.4 mg/dL (0.3-1.2); Total Protein 5.7 d/dL (6.2-8.2)
[2023-04-09] MEDS: SYMBICORT 80-4.5 MCG INHALER INHALATION SCH (09:17)
[2023-04-09] MEDS: ALBUTEROL NEBULIZED 2.5 MG/3 ML INHALATION SCH ×3 (09:17→16:18)
[2023-04-09] MEDS: FAMOTIDINE 20 MG/2 ML VIAL IV SCH (09:30)
[2023-04-09] MEDS: CHOLESTYRAMINE (WITH SUGAR) 4 GM PACKET PO SCH (09:30)
[2023-04-09] MEDS: FUROSEMIDE 10 MG/ML 2 ML VIAL IV SCH (09:31)
[2023-04-09 11:49] LABS: Glucose,Whole Blood 154 mg/dL (70-110)
[2023-04-09] MEDS ORDERED: CEFEPIME 2 GM in SODIUM CHLORIDE 0.9% 100 ML IVPB STA (12:52)
--- NOTE | 2023-04-09 12:58 | P.PN ---
Subjective Patient is seen in follow-up for acute kidney injury. Oral intake is fair. No vomiting or diarrhea. Renal function stable. Admits to good urine output. Complaining of rash with itching on the trunk and arms status post Benadryl. Rash has improved. ID needed clearance to start vancomycin for cellulitis. Renal function has been stable with creatinine at 0.9-1.0 mg/dL. Okay to start vancomycin. Objective - Vital Signs Vital signs: Vital Signs Temp 97.7 F 04/09/23 08:01 Pulse 82 04/09/23 12:21 Resp 15 04/09/23 08:01 BP 143/61 04/09/23 08:01 Pulse Ox 94 L 04/09/23 08:01 FiO2 Intake & Output 04/08/23 04/09/23 04/09/23 18:59 06:59 18:59 Intake Total 500 Output Total 1000 650 Balance -500 -650 Intake: Oral 500 Output: Urine 1000 650 Other: Voiding Method Urinal Urinal # Voids 2 - Exam Patient is awake, comfortable, in no acute distress Examination of the heart S1 and S2 Examination of the lungs bilateral breath sounds are heard Abdomen is soft obese nontender maculopapular rash noted on the upper chest Examination lower extremity shows chronic skin changes bilaterally with erythema noted in the right lower extremity. His edema has improved. Both legs are wrapped. ETCHER APPRENTICE exam grossly intact - Labs CBC & Chem 7: 04/09/23 04:49 04/09/23 04:49 Labs: Abnormal Lab Results - Last 24 Hours (Table) 04/08/23 04/08/23 04/09/23 Range/Units 16:39 20:40 01:56 WBC (4.50-10.00) X 10*3/uL RBC (4.40-5.60) X 10*6/uL Hgb (13.0-17.0) d/dL Hct (39.6-50.0) % RDW (11.5-14.5) % Plt Count (140-440) X 10*3/uL Neutrophils # (1.80-7.70) X 10*3/uL Lymphocytes # (0.90-5.00) X 10*3/uL Eosinophils # (0.04-0.35) X 10*3/uL BUN/Creatinine Ratio (12.00-20.00) Ratio Glucose (70-110) mg/dL POC Glucose (mg/dL) 187 H 164 H 161 H (70-110) mg/dL Calcium (8.7-10.3) mg/dL Alkaline Phosphatase (41-126) U/L Total Protein (6.2-8.2) d/dL Albumin (3.8-4.9) d/dL Albumin/Globulin Ratio (1.60-3.17) Ratio 04/09/23 04/09/23 04/09/23 Range/Units 04:49 04:49 05:38 WBC 11.87 H (4.50-10.00) X 10*3/uL RBC 3.77 L (4.40-5.60) X 10*6/uL Hgb 10.3 L (13.0-17.0) d/dL Hct 31.5 L (39.6-50.0) % RDW 17.5 H (11.5-14.5) % Plt Count 458 H (140-440) X 10*3/uL Neutrophils # 9.85 H (1.80-7.70) X 10*3/uL Lymphocytes # 0.87 L (0.90-5.00) X 10*3/uL Eosinophils # 0.40 H (0.04-0.35) X 10*3/uL BUN/Creatinine Ratio 10.50 L (12.00-20.00) Ratio Glucose 129 H (70-110) mg/dL POC Glucose (mg/dL) 135 H (70-110) mg/dL Calcium 8.1 L (8.7-10.3) mg/dL Alkaline Phosphatase 228 H (41-126) U/L Total Protein 5.7 L (6.2-8.2) d/dL Albumin 2.5 L (3.8-4.9) d/dL Albumin/Globulin Ratio 0.78 L (1.60-3.17) Ratio 04/09/23 Range/Units 11:48 WBC (4.50-10.00) X 10*3/uL RBC (4.40-5.60) X 10*6/uL Hgb (13.0-17.0) d/dL Hct (39.6-50.0) % RDW (11.5-14.5) % Plt Count (140-440) X 10*3/uL Neutrophils # (1.80-7.70) X 10*3/uL Lymphocytes # (0.90-5.00) X 10*3/uL Eosinophils # (0.04-0.35) X 10*3/uL BUN/Creatinine Ratio (12.00-20.00) Ratio Glucose (70-110) mg/dL POC Glucose (mg/dL) 154 H (70-110) mg/dL Calcium (8.7-10.3) mg/dL Alkaline Phosphatase (41-126) U/L Total Protein (6.2-8.2) d/dL Albumin (3.8-4.9) d/dL Albumin/Globulin Ratio (1.60-3.17) Ratio Assessment and Plan Assessment: 1. Acute kidney injury ATN nonoliguric secondary to hypotension and underlying infection. Improving. 2. Hyponatremia secondary to hypotonic fluid, improved 3. Persistent hypoglycemia, improved, status post D10.. 4. Bilateral lower extremity cellulitis, worse on the right leg, maintained on antibiotics. Wound culture positive for gram-negative bacilli 5. Right lower extremity DVT, chronic with history of PE maintained on xarelto 6. Bilateral lower extremity edema, currently maintained on IV Lasix. UA shows no evidence of proteinuria 7. Rash appears to be ALLERGIC. Maintained on Benadryl Plan: Continue with current dose of Lasix Okay to start vancomycin. Monitor levels closely. Decrease midodrine
--- NOTE | 2023-04-09 13:33 | P.DS ---
Providers Date of admission: 03/25/23 16:36 Expected date of discharge: 04/09/23 Attending physician: Johnny Lieberman Consults: 03/25/23 16:01 Consult Physician Routine Consulting Provider: Charisma Silva Consult Reason/Comments: cellulitis Do you want consulting provider notified?: Yes 03/26/23 06:41 Consult Physician Routine Consulting Provider: Yung Evans Consult Reason/Comments: ICU management Do you want consulting provider notified?: Already Contacted 03/26/23 08:05 Consult Physician Routine Consulting Provider: Dolly Douglas Consult Reason/Comments: YSABEL and PICC line Do you want consulting provider notified?: Yes 03/27/23 09:54 Consult Physician Routine Consulting Provider: Ishan Ratliff Consult Reason/Comments: Chronic DVT of right leg with cellulitis/pain Do you want consulting provider notified?: Yes Primary care physician: Tatyana Mora [facility] Course: Discharge diagnoses; Acute right leg cellulitis, with abscess Septic shock Resolved Cardiomyopathy with ejection fraction 40-45% Severe aortic stenosis Diabetes mellitus, with hypoglycemia, present on admission decreased appetite secondary to above Hypertension Hyperlipidemia History of osteoarthritis Hypothyroidism History of DVT/PE on Xarelto prior to this admission Hospital course; 77 years old male with multiple medical problems as below, he has history of DVT/PE on a blood thinner, currently on xarelto, diabetes mellitus, hypertension, hyperlipidemia, osteoarthritis, hyperthyroidism. Patient is admitted with worsening right leg swelling for the last 2 weeks as he explains to me with mild pain or discomfort in the area.. Also patient presents because of hypoglycemia. Patient was taken several of diabetes medications including metformin, Actos and glipizide 20 mg daily which patient was taken every day however he says that he had low appetite over the last 10 days and he was not eating well. Patient currently complaining of from 3-4/10 pain in his right leg. Patient can walk at home using a cane as he explains to me. Patient is fully awake and oriented and denies any other complaints. No chest pain or dyspnea. No new GI or urinary complaints. No headache dizziness weakness or numbness Patient says that he was taking testosterone at home to prevent him from falling down and other male characters 04/15/2023 Patient clinically looks the same, direct but answers questions appropriately. He denies any specific pain or discomfort. He was admitted with right leg cellulitis and currently is with Zeus wrap and he had loose bowel movement 1: No abdominal pain. His blood pressure on the low side requiring midodrine 10 mg and to make her on Levophed. Thank you again at 0.06 g per KG per minute. Also he is getting normal saline at 50 mL/h. Sugars start picking up today more than 200 therefore was started and Actos. This followed now is D5 normal saline at 50 mL/h. He is on Xarelto Uriostegui history of DVT/PE. 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 Patient currently on Zosyn without edema the case. History of heart were small dose of pressors of Levophed improvement from 0.06 down to 0.03. Also he is on midodrine 10 mg 3 times a day. He is awake alert and comfortable, no new complaint compared to yesterday for the patient's site. Remains on blood thinners Xarelto for his history of right lower extremity DVT and PE. Hogshead Hooper has been consulted for bradycardia and echocardiogram showing severe aortic stenosis.Echocardiogram showed ejection fraction of 40-45% He is off IV fluids. Insulin controlled on insulin sliding scale. Glipizide, metformin and Actos on hold. Also Cardizem is on hold. 03/29: Patient seen and evaluated bedside. Patient is alert and oriented 3. Right proximity cellulitis. Patient was treated with IV antibiotics on Zosyn. Noted to have episode of fever infectious disease following 03/30: Patient seen and evaluated bedside. Patient noted to have episode of fever and elevated W BC count overnight. We'll get CT right lower extremity to rule out abscess. Patient complained of diarrhea however stool was negative for C. diff checked while in ICU 03/31: Patient seen and evaluated bedside. Patient does complain of right lower extremity pain. Right foot exam does raise suspicion for abscess. CT right lower extremity completed antibiotic escalated to Zosyn and doxycycline. General surgery consulted. Xarelto discontinued in anticipation of incision and drainage 04/01 : Patient seen and evaluated at bedside, patient was seen by vascular surgery yesterday and had incision and drainage of left foot,. General surgery consult was canceled. Antibiotics broadened on Zosyn and Doxy to be continued will follow up on recommendations from infectious disease. Berny says his pain is better controlled after procedure yesterday. Xarelto continues to remain on hold however patient started on therapeutic dose of Lovenox in case he needs more intervention 04/02. Patient seen and examined. Still complaining of pain in right lower extr emity, bandage in place, dressing was changed by vascular this morning 04/03. Patient seen and examined. No acute issues overnight. Still has pain in right lower extremity. 04/04. Patient seen and examined. Complaining of scrotal swelling. Still has swelling and pain in his right lower extremity 04/05. Patient seen and examined. Scrotal edema has improved. 04/06. Patient seen and examined. Continues to be afebrile. 04/07. Patient seen and examined. Patient sitting upright in the chair. Complaining of some rash over left side of chest. We will continue to monitor. 04/08. Patient seen and examined. Rash has improved 04/09. Patient seen and examined. ID recommended starting patient on cefepime, vancomycin, Flagyl for 5 weeks. Outpatient follow-up with ID and vascular PHYSICAL EXAMINATION: GENERAL: The patient is alert and oriented x3, not in any acute distress. Well developed, well nourished. HEENT: Pupils are round and equally reacting to light. EOMI. No scleral icterus. No conjunctival pallor. Normocephalic, atraumatic. No pharyngeal erythema. No thyromegaly. CARDIOVASCULAR: S1 and S2 present. No murmurs, rubs, or gallops. PULMONARY: Chest is clear to auscultation, no wheezing or crackles. ABDOMEN: Soft, nontender, nondistended, normoactive bowel sounds. No palpable organomegaly. MUSCULOSKELETAL: Right lower extremity bandage seen, lymphedema of lower extremities bilaterally. Scrotal swelling noticeable NEUROLOGICAL: Gross neurological examination did not reveal any focal deficits. SKIN: No rashes. Dictation was produced using [employer] dictation software. please excuse any grammatical, word or spelling errors. Patient Condition at Discharge: Fair Plan - Discharge Summary Discharge Rx Participant: Yes New Discharge Prescriptions: New metroNIDAZOLE [Flagyl] 500 mg PO TID #120 tab Cefepime [Maxipime] 2 gm IVPB Q8H #120 each Cholestyramine (with Sugar) [Questran Packet] 4 gm PO BID@1000,1800 #14 packet Vancomycin HCl in 5 % Dextrose [Vancomycin 1 Gram/250 ml-D5w] 2 gm IV Q12HR #84 each Nystatin 100,000 Unit/gm Powd [Mycostatin Powder] 1 applic TOPICAL TID #1 each Midodrine [ProAmatine] 10 mg PO AC-TID #30 tab Continue Atorvastatin [Lipitor] 10 mg PO DAILY Levothyroxine Sodium [Synthroid] 200 mcg PO DAILY Montelukast Sodium [Singulair] 10 mg PO HS tiZANidine HCL [Zanaflex] 4 mg PO TID PRN PRN Reason: Muscle Spasm Albuterol Sulfate [Ventolin HFA] 2 puff INHALATION RT-Q4H #0 glipiZIDE XL [Glucotrol XL] 20 mg PO DAILY metFORMIN HCL [Glucophage] 500 mg PO BID Fluticasone/Vilanterol [Breo Ellipta 100-25 Mcg Inhaler] 1 puff INHALATION RT-DAILY Rivaroxaban [Xarelto] 20 mg PO DAILY Pioglitazone [Actos] 15 mg PO DAILY Furosemide [Lasix] 40 mg PO DAILY 30 Days #30 tablet Testosterone Cypionate [Depo-Testosterone] 200 mg IM Q14D Omeprazole [PriLOSEC] 20 mg PO DAILY Changed HYDROcodone/APAP 5-325MG [[place] 5-325] 1 tab PO Q6HR PRN #12 PRN Reason: Pain Discontinued dilTIAZem HCL [dilTIAZem [id number] ER (CD)] 240 mg PO DAILY Discharge Medication List Atorvastatin [Lipitor] 10 mg PO DAILY 10/04/17 [History] Levothyroxine Sodium [Synthroid] 200 mcg PO DAILY 10/20/19 [History] Montelukast Sodium [Singulair] 10 mg PO HS 10/20/19 [History] tiZANidine HCL [Zanaflex] 4 mg PO TID PRN 03/31/20 [History] Rivaroxaban [Xarelto] 20 mg PO DAILY 05/03/21 [History] Pioglitazone [Actos] 15 mg PO DAILY 05/12/22 [History] Albuterol Sulfate [Ventolin HFA] 2 puff INHALATION RT-Q4H #0 07/07/22 [Rx] Furosemide [Lasix] 40 mg PO DAILY 30 Days #30 tablet 07/07/22 [Rx] Omeprazole [PriLOSEC] 20 mg PO DAILY 03/25/23 [History] Testosterone Cypionate [Depo-Testosterone] 200 mg IM Q14D 03/25/23 [History] glipiZIDE XL [Glucotrol XL] 20 mg PO DAILY 03/25/23 [History] metFORMIN HCL [Glucophage] 500 mg PO BID 03/25/23 [History] Fluticasone/Vilanterol [Breo Ellipta 100-25 Mcg Inhaler] 1 puff INHALATION RT- DAILY 03/26/23 [History] Cefepime [Maxipime] 2 gm IVPB Q8H #120 each 04/09/23 [Rx] Cholestyramine (with Sugar) [Questran Packet] 4 gm PO BID@1000,1800 #14 packet 04/09/23 [Rx] HYDROcodone/APAP 5-325MG [[place] 5-325] 1 tab PO Q6HR PRN #12 04/09/23 [Rx] Midodrine [ProAmatine] 10 mg PO AC-TID #30 tab 04/09/23 [Rx] Nystatin 100,000 Unit/gm Powd [Mycostatin Powder] 1 applic TOPICAL TID #1 each 04/09/23 [Rx] Vancomycin HCl in 5 % Dextrose [Vancomycin 1 Gram/250 ml-D5w] 2 gm IV Q12HR #84 each 04/09/23 [Rx] metroNIDAZOLE [Flagyl] 500 mg PO TID #120 tab 04/09/23 [Rx] Follow up Appointment(s)/Referral(s): Tatyana Mora MD [Primary Care Provider] - 1-2 days Charisma Silva MD [STAFF PHYSICIAN] - 1 Week Ishan Ratliff MD [STAFF PHYSICIAN] - 1 Week Ambulatory/Diagnostic Orders: Basic Metabolic Panel [LAB.AMB] Location: None Selected C Reactive Protein [LAB.AMB] Location: None Selected Complete Blood Count w/diff [LAB.AMB] Location: None Selected Erythrocyte Sedimentation Rate [LAB.AMB] Location: None Selected Discharge Disposition: TRANSFER TO SNF/ECF
[2023-04-09 15:47] VITALS: BP 117/48; PULSE 81; RESP 16; TEMP 98.3
--- NOTE | 2023-04-15 11:10 | P.PN ---
Subjective Progress Note Date: 04/09/23 Principal diagnosis: Right lower extremity wound and cellulitis Patient is a 77-year-old male with a past medical history negative for hypertension hyperlipidemia diabetes mellitus PE patient also have a lower extremity venous stasis ulcer and history of recurrent cellulitis patient presenting to the hospital concerning for right leg infection patient noticed to have increasing redness to discomfort and drainage to the right lower extremity, admitted to the ICU because of hypoglycemia On today's evaluation that is 04/09/2023, the patient is afebrile and the patient is breathing comfortably on room air patient denies having any chest pain shortness of breath or cough no nausea vomiting abdominal pain right lower extremity pain and swelling has decreased in intensity no further drainage reported. Patient white count is 11.87 creatinine is 1.0 Objective - Vital Signs Vital signs: Vital Signs Temp 97.7 F 04/09/23 08:01 Pulse 82 04/09/23 12:21 Resp 15 04/09/23 08:01 BP 143/61 04/09/23 08:01 Pulse Ox 94 L 04/09/23 08:01 FiO2 Intake & Output 04/08/23 04/09/23 04/09/23 18:59 06:59 18:59 Intake Total 500 Output Total 1000 650 Balance -500 -650 Intake: Oral 500 Output: Urine 1000 650 Other: Voiding Method Urinal Urinal # Voids 2 - Exam GENERAL DESCRIPTION: An elderly male lying in bed in no distress RESPIRATORY SYSTEM: Unlabored breathing , decreased breath sounds at bases HEART: S1 S2 regular rate and rhythm , ABDOMEN: Soft , no tenderness EXTREMITIES: Right foot dorsal wound is currently dressed no drainage on the dressing - Labs CBC & Chem 7: 04/09/23 04:49 04/09/23 04:49 Labs: Abnormal Lab Results - Last 24 Hours (Table) 04/08/23 04/08/23 04/09/23 Range/Units 16:39 20:40 01:56 WBC (4.50-10.00) X 10*3/uL RBC (4.40-5.60) X 10*6/uL Hgb (13.0-17.0) d/dL Hct (39.6-50.0) % RDW (11.5-14.5) % Plt Count (140-440) X 10*3/uL Neutrophils # (1.80-7.70) X 10*3/uL Lymphocytes # (0.90-5.00) X 10*3/uL Eosinophils # (0.04-0.35) X 10*3/uL BUN/Creatinine Ratio (12.00-20.00) Ratio Glucose (70-110) mg/dL POC Glucose (mg/dL) 187 H 164 H 161 H (70-110) mg/dL Calcium (8.7-10.3) mg/dL Alkaline Phosphatase (41-126) U/L Total Protein (6.2-8.2) d/dL Albumin (3.8-4.9) d/dL Albumin/Globulin Ratio (1.60-3.17) Ratio 04/09/23 04/09/23 04/09/23 Range/Units 04:49 04:49 05:38 WBC 11.87 H (4.50-10.00) X 10*3/uL RBC 3.77 L (4.40-5.60) X 10*6/uL Hgb 10.3 L (13.0-17.0) d/dL Hct 31.5 L (39.6-50.0) % RDW 17.5 H (11.5-14.5) % Plt Count 458 H (140-440) X 10*3/uL Neutrophils # 9.85 H (1.80-7.70) X 10*3/uL Lymphocytes # 0.87 L (0.90-5.00) X 10*3/uL Eosinophils # 0.40 H (0.04-0.35) X 10*3/uL BUN/Creatinine Ratio 10.50 L (12.00-20.00) Ratio Glucose 129 H (70-110) mg/dL POC Glucose (mg/dL) 135 H (70-110) mg/dL Calcium 8.1 L (8.7-10.3) mg/dL Alkaline Phosphatase 228 H (41-126) U/L Total Protein 5.7 L (6.2-8.2) d/dL Albumin 2.5 L (3.8-4.9) d/dL Albumin/Globulin Ratio 0.78 L (1.60-3.17) Ratio 04/09/23 Range/Units 11:48 WBC (4.50-10.00) X 10*3/uL RBC (4.40-5.60) X 10*6/uL Hgb (13.0-17.0) d/dL Hct (39.6-50.0) % RDW (11.5-14.5) % Plt Count (140-440) X 10*3/uL Neutrophils # (1.80-7.70) X 10*3/uL Lymphocytes # (0.90-5.00) X 10*3/uL Eosinophils # (0.04-0.35) X 10*3/uL BUN/Creatinine Ratio (12.00-20.00) Ratio Glucose (70-110) mg/dL POC Glucose (mg/dL) 154 H (70-110) mg/dL Calcium (8.7-10.3) mg/dL Alkaline Phosphatase (41-126) U/L Total Protein (6.2-8.2) d/dL Albumin (3.8-4.9) d/dL Albumin/Globulin Ratio (1.60-3.17) Ratio Assessment and Plan (1) Cellulitis of right leg Status: Acute Code(s): L03.115 - CELLULITIS OF RIGHT LOWER LIMB SNOMED Code(s): 485115007 (2) Chronic cutaneous venous stasis ulcer Status: Acute Code(s): I83.009 - VARICOSE VEINS OF UNSP LOWER EXTREMITY W ULCER OF UNSP SITE; L97.909 - NON-PRS CHRONIC ULC UNSP PRT OF UNSP LOW LEG W UNSP SEVERITY SNOMED Code(s): 68022374 Plan: Patient with a right lower extremity venous stasis ulcer and second cellulitis also have a skin necrosis on the dorsal aspect of the right foot s/p extensive debridement wound cultures growing Pseudomonas and MRSA, wound is significantly deep and concerning for possible osteomyelitis we will continue the patient on cefepime and vancomycin along with oral Flagyl x6 weeks [facility] by moist dressing and close outpatient follow-up Dictation was produced using [employer] software. please excuse any grammatical, word or spelling errors.
== END 2023-04-09 16:22 | DRG 853 ==
LOC: EC 14:06 → 4SSUR 16:36 → 2SICU 03-26 04:24 → 4SSUR 03-30 02:03
PROVIDERS: ADMIT Hospitalist; ATTEND Hospitalist
PROC: 02HV33Z Insertion of Infusion Device into Superior Vena Cava, Percutaneous Approach (ICD-10-PCS; 2023-03-26)
PROC: 3E043XZ Introduction of Vasopressor into Central Vein, Percutaneous Approach (ICD-10-PCS; 2023-03-26)
PROC: 0JBQ0ZZ Excision of Right Foot Subcutaneous Tissue and Fascia, Open Approach (ICD-10-PCS; principal; 2023-03-31)
DX: A41.02 Sepsis due to Methicillin resistant Staphylococcus aureus (principal); N17.0 Acute kidney failure with tubular necrosis; R65.21 Severe sepsis with septic shock; L03.116 Cellulitis of left lower limb; D68.51 Activated protein C resistance; E87.1 Hypo-osmolality and hyponatremia; I42.9 Cardiomyopathy, unspecified; I82.401 Acute embolism and thrombosis of unspecified deep veins of right lower extremity; I82.501 Chronic embolism and thrombosis of unspecified deep veins of right lower extremity; L03.115 Cellulitis of right lower limb; L97.319 Non-pressure chronic ulcer of right ankle with unspecified severity; I27.82 Chronic pulmonary embolism; B95.62 Methicillin resistant Staphylococcus aureus infection as the cause of diseases classified elsewhere; E03.9 Hypothyroidism, unspecified; E11.649 Type 2 diabetes mellitus with hypoglycemia without coma; E66.9 Obesity, unspecified; E78.5 Hyperlipidemia, unspecified; I10 Essential (primary) hypertension; I35.0 Nonrheumatic aortic (valve) stenosis; I83.009 Varicose veins of unspecified lower extremity with ulcer of unspecified site; J45.50 Severe persistent asthma, uncomplicated; K21.9 Gastro-esophageal reflux disease without esophagitis; M19.90 Unspecified osteoarthritis, unspecified site; N50.89 Other specified disorders of the male genital organs; Z79.01 Long term (current) use of anticoagulants; Z79.2 Long term (current) use of antibiotics; Z79.4 Long term (current) use of insulin; Z79.51 Long term (current) use of inhaled steroids; Z79.84 Long term (current) use of oral hypoglycemic drugs; Z79.890 Hormone replacement therapy; Z79.899 Other long term (current) drug therapy; Z85.828 Personal history of other malignant neoplasm of skin; Z87.442 Personal history of urinary calculi; Z87.891 Personal history of nicotine dependence; Z88.8 Allergy status to other drugs, medicaments and biological substances; Z91.041 Radiographic dye allergy status; Z91.040 Latex allergy status; Z88.5 Allergy status to narcotic agent; Z91.013 Allergy to seafood; Z68.37 Body mass index [BMI] 37.0-37.9, adult
CPT/HCPCS: 36415; 36573; 71045; 80048; 80053; 81001; 82330; 82533; 82550; 82947; 83036; 83605; 83735; 84439; 84443; 85025; 85027; 86140; 87040; 87070; 87075; 87077; 87186; 87205; 87324; 93306; 94640; 96374; 99285

== ENCOUNTER 2023-05-23 20:09 | Inpatient (IN) | payer MEDICARE, BC ==
[2023-05-23] MEDS ORDERED: SODIUM CHLORIDE 0.9% 1,000 ML IV STA (21:03)
[2023-05-23 21:57] LABS: Anisocytosis Slight; Basophils % (A) 0 %; Eosinophils # (A) 0.3 k/uL (0-0.7); Eosinophils % (A) 2 %; HCT 42.2 % (39.0-53.0); HGB 12.9 gm/dL (13.0-17.5); Hypochromasia Moderate; Lymphocytes # (A) 0.9 k/uL (1.0-4.8); Lymphocytes % (A) 8 %; MCH 28.8 pg (25.0-35.0); MCHC 30.5 g/dL (31.0-37.0); Macrocytosis Slight; Mean Platelet Volume 8.4; Monocytes # (A) 0.7 k/uL (0-1.0); Monocytes % (A) 7 %; Neutrophils # (A) 8.2 k/uL (1.3-7.7); Neutrophils % (A) 81 %; Platelet Count 190 k/uL (150-450); RBC 4.46 m/uL (4.30-5.90); RDW 19.8 % (11.5-15.5); WBC 10.2 k/uL (3.8-10.6)
[2023-05-23 21:59] LABS: MCV 94.6 fL (80.0-100.0)
[2023-05-23 22:43] LABS: ALT 11 U/L (4-49); AST 20 U/L (17-59); African American GFR (CKD) 15 (>60 ml/min/1.73 sqM); Albumin 3.2 g/dL (3.5-5.0); Alkaline Phosphatase 126 U/L (38-126); Anion Gap 13 mmol/L; Blood Urea Nitrogen 44 mg/dL (9-20); Calcium 8.9 mg/dL (8.4-10.2); Carbon Dioxide 16 mmol/L (22-30); Chloride 108 mmol/L (98-107); Glucose 174 mg/dL (74-99); Non-African American GFR(CKD) 13 (>60 ml/min/1.73 sqM); Sodium 137 mmol/L (137-145); Total Bilirubin 0.6 mg/dL (0.2-1.3); Total Protein 7.2 g/dL (6.3-8.2)
[2023-05-23] MEDS ORDERED: NALOXONE 0.4 MG/ML 1 ML VIAL IV PRN ×2 (23:15→23:19)
--- NOTE | 2023-05-23 23:23 | US ---
EXAMINATION TYPE: US renals and bladder DATE OF EXAM: 05/23/2023 COMPARISON: MRI 01/19/2023. CLINICAL INDICATION: Male, 78 years old with history of acute kidney injury; YSABEL Right side limited due to body habitus and pt unable to roll. EXAM MEASUREMENTS: Right Kidney: 11.4 x 7.1 x 5.5 cm Left Kidney: 12.6 x 6.4 x 6.7 cm Right Kidney: No hydronephrosis or masses seen Left Kidney: Cystic area within the left renal sinus is again seen when comparing to 01/19/2023 MRI. Bladder: wnl Bilateral Jets seen: No There is no evidence for hydronephrosis at this point in time. No nephrolithiasis is seen. No santy s are identified. The urinary bladder is anechoic. IMPRESSION: 1. Left renal sinus. Pelvic cyst suggested. This was seen on MRI on 01/19/2023. 2. Cortical medullary differentiation maintained. 3. No definitive evidence for obstructive uropathy.
--- NOTE | 2023-05-23 23:31 | ED ---
General Adult HPI - General Chief complaint: Recheck/Abnormal Lab/Rx Stated complaint: abn labs Time Seen by Provider: 05/23/23 20:41 Source: patient, RN notes reviewed, old records reviewed Mode of arrival: EMS Limitations: physical limitation - History of Present Illness Initial comments: Patient is a 78 year old male who presents from nursing facility over concern for acute renal failure. Over the last month patient's creatinine has slowly increased from normal at 1.2 to currently today at 4.27. There is concern this is likely secondary to his IV vancomycin which she has been taken for right lower extremity cellulitis. Presents for further evaluation and evaluation by nephrology. Currently has no new complaints. Presents for evaluation. States he seems to be improving. - Related Data Home Medications Medication Instructions Recorded Confirmed Atorvastatin [Lipitor] 10 mg PO DAILY@1700 10/04/17 05/23/23 Levothyroxine Sodium [Synthroid] 200 mcg PO DAILY@0610/20/19 05/23/23 Montelukast Sodium [Singulair] 10 mg PO HS@2100 10/20/19 05/23/23 tiZANidine HCL [Zanaflex] 4 mg PO TID PRN 03/31/20 05/23/23 Rivaroxaban [Xarelto] 20 mg PO DAILY@169905/03/21 05/23/23 Omeprazole [PriLOSEC] 20 mg PO DAILY@0603/25/23 05/23/23 Testosterone Cypionate 200 mg IM Q14D 03/25/23 05/23/23 [Depo-Testosterone] Fluticasone/Vilanterol [Breo 1 puff INHALATION RT-DAILY@79903/26/23 05/23/23 Ellipta 100-25 Mcg Inhaler] Acetaminophen [Tylenol 8 Hour] 650 mg PO Q4H PRN 05/23/23 05/23/23 Ferrous Sulfate [Iron] 325 mg PO DAILY@169905/23/23 05/23/23 Furosemide [Lasix] 40 mg PO DAILY@0805/23/23 05/23/23 Glucerna Shake 237 ml PO TID@0800,1200,1700 05/23/23 05/23/23 Loperamide [Imodium] 2 mg PO QID PRN 05/23/23 05/23/23 Magnesium Hydroxide [Milk of 30 ml PO Q48H PRN 05/23/23 05/23/23 Magnesia Concentrate] Midodrine [ProAmatine] 10 mg PO TID@0800,1200,1700 05/23/23 05/23/23 Na Phos,M-B/Na Phos,Di-Ba [Fleet 133 ml RECTAL DAILY PRN 05/23/23 05/23/23 Adult] Ondansetron [Zofran] 4 mg PO Q6H PRN 05/23/23 05/23/23 Vancomycin Hcl Intravenous Solution 1,500 mg IV Q48H 05/23/23 05/23/23 bisacodyL [Dulcolax] 10 mg RECTAL DAILY PRN 05/23/23 05/23/23 diphenhydrAMINE HCL [Benadryl 25 mg PO Q6HR PRN 05/23/23 05/23/23 Allergy] Previous Rx's Medication Instructions Recorded Albuterol Sulfate [Ventolin HFA] 2 puff INHALATION RT-Q4H #0 07/07/22 Cholestyramine (with Sugar) 4 gm PO BID@1000,1800 #14 packet 04/09/23 [Questran Packet] HYDROcodone/APAP 5-325MG [[place] 1 tab PO Q6HR PRN #12 04/09/23 5-325] Allergies Allergy/AdvReac Type Severity Reaction Status Date / Time Iodinated Contrast Media Allergy Anaphylaxis Verified 05/23/23 21:53 iodine Allergy Anaphylaxis Verified 05/23/23 21:53 latex Allergy recent Verified 05/23/23 21:53 testing revealed allergen, no reported reactions yet shellfish derived Allergy Anaphylaxis Verified 05/23/23 21:53 shrimp Allergy Anaphylaxis Verified 05/23/23 21:53 tuna oil Allergy Unknown Verified 05/23/23 21:53 codeine AdvReac Rapid Verified 05/23/23 21:53 Heart Rate lisinopril AdvReac Cough Verified 05/23/23 21:53 Review of Systems ROS Statement: Those systems with pertinent positive or pertinent negative responses have been documented in the HPI. Review of Systems: CONST: Denies fever EYES: Denies blurry vision ENT: Denies nasal congestion C/V: Denies Chest pain RESP: Denies shortness of breath GI: Denies abdominal pain : Denies dysuria SKIN: Endorses improving right lower extremity cellulitis. MSK: Denies joint pain. NEURO: Denies headache ROS Other: All systems not noted in ROS Statement are negative. Past Medical History Past Medical History: Asthma, Blood Disorder, Cancer, Diabetes Mellitus, Deep Vein Thrombosis (DVT), GERD/Reflux, GI Bleed, Hyperlipidemia, Hypertension, Osteoarthritis (OA), Pneumonia, Pulmonary Embolus (PE), Thyroid Disorder Additional Past Medical History / Comment(s): occular migraines, SOB with activity, hx cellulitis x 5, clotting disorder-Factor V- Leiden, basal cell skin ca(folicular), heart murmur, kidney stones, edema rt leg, History of Any Multi-Drug Resistant Organisms: None Reported, MRSA Date of last positivie culture/infection: 03/31/23 MDRO Source:: Right Foot Past Surgical History: Cholecystectomy, Hernia Repair, Tonsillectomy Additional Past Surgical History / Comment(s): 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 Father Family Medical History: No Reported History Additional Family Medical History / Comment(s): age 72. General Exam - General Exam Comments Initial Comments: General: Appears in no acute distress. HEAD: Normal with no signs of head trauma. EYES: PERRLA, EOMI, conjunctiva normal, no discharge. ENT: Hearing grossly intact, normal oropharynx. RESPIRATORY: Clear breath sounds bilaterally. No wheezes, rales, or rhonchi. C/V: Irregular rate and rhythm. S1 and S2 auscultated, symmetrical edema, peripheral pulses 2+ and intact throughout ABD: Abd is soft, nontender, nondistended EXT: Normal range of motion, no obvious deformity SKIN: Patient has a dorsal wound over the right foot with granulation tissue forming. Patient is already on antibiotics. NEURO: Alert and oriented x 4. Cranial nerves II-XII intact. No focal sensory or strength deficits. Limitations: physical limitation Course Vital Signs 05/23/23 20:37 Temperature 98.8 F Pulse Rate 73 Respiratory 17 Rate Blood Pressure 105/79 O2 Sat by Pulse 92 L Oximetry Medical Decision Making - Medical Decision Making Was pt. sent in by a medical professional or institution (DARNELL Adam, HAND ICER, urgent care, hospital, or halfway...) When possible be specific @ -No Did you speak to anyone other than the patient for history (EMS, parent, family, police, friend...)? What history was obtained from this source @ -No Did you review nursing and triage notes (agree or disagree)? Why? @ -I reviewed and agree with nursing and triage notes Were old charts reviewed (outside hosp., previous admission, EMS record, old EKG, old radiological studies, urgent care reports/EKG's, halfway records)? Report findings @ -Old charts reviewed. Differential Diagnosis (chest pain, altered mental status, abdominal pain women, abdominal pain men, vaginal bleeding, weakness, fever, dyspnea, syncope, headache, dizziness, GI bleed, back pain, seizure, CVA, palpatations, mental health, musculoskeletal)? @ -Antibiotic toxicity, acute renal failure, electrolyte abnormality, cellulitis. This list is not all inclusive. EKG interpreted by me (3pts min.). @ -As above X-rays interpreted by me (1pt min.). @ -None done CT interpreted by me (1pt min.). @ -None done U/S interpreted by me (1pt. min.). @ -She has a left renal sinus. Unchanged from prior MRI. No obvious acute process. What testing was considered but not performed or refused? (CT, X-rays, U/S, labs)? Why? @ -None What meds were considered but not given or refused? Why? @ -Considered antibiotics the patient has been on vancomycin which is likely causing nephrotoxicity. After discussion with the admitting physician Dr. Boyer, we'll hold antibiotics until infectious disease makes recommendation due to her nephrotoxicity and the patient's cellulitis. Did you discuss the management of the patient with other professionals (professionals i.e. DARNELL Adam, HAND ICER, lab, RT, psych nurse, hospice social worker, heel seat flap stapler, teacher, juvenile correctional officer, case packer and sealer)? Give summary @ -Discussed with Dr. dougherty in agreement with admission. Was also in agreement with withholding antibiotics at this time until infectious disease evaluated the patient. Was smoking cessation discussed for >3mins.? @ -No Was critical care preformed (if so, how long)? @ -No Were there social determinants of health that impacted care today? How? (Homelessness, low income, unemployed, alcoholism, drug addiction, transportation, low edu. Level, literacy, decrease access to med. care, [facility] [facility], rehab)? @ -No Was there de-escalation of care discussed even if they declined (Discuss DNR or withdrawal of care, Hospice)? DNR status @ -No What co-morbidities impacted this encounter? (DM, HTN, Smoking, COPD, CAD, Ca ncer, CVA, ARF, Chemo, Hep., AIDS, mental health diagnosis, sleep apnea, morbid obesity)? @ -Cellulitis on vancomycin Was patient admitted / discharged? Hospital course, mention meds given and route, prescriptions, significant lab abnormalities, going to OR and other pertinent info. @ -For some patient's presentation and physical exam, likely suffering nephrotoxicity from vancomycin. Has had increasing creatinine over the last month since starting it. Has no acute complaints at this time. We'll obtain basic labs. Patient was in agreement this plan. EKG unremarkable. Labs reveal continued increase in BUN and creatinine currently at 44 and 4.27 respectively. Patient treated with a dose of IV fluids. Vital signs within acceptable limits. I discussed with the patient. He will be admitted for evaluation by nephrology, infectious disease. He was in agreement this plan. We will hold antibiotics until axis disease evaluate the patient patient's admitting physician was in agreement this we did order blood cultures as well as sputum cultures at this time as well. Consults place. Patient admitted to Dr. Boyer who accepted the patient. Undiagnosed new problem with uncertain prognosis? @ -No Drug Therapy requiring intensive monitoring for toxicity (Heparin, Nitro, Insulin, Cardizem)? @ -No Were any procedures done? @ -No Diagnosis/symptom? @ -Acute renal failure, likely secondary to vancomycin toxicity in the setting of rle cellulitis and wound Acute, or Chronic, or Acute on Chronic? @ -Acute Uncomplicated (without systemic symptoms) or Complicated (systemic symptoms)? @ -Uncomplicated Side effects of treatment? @ -No Exacerbation, Progression, or Severe Exacerbation? @ -No Poses a threat to life or bodily function? How? (Chest pain, [place], RI, pneumonia, PE, COPD, DKA, ARF, appy, cholecystitis, CVA, Diverticulitis, Homicidal, Suicidal, threat to staff... and all critical care pts) @ -Yes - Lab Data Result diagrams: 05/23/23 21:03 05/23/23 21:03 Lab Results 05/23/23 05/23/23 05/23/23 Range/Units 21:03 21:03 21:03 WBC 10.2 (3.8-10.6) k/uL RBC 4.46 (4.30-5.90) m/uL Hgb 12.9 L (13.0-17.5) gm/dL Hct 42.2 (39.0-53.0) % MCV 94.6 D (80.0-100.0) fL MCH 28.8 (25.0-35.0) pg MCHC 30.5 L (31.0-37.0) g/dL RDW 19.8 H (11.5-15.5) % Plt Count 190 (150-450) k/uL MPV 8.4 Neutrophils % 81 % Lymphocytes % 8 % Monocytes % 7 % Eosinophils % 2 % Basophils % 0 % Neutrophils # 8.2 H (1.3-7.7) k/uL Lymphocytes # 0.9 L (1.0-4.8) k/uL Monocytes # 0.7 (0-1.0) k/uL Eosinophils # 0.3 (0-0.7) k/uL Basophils # 0.0 (0-0.2) k/uL Hypochromasia Moderate Anisocytosis Slight Macrocytosis Slight Sodium 137 (137-145) mmol/L Potassium 5.0 (3.5-5.1) mmol/L Chloride 108 H (98-107) mmol/L Carbon Dioxide 16 L (22-30) mmol/L Anion Gap 13 mmol/L BUN 44 H (9-20) mg/dL Creatinine 4.27 H (0.66-1.25) mg/dL Est GFR (CKD-EPI)AfAm 15 (>60 ml/min/1.73 sqM) Est GFR (CKD-EPI)NonAf 13 (>60 ml/min/1.73 sqM) Glucose 174 H (74-99) mg/dL Plasma Lactic Acid Christopher 1.3 (0.7-2.0) mmol/L Calcium 8.9 (8.4-10.2) mg/dL Total Bilirubin 0.6 (0.2-1.3) mg/dL AST 20 (17-59) U/L ALT 11 (4-49) U/L Alkaline Phosphatase 126 (38-126) U/L Total Protein 7.2 (6.3-8.2) g/dL Albumin 3.2 L (3.5-5.0) g/dL - EKG Data -: EKG Interpreted by Me EKG Comments: 12-lead Electrocardiogram Interpretation Note EKG was reviewed and interpreted by myself. 12-lead ECG performed at 2142 is interpreted by me as revealing atrial flutter versus atrial fibrillation at a rate of 71 beats per minute. [place] is normal. QRS duration is 98 ms, QTc is 332 ms.. There were no ST or T wave abnormalities to suggest myocardial ischemia or injury. R wave progression across the precordium was satisfactory. By my interpretation this EKG is non-diagnostic for acute ischemia. Disposition Clinical Impression: Acute renal failure, Vancomycin-induced nephrotoxicity, Cellulitis Disposition: ADMITTED IP TO THIS HOSP Condition: Stable Referrals: Tatyana Mora MD [Primary Care Provider] - 1-2 days Time of Disposition: 23:01
[2023-05-24] MEDS ORDERED: ALBUTEROL NEBULIZED 2.5 MG/3 ML INHALATION SCH
[2023-05-24 03:41] LABS: Appearance,Urine Cloudy (Clear); Bacteria,Urine Rare /hpf; Bilirubin,Urine Negative (Negative); Blood,Urine Moderate (Negative); Budding Yeast,Urine Few /hpf; Color,Urine Yellow; Glucose,Urine (UA) Negative (Negative); Ketones,Urine Negative (Negative); Leukocyte Esterase,Urine Large (Negative); Nitrite,Urine Negative (Negative); PH, Urine 5.5 (5.0-8.0); Protein,Urine 2+ (Negative); RBC,Urine 44 /hpf (0-5); Specific Gravity,Urine 1.015 (1.001-1.035); Squamous Epithelial Cell,Urine 1 /hpf (0-4); Urobilinogen,Urine <2.0 mg/dL (<2.0); WBC,Urine >182 /hpf (0-5)
[2023-05-24 04:07] LABS: Creatinine,Urine Random 107.2 mg/dL
[2023-05-24 04:34] LABS: Glucose,Whole Blood 160 mg/dL (70-110)
[2023-05-24] MEDS: HYDROcodone/APAP 5-325MG 1 EACH TAB PO PRN ×2 (04:49→20:21)
[2023-05-24 06:50] LABS: African American GFR (CKD) 15 (>60 ml/min/1.73 sqM); Anion Gap 13 mmol/L; Blood Urea Nitrogen 44 mg/dL (9-20); Calcium 8.6 mg/dL (8.4-10.2); Carbon Dioxide 11 mmol/L (22-30); Chloride 113 mmol/L (98-107); Glucose 145 mg/dL (74-99); Non-African American GFR(CKD) 13 (>60 ml/min/1.73 sqM); Potassium 5.3 mmol/L (3.5-5.1); Sodium 137 mmol/L (137-145)
[2023-05-24 07:24] LABS: Glucose,Whole Blood 140 mg/dL (70-110)
[2023-05-24 07:40] LABS: Anisocytosis Slight; Basophils % (A) 0 %; Eosinophils # (A) 0.2 k/uL (0-0.7); Eosinophils % (A) 2 %; HCT 43.7 % (39.0-53.0); HGB 13.7 gm/dL (13.0-17.5); Hypochromasia Moderate; Lymphocytes # (A) 0.8 k/uL (1.0-4.8); Lymphocytes % (A) 7 %; MCH 29.1 pg (25.0-35.0); MCHC 31.2 g/dL (31.0-37.0); MCV 93.2 fL (80.0-100.0); Macrocytosis Slight; Mean Platelet Volume 9.7; Monocytes # (A) 1.1 k/uL (0-1.0); Monocytes % (A) 10 %; Neutrophils # (A) 8.1 k/uL (1.3-7.7); Neutrophils % (A) 78 %; Platelet Count 192 k/uL (150-450); RBC 4.69 m/uL (4.30-5.90); RDW 19.9 % (11.5-15.5); WBC 10.4 k/uL (3.8-10.6)
[2023-05-24] MEDS: LEVOTHYROXINE 100 MCG TAB PO SCH (08:40)
[2023-05-24] MEDS: CHOLESTYRAMINE (WITH SUGAR) 4 GM PACKET PO SCH ×2 (08:40→18:06)
[2023-05-24] MEDS: MIDODRINE 5 MG TAB PO SCH ×3 (08:41→18:44)
[2023-05-24] MEDS ORDERED: NA PHOS,M-B/NA PHOS,DI-BA 133 ML ENEMA RECTAL PRN (10:42)
[2023-05-24] MEDS ORDERED: MAGNESIUM HYDROXIDE 2,400 MG/30 ML CUP PO PRN (10:42)
[2023-05-24] MEDS ORDERED: ONDANSETRON 4 MG TAB PO PRN (10:42)
[2023-05-24] MEDS ORDERED: LOPERAMIDE 2 MG CAP PO PRN (10:42)
[2023-05-24] MEDS ORDERED: diphenhydrAMINE 25 MG CAP PO PRN (10:42)
[2023-05-24] MEDS ORDERED: bisacodyL 10 MG SUPP RECTAL PRN (10:42)
[2023-05-24] MEDS ORDERED: DEXTROSE 50% SYRINGE 50 ML IVP PRN ×2 (10:43)
[2023-05-24 11:26] LABS: Glucose,Whole Blood 170 mg/dL (70-110)
[2023-05-24] MEDS: ALBUTEROL NEBULIZED 2.5 MG/3 ML INHALATION PRN ×2 (11:26→15:30)
[2023-05-24] MEDS ORDERED: NON FORMULARY DRUG (Glucerna Shake 1 CAN Ml) PO SCH (12:00)
--- NOTE | 2023-05-24 12:58 | P.NPCON ---
History of Present Illness - Reason for Consult acute renal failure - History of Present Illness Patient is a 78-year-old male with history of DVT, factor V [place] deficiency and PE. Patient has had previous episodes of acute kidney injury which resolved at the time of admission during his previous hospitalizations. Patient is admitted to the hospital with complaints of increased weakness and worsening labs as outpatient. Creatinine was noted to be 4.2 from previous reading of 1.2 on 04/27/2023. It appears that the serum creatinine has been progressively increasing to 2.5, 3.4 and now 4.2. Patient states he has been voiding. Blood pressure is on the lower side with systolic in the 90s. Ultrasound shows no evidence of obstruction. Patient was maintained on vancomycin at home for lower extremity cellulitis. UA is suggestive of underlying UTI Review of Systems As per HPI Past Medical History Past Medical History: Asthma, Blood Disorder, Cancer, Diabetes Mellitus, Deep Vein Thrombosis (DVT), GERD/Reflux, GI Bleed, Hyperlipidemia, Hypertension, Osteoarthritis (OA), Pneumonia, Pulmonary Embolus (PE), Thyroid Disorder Additional Past Medical History / Comment(s): occular migraines, SOB with activity, hx cellulitis x 5, clotting disorder-Factor V- Leiden, basal cell skin ca(folicular), heart murmur, kidney stones, edema rt leg, History of Any Multi-Drug Resistant Organisms: MRSA Date of last positivie culture/infection: 03/31/23 MDRO Source:: Right Foot Past Surgical History: Cholecystectomy, Hernia Repair, Tonsillectomy Additional Past Surgical History / Comment(s): 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 Smoking Status: Former smoker Past Alcohol Use History: Occasional Additional Past Alcohol Use History / Comment(s): Started smoking at age 17(1962) and quit age 30(1974). Past Drug Use History: None Reported - Past Family History Mother Family Medical History: No Reported History Additional Family Medical History / Comment(s): . Father Family Medical History: No Reported History Additional Family Medical History / Comment(s): age 72. Medications and Allergies Home Medications Medication Instructions Recorded Confirmed Type Atorvastatin [Lipitor] 10 mg PO DAILY@1700 10/04/17 05/23/23 History Levothyroxine Sodium [Synthroid] 200 mcg PO DAILY@0600 10/20/19 05/23/23 History Montelukast Sodium [Singulair] 10 mg PO HS@2100 10/20/19 05/23/23 History tiZANidine HCL [Zanaflex] 4 mg PO TID PRN 03/31/20 05/23/23 History Rivaroxaban [Xarelto] 20 mg PO DAILY@1700 05/03/21 05/23/23 History Albuterol Sulfate [Ventolin HFA] 2 puff INHALATION RT-Q4H #0 07/07/22 05/23/23 R x Omeprazole [PriLOSEC] 20 mg PO DAILY@0603/25/23 05/23/23 History Testosterone Cypionate 200 mg IM Q14D 03/25/23 05/23/23 History [Depo-Testosterone] Fluticasone/Vilanterol [Breo 1 puff INHALATION RT-DAILY@0803/26/23 05/23/23 History Ellipta 100-25 Mcg Inhaler] Cholestyramine (with Sugar) 4 gm PO BID@1000,1800 #14 packet 04/09/23 05/23/23 Rx [Questran Packet] HYDROcodone/APAP 5-325MG [[place] 1 tab PO Q6HR PRN #12 04/09/23 05/23/23 Rx 5-325] Acetaminophen [Tylenol 8 Hour] 650 mg PO Q4H PRN 05/23/23 05/23/23 History Ferrous Sulfate [Iron] 325 mg PO DAILY@169905/23/23 05/23/23 History Furosemide [Lasix] 40 mg PO DAILY@0805/23/23 05/23/23 History Glucerna Shake 237 ml PO TID@0800,1200,1700 05/23/23 05/23/23 History Loperamide [Imodium] 2 mg PO QID PRN 05/23/23 05/23/23 History Magnesium Hydroxide [Milk of 30 ml PO Q48H PRN 05/23/23 05/23/23 History Magnesia Concentrate] Midodrine [ProAmatine] 10 mg PO TID@0800,1200,1700 05/23/23 05/23/23 History Na Phos,M-B/Na Phos,Di-Ba [Fleet 133 ml RECTAL DAILY PRN 05/23/23 05/23/23 History Adult] Ondansetron [Zofran] 4 mg PO Q6H PRN 05/23/23 05/23/23 History Vancomycin Hcl Intravenous Solution 1,500 mg IV Q48H 05/23/23 05/23/23 History bisacodyL [Dulcolax] 10 mg RECTAL DAILY PRN 05/23/23 05/23/23 History diphenhydrAMINE HCL [Benadryl 25 mg PO Q6HR PRN 05/23/23 05/23/23 History Allergy] Allergies Allergy/AdvReac Type Severity Reaction Status Date / Time Iodinated Contrast Media Allergy Anaphylaxis Verified 05/23/23 21:53 iodine Allergy Anaphylaxis Verified 05/23/23 21:53 latex Allergy recent Verified 05/23/23 21:53 testing revealed allergen, no reported reactions yet shellfish derived Allergy Anaphylaxis Verified 05/23/23 21:53 shrimp Allergy Anaphylaxis Verified 05/23/23 21:53 tuna oil Allergy Unknown Verified 05/23/23 21:53 codeine AdvReac Rapid Verified 05/23/23 21:53 Heart Rate lisinopril AdvReac Cough Verified 05/23/23 21:53 Physical Exam Vitals: Vital Signs Temp Pulse Pulse Resp BP BP Pulse Ox 05/24/23 11:34 80 05/24/23 11:28 76 05/24/23 08:00 97.6 F 76 18 121/78 97 05/24/23 03:47 97.9 F 74 15 111/68 95 05/24/23 00:30 81 05/24/23 00:20 71 05/23/23 23:58 111/92 05/23/23 23:28 75 20 98/82 97 05/23/23 20:37 98.8 F 73 17 105/79 92 L Intake and Output 05/23/23 05/24/23 05/24/23 22:59 06:59 14:59 Other: Voiding Method Urinal Urinal # Voids 1 # Bowel Movements 1 Weight 117.934 kg 117.934 kg Patient is awake, comfortable, no acute distress Examination of the heart S1 and S2 Examination of the lungs bilateral breath sounds are heard Abdomen is soft distended nontender Examination of the lower extremities shows chronic skin changes with edema bilaterally worse on the right leg. Both legs are wrapped. SUPPLY PERSON exam grossly intact Results - Lab Results Most recent lab results Calcium 8.6 mg/dL (8.4-10.2) 05/24/23 05:49 05/24/23 05:49 05/24/23 05:49 Assessment and Plan Assessment: 1. Acute kidney injury most likely secondary to vancomycin toxicity. Currently nonoliguric. Ultrasound shows no evidence of obstruction. UA shows 2+ protein and moderate blood and WBCs more than 182 2. Pyuria rule out UTI 3. Severe non-gap metabolic acidosis secondary to acute kidney injury 4. Mild hyperkalemia associated with acidosis 5. Chronic hypotension maintained on midodrine with normal cortisol level in February 2023 Plan: Add IV bicarb Check vancomycin level Hold vancomycin and any other nephrotoxic medications Continue with midodrine DC phosphate enema DC milk of magnesia due to risk of hypermagnesemia with with underlying renal failure Thank you for the consultation. We will continue to follow the patient with you during his hospitalization.
[2023-05-24] MEDS: INSULIN ASPART (NovoLOG) 100 UNIT/ML VIAL SQ SCH ×3 (13:07→20:21)
[2023-05-24] MEDS: CEFEPIME 1 GM in SODIUM CHLORIDE 0.9% 50 ML IVPB SCH ×2 (13:37→20:41)
--- NOTE | 2023-05-24 15:53 | P.HPIM ---
History of Present Illness H&P Date: 05/24/23 This is a who presented to the emergency department for [facility] as patient was therefore continued PT/OT therapy along with IV antibiotics for right lower extremity cellulitis. Patient was sent here for increased creatinine and acute kidney injury. Baseline is normally 1.2 although was found to be 4.27. Patient's antibiotics were stopped as he was on vancomycin with consult to infectious disease and nephrology. Patient has a significant past medical history of asthma, blood disorder, cancer, diabetes mellitus, DVT, GERD, GI bleeds, hyperlipidemia, hypertension, estrogen arthritis, PE, factor V deficiency and multiple hospitalizations and episodes of cellulitis. Patient also with chronic peripheral vascular disease of bilateral lower extremity. Labs this morning reveal a BNP of 137 with a potassium of 5.3, BUN 44, creatinine is 4.2, glucose 145, urinalysis was positive for esterase and negative otherwise, random Vanco trough is 29.9. Patient to be admitted for infectious disease and nephrology evaluation. EKG showed atrial flutter with tachycardia and a renal ultrasound was done showing no hydronephrosis. Review Of Systems: Constitutional: No fever, no chills, no night sweats. No weight change. No weakness, fatigue or lethargy. No daytime sleepiness. EENT: No headache. No blurred vision or double vision, no loss of vision. No loss of Hearing, no ringing in the ears, no dizziness. No nasal drainage or congestion. No epistaxis. No sore throat. Lungs: No shortness of breath, cough, no sputum production. No wheezing. Cardiovascular: No chest pain, no lower extremity edema. No palpitations. No paroxysmal nocturnal dyspnea. No orthopnea. No lightheadedness or dizziness. No syncopal episodes. Abdominal: No abdominal pain. No nausea, vomiting. No diarrhea. No constipation. No bloody or tarry stools.. No loss of appetite. Genitourinary: No dysuria, increased frequency, urgency. No urinary retention. Musculoskeletal: No myalgias. No muscle weakness, no gait dysfunction, no frequent falls. No back pain. No neck pain. Integumentary: Reports chronic right lower extremity wounds that has been nonhealing, no lesions. No rash or pruritus. No unusual bruising. No change in hair or nails. Neurologic: No aphasia. No facial droop. No change in mentation. No head injury. No headache. No paralysis. No paresthesia. Psychiatric: No depression. No anxiety. No mood swings. Endocrine: No abnormal blood sugars. No weight change. No excessive sweating or thirst. No cold intolerance. PHYSICAL EXAMINATION: GENERAL: The patient is alert and oriented x4, obese, elderly-appearing Well developed, well nourished. HEENT: Pupils are round and equally reacting to light. EOMI. no scleral icterus. No conjunctival pallor. Normocephalic, atraumatic. No pharyngeal erythema. No thyromegaly. CARDIOVASCULAR: S1 and S2 muffled PULMONARY: diminished breath sounds bilaterally with no wheezing or rhonchi noted. ABDOMEN: soft. Nontender on exam. obese. non-distended, normoactive bowel sounds. No palpable organomegaly. MUSCULOSKELETAL: No joint swelling or deformity. EXTREMITIES: No cyanosis, clubbing, or pedal edema. Chronic bilateral lower extremity peripheral vascular discoloration with some minimal redness of the right lower extremity and some swelling NEUROLOGICAL: Gross neurological examination did not reveal any focal deficits. Diffuse weakness SKIN: No rashes. Assessment: Acute kidney injury most likely secondary to vancomycin toxicity as patient was maintained on IV antibiotics in the form of vancomycin for the last few weeks at rehab for right lower extremity cellulitis Right lower extremity cellulitis, nonhealing Non-gap metabolic acidosis secondary to acute kidney injury Hyperkalemia associated with acidosis as well as JOSH Chronic hypotension maintained on midodrine History of asthma, not an exacerbation History of DVT and PEs GERD Hyperlipidemia Hypertension History of osteoarthritis Diabetes mellitus, type II Obesity with a BMI of 37.3 Former smoker History of factor V bleed and deficiency GI prophylaxis DVT prophylaxis Full code Plan: Patient was admitted for nephrology and infectious disease consultation for continued of right lower extremity cellulitis with failure of outpatient as patient was also maintained on vancomycin with IV at the [facility]. Nephrology consulted for acute kidney injury as creatinine is above 4 and renal ultrasound was done showing no hydronephrosis Continue Accu-Cheks before meals and at bedtime and sliding scale and hold metformin All medications reviewed and resumed as appropriate Hyperkalemia with acidosis and will follow-up on repeat labs and appreciate input and recommendations from nephrology Patient will need PT/OT therapy evaluation as plans are to return to [facility] for continued physical therapy. Patient reports they have not been letting him get up out of the bed and have not been working with him as he was so weak. Will await PT/OT therapy notes currently antibiotics were held with concerns of vancomycin toxicity and appreciate input and recommendations from infectious disease. The impression and plan of care has been dictated by Mary Sanderson, nurse practitioner as directed. Dr. Yanick MD I have performed a history and examination and MDM of this patient, discussed the same with the dictator, and agree with the dictator's assessment and plan as written ,documented as a scribe. Based on total visit time, I have performed more than 50% of the visit. Any additional findings or plans will be noted. Past Medical History Past Medical History: Asthma, Blood Disorder, Cancer, Diabetes Mellitus, Deep Vein Thrombosis (DVT), GERD/Reflux, GI Bleed, Hyperlipidemia, Hypertension, Osteoarthritis (OA), Pneumonia, Pulmonary Embolus (PE), Thyroid Disorder Additional Past Medical History / Comment(s): occular migraines, SOB with activity, hx cellulitis x 5, clotting disorder-Factor V- Leiden, basal cell skin ca(folicular), heart murmur, kidney stones, edema rt leg, History of Any Multi-Drug Resistant Organisms: MRSA Date of last positivie culture/infection: 03/31/23 MDRO Source:: Right Foot Past Surgical History: Cholecystectomy, Hernia Repair, Tonsillectomy Additional Past Surgical History / Comment(s): 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 Smoking Status: Former smoker Past Alcohol Use History: Occasional Additional Past Alcohol Use History / Comment(s): Started smoking at age 17(1962) and quit age 30(1974). Past Drug Use History: None Reported - Past Family History Mother Family Medical History: No Reported History Additional Family Medical History / Comment(s): . Father Family Medical History: No Reported History Additional Family Medical History / Comment(s): age 72. Medications and Allergies Home Medications Medication Instructions Recorded Confirmed Type Atorvastatin [Lipitor] 10 mg PO DAILY@1700 10/04/17 05/23/23 History Levothyroxine Sodium [Synthroid] 200 mcg PO DAILY@0600 10/20/19 05/23/23 History Montelukast Sodium [Singulair] 10 mg PO HS@2100 10/20/19 05/23/23 History tiZANidine HCL [Zanaflex] 4 mg PO TID PRN 03/31/20 05/23/23 History Rivaroxaban [Xarelto] 20 mg PO DAILY@1700 05/03/21 05/23/23 History Albuterol Sulfate [Ventolin HFA] 2 puff INHALATION RT-Q4H #0 07/07/22 05/23/23 Rx Omeprazole [PriLOSEC] 20 mg PO DAILY@0600 03/25/23 05/23/23 History Testosterone Cypionate 200 mg IM Q14D 03/25/23 05/23/23 History [Depo-Testosterone] Fluticasone/Vilanterol [Breo 1 puff INHALATION RT-DAILY@0803/26/23 05/23/23 History Ellipta 100-25 Mcg Inhaler] Cholestyramine (with Sugar) 4 gm PO BID@1000,1800 #14 packet 04/09/23 05/23/23 Rx [Questran Packet] HYDROcodone/APAP 5-325MG [[place] 1 tab PO Q6HR PRN #12 04/09/23 05/23/23 Rx 5-325] Acetaminophen [Tylenol 8 Hour] 650 mg PO Q4H PRN 05/23/23 05/23/23 History Ferrous Sulfate [Iron] 325 mg PO DAILY@1700 05/23/23 05/23/23 History Furosemide [Lasix] 40 mg PO DAILY@0805/23/23 05/23/23 History Glucerna Shake 237 ml PO TID@0800,1200,1700 05/23/23 05/23/23 History Loperamide [Imodium] 2 mg PO QID PRN 05/23/23 05/23/23 History Magnesium Hydroxide [Milk of 30 ml PO Q48H PRN 05/23/23 05/23/23 History Magnesia Concentrate] Midodrine [ProAmatine] 10 mg PO TID@0800,1200,1700 05/23/23 05/23/23 History Na Phos,M-B/Na Phos,Di-Ba [Fleet 133 ml RECTAL DAILY PRN 05/23/23 05/23/23 History Adult] Ondansetron [Zofran] 4 mg PO Q6H PRN 05/23/23 05/23/23 History Vancomycin Hcl Intravenous Solution 1,500 mg IV Q48H 05/23/23 05/23/23 History bisacodyL [Dulcolax] 10 mg RECTAL DAILY PRN 05/23/23 05/23/23 History diphenhydrAMINE HCL [Benadryl 25 mg PO Q6HR PRN 05/23/23 05/23/23 History Allergy] Allergies Allergy/AdvReac Type Severity Reaction Status Date / Time Iodinated Contrast Media Allergy Anaphylaxis Verified 05/23/23 21:53 iodine Allergy Anaphylaxis Verified 05/23/23 21:53 latex Allergy recent Verified 05/23/23 21:53 testing revealed allergen, no reported reactions yet shellfish derived Allergy Anaphylaxis Verified 05/23/23 21:53 shrimp Allergy Anaphylaxis Verified 05/23/23 21:53 tuna oil Allergy Unknown Verified 05/23/23 21:53 codeine AdvReac Rapid Verified 05/23/23 21:53 Heart Rate lisinopril AdvReac Cough Verified 05/23/23 21:53 Physical Exam Vitals: Vital Signs Temp Pulse Pulse Resp BP BP Pulse Ox 05/24/23 08:00 97.6 F 76 18 121/78 97 05/24/23 03:47 97.9 F 74 15 111/68 95 05/24/23 00:30 81 05/24/23 00:20 71 05/23/23 23:58 111/92 05/23/23 23:28 75 20 98/82 97 05/23/23 20:37 98.8 F 73 17 105/79 92 L Intake and Output 05/23/23 05/24/23 05/24/23 22:59 06:59 14:59 Other: Voiding Method Urinal # Voids 1 Weight 117.934 kg 117.934 kg Results CBC & Chem 7: 05/24/23 05:49 05/24/23 05:49 Labs: Abnormal Lab Results - Last 24 Hours (Table) 05/23/23 05/23/23 05/24/23 Range/Units 21:03 21:03 03:01 Hgb 12.9 L (13.0-17.5) gm/dL MCHC 30.5 L (31.0-37.0) g/dL RDW 19.8 H (11.5-15.5) % Neutrophils # 8.2 H (1.3-7.7) k/uL Lymphocytes # 0.9 L (1.0-4.8) k/uL Monocytes # (0-1.0) k/uL Potassium (3.5-5.1) mmol/L Chloride 108 H (98-107) mmol/L Carbon Dioxide 16 L (22-30) mmol/L BUN 44 H (9-20) mg/dL Creatinine 4.27 H (0.66-1.25) mg/dL Glucose 174 H (74-99) mg/dL POC Glucose (mg/dL) (70-110) mg/dL Albumin 3.2 L (3.5-5.0) g/dL Urine Protein 2+ H (Negative) Urine Blood Moderate H (Negative) Ur Leukocyte Esterase Large H (Negative) Urine RBC 44 H (0-5) /hpf Urine WBC >182 H (0-5) /hpf Urine WBC Clumps Many H (None) /hpf Urine Bacteria Rare H (None) /hpf Urine Yeast (Budding) Few H (None) /hpf 05/24/23 05/24/23 05/24/23 Range/Units 04:32 05:49 05:49 Hgb (13.0-17.5) gm/dL MCHC (31.0-37.0) g/dL RDW 19.9 H (11.5-15.5) % Neutrophils # 8.1 H (1.3-7.7) k/uL Lymphocytes # 0.8 L (1.0-4.8) k/uL Monocytes # 1.1 H (0-1.0) k/uL Potassium 5.3 H (3.5-5.1) mmol/L Chloride 113 H (98-107) mmol/L Carbon Dioxide 11 L (22-30) mmol/L BUN 44 H (9-20) mg/dL Creatinine 4.20 H (0.66-1.25) mg/dL Glucose 145 H (74-99) mg/dL POC Glucose (mg/dL) 160 H (70-110) mg/dL Albumin (3.5-5.0) g/dL Urine Protein (Negative) Urine Blood (Negative) Ur Leukocyte Esterase (Negative) Urine RBC (0-5) /hpf Urine WBC (0-5) /hpf Urine WBC Clumps (None) /hpf Urine Bacteria (None) /hpf Urine Yeast (Budding) (None) /hpf 05/24/23 Range/Units 07:23 Hgb (13.0-17.5) gm/dL MCHC (31.0-37.0) g/dL RDW (11.5-15.5) % Neutrophils # (1.3-7.7) k/uL Lymphocytes # (1.0-4.8) k/uL Monocytes # (0-1.0) k/uL Potassium (3.5-5.1) mmol/L Chloride (98-107) mmol/L Carbon Dioxide (22-30) mmol/L BUN (9-20) mg/dL Creatinine (0.66-1.25) mg/dL Glucose (74-99) mg/dL POC Glucose (mg/dL) 140 H (70-110) mg/dL Albumin (3.5-5.0) g/dL Urine Protein (Negative) Urine Blood (Negative) Ur Leukocyte Esterase (Negative) Urine RBC (0-5) /hpf Urine WBC (0-5) /hpf Urine WBC Clumps (None) /hpf Urine Bacteria (None) /hpf Urine Yeast (Budding) (None) /hpf Thrombosis Risk Factor Assmnt - Choose All That Apply Any of the Below Risk Factors Present?: Yes Each Risk Factor Represents 3 Points: Positive Factor V Leiden, Age 75 years or older, History of DVT/PE Thrombosis Risk Factor Assessment Total Risk Factor Score: 9 Thrombosis Risk Factor Assessment Level: High Risk
[2023-05-24 17:30] LABS: Glucose,Whole Blood 152 mg/dL (70-110)
[2023-05-24] MEDS: RIVAROXABAN 20 MG TAB PO SCH (18:05)
[2023-05-24] MEDS: FERROUS SULFATE 325 MG TAB PO SCH (18:05)
[2023-05-24] MEDS: ATORVASTATIN 10 MG TAB PO SCH (18:05)
--- NOTE | 2023-05-24 18:17 | XR ---
EXAMINATION TYPE: XR chest 2V DATE OF EXAM: 05/24/2023 COMPARISON: 03/26/23 HISTORY: Shortness of breath TECHNIQUE: Frontal and lateral views of the chest are obtained. FINDINGS: Scattered senescent parenchymal changes noted. Hyperinflation compatible with COPD. Cardiomegaly with pulmonary venous congestion and bilateral pleural effusions compatible with congest oseas failure. Right-sided PICC line is in place. Mediastinal structures are stable and grossly unremarkable. No evidence for hilar prominence. Degenerative changes dorsal spine. IMPRESSION: 1. Congestive failure.
[2023-05-24 20:04] LABS: Glucose,Whole Blood 156 mg/dL (70-110)
[2023-05-24] MEDS: MONTELUKAST 10 MG TAB PO SCH (20:21)
--- NOTE | 2023-05-24 22:39 | P.CONS ---
History of Present Illness - Reason for Consult Consult date: 05/24/23 Right lower extremity cellulitis, ARF likely from vancomycin Requesting physician: Homero Laughlin - Chief Complaint Weakness not feeling well x few days - History of Present Illness Patient is a 78-year-old male with a past medical history significant for hypertension hyperlipidemia diabetes mellitus DVT did have a history of lower extremity venous stasis ulcers and cellulitis patient was recently admitted to this hospital and did have a infected right foot wound on the dorsal aspect status post surgical debridement by Dr. Mendosa patient wound was exten ded down to the bone with concern for underlying osteomyelitis patient local cultures were finalized with MRSA and Pseudomonas patient did get a PICC line and was advised a 6-week course of IV cefepime and vancomycin pharmacy to dose along with oral Flagyl with the patient is currently receiving at the local alf since 04/10/2023 unfortunately patient never came to the office for a follow-up from the alf patient was sent to the ER last night concerning for acute renal failure as the patient was noticed to have a creatinine of 4.27 patient has been complaining of getting weak and tired over the last few days and did have decreased appetite patient denies having any headache or URI symptoms no chest pain no shortness of breath or cough no nausea vomiting abdominal pain overall swelling redness to the lower extremity has improved still have nonhealing of the wound to the dorsum aspect of the right foot but no foul-smelling drainage patient on presentation to the hospital was afebrile and no fever has been recorded subsequently patient did have white count of 10.2 creatinine was 4.27 and urine is positive infectious he was consulted for further management of his antibiotic therapy, as mentioned earlier the patient did have a nonhealing wound to the dorsal aspect of the right foot patient has been complaining of some dull aching pain associated with it mostly mild to moderate intensity without any radiation and no foul-smelling drainage Review of Systems Positive point and negatives has been mentioned in the HPI, complete review of systems was performed and all other systems are negative Past Medical History Past Medical History: Asthma, Blood Disorder, Cancer, Diabetes Mellitus, Deep Vein Thrombosis (DVT), GERD/Reflux, GI Bleed, Hyperlipidemia, Hypertension, Osteoarthritis (OA), Pneumonia, Pulmonary Embolus (PE), Thyroid Disorder Additional Past Medical History / Comment(s): occular migraines, SOB with activity, hx cellulitis x 5, clotting disorder-Factor V- Leiden, basal cell skin ca(folicular), heart murmur, kidney stones, edema rt leg, History of Any Multi-Drug Resistant Organisms: MRSA Year Discovered:: 03/31/23 MDRO Source:: Right Foot Past Surgical History: Cholecystectomy, Hernia Repair, Tonsillectomy Additional Past Surgical History / Comment(s): 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 Smoking Status: Former smoker Past Alcohol Use History: Occasional Additional Past Alcohol Use History / Comment(s): Started smoking at age 17(1962) and quit age 30(1974). Past Drug Use History: None Reported - Past Family History Mother Family Medical History: No Reported History Additional Family Medical History / Comment(s): . Father Family Medical History: No Reported History Additional Family Medical History / Comment(s): age 72. Medications and Allergies Home Medications Medication Instructions Recorded Confirmed Type Atorvastatin [Lipitor] 10 mg PO DAILY@1700 10/04/17 05/23/23 History Levothyroxine Sodium [Synthroid] 200 mcg PO DAILY@0600 10/20/19 05/23/23 History Montelukast Sodium [Singulair] 10 mg PO HS@2100 10/20/19 05/23/23 History tiZANidine HCL [Zanaflex] 4 mg PO TID PRN 03/31/20 05/23/23 History Rivaroxaban [Xarelto] 20 mg PO DAILY@1700 05/03/21 05/23/23 History Albuterol Sulfate [Ventolin HFA] 2 puff INHALATION RT-Q4H #0 07/07/22 05/23/23 Rx Omeprazole [PriLOSEC] 20 mg PO DAILY@0600 03/25/23 05/23/23 History Testosterone Cypionate 200 mg IM Q14D 03/25/23 05/23/23 History [Depo-Testosterone] Fluticasone/Vilanterol [Breo 1 puff INHALATION RT-DAILY@0800 03/26/23 05/23/23 History Ellipta 100-25 Mcg Inhaler] Cholestyramine (with Sugar) 4 gm PO BID@1000,1800 #14 packet 04/09/23 05/23/23 Rx [Questran Packet] HYDROcodone/APAP 5-325MG [[place] 1 tab PO Q6HR PRN #12 04/09/23 05/23/23 Rx 5-325] Acetaminophen [Tylenol 8 Hour] 650 mg PO Q4H PRN 05/23/23 05/23/23 History Ferrous Sulfate [Iron] 325 mg PO DAILY@1700 05/23/23 05/23/23 History Furosemide [Lasix] 40 mg PO DAILY@0800 05/23/23 05/23/23 History Glucerna Shake 237 ml PO TID@0800,1200,1700 05/23/23 05/23/23 History Loperamide [Imodium] 2 mg PO QID PRN 05/23/23 05/23/23 History Magnesium Hydroxide [Milk of 30 ml PO Q48H PRN 05/23/23 05/23/23 History Magnesia Concentrate] Midodrine [ProAmatine] 10 mg PO TID@0800,1200,1700 05/23/23 05/23/23 History Na Phos,M-B/Na Phos,Di-Ba [Fleet 133 ml RECTAL DAILY PRN 05/23/23 05/23/23 History Adult] Ondansetron [Zofran] 4 mg PO Q6H PRN 05/23/23 05/23/23 History Vancomycin Hcl Intravenous Solution 1,500 mg IV Q48H 05/23/23 05/23/23 History bisacodyL [Dulcolax] 10 mg RECTAL DAILY PRN 05/23/23 05/23/23 History diphenhydrAMINE HCL [Benadryl 25 mg PO Q6HR PRN 05/23/23 05/23/23 History Allergy] Allergies Allergy/AdvReac Type Severity Reaction Status Date / Time Iodinated Contrast Media Allergy Anaphylaxis Verified 05/23/23 21:53 iodine Allergy Anaphylaxis Verified 05/23/23 21:53 latex Allergy recent Verified 05/23/23 21:53 testing revealed allergen, no reported reactions yet shellfish derived Allergy Anaphylaxis Verified 05/23/23 21:53 shrimp Allergy Anaphylaxis Verified 05/23/23 21:53 tuna oil Allergy Unknown Verified 05/23/23 21:53 codeine AdvReac Rapid Verified 05/23/23 21:53 Heart Rate lisinopril AdvReac Cough Verified 05/23/23 21:53 Physical Exam Vitals: Vital Signs Temp Pulse Pulse Resp BP BP Pulse Ox 05/24/23 11:28 76 05/24/23 08:00 97.6 F 76 18 121/78 97 05/24/23 03:47 97.9 F 74 15 111/68 95 05/24/23 00:30 81 05/24/23 00:20 71 05/23/23 23:58 111/92 05/23/23 23:28 75 20 98/82 97 05/23/23 20:37 98.8 F 73 17 105/79 92 L Intake and Output 05/23/23 05/24/23 05/24/23 22:59 06:59 14:59 Other: Voiding Method Urinal Urinal # Voids 1 # Bowel Movements 1 Weight 117.934 kg 117.934 kg GENERAL DESCRIPTION: Elderly male lying in bed, no distress. No tachypnea or accessory muscle of respiration use. HEENT: Shows Pallor , no scleral icterus. Oral mucous membrane is dry. NECK: Trachea central, no thyromegaly. LUNGS: Unlabored breathing. Clear to auscultation anteriorly. No wheeze or crackle. HEART: S1, S2, regular rate and rhythm. No loud murmur ABDOMEN: Soft, no tenderness , EXTREMITIES: Diffuse swelling to bilateral lower extremity however no significant redness the patient did have wound on the dorsal aspect of the right foot with minimal slough tissue no foul-smelling drainage SKIN: No rash, no masses palpable. NEUROLOGICAL: The patient is awake, alert, oriented x3, mood and affect normal. Results CBC & Chem 7: 05/24/23 05:49 05/24/23 05:49 Labs: Abnormal Lab Results - Last 24 Hours (Table) 05/23/23 05/23/23 05/24/23 Range/Units 21:03 21:03 03:01 Hgb 12.9 L (13.0-17.5) gm/dL MCHC 30.5 L (31.0-37.0) g/dL RDW 19.8 H (11.5-15.5) % Neutrophils # 8.2 H (1.3-7.7) k/uL Lymphocytes # 0.9 L (1.0-4.8) k/uL Monocytes # (0-1.0) k/uL Potassium (3.5-5.1) mmol/L Chloride 108 H (98-107) mmol/L Carbon Dioxide 16 L (22-30) mmol/L BUN 44 H (9-20) mg/dL Creatinine 4.27 H (0.66-1.25) mg/dL Glucose 174 H (74-99) mg/dL POC Glucose (mg/dL) (70-110) mg/dL Albumin 3.2 L (3.5-5.0) g/dL Urine Protein 2+ H (Negative) Urine Blood Moderate H (Negative) Ur Leukocyte Esterase Large H (Negative) Urine RBC 44 H (0-5) /hpf Urine WBC >182 H (0-5) /hpf Urine WBC Clumps Many H (None) /hpf Urine Bacteria Rare H (None) /hpf Urine Yeast (Budding) Few H (None) /hpf 05/24/23 05/24/23 05/24/23 Range/Units 04:32 05:49 05:49 Hgb (13.0-17.5) gm/dL MCHC (31.0-37.0) g/dL RDW 19.9 H (11.5-15.5) % Neutrophils # 8.1 H (1.3-7.7) k/uL Lymphocytes # 0.8 L (1.0-4.8) k/uL Monocytes # 1.1 H (0-1.0) k/uL Potassium 5.3 H (3.5-5.1) mmol/L Chloride 113 H (98-107) mmol/L Carbon Dioxide 11 L (22-30) mmol/L BUN 44 H (9-20) mg/dL Creatinine 4.20 H (0.66-1.25) mg/dL Glucose 145 H (74-99) mg/dL POC Glucose (mg/dL) 160 H (70-110) mg/dL Albumin (3.5-5.0) g/dL Urine Protein (Negative) Urine Blood (Negative) Ur Leukocyte Esterase (Negative) Urine RBC (0-5) /hpf Urine WBC (0-5) /hpf Urine WBC Clumps (None) /hpf Urine Bacteria (None) /hpf Urine Yeast (Budding) (None) /hpf 05/24/23 05/24/23 Range/Units 07:23 11:21 Hgb (13.0-17.5) gm/dL MCHC (31.0-37.0) g/dL RDW (11.5-15.5) % Neutrophils # (1.3-7.7) k/uL Lymphocytes # (1.0-4.8) k/uL Monocytes # (0-1.0) k/uL Potassium (3.5-5.1) mmol/L Chloride (98-107) mmol/L Carbon Dioxide (22-30) mmol/L BUN (9-20) mg/dL Creatinine (0.66-1.25) mg/dL Glucose (74-99) mg/dL POC Glucose (mg/dL) 140 H 170 H (70-110) mg/dL Albumin (3.5-5.0) g/dL Urine Protein (Negative) Urine Blood (Negative) Ur Leukocyte Esterase (Negative) Urine RBC (0-5) /hpf Urine WBC (0-5) /hpf Urine WBC Clumps (None) /hpf Urine Bacteria (None) /hpf Urine Yeast (Budding) (None) /hpf Assessment and Plan (1) Diabetic leg ulcer Current Visit: No Status: Acute Code(s): E11.622 - TYPE 2 DIABETES MELLITUS WITH OTHER SKIN ULCER; L97.909 - NON-PRS CHRONIC ULC UNSP PRT OF UNSP LOW LEG W UNSP SEVERITY SNOMED Code(s): 871782693 Plan: 1patient with a right diabetic foot infection with an infected hematoma on the dorsal aspect of the right foot that was drained wound culture positive for MRSA and Pseudomonas for the patient was getting vancomycin and cefepime at the local alf now being admitted to the hospital with acute renal failure likely related to the vancomycin which has been discontinued and nephrology has been consulted. 2we will start the patient on daptomycin and cefepime to cover for the 2 pathogens that was grown on his last culture the patient did have healing of the wound but not complete resolution. 3local wound care with the dry Aquacel dressing change every 48 hour. 4check inflammatory markers We will follow on clinical condition and cultures to further adjust medication if needed Thank you for this consultation we will follow the patient along with you Dictation was produced using [employer] dictation software. please excuse any grammatical, word or spelling errors. Time with Patient: Greater than 30
[2023-05-25] MEDS: HYDROcodone/APAP 5-325MG 1 EACH TAB PO PRN ×3 (05:06→20:06)
[2023-05-25] MEDS: LEVOTHYROXINE 100 MCG TAB PO SCH (05:07)
[2023-05-25 07:21] LABS: Glucose,Whole Blood 124 mg/dL (70-110)
[2023-05-25] MEDS: INSULIN ASPART (NovoLOG) 100 UNIT/ML VIAL SQ SCH ×4 (07:44→21:02)
[2023-05-25] MEDS: SYMBICORT 80-4.5 MCG INHALER INHALATION SCH ×2 (08:25→20:22)
[2023-05-25] MEDS: MIDODRINE 5 MG TAB PO SCH ×3 (09:12→17:17)
[2023-05-25] MEDS: CHOLESTYRAMINE (WITH SUGAR) 4 GM PACKET PO SCH (09:12)
[2023-05-25] MEDS: CEFEPIME 1 GM in SODIUM CHLORIDE 0.9% 50 ML IVPB SCH ×2 (09:41→20:07)
--- NOTE | 2023-05-25 11:24 | P.PN ---
Subjective Patient is seen for follow-up for acute kidney injury. Patient was admitted with increased weakness and worsening renal function. Patient had been maintained on vancomycin as outpatient for lower extremity cellulitis. Vancomycin level was 29.9 drawn yesterday. It is unclear as to when was the last dose of vancomycin as outpatient. Ex Patient states that he has been voiding well. Labs are pending from today. Maintained on daptomycin and cefepime currently. No complaints of nausea vomiting or abdominal pain. Patient has been mildly short of breath. He has significant metabolic acidosis with CO2 of 11 from labs from yesterday. Objective - Vital Signs Vital signs: Vital Signs Temp 97.9 F 05/25/23 07:45 Pulse 72 05/25/23 09:03 Resp 17 05/25/23 07:45 BP 128/80 05/25/23 07:45 Pulse Ox 96 05/25/23 00:45 FiO2 Intake & Output 05/24/23 05/25/23 05/25/23 18:59 06:59 18:59 Intake Total 100 240 Balance 100 240 Intake: Intake, IV Titration 100 Amount Cefepime 1 gm In Sodium 50 Chloride 0.9% 50 ml @ 12. 5 mls/hr IVPB Q12HR [facility] Rx#:[id number] DAPTOmycin 550 mg In 50 Sodium Chloride 0.9% 50 ml @ 100 mls/hr IVPB Q48H [facility] Rx#:[id number] Oral 240 Other: Voiding Method Urinal Urinal Bedside Commode Urinal # Voids 3 # Bowel Movements 2 1 - Exam Patient is awake, comfortable, no acute distress Examination of the heart S1 and S2 Examination of the lungs bilateral breath sounds are heard Abdomen is soft distended nontender Examination of the lower extremities shows chronic skin changes with edema bilaterally worse on the right leg. Both legs are wrapped. [employer] exam grossly intact - Labs CBC & Chem 7: 05/24/23 05:49 05/24/23 05:49 Labs: Abnormal Lab Results - Last 24 Hours (Table) 05/24/23 05/24/23 05/24/23 Range/Units 03:01 11:21 17:27 POC Glucose (mg/dL) 170 H 152 H (70-110) mg/dL C-Reactive Protein (<1.0) mg/dL Ur Random Sodium <20 L (40-220) mmol/L 05/24/23 05/25/23 05/25/23 Range/Units 19:58 06:20 07:20 POC Glucose (mg/dL) 156 H 124 H (70-110) mg/dL C-Reactive Protein 6.0 H (<1.0) mg/dL Ur Random Sodium (40-220) mmol/L Microbiology - Last 24 Hours (Table) 05/23/23 21:30 Blood Culture - Preliminary Blood 05/23/23 21:15 Blood Culture - Preliminary Blood 05/23/23 23:18 Gram Stain - Preliminary Foot - Right Assessment and Plan Assessment: 1. Acute kidney injury most likely secondary to vancomycin toxicity. Currently nonoliguric. Ultrasound shows no evidence of obstruction. UA shows 2+ protein and moderate blood and WBCs more than 182 2. Pyuria rule out UTI 3. Severe non-gap metabolic acidosis secondary to acute kidney injury 4. Mild hyperkalemia associated with acidosis 5. Chronic hypotension maintained on midodrine with normal cortisol level in February 2023 Plan: IV bicarb Check labs from today Continue to avoid nephrotoxic agents. Continue with midodrine DC phosphate enema DC milk of magnesia due to risk of hypermagnesemia with with underlying renal failure
[2023-05-25 11:44] LABS: Glucose,Whole Blood 177 mg/dL (70-110)
[2023-05-25] MEDS: PSYLLIUM HUSK 100% 6 GM PACKET PO SCH ×2 (11:57→21:01)
--- NOTE | 2023-05-25 12:14 | P.PN ---
Subjective Progress Note Date: 05/25/23 Principal diagnosis: Right diabetic foot wound and osteomyelitis Patient is a 78-year-old male with a past medical history significant for hypertension hyperlipidemia diabetes mellitus DVT did have a history of lower extremity venous stasis ulcers and cellulitis patient was recently admitted to this hospital and did have a infected right foot wound on the dorsal aspect status post surgical debridement by Dr. Mendosa patient wound was extended down to the bone with concern for underlying osteomyelitis patient local cultures were finalized with MRSA and Pseudomonas , patient was getting cefepime and vancomycin as a local [facility] now being admitted to the [facility] with worsening of his kidney function. On today's evaluation that is 05/25/2023, the patient continues to be afebrile, , the patient is breathing comfortably on room air , the patient denies chest pain shortness or cough, patient denies nausea / vomiting and no diarrhea, denies having any abdominal pain, patient denies any worsening pain to the right foot wound Patient did have white count of 10.4 and a creatinine 4.2 as of yesterday lab pending from this morning Objective - Vital Signs Vital signs: Vital Signs Temp 97.9 F 05/25/23 07:45 Pulse 72 05/25/23 09:03 Resp 17 05/25/23 07:45 BP 128/80 05/25/23 07:45 Pulse Ox 96 05/25/23 00:45 FiO2 Intake & Output 05/24/23 05/25/23 05/25/23 18:59 06:59 18:59 Intake Total 100 240 Balance 100 240 Intake: Intake, IV Titration 100 Amount Cefepime 1 gm In Sodium 50 Chloride 0.9% 50 ml @ 12. 5 mls/hr IVPB Q12HR [facility] Rx#:[id number] DAPTOmycin 550 mg In 50 Sodium Chloride 0.9% 50 ml @ 100 mls/hr IVPB Q48H [facility] Rx#:[id number] Oral 240 Other: Voiding Method Urinal Urinal Bedside Commode Urinal # Voids 3 # Bowel Movements 2 1 - Exam GENERAL DESCRIPTION: An elderly male lying in bed in no distress RESPIRATORY SYSTEM: Unlabored breathing , decreased breath sounds at bases HEART: S1 S2 regular rate and rhythm , ABDOMEN: Soft , no tenderness EXTREMITIES: Right foot wound is dressed no drainage on the dressing - Labs CBC & Chem 7: 05/24/23 05:49 05/24/23 05:49 Labs: Abnormal Lab Results - Last 24 Hours (Table) 05/24/23 05/24/23 05/24/23 Range/Units 03:01 17:27 19:58 POC Glucose (mg/dL) 152 H 156 H (70-110) mg/dL C-Reactive Protein (<1.0) mg/dL Ur Random Sodium <20 L (40-220) mmol/L 05/25/23 05/25/23 05/25/23 Range/Units 06:20 07:20 11:43 POC Glucose (mg/dL) 124 H 177 H (70-110) mg/dL C-Reactive Protein 6.0 H (<1.0) mg/dL Ur Random Sodium (40-220) mmol/L Microbiology - Last 24 Hours (Table) 05/23/23 21:30 Blood Culture - Preliminary Blood 05/23/23 21:15 Blood Culture - Preliminary Blood 05/23/23 23:18 Gram Stain - Preliminary Foot - Right Assessment and Plan (1) Diabetic leg ulcer Current Visit: No Status: Acute Code(s): E11.622 - TYPE 2 DIABETES MELLITUS WITH OTHER SKIN ULCER; L97.909 - NON-PRS CHRONIC ULC UNSP PRT OF UNSP LOW LEG W UNSP SEVERITY SNOMED Code(s): 205795018 Plan: 1patient with a right diabetic foot infection with an infected hematoma on the dorsal aspect of the right foot that was drained wound culture positive for MRSA and Pseudomonas for the patient was getting vancomycin and cefepime at the local [facility] now being admitted to the hospital with acute renal failure likely related to the vancomycin which has been discontinued and nephrology has been consulted. 2patient to continue with daptomycin and cefepime 3local wound care with the dry Aquacel dressing change every 48 hour. Dictation was produced using [facility] dictation software. please excuse any grammatical, word or spelling errors. Time with Patient: Less than 30
[2023-05-25] MEDS: DEXTROSE 5% IN WATER 1,000 ML with SODIUM BICARB (1 MEQ/ML) 150 ML IV SCH (13:04)
[2023-05-25 17:11] LABS: Glucose,Whole Blood 195 mg/dL (70-110)
[2023-05-25] MEDS: ATORVASTATIN 10 MG TAB PO SCH (17:31)
[2023-05-25] MEDS: RIVAROXABAN 20 MG TAB PO SCH (17:31)
[2023-05-25] MEDS: FERROUS SULFATE 325 MG TAB PO SCH (17:31)
[2023-05-25 17:43] LABS: African American GFR (CKD) 14 (>60 ml/min/1.73 sqM); Anion Gap 16 mmol/L; Blood Urea Nitrogen 47 mg/dL (9-20); Calcium 8.9 mg/dL (8.4-10.2); Carbon Dioxide 11 mmol/L (22-30); Chloride 110 mmol/L (98-107); Glucose 174 mg/dL (74-99); Non-African American GFR(CKD) 12 (>60 ml/min/1.73 sqM); Potassium 5.6 mmol/L (3.5-5.1); Sodium 137 mmol/L (137-145)
--- NOTE | 2023-05-25 19:48 | P.PN ---
Progress Note - Text Progress Note Date: 05/25/23 This is a who presented to the emergency department for [facility] as patient was therefore continued PT/OT therapy along with IV antibiotics for right lower extremity cellulitis. Patient was sent here for increased creatinine and acute kidney injury. Baseline is normally 1.2 although was found to be 4.27. Patient's antibiotics were stopped as he was on vancomycin with consult to infectious disease and nephrology. Patient has a significant past medical history of asthma, blood disorder, cancer, diabetes mellitus, DVT, GERD, GI bleeds, hyperlipidemia, hypertension, estrogen arthritis, PE, factor V deficiency and multiple hospitalizations and episodes of cellulitis. Patient also with chronic peripheral vascular disease of bilateral lower extremity. Labs this morning reveal a BNP of 137 with a potassium of 5.3, BUN 44, creatinine is 4.2, glucose 145, urinalysis was positive for esterase and negative otherwise, random Vanco trough is 29.9. Patient to be admitted for infectious disease and nephrology evaluation. EKG showed atrial flutter with tachycardia and a renal ultrasound was done showing no hydronephrosis. Review Of Systems: Constitutional: No fever, no chills, no night sweats. No weight change. No weakness, fatigue or lethargy. No daytime sleepiness. EENT: No headache. No blurred vision or double vision, no loss of vision. No loss of Hearing, no ringing in the ears, no dizziness. No nasal drainage or congestion. No epistaxis. No sore throat. Lungs: No shortness of breath, cough, no sputum production. No wheezing. Cardiovascular: No chest pain, no lower extremity edema. No palpitations. No paroxysmal nocturnal dyspnea. No orthopnea. No lightheadedness or dizziness. No syncopal episodes. Abdominal: No abdominal pain. No nausea, vomiting. No diarrhea. No constipation. No bloody or tarry stools.. No loss of appetite. Genitourinary: No dysuria, increased frequency, urgency. No urinary retention. Musculoskeletal: No myalgias. No muscle weakness, no gait dysfunction, no frequent falls. No back pain. No neck pain. Integumentary: Reports chronic right lower extremity wounds that has been nonhealing, no lesions. No rash or pruritus. No unusual bruising. No change in hair or nails. Neurologic: No aphasia. No facial droop. No change in mentation. No head injury. No headache. No paralysis. No paresthesia. Psychiatric: No depression. No anxiety. No mood swings. Endocrine: No abnormal blood sugars. No weight change. No excessive sweating or thirst. No cold intolerance. May 25: Patient requested a change of attending, hence I'm taking over today. Patient complains of decreased appetite. Has one or 2 loose stools a day. I'm changing him from Questran over 2 Metamucil and see how he does. Patient is on IV cefepime. Patient has a known right diabetic foot infection with infected hematoma on her dorsal of the right foot. This was drained by Dr. Mendosa. Cultures were positive for MRSA and Pseudomonas. Was discharged on vancomycin and cefepime. Admitted with acute kidney injury felt to be secondary to vancomycin. Swished over to daptomycin. Local wound care. Active Medications Acetaminophen (Acetaminophen Tab 325 Mg Tab) 650 mg PO Q4H PRN PRN Reason: GENERAL DISCOMFORT Hydrocodone Bitart/Acetaminophen (Hydrocodone/Apap 5-325mg 1 Each Tab) 1 each PO Q6HR PRN PRN Reason: Pain Last Admin: 05/25/23 12:40 Dose: 1 each Albuterol Sulfate (Albuterol Nebulized 2.5 Mg/3 Ml) 2.5 mg INHALATION RT-Q4H PRN PRN Reason: Shortness Of Breath Or Wheezing Last Admin: 05/24/23 15:30 Dose: 2.5 mg Atorvastatin Calcium (Atorvastatin 10 Mg Tab) 10 mg PO DAILY@1700 [facility] Last Admin: 05/25/23 17:31 Dose: 10 mg Bisacodyl (Bisacodyl 10 Mg Supp) 10 mg RECTAL DAILY PRN PRN Reason: Constipation Budesonide/Formoterol Fumarate (Symbicort 80-4.5 Mcg Inhaler) 2 puff INHALATION RT-BID [facility] Last Admin: 05/25/23 08:25 Dose: 2 puff Dextrose/Water (Dextrose 50% Syringe 50 Ml) 25 ml IVP PER PROTOCOL PRN; Protocol PRN Reason: Hypoglycemia Dextrose/Water (Dextrose 50% Syringe 50 Ml) 50 ml IVP PER PROTOCOL PRN; Protocol PRN Reason: Hypoglycemia Diphenhydramine HCl (Diphenhydramine 25 Mg Cap) 25 mg PO Q6HR PRN PRN Reason: Itching Ferrous Sulfate (Ferrous Sulfate 325 Mg Tab) 325 mg PO DAILY@1700 [facility] Last Admin: 05/25/23 17:31 Dose: 325 mg Daptomycin 550 mg/ Sodium (Chloride) 50 mls @ 100 mls/hr IVPB Q48H [facility]; Protocol Last Admin: 05/24/23 15:37 Dose: 100 mls/hr Cefepime HCl 1 gm/ Sodium (Chloride) 50 mls @ 12.5 mls/hr IVPB Q12HR [facility]; Protocol Last Admin: 05/25/23 09:41 Dose: 12.5 mls/hr Sodium Bicarbonate 150 ml/ (Dextrose/Water) 1,150 mls @ 80 mls/hr IV .[id number] [facility] Last Admin: 05/25/23 13:04 Dose: 80 mls/hr Insulin Aspart (Insulin Aspart (Novolog) 100 Unit/Ml Vial) 0 unit SQ ACHS [facility]; Protocol Last Admin: 05/25/23 17:31 Dose: 2 unit Levothyroxine Sodium (Levothyroxine 100 Mcg Tab) 200 mcg PO DAILY@0600 [facility] Last Admin: 05/25/23 05:07 Dose: 200 mcg Loperamide HCl (Loperamide 2 Mg Cap) 2 mg PO QID PRN PRN Reason: Loose Stool Midodrine (Midodrine 5 Mg Tab) 10 mg PO TID@0800,1200,1700 [facility] Last Admin: 05/25/23 17:17 Dose: Not Given Montelukast Sodium (Montelukast 10 Mg Tab) 10 mg PO HS@2100 [facility] Last Admin: 05/24/23 20:21 Dose: 10 mg Naloxone HCl (Naloxone 0.4 Mg/Ml 1 Ml Vial) 0.2 mg IV Q2M PRN PRN Reason: Opioid Reversal Ondansetron HCl (Ondansetron 4 Mg Tab) 4 mg PO Q6H PRN PRN Reason: Nausea And Vomiting Psyllium Hydrophilic Mucilloid (Psyllium Husk 100% 6 Gm Packet) 6 gm PO BID [facility] Last Admin: 05/25/23 11:57 Dose: Not Given Rivaroxaban (Rivaroxaban 20 Mg Tab) 20 mg PO DAILY@1700 [facility]; Protocol Last Admin: 05/25/23 17:31 Dose: 20 mg Testosterone Cypionate (Testosterone Cypionate 200 Mg/Ml 1ml Vial) 200 mg IM Q14D [facility] INVESTIGATIONS, reviewed in the clinical context: May 25: Potassium 5.6 BUN 47 creatinine 4.41 May 24: White count 10.4 hemoglobin 13.7 platelets 192 potassium 5.3 BUN 44 creatinine 4.20 bicarb 11 UA: Negative for nitrate. Leukoesterase positive. WBC greater than 182 EKG tracing personally reviewed by me-atrial flutter. Rate 71 Renal ultrasound: Corticomedullary differentiation maintained. By evidence of obstructive uropathy. Chest x-ray film personally reviewed by me-some pleural effusion. Questionable venous prominence. PHYSICAL EXAMINATION: On examination: VITAL SIGNS: [97.9, 72, 17, 128/80, 96% room air] GENERAL APPEARANCE: Average build. Lying in bed, not in distress. HEENT: Normal external appearance of nose and ear. Oral cavity normal EYES: Pupils equal. Conjunctiva normal. NECK: JVD not raised. Mass not palpable. RESPIRATORY: Respiratory effort normal. Lungs clear to auscultation. CARDIOVASCULAR: First and second sounds normal. No edema. ABDOMEN: Soft. Liver and spleen not palpable. No tenderness. No mass palpable. PSYCHIATRY: Alert and oriented x3. Mood and affect normal. EXTREMITY: Dry skin bilateral lower extremity. Venous insufficiency. Ichthyosis. Right foot wound with a dressing. Assessment and plan: -Acute kidney injury most likely secondary to vancomycin toxicity : Slow to respond Vancomycin discontinued. Following with nephrology. Follow renal function -Right foot wound with cellulitis, with cultures positive for MRSA and Pseudomonas. nonhealing Recent debridement by Dr. Mendosa from vascular. Also followed by ID. -Non-gap metabolic acidosis secondary to acute kidney injury: Slow to respond IV bicarbonate -Hyperkalemia associated with acidosis , renal failure: Worsening Renal diet. Add Lokelma -Chronic hypotension maintained on midodrine -Chronic DVT and PEs Xarelto -GERD PPI -Hyperlipidemia Lipitor -Primary osteoarthritis Tylenol as needed -Diabetes mellitus, type II Follow Accu-Cheks with sliding scale as needed -Obesity with a BMI of 37.3 Outpatient weight loss measures - factor V bleed and deficiency Xarelto -Full code Discussed length with the patient. Questions answered. Remains on IV bicarbonate drip. Add Lokelma. Follow with nephrology. Past Medical History Past Medical History: Asthma, Blood Disorder, Cancer, Diabetes Mellitus, Deep Vein Thrombosis (DVT), GERD/Reflux, GI Bleed, Hyperlipidemia, Hypertension, Osteoarthritis (OA), Pneumonia, Pulmonary Embolus (PE), Thyroid Disorder Additional Past Medical History / Comment(s): occular migraines, SOB with activity, hx cellulitis x 5, clotting disorder-Factor V- Leiden, basal cell skin ca(folicular), heart murmur, kidney stones, edema rt leg, History of Any Multi-Drug Resistant Organisms: MRSA Date of last positivie culture/infection: 03/31/23 MDRO Source:: Right Foot Past Surgical History: Cholecystectomy, Hernia Repair, Tonsillectomy Additional Past Surgical History / Comment(s): 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 Smoking Status: Former smoker Past Alcohol Use History: Occasional Additional Past Alcohol Use History / Comment(s): Started smoking at age 17(1962) and quit age 30(1974). Past Drug Use History: None Reported - Past Family History Mother Family Medical History: No Reported History Additional Family Medical History / Comment(s): . Father Family Medical History: No Reported History Additional Family Medical History / Comment(s): age 72.
[2023-05-25 20:37] LABS: Glucose,Whole Blood 205 mg/dL (70-110)
[2023-05-25] MEDS: MONTELUKAST 10 MG TAB PO SCH (21:01)
[2023-05-25] MEDS: SODIUM ZIRCONIUM CYCLOSILICATE 10 GM PACKET PO SCH (21:01)
[2023-05-26] MEDS: LEVOTHYROXINE 100 MCG TAB PO SCH (03:58)
[2023-05-26] MEDS: DEXTROSE 5% IN WATER 1,000 ML with SODIUM BICARB (1 MEQ/ML) 150 ML IV SCH ×2 (03:58→18:06)
[2023-05-26] MEDS: ACETAMINOPHEN TAB 325 MG TAB PO PRN ×2 (04:01→20:40)
[2023-05-26 07:15] LABS: African American GFR (CKD) 14 (>60 ml/min/1.73 sqM); Anion Gap 15 mmol/L; Blood Urea Nitrogen 50 mg/dL (9-20); Calcium 8.6 mg/dL (8.4-10.2); Carbon Dioxide 13 mmol/L (22-30); Chloride 108 mmol/L (98-107); Glucose 168 mg/dL (74-99); Non-African American GFR(CKD) 12 (>60 ml/min/1.73 sqM); Sodium 136 mmol/L (137-145)
[2023-05-26 07:17] LABS: Potassium 5.7 mmol/L (3.5-5.1)
[2023-05-26 07:42] LABS: Glucose,Whole Blood 164 mg/dL (70-110)
[2023-05-26] MEDS: SYMBICORT 80-4.5 MCG INHALER INHALATION SCH ×2 (08:19→20:50)
[2023-05-26] MEDS: CEFEPIME 1 GM in SODIUM CHLORIDE 0.9% 50 ML IVPB SCH ×2 (10:45→20:39)
[2023-05-26] MEDS: INSULIN ASPART (NovoLOG) 100 UNIT/ML VIAL SQ SCH ×4 (10:45→21:58)
[2023-05-26] MEDS: MIDODRINE 5 MG TAB PO SCH ×3 (10:46→16:48)
[2023-05-26] MEDS: SODIUM ZIRCONIUM CYCLOSILICATE 10 GM PACKET PO SCH ×3 (10:46→20:39)
[2023-05-26] MEDS: PSYLLIUM HUSK 100% 6 GM PACKET PO SCH ×2 (10:46→20:39)
[2023-05-26] MEDS: HYDROcodone/APAP 5-325MG 1 EACH TAB PO PRN (10:59)
[2023-05-26 13:07] LABS: Glucose,Whole Blood 153 mg/dL (70-110)
[2023-05-26] MEDS: ATORVASTATIN 10 MG TAB PO SCH ×2 (16:47→16:48)
[2023-05-26] MEDS: FERROUS SULFATE 325 MG TAB PO SCH (16:48)
--- NOTE | 2023-05-26 17:15 | P.PN ---
Subjective Progress Note Date: 05/26/23 Follow-up for acute kidney injury. Urine output not documented. Objective - Vital Signs Vital signs: Vital Signs Temp 98.2 F 05/26/23 14:00 Pulse 88 05/26/23 14:00 Resp 22 05/26/23 14:00 BP 129/80 05/26/23 14:00 Pulse Ox 93 L 05/26/23 14:00 FiO2 Intake & Output 05/25/23 05/26/23 05/26/23 18:59 06:59 18:59 Intake Total 770 Balance 770 Intake: Intake, IV Titration 530 Amount Cefepime 1 gm In Sodium 50 Chloride 0.9% 50 ml @ 12. 5 mls/hr IVPB Q12HR [facility] Rx#:[id number] Dextrose 5% in Water 1, 480 000 ml @ 80 mls/hr IV . [id number] [facility] with Sodium Bicarb (1 Meq/ml) 150 ml Rx#:[id number] Oral 240 Other: Voiding Method Bedside Commode Bedside Commode Bedside Commode Urinal Urinal Urinal # Bowel Movements 1 - Exam No acute distress S1-S2 heard Lungs clear Abdomen soft No edema - Labs CBC & Chem 7: 05/24/23 05:49 05/26/23 06:15 Labs: Abnormal Lab Results - Last 24 Hours (Table) 05/25/23 05/25/23 05/25/23 Range/Units 16:04 17:04 20:35 Sodium (137-145) mmol/L Potassium 5.6 H (3.5-5.1) mmol/L Chloride 110 H (98-107) mmol/L Carbon Dioxide 11 L (22-30) mmol/L BUN 47 H (9-20) mg/dL Creatinine 4.41 H (0.66-1.25) mg/dL Glucose 174 H (74-99) mg/dL POC Glucose (mg/dL) 195 H 205 H (70-110) mg/dL 05/26/23 05/26/23 05/26/23 Range/Units 06:15 07:41 13:05 Sodium 136 L (137-145) mmol/L Potassium 5.7 H (3.5-5.1) mmol/L Chloride 108 H (98-107) mmol/L Carbon Dioxide 13 L (22-30) mmol/L BUN 50 H (9-20) mg/dL Creatinine 4.34 H (0.66-1.25) mg/dL Glucose 168 H (74-99) mg/dL POC Glucose (mg/dL) 164 H 153 H (70-110) mg/dL Microbiology - Last 24 Hours (Table) 05/23/23 23:18 Anaerobic Culture - Preliminary Foot - Right 05/23/23 23:18 Gram Stain - Final Foot - Right Wound Culture - Final 05/23/23 21:30 Blood Culture - Preliminary Blood 05/23/23 21:15 Blood Culture - Preliminary Blood Assessment and Plan Assessment: #1 acute kidney injury secondary to toxic ATN from vancomycin -Renal ultrasound no hydronephrosis -Check bladder scan to rule out urinary retention #2 hyperkalemia multifactorial, acidosis, acute kidney injury -Check bladder scan. 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 #2 continue with lokelma hyperkalemia #3 antibiotics as per infectious disease. #4 continue with bicarb drip. #4 labs in the morning
[2023-05-26] MEDS ORDERED: SODIUM POLYSTYRENE SULFONATE 15 GM/60 ML BOTTLE PO STA (17:18)
--- NOTE | 2023-05-26 17:20 | P.PN ---
Progress Note - Text Progress Note Date: 05/26/23 This is a who presented to the emergency department for [facility] as patient was therefore continued PT/OT therapy along with IV antibiotics for right lower extremity cellulitis. Patient was sent here for increased creatinine and acute kidney injury. Baseline is normally 1.2 although was found to be 4.27. Patient's antibiotics were stopped as he was on vancomycin with consult to infectious disease and nephrology. Patient has a significant past medical history of asthma, blood disorder, cancer, diabetes mellitus, DVT, GERD, GI bleeds, hyperlipidemia, hypertension, estrogen arthritis, PE, factor V deficiency and multiple hospitalizations and episodes of cellulitis. Patient also with chronic peripheral vascular disease of bilateral lower extremity. Labs this morning reveal a BNP of 137 with a potassium of 5.3, BUN 44, creatinine is 4.2, glucose 145, urinalysis was positive for esterase and negative otherwise, random Vanco trough is 29.9. Patient to be admitted for infectious disease and nephrology evaluation. EKG showed atrial flutter with tachycardia and a renal ultrasound was done showing no hydronephrosis. Review Of Systems: Constitutional: No fever, no chills, no night sweats. No weight change. No weakness, fatigue or lethargy. No daytime sleepiness. EENT: No headache. No blurred vision or double vision, no loss of vision. No loss of Hearing, no ringing in the ears, no dizziness. No nasal drainage or congestion. No epistaxis. No sore throat. Lungs: No shortness of breath, cough, no sputum production. No wheezing. Cardiovascular: No chest pain, no lower extremity edema. No palpitations. No paroxysmal nocturnal dyspnea. No orthopnea. No lightheadedness or dizziness. No syncopal episodes. Abdominal: No abdominal pain. No nausea, vomiting. No diarrhea. No constipation. No bloody or tarry stools.. No loss of appetite. Genitourinary: No dysuria, increased frequency, urgency. No urinary retention. Musculoskeletal: No myalgias. No muscle weakness, no gait dysfunction, no frequent falls. No back pain. No neck pain. Integumentary: Reports chronic right lower extremity wounds that has been nonhealing, no lesions. No rash or pruritus. No unusual bruising. No change in hair or nails. Neurologic: No aphasia. No facial droop. No change in mentation. No head injury. No headache. No paralysis. No paresthesia. Psychiatric: No depression. No anxiety. No mood swings. Endocrine: No abnormal blood sugars. No weight change. No excessive sweating or thirst. No cold intolerance. May 25: Patient requested a change of attending, hence I'm taking over today. Patient complains of decreased appetite. Has one or 2 loose stools a day. I'm changing him from Questran over 2 Metamucil and see how he does. Patient is on IV cefepime. Patient has a known right diabetic foot infection with infected hematoma on her dorsal of the right foot. This was drained by Dr. Mendosa. Cultures were positive for MRSA and Pseudomonas. Was discharged on vancomycin and cefepime. Admitted with acute kidney injury felt to be secondary to vancomycin. Swished over to daptomycin. Local wound care. May 26: Patient breathing much better. Metamucil was added yesterday. Stool is more formed. Wound appears to be healing well. Patient is to go to rehab. Consult rn social work. Oral intake good. Up in a chair. Active Medications Acetaminophen (Acetaminophen Tab 325 Mg Tab) 650 mg PO Q4H PRN PRN Reason: GENERAL DISCOMFORT Last Admin: 05/26/23 04:01 Dose: 650 mg Hydrocodone Bitart/Acetaminophen (Hydrocodone/Apap 5-325mg 1 Each Tab) 1 each PO Q6HR PRN PRN Reason: Pain Last Admin: 05/26/23 10:59 Dose: 1 each Albuterol Sulfate (Albuterol Nebulized 2.5 Mg/3 Ml) 2.5 mg INHALATION RT-Q4H PRN PRN Reason: Shortness Of Breath Or Wheezing Last Admin: 05/24/23 15:30 Dose: 2.5 mg Apixaban (Apixaban 2.5 Mg Tablet) 2.5 mg PO BID [facility] Atorvastatin Calcium (Atorvastatin 10 Mg Tab) 10 mg PO DAILY@1700 [facility] Last Admin: 05/26/23 16:48 Dose: 10 mg Bisacodyl (Bisacodyl 10 Mg Supp) 10 mg RECTAL DAILY PRN PRN Reason: Constipation Budesonide/Formoterol Fumarate (Symbicort 80-4.5 Mcg Inhaler) 2 puff INHALATION RT-BID [facility] Last Admin: 05/26/23 08:19 Dose: 2 puff Dextrose/Water (Dextrose 50% Syringe 50 Ml) 25 ml IVP PER PROTOCOL PRN; Protocol PRN Reason: Hypoglycemia Dextrose/Water (Dextrose 50% Syringe 50 Ml) 50 ml IVP PER PROTOCOL PRN; Protocol PRN Reason: Hypoglycemia Diphenhydramine HCl (Diphenhydramine 25 Mg Cap) 25 mg PO Q6HR PRN PRN Reason: Itching Ferrous Sulfate (Ferrous Sulfate 325 Mg Tab) 325 mg PO DAILY@1700 [facility] Last Admin: 05/26/23 16:48 Dose: 325 mg Daptomycin 550 mg/ Sodium (Chloride) 50 mls @ 100 mls/hr IVPB Q48H [facility]; Protocol Last Admin: 05/26/23 16:49 Dose: 100 mls/hr Cefepime HCl 1 gm/ Sodium (Chloride) 50 mls @ 12.5 mls/hr IVPB Q12HR [facility]; Protocol Last Admin: 05/26/23 10:45 Dose: 12.5 mls/hr Sodium Bicarbonate 150 ml/ (Dextrose/Water) 1,150 mls @ 80 mls/hr IV .[id number] [facility] Last Admin: 05/26/23 03:58 Dose: 80 mls/hr Insulin Aspart (Insulin Aspart (Novolog) 100 Unit/Ml Vial) 0 unit SQ ACHS [facility]; Protocol Last Admin: 05/26/23 14:23 Dose: 1 unit Levothyroxine Sodium (Levothyroxine 100 Mcg Tab) 200 mcg PO DAILY@0600 [facility] Last Admin: 05/26/23 03:58 Dose: 200 mcg Loperamide HCl (Loperamide 2 Mg Cap) 2 mg PO QID PRN PRN Reason: Loose Stool Midodrine (Midodrine 5 Mg Tab) 10 mg PO TID@0800,1200,1700 [facility] Last Admin: 05/26/23 16:48 Dose: Not Given Montelukast Sodium (Montelukast 10 Mg Tab) 10 mg PO HS@2100 [facility] Last Admin: 05/25/23 21:01 Dose: 10 mg Naloxone HCl (Naloxone 0.4 Mg/Ml 1 Ml Vial) 0.2 mg IV Q2M PRN PRN Reason: Opioid Reversal Ondansetron HCl (Ondansetron 4 Mg Tab) 4 mg PO Q6H PRN PRN Reason: Nausea And Vomiting Psyllium Hydrophilic Mucilloid (Psyllium Husk 100% 6 Gm Packet) 6 gm PO BID [facility] Last Admin: 05/26/23 10:46 Dose: 6 gm Sodium Zirconium Cyclosilicate (Sodium Zirconium Cyclosilicate 10 Gm Packet) 10 gm PO TID [facility] Stop: 05/26/23 22:01 Last Admin: 05/26/23 16:47 Dose: 10 gm Testosterone Cypionate (Testosterone Cypionate 200 Mg/Ml 1ml Vial) 200 mg IM Q14D [facility] On examination: VITAL SIGNS: [97.9, 72, 17, 128/80, 96% room air] GENERAL APPEARANCE: Average build. Lying in bed, not in distress. HEENT: Normal external appearance of nose and ear. Oral cavity normal EYES: Pupils equal. Conjunctiva normal. NECK: JVD not raised. Mass not palpable. RESPIRATORY: Respiratory effort normal. Lungs clear to auscultation. CARDIOVASCULAR: First and second sounds normal. No edema. ABDOMEN: Soft. Liver and spleen not palpable. No tenderness. No mass palpable. PSYCHIATRY: Alert and oriented x3. Mood and affect normal. EXTREMITY: Dry skin bilateral lower extremity. Venous insufficiency. Ichthyosis. Right foot wound -dorsum of the foot. Deep. No drainage. INVESTIGATIONS, reviewed in the clinical context: Wound culture: Unremarkable May 26: Potassium 5.7 BUN 50 creatinine 4.34 bicarbonate 13 May 25: Potassium 5.6 BUN 47 creatinine 4.41 May 24: White count 10.4 hemoglobin 13.7 platelets 192 potassium 5.3 BUN 44 creatinine 4.20 bicarb 11 UA: Negative for nitrate. Leukoesterase positive. WBC greater than 182 EKG tracing personally reviewed by me-atrial flutter. Rate 71 Renal ultrasound: Corticomedullary differentiation maintained. By evidence of obstructive uropathy. Chest x-ray film personally reviewed by me-some pleural effusion. Questionable venous prominence. Assessment and plan: -Acute kidney injury most likely secondary to vancomycin toxicity : Slow to respond Vancomycin discontinued. Following with nephrology. IV bicarbonate drip Follow renal function -Right foot wound with cellulitis, with cultures positive for MRSA and Pseudomonas from last admission. This admission cultures negative. Recent debridement by Dr. Mendosa from vascular. IV cefepime. IV daptomycin. Also followed by ID. -Non-gap metabolic acidosis secondary to acute kidney injury: Slow to respond IV bicarbonate -Hyperkalemia associated with acidosis , renal failure: Slow to respond Renal diet. Lokelma We'll give 1 dose of Kayexalate -Chronic hypotension maintained on midodrine -Chronic DVT and PEs Xarelto, changed over to eliquis -GERD PPI -Hyperlipidemia Lipitor -Primary osteoarthritis Tylenol as needed -Diabetes mellitus, type II Follow Accu-Cheks with sliding scale as needed -Obesity with a BMI of 37.3 Outpatient weight loss measures - factor V bleed and deficiency Xarelto changed over to eliquis because of renal function. -Full code Kayexalate 1 dose. Patient was to go to rehab. Consult rn social work. Antibiotics per ID. Past Medical History Past Medical History: Asthma, Blood Disorder, Cancer, Diabetes Mellitus, Deep Vein Thrombosis (DVT), GERD/Reflux, GI Bleed, Hyperlipidemia, Hypertension, Osteoarthritis (OA), Pneumonia, Pulmonary Embolus (PE), Thyroid Disorder Additional Past Medical History / Comment(s): occular migraines, SOB with activity, hx cellulitis x 5, clotting disorder-Factor V- Leiden, basal cell skin ca(folicular), heart murmur, kidney stones, edema rt leg, History of Any Multi-Drug Resistant Organisms: MRSA Date of last positivie culture/infection: 03/31/23 MDRO Source:: Right Foot Past Surgical History: Cholecystectomy, Hernia Repair, Tonsillectomy Additional Past Surgical History / Comment(s): 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 Smoking Status: Former smoker Past Alcohol Use History: Occasional Additional Past Alcohol Use History / Comment(s): Started smoking at age 17(1962) and quit age 30(1974). Past Drug Use History: None Reported - Past Family History Mother Family Medical History: No Reported History Additional Family Medical History / Comment(s): . Father Family Medical History: No Reported History Additional Family Medical History / Comment(s): age 72.
--- NOTE | 2023-05-26 17:38 | P.PN ---
Subjective Progress Note Date: 05/26/23 Principal diagnosis: Right diabetic foot wound and osteomyelitis Patient is a 78-year-old male with a past medical history significant for hypertension hyperlipidemia diabetes mellitus DVT did have a history of lower extremity venous stasis ulcers and cellulitis patient was recently admitted to this hospital and did have a infected right foot wound on the dorsal aspect status post surgical debridement by Dr. Mendosa patient wound was extended down to the bone with concern for underlying osteomyelitis patient local cultures were finalized with MRSA and Pseudomonas , patient was getting cefepime and vancomycin as a local shelter now being admitted to the [facility] with worsening of his kidney function. On today's evaluation that is 05/26/2023, the patient remains to be afebrile, , the patient is breathing comfortably on room air , the patient denies chest pain and no significant cough, patient denies abdominal pain, nausea or vomiting and no diarrhea has been reported by the nursing staff, patient denies pain to the right foot wound Patient did have white count of 10.4 as of 05/24/2023 and a creatinine 4.34 Objective - Vital Signs Vital signs: Vital Signs Temp 97.6 F 05/26/23 09:29 Pulse 84 05/26/23 09:29 Resp 28 H 05/26/23 09:29 BP 138/71 05/26/23 09:29 Pulse Ox 92 L 05/26/23 09:29 FiO2 Intake & Output 05/25/23 05/26/23 05/26/23 18:59 06:59 18:59 Intake Total 770 Balance 770 Intake: Intake, IV Titration 530 Amount Cefepime 1 gm In Sodium 50 Chloride 0.9% 50 ml @ 12. 5 mls/hr IVPB Q12HR [facility] Rx#:[id number] Dextrose 5% in Water 1, 480 000 ml @ 80 mls/hr IV . [id number] [facility] with Sodium Bicarb (1 Meq/ml) 150 ml Rx#:[id number] Oral 240 Other: Voiding Method Bedside Commode Bedside Commode Urinal Urinal # Bowel Movements 1 - Exam GENERAL DESCRIPTION: An elderly male lying in bed in no distress RESPIRATORY SYSTEM: Unlabored breathing , decreased breath sounds at bases HEART: S1 S2 regular rate and rhythm , ABDOMEN: Soft , no tenderness EXTREMITIES: Right foot wound is dressed no drainage on the dressing - Labs CBC & Chem 7: 05/24/23 05:49 05/26/23 06:15 Labs: Abnormal Lab Results - Last 24 Hours (Table) 05/25/23 05/25/23 05/25/23 Range/Units 16:04 17:04 20:35 Sodium (137-145) mmol/L Potassium 5.6 H (3.5-5.1) mmol/L Chloride 110 H (98-107) mmol/L Carbon Dioxide 11 L (22-30) mmol/L BUN 47 H (9-20) mg/dL Creatinine 4.41 H (0.66-1.25) mg/dL Glucose 174 H (74-99) mg/dL POC Glucose (mg/dL) 195 H 205 H (70-110) mg/dL 05/26/23 05/26/23 05/26/23 Range/Units 06:15 07:41 13:05 Sodium 136 L (137-145) mmol/L Potassium 5.7 H (3.5-5.1) mmol/L Chloride 108 H (98-107) mmol/L Carbon Dioxide 13 L (22-30) mmol/L BUN 50 H (9-20) mg/dL Creatinine 4.34 H (0.66-1.25) mg/dL Glucose 168 H (74-99) mg/dL POC Glucose (mg/dL) 164 H 153 H (70-110) mg/dL Microbiology - Last 24 Hours (Table) 05/23/23 23:18 Gram Stain - Final Foot - Right Wound Culture - Final 05/23/23 21:30 Blood Culture - Preliminary Blood 05/23/23 21:15 Blood Culture - Preliminary Blood Assessment and Plan (1) Diabetic leg ulcer Current Visit: No Status: Acute Code(s): E11.622 - TYPE 2 DIABETES MELLITUS WITH OTHER SKIN ULCER; L97.909 - NON-PRS CHRONIC ULC UNSP PRT OF UNSP LOW LEG W UNSP SEVERITY SNOMED Code(s): 099355020 Plan: 1patient with a right diabetic foot infection with an infected hematoma on the dorsal aspect of the right foot that was drained wound culture positive for MRSA and Pseudomonas for the patient was getting vancomycin and cefepime at the local shelter now being admitted to the hospital with acute renal failure likely related to the vancomycin which has been discontinued and nephrology has been consulted. 2local wound care with the dry Aquacel dressing change every 48 hour. 3- patient to continue with daptomycin and cefepime Dictation was produced using [email or web address] dictation software. please excuse any grammatical, word or spelling errors. Time with Patient: Less than 30
[2023-05-26 17:49] LABS: Glucose,Whole Blood 160 mg/dL (70-110)
[2023-05-26] MEDS: APIXABAN 2.5 MG TABLET PO SCH (20:40)
[2023-05-26] MEDS: MONTELUKAST 10 MG TAB PO SCH (20:40)
[2023-05-27] MEDS: LEVOTHYROXINE 100 MCG TAB PO SCH (06:03)
[2023-05-27 07:54] LABS: Glucose,Whole Blood 155 mg/dL (70-110)
[2023-05-27] MEDS: SYMBICORT 80-4.5 MCG INHALER INHALATION SCH ×2 (08:33→19:45)
[2023-05-27] MEDS ORDERED: TESTOSTERONE CYPIONATE 200 MG/ML 1ML VIAL IM SCH (09:00)
[2023-05-27] MEDS: APIXABAN 2.5 MG TABLET PO SCH ×2 (10:50→20:55)
[2023-05-27] MEDS: MIDODRINE 5 MG TAB PO SCH ×3 (10:50→16:52)
[2023-05-27] MEDS: CEFEPIME 1 GM in SODIUM CHLORIDE 0.9% 50 ML IVPB SCH ×2 (10:51→21:45)
[2023-05-27] MEDS: INSULIN ASPART (NovoLOG) 100 UNIT/ML VIAL SQ SCH ×4 (10:51→21:39)
[2023-05-27] MEDS: PSYLLIUM HUSK 100% 6 GM PACKET PO SCH ×2 (10:52→20:55)
[2023-05-27] MEDS: DEXTROSE 5% IN WATER 1,000 ML with SODIUM BICARB (1 MEQ/ML) 150 ML IV SCH ×2 (11:42→11:43)
[2023-05-27] MEDS: HYDROcodone/APAP 5-325MG 1 EACH TAB PO PRN ×2 (11:57→20:54)
[2023-05-27 12:26] LABS: Glucose,Whole Blood 206 mg/dL (70-110)
--- NOTE | 2023-05-27 15:17 | P.PN ---
Subjective Progress Note Date: 05/27/23 Follow-up for acute kidney injury. No documented urine output of 450 ML's in the last 24 hours. Objective - Vital Signs Vital signs: Vital Signs Temp 98.2 F 05/27/23 08:00 Pulse 79 05/27/23 13:47 Resp 18 05/27/23 13:47 BP 136/70 05/27/23 13:47 Pulse Ox 98 05/27/23 13:47 FiO2 Intake & Output 05/26/23 05/27/23 05/27/23 18:59 06:59 18:59 Intake Total 120 1130 Output Total 428 660 Balance -428 120 470 Intake: Intake, IV Titration 1010 Amount Cefepime 1 gm In Sodium 50 Chloride 0.9% 50 ml @ 12. 5 mls/hr IVPB Q12HR [facility] Rx#:[id number] Dextrose 5% in Water 1, 960 000 ml @ 80 mls/hr IV . [id number] [facility] with Sodium Bicarb (1 Meq/ml) 150 ml Rx#:[id number] Oral 120 120 Output: Urine 400 660 Post Void Residual 28 Stool 0 Other: Voiding Method Bedside Commode Bedside Commode Bedside Commode Urinal Urinal Urinal # Voids 4 1 # Bowel Movements 2 1 - Exam No acute distress S1-S2 heard Lungs clear Abdomen soft edema - Labs CBC & Chem 7: 05/24/23 05:49 05/26/23 06:15 Labs: Abnormal Lab Results - Last 24 Hours (Table) 05/26/23 05/27/23 05/27/23 Range/Units 17:48 07:53 12:24 POC Glucose (mg/dL) 160 H 155 H 206 H (70-110) mg/dL Microbiology - Last 24 Hours (Table) 05/23/23 21:30 Blood Culture - Preliminary Blood 05/23/23 21:15 Blood Culture - Preliminary Blood 05/23/23 23:18 Anaerobic Culture - Preliminary Foot - Right Assessment and Plan Assessment: #1 acute kidney injury secondary to toxic ATN from vancomycin -Renal ultrasound no hydronephrosis #2 hyperkalemia multifactorial, acidosis, acute kidney injury -Bladder Scan 28 ML's. 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 #2 continue with lokelma hyperkalemia #3 antibiotics as per infectious disease. #4 stop bicarb drip. Add Lasix 60 mg IV every 8. #5 labs in the morning
[2023-05-27 15:28] LABS: African American GFR (CKD) 14 (>60 ml/min/1.73 sqM); Anion Gap 18 mmol/L; Blood Urea Nitrogen 56 mg/dL (9-20); Calcium 8.8 mg/dL (8.4-10.2); Carbon Dioxide 18 mmol/L (22-30); Chloride 102 mmol/L (98-107); Glucose 158 mg/dL (74-99); Non-African American GFR(CKD) 12 (>60 ml/min/1.73 sqM); Potassium 4.7 mmol/L (3.5-5.1); Sodium 138 mmol/L (137-145)
[2023-05-27] MEDS: FERROUS SULFATE 325 MG TAB PO SCH (16:52)
[2023-05-27] MEDS: SODIUM ZIRCONIUM CYCLOSILICATE 10 GM PACKET PO SCH ×2 (16:52→20:55)
[2023-05-27] MEDS: FUROSEMIDE 10 MG/ML 10 ML VIAL IV SCH (16:52)
[2023-05-27 17:56] LABS: Glucose,Whole Blood 191 mg/dL (70-110)
[2023-05-27] MEDS: MONTELUKAST 10 MG TAB PO SCH (20:54)
--- NOTE | 2023-05-27 20:55 | P.PN ---
Progress Note - Text Progress Note Date: 05/27/23 This is a who presented to the emergency department for [facility] as patient was therefore continued PT/OT therapy along with IV antibiotics for right lower extremity cellulitis. Patient was sent here for increased creatinine and acute kidney injury. Baseline is normally 1.2 although was found to be 4.27. Patient's antibiotics were stopped as he was on vancomycin with consult to infectious disease and nephrology. Patient has a significant past medical history of asthma, blood disorder, cancer, diabetes mellitus, DVT, GERD, GI bleeds, hyperlipidemia, hypertension, estrogen arthritis, PE, factor V deficiency and multiple hospitalizations and episodes of cellulitis. Patient also with chronic peripheral vascular disease of bilateral lower extremity. Labs this morning reveal a BNP of 137 with a potassium of 5.3, BUN 44, creatinine is 4.2, glucose 145, urinalysis was positive for esterase and negative otherwise, random Vanco trough is 29.9. Patient to be admitted for infectious disease and nephrology evaluation. EKG showed atrial flutter with tachycardia and a renal ultrasound was done showing no hydronephrosis. Review Of Systems: Constitutional: No fever, no chills, no night sweats. No weight change. No weakness, fatigue or lethargy. No daytime sleepiness. EENT: No headache. No blurred vision or double vision, no loss of vision. No loss of Hearing, no ringing in the ears, no dizziness. No nasal drainage or congestion. No epistaxis. No sore throat. Lungs: No shortness of breath, cough, no sputum production. No wheezing. Cardiovascular: No chest pain, no lower extremity edema. No palpitations. No paroxysmal nocturnal dyspnea. No orthopnea. No lightheadedness or dizziness. No syncopal episodes. Abdominal: No abdominal pain. No nausea, vomiting. No diarrhea. No constipation. No bloody or tarry stools.. No loss of appetite. Genitourinary: No dysuria, increased frequency, urgency. No urinary retention. Musculoskeletal: No myalgias. No muscle weakness, no gait dysfunction, no frequent falls. No back pain. No neck pain. Integumentary: Reports chronic right lower extremity wounds that has been nonhealing, no lesions. No rash or pruritus. No unusual bruising. No change in hair or nails. Neurologic: No aphasia. No facial droop. No change in mentation. No head injury. No headache. No paralysis. No paresthesia. Psychiatric: No depression. No anxiety. No mood swings. Endocrine: No abnormal blood sugars. No weight change. No excessive sweating or thirst. No cold intolerance. May 25: Patient requested a change of attending, hence I'm taking over today. Patient complains of decreased appetite. Has one or 2 loose stools a day. I'm changing him from Questran over 2 Metamucil and see how he does. Patient is on IV cefepime. Patient has a known right diabetic foot infection with infected hematoma on her dorsal of the right foot. This was drained by Dr. Mendosa. Cultures were positive for MRSA and Pseudomonas. Was discharged on vancomycin and cefepime. Admitted with acute kidney injury felt to be secondary to vancomycin. Swished over to daptomycin. Local wound care. May 26: Patient breathing much better. Metamucil was added yesterday. Stool is more formed. Wound appears to be healing well. Patient is to go to rehab. Consult social and human services assistant. Oral intake good. Up in a chair. May 27: Up in a chair. Breathing much improved. Bowels more formed. Getting wound care. Started on IV Lasix per nephrology. Active Medications Acetaminophen (Acetaminophen Tab 325 Mg Tab) 650 mg PO Q4H PRN PRN Reason: GENERAL DISCOMFORT Last Admin: 05/26/23 20:40 Dose: 650 mg Hydrocodone Bitart/Acetaminophen (Hydrocodone/Apap 5-325mg 1 Each Tab) 1 each PO Q6HR PRN PRN Reason: Pain Last Admin: 05/27/23 11:57 Dose: 1 each Albuterol Sulfate (Albuterol Nebulized 2.5 Mg/3 Ml) 2.5 mg INHALATION RT-Q4H PRN PRN Reason: Shortness Of Breath Or Wheezing Last Admin: 05/24/23 15:30 Dose: 2.5 mg Apixaban (Apixaban 2.5 Mg Tablet) 2.5 mg PO BID [facility] Last Admin: 05/27/23 10:50 Dose: 2.5 mg Atorvastatin Calcium (Atorvastatin 10 Mg Tab) 10 mg PO DAILY@1700 [facility] Last Admin: 05/26/23 16:48 Dose: 10 mg Bisacodyl (Bisacodyl 10 Mg Supp) 10 mg RECTAL DAILY PRN PRN Reason: Constipation Budesonide/Formoterol Fumarate (Symbicort 80-4.5 Mcg Inhaler) 2 puff INHALATION RT-BID [facility] Last Admin: 05/27/23 19:45 Dose: Not Given Dextrose/Water (Dextrose 50% Syringe 50 Ml) 25 ml IVP PER PROTOCOL PRN; Protocol PRN Reason: Hypoglycemia Dextrose/Water (Dextrose 50% Syringe 50 Ml) 50 ml IVP PER PROTOCOL PRN; Protocol PRN Reason: Hypoglycemia Diphenhydramine HCl (Diphenhydramine 25 Mg Cap) 25 mg PO Q6HR PRN PRN Reason: Itching Ferrous Sulfate (Ferrous Sulfate 325 Mg Tab) 325 mg PO DAILY@1700 [facility] Last Admin: 05/27/23 16:52 Dose: 325 mg Furosemide (Furosemide 10 Mg/Ml 10 Ml Vial) 60 mg IV Q8HR [facility] Last Admin: 05/27/23 16:52 Dose: 60 mg Daptomycin 550 mg/ Sodium (Chloride) 50 mls @ 100 mls/hr IVPB Q48H [facility]; Protocol Last Admin: 05/26/23 16:49 Dose: 100 mls/hr Cefepime HCl 1 gm/ Sodium (Chloride) 50 mls @ 12.5 mls/hr IVPB Q12HR [facility]; Protocol Last Admin: 05/27/23 10:51 Dose: 12.5 mls/hr Insulin Aspart (Insulin Aspart (Novolog) 100 Unit/Ml Vial) 0 unit SQ ACHS [facility]; Protocol Last Admin: 05/27/23 18:03 Dose: 2 unit Levothyroxine Sodium (Levothyroxine 100 Mcg Tab) 200 mcg PO DAILY@0600 [facility] Last Admin: 05/27/23 06:03 Dose: 200 mcg Loperamide HCl (Loperamide 2 Mg Cap) 2 mg PO QID PRN PRN Reason: Loose Stool Midodrine (Midodrine 5 Mg Tab) 10 mg PO TID@0800,1200,1700 [facility] Last Admin: 05/27/23 16:52 Dose: Not Given Montelukast Sodium (Montelukast 10 Mg Tab) 10 mg PO HS@2100 [facility] Last Admin: 05/26/23 20:40 Dose: 10 mg Naloxone HCl (Naloxone 0.4 Mg/Ml 1 Ml Vial) 0.2 mg IV Q2M PRN PRN Reason: Opioid Reversal Ondansetron HCl (Ondansetron 4 Mg Tab) 4 mg PO Q6H PRN PRN Reason: Nausea And Vomiting Psyllium Hydrophilic Mucilloid (Psyllium Husk 100% 6 Gm Packet) 6 gm PO BID [facility] Last Admin: 05/27/23 10:52 Dose: Not Given Sodium Zirconium Cyclosilicate (Sodium Zirconium Cyclosilicate 10 Gm Packet) 10 gm PO TID [facility] Stop: 05/28/23 16:01 Last Admin: 05/27/23 16:52 Dose: 10 gm Testosterone Cypionate (Testosterone Cypionate 200 Mg/Ml 1ml Vial) 200 mg IM Q14D [facility] Last Admin: 05/27/23 10:52 Dose: Not Given On examination: VITAL SIGNS: At 8.2, 80, 20, 1 23 x 69, 97% room air GENERAL APPEARANCE: Sitting up in chair, comfortable HEENT: Normal external appearance of nose and ear. Oral cavity normal EYES: Pupils equal. Conjunctiva normal. NECK: JVD not raised. Mass not palpable. RESPIRATORY: Respiratory effort increased. Lungs clear to auscultation. CARDIOVASCULAR: First and second sounds normal. Edema present ABDOMEN: Soft. Liver and spleen not palpable. No tenderness. No mass palpable. PSYCHIATRY: Alert and oriented x3. Mood and affect normal. EXTREMITY: Dry skin bilateral lower extremity. Venous insufficiency. Ichthyosis. Right foot wound -dorsum of the foot. Deep. No drainage. INVESTIGATIONS, reviewed in the clinical context: May 27: Potassium 4.7 creatinine 4.44 Wound culture: Unremarkable May 26: Potassium 5.7 BUN 50 creatinine 4.34 bicarbonate 13 May 25: Potassium 5.6 BUN 47 creatinine 4.41 May 24: White count 10.4 hemoglobin 13.7 platelets 192 potassium 5.3 BUN 44 creatinine 4.20 bicarb 11 UA: Negative for nitrate. Leukoesterase positive. WBC greater than 182 EKG tracing personally reviewed by me-atrial flutter. Rate 71 Renal ultrasound: Corticomedullary differentiation maintained. By evidence of obstructive uropathy. Chest x-ray film personally reviewed by me-some pleural effusion. Questionable venous prominence. Assessment and plan: -Acute kidney injury most likely secondary to vancomycin toxicity : Slow to respond Vancomycin discontinued. Following with nephrology. IV bicarbonate drip Follow renal function -Right foot wound with cellulitis, with cultures positive for MRSA and Pseudomonas from last admission. This admission cultures negative. Recent debridement by Dr. Mendosa from vascular. IV cefepime. IV daptomycin. Also followed by ID. -Non-gap metabolic acidosis secondary to acute kidney injury: Slow to respond IV bicarbonate -Hyperkalemia associated with acidosis , renal failure: Slow to respond Renal diet. Lokelma We'll give 1 dose of Kayexalate -Chronic hypotension maintained on midodrine -Chronic DVT and PEs Xarelto, changed over to eliquis -GERD PPI -Hyperlipidemia Lipitor -Primary osteoarthritis Tylenol as needed -Diabetes mellitus, type II Follow Accu-Cheks with sliding scale as needed -Obesity with a BMI of 37.3 Outpatient weight loss measures - factor V bleed and deficiency Xarelto changed over to eliquis because of renal function. -Full code *IV Lasix per nephrology today. Follow labs closely. Antibiotics to continue. Wound care. Past Medical History Past Medical History: Asthma, Blood Disorder, Cancer, Diabetes Mellitus, Deep Vein Thrombosis (DVT), GERD/Reflux, GI Bleed, Hyperlipidemia, Hypertension, Osteoarthritis (OA), Pneumonia, Pulmonary Embolus (PE), Thyroid Disorder Additional Past Medical History / Comment(s): occular migraines, SOB with activity, hx cellulitis x 5, clotting disorder-Factor V- Leiden, basal cell skin ca(folicular), heart murmur, kidney stones, edema rt leg, History of Any Multi-Drug Resistant Organisms: MRSA Date of last positivie culture/infection: 03/31/23 MDRO Source:: Right Foot Past Surgical History: Cholecystectomy, Hernia Repair, Tonsillectomy Additional Past Surgical History / Comment(s): 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 Smoking Status: Former smoker Past Alcohol Use History: Occasional Additional Past Alcohol Use History / Comment(s): Started smoking at age 17(1962) and quit age 30(1974). Past Drug Use History: None Reported - Past Family History Mother Family Medical History: No Reported History Additional Family Medical History / Comment(s): . Father Family Medical History: No Reported History Additional Family Medical History / Comment(s): age 72.
[2023-05-27 21:32] LABS: Glucose,Whole Blood 66 mg/dL (70-110)
[2023-05-27 21:51] LABS: Glucose,Whole Blood 84 mg/dL (70-110)
[2023-05-28] MEDS: FUROSEMIDE 10 MG/ML 10 ML VIAL IV SCH ×4 (02:00→23:39)
[2023-05-28] MEDS: LEVOTHYROXINE 100 MCG TAB PO SCH (05:15)
[2023-05-28] MEDS: ACETAMINOPHEN TAB 325 MG TAB PO PRN (05:18)
[2023-05-28 07:38] LABS: Glucose,Whole Blood 95 mg/dL (70-110)
[2023-05-28] MEDS: INSULIN ASPART (NovoLOG) 100 UNIT/ML VIAL SQ SCH ×4 (07:50→23:04)
[2023-05-28] MEDS: MIDODRINE 5 MG TAB PO SCH ×3 (08:01→18:11)
[2023-05-28 08:03] LABS: African American GFR (CKD) 14 (>60 ml/min/1.73 sqM); Anion Gap 15 mmol/L; Blood Urea Nitrogen 57 mg/dL (9-20); Calcium 8.4 mg/dL (8.4-10.2); Carbon Dioxide 20 mmol/L (22-30); Chloride 102 mmol/L (98-107); Glucose 95 mg/dL (74-99); Non-African American GFR(CKD) 12 (>60 ml/min/1.73 sqM); Potassium 4.3 mmol/L (3.5-5.1); Sodium 137 mmol/L (137-145)
[2023-05-28] MEDS: CEFEPIME 1 GM in SODIUM CHLORIDE 0.9% 50 ML IVPB SCH ×2 (08:04→20:05)
[2023-05-28] MEDS: SODIUM ZIRCONIUM CYCLOSILICATE 10 GM PACKET PO SCH (08:04)
[2023-05-28] MEDS: PSYLLIUM HUSK 100% 6 GM PACKET PO SCH ×2 (08:04→20:05)
[2023-05-28] MEDS: APIXABAN 2.5 MG TABLET PO SCH ×2 (08:05→20:05)
[2023-05-28] MEDS: SYMBICORT 80-4.5 MCG INHALER INHALATION SCH ×2 (08:32→19:52)
--- NOTE | 2023-05-28 09:13 | P.PN ---
Subjective Patient is seen in follow-up for acute kidney injury. On IV Lasix. Nonoliguric. Oral intake fair. No vomiting. Does admit to loose bowel moveme nts. Vital signs are stable. General: No acute distress. HEENT: Head exam is unremarkable. LUNGS: No audible rhonchi or wheezes. HEART: Rate and Rhythm are regular. ABDOMEN: Nontender, obese. EXTREMITITES: 2+ edema. No drainage. Objective - Vital Signs Vital signs: Vital Signs Temp 97.6 F 05/28/23 07:39 Pulse 71 05/28/23 07:39 Resp 22 05/28/23 07:39 BP 127/73 05/28/23 07:39 Pulse Ox 95 05/28/23 07:39 FiO2 Intake & Output 05/27/23 05/28/23 05/28/23 18:59 06:59 18:59 Intake Total 1370 610 Output Total 1490 200 300 Balance -120 410 -300 Intake: Intake, IV Titration 1010 Amount Cefepime 1 gm In Sodium 50 Chloride 0.9% 50 ml @ 12. 5 mls/hr IVPB Q12HR [facility] Rx#:[id number] Dextrose 5% in Water 1, 960 000 ml @ 80 mls/hr IV . [id number] [facility] with Sodium Bicarb (1 Meq/ml) 150 ml Rx#:[id number] Oral 360 610 Output: Urine 1460 200 300 Post Void Residual 30 Stool 0 0 Other: Voiding Method Bedside Commode Bedside Commode Urinal Urinal # Voids 1 # Bowel Movements 1 - Labs CBC & Chem 7: 05/24/23 05:49 05/28/23 06:37 Labs: Abnormal Lab Results - Last 24 Hours (Table) 05/27/23 05/27/23 05/27/23 Range/Units 12:24 14:16 17:55 Carbon Dioxide 18 L (22-30) mmol/L BUN 56 H (9-20) mg/dL Creatinine 4.44 H (0.66-1.25) mg/dL Glucose 158 H (74-99) mg/dL POC Glucose (mg/dL) 206 H 191 H (70-110) mg/dL 05/27/23 05/28/23 Range/Units 21:27 06:37 Carbon Dioxide 20 L (22-30) mmol/L BUN 57 H (9-20) mg/dL Creatinine 4.54 H (0.66-1.25) mg/dL Glucose (74-99) mg/dL POC Glucose (mg/dL) 66 L (70-110) mg/dL Assessment and Plan Plan: Assessment: 1. Acute kidney injury secondary to ATN secondary to vancomycin toxicity. No hydronephrosis noted on kidney ultrasound. Baseline creatinine near 1 from March 2023. Renal function fairly stable this admission. Nonoliguric. UA from March 2023 showed no proteinuria. 2. Hyperkalemia secondary to acute kidney injury, acidosis. Better. 3. Metabolic acidosis secondary to acute kidney injury maintain a normal bicarb. Better. 4. Volume overload. 5. Lower extremity cellulitis on antibiotics. 6. Acute on chronic systolic CHF with ejection fraction of 40-45% with severe aortic stenosis. Plan: Maintain IV Lasix. Stop lokelma. Low-salt diet and 1500 mL fluid restriction. Avoid nephrotoxins. Continue to monitor renal function and urine output. Hold midodrine for systolic blood pressure greater than 115.
[2023-05-28] MEDS: HYDROcodone/APAP 5-325MG 1 EACH TAB PO PRN (11:18)
[2023-05-28 12:13] LABS: Glucose,Whole Blood 151 mg/dL (70-110)
[2023-05-28 17:51] LABS: Glucose,Whole Blood 117 mg/dL (70-110)
[2023-05-28] MEDS: FERROUS SULFATE 325 MG TAB PO SCH (18:09)
--- NOTE | 2023-05-28 19:52 | P.PN ---
Progress Note - Text Progress Note Date: 05/28/23 This is a who presented to the emergency department for [facility] as patient was therefore continued PT/OT therapy along with IV antibiotics for right lower extremity cellulitis. Patient was sent here for increased creatinine and acute kidney injury. Baseline is normally 1.2 although was found to be 4.27. Patient's antibiotics were stopped as he was on vancomycin with consult to infectious disease and nephrology. Patient has a significant past medical history of asthma, blood disorder, cancer, diabetes mellitus, DVT, GERD, GI bleeds, hyperlipidemia, hypertension, estrogen arthritis, PE, factor V deficiency and multiple hospitalizations and episodes of cellulitis. Patient also with chronic peripheral vascular disease of bilateral lower extremity. Labs this morning reveal a BNP of 137 with a potassium of 5.3, BUN 44, creatinine is 4.2, glucose 145, urinalysis was positive for esterase and negative otherwise, random Vanco trough is 29.9. Patient to be admitted for infectious disease and nephrology evaluation. EKG showed atrial flutter with tachycardia and a renal ultrasound was done showing no hydronephrosis. Review Of Systems: Constitutional: No fever, no chills, no night sweats. No weight change. No weakness, fatigue or lethargy. No daytime sleepiness. EENT: No headache. No blurred vision or double vision, no loss of vision. No loss of Hearing, no ringing in the ears, no dizziness. No nasal drainage or congestion. No epistaxis. No sore throat. Lungs: No shortness of breath, cough, no sputum production. No wheezing. Cardiovascular: No chest pain, no lower extremity edema. No palpitations. No paroxysmal nocturnal dyspnea. No orthopnea. No lightheadedness or dizziness. No syncopal episodes. Abdominal: No abdominal pain. No nausea, vomiting. No diarrhea. No constipation. No bloody or tarry stools.. No loss of appetite. Genitourinary: No dysuria, increased frequency, urgency. No urinary retention. Musculoskeletal: No myalgias. No muscle weakness, no gait dysfunction, no frequent falls. No back pain. No neck pain. Integumentary: Reports chronic right lower extremity wounds that has been nonhealing, no lesions. No rash or pruritus. No unusual bruising. No change in hair or nails. Neurologic: No aphasia. No facial droop. No change in mentation. No head injury. No headache. No paralysis. No paresthesia. Psychiatric: No depression. No anxiety. No mood swings. Endocrine: No abnormal blood sugars. No weight change. No excessive sweating or thirst. No cold intolerance. May 25: Patient requested a change of attending, hence I'm taking over today. Patient complains of decreased appetite. Has one or 2 loose stools a day. I'm changing him from Questran over 2 Metamucil and see how he does. Patient is on IV cefepime. Patient has a known right diabetic foot infection with infected hematoma on her dorsal of the right foot. This was drained by Dr. Mendosa. Cultures were positive for MRSA and Pseudomonas. Was discharged on vancomycin and cefepime. Admitted with acute kidney injury felt to be secondary to vancomycin. Swished over to daptomycin. Local wound care. May 26: Patient breathing much better. Metamucil was added yesterday. Stool is more formed. Wound appears to be healing well. Patient is to go to rehab. Consult adoption social worker. Oral intake good. Up in a chair. May 27: Up in a chair. Breathing much improved. Bowels more formed. Getting wound care. Started on IV Lasix per nephrology. May 28: Up in chair. Breathing stable. On IV Lasix. Lower extremity edema felt to be predominantly venous insufficiency. Follow with nephrology Active Medications Acetaminophen (Acetaminophen Tab 325 Mg Tab) 650 mg PO Q4H PRN PRN Reason: GENERAL DISCOMFORT Last Admin: 05/28/23 05:18 Dose: 650 mg Hydrocodone Bitart/Acetaminophen (Hydrocodone/Apap 5-325mg 1 Each Tab) 1 each PO Q6HR PRN PRN Reason: Pain Last Admin: 05/28/23 11:18 Dose: 1 each Albuterol Sulfate (Albuterol Nebulized 2.5 Mg/3 Ml) 2.5 mg INHALATION RT-Q4H PRN PRN Reason: Shortness Of Breath Or Wheezing Last Admin: 05/24/23 15:30 Dose: 2.5 mg Apixaban (Apixaban 2.5 Mg Tablet) 2.5 mg PO BID [facility] Last Admin: 05/28/23 08:05 Dose: 2.5 mg Atorvastatin Calcium (Atorvastatin 10 Mg Tab) 10 mg PO DAILY@1700 [facility] Last Admin: 05/26/23 16:48 Dose: 10 mg Bisacodyl (Bisacodyl 10 Mg Supp) 10 mg RECTAL DAILY PRN PRN Reason: Constipation Budesonide/Formoterol Fumarate (Symbicort 80-4.5 Mcg Inhaler) 2 puff INHALATION RT-BID [facility] Last Admin: 05/28/23 08:32 Dose: 2 puff Dextrose/Water (Dextrose 50% Syringe 50 Ml) 25 ml IVP PER PROTOCOL PRN; Protocol PRN Reason: Hypoglycemia Dextrose/Water (Dextrose 50% Syringe 50 Ml) 50 ml IVP PER PROTOCOL PRN; Protocol PRN Reason: Hypoglycemia Diphenhydramine HCl (Diphenhydramine 25 Mg Cap) 25 mg PO Q6HR PRN PRN Reason: Itching Ferrous Sulfate (Ferrous Sulfate 325 Mg Tab) 325 mg PO DAILY@1700 [facility] Last Admin: 05/28/23 18:09 Dose: 325 mg Furosemide (Furosemide 10 Mg/Ml 10 Ml Vial) 60 mg IV Q8HR [facility] Last Admin: 05/28/23 16:06 Dose: 60 mg Daptomycin 550 mg/ Sodium (Chloride) 50 mls @ 100 mls/hr IVPB Q48H [facility]; Protocol Last Admin: 05/28/23 14:12 Dose: 100 mls/hr Cefepime HCl 1 gm/ Sodium (Chloride) 50 mls @ 12.5 mls/hr IVPB Q12HR [facility]; Protocol Last Admin: 05/28/23 08:04 Dose: 12.5 mls/hr Insulin Aspart (Insulin Aspart (Novolog) 100 Unit/Ml Vial) 0 unit SQ ACHS [facility]; Protocol Last Admin: 05/28/23 18:11 Dose: Not Given Levothyroxine Sodium (Levothyroxine 100 Mcg Tab) 200 mcg PO DAILY@0600 [facility] Last Admin: 05/28/23 05:15 Dose: 200 mcg Loperamide HCl (Loperamide 2 Mg Cap) 2 mg PO QID PRN PRN Reason: Loose Stool Midodrine (Midodrine 5 Mg Tab) 10 mg PO TID@0800,1200,1700 [facility] Last Admin: 05/28/23 18:11 Dose: Not Given Montelukast Sodium (Montelukast 10 Mg Tab) 10 mg PO HS@2100 [facility] Last Admin: 05/27/23 20:54 Dose: 10 mg Naloxone HCl (Naloxone 0.4 Mg/Ml 1 Ml Vial) 0.2 mg IV Q2M PRN PRN Reason: Opioid Reversal Ondansetron HCl (Ondansetron 4 Mg Tab) 4 mg PO Q6H PRN PRN Reason: Nausea And Vomiting Psyllium Hydrophilic Mucilloid (Psyllium Husk 100% 6 Gm Packet) 6 gm PO BID [facility] Last Admin: 05/28/23 08:04 Dose: 6 gm Testosterone Cypionate (Testosterone Cypionate 200 Mg/Ml 1ml Vial) 200 mg IM Q14D [facility] Last Admin: 05/27/23 10:52 Dose: Not Given On examination: VITAL SIGNS: 97.4, 68, 21, 11 9 x 6 53, 94% room air GENERAL APPEARANCE: Sitting up in chair, comfortable HEENT: Normal external appearance of nose and ear. Oral cavity normal EYES: Pupils equal. Conjunctiva normal. NECK: JVD not raised. Mass not palpable. RESPIRATORY: Respiratory effort increased. Lungs clear to auscultation. CARDIOVASCULAR: First and second sounds normal. Edema present ABDOMEN: Soft. Liver and spleen not palpable. No tenderness. No mass palpable. PSYCHIATRY: Alert and oriented x3. Mood and affect normal. EXTREMITY: Dry skin bilateral lower extremity. Venous insufficiency. Ichthyosis. Right foot wound -dorsum of the foot. Deep. No drainage. INVESTIGATIONS, reviewed in the clinical context: May 28: Potassium 4.3 BUN 57 creatinine 4.5 for May 27: Potassium 4.7 creatinine 4.44 Wound culture: Unremarkable May 26: Potassium 5.7 BUN 50 creatinine 4.34 bicarbonate 13 May 25: Potassium 5.6 BUN 47 creatinine 4.41 May 24: White count 10.4 hemoglobin 13.7 platelets 192 potassium 5.3 BUN 44 creatinine 4.20 bicarb 11 UA: Negative for nitrate. Leukoesterase positive. WBC greater than 182 EKG tracing personally reviewed by me-atrial flutter. Rate 71 Renal ultrasound: Corticomedullary differentiation maintained. By evidence of obstructive uropathy. Chest x-ray film personally reviewed by me-some pleural effusion. Questionable venous prominence. Assessment and plan: -Acute kidney injury most likely secondary to vancomycin toxicity : Vancomycin discontinued. Following with nephrology. Follow renal function -Right foot wound with cellulitis, with cultures positive for MRSA and Pseudomonas from last admission. This admission cultures negative. Recent debridement by Dr. Mendosa from vascular. IV cefepime. IV daptomycin. Also followed by ID. -Non-gap metabolic acidosis secondary to acute kidney injury: Improved IV bicarbonate-discontinued -Hyperkalemia associated with acidosis , renal failure: Corrected Renal diet. Lokelma Kayexalate -Chronic hypotension maintained on midodrine -Chronic lower extremity venous insufficiency -Chronic DVT and PEs Xarelto, changed over to eliquis -GERD PPI -Hyperlipidemia Lipitor -Primary osteoarthritis Tylenol as needed -Diabetes mellitus, type II Follow Accu-Cheks with sliding scale as needed -Obesity with a BMI of 37.3 Outpatient weight loss measures - factor V bleed and deficiency Xarelto changed over to eliquis because of renal function. -Full code *IV Lasix per nephrology continue. Discussed with nephrology. Follow. Patient will be going to rehab ECF. Past Medical History Past Medical History: Asthma, Blood Disorder, Cancer, Diabetes Mellitus, Deep Vein Thrombosis (DVT), GERD/Reflux, GI Bleed, Hyperlipidemia, Hypertension, Osteoarthritis (OA), Pneumonia, Pulmonary Embolus (PE), Thyroid Disorder Additional Past Medical History / Comment(s): occular migraines, SOB with activity, hx cellulitis x 5, clotting disorder-Factor V- Leiden, basal cell skin ca(folicular), heart murmur, kidney stones, edema rt leg, History of Any Multi-Drug Resistant Organisms: MRSA Date of last positivie culture/infection: 03/31/23 MDRO Source:: Right Foot Past Surgical History: Cholecystectomy, Hernia Repair, Tonsillectomy Additional Past Surgical History / Comment(s): 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 Smoking Status: Former smoker Past Alcohol Use History: Occasional Additional Past Alcohol Use History / Comment(s): Started smoking at age 17(1962) and quit age 30(1974). Past Drug Use History: None Reported - Past Family History Mother Family Medical History: No Reported History Additional Family Medical History / Comment(s): . Father Family Medical History: No Reported History Additional Family Medical History / Comment(s): age 72.
[2023-05-28] MEDS: MONTELUKAST 10 MG TAB PO SCH (20:05)
[2023-05-28 20:21] LABS: Glucose,Whole Blood 145 mg/dL (70-110)
[2023-05-28 21:12] VITALS: RESP 18
[2023-05-29] MEDS: ACETAMINOPHEN TAB 325 MG TAB PO PRN (04:02)
[2023-05-29] MEDS: LEVOTHYROXINE 100 MCG TAB PO SCH (05:15)
[2023-05-29 08:06] LABS: Glucose,Whole Blood 125 mg/dL (70-110)
[2023-05-29] MEDS: MIDODRINE 5 MG TAB PO SCH ×2 (08:31→13:29)
[2023-05-29] MEDS: INSULIN ASPART (NovoLOG) 100 UNIT/ML VIAL SQ SCH ×2 (08:31→13:29)
[2023-05-29] MEDS: PSYLLIUM HUSK 100% 6 GM PACKET PO SCH (08:31)
[2023-05-29] MEDS: APIXABAN 2.5 MG TABLET PO SCH (08:31)
[2023-05-29] MEDS: CEFEPIME 1 GM in SODIUM CHLORIDE 0.9% 50 ML IVPB SCH (08:31)
[2023-05-29] MEDS: FUROSEMIDE 10 MG/ML 10 ML VIAL IV SCH (08:31)
[2023-05-29] MEDS: SYMBICORT 80-4.5 MCG INHALER INHALATION SCH (08:40)
[2023-05-29 08:52] VITALS: PULSE 69
--- NOTE | 2023-05-29 10:07 | P.PN ---
Subjective Patient is seen in follow-up for acute kidney injury. On IV Lasix. Nonoliguric. Oral intake fair. No vomiting. Does admit to loose bowel moveme nts. Hemodynamically stable. Vital signs are stable. General: No acute distress. HEENT: Head exam is unremarkable. LUNGS: No audible rhonchi or wheezes. HEART: Rate and Rhythm are regular. ABDOMEN: Nontender, obese. EXTREMITITES: 2+ edema. Lower extremities wrapped. No drainage. Objective - Vital Signs Vital signs: Vital Signs Temp 97.6 F 05/29/23 07:52 Pulse 69 05/29/23 07:52 Resp 18 05/29/23 07:52 BP 112/61 05/29/23 07:52 Pulse Ox 96 05/29/23 07:52 FiO2 Intake & Output 05/28/23 05/29/23 05/29/23 18:59 06:59 18:59 Intake Total 1393 Output Total 833 300 Balance -833 1093 Intake: Intake, IV Titration 50 Amount Cefepime 1 gm In Sodium 50 Chloride 0.9% 50 ml @ 12. 5 mls/hr IVPB Q12HR [facility] Rx#:[id number] Oral 1343 Output: Urine 725 300 Post Void Residual 108 Other: Voiding Method Bedside Commode Bedside Commode Urinal Urinal Urinal # Voids 2 3 # Bowel Movements 1 1 - Labs CBC & Chem 7: 05/24/23 05:49 05/28/23 06:37 Labs: Abnormal Lab Results - Last 24 Hours (Table) 05/28/23 05/28/23 05/28/23 Range/Units 12:11 17:45 20:19 POC Glucose (mg/dL) 151 H 117 H 145 H (70-110) mg/dL 05/29/23 Range/Units 07:56 POC Glucose (mg/dL) 125 H (70-110) mg/dL Microbiology - Last 24 Hours (Table) 05/23/23 21:30 Blood Culture - Final Blood 05/23/23 21:15 Blood Culture - Final Blood 05/23/23 23:18 Anaerobic Culture - Final Foot - Right Assessment and Plan Plan: Assessment: 1. Acute kidney injury secondary to ATN secondary to vancomycin toxicity. No hydronephrosis noted on kidney ultrasound. Baseline creatinine near 1 from March 2023. Renal function fairly stable this admission. Nonoliguric. UA from March 2023 showed no proteinuria. 2. Hyperkalemia secondary to acute kidney injury, acidosis. Better. 3. Metabolic acidosis secondary to acute kidney injury maintained on normal bicarb. Better. 4. Volume overload. 5. Lower extremity cellulitis on antibiotics. 6. Acute on chronic systolic CHF with ejection fraction of 40-45% with severe aortic stenosis. Plan: Stop IV Lasix. Add torsemide 40 mg once daily. Stop lokelma. Low-salt diet and 1500 mL fluid restriction. Avoid nephrotoxins. Continue to monitor renal function and urine output. Hold midodrine for systolic blood pressure greater than 115. Repeat BMP and magnesium level 2-3 days postdischarge. Follow up outpatient in 1 week.
[2023-05-29] MEDS ORDERED: TORSEMIDE 20 MG TAB PO SCH (10:15)
[2023-05-29 13:10] LABS: Glucose,Whole Blood 122 mg/dL (70-110)
--- NOTE | 2023-05-29 13:18 | P.DS ---
Providers Date of admission: 05/23/23 23:15 Expected date of discharge: 05/29/23 Attending physician: Yuri Boyer Consults: 05/23/23 23:15 Consult Physician Routine Consulting Provider: Charisma Silva Consult Reason/Comments: RLE cellulitis, ARF possible from vancomycin Do you want consulting provider notified?: Yes Consult Physician Routine Consulting Provider: Dolly Douglas Consult Reason/Comments: acute renal failure, suspect 2/2 antibiotics Do you want consulting provider notified?: Yes Primary care physician: Tatyana Miriam Hospital Course: This is a who presented to the emergency department for [facility] as patient was therefore continued PT/OT therapy along with IV antibiotics for right lower extremity cellulitis. Patient was sent here for increased cr eatinine and acute kidney injury. Baseline is normally 1.2 although was found to be 4.27. Patient's antibiotics were stopped as he was on vancomycin with consult to infectious disease and nephrology. Patient has a significant past medical history of asthma, blood disorder, cancer, diabetes mellitus, DVT, GERD, GI bleeds, hyperlipidemia, hypertension, estrogen arthritis, PE, factor V deficiency and multiple hospitalizations and episodes of cellulitis. Patient also with chronic peripheral vascular disease of bilateral lower extremity. Labs this morning reveal a BNP of 137 with a potassium of 5.3, BUN 44, creatinine is 4.2, glucose 145, urinalysis was positive for esterase and negative otherwise, random Vanco trough is 29.9. Patient to be admitted for infectious disease and nephrology evaluation. EKG showed atrial flutter with tachycardia and a renal ultrasound was done showing no hydronephrosis. Review Of Systems: Constitutional: No fever, no chills, no night sweats. No weight change. No weakness, fatigue or lethargy. No daytime sleepiness. EENT: No headache. No blurred vision or double vision, no loss of vision. No loss of Hearing, no ringing in the ears, no dizziness. No nasal drainage or congestion. No epistaxis. No sore throat. Lungs: No shortness of breath, cough, no sputum production. No wheezing. Cardiovascular: No chest pain, no lower extremity edema. No palpitations. No paroxysmal nocturnal dyspnea. No orthopnea. No lightheadedness or dizziness. No syncopal episodes. Abdominal: No abdominal pain. No nausea, vomiting. No diarrhea. No constipat ion. No bloody or tarry stools.. No loss of appetite. Genitourinary: No dysuria, increased frequency, urgency. No urinary retention. Musculoskeletal: No myalgias. No muscle weakness, no gait dysfunction, no frequent falls. No back pain. No neck pain. Integumentary: Reports chronic right lower extremity wounds that has been nonhealing, no lesions. No rash or pruritus. No unusual bruising. No change in hair or nails. Neurologic: No aphasia. No facial droop. No change in mentation. No head injury. No headache. No paralysis. No paresthesia. Psychiatric: No depression. No anxiety. No mood swings. Endocrine: No abnormal blood sugars. No weight change. No excessive sweating or thirst. No cold intolerance. May 25: Patient requested a change of attending, hence I'm taking over today. Patient complains of decreased appetite. Has one or 2 loose stools a day. I'm changing him from Questran over 2 Metamucil and see how he does. Patient is on IV cefepime. Patient has a known right diabetic foot infection with infected hematoma on her dorsal of the right foot. This was drained by Dr. Mendosa. Cultures were positive for MRSA and Pseudomonas. Was discharged on vancomycin and cefepime. Admitted with acute kidney injury felt to be secondary to vancomycin. Swished over to daptomycin. Local wound care. May 26: Patient breathing much better. Metamucil was added yesterday. Stool is more formed. Wound appears to be healing well. Patient is to go to rehab. Consult social worker assistant. Oral intake good. Up in a chair. May 27: Up in a chair. Breathing much improved. Bowels more formed. Getting wound care. Started on IV Lasix per nephrology. May 28: Up in chair. Breathing stable. On IV Lasix. Lower extremity edema felt to be predominantly venous insufficiency. Follow with nephrology May 29: Up in a chair. Eating fair. Cleared by nephrology. Discussed at length with the patient. Overall prognosis guarded. Complete antibiotics per ID. Discharged to rehab. Follow-up with nephrology, ID, vascular. Discussion and discharge planning more than 35 minutes On examination: VITAL SIGNS: 97.6, 69, 18, 112/61, 96% room air GENERAL APPEARANCE: Sitting up in chair, comfortable HEENT: Normal external appearance of nose and ear. Oral cavity normal EYES: Pupils equal. Conjunctiva normal. NECK: JVD not raised. Mass not palpable. RESPIRATORY: Respiratory effort increased. Lungs clear to auscultation. CARDIOVASCULAR: First and second sounds normal. Edema present ABDOMEN: Soft. Liver and spleen not palpable. No tenderness. No mass palpable. PSYCHIATRY: Alert and oriented x3. Mood and affect normal. EXTREMITY: Dry skin bilateral lower extremity. Venous insufficiency. Ichthyosis. Right foot wound -dorsum of the foot. Deep. No drainage. INVESTIGATIONS, reviewed in the clinical context: May 28: Potassium 4.3 BUN 57 creatinine 4.5 for May 27: Potassium 4.7 creatinine 4.44 Wound culture: Unremarkable May 26: Potassium 5.7 BUN 50 creatinine 4.34 bicarbonate 13 May 25: Potassium 5.6 BUN 47 creatinine 4.41 May 24: White count 10.4 hemoglobin 13.7 platelets 192 potassium 5.3 BUN 44 creatinine 4.20 bicarb 11 UA: Negative for nitrate. Leukoesterase positive. WBC greater than 182 EKG tracing personally reviewed by me-atrial flutter. Rate 71 Renal ultrasound: Corticomedullary differentiation maintained. By evidence of obstructive uropathy. Chest x-ray film personally reviewed by me-some pleural effusion. Questionable venous prominence. Assessment and plan: -Acute kidney injury most likely secondary to vancomycin toxicity : Vancomycin discontinued. Following with nephrology. Follow renal function -Right foot wound with cellulitis, with cultures positive for MRSA and Pseudom onas from last admission. This admission cultures negative. Recent debridement by Dr. Mendosa from vascular. IV cefepime. IV daptomycin. Also followed by ID. Doxycycline 100 mg every 12 for 10 days, ciprofloxacin 500 mg daily for 10 days per ID -Non-gap metabolic acidosis secondary to acute kidney injury: Improved IV bicarbonate-discontinued -Hyperkalemia associated with acidosis , renal failure: Corrected Renal diet. Lokelma Kayexalate -Chronic hypotension maintained on midodrine -Chronic lower extremity venous insufficiency -Chronic DVT and PEs eliquis -GERD PPI -Hyperlipidemia Lipitor -Primary osteoarthritis Tylenol as needed -Diabetes mellitus, type II Follow Accu-Cheks with sliding scale as needed -Obesity with a BMI of 37.3 Outpatient weight loss measures - factor V bleed and deficiency Xarelto changed over to eliquis because of renal function. -Full code Disposition: [facility] Past Medical History Past Medical History: Asthma, Blood Disorder, Cancer, Diabetes Mellitus, Deep Vein Thrombosis (DVT), GERD/Reflux, GI Bleed, Hyperlipidemia, Hypertension, Osteoarthritis (OA), Pneumonia, Pulmonary Embolus (PE), Thyroid Disorder Additional Past Medical History / Comment(s): occular migraines, SOB with activity, hx cellulitis x 5, clotting disorder-Factor V- Leiden, basal cell skin ca(folicular), heart murmur, kidney stones, edema rt leg, History of Any Multi-Drug Resistant Organisms: MRSA Date of last positivie culture/infection: 03/31/23 MDRO Source:: Right Foot Past Surgical History: Cholecystectomy, Hernia Repair, Tonsillectomy Additional Past Surgical History / Comment(s): 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 Smoking Status: Former smoker Past Alcohol Use History: Occasional Additional Past Alcohol Use History / Comment(s): Started smoking at age 17(1962) and quit age 30(1974). Past Drug Use History: None Reported - Past Family History Mother Family Medical History: No Reported History Additional Family Medical History / Comment(s): . Father Family Medical History: No Reported History Additional Family Medical History / Comment(s): age 72. Patient Condition at Discharge: Stable Plan - Discharge Summary Discharge Rx Participant: No New Discharge Prescriptions: New Torsemide [Demadex] 40 mg PO DAILY tab Apixaban [Eliquis] 2.5 mg PO BID tab Doxycycline Hyclate 100 mg PO Q12H 10 Days #20 tab Psyllium Husk 100% [Metamucil Packet] 6 gm PO BID packet Ciprofloxacin HCl [Cipro] 500 mg PO Q24H 10 Days #10 tab Continue Atorvastatin [Lipitor] 10 mg PO DAILY@1700 Levothyroxine Sodium [Synthroid] 200 mcg PO DAILY@0600 Montelukast Sodium [Singulair] 10 mg PO HS@2100 tiZANidine HCL [Zanaflex] 4 mg PO TID PRN PRN Reason: Muscle Spasm Albuterol Sulfate [Ventolin HFA] 2 puff INHALATION RT-Q4H #0 Fluticasone/Vilanterol [Breo Ellipta 100-25 Mcg Inhaler] 1 puff INHALATION RT-DAILY@0800 Ondansetron [Zofran] 4 mg PO Q6H PRN PRN Reason: Nausea And Vomiting Magnesium Hydroxide [Milk of Magnesia Concentrate] 30 ml PO Q48H PRN PRN Reason: Constipation Loperamide [Imodium] 2 mg PO QID PRN PRN Reason: Loose Stool diphenhydrAMINE HCL [Benadryl] 25 mg PO Q6HR PRN PRN Reason: Itching bisacodyL [Dulcolax] 10 mg RECTAL DAILY PRN PRN Reason: Constipation Glucerna Shake 237 ml PO TID@0800,1200,1700 HYDROcodone/APAP 5-325MG [[place] 5-325] 1 tab PO Q6HR PRN #12 tab PRN Reason: Pain Testosterone Cypionate [Depo-Testosterone] 200 mg IM Q14D Omeprazole [PriLOSEC] 20 mg PO DAILY@0600 Na Phos,M-B/Na Phos,Di-Ba [Fleet Adult] 133 ml RECTAL DAILY PRN PRN Reason: Constipation Acetaminophen [Tylenol 8 Hour] 650 mg PO Q4H PRN PRN Reason: GENERAL DISCOMFORT Midodrine [ProAmatine] 10 mg PO TID@0800,1200,1700 Ferrous Sulfate [Iron] 325 mg PO DAILY@1700 Discontinued Cholestyramine (with Sugar) [Questran Packet] 4 gm PO BID@1000,1800 #14 packet Furosemide [Lasix] 40 mg PO DAILY@0800 Vancomycin Hcl Intravenous Solution 1,500 mg IV Q48H Rivaroxaban [Xarelto] 20 mg PO DAILY@1700 Discharge Medication List Atorvastatin [Lipitor] 10 mg PO DAILY@1700 10/04/17 [History] Levothyroxine Sodium [Synthroid] 200 mcg PO DAILY@0600 10/20/19 [History] Montelukast Sodium [Singulair] 10 mg PO HS@2100 10/20/19 [History] tiZANidine HCL [Zanaflex] 4 mg PO TID PRN 03/31/20 [History] Albuterol Sulfate [Ventolin HFA] 2 puff INHALATION RT-Q4H #0 07/07/22 [Rx] Omeprazole [PriLOSEC] 20 mg PO DAILY@0600 03/25/23 [History] Testosterone Cypionate [Depo-Testosterone] 200 mg IM Q14D 03/25/23 [History] Fluticasone/Vilanterol [Breo Ellipta 100-25 Mcg Inhaler] 1 puff INHALATION RT- DAILY@0800 03/26/23 [History] Acetaminophen [Tylenol 8 Hour] 650 mg PO Q4H PRN 05/23/23 [History] Ferrous Sulfate [Iron] 325 mg PO DAILY@1700 05/23/23 [History] Glucerna Shake 237 ml PO TID@0800,1200,1700 05/23/23 [History] Loperamide [Imodium] 2 mg PO QID PRN 05/23/23 [History] Magnesium Hydroxide [Milk of Magnesia Concentrate] 30 ml PO Q48H PRN 05/23/23 [History] Midodrine [ProAmatine] 10 mg PO TID@0800,1200,1700 05/23/23 [History] Na Phos,M-B/Na Phos,Di-Ba [Fleet Adult] 133 ml RECTAL DAILY PRN 05/23/23 [History] Ondansetron [Zofran] 4 mg PO Q6H PRN 05/23/23 [History] bisacodyL [Dulcolax] 10 mg RECTAL DAILY PRN 05/23/23 [History] diphenhydrAMINE HCL [Benadryl] 25 mg PO Q6HR PRN 05/23/23 [History] Apixaban [Eliquis] 2.5 mg PO BID tab 05/29/23 [Rx] Ciprofloxacin HCl [Cipro] 500 mg PO Q24H 10 Days #10 tab 05/29/23 [Rx] Doxycycline Hyclate 100 mg PO Q12H 10 Days #20 tab 05/29/23 [Rx] HYDROcodone/APAP 5-325MG [[place] 5-325] 1 tab PO Q6HR PRN #12 tab 05/29/23 [Rx] Psyllium Husk 100% [Metamucil Packet] 6 gm PO BID packet 05/29/23 [Rx] Torsemide [Demadex] 40 mg PO DAILY tab 05/29/23 [Rx] Follow up Appointment(s)/Referral(s): Tatyana Mora MD [Primary Care Provider] - 1-2 days [facility] [NON-STAFF] - 1 Week Activity/Diet/Wound Care/Special Instructions: Per Dr. Silva apply therahoney sheets to RLE/R Foot daily, wrap kerlix and GIGI wrap
[2023-05-29 13:37] VITALS: BP 129/68; TEMP 97.5
--- NOTE | 2023-05-29 14:58 | P.PN ---
Subjective Progress Note Date: 05/27/23 Principal diagnosis: Right diabetic foot wound and osteomyelitis Patient is a 78-year-old male with a past medical history significant for hypertension hyperlipidemia diabetes mellitus DVT did have a history of lower extremity venous stasis ulcers and cellulitis patient was recently admitted to this hospital and did have a infected right foot wound on the dorsal aspect status post surgical debridement by Dr. Mendosa patient wound was extended down to the bone with concern for underlying osteomyelitis patient local cultures were finalized with MRSA and Pseudomonas , patient was getting cefepime and vancomycin as a local fpc now being admitted to the hosp [facility] with worsening of his kidney function. On today's evaluation that is 05/27/2023, the patient continues to be afebrile, , the patient is breathing comfortably on room air , the patient denies chest pain and no significant cough, patient denies abdominal pain, nausea or vomiting and no diarrhea has been reported by the nursing staff, patient denies pain to the right foot wound area, no new symptoms Patient did have white count of 10.4 as of 05/24/2023 and a creatinine is 4.44 as of this morning Objective - Vital Signs Vital signs: Vital Signs Temp 97.5 F L 05/27/23 20:00 Pulse 79 05/27/23 20:00 Resp 20 05/27/23 20:00 BP 126/82 05/27/23 20:00 Pulse Ox 95 05/27/23 20:00 FiO2 Intake & Output 05/27/23 05/27/23 05/28/23 06:59 18:59 06:59 Intake Total 120 1370 Output Total 1490 Balance 120 -120 Intake: Intake, IV Titration 1010 Amount Cefepime 1 gm In Sodium 50 Chloride 0.9% 50 ml @ 12. 5 mls/hr IVPB Q12HR [facility] Rx#:[id number] Dextrose 5% in Water 1, 960 000 ml @ 80 mls/hr IV . [id number] [facility] with Sodium Bicarb (1 Meq/ml) 150 ml Rx#:[id number] Oral 120 360 Output: Urine 1460 Post Void Residual 30 Stool 0 Other: Voiding Method Bedside Commode Bedside Commode Urinal Urinal # Voids 1 # Bowel Movements 1 - Exam GENERAL DESCRIPTION: An elderly male lying in bed in no distress RESPIRATORY SYSTEM: Unlabored breathing , decreased breath sounds at bases HEART: S1 S2 regular rate and rhythm , ABDOMEN: Soft , no tenderness EXTREMITIES: Right foot wound is dressed no drainage on the dressing - Labs CBC & Chem 7: 05/24/23 05:49 05/28/23 06:37 Labs: Abnormal Lab Results - Last 24 Hours (Table) 05/27/23 05/27/23 05/27/23 Range/Units 07:53 12:24 14:16 Carbon Dioxide 18 L (22-30) mmol/L BUN 56 H (9-20) mg/dL Creatinine 4.44 H (0.66-1.25) mg/dL Glucose 158 H (74-99) mg/dL POC Glucose (mg/dL) 155 H 206 H (70-110) mg/dL 05/27/23 Range/Units 17:55 Carbon Dioxide (22-30) mmol/L BUN (9-20) mg/dL Creatinine (0.66-1.25) mg/dL Glucose (74-99) mg/dL POC Glucose (mg/dL) 191 H (70-110) mg/dL Microbiology - Last 24 Hours (Table) 05/23/23 21:30 Blood Culture - Preliminary Blood 05/23/23 21:15 Blood Culture - Preliminary Blood Assessment and Plan (1) Diabetic leg ulcer Status: Acute Code(s): E11.622 - TYPE 2 DIABETES MELLITUS WITH OTHER SKIN ULCER; L97.909 - NON-PRS CHRONIC ULC UNSP PRT OF UNSP LOW LEG W UNSP SEVERITY SNOMED Code(s): 819022814 Plan: 1patient with a right diabetic foot infection with an infected hematoma on the dorsal aspect of the right foot that was drained wound culture positive for MRSA and Pseudomonas for the patient was getting vancomycin and cefepime at the local fpc now being admitted to the hospital with acute renal failure likely related to the vancomycin which has been discontinued and nephrology has been consulted. 2local wound care with the dry Aquacel dressing change every 48 hour. 3- patient to continue with daptomycin and cefepime , while waiting for the kidney function to improve Dictation was produced using [employer] dictation software. please excuse any grammatical, word or spelling errors. Time with Patient: Less than 30
--- NOTE | 2023-05-29 14:59 | P.PN ---
Subjective Progress Note Date: 05/28/23 Principal diagnosis: Right diabetic foot wound and osteomyelitis Patient is a 78-year-old male with a past medical history significant for hypertension hyperlipidemia diabetes mellitus DVT did have a history of lower extremity venous stasis ulcers and cellulitis patient was recently admitted to this hospital and did have a infected right foot wound on the dorsal aspect status post surgical debridement by Dr. Mendosa patient wound was extended down to the bone with concern for underlying osteomyelitis patient local cultures were finalized with MRSA and Pseudomonas , patient was getting cefepime and vancomycin as a local fci now being admitted to the [facility] with worsening of his kidney function. On today's evaluation that is 05/28/2023, the patient denies any fever or any chills , the patient is breathing comfortably on room air , the patient denies chest pain or cough, patient denies ausea or vomiting and no abdominal pain, no diarrhea , the patient denies pain to the right foot wound area Patient did have white count of 10.4 as of 05/24/2023 and a creatinine 4.54 Objective - Vital Signs Vital signs: Vital Signs Temp 97.4 F L 05/28/23 12:45 Pulse 68 05/28/23 12:45 Resp 21 05/28/23 12:45 BP 119/53 05/28/23 12:45 Pulse Ox 94 L 05/28/23 12:45 FiO2 Intake & Output 05/27/23 05/28/23 05/28/23 18:59 06:59 18:59 Intake Total 1370 610 Output Total 1490 200 725 Balance -120 410 -725 Intake: Intake, IV Titration 1010 Amount Cefepime 1 gm In Sodium 50 Chloride 0.9% 50 ml @ 12. 5 mls/hr IVPB Q12HR [facility] Rx#:[id number] Dextrose 5% in Water 1, 960 000 ml @ 80 mls/hr IV . [id number] [facility] with Sodium Bicarb (1 Meq/ml) 150 ml Rx#:[id number] Oral 360 610 Output: Urine 1460 200 725 Post Void Residual 30 Stool 0 0 Other: Voiding Method Bedside Commode Bedside Commode Bedside Commode Urinal Urinal Urinal # Voids 2 # Bowel Movements 1 - Exam GENERAL DESCRIPTION: An elderly male lying in bed in no distress RESPIRATORY SYSTEM: Unlabored breathing , decreased breath sounds at bases HEART: S1 S2 regular rate and rhythm , ABDOMEN: Soft , no tenderness EXTREMITIES: Right foot wound base with some slough tissue no surrounding redness or foul-smelling drainage - Labs CBC & Chem 7: 05/24/23 05:49 05/28/23 06:37 Labs: Abnormal Lab Results - Last 24 Hours (Table) 05/27/23 05/27/23 05/28/23 Range/Units 17:55 21:27 06:37 Carbon Dioxide 20 L (22-30) mmol/L BUN 57 H (9-20) mg/dL Creatinine 4.54 H (0.66-1.25) mg/dL POC Glucose (mg/dL) 191 H 66 L (70-110) mg/dL 05/28/23 Range/Units 12:11 Carbon Dioxide (22-30) mmol/L BUN (9-20) mg/dL Creatinine (0.66-1.25) mg/dL POC Glucose (mg/dL) 151 H (70-110) mg/dL Microbiology - Last 24 Hours (Table) 05/23/23 23:18 Anaerobic Culture - Final Foot - Right Assessment and Plan (1) Diabetic leg ulcer Status: Acute Code(s): E11.622 - TYPE 2 DIABETES MELLITUS WITH OTHER SKIN ULCE R; L97.909 - NON-PRS CHRONIC ULC UNSP PRT OF UNSP LOW LEG W UNSP SEVERITY SNOMED Code(s): 419911147 Plan: 1patient with a right diabetic foot infection with an infected hematoma on the dorsal aspect of the right foot that was drained wound culture positive for MRSA and Pseudomonas for the patient was getting vancomycin and cefepime at the local fci now being admitted to the hospital with acute renal failure likely related to the vancomycin which has been discontinued and nephrology has been consulted. 2local wound care will be switched over to the [place] followed by moist dressing change daily 3- patient to continue with daptomycin and cefepime , with negative cultures May not need to continue with IV antibiotic on discharge Dictation was produced using [employer] dictation software. please excuse any grammatical, word or spelling errors. Time with Patient: Less than 30
--- NOTE | 2023-05-29 15:02 | P.PN ---
Subjective Progress Note Date: 05/29/23 Principal diagnosis: Right diabetic foot wound and osteomyelitis Patient is a 78-year-old male with a past medical history significant for hypertension hyperlipidemia diabetes mellitus DVT did have a history of lower extremity venous stasis ulcers and cellulitis patient was recently admitted to this hospital and did have a infected right foot wound on the dorsal aspect status post surgical debridement by Dr. Mendosa patient wound was extended down to the bone with concern for underlying osteomyelitis patient local cultures were finalized with MRSA and Pseudomonas , patient was getting cefepime and vancomycin as a local [facility] now being admitted to the [facility] with worsening of his kidney function. On today's evaluation that is 05/29/2023, the patient remains to be afebrile, the patient is breathing comfortably without need for supplemental oxygen , the patient denies chest pain and no significant cough, patient denies nausea/vomiting /diarrhea and denies abdominal pain, the patient denies pain to the right foot wound area Patient did have white count of 10.4 as of 05/24/2023 and a creatinine 4.54 as of yesterday no BMP was done today Objective - Vital Signs Vital signs: Vital Signs Temp 97.6 F 05/29/23 07:52 Pulse 69 05/29/23 07:52 Resp 18 05/29/23 07:52 BP 112/61 05/29/23 07:52 Pulse Ox 96 05/29/23 07:52 FiO2 Intake & Output 05/28/23 05/29/23 05/29/23 18:59 06:59 18:59 Intake Total 1393 Output Total 833 300 500 Balance -833 1093 -500 Intake: Intake, IV Titration 50 Amount Cefepime 1 gm In Sodium 50 Chloride 0.9% 50 ml @ 12. 5 mls/hr IVPB Q12HR [facility] Rx#:[id number] Oral 1343 Output: Urine 725 300 500 Post Void Residual 108 Other: Voiding Method Bedside Commode Bedside Commode Urinal Urinal Urinal # Voids 2 3 # Bowel Movements 1 1 - Exam GENERAL DESCRIPTION: An elderly male lying in bed in no distress RESPIRATORY SYSTEM: Unlabored breathing , decreased breath sounds at bases HEART: S1 S2 regular rate and rhythm , ABDOMEN: Soft , no tenderness EXTREMITIES: Right foot wound is dressed no drainage - Labs CBC & Chem 7: 05/24/23 05:49 05/28/23 06:37 Labs: Abnormal Lab Results - Last 24 Hours (Table) 05/28/23 05/28/23 05/29/23 Range/Units 17:45 20:19 07:56 POC Glucose (mg/dL) 117 H 145 H 125 H (70-110) mg/dL 05/29/23 Range/Units 13:07 POC Glucose (mg/dL) 122 H (70-110) mg/dL Microbiology - Last 24 Hours (Table) 05/23/23 21:30 Blood Culture - Final Blood 05/23/23 21:15 Blood Culture - Final Blood 05/23/23 23:18 Anaerobic Culture - Final Foot - Right Assessment and Plan (1) Diabetic leg ulcer Status: Acute Code(s): E11.622 - TYPE 2 DIABETES MELLITUS WITH OTHER SKIN ULCER; L97.909 - NON-PRS CHRONIC ULC UNSP PRT OF UNSP LOW LEG W UNSP SEVERITY SNOMED Code(s): 373916517 Plan: 1patient with a right diabetic foot infection with an infected hematoma on the dorsal aspect of the right foot that was drained wound culture positive for MRSA and Pseudomonas for the patient was getting vancomycin and cefepime at the local [facility] now being admitted to the hospital with acute renal failure likely related to the vancomycin which has been discontinued and nephrology has been consulted. 2local wound care [facility] followed by moist dressing change daily 3- patient culture has been negative and the patient has received almost 8 weeks of IV antibiotic therapy, we will discontinue PICC line and discontinue daptomycin and cefepime , will give a short course of oral Cipro and doxycycline no discharge Dictation was produced using [employer] dictation software. please excuse any grammatical, word or spelling errors. Time with Patient: Less than 30
[2023-05-29 16:43] LABS: Magnesium 2.2 mg/dL (1.5-2.4)
[2023-05-29 16:44] LABS: BUN/Creat Ratio 12.58 Ratio (12.00-20.00); Blood Urea Nitrogen 56.6 mg/dL (9.0-27.0); Calcium 8.7 mg/dL (8.7-10.3); Carbon Dioxide 19.7 mmol/L (21.6-31.8); Chloride 101 mmol/L (96-109); Glucose 128 mg/dL (70-110); Potassium 4.1 mmol/L (3.5-5.5); Sodium 139 mmol/L (135-145)
== END 2023-05-29 14:00 | DRG 682 ==
LOC: EC 20:09 → 5NMEDONC 23:15
PROVIDERS: ADMIT Hospitalist; ATTEND Hospitalist
DX: N17.0 Acute kidney failure with tubular necrosis (principal); I50.23 Acute on chronic systolic (congestive) heart failure; D68.2 Hereditary deficiency of other clotting factors; M86.9 Osteomyelitis, unspecified; I48.92 Unspecified atrial flutter; L03.115 Cellulitis of right lower limb; I13.0 Hypertensive heart and chronic kidney disease with heart failure and stage 1 through stage 4 chronic kidney disease, or unspecified chronic kidney disease; N14.19 Nephropathy induced by other drugs, medicaments and biological substances; T36.8X5A Adverse effect of other systemic antibiotics, initial encounter; E11.22 Type 2 diabetes mellitus with diabetic chronic kidney disease; E11.51 Type 2 diabetes mellitus with diabetic peripheral angiopathy without gangrene; E11.622 Type 2 diabetes mellitus with other skin ulcer; E11.69 Type 2 diabetes mellitus with other specified complication; B96.5 Pseudomonas (aeruginosa) (mallei) (pseudomallei) as the cause of diseases classified elsewhere; B95.62 Methicillin resistant Staphylococcus aureus infection as the cause of diseases classified elsewhere; E66.9 Obesity, unspecified; J45.909 Unspecified asthma, uncomplicated; N18.30 Chronic kidney disease, stage 3 unspecified; E11.628 Type 2 diabetes mellitus with other skin complications; I95.89 Other hypotension; L97.519 Non-pressure chronic ulcer of other part of right foot with unspecified severity; I35.0 Nonrheumatic aortic (valve) stenosis; Z68.37 Body mass index [BMI] 37.0-37.9, adult; I87.2 Venous insufficiency (chronic) (peripheral); Z87.01 Personal history of pneumonia (recurrent); K21.9 Gastro-esophageal reflux disease without esophagitis; M19.91 Primary osteoarthritis, unspecified site; E87.5 Hyperkalemia; Z79.01 Long term (current) use of anticoagulants; E78.5 Hyperlipidemia, unspecified; Z79.890 Hormone replacement therapy; Z79.899 Other long term (current) drug therapy; Z85.828 Personal history of other malignant neoplasm of skin; Z86.711 Personal history of pulmonary embolism; Z86.718 Personal history of other venous thrombosis and embolism; Z87.442 Personal history of urinary calculi; Z87.891 Personal history of nicotine dependence; Z87.19 Personal history of other diseases of the digestive system; G43.709 Chronic migraine without aura, not intractable, without status migrainosus; Z88.5 Allergy status to narcotic agent; Z88.8 Allergy status to other drugs, medicaments and biological substances; Z91.041 Radiographic dye allergy status; Z91.040 Latex allergy status; Z91.013 Allergy to seafood
CPT/HCPCS: 36415; 71046; 76770; 80048; 80053; 80202; 81001; 82570; 83036; 83605; 83735; 84300; 84540; 85025; 85652; 86140; 87040; 87070; 87075; 87205; 93005; 94640; 96360; 99285

== ENCOUNTER 2023-06-20 14:04 | Emergency (ER) | payer MEDICARE, BC ==
[2023-06-20] MEDS ORDERED: ACETAMINOPHEN TAB 500 MG TAB PO STA (14:30)
[2023-06-20 14:32] VITALS: RESP 18
--- NOTE | 2023-06-20 14:49 | CT ---
EXAMINATION TYPE: CT brain roberta king con DATE OF EXAM: 06/20/2023 COMPARISON: none HISTORY: fall CT DLP: 1449.[address] of the brain was performed. The ventricles, basal cisterns and sulci overlying the cerebral convexities demonstrate mild enlargem ent. There is no evidence for intracranial hemorrhage or sulcal effacement. There is decreased attenuatio n about the periventricular white matter and deep white matter of both cerebral hemispheres, compatib le with chronic small vessel ischemia. No mass effects are seen. If symptoms persist consider MRI. Osseous calvarium is intact. IMPRESSION: 1. Age related atrophic and chronic small vessel ischemic change without acute intracranial process seen at this time. CT Cervical Spine: Unenhanced CT of the cervical spine was performed with bone and soft tissue window settings submitted . Coronal and sagittal reconstruction is obtained. There is normal alignment and prevertebral soft tissues. No evidence for acute cervical fracture. S cattered degenerative disc disease and spondylosis. Biapical scarring. IMPRESSION: 1. No evidence for acute fracture or subluxation of the cervical spine.
--- NOTE | 2023-06-20 16:08 | ED ---
Head Injury HPI - General Chief complaint: Head Injury Stated complaint: fall Source: patient, EMS Mode of arrival: EMS - History of Present Illness Initial comments: 78-year-old male with past medical history of PE on Eliquis who presents to the emergency department for a fall. Patient was sitting in his wheelchair when he states that he fell asleep. He fell forward and hit his head. He denies losing consciousness. Denies any headaches or visual changes. Does have some neck pain and therefore arrives in a c-collar. He denies any numbness, tingling or weakness in his extremities. He denies injuries to any other body parts. No chest pain or shortness of breath. No pelvic pain. No extremity pain. No other alleviating, precipitating offering factors - Related Data Home Medications Medication Instructions Recorded Confirmed Atorvastatin [Lipitor] 10 mg PO DAILY@1700 10/04/17 06/20/23 Levothyroxine Sodium [Synthroid] 200 mcg PO DAILY@0600 10/20/19 06/20/23 Montelukast Sodium [Singulair] 10 mg PO HS 10/20/19 06/20/23 tiZANidine HCL [Zanaflex] 4 mg PO TID PRN 03/31/20 06/20/23 Omeprazole [PriLOSEC] 20 mg PO DAILY@0603/25/23 06/20/23 Fluticasone/Vilanterol [Breo 1 puff INHALATION RT-DAILY@0803/26/23 06/20/23 Ellipta 100-25 Mcg Inhaler] Acetaminophen [Tylenol 8 Hour] 650 mg PO Q4H PRN 05/23/23 06/20/23 Ferrous Sulfate [Iron] 325 mg PO DAILY@169905/23/23 06/20/23 Glucerna Shake 237 ml PO TID@0800,1200,1700 05/23/23 06/20/23 Loperamide [Imodium] 2 mg PO QID PRN 05/23/23 06/20/23 Magnesium Hydroxide [Milk of 30 ml PO Q48H PRN 05/23/23 06/20/23 Magnesia Concentrate] Midodrine [ProAmatine] 10 mg PO TID@0800,1200,1700 05/23/23 06/20/23 Na Phos,M-B/Na Phos,Di-Ba [Fleet 133 ml RECTAL DAILY PRN 05/23/23 06/20/23 Adult] Ondansetron [Zofran] 4 mg PO Q6H PRN 05/23/23 06/20/23 bisacodyL [Dulcolax] 10 mg RECTAL DAILY PRN 05/23/23 06/20/23 diphenhydrAMINE HCL [Benadryl] 25 mg PO Q6HR PRN 05/23/23 06/20/23 Apixaban [Eliquis] 2.5 mg PO BID@0800,1700 06/20/23 06/20/23 Medihoney 1 applic TOPICAL DAILY 06/20/23 06/20/23 Psyllium Husk 100% [Metamucil 6 gm PO BID@0800,1700 06/20/23 06/20/23 Packet] Testosterone Cypionate 200 mg IM Q14D 06/20/23 06/20/23 [Depo-Testosterone] Torsemide [Demadex] 40 mg PO DAILY@0800 06/20/23 06/20/23 Previous Rx's Medication Instructions Recorded Albuterol Sulfate [Ventolin HFA] 2 puff INHALATION RT-Q4H #0 07/07/22 HYDROcodone/APAP 5-325MG [[place] 1 tab PO Q6HR PRN #12 tab 05/29/23 5-325] Allergies/Adverse reactions: Allergies Allergy/AdvReac Type Severity Reaction Status Date / Time Iodinated Contrast Media Allergy Anaphylaxis Verified 06/20/23 15:08 iodine Allergy Anaphylaxis Verified 06/20/23 15:08 latex Allergy recent Verified 06/20/23 15:08 testing revealed allergen, no reported reactions yet shellfish derived Allergy Anaphylaxis Verified 06/20/23 15:08 shrimp Allergy Anaphylaxis Verified 06/20/23 15:08 tuna oil Allergy Unknown Verified 06/20/23 15:08 codeine AdvReac Rapid Verified 06/20/23 15:08 Heart Rate lisinopril AdvReac Cough Verified 06/20/23 15:08 Review of Systems ROS Statement: Those systems with pertinent positive or pertinent negative responses have been documented in the HPI. ROS Other: All systems not noted in ROS Statement are negative. Past Medical History Past Medical History: Asthma, Blood Disorder, Cancer, Diabetes Mellitus, Deep Vein Thrombosis (DVT), GERD/Reflux, GI Bleed, Hyperlipidemia, Hypertension, Osteoarthritis (OA), Pneumonia, Pulmonary Embolus (PE), Thyroid Disorder Additional Past Medical History / Comment(s): occular migraines, SOB with activity, hx cellulitis x 5, clotting disorder-Factor V- Leiden, basal cell skin ca(folicular), heart murmur, kidney stones, edema rt leg, History of Any Multi-Drug Resistant Organisms: MRSA Date of last positivie culture/infection: 03/31/23 MDRO Source:: Right Foot Past Surgical History: Cholecystectomy, Hernia Repair, Tonsillectomy Additional Past Surgical History / Comment(s): 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 Father Family Medical History: No Reported History Additional Family Medical History / Comment(s): age 72. General Exam General appearance: alert, in no apparent distress Head exam: Present: atraumatic, normocephalic, normal inspection Eye exam: Present: normal appearance, PERRL, EOMI. Absent: scleral icterus, conjunctival injection, periorbital swelling ENT exam: Present: normal exam, mucous membranes moist Neck exam: Present: normal inspection. Absent: tenderness, meningismus, lymphadenopathy Respiratory exam: Present: normal lung sounds bilaterally. Absent: respiratory distress, wheezes, rales, rhonchi, stridor Cardiovascular Exam: Present: regular rate, normal rhythm, normal heart sounds. Absent: systolic murmur, diastolic murmur, rubs, gallop, clicks GI/Abdominal exam: Present: soft, normal bowel sounds. Absent: distended, tenderness, guarding, rebound, rigid Extremities exam: Present: normal inspection, full ROM, normal capillary refill. Absent: tenderness, pedal edema, joint swelling, calf tenderness Back exam: Present: normal inspection Neurological exam: Present: alert, oriented X3, CN II-XII intact Psychiatric exam: Present: normal affect, normal mood Skin exam: Present: warm, dry, intact, normal color. Absent: rash Course Vital Signs 06/20/23 06/20/23 06/20/23 14:05 15:13 16:51 Temperature 97.4 F L 98.2 F Pulse Rate 67 66 67 Respiratory 18 18 18 Rate Blood Pressure 126/77 123/73 120/65 O2 Sat by Pulse 95 95 94 L Oximetry Medical Decision Making - Medical Decision Making Was pt. sent in by a medical professional or institution (, DARNELL, CRYSTAL FINISHER, urgent care, hospital, or residential...) When possible be specific @ -Patient was sent in from [facility] Did you speak to anyone other than the patient for history (EMS, parent, family, police, friend...)? What history was obtained from this source @ -EMS Did you review nursing and triage notes (agree or disagree)? Why? @ -I reviewed and agree with nursing and triage notes Were old charts reviewed (outside hosp., previous admission, EMS record, old EKG, old radiological studies, urgent care reports/EKG's, residential records)? Report findings @ -I reviewed patient's transfer packet from [facility] Differential Diagnosis (chest pain, altered mental status, abdominal pain women, abdominal pain men, vaginal bleeding, weakness, fever, dyspnea, syncope, headache, dizziness, GI bleed, back pain, seizure, CVA, palpatations, mental health, musculoskeletal)? @ -Subdural, subarachnoid, cervical fracture EKG interpreted by me (3pts min.). @ -Yes and demonstrates a flutter with a rate of 61. QRS 113. QTC of 457. No acute ST segment elevations or depressions X-rays interpreted by me (1pt min.). @ -None done CT interpreted by me (1pt min.). @ -Yes and demonstrates no acute intracranial process U/S interpreted by me (1pt. min.). @ -None done What testing was considered but not performed or refused? (CT, X-rays, U/S, labs)? Why? @ -None What meds were considered but not given or refused? Why? @ -None Did you discuss the management of the patient with other professionals (deana rosas i.e. DARNELL Adam, CRYSTAL FINISHER, lab, RT, psych nurse, social sciences research scientist, dramatic coach, teacher, chairman and chief executive officer, community case manager)? Give summary @ -No Was smoking cessation discussed for >3mins.? @ -No Was critical care preformed (if so, how long)? @ -No Were there social determinants of health that impacted care today? How? (Homelessness, low income, unemployed, alcoholism, drug addiction, transportation, low edu. Level, literacy, decrease access to med. care, half-way, rehab)? @ -No Was there de-escalation of care discussed even if they declined (Discuss DNR or withdrawal of care, Hospice)? DNR status @ -No What co-morbidities impacted this encounter? (DM, HTN, Smoking, COPD, CAD, Cancer, CVA, ARF, Chemo, Hep., AIDS, mental health diagnosis, sleep apnea, morbid obesity)? @ -Asthma Was patient admitted / discharged? Hospital course, mention meds given and route, prescriptions, significant lab abnormalities, going to OR and other pertinent info. @ -Upon arrival patient was placed into room 6. thorough history and physical exam was performed. He is alert and oriented. He is answering questions appropriate. CT of the brain and cervical spine is performed which demonstrates no acute intracranial process. No cervical fractures. I did remove the patient's collar and he does have improvement in his neck stiffness with removal. EKG had been completed which demonstrates atrial fibrillation. Is not reported the patient's history however during his last hospitalization his EKG did demonstrate A. fib is arty anticoagulated and his rate is controlled. I am informed that the patient tested positive for Covid. He does have asthma however he denies any respiratory complaints at this time. Patient will be sent back to [facility] at this time. If he has any new or worsening symptoms he should return to the emergency department. Patient agreeable with the plan and he was discharged in stable condition Undiagnosed new problem with uncertain prognosis? @ -No Drug Therapy requiring intensive monitoring for toxicity (Heparin, Nitro, Insulin, Cardizem)? @ -No Were any procedures done? @ -No Diagnosis/symptom? @ -Acute fall from chair, Eliquis coagulopathy blunt head trauma, a flutter Acute, or Chronic, or Acute on Chronic? @ -Acute Uncomplicated (without systemic symptoms) or Complicated (systemic symptoms)? @ -complicated Side effects of treatment? @ -No Exacerbation, Progression, or Severe Exacerbation? @ -No Poses a threat to life or bodily function? How? (Chest pain, [place], [place], pneumonia, PE, COPD, DKA, ARF, appy, cholecystitis, CVA, Diverticulitis, Homicidal, Suicidal, threat to staff... and all critical care pts) @ -No Disposition Clinical Impression: Fall, Blunt head injury, Atrial flutter Disposition: HOME SELF-CARE Condition: Stable Instructions (If sedation given, give patient instructions): Head Injury (ED) Is patient prescribed a controlled substance at d/c from ED?: No Referrals: Jean Levine DO [Primary Care Provider] - 1-2 days Time of Disposition: 16:30
--- NOTE | 2023-06-20 16:18 | XR ---
EXAMINATION TYPE: XR chest 1V portable DATE OF EXAM: 06/20/2023 HISTORY: Shortness of breath. COMPARISON: 05/24/2023 TECHNIQUE: Single view of the chest is submitted. FINDINGS: Demonstrated are scattered senescent parenchymal change. Patchy perihilar and basilar infiltrates persist with small effusions noted right greater than left. The findings may reflect congestive failure however infiltrates of other etiology not excluded. Corre late clinically and progress studies are advised. The heart is stable. Hilar and mediastinal structures are within normal limits. Degenerative changes are seen of the dorsal spine. IMPRESSION: 1. Patchy perihilar and basilar infiltrates persist with small effusions noted right greater than le ft. The findings may reflect congestive failure however infiltrates of other etiology not excluded. C orrelate clinically and progress studies are advised..
[2023-06-20 17:08] VITALS: BP 120/65; PULSE 67; TEMP 98.2
== END 2023-06-20 16:55 | disposition home or self-care (01) ==
LOC: EC 14:04
DX: S09.90XA Unspecified injury of head, initial encounter (principal); I48.92 Unspecified atrial flutter; J45.909 Unspecified asthma, uncomplicated; E11.9 Type 2 diabetes mellitus without complications; I10 Essential (primary) hypertension; E78.5 Hyperlipidemia, unspecified; K21.9 Gastro-esophageal reflux disease without esophagitis; M19.90 Unspecified osteoarthritis, unspecified site; E07.9 Disorder of thyroid, unspecified; Z86.718 Personal history of other venous thrombosis and embolism; Z87.891 Personal history of nicotine dependence; Z88.5 Allergy status to narcotic agent; Z88.8 Allergy status to other drugs, medicaments and biological substances; Z91.040 Latex allergy status; Z91.013 Allergy to seafood; Z91.041 Radiographic dye allergy status; Z79.890 Hormone replacement therapy; Z79.01 Long term (current) use of anticoagulants; Z79.899 Other long term (current) drug therapy; W05.0XXA Fall from non-moving wheelchair, initial encounter
CPT/HCPCS: 70450; 71045; 72125; 99285

== ENCOUNTER → 2023-12-31 | Outpatient (CLI) | payer MEDICARE, BC, OTHER ==
[2023-12-31 19:27] LABS: Basophils # (A) 0.07 X 10*3/uL (0.00-0.10); Basophils % (A) 0.9 %; Eosinophils # (A) 0.45 X 10*3/uL (0.04-0.35); Eosinophils % (A) 5.8 %; HCT 37.2 % (39.6-50.0); HGB 11.9 g/dL (13.0-17.0); MCH 28.9 pg (27.0-32.0); MCV 90.3 FL (80.0-97.0); Mean Platelet Volume 10.2 FL (9.5-12.2); Monocytes # (A) 0.68 X 10*3/uL (0.20-1.00); Monocytes % (A) 8.8 %; NRBC Per 100 WBC 0 X 10*3/uL (0.00-0.01); Neutrophils # (A) 5.47 X 10*3/uL (1.80-7.70); Platelet Count 219 X 10*3/uL (140-440); RBC 4.12 X 10*6/uL (4.40-5.60); RDW 15.7 % (11.5-14.5); WBC 7.71 X 10*3/uL (4.50-10.00)
[2023-12-31 20:55] LABS: ALT 16 U/L (10-49); AST 17 U/L (14-35); Albumin 3.9 g/dL (3.8-4.9); Albumin/Globulin Ratio 1.15 Ratio (1.60-3.17); Alkaline Phosphatase 213 U/L (41-126); BUN/Creat Ratio 21.67 Ratio (12.00-20.00); Blood Urea Nitrogen 19.5 mg/dL (9.0-27.0); Calcium 9.5 mg/dL (8.7-10.3); Carbon Dioxide 23.7 mmol/L (21.6-31.8); Chloride 106 mmol/L (96-109); Globulin 3.4 g/dL (1.6-3.3); Glucose 106 mg/dL (70-110); Potassium 4.6 mmol/L (3.5-5.5); Sodium 141 mmol/L (135-145); Total Bilirubin 0.4 mg/dL (0.3-1.2); Total Protein 7.3 g/dL (6.2-8.2)
== END | disposition home or self-care (01) ==
LOC: LABWHC1 14:18
PROVIDERS: ATTEND Family Medicine
DX: I10 Essential (primary) hypertension (principal); I35.0 Nonrheumatic aortic (valve) stenosis; E11.9 Type 2 diabetes mellitus without complications; E03.9 Hypothyroidism, unspecified; E29.1 Testicular hypofunction; J45.909 Unspecified asthma, uncomplicated; Z86.11 Personal history of tuberculosis
CPT/HCPCS: 36415; 80053; 82306; 82607; 83036; 84403; 84439; 84443; 85025

== ENCOUNTER → 2024-02-26 | Outpatient (CLI) | payer MEDICARE, BC, OTHER ==
--- NOTE | 2024-02-26 15:30 | XR ---
EXAMINATION TYPE: XR wrist limited RT DATE OF EXAM: 02/26/2024 COMPARISON: 11/01/2023 HISTORY: Pain TECHNIQUE: Four views submitted. FINDINGS: Diffuse demineralization. Vascular calcifications. There is a narrowing of the radiocarpal joint. The re is moderate narrowing of the first MCP joint mild widening of the scapholunate joint. Findings are similar to prior exam. There is [id number] first carpometacarpal joint arthropathy. IMPRESSION: 1. Generalized demineralization with arthropathy in a pattern suggestive of osteoarthritis.
[2024-02-26 19:09] LABS: Chol/HDL Ratio 2.64 Ratio
== END | disposition home or self-care (01) ==
LOC: RADXRMAIN 14:31
PROVIDERS: ATTEND Family Medicine
DX: M25.531 Pain in right wrist (principal); E78.00 Pure hypercholesterolemia, unspecified
CPT/HCPCS: 80061